=== PATIENT | male | born 1945 | race Caucasian/White ===

== ENCOUNTER → 2017-09-01 11:40 | Outpatient (CLI) | payer MEDICARE, OTHER, SELFPAY ==
--- NOTE | 2017-09-01 11:44 | RAD_ITS ---
STUDY: X-RAY - SACROILIAC JOINTS REASON FOR EXAM: Male, 71 years old. Pain TECHNIQUE: 3 view(s) of the sacroiliac joints were obtained. COMPARISON: None. FINDINGS: Normal bilateral sacroiliac joints. Normal visualized sacral ala and sacrum. Normal visualized iliac bones. Normal visualized soft tissue structures. RAD/S-I Jts 3 or More Views IMPRESSION: Normal x-ray examination of the bilateral sacroiliac joints. Electronically Signed: Olivier Dugan DO at 23:57 EDT , Service support ,
--- NOTE | 2017-09-01 11:44 | RAD_ITS ---
STUDY: X-RAY - PELVIS AND LEFT HIP REASON FOR EXAM: Male, 71 years old. Pain TECHNIQUE: Radiological exam, hip, unilateral, with pelvis when performed; 2 or 3 views. COMPARISON: None. FINDINGS: There is a non-specific bowel gas pattern. Normal visualized soft tissue structures. Normal bilateral iliac wings, sacroiliac joints and visualized sacrum. Normal bilateral superior and inferior pubic rami. Normal pubic symphysis. Normal bilateral ischial tuberosities. Normal visualized femoral head. Normal acetabulum. Normal hip joint. RAD/Hip 2-3 Views with Pelvis IMPRESSION: Normal x-ray examination of the pelvis and hip. Electronically Signed: Olivier Dugan DO at 23:55 EDT , Service support ,
--- NOTE | 2017-09-01 11:44 | RAD_ITS ---
STUDY: X-RAY - LUMBAR SPINE REASON FOR EXAM: Male, 71 years old. Pain TECHNIQUE: 5 view(s) of the lumbar spine were obtained. COMPARISON: MRI 03/04/2017 FINDINGS: Normal lumbar lordosis. There is no substantial scoliosis. There is a normal alignment of the vertebrae. Normal vertebral bodies and endplates. Degenerative disc disease L5-S1. Posterior bilateral pedicle screws at L5-S1. The soft tissue structures are unremarkable. RAD/L/S Spine Min 4 Views IMPRESSION: No fracture. Normal lordosis. Degenerative disc disease L5-S1. Electronically Signed: Olivier Dugan DO at 23:58 EDT , Service support ,
== END ==
PROVIDERS: Family Provider Internal Medicine; PCP Internal Medicine; Visit Provider Internal Medicine
DX: M53.3 Sacrococcygeal disorders, not elsewhere classified (principal); M48.062 Spinal stenosis, lumbar region with neurogenic claudication; M51.37 Other intervertebral disc degeneration, lumbosacral region; M25.552 Pain in left hip
CPT/HCPCS: 71130; 72110; 72202; 73502

== ENCOUNTER → 2017-12-27 09:00 | Outpatient (CLI) | payer MEDICARE, OTHER, SELFPAY ==
[2017-12-27 10:00] LABS: AST(SGOT) 25 U/L (15-37); Alanine Aminotransfer ALT/SGPT 40 U/L (16-61); Alkaline Phosphatase 80 U/L (45-117); Bilirubin, Direct 0.16 mg/dL (0.00-0.30); Cholesterol 150 mg/dL (200); Globulin 3.5 g/dL (2.2-4.2); High Density Lipoprotein 60 mg/dL; Protein, Total 7.5 g/dL (6.4-8.2); Triglycerides 128 mg/dL; Very Low Density Lipoprotein 26 mg/dL (5-40)
== END ==
PROVIDERS: Family Provider Internal Medicine; PCP Internal Medicine; Visit Provider Nurse Practitioner Family
DX: E78.5 Hyperlipidemia, unspecified (principal); I25.111 Atherosclerotic heart disease of native coronary artery with angina pectoris with documented spasm
CPT/HCPCS: 36415; 80061; 80076

== ENCOUNTER → 2018-05-31 06:51 | Outpatient (CLI) | payer MEDICARE, OTHER, SELFPAY ==
--- NOTE | 2018-05-31 10:29 | STRESSREP ---
Stress Test Report Pharmacologic myocardial perfusion stress test. 72-year-old man with a history of coronary artery disease status post angioplasty and stenting 15 years ago. Medications: Metoprolol rosuvastatin fosinopril amlodipine baby aspirin. Stress protocol: Resting EKG demonstrates normal sinus rhythm with a rate of 72 bpm normal intervals are noted resting blood pressure is 154/84 mmHg. 0.4 mg of regadenoson was infused per usual protocol followed by rapid intravenous saline flush injection continuous EKG monitoring was performed. The maximum heart rate attained was 102 bpm which was 68% of maximum predicted heart rate the maximum workload was 1 metabolic equivalent. There were no ST or T wave changes noted to suggest abnormal flow reserve. Resting blood pressure was 154/84 final blood pressure was 150/80 mmHg. Myocardial perfusion protocol. 12.0 mCi of technetium 99m sestamibi was injected at rest. 0.4 mg of regadenoson was infused per usual protocol. At peak infusion 34.6 mCi of technetium 99m sestamibi was injected stress images were obtained stress and rest images were reconstructed and compared in the short axis vertical long and horizontal long axis. Gated images were also obtained Perfusion SPECT analysis: Review of the stress images demonstrate normal uptake of tracer noted in all areas of the myocardium. The resting images similarly demonstrate normal uptake of tracer noted in all areas of the myocardium. No areas of reversibility are noted suggest ischemia no previous infarct is noted. Gated SPECT analysis: The gated ejection fraction is noted to be 70%. Conclusion: Normal pharmacologic myocardial perfusion stress test. Preserved ejection fraction.
--- OUTSIDE RECORDS SUMMARY | 2018-09-01 11:26 | XMS RPT_ITS | Continuity of Care Document ---
:1945 Author Organization [facility] Address [address] [place] [address] Phone Care Team Providers Name Role Phone Angela Murphy DO Unavailable Pauline Beltran Unavailable Unavailable GEORGE Miranda Unavailable Unavailable Chelsey Duckworth Unavailable Unavailable Unavailable Unavailable Problems Name Dates Details Annual Medicare Physical WITH abnormal findings (Renamed from Encounter for general adult medical examination with abnormal findings) (Z00.01, V70.0) Status: Active back sx Comments: 07/23 Status: Active BMI 25.0-25.9,adult (Z68.25, V85.21) Status: Active BMI 26.0-26.9,adult (Z68.26, V85.22) Status: Active BMI 30.0-30.9,adult (Z68.30, V85.30) Status: Active CLAUDICATION Comments: from lumbar- had mri- did PT Status: Active Coronary artery disease (I25.10, 414.00) Status: Active Degenerative lumbar spinal stenosis (M48.061, 724.02) Status: Active Displacement of lumbar intervertebral disc without myelopathy (M51.26, 722.10) Status: Active Dysuria (R30.0, 788.1) Status: Active Encounter for Medicare annual wellness exam (Z00.00, V70.0) Status: Active Encounter for screening for malignant neoplasm of colon (Renamed from Special screening for malignant neoplasms, colon) (Z12.11, V76.51) Comments: scope 2014-- no cologard this yr with upcoming back surgery -- will do stool cards Status: Active Exhaustion (R53.83, 780.79) Comments: stress ? chronic pain?- cv related? 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) Status: Active Heliobactor Pylori + Status: Active Hip pain, left (M25.552, 719.45) Status: Active History of myocardial infarction (I25.2, 412) Comments: 2002-- then stent placmeent 2003 Status: Active History of tobacco abuse (Z87.891, V15.82) Comments: 30 yr history with 1.5 packs a day Status: Active Hyperlipidemia, unspecified (E78.5, 272.4) Status: Active Hypertension with heart disease (I11.9, 402.90) Status: Active Immunization Hx: DTAP 10/22/08 (Renamed from DTAP 10/22/08) Status: Active Low back pain potentially associated with radiculopathy (M54.5, 724.2) Status: Active Lumbar stenosis with neurogenic claudication (M48.062, 724.03) Comments: s/p discetomy and fusion by Dr Vera-- plates and screwsclinically i feel he has failed back surgery -- refer to renea which dr Vera already did(08/29)-- complicated by claudication from common iliac s --- so not sure all- failed back surgery?-- candidate for block?-- and would that block pain from all-types of pain not just nerve and MS etiology from back but also vasucular Status: Active Memory impairment (R41.3, 780.93) Comments: no meds to start prior to surgery so will do nutrition and read BYB book Status: Active Need for prophylactic vaccination and inoculation against influenza (Renamed from Need for immunization against influenza) (Z23, V04.81) Status: Active Non-smoker (Z78.9, V49.89) Status: Active Other intervertebral disc degeneration, lumbar region (M51.36, 722.52) Status: Active Other symptoms involving cardiovascular system (R09.89, 785.9) Comments: asa daily and cta is ok nonivnasive and risk factor following Status: Active Peripheral vascular disease (I73.9, 443.9) Comments: h/o fem/ fem bypass but no stenoiss - saw dr cooper 2017--- fem fem grafts open-- common iliacs occluded adn buttock area is getting flow from collaterals in fem area -- left sided buttock pain is prob claudication but didnt tolerate pletal and didnt affect pain clinically anyway so rec to stop it - no surgical intervention options at this time-- palpable pulses -- Amauri following--dr baugh following carotids as well Status: Active Pre-operative exam (Renamed from Encounter for pre-operative examination) (Z01.818, V72.84) Comments: requested by Dr Vera Status: Active Sacroiliac pain (M53.3, 724.6) Status: Active Screening for prostate cancer (Z12.5, V76.44) Status: Active Sebaceous cyst (L72.3, 706.2) Status: Active SLEEP DISORDER, NOS (307.40) Status: Active Unspecified Diagnosis Status: Active Unspecified Diagnosis Status: Active VASCULAR DISEASE, NOS (459.9) Comments: last carotids 01/25 Status: Active Medications Name Dates Details AMLODIPINE BESYLATE, 10MG (Oral Tablet) 1 Tablet bid for 90 days Refills: 0 Ordered:23-May-2012 Earl Murphy DO, DO, Kathleen Start : 23-May-2012 Active Aspirin 81 MG Oral Tablet Chewable 1 daily (81 MG) Active Fosinopril Sodium 20 MG Oral Tablet 1 qd (20 MG) Active Gabapentin 600 MG Oral Tablet 1 (one) Tablet tid for 0 days Quantity: 90 {Tablet} Refills: 2 Ordered:13-May-2017 Earl Murphy DO, DO, Kathleen Start : 13-May-2017 Active Comments:ninetyusually gets from [facility] Metoprolol Tartrate 25 MG Oral Tablet 1 bid (25 MG) Active Multivitamin Adult Oral Tablet Chewable 1 daily Active Rosuvastatin Calcium 10 MG Oral Tablet 1 qd (10 MG) Active ALTACE, 2.5MG (Oral Capsule) 1 QD for 0 days Refills: 0 Ordered:14-Nov-2007 Lori Amos End : 07-Apr-2007 Inactive BIAXIN XL, 500MG (Oral Tablet Extended Release 24 Hour) 2 (two) Tablet ER 24HR Daily for 7 days Quantity: 14 {Tablet_ER_24HR} Refills: 0 Ordered:14-Oct-2006 Lori Amos Start : 14-Oct-2006 End : 01-Mar-2007 Inactive CEFDINIR, 300MG (Oral Capsule) 1 (one) Capsule bid for 7 days Quantity: 14 {Capsule} Refills: 0 Ordered:12-Oct-2014 Earl Murphy DO, DO, Kathleen Start : 12-Oct-2014 End : 19-Oct-2014 Inactive Cipro 500 MG Oral Tablet 1 (one) Tablet bid for 14 days Quantity: 28 {Tablet} Refills: 0 Ordered:30-Dec-2015 Earl Murphy DO, DO, Kathleen Start : 30-Dec-2015 End : 13-Jan-2016 Inactive Crestor 10 MG Oral Tablet 1 Tablet QD for 0 days Refills: 0 Ordered:26-May-2018 Pauline Beltran Start : 04-Jun-2008 End : 26-May-2018 Inactive DOXYCYCLINE HYCLATE, 100MG (Oral Capsule) 1 (one) Capsule bid for 14 days Quantity: 28 {Capsule} Refills: 0 Ordered:07-Feb-2009 Julia MCKENZIE Noris Hurtado Start : 07-Feb-2009 End : 26-Mar-2009 Inactive FLECTOR, 1.3% (Transdermal Patch) 1 Patch on 12 hrs off 12 for 4 days Refills: 0 Ordered:04-Nov-2011 Julia MCKENZIE Noris Hurtado Start : 30-Oct-2011 End : 03-Nov-2011 Inactive FOSINOPRIL SODIUM, 10MG (Oral Tablet) 1 qd for 0 days Refills: 0 Ordered:23-May-2012 Franchesca Miranda LPN End : 23-May-2012 Inactive LEVAQUIN, 500MG (Oral Tablet) 1 Tablet qd for 11 days Quantity: 11 {Tablet} Refills: 0 Ordered:16-Sep-2009 Earl Murphy DO, DO, Kathleen Start : 16-Sep-2009 End : 27-Sep-2009 Inactive MEDROL (LUIS EDUARDO), 4MG (Oral Tablet) 1 Tablet TAD for 0 days Quantity: 1 {Package(s)} Refills: 0 Ordered:10-Nov-2011 Stephania Reed LPN Start : 26-Oct-2011 End : 10-Nov-2011 Inactive Comments:wean 28mg to 4mg over 7days NAPROSYN, 500MG (Oral Tablet) 1 (one) Tablet BID for 0 days Quantity: 60 {Tablet} Refills: 3 Ordered:23-May-2012 Franchesca Miranda LPN Start : 10-Nov-2011 End : 23-May-2012 Inactive Comments:with food PredniSONE 20 MG Oral Tablet 1 (one) Tablet qd for 0 days Quantity: 30 {Tablet} Refills: 0 Ordered:24-Nov-2016 Chelsey Duckworth Start : 21-Oct-2016 End : 24-Nov-2016 Inactive TEMAZEPAM, 15MG (Oral Capsule) 1 (one) Capsule QHS / HS for 0 days Quantity: 30 {Capsule} Refills: 3 Ordered:14-Nov-2007 Franchesca Miranda LPN Start : 14-Nov-2007 End : 22-Oct-2008 Inactive VICODIN ES, 7.5-750MG (Oral Tablet) 1 Tablet q8hrs prn pain for 0 days Quantity: 30 {Tablet} Refills: 0 Ordered:23-May-2012 Franchesca Miranda LPN Start : 30-Oct-2011 End : 23-May-2012 Inactive Comments:thirty ZETIA, 10MG (Oral Tablet) 1 QD for 0 days Refills: 0 Ordered:16-May-2008 Franchesca Miranda LPN End : 16-May-2008 Inactive FEXOFENADINE HCL, 180MG (Oral Tablet) 1 (one) Tablet Daily for 0 days Refills: 0 Ordered:14-Nov-2007 Lori Amos Start : 14-Oct-2006 End : 07-Apr-2007 Discontinued Lisinopril 20 MG Oral Tablet 1 Tablet qd for 90 days Refills: 0 Ordered:26-May-2018 Pauline Beltran Start : 23-May-2012 End : 26-May-2018 Discontinued LORazepam 1 MG Oral Tablet 1 (one) Tablet Tablet one hour prior to imaginig for 0 days Quantity: 1 {Tablet} Refills: 0 Ordered:26-May-2018 Pauline Beltran Start : 26-Feb-2017 End : 26-May-2018 Discontinued Comments:one PROCARDIA, 20MG (Oral Capsule) 1 1/2 Capsule QD for 0 days Refills: 0 Ordered:14-Nov-2007 Lori Amos Start : 07-Apr-2007 End : 07-Apr-2007 Discontinued Allergies and Adverse Reactions Name Dates Details No Known Drug Allergies (Allergy) Onset: 23-May-2012 Status: Active Tiazac (Allergy) Status: Active Comments: cough Past Medical History Name Dates Details Abnormal urine (R82.90, 791.9) Status: Inactive as of 15-Jan-2016 Acute prostatitis (N41.0, 601.0) Status: Inactive as of 15-Jan-2016 ANEURYSM, NOS (442.9) Comments: inter atrial septum with trivial rt to lt inter atrial shunt, possible PFO Status: Inactive as of 15-Jan-2016 Cough (R05, 786.2) Comments: Considering all differentials- denies heartburn or postnasal- considering possible allergies d/t the season, bronchitis but generally feels feels well and it is not bothering his sleep. Is on an Reed and will need to consider if persists, no asthma symtpoms- cough is not worse at noc. If persists pt to return.Pt also notes throat discomfort with cough if not better after cough pt to return for further evaluation.Only to take script if worsen over the weekend. Status: Inactive as of 22-Oct-2008 Fatigue (R53.83, 780.79) Comments: prob related to sleep deprivation -- Status: Resolved as of 22-Oct-2008 Folliculitis (L73.9, 704.8) Status: Inactive as of 15-Jan-2016 Gastritis, acute (K29.00, 535.00) Comments: Chronic, interactive3 metaplasia on biopsy Status: Inactive as of 15-Jan-2016 Heel pain (M79.673, 729.5) Status: Inactive as of 15-Jan-2016 Hematuria (R31.9, 599.7) Status: Inactive as of 22-Oct-2008 MYOCARDIAL INFARCTION, NOS (410.90) Comments: Non Q wave Status: Inactive as of 15-Jan-2016 Neoplasm of uncertain behavior of skin (D48.5, 238.2) Status: Inactive as of 15-Jan-2016 Pain in unspecified hip (M25.559, 719.45) Comments: edema in femoral neck, small joint effusion/transient osteoporosis,sending to [facility] Status: Inactive as of 15-Jan-2016 Pain of left lower extremity (M79.605, 729.5) Status: Resolved as of 13-May-2017 Peptic ulcer disease (K27.9, 533.90) Status: Inactive as of 28-Jan-2015 PROSTATITIS NOS (601.9) Status: Inactive as of 15-Jan-2016 Procedures Procedure Dates Details Back sx Completed Comments: Date Value Details 06-Jan-2018 Cardiology Visit Report Result: Comments: See Note; NOTES: [facility] [address] [place] [address] OFFICE VISIT Date of Service: 01/06/18 MR#: [id number] Acct: [id number] Name: KAREN BRYAN Rep #: [id number] : 1945 Provider: Mau Palencia MD Age/Sex: 72/M Location: [facility] Status: Signed HPI HPI Chief Complaint: Routine f/u Details: MERRICK BRYAN, is a 72 M who is returnin g for followup of his coronary artery disease status post angioplasty and drug- eluting stenting of his diagonal with a 2.5 X12 taxus, at [facility] on 09/21/03, with associated documente d coronary vasospasm. his remaining coronary arteries appear to be free of significant disease. Since his last visit Mr. Bryan has had no chest, neck, jaw, or arm discomfort to suggest angina, inc rease in shortness of breath or dyspnea on exertion, paroxysmal nocturnal dyspnea, orthopnea, or pedal edema, palpitations, near syncope, or syncope.His anginal equivalent is actually bilateral arm pain below his elbows, knees had none of this. patient underwent a sleep study previously, which was abnormal for ALTHEA. The patient has been using his CPAP however over the last several months it appears hi s headgear is no longer fitting as well. Unfortunately, he is no longer using it. In April 2013, the patient underwent a treadmill/echocardiogram in which he went 7 minutes 52 seconds on a regular B ruce, had no angina, EKG or echocardiographic changes consistent with ischemia. In addition his main complaint today is left lower extremity claudication symptoms, [facility] well as Dr. Baugh at [facility]. In 1998 the patient apparently underwent what sounds like an right to left fem-fem bypass, although I do not have those records in front of me. Patient has an appointment with Dr. Baugh on 05/31/2015 to evaluate this with a CT scan. Patient saw Dr. Baugh had a CT scan of his lower extremities, and no plans for any catheterizatio n at this time. From a cardiac standpoint, he denies any exertional chest pain, angina or shortness of breath. He is taking and tolerating his medicines well. he appears to be tolerating his Lipitor we ll. He exercises regularly mostly by swimming in the summertime. Patient's main complaint today is recurrent lower extremity claudication symptoms. In August 2017 he underwent PVRs at an outside [facility], and was referred to the [facility] for repeat lower extremity angiography. He underwent a lower extremity angiography and no intervention was performed. Prior to that the patient has had 2 back surgeries for presumed pinched nerve, neither one of which have resolved his symptoms. The patient does not have pain when he sits down or stands up, but develops lower extremity claudication symptoms similar to but of lesser intensity to his claudication prior to his femorofemoral bypass. He has not seen Dr. Baugh or Dr. Tamayo in the recent past. In addition he complains of significant tiredness throughout the da y. In our office today's blood pressure is 100/50, and pulse is 60 and regular. His physical exam is as below. His lipids as of 06/22/15 show an HDL of 51 and LDL of 59. His lipids as of 06/30/17 show an HDL of 57 and an LDL of 56. His lipids as of 12/27/17 show an HDL of 60 and an LDL of 60 Intake Vital Signs01/06/18 Height 5 ft 10 in 01/06/18 Weight: 174 lb 01/06/18 Body Mass Index (BMI) 25.0 8 Blood Pressure 100/50 Intake Visit Reasons: 6 M FU Allergies atorvastatin [From Lipitor] Adverse Reaction (Intermediate, Verified 01/06/18 15:14) Myalgias Medications Amlodipine [Norvasc] 5 mg P O BID 11/03/17 [History Confirmed 01/06/18] Colestipol Tablet [Colestid Tablet] 1 gm PO DAILY 04/16/17 [History Confirmed 01/06/18] Fosinopril Sodium 20 mg PO DAILY 04/16/17 [History Confirmed 01/06/18] Gabapentin [Neurontin] 600 mg PO QHS 04/16/17 [History Confirmed 01/06/18] Multivitamin [Daily Multiple Vitamin] DAILY 04/16/17 [History Confirmed 01/06/18] Rosuvastatin Calcium [Crestor] 10 mg PO QHS 04/16/17 [History Confirmed 01/06/18] nitroglycerin 0.4 mg sublingual tablet 0.4 mg SUBLINGUAL Q5-15M PRN 07/02/17 [History Confirmed 01/06/18] aspirin 81 mg tablet,delayed release 81 mg PO QDAY 8 [History Confirmed 01/06/18] cilostazol 100 mg tablet 100 mg PO BID #60 tab 01/06/18 [Rx Confirmed 01/06/18] metoprolol tartrate 25 mg tablet 12.5 mg PO BID tab 01/06/18 [History Confirmed 01/06/18] [facility] Medical History Peripheral arterial disease (Chronic) History of non-ST elevation myocardial infarction (NSTEMI) (Chronic) Prinzmetal angina (Chronic) A therosclerotic heart disease of andreafski 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) Hypertension (Chronic) Hyperlipidemia (Chronic) Overweight (BMI 25.0-29.9) (Chronic) Chronic b ack pain (Chronic) Lumbar stenosis (Chronic) Surgical History S/P femoral-femoral bypass surgery (Chronic) History of left heart catheterization (Chronic) Family History Father , of cancer Myocardial infarction, Onset Age: 70 Cancer Mother , age 66 Bleeding in brain due to brain aneurysm Broth er Myocardial infarction, Onset Age: 62 CAD (coronary artery disease) Social History Smoking Status: Former smoker how long ago did patient quit smokin ROS Const Const: Negative for fatig ue, weakness, body ache, fever(s), headache(s), chills, frequent falls, night sweats, daytime sleepiness, difficulty sleeping, excessive sweating, weight gain, weight loss, increased appetite, poor appe tite, anorexia or other Eyes Eyes: Negative for blind spots, loss of peripheral vision, transient loss of vision, blurry vision, change in vision, double vision, floaters, tunnel vision or other ENT ENT : Negative for headache(s), dizziness, hearing loss, tinnitus, Nosebleed/epistaxis, balance problems, post nasal drip, lip swelling, tongue swelling, bleeding gums, hoarseness, neck pain, dry mouth or o ther Cardio Chest Pain: No Palpitations: No Edema: None Muscle aches with walking: Bilateral (Hx Hx FEM/FEM bypass, PAD, seeing pain management) Resp Respiratory: Negative for SOB with activity, SOB at rest, SOB orthopnea\SOB lying down, Coughing up blood/hemoptysis, chest congestion, pain on inspiration, snoring, stridor, wheezing, crackles, paroxysmal nocturnal dyspnea or other GI GI: Negative nause a, vomiting, heartburn, constipation, belching, bloating, cramping, vomiting blood/hematemesis, bright, red blood in stools, black,tarry stools, loose stools, Difficulty Swallowing or other : Negat mary for hematuria, frequent nighttime urination/ nocturia, erectile dysfunction or abnormal vaginal bleeding Musc Musc: Positive for muscle aches/ myalgia (leg aches with walking, severe); negative for balance problems, muscle weakness or joint pain Skin Skin: Negative redness, non- healing lesions, rash, unusual bruising, skin ulcer, wounds, jaundice or other Neuro Neuro: Negative for weakness, headac he(s), frequent falls, blurry vision, double vision, dizziness, lightheadedness, near syncope, syncope, orthostatic symptoms, confusion, memory loss, restless legs, vertigo, seizures, lack of coordinati on or other Artie Hematologic/Lymphatic: Negative for easy bleeding, easy bruising, enlarged lymph nodes or other Endo Endo: Negative for fatigue, excessive sweating, cold intolerance, heat intolerance, flushing, increased thirst/drinking, increased hunger, hair loss, hair growth or other Psych Psych: Negative for anxiety, depression, thoughts of harming anyone, thoughts of harming yourself, visual vandana lucinations, panic attacks or audible hallucinations Allergy Allergy/Immunology: Negative for lip swelling, Negative for tongue swelling, Negative for rash, Negative for throat swelling, Negative for hi ves Cardiology Exam Const Appearance: cooperative, healthy appearing and no acute distress Nutritional Appearance: well nourished Orientation: alert, oriented x3 and oriented to person Head Head: norm al to inspection, atraumatic and normocephalic Nose: external nose normal Face and Sinus: face symmetric Mouth: oral mucosae normal Eyes General: appearance normal, both eyes and all related structures Eyelids: eyelids normal Conjunctivae: conjunctivae normal Pupils: PERRL and normal by confrontation EOM: EOM intact bilaterally Neck Neck: normal visual inspection and full ROM Carotids: normal carotid upstroke Chest Chest inspection: normal inspection of the chest Auscultation: Bilateral: Clear to Auscultation Cardio Palpation: normal PMI Rate: regular rate Rhythm: regular rhythm Heart sounds: S1 nor mal and S2 normal GI GI: normal to inspection, no hepatosplenomegaly and bowel sounds present Neuro General: alert, oriented x3, awake, CN's II-XI intact bilaterally and moves all extremities Skin Skin: no rashes or lesions noted Extremities Pulses: Normal: Right Femoral Pulse, Left Femoral Pulse, Right Dorsalis Pedis Pulse, Left Dorsalis Pedis Pulse, Right Posterior Tibial Pulse, Left Posterior Tibia l Pulse, Right Radial Pulse, Left Radial Pulse Lower Extremity Edema: None: Bilateral Psych Psychological: normal affect Assessment AND Plan 1. Peripheral arterial disease I73.9 Plan 1. Peripheral art erial disease: The patient has known peripheral arterial disease and underwent right to left femorofemoral bypass surgery by Dr. Tamayo in the distant past. The patient has recurrent claudication type sym ptoms, with abnormal PVRs requiring lower extremity angiogram at the [facility]. I recommended the patient to get a copy of his lower extremity angiogram from the [facility], and seek a second opinion with either Dr. Elmo robison at [facility] or Dr. Tamayo who performed the surgery in the first place. In the meantime I recommended he start Pletal 100 mg p.o. twice daily for claudication symptoms. We will hold off on adding Plavix at this time. Continue baby aspirin. 2. Atherosclerotic heart disease of andreafski coronary artery with angina pectoris with documented spasm I25.111 PTCA with stent of [place] of firts major dx 09/21/2003 Plan 2. Coronary artery disease: Patient denies any exertional anginal symptoms at this time. He does complain of significant tiredness which is most likely a result of his b eta-jose eduardo. Recommend decreasing his Lopressor to 12.5 mg p.o. twice daily, continuing baby aspirin, and fosinopril.. 3. Hyperlipidemia, unspecified hyperlipidemia type E78.5 Plan 3. Hyperlipidemia: H is LDL and HDL cholesterol are at goal. Continue Crestor. 4. Return office in six-months. This note was generated using a voice recognition system and there may be incorrect words, spelling or punctuat ion that were not noted when reviewing the office note prior to saving. Plan Detail Other Medications New: cilostazol administer at least 30 minutes before or 2 hours after [id number] mg PO BID ast and dinner Changed: Follow Up +6M (Talha) Coding Level of Care Code Off vis,est,level 3 Diagnoses Peripheral arterial disease I73.9 Atherosclerotic heart disease of andreafski coronary artery with angina p ectoris with documented spasm I25.111 Hyperlipidemia, unspecified hyperlipidemia type E78.5 Hyperlipidemia type: unspecified Coding Level of Care Code Off vis,est,level 3 Diagnoses Peripheral arteria l disease I73.9 Atherosclerotic heart disease of andreafski coronary artery with angina pectoris with documented spasm I25.111 Hyperlipidemia, unspecified hyperlipidemia type E78.5 Hyperlipidemia type: unsp ecified 01/06/18 1534 <Electronically signed by Mau Palencia MD> Date Mau Palencia MD Cosign Signature: Date (if applicable) CC: Angela Murphy DO 01-Sep-2017 Hip 2-3 Views with Pelvis Result: Comments: See Note; NOTES: [facility] Imaging Services [address] [place] [address] Hip 2-3 Views with Pelvis MR#: [id number] Acct: [id number] Name: MERRICK BRYAN Rep #: [id number] : 1945 M 71 From: Olivier Dugan PCP: Angela Murphy DO Status: REG CLI Study: Hip 2-3 Views with Pelvis Date of Exam: 09/01/17 Exam# [id number] Ordering Dr: Angela Murphy DO STUDY: X-RAY - PELVIS AND LEFT HIP REASON FOR EXAM: Male, 71 years old. Pain TECHNIQUE: Radiological exam, hip, unilateral, with pelvis when performed; 2 or 3 views. COMPARISON: None. FINDINGS: There is a non-specific bowel gas pattern. Normal visualized soft tissue structures. Normal bilateral iliac wings, sacroiliac joints and visualized sacrum. Normal bilateral lloyd perior and inferior pubic rami. Normal pubic symphysis. Normal bilateral ischial tuberosities. Normal visualized femoral head. Normal acetabulum. Normal hip joint. RAD/Hip 2-3 Views with Pelvis IMPRESSION: Normal x-ray examination of the pelvis and hip. Electronically Signed: Olivier Dugan DO at 23:55 EDT , Service supp ort , CC: Angela Murphy DO Trauma Nurse: Signed 01-Sep-2017 L/S Spine Min 4 Views Result: Comments: See Note; NOTES: [facility] Imaging Services [address] [place] [id number] L/S Spine Min 4 Views MR#: [id number] Acct: [id number] Name: MERRICK BRYAN Rep #: [id number] : 1945 M 71 From: Olivier Dugan PCP: Angela Murphy DO Status: REG CLI Study: L/S Spine Min 4 Views Date of Exam: 09/01/17 Exam# [id number] Ordering Dr: Angela Murphy DO STUDY: X-RAY - LUMBAR SPINE REASON FOR EXAM: Male, 71 years old. Pain TECHNIQUE: 5 view(s) of the lumbar spine were obtained. COMPARISON: MRI 03/04/2017 FINDINGS: Normal lumbar lordosis. There is no substantial scoliosis. There is a normal alignment of the vertebrae. Normal vertebral bodies and endplates. Degenerative disc disease L5-S1. Posterior bilateral pedicle screws at L5-S1. The soft tissue structures are unremarkable. RAD/L/S Spine Min 4 Views IMPRESSION: No fracture. Normal lordosis. Degenerative disc diseas e L5-S1. Electronically Signed: Olivier Dugan DO at 23:58 EDT , Service support , CC: Angela Murphy DO Trauma Nurse: Signed 01-Sep-2017 S-I Jts 3 or More Views Result: Comments: See Note; NOTES: [facility] Imaging Services [address] [place] [id number] S-I Jts 3 or More Views MR#: [id number] Acct: [id number] Name: MERRICK BRYAN Rep #: [id number] : 1945 71 From: Olivier Dugan PCP: Angela Murphy DO Status: REG CLI Study: S-I Jts 3 or More Views Date of Exam: 09/01/17 Exam# [id number] Ordering Dr: Angela Murphy DO STUDY: X-R AY - SACROILIAC JOINTS REASON FOR EXAM: Male, 71 years old. Pain TECHNIQUE: 3 view(s) of the sacroiliac joints were obtained. COMPARISON: None. FINDINGS: Normal b ilateral sacroiliac joints. Normal visualized sacral ala and sacrum. Normal visualized iliac bones. Normal visualized soft tissue structures. R AD/S-I Jts 3 or More Views IMPRESSION: Normal x-ray examination of the bilateral sacroiliac joints. Electronically Signed: Olivier Dugan DO at 23:57 EDT , Service support [phone], CC: Angela Murphy DO Trauma Nurse: Signed 06-Jul-2017 Cardiology Visit Report Result: Comments: See Note; NOTES: [facility] [address] [place] [address] OFFICE VISIT Date of Service: 07/06/17 MR#: [id number] Acct: [id number] Name: KAREN BRYAN Rep #: [id number] : 1945 Provider: Mau Palencia MD Age/Sex: 71/M Location: [facility] Status: Signed HPI 6 M FU: Chief Complaint: Routine F/u Details: HPI Referring physician: Dr. Angela sanders It was a pleasure seeing your patient, Merrick Bryan who is returning for followup of his coronary artery disease status post angioplasty and drug- eluting stenting of his diagonal with a 2.5 X1 2 taxus, at [facility] on 09/21/03, with associated documented coronary vasospasm. his remaining coronary arteries appear to be free of significant disease. Since his last visit Mr. Iasbel whitehead has had no chest, neck, jaw, or arm discomfort to suggest angina, increase in shortness of breath or dyspnea on exertion, paroxysmal nocturnal dyspnea, orthopnea, or pedal edema, palpitations, n ear syncope, or syncope.His anginal equiivalent is actually bilateral arm pain below his elbows, knees had none of this. patient underwent a sleep study previously, which was abnormal for ALTHEA. The michael ent has been using his CPAP however over the last several months it appears his headgear is no longer fitting as well. Unfortunately, he is no longer using it. In April 2013, the patient underwent a treadmill/echocardiogram in which he went 7 minutes 52 seconds on a regular Alejandro, had no angina, EKG or echocardiographic changes consistent with ischemia. In addition his main complaint today is lef t lower extremity claudication symptoms, which have been managed by both the [facility] as well as Dr. Baugh at [facility]. In 1998 the patient apparently underwent what sounds like an right to left fem-fem bypass, although I do not have those records in front of me. Patient has an appointment with Dr. Baugh on 05/31/2015 to evaluate this with a CT scan. Patient saw Dr. Suárez ht had a CT scan of his lower extremities, and no plans for any catheterization at this time. 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 From a cardiac standpoint, he denies any exertional chest pain, angina or shortness of breath. He is taking and tole rating his medicines well. he appears to be tolerating his Lipitor well. He exercises regularly mostly by swimming in the summertime. In our office today's blood pressure is 140/70, and pulse is 76 and regular. His physical exam is as below. His lipids As of 06/22/15 show an HDL of 51 and LDL of 59. His lipids as of 06/30/17 show an HDL of 57 and an LDL of 56. Intake Vital Signs07/06/17 Height 5 ft 10 in 07/06/17 Weight: 183 lb 07/06/17 Body Mass Index (BMI) 26.2 07/06/17 Blood Pressure 140/70 Intake Visit Reasons: 6 M FU Allergies atorvastatin [From Lipitor] Adverse Reaction (Intermediate, Verifi ed 07/02/17 08:37) Myalgias Medications Amlodipine [Norvasc] 5 mg PO BID 04/16/17 [History Confirmed 07/02/17] Aspirin E.C. [Ecotrin] 325 mg PO DAILY@0800 04/16/17 [History Confirmed 07/02/17] Colest ipol Tablet [Colestid Tablet] 1 gm PO DAILY 04/16/17 [History Confirmed 07/06/17] Fosinopril Sodium 20 mg PO DAILY 04/16/17 [History Confirmed 07/02/17] Gabapentin [Neurontin] 600 mg PO QHS 04/16/17 [Hi story Confirmed 07/06/17] Multivitamin [Daily Multiple Vitamin] DAILY 04/16/17 [History Confirmed 07/02/17] Rosuvastatin Calcium [Crestor] 10 mg PO QHS 04/16/17 [History Confirmed 07/02/17] nitroglyceri n 0.4 mg sublingual tablet 0.4 mg SUBLINGUAL Q5-15M PRN 07/02/17 [History Confirmed 07/02/17] metoprolol tartrate 25 mg tablet 25 mg PO BID tab 07/06/17 [History Confirmed 07/06/17] Ejection fraction %: 65 to 70 [facility] Medical History Peripheral arterial disease (Chronic) History of non-ST elevation myocardial infarction (NSTEMI) (Chronic) Prinzmetal angina (Chronic) Atherosclerotic heart disease of andreafski 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) Hypertension (Chronic) Hyperlipidemia (Chronic) Overweight (BMI 25.0-29.9) (Chronic ) Chronic back pain (Chronic) Lumbar stenosis (Chronic) Surgical History S/P femoral-femoral bypass surgery (Chronic) History of left heart catheterization ( Chronic) Family History Father , of cancer Myocardial infarction, Onset Age: 70 Cancer Mother , age 66 Bleeding in brain due to brain ane urysm Brother Myocardial infarction, Onset Age: 62 CAD (coronary artery disease) Social History Smoking Status: Former smoker how long ago did patient quit smokin ROS Const Const: Negativ e for body ache, fever(s), chills, night sweats, daytime sleepiness, difficulty sleeping, weight gain, weight loss, increased appetite, poor appetite, anorexia or other ENT ENT: Negative for balance pro blems Cardio Chest Pain: No Palpitations: Negative for Yes or No Edema: None Muscle aches with walking: None Resp Respiratory: Negative for SOB with activity, SOB at rest, SOB orthopnea\SOB lying down, Coughing up blood/hemoptysis, chest congestion, pain on inspiration, snoring, stridor, wheezing, crackles, paroxysmal nocturnal dyspnea or other GI GI: Negative nausea, vomiting, heartburn, constipation , belching, bloating, cramping, vomiting blood/hematemesis, bright, red blood in stools, black,tarry stools, loose stools, Difficulty Swallowing or other Musc Musc: Positive for joint pain (had 2 major back surgeries in March 2017); negative for muscle aches/ myalgia, muscle weakness or balance problems Cardiology Exam Const Appearance: cooperative, healthy appearing and no acute distress Nutritio nal Appearance: well nourished Orientation: alert, oriented x3 and oriented to person Head Head: normal to inspection, atraumatic and normocephalic Nose: external nose normal Face and Sinus: face symmet saulo Mouth: oral mucosae normal Eyes General: appearance normal, both eyes and all related structures Eyelids: eyelids normal Conjunctivae: conjunctivae normal Pupils: PERRL and normal by confrontation E OM: EOM intact bilaterally Neck Neck: normal visual inspection and full ROM Carotids: normal carotid upstroke Chest Chest inspection: normal inspection of the chest Auscultation: Bilateral: Clear to Aus cultation Cardio Palpation: normal PMI Rate: regular rate Rhythm: regular rhythm Heart sounds: S1 normal and S2 normal GI GI: normal to inspection, no hepatosplenomegaly and bowel sounds present Neuro G eneral: alert, oriented x3, awake, CN's II-XI intact bilaterally and moves all extremities Skin Skin: no rashes or lesions noted Extremities Pulses: Normal: Right Femoral Pulse, Left Femoral Pulse, Righ t Dorsalis Pedis Pulse, Left Dorsalis Pedis Pulse, Right Posterior Tibial Pulse, Left Posterior Tibial Pulse, Right Radial Pulse, Left Radial Pulse Lower Extremity Edema: None: Bilateral Psych Psycholog ical: normal affect Assessment AND Plan Plan 1. Coronary artery disease: No exertional anginal symptoms at this time. No indication for any additional testing. I recommended he continue his full dose aspirin for his joint aches and coronary artery disease, amlodipine, fosinopril, and Lopressor. 2. Hyperlipidemia: His LDL and HDL cholesterol are at goal. Continue Crestor. 3. Return office in 6 shyam hs. This note was generated using a voice recognition system and there may be incorrect words, spelling or punctuation that were not noted when reviewing the office note prior to saving. Medications Di scontinued: cyclobenzaprine Discontinued Reason: Pt no longer t10 mg PO TID PRN PRN Muscle Spasm aking Plan Detail Follow Up 6 Months (Talha) Coding Level of Care Code Off vis,est,level 3 8 0419 <Electronically signed by Mau Palencia MD> Date Mau Palencia MD Cosigner Signature: Date (if applicable) CC: 04-Mar-2017 Spine Lumbar W/WO Contrast Result: Comments: See Note; NOTES: [facility] Imaging Services [address] [place] [address] Spine Lumbar W/WO Contrast MR#: [id number] Acct: [id number] Name: BRYANMERRICK Renee Rep # : [id number] : 1945 M 71 From: Juvenal Darden MD PCP: Angela Murphy DO Status: REG CLI Study: Spine Lumbar W/WO Contrast Date of Exam: 03/04/17 Exam# [id number] Ordering Dr: Antolin Marcos STUDY: MRI LUMBAR SPINE WITH AND WITHOUT CONTRAST REASON FOR EXAM: Male, 71 years old. LEFT LEG PAIN POST LUMBAR SURGERY still has left leg pain after lumbar surgery 11/2016 TECHNIQUE: Standardized fat and water weighted pulse sequences were obtained in the sagittal and axial planes. 9 ml of Gadavist contrast material was administered for the contrast portion of the examination. COMPARISON: None FINDINGS: T12-L1: Normal endplates. Normal disc height, hydration and morphology. Normal bilateral facet joints. Normal central canal and bilateral lateral recesse s. Normal bilateral intervertebral neural foramina. Normal lumbar lordosis. There is no substantial scoliosis. Normal conus medullaris that terminates at the L1 level. L1-2: Endplate spondylosis. Decr eased disc height and small circumferential disc bulge. Degenerative changes of the bilateral facet joints. Mild narrowing of the central canal and bilateral intervertebral neural foramina. L2-3: Endpl ate spondylosis. Decreased disc height and small circumferential disc bulge. Degenerative changes of the bilateral facet joints. Mild narrowing of the central canal and bilateral intervertebral neural f oramina. L3-4: Endplate spondylosis. Decreased disc height and small circumferential disc bulge. Degenerative changes of the bilateral facet joints. Mild narrowing of the central canal and bilateral in tervertebral neural foramina. L4-5: Endplate spondylosis. Decreased disc height and small circumferential disc bulge. Degenerative changes of the bilateral facet joints. Mild narrowing of the central c anal and bilateral intervertebral neural foramina. L5-S1: Endplate spondylosis. Decreased disc height and small circumferential disc bulge. Degenerative changes of the bilateral facet joints. No signif icant stenosis of the central canal. Moderate bilateral intervertebral neural foramina. There is bilateral laminectomy at L5. There is enhancement of the epidural space after contrast menstruation at L5 -S1 consistent with postsurgical scarring. Normal visualized sacral ala. Normal visualized paraspinous soft tissue structures. MRI/Spine Lumba r W/WO Contrast IMPRESSION: Multilevel degenerative changes, as described above. Electronically Signed: Juvenal Darden MD at 23:36 EDT Tel , Service support , CC: Antolin Marcos; Angela Murphy DO Trauma Nurse: Signed 15-Oct-2016 Spine Lumbar (Routine) Result: Comments: See Note; NOTES: [facility] Imaging Services [address] [place] [address] Verdanataly 4d Spine Lumbar (Routine) MR#: [id number] Acct: [id number] Name: BRYANMERRICK Rep #: [id number] : 1945 70 From: Susie Castle MD PCP: Angela Murphy DO Status: REG CLI Study: Spine Lumbar (Routine) Date of Exam: 10/15/16 Exam# [id number] Ordering Dr: Angela Murphy O STUDY: MRI LUMBAR SPINE WITHOUT CONTRAST REASON FOR EXAM: Male, 70 years old. Low back pain. TECHNIQUE: Standardized fat and water weighted pulse sequences were obtained in the sagittal and axial planes. COMPARISON: MRI of the lumbar spine dated November 16, 2011. FINDINGS: T12-L1: Normal endplates. Normal disc height, signal and morphology. Normal bilateral fac et joints. Normal central canal and bilateral lateral recesses. Normal bilateral intervertebral neural foramina. There is straightening of the normal lumbar lordosis. There is no substantial scoliosis. Normal conus medullaris that terminates at the L1 level. L1-2: There are Schmorl's nodes of the endplates of L1 and L2. There is an annular disc bulge and osteophyte complex. There is mild degenerativ e arthropathy of facet joints. There is mild central acquired canal stenosis. Neural foramina are mildly narrowed without evidence for nerve impingement. L2- 3: There is moderate annular disc bulge and broad central disc protrusion. There is mild central acquired canal stenosis. There is moderate degenerative arthropathy of facet joints. The neural foramina are bilaterally narrowed without evidence fo r nerve impingement. L3-4: There is a mild disc bulge and osteophyte complex. There is moderate degenerative arthropathy of facet joints. The neural foramina are bilaterally narrowed without evidence f or nerve impingement. There is no significant central acquired canal stenosis. L4-5: There is a mild annular disc bulge and osteophyte complex. There is moderate degenerative arthropathy of facet joint s. The neural foramina are moderately narrowed without evidence for nerve impingement. There is no central acquired canal stenosis. L5-S1: There is severe narrowing of this disc with subtle irregularit y of the endplates. There is an annular disc bulge. Neural foramina are severely narrowed with apparent impingement of bilateral L5 nerve roots at the neural foramina. Normal visualized sacral ala. Im aged paraspinal soft tissues are within normal limits. MRI/Spine Lumbar (Routine) IMPRESSION: Moderately severe multilevel degenerative disc dise ase and degenerative arthropathy lumbar spine with acquired canal stenosis, neural foraminal narrowing and potential nerve impingement as described. Electronically Signed: Susie Castle MD at 15:24 EDT , Service support , CC: Angela Murphy DO Trauma Nurse: Signed 13-May-2016 Vascular Test/LEAS/UEAS Result: Comments: See Note; NOTES: [facility] Cardiovascular Services [address] [place] [address] Verdana 4d Lower Ext Art Exam w/o Exercis MR#: [id number] Acct: [id number] Name: MERRICK LYON Rep #: [id number] : 1945 70 From: Nando Chávez MD Primary Care: Angela Murphy DO Status: REG CLI Ordering Dr: Sung Baugh MD Sex: M C DATE OF SERVICE: 04/17/2016 ORD ERING PHYSICIAN: Sung Baugh M.D. INTERPRETING PHYSICIAN: Nando Chávez M.D. DIAGNOSIS: Followup for peripheral arterial disease, history of fem-fem bypass graft. INTERPRETATION: Right lower extrem ity PVRs, fairly normal pulsatile waveform from the thigh down to the calf, ankle and digits of note ____ appeared to be slightly peak waveforms noted throughout. Duplex at the ankle shows triphasic samantha w both vessels with an CLARISSA of 1.02 of the posterior tibial, 1.00 of the dorsalis pedis. Digital-brachial index mildly decreased at 0.48. Left lower extremity PVRs, again fairly normal waveform noted fr om the thigh with some peak waveforms into the calf, ankle and down through the ankle. The duplex shows triphasic flow of the posterior tibial and the dorsalis pedis with an CLARISSA of 0.86 of the posterior tibial, 0.82 of the dorsalis pedis. Digital-brachial index 0.52. On the left leg, the thigh pressure just mildly decreased, 0.9 at the low thigh and 0.92 at the calf. IMPRESSION: 1. Right lower extrem ity, no evidence of significant arterial occlusive disease with triphasic flow and ankle-brachial index of 1.02. 2. Left lower extremity with mild arterial occlusive disease with possibly some decreased inflow noted with a thigh pressure of 0.9, but maintained down with an ankle- brachial index of 0.86. Further evaluation is clinically warranted. 3. Evidence of small vessel disease with digital-brachia l index of 0.48 on the right, 0.52 on the left. Nando Chávez M.D. T: NGYUEN JOB: [id number] 05/13/16 1129 <Electronically signed by Nando Chávez MD> Date Nando Chávez MD CC: SUNG BAUGH MD; Angela Murphy DO Date Dictated: 05/06/16 1037 Date Transcribed: 05/06/16 1037 Trauma Nurse: Signed 22-Apr-2016 Carotid Duplex Ultrasound Result: Comments: See Note; NOTES: [facility] Cardiovascular Services [address] [place] [address] Carotid Duplex Ultrasound 04/17/16 0934 MR#: [id number] Acct: [id number] Name: MERRICK BHATTI Rep #: [id number] : 1945 70 From: Nando Chávez MD Attending Dr: SUNG BAUGH MD Status: REG CLI Ordering Dr: Sung Baugh MD Date: 04/17/16 Location: [facility] Sex: M C Admitted: Reason For Study: Carotid stenosis Rt. Velocities/BP Lt. Velocities/BP Prox CCA 105.0/17.6 cm/sec. Prox CCA 132.0/18.9 cm/sec. Mid CCA 104.0/11.1 cm/sec. Mid CCA 107.0/22.3 cm/sec. Dist CCA 86.2/ 16.4 cm/sec. Dist CCA 91.5/18.2 cm/sec. Prox ICA 91.5/17.6 cm/sec. Prox ICA 130.0/30.6 cm/sec. Mid ICA 96.7/18.8 cm/sec. Mid ICA 131.0/31.4 cm/sec. Dist ICA 70.4/16.4 cm/sec. Dist ICA 84.4/22.9 cm/sec. Rt. ICA/CCA = .93. Lt. ICA/CCA = 1.2. Prox ECA 249.0/30.1 cm/sec. Prox ECA 173.0/23.6 cm/sec. Rt. Vert. 83.8/18.2 cm/sec. Lt. Vert. 32.4/6.6 cm/sec. Right Extracranial There is intimal thickening but n o significant atherosclerotic plaque noted in the right common carotid artery. There is heterogeneous, irregular atherosclerotic plaque noted in the right internal carotid artery. There is heterogeneous , irregular atherosclerotic plaque noted in the right external carotid artery. Antegrade flow is noted in the right vertebral artery. Left Extracranial There is heterogeneous, irregular atherosclerotic plaque noted in the left common carotid artery. There is heterogeneous, irregular atherosclerotic plaque noted in the left internal carotid artery. There is heterogeneous, irregular atherosclerotic atiya que noted in the left external carotid artery. Antegrade flow is noted in the left vertebral artery. Procedure Carotid Duplex [address]69[address]. Exam performed in department. Interpretation Summary Mild (&#60 ;50%) stenosis right extracranial internal carotid. Mild (<50%) stenosis left extracranial internal carotid. Flow within the vertebral arteries is antegrade bilaterally. Ordering Physician: SUNG BAUGH Performed By: Lisa Markham RVT 04/22/16 2103 Date Nando Chávez MD CC: SUNG BAUGH MD; Angela Katherine HUERTA Date Dictated: 04/17/16 0934 Date Transcribed: 04/22/162102 Trauma Nurse: Signed 20-Jan-[address] Lung Screening Result: Comments: See Note; NOTES: [facility] Imaging Services [address] [place] [address] Lung Screening MR#: [id number] Acct: [id number] Name: Tasia BRYAN Rep #: [id number] : 1945 M 70 From: Juvenal Darden MD PCP: Angela Murphy DO Status: REG CLI Study: Low Dose CT Lung Screening Date of Exam: 01/20/16 Exam# [id number] Ordering Dr: Angela Murphy DO STUDY: CT CHEST WITHOUT CONTRAST- LOW DOSE SCREENING PROTOCOL REASON FOR EXAM: Male, 70 years old. LUNG CANCER SCREENING SMOKER X25 YRS/1+PPD/QUIT X15 YRS AGO pack per year history. No current symptoms of lung cancer or pulmonary infection. Shared decision-making with referring PCP documented in patient's record. RADIATION DOSAGE (If Supplied By Facility): CTDIvol = ( 2.92 ) mGy, DLP = ( 99.90 ) mGycm TECHNIQUE: Low dose screening CT examination performed from the base of the neck to the upper abdomen. Sagittal and coronal reformatted images performed. Sagittal and coronal MIP clint ges provided. The measurements provided are average, rounded measurements per ACR guidelines. COMPARISON: None. FINDINGS: Subpleural irregular opacities are seen i n the right and left lung apices most likely represent scarring there is no dominant nodule seen. There is no demonstrated pleural abnormality. Normal heart and pericardium. There are calcifications of the coronary arteries. Normal mediastinum. Normal hilar regions. Normal unenhanced pulmonary arteries. Normal aorta arch and descending thoracic aorta. There are multi-level degenerative changes and mild dextroscoliosis of the thoracic spine. There is no demonstrated abnormality of the visualized upper abdomen. CT/Low Dose CT Lung Screening IMPRESSION: 1. LungRADS 2 2. No significant indeterminate incidental findings requiring additional imaging. 3. Incidental findings include mild dextroscoliosis and degenerative changes of the thoraci c spine. Electronically Signed: Juvenal Darden MD at 10:26 EDT Tel , Service support [phone], CC: Angela Murphy DO Trauma Nurse: Signed 30-Apr-2015 CTA Abd w/Runoff W/WO Contrast Result: Comments: See Note; NOTES: [facility] Imaging Services [address] [place] [address] Verdana 4d CTA Abd w/Runoff W/WO Contrast MR#: [id number] Acct: [id number] Na me: MERRICK BRYAN Rep #: [id number] : 1945 69 From: Vlad Zarco DO PCP: Agnela Murphy DO Status: REG CLI Study: CTA Abd w/Runoff W/WO Contrast Date of Exam: 04/30/15 Exam# [id number]: Sung Baugh MD STUDY: CTA OF THE ABDOMINAL AORTA AND BILATERAL LOWER EXTREMITIES REASON FOR EXAM: Male, 69 years old. Left leg pain. Peripheral vascular disease. Femoral bypass graft, 1998. RADIATION DOSAGE (If Supplied By Facility): CTDIvol = ( 6.37 ) mGy, DLP = ( 1124.95 ) mGycm TECHNIQUE: Axial CT angiography multi-detector data acquisition was obtained from the diaph ragm to the feet following intravenous administration of 100 ml of Isovue 370 contrast. Axial images and MIP images were reconstructed from the axial data set. Post-processing of the angiographic lcint ges was performed, with multiplanar reformation and 3D reconstruction. TECHNICAL QUALITY: Good COMPARISON: None. Descriptors of Narrowing: None (0%) Mild (< 50%) Moderate (50-70%) Sev ere (70-90%) Subtotal/Total Occlusion (90-100%) Non-Evaluable (technically non- diagnostic FINDINGS: Abdominal aorta: There is mild atherosclerotic changes of the abdominal aorta without aneurysm, dissection or stenosis. Celiac and superior mesenteric arteries: Mild atherosclerotic changes about the origin of the celiac and superior mesenteric arteries withou t significant stenosis. Inferior mesenteric artery: No demonstrated narrowing. Right renal artery(arteries): Atherosclerotic changes at the origin of the right renal artery with mild to moderate sam nosis. Left renal artery(arteries): No demonstrated narrowing. Right common iliac artery: There are atherosclerotic changes with mild narrowing. Right external iliac artery: Atherosclerotic changes with mild narrowing. Right internal iliac artery: Atherosclerotic changes with mild narrowing. Left common iliac artery: Occluded. Left external iliac artery: Occluded. Left internal iliac artery: Proximal occlusion. The distal branches reconstitute via collaterals. RIGHT LOWER EXTREMITY Right common femoral artery: Atherosclerotic change is without stenosis. There is a fem-fem bypass graft extending from the right to the left common femoral artery. Right profundus femoris: No demonstrated narrowing. Right superficial femoral: Minimal atherosclerotic changes distally with mild narrowin g and Right popliteal artery: Scattered atherosclerotic changes without stenosis. Right tibioperoneal trunk: No demonstrated narrowing. Right anterior tibial artery: No demonstrated narrowing. Righ t posterior tibial artery: No demonstrated narrowing. Right peroneal artery: No demonstrated narrowing. LEFT LOWER EXTREMITY Left common femoral artery: Reconstituted via the fem-fem bypass. Left p rofundus femoris: No demonstrated narrowing. Left superficial femoral: Minimal atherosclerotic changes distally without stenosis. Left popliteal artery: No demonstrated narrowing. Left tibioperoneal trunk: Minimal atherosclerotic changes without stenosis. Left anterior tibial artery: No demonstrated narrowing. Left posterior tibial artery: No demonstrated narrowing. Left peroneal artery: No de monstrated narrowing. The lung bases bases are clear. The heart appears normal in size. Normal liver normal gallbladder and extrahepatic biliary system. Normal spleen. Normal pancreas. Normal adr enal glands. Normal right kidney. There are multiple renal cysts without other evidence of left kidney abnormality normal IVC. Normal retroperitoneum. Normal stomach. Normal small bowel. Normal colo n. Normal appendix. Normal bladder. The prostate is markedly enlarged. Prominent seminal vesicles. There is no pelvic lymphadenopathy or mass. No free air or free fluid is seen within the abdominal cavity. Normal abdominal wall. There are degenerative changes of the lumbar spine. No lytic or blastic lesions are noted. IMPRESSION: 1. Minimal atheroscleroti c changes of the abdominal aorta and intra-abdominal arteries. 2. 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 3. Fem-fem bypass graft. 4. No significant lower extremity arterial stenos is. 5. Enlarged prostate. 6. Left renal cyst. Electronically Signed: Vlad Zarco DO at 17:07 EST Tel [phone], Service support [phone], CC: SUNG Campos MD; Angela Murphy DO Trauma Nurse: Signed 13-Feb-2015 Vascular Test/LEAS/UEAS Result: Comments: See Note; NOTES: [facility] Cardiovascular Services [address] [place] [address] Lower Ext Art Exam w/ Exercise 02/06/15 1024 MR#: [id number] Acct: [id number] Name: MERRICK BRYAN Rep #: [id number] : 1945 69 From: Nanod Chávez MD Attending Dr: Angela Murphy DO Status: REG CLI Ordering Dr: Angela Murphy DO Date: 02/04/15 Location: [facility] Sex: M C Admitted: DATE OF SERVICE: 02/04/2015 ORDERING PHYSICIAN: Dr. Murphy. INTERPRETING PHYSICIAN: Dr. Chávez. REASON FOR CONSULTATION: Patient with complaint of left lower extremity leg fatigue with ambulation of about 100 yards, relieved with rest. The patient does have a history of fem-fem bypass. SCAN: Bilateral lower extremity PVRs. INTERPRETATION: Right lower extremity PVRs, there is normal pulsatile flow noted from the thigh down through the calf with some peaked waveforms noted, but maintained out through the ankle and digits. There was triphasic flow noted at th e ankle, the posterior tibial and dorsalis pedis, with an CLARISSA of 1.08 of the posterior tibial and 1.01 of the dorsalis pedis. With exercise on a treadmill 2 miles per hour, 5% grade, left leg fatigue at 1 minute. Exercise ended at 4 minutes. No significant drop noted and maintained from 1.08 at rest out to 1.09. Left lower extremity PVRS, normal pulsatile flow noted from the thigh down through t he calf, ankle, and digits; slightly again peaked waveforms at the calf noted. Segmental pressures no significant change noted throughout the thigh calf. The Duplex showed triphasic flow at the ankle , the posterior tibial and dorsalis pedis, with an CLARISSA of 0.91 of the posterior tibial and 0.84 of the dorsalis pedis. With exercise again at 2 miles per hour, 5% grade, had some left leg fatigue at 1 minute, but was able to exercise out to 4 minutes. Just a mild decrease of CLARISSA had been from 0.91 to 0.82, but then recovered at 3 minutes back to 0.9 and 0.98 at 5 minutes. IMPRESSION: 1. Right l ower extremity with no evidence of significant arterial occlusive disease with an CLARISSA of 1.08 and triphasic flow noted at the ankle. 2. Left lower extremity, minimal occlusive disease noted with a res ting CLARISSA of 0.91, minimal decrease down to 0.82 with exercise. Triphasic flow noted at the ankle with an CLARISSA of 0.91. Further evaluation as clinically warranted. Nando Chávez M.D. T: NTS JOB: [id number] 02/13/15 1034 <Electronically signed by Nando Chávez MD> Date Nando Chávez MD CC: Angela Murphy DO Date Dictated: 02/06/15 1024 Date Transcribed: 02/06/15 1024 Trauma Nurse: Signed 06-Feb-2015 Carotid Duplex Ultrasound Result: Comments: See Note; NOTES: [facility] Cardiovascular Services [address] [place] [address] Carotid Duplex Ultrasound 02/04/15 1010 MR#: [id number] Acct: [id number] Na me: MERRICK BRYAN Rep #: [id number] : 1945 69 From: Nando Chávez MD Attending Dr: Angela Murphy DO Status: REG CLI Ordering Dr: Angela Murphy DO Date: 02/04/15 Location: [facility] Sex: M C Admitted: Rt. Velocities/BP Lt. Velocities/BP Prox CCA 87.9/17.0 cm/sec. Prox CCA 95.6/14.7 cm/sec. Mid CCA 85.0/17.6 cm/sec. Mid CCA 90.3/20.5 cm/sec. Dist CCA 74.5/15.2 cm/sec. Dist CCA 79.7/18.2 cm/sec. Prox ICA 76.2/16.4 cm/sec. Prox ICA 98.6/22.2 cm/sec. Mid ICA 56.3/15.8 cm/sec. Mid ICA 102.0/27.4 cm/sec. Dist ICA 73.9/17.0 cm/sec. Dist ICA 83.8/19.3 cm/sec. Rt. ICA/CCA = .90. Lt. ICA/CCA = 1.1. Prox ECA 230.0/31.4 cm/sec. Prox ECA 148.0/17.7 cm/sec. Rt. Vert. 76.8/18.2 cm/sec. Lt. Vert. 35.6/6.3 cm/sec. Right Extracranial There is no significant atherosclerotic plaque n oted in the right common carotid artery. There is intimal thickening but no significant atherosclerotic plaque noted in the right internal carotid artery. There is heterogeneous, irregular atheroscle rotic plaque noted in the right external carotid artery. Antegrade flow is noted in the right vertebral artery. Left Extracranial There is intimal thickening but no significant atherosclerotic plaq ue noted in the left common carotid artery. There is heterogeneous, irregular atherosclerotic plaque noted in the left internal carotid artery. There is heterogeneous, irregular atherosclerotic plaqu e noted in the left external carotid artery. Antegrade flow is noted in the left vertebral artery. Procedure Carotid Duplex [id number]. Exam performed in department. Interpretation Summary Mild (&amp ;#60;50%) stenosis right extracranial internal carotid. Mild (<50%) stenosis left extracranial internal carotid. Flow within the vertebral arteries is antegrade bilaterally. Ordering Physician: Angela Murphy Performed By: Lisa Markham RVT 02/06/15901 Date Nando Chávez MD CC: Angela Murphy DO Date Dictated: 02/04/15 1010 Date Transcribed: 02/06/15901 Trauma Nurse: Signed 28-Jan-2015 Foot min 3 Views Result: Comments: See Note; NOTES: [facility] Imaging Services [address] [place] [id number] Radiology Report MR#: [id number] Acct: [id number] Name: BRYANMERRICK Renee Rep #: [id number] : 1945 M 69 From: Benji Camacho MD PCP: Angela Murphy DO Status: REG CLI Study: Foot min 3 Views Date of Exam: 01/28/15 Exam# [id number] Ordering Dr: Angela Murphy DO STUD Y: X-RAY - LEFT FOOT CLINICAL: Male, 69 years old. LEFT HEEL PAIN WITHOUT INJURY TECHNIQUE: 3 view(s) of the foot. COMPARISON: None. FINDINGS: There is a pl monisha calcaneal spur. Normal visualized subtalar, talonavicular, calcaneocuboid, tarsal and tarsometatarsal articulations. Normal metatarsi. Normal metatarsophalangeal joint of the great toe. Nor mal tibial and fibular sesamoid bones. Normal interphalangeal joint of the great toe. Normal phalanges of the great toe. Normal second through fifth metatarsophalangeal joints. Normal interphalange al joints and phalanges of the lesser toes. The soft tissue structures are unremarkable. IMPRESSION: There is a calcaneal spur. Electronically Signed: Benji calderon MD at 17:10 EDT , Service support [phone], RAD/Foot min 3 Views IMPRESSION: There is a calcaneal spur. 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 Comments: 10/30/11 Status: Active Smoking Status Name Dates Details Former smoker Vital Signs Date Test Result Details :13 Temperature 97.2 f Pulse 88 /min Comments: Pattern: Regular Respiration Rate 18 /min Comments: Pattern: Unlabored O2 SAT 96 % Comments: Room air BP Systolic 141 mm[Hg] Comments: Patient Position: Sitting; Cuff Location: Left Arm; Cuff Size: Standard BP Diastolic 90 mm[Hg] Comments: Patient Position: Sitting; Cuff Location: Left Arm; Cuff Size: Standard Weight 178 lb Height 64 in Body Mass Index Calculated 30.55 kg/m2 Body Surface Area Calculated 1.86 m2 [id number] Pulse 65 /min Comments: Pattern: Regular Respiration Rate 18 /min Comments: Pattern: Unlabored O2 SAT 96 % Comments: Room air BP Systolic 120 mm[Hg] Comments: Patient Position: Sitting; Cuff Location: Left Arm; Cuff Size: Large BP Diastolic 78 mm[Hg] Comments: Patient Position: Sitting; Cuff Location: Left Arm; Cuff Size: Large Weight 186.25 lb Height 70 in Body Mass Index Calculated 26.72 kg/m2 Body Surface Area Calculated 2.03 m2 :29 Pulse 91 /min Comments: Pattern: Regular Respiration Rate 18 /min Comments: Pattern: Unlabored O2 SAT 97 % Comments: Room air BP Systolic 142 mm[Hg] Comments: Patient Position: Sitting; Cuff Location: Left Arm; Cuff Size: Large BP Diastolic 70 mm[Hg] Comments: Patient Position: Sitting; Cuff Location: Left Arm; Cuff Size: Large Weight 181.125 lb Height 70 in Body Mass Index Calculated 25.99 kg/m2 Body Surface Area Calculated 2 m2 :58 Comments: DR. Pereira and had a glaucoma test donehearing wn Pulse 81 /min Comments: Pattern: Regular Respiration Rate 18 /min Comments: Pattern: Unlabored O2 SAT 97 % Comments: Room air BP Systolic 120 mm[Hg] Comments: Patient Position: Sitting; Cuff Location: Left Arm; Cuff Size: Large BP Diastolic 80 mm[Hg] Comments: Patient Position: Sitting; Cuff Location: Left Arm; Cuff Size: Large Weight 184 lb Height 70 in Body Mass Index Calculated 26.4 kg/m2 Body Surface Area Calculated 2.01 m2 :40 Pulse 72 /min Comments: Pattern: Regular Respiration Rate 18 /min Comments: Pattern: Unlabored O2 SAT 96 % Comments: Room air BP Systolic 120 mm[Hg] Comments: Patient Position: Sitting; Cuff Location: Left Arm; Cuff Size: Large BP Diastolic 82 mm[Hg] Comments: Patient Position: Sitting; Cuff Location: Left Arm; Cuff Size: Large Weight 179.5 lb Height 70 in Body Mass Index Calculated 25.76 kg/m2 Body Surface Area Calculated 1.99 m2 :03 Pulse 79 /min Comments: Pattern: Regular Respiration Rate 16 /min Comments: Pattern: Unlabored BP Systolic 136 mm[Hg] Comments: Patient Position: Sitting; Cuff Location: Left Arm; Cuff Size: Standard BP Diastolic 78 mm[Hg] Comments: Patient Position: Sitting; Cuff Location: Left Arm; Cuff Size: Standard Weight 180 lb Height 70 in Body Mass Index Calculated 25.83 kg/m2 Body Surface Area Calculated 2 m2 :16 Pulse 73 /min Comments: Pattern: Regular Respiration Rate 18 /min Comments: Pattern: Unlabored O2 SAT 93 % Comments: Room air BP Systolic 128 mm[Hg] Comments: Patient Position: Sitting; Cuff Location: Left Arm; Cuff Size: Standard BP Diastolic 70 mm[Hg] Comments: Patient Position: Sitting; Cuff Location: Left Arm; Cuff Size: Standard Weight 184 lb Height 70 in Body Mass Index Calculated 26.4 kg/m2 Body Surface Area Calculated 2.01 m2 :17 Comments: hearing [facility] and had glaucoma test done Temperature 97.8 f Comments: Method: Temporal Pulse 76 /min Comments: Pattern: Regular Respiration Rate 18 /min Comments: Pattern: Unlabored O2 SAT 95 % Comments: Room air BP Systolic 122 mm[Hg] Comments: Patient Position: Sitting; Cuff Location: Left Arm; Cuff Size: Large BP Diastolic 78 mm[Hg] Comments: Patient Position: Sitting; Cuff Location: Left Arm; Cuff Size: Large Weight 173 lb Height 70 in Body Mass Index Calculated 24.82 kg/m2 Body Surface Area Calculated 1.96 m2 :32 Pulse 79 /min Comments: Pattern: Regular Respiration Rate 18 /min Comments: Pattern: Unlabored O2 SAT 96 % Comments: Room air BP Systolic 110 mm[Hg] Comments: Patient Position: Sitting; Cuff Location: Left Arm; Cuff Size: Standard BP Diastolic 70 mm[Hg] Comments: Patient Position: Sitting; Cuff Location: Left Arm; Cuff Size: Standard Weight 173.375 lb Height 70 in Body Mass Index Calculated 24.88 kg/m2 Body Surface Area Calculated 1.96 m2 :45 Pulse 82 /min Comments: Pattern: Regular Respiration Rate 18 /min Comments: Pattern: Unlabored O2 SAT 95 % Comments: Room air BP Systolic 138 mm[Hg] Comments: Patient Position: Sitting; Cuff Location: Left Arm; Cuff Size: Large BP Diastolic 80 mm[Hg] Comments: Patient Position: Sitting; Cuff Location: Left Arm; Cuff Size: Large Weight 175 lb Height 70 in Body Mass Index Calculated 25.11 kg/m2 Body Surface Area Calculated 1.97 m2 :41 Temperature 97.8 f Comments: Method: Temporal Pulse 74 /min Comments: Pattern: Regular Respiration Rate 16 /min Comments: Pattern: Unlabored O2 SAT 97 % Comments: Room air BP Systolic 128 mm[Hg] Comments: Patient Position: Sitting; Cuff Location: Left Arm; Cuff Size: Standard BP Diastolic 76 mm[Hg] Comments: Patient Position: Sitting; Cuff Location: Left Arm; Cuff Size: Standard Weight 172 lb Height 70 in Body Mass Index Calculated 24.68 kg/m2 Body Surface Area Calculated 1.96 m2 :37 Comments: Dr. Pereira had a glaucoma testhearing wnl Pulse 74 /min Comments: Pattern: Regular Respiration Rate 18 /min Comments: Pattern: Unlabored O2 SAT 97 % Comments: Room air BP Systolic 120 mm[Hg] Comments: Patient Position: Sitting; Cuff Location: Left Arm; Cuff Size: Large BP Diastolic 80 mm[Hg] Comments: Patient Position: Sitting; Cuff Location: Left Arm; Cuff Size: Large Weight 174 lb Height 70 in Body Mass Index Calculated 24.97 kg/m2 Body Surface Area Calculated 1.97 m2 :53 Pulse 73 /min Comments: Pattern: Regular Respiration Rate 18 /min Comments: Pattern: Unlabored O2 SAT 96 % Comments: Room air BP Systolic 120 mm[Hg] Comments: Patient Position: Sitting; Cuff Location: Left Arm; Cuff Size: Large BP Diastolic 82 mm[Hg] Comments: Patient Position: Sitting; Cuff Location: Left Arm; Cuff Size: Large Weight 181.25 lb Height 70 in Body Mass Index Calculated 26.01 kg/m2 Body Surface Area Calculated 2 m2 :52 Comments: vision with correction ou=20/25 od=20/30 os=20/40hearing wnl Temperature 98 f Comments: Method: Oral Pulse 100 /min Comments: Pattern: Regular Respiration Rate 20 /min Comments: Pattern: Unlabored BP Systolic 132 mm[Hg] Comments: Patient Position: Sitting; Cuff Location: Left Arm; Cuff Size: Large BP Diastolic 78 mm[Hg] Comments: Patient Position: Sitting; Cuff Location: Left Arm; Cuff Size: Large Weight 181.1875 lb Height 70 in Body Mass Index Calculated 26 kg/m2 Body Surface Area Calculated 2 m2 :19 Temperature 98.2 f Comments: Method: Oral Pulse 82 /min Comments: Pattern: Regular Respiration Rate 17 /min O2 SAT 98 % Comments: Room air BP Systolic 132 mm[Hg] Comments: Patient Position: Sitting; Cuff Location: Left Arm; Cuff Size: Standard BP Diastolic 80 mm[Hg] Comments: Patient Position: Sitting; Cuff Location: Left Arm; Cuff Size: Standard Weight 175 lb Height 70 in Body Mass Index Calculated 25.11 kg/m2 Body Surface Area Calculated 1.97 m2 :59 Temperature 98.8 f Comments: Method: Oral Pulse 82 /min Comments: Pattern: Regular Respiration Rate 17 /min BP Systolic 136 mm[Hg] Comments: Patient Position: Sitting; Cuff Location: Left Arm; Cuff Size: Standard BP Diastolic 84 mm[Hg] Comments: Patient Position: Sitting; Cuff Location: Left Arm; Cuff Size: Standard Weight 175 lb Height 70 in Body Mass Index Calculated 25.11 kg/m2 Body Surface Area Calculated 1.97 m2 :27 Temperature 97.6 f Comments: Method: Oral Pulse 80 /min Comments: Pattern: Regular Respiration Rate 16 /min Comments: Pattern: Unlabored BP Systolic 120 mm[Hg] Comments: Patient Position: Sitting; Cuff Location: Left Arm; Cuff Size: Large BP Diastolic 82 mm[Hg] Comments: Patient Position: Sitting; Cuff Location: Left Arm; Cuff Size: Large Weight 175 lb Height 70 in Body Mass Index Calculated 25.11 kg/m2 Body Surface Area Calculated 1.97 m2 :35 Temperature 98.8 f Comments: Method: Oral Pulse 112 /min Comments: Pattern: Regular Respiration Rate 19 /min Comments: Pattern: Unlabored BP Systolic 144 mm[Hg] Comments: Patient Position: Sitting; Cuff Location: Left Arm; Cuff Size: Standard BP Diastolic 90 mm[Hg] Comments: Patient Position: Sitting; Cuff Location: Left Arm; Cuff Size: Standard Weight 174 lb Height 70 in Body Mass Index Calculated 24.97 kg/m2 Body Surface Area Calculated 1.97 m2 :40 Pulse 80 /min Comments: Pattern: Regular Respiration Rate 20 /min Comments: Pattern: Unlabored BP Systolic 118 mm[Hg] Comments: Patient Position: Sitting; Cuff Location: Left Arm; Cuff Size: Large BP Diastolic 76 mm[Hg] Comments: Patient Position: Sitting; Cuff Location: Left Arm; Cuff Size: Large Weight 174 lb Height 70 in Body Mass Index Calculated 24.97 kg/m2 Body Surface Area Calculated 1.97 m2 :25 Temperature 98.5 f Comments: Method: Oral Pulse 80 /min Comments: Pattern: Regular Respiration Rate 16 /min Comments: Pattern: Unlabored BP Systolic 128 mm[Hg] Comments: Patient Position: Supine; Cuff Location: Left Arm; Cuff Size: Standard BP Diastolic 72 mm[Hg] Comments: Patient Position: Supine; Cuff Location: Left Arm; Cuff Size: Standard Weight 174 lb Height 70 in Body Mass Index Calculated 24.97 kg/m2 Body Surface Area Calculated 1.97 m2 Head Circumference 0.00 cm :14 Pulse 84 /min Comments: Pattern: Regular Respiration Rate 18 /min Comments: Pattern: Unlabored BP Systolic 128 mm[Hg] Comments: Patient Position: Sitting; Cuff Location: Left Arm; Cuff Size: Standard BP Diastolic 90 mm[Hg] Comments: Patient Position: Sitting; Cuff Location: Left Arm; Cuff Size: Standard Weight 175.1875 lb Height 70 in Body Mass Index Calculated 25.14 kg/m2 Body Surface Area Calculated 1.97 m2 Head Circumference 0.00 cm :14 Pulse 88 /min Comments: Pattern: Regular Respiration Rate 20 /min Comments: Pattern: Unlabored BP Systolic 128 mm[Hg] Comments: Patient Position: Sitting; Cuff Location: Left Arm; Cuff Size: Large BP Diastolic 78 mm[Hg] Comments: Patient Position: Sitting; Cuff Location: Left Arm; Cuff Size: Large Weight 175.1875 lb Height 70 in Body Mass Index Calculated 25.14 kg/m2 Body Surface Area Calculated 1.97 m2 Head Circumference 0.00 cm :56 Pulse 60 /min Comments: Pattern: Regular Respiration Rate 16 /min Comments: Pattern: Unlabored BP Systolic 142 mm[Hg] Comments: Patient Position: Sitting; Cuff Location: Left Arm; Cuff Size: Standard BP Diastolic 90 mm[Hg] Comments: Patient Position: Sitting; Cuff Location: Left Arm; Cuff Size: Standard Weight 173.1875 lb Height 70 in Body Mass Index Calculated 24.85 kg/m2 Body Surface Area Calculated 1.96 m2 Head Circumference 0.00 cm :46 Pulse 88 /min Comments: Pattern: Regular Respiration Rate 20 /min Comments: Pattern: Unlabored BP Systolic 124 mm[Hg] Comments: Patient Position: Sitting; Cuff Location: Left Arm; Cuff Size: Standard BP Diastolic 78 mm[Hg] Comments: Patient Position: Sitting; Cuff Location: Left Arm; Cuff Size: Standard Weight 173.1875 lb Height 70 in Body Mass Index Calculated 24.85 kg/m2 Body Surface Area Calculated 1.96 m2 Head Circumference 0.00 cm :07 Pulse 76 /min Comments: Pattern: Regular Respiration Rate 16 /min Comments: Pattern: Unlabored BP Systolic 126 mm[Hg] Comments: Patient Position: Sitting; Cuff Location: Right Arm; Cuff Size: Large BP Diastolic 72 mm[Hg] Comments: Patient Position: Sitting; Cuff Location: Right Arm; Cuff Size: Large Weight 0 lb Height 0 in Head Circumference 0.00 cm :46 Temperature 97.8 f Comments: Method: Oral Pulse 60 /min Comments: Pattern: Regular Respiration Rate 18 /min Comments: Pattern: Unlabored BP Systolic 120 mm[Hg] Comments: Patient Position: Sitting; Cuff Location: Left Arm; Cuff Size: Standard BP Diastolic 66 mm[Hg] Comments: Patient Position: Sitting; Cuff Location: Left Arm; Cuff Size: Standard Weight 178.1875 lb Height 70 in Body Mass Index Calculated 25.57 kg/m2 Body Surface Area Calculated 1.99 m2 Head Circumference 0.00 cm :54 Temperature 97.5 f Comments: Method: Oral Pulse 72 /min Comments: Pattern: Regular Respiration Rate 16 /min Comments: Pattern: Unlabored BP Systolic 100 mm[Hg] Comments: Patient Position: Sitting; Cuff Location: Left Arm; Cuff Size: Standard BP Diastolic 64 mm[Hg] Comments: Patient Position: Sitting; Cuff Location: Left Arm; Cuff Size: Standard Weight 175 lb Height 0 in Head Circumference 0.00 cm :15 Temperature 97.5 f Comments: Method: Oral Pulse 76 /min Comments: Pattern: Regular Respiration Rate 18 /min Comments: Pattern: Unlabored BP Systolic 166 mm[Hg] Comments: Patient Position: Sitting; Cuff Location: Left Arm; Cuff Size: Standard BP Diastolic 90 mm[Hg] Comments: Patient Position: Sitting; Cuff Location: Left Arm; Cuff Size: Standard Weight 175.4375 lb Height 70 in Body Mass Index Calculated 25.17 kg/m2 Body Surface Area Calculated 1.97 m2 Head Circumference 0.00 cm :50 BP Systolic 130 mm[Hg] Comments: Patient Position: Undefined; Cuff Location: Undefined; Cuff Size: Undefined BP Diastolic 82 mm[Hg] Comments: Patient Position: Undefined; Cuff Location: Undefined; Cuff Size: Undefined Weight 0 lb Height 0 in Head Circumference 0.00 cm :05 Pulse 60 /min Comments: Pattern: Regular Respiration Rate 16 /min Comments: Pattern: Unlabored BP Systolic 138 mm[Hg] Comments: Patient Position: Sitting; Cuff Location: Left Arm; Cuff Size: Standard BP Diastolic 86 mm[Hg] Comments: Patient Position: Sitting; Cuff Location: Left Arm; Cuff Size: Standard Weight 175.4375 lb Height 70 in Body Mass Index Calculated 25.17 kg/m2 Body Surface Area Calculated 1.97 m2 Head Circumference 0.00 cm :38 Temperature 97.6 f Comments: Method: Oral Pulse 80 /min Comments: Pattern: Regular Respiration Rate 16 /min Comments: Pattern: Unlabored BP Systolic 138 mm[Hg] Comments: Patient Position: Sitting; Cuff Location: Left Arm; Cuff Size: Standard BP Diastolic 80 mm[Hg] Comments: Patient Position: Sitting; Cuff Location: Left Arm; Cuff Size: Standard Weight 0 lb Height 0 in Head Circumference 0.00 cm Results Date Description Value Details :10 Lipid Profile Comments: [facility] [id number] [facility] [place], [place], [id number] VLDL 26 mg/dL (Normal) Range: 5-40 LDL 64 mg/dL (Normal) Range: 0-130 HDL 60 mg/dL (Normal) Comments: The drugs N-Acetylcysteine and Metamizole may falselydepress this assay. Reference Range HDL <40 mg/dL Low HDL Cholesterol HDL >or= 60 mg/dL High HDL Cholesterol TRIG 128 mg/dL (Normal) Comments: The drugs N-Acetylcysteine and Metamizole may falselydepress this assay.Serum Triglycerides Reference Interval Normal <150 mg/dL Borderline high 150 - 199 mg/dL High 200 - 499 mg/dL Very High > or = 500 mg/dL CHOL 150 mg/dL (Normal) Comments: <200 mg/dL Desirable 200-240 mg/dL Borderline >240 mg/dL High Risk :10 Liver Profile Comments: [facility] [id number] [place], [place], [id number] D BILI 0.16 mg/dL (Normal) Range: 0.00-0.30 T BILI 0.60 mg/dL (Normal) Range: 0.20-1.00 ALT 40 U/L (Normal) Range: 16-61 ALK P 80 U/L (Normal) Range: 45-117 AST 25 U/L (Normal) Range: 15-37 GLOB 3.5 g/dL (Normal) Range: 2.2-4.2 ALB 4.0 g/dL (Normal) Range: 3.2-5.0 T PROT 7.5 g/dL (Normal) Range: 6.4-8.2 :23 Lipid Profile Comments: Order Date: 04/23/16Order Info: [id number] - *Hepatic Function PanelOrder Info: [id number] - *Lipid Profile CC PCPComments: 12 hours fasting, may have water.SEND COPY TO [facility] [id number] [place], [place], [address] VLDL 30 mg/dL (Normal) Range: 5-40 LDL 56 mg/dL (Normal) Range: 0-130 HDL 57 mg/dL (Normal) Comments: The drugs N-Acetylcysteine and Metamizole may falselydepress this assay. Reference Range HDL <40 mg/dL Low HDL Cholesterol HDL >or= 60 mg/dL High HDL Cholesterol TRIG 150 mg/dL (Normal) Comments: The drugs N-Acetylcysteine and Metamizole may falselydepress this assay.Serum Triglycerides Reference Interval Normal <150 mg/dL Borderline high 150 - 199 mg/dL High 200 - 499 mg/dL Very High > or = 500 mg/dL CHOL 143 mg/dL (Normal) Comments: <200 mg/dL Desirable 200-240 mg/dL Borderline >240 mg/dL High Risk :23 Liver Profile Comments: Order Date: 04/23/16Order Info: [id number] - *Hepatic Function PanelOrder Info: [id number] - *Lipid Profile CC PCPComments: 12 hours fasting, may have water.SEND COPY TO [facility] [id number] [place], [place], [address] D BILI 0.16 mg/dL (Normal) Range: 0.00-0.30 T BILI 0.50 mg/dL (Normal) Range: 0.20-1.00 ALT 39 U/L (Normal) Range: 12-78 ALK P 100 U/L (Normal) Range: 45-117 AST 21 U/L (Normal) Range: 15-37 GLOB 3.8 g/dL (Normal) Range: 2.2-4.2 ALB 4.0 g/dL (Normal) Range: 3.4-5.0 Comments: Please note revised Albumin AND Globulin reference rangeeffective 2017. T PROT 7.8 g/dL (Normal) Range: 6.4-8.2 20-Jvx-890268:02 PSA (PROSTATE SPECIFIC Comments: PATIENT NOT FASTINGPERFORMED BY: [facility] [facility] [id number] ANTIGEN) (V76.44) Prostate Specific Ag, 0.9 ng/mL (Normal) Range: 0.0-4.0 Serum Comments: Fransisca ECLIA methodology. .According to the [place] [employer], Serum PSA shoulddecrease and remain at undetectable levels after radicalprostatectomy. The AUA defines biochemical recurrence as an initialPSA value 0.2 ng/mL or greater followed by a subsequent confirmatoryPSA value 0.2 ng/mL or greater.Values obtained with d ifferent assay methods or kits cannot be usedinterchangeably. Results cannot be interpreted as absolute evidenceof the presence or absence of malignant disease. 7-Kjc-616788:13 PTT (Activated Partial Comments: send to Pre Adm testing at [facility] [phone]; PATIENT NOT FASTINGPERFORMED BY: [facility] [facility] [id number] Thromboplastin Time) (55570) aPTT 27 {sec} (Normal) Range: 24-33 Comments: This test has not been validated for monitoring unfractionated heparintherapy. aPTT-based therapeutic ranges for unfractionated heparintherapy have not been established. For general guidelines onHeparin monitoring, refer to the [facility] Directory of Services. 1-Jvj-674241:13 PT (Prothrobim Time) (65677) Comments: [phone]; PATIENT NOT FASTINGPERFORMED BY: [facility] [facility] [id number] Prothrombin Time 10.4 {sec} (Normal) Range: 9.1-12.0 INR 1.0 (Normal) Range: 0.8-1.2 Comments: Reference interval is for non-anticoagulated patients. . Suggested INR therapeutic range for Vitamin K anta gonist therapy: Standard Dose (moderate intensity therapeutic range): 2.0 - 3.0 Higher intensity therapeutic range 2.5 - 3.5 7-Vtu-027264:13 METABOLIC PANEL, COMPREHENSIVE Comments: send to [facility] Adm testing at [facility] [phone]; PATIENT NOT FASTINGPERFORMED BY: [facility] Zobzxs3612 [facility] [id number] ([id number]) ALT (SGPT) 34 [iU]/L (Normal) Range: 0-44 AST (SGOT) 27 [iU]/L (Normal) Range: 0-40 Alkaline Phosphatase, S 83 [iU]/L (Normal) Range: 39-117 Bilirubin, Total 0.3 mg/dL (Normal) Range: 0.0-1.2 A/G Ratio 1.9 (Normal) Range: 1.2-2.2 Globulin, Total 2.5 g/dL (Normal) Range: 1.5-4.5 Albumin, Serum 4.7 g/dL (Normal) Range: 3.5-4.8 Protein, Total, Serum 7.2 g/dL (Normal) Range: 6.0-8.5 Calcium, Serum 9.6 mg/dL (Normal) Range: 8.6-10.2 Carbon Dioxide, Total 19 mmol/L (Normal) Range: 18-29 Chloride, Serum 103 mmol/L (Normal) Range: 96-106 Potassium, Serum 4.6 mmol/L (Normal) Range: 3.5-5.2 Sodium, Serum 142 mmol/L (Normal) Range: 134-144 BUN/Creatinine Ratio 16 (Normal) Range: 10-24 eGFR If Africn Am 98 mL/min/1.73 (Normal) eGFR If NonAfricn Am 85 mL/min/1.73 (Normal) Creatinine, Serum 0.91 mg/dL (Normal) Range: 0.76-1.27 BUN 15 mg/dL (Normal) Range: 8-27 Glucose, Serum 109 mg/dL (Abnormal) Range: 65-99 2-Gnl-819371:13 CBC W/AUTO DIFF WBC Comments: also send results to [phone]; PATIENT NOT FASTINGPERFORMED BY: [facility] HospitalJuvbwk3989 [address] [place] [id number] Information: [id number] (54654) Immature Grans (Abs) 0.0 {x10E3/uL} (Normal) Range: 0.0-0.1 Immature Granulocytes 0 % (Normal) Baso (Absolute) 0.0 {x10E3/uL} (Normal) Range: 0.0-0.2 Eos (Absolute) 0.2 {x10E3/uL} (Normal) Range: 0.0-0.4 Monocytes(Absolute) 0.8 {x10E3/uL} (Normal) Range: 0.1-0.9 Lymphs (Absolute) 1.8 {x10E3/uL} (Normal) Range: 0.7-3.1 Neutrophils (Absolute) 3.9 {x10E3/uL} (Normal) Range: 1.4-7.0 Basos 1 % (Normal) Eos 3 % (Normal) Monocytes 11 % (Normal) Lymphs 27 % (Normal) Neutrophils 58 % (Normal) Platelets 243 {x10E3/uL} (Normal) Range: 150-379 RDW 13.4 % (Normal) Range: 12.3-15.4 MCHC 34.0 g/dL (Normal) Range: 31.5-35.7 MCH 30.1 pg (Normal) Range: 26.6-33.0 MCV 89 fL (Normal) Range: 79-97 Hematocrit 45.3 % (Normal) Range: 37.5-51.0 Hemoglobin 15.4 g/dL (Normal) Range: 12.6-17.7 RBC 5.11 {x10E6/uL} (Normal) Range: 4.14-5.80 WBC 6.7 {x10E3/uL} (Normal) Range: 3.4-10.8 96-Rsl-062445:10 Serum Creatinine AND GFR Comments: [facility] [address] [place], [place], [id number] EST GFR - AA 81 mL/min (Normal) Comments: GFR Calc EST GFR 67 mL/min (Normal) Comments: Non- GFR Calc CREAT,SERUM 1.15 mg/dL (Normal) Range: 0.70-1.30 Comments: The validity of the calculated GFR AND GFRAA in patients over70 years has not been determined. Clinical correlation isessential. :29 Lipid Profile Comments: [facility] [address] [place], [place], [address] VLDL 25 mg/dL (Normal) Range: 5-40 LDL 76 mg/dL (Normal) Range: 0-130 HDL 70 mg/dL (Normal) Comments: The drugs N-Acetylcysteine and Metamizole may falsely deressthis assay. Reference Range HDL <40 mg/dL Low HDL Cholesterol HDL >or= 60 mg/dL High HDL Cholesterol TRIG 123 mg/dL (Normal) Comments: The drugs N-Acetylcysteine and Metamizole may falsely deressthis assay.Serum Triglycerides Reference Interval Normal <150 mg/dL Borderline high 150 - 199 mg/dL High 200 - 499 mg/dL Very High > or = 500 mg/dL CHOL 171 mg/dL (Normal) Comments: <200 mg/dL Desirable 200-240 mg/dL Borderline >240 mg/dL High Risk :29 Liver Profile Comments: [facility] [address] [place], [place], [id number] D BILI 0.10 mg/dL (Normal) Range: 0.00-0.30 T BILI 0.50 mg/dL (Normal) Range: 0.20-1.00 ALT 43 U/L (Normal) Range: 12-78 ALK P 83 U/L (Normal) Range: 45-117 AST 21 U/L (Normal) Range: 15-37 GLOB 3.9 g/dL (Abnormal) Range: 2.3-3.5 ALB 3.8 g/dL (Normal) Range: 3.4-5.0 T PROT 7.7 g/dL (Normal) Range: 6.4-8.2 :39 Lipid Profile Comments: [facility] [address] [place], [place], [id number] VLDL 24 mg/dL (Normal) Range: 5-40 LDL 59 mg/dL (Normal) Range: 0-130 HDL 51 mg/dL (Normal) Comments: The drugs N-Acetylcysteine and Metamizole may falsely deressthis assay. Reference Range HDL <40 mg/dL Low HDL Cholesterol HDL >or= 60 mg/dL High HDL Cholesterol TRIG 120 mg/dL (Normal) Comments: The drugs N-Acetylcysteine and Metamizole may falsely deressthis assay.Serum Triglycerides Reference Interval Normal <150 mg/dL Borderline high 150 - 199 mg/dL High 200 - 499 mg/dL Very High > or = 500 mg/dL CHOL 134 mg/dL (Normal) Comments: <200 mg/dL Desirable 200-240 mg/dL Borderline >240 mg/dL High Risk :39 Liver Profile Comments: [facility] [address] [place], [address] D BILI 0.14 mg/dL (Normal) Range: 0.00-0.30 T BILI 0.50 mg/dL (Normal) Range: 0.20-1.00 ALT 47 U/L (Normal) Range: 12-78 ALK P 94 U/L (Normal) Range: 50-136 AST 26 U/L (Normal) Range: 15-37 GLOB 3.5 g/dL (Normal) Range: 2.3-3.5 ALB 4.0 g/dL (Normal) Range: 3.4-5.0 T PROT 7.5 g/dL (Normal) Range: 6.4-8.2 :28 Fecal Occult Blood , Office (34285) Fecal Occult Blood , Office (Inhouse) negative (Normal) 42-Ypg-586785:35 PSA (PROSTATE SPECIFIC Comments: PATIENT NOT FASTINGPERFORMED BY: [facility] Ydegbm1170 [address] [facility] [id number] Information: [id number] ANTIGEN) (V76.44) Prostate Specific Ag, 2.5 ng/mL (Normal) Range: 0.0-4.0 Serum Comments: Fransisca ECLIA methodology. .According to the [place] [employer], Serum PSA shoulddecrease and remain at undetectable levels after radicalprostatectomy. The AUA defines biochemical recurrence as an initialPSA value 0.2 ng/mL or greater followed by a subsequent confirmatoryPSA value 0.2 ng/mL or greater.Values obtained with d ifferent assay methods or kits cannot be usedinterchangeably. Results cannot be interpreted as absolute evidenceof the presence or absence of malignant disease. :36 Microscopic Examination Comments: PATIENT WAS FASTINGPERFORMED BY: [facility] [id number] Bacteria Few (Normal) Mucus Threads Present (Normal) Epithelial Cells (non renal) 0-10 {/hpf} (Normal) Range: 0 - 10 RBC 0-2 {/hpf} (Normal) Range: 0 - 2 WBC 0-5 {/hpf} (Normal) Range: 0 - 5 :36 TSH (73139) Comments: PATIENT WAS FASTINGPERFORMED BY: [facility] [facility]rapeuticsUNC [facility] [id number] TSH 1.440 {uIU/mL} (Normal) Range: 0.450-4.500 :36 URINALYSIS, W/ MICRO (71251) Comments: PATIENT WAS FASTINGPERFORMED BY: [facility] [facility]rapeuticsUNC [facility] [id number] Microscopic Examination See below: (Normal) Comments: Microscopic was indicated and was performed. Microscopic Examination MICRON (Normal) Comments: Microscopic follows if indicated. Nitrite, Urine Negative (Normal) Urobilinogen,Semi-Qn 0.2 mg/dL (Normal) Range: 0.2-1.0 Bilirubin Negative (Normal) Occult Blood Negative (Normal) Ketones Negative (Normal) Glucose Negative (Normal) Protein Negative (Normal) WBC Esterase Negative (Normal) Appearance Clear (Normal) Urine-Color Yellow (Normal) pH 6.0 (Normal) Range: 5.0-7.5 Specific [place] 1.020 (Normal) Range: 1.005-1.030 :36 MICROALBUMIN: CREATININE RATIO Comments: PATIENT WAS FASTINGPERFORMED BY: [employer] [id number] (32345) AND (77814) Microalb/Creat Ratio 11.4 {mg/g_creat} (Normal) Range: 0.0-30.0 Microalbumin, Urine 12.8 ug/mL (Normal) Creatinine, Urine 111.8 mg/dL (Normal) :36 METABOLIC PANEL, COMPREHENSIVE Comments: PATIENT WAS FASTINGPERFORMED BY: [employer]70 [facility] [id number] (32590) ALT (SGPT) 53 [iU]/L (Abnormal) Range: 0-44 AST (SGOT) 38 [iU]/L (Normal) Range: 0-40 Alkaline Phosphatase, S 90 [iU]/L (Normal) Range: 39-117 Bilirubin, Total 0.3 mg/dL (Normal) Range: 0.0-1.2 A/G Ratio 1.8 (Normal) Range: 1.1-2.5 Globulin, Total 2.4 g/dL (Normal) Range: 1.5-4.5 Albumin, Serum 4.4 g/dL (Normal) Range: 3.6-4.8 Protein, Total, Serum 6.8 g/dL (Normal) Range: 6.0-8.5 Calcium, Serum 9.4 mg/dL (Normal) Range: 8.6-10.2 Carbon Dioxide, Total 21 mmol/L (Normal) Range: 18-29 Chloride, Serum 104 mmol/L (Normal) Range: 97-108 Potassium, Serum 4.9 mmol/L (Normal) Range: 3.5-5.2 Sodium, Serum 142 mmol/L (Normal) Range: 134-144 BUN/Creatinine Ratio 18 (Normal) Range: 10-22 eGFR If Africn Am 104 mL/min/1.73 (Normal) eGFR If NonAfricn Am 90 mL/min/1.73 (Normal) Creatinine, Serum 0.83 mg/dL (Normal) Range: 0.76-1.27 BUN 15 mg/dL (Normal) Range: 8-27 Glucose, Serum 105 mg/dL (Abnormal) Range: 65-99 :36 LIPID PANEL (50048) Comments: PATIENT WAS FASTINGPERFORMED BY: [employer]70 [place] [facility] [id number] LDL/HDL Ratio 1.1 {ratio_units} (Normal) Range: 0.0-3.6 Comments: LDL/HDL Ratio Men Women 1/2 Avg.Risk 1.0 1.5 Av g.Risk 3.6 3.2 2X Avg.Risk 6.2 5.0 3X Avg.Risk 8.0 6.1 LDL Cholesterol Calc 64 mg/dL (Normal) Range: 0-99 VLDL Cholesterol Manoj 18 mg/dL (Normal) Range: 5-40 HDL Cholesterol 57 mg/dL (Normal) Comments: According to ATP-III Guidelines, HDL-C >59 mg/dL is considered anegative risk factor for CHD. Triglycerides 89 mg/dL (Normal) Range: 0-149 Cholesterol, Total 139 mg/dL (Normal) Range: 100-199 :36 CBC W/AUTO DIFF WBC Comments: PATIENT WAS FASTINGPERFORMED BY: [facility]Co[facility] HospitalJfqoqs4243 [facility] [id number] Information: [id number] (96623) Immature Grans (Abs) 0.0 {x10E3/uL} (Normal) Range: 0.0-0.1 Immature Granulocytes 0 % (Normal) Baso (Absolute) 0.0 {x10E3/uL} (Normal) Range: 0.0-0.2 Eos (Absolute) 0.2 {x10E3/uL} (Normal) Range: 0.0-0.4 Monocytes(Absolute) 0.7 {x10E3/uL} (Normal) Range: 0.1-0.9 Lymphs (Absolute) 2.4 {x10E3/uL} (Normal) Range: 0.7-3.1 Neutrophils (Absolute) 4.8 {x10E3/uL} (Normal) Range: 1.4-7.0 Basos 1 % (Normal) Eos 3 % (Normal) Monocytes 9 % (Normal) Lymphs 29 % (Normal) Neutrophils 58 % (Normal) Platelets 274 {x10E3/uL} (Normal) Range: 150-379 RDW 13.9 % (Normal) Range: 12.3-15.4 MCHC 33.2 g/dL (Normal) Range: 31.5-35.7 MCH 29.7 pg (Normal) Range: 26.6-33.0 MCV 90 fL (Normal) Range: 79-97 Hematocrit 45.8 % (Normal) Range: 37.5-51.0 Hemoglobin 15.2 g/dL (Normal) Range: 12.6-17.7 RBC 5.12 {x10E6/uL} (Normal) Range: 4.14-5.80 WBC 8.1 {x10E3/uL} (Normal) Range: 3.4-10.8 24-Vxg-506435:27 URINE EULOGIO CULTURE (TASH Comments: PATIENT NOT FASTINGPERFORMED BY: [facility] Ydhfue1135 [facility] [id number] Information: SRC:[facility] [id number] COL COUNT) (26520) Result 1 BETAGB (Abnormal) Comments: Beta hemolytic Streptococcus, group BGreater than 100,000 colony forming units per mLPenicillin and ampicillin are drugs of choice for treatment ofbeta-hemolytic streptococcal infections. Susceptibility testing ofpenicillins and other beta-lactam agents approved by the FDA fortreatment of beta-hemolytic streptococcal infections need not beperformed routinely because nonsusceptible isolates are extreme lyrare in any beta-hemolytic streptococcus and have not been reportedfor Streptococcus pyogenes (group A). (CLSI 2011) Urine Final report (Abnormal) Culture,Comprehensive 99-Pjp-131873:48 Urinalysis, Office (54315) UA - LEUKOCYTE ESTERASE Small (Normal) UA - NITRITE Negative (Normal) URINE UROBILINGN TASH TIMED 4 mg/dL (Normal) UA - PROTEIN 100 mg/dL (Normal) UA - PH 7.5 (Normal) UA - BLOOD Hemolyzed Trace (Normal) UA - SPECIFIC GRAVITY 1.025 (Normal) UA - KETONES 15 mg/dL (Abnormal) UA - BILIRUBIN Small (Normal) UA - GLUCOSE Negative (Normal) 06-Jmn-694294:43 Lipid Profile Comments: [facility] [address] [place], [place], [id number] VLDL 24 mg/dL (Normal) Range: 5-40 LDL 51 mg/dL (Normal) Range: 0-130 HDL 52 mg/dL (Normal) Comments: Reference Range HDL <40 mg/dL Low HDL Cholesterol HDL >or= 60 mg/dL High HDL Cholesterol TRIG 119 mg/dL (Normal) Comments: Serum Triglycerides Reference Interval Normal <150 mg/dL Borderline high 150 - 199 mg/dL High 200 - 499 mg/dL Very High > or = 500 mg/dL CHOL 127 mg/dL (Normal) Comments: <200 mg/dL Desirable 200-240 mg/dL Borderline >240 mg/dL High Risk 94-Jdm-439262:43 Liver Profile Comments: [facility] [address] [place], [address] D BILI 0.16 mg/dL (Normal) Range: 0.00-0.30 T BILI 0.50 mg/dL (Normal) Range: 0.20-1.00 ALT 56 U/L (Normal) Range: 12-78 ALK P 112 U/L (Normal) Range: 50-136 AST 31 U/L (Normal) Range: 15-37 GLOB 3.5 g/dL (Normal) Range: 2.3-3.5 ALB 4.1 g/dL (Normal) Range: 3.4-5.0 T PROT 7.6 g/dL (Normal) Range: 6.4-8.2 10-Aiv-714668:03 Basic Metabolic Profile (BMP) Comments: [facility] [address] [place], [address] GAP 6 (Normal) Range: 5-15 CO2 26.0 mmol/L (Normal) Range: 21.0-32.0 CL 109 mmol/L (Abnormal) Range: 98-107 K 4.4 mmol/L (Normal) Range: 3.5-5.1 NA 141 mmol/L (Normal) Range: 136-145 CA 9.0 mg/dL (Normal) Range: 8.5-10.1 BUN/CRE 17.5 {RATIO} (Normal) Range: 10-20 EST GFR - AA 99 mL/min (Normal) Comments: GFR Calc EST GFR 82 mL/min (Normal) Comments: Non- GFR Calc CREAT,SERUM 0.97 mg/dL (Normal) Range: 0.70-1.30 Comments: The validity of the calculated GFR AND GFRAA in patients over70 years has not been determined. Clinical correlation isessential. BUN 17 mg/dL (Normal) Range: 7-18 GLU 115 mg/dL (Abnormal) Range: 70-110 Comments: Fasting Glucose result from 110 to <126 mg/dLsuggests IMPAIRED HOMEOSTASIS per A.D.A. criteria. 13-Krd-663112:48 Microscopic Examination Comments: PATIENT NOT FASTINGPERFORMED BY: [employer] Jurufw8804 [facility] [id number] Bacteria Few (Normal) Mucus Threads Present (Normal) Crystal Type Calcium Oxalate (Normal) Crystals Present (Abnormal) Epithelial Cells (non renal) 0-10 {/hpf} (Normal) Range: 0 - 10 RBC 0-2 {/hpf} (Normal) Range: 0 - 2 WBC 0-5 {/hpf} (Normal) Range: 0 - 5 44-Lma-609300:48 URINALYSIS, W/ MICRO (54132) Comments: PATIENT NOT FASTINGPERFORMED BY: [employer] [facility] [id number] Microscopic Examination See below: (Normal) Comments: Microscopic was indicated and was performed. Microscopic Examination MICRON (Normal) Comments: Microscopic follows if indicated. Nitrite, Urine Negative (Normal) Urobilinogen,Semi-Qn 0.2 mg/dL (Normal) Range: 0.0-1.9 Bilirubin Negative (Normal) Occult Blood Negative (Normal) Ketones Negative (Normal) Glucose Negative (Normal) Protein Negative (Normal) WBC Esterase Negative (Normal) Appearance Clear (Normal) Urine-Color Yellow (Normal) pH 6.0 (Normal) Range: 5.0-7.5 Specific [place] >=1.030 (Abnormal) Range: 1.005-1.030 60-Igp-221267:48 MICROALBUMIN: CREATININE RATIO Comments: PATIENT NOT FASTINGPERFORMED BY: [employer] Pdoksg1141 [facility] [id number] (82504) AND (09223) Microalb/Creat Ratio 5.9 {mg/g_creat} (Normal) Range: 0.0-30.0 Microalbumin, Urine 9.7 ug/mL (Normal) Range: 0.0-17.0 Creatinine, Urine 164.3 mg/dL (Normal) Range: 22.0-328.0 64-Ltm-990158:48 METABOLIC PANEL, COMPREHENSIVE Comments: PATIENT NOT FASTINGPERFORMED BY: [employer] Hugrzh4191 [facility] [id number] (02956) ALT (SGPT) 43 [iU]/L (Normal) Range: 0-44 AST (SGOT) 34 [iU]/L (Normal) Range: 0-40 Alkaline Phosphatase, S 96 [iU]/L (Normal) Range: 39-117 Bilirubin, Total 0.4 mg/dL (Normal) Range: 0.0-1.2 A/G Ratio 1.7 (Normal) Range: 1.1-2.5 Globulin, Total 2.7 g/dL (Normal) Range: 1.5-4.5 Albumin, Serum 4.6 g/dL (Normal) Range: 3.6-4.8 Protein, Total, Serum 7.3 g/dL (Normal) Range: 6.0-8.5 Calcium, Serum 9.6 mg/dL (Normal) Range: 8.6-10.2 Carbon Dioxide, Total 19 mmol/L (Normal) Range: 18-29 Chloride, Serum 104 mmol/L (Normal) Range: 97-108 Potassium, Serum 4.4 mmol/L (Normal) Range: 3.5-5.2 Sodium, Serum 141 mmol/L (Normal) Range: 134-144 BUN/Creatinine Ratio 23 (Abnormal) Range: 10-22 eGFR If Africn Am 102 mL/min/1.73 (Normal) eGFR If NonAfricn Am 88 mL/min/1.73 (Normal) Creatinine, Serum 0.88 mg/dL (Normal) Range: 0.76-1.27 BUN 20 mg/dL (Normal) Range: 8-27 Glucose, Serum 124 mg/dL (Abnormal) Range: 65-99 58-Bfi-693828:48 CBC W/AUTO DIFF WBC Comments: PATIENT NOT FASTINGPERFORMED BY: TERRELL [facility] Ohtjqf5673 [facility] [id number] Information: [id number] (82089) Immature Grans (Abs) 0.0 {x10E3/uL} (Normal) Range: 0.0-0.1 Immature Granulocytes 0 % (Normal) Baso (Absolute) 0.1 {x10E3/uL} (Normal) Range: 0.0-0.2 Eos (Absolute) 0.2 {x10E3/uL} (Normal) Range: 0.0-0.4 Monocytes(Absolute) 0.6 {x10E3/uL} (Normal) Range: 0.1-0.9 Lymphs (Absolute) 2.5 {x10E3/uL} (Normal) Range: 0.7-3.1 Neutrophils (Absolute) 4.5 {x10E3/uL} (Normal) Range: 1.4-7.0 Basos 1 % (Normal) Eos 2 % (Normal) Monocytes 8 % (Normal) Lymphs 32 % (Normal) Neutrophils 57 % (Normal) Platelets 246 {x10E3/uL} (Normal) Range: 150-379 RDW 13.6 % (Normal) Range: 12.3-15.4 MCHC 33.9 g/dL (Normal) Range: 31.5-35.7 MCH 29.7 pg (Normal) Range: 26.6-33.0 MCV 88 fL (Normal) Range: 79-97 Hematocrit 46.0 % (Normal) Range: 37.5-51.0 Hemoglobin 15.6 g/dL (Normal) Range: 12.6-17.7 RBC 5.25 {x10E6/uL} (Normal) Range: 4.14-5.80 WBC 7.9 {x10E3/uL} (Normal) Range: 3.4-10.8 62-Dif-113312:48 PSA (PROSTATE SPECIFIC Comments: PATIENT NOT FASTINGPERFORMED BY: [facility] HospitalHqeaul5750 [facility] [id number] ANTIGEN) (V76.44) Prostate Specific Ag, 1.0 ng/mL (Normal) Range: 0.0-4.0 Serum Comments: Fransisca ECLIA methodology. .According to the [place] [employer], Serum PSA shoulddecrease and remain at undetectable levels after radicalprostatectomy. The AUA defines biochemical recurrence as an initialPSA value 0.2 ng/mL or greater followed by a subsequent confirmatoryPSA value 0.2 ng/mL or greater.Values obtained with d ifferent assay methods or kits cannot be usedinterchangeably. Results cannot be interpreted as absolute evidenceof the presence or absence of malignant disease. :06 Lipid Profile Comments: Test performed at:[facility] [address]shrx[address] [place] [address] VLDL 18 mg/dL (Normal) Range: 5-40 LDL 57 mg/dL (Normal) Range: 0-130 HDL 41 mg/dL (Normal) Comments: Reference Range HDL <40 mg/dL Low HDL Cholesterol HDL >or= 60 mg/dL High HDL Cholesterol TRIG 91 mg/dL (Normal) Range: 0-199 Comments: Serum Triglycerides Reference Interval Normal <150 mg/dL Borderline high 150 - 199 mg/dL High 200 - 499 mg/dL Very High > or = 500 mg/dL CHOL 116 mg/dL (Normal) Comments: <200 mg/dL Desirable 200-240 mg/dL Borderline >240 mg/dL High Risk 56-Gba-08313:06 Liver Profile Comments: Test performed at:[facility] [address]znlcmyf[address] [place] [address] D BILI 0.11 mg/dL (Normal) Range: 0.00-0.30 T BILI 0.30 mg/dL (Normal) Range: 0.20-1.00 ALT 46 U/L (Normal) Range: 12-78 ALK P 94 U/L (Normal) Range: 50-136 AST 29 U/L (Normal) Range: 15-37 GLOB 3.5 g/dL (Normal) Range: 2.7-4.2 ALB 3.6 g/dL (Normal) Range: 3.4-5.0 T PROT 7.1 g/dL (Normal) Range: 6.4-8.2 1-Oee-642873:00 LIPID VLDL 22 mg/dL (Normal) Range: 5-40 LDL 47 mg/dL (Normal) Range: 0-130 HDL 51 mg/dL (Normal) Comments: Reference RangeHDL <40 mg/dL Low HDL CholesterolHDL >or= 60 mg/dL High HDL Cholesterol TRIG 111 mg/dL (Normal) Range: 0-199 Comments: Serum Triglycerides Reference IntervalNormal <150 mg/dLBorderline high 150 - 199 mg/dLHigh 200 - 499 mg/ dLVery High > or = 500 mg/dL CHOL 120 mg/dL (Normal) Comments: <200 mg/dL Epwgqzmdn137-170 mg/dL Borderline>240 mg/dL High Risk 0-Yne-020117:00 LIVER BID 0.18 mg/dL (Normal) Range: 0.00-0.30 BIT 0.60 mg/dL (Normal) Range: 0.00-4.00 ALT 51 U/L (Normal) Range: 12-78 ALK 99 U/L (Normal) Range: 50-136 AST 27 U/L (Normal) Range: 15-37 ALB 4.2 g/dL (Normal) Range: 3.4-5.0 TPROT 7.6 g/dL (Normal) Range: 6.4-8.2 21-Xgv-96639:12 AORTA Radiology Report See Note (Normal) Comments: PROCEDURES: ULTRASOUND AORTA REASON FOR EXAM: Male, 66 years old. Family history of abdominalaorticaneurysm. TECHNIQUE: Ultrasound evaluation of the aorta was performed with real-timeand static gr ay-scale imaging. COMPARISON: None. FINDINGS:There is mild atherosclerotic plaque formation of the abdominal aorta. Aorta measures: Proximal 2.1 cm. Middle 1.8 cm. Distal 1.8 cm.Aorta measure bray sversely: Proximal 2.3 cm. Middle 2.3 cm. Distal1.9cm. Right iliac artery measures: 0.8 cm.Right iliac artery measure transversely: 1.0 cm. Left iliac artery measures: 0.9 cm.Left iliac artery beverley sure transversely: 0.6 cm. There is no demonstrated aneurysm.. IMPRESSION:Mild atherosclerotic plaque formation. Signed:Abel Matthews M.D.May 27, 2012 at 10:42:09 AM [id number] zully Signed GP/GP If you are the referring physician and would like to consult with theradiologist who provided this interpretation, please contact [facility] Em at [phone]. If this radi ologist is unavailable, youwill be directed to another radiologist to assist. If you are a patient with a question regarding this report, pleasecontactyour referring physician directly. Professional Int erpretation Provided By: [employer]ge, Phone , These documents contain legally protected and confidential healthinformation intended only for the use of the individual or en tity namedabove. If you are not the intended recipient, you are hereby notifiedthatany disclosure, copying, distribution, or other use of these documents isstrictly prohibited. If you have received this information in error,pleasenotify the sender immediately and arrange for the return or destructionofthese documents. Dictated on 05/27/12 0827 by Janice Matthews MDranscribed on 05/27/12 1103 by ITS IMPORTSign by Abel Matthews MD on 05/27/12 110 Sign by: Abel Matthews MD [id number]-[id number]:00 MRA HEAD WITHOUT CONTRAST Radiology Report See Note (Normal) Comments: PROCEDURE: MRA OF THE HEAD WITHOUT CONTRAST REASON FOR EXAM: Male, 66 years old. Family history of brainaneurysms. TECHNIQUE: 3-D ufcl-mo-dlkyji (TOF) imaging was performed with MIPs.Thestudy wa s performed unenhanced. COMPARISON: MRI brain -- 05/27/12. FINDINGS:Normal bilateral petrous carotid arteries. Normal right cavernouscarotidartery with a normal supraclinoid bifurcation. Normal left cavernouscarotid artery with a normal supraclinoid bifurcation. Normal right A1 segments of the anterior cerebral artery. Normal left A9rqxmmvaw of the anterior cerebral artery. Normal intact anterio rcommunicating artery (ACOM). Normal bilateral A2 segments of theanteriorcerebral arteries. Normal right M1 and M2 segments of the middle cerebral arteries, with anormal M1 bifurcation. Normal left M 1 and M2 segments of the middlecerebral arteries, with a normal M1 bifurcation. Small right posterior communicating artery (PCOM) only subtly visualizedonsource imaging. Small left posterior communicat ing artery (PCOM) onlysubtly visualized on source imaging. Normal bilateral vertebral arteries. Right vertebral artery is dominant.Normal basilar artery with a normal basilar bifurcation. The visuali zedbilateral superior cerebellar (SCA) arteries are normal. Normal bilateral P1, P2 and visualized P3 segments of the posteriorcerebral arteries. There is no demonstrated aneurysm of the council of Willi s. There is nomajor vessel occlusion or hemodynamically significant stenosis. IMPRESSION:Normal MRA of the head. No evidence of aneurysm. Signed:Yvonne Ramos M.D.May 27, 2012 at 8:42:02 PM EST [phone] Signed LL/LL If you are the referring physician and would like to consult with theradiologist who provided this interpretation, please contact Yvonne Pinto M.D. at [phone]. If this radiologist is unavailable, you willbe directed to another radiologist to assist. If you are a patient with a question regarding this report, pleasecontactyour referring physician directly. Professional Interpretation Provided By: Package Concierge, Phone , PROCEDURE: MRI BRAIN WITHOUT CONTRAST REASON FOR EXAM: Male, 66 years old. Family history of aneurysms . TECHNIQUE: Standardized multiplanar fat and water weighted pulsesequences were obtained. COMPARISON: MRA brain -- 05/27/12. FINDINGS:Normal size of the ventricles and extra-axial spaces for the pa mejiaintegris [facility].There are multiple white matter hyperintensities, distributed throughoutthe deep white matter tracts of the cerebral hemispheres, consistent withmoderate chronic white matter ischemic changes . Normal bilateral basal ganglia. Normal thalami. There is no extra-axialfluid accumulation. Normal flow voids within the major intracranial circulation suggestingpatency by spin echo criteria. Normal sella turcica, pituitary gland, infundibular stalk, optic chiasmandhypothalamus. Normal tectal plate and pineal gland. Normal midbrain, areli and medulla. Normal cerebellum. Normal basalcisterns. No rmal bilateral temporal bones. Normal bilateral internalauditory canals. No demonstrated orbital abnormality, within the constraints of a routinebrain study. There is mild mucosal inflammatory disease in the ethmoidaircells anteriorly, minimal to mild mucosal inflammatory disease in therightfrontal sinus and very minimal mucosal inflammatory disease in themaxillary sinuses. Normal calvarium and skul l base. Normal visualizedsofttissue structures. Normal visualized upper cervical spine. IMPRESSION:No acute intracranial process, intracranial mass lesion, or intracranialhemorrhage. Moderate supraten torial white matter disease consistent with chronicwhitematter ischemic changes. Minimal to mild mucosal inflammatory disease in the paranasal sinuses asdescribed above. Signed:Yvonne Ramos M.D.Dece 2011 at 8:45:08 PM [id number] Signed LL/LL If you are the referring physician and would like to consult with theradiologist who provided this interpretation, please contact Ricarda Pinto M.D. at [phone]. If this radiologist is unavailable, you willbe directed to another radiologist to assist. If you are a patient with a question regarding this report, pleasecontactyour referring physician directly. Professional Interpretation Provided By: Package Concierge, Phone , These documents contain legally protected and confidential healthinformation in tended only for the use of the individual or entity namedabove. If you are not the intended recipient, you are hereby notifiedthatany disclosure, copying, distribution, or other use of these documents i sstrictly prohibited. If you have received this information in error,pleasenotify the sender immediately and arrange for the return or destructionofthese documents. Dictated on 05/27/12 0745 by SUZIE RAMOS MDATranscribed on 05/27/122048 by ITS IMPORTSign by YVONNE RAMOS MD on 05/27/122049 Sign by: YVONNE RAMOS MD 16-Nov-20118:33 LOWER EXT.JOINT ONLY (ROUTINE) Radiology Report See Note (Normal) Comments: PROCEDURE: MRI LEFT HIP REASON FOR EXAM: Male, 66 years old. Low back pain with radiculopathy.Left hip and left leg pain for one month. No known injury. TECHNIQUE: Standardized fat and water weig hted pulse sequences wereobtained in all 3 orthogonal planes. COMPARISON: Radiographs of October 26, 2011 FINDINGS:Normal hip joint without articular joint space narrowing. There is bonemarrow edema in t he femoral neck extending into the intertrochantericregion (coronal series 8 images 10-17. There is also a small jointeffusion (axial series 12 images 9- 14). There is relative preservationofthe femora l head at this time. The findings are most compatible withtransient osteoporosis (bone marrow edema) of the proximal femur. Thereisno demonstrated labral tear. Normal acetabulum. Normal femoral head. Normal femoral neck andintratrochanteric region. Normal gluteus minimus, medius and iliopsoas tendons and distalinsertions. There is no trochanteric, iliopsoas or iliopectineal bursitis. Normal superi or and inferior pubic rami. Normal pubic symphysis. Normalischial tuberosity. Normal origin of the hamstring tendons. Normal visualized iliac wing, sacroiliac joint, and sacral ala. Normal visualized soft tissue structures of the pelvis. IMPRESSION:Bone marrow edema in the left femoral neck as described. Findings aremostcompatible with transient osteoporosis/bone marrow edema of the proximalfemur. There is a small joint effusion. No other significant abnormality is identified. Signed:Rachel Chu 2011 at 11:11:02 AM EDTElectronically Signed TP/TP Professional Interpretation Provided By: [facility], , To consult with a radiologist regarding this report, please call our [id number] line @ Dictated on 0848 by Sanchez Rodriguez MDTranscribed on 11/16/11 1116 by ITS IMPORTSign by Sanchez Rodriguez MD on 11/16/11 1117 Sign by: Sanchez Rodriguez MD 16-Nov-20118:33 SPINE, LUMBAR (ROUTINE) Radiology Report See Note (Normal) Comments: PROCEDURE: MRI LUMBAR SPINE WITHOUT CONTRAST REASON FOR EXAM: Male, 66 years old. Low back pain for one monthradiating to the left lower extremity. History of prior lumbar [id number]. TECHNIQUE : Standardized fat and water weighted pulse sequences wereobtained in the sagittal and axial planes. COMPARISON: None FINDINGS: T12-L1: Sagittal imaging only. Normal disc height and hydration,anter iorendplate spondylosis, and posterior annular disc bulging with annulartearon the right. Normal facet joints and neural foramina. Normal centralcanal (T2 sagittal series image 7). Normal lumbar lordo sis. There is no substantial scoliosis. Normal conusmedullaris that terminates at the L1 level. L1-2: Disc desiccation, Normal disc height, Schmorl's node at L2,anteriorendplate spondylosis, and post erior spondylotic endplate change/ annulardisc bulging. Mild facet arthrosis with low volume facet effusions andnormal neural foramina. Normal central canal and lateral recesses (M2euccr series image 23). L2-3: Disc desiccation, mild loss of disc height, shallow Schmorl'snodesat the opposing endplates, anterior endplate spondylosis, and posteriorbroad-based disc herniation of the protrusion type gr eatest bilaterallyandgreater in the right pre-foraminal/foraminal region measuring up to 3.5mm(AP). There is flattening of the ventral thecal sac with questionableimpingement of the right L3 nerve root . Minimal facet arthrosis with lowvolume facet effusions, ligamentous hypertrophy, and mild to moderateleftand mild right noncompressive neural foraminal narrowing. Normal centralcanal and lateral rec esses (T1 and T2 axial series image 17 and 18). L3-4: Disc desiccation, Normal disc height of anterior endplatespondylosis, and posterior spondylotic endplate change/ annular discbulging. Minimal face t arthrosis and normal neural foramina. Normalcentral canal and lateral recesses (T1 and T2 axial series image 14). L4-5: Slight disc desiccation, Normal disc height, anterior endplatespondylosis, and posterior spondylotic endplate change/ annular discbulging. Mild facet arthrosis with low volume facet effusions, minimalnoncompressive neural foraminal narrowing. Normal central canal andlateral rec esses (T1 and T2 axial series image 8). L5-S1: Collapse of the disc, disc desiccation, degenerative endplateirregularity and marrow signal change, mild to moderate anterior endplatespondylosis, interva l left hemilaminectomy, and posterior spondyloticendplate change/ annular disc bulging. Mild facet arthrosis with lowvolume facet effusions and moderate medial neural foraminal narrowingwithpotential f or bilateral neural impingement. Because of postsurgicalchangehowever recommend postcontrast scanning for complete evaluation. Normal visualized sacral ala. Normal visualized paraspinous soft tissue st ructures. IMPRESSION:T12-L1 decreasing size of disc protrusion previously noted on the right,persistent annular disc bulging with annular tear on the right. L1-2, L3-4, L4-5 stable -- spondylotic endpla te change/ annular discbulging, facet arthrosis. L2-3 stable -- broad-based disc protrusion greater to the right,questionable impingement of the right L3 nerve root, facet arthrosis. L5-S1 interval left hemilaminectomy, resection of previously noted discextrusion, further advanced degenerative disc disease with collapse ofthedisc, possible impingement of the exiting L5 nerve roots, facetarthrosis.Fely use of postsurgical change recommend postcontrast scanning forcompleteevaluation. Signed:Yvonne Ramos M.D.November 16, 2011 at 11:56:02 AM EDTElectronically Signed LL/LL Professional Interpretation Prov ided By: [employer], , To consult with a radiologist regarding this report, please call our [id number] line @ Dictated on 0 11/16/11 0943 by RICHARD SOTO,SUZIEATranscribed on 11/16/11 1201 by ITS IMPORTSign by YVONNE RAMOS MD on 11/16/11 1202 Sign by: YVONNE RAMOS MD [id number] HIP, MIN 2 VIEWS Radiology Report See Note (Normal) Comments: PROCEDURE: X-RAY - LEFT HIP REASON FOR EXAM: Male, 65 years old. Left hip pain. TECHNIQUE: Two views of the hip. COMPARISON: None. FINDINGS: Normal femoral head, neck, intertrochanteric region and visualizedproximalfemur. Normal acetabulum. Normal hip joint. Normal visualized superior and inferior pubic rami and ischialtuberosities. IMPRESSION:Normal x-ray examination of the hip. Signed:Hua Matthews M.D.October 27, 2011 at 9:59:04 AM EDTElectronically Signed GP/GP Professional Interpretation Provided By: [employer], , To co nsult with a radiologist regarding this report, please call our [id number] line @ Dictated on 10/26/11 1400 by Byron SOTO,GabrieleTranscribed on 10/27/11 1004 by ITS IMPORTSign by Abel Sousa MD on 10/27/11 1005 Sign by: Abel Matthews MD :26 LIPID CHOL 129 mg/dL (Normal) Comments: <200 mg/dL Wttrljajm882-354 mg/dL Borderline>240 mg/dL High Risk HDL 56 mg/dL (Normal) Comments: Reference RangeHDL <40 mg/dL Low HDL CholesterolHDL >or= 60 mg/dL High HDL Cholesterol LDL 63 mg/dL (Normal) Range: 0-130 TRIG 48 mg/dL (Normal) Comments: Serum Triglycerides Reference IntervalNormal <150 mg/dLBorderline high 150 - 199 mg/dLHigh 200 - 499 mg/ dLVery High > or = 500 mg/dL VLDL 10 mg/dL (Normal) Range: 5-40 :26 LIVER ALB 3.9 g/dL (Normal) Range: 3.4-5.0 ALK P 93 U/L (Normal) Range: 50-136 ALT 40 U/L (Normal) Range: 12-78 AST 23 U/L (Normal) Range: 15-37 D BILI 0.10 mg/dL (Normal) Range: 0.00-0.30 T BILI 0.20 mg/dL (Normal) Range: 0.00-1.00 T PROT 7.4 g/dL (Normal) Range: 6.4-8.2 :39 LIPID HDL 52 mg/dL (Normal) Comments: Reference RangeHDL <40 mg/dL Low HDL CholesterolHDL >or= 60 mg/dL High HDL Cholesterol LDL 71 mg/dL (Normal) Range: 0-130 TRIG 95 mg/dL (Normal) Comments: Serum Triglycerides Reference IntervalNormal <150 mg/dLBorderline high 150 - 199 mg/dLHigh 200 - 499 mg/ dLVery High > or = 500 mg/dL VLDL 19 mg/dL (Normal) Range: 5-40 CHOL 142 mg/dL (Normal) Comments: <200 mg/dL Walqwkldw685-866 mg/dL Borderline>240 mg/dL High Risk :39 LIVER D BILI 0.09 mg/dL (Normal) Range: 0.00-0.30 ALB 3.8 g/dL (Normal) Range: 3.4-5.0 ALK P 92 U/L (Normal) Range: 50-136 ALT 40 U/L (Normal) Range: 12-78 AST 25 U/L (Normal) Range: 15-37 T BILI 0.40 mg/dL (Normal) Range: 0.00-1.00 T PROT 7.5 g/dL (Normal) Range: 6.4-8.2 58-Cjd-20854:34 HIP, MIN 2 VIEWS Radiology Report See Note (Normal) Comments: Exam Number: [id number] CLINICAL PROBLEMLeft hip pain similar to that prior to a left femoral graft made 10years ago. TWO VIEWS LEFT HIP FINDINGSThere is no evidence of fracture dislocation or other willa arentlysignificant abnormality. The articular cartilage appears wellpreserved. There is a linear density which is less than 2 mm in widthand about 8 mm in length. There appear to be 2 or 3 other tiny lineardensities which are about a millimeter in width and about 4 mm inlength overlying the left femoral head and neck. These did not quitereach the density of metallic objects and they probably repre sentedsome unusual arrangement of cortical bone and perhaps even medullarybone in the case of the smaller densities. It is very unlikely thatthese are of any clinical significance as they rotate with t he femoralhead and are probably not rusted metallic surgical clips. IMPRESSION1. Unusual linear densities probably of no clinical consequence overlying the femoral head and neck.2. Otherwise entire ly normal left hip radiography. Reported By: URMILA THOMAS M.D. 53-Szw-98090:18 CTA NECK W/WO CONTRAST Radiology Report See Note (Normal) Comments: Exam Number: [id number] CT ARTERIOGRAM NECK WITHOUT AND WITH CONTRAST CLINICAL STATEMENTAbnormal Doppler, carotid stenosis. Helical scanning through the neck used 100 mL Isovue 370 intravenou senhancement . There is good vascular opacity. Data was evaluated atthe 3D work station with selected images returned for PACS archive. Arch mediastinum: There is a normal 3-vessel origin ofbrachiocephalic samuel kamala from the aortic arch. There isarteriosclerotic calcification along the aortic arch without stenosisalong the right innominate artery or left common carotid artery in thesuperior mediastinum. Ther e is eccentric noncalcified plaque alongthe proximal left subclavian artery with lumen narrowing up to 60%proximal to the left vertebral artery origin. Right cervical carotid: The right common caroti d artery isnonstenotic. At the bifurcation the internal carotid artery is themedial branch. There is no hemodynamically-significant stenosis. There is some mild calcified plaque around the origin of t he rightexternal carotid artery. The internal carotid artery is patent to thecarotid canal. Left cervical carotid: The common carotid artery in the neck isunremarkable. At the carotid bifurcation t he internal carotid arterybranches posterolaterally. There is posterior plaque. A thinweb-like narrowing on the order of 30% is present at the bifurcationand elevated calcified plaque 1 to 2 cm above the bifurcation resultsin a 2nd smooth stenosis on the order of 30 to 50%. Above thecalcified plaque the internal carotid artery is patent withouttortuosity or stenosis to the skull base. Vertebral art eries: The right vertebral artery is dominant. There isno stenosis at the right vertebral origin or through its cervicalcourse. The vertebral is patent to the inferior portion of thebasilar artery in cluded on this study. The left vertebral artery isrelatively small. There appears to be a mild degree of narrowing atthe left vertebral origin, less than 30%. The cervical course of thevertebral samuel ry and left vertebral along the clivus are normal. Nonvascular findings: No adenopathy or mass is seen. The includedportions of facial sinuses are generally well aerated with a tinyretention cyst post eriorly in the left maxillary antrum. Orbitalcontents are also partially included and unremarkable. Salivaryglands and thyroid lobes are within normal limits. There is noencroachment on the airway. The upper lungs are well aerated withsome scarring at the apices and minimal subpleural emphysema. IMPRESSION1. No hemodynamically-significant stenosis is identified in the neck.At the left carotid bif urcation there is mild narrowing by ashort-segment soft plaque followed by a 2nd smooth mild narrowing bycalcified plaque along the internal carotid artery. Neither siteexceeds 30% diameter stenosis. 2. 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 3. Bilateral pulmonary apical scarring and mild emphysema. Reported By: MARLEY GABRIEL M.D. :48 AORTA Radiology Report See Note (Normal) Comments: Exam Number: [id number] ULTRASOUND OF ABDOMINAL AORTA HISTORYBounding aortic abdominal pulse. High-resolution real-time sector images were obtained. The proximalaorta measures 1.6 x 1.9 cm. The midaort a measures 1.3 x 1.5 cm. Thedistal aorta measures 1.3 x 1.6 cm. There is slight plaque seen inthe distal aorta. The right proximal iliac artery measures 7 x 7 mm. The left proximal iliac artery measu res 8 x 5 mm. IMPRESSIONThere is no abnormality of caliber of the abdominal aorta. There isslight plaque seen in the distal aorta. Reported By: VONNIE LINCOLN M.D. :45 SPINE, LUMBAR (ROUTINE) Radiology Report See Note (Normal) Comments: Exam Number: [id number] MRI OF THE LUMBAR SPINE WITHOUT CONTRAST ENHANCEMENT CLINICAL STATEMENTLow back pain.Left hip pain. COMPARISON STUDIESNone. TECHNIQUESagittal and axial T1 and T2 weighted images. Vertebral heights and alignment are maintained. The conus medullarisis normal. There is no spinal canal stenosis. There is a small right paracentral or posterior disc protrusion at vbjI78-P5 level indenting the thecal sac, but not compressing the conus. L1-2No disc herniation or spinal canal or foraminal stenosis. The facetjoints are unremarkable. L2- 3There is a mild right foraminal disc protru rosalia indenting the thecalsac, not significantly encroaching on the neural foramen. The facetjoints are normal. L3-4The L3-4 discs is normal. L4-5The L4-5 disc is normal. L5-E4Fbxvy is marked decrease i n height and signal intensity of theintervertebral disc, with vacuum disc phenomenon and mild diffusebulge of the disc annulus. There is also mild bilateral facetarthropathy. The combination is causin g severe foraminal stenosesbilaterally. There is no spinal canal stenosis. Bone marrow edema ispresent within the L5-S1 vertebral segment adjacent to theintervertebral disc. IMPRESSION1. Severe deg enerative disc disease at L5-S1, with adjacent bone marrow edema and moderate to severe bilateral foraminal stenoses.2. Mild right paracentral and foraminal disc protrusion at the L2-3 level.3. Mild right paracentral/posterior disc protrusion at T12-L1 level. Reported By: ANA CINTRON M.D. [id number]-Qxg-[id number]:26 PSA (PROSTATE SPECIFIC Comments: PATIENT NOT FASTINGClinical Information: ADD DRAW FEE [id number] ADD J [id number] PERFORMED BY: [facility] [facility] [id number] ANTIGEN) (V76.44) Prostate Specific Ag, Serum 0.8 ng/mL (Normal) Range: 0.0-4.0 Comments: VaavudIA methodology. .According to the [place] [employer], PSA should beundetectable after radical prostatectomy. A PSA of less than0.5 ng/mL (or undetectable) is not likely to be associated withdisease recurrence within five years of treatment.Values obtained with different assay methods or kits cannot be usedinterchang eably. Results cannot be interpreted as absolute evidenceof the presence or absence of malignant disease. :24 KRISTIN-D [id number] KRISTIN-DIRECT 16 AU/mL (Normal) Range: 0-99 Comments: Negative <100 Equivocal 100 - 120 Positive >120 :24 B12/FOLATES FOLATES,SERUM >24.00 ng/mL (Normal) VITAMIN B12 458 pg/mL (Normal) Range: 211-911 :24 C-REACTIVE PROT 1.39 mg/L (Normal) Range: 0.0-6.0 Comments: Test performed using the Dimension C-Reactive ProteinExtended Range assay method. This assay meets the AHA/CDC 2003 recommendations fordetermining patients at high risk for cardiovasculardisease. Reference: High risk CRP >3.0 mg/L :24 CBCD,SMEAR DIFF BAND 1 % (Normal) Range: 0-5 CELLS COUNTED 100 (Normal) EOS 4 % (Normal) Range: 0-5 HCT 44.4 % (Normal) Range: 40-54 HGB 15.2 g/dL (Normal) Range: 14.0-18.0 LYMPH 44 % (Abnormal) Range: 19-41 MCH 30.5 pg (Normal) Range: 27.0-32.0 MCHC 34.2 g/dL (Normal) Range: 32-36 MCV 89.0 fL (Normal) Range: 80-94 MONOCYTE 3 % (Normal) Range: 0-10 PLT 254 K/mm3 (Normal) Range: 150-450 PLT EST SeeNote (Normal) Comments: Result: ADEQUATE RBC 5.00 {M/mm3} (Normal) Range: 4.6-6.2 RDW 13.4 % (Normal) Range: 11.6-14.6 RED CELL MORPH SeeNote {NORMAL} (Normal) Comments: Result: NORM C+C SEGS 48 % (Normal) Range: 47-70 WBC 6.7 K/mm3 (Normal) Range: 4.4-11.0 :24 COMP METABOLIC A/G 1.3 {RATIO} (Normal) Range: 0.9-2.4 ALB 4.1 g/dL (Normal) Range: 3.4-5.0 ALK P 89 U/L (Normal) Range: 50-136 ALT 62 U/L (Normal) Range: 30-65 AST 34 U/L (Normal) Range: 15-37 BUN 21 mg/dL (Abnormal) Range: 7-18 BUN/CRE 19.1 {RATIO} (Normal) Range: 10-20 CA 8.7 mg/dL (Normal) Range: 8.5-10.1 CL 106 mmol/L (Normal) Range: 98-107 CO2 24.1 mmol/L (Normal) Range: 21.0-32.0 CREAT,SERUM 1.1 mg/dL (Normal) Range: 0.8-1.3 GAP 9 (Normal) Range: 5-15 GLOB 3.1 g/dL (Normal) Range: 2.7-4.2 GLU 98 mg/dL (Normal) Range: 70-110 K 4.2 mmol/L (Normal) Range: 3.5-5.1 NA 139 mmol/L (Normal) Range: 136-145 T BILI 0.38 mg/dL (Normal) Range: 0.00-1.00 T PROT 7.2 g/dL (Normal) Range: 6.4-8.2 :24 ESR SED RATE 1 mm/h (Normal) Range: 0-20 :24 LIPID LDL 61 mg/dL (Normal) Range: 0-130 VLDL 17 mg/dL (Normal) Range: 5-40 CHOL 126 mg/dL (Normal) Comments: <200 mg/dL Desirable 200-240 mg/dL Borderline >240 mg/dL High Risk HDL 48 mg/dL (Normal) Comments: Reference Range HDL <40 mg/dL Low HDL Cholesterol HDL >or= 60 mg/dL High HDL Cholesterol TRIG 83 mg/dL (Normal) Comments: Serum Triglycerides Reference Interval Normal <150 mg/dL Borderline high 150 - 199 mg/dL High 200 - 499 mg/dL Very High > or = 500 mg/dL :24 MICROALBUMIN,UR 11.5 mg/L (Normal) :24 RA LATEX 6502 5.5 {IU/mL} (Normal) Range: 0.0-13.9 Comments: Performed At: [address] [id number] :24 TSH 1.50 {uIU/mL} (Normal) Range: 0.34-4.82 :19 Urinalysis, Office ([id number]) Comments: RESOLVED UA - BILIRUBIN Small (Normal) UA - BLOOD Negative (Normal) UA - GLUCOSE Negative (Normal) UA - KETONES Negative mg/dL (Normal) UA - LEUKOCYTE ESTERASE Negative (Normal) Comments: aw UA - NITRITE Negative (Normal) UA - PH 6.0 (Normal) UA - PROTEIN 30 mg/dL (Normal) UA - SPECIFIC GRAVITY 1.025 (Normal) URINE UROBILINGN TASH TIMED Normal mg/dL (Normal) :55 CBCD,SMEAR DIFF Comments: DR. GAINES ORDERED: LIPID/LIVER. BAND 1 % (Normal) Range: 0-5 BASOPHIL 1 % (Normal) Range: 0-1 CELLS COUNTED 100 (Normal) EOS 4 % (Normal) Range: 0-5 HCT 43.8 % (Normal) Range: 40-54 HGB 14.9 g/dL (Normal) Range: 14.0-18.0 LYMPH 32 % (Normal) Range: 19-41 MCH 30.7 pg (Normal) Range: 27.0-32.0 MCHC 34.1 g/dL (Normal) Range: 32-36 MCV 90.1 fL (Normal) Range: 80-94 MONOCYTE 4 % (Normal) Range: 0-10 PLT 228 K/mm3 (Normal) Range: 150-450 PLT EST SeeNote (Normal) Comments: Result: ADEQUATE PLT MORPH GIANT (Normal) RBC 4.86 {M/mm3} (Normal) Range: 4.6-6.2 RDW 13.7 % (Normal) Range: 11.6-14.6 RED CELL MORPH SeeNote {NORMAL} (Normal) Comments: Result: NORM C&C SEGS 58 % (Normal) Range: 47-70 WBC 6.6 K/mm3 (Normal) Range: 4.4-11.0 :55 COMP METABOLIC Comments: DR. GAINES ORDERED: LIPID/LIVER. A/G 1.2 {RATIO} (Normal) Range: 0.9-2.4 ALB 3.7 g/dL (Normal) Range: 3.4-5.0 ALK P 85 U/L (Normal) Range: 50-136 ALT 60 [iU]/L (Normal) Range: 30-65 AST 37 U/L (Normal) Range: 15-37 BUN 19 mg/dL (Abnormal) Range: 7-18 BUN/CRE 19.0 {RATIO} (Normal) Range: 10-20 CA 8.1 mg/dL (Abnormal) Range: 8.5-10.1 CL 105 mmol/L (Normal) Range: 98-107 CO2 24.8 mmol/L (Normal) Range: 21.0-32.0 Comments: Please Note Reference Interval Change CREAT,SERUM 1.0 mg/dL (Normal) Range: 0.8-1.3 GAP 9 (Normal) Range: 5-15 GLOB 3.1 g/dL (Normal) Range: 2.7-4.2 Comments: Please Note Reference Interval Change GLU 101 mg/dL (Normal) Range: 70-110 K 4.3 mmol/L (Normal) Range: 3.5-5.1 NA 139 mmol/L (Normal) Range: 136-145 T BILI 0.38 mg/dL (Normal) Range: 0.00-1.00 T PROT 6.8 g/dL (Normal) Range: 6.4-8.2 :55 D BILI 0.10 mg/dL (Normal) Comments: DR. GAINES ORDERED: LIPID/LIVER. Range: 0.00-0.30 :55 LIPID Comments: DR. GAINES ORDERED: LIPID/LIVER. CHOL 107 mg/dL (Normal) Comments: <200 mg/dL Desirable 200-240 mg/dL Borderline >240 mg/dL High Risk HDL 43 mg/dL (Normal) Comments: Reference Range HDL <40 mg/dL Low HDL Cholesterol HDL >or= 60 mg/dL High HDL Cholesterol LDL 48 mg/dL (Normal) Range: 0-130 TRIG 78 mg/dL (Normal) Comments: Serum Triglycerides Reference Interval Normal <150 mg/dL Borderline high 150 - 199 mg/dL High 200 - 499 mg/dL Very High > or = 500 mg/dL VLDL 16 mg/dL (Normal) Range: 5-40 :55 MICROALBUMIN,UR 14.4 mg/L (Normal) Comments: DR. GAINES ORDERED: LIPID/LIVER. :55 PSA,TOT SCREEN 0.63 ng/mL (Normal) Comments: DR. GAINES ORDERED: LIPID/LIVER. Range: 0.00-4.00 Comments: This test was performed using the TPSA method for the[employer] chemistry system.Values obtained with different assay methods cannot be usedinterchangably.When changing PSA assays in the course of monito ring apatient, additional sequential testing should be carriedout to confirm baseline values. :55 ROUTINE UA Comments: DR. GAINES ORDERED: LIPID/LIVER. BILIRUBIN URINE SeeNote (Normal) Comments: Result: NEGATIVE CLARITY CLEAR (Normal) COLOR YELLOW (Normal) GLUCOSE, UR SeeNote (Normal) Comments: Result: NEGATIVE KETONE UR SeeNote mg/dL (Normal) Comments: Result: NEGATIVE LEUK ESTERASE SeeNote (Normal) Comments: Result: NEGATIVE NITRITE UR SeeNote (Normal) Comments: Result: NEGATIVE OCCULT BLOOD-UR SeeNote (Abnormal) Comments: Result: TRACE-INTACT pH UR 5.0 (Normal) Range: 5.0-8.0 PROT DIPSTX SeeNote (Normal) Comments: Result: NEGATIVE SP.GR. DIPSTX >=1.030 (Normal) Range: 1.002-1.030 UROBILI 0.2 EU/dl (Normal) Range: 0.2 - 1.0 :55 TSH 1.37 {uIU/mL} (Normal) Comments: DR. GAINES ORDERED: LIPID/LIVER. Range: 0.34-4.82 :31 LIPID CHOL 111 mg/dL (Normal) Comments: <200 mg/dL Desirable 200-240 mg/dL Borderline >240 mg/dL High Risk HDL 43 mg/dL (Normal) Comments: Reference Range HDL <40 mg/dL Low HDL Cholesterol HDL >or= 60 mg/dL High HDL Cholesterol LDL 56 mg/dL (Normal) Range: 0-130 TRIG 61 mg/dL (Normal) Comments: Serum Triglycerides Reference Interval Normal <150 mg/dL Borderline high 150 - 199 mg/dL High 200 - 499 mg/dL Very High > or = 500 mg/dL VLDL 12 mg/dL (Normal) Range: 5-40 :31 LIVER ALB 3.8 g/dL (Normal) Range: 3.4-5.0 ALK P 99 U/L (Normal) Range: 50-136 ALT 57 [iU]/L (Normal) Range: 30-65 AST 32 U/L (Normal) Range: 15-37 D BILI 0.07 mg/dL (Normal) Range: 0.00-0.30 T BILI 0.39 mg/dL (Normal) Range: 0.00-1.00 T PROT 7.3 g/dL (Normal) Range: 6.4-8.2 :32 LIVER ALB 4.1 g/dL (Normal) Range: 3.4-5.0 ALK P 94 U/L (Normal) Range: 50-136 ALT 63 [iU]/L (Normal) Range: 30-65 AST 28 U/L (Normal) Range: 15-37 D BILI 0.06 mg/dL (Normal) Range: 0.00-0.30 T BILI 0.39 mg/dL (Normal) Range: 0.00-1.00 T PROT 7.3 g/dL (Normal) Range: 6.4-8.2 :32 PFLIP CHOL 113 mg/dL (Normal) Comments: <200 mg/dL Desirable 200-240 mg/dL Borderline >240 mg/dL High Risk HDL 49 mg/dL (Normal) Comments: Reference Range HDL <40 mg/dL Low HDL Cholesterol HDL >or= 60 mg/dL High HDL Cholesterol LDL 52 mg/dL (Normal) Range: 0-130 TRIG 58 mg/dL (Normal) Comments: Serum Triglycerides Reference Interval Normal <150 mg/dL Borderline high 150 - 199 mg/dL High 200 - 499 mg/dL Very High > or = 500 mg/dL VLDL 12 mg/dL (Normal) Range: 5-40 Plan of Care Name Dates Details Instructions Lumbar stenosis with neurogenic claudication : Reviewed Hand Bobbin Cleaner Letter Indication: Lumbar stenosis with neurogenic claudication Peripheral vascular disease : Reviewed Hand Bobbin Cleaner Letter Indication: Peripheral vascular disease Non-smoker : Eprescribed prescriptions (G8553) Indication: Non-smoker Lumbar stenosis with neurogenic claudication : Continue Current Prescription(s) Indication: Lumbar stenosis with neurogenic claudication Lumbar stenosis with neurogenic claudication : Reviewed Hand Bobbin Cleaner Letter Indication: Lumbar stenosis with neurogenic claudication Annual Medicare Physical WITH abnormal findings (Renamed from Encounter for general adult medical examination with abnormal findings) : fall reduction handout Indication: Annual Medicare Physical WITH abnormal findings (Renamed from Encounter for general adult medical examination with abnormal findings) Annual Medicare Physical WITH abnormal findings (Renamed from Encounter for general adult medical examination with abnormal findings) : elderly packet given Indication: Annual Medicare Physical WITH abnormal findings (Renamed from Encounter for general adult medical examination with abnormal findings) Annual Medicare Physical WITH abnormal findings (Renamed from Encounter for general adult medical examination with abnormal findings) : advance planning information Indication: Annual Medicare Physical WITH abnormal findings (Renamed from Encounter for general adult medical examination with abnormal findings) Encounter for screening for malignant neoplasm of colon (Renamed from Special screening for malignant neoplasms, colon) : *Colon Cancer Screening Indication: Encounter for screening for malignant neoplasm of colon (Renamed from Special screening for malignant neoplasms, colon) Hypertension with heart disease : Continue Current Prescription(s) Indication: Hypertension with heart disease Coronary artery disease : Continue Current Prescription(s) Indication: Coronary artery disease Pre-operative exam (Renamed from Encounter for pre-operative examination) : Reviewed Diagnostic Tests Indication: Pre-operative exam (Renamed from Encounter for pre-operative examination) Peripheral vascular disease : Reviewed Hand Bobbin Cleaner Letter- Dr Baugh Indication: Peripheral vascular disease Hyperlipidemia, unspecified : Cholesterol mgmt Indication: Hyperlipidemia, unspecified Hypertension with heart disease : Continue Current Prescription(s) Indication: Hypertension with heart disease Coronary artery disease : Reviewed Hand Bobbin Cleaner Letter Indication: Coronary artery disease Pre-operative exam (Renamed from Encounter for pre-operative examination) : Eprescribed prescriptions (G8553) Indication: Pre-operative exam (Renamed from Encounter for pre-operative examination) Pain of left lower extremity : Reviewed Diagnostic Tests Indication: Pain of left lower extremity Pain of left lower extremity : Reviewed Hand Bobbin Cleaner Letter Indication: Pain of left lower extremity Encounter for screening for malignant neoplasm of colon (Renamed from Special screening for malignant neoplasms, colon) : *Colon Cancer Screening Indication: Encounter for screening for malignant neoplasm of colon (Renamed from Special screening for malignant neoplasms, colon) Peripheral vascular disease : Reviewed Hand Bobbin Cleaner Letter Indication: Peripheral vascular disease Heart disease, hypertensive, malignant, without heart failure : Follow up in 6 months- gen med Indication: Heart disease, hypertensive, malignant, without heart failure Hyperlipidemia, unspecified : Cholesterol mgmt Indication: Hyperlipidemia, unspecified Heart disease, hypertensive, malignant, without heart failure : HTN/CAD Red Flags Indication: Heart disease, hypertensive, malignant, without heart failure Coronary artery disease : Reviewed Hand Bobbin Cleaner Letter: Dr Palencia Indication: Coronary artery disease Dysuria : Eprescribed prescriptions (G8553) Indication: Dysuria Dysuria : Clean-Catch Urine Sample (Men): uti Indication: Dysuria VASCULAR DISEASE, NOS : Continue Current Prescription(s)- statin , asa, good bp control Indication: VASCULAR DISEASE, NOS CLAUDICATION : Reviewed Diagnostic Tests Indication: CLAUDICATION CLAUDICATION : Eprescribed prescriptions (G8553) Indication: CLAUDICATION Screening for prostate cancer : *Colon Cancer Screening Indication: Screening for prostate cancer Encounter for Medicare annual wellness exam : fall reduction handout Indication: Encounter for Medicare annual wellness exam Encounter for Medicare annual wellness exam : elderly packet given Indication: Encounter for Medicare annual wellness exam Encounter for Medicare annual wellness exam : advance planning information Indication: Encounter for Medicare annual wellness exam Sebaceous cyst : Eprescribed prescriptions (G8553) Indication: Sebaceous cyst Encounter for Medicare annual wellness exam : *Colon Cancer Screening Indication: Encounter for Medicare annual wellness exam Low back pain potentially associated with radiculopathy : Follow up if no improvement or if symptoms worsen Indication: Low back pain potentially associated with radiculopathy Low back pain potentially associated with radiculopathy : Reviewed Diagnostic Tests Indication: Low back pain potentially associated with radiculopathy Pain in unspecified hip : Reviewed Diagnostic Tests Indication: Pain in unspecified hip Low back pain potentially associated with radiculopathy : Follow up in 2 weeks with KF Indication: Low back pain potentially associated with radiculopathy Low back pain potentially associated with radiculopathy : Follow up in 2 weeks Indication: Low back pain potentially associated with radiculopathy Low back pain potentially associated with radiculopathy : Follow up in 2 weeks Indication: Low back pain potentially associated with radiculopathy Hyperlipidemia, unspecified : Reviewed Lab Indication: Hyperlipidemia, unspecified Heart disease, hypertensive, malignant, without heart failure : Reviewed Lab Indication: Heart disease, hypertensive, malignant, 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, hypertensive, malignant, without heart failure : Continue Current Prescription(s) Indication: Heart disease, hypertensive, malignant, 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 Indication: Hyperlipidemia, unspecified Hyperlipidemia, unspecified : Cholesterol - Medication Side Effects Indication: Hyperlipidemia, unspecified Hyperlipidemia, unspecified : Cholesterol - Nonprescription Treatment Indication: Hyperlipidemia, unspecified Peripheral vascular disease : Reviewed Diagnostic Tests Indication: Peripheral vascular disease Peripheral vascular disease : Continue Current Prescription(s) Indication: Peripheral vascular disease Hyperlipidemia, unspecified : Reviewed Lab Indication: Hyperlipidemia, unspecified Hyperlipidemia, unspecified : Cholesterol - Nonprescription Treatment Indication: Hyperlipidemia, unspecified Hyperlipidemia, unspecified : CHOLESTEROL MGMT. Indication: Hyperlipidemia, unspecified Hyperlipidemia, unspecified : Cholesterol - Medication Side Effects Indication: Hyperlipidemia, unspecified Coronary artery disease : Cholesterol - Nonprescription Treatment Indication: Coronary artery disease Coronary artery disease : CHOLESTEROL MGMT. 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 Indication: Hyperlipidemia, unspecified Hyperlipidemia, unspecified : Cholesterol - Medication Side Effects Indication: Hyperlipidemia, unspecified Heart disease, hypertensive, malignant, without heart failure : Continue Current Prescription(s) Indication: Heart disease, hypertensive, malignant, without heart failure Hyperlipidemia, unspecified : Continue Current Prescription(s) Indication: Hyperlipidemia, unspecified Coronary artery disease : FOLLOW UP IN 2 MONTHS Indication: Coronary artery disease Heart disease, hypertensive, malignant, without heart failure : BP MONITORING - SELF Indication: Heart disease, hypertensive, malignant, 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, hypertensive, malignant, without heart failure : Diet, Exercise, and Wt loss Indication: Heart disease, hypertensive, malignant, 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, hypertensive, malignant, without heart failure : HTN/CAD Red Flags Indication: Heart disease, hypertensive, malignant, without heart failure Coronary artery disease : HTN/CAD Red Flags Indication: Coronary artery disease Cough : Antibiotic Usage Education - Male Indication: Cough Cough : URI treament Indication: Cough Cough : URI Symptoms Indication: Cough Planned Observations FECAL OCCULT- Tubes sent home ([id number])Indication: Encounter for screening for malignant neoplasm of colon (Renamed from Special screening for malignant neoplasms, colon) On: 42-Yvt-220117:00 Request FECAL OCCULT- Tubes sent home ([id number])Indication: Encounter for screening for malignant neoplasm of colon (Renamed from Special screening for malignant neoplasms, colon) On: 53-Bif-248426:02 Request FECAL OCCULT- Tubes sent home ([id number])Indication: Encounter for Medicare annual wellness exam On: 64-Dpg-20836:22 Request PSA (PROSTATE SPECIFIC ANTIGEN) (V76.44)Indication: Screening for prostate cancer On: 52-Dkc-55491:16 Request TSH ([id number])Indication: Coronary artery disease On: 7-Djj-986337:15 Request URINALYSIS W/O MICRO ([id number])Indication: Heart disease, hypertensive, malignant, without heart failure On: 1-Wcm-358387:15 Request MICROALBUMIN: CREATININE RATIO ([id number]) AND ([id number])Indication: Heart disease, hypertensive, malignant, without heart failure On: 6-Ruj-113029:15 Request METABOLIC PANEL, COMPREHENSIVE ([id number])Indication: Heart disease, hypertensive, malignant, without heart failure On: 9-Abc-156096:15 Request LIPID PANEL (34183)Indication: Heart disease, hypertensive, malignant, without heart failure On: 8-Bay-417019:15 Request CBC WITH MANUAL DIFF ([id number])Indication: Heart disease, hypertensive, malignant, without heart failure On: 0-Pcw-787675:15 Request KRISTIN (ANTINUCLEAR ANTIBODY) (89134)Indication: Fatigue On: :09 Request C-REACTIVE PROTEIN (13313)Indication: Fatigue On: :09 Request CBC (AUTO) (20402)Indication: Fatigue On: :09 Request Folate ([id number])Indication: Fatigue On: : Request METABOLIC PANEL, COMPREHENSIVE (20367)Indication: Fatigue On: : Request RHEUMATOID FACTOR-QUANT (16925)Indication: Fatigue On: : Request SED RATE ERYTHROCYTE ([id number])Indication: Fatigue On: : Request TSH ([id number])Indication: Fatigue On: : Request VITAMIN B-12 (CYANOCOBALAMIN) ([id number])Indication: Fatigue On: : Request TSH ([id number])Indication: Heart disease, hypertensive, malignant, without heart failure On: :08 Request METABOLIC PANEL, COMPREHENSIVE ([id number])Indication: Heart disease, hypertensive, malignant, without heart failure On: :08 Request MICROALBUMIN URINE QUANT ([id number])Indication: Heart disease, hypertensive, malignant, without heart failure On: :08 Request CBC WITH MANUAL DIFF ([id number])Indication: Heart disease, hypertensive, malignant, without heart failure On: :08 Request LIPID PANEL ([id number])Indication: Heart disease, hypertensive, malignant, without heart failure On: :08 Request PSA (PROSTATE SPECIFIC ANTIGEN) (83364)Indication: Coronary artery disease On: :49 Request URINALYSIS W/O MICRO ([id number])Indication: Heart disease, hypertensive, malignant, without heart failure On: :47 Request TSH ([id number])Indication: Heart disease, hypertensive, malignant, without heart failure On: :47 Request METABOLIC PANEL, COMPREHENSIVE ([id number])Indication: Heart disease, hypertensive, malignant, without heart failure On: :47 Request MICROALBUMIN URINE QUANT ([id number])Indication: Heart disease, hypertensive, malignant, without heart failure On: :47 Request LIPID PANEL ([id number])Indication: Heart disease, hypertensive, malignant, without heart failure On: :47 Request CBC WITH MANUAL DIFF ([id number])Indication: Heart disease, hypertensive, malignant, without heart failure On: :47 Request Planned Procedures ELECTROCARDIOGRAM, COMPLETE (ECG) On: 26-May-2018 Intent ([id number])By: Angela Murphy DO, DO, Kathleen Nuclear Stress Test/Stress On: 26-May-2018 Intent SPECT/AdenosineBy: Angela Murphy DO, DO, Kathleen Radiology - Lumbar SpineBy: Katherine HUERTA, On: 01-Sep-2017 Intent Angela Del Rio DO X-RAY OF SACROILIAC JOINT ([id number])By: On: 01-Sep-2017 Intent Angela Murphy DO, DO, Kathleen X-RAY OF LEFT HIP, TWO VIEWS ([id number])By: On: 01-Sep-2017 Intent Angela Murphy DO, DO, Kathleen INTENSIVE BEHAVIORAL THERAPY TO REDUCE On: 25-Mar-2017 Intent CARDIOVASCULAR DISEASE RISK, INDIVIDUAL, QQWB-GL-IFPS, ANNUAL, 15 MINUTES ([id number])By: Angela Murphy DO, DO, Kathleen Flu Vaccine (Quadrivalent) 75809Tb: On: 18-Mar-2017 Intent Angela Murphy DO, DO, Kathleen Comments: Lot:[id number]:09/2017Dose:0.5mLRoute:IMSite:L DltdGiven By:SINAN signed ELECTROCARDIOGRAM, COMPLETE (ECG) On: 18-Mar-2017 Intent ([id number])By: Angela Murphy DO Comments: nsr acute chg Angela HUERTA MRI LUMBAR SPINE W/O CONTRAST On: 07-Oct-2016 Intent ([id number])By: Angela Murphy DO, DO, Kathleen CT CHEST SCREENING ([id number])By: Katherine On: 15-Jan-2016 Intent Angela HUERTA DO, Kathleen ELECTROCARDIOGRAM, COMPLETE (ECG) On: 15-Jan-2016 Intent ([id number])By: Angela Murphy DO Comments: sinus no acute chg - atrial rhythm-- on BB and h/o copd Angela HUERTA Carotid DopplerBy: Angela Murphy DO On: 28-Jan-2015 Intent Angela Murphy DO LE Arterial Exam - LowerBy: Katherine HUERTA, On: 28-Jan-2015 Intent Angela Del Rio DO Comments: with CLARISSA 's Radiology - Foot - LeftBy: Katherine HUERAT, On: 28-Jan-2015 Intent Angela Del Rio DO Comments: attention heel MRA - BrainBy: Angela Murphy DO On: 23-May-2012 Intent Angela Murphy DO Comments: dx family h/o (mother )brain aneurysm Ultrasound - AortaBy: Katherine HUERTA, On: 23-May-2012 Intent Angela Del Rio DO PHYSICAL THERAPY EVALUATION ([id number])By: On: 10-Nov-2011 Intent Noris Dumont CNP MRI - Lumbar Spine (IV Contrast On: 10-Nov-2011 Intent Needed)By: Noris Dumont CNP MRI - Hip(s) - LeftBy: Noris Dumont CNP On: 10-Nov-2011 Intent E Toradol Injection, 30 mg ([id number])By: On: 30-Oct-2011 Intent Noris Dumont CNP Comments: Lot #[id number]-right hipDose-30mg.mlgiven by: Marlena Burgos LPN Toradol Injection, 30 mg ([id number])By: On: 26-Oct-2011 Intent Noris Dumont CNP Comments: Lot:[id number] 27Amt:30mg/mlRoute:IMSite:left hip Given By: GEORGE Farah Radiology - Hip - LeftBy: Julia MCKENZIE, On: 26-Oct-2011 Intent Noris Hurtado DRAIN SKIN ABSCESS, SIMPLE/SINGLE On: 07-Feb-2009 Intent ([id number])By: Noris Dumont CNP MRI - Lumbar SpineBy: Katherine HUERTA, On: 03-Jan-2009 Intent Angela Del Rio DO TDAP VACCINE >7 IM ([id number])By: Katherine On: 22-Oct-2008 Intent Angela HUERTA DO, Kathleen Comments: Lot #[id number]-right deltoidDose0.5mlgiven by Jose A Amos LPN Radiology - Hip - LeftBy: Katherine DO, On: 22-Oct-2008 Intent Angela Del Rio DO MRI - Lumbar SpineBy: Katherine DO, On: 16-May-2008 Intent Angela Del Rio DO Cartoid DopplerBy: Angela Murphy DO On: 16-May-2008 Intent Angela Murphy DO Bio Z ([id number])By: Angela Murphy DO On: 16-May-2008 Intent Angela Murphy DO Comments: stable EKG ([id number])By: Angela Murphy DO On: 16-May-2008 Intent Angela Murphy DO Comments: sinus tach no acute CLARISSA (Ankle Brachial Index) ([id number])By: On: 23-Nov-2007 Intent Cande Youssef Cartoid DopplerBy: Angela Murphy DO On: 14-Nov-2007 Intent Angela Murphy DO CLARISSA (Ankle Brachial Index) ([id number])By: On: 14-Nov-2007 Intent Angela Murphy DO, DO, Kathleen Comments: set up Bio Z ([id number])By: Angela Murphy DO On: 14-Nov-2007 Intent Angela Murphy DO Comments: normal svr and co Bio Z ([id number])By: Noris Dumont CNP On: 07-Apr-2007 Intent Comments: normal svr and co EKG ([id number])By: Noris Dumont CNP On: 07-Apr-2007 Intent Comments: nsr no acute ischemic changes Planned Medications INJECTION, KETOROLAC TROMETHAMINE, PER 15 MG Ordered: 26-Oct-2011 Pending Noris Dumont CNP INJECTION, KETOROLAC TROMETHAMINE, PER 15 MG Ordered: 30-Oct-2011 Pending Noris Dumont CNP Instructions Name Dates Details Non-smoker : How to access health information online Indication: Non-smoker Non-smoker : How to access health information online - Detail Indication: Non-smoker Non-smoker : Patient Instructions Indication: Non-smoker Lumbar stenosis with neurogenic claudication : Patient Instructions Indication: Lumbar stenosis with neurogenic claudication Non-smoker : How to access health information online Indication: Non-smoker Non-smoker : How to access health information online - Detail Indication: Non-smoker Non-smoker : How to access health information online Indication: Non-smoker Non-smoker : How to access health information online - Detail Indication: Non-smoker Non-smoker : Patient Instructions Indication: Non-smoker Coronary artery disease : cardiovascular counseling Indication: Coronary artery disease Non-smoker : How to access health information online Indication: Non-smoker Non-smoker : How to access health information online - Detail Indication: Non-smoker Non-smoker : Patient Instructions Indication: Non-smoker BMI 25.0-25.9,adult : How to access health information online Indication: BMI 25.0-25.9,adult BMI 25.0-25.9,adult : How to access health information online - Detail Indication: BMI 25.0-25.9,adult BMI 25.0-25.9,adult : Patient Instructions Indication: BMI 25.0-25.9,adult Pre-operative exam (Renamed from Encounter for pre-operative examination) : How to access health information online Indication: Pre-operative exam (Renamed from Encounter for pre-operative examination) Pre-operative exam (Renamed from Encounter for pre-operative examination) : How to access health information online - Detail Indication: Pre-operative exam (Renamed from Encounter for pre-operative examination) Pre-operative exam (Renamed from Encounter for pre-operative examination) : Patient Instructions Indication: Pre-operative exam (Renamed from Encounter for pre-operative examination) Non-smoker : How to access health information online Indication: Non-smoker Non-smoker : How to access health information online - Detail Indication: Non-smoker Non-smoker : Patient Instructions Indication: Non-smoker Encounter for Medicare annual wellness exam : Patient Instructions Indication: Encounter for Medicare annual wellness exam Heart disease, hypertensive, malignant, without heart failure : How to access health information online Indication: Heart disease, hypertensive, malignant, 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, hypertensive, malignant, without heart failure : How to access health information online - Detail Indication: Heart disease, hypertensive, malignant, 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, hypertensive, malignant, without heart failure : Patient Instructions Indication: Heart disease, hypertensive, malignant, without heart failure Dysuria : How to access health information online Indication: Dysuria Dysuria : How to access health information online - Detail Indication: Dysuria Dysuria : Patient Instructions Indication: Dysuria CLAUDICATION : How to access health information online Indication: CLAUDICATION CLAUDICATION : How to access health information online - Detail Indication: CLAUDICATION CLAUDICATION : Patient Instructions Indication: CLAUDICATION Sebaceous cyst : How to access health information online Indication: Sebaceous cyst Sebaceous cyst : How to access health information online - Detail Indication: Sebaceous cyst Sebaceous cyst : Patient Instructions Indication: Sebaceous cyst Encounters Review On: 26-May-2018 9:13 Encounter Reason: Back PainEncounter Diagnosis: BMI 30.0-30.9,adult, Non-smoker, Lumbar stenosis with neurogenic claudication, Coronary artery disease, Peripheral vascular disease (443.9), Exhaustion [facility] Office Visit On: 01-Sep-2017 10:58 Encounter Reason: Leg Pain - This condition occurred without any known injury. The patient sustained an injury to the left hip, left thigh and left knee. This occurred month(s) ago. Symptoms include leg pain, decreased r End: 01-Sep-2017 11:37 tqeuila of motion and difficulty bearing weight, while symptoms do not include swelling.Encounter Diagnosis: BMI 26.0-26.9,adult, Non-smoker, Lumbar stenosis with neurogenic claudication, Hip pain, left, Sacroiliac pain [facility] Office Visit On: 13-May-2017 12:15 Encounter Reason: Follow up hospital - Reason for ER visit: note: (back sx). The patient feels well with minor complaints and has decreased energy level. Patient has been compliant with instructions. Current medication u End: 13-May-2017 13:17 se: no side effects and compliant with dosing regimen. Nutrition: balanced diet.Encounter Diagnosis: BMI 25.0-25.9,adult, Non-smoker, Lumbar stenosis with neurogenic claudication, Pain of left lower extremity [facility] Office Visit On: 25-Mar-2017 8:55 Encounter Reason: Annual Medicare Exam - The patient had reviewed and updated the family history, medication/s, past medical history and social history. Yes the patient did have a mini mental status exam done today. The End: 25-Mar-2017 10:06 activities of daily living the patient needs help with are none. The patient has driven in past 6 months, but the patient has not had fecal incontinence, had urinary incontinence, missed or ran out of m edications to soon, fallen in the past 6 months, gotten lost, has a medalert necklace or bracelet, put area rugs through house or put handrails in bathroom. The patient has completed the following preve ntative measures: colonoscopy (2 yrs). The patient does have durable power of patent prosecution attorney and living will. The patient has noticed having problems with memory than others. Other providers contributing to the patient's care are transition teacher. Encounter Diagnosis: BMI 26.0-26.9,adult, Non-smoker, Annual Medicare Physical WITH abnormal findings (Renamed from Encounter for general adult medical examination with abnormal findings), Screening for prostate cancer, Encounter for screening for malignant neoplasm of colon (Renamed from Special screening for malignant neoplasms, colon), Coronary artery disease, Memory impairment [facility] Office Visit On: 18-Mar-2017 10:27 Encounter Reason: Pre-Op Visit - The procedure scheduled is a Back sx on 04/13/17. The surgeon for the procedure will be Dr. Marcos.Encounter Diagnosis: Non- smoker, BMI 25.0-25.9,adult, End: 18-Mar-2017 12:47 Pre-operative exam (Renamed from Encounter for pre-operative examination), Coronary artery disease, Hypertension with heart disease, Lumbar stenosis with neurogenic claudication, Need for prophylactic vaccination and inoculation against influenza (Renamed from Need for immunization against influenza) [facility] Office Visit On: 24-Nov-2016 14:20 Encounter Reason: Pre-Op Visit - The procedure scheduled is a revision foraminotomy and foraminotomy lumbar on 12/01/16. The surgeon for the procedure will be Dr. Marcos. Pertinent medical history includes prior anesthesi End: 24-Nov-2016 15:36 a and cardiovascular disease (CAD), while pertinent medical history does not include previous anesthesia reaction, clotting disorder or bleeding disorder. Pertinent family history does not include anest hesia reaction. Pertinent social history includes aspirin use (will be seeing [facility] to make sure this is ok to d/c) and wearing dentures or partial plates, while pertinent social history does not inclu de tobacco use, alcohol use or concerns regarding care after surgery. After surgery the patient plans to recover at home with family.Encounter Diagnosis: Non- smoker, Pre-operative exam (Renamed from Encounter for pre-operative examination), Degenerative lumbar spinal stenosis, Lumbar stenosis with neurogenic claudication, Peripheral vascular disease (443.9), Hypertension with heart disease, Coronary artery disease, Hyperlipidemia, unspecified [facility] Office Visit On: 07-Oct-2016 10:08 Encounter Reason: Leg Pain - This condition occurred without any known injury. The patient sustained an injury to the left hip, left thigh and left knee. This occurred month(s) ago. 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), Lumbar stenosis with neurogenic claudication, Degenerative lumbar spinal stenosis, Pain of left lower extremity [facility] Office Visit On: 20-Mar-2016 7:25 Encounter Diagnosis: Encounter for screening for malignant neoplasm of colon (Renamed from Special screening for malignant neoplasms, colon) End: 20-Mar-2016 7:29 [facility] Phone Encounter On: 07-Feb-2016 10:12 [facility] End: 07-Feb-2016 10:13 Office Visit On: 07-Feb-2016 9:15 Encounter Reason: Annual Medicare Exam - The patient had reviewed and updated the family history, medication/s, past medical history and social history. Yes the patient did have () a mini mental status exam done tod End: 07-Feb-2016 10:09 ay. The activities of daily living the patient needs help with are none. The patient has driven in past 6 months and put area rugs through house, but the patient has not had fecal incontinence, had urin sandra incontinence, missed or ran out of medications to soon, fallen in the past 6 months, gotten lost, has a medalert necklace or bracelet or put handrails in bathroom. The patient has completed the foll owing preventative measures: PSA testing (01/27) and colonoscopy (03/28). The patient does have durable power of patent prosecution attorney and living will. The patient has noticed getting bored. Other providers contribut ing to the patient's care are transition teacher and urologist.Encounter Diagnosis: Encounter for Medicare annual wellness exam, Encounter for screening for malignant neoplasm of colon (Renamed from Special screening for malignant neoplasms, colon), Screening for prostate cancer [facility] Office Visit On: 15-Jan-2016 14:12 Encounter Reason: Follow up for chronic medical issues - The patient feels well with minor complaints, has good energy level and is sleeping well. Patient has been compliant with instructions. Current medication use: no End: 15-Jan-2016 15:49 side effects and compliant with dosing regimen. Patient sleeps 5 hours per night. Nutrition: balanced diet and supplemental vitamins. The medical issues the patient is following up for include All ident ified problems below, cardiac issues and high cholesterol. blood pressure range : and weight :.Encounter Diagnosis: Heart disease, hypertensive, malignant, without heart failure, Peripheral vascular disease (443.9), History of myocardial infarction, Coronary artery disease, Hyperlipidemia, unspecified, History of tobacco abuse, Family history of brain aneurysm, Family history of abdominal aortic aneurysm (V17.49), CLAUDICATION [facility] Office Visit On: 30-Dec-2015 11:35 Encounter Reason: UTI - The urinary symptoms are described as painful urination, frequency, urgency and burning. The symptoms have been occurring for 2 days and have been constant. The urine is described as clear. The s End: 30-Dec-2015 12:26 ymptoms have been associated with low back pain, while the symptoms have not been associated with abdominal pain. There is no medical history of diabetes, kidney stones or recurrent urinary tract infect ions. The patient denies the use of oral contraceptives, antibiotics, hormone replacement therapy or pyridium/uristat.Encounter Diagnosis: Dysuria, Abnormal urine, Acute prostatitis [facility] Office Visit On: 14-Feb-2015 7:32 Encounter Reason: Follow up tests - Date: (02.06.15 and 02.13.15).Encounter Diagnosis: VASCULAR DISEASE, NOS (459.9), CLAUDICATION End: 14-Feb-2015 8:02 [facility] Office Visit On: 28-Jan-2015 9:33 Encounter Reason: Annual Medicare Exam - The patient had reviewed and updated the family history, medication/s, past medical history and social history. Yes the patient did have a mini mental status exam done today. The End: 28-Jan-2015 10:43 activities of daily living the patient needs help with are none. The patient has driven in past 6 months and put area rugs through house, but the patient has not had fecal incontinence, had urinary inco ntinence, missed or ran out of medications to soon, fallen in the past 6 months, gotten lost, has a medalert necklace or bracelet or put handrails in bathroom. The patient has completed the following pr eventative measures: PSA testing (?) and colonoscopy (2004). The patient does have durable power of patent prosecution attorney and living will. The patient has noticed having problems with memory than others. Other provi ders contributing to the patient's care are transition teacher and other:.Encounter Diagnosis: Annual Medicare Physical (V70.0), SCREENING FOR CANCER OF THE PROSTATE (V76.44), Heel pain, CLAUDICATION, VASCULAR DISEASE, NOS (459.9), Peptic Ulcer Disease (536.9), 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 failure (402.90) [facility] Office Visit On: 12-Oct-2014 7:50 Encounter Reason: Lumps - The onset of the lumps has been sudden and has been occurring in a persistent pattern for 6 months. The course has been increasing. The lumps are described as moderate.Encounter Diagnosis: Lesion-Unknown behavior (238.2), End: 12-Oct-2014 8:37 Sebaceous cyst (706.2) [facility] Office Visit On: 23-May-2012 8:47 Encounter Reason: Annual Medicare Exam - The patient had reviewed and updated the family history, medication/s, past medical history and social history. Yes the patient did have a mini mental status exam done today. The End: 23-May-2012 9:24 patient would like education and information on weight loss, smoking cessation, meals and exercise programs. The activities of daily living the patient needs help with are none. The patient has driven i n past 6 months, but the patient has not had fecal incontinence, had urinary incontinence, missed or ran out of medications to soon, fallen in the past 6 months, gotten lost, has a medalert necklace or bracelet, put area rugs through house or put handrails in bathroom. The patient has completed the following preventative measures: PSA testing (done at [facility] gets it 2 times a year) and colonoscopy. The pa tient does have durable power of patent prosecution attorney and living will. The patient has noticed nothing from the geriatic depression scale. Other providers contributing to the patient's care are transition teacher (Dr. Gaines).Encounter Diagnosis: Unspecified Diagnosis, Annual Medicare Physical (V70.0), SCREENING FOR CANCER OF THE PROSTATE (V76.44), Family history of abdominal aortic aneurysm (V17.49) [facility] Office Visit On: 23-Nov-2011 10:12 Encounter Reason: Follow up acute care visit - The patient feels the same and has decreased energy level. Patient has been compliant with instructions. Current medication use: no side effects, compliant with dosing regim End: 23-Nov-2011 10:39 en and considered effective by patient. The medical issues the patient is following up for include All identified problems below and other (back pain/hip pain).Encounter Diagnosis: Pelvis/Thigh/Hip Pain (719.45), LOW BACK PAIN WITH RADICULOPATHY (724.4) [facility] Annotation/Addendum On: 18-Nov-2011 17:47 Encounter Diagnosis: Unspecified Diagnosis End: 18-Nov-2011 17:52 [facility] Office Visit On: 10-Nov-2011 9:51 Encounter Reason: Follow up acute care visit - The patient feels the same. Patient has been compliant with instructions. Current medication use: no side effects, compliant with dosing regimen and not considered effective End: 10-Nov-2011 10:30 by patient. Patient sleeps 7 hours per night. The medical issues the patient is following up for include All identified problems below and other (low back pain/hip pain).Encounter Diagnosis: LOW BACK PAIN WITH RADICULOPATHY (724.4) [facility] Office Visit On: 30-Oct-2011 9:27 Encounter Reason: Follow up acute care visit - The patient does not feel well and worsening. Patient has been compliant with instructions. Current medication use: no side effects, compliant with dosing regimen and not co End: 30-Oct-2011 12:53 nsidered effective by patient. Patient sleeps 4 hours per night. Impact of disease: emotional impact-mild. Nutrition: balanced diet and supplemental vitamins. The medical issues the patient is following up for include other (left leg pain). Encounter Diagnosis: LOW BACK PAIN WITH RADICULOPATHY (724.4) [facility] Office Visit On: 26-Oct-2011 13:26 Encounter Reason: Hip Problem - Symptoms include hip problem (L ). The symptoms are located in the left lateral hip. The patient describes the hip problem as hip pain, hip stiffness, decreased range of motion, difficulty End: 26-Oct-2011 14:21 flexing hip, difficulty rotating hip, difficulty bearing weight and difficulty ambulating. Onset was sudden 1 week(s) ago. The symptoms occur constantly. The patient describes symptoms as severe and wo rsening. Symptoms are exacerbated by movement, flexing hip, weight bearing, walking and sitting. Symptoms are relieved by nonsteroidal anti-inflammatory drugs (constant).Encounter Diagnosis: LOW BACK PAIN WITH RADICULOPATHY (724.4) [facility] Office Visit On: 16-Sep-2009 16:28 Encounter Reason: Follow up ER - Reason for hospitalization note: (uti went to er sat). Patient has been compliant with instructions. Current medication use: no side effects and compliant with dosing regimen. The patient End: 16-Sep-2009 17:18 feels well with minor complaints ,has good energy level and is sleeping well. Encounter Diagnosis: PROSTATITIS NOS (601.9) [facility] Office Visit On: 07-Feb-2009 8:24 Encounter Diagnosis: Sebaceous cyst (706.2), Foliculitis (704.8) End: 07-Feb-2009 13:00 [facility] Office Visit On: 03-Jan-2009 11:12 Encounter Reason: Back pain - The onset of the pain has been gradual and has been occurring in a persistent pattern for 2 years. The course has been constant. The pain is characterized as a dull ache and shooting. The pa End: 03-Jan-2009 11:40 in is described as being located in the lower back. The pain radiates to the lateral aspect of left leg (leg feels tired). There are no precipitating factors. The symptoms are aggravated by exertion ,re st ,prolonged standing and prolonged sitting. The symptoms have no relieving factors. The pain has been associated with back stiffness. Encounter Diagnosis: LOW BACK PAIN WITH RADICULOPATHY (724.4) [facility] Office Visit On: 22-Oct-2008 12:56 Encounter Reason: Follow up for chronic medical issues - The patient feels well with minor complaints ,has decreased energy level and is sleeping poorly. Patient has been compliant with instructions. Current medication u End: 22-Oct-2008 14:07 se: no side effects and compliant with dosing regimen. Patient sleeps 2 hours per night. Nutrition: balanced diet and supplemental vitamins. The medical issues the patient is following up for include Al l identified problems below ,high blood pressure and high cholesterol. blood pressure range : and weight :. Encounter Diagnosis: 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 failure (402.90), Coronary Artery Disease (414.00), Hyperlipidemia, Unspecified (272.4), Peripheral vascular disease (443.9), Pelvis/Thigh/Hip Pain (719.45), Carotid Bruits (785.9) [facility] Office Visit On: 04-Jun-2008 11:39 Encounter Reason: Follow up tests - Diagnostic tests include MRI and other (CTA of neck). Date: (05-29-08). 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 Patient has been compliant with instructions. Current medication u End: 16-May-2008 15:22 se: no side effects and compliant with dosing regimen. Patient sleeps 6 hours per night. Nutrition: balanced diet and supplemental vitamins. The medical issues the patient is following up for include Al l identified problems below ,high blood pressure and other (CAD). blood pressure range :. Encounter Diagnosis: 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 failure (402.90), Hyperlipidemia, Unspecified (272.4), Carotid Bruits (785.9), LOW BACK PAIN WITH RADICULOPATHY (724.4), Coronary Artery Disease (414.00), MYOCARDIAL INFARCTION, NOS (410.90), SCREENING FOR CANCER OF THE PROSTATE (V76.44) [facility] Office Visit On: 23-Nov-2007 14:18 Encounter Diagnosis: CLAUDICATION End: 23-Nov-2007 15:50 [facility] Office Visit On: 14-Nov-2007 12:45 Encounter Reason: Follow up for chronic medical issues - The patient feels well with minor complaints and is sleeping poorly. Patient has been compliant with instructions. Current medication use: no side effects and comp End: 14-Nov-2007 14:55 liant with dosing regimen. Patient sleeps 2 hours per night. Impact of disease: no overall impact. Nutrition: balanced diet and supplemental vitamins. The medical issues the patient is following up for include All identified problems below ,cardiac issues and peripheral vascular disease. blood pressure range : (126/80). Encounter Diagnosis: 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 failure (402.90), Hyperlipidemia, Unspecified (272.4), CLAUDICATION, Peripheral vascular disease (443.9), Fatigue (780.79), Coronary Artery Disease (414.00), SLEEP DISORDER, NOS (307.40), Carotid Bruits (785.9) [facility] Office Visit On: 16-May-2007 12:54 Encounter Reason: Follow up for chronic medical issues - The patient feels well with no complaints. Patient has been compliant with instructions. Current medication use: no side effects. Patient sleeps 4 hours per night. End: 16-May-2007 13:24 Nutrition: balanced diet. The medical issues the patient is following up for include All identified problems below ,gastric reflux ,high blood pressure ,high cholesterol and peripheral vascular disease. Encounter Diagnosis: 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 failure (402.90), Hyperlipidemia, Unspecified (272.4), Coronary Artery Disease (414.00), MYOCARDIAL INFARCTION, NOS (410.90), Peripheral vascular disease (443.9), ANEURYSM, NOS (442.9) [facility] Nurse Visit On: 28-Apr-2007 13:15 Encounter Diagnosis: Hematuria (599.7) End: 28-Apr-2007 13:49 [facility] Office Visit On: 07-Apr-2007 13:05 Encounter Reason: Follow up for chronic medical issues - The patient feels well with no complaints ,has good energy level and is sleeping poorly. Patient has been compliant with instructions. Current medication use: no s End: 07-Apr-2007 17:37 joel effects and compliant with dosing regimen. Patient sleeps 6 hours per night. Nutrition: balanced diet and supplemental vitamins. The medical issues the patient is following up for include All identi fied problems below ,gastric reflux and high cholesterol. blood pressure range :. Encounter Diagnosis: Coronary Artery Disease (414.00), Peripheral vascular disease (443.9), Hyperlipidemia, Unspecified (272.4), 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 failure (402.90) [facility] Historical Summary On: 06-Apr-2007 7:00 [facility] End: 06-Apr-2007 7:12 Office Visit On: 14-Oct-2006 8:38 Encounter Reason: Cough - The onset of the cough has been gradual and 1 weeks. The cough is characterized as productive of mucoid sputum. The amount of sputum produced is scanty. The cough occurs all the time. The sympto End: 14-Oct-2006 9:11 ms have been associated with sore throat. the color of the sputum is clear. Note for Cough: Has been using mucinex. Feels well otherwise.Encounter Diagnosis: Cough (786.2) [facility] Payers MedicareAARP/Fredrick rosa guarantor
--- OUTSIDE RECORDS SUMMARY | 2018-09-01 11:27 | XMS RPT_ITS ---
:1945 Author Organization OHIP Care Team Providers Name Role Phone Angela Martinez Attending Unavailable Michelle Angela Primary Care Unavailable MichelleArelisAngela Attending Unavailable Michelle, Angela Referring Unavailable Michelle, Angela Primary Care Unavailable Michael Matta Attending Unavailable MichelleAngela Referring Unavailable Anthony Quigley Attending Unavailable Anthony Quigley Referring Unavailable Michelle, Angela Primary Care Unavailable Mau Palencia Attending Unavailable MichelleAngela Referring Unavailable Antolin Marcos Attending Unavailable Michelle, Angela Referring Unavailable Michelle, Angela Primary Care Unavailable SUNG BAUGH Referring Unavailable SUNG BAUGH Referring Unavailable Angela Martinez DO Attending Unavailable Michelle Angela HUERTA Referring Unavailable Michelle Angela HUERTA Consulting Unavailable SUNG BAUGH Attending Unavailable NAGELA MARTINEZ Referring Unavailable SUNG BAUGH Attending Unavailable ANGELA MARTINEZ Referring Unavailable SUNG BAUGH Referring Unavailable SUNG BAUGH Attending Unavailable MICHELLE, ANGELA MOLINA Referring Unavailable SUNG BAUGH Attending Unavailable MICHELLE, KATKRISTEN Referring Unavailable MICHELLE, KATHLEE Primary Care Unavailable BAUGHSUNG Attending Unavailable MICHELLE, KATHLEE Referring Unavailable MICHELLE, KATHLEE Primary Care Unavailable BAUGHSUNG J Attending Unavailable MICHELLE, KATHLEE Referring Unavailable MICHELLE, KATHLEE Primary Care Unavailable PROBLEMS PROBLEMS DATE TYPE CONDITION / CODE ATTENDING STATUS SOURCE 03/25/2018 Active Unknown / SUNG BAUGH Active [place] UNK(Unknown) [facility] Other [place] Repository 02/25/2018 Active Encounter for NA Active [place] screening for other Clinic Main disorder / [place] Z13.89(ICD-10) Repository 02/25/2018 Active Other specified SUNG BAUGH Active [place] symptoms and signs [facility] Other involving the [facility] circulatory and Repository respiratory systems / R09.89(ICD-10) 04/24/2016 Active Peripheral vascular NA Active [place] disease, unspecified Clinic Main / I73.9(ICD-10) [facility] Repository 04/24/2016 Admitting Unknown / SUNG BAUGH Active [facility] UNK(Unknown) [facility] System Repository 12/27/2017 Unknown E78.5 - Anthony Quigley Active [facility] Hyperlipidemia, Community unspecified / Hospital E78.5(ICD-10) Repository 12/27/2017 Unknown I25.111 - Anthony Quigley Active [place] Atherosclerotic Community heart disease of Hospital [place] coronary Repository artery with angina pectoris with documented spasm / I25.111(ICD-10) 09/01/2017 Unknown M25.552 - Pain in Michelle, Active [facility] left hip / Angela Community M25.552(ICD-10) Hospital Repository 09/01/2017 Unknown M53.3 - Michelle, Active [place] Sacrococcygeal Angela Community disorders, not Hospital elsewhere classified Repository / M53.3(ICD-10) 09/01/2017 Unknown M48.062 - Spinal Michelle, 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, lumbar Angela Community region with Hospital neurogenic Repository claudication / M48.062(ICD-10) 08/06/2017 Admitting Abnormal [employer] Diagnosis electromyogram [EMG] [facility] / R94.131(ICD-10) Repository 08/06/2017 Admitting Abnormal results of [facility] Diagnosis function studies of [facility] prph nervous sys / Repository R94.138(ICD-10) PROCEDURES PROCEDURES No Procedure Records FoundRESULTS RESULTS STRESS REPORT Observed: 05/31/2018 Status: F Source: [place] 10:32 AM [facility] REPOSITORY [facility] Cardiovascular Services [address] [place] [address] MR#: [id number] Acct: [id number] Name: MERRICK BRYAN Rep #: [id number] : 1945 72 From: Michael Matta MD Primary Care: Angela Martinez DO Status: REG CLI Ordering Dr: Ari: Arnaldo Xie Stress Test Report Pharmacologic myocardial perfusion stress test. 72-year-old man with a history of coronary artery disease status post angioplasty and stenting 15 years ago. Medications: Metoprolol rosuvastatin fosinopril amlodipine baby aspirin. Stress protocol: Resting EKG demonstrates normal sinus rhythm with a rate of 72 bpm normal intervals are noted resting blood pressure is 154/84 mmHg. 0.4 mg of regadenoson was infused per usual protocol followed by rapid intravenous saline flush injection continuous EKG monitoring was performed. The maximum heart rate attained was 102 bpm which was 68% of maximum predicted heart rate the maximum workload was 1 metabolic equivalent. There were no ST or T wave changes noted to suggest abnormal flow reserve. Resting blood pressure was 154/84 final blood pressure was 150/80 mmHg. Myocardial perfusion protocol. 12.0 mCi of technetium 99m sestamibi was injected at rest. 0.4 mg of regadenoson was infused per usual protocol. At peak infusion 34.6 mCi of technetium 99m sestamibi was injected stress images were obtained stress and rest images were reconstructed and compared in the short axis vertical long and horizontal long axis. Gated images were also obtained Perfusion SPECT analysis: Review of the stress images demonstrate normal uptake of tracer noted in all areas of the myocardium. The resting images similarly demonstrate normal uptake of tracer noted in all areas of the myocardium. No areas of reversibility are noted suggest ischemia no previous infarct is noted. Gated SPECT analysis: The gated ejection fraction is noted to be 70%. Conclusion: Normal pharmacologic myocardial perfusion stress test. Preserved ejection fraction. 05/31/18 1032 <Electronically signed by Michael Matta MD> Date Michael Matta MD CC: Angela Martinez DO Date Dictated: 05/31/181028 Date Transcribed: 05/31/181028 Order Packer Or Packager: CO Signed PROGRESS Observed: 03/25/2018 Status: COMPLETED Source: [place] 12:15 PM CLINIC OTHER CAMPUS REPOSITORY O ID: [id number] Author: Sung Baugh Service: (none) Author Type: Physician Type: Progress Notes Filed: 03/25/2018 12:18 PM Note Text: Patient is seen back to discuss findings on his CT angiogram. Interestingly his CT angiogram really fails to show any significant blockages in his femoral-femoral bypass or that would explain his claudication down the leg. I do think his claudication in the buttock is explained by the fact that he has occlusion at his common iliac on this side and he is filling his hip and buttock muscles with collaterals off of the common femoral on the left. With that being the case I don't think that were going to get rid of that claudication simply. At this point I really do not see anything that I could intervene on he does have palpable pulses in the feet and is well and I really feel intervening at this point in time is probably not indicated. He was placed on cilostazol and he seems to be having issues with that he is having more bruising with that as well as some leg swelling. He also has not noticed any change in his claudication symptoms and with that being the case I would be in favor of probably stopping the cilostazol as it does not seem to be having much benefit and may be having side effects. I tell the patient that I will see him back in October to see how his symptomatology has progressed and I will follow-up with him at that time. I tell him I really don't have any good answers for what we can do regarding his buttock claudication as we really can't revascularize that area well given the level of his occlusion.I spent 15 minutes in the visit, with more than 50% of the total [id number] time of the visit in counseling / coordination of care. CE Observed: 03/25/2018 Status: COMPLETED Source: [place] 11:45 AM [facility] OTHER [place] REPOSITORY Office Visit (AGMIL) MERRICK BRYAN ([id number]) 1945 M Date Time Provider Department 03/25/18 11:45 AM SUNG BAUGH During your visit today, we recorded the following information about you: Pulse Respiration Blood pressure Weight 78/minute 16/minute 136/70 79.4 kg Height 1.778 m Sung Baugh MD 03/25/2018 12:18 PM Signed Patient is seen back to discuss findings on his CT angiogram. Interestingly his CT angiogram really fails to show any significant blockages in his femoral-femoral bypass or that would explain his claudication down the leg. I do think his claudication in the buttock is explained by the fact that he has occlusion at his common iliac on this side and he is filling his hip and buttock muscles with collaterals off of the common femoral on the left. With that being the case I don't think that were going to get rid of that claudication simply. At this point I really do not see anything that I could intervene on he does have palpable pulses in the feet and is well and I really feel intervening at this point in time is probably not indicated. He was placed on cilostazol and he seems to be having issues with that he is having more bruising with that as well as some leg swelling. He also has not noticed any change in his claudication symptoms and with that being the case I would be in favor of probably stopping the cilostazol as it does not seem to be having much benefit and may be having side effects. I tell the patient that I will see him back in October to see how his symptomatology has progressed and I will follow-up with him at that time. I tell him I really don't have any good answers for what we can do regarding his buttock claudication as we really can't revascularize that area well given the level of his occlusion.I spent 15 minutes in the visit, with more than 50% of the total [id number] time of the visit in counseling / coordination of care. Referring Provider: ANGELA MARTINEZ [[id number]] Allergies As of Date: 03/25/2018 (No Known Allergies) Date Reviewed: 03/25/2018 Reviewed by: Sung Baugh - Fully Assessed Reason for Visit: Peripheral Vascular Disease (PVD) [3545] Cmt: Merrick is here for 1 month follow up. CTA abd/pelvis with runoff done 03/07/18 Primary Visit Diagnosis:PVD (peripheral vascular disease) (HCC) [I73.9] Other Visit Diagnosis:Claudication (HCC) [I73.9] Prescriptions as of 03/25/2018 Sig: CILOSTAZOL 100 MG TABLET Take 100 mg by mouth twice da* ASPIRIN 81 MG TABLET,DELAYED * Take 81 mg by mouth once ronald* GABAPENTIN 300 MG CAPSULE ROSUVASTATIN 10 MG TABLET Take 10 mg by mouth once ronald* METOPROLOL TARTRATE 25 MG TAB* Take 1 tablet by mouth once d* AMLODIPINE 5 MG TABLET Take 1 tablet by mouth twice * * FOSINOPRIL 20 MG TABLET Take one(1) tablet daily. * COLESTIPOL 1 GRAM TABLET * DAILY VITAMIN TABLET Take one(1) tablet daily. * ASPIRIN 325 MG TABLET Take one (1) tablet daily . ATORVASTATIN 40 MG TABLET Take 1 tablet by mouth once d* Patient not taking: Reported on 01/28/2018 Problem List As Of Date 03/25/2018 Noted Resolved BENIGN AMANDA GI TRACT NEC/NOS [D13.9] INVALID FOR* DIVERTICULOSIS OF COLON W/O BLEED [K57.30] INVALID FOR* INT HEMORRHOID W/O COMPL [K64.8] INVALID FOR* Cellulitis and abscess of unspecified site [L03*INVALID FOR* ALTHEA (obstructive sleep apnea) [G47.33] INVALID FOR* HTN (hypertension) [I10] INVALID FOR* PVD (peripheral vascular disease) (HCC) [I73.9] Carotid stenosis [I65.29] Disposition: Return in about 7 months (around 10/23/2018) for PVD. Follow-up and Disposition History Recorded Letter Text Encounter Status:Closed by SUNG BAUGH MD on 03/25/18 CT 3D POST PROCESSING Observed: 03/07/2018 Status: F Source: [place] 1:04 PM CLINIC OTHER CAMPUS REPOSITORY * * *Final Report* * * DATE OF EXAM: Mar 07 2018 1:04PM [facility] 0563 - CT 3D POST PROCESSING / PROCEDURE REASON: R09.89-Other specified symptoms and signs involving the circulatory and respirat * * * * Physician Interpretation * * * * CT ANGIOGRAM OF THE ABDOMEN, PELVIS, AND BILATERAL LOWER EXTREMITIES HISTORY: 72-YEAR-OLD MALE STATUS POST CROSS FEMORAL BYPASS GRAFT WITH COMPLAINT OF LEFT HIP AND BUTTOCK CLAUDICATION. TECHNIQUE: High-resolution contrast-enhanced helical CT of the abdomen, pelvis and both lower extremities was performed, timed to the arterial phase. 3-D processing was performed by the physician on an independent work station, with MIP and volume-rendering techniques. Total of 100 ml of Omnipaque 350 was injected IV during the examination. The study was performed without oral contrast. The patient tolerated the injection without complications. Dose-Length Product (DLP): 491 mGy*cm. CT Dose Reduction Employed: Automated exposure control (AEC) RESULT: COMPARISON: No prior studies are available for comparison. ABDOMEN: Images of the aorta demonstrate diffuse atherosclerotic change without significant focal stenosis or aneurysm. Celiac artery demonstrates no significant focal stenosis. Superior mesenteric artery demonstrates < 30 % narrowing. Inferior mesenteric artery originates from mild atherosclerotic plaque but demonstrates no significant focal stenosis. There is a single right renal artery. Right renal artery demonstrates no significant focal stenosis. There is a single renal vein which is patent. There is a single left renal artery. Left renal artery demonstrates no significant focal stenosis. There is a single renal vein which is patent. RIGHT LEG: Right common iliac artery demonstrates focal moderate (40- 60 %) stenosis. Right external iliac artery demonstrates diffuse atherosclerotic change without significant focal stenosis. Right internal iliac artery demonstrates diffuse atherosclerotic change without significant focal stenosis. Right common femoral artery demonstrates diffuse atherosclerotic change without significant focal stenosis. There is a patent cross femoral bypass graft to the left common femoral artery. Caudal to this, the Right profunda femoris artery is patent with no significant stenosis. Right superficial femoral artery demonstrates diffuse atherosclerotic change without significant focal stenosis. Right popliteal artery demonstrates diffuse atherosclerotic change without significant focal stenosis. Right anterior tibial artery is patent with no significant stenosis. Dorsalis pedis is seen and normal in appearance. Right tibioperoneal trunk is with no significant stenosis. Right posterior tibial artery is patent with no significant stenosis. Posterior tibial artery is normal in caliber and seen to the foot. Right peroneal artery is patent with no significant stenosis. LEFT LEG: Left common iliac artery is occluded at its origin. Left external iliac artery is occluded. The left lower extremity supplied via the patent cross femoral bypass graft from the right side. Left internal iliac artery is reconstituted distally via cross pelvis collaterals.. Left common femoral artery is is patent with a focal atherosclerotic calcification but without significant stenosis. Left profunda femoris artery is patent with no significant stenosis. Left superficial femoral artery is patent with no significant stenosis. Left popliteal artery is patent with no significant stenosis. Left anterior tibial artery is patent with no significant stenosis. Dorsalis pedis is seen and normal in appearance. Left tibioperoneal trunk is patent with no significant stenosis. Left posterior tibial artery is patent with no significant stenosis. Posterior tibial artery is normal in caliber and seen to the foot. Left peroneal artery is patent with no significant stenosis. NONVASCULAR FINDINGS: Images through the lung bases demonstrate changes consistent with emphysema. No masses or pleural effusions are identified. Liver, gallbladder, pancreas, spleen, bilateral adrenal glands, right kidney,are unremarkable. There is a 1.7 cm rounded hypodensity at the ventral surface of the lower pole of the left kidney with a intermediate Hounsfield unit density (26 HU), which may represent a proteinaceous cyst. Comparison with prior studies if available (no prior studies are available in our PACS system) or clinical follow-up with ultrasound is recommended. There are no enlarged lymph nodes. There is no significant free fluid. Vacuum disc phenomenon seen at the L5-S1 level.. IMPRESSION: OCCLUDED LEFT ILIAC ARTERIAL SYSTEM WITH RECONSTITUTION OF THE LEFT LOWER EXTREMITY VIA A PATENT CROSS FEMORAL BYPASS GRAFT. THERE IS THREE-VESSEL CALF RUNOFF BILATERALLY. 1.7 CM ROUNDED HYPODENSITY AT THE VENTRAL SURFACE OF THE LOWER POLE OF THE LEFT KIDNEY WITH AN INTERMEDIATE HOUNSFIELD UNIT DENSITY, WHICH MAY REPRESENT A PROTEINACEOUS CYST. COMPARISON WITH PRIOR STUDIES IF AVAILABLE OR FURTHER EVALUATION WITH ULTRASOUND IS RECOMMENDED. Order Packer Or Packager: SILVA Transcribe Date/Time: Mar 07 2018 2:18P Dictated by : AMADO RANKIN MD This examination was interpreted and the report reviewed and electronically signed by: AMADO RANKIN MD on Mar 07 2018 2:59PM EST [id number] CTA ABD/PEL/LOWER EXT W Observed: 03/07/2018 Status: F Source: [place] IVCON 1:03 PM CLINIC OTHER CAMPUS REPOSITORY * * *Final Report* * * DATE OF EXAM: Mar 07 2018 1:03PM [facility] 0122 - CTA ABD/PEL/LOWER EXT W IVCON / PROCEDURE REASON: R09.89-Other specified symptoms and signs involving the circulatory and respirat * * * * Physician Interpretation * * * * CT ANGIOGRAM OF THE ABDOMEN, PELVIS, AND BILATERAL LOWER EXTREMITIES HISTORY: 72-YEAR-OLD MALE STATUS POST CROSS FEMORAL BYPASS GRAFT WITH COMPLAINT OF LEFT HIP AND BUTTOCK CLAUDICATION. TECHNIQUE: High-resolution contrast-enhanced helical CT of the abdomen, pelvis and both lower extremities was performed, timed to the arterial phase. 3-D processing was performed by the physician on an independent work station, with MIP and volume-rendering techniques. Total of 100 ml of Omnipaque 350 was injected IV during the examination. The study was performed without oral contrast. The patient tolerated the injection without complications. Dose-Length Product (DLP): 491 mGy*cm. CT Dose Reduction Employed: Automated exposure control (AEC) RESULT: COMPARISON: No prior studies are available for comparison. ABDOMEN: Images of the aorta demonstrate diffuse atherosclerotic change without significant focal stenosis or aneurysm. Celiac artery demonstrates no significant focal stenosis. Superior mesenteric artery demonstrates < 30 % narrowing. Inferior mesenteric artery originates from mild atherosclerotic plaque but demonstrates no significant focal stenosis. There is a single right renal artery. Right renal artery demonstrates no significant focal stenosis. There is a single renal vein which is patent. There is a single left renal artery. Left renal artery demonstrates no significant focal stenosis. There is a single renal vein which is patent. RIGHT LEG: Right common iliac artery demonstrates focal moderate (40- 60 %) stenosis. Right external iliac artery demonstrates diffuse atherosclerotic change without significant focal stenosis. Right internal iliac artery demonstrates diffuse atherosclerotic change without significant focal stenosis. Right common femoral artery demonstrates diffuse atherosclerotic change without significant focal stenosis. There is a patent cross femoral bypass graft to the left common femoral artery. Caudal to this, the Right profunda femoris artery is patent with no significant stenosis. Right superficial femoral artery demonstrates diffuse atherosclerotic change without significant focal stenosis. Right popliteal artery demonstrates diffuse atherosclerotic change without significant focal stenosis. Right anterior tibial artery is patent with no significant stenosis. Dorsalis pedis is seen and normal in appearance. Right tibioperoneal trunk is with no significant stenosis. Right posterior tibial artery is patent with no significant stenosis. Posterior tibial artery is normal in caliber and seen to the foot. Right peroneal artery is patent with no significant stenosis. LEFT LEG: Left common iliac artery is occluded at its origin. Left external iliac artery is occluded. The left lower extremity supplied via the patent cross femoral bypass graft from the right side. Left internal iliac artery is reconstituted distally via cross pelvis collaterals.. Left common femoral artery is is patent with a focal atherosclerotic calcification but without significant stenosis. Left profunda femoris artery is patent with no significant stenosis. Left superficial femoral artery is patent with no significant stenosis. Left popliteal artery is patent with no significant stenosis. Left anterior tibial artery is patent with no significant stenosis. Dorsalis pedis is seen and normal in appearance. Left tibioperoneal trunk is patent with no significant stenosis. Left posterior tibial artery is patent with no significant stenosis. Posterior tibial artery is normal in caliber and seen to the foot. Left peroneal artery is patent with no significant stenosis. NONVASCULAR FINDINGS: Images through the lung bases demonstrate changes consistent with emphysema. No masses or pleural effusions are identified. Liver, gallbladder, pancreas, spleen, bilateral adrenal glands, right kidney,are unremarkable. There is a 1.7 cm rounded hypodensity at the ventral surface of the lower pole of the left kidney with a intermediate Hounsfield unit density (26 HU), which may represent a proteinaceous cyst. Comparison with prior studies if available (no prior studies are available in our PACS system) or clinical follow-up with ultrasound is recommended. There are no enlarged lymph nodes. There is no significant free fluid. Vacuum disc phenomenon seen at the L5-S1 level.. IMPRESSION: OCCLUDED LEFT ILIAC ARTERIAL SYSTEM WITH RECONSTITUTION OF THE LEFT LOWER EXTREMITY VIA A PATENT CROSS FEMORAL BYPASS GRAFT. THERE IS THREE-VESSEL CALF RUNOFF BILATERALLY. 1.7 CM ROUNDED HYPODENSITY AT THE VENTRAL SURFACE OF THE LOWER POLE OF THE LEFT KIDNEY WITH AN INTERMEDIATE HOUNSFIELD UNIT DENSITY, WHICH MAY REPRESENT A PROTEINACEOUS CYST. COMPARISON WITH PRIOR STUDIES IF AVAILABLE OR FURTHER EVALUATION WITH ULTRASOUND IS RECOMMENDED. Order Packer Or Packager: SILVA Transcribe Date/Time: Mar 07 2018 2:18P Dictated by : AMADO RANKIN MD This examination was interpreted and the report reviewed and electronically signed by: AMADO RANKIN MD on Mar 07 2018 2:59PM EST [id number] CREATININE Collected: 02/25/2018 Status: F Source: [place] 10:23 AM [facility] REPOSITORY TYPE CODE TESTS RESULT OUT OF REFERENCE UNITS RANGE LAB CRET 0.73-1.22 mg/dL Creatinine 1.03 LAB GFRAA eGFR- >60 Amer. LAB GFRNAA . eGFR-All Other Races >60 Result Comment: eGFR (Estimated GFR) Units of measure: mL/min/1.73 meters squared eGFR is derived from the reexpressed MDRD Study equation using the following parameters: serum creatinine, age, gender and race. The creatinine assay has been calibrated to be traceable to IDMS. An eGFR <60 mL/min/1.73m2 for >3 months is consistent with chronic kidney disease. Refer to KDOQI guidelines for clinical interpretation. In patients with unstable renal function, e.g. those with acute kidney injury, the eGFR may not accurately reflect actual GFR. Performed By: #### CRET1 #### [facility] [address] [id number] PROGRESS Observed: 02/25/2018 Status: COMPLETED Source: [place] 10:01 AM [facility] OTHER CAMPUS REPOSITORY HNO ID: [id number] Author: Sung Baugh Service: (none) Author Type: Physician Type: Progress Notes Filed: 02/25/2018 10:04 AM Note Text: This patient continues to complain of left leg hip and buttock claudication and at this point states that this really hasn't gotten any better even though he was started on cilostazol for this. He continues to try to walk but states that if he walks from the front of the building to the back of the building he continues to get buttock claudication. This is primarily in the left hip and buttock area. He does have a history of some significant back surgery but are ankle-brachial indices do show that he has a slight decrease to about 0.7 on the left. With this being the case I would potentially think that he could have some issue with his femoral-femoral bypass or he that he does not have much pelvic backflow from the femoral-femoral bypass. For this reason I'm going to go ahead and order a CT angiogram to determine if there is anything further that we could do to try to help with this and to see what the pelvic circulation looks like on the left side. I'm going to go ahead and get the CT angiogram and follow up with the patient in 1 month.I spent 15 minutes in the visit, with more than 50% of the total qdyo-lv-reqy time of the visit in counseling / coordination of care. CE Observed: 02/25/2018 Status: COMPLETED Source: [place] 9:30 AM [facility] OTHER CAMPUS REPOSITORY Office Visit (AGMIL) MERRICK BRYAN ([id number]) 1945 M Date Time Provider Department 02/25/18 9:30 AM SUNG BAUGH During your visit today, we recorded the following information about you: Pulse Respiration Blood pressure Weight 100/minute 18/minute 124/64 79.4 kg Height 1.778 m Sung Baugh MD 02/25/2018 10:04 AM Signed This patient continues to complain of left leg hip and buttock claudication and at this point states that this really hasn't gotten any better even though he was started on cilostazol for this. He continues to try to walk but states that if he walks from the front of the building to the back of the building he continues to get buttock claudication. This is primarily in the left hip and buttock area. He does have a history of some significant back surgery but are ankle-brachial indices do show that he has a slight decrease to about 0.7 on the left. With this being the case I would potentially think that he could have some issue with his femoral-femoral bypass or he that he does not have much pelvic backflow from the femoral-femoral bypass. For this reason I'm going to go ahead and order a CT angiogram to determine if there is anything further that we could do to try to help with this and to see what the pelvic circulation looks like on the left side. I'm going to go ahead and get the CT angiogram and follow up with the patient in 1 month.I spent 15 minutes in the visit, with more than 50% of the total awrs-jg-gpvn time of the visit in counseling / coordination of care. Referring Provider: ANGELA MARTINEZ [[id number]] Allergies As of Date: 02/25/2018 (No Known Allergies) Date Reviewed: 02/25/2018 Reviewed by: Sung Baugh - Fully Assessed Reason for Visit: Peripheral Vascular Disease (PVD) [3545] Cmt: PVR done 02 02 18 Reason For Visit History Recorded Primary Visit Diagnosis:PVD (peripheral vascular disease) (HCC) [I73.9] Other Visit Diagnoses:Claudication (HCC) [I73.9] Screening for nephropathy [Z13.89] Diminished pulses in lower extremity [R09.89] Order(s):CREATININE BLD [SQCRET] Order #: [id number] FUTURE CTA ABD/PEL LOWER EXTREM W IVCON [[id number]] Order #: [id number] FUTURE iv contrast (will be provided with radiology test)CTA ABD/PEL LE - No IV access, insert saline lock prior to the sedation, infusion, injection for imaging exam. Discontinue saline lock post exam. If Pt. has a central line or IVAD, may access for administration according to line specific nursing protocol. Once exam is complete flush line and de-access according to line specific nursing protocol in the CT contrast administration guidelines link.Disp: 1 EachRfl: 0 Prescriptions as of 02/25/2018 Sig: CILOSTAZOL 100 MG TABLET Take 100 mg by mouth twice da* ASPIRIN 81 MG TABLET,DELAYED * Take 81 mg by mouth once ronald* GABAPENTIN 300 MG CAPSULE ROSUVASTATIN 10 MG TABLET Take 10 mg by mouth once ronald* METOPROLOL TARTRATE 25 MG TAB* Take 1 tablet by mouth once d* AMLODIPINE 5 MG TABLET Take 1 tablet by mouth twice * * FOSINOPRIL 20 MG TABLET Take one(1) tablet daily. * COLESTIPOL 1 GRAM TABLET * DAILY VITAMIN TABLET Take one(1) tablet daily. IV CONTRAST (RADIOLOGY PROCED* CTA ABD/PEL LE - No IV access* ATORVASTATIN 40 MG TABLET Take 1 tablet by mouth once d* Patient not taking: Reported on 01/28/2018 * ASPIRIN 325 MG TABLET Take one (1) tablet daily . Problem List As Of Date 02/25/2018 Noted Resolved BENIGN AMANDA GI TRACT NEC/NOS [D13.9] INVALID FOR* DIVERTICULOSIS OF COLON W/O BLEED [K57.30] INVALID FOR* INT HEMORRHOID W/O COMPL [K64.8] INVALID FOR* Cellulitis and abscess of unspecified site [L03*INVALID FOR* ALTHEA (obstructive sleep apnea) [G47.33] INVALID FOR* HTN (hypertension) [I10] INVALID FOR* PVD (peripheral vascular disease) (HCC) [I73.9] Carotid stenosis [I65.29] Prescriptions ordered this encounter Disp Refills Start End IV CONTRAST (RADIOLOGY PROCEDURE) 1 Ea* 0 02/25/2018 02/26/2018 Class: In Office Sig: CTA ABD/PEL LE - No IV access, insert saline lock prior to the sedation, infusion, injection for imaging exam. Discontinue saline lock post exam. If Pt. has a central line or IVAD, may access for administration according to line specific nursing protocol. Once exam is complete flush line and de-access according to line specific nursing protocol in the CT contrast administration guidelines link. Encounter Status:Closed by SUNG BAUGH MD on 02/25/18 PROGRESS Observed: 01/30/2018 Status: COMPLETED Source: [place] 10:59 AM [facility] OTHER CAMPUS REPOSITORY O ID: [id number] Author: Sung Baugh Service: (none) Author Type: Physician Type: Progress Notes Filed: 01/30/2018 11:01 AM Note Text: This patient is seen back today for persistent complaints of claudication in his left leg. At this point in time I really don't have a good explanation for this. He has had significant workup for this including according to the patient and her recent arter[facility] that [facility] for these [facility]. He is status post femoral-femoral bypass that about 20 years old and he has no evidence of any decreased pulses in either lower extremity. He has good palpable pulses with pink warm feet bilaterally. Apparently at the [facility] from what I can gather they saw increased velocities in the femoral-femoral bypass and therefore perform the arteriogram. This actually was something that I would have potentially recommended given the fact that the patient continues to complain of left leg claudication without obvious reason for this. However since this is been performed I do say that we would like to get copies of this and reevaluated. I really don't have anything to explain this other than the fact that the patient has had some back issues as well. He seems to have had extensive back surgery though that should have corrected his left leg pain if that was the etiology. At this point in time I'm not certain why the patient has ongoing claudication symptoms but he does and at this juncture I will probably recommend that we follow-up with him in a month or so we probably should get lower extremity Dopplers at some point to see if there is any drop in pressure with exercise testing. We are going to go ahead and order those and then I will follow-up with the patient after those are performed to see if there is anything that I can find that might explain his current symptomatology.I spent 15 minutes in the visit, with more than 50% of the total givi-nb-ddaj time of the visit in counseling / coordination of care. CE Observed: 01/28/2018 Status: COMPLETED Source: [place] 10:45 AM [facility] OTHER CAMPUS REPOSITORY Office Visit (MARQUEZMIL) MERRICK BRYAN ([id number]) 1945 M Date Time Provider Department 01/28/18 10:45 AM SUNG BAUGH During your visit today, we recorded the following information about you: Pulse Respiration Blood pressure Weight 72/minute 16/minute 132/70 79.4 kg Height 1.778 m Sung Baugh MD 01/30/2018 11:01 AM Signed This patient is seen back today for persistent complaints of claudication in his left leg. At this point in time I really don't have a good explanation for this. He has had significant workup for this including according to the patient and her recent arteriogram that was [facility] for these symptoms. He is status post femoral-femoral bypass that about 20 years old and he has no evidence of any decreased pulses in either lower extremity. He has good palpable pulses with pink warm feet bilaterally. [facility] in the femoral- femoral bypass and therefore perform the arteriogram. This actually was something that I would have potentially recommended given the fact that the patient continues to complain of left leg claudication without obvious reason for this. However since this is been performed I do say that we would like to get copies of this and reevaluated. I really don't have anything to explain this other than the fact that the patient has had some back issues as well. He seems to have had extensive back surgery though that should have corrected his left leg pain if that was the etiology. At this point in time I'm not certain why the patient has ongoing claudication symptoms but he does and at this juncture I will probably recommend that we follow-up with him in a month or so we probably should get lower extremity Dopplers at some point to see if there is any drop in pressure with exercise testing. We are going to go ahead and order those and then I will follow-up with the patient after those are performed to see if there is anything that I can find that might explain his current symptomatology.I spent 15 minutes in the visit, with more than 50% of the total ciop-vq-zhtt time of the visit in counseling / coordination of care. Referring Provider: ANGELA MARTINEZ [[id number]] Allergies As of Date: 01/28/2018 (No Known Allergies) Date Reviewed: 01/28/2018 Reviewed by: Karissa Bernard LPN - Fully Assessed Reason for Visit: Peripheral Vascular Disease (PVD) [3545] Cmt: Merrick is here with increaed Lt leg pain Stenosis [1326] Cmt: carotid stenosis Reason For Visit History Recorded Primary Visit Diagnosis:PVD (peripheral vascular disease) ([facility]) [I73.9] Other Visit Diagnosis:Claudication ([facility]) [I73.9] Order(s):PVR ANK PRESS W/EXC [facility] [[id number]] Order #: [id number] FUTURE Prescriptions as of 01/28/2018 Sig: ASPIRIN 81 MG TABLET,DELAYED * Take 81 mg by mouth once ronald* GABAPENTIN 300 MG CAPSULE ROSUVASTATIN 10 MG TABLET Take 10 mg by mouth once ronald* METOPROLOL TARTRATE 25 MG TAB* Take 1 tablet by mouth once d* AMLODIPINE 5 MG TABLET Take 1 tablet by mouth twice * * FOSINOPRIL 20 MG TABLET Take one(1) tablet daily. * DAILY VITAMIN TABLET Take one(1) tablet daily. ATORVASTATIN 40 MG TABLET Take 1 tablet by mouth once d* Patient not taking: Reported on 01/28/2018 * COLESTIPOL 1 GRAM TABLET * ASPIRIN 325 MG TABLET Take one (1) tablet daily . Problem List As Of Date 01/28/2018 Noted Resolved BENIGN AMANDA GI TRACT NEC/NOS [D13.9] INVALID FOR* DIVERTICULOSIS OF COLON W/O BLEED [K57.30] INVALID FOR* INT HEMORRHOID W/O COMPL [K64.8] INVALID FOR* Cellulitis and abscess of unspecified site [L03*INVALID FOR* ALTHEA (obstructive sleep apnea) [G47.33] INVALID FOR* HTN (hypertension) [I10] INVALID FOR* PVD (peripheral vascular disease) (HCC) [I73.9] Carotid stenosis [I65.29] Encounter Status:Closed by SUNG BAUGH MD on 01/30/18 CARDIOLOGY VISIT Observed: 01/06/2018 Status: F Source: [place] REPORT 3:34 PM [facility] REPOSITORY [facility] [address] [place] [address] OFFICE VISIT Date of Service: 01/06/18 MR#: [id number] Acct: [id number] Name: MERRICK BRYAN Rep #: [id number] : 1945 Provider: Mau Palencia MD Age/Sex: 72/M Location: [facility] Status: Signed HPI HPI Chief Complaint: Routine f/u Details: MERRICK BRYAN, is a 72 M who is returning for followup of his coronary artery disease status post angioplasty and drug-eluting stenting of his diagonal with a 2.5 X12 taxus, at [facility] on 09/21/03, with associated documented coronary [...] which have been managed by both the [facility] as well as Dr. Baugh at [facility]. In 1998 the patient apparently underwent what sounds like an right to left fem-fem bypass, although I do not have those records in front of me. Patient has an appointment with Dr. Baugh on 05/31/2015 to evaluate this with a CT scan. Patient saw Dr. Baugh had a CT scan of his lower extremities, and no plans for any catheterization at this time. From a cardiac standpoint, he denies any exertional chest pain, angina or shortness of breath. He is taking and tolerating his medicines well. he appears to be tolerating his Lipitor well. He exercises regularly mostly by swimming in the summertime. Patient's main complaint today is recurrent lower extremity claudication symptoms. In August 2017 he underwent PVRs at an outside facility, [facility]. He underwent [...] he complains of significant tiredness throughout the day. In our office today's blood pressure is [...] and an LDL of 60 Intake Vital Signs07/26/18 Height 5 ft 10 in 01/06/18 Weight: 174 lb 01/06/18 Body Mass Index (BMI) 25.0 01/06/18 Blood Pressure 100/50 Intake Visit Reasons: 6 M FU Allergies atorvastatin [From Lipitor] Adverse Reaction (Intermediate, Verified 01/06/18 15:14) Myalgias Medications Amlodipine [Norvasc] 5 mg PO BID 04/16/17 [History Confirmed 01/06/18] Colestipol Tablet [Colestid Tablet] 1 gm PO DAILY 04/16/17 [History Confirmed 01/06/18] Fosinopril Sodium 20 mg PO DAILY 04/16/17 [History Confirmed 01/06/18] Gabapentin [Neurontin] 600 mg PO QHS 04/16/17 [History Confirmed 01/06/18] Multivitamin [Daily Multiple Vitamin] DAILY 04/16/17 [History Confirmed 01/06/18] Rosuvastatin Calcium [Crestor] 10 mg PO QHS 04/16/17 [History Confirmed 01/06/18] nitroglycerin 0.4 mg sublingual tablet 0.4 mg SUBLINGUAL Q5- 15M PRN 07/02/17 [History Confirmed 01/06/18] aspirin 81 mg tablet,delayed release 81 mg PO QDAY 01/06/18 [History Confirmed 01/06/18] cilostazol 100 mg tablet 100 mg PO BID #60 tab 01/06/18 [Rx Confirmed 01/06/18] metoprolol tartrate 25 mg tablet 12.5 mg PO BID tab 01/06/18 [History Confirmed 01/06/18] [facility] Medical History Peripheral arterial disease (Chronic) History of non-ST elevation myocardial infarction (NSTEMI) (Chronic) 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) Hypertension (Chronic) Hyperlipidemia (Chronic) Overweight (BMI 25.0-29.9) (Chronic) Chronic back pain (Chronic) Lumbar stenosis (Chronic) Surgical History S/P femoral-femoral bypass surgery (Chronic) History of left heart catheterization (Chronic) Family History Father , of cancer Myocardial infarction, Onset Age: 70 Cancer Mother , age 66 Bleeding in brain due to brain aneurysm Brother Myocardial infarction, Onset Age: 62 CAD (coronary artery disease) Social History Smoking Status: Former smoker how long ago did patient quit smokin ROS Const Const: Negative for fatigue, weakness, body ache, fever(s), headache(s), chills, frequent falls, night sweats, daytime sleepiness, difficulty sleeping, excessive sweating, weight gain, weight loss, increased appetite, poor appetite, anorexia or other Eyes Eyes: Negative for blind spots, loss of peripheral vision, transient loss of vision, blurry vision, change in vision, double vision, floaters, tunnel vision or other ENT ENT: Negative for headache(s), dizziness, hearing loss, tinnitus, Nosebleed/epistaxis, balance problems, post nasal drip, lip swelling, tongue swelling, bleeding gums, hoarseness, neck pain, dry mouth or other Cardio Chest Pain: No Palpitations: No Edema: None Muscle aches with walking: Bilateral (Hx Hx FEM/FEM bypass, PAD, seeing pain management) Resp Respiratory: Negative for SOB with activity, SOB at rest, SOB orthopnea\SOB lying down, Coughing up blood/hemoptysis, chest congestion, pain on inspiration, snoring, stridor, wheezing, crackles, paroxysmal nocturnal dyspnea or other GI GI: Negative nausea, vomiting, heartburn, constipation, belching, bloating, cramping, vomiting blood/hematemesis, bright, red blood in stools, black,tarry stools, loose stools, Difficulty Swallowing or other : Negative for hematuria, frequent nighttime urination/ nocturia, erectile dysfunction or abnormal vaginal bleeding Musc Musc: Positive for muscle aches/ myalgia (leg aches with walking, severe); negative for balance problems, muscle weakness or joint pain Skin Skin: Negative redness, non-healing lesions, rash, unusual bruising, skin ulcer, wounds, jaundice or other Neuro Neuro: Negative for weakness, headache(s), frequent falls, blurry vision, double vision, dizziness, lightheadedness, near syncope, syncope, orthostatic symptoms, confusion, memory loss, restless legs, vertigo, seizures, lack of coordination or other Artie Hematologic/Lymphatic: Negative for easy bleeding, easy bruising, enlarged lymph nodes or other Endo Endo: Negative for fatigue, excessive sweating, cold intolerance, heat intolerance, flushing, increased thirst/drinking, increased hunger, hair loss, hair growth or other Psych Psych: Negative for anxiety, depression, thoughts of harming anyone, thoughts of harming yourself, visual hallucinations, panic attacks or audible hallucinations Allergy Allergy/Immunology: Negative for lip swelling, Negative for tongue swelling, Negative for rash, Negative for throat swelling, Negative for hives Cardiology Exam Const Appearance: cooperative, healthy appearing [...] Peripheral arterial disease I73.9 Plan 1. Peripheral arterial disease: The patient has known peripheral arterial disease and underwent right to left femorofemoral bypass surgery by Dr. Tamayo in the distant past. The patient has recurrent claudication type symptoms, with abnormal PVRs requiring lower [facility] angiogram at the [facility]. I recommended the patient to get a copy of his lower extremity angiogram from the [facility], and seek a second opinion with either Dr. Baugh at [facility] or Dr. Tamayo who performed the surgery in the first place. In the meantime I recommended he start Pletal 100 mg p.o. twice daily for claudication symptoms. We will hold off on adding Plavix at this time. Continue baby aspirin. 2. Atherosclerotic heart disease of [place] coronary artery with angina pectoris with documented spasm I25.111 PTCA with stent of [place] of firts major dx 09/21/2003 Plan 2. Coronary artery disease: Patient denies any exertional anginal symptoms at this time. He does complain of significant tiredness which is most likely a result of his beta-jose eduardo. Recommend decreasing his Lopressor to 12.5 mg p.o. twice daily, continuing baby aspirin, and fosinopril.. 3. Hyperlipidemia, unspecified hyperlipidemia type E78.5 Plan 3. Hyperlipidemia: His LDL and HDL cholesterol are at goal. Continue Crestor. 4. Return office in six-months. This note was generated using a voice recognition system and there may be incorrect words, spelling or punctuation that were not noted when reviewing the office note prior to saving. Plan Detail Other Medications New: cilostazol administer at least 30 minutes before or 2 hours after [id number] mg PO BID ast and dinner Changed: Follow Up +6M (Talha) Coding Level of Care Code Off vis,est,level 3 Diagnoses Peripheral arterial disease I73.9 Atherosclerotic heart disease of [place] coronary artery with angina pectoris with documented spasm I25.111 Hyperlipidemia, unspecified hyperlipidemia type E78.5 Hyperlipidemia type: unspecified Coding Level of Care Code Off vis,est,level 3 Diagnoses Peripheral arterial disease I73.9 Atherosclerotic heart disease of [place] coronary artery with angina pectoris with documented spasm I25.111 Hyperlipidemia, unspecified hyperlipidemia type E78.5 Hyperlipidemia type: unspecified 01/06/18 1534 <Electronically signed by Mau Palencia MD> Date Mau Palencia MD Cosigner Signature: Date (if applicable) CC: Angela Martinez DO LIVER PROFILE Collected: 12/27/2017 Status: F Source: [place] 9:10 AM [facility] REPOSITORY TYPE CODE TESTS RESULT OUT OF RANGE REFERENCE UNITS LAB L501.1500 6.4-8.2 g/dL Normal T PROT 7.5 LAB L501.1800 3.2-5.0 g/dL Normal ALB 4.0 LAB L501.1950 2.2-4.2 g/dL Normal GLOB 3.5 LAB L501.4100 15-37 U/L Normal AST 25 LAB L501.4305 45-117 U/L Normal ALK P 80 LAB L501.4405 16-61 U/L Normal ALT 40 LAB L501.4600 0.20-1.00 mg/dL Normal T BILI 0.60 LAB L501.4700 0.00-0.30 mg/dL Normal D BILI 0.16 Performed By: #### L500.3400, L500.4100 #### [facility] [address] [place], [place], [id number] LIPID PROFILE Collected: 12/27/2017 Status: F Source: [place] 9:10 AM [facility] REPOSITORY TYPE CODE TESTS RESULT OUT OF RANGE REFERENCE UNITS LAB L501.4900 200 mg/dL Normal CHOL 150 Result Comment: <200 mg/dL Desirable 200-240 mg/dL Borderline >240 mg/dL High Risk LAB L501.5000 mg/dL Normal TRIG 128 Result Comment: The drugs N-Acetylcysteine and Metamizole may falsely depress this assay. Serum Triglycerides Reference Interval Normal <150 mg/dL Borderline high 150 - 199 mg/dL High 200 - 499 mg/dL Very High > or = 500 mg/dL LAB L501.6400 mg/dL Normal HDL 60 Result Comment: The drugs N-Acetylcysteine and Metamizole may falsely depress this assay. Reference Range HDL <40 mg/dL Low HDL Cholesterol HDL >or= 60 mg/dL High HDL Cholesterol LAB L501.6500 0-130 mg/dL Normal LDL 64 LAB L501.6600 5-40 mg/dL Normal VLDL 26 Performed By: #### L500.3400, L500.4100 #### [facility] [address] [place], [place], [id number] HIP 2-3 VIEWS WITH Observed: 09/01/2017 Status: F Source: [place] 11:45 AM [facility] REPOSITORY [facility] Imaging Services [address] [place] [address] Hip 2-3 Views with Pelvis MR#: [id number] Acct: [id number] Name: MERRICK BRYAN Rep #: [id number] : 1945 M 71 From: Olivier Dugan PCP: Angela Martinez DO Status: REG CLI Study: Hip 2-3 Views with Pelvis Date of Exam: 09/01/17 Exam# [id number] Ordering Dr: Angela Martinez DO STUDY: X-RAY - PELVIS AND LEFT HIP REASON FOR EXAM: Male, 71 years old. Pain TECHNIQUE: Radiological exam, hip, unilateral, with pelvis when performed; 2 or 3 views. COMPARISON: None. FINDINGS: There is a non-specific bowel gas pattern. Normal visualized soft tissue structures. Normal bilateral iliac wings, sacroiliac joints and visualized sacrum. Normal bilateral superior and inferior pubic rami. Normal pubic symphysis. Normal bilateral ischial tuberosities. Normal visualized femoral head. Normal acetabulum. Normal hip joint. RAD/Hip 2-3 Views with Pelvis IMPRESSION: Normal x-ray examination of the pelvis and hip. Electronically Signed: Olivier Dugan DO at 23:55 EDT , Service support , CC: Angela Martinez DO Order Packer Or Packager: Signed S-I JTS 3 OR MORE Observed: 09/01/2017 Status: F Source: [place] 11:45 AM [facility] REPOSITORY [facility] Imaging Services [address] [place] [address] S-I Jts 3 or More Views MR#: [id number] Acct: [id number] Name: MERRICK BRYAN Renee Rep #: [id number] : 1945 M 71 From: Olivier Dugan PCP: Angela Martinez DO Status: REG CLI Study: S-I Jts 3 or More Views Date of Exam: 09/01/17 Exam# [id number] Ordering Dr: Angela Martinez DO STUDY: X-RAY - SACROILIAC JOINTS REASON FOR EXAM: Male, 71 years old. Pain TECHNIQUE: 3 view(s) of the sacroiliac joints were obtained. COMPARISON: None. FINDINGS: Normal bilateral sacroiliac joints. Normal visualized sacral ala and sacrum. Normal visualized iliac bones. Normal visualized soft tissue structures. RAD/S-I Jts 3 or More Views IMPRESSION: Normal x-ray examination of the bilateral sacroiliac joints. Electronically Signed: Olivier Dugan DO at 23:57 EDT , Service support , CC: Angela Martinez DO Order Packer Or Packager: Signed L/S SPINE MIN 4 Observed: 09/01/2017 Status: F Source: [place] VIEWS 11:45 AM [facility] REPOSITORY [facility] Imaging Services [address] [place] [id number] L/S Spine Min 4 Views MR#: [id number] Acct: [id number] Name: BRYAN,DAVID Renee Rep #: [id number] : 1945 M 71 From: Olivier Dugan PCP: Angela Martinez DO Status: REG CLI Study: L/S Spine Min 4 Views Date of Exam: 09/01/17 Exam# [id number] Ordering Dr: Angela Martinez DO STUDY: X-RAY - LUMBAR SPINE REASON [...] IMPRESSION: No fracture. Normal lordosis. Degenerative disc disease L5-S1. Electronically Signed: Olivier Dugan DO at 23:58 EDT , Service support , CC: Angela Martinez DO Order Packer Or Packager: Signed ALLERGIES ALLERGIES DATE TYPE / CODE NAME / CODE REACTION SEVERITY SOURCE 01/06/2018 Drug atorvastatin/F00 MYALGIAS [place] [facility] Allergy/984 0618902(RXNORM) [facility] 873517(SNOM Repository ED CT) Drug NO KNOWN [facility] Class/38352 ALLERGIES [facility] 1003(SNOMED Repository CT) NG/[id number] NO KNOWN [place] [address](SNOMED ALLERGIES Health System CT) Repository ENCOUNTERS ENCOUNTERS ADMIT/DISCHARGE ACCOUNT NUMBER ADMITTING ENCOUNTER LOCATION SOURCE CLASS 05/31/2018 [id number] Ambulatory [facility] ding:[facility] Repository 05/31/2018 [id number] Ambulatory BMSBuilding: [facility] Repository 05/26/2018 [id number] Ambulatory [place] Repository 03/25/2018/03/25/20 [id number] Ambulatory [address] Repository 03/25/2018/03/25/20 [id number] Ambulatory [place] [address] GENERAL [facility] MEDICAL Repository CENTERBuildi ng:AGWM 03/07/2018 [id number] Ambulatory [facility] Repository 02/25/2018/02/26/20 [id number] Ambulatory [address] Repository 02/25/2018/02/26/20 [id number] Ambulatory [address] Other [place] Repository 02/25/2018/02/26/20 [id number] Ambulatory [address] MEDICAL Repository CENTERBuildi ng:AGWM 02/02/2018/02/03/20 [id number] Ambulatory [address] Main [place] Repository 01/28/2018/01/29/20 [id number] Ambulatory [address] Other [place] Repository 01/28/2018/01/29/20 [id number] Ambulatory [address] MEDICAL Repository CENTERBuildi ng:AGWM 01/06/2018/01/07/20 [id number] Ambulatory BMSBuilding: [address] Repository 12/27/2017 [id number] Ambulatory [facility] ding:LAB Repository 09/01/2017 [id number] Ambulatory [facility] ding:HPRAD Repository 08/06/2017 [id number] Ambulatory [facility] Repository PAYERS PAYERS ENCOUNTER GUARANTOR PAYER SUBSCRIBER SOURCE 05/31/2018 MERRICK Duran Primary MERRICK [id number] Insurance:MEDICARE [facility]ENTERGOMERYDOB: [facility]ly [facility] [place] PART A olicy Number: [id number], [place] [id number] Repository [address]Gpu: 330) Date:2018-05-26 [phone] () 05/31/2018 Secondary MERRICK Albert Insurance:AARPPolicy [facility] CENTERGOMERYDOB: [facility] Number: [id number] [id number] Repository Date:8852-86-14[address], [place] [address]QP: 05/31/2018 Tertiary NOT RAISA Albert Insurance:SELF PAY [facility] Number: Effective Repository Date:2018-05-26 05/31/2018 MERRICK Duran Primary MERRICK Albert [id number] Insurance:MEDICARE [facility] CENTERGOMERYDOB: [facility] A olicy Number: [id number], [place] [id number] Repository [address]Uzc: (330) Date:2018-05-263632 (HP) 05/31/2018 Secondary MERRICK L [place] Insurance:[facility]ARWarren State Hospitaldavis [facility]ENTERSAILAJAOB: [facility] Number: [id number] Hospital [id number] Repository Date:5951-63-74[address]CDCYPFF, [place] [address]AE: 05/31/2018 Tertiary NOT GIVENUNK Bety Insurance:SELF PAY [facility] Number: Effective Repository Date:2018-05-31 05/26/2018 Merrick L Primary Merrick L OHIP Practices [facility]: Insurance:MedicarePoli MontgomeryDOB: Repository [id number] cy Number: [id number] [place] [id number] 6 [place], [place] Date:2096-26-02Ezag [place], [place] [address]Hkk: (330) Name:[facility] [address]Kzr: [id number], [place] 3632 (HP) (HP)Tel: [phone]: [phone] 05/26/2018 Secondary Merrick L OHIP Practices Insurance:AARP/Laith [facility] HospitalSailajaOB: Repository cy Number: [id number] 6 [place] Date:6716-12-74[place], [place] Name:[facility] [address]Oif: (859) 3369[address]Fzjasfg, [place] 363 (HP) [id number]: 05/26/2018 Tertiary Merrick L OHIP Practices Insurance:AETNAHonorhealth Scottsdale [facility]born Medical Centerludwig [facility]: Repository Number: [id number] [address] [place] Date:2005-03-14 - [place], [place] 8429-26-47Lcff [address]Pdo: (330) Name:[facility] [id number] 3632 (HP) [place] [id number]: 05/26/2018 Tertiary Merrick L [facility] Insurance:Medical MontgomeryDOB: Repository [facility] [id number] Number: 6 Roelengadine [id number] [place], [place] Date: - 8011-96-89Dudb 270[address]Ctj: (330) Name:[facility] [phone] (HP) [address]Zsvvgixdf, [place] [id number]: 05/26/2018 Tertiary [facility] Insurance:[facility] HospitalmeryDOB: Repository cy Number: [id number] 6 [place] Date:2007-05-14 [place] 4528-97-70Jooa [address]Njw: (318) Name:[facility] [phone] (HP) [address], [place] [address]OX: 03/25/2018 MERRICK Primary [facility]: Insurance:MEDICARE A [facility]ITALOB: Health System AND BPolicy Number: [id number] Repository [facility] [id number] [place], [place] Date: [address]Vbe: (HP) 03/25/2018 Secondary MERRICK [place] [facility] Insurance:[facility]: [facility] [id number] Repository Number: [id number] Date: 02/25/2018 MERRICK Primary [facility]: Insurance:MEDICARE A [facility] CENTERYDOB: Health System AND BPolicy Number: [id number] Repository [facility] [id number] [place], [place] Date: [address]Zqz: (HP) 02/25/2018 Secondary MERRICK [place] [facility] Insurance:[facility] HOSPITALYDOB: Health System SUPPLEMENTHoly [facility] [id number] Repository Number: [id number] Date: 01/28/2018 MERRICK Primary MERRICK Gallagher General MONTGOMERYDOB: Insurance:MEDICARE A MONTGOMERYDOB: Health System [id number] AND BPolicy Number: [id number] Repository [facility] [id number] [place] Date: [address]Yge: (HP) 01/28/2018 Secondary MERRICK Gallagher General Insurance:[facility] AARP MONTGOMERYDOB: Health System SUPPLEMENTPolicy [id number] Repository Number: [id number] Date: 01/06/2018 MERRICK L Primary MERRICK Albert [id number] Insurance:MEDICARE MONTGOMERYDOB: Community [place] PART A BPolicy Number: [id number] [place], [place] [id number] Repository [address]Ljq: (355) Date:2017-07-06 [phone] (HP) 01/06/2018 Secondary MERRICK Albert Insurance:AARPPolicy MONTGOMERYDOB: Community Number: [id number] Hospital [id number] Repository Date:2962-04-80[address]PG[place], [place] [address]OO: 01/06/2018 Tertiary NOT GIVENUNK [place] Insurance:SELF PAY [facility] Number: Effective Repository Date:2018-01-06 12/27/2017 MERRICK L Primary MERRICK Albert [id number] Insurance:MEDICARE MONTGOMERYDOB: Community [place]AYBERRY PART A BPolicy Number: [id number], [place] [id number] Repository [address]Avk: (910) Date:2017-12-27 [phone] (HP) 12/27/2017 Secondary MERRICK Duran [place] Insurance:AARPPolicy MONTGOMERYDOB: Community Number: [id number] Hospital [id number] Repository Date:5807-70-12DD [facility] [address]24[place], [place] [address]VN: 12/27/2017 Tertiary NOT GIVENUNK [place] Insurance:SELF PAY [facility] INSURANCEHoly [facility] Number: Effective Repository Date:2017-12-27 09/01/2017 MERRICK Duran Primary MERRICK [facility]Mer[facility] Hospital [facility], formerly [facility] [id number] Insurance:MEDICARE MONTGOMERYDOB: Community [facility] PART A BPolicy Number: [id number] [facility] [address], [id number] Repository [place] [address]Vur: Date:2017-09-01 () 09/01/2017 Secondary MERRICK Renee Albert Insurance:AARPPolicy MONTGOMERYDOB: Community Number: [id number] [facility] [id number] Repository Date:6674-92-00[address], [place] [address]MD: 09/01/2017 Tertiary NOT GIVENUNK Bety Insurance:SELF PAY [facility] Number: Effective Repository Date:2017-09-01 08/06/2017 Merrick Duran Primary Merrick Vionic [employer] [facility] HospitalmeryDOB: Insurance:MedicarePoli MontgomeryDOB: System [id number] cy Number: Effective [id number] Repository [address], [place]: [place] [address] 08/06/2017 Secondary [facility] Insurance:MedicarePoli MontgomeryDOB: System cy Number: Effective [id number] Repository Date: 08/06/2017 Tertiary Insurance:[facility] AARP SupplementPolicy FirsthealthgomeryDOB: System Number: Effective [id number] Repository Date:
--- OUTSIDE RECORDS SUMMARY | 2018-09-01 11:27 | XMS RPT_ITS | Continuity of Care Document ---
:1945 Author Organization [facility] Address [address] [facility] [address] [place] [address] Phone Care Team Providers Name Role Phone Angela Murphy DO Unavailable Pauline Beltran Unavailable Unavailable Chelsey Duckworth Unavailable Unavailable Unavailable [...] Start : 13-May-2017 Active Comments:[place] Metoprolol Tartrate 25 MG Oral Tablet 1 [...] QD for 0 days Refills: 0 Ordered:26-May-2018 RubyLindain Start : 04-Jun-2008 End : 26-May-2018 Inactive DOXYCYCLINE HYCLATE, 100MG (Oral Capsule) 1 (one) Capsule bid for 14 days Quantity: 28 {Capsule} Refills: 0 Ordered:07-Feb-2009 Charissejuve JONAHNoris Start : 07-Feb-2009 End : 26-Mar-2009 Inactive FLECTOR, 1.3% (Transdermal Patch) 1 Patch on 12 hrs off 12 for 4 days Refills: 0 Ordered:04-Nov-2011 Julia JONAH Noris Hurtado Start : 30-Oct-2011 End : [...] Visit Report Result: Comments: See Note; NOTES: [facility] [place] [address] OFFICE VISIT Date of Service: 01/06/18 MR#: [id number] Acct: [id number] Name: KAREN BRYAN Rep #: [id number] : 1945 Provider: Mau Palencia MD Age/Sex: 72/M Location: [facility] Status: Signed HPI HPI Chief Complaint: Routine f/u Details: MERRICK BRYAN, is a 72 M who is returnin g for followup of his coronary artery disease status post angioplasty and drug- eluting stenting of his diagonal with a 2.5 X12 taxus, at [facility] on 09/21/03, with associated documente d [...] which have been managed by both the [facility] as well as Dr. Baugh at [facility]. In 1998 the patient apparently underwent [...] 2017 he underwent PVRs at an outside [facility], and was referred to the [place] for repeat lower extremity angiography. 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 I recommended the patient to get a copy of his lower extremity angiogram from the [place], and seek a second opinion with either Dr. Elmo robison at [facility] or Dr. Tamayo who performed the surgery in the first place. In the meantime I recommended he start Pletal 100 mg p.o. twice daily for claudication symptoms. We will hold off on adding Plavix at this time. Continue baby aspirin. 2. 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 with documented spasm I25.111 Hyperlipidemia, unspecified hyperlipidemia type E78.5 Hyperlipidemia type: unsp ecified 01/06/18 1534 <Electronically signed by Mau Palencia MD> Date Mau Palencia MD Cosigner Signature: Date (if applicable) CC: Angela Murphy DO 01-Sep-2017 Hip 2-3 Views with Pelvis Result: Comments: See Note; NOTES: [facility] Imaging Services [address] [place], [place] [address] [address] Hip 2-3 Views with Pelvis MR#: [id number] Acct: [id number] Name: MERRICK BRYAN Rep #: [id number] : 1945 M 71 From: Olivier Dugan PCP: Angela Murphy DO Status: REG CLI Study: Hip 2-3 Views with Pelvis Date of Exam: 09/01/17 Exam# [id number] Ordering Dr: Angela Murphy DO STUDY: X-RAY [...] supp ort , CC: Angela Murphy DO Tubing Drier: Signed 01-Sep-2017 L/S Spine Min 4 Views Result: Comments: See Note; NOTES: [facility] Imaging Services [address] [place] [address] L/S Spine Min 4 Views MR#: [id number] Acct: [id number] Name: MERRICK BRYAN Rep #: [id number] : 1945 M 71 From: Olivier Dugan PCP: Angela Murphy DO Status: REG CLI Study: L/S Spine Min 4 Views Date of Exam: 09/01/17 Exam# [id number] Ordering Dr: Angela Murphy DO STUDY: X-RAY [...] Service support , CC: Angela Murphy DO Tubing Drier: Signed 01-Sep-2017 S-I Jts 3 or More Views Result: Comments: See Note; NOTES: [facility] Imaging Services [address] [place] [address] S-I Jts 3 or More Views MR#: [id number] Acct: [id number] Name: MERRICK BRYAN Rep #: [id number] : 1945 71 From: Olivier Dugan PCP: Angela Murphy DO Status: REG CLI Study: S-I Jts 3 or More Views Date of Exam: 09/01/17 Exam# [id number] Ordering Dr: Angela Murphy DO STUDY: X-R [...] Service support , CC: Angela Murphy DO Tubing Drier: Signed 06-Jul-2017 Cardiology Visit Report Result: Comments: See Note; NOTES: [facility] [address] [place] [address]. [address] [place] [address] OFFICE VISIT Date of Service: 07/06/17 MR#: [id number] Acct: [id number] Name: KAREN BRYAN Renee Rep #: [id number] : 1945 Provider: Mau Palencia MD Age/Sex: 71/M Location: [facility] Status: Signed HPI 6 M FU: Chief Complaint: Routine F/u Details: HPI Referring physician: Dr. Angela sanders It was a pleasure seeing your patient, Merrick Bryan who is returning for followup of his coronary artery disease status post angioplasty and drug- eluting stenting of his diagonal with a 2.5 X1 2 taxus, at [facility] on 09/21/03, with associated documented coronary vasospasm. his remaining coronary arteries appear to be free of significant disease. Since his last visit Mr. Isabel whitehead has had no chest, neck, jaw, [...] which have been managed by both the [facility] as well as Dr. Baugh at [facility]. 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 with documented [...] of Care Code Off vis,est,level 3 8 9962 <Electronically signed by Mau Palencia MD> Date Mau Palencia MD Cosigner Signature: Date (if applicable) CC: 04-Mar-2017 Spine Lumbar W/WO Contrast Result: Comments: See Note; NOTES: [facility] Imaging Services [address] [place] [address] Spine Lumbar W/WO Contrast MR#: [id number] Acct: [id number] Name: MERRICK BRYAN Rep # : [id number] : 1945 M 71 From: Juvenal Darden MD PCP: Angela Murphy DO Status: REG CLI Study: Spine Lumbar W/WO Contrast Date of Exam: 03/04/17 Exam# [id number] Ordering Dr: Antolin Marcos STUDY: MRI LUMBAR [...] , CC: Antolin Marcos; Angela Murphy DO Tubing Drier: Signed 15-Oct-2016 Spine Lumbar (Routine) Result: Comments: See Note; NOTES: [facility] Imaging Services [facility] [place] [address] Verdanataly 4d Spine Lumbar (Routine) MR#: [id number] Acct: [id number] Name: MERRICK BRYAN Rep #: [id number] : 1945 M 70 From: Susie Castle MD PCP: Angela Murphy DO Status: REG CLI Study: Spine Lumbar (Routine) Date of Exam: 10/15/16 Exam# [id number] Ordering Dr: Angela Murphy STUDY: MRI LUMBAR SPINE WITHOUT CONTRAST REASON [...] Service support , CC: Angela Murphy DO Tubing Drier: Signed 13-May-2016 Vascular Test/LEAS/UEAS Result: Comments: See Note; NOTES: [facility] Cardiovascular Services [address] [place] [address] Verdana 4d Lower Ext Art Exam w/o Exercis MR#: [id number] Acct: [id number] Name: MERRICK LYON Rep #: [id number] : 1945 70 From: Nando Chávez MD [...] on the left. Nando Chávez M.D. T: NTS JOB: [id number] 05/13/16 1129 <Electronically signed by Nando Chávez MD> Date Nando Chávez MD CC: SUNG BAUGH MD; Angela Murphy DO Date Dictated: 05/06/16 1037 Date Transcribed: 05/06/16 1037 Tubing Drier: Signed 22-Apr-2016 Carotid Duplex Ultrasound Result: Comments: See Note; NOTES: [facility] Cardiovascular Services [address] [place] [address] Carotid Duplex Ultrasound 04/17/16 0934 MR#: [id number] Acct: [id number] Name: MERRICK BHATTI Rep #: [id number] : 1945 70 From: Nando Chávez MD Attending Dr: SUNG BAUGH MD Status: REG CLI Ordering Dr: Sung Baugh MD Date: 04/17/16 Location: [facility] Sex: M C Admitted: Reason For Study: [...] the left vertebral artery. Procedure Carotid Duplex 33631. Exam performed in department. Interpretation Summary Mild (&#60 ;50%) stenosis right extracranial internal carotid. Mild (<50%) stenosis left extracranial internal carotid. Flow within the vertebral arteries is antegrade bilaterally. Ordering Physician: SUNG BAUGH Performed By: Lisa Markham RVT 04/22/16 2103 Date Nando Chávez MD CC: SUNG BAUGH MD; Angela Murphy DO Date Dictated: 04/17/16 0934 Date Transcribed: 04/22/162102 Tubing Drier: Signed 20-Jan-[address] Lung Screening Result: Comments: See Note; NOTES: [facility] Imaging Services [address] [place] [address] Lung Screening MR#: [id number] Acct: [id number] Name: Tasia BRYAN Rep #: [id number] : 1945 M 70 From: Juvenal Darden MD PCP: Angela Murphy DO Status: REG CLI Study: Low Dose CT Lung Screening Date of Exam: 01/20/16 Exam# [id number] Ordering Dr: Angela Murphy DO STUDY: CT [...] at 10:26 EDT Tel , Service support [phone], CC: Angela Murphy DO Tubing Drier: Signed 30-Apr-2015 CTA Abd w/Runoff W/WO Contrast Result: Comments: See Note; NOTES: [facility] Imaging Services [address] [place] [address] Verdana 4d CTA Abd w/Runoff W/WO Contrast MR#: [id number] Acct: [id number] Na me: MERRICK BRYAN Rep #: [id number] : 1945 69 From: Vlad Zarco DO PCP: Angela Murphy DO Status: REG CLI Study: CTA Abd w/Runoff W/WO Contrast Date of Exam: 04/30/15 Exam# [id number]: Sung Baugh MD STUDY: [...] axial data set. Post-processing of the angiographic clint ges was performed, with multiplanar reformation and [...] Vlad Zarco DO at 17:07 EST Tel [phone], Service support [phone], CC: SUNG Campos MD; Angela Murphy DO Tubing Drier: Signed 13-Feb-2015 Vascular Test/LEAS/UEAS Result: Comments: See Note; NOTES: [facility] Cardiovascular Services [address] [place] [address] Lower Ext Art Exam w/ Exercise 02/06/15 1024 MR#: [id number] Acct: [id number] Name: MERRICK BRYAN Rep #: [id number] : 1945 69 From: Nando Chávez MD Attending Dr: Angela Murphy DO Status: REG CLI Ordering Dr: Angela Murphy DO Date: 02/04/15 Location: [facility] Sex: M C Admitted: DATE OF SERVICE: [...] warranted. Nando Chávez M.D. T: NTS JOB: [id number] 02/13/15 1034 <Electronically signed by Nando Chávez MD> Date Nando Chávez MD CC: Angela Murphy DO Date Dictated: 02/06/15 1024 Date Transcribed: 02/06/15 1024 Tubing Drier: Signed 06-Feb-2015 Carotid Duplex Ultrasound Result: Comments: See Note; NOTES: [facility] Cardiovascular Services [address] [place] [address] Carotid Duplex Ultrasound 02/04/15 1010 MR#: [id number] Acct: [id number] Na me: MERRICK BRYAN Rep #: [id number] : 1945 69 From: Nando Chávez MD [...] the left vertebral artery. Procedure Carotid Duplex 28494. Exam performed in department. Interpretation Summary Mild (&amp ;#60;50%) stenosis right extracranial internal carotid. Mild (<50%) stenosis left extracranial internal carotid. Flow within the vertebral arteries is antegrade bilaterally. Ordering Physician: Angela Murphy Performed By: Lisa Markham RVT 02/06/1502 Date Nando Chávez MD CC: Angela Murphy DO Date Dictated: 02/04/15 1010 Date Transcribed: 02/06/15901 Tubing Drier: Signed 28-Jan-2015 Foot min 3 Views Result: Comments: See Note; NOTES: [facility] Imaging Services [address] [place] [address] Radiology Report MR#: [id number] Acct: [id number] Name: MERRICK BRYAN Rep #: [id number] : 1945 69 From: Benji Camacho MD PCP: Angela Murphy DO Status: REG CLI Study: Foot min 3 Views Date of Exam: 01/28/15 Exam# [id number] Ordering Dr: Angela Murphy DO STUD Y: [...] MD at 17:10 EDT , Service support [phone], RAD/Foot min 3 Views IMPRESSION: There is a calcaneal spur. Electronical ly Signed: Benji Camacho MD at 17:10 EDT , Service support [phone], CC: Angela Murphy DO Tubing Drier: Signed Immunization Name Dates Details Pneumococcal (2 years and up) on: 2012 Tdap (7 years and up) on: 22-Oct-2008 Comments: Lot #[id number]/2010Site-right deltoidDose0.5mlgiven by Jose A Amos LPN Family [...] kg/m2 Body Surface Area Calculated 1.86 m2 02-Bko-420948:10 Pulse 65 /min Comments: Pattern: Regular Respiration [...] kg/m2 Body Surface Area Calculated 2 m2 96-Ixz-599325:16 Pulse 73 /min Comments: Pattern: Regular Respiration [...] Area Calculated 2.01 m2 :17 Comments: hearing [facility] and had glaucoma test done [...] Description Value Details :10 Lipid Profile Comments: [facility] [address] [facility] [place], [place], [address] VLDL 26 mg/dL (Normal) Range: 5-40 LDL [...] mg/dL High Risk :10 Liver Profile Comments: [facility] [address] [place], [place], [address] D BILI 0.16 mg/dL (Normal) Range: 0.00-0.30 [...] Info: 0788-1 - *Hepatic Function PanelOrder Info: 93275-3 - *Lipid Profile CC PCPComments: 12 hours fasting, may have water.SEND COPY TO [facility] [address] [place], [address] VLDL 30 mg/dL (Normal) Range: 5-40 LDL [...] Info: 0788-1 - *Hepatic Function PanelOrder Info: 27615-5 - *Lipid Profile CC PCPComments: 12 hours fasting, may have water.SEND COPY TO [facility] [address] [place], [address] D BILI 0.16 mg/dL (Normal) Range: 0.00-0.30 T BILI 0.50 mg/dL (Normal) Range: 0.20-1.00 ALT 39 U/L (Normal) Range: 12-78 ALK P 100 U/L (Normal) Range: 45-117 AST 21 U/L (Normal) Range: 15-37 GLOB 3.8 g/dL (Normal) Range: 2.2-4.2 ALB 4.0 g/dL (Normal) Range: 3.4-5.0 Comments: Please note revised Albumin AND Globulin reference rangeeffective 2017. T PROT 7.8 g/dL (Normal) Range: 6.4-8.2 73-Pnc-851978:02 PSA (PROSTATE SPECIFIC Comments: PATIENT NOT FASTINGPERFORMED BY: [facility] [facility] [id number] ANTIGEN) (V76.44) Prostate Specific Ag, 0.9 ng/mL (Normal) Range: 0.0-4.0 Serum Comments: FilterEasy ECLIA methodology. .According to the [employer] [place] [employer], Serum PSA shoulddecrease and remain at undetectable levels after radicalprostatectomy. The AUA defines biochemical recurrence as an initialPSA value 0.2 ng/mL or greater followed by a subsequent confirmatoryPSA value 0.2 ng/mL or greater.Values obtained with d ifferent assay methods or kits cannot be usedinterchangeably. Results cannot be interpreted as absolute evidenceof the presence or absence of malignant disease. 7-Rse-838840:13 PTT (Activated Partial Comments: send to Pre Adm testing at [facility] [phone]; PATIENT NOT FASTINGPERFORMED BY: [facility] [facility] [id number] Thromboplastin Time) (35250) aPTT 27 {sec} (Normal) Range: 24-33 Comments: This test has not been validated for monitoring unfractionated heparintherapy. aPTT-based therapeutic ranges for unfractionated heparintherapy have not been established. For general guidelines onHeparin monitoring, refer to the [facility] Directory of Services. 7-Ind-822486:13 PT (Prothrobim Time) (48271) Comments: [phone]; PATIENT NOT FASTINGPERFORMED BY: [facility] [facility] [id number] Prothrombin Time 10.4 {sec} (Normal) Range: 9.1-12.0 INR 1.0 (Normal) Range: 0.8-1.2 Comments: Reference interval is for non-anticoagulated patients. . Suggested INR therapeutic range for Vitamin K anta gonist therapy: Standard Dose (moderate intensity therapeutic range): 2.0 - 3.0 Higher intensity therapeutic range 2.5 - 3.5 2-Zef-575473:13 METABOLIC PANEL, COMPREHENSIVE Comments: send to [facility] Adm testing at [facility] [phone]; PATIENT NOT FASTINGPERFORMED BY: [facility] [address] [facility] [id number] (29944) ALT (SGPT) 34 [iU]/L (Normal) Range: 0-44 [...] Glucose, Serum 109 mg/dL (Abnormal) Range: 65-99 1-Lgo-350934:13 CBC W/AUTO DIFF WBC Comments: also send results to [place] [address] [facility] [place] Pre- Adm testing; PATIENT NOT FASTINGPERFORMED BY: [facility]CoMor[facility] CenterRctomp[address] [place] [place] [id number] Information: [id number] (52270) Immature Grans (Abs) 0.0 {x10E3/uL} (Normal) Range: [...] 4.14-5.80 WBC 6.7 {x10E3/uL} (Normal) Range: 3.4-10.8 15-Aap-763285:10 Serum Creatinine AND GFR Comments: [facility] [address] [place], [address] EST GFR - AA 81 mL/min (Normal) Comments: GFR Calc EST GFR 67 mL/min (Normal) Comments: Non- GFR Calc CREAT,SERUM 1.15 mg/dL (Normal) Range: 0.70-1.30 Comments: The validity of the calculated GFR AND GFRAA in patients over70 years has not been determined. Clinical correlation isessential. :29 Lipid Profile Comments: [facility] [address] [place], [place], [id number] VLDL 25 mg/dL (Normal) Range: 5-40 LDL [...] mg/dL High Risk :29 Liver Profile Comments: [facility] [address] [place], [place], [address] D BILI 0.10 mg/dL (Normal) Range: 0.00-0.30 T BILI 0.50 mg/dL (Normal) Range: 0.20-1.00 ALT 43 U/L (Normal) Range: 12-78 ALK P 83 U/L (Normal) Range: 45-117 AST 21 U/L (Normal) Range: 15-37 GLOB 3.9 g/dL (Abnormal) Range: 2.3-3.5 ALB 3.8 g/dL (Normal) Range: 3.4-5.0 T PROT 7.7 g/dL (Normal) Range: 6.4-8.2 :39 Lipid Profile Comments: [facility] [address] [place], [place], [address] VLDL 24 mg/dL (Normal) Range: 5-40 LDL [...] mg/dL High Risk :39 Liver Profile Comments: [facility] [address] [place], [address] D BILI 0.14 mg/dL (Normal) Range: 0.00-0.30 T BILI 0.50 mg/dL (Normal) Range: 0.20-1.00 ALT 47 U/L (Normal) Range: 12-78 ALK P 94 U/L (Normal) Range: 50-136 AST 26 U/L (Normal) Range: 15-37 GLOB 3.5 g/dL (Normal) Range: 2.3-3.5 ALB 4.0 g/dL (Normal) Range: 3.4-5.0 T PROT 7.5 g/dL (Normal) Range: 6.4-8.2 :28 Fecal Occult Blood , Office (05969) Fecal Occult Blood , Office (Inhouse) negative (Normal) 89-Hrw-680562:35 PSA (PROSTATE SPECIFIC Comments: PATIENT NOT FASTINGPERFORMED BY: [facility]CoMor[facility] CenterNgxpsk0694 [facility] [id number] Information: [id number] ANTIGEN) (V76.44) Prostate Specific Ag, 2.5 ng/mL (Normal) Range: 0.0-4.0 Serum Comments: Fransisca ECLIA methodology. .According to the [employer] [place] [employer], Serum PSA shoulddecrease and remain [...] Microscopic Examination Comments: PATIENT WAS FASTINGPERFORMED BY: [employer]6370 [facility]çãoAt[facility]ly [id number] Bacteria Few (Normal) Mucus Threads Present (Normal) Epithelial Cells (non renal) 0-10 {/hpf} (Normal) Range: 0 - 10 RBC 0-2 {/hpf} (Normal) Range: 0 - 2 WBC 0-5 {/hpf} (Normal) Range: 0 - 5 :36 TSH (00750) Comments: PATIENT WAS FASTINGPERFORMED BY: [employer]6370 Mov[facility] NetworksUNC Health Lenoir [id number] TSH 1.440 {uIU/mL} (Normal) Range: 0.450-4.500 :36 URINALYSIS, W/ MICRO (69546) Comments: PATIENT WAS FASTINGPERFORMED BY: [employer]6370 [facility] da ProduçãoAt[facility] Health [facility]ly [id number] Microscopic Examination See below: (Normal) Comments: Microscopic was indicated and was performed. Microscopic Examination MICRON (Normal) Comments: Microscopic follows if indicated. Nitrite, Urine Negative (Normal) Urobilinogen,Semi-Qn 0.2 mg/dL (Normal) Range: 0.2-1.0 Bilirubin Negative (Normal) Occult Blood Negative (Normal) Ketones Negative (Normal) Glucose Negative (Normal) Protein Negative (Normal) WBC Esterase Negative (Normal) Appearance Clear (Normal) Urine-Color Yellow (Normal) pH 6.0 (Normal) Range: 5.0-7.5 Specific [place] 1.020 (Normal) Range: 1.005-1.030 :36 MICROALBUMIN: CREATININE RATIO Comments: PATIENT WAS FASTINGPERFORMED BY: [employer]6370 [facility] ProduçãoAt[facility] Health [facility]ly [id number] (69048) AND (52327) Microalb/Creat Ratio 11.4 {mg/g_creat} (Normal) Range: 0.0-30.0 Microalbumin, Urine 12.8 ug/mL (Normal) Creatinine, Urine 111.8 mg/dL (Normal) :36 METABOLIC PANEL, COMPREHENSIVE Comments: PATIENT WAS FASTINGPERFORMED BY: [employer]70 [facility] [id number] (71090) ALT (SGPT) 53 [iU]/L (Abnormal) Range: 0-44 [...] mg/dL (Abnormal) Range: 65-99 :36 LIPID PANEL (17644) Comments: PATIENT WAS FASTINGPERFORMED BY: [employer] [facility] [id number] LDL/HDL Ratio 1.1 {ratio_units} (Normal) Range: 0.0-3.6 [...] DIFF WBC Comments: PATIENT WAS FASTINGPERFORMED BY: [facility]CoMor[facility] CenterQyzbqb4194 [facility] [id number] Information: [id number], 944049 (71824) Immature Grans (Abs) 0.0 {x10E3/uL} (Normal) Range: [...] 4.14-5.80 WBC 8.1 {x10E3/uL} (Normal) Range: 3.4-10.8 64-Uhv-406084:27 URINE EULOGIO CULTURE (TASH Comments: PATIENT NOT FASTINGPERFORMED BY: [facility]CoMor[facility]own Medical CenterBvtiun4962 [facility] [id number] Information: SRC:[facility] [id number] COL COUNT) (00417) Result 1 BETAGB (Abnormal) Comments: Beta hemolytic [...] (CLSI 2011) Urine Final report (Abnormal) Culture,Comprehensive 01-Vml-458458:48 Urinalysis, Office (01942) UA - LEUKOCYTE ESTERASE Small (Normal) UA - NITRITE Negative (Normal) URINE UROBILINGN TASH TIMED 4 mg/dL (Normal) UA - PROTEIN 100 mg/dL (Normal) UA - PH 7.5 (Normal) UA - BLOOD Hemolyzed Trace (Normal) UA - SPECIFIC GRAVITY 1.025 (Normal) UA - KETONES 15 mg/dL (Abnormal) UA - BILIRUBIN Small (Normal) UA - GLUCOSE Negative (Normal) 11-Wtn-958993:43 Lipid Profile Comments: [facility] [address] [place], [address] VLDL 24 mg/dL (Normal) Range: 5-40 LDL [...] 200-240 mg/dL Borderline >240 mg/dL High Risk 96-Zbt-474725:43 Liver Profile Comments: [facility] [address] [place], [place], [address] D BILI 0.16 mg/dL (Normal) Range: 0.00-0.30 T BILI 0.50 mg/dL (Normal) Range: 0.20-1.00 ALT 56 U/L (Normal) Range: 12-78 ALK P 112 U/L (Normal) Range: 50-136 AST 31 U/L (Normal) Range: 15-37 GLOB 3.5 g/dL (Normal) Range: 2.3-3.5 ALB 4.1 g/dL (Normal) Range: 3.4-5.0 T PROT 7.6 g/dL (Normal) Range: 6.4-8.2 08-Vjr-570347:03 Basic Metabolic Profile (BMP) Comments: [facility] [address] [place], [place], [address] GAP 6 (Normal) Range: 5-15 CO2 26.0 [...] <126 mg/dLsuggests IMPAIRED HOMEOSTASIS per A.D.A. criteria. 24-Exp-327353:48 Microscopic Examination Comments: PATIENT NOT FASTINGPERFORMED BY: TERRELL [employer] TengradeUNC [facility] [id number] Bacteria Few (Normal) Mucus Threads Present (Normal) Crystal Type Calcium Oxalate (Normal) Crystals Present (Abnormal) Epithelial Cells (non renal) 0-10 {/hpf} (Normal) Range: 0 - 10 RBC 0-2 {/hpf} (Normal) Range: 0 - 2 WBC 0-5 {/hpf} (Normal) Range: 0 - 5 10-Dug-867924:48 URINALYSIS, W/ MICRO (63376) Comments: PATIENT NOT FASTINGPERFORMED BY: [employer] EngelTop ProspectAtrium Health Stanly [id number] Microscopic Examination See below: (Normal) Comments: Microscopic was indicated and was performed. Microscopic Examination MICRON (Normal) Comments: Microscopic follows if indicated. Nitrite, Urine Negative (Normal) Urobilinogen,Semi-Qn 0.2 mg/dL (Normal) Range: 0.0-1.9 Bilirubin Negative (Normal) Occult Blood Negative (Normal) Ketones Negative (Normal) Glucose Negative (Normal) Protein Negative (Normal) WBC Esterase Negative (Normal) Appearance Clear (Normal) Urine-Color Yellow (Normal) pH 6.0 (Normal) Range: 5.0-7.5 Specific [place] >=1.030 (Abnormal) Range: 1.005-1.030 54-Dmt-828780:48 MICROALBUMIN: CREATININE RATIO Comments: PATIENT NOT FASTINGPERFORMED BY: [facility] [id number] ([id number]) AND (70694) Microalb/Creat Ratio 5.9 {mg/g_creat} (Normal) Range: 0.0-30.0 Microalbumin, Urine 9.7 ug/mL (Normal) Range: 0.0-17.0 Creatinine, Urine 164.3 mg/dL (Normal) Range: 22.0-328.0 79-Irl-680379:48 METABOLIC PANEL, COMPREHENSIVE Comments: PATIENT NOT FASTINGPERFORMED BY: KannaLife SciencesUNC [facility] [id number] ([id number]) ALT (SGPT) 43 [iU]/L (Normal) Range: 0-44 [...] Glucose, Serum 124 mg/dL (Abnormal) Range: 65-99 05-Wwa-469706:48 CBC W/AUTO DIFF WBC Comments: PATIENT NOT FASTINGPERFORMED BY: [facility] [id number] Information: [id number] ([id number]) Immature Grans (Abs) 0.0 {x10E3/uL} (Normal) Range: [...] 4.14-5.80 WBC 7.9 {x10E3/uL} (Normal) Range: 3.4-10.8 12-Qfu-433794:48 PSA (PROSTATE SPECIFIC Comments: PATIENT NOT FASTINGPERFORMED BY: [facility] [id number] ANTIGEN) (V76.44) Prostate Specific Ag, 1.0 ng/mL (Normal) Range: 0.0-4.0 Serum Comments: Fransisca ECLIA methodology. .According to the [place] [employer], Serum PSA shoulddecrease and remain [...] disease. :06 Lipid Profile Comments: Test performed at:[facility] [address] [place], [place] [id number] VLDL 18 mg/dL (Normal) Range: 5-40 LDL [...] 200-240 mg/dL Borderline >240 mg/dL High Risk 41-Dmv-75654:06 Liver Profile Comments: Test performed at:[facility] [address] [place], [place] [id number] D BILI 0.11 mg/dL (Normal) Range: 0.00-0.30 T BILI 0.30 mg/dL (Normal) Range: 0.20-1.00 ALT 46 U/L (Normal) Range: 12-78 ALK P 94 U/L (Normal) Range: 50-136 AST 29 U/L (Normal) Range: 15-37 GLOB 3.5 g/dL (Normal) Range: 2.7-4.2 ALB 3.6 g/dL (Normal) Range: 3.4-5.0 T PROT 7.1 g/dL (Normal) Range: 6.4-8.2 6-Bwd-925231:00 LIPID VLDL 22 mg/dL (Normal) Range: 5-40 [...] CHOL 120 mg/dL (Normal) Comments: <200 mg/dL Bhdpnwsvq921-394 mg/dL Borderline>240 mg/dL High Risk 3-Lyn-789287:00 LIVER BID 0.18 mg/dL (Normal) Range: 0.00-0.30 BIT 0.60 mg/dL (Normal) Range: 0.00-4.00 ALT 51 U/L (Normal) Range: 12-78 ALK 99 U/L (Normal) Range: 50-136 AST 27 U/L (Normal) Range: 15-37 ALB 4.2 g/dL (Normal) Range: 3.4-5.0 TPROT 7.6 g/dL (Normal) Range: 6.4-8.2 83-Gmb-39305:12 AORTA Radiology Report See Note (Normal) Comments: [...] Matthews M.D.May 27, 2012 at 10:42:09 AM [id number] zully Signed GP/GP If you are the referring physician and would like to consult with theradiologist who provided this interpretation, please contact Forrest Em at [phone]. If this radi ologist is unavailable, youwill be directed to another radiologist to assist. If you are a patient with a question regarding this report, pleasecontactyour referring physician directly. Professional Int erpretation Provided By: [employer], Phone , These documents contain legally protected [...] 05/27/12 0827 by Janice Matthews MDranscribed on 05/27/121102 by ITS IMPORTSign by Abel Matthews MD on 05/27/12 110 Sign by: Abel Matthews MD 93-Qjf-40421:00 MRA HEAD WITHOUT CONTRAST Radiology Report See Note (Normal) Comments: PROCEDURE: MRA OF THE HEAD WITHOUT CONTRAST REASON FOR EXAM: Male, 66 years old. Family history of brainaneurysms. TECHNIQUE: 3-D zguj-pe-puojzc (TOF) imaging was performed with MIPs.Thestudy wa s performed unenhanced. COMPARISON: MRI brain -- 05/27/12. FINDINGS:Normal bilateral petrous carotid arteries. Normal right cavernouscarotidartery with a normal supraclinoid bifurcation. Normal left cavernouscarotid artery with a normal supraclinoid bifurcation. Normal right A1 segments of the anterior cerebral artery. Normal left H7socgssis of the anterior cerebral artery. Normal intact [...] There is no demonstrated aneurysm of the [place]. There is nomajor vessel occlusion or hemodynamically significant stenosis. IMPRESSION:Normal MRA of the head. No evidence of aneurysm. Signed:Yvonne Ramos M.D.May 27, 2012 at 8:42:02 PM EST [phone] Signed LL/LL If you are the referring physician and would like to consult with theradiologist who provided this interpretation, please contact Yvonne Pinto M.D. at . If this radiologist is unavailable, you willbe directed to another radiologist to assist. If you are a patient with a question regarding this report, pleasecontactyour referring physician directly. Professional Interpretation Provided By: [employer], Phone , PROCEDURE: MRI BRAIN WITHOUT CONTRAST REASON FOR EXAM: Male, 66 years old. Family history of aneurysms . TECHNIQUE: Standardized multiplanar fat and water weighted pulsesequences were obtained. COMPARISON: MRA brain -- 05/27/12. FINDINGS:Normal size of the ventricles and extra-axial spaces for the [facility].There are multiple white matter hyperintensities, distributed throughoutthe [...] Signed:Yvonne Ramos M.D.Dece 2011 at 8:45:08 PM [phone] Signed LL/LL If you are the referring physician and would like to consult with theradiologist who provided this interpretation, please contact Ricarda Pinto M.D. at [phone]. If this radiologist is unavailable, you willbe directed to another radiologist to assist. If you are a patient with a question regarding this report, pleasecontactyour referring physician directly. Professional Interpretation Provided By: [employer], Phone , These documents contain legally protected [...] destructionofthese documents. Dictated on 05/27/12 0745 by RICHARD SOTO,SUZIEATranscribed on 05/27/122048 by ITS IMPORTSign by YVONNE [...] effusion. No other significant abnormality is identified. Signed:Sanchez Rodriguez MDNovgenesis 2011 at 11:11:02 AM EDTElectronically Signed TP/TP Professional Interpretation Provided By: [facility], , To consult with a radiologist regarding this report, please call our [id number] line @ Dictated on 0848 by Sanchez [...] left lower extremity. History of prior lumbar eilnvwyvi8585. TECHNIQUE : Standardized fat and water weighted [...] foramina. Normal central canal and lateral recesses (V4dztkj series image 23). L2-3: Disc desiccation, mild [...] Signed LL/LL Professional Interpretation Prov ided By: [employer], , To consult with a radiologist regarding this report, please call our [id number] line @ Dictated on 0 11/16/11 0943 by RICHARD SOTO,SUZIEATranscribed on 11/16/11 1201 by ITS IMPORTSign by YVONNE RAMOS MD on 11/16/11 1202 Sign by: YVONNE RAMOS MD 60-Dnv-279888:29 HIP, MIN 2 VIEWS Radiology Report See [...] EDTElectronically Signed GP/GP Professional Interpretation Provided By: [employer], , To co nsult with a radiologist regarding this report, please call our [id number] line @ Dictated on 10/26/11 1400 by Byron SOTO,Janiceranscribed on 10/27/11 1004 by ITS IMPORTSign by Abel Sousa MD on 10/27/11 1005 Sign by: Abel Matthews MD :26 LIPID CHOL 129 mg/dL (Normal) Comments: <200 mg/dL Wxvgugdyy487-071 mg/dL Borderline>240 mg/dL High Risk HDL 56 [...] CHOL 142 mg/dL (Normal) Comments: <200 mg/dL Lrmbiisgk059-404 mg/dL Borderline>240 mg/dL High Risk :39 LIVER D BILI 0.09 mg/dL (Normal) Range: 0.00-0.30 ALB 3.8 g/dL (Normal) Range: 3.4-5.0 ALK P 92 U/L (Normal) Range: 50-136 ALT 40 U/L (Normal) Range: 12-78 AST 25 U/L (Normal) Range: 15-37 T BILI 0.40 mg/dL (Normal) Range: 0.00-1.00 T PROT 7.5 g/dL (Normal) Range: 6.4-8.2 98-Bdq-63172:34 HIP, MIN 2 VIEWS Radiology Report See Note (Normal) Comments: Exam Number: [id number] CLINICAL PROBLEMLeft hip pain similar to that [...] hip radiography. Reported By: URMILA THOMAS M.D. 23-Vkf-97701:18 CTA NECK W/WO CONTRAST Radiology Report See Note (Normal) Comments: Exam Number: [id number] CT ARTERIOGRAM NECK WITHOUT AND WITH CONTRAST [...] Report See Note (Normal) Comments: Exam Number: [id number] ULTRASOUND OF ABDOMINAL AORTA HISTORYBounding aortic abdominal [...] Report See Note (Normal) Comments: Exam Number: [id number] MRI OF THE LUMBAR SPINE WITHOUT CONTRAST ENHANCEMENT CLINICAL STATEMENTLow back pain.Left hip pain. COMPARISON STUDIESNone. TECHNIQUESagittal and axial T1 and T2 weighted images. Vertebral heights and alignment are maintained. The conus medullarisis normal. There is no spinal canal stenosis. There is a small right paracentral or posterior disc protrusion at uunH04-T7 level indenting the thecal sac, but not compressing the conus. L1-2No disc herniation or spinal canal or foraminal stenosis. The facetjoints are unremarkable. L2- 3There is a mild right foraminal disc protru rosalia indenting the thecalsac, not significantly encroaching on the neural foramen. The facetjoints are normal. L3-4The L3-4 discs is normal. L4-5The L4-5 disc is normal. L5-S2Cexff is marked decrease i n height and [...] T12-L1 level. Reported By: ANA CINTRON M.D. 4-Fpd-355787:26 PSA (PROSTATE SPECIFIC Comments: PATIENT NOT FASTINGClinical Information: ADD DRAW FEE [id number] ADD J [id number] PERFORMED BY: [facility] [id number] ANTIGEN) (V76.44) Prostate Specific Ag, Serum 0.8 ng/mL (Normal) Range: 0.0-4.0 Comments: FilterEasy ECLIA methodology. .According to the [place] [employer], PSA should beundetectable after radical prostatectomy. A PSA of less than0.5 ng/mL (or undetectable) is not likely to be associated withdisease recurrence within five years of treatment.Values obtained with different assay methods or kits cannot be usedinterchang eably. Results cannot be interpreted as absolute evidenceof the presence or absence of malignant disease. :24 KRISTIN-D [id number] KRISTIN-DIRECT 16 AU/mL (Normal) Range: 0-99 Comments: [...] {IU/mL} (Normal) Range: 0.0-13.9 Comments: Performed At: [address] [id number] :24 TSH 1.50 {uIU/mL} (Normal) Range: 0.34-4.82 :19 Urinalysis, Office (57180) Comments: RESOLVED UA - BILIRUBIN Small (Normal) [...] was performed using the TPSA method for theDinamundo chemistry system.Values obtained with different assay methods cannot be usedinterchangably.When changing PSA assays in the course of monito ring apatient, additional sequential testing should be carriedout to confirm baseline values. :55 ROUTINE UA Comments: DR. GAIENS ORDERED: LIPID/LIVER. BILIRUBIN URINE SeeNote (Normal) Comments: [...] Lumbar stenosis with neurogenic claudication : Reviewed Smocking Machine Operator Letter Indication: Lumbar stenosis with neurogenic claudication Peripheral vascular disease : Reviewed Smocking Machine Operator Letter Indication: Peripheral vascular disease Non-smoker : Eprescribed prescriptions (G8553) Indication: Non-smoker Lumbar stenosis with neurogenic claudication : Continue Current Prescription(s) Indication: Lumbar stenosis with neurogenic claudication Lumbar stenosis with neurogenic claudication : Reviewed Smocking Machine Operator Letter Indication: Lumbar stenosis with neurogenic claudication [...] pre-operative examination) Peripheral vascular disease : Reviewed Smocking Machine Operator Letter- Dr Baugh Indication: Peripheral vascular disease Hyperlipidemia, unspecified : Cholesterol mgmt Indication: Hyperlipidemia, unspecified Hypertension with heart disease : Continue Current Prescription(s) Indication: Hypertension with heart disease Coronary artery disease : Reviewed Smocking Machine Operator Letter Indication: Coronary artery disease Pre-operative exam (Renamed from Encounter for pre-operative examination) : Eprescribed prescriptions (G8553) Indication: Pre-operative exam (Renamed from Encounter for pre-operative examination) Pain of left lower extremity : Reviewed Diagnostic Tests Indication: Pain of left lower extremity Pain of left lower extremity : Reviewed Smocking Machine Operator Letter Indication: Pain of left lower extremity Encounter for screening for malignant neoplasm of colon (Renamed from Special screening for malignant neoplasms, colon) : *Colon Cancer Screening Indication: Encounter for screening for malignant neoplasm of colon (Renamed from Special screening for malignant neoplasms, colon) Peripheral vascular disease : Reviewed Smocking Machine Operator Letter Indication: Peripheral vascular disease Heart disease, hypertensive, malignant, without heart failure : Follow up in 6 months- gen med Indication: Heart disease, hypertensive, malignant, without heart failure Hyperlipidemia, unspecified : Cholesterol mgmt Indication: Hyperlipidemia, unspecified Heart disease, hypertensive, malignant, without heart failure : HTN/CAD Red Flags Indication: Heart disease, hypertensive, malignant, without heart failure Coronary artery disease : Reviewed Smocking Machine Operator Letter: Dr Palencia Indication: Coronary artery disease [...] heart failure Coronary artery disease : Reviewed Smocking Machine Operator Letter Indication: Coronary artery disease Hyperlipidemia, unspecified [...] Planned Observations FECAL OCCULT- Tubes sent home (14508)Indication: Encounter for screening for malignant neoplasm of colon (Renamed from Special screening for malignant neoplasms, colon) On: 47-Hrj-239649:00 Request FECAL OCCULT- Tubes sent home (28467)Indication: Encounter for screening for malignant neoplasm of colon (Renamed from Special screening for malignant neoplasms, colon) On: 40-Biw-232586:02 Request FECAL OCCULT- Tubes sent home (86233)Indication: Encounter for Medicare annual wellness exam On: 49-Nis-96216:22 Request PSA (PROSTATE SPECIFIC ANTIGEN) (V76.44)Indication: Screening for prostate cancer On: 09-Vqk-19546:16 Request TSH (83886)Indication: Coronary artery disease On: 8-Lwi-165926:15 Request URINALYSIS W/O MICRO (67282)Indication: Heart disease, hypertensive, malignant, without heart failure On: 5-Zzx-313406:15 Request MICROALBUMIN: CREATININE RATIO (24920) AND (33761)Indication: Heart disease, hypertensive, malignant, without heart failure On: 1-Vdy-429676:15 Request METABOLIC PANEL, COMPREHENSIVE (59921)Indication: Heart disease, hypertensive, malignant, without heart failure On: 1-Fnb-932872:15 Request LIPID PANEL (23756)Indication: Heart disease, hypertensive, malignant, without heart failure On: 3-Pja-418097:15 Request CBC WITH MANUAL DIFF (30059)Indication: Heart disease, hypertensive, malignant, without heart failure On: 3-Jml-574062:15 Request KRISTIN (ANTINUCLEAR ANTIBODY) (04292)Indication: Fatigue On: :09 Request C-REACTIVE PROTEIN (34444)Indication: Fatigue On: :09 Request CBC (AUTO) (99417)Indication: Fatigue On: :09 Request Folate (85284)Indication: Fatigue On: :09 Request METABOLIC PANEL, COMPREHENSIVE (91360)Indication: Fatigue On: : Request RHEUMATOID FACTOR-QUANT (51095)Indication: Fatigue On: : Request SED RATE ERYTHROCYTE (33973)Indication: Fatigue On: : Request TSH (66739)Indication: Fatigue On: : Request VITAMIN B-12 (CYANOCOBALAMIN) (11291)Indication: Fatigue On: :09 Request TSH (55414)Indication: Heart disease, hypertensive, malignant, without heart failure On: :08 Request METABOLIC PANEL, COMPREHENSIVE (36368)Indication: Heart disease, hypertensive, malignant, without heart failure On: :08 Request MICROALBUMIN URINE QUANT (55696)Indication: Heart disease, hypertensive, malignant, without heart failure On: :08 Request CBC WITH MANUAL DIFF (79295)Indication: Heart disease, hypertensive, malignant, without heart failure On: :08 Request LIPID PANEL (00493)Indication: Heart disease, hypertensive, malignant, without heart failure On: :08 Request PSA (PROSTATE SPECIFIC ANTIGEN) (35956)Indication: Coronary artery disease On: :49 Request URINALYSIS W/O MICRO (84751)Indication: Heart disease, hypertensive, malignant, without heart failure On: :47 Request TSH (61510)Indication: Heart disease, hypertensive, malignant, without heart failure On: :47 Request METABOLIC PANEL, COMPREHENSIVE (32683)Indication: Heart disease, hypertensive, malignant, without heart failure On: :47 Request MICROALBUMIN URINE QUANT (47223)Indication: Heart disease, hypertensive, malignant, without heart failure On: :47 Request LIPID PANEL (29171)Indication: Heart disease, hypertensive, malignant, without heart failure On: :47 Request CBC WITH MANUAL DIFF (66291)Indication: Heart disease, hypertensive, malignant, without heart failure On: :47 Request Planned Procedures ELECTROCARDIOGRAM, COMPLETE (ECG) On: 26-May-2018 Intent (27277)By: Angela Murphy DO, DO, Kathleen Nuclear Stress Test/Stress On: 26-May-2018 Intent SPECT/AdenosineBy: Angela Murphy DO, DO, Kathleen Radiology - Lumbar SpineBy: Katherine HUERTA, On: 01-Sep-2017 Intent Angela Del Rio DO X-RAY OF SACROILIAC JOINT (33266)By: On: 01-Sep-2017 Intent Angela Murphy DO, DO, Kathleen X-RAY OF LEFT HIP, TWO VIEWS (02180)By: On: 01-Sep-2017 Intent Angela Murphy DO, DO, Kathleen INTENSIVE BEHAVIORAL THERAPY TO REDUCE On: 25-Mar-2017 Intent CARDIOVASCULAR DISEASE RISK, INDIVIDUAL, KOCP-ZZ-GWZV, ANNUAL, 15 MINUTES (G0446)By: Angela Murphy DO, DO, Kathleen Flu Vaccine (Quadrivalent) 47784Jh: On: 18-Mar-2017 Intent Angela Murphy DO, DO, Kathleen Comments: Lot:[id number]:09/2017Dose:0.5mLRoute:IMSite:L DltdGiven By:SINAN signed ELECTROCARDIOGRAM, COMPLETE (ECG) On: 18-Mar-2017 Intent (37952)By: Angela Murphy DO Comments: nsr acute chg Angela HUERTA MRI LUMBAR SPINE W/O CONTRAST On: 07-Oct-2016 Intent (26596)By: Angela Murphy DO, DO, Kathleen CT CHEST SCREENING (07217)By: Katherine On: 15-Jan-2016 Intent Angela HUERTA DO, Kathleen ELECTROCARDIOGRAM, COMPLETE (ECG) On: 15-Jan-2016 Intent (66398)By: Angela Murphy DO Comments: sinus no acute chg - atrial rhythm-- on BB and h/o copd Angela HUERTA Carotid DopplerBy: Angela Murphy DO On: 28-Jan-2015 Intent Angela Murphy DO LE Arterial Exam - LowerBy: Katherine HUERTA, On: 28-Jan-2015 Intent Angela Del Rio DO Comments: with CLARISSA 's Radiology - Foot - LeftBy: Katherine HUERTA, On: 28-Jan-2015 Intent Angela Del Rio DO Comments: attention heel MRA - BrainBy: Angela Murphy DO On: 23-May-2012 Intent Angela Murphy DO Comments: dx family h/o (mother )brain aneurysm Ultrasound - AortaBy: Katherine HUERTA, On: 23-May-2012 Intent Angela Del Rio DO PHYSICAL THERAPY EVALUATION (20704)By: On: 10-Nov-2011 Intent Noris Dumont CNP MRI - Lumbar Spine (IV Contrast On: 10-Nov-2011 Intent Needed)By: Noris Dumont CNP MRI - Hip(s) - LeftBy: Noris Dumont CNP On: 10-Nov-2011 Intent E Toradol Injection, 30 mg (J1885)By: On: 30-Oct-2011 Intent Noris Dumont CNP Comments: Lot #[id number]-right hipDose-30mg.mlgiven by: Marlena Burgos LPN Toradol Injection, 30 mg (J1885)By: On: 26-Oct-2011 Intent Noris Dumont CNP Comments: Lot:[id number]:jun 27Amt:30mg/mlRoute:IMSite:left hip Given By: GEORGE Farah Radiology - Hip - LeftBy: Julia MCKENZIE, On: 26-Oct-2011 Intent Noris Hurtado DRAIN SKIN ABSCESS, SIMPLE/SINGLE On: 07-Feb-2009 Intent (61234)By: Noris Dumont CNP MRI - Lumbar SpineBy: Katherine HUERTA, On: 03-Jan-2009 Intent Angela Del Rio DO TDAP VACCINE >7 IM (96490)By: Katherine On: 22-Oct-2008 Intent Angela HUERTA DO, Kathleen Comments: Lot #[id number]-right deltoidDose0.5mlgiven by Jose A Amos LPN Radiology - Hip - LeftBy: Katherine DO, On: 22-Oct-2008 Intent Angela Del Rio DO MRI - Lumbar SpineBy: Katherine HUERTA, On: 16-May-2008 Intent Angela Del Rio DO Cartoid DopplerBy: Angela Murphy DO On: 16-May-2008 Intent Angela Murphy DO Bio Z (75058)By: KatherineAngela cazares DO On: 16-May-2008 Intent Angela Murphy DO Comments: stable EKG (39598)By: Angela Murphy DO On: 16-May-2008 Intent Angela Murphy DO Comments: sinus tach no acute CLARISSA (Ankle Brachial Index) (03752)By: On: 23-Nov-2007 Intent Cande Youssef Cartoid DopplerBy: Angela Murphy DO On: 14-Nov-2007 Intent Angela Murphy DO CLARISSA (Ankle Brachial Index) (88589)By: On: 14-Nov-2007 Intent Angela Murphy DO, DO, Kathleen Comments: set up Bio Z (02080)By: Angela Murphy DO On: 14-Nov-2007 Intent Angela Murphy DO Comments: normal svr and co Bio Z (73315)By: Noris Dumont CNP On: 07-Apr-2007 Intent Comments: normal svr and co EKG (83926)By: Noris Dumont CNP On: 07-Apr-2007 Intent Comments: [...] : Patient Instructions Indication: Sebaceous cyst Encounters Office Visit On: 26-May-2018 9:13 Encounter Reason: Back PainEncounter Diagnosis: BMI 30.0-30.9,adult, Non-smoker, Lumbar stenosis with neurogenic claudication, Coronary artery disease, Peripheral vascular disease (443.9), Exhaustion End: 26-May-2018 12:21 [facility] Office Visit On: 01-Sep-2017 10:58 Encounter Reason: Leg Pain - This condition occurred without any known injury. The patient sustained an injury to the left hip, left thigh and left knee. This occurred month(s) ago. Symptoms include leg pain, decreased r End: 01-Sep-2017 11:37 tequila of motion and difficulty bearing weight, [...] The patient does have durable power of trial attorney and living will. The patient has noticed having problems with memory than others. Other providers contributing to the patient's care are furniture assembly supervisor. Encounter Diagnosis: BMI 26.0-26.9,adult, Non-smoker, Annual Medicare [...] social history. Yes the patient did have (30/30) a mini mental status exam done tod [...] The patient does have durable power of trial attorney and living will. The patient has noticed getting bored. Other providers contribut ing to the patient's care are furniture assembly supervisor and urologist.Encounter Diagnosis: Encounter for Medicare annual [...] The patient does have durable power of trial attorney and living will. The patient has noticed having problems with memory than others. Other provi ders contributing to the patient's care are furniture assembly supervisor and other:.Encounter Diagnosis: Annual Medicare Physical (V70.0), [...] following preventative measures: PSA testing (done at [place] gets it 2 times a year) and colonoscopy. The pa tient does have durable power of trial attorney and living will. The patient has noticed nothing from the geriatic depression scale. Other providers contributing to the patient's care are furniture assembly supervisor (Dr. Gaines).Encounter Diagnosis: Unspecified Diagnosis, Annual Medicare [...] Diagnosis: Cough (786.2) [facility] Payers MedicareAAJUAN/Fredrick rosa guarantor
== END ==
PROVIDERS: Family Provider Internal Medicine; PCP Internal Medicine; Referring Provider Internal Medicine; Visit Provider Internal Medicine
DX: I25.10 Atherosclerotic heart disease of native coronary artery without angina pectoris (principal)
CPT/HCPCS: 78452; 93017; A9500; A4216; J2785

== ENCOUNTER → 2018-07-22 08:56 | Outpatient (CLI) | payer MEDICARE, OTHER, SELFPAY ==
[2018-01-06 15:12] VITALS: BMI 25.0
[2018-07-22 10:19] LABS: AST(SGOT) 20 U/L (15-37); Alanine Aminotransfer ALT/SGPT 36 U/L (16-61); Alkaline Phosphatase 89 U/L (45-117); Bilirubin, Direct 0.16 mg/dL (0.00-0.30); Cholesterol 130 mg/dL (200); Globulin 3.4 g/dL (2.2-4.2); High Density Lipoprotein 63 mg/dL; Protein, Total 7.4 g/dL (6.4-8.2); Triglycerides 65 mg/dL; Very Low Density Lipoprotein 13 mg/dL (5-40)
== END ==
PROVIDERS: Family Provider Internal Medicine; PCP Internal Medicine; Referring Provider Nurse Practitioner Family; Visit Provider Nurse Practitioner Family
DX: E78.5 Hyperlipidemia, unspecified (principal)
CPT/HCPCS: 36415; 80061; 80076

== ENCOUNTER → 2018-08-09 09:53 | Outpatient (CLI) | payer MEDICARE, OTHER, SELFPAY ==
[2018-08-01 13:28] VITALS: BMI 25.5
--- NOTE | 2018-08-09 09:56 | ART_ITS ---
Reason For Study: Claudication Procedure A bilateral lower extremity continuous wave Doppler with analog waveform analysis,segmental pressures,and ankle brachial indexes with exercise. Left Segmental Pressures Left brachial= 155mmHg. Left thigh = 158mmHg. Left calf = 155mmHg. Left posterior tibial artery = 142mmHg. Left dorsalis pedis artery = 147mmHg. The left dorsalis pedis waveforms are triphasic. The left posterior tibial artery waveforms are triphasic. Right Segmental Pressures Right brachial= 149mmHg. Right posterior tibial artery = 169mmHg. Right dorsalis pedis artery = 171mmHg. The right dorsalis pedis waveforms are triphasic. The right posterior tibial artery waveforms are triphasic. Indices The right ankle brachial index by the dorsalis pedis is 1.10. The right ankle brachial index by the posterior tibial artery is 1.09. The right post exercise ankle brachial index is 0.79. The left ankle brachial index by the dorsalis pedis is 0.95. The left ankle brachial index by the posterior tibial artery is 0.92. The left post exercise ankle brachial index is 0.59. Interpretation Summary 1. Bilateral legs with normal katlyn at rest at 1.1/0.95 2. Post exercise wiht moderate drop suggesting occlussive disease with post katlyn 0.79/0.59. Ordering Physician: Mau Palencia Referring Physician: Angela Murphy M.D. Performed By: Lisa Markham RVT and Student
== END ==
PROVIDERS: Family Provider Internal Medicine; PCP Internal Medicine; Referring Provider Internal Medicine Cardiovascular Disease; Visit Provider Internal Medicine Cardiovascular Disease
DX: I73.9 Peripheral vascular disease, unspecified (principal)
CPT/HCPCS: 93924

== ENCOUNTER → 2018-08-23 12:59 | Outpatient (CLI) | payer MEDICARE, OTHER, SELFPAY ==
[2018-08-01 13:28] VITALS: BMI 25.5
[2018-08-23 14:05] LABS: Creatinine, Serum 0.98 mg/dL (0.70-1.30); EST Glomerular Filtration Rate 80 mL/min (>60); Est Glom Filt Rate - Afr Amer 97 mL/min (>60)
== END ==
PROVIDERS: Family Provider Internal Medicine; PCP Internal Medicine; Referring Provider Surgery Vascular Surgery; Visit Provider Surgery Vascular Surgery
DX: I70.212 Atherosclerosis of native arteries of extremities with intermittent claudication, left leg (principal)
CPT/HCPCS: 36415; 82565

== ENCOUNTER → 2018-09-02 08:18 | Outpatient (CLI) | payer MEDICARE, OTHER, SELFPAY ==
[2018-08-01 13:28] VITALS: BMI 25.5
--- NOTE | 2018-09-02 08:19 | CT_ITS ---
STUDY: CTA OF THE ABDOMINAL AORTA AND BILATERAL LOWER EXTREMITIES REASON FOR EXAM: Male, 72 years old. Atherosclerosis. RADIATION DOSAGE (If Supplied By Facility): CTDIvol = ( 8.27 ) mGy, DLP = ( 1241.55 ) mGycm TECHNIQUE: Axial CT angiography multi-detector data acquisition was obtained from the to the following intravenous administration of Isovue 370 100ml IV. Axial images and MIP images were reconstructed from the axial data set. Post-processing of the angiographic images was performed, with multiplanar reformation and 3D reconstruction. Individualized dose optimization techniques were used for this CT. TECHNICAL QUALITY: Good COMPARISON: 04/30/2015. Descriptors of Narrowing: None (0%) Mild (< 50%) Moderate (50-70%) Severe (70-90%) Subtotal/Total Occlusion (90-100%) Non-Evaluable (technically non-diagnostic FINDINGS: There is diffuse fatty infiltration of the liver. No focal lesion is seen. The spleen, pancreas, adrenal glands, and right kidney are unremarkable. There is a 2.1 cm low-attenuation lesion in the left kidney. CT density measures 30 Hounsfield units. This is not consistent with a simple cyst and may represent a complex cyst or solid lesion. There is no significant change compared to the prior study. Gallbladder is unremarkable. Abdominal aorta: Mild atherosclerotic calcification, without demonstrated narrowing. Celiac and superior mesenteric arteries: No demonstrated narrowing. Inferior mesenteric artery: No demonstrated narrowing. Right renal artery(arteries): No demonstrated narrowing. Left renal artery(arteries): No demonstrated narrowing. Right common iliac artery: No demonstrated narrowing. Right external iliac artery: No demonstrated narrowing. Right internal iliac artery: No demonstrated narrowing. Left common iliac artery: Occluded. Left external iliac artery: Occluded. Left internal iliac artery: There is proximal occlusion with partial reconstitution. Femoral-femoral graft is patent. RIGHT LOWER EXTREMITY Right common femoral artery: No demonstrated narrowing. Right profundus femoris: No demonstrated narrowing. Right superficial femoral: No demonstrated narrowing. Right popliteal artery: No demonstrated narrowing. Right tibioperoneal trunk: No demonstrated narrowing. Right anterior tibial artery: No demonstrated narrowing. Right posterior tibial artery: No demonstrated narrowing. Right peroneal artery: No demonstrated narrowing. LEFT LOWER EXTREMITY Left common femoral artery: There is reconstitution of the distal common femoral artery through the femoral graft. Left profundus femoris: No demonstrated narrowing. Left superficial femoral: No demonstrated narrowing. Left popliteal artery: No demonstrated narrowing. Left tibioperoneal trunk: No demonstrated narrowing. Left anterior tibial artery: No demonstrated narrowing. Left posterior tibial artery: No demonstrated narrowing. Left peroneal artery: No demonstrated narrowing. There is no osseous abnormality. There is a 1.3 x 1.3 cm cystic lesion associated with the tibialis posterior and flexor digitorum muscles. This may represent a ganglion cyst, but is not adequately characterized on the current study. No significant change from the prior study. CT/CTA Abd w/Runoff W/WO Contrast IMPRESSION: 1. Known left common and external iliac occlusion with patent femoral-femoral graft. Vascular structures are otherwise patent. 2. A stable 2.1 cm left renal hypodensity consistent with complex cyst or solid lesion. 3. Stable cystic lesion in the left posteromedial ankle. Electronically Signed: Barbi Conrad MD at 19:58 EDT Tel , Service support ,
== END ==
PROVIDERS: Family Provider Internal Medicine; PCP Internal Medicine; Referring Provider Surgery Vascular Surgery; Visit Provider Surgery Vascular Surgery
DX: I70.212 Atherosclerosis of native arteries of extremities with intermittent claudication, left leg (principal)
CPT/HCPCS: 75635; Q9967

== ENCOUNTER → 2019-02-28 08:34 | Outpatient (CLI) | payer MEDICARE, OTHER, SELFPAY ==
[2018-08-01 13:28] VITALS: BMI 25.5
[2019-02-28 09:41] LABS: AST(SGOT) 28 U/L (15-37); Alanine Aminotransfer ALT/SGPT 38 U/L (16-61); Albumin, Serum 3.9 g/dL (3.2-5.0); Alkaline Phosphatase 93 U/L (45-117); Bilirubin, Direct 0.11 mg/dL (0.00-0.30); Cholesterol 129 mg/dL (200); Globulin 3.5 g/dL (2.2-4.2); High Density Lipoprotein 51 mg/dL; Protein, Total 7.4 g/dL (6.4-8.2); Triglycerides 171 mg/dL; Very Low Density Lipoprotein 34 mg/dL (5-40)
== END ==
PROVIDERS: Family Provider Internal Medicine; PCP Internal Medicine; Referring Provider Nurse Practitioner Family; Visit Provider Nurse Practitioner Family
DX: E78.5 Hyperlipidemia, unspecified (principal)
CPT/HCPCS: 36415; 80061; 80076

== ENCOUNTER → 2019-04-03 08:41 | Outpatient (CLI) | payer MEDICARE, OTHER, SELFPAY ==
[2019-03-13 13:03] VITALS: BMI 25.7
--- NOTE | 2019-04-03 08:44 | ART_ITS ---
Reason For Study: Atherosclerosis Procedure A bilateral lower extremity continuous wave Doppler with analog waveform analysis and ankle brachial indexes. Left Segmental Pressures Left brachial= 159mmHg. Left posterior tibial artery = 160mmHg. Left dorsalis pedis artery = 159mmHg. The left dorsalis pedis waveforms are triphasic. The left posterior tibial artery waveforms are triphasic. Right Segmental Pressures Right brachial= 162mmHg. Right posterior tibial artery = 180mmHg. Right dorsalis pedis artery = 173mmHg. The right dorsalis pedis waveforms are triphasic. The right posterior tibial artery waveforms are triphasic. Indices The right ankle brachial index by the dorsalis pedis is 1.07. The right ankle brachial index by the posterior tibial artery is 1.11. The left ankle brachial index by the dorsalis pedis is 0.98. The left ankle brachial index by the posterior tibial artery is 0.99. Interpretation Summary Resting ankle-brachial indices appear bilaterally normal. Ordering Physician: Nando Chávez Referring Physician: Angela Murphy M.D. Performed By: Connie Ravi RVT
--- NOTE | 2019-04-03 08:44 | AAVD_ITS ---
Reason For Study: Atherosclerosis Aorta Measurements Aorta Doppler Measurements Proximal aorta measures1.52 x 1.54cm. in cross- Peak systolic flow velocities within the proximal sectional axis. aorta measure 76.9 cm/sec. Proximal aorta measures1.49cm. in longitudinal Peak systolic flow velocities within the mid aorta axis. measure 52.3 cm/sec. Mid aorta measures1.56 x 1.56cm. in cross- Peak systolic flow velocities within the distal sectional axis. aorta measure 79.3 cm/sec. Mid aorta measures1.53cm. in longitudinal axis. Distal aorta measures1.27 x 1.29cm. in cross- sectional axis. Distal aorta measures1.30cm. in longitudinal axis. Left Iliac Artery Left iliac artery measures 0.56 x 0.56 cm. in the cross-sectional axis. Left iliac artery measures 0.58 cm. in the longitudinal axis. Lt iliac artery is occluded. Lt bypass graft, prox, 201.1 cm/sec. Lt bypass graft, mid, 151.8 cm/sec. Right Iliac Artery Right iliac artery measures 0.87 x 0.91 cm. in the cross-sectional axis. Right iliac artery measures 0.89 cm. in the longitudinal axis. Peak systolic velocity in the right iliac artery measures 273.1 cm/sec. Procedure Aorta IVC Iliac vasculature or bypass grafts [id number]. Exam performed in department. Interpretation Summary 1. Right iliac moderate stenosis. 2. Left iliac occluded. 3. Bypass graft patent. Ordering Physician: Nando Chávez Referring Physician: Angela Murphy M.D. Performed By: Connie Ravi RVT
== END ==
PROVIDERS: Family Provider Internal Medicine; PCP Internal Medicine; Referring Provider Surgery Vascular Surgery; Visit Provider Surgery Vascular Surgery
DX: I70.213 Atherosclerosis of native arteries of extremities with intermittent claudication, bilateral legs (principal); I70.0 Atherosclerosis of aorta
CPT/HCPCS: 93922; 93978

== ENCOUNTER 2019-04-19 06:31 | Day surgery (SDC) | payer MEDICARE, OTHER, SELFPAY ==
[2019-03-13 13:03] VITALS: BMI 25.7
[2019-04-19 06:44] LABS: Hematocrit 45.8 % (40-54); Mean Corp Hgb Conc 32.8 g/dL (32-36); Mean Corpuscular Hgb 30.1 pg (27.0-32.0); Mean Platelet Vol. 9.3 fl (6.2-12.0); Platelet Count 224 K/mm3 (150-450); RBC Distribution Width CV 13.4 % (11.6-14.6); RBC Distribution Width SD 45.2 fl (35.1-43.9); Red Blood Count 4.98 M/mm3 (4.6-6.2); White Blood Count 8.1 K/mm3 (4.4-11.0)
[2019-04-19 07:01] LABS: Albumin, Serum 3.9 g/dL (3.2-5.0); BUN 19 mg/dL (7-18); BUN/Creat Ratio 19.2 RATIO (10-20); Chloride 108 mmol/L (98-107); Creatinine, Serum 0.99 mg/dL (0.70-1.30); EST Glomerular Filtration Rate 79 mL/min (>60); Est Glom Filt Rate - Afr Amer 96 mL/min (>60); Glucose 109 mg/dL (74-106); Phosphorus 4.1 mg/dL (2.5-4.9); Potassium 4.1 mmol/L (3.5-5.1); Sodium Level 142 mmol/L (136-145)
[2019-04-19 07:02] VITALS: BMI 25.7
--- NOTE | 2019-04-19 08:29 | PCM.OPRPT ---
Problem List (1) Peripheral arterial disease Status: Chronic (2) S/P femoral-femoral bypass surgery Status: Chronic Comment: Right to left fem-fem bypass ? year and facitily; f/u angiography of aorta 01/15/2014 @ [facility] Report of Operation Date of Procedure: 04/19/19 Pre-Operative Diagnosis: Peripheral arterial disease Post-Operative Diagnosis: The same Surgery/Procedure Performed:: 1. Ultrasound-guided access retrograde left brachial artery. 2. Aortogram with bilateral iliofemoral angiogram in different views. Type of Anesthesia:: Sedation,Conscious Description of Procedure: Patient brought to the [facility] [employer] [facility]. Underwent the appropriate timeout consent. Prepped and draped in a sterile fashion. We did ultrasound-guided access retrograde left brachial artery. Put a Glidewire and and then a 5 Vietnamese sheath. We gave 3000 units of heparin. We got the wire down the descending thoracic aorta and brought in a Kumpe catheter. From the distal aorta we did an aortogram with bilateral iliofemoral angiogram. It showed the aorta through the right common iliac and external iliac, and internal iliac are widely patent. The right common femoral artery profunda proximal SFA were also widely patent. It appeared the femorofemoral bypass was also widely patent with no significant stenosis at either anastomosis. There was filling into the left common femoral profunda and SFA that also appeared widely patent. There was a lumbar and a circumflex vessel off of the profunda that was filling the collaterals to the internal iliac artery on the left. There was adequate flow through this but with some delayed imaging. There is some increase collaterals noted into the area of the pelvis on the left as well. We checked this in [place] and [place] and still showed no stenosis throughout. We then gave 20 protamine removed out the wire sheath held pressure with good hemostasis he was brought to recovery in stable condition. Sedation: This 73-year-old gentleman underwent moderate sedation given by Dr. Nando Chávez. He was moderate EKG blood pressure and pulse ox for over the 30 minutes of the procedure. See the EMR for complete record
== END 2019-04-19 11:55 | disposition home or self-care (01) ==
LOC: CLSP 06:32
PROVIDERS: Family Provider Internal Medicine; PCP Internal Medicine; Referring Provider Surgery Vascular Surgery; Visit Provider Surgery Vascular Surgery
DX: I70.213 Atherosclerosis of native arteries of extremities with intermittent claudication, bilateral legs (principal); I77.1 Stricture of artery; I11.9 Hypertensive heart disease without heart failure; I25.2 Old myocardial infarction; E78.00 Pure hypercholesterolemia, unspecified; Z95.5 Presence of coronary angioplasty implant and graft; Z79.82 Long term (current) use of aspirin; Z79.02 Long term (current) use of antithrombotics/antiplatelets; Z79.899 Other long term (current) drug therapy; Z87.891 Personal history of nicotine dependence
CPT/HCPCS: 36200; 36415; 75625; 76937; 80069; 85027; 99152; 99153; J7040; Q9967; C1769

== ENCOUNTER → 2020-02-24 09:02 | Outpatient (CLI) | payer MEDICARE, OTHER, SELFPAY ==
[2020-02-24 11:06] LABS: AST(SGOT) 26 U/L (15-37); Alanine Aminotransfer ALT/SGPT 37 U/L (16-61); Albumin, Serum 3.9 g/dL (3.2-5.0); Alkaline Phosphatase 92 U/L (45-117); Bilirubin, Direct 0.17 mg/dL (0.00-0.30); Cholesterol 127 mg/dL (200); Globulin 3.3 g/dL (2.2-4.2); High Density Lipoprotein 47 mg/dL; Protein, Total 7.2 g/dL (6.4-8.2); Triglycerides 123 mg/dL; Very Low Density Lipoprotein 25 mg/dL (5-40)
== END ==
PROVIDERS: PCP Internal Medicine; Referring Provider Nurse Practitioner Family; Visit Provider Nurse Practitioner Family
DX: E78.5 Hyperlipidemia, unspecified (principal); I25.111 Atherosclerotic heart disease of native coronary artery with angina pectoris with documented spasm
CPT/HCPCS: 36415; 80061; 80076

== ENCOUNTER → 2020-05-02 08:44 | Outpatient (CLI) | payer MEDICARE, OTHER, SELFPAY ==
[2020-04-04 09:33] VITALS: BMI 25.4
--- NOTE | 2020-05-02 08:47 | ART_ITS ---
Reason For Study: Atherosclerosis Procedure A bilateral lower extremity continuous wave Doppler with analog waveform analysis and ankle brachial indexes. Left Segmental Pressures Left brachial= 164mmHg. Left posterior tibial artery = 160mmHg. Left dorsalis pedis artery = 158mmHg. The left dorsalis pedis waveforms are triphasic. The left posterior tibial artery waveforms are triphasic. Right Segmental Pressures Right brachial= 157mmHg. Right posterior tibial artery = 163mmHg. Right dorsalis pedis artery = 165mmHg. The right dorsalis pedis waveforms are triphasic. The right posterior tibial artery waveforms are triphasic. Indices The right ankle brachial index by the dorsalis pedis is 1.01. The right ankle brachial index by the posterior tibial artery is 0.99. The left ankle brachial index by the dorsalis pedis is 0.96. The left ankle brachial index by the posterior tibial artery is 0.98. Interpretation Summary Bilateral normal at rest with triphasic flow and CLARISSA 1.01 and 0.98. Ordering Physician: Nando Chávez Referring Physician: Angela Murphy M.D. Performed By: Connie Ravi RVT and Student
--- NOTE | 2020-05-02 08:47 | AAVD_ITS ---
Reason For Study: Atherosclerosis Aorta Measurements Aorta Doppler Measurements Proximal aorta measures2.10 x 2.12cm. in cross- Peak systolic flow velocities within the proximal sectional axis. aorta measure 76 cm/sec. Proximal aorta measures2.2cm. in longitudinal Peak systolic flow velocities within the mid aorta axis. measure 67.9 cm/sec. Mid aorta measures1.61 x 1.69cm. in cross- Peak systolic flow velocities within the distal sectional axis. aorta measure 73.4 cm/sec. Mid aorta measures1.67cm. in longitudinal axis. Distal aorta measures1.63 x 1.87cm. in cross- sectional axis. Distal aorta measures1.69cm. in longitudinal axis. Left Iliac Artery Left iliac artery measures 0.68 x 0.74 cm. in the cross-sectional axis. Left iliac artery measures 0.75 cm. in the longitudinal axis. Lt MATT is occluded. Right Iliac Artery Right iliac artery measures 0.88 x 0.83 cm. in the cross-sectional axis. Right iliac artery measures 0.91 cm. in the longitudinal axis. Peak systolic velocity in the right iliac artery measures 136.5 cm/sec. Procedure Aorta IVC Iliac vasculature or bypass grafts [id number]. Left iliac bypass graft visualized in 04/03/2019, appears to be a branch coming off the distal aorta. Pt only has one bypass which is a Rt fem to Lt fem. Exam performed in department. Interpretation Summary Aorta and right iliac patent and norml flow. Known left common iliac occlussion. Ordering Physician: Nando Chávez Referring Physician: Angela Murphy M.D. Performed By: Connie Ravi RVT and Student
--- NOTE | 2020-05-02 08:47 | ADU_ITS ---
Reason For Study: Atherosclerosis Right Velocities Left Velocities Ext. Iliac Artery, dist = 211.1 cm./sec. No flow noted in distal EIA. Common Femoral Artery, mid = 187.7 cm./sec. Common Iliac Artery, mid = 70.0 cm./sec. Supf Femoral Artery, prox = 130.9 cm./sec. Supf. Femoral Artery, prox = 118.5 cm./sec. Supf Femoral Artery, mid = 92.4 cm./sec. Supf. Femoral Artery, mid = 83.8 cm./sec. Supf Femoral Artery, dist. = 110.6 cm./sec. Supf. Femoral Artery, dist = 78.3 cm./sec. Profunda Femoral Artery = 154.3 cm./sec. Profunda Femoral Artery = 50.5 cm./sec. Popliteal Artery, mid = 57.5 cm./sec. Popliteal Artery, mid = 37.2 cm./sec. Post. Tibial Artery, prox = 84.6 cm./sec. Post. Tibial Artery, prox = 38.6 cm./sec. Post. Tibial Artery, mid = 71.1 cm./sec. Post Tibial Artery, mid = 26.5 cm./sec. Post. Tibial Artery, dist = 44.1 cm./sec. Post Tibial Artery, dist. = 43.8 cm./sec. Peroneal Artery, prox = 51.4 cm./sec. Peroneal Artery, prox = 37.7 cm./sec. Peroneal Artery, mid = 61.0 cm./sec. Peroneal Artery, mid = 35.1 cm./sec. Peroneal Artery,dist = 26.7 cm./sec. Peroneal Artery,dist. = 26.3 cm./sec. Ant. Tibial Artery, prox = 58.5 cm./sec. Ant.Tibial Artery, prox = 63.8 cm./sec. Ant. Tibial Artery, mid = 59.4 cm./sec. Ant Tibial Artery, mid = 48.1 cm./sec. Ant. Tibial Artery, dist = 50.9 cm./sec. Ant. Tibial Artery, distal = 57.8 cm./sec. Right fem to left fem Bypass Prox Anast 339.7 cm/s Prox Graft 208.8 cm/s Mid Graft 166.8 cm/s Dist Graft 157.0 cm/s Dist Anast 182.8 cm/s. Procedure Exam performed in department. Interpretation Summary Bilateral legs with no stenosis and tripasic flow. Elevated psv at right proximal anastamosis and may need further evaluation. Ordering Physician: Nando Chávez Referring Physician: Angela Murphy M.D. Performed By: Connie Ravi RVT and Student
== END ==
PROVIDERS: PCP Internal Medicine; Referring Provider Surgery Vascular Surgery; Visit Provider Surgery Vascular Surgery
DX: Z48.812 Encounter for surgical aftercare following surgery on the circulatory system (principal); I74.09 Other arterial embolism and thrombosis of abdominal aorta; I70.213 Atherosclerosis of native arteries of extremities with intermittent claudication, bilateral legs
CPT/HCPCS: 93922; 93925; 93978

== ENCOUNTER 2020-06-18 10:13 | Day surgery (SDC) | payer MEDICARE, OTHER, SELFPAY ==
[2020-04-04 09:33] VITALS: BMI 25.4
[2020-06-17 12:09] VITALS: BMI 24.7
[2020-06-18 10:32] LABS: Hematocrit 47.9 % (40-54); Hemoglobin 15.6 g/dL (13.0-16.5); Mean Corp Hgb Conc 32.6 g/dL (32-36); Mean Corpuscular Hgb 29.7 pg (27.0-32.0); Mean Corpuscular Volume 91.1 fL (80-94); Mean Platelet Vol. 9.3 fl (6.2-12.0); Platelet Count 238 K/mm3 (150-450); RBC Distribution Width CV 13.2 % (11.6-14.6); Red Blood Count 5.26 M/mm3 (4.6-6.2); White Blood Count 8.5 K/mm3 (4.4-11.0)
[2020-06-18 10:46] LABS: BUN 20 mg/dL (7-18); BUN/Creat Ratio 19.6 RATIO (10-20); Chloride 110 mmol/L (98-107); Creatinine, Serum 1.02 mg/dL (0.70-1.30); EST Glomerular Filtration Rate 76 mL/min (>60); Est Glom Filt Rate - Afr Amer 92 mL/min (>60); Glucose 114 mg/dL (74-106); Phosphorus 3.3 mg/dL (2.5-4.9); Potassium 4.3 mmol/L (3.5-5.1); Sodium Level 140 mmol/L (136-145)
--- NOTE | 2020-06-18 13:15 | OP.PCM_ITS ---
Problem List (1) Peripheral arterial disease Status: Chronic (2) S/P femoral-femoral bypass surgery Status: Chronic Comment: Right to left fem-fem bypass ? year and facitily; f/u angiography of aorta 01/15/2014 @ [facility] Report of Operation Date of Procedure: 06/18/20 Pre-Operative Diagnosis: PAD with claudication and stenosis bypass graft Post-Operative Diagnosis: The same Surgery/Procedure Performed:: 1. Ultrasound-guided access retrograde left brachial artery. 2. Aortogram with right iliofemoral angiogram. 3. Balloon angioplasty from the right common femoral through the anastomosis of the right to left femoral bypass graft with a 6 mm balloon. Type of Anesthesia:: Sedation,Conscious Description of Procedure: Patient brought to the operating room. Underwent appropriate timeout consent. Underwent sedation. Was prepped and draped in a sterile fashion. We did ultrasound-guided access retrograde in the left brachial artery. Put a Glidewire up and then a 5 [place] sheath. We gave 5000 units of heparin. We then got the wire down the descending thoracic aorta into the right iliac artery. Switch to a stiff Glidewire. Brought in a long 5 [place] sheath. We then did an angiogram from there shown iliac artery widely patent. Good flow through the common femoral artery, the proximal femoral and profunda artery. Bypass graft had flow through this filling the left common femoral artery, profunda, femoral artery. Moderate stenosis at the proximal anastomosis corresponding with the ultrasound. We got a wire up through here switch to a stiff Glidewire and then ballooned this area the anastomosis with a 6 x 80 [employer] for over 3 minutes. Completion was improved there did appear to be better flow through this area. We removed out the sheath put a shorter sheath and then gave 40 of protamine. He is brought to recovery with the sheath will be pulled. Sedation: This 74-year-old gentleman underwent moderate sedation given by Dr. Nando Chávez. He was monitored with EKG blood pressure and pulse ox for over the 30 minutes of the procedure. See the EMR for the complete record.
== END 2020-06-18 16:30 | disposition home or self-care (01) ==
LOC: CLSP 10:16
PROVIDERS: PCP Internal Medicine; Referring Provider Surgery Vascular Surgery; Visit Provider Surgery Vascular Surgery
DX: T82.858A Stenosis of other vascular prosthetic devices, implants and grafts, initial encounter (principal); I70.212 Atherosclerosis of native arteries of extremities with intermittent claudication, left leg; I74.09 Other arterial embolism and thrombosis of abdominal aorta; I51.9 Heart disease, unspecified; I25.2 Old myocardial infarction; E78.00 Pure hypercholesterolemia, unspecified; Z87.891 Personal history of nicotine dependence
CPT/HCPCS: 36245; 36415; 37224; 75710; 76937; 80069; 85027; 93005; 99152; 99153; Q9967; C1725; C1769; C1887; C1894

== ENCOUNTER → 2020-09-19 08:38 | Outpatient (CLI) | payer MEDICARE, OTHER, SELFPAY ==
[2020-06-17 12:09] VITALS: BMI 24.7
[2020-09-19 10:48] LABS: AST(SGOT) 51 U/L (15-37); Alanine Aminotransfer ALT/SGPT 44 U/L (16-61); Albumin, Serum 3.9 g/dL (3.2-5.0); Alkaline Phosphatase 91 U/L (45-117); Bilirubin, Direct 0.18 mg/dL (0.00-0.30); Cholesterol 121 mg/dL (200); Globulin 3.6 g/dL (2.2-4.2); High Density Lipoprotein 54 mg/dL; Protein, Total 7.5 g/dL (6.4-8.2); Triglycerides 68 mg/dL; Very Low Density Lipoprotein 14 mg/dL (5-40)
== END ==
PROVIDERS: PCP Internal Medicine; Referring Provider Nurse Practitioner Family; Visit Provider Nurse Practitioner Family
DX: E78.00 Pure hypercholesterolemia, unspecified (principal); E78.5 Hyperlipidemia, unspecified
CPT/HCPCS: 36415; 80061; 80076

== ENCOUNTER 2021-07-11 08:30 | Outpatient (CLI) | payer MEDICARE, OTHER, SELFPAY ==
--- NOTE | 2021-07-11 08:35 | CDU_ITS ---
Reason For Study: BILATERAL CAROTID BRUITS Rt. Velocities/BP Lt. Velocities/BP Prox CCA 89.5/9.9 cm/sec. Prox CCA 127.7/12.6 cm/sec. Mid CCA 101.2/15.1 cm/sec. Mid CCA 100.3/10.8 cm/sec. Dist CCA 80.3/13.8 cm/sec. Dist CCA 93.0/14.4 cm/sec. Prox ICA 76.0/13.4 cm/sec. Prox ICA 140.5/21.7 cm/sec. Mid ICA 71.1/12.2 cm/sec. Mid ICA 140.5/30.9 cm/sec. Dist ICA 48.2/10.9 cm/sec. Dist ICA 114.9/23.6 cm/sec. Rt. ICA/CCA = 76.0/101.2=0.8. Lt. ICA/CCA = 140.5/100.3=1.4. Prox ECA 320.0/37.7 cm/sec. Prox ECA 138.6/9.0 cm/sec. Rt. Vert. 79.0/15.3 cm/sec. Lt. Vert. 50.3/0.0 cm/sec. Right Extracranial There is intimal thickening but no significant atherosclerotic plaque noted in the right common carotid artery. There is intimal thickening but no significant atherosclerotic plaque noted in the right internal carotid artery. There is heterogeneous, irregular atherosclerotic plaque noted in the right external carotid artery. Antegrade flow is noted in the right vertebral artery. Left Extracranial There is homogeneous, smooth atherosclerotic plaque noted in the left common carotid artery. There is heterogeneous, irregular atherosclerotic plaque noted in the left internal carotid artery. There is heterogeneous, irregular atherosclerotic plaque noted in the left external carotid artery. Antegrade flow is noted in the left vertebral artery. There is heterogeneous, irregular atherosclerotic plaque noted in the left bulb. Procedure Carotid Duplex 97723. This is a Carotid Duplex examination using B-mode, color flow and specral Doppler. Exam performed in department. VL/Carotid Duplex Ultrasound Interpretation Summary Mild (<50%) stenosis right extracranial internal carotid. Moderate (50-69%) sam nosis left extracranial internal carotid. Ordering Physician: Angela Murphy Referring Physician: Perez Smith; Angela Murphy Performed By: Regi Hills, RACHEL, RVT
== END 2021-07-11 23:59 | disposition short-term general hospital (02) ==
LOC: CVS 08:32
PROVIDERS: PCP Internal Medicine; Visit Provider Internal Medicine
DX: R09.89 Other specified symptoms and signs involving the circulatory and respiratory systems (principal)
CPT/HCPCS: 93880

== ENCOUNTER 2021-09-09 08:43 | Outpatient (CLI) | payer MEDICARE, OTHER, SELFPAY ==
--- NOTE | 2021-09-09 08:48 | ART_ITS ---
Reason For Study: Atherosclerosis Procedure A bilateral lower extremity continuous wave Doppler with analog waveform analysis and ankle brachial indexes. Left Segmental Pressures Left brachial= 154mmHg. Left posterior tibial artery = 130mmHg. Left dorsalis pedis artery = 140mmHg. Left digit = 108 mmHg. The left dorsalis pedis waveforms are triphasic. The left posterior tibial artery waveforms are triphasic. Right Segmental Pressures Right brachial= 147mmHg. Right posterior tibial artery = 160mmHg. Right dorsalis pedis artery = 157mmHg. Right digit = 119 mmHg. The right dorsalis pedis waveforms are triphasic. The right posterior tibial artery waveforms are triphasic. Indices The right ankle brachial index by the dorsalis pedis is 1.02. The right ankle brachial index by the posterior tibial artery is 1.04. The right digital-brachial index is 0.77. The left ankle brachial index by the dorsalis pedis is 0.91. The left ankle brachial index by the posterior tibial artery is 0.84. The left digital-brachial index is 0.70. VL/Ankle Brachial Index Interpretation Summary Bilateral lower extremities with no evidence of significant occlusive disease a t rest. CLARISSA 1.04 and 0.91. Bilateral triphasic flow noted. Ordering Physician: Nando Chávez Referring Physician: Angela Murphy M.D. Performed By: Connie Ravi RVT
--- NOTE | 2021-09-09 08:48 | ADUL_ITS ---
Reason For Study: Atherosclerosis Right Velocities Left Velocities Ext. Iliac Artery, dist = 202.3 cm./sec. Ext. Iliac Artery, dist, Known occlusion. Common Femoral Artery, mid = 206.3 cm./sec. Common Femoral Artery, mid = 194.9 cm./sec. Right to Left fem/fem bypass noted. Prox anastomosis, 566.6 cm/sec. Prox graft, 220.7 cm/sec. Mid graft, 140.7 cm/sec. Distal graft, 169.2 cm/sec. Distal anastomosis, 217.5 cm/sec. Procedure Exam performed in department. /US Art Duplex Unilat Lower Ext Interpretation Summary Right to left femorofemoral bypass graft is patent. Severe stenosis at the prox imal anastomosis. Ordering Physician: Nando Chávez Referring Physician: Angela Murphy M.D. Performed By: Connie Ravi RVT
--- NOTE | 2021-09-09 08:48 | AAVD_ITS ---
Reason For Study: Aortoiliac occlusive disease Aorta Measurements Aorta Doppler Measurements Proximal aorta measures1.85 x 1.94cm. in cross- Peak systolic flow velocities within the proximal sectional axis. aorta measure 96.1 cm/sec. Proximal aorta measures1.93cm. in longitudinal Peak systolic flow velocities within the mid aorta axis. measure 59.5 cm/sec. Mid aorta measures1.47 x 1.50cm. in cross- Peak systolic flow velocities within the distal sectional axis. aorta measure 83.3 cm/sec. Mid aorta measures1.46cm. in longitudinal axis. Distal aorta measures1.37 x 1.37cm. in cross- sectional axis. Distal aorta measures1.36cm. in longitudinal axis. Left Iliac Artery Left iliac artery measures 0.66 x 0.68 cm. in the cross-sectional axis. Left iliac artery measures 0.66 cm. in the longitudinal axis. Lt MATT is a known occlusion. Right Iliac Artery Right iliac artery measures 0.83 x 0.84 cm. in the cross-sectional axis. Right iliac artery measures 0.81 cm. in the longitudinal axis. Peak systolic velocity in the right iliac artery measures 241.7 cm/sec. Procedure Aorta IVC Iliac vasculature or bypass grafts [id number]. Exam performed in department. VL/Abd Aortic/IVC Duplex scan Interpretation Summary Right common iliac with moderate stenosis noted. 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 No aneurysm noted. Ordering Physician: Nando Chávez Referring Physician: Angela Murphy M.D. Performed By: Connie Ravi RVT
== END 2021-09-09 23:59 | disposition home or self-care (01) ==
LOC: CVS 08:44
PROVIDERS: PCP Internal Medicine; Referring Provider Surgery Vascular Surgery; Visit Provider Surgery Vascular Surgery
DX: I74.09 Other arterial embolism and thrombosis of abdominal aorta (principal); I70.213 Atherosclerosis of native arteries of extremities with intermittent claudication, bilateral legs
CPT/HCPCS: 93922; 93926; 93978

== ENCOUNTER → 2021-10-09 | Outpatient (CLI) | payer MEDICARE, OTHER, SELFPAY ==
[2021-10-09 10:02] LABS: AST(SGOT) 34 U/L (15-37); Alanine Aminotransfer ALT/SGPT 39 U/L (16-61); Albumin, Serum 3.7 g/dL (3.2-5.0); Alkaline Phosphatase 77 U/L (45-117); Bilirubin, Direct 0.09 mg/dL (0.00-0.30); Cholesterol 118 mg/dL (200); Globulin 3.6 g/dL (2.2-4.2); High Density Lipoprotein 47 mg/dL; Protein, Total 7.3 g/dL (6.4-8.2); Triglycerides 88 mg/dL; Very Low Density Lipoprotein 18 mg/dL (5-40)
== END | disposition home or self-care (01) ==
LOC: LAB 08:42
PROVIDERS: Internal Medicine Cardiovascular Disease; PCP Internal Medicine; Referring Provider Nurse Practitioner Family; Visit Provider Nurse Practitioner Family
DX: E78.00 Pure hypercholesterolemia, unspecified (principal)
CPT/HCPCS: 36415; 80061; 80076

== ENCOUNTER → 2021-10-17 | Outpatient (CLI) | payer MEDICARE, OTHER, SELFPAY ==
[2021-10-17 09:40] LABS: Absolute Lymphocyte Count 1.91 X10^3/uL (0.83-4.51); Absolute Neutrophil Count 6.4 X10^3/uL (2.0-7.7); Basophil# 0.07 X10^3/uL; Basophil% 0.7 % (0-1); Eosinophil# 0.25 X10^3/uL; Eosinophils% 2.6 % (0-5); Hemoglobin 15.7 g/dL (13.0-16.5); Lymphocyte # 1.91 X10^3/ul (0.83-4.51); Lymphocyte % 20.2 % (19-41); Mean Corp Hgb Conc 32.7 g/dL (32-36); Mean Corpuscular Hgb 29.9 pg (27.0-32.0); Mean Corpuscular Volume 91.4 fL (80-94); Mean Platelet Vol. 9.6 fl (6.2-12.0); Monocyte# 0.82 X10^3/uL; Monocyte% 8.7 % (0-10); NRBC Flagged by Analyzer 0 % (0-5); Neutrophil # 6.38 X10^3/uL (2.7-7.7); Neutrophil % 67.4 % (47-70); Platelet Count 233 K/mm3 (150-450); RBC Distribution Width CV 13.2 % (11.6-14.6); RBC Distribution Width SD 45.1 fl (35.1-43.9); Red Blood Count 5.25 M/mm3 (4.6-6.2); White Blood Count 9.5 K/mm3 (4.4-11.0)
[2021-10-17 09:52] LABS: Anion Gap 4 (5-15); BUN 19 mg/dL (7-18); BUN/Creat Ratio 19.1 RATIO (10-20); Calcium,Total 9.1 mg/dL (8.5-10.1); Chloride 110 mmol/L (98-107); EST Glomerular Filtration Rate 78 mL/min (>60); Est Glom Filt Rate - Afr Amer 94 mL/min (>60); Glucose 123 mg/dL (74-106); Potassium 4.5 mmol/L (3.5-5.1); Sodium Level 138 mmol/L (136-145); T4 Free Direct 1.04 ng/dL (0.76-1.46)
== END | disposition home or self-care (01) ==
LOC: LAB 09:00
PROVIDERS: PCP Internal Medicine; Referring Provider Nurse Practitioner Gerontology; Visit Provider Nurse Practitioner Gerontology
DX: R53.83 Other fatigue (principal)
CPT/HCPCS: 36415; 80048; 84439; 85025

== ENCOUNTER → 2021-10-30 | Outpatient (CLI) | payer MEDICARE, OTHER, SELFPAY ==
--- NOTE | 2021-10-30 10:06 | STRESSREP_ITS ---
Stress Test Report Date: 10-30-2021 Procedure: Pharmacologic stress nuclear imaging study Indications: Fatigue; CAD; PCI; PAD Consent: Per the patient Procedure: The patient underwent pharmacologic (Regadenoson 0.4mg ) evaluation with a peak heart rate of 92 beats per minute (63%predicted maximal heart rate) and a peak blood pressure of 130/74 mmHg. The baseline ECG demonstrated normal sinus rhythm. The peak pharmacologic ECG demonstrated no obvious ECG changes. There was a rare PAC during infusion and an occasional PAC/PVC during recovery. There was no complaint of chest discomfort during pharmacologic infusion or recovery. The examination was discontinued secondary to completion of protocol. Impression: 1. Pharmacologic (Regadenoson) evaluation 2. Peak pharmacologic ECG with no obvious ECG changes. 3. There was a rare PAC during infusion and an occasional PAC/PVC during recovery. 4. Nuclear images pending Myocardial perfusion imaging study: Technique: The patient was injected with 11.9 millicuries of technetium 99m Cardiolite and subsequently rest SPECT Cardiolite nuclear imaging was obtained in the horizontal long, vertical long, and short axis views. The patient underwent pharmacologic (Regadenoson) evaluation with a peak heart rate of 92 beats per minute (63% percent predicted maximal heart rate) and a peak blood pressure of 130/74 mmHg. The patient was injected with 32.9 millicuries of technetium 99m Cardiolite and subsequently stress SPECT Cardiolite nuclear imaging was obtained in the horizontal long, vertical long, and short axis views. A gated Cardiolite study at peak stress was obtained. Interpretation: Rest and stress SPECT Cardiolite nuclear imaging status post realignment and normalization demonstrate at rest the appearance of a small area of subtle diminished tracer uptake in the mid inferior segments which appears to improve/normalize following stress. There is end systolic thickening and b rightening. The gated Cardiolite study demonstrates myocardial thickening and inward wall motion. The reported LVEF is 69%. Impression: 1. Rest and stress SPECT current nuclear imaging demonstrate myocardial perfusion changes compatible with shifting soft tissue attenuation/artifact which appears to be more prominent at rest as opposed to stress with no myocardial perfusion changes considered diagnostic for associated stress-induced myocardial ischemia. 2. The gated Cardiolite study reports an LVEF of 69%. This note was generated with [employer] software. It may contain incorrect words, spelling, and punctuation that were not noted in checking the note before signing.
== END | disposition home or self-care (01) ==
PROVIDERS: PCP Internal Medicine; Referring Provider Nurse Practitioner Gerontology; Visit Provider Nurse Practitioner Gerontology
DX: I25.111 Atherosclerotic heart disease of native coronary artery with angina pectoris with documented spasm (principal); R53.83 Other fatigue
CPT/HCPCS: 78452; 93017; A9500; A4216; J2785

== ENCOUNTER 2021-11-12 06:36 | Day surgery (SDC) | payer MEDICARE, OTHER, SELFPAY ==
[2021-11-11 09:59] VITALS: BMI 23.5
[2021-11-12 06:49] LABS: Hematocrit 45.1 % (40-54); Hemoglobin 14.9 g/dL (13.0-16.5); Mean Corpuscular Hgb 30.1 pg (27.0-32.0); Mean Corpuscular Volume 91.1 fL (80-94); Mean Platelet Vol. 9.2 fl (6.2-12.0); Platelet Count 225 K/mm3 (150-450); RBC Distribution Width CV 13.2 % (11.6-14.6); RBC Distribution Width SD 44.6 fl (35.1-43.9); Red Blood Count 4.95 M/mm3 (4.6-6.2); White Blood Count 8.9 K/mm3 (4.4-11.0)
[2021-11-12 07:09] LABS: Albumin, Serum 3.8 g/dL (3.2-5.0); BUN 20 mg/dL (7-18); Calcium,Total 8.7 mg/dL (8.5-10.1); Chloride 110 mmol/L (98-107); EST Glomerular Filtration Rate 78 mL/min (>60); Est Glom Filt Rate - Afr Amer 94 mL/min (>60); Glucose 124 mg/dL (74-106); Phosphorus 3.2 mg/dL (2.5-4.9); Potassium 4.4 mmol/L (3.5-5.1); Sodium Level 139 mmol/L (136-145)
--- NOTE | 2021-11-12 08:43 | PCM.OPRPT ---
Problems Associated Problem List Diagnoses (1) Peripheral arterial disease: Report of Operation Date of Procedure: 11/12/21 Pre-Operative Diagnosis: PAD with claudication Post-Operative Diagnosis: The same Surgery/Procedure Performed:: 1. Ultrasound-guided access retrograde left brachial artery. 2. Aortogram with right iliofemoral angiogram. 3. Balloon angioplasty of the right common femoral artery into the femorofemoral bypass graft with a 6 and 7 mm balloon. Surgeon: Nando Chávez Type of Anesthesia: IV Sedation Description of Procedure: Patient brought to the Communication And Outreach Manager. Underwent appropriate timeout consent. Underwent sedation. Was prepped and draped in a sterile fashion. We did ultrasound-guided access retrograde in the left brachial artery. Gave 5000 units of heparin. Got the wire down the descending thoracic aorta and switch to a long stiff Glidewire. Brought in a long 6 [place] sheath. Did an aortogram with right iliofemoral angiogram. And then in some oblique views. Could see some of the stenosis into the femorofemoral bypass graft. Part of it came back and a sharper reverse-angle which may be partly related to the elevated velocities. We got eventually able with different catheters got the wire into this. We ballooned first with a 6 x 80 balloon for over 2 minutes. And then with a 7 x 4 balloon for a minute and a half. It appeared to be slightly improved a little bit better flow through this area. We then removed out the sheath put a shorter sheath. Gave 35 of protamine. Held pressure with good hemostasis. Brought to recovery stable condition. Sedation: This 76-year-old gentleman underwent moderate sedation given by Dr. Nando Chávez. He was monitored EKG blood pressure and pulse ox for over the 30 minutes of the procedure. See the EMR for the complete record.
== END 2021-11-12 13:15 | disposition home or self-care (01) ==
LOC: CLSP 06:38
PROVIDERS: PCP Internal Medicine; Visit Provider Surgery Vascular Surgery
DX: I70.213 Atherosclerosis of native arteries of extremities with intermittent claudication, bilateral legs (principal); I74.09 Other arterial embolism and thrombosis of abdominal aorta; I25.2 Old myocardial infarction; E78.00 Pure hypercholesterolemia, unspecified; Z95.5 Presence of coronary angioplasty implant and graft; Z79.02 Long term (current) use of antithrombotics/antiplatelets; Z79.82 Long term (current) use of aspirin; Z79.899 Other long term (current) drug therapy; Z87.891 Personal history of nicotine dependence
CPT/HCPCS: 36245; 36415; 37224; 75710; 76937; 80069; 85027; 93005; 99152; 99153; J7030; C1725; C1769; C1894

== ENCOUNTER → 2022-01-29 | Outpatient (CLI) | payer MEDICARE, OTHER, SELFPAY ==
--- NOTE | 2022-01-29 11:32 | MRI_ITS ---
EXAM: MR LUMBAR SPINE WITHOUT INTRAVENOUS CONTRAST CLINICAL INDICATION: STENOSIS,POST LAMINECTOMY,SPONDYLOSIS TECHNIQUE: Multiplanar and multisequence MR images of the lumbar spine without intravenous contrast. This report was created using Smartjog report zumatek technology. COMPARISON: MR Lumbar Spine dated 03/04/2017 FINDINGS: VERTEBRAE: Normal. Vertebral body heights are preserved. Normal vertebral bodies and posterior elements. Normal alignment. No spondylolisthesis. There is preservation of the normal lumbar lordosis. SPINAL CORD: Normal. Normal position and signal intensity of the conus medullaris. SOFT TISSUES: Normal. DISCS/SPINAL CANAL/NEURAL FORAMINA: L1-2: Disc space narrowing. Mild disc osteophyte complex and facet arthropathy causes minor impression on the thecal sac and mild narrowing of the right neural foramen. Normal spinal canal and lateral recesses. L2-3: Disc space narrowing. No disc protrusion. Facet arthropathy causes mild right and moderate left neural foraminal narrowing. Normal spinal canal and lateral recesses. L3-4: No significant disc space narrowing. No disc herniation. Facet arthropathy causes mild to moderate neural foraminal narrowing bilaterally. Normal spinal canal and lateral recesses. L4-5: No disc space narrowing or disc protrusion. Posterior ligamentous redundancy and facet arthropathy result in moderate narrowing of the neural foramina and minor impression on the thecal sac. Normal spinal canal and lateral recesses. L5-S1: Interval placement of bilateral interpedicular screws with virtual complete loss of the disc space. No disc protrusion or spinal stenosis. Neuroforamina are not well evaluated due to artifacts related to the surgical hardware. MRI/Spine Lumbar (Routine) IMPRESSION: 1. Interval surgical fixation of L5 and S1 with interpedicular screws. 2. No spinal stenosis. 3. No foraminal narrowing as described mostly related to facet arthropathy. Electronically Signed: Nadeem Calderon MD at 15:48 EDT ,
== END | disposition home or self-care (01) ==
LOC: MRI 10:49
PROVIDERS: PCP Internal Medicine; Visit Provider Orthopaedic Surgery
DX: M47.816 Spondylosis without myelopathy or radiculopathy, lumbar region (principal); M48.061 Spinal stenosis, lumbar region without neurogenic claudication; M96.1 Postlaminectomy syndrome, not elsewhere classified
CPT/HCPCS: 72148

== ENCOUNTER → 2022-03-13 | Outpatient (CLI) | payer MEDICARE, OTHER, SELFPAY ==
--- NOTE | 2022-03-13 09:46 | ECHOD_ITS ---
Reason For Study: CAD/ASHD Procedure This was a 2D Doppler, Color Flow transthoracic echocardiogram. The exam was of adequate technical quality. Exam performed in department. Left Ventricle Normal LV size. Left ventricular systolic function is normal. The estimated ejection fraction is 65 %. No evidence for diastolic dysfunction. No regional wall motion abnormalities noted. Right Ventricle Normal RV size. Normal systolic function. Atria Normal left atrium. Normal right atrium. Hypermobile atrial septum. No doppler evidence for ASD. Bubble contrast study negative for right to left interatrial shunt. Mitral Valve There is no mitral annular calcification. Normal mitral valve. Trivial mitral valve insufficiency. Tricuspid Valve Normal tricuspid valve. Mild tricuspid valve insufficiency. Right ventricular systolic pressure estimated to be 31 mmHg. Aortic Valve Trisinus/trileaflet aortic valve. Normal aortic valve. Pulmonic Valve The pulmonic valve is not well visualized. Trivial pulmonic valve insufficiency. Great Vessels Normal sized aortic root. Pericardium/Pleural No pericardial effusion. Medication Performed a rapid injection of agitated mix of 9 cc saline and 1cc air to assess for atrial septal defect. MMode/2D Measurements & Calculations LVIDd: 4.7 cm IVSd: 0.92 cm Ao root diam: 3.3 cm LVIDs: 2.6 cm LVPWd: 0.96 cm RVDd: 2.9 cm FS: 45.2 % LAV(MOD-bp): 35.8 ml LVAd ap4: 21.8 cm2 SV(MOD-sp4): 36.1 ml LAV(MOD-bp) Indexed: 18.6 ml/m2 LVLd ap4: 7.8 cm LAV(MOD-sp2): 33.3 ml EDV(MOD-sp4): 52.7 ml LAV(MOD-sp4): 34.2 ml EDV(sp4-el): 51.7 ml LVAs ap4: 10.6 cm2 LVLs ap4: 6.1 cm ESV(MOD-sp4): 16.6 ml ESV(sp4-el): 15.8 ml EF(MOD-sp4): 68.4 % EF(sp4-el): 69.5 % SV(sp4-el): 35.9 ml LA A4 area: 14.0 cm2 LA dimension(2D): 4.1 cm RA A4 area: 12.0 cm2 Doppler Measurements & Calculations MV E max yovanny: 67.5 cm/sec Lat Peak E' Yovanny: 13.4 cm/sec Med Peak E' Yovanny: 6.3 cm/sec MV A max yovanny: 84.9 cm/sec E/E' lat: 5.1 E/E' med: 10.7 MV E/A: 0.80 Ao V2 max: 116.7 cm/sec LV V1 max: 91.3 cm/sec PA V2 max: 87.7 cm/sec Ao max P.4 mmHg LV V1 max P.3 mmHg Ao V2 mean: 83.9 cm/sec Ao mean P.0 mmHg Ao V2 VTI: 27.6 cm TR max yovanny: 263.0 cm/sec TR max P.7 mmHg ECHO/Echo Complete Interpretation Summary Left ventricular systolic function is normal. The estimated ejection fraction is 65 %. Hypermobile atrial septum. Trivial mitral valve insufficiency. Mild tricuspid valve insufficiency. Trivial pulmonic valve insufficiency. Right ventricular systolic pressure estimated to be 31 mmHg. No evidence for diastolic dysfunction. Bubble contrast study negative for right to left interatrial shunt. Ordering Physician: Perez Smith Referring Physician: Angela Murphy Performed By: Angelica Quigley, RDCS, RVT
== END | disposition home or self-care (01) ==
LOC: CVS 09:45
PROVIDERS: PCP Internal Medicine; Referring Provider Internal Medicine Cardiovascular Disease; Visit Provider Internal Medicine Cardiovascular Disease
DX: I25.111 Atherosclerotic heart disease of native coronary artery with angina pectoris with documented spasm (principal); I10 Essential (primary) hypertension; R00.2 Palpitations; R53.83 Other fatigue; Z95.5 Presence of coronary angioplasty implant and graft; Z95.828 Presence of other vascular implants and grafts
CPT/HCPCS: 93306; A4216

== ENCOUNTER 2022-03-31 08:20 | Day surgery (SDC) | payer MEDICARE, OTHER, SELFPAY ==
--- NOTE | 2022-03-23 10:48 | RAD_ITS ---
STUDY: X-RAY CHEST REASON FOR EXAM: Male, 76 years old. Pre Procedure Exam TECHNIQUE: PA or AP and lateral. COMPARISON: None. FINDINGS: Minimal bibasilar fibrosis or less likely atelectasis. Mid and upper lungs are clear. There is minimal biapical pleural thickening. Normal size heart. Normal mediastinum and shelby. Normal visualized pulmonary arteries. Normal visualized aortic arch and descending thoracic aorta. Mild degenerative changes mid and lower thoracic spine. Normal visualized ribs, clavicles, and shoulders. There is no demonstrated abnormality of the visualized soft tissue structures of the upper abdomen. RAD/Chest PA and Lateral IMPRESSION: Minimal bibasilar fibrosis or less likely atelectasis. Minimal biapical pleural thickening. Mild degenerative change mid and lower thoracic spine. Electronically Signed: Beau Reaves MD, KATTY at 11:25 EDT ,
[2022-03-23 11:20] LABS: Hematocrit 45.9 % (40-54); Hemoglobin 15.6 g/dL (13.0-16.5); Mean Corpuscular Hgb 31.1 pg (27.0-32.0); Mean Corpuscular Volume 91.6 fL (80-94); Mean Platelet Vol. 9.5 fl (6.2-12.0); Platelet Count 216 K/mm3 (150-450); RBC Distribution Width CV 13.5 % (11.6-14.6); RBC Distribution Width SD 45.9 fl (35.1-43.9); Red Blood Count 5.01 M/mm3 (4.6-6.2); White Blood Count 8.3 K/mm3 (4.4-11.0)
[2022-03-23 11:26] LABS: Partial Thromboplast Time 26.8 Seconds (24.1-36.2); Prothrombin Time (Protime)PT. 13.3 SECONDS (11.7-14.9)
[2022-03-23 11:49] LABS: Anion Gap 7 (5-15); BUN 15 mg/dL (7-18); BUN/Creat Ratio 13.3 RATIO (10-20); Calcium,Total 9.1 mg/dL (8.5-10.1); Chloride 107 mmol/L (98-107); Creatinine, Serum 1.13 mg/dL (0.70-1.30); EST Glomerular Filtration Rate 67 mL/min (>60); Est Glom Filt Rate - Afr Amer 81 mL/min (>60); Glucose 114 mg/dL (74-106); Potassium 4.5 mmol/L (3.5-5.1); Sodium Level 139 mmol/L (136-145)
--- NOTE | 2022-03-27 15:51 | PCM.HP.BLA ---
History and Physical Date of Admission: 03/31/22 [facility] [address] [place] [address] OFFICE VISIT Date of Service:? 03/23/22 MR#: [id number] Acct: [id number] Name:? MERRICK BRYAN Rep #: [id number] : 1945 ?Provider: ?JESSICA Moreira Age/Sex:? 76/M ?Location: [facility] Status: Signed with Addenda ADDENDUM by? 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 transplanted heart:?[place] heart? 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 (2) Stented coronary artery: ?Status:?Chronic ?Comment: 09/21/2003 PTCA and BENEDICT to ostium of first dx, Dr. Carbajal, [facility] (3) Peripheral arterial disease: ?Status:?Chronic (4) Essential hypertension: ?Status:?Chronic (5) Hyperlipidemia: ?Status:?Chronic ?Qualifiers: ?Hyperlipidemia type:?unspecified? Qualified Code(s):?E78.5 - Hyperlipidemia, unspecified (6) Fatigue: ?Status:?Acute (7) Palpitations: ?Status:?Acute ? ? ? Orders: Orders 12 Lead EKG performed by [facility] Today R00.2 - Palpitations ? Plan Details Follow Up: ? ? Keep as is (KRR) 03/23/22 1620 <Electronically signed by Franchesca LOPEZ> Date Franchesca Moreira NP MORNING BABYSITTER-C cc:? Dr. Angela Murphy, DO ~* Signed HPI HPI History of Present Illness Surgical H&P: Yes Details: This is a 76-year-old white male who presents today for an outpatient cardiovascular follow-up visit. He has a history of CAD status post PCI (2003-diagonal branch), PAD, hyperlipidemia, hypertension, superimposed upon diabetes mellitus. He did have lipid labs performed on 10-09-2021.? His total cholesterol was 118 with an LDL of 53 and an HDL of 47.? His triglycerides were 88. He continues to follow with Dr. Chávez peripheral vascular surgery for his PAD. Patient underwent a balloon angioplasty of the right common femoral artery into the femoral bypass graft with a 6 and 7 mm balloon on 11/12/[address] Chávez. He underwent an echocardiogram on 03/13/2022-results are noted below. His 15 day event monitor raised concerns with aberrancy versus nonsustained ventricular tachycardia. From a cardiac standpoint, the patient is doing well. He is accompanied by her . He denies any palpitations, chest pain, pressure or heaviness. He denies SOB, Orthopnea, and PND. He does not have bleeding issues; no blood in urine, stool or nosebleeds. He does acknowledge being tired all the time. He denies myalgias, or claudication.? He does not have edema, or sudden weight gain. He denies dizziness, lightheadedness, syncopal or near syncopal episodes, and headaches. Intake Vital Signs ? 03/23/2210:12 03/23/2210:16 Height 5 ft 10 in 5 ft 10 in Weight: 170 lb ? BMI 24.3 ? BP 140/82 H ? Blood Pressure Location Lt brachial ? Position Sitting ? Respiration 18 ? Pulse 65 ? Pulse Source Monitor ? Pulse Oximetry (%) 95 ? 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: No Is patient in pain?: No Allergies atorvastatin [From Lipitor] Adverse Reaction (Intermediate, Verified 03/23/22 10:29) Myalgias Medications amlodipine 5 mg tablet 5 mg PO BID 04/16/17 [History Confirmed 03/23/22] fosinopril 20 mg tablet 20 mg PO DAILY 04/16/17 [History Confirmed 03/23/22] multivitamin 1 tab PO DAILY 04/16/17 [History Confirmed 03/23/22] aspirin 81 mg tablet,delayed release (Adult Aspirin Regimen) 81 mg PO QDAY 01/06/18 [History Confirmed 03/23/22] metformin 500 mg tablet 500 mg PO DAILY 09/19/20 [History Confirmed 03/23/22] gabapentin 600 mg tablet 600 mg PO BID 04/17/21 [History Confirmed 03/23/22] rosuvastatin 10 mg tablet 10 mg PO DAILY 10/17/21 [History Confirmed 03/23/22] clopidogrel 75 mg tablet 75 mg PO DAILY 01/26/22 [History Confirmed 03/23/22] metoprolol tartrate 50 mg tablet 50 mg PO BID 03/23/22 [History Confirmed 03/23/22] PFSH Medical History? 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 History of left heart catheterization S/P femoral-femoral bypass surgery Family History? Father?? ,? of cancer Myocardial infarction,? Onset Age: 70 CancerMother?? ,? age 66 Bleeding in brain due to brain aneurysmBrother Myocardial infarction,? Onset Age: 62 CAD (coronary artery disease) Social History? Smoking Status:? Former smoker how long ago did patient quit smoking:? 2001 ROS Const Const: Positive for fatigue (tired all the time); Negative for weakness, fever(s), headache(s), chills, frequent falls, weight gain or weight loss Eyes Eyes: Negative for blind spots, loss of peripheral vision, transient loss of vision, blurry vision, change in vision, double vision, floaters or tunnel vision ENT ENT: Negative for headache(s), dizziness, Nosebleed/epistaxis, balance problems or neck pain Cardio Chest Pain: No Palpitations: No Edema: None Muscle aches with walking: None Resp Respiratory: Negative for SOB with activity, SOB at rest or SOB orthopnea\SOB lying down GI GI: Negative nausea, vomiting, heartburn, bloating, vomiting blood/hematemesis, bright, red blood in stools or black,tarry stools Musc Musc: Negative for muscle aches/ myalgia, muscle weakness, joint pain or balance problems Neuro Neuro: Negative for dizziness, lightheadedness, near syncope, syncope, orthostatic symptoms, frequent falls, headache(s), weakness, blurry vision or double vision Artie Hematologic/Lymphatic: Negative for easy bleeding or easy bruising Endo Endo: Positive for fatigue (tired all the time) Cardiology Exam Const Appearance: cooperative and no acute distress Orientation: alert and oriented x3 Head Head: normal to inspection Ears: hearing grossly normal bilaterally Nose: external nose normal Face and Sinus: face symmetric Eyes General: appearance normal, both eyes and all related structures Eyelids: eyelids normal Conjunctivae: conjunctivae normal Pupils: PERRL and pupil size EOM: EOM intact bilaterally Neck Neck: normal visual inspection Carotids: Negative bruit Chest Chest inspection: normal inspection of the chest and normal respiratory effort Auscultation: Bilateral: Clear to Auscultation Cardio Palpation: normal PMI Rate: regular rate Rhythm: regular rhythm Heart sounds: S1 normal and S2 normal; Negative rub, gallop or murmur GI GI: normal to inspection and soft; Negative no hepatosplenomegaly Neuro General: patient alert, patient oriented x3 and CN's II-XI intact bilaterally Skin Skin: no rashes or lesions noted Extremities Pulses: Normal: Right Posterior Tibial Pulse, Left Posterior Tibial Pulse, Right Radial Pulse and Left Radial Pulse Lower Extremity Edema: None: Bilateral Psych Psychological: normal affect Supplemental Info Supplemental Information Echocardiogram 03/13/2022: Interpretation Summary Left ventricular systolic function is normal. The estimated ejection fraction is 65 %. Hypermobile atrial septum. Trivial mitral valve insufficiency. Mild tricuspid valve insufficiency. Trivial pulmonic valve insufficiency. Right ventricular systolic pressure estimated to be 31 mmHg. No evidence for diastolic dysfunction. Bubble contrast study negative for right to left interatrial shunt. Stress test 10/30/2021: Interpretation: Rest and stress SPECT Cardiolite nuclear imaging status post realignment and normalization demonstrate at rest the appearance of a small area of subtle diminished tracer uptake in the mid inferior segments which appears to improve/normalize following stress.? There is end systolic thickening and brightening.? The gated Cardiolite study demonstrates myocardial thickening and inward wall motion.? The reported LVEF is 69%. Impression: 1.? Rest and stress SPECT current nuclear imaging demonstrate myocardial perfusion changes compatible with shifting soft tissue attenuation/artifact which appears to be more prominent at rest as opposed to stress with no myocardial perfusion changes considered diagnostic for associated stress-induced myocardial ischemia. 2.? The gated Cardiolite study reports an LVEF of 69%. Stress Test 05/2018: Pharmacologic myocardial perfusion stress test. 72-year-old man with a history of coronary artery disease status post angioplasty and stenting 15 years ago. Medications: Metoprolol rosuvastatin fosinopril amlodipine baby aspirin. Stress protocol: Resting EKG demonstrates normal sinus rhythm with a rate of 72 bpm normal intervals are noted resting blood pressure is 154/84 mmHg.? 0.4 mg of regadenoson was infused per usual protocol followed by rapid intravenous saline flush injection continuous EKG monitoring was performed.? The maximum heart rate attained was 102 bpm which was 68% of maximum predicted heart rate the maximum workload was 1 metabolic equivalent.? There were no ST or T wave changes noted to suggest abnormal flow reserve. Resting blood pressure was 154/84 final blood pressure was 150/80 mmHg. Myocardial perfusion protocol. 12.0 mCi of technetium 99m sestamibi was injected at rest.? 0.4 mg of regadenoson was infused per usual protocol.? At peak infusion 34.6 mCi of technetium 99m sestamibi was injected stress images were obtained stress and rest images were reconstructed and compared in the short axis vertical long and horizontal long axis.? Gated images were also obtained Perfusion SPECT analysis: Review of the stress images demonstrate normal uptake of tracer noted in all areas of the myocardium.? The resting images similarly demonstrate normal uptake of tracer noted in all areas of the myocardium.? No areas of reversibility are noted suggest ischemia no previous infarct is noted. Gated SPECT analysis: The gated ejection fraction is noted to be 70%. Conclusion: Normal pharmacologic myocardial perfusion stress test. Preserved ejection fraction. Labs: ?? ? LDL Cholesterol 53 mg/dL (0-130) ?? ? HDL Cholesterol 47 mg/dL (40-) ?? ? Triglycerides 88 mg/dL (-199) ?? ? VLDL Cholesterol 18 mg/dL (5-40) Diagnostics: ?? ? Electrocardiogram ? Echocardiogram ? Stress Test NM ? Stress Test ? Pulmonary: ?? ? 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 transplanted heart:?[place] heart? 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 His most recent stress test from 10/30/2021 was negative for ischemia. He appears stable at this time. He does have concerns of fatigue. He will undergo a cardiac catheterization with Dr. Smith on 03/31. Cardiac catheterization instructions given to patient, and he verbalizes understanding. He will continue with his current medical therapy, along with aggressive risk factor and lifestyle modifications. (2) Stented coronary artery: ?Status:?Chronic ?Comment: 09/21/2003 PTCA and BENEDICT to ostium of first dx, Dr. Carbajal, [facility] ?Plan: Patient has a history of coronary artery disease with stent placement in 2003.? His most recent stress test from 10/30/2021 was negative for ischemia. This was reviewed with him. He appears stable at this time. He does have concerns of fatigue. He will undergo a cardiac catheterization with Dr. Smith on 03/31. Cardiac catheterization instructions given to patient, and he verbalizes understanding. He will continue with his current medical therapy, along with aggressive risk factor and lifestyle modifications. (3) Peripheral arterial disease: ?Status:?Chronic ?Plan: Patient has a history of peripheral arterial disease.? He does follow with Dr. Chávez for this. (4) Essential hypertension: ?Status:?Chronic ?Plan: Patient has a history of hypertension.? His blood pressure is slightly elevated in the office today. He states his blood pressures at home average 120/70-80's.? He will continue with his current medical therapy, along with monitoring blood pressures at home.? He will notify our office of any persistent high or low blood pressure readings. (5) Hyperlipidemia: ?Status:?Chronic ?Qualifiers: ?Hyperlipidemia type:?unspecified? Qualified Code(s):?E78.5 - Hyperlipidemia, unspecified ?Plan: Patient has a history of hyperlipidemia.? His most recent lipid panel from 10/09/2021: Cholesterol 118, HDL 47, LDL 53, triglycerides 88.? He will continue with rosuvastatin 10 mg daily, along with aggressive risk factor and lifestyle modifications. (6) Fatigue: ?Status:?Acute ?Plan: He continues to have complaints of fatigue. His most recent stress test from 10/2021 was negative for ischemia. His most recent CBC was wnl. He will undergo a cardiac catheterization to evaluate this. (7) Palpitations: ?Status:?Acute ?Plan: Patient's 15 day event monitor raised concerns for aberrancy versus nonsustained ventricular tachycardia. Patient will undergo a cardiac catheterization on 03/[address] Smith. Cardiac catheterization instructions given to patient, and he verbalized understanding. ? ? ? Orders: Orders 12 Lead EKG performed by [facility] Today R00.2 - Palpitations ? Plan Details Additional Comments: Patient will follow up in 1 month, or sooner if needed. Thank you for allowing me to participate in the care of your patient. Please don't hesitate to call if any issues arise. This note was generated using a voice recognition system and there may be incorrect words, spelling, or punctuation that were not noted when reviewing the office note prior to saving. Portions of this documentation were copied and pasted from previous office visit notes to provide a cohesive continuity of the history. The note has been reviewed, edited, and updated, as necessary. Follow Up: ? ? Keep as is (KRR) COVID (Procedure Consent) Procedure Criteria Procedure Criteria: Yes Elective The surgeon/proceduralist and patient have discussed in detail the risk of exposure to and/or potential harm posed by the COVID-19 virus with having a surgery/procedure at this time versus the risk of? delaying the surgery/procedure. It is not possible to know either the risk of delaying the surgery or procedure or chance of getting an infection with perfect accuracy, but a joint decision was made between the patient and the surgeon/proceduralist ?to proceed at this time with the scheduled surgery/procedure as indicated on the consent form. 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 I25.111 ? ? ? [place] vs. transplanted heart: [place] heart Stented coronary artery? Z95.5 Peripheral arterial disease? I73.9 Essential hypertension? I10 Hyperlipidemia? E78.5 ? ? ? Hyperlipidemia type: unspecified Fatigue? R53.83 Palpitations? 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 I25.111 ? ? ? [place] vs. transplanted heart: [place] heart Stented coronary artery? Z95.5 Peripheral arterial disease? I73.9 Essential hypertension? I10 Hyperlipidemia? E78.5 ? ? ? Hyperlipidemia type: unspecified Fatigue? R53.83 Palpitations? R00.2 03/23/22 1620 <Electronically signed by Franchesca AKBARC> Date Franchesca LOPEZ Cosigner Signature: Date (if applicable) CC:? Dr. Angela Murphy, DO ~ Assessment & Plan Addt'l Comments I have re-examined the patient. There are no clinical changes since date of exam. This note was generated using a voice recognition system and there may be incorrect words, spelling or punctuation that were not noted when reviewing the office note prior to saving.
[2022-03-30 07:04] VITALS: BMI 24.3
--- NOTE | 2022-04-02 10:36 | CL.D_ITS ---
Patient Name: MERRICK BRYAN Study Date: 03/31/2022 Performing: Perez Smith MD Ht: 70 inches 177.8 cm : 1945 Wt: 170.2 lbs 77.11 kg Age: 76 Gender: male BSA: 1.95 PROCEDURE(S) PERFORMED [id number])[facility] CLINICAL PROFILE AND INDICATIONS Indications: Cardiac Arrythmia, Pre-Operative Evaluation Heart Failure: None Stress/Imaging Date: 10/30/2021tress Test with SPECT MPI: Negative Angina Classification Anginal Classification w/in 2 Weeks: No symptoms CAD Presentations: No Sxs, no angina. CONCLUSIONS [place] Multivessel CAD DX1: stent: patent RECOMMENDATIONS Risk factor modification Medical therapy DESCRIPTION OF PROCEDURE The patient arrived to the procedure lab. The risks and benefits of the procedure as well as a full description of our services here and current unavailability of surgical backup were fully explained to the patient and/or their significant other prior to the catheterization. The Timeout was completed, verifying the correct patient and procedure. The patient's procedural site was prepped and draped in the usual fashion. Local anesthetic was given subcutaneously to right radial region with Lidocaine 2%. Using a modified Seldinger technique, arterial access was obtained via the right radial artery, a 6Fr sheath was inserted. Left Coronary Artery selective angiography was performed in multiple views using a 5 Fr. 4.0 Brook catheter. Right Coronary Artery selective angiography was then performed in multiple views using a 5 Fr. 4.0 Brook catheter. Right Coronary Artery selective angiography was then performed in multiple views using a 5 Fr. 4.0 Brook catheter.The arterial sheath was pulled and a TR Band was applied for hemostasis. 11cc air inserted. CORONARY ANGIOGRAPHY DOMINANCE: Left Dominant LEFT HEART ASSESSMENT Left Ventricular Ejection Fraction: Not assessed LEFT MAIN: short: bifurcating vessel, Mild calcification LEFT ANTERIOR DESCENDING ARTERY: MID LAD: Mild calcification, Mild luminal irregularities, at the bifurcation of the SP and DX1: eccentric: 10 - 25 % Stenosis DIAGONAL 1: Proximal - Previously placed stent is patent CIRCUMFLEX ARTERY: Mild luminal irregularities PROX CIRC: Mild calcification RIGHT CORONARY ARTERY: Angiographically normal COMPLICATIONS No Complications PROCEDURE MEDICATIONS Fentanyl 50 mcg IV Versed 1 mg IV Oxygen: 2 L/min via nasal cannula Heparin given IA 03/31/2022 09:57:59 Verapamil 2.5mg, Ntg 100mcgs, 3000 units of Heparin given IA 03/31/2022 09:57:59 SUMMARY OF HEMODYNAMIC DATA Time AIR REST ECG 08:37:18 AO 107/41 (63) SA 10:08:58 AIR REST 11:00:11 Signed By Perez Smith MD On 04/02/2022 10:35:31 Perez Smith MD
== END 2022-03-31 13:00 | disposition home or self-care (01) ==
PROVIDERS: PCP Internal Medicine; Referring Provider Internal Medicine Cardiovascular Disease; Visit Provider Internal Medicine Cardiovascular Disease
DX: I25.111 Atherosclerotic heart disease of native coronary artery with angina pectoris with documented spasm (principal); E11.51 Type 2 diabetes mellitus with diabetic peripheral angiopathy without gangrene; E78.5 Hyperlipidemia, unspecified; I10 Essential (primary) hypertension; I25.2 Old myocardial infarction; R53.83 Other fatigue; R00.2 Palpitations; E66.3 Overweight; Z68.24 Body mass index [BMI] 24.0-24.9, adult; Z95.5 Presence of coronary angioplasty implant and graft; Z79.84 Long term (current) use of oral hypoglycemic drugs; Z79.899 Other long term (current) drug therapy; Z87.891 Personal history of nicotine dependence
CPT/HCPCS: 36415; 71046; 80048; 85027; 85610; 85730; 93454; 99152; 99153; J7030; Q9967; C1769; C1894

== ENCOUNTER → 2022-04-07 | Outpatient (CLI) | payer MEDICARE, OTHER, SELFPAY ==
[2022-04-07 11:35] LABS: Absolute Lymphocyte Count 2.11 X10^3/uL (0.83-4.51); Absolute Neutrophil Count 5.8 X10^3/uL (2.0-7.7); Basophil# 0.06 X10^3/uL; Basophil% 0.7 % (0-1); Eosinophil# 0.17 X10^3/uL; Eosinophils% 1.9 % (0-5); Hematocrit 46.2 % (40-54); Hemoglobin 15.2 g/dL (13.0-16.5); Lymphocyte # 2.11 X10^3/ul (0.83-4.51); Lymphocyte % 23.3 % (19-41); Mean Corp Hgb Conc 32.9 g/dL (32-36); Mean Corpuscular Hgb 29.9 pg (27.0-32.0); Mean Corpuscular Volume 90.9 fL (80-94); Mean Platelet Vol. 9.5 fl (6.2-12.0); Monocyte# 0.86 X10^3/uL; Monocyte% 9.5 % (0-10); NRBC Flagged by Analyzer 0 % (0-5); Neutrophil # 5.82 X10^3/uL (2.7-7.7); Neutrophil % 64.3 % (47-70); Platelet Count 242 K/mm3 (150-450); RBC Distribution Width CV 13.3 % (11.6-14.6); RBC Distribution Width SD 45.1 fl (35.1-43.9); Red Blood Count 5.08 M/mm3 (4.6-6.2); White Blood Count 9.1 K/mm3 (4.4-11.0)
[2022-04-07 11:44] LABS: International Normalized Ratio 1.1; Partial Thromboplast Time 26.8 Seconds (24.1-36.2); Prothrombin Time (Protime)PT. 13.7 SECONDS (11.7-14.9)
[2022-04-07 12:10] LABS: AST(SGOT) 23 U/L (15-37); Alanine Aminotransfer ALT/SGPT 41 U/L (16-61); Albumin, Serum 3.8 g/dL (3.2-5.0); Alkaline Phosphatase 68 U/L (45-117); Anion Gap 7 (5-15); BUN 18 mg/dL (7-18); BUN/Creat Ratio 17.8 RATIO (10-20); Bilirubin, Direct 0.18 mg/dL (0.00-0.30); Calcium,Total 9.1 mg/dL (8.5-10.1); Chloride 108 mmol/L (98-107); Cholesterol 127 mg/dL (200); Creatinine, Serum 1.01 mg/dL (0.70-1.30); EST Glomerular Filtration Rate 77 mL/min (>60); Est Glom Filt Rate - Afr Amer 93 mL/min (>60); Globulin 3.8 g/dL (2.2-4.2); Glucose 117 mg/dL (74-106); High Density Lipoprotein 52 mg/dL; Potassium 4.5 mmol/L (3.5-5.1); Protein, Total 7.6 g/dL (6.4-8.2); Sodium Level 138 mmol/L (136-145); Triglycerides 105 mg/dL; Very Low Density Lipoprotein 21 mg/dL (5-40)
== END | disposition home or self-care (01) ==
LOC: LAB 11:10
PROVIDERS: PCP Internal Medicine; Referring Provider Physician Assistant Surgical; Visit Provider Physician Assistant Surgical
DX: Z01.812 Encounter for preprocedural laboratory examination (principal); E11.9 Type 2 diabetes mellitus without complications; E78.00 Pure hypercholesterolemia, unspecified; Z79.01 Long term (current) use of anticoagulants
CPT/HCPCS: 36415; 80048; 80061; 80076; 83036; 85025; 85610; 85730

== ENCOUNTER → 2022-04-23 | Outpatient (CLI) | payer MEDICARE, OTHER, SELFPAY ==
[2022-04-23 11:02] LABS: Vitamin D,25 Hydroxy 36.3 ng/mL
[2022-04-23 11:06] LABS: Free T3 3.8 pg/mL (2.18-3.98); T4 Free Direct 1.11 ng/dL (0.76-1.46); Thyroid Stim Hormone (TSH) 1.35 uIU/mL (0.358-3.74)
== END | disposition home or self-care (01) ==
LOC: LAB 09:53
PROVIDERS: PCP Internal Medicine; Referring Provider Nurse Practitioner Gerontology; Visit Provider Nurse Practitioner Gerontology
DX: R53.83 Other fatigue (principal)
CPT/HCPCS: 36415; 82306; 84439; 84443; 84481

== ENCOUNTER → 2022-07-07 | Outpatient (CLI) | payer MEDICARE, OTHER, SELFPAY | END | disposition home or self-care (01) | LOC: LABSPEC 16:29 | PROVIDERS: PCP Internal Medicine; Visit Provider Urology | DX: R31.0 Gross hematuria (principal) | CPT/HCPCS: 87077; 87086; 87088; 87186 ==

== ENCOUNTER → 2022-09-25 | Outpatient (CLI) | payer MEDICARE, OTHER, SELFPAY ==
--- NOTE | 2022-09-25 06:44 | CT_ITS ---
STUDY: CT ABDOMEN AND PELVIS WITH CONTRAST REASON FOR EXAM: Male, 76 years old. Abdominal distention, nausea RADIATION DOSAGE (If Supplied By Facility): CTDIvol = ( 11.27 ) mGy, DLP = ( 525.28 ) mGycm TECHNIQUE: Transaxial images were obtained from the dome of the diaphragm to the symphysis pubis with oral contrast. Oral and amp; IV Redi-CAT and amp; 100mL Isovue-370 was administered. Sagittal and coronal images were reconstructed. Individualized dose optimization techniques were used for this CT. COMPARISON: None. FINDINGS: The visualized lung bases are unremarkable. The visualized portions of the heart are within normal limits. Liver is unremarkable aside from a 1 cm cyst in left lobe. Normal gallbladder and extrahepatic biliary system. Normal spleen. Normal pancreas. Normal bilateral adrenal glands. No obstructive uropathy, or suspicious solid renal lesion, simple 1.5 cm left renal cyst. There are also parapelvic cysts in the left kidney. Normal visualized stomach. Normal small intestine. Retained stool noted throughout the entirety of the colon with scattered diverticular disease. No CT evidence of acute diverticulitis. The appendix is visualized and appears normal. Appendix seen on coronal recon images 64-73 Peripheral calcifications noted in the abdominal aorta without aneurysm. 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 In the soft tissues of the anterior pelvis is a femorofemoral bypass graft which is patent. Normal inferior vena cava. Normal retroperitoneum. Normal urinary bladder. There is a small umbilical hernia containing fat. Bony structures show degenerative change, surgical hardware at L5 and S1 free of complication. There is also a neural stimulator catheter noted in the posterior soft tissues which is also free of complication CT/Abdomen/Pelvis WITH Contrast IMPRESSION: No suspicious solid organ abnormality, simple hepatic and left renal cysts, no specific follow-up needed. 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 No free intraperitoneal fluid, air, or suspicious adenopathy, normal appendix visualized Retained stool throughout the entirety of the colon which may be impacted. Colonic diverticulosis, particularly in the sigmoid colon without CT evidence of acute diverticulitis. Electronically Signed: Jose Garber MD at 8:32 EDT ,
[2022-09-25 07:20] LABS: EGFR FINGERSTICK > 60.0000 mL/min (>60)
== END | disposition home or self-care (01) ==
LOC: CT 06:42
PROVIDERS: PCP Internal Medicine; Referring Provider Internal Medicine; Visit Provider Internal Medicine
DX: R14.0 Abdominal distension (gaseous) (principal)
CPT/HCPCS: 74177; Q9967

== ENCOUNTER → 2022-10-13 | Outpatient (CLI) | payer MEDICARE, OTHER, SELFPAY ==
[2022-10-13 10:04] LABS: Bacteria 0 SEEN /hpf (None Seen); Mucous, Urine 0 SEEN /hpf (<or=2+); White Blood Cells 0 SEEN /hpf (0-5)
[2022-10-13 12:22] LABS: Absolute Lymphocyte Count 1.69 X10^3/uL (0.83-4.51); Absolute Neutrophil Count 4.4 X10^3/uL (2.0-7.7); Basophil# 0.05 X10^3/uL; Basophil% 0.7 % (0-1); Eosinophil# 0.17 X10^3/uL; Eosinophils% 2.4 % (0-5); Hematocrit 46.6 % (40-54); Lymphocyte # 1.69 X10^3/ul (0.83-4.51); Lymphocyte % 24.1 % (19-41); Mean Corp Hgb Conc 32.2 g/dL (32-36); Mean Corpuscular Volume 93.2 fL (80-94); Mean Platelet Vol. 10.1 fl (6.2-12.0); Monocyte# 0.68 X10^3/uL; Monocyte% 9.7 % (0-10); NRBC Flagged by Analyzer 0 % (0-5); Neutrophil # 4.39 X10^3/uL (2.7-7.7); Neutrophil % 62.8 % (47-70); Platelet Count 201 K/mm3 (150-450); RBC Distribution Width CV 13.2 % (11.6-14.6); RBC Distribution Width SD 44.8 fl (35.1-43.9)
[2022-10-13 12:36] LABS: Color, Urine Yellow (Yellow); Glucose, Dipstick Normal (Normal); Ketone-Dipstick 5 mg/dl (Negative); Leukocyte Esterase-Dipstick Negative /ul (Negative); Nitrite-Dipstick Negative (Negative); Occult Blood-Urine 10 /ul (Negative); Protein-Dipstick 30 mg/dl (Negative); Urine Bilirubin Dipstick Negative (Negative); Urine Clarity Sl. Cloudy (Clear); Urine Urobilinogen 1 mg/dl (Normal)
[2022-10-13 12:44] LABS: Vitamin D,25 Hydroxy 44.3 ng/mL
[2022-10-13 12:45] LABS: Microalbumin,Random Urine 70.2 mg/L (NO RANGE EST.)
[2022-10-13 12:50] LABS: Red Blood Cells-Urine 0-5 SEEN /hpf (0-5); Squamous Epithelial Cells - UA 0-5 SEEN /hpf (0-5)
[2022-10-13 12:51] LABS: ALB/GLOB Ratio 1.1 RATIO (0.9-2.4); AST(SGOT) 32 U/L (15-37); Alanine Aminotransfer ALT/SGPT 40 U/L (16-61); Albumin, Serum 3.9 g/dL (3.2-5.0); Alkaline Phosphatase 69 U/L (45-117); Anion Gap 5 (5-15); BUN 18 mg/dL (7-18); BUN/Creat Ratio 18.7 RATIO (10-20); Bilirubin, Direct 0.14 mg/dL (0.00-0.30); Calcium,Total 8.7 mg/dL (8.5-10.1); Chloride 109 mmol/L (98-107); Cholesterol 122 mg/dL (200); Creatinine, Serum 0.96 mg/dL (0.70-1.30); EST Glomerular Filtration Rate 81 mL/min (>60); Est Glom Filt Rate - Afr Amer 98 mL/min (>60); Globulin 3.6 g/dL (2.2-4.2); Glucose 122 mg/dL (74-106); High Density Lipoprotein 49 mg/dL; PSA,Total- Diagnostic 3.78 ng/mL (0.0-4.0); Potassium 4.6 mmol/L (3.5-5.1); Protein, Total 7.5 g/dL (6.4-8.2); Sodium Level 138 mmol/L (136-145); Triglycerides 123 mg/dL; Very Low Density Lipoprotein 25 mg/dL (5-40)
== END | disposition home or self-care (01) ==
LOC: BIMLAB 10:02
PROVIDERS: PCP Internal Medicine; Referring Provider Internal Medicine; Visit Provider Internal Medicine
DX: I25.111 Atherosclerotic heart disease of native coronary artery with angina pectoris with documented spasm (principal); E11.9 Type 2 diabetes mellitus without complications; E78.00 Pure hypercholesterolemia, unspecified; E55.9 Vitamin D deficiency, unspecified; R10.30 Lower abdominal pain, unspecified; R53.83 Other fatigue; R97.20 Elevated prostate specific antigen [PSA]
CPT/HCPCS: 80053; 80061; 81001; 82043; 82248; 82306; 82570; 84153; 84443; 85025; 87086

== ENCOUNTER → 2022-11-13 | Outpatient (CLI) | payer MEDICARE, OTHER, SELFPAY | END | disposition home or self-care (01) | LOC: PSN 08:47 | PROVIDERS: PCP Internal Medicine; Referring Provider Nurse Practitioner Gerontology; Visit Provider Nurse Practitioner Gerontology | DX: I47.29 Other ventricular tachycardia (principal); I25.111 Atherosclerotic heart disease of native coronary artery with angina pectoris with documented spasm; R00.2 Palpitations | CPT/HCPCS: 93225; 93226 ==

== ENCOUNTER → 2022-12-08 | Outpatient (CLI) | payer MEDICARE, OTHER, SELFPAY ==
--- NOTE | 2022-12-08 07:45 | ADU_ITS ---
Reason For Study: HX fem-fem BPG Right Velocities Left Velocities Ext. Iliac Artery, dist = 180.3 cm./sec. External Iliac distal = Known Occlusion. Right to Left fem/fem bypass noted. Common Femoral Artery, prox = 192.7 cm./sec. Prox anastomosis, 721.6 cm/sec. Supf. Femoral Artery, prox = 107.0 cm./sec. Prox graft, 156.0 cm/sec. Profunda Femoral Artery = 81.5 cm./sec. Mid graft, 169.5 cm/sec. Distal graft, 127.7 cm/sec. Distal anastomosis, 225.0 cm/sec. Procedure The exam was diagnostic. Exam performed in department. Comments Preliminary finding sent to Dr. Chávez. / Art Duplex Bilat Lower Ext Interpretation Summary Severe stenosis proximal BPG. Ordering Physician: Nando Chávez Referring Physician: Raquel Siddiqui Performed By: Glen Reddy RVT
--- NOTE | 2022-12-08 07:45 | ART_ITS ---
Reason For Study: S/P Angioplasty Procedure A bilateral lower extremity continuous wave Doppler with analog waveform analysis and ankle brachial indexes. Left Segmental Pressures Left brachial= 156mmHg. Left posterior tibial artery = 121mmHg. Left dorsalis pedis artery = 138mmHg. The left posterior tibial artery waveforms are triphasic. The left dorsalis pedis waveforms are triphasic. Right Segmental Pressures Right brachial= 156mmHg. Right posterior tibial artery = 155mmHg. Right dorsalis pedis artery = 157mmHg. The right posterior tibial artery waveforms are triphasic. The right dorsalis pedis waveforms are triphasic. Indices The right ankle brachial index by the posterior tibial artery is 0.99. The right ankle brachial index by the dorsalis pedis is 1.01. The left ankle brachial index by the posterior tibial artery is 0.78. The left ankle brachial index by the dorsalis pedis is 0.88. VL/Ankle Brachial Index Interpretation Summary Bilateral triphasic and CLARISSA 1.01 and 0.88. Ordering Physician: Nando Chávez Referring Physician: Raquel Siddiqui Performed By: Glen Reddy RVT
--- NOTE | 2022-12-08 07:45 | CDU_ITS ---
Reason For Study: S/P Angioplasty Rt. Velocities/BP Lt. Velocities/BP Prox CCA 97.9/13.9 cm/sec. Prox CCA 95.7/16.7 cm/sec. Mid CCA 61.4/10.2 cm/sec. Mid CCA 87.9/15.5 cm/sec. Dist CCA 66.6/12.7 cm/sec. Dist CCA 63.4/13.0 cm/sec. Prox ICA 57.8/13.8 cm/sec. Prox ICA 151.9/27.5 cm/sec. Mid ICA 55.6/12.7 cm/sec. Mid ICA 101.1/23.7 cm/sec. Dist ICA 52.9/12.7 cm/sec. Dist ICA 71.9/15.4 cm/sec. Rt. ICA/CCA = 0.9. Lt. ICA/CCA = 1.7. Prox ECA 295.4/24.7 cm/sec. Prox ECA 141.8/12.3 cm/sec. Rt. Vert. 63.3/16.2 cm/sec. Lt. Vert. 38.9/5.9 cm/sec. Right Extracranial There is intimal thickening but no significant atherosclerotic plaque noted in the right common carotid artery. There is heterogeneous, irregular atherosclerotic plaque noted in the right internal carotid artery. There is heterogeneous, irregular atherosclerotic plaque noted in the right external carotid artery. Antegrade flow is noted in the right vertebral artery. There is heterogeneous, irregular atherosclerotic plaque noted in the right bulb. Left Extracranial There is heterogeneous, irregular atherosclerotic plaque noted in the left common carotid artery. There is heterogeneous, irregular atherosclerotic plaque noted in the left internal carotid artery. There is heterogeneous, irregular atherosclerotic plaque noted in the left external carotid artery. Abnormal waveform morphology noted. There is heterogeneous, irregular atherosclerotic plaque noted in the left bulb. Procedure Carotid Duplex 79371. This is a Carotid Duplex examination using B-mode, color flow and specral Doppler. The exam was diagnostic. Exam performed in department. VL/Carotid Duplex Ultrasound Interpretation Summary Mild (<50%) stenosis right extracranial internal carotid. Moderate (50-69%) sam nosis left extracranial internal carotid. Ordering Physician: Nando Chávez Referring Physician: Raquel Siddiqui Performed By: Glen Reddy RVT
--- NOTE | 2022-12-08 08:04 | AAVD_ITS ---
Reason For Study: S/P Angioplasty Aorta Measurements Aorta Doppler Measurements Proximal aorta measures1.91x 1.92cm. in cross- Peak systolic flow velocities within the proximal sectional axis. aorta measure 88.6 cm/sec. Proximal aorta measures1.98cm. in longitudinal Peak systolic flow velocities within the mid aorta axis. measure 61.4 cm/sec. Mid aorta measures1.74 x 1.74cm. in cross- Peak systolic flow velocities within the distal sectional axis. aorta measure 112.2 cm/sec. Mid aorta measures1.77cm. in longitudinal axis. Distal aorta measures1.61 x 1.65cm. in cross- sectional axis. Distal aorta measures1.67cm. in longitudinal axis. Heterogenous irregular plaque noted throughout mid and distal portions of the vessel. Left Iliac Artery Left iliac artery measures 0.75 x 0.73 cm. in the cross-sectional axis. Left iliac artery measures 0.74 cm. in the longitudinal axis. Peak systolic velocity in the left iliac artery measures 0.0 cm/sec. Known Iliac occlusion Irregular heterogenous plaque noted throughout the vessel. Right Iliac Artery Right iliac artery measures 0.87 x 0.89 cm. in the cross-sectional axis. Right iliac artery measures 0.90 cm. in the longitudinal axis. Peak systolic velocity in the right iliac artery measures 270.7 cm/sec. Procedure Aorta IVC Iliac vasculature or bypass grafts 80697. The exam was diagnostic. Exam performed in department. VL/Abd Aortic/IVC Duplex scan Interpretation Summary Aorta and right iliac patent with moderate stenosis right MATT 270. Left iliac k nown occlussion. Ordering Physician: Nando Chávez Referring Physician: Raquel Siddiqui Performed By: Glen Reddy, RVT
== END | disposition home or self-care (01) ==
LOC: CVS 07:44
PROVIDERS: PCP Internal Medicine; Referring Provider Surgery Vascular Surgery; Visit Provider Surgery Vascular Surgery
DX: Z48.812 Encounter for surgical aftercare following surgery on the circulatory system (principal); I74.09 Other arterial embolism and thrombosis of abdominal aorta; I70.213 Atherosclerosis of native arteries of extremities with intermittent claudication, bilateral legs; I65.23 Occlusion and stenosis of bilateral carotid arteries
CPT/HCPCS: 93880; 93922; 93925; 93978

== ENCOUNTER → 2023-02-01 | Outpatient (CLI) | payer MEDICARE, OTHER, SELFPAY ==
--- NOTE | 2023-02-01 09:16 | NM_ITS ---
CLINICAL: 77-year-old male with history of abdominal bloating. SEMI-SOLID PHASE 99m Tc SULFUR COLLOID GASTRIC EMPTYING STUDY COMPARISON: None available FINDINGS: The patient was administered 1.2 mCi of 99m Tc sulfur colloid mixed with oatmeal and consumed per os. Image acquisitions in the anterior-posterior projections were obtained for 60 minutes. There is prompt visualization of the stomach. There is no gastroesophageal reflux identified. The T ? linear fit was calculated to be 60.53 minutes, (Normal: 12-56 minutes). NM/Gastric Emptying Study IMPRESSION: 1. ABNORMAL 99m Tc sulfur colloid semi-solid phase (oatmeal) gastric emptying imaging examination. A. There is mild delayed semi-solid phase gastric emptying compared to normal controls. (Aric et al, J Nucl Med Tech 38: 186, 2010). Electronically Signed: Raad Mcmahon, at 23:03 EDT ,
== END | disposition home or self-care (01) ==
LOC: NM 09:15
PROVIDERS: PCP Internal Medicine; Referring Provider Internal Medicine; Visit Provider Internal Medicine
DX: R14.0 Abdominal distension (gaseous) (principal)
CPT/HCPCS: 78264; A9541

== ENCOUNTER → 2023-02-17 | Outpatient (CLI) | payer MEDICARE, OTHER, SELFPAY ==
[2023-02-17 18:15] LABS: CRP < 2.90 mg/L (0.0-3.0)
[2023-02-19 15:08] LABS: Endomysial Antibody IgA Negative (Negative); Immunoglobulin A 340 mg/dL (61-437); t-Transglutaminase IgA <2 U/mL (0-3)
== END | disposition home or self-care (01) ==
LOC: MTLAB 16:36
PROVIDERS: PCP Internal Medicine; Referring Provider Internal Medicine Gastroenterology; Visit Provider Internal Medicine Gastroenterology
DX: R10.9 Unspecified abdominal pain (principal)
CPT/HCPCS: 36415; 82784; 83516; 86140; 86255

== ENCOUNTER → 2023-03-01 | Outpatient (CLI) | payer MEDICARE, OTHER, SELFPAY ==
--- NOTE | 2023-03-01 09:50 | RAD_ITS ---
STUDY: SMALL BOWEL FOLLOW-THROUGH EXAMINATION. REASON FOR EXAM: Male, 77 years old. ABD PAIN, WEIGHT LOSS. Distended abdomen. FLUOROSCOPY TIME (if supplied): ( 66 seconds. ) minutes/seconds. 15 images were obtained. TECHNIQUE: A small bowel follow-through examination was obtained. COMPARISON: None. FINDINGS: On the relay mechanic view, a large amount of fecal material is seen in the colon. The spinal cord similar device is seen. Prior fusion and laminectomy in the lower lumbar spine. No evidence of bowel dilatation. Contrast is seen within the colon at 120 minutes. The terminal ileum is unremarkable. RAD/Small Bowel Series Only IMPRESSION: Unremarkable small bowel follow-through examination. Electronically Signed: Abel Matthews MD at 9:33 EDT ,
== END | disposition home or self-care (01) ==
LOC: RAD 09:36
PROVIDERS: PCP Internal Medicine; Referring Provider Internal Medicine Gastroenterology; Visit Provider Internal Medicine Gastroenterology
DX: R10.9 Unspecified abdominal pain (principal); R63.4 Abnormal weight loss
CPT/HCPCS: 74250

== ENCOUNTER → 2023-04-14 | Outpatient (CLI) | payer MEDICARE, OTHER, SELFPAY ==
--- NOTE | 2023-04-14 07:13 | CT_ITS ---
EXAM: CT ANGIOGRAPHY ABDOMEN WITH INTRAVENOUS CONTRAST CLINICAL INDICATION: ABD PAIN, PVD VASCULAR DISEASE TECHNIQUE: Helically acquired angiography images of the abdomen with intravenous contrast. This CT exam was performed using one or more of the following dose reduction techniques: automated exposure control, adjustment of the mA and/or kV according to patient size, and/or use of iterative reconstruction technique. MIP reconstructed images were created and reviewed. CONTRAST: IV 100mL Isovue-370 COMPARISON: No relevant prior studies available. FINDINGS: AORTA: No acute findings. Normal caliber abdominal aorta. No dissection. CELIAC TRUNK AND MESENTERIC ARTERIES: No acute findings. No occlusion or significant stenosis. No dissection. RENAL ARTERIES: No acute findings. No occlusion or significant stenosis. No dissection. ILIAC ARTERIES: Left common iliac artery is occluded. Partially visualized reconstituted left internal and external iliac arteries. LOWER THORAX: Normal. Lung bases are clear. No cardiomegaly. No significant pericardial effusion. LIVER: Normal. Homogeneous. No focal mass. PANCREAS: Normal. No focal cystic or solid mass. SPLEEN: Normal. Normal size without focal cystic or solid mass. ADRENALS: Normal. No nodules. KIDNEYS AND URETERS: Small left renal cysts. Normal renal size and position. No hydronephrosis. STOMACH AND BOWEL: Normal. No stomach or bowel distention. No focal inflammatory change. APPENDIX: Appendix is visualized and normal in appearance. INTRAPERITONEAL SPACE: Normal. No ascites or other fluid collection. No free air. BONES/JOINTS: Normal. No suspicious lytic or blastic abnormality. SOFT TISSUES: Small fat-containing umbilical hernia is present. LYMPH NODES: No enlarged lymph nodes. TUBES, LINES AND DEVICES: Intraspinal stimulator wire extends into the thoracic spinal canal. CT/CTA Abdomen W/WO Contrast IMPRESSION: 1. No evidence of occlusion or significant stenosis of the mesenteric vessels. 2. Occluded left common iliac artery. Electronically Signed: Nadeem Calderon MD at 15:20 EDT ,
[2023-04-14 07:46] LABS: CREATININE FINGERSTICK 1.4 mg/dL (0.70-1.30)
== END | disposition home or self-care (01) ==
LOC: CT 07:12
PROVIDERS: PCP Internal Medicine; Referring Provider Internal Medicine Gastroenterology; Visit Provider Internal Medicine Gastroenterology
DX: R10.9 Unspecified abdominal pain (principal); I73.9 Peripheral vascular disease, unspecified
CPT/HCPCS: 74175; Q9967; A4216

== ENCOUNTER → 2023-05-18 | Outpatient (CLI) | payer MEDICARE, OTHER, SELFPAY ==
--- NOTE | 2023-05-18 07:44 | ART_ITS ---
Reason For Study: S/P Angioplasty and Aortogram Procedure A bilateral lower extremity continuous wave Doppler with analog waveform analysis and ankle brachial indexes. Left Segmental Pressures Left brachial= 158mmHg. Left posterior tibial artery = 148mmHg. Left dorsalis pedis artery = 147mmHg. The left posterior tibial artery waveforms are triphasic. The left dorsalis pedis waveforms are triphasic. Right Segmental Pressures Right brachial= 156mmHg. Right posterior tibial artery = 155mmHg. Right dorsalis pedis artery = 147mmHg. The right posterior tibial artery waveforms are triphasic. The right dorsalis pedis waveforms are triphasic. Indices The right ankle brachial index by the posterior tibial artery is 0.98. The right ankle brachial index by the dorsalis pedis is 0.93. The left ankle brachial index by the posterior tibial artery is 0.94. The left ankle brachial index by the dorsalis pedis is 0.93. VL/Ankle Brachial Index Interpretation Summary Minimal disease at rest with CLARISSA 0.98 and 0.94. Ordering Physician: Chelly Drake Referring Physician: CHELLY DRAKE DR. Performed By: Glen Reddy RVT
--- NOTE | 2023-05-18 07:44 | AAVD_ITS ---
Reason For Study: S/P Angioplasty and Aortogram Aorta Measurements Aorta Doppler Measurements Proximal aorta measures1.81 x 1.85cm. in cross- Peak systolic flow velocities within the proximal sectional axis. aorta measure 104.9 cm/sec. Proximal aorta measures1.94cm. in longitudinal Peak systolic flow velocities within the mid aorta axis. measure 77.7 cm/sec. Mid aorta measures1.84 x 1.83cm. in cross- Peak systolic flow velocities within the distal sectional axis. aorta measure 86.8 cm/sec. Mid aorta measures1.75cm. in longitudinal axis. Distal aorta measures1.78 x 1.75cm. in cross- sectional axis. Distal aorta measures1.64cm. in longitudinal axis. Left Iliac Artery Left iliac artery measures 0.77 x 0.74 cm. in the cross-sectional axis. Left iliac artery measures 0.77 cm. in the longitudinal axis. Peak systolic velocity in the left iliac artery measures 46.4 cm/sec. Drumbeat flow noted at proximal vessel. Unable to obtain doppler further distally. Known EIA occlusion. Right Iliac Artery Right iliac artery measures 0.98 x 1.06 cm. in the cross-sectional axis. Right iliac artery measures 0.97 cm. in the longitudinal axis. Peak systolic velocity in the right iliac artery measures 326.3 cm/sec. Procedure Aorta IVC Iliac vasculature or bypass grafts [id number]. The exam was diagnostic. Exam performed in department. VL/Abd Aortic/IVC Duplex scan Interpretation Summary Aorta normal and severe right MATT stenosis and left iliac occlusion. Ordering Physician: Nando Chávez Referring Physician: Raquel Siddiqui Performed By: Glen Reddy RVT
--- NOTE | 2023-05-18 07:44 | ADU_ITS ---
Reason For Study: S/P Angioplasty Right Velocities Left Velocities Ext. Iliac Artery, dist = 168.2 cm./sec. External Iliac distal = Known Occlusion. Right to Left fem/fem bypass noted. Common Femoral Artery, prox = 186.2 cm./sec. Prox anastomosis, 590.0 cm/sec. Supf. Femoral Artery, prox = 117.7 cm./sec. Prox graft, 164.4 cm/sec. Profunda Femoral Artery = 58.4 cm./sec. Mid graft, 172.6 cm/sec. Distal graft, 138.9 cm/sec. Distal anastomosis, 221.7 cm/sec. /US Art Duplex Bilat Lower Ext Interpretation Summary Severe stenosis inflow right to left femoral to femoral bypass. Ordering Physician: Nando Chávez Referring Physician: MD Nando Chávez Performed By: Glen Reddy RVT
== END | disposition home or self-care (01) ==
LOC: CVS 07:43
PROVIDERS: PCP Internal Medicine; Referring Provider Surgery Vascular Surgery; Visit Provider Surgery Vascular Surgery
DX: I70.213 Atherosclerosis of native arteries of extremities with intermittent claudication, bilateral legs (principal); I65.23 Occlusion and stenosis of bilateral carotid arteries; Z48.812 Encounter for surgical aftercare following surgery on the circulatory system
CPT/HCPCS: 93922; 93925; 93978

== ENCOUNTER → 2023-08-24 | Outpatient (CLI) | payer MEDICARE, OTHER, SELFPAY ==
[2023-08-24 11:21] LABS: Basophil# 0.07 X10^3/uL; Basophil% 0.9 % (0-1); Eosinophils% 3.6 % (0-5); Hematocrit 47.4 % (40-54); Hemoglobin 15.4 g/dL (13.0-16.5); Lymphocyte % 24.3 % (19-41); Mean Corp Hgb Conc 32.5 g/dL (32-36); Mean Corpuscular Hgb 30.1 pg (27.0-32.0); Mean Corpuscular Volume 92.8 fL (80-94); Mean Platelet Vol. 9.4 fl (6.2-12.0); Monocyte# 0.86 X10^3/uL; Monocyte% 10.4 % (0-10); NRBC Flagged by Analyzer 0 % (0-5); Neutrophil # 4.98 X10^3/uL (2.7-7.7); Neutrophil % 60.6 % (47-70); Platelet Count 233 K/mm3 (150-450); RBC Distribution Width CV 13.7 % (11.6-14.6); RBC Distribution Width SD 46.6 fl (35.1-43.9); Red Blood Count 5.11 M/mm3 (4.6-6.2); White Blood Count 8.2 K/mm3 (4.4-11.0)
[2023-08-24 11:44] LABS: Vitamin D,25 Hydroxy 27.4 ng/mL
[2023-08-24 15:15] LABS: Anion Gap 4 (5-15); BUN 18 mg/dL (7-18); BUN/Creat Ratio 15.8 RATIO (10-20); Calcium,Total 9.3 mg/dL (8.5-10.1); Chloride 110 mmol/L (98-107); Creatinine, Serum 1.14 mg/dL (0.70-1.30); EST Glomerular Filtration Rate 66 mL/min (>60); Est Glom Filt Rate - Afr Amer 80 mL/min (>60); Glucose 143 mg/dL (74-106); Potassium 4.5 mmol/L (3.5-5.1); Sodium Level 140 mmol/L (136-145); Thyroid Stim Hormone (TSH) 0.94 uIU/mL (0.358-3.74)
== END | disposition home or self-care (01) ==
LOC: LAB 10:27
PROVIDERS: PCP Internal Medicine; Referring Provider Nurse Practitioner Gerontology; Visit Provider Nurse Practitioner Gerontology
DX: R53.83 Other fatigue (principal); E55.9 Vitamin D deficiency, unspecified
CPT/HCPCS: 36415; 80048; 82306; 84443; 85025

== ENCOUNTER 2023-08-26 07:16 | Day surgery (SDC) | payer MEDICARE, OTHER, SELFPAY ==
[2023-08-26] VITALS (8 sets, daily range): BP systolic 54–156; BP diastolic 37–75; PULSE 49–63; RESP 16–18; TEMP 36.4–36.6; O2SAT 94–99; BMI 24.6
[2023-08-26 08:00] LABS: Bedside Glucose 110 mg/dL (74-106)
[2023-08-26] MEDS: Lactated Ringers 1,000 ML 15 ML IV (08:00)
--- NOTE | 2023-08-26 08:23 | HP.PCM_ITS ---
History and Physical Date of Admission: 08/26/23 Date of Service: 07/27/23 MR#: [id number] Acct: [id number] Name: MERRICK BRYAN Rep #: [id number] : 1945 Provider: Dr. Chaparro Hopkins MD Age/Sex: 77/M Location: [facility] Status: Signed Intake Vital Signs 07/14/2408:48 07/27/2413:25 Height 5 ft 10 in 5 ft 10 in Weight: 169 lb 6 oz 173 lb BMI 24.3 24.8 BP 120/72 135/78 H Blood Pressure Location Lt brachial Lt brachial Position Sitting Sitting Respiration 16 17 Pulse 81 72 Pulse Source Monitor Monitor Temp 97.3 F L 96.7 F L Temp Source Temporal Temporal Pulse Oximetry (%) 97 100 Oxygen Delivery Method room air room air Intake Visit Reasons: Umbilical Hernia Chief Complaint: umbilical hernia Is patient in pain?: No Allergies atorvastatin [From Lipitor] Adverse Reaction (Intermediate, Verified 07/27/23 14:26) Myalgias Medications amlodipine 5 mg tablet 5 mg PO BID 04/16/17 [History Confirmed 07/27/23] fosinopril 20 mg tablet 20 mg PO DAILY 04/16/17 [History Confirmed 07/27/23] multivitamin 1 tab PO DAILY 04/16/17 [History Confirmed 07/27/23] aspirin 81 mg tablet,delayed release (Adult Aspirin Regimen) 81 mg PO QDAY 01/06/18 [History Confirmed 07/27/23] rosuvastatin 10 mg tablet 10 mg PO DAILY 10/17/21 [History Confirmed 07/27/23] metoprolol tartrate 50 mg tablet 50 mg PO BID #60 tabs 04/27/22 [Rx Confirmed 07/27/23] clopidogrel 75 mg tablet See Rx Instructions .Route .COMPLEX #90 tabs 09/07/22 [Rx Confirmed 07/27/23] psyllium husk 3.4 gram/5.4 gram oral powder (Metamucil) 1 tbsp PO DAILY #660 grams 11/03/22 [Rx Confirmed 07/14/23] rifaximin 550 mg tablet 550 mg PO TID #42 tabs 07/14/23 [Rx Confirmed 07/14/23] pantoprazole 40 mg tablet,delayed release (Protonix) 40 mg PO DAILY #30 tabs 07/27/23 [Rx Confirmed 07/27/23] [facility] Medical History 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 Chronic back pain Essential hypertension History of non-ST elevation myocardial infarction (NSTEMI) Hyperlipidemia Hypertension Lumbar stenosis NSVT (nonsustained ventricular tachycardia) Overweight (BMI 25.0-29.9) Peripheral arterial disease Prinzmetal angina Type 2 diabetes mellitus Surgical History H/O bilateral cataract extraction History of back surgery History of left heart catheterization (~04/02/22) S/P femoral-femoral bypass surgery Spinal cord stimulator status Stented coronary artery (~09/21/03) Family History Father , of cancer Myocardial infarction, Onset Age: 70 Cancer kidneyMother , age 66 Bleeding in brain due to brain aneurysmBrother Myocardial infarction, Onset Age: 62 CAD (coronary artery disease) Social History household members: spouse current occupational status: employed current occupation: [employer] Smoking Status: Former smoker quit date: 06/14/01 pack-years: 20 Electronic Cigarette Use: not used how long ago did patient quit smokin alcohol intake: never substance use type: does not use do you feel safe at home: Yes HPI HPI HPI: Patient is a 77-year-old male who presents for evaluation of a new umbilical hernia as well as complaints of greater than a year of bloating. Patient states that he has had CT, x-rays, and a colonoscopy but no cause has been identified for his bloating symptoms. He shares that the colonoscopy was his most recent testing in May of last year and he was found to have diverticulosis and advised to simply eat more fiber. He flatly states that he is not sure how much more time he has of this life but he wants to live it better than he is now. He notes that the bloating seems to be worse after eating supper. He also identifies May 2022 at the time which his symptoms began. He shares he was recovering from the placement of a spinal cord stimulator when he experienced ur inary retention and required a Olivares catheter placement. Following this event he believes that is when his symptoms began. He notes that his expected 1 day hospital stay was protracted to 5 days and ever since that time he has had difficulty. He notes that in addition to the bloating he does have some pain around his bellybutton. 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 He states that he follows up with Dr. Chávez of vascular surgery and was told in May that he should be reevaluated in 6 months for possible cleanout of this bypass graft. Mr. Bryan denies any associated symptoms of nausea or vomiting. He also denies any regular belching or gas. He does complain and remarks that his reflux has been worse in recent months. He shares that he must get up a lot in the middle the night because of the symptoms. He estimates the frequency to curve 3-4 times per week. He is simply taking [id number] Tums when he experiences the symptoms and denies any use of PPI medication. He denies any experience of heartburn. His caffeine intake is limited to 1 cup of coffee daily. He notes that he otherwise drinks some pop but this is always caffeine and sugar-free. Mr. Bryan has a history of a diabetes diagnosis but lost 18 pounds last year after completely cutting out sugar and this has led him to managing this disease without a medication requirement. Mr. Bryan states that he normally takes dinner at 7 PM but does not retire to bed until approximately 11 PM each night. He does not regularly prop his head other than using a pillow. Mr. Bryan confirms that the finding of a new umbilical hernia was an incidental finding during CT imaging for his complaints of bloating. Is also apparent that he underwent gastric emptying evaluation January 2023 which was read as abnormal and slow. ROS General General: Yes fatigue; No weight change, appetite, colon cancer, breast cancer or weakness HEENT HEENT: No difficulty swallowing, eye injury, eye surgery, swollen glands or hoarseness Endo Endocrine: Yes diabetes mellitus; No thyroid disease, thyroid cancer, Hair loss, heat intolerance or cold intolerance Skin Skin: No rash or changing moles Musc Musculoskeletal: Yes back problems and arthritis; No rheumatoid arthritis, gout or joint pain Cardio Cardiovascular: Yes high blood pressure and heart stent; No murmur, pacemaker, heart disease, atrial fibrillation, heart attack, palpitations, shortness of breat with exertion or chest pain Psych Psychiatric: No depression, anxiety or hearing voices Resp Respiratory: No shortness of breath, No sleep apnea, No cough, No COPD, No asthma, No emphysema and No wheezing Gastro Gastrointestinal: Yes abdominal pain, No nausea or vomiting, No diarrhea, No constipation, No blood in stool, No acid reflux, No hemorrhoids, No ulcers, No gallbladder problem and No black,tarry stools Artie Hematologic: Yes blood thinners, No blood disorders, No bleeding, No anemia and No blood clots Neuro Neurologic: No system reviewed and no additional complaints, except as documented, No as per HPI, No abnormal gait, No abnormal hearing, No abnormal movements, No abnormal speech, No behavioral changes, No burning sensations, No confusion, No convulsions, No disequilibrium, No dizziness, No localized weakness, No frequent falls, No headache(s), No lack of coordination, No loss of vision, No memory loss, No numbness, No other visual disturbances, No radicular pain, No restless legs, No sensory deficit, No syncope, No tingling, No tremor(s), No weakness and No other Exam Const General: cooperative and anxious Orientation: alert, awake and oriented x3 Resp Effort & Inspection: normal respiratory effort GI Other: Nondistended, soft, mildly tender to palpation over the right-sided abdominal quadrants. Umbilical hernia is readily visible, however when it is palpated and appears to contain a soft tuft of fatty tissue that is at least partially reducible. Patient describes some sharp pain when traction is placed on these hernia contents. He denies this pain has been the pain that he experiences in association with his abdominal bloating. Assessment and Plan Assessment and Plan (1) Umbilical hernia: Status: Acute Comment: This is a 77-year-old male with an incidental finding of umbilical hernia that measures 7 mm x 8 mm on recent CTA imaging. It shows that it contains a small tuft of fat. Indeed, on exam patient has some fatty tissue within this hernia that is soft and at least partially reducible. While he has some sharp discomfort with this exam it is not the same discomfort of which he complains in association with his bloating. Therefore, I find it unlikely that his symptoms are arising from his hernia and given its small size and is otherwise significant medical risk do not see a benefit in pursuing operative repair of this hernia at this time. This impression was clearly shared with Mr. Bryan. Plan: Watchful waiting/surveillance of umbilical hernia (2) Acid reflux: Status: Acute Comment: Patient with progressive symptoms which she finds distressing 3-4 times per week. He is not presently on any PPI medication. He takes Tums symptomatically. With his progressive reflux and bloating complaints I find his history somewhat suspicious for possible H. pylori or dyspepsia. Therefore, I have recommended we pursue EGD with biopsy. Mr. Bryan is receptive of this recommendation as he is eager to find out the cause for the symptoms as described in his HPI. He will need to have his Plavix held for 5 days in anticipation of his procedure. We will look for approval to hold this antiplatelet. In the interim, I have advised him to begin PPI medication since it is likely going to be a month or so until we are able to pursue an EGD. Plan: ? EGD with biopsy (will hold Plavix with permission) ? Begin Protonix 40 mg daily x 30 days (3) Bloating: Plan: EGD as above Orders: Orders EGD 08/26/23 Medications: Refilled pantoprazole (Protonix) 40 mg PO DAILY 30 tabs 3RF I have examined the patient the following changes are noted: Mr. Bryan presents today with his family. He shares that the Protonix that he started following our visit has been efficacious in reducing his reflux symptoms. He confesses that he does remain bloated. He otherwise denies any new diagnoses, but did meet with cardiology recently and plans are to proceed with a ph armacologic stress test (since he is unable to physically complete the stress test due to arthritic pains). He denies any new chest pain or shortness of breath, however. Will now proceed for EGD as discussed above.
--- NOTE | 2023-08-26 08:30 | EGD_PTH ---
PATHOLOGY RESULTS PATIENT: MERRICK BRYAN LOC: EN U#:[id number] AGE/SX: 77/M ROOM: RE08/26/[address]: Dr. Chaparro Hopkins MD : 1945 BED: DIS: 08/26/2023 SPEC #: [id number] RECD: 08/26/23 12:29 STATUS: CITLALY GAGANDEEP #: [id number] BEULAH: 08/26/23 08:[address]: Chaparro Hopkins DEPT: SURGICAL PATHOLOGY RECD BY: Sariah Barba ENTERED: 08/26/23 12:30 SP TYPE: EGD BIOPSY OT DR: Dr. Raquel Siddiqui MD Tissues: Duodenum, NOS Gastric mucous membrane Gastric mucous membrane Esophageal mucous membrane Esophageal mucous membrane Procedures: Special Stain Group II Surgery Specimen Level IV Alcian Blue/PAS (control) HEADER OPERATION: EGD, biopsy PRE-OP DIAGNOSIS: Umbilical hernia, Acid reflux, Bloating TISSUE SUBMITTED: A. Duodenal nodule second portion biopsy, B. Antral biopsy, C. Lesser curvature mucosal biopsy, D. Gastroesophageal junction biopsy, E. Lower third esophagus biopsy MICROSCOPIC DIAGNOSIS A. Duodenal nodule second portion, biopsy; A fragment of small intestinal mucosa with focal submucosal lymphangiectasia. See comment. B. Antral, biopsy; Mild to moderate gastritis. See microscopic description and comment. C. Lesser curvature mucosal, biopsy; Mild to moderate gastritis. Focal intestinal metaplasia (goblet cell metaplasia). See microscopic description and comment. D. Gastroesophageal junction, biopsy; A fragment of gastroesophageal mucosa with moderate chronic inflammation and mild acute inflammation. Focal mucosal congestion and hemorrhage. Intestinal metaplasia (goblet cell metaplasia) not identified. See comment. E. Lower third esophagus, biopsy; A fragment of benign squamous mucosa. / 08/27/2023 COMMENT B. The results of immunohistochemistry for Helicobacter pylori will be reported separately ([id number]). C. Alcian blue/PAS stain with matched control is used in the evaluation of the specimen. D. Alcian blue/PAS stain with matched control is used in the evaluation of the specimen. MICROSCOPIC DESCRIPTION Slides are reviewed. B. The specimen shows fragments of gastric mucosa with chronic inflammatory cell infiltrates in the lamina propria consisting of lymphocytes and plasma cells, consistent with mild to moderate chronic gastritis. Focal mucosal congestion is also noted. C. The specimen shows fragments of gastric mucosa with chronic inflammatory cell infiltrates in the lamina propria consisting of lymphocytes and plasma cells, consistent with mild to moderate chronic gastritis. Focal mucosal congestion is also noted. Focal intestinal metaplasia (goblet cell metaplasia), is also noted. GROSS DESCRIPTION A. Received in fixative is one container labeled with the patient's name and designated Duodenal nodule second portion. The specimen consists of one irregular fragment of light nichols soft tissue that measures 0.4 x 0.3 x 0.1 cm. The specimen is totally submitted in one cassette. B. Received in fixative is one container labeled with the patient's name and designated Antral biopsy. The specimen consists of two irregular fragments of light nichols soft tissue that in aggregate measure 0.4 x 0.2 x 0.1 cm. The specimen is totally submitted in one cassette. C. Received in fixative is one container labeled with the patient's name and designated Lesser curvature mucosal biopsy. The specimen consists of one irregular fragment of light nichols soft tissue that measures 0.3 x 0.3 x 0.1 cm. The specimen is totally submitted in one cassette. D. Received in fixative is one container labeled with the patient's name and designated Gastroesophageal junction. The specimen consists of one irregular fragment of light nichols soft tissue that measures 0.3 x 0.2 x 0.1 cm. The specimen is totally submitted in one cassette. E. Received in fixative is one container labeled with the patient's name and designated Lower third esophagus biopsy. The specimen consists of one irregular fragment of light nichols soft tissue that measures 0.4 x 0.4 x 0.1 cm. The specimen is totally submitted in one cassette. ALKA/ 08/26/2023 TC:3 CPT: 41801l1, 90880A9
--- NOTE | 2023-08-26 08:30 | IMM_PTH ---
PATHOLOGY RESULTS PATIENT: MERRICK BRYAN LOC: EN U#:[id number] AGE/SX: 77/M ROOM: RE08/26/[address]: Dr. Chaparro Hopkins MD : 1945 BED: DIS: 08/26/2023 SPEC #: [id number] RECD: 08/26/23 13:03 STATUS: CITLALY RETracee #: [id number] BEULAH: 08/26/23 08:[address]: Chaparro Hopkins DEPT: IMMUNOHISTOCHEMISTRY RECD BY: Lena Dozier ENTERED: 08/26/23 13:04 SP TYPE: IMMUNO OTHR DR: Dr. Raquel Siddiqui MD Tissues: Stomach, NOS Procedures: H Pylori (initial) PHYSICIAN & INSTITUTION [place] [address] SPECIMEN INFORMATION: Tissue Source: B. Antrum biopsy Clinical Info: Umbilical hernia, Acid reflux, Bloating Specimen Number: [id number] CPT code: 59911 METHODOLOGY: Deparaffinized sections of prefer/formalin-fixed tissue or PAP/DQ stained slides are incubated with monoclonal/polyclonal antibodies/oligonucleotide probes. Localization is made via biotin free immunoperoxidase method. Appropriate controls are performed and reacted as expected. Results on target cell population are indicated in the following table: RESULTS: ANTIBODY / CLONE RESULT Block B H Pylori (polyclonal) negative These tests were developed and their performance characteristics determined by [facility]. They may not have been cleared or approved by the U.S. Food and Drug Administration. The FDA has determined that such clearance or approval is not necessary. The above immunohistochemical/dualISH markers are ordered and reviewed by the Pathologist. INTERPRETATION: B. Antrum, biopsy: Negative for Helicobacter pylori organisms. SJ:ana 08/27/2023
--- NOTE | 2023-08-26 09:20 | OP.CCLET_ITS ---
08/26/2023 Raquel Siddiqui Md Re : Upper GI endoscopy procedure for Steven Hodges Dear Chen This procedure was performed on August. My impressions and recommendations are as follows: Impressions : - Mucosal nodule found in the duodenum. Biopsied. - Mucosal changes suspicious for gastritis. Biopsied. - Erythematous mucosa in the antrum. Biopsied. - Small hiatal hernia. No specimens collected. - Z-line regular, 40 cm from the incisors. Biopsied. - Mucosal nodule found in the esophagus. Biopsied. Recommendations : - Discharge patient to home (via wheelchair). - Full liquid diet for 2 days. - No aspirin, ibuprofen, naproxen, or other non-steroidal anti-inflammatory drugs for 3 days after biopsy. - Post-Procedure Resumption of Antiplatelet Medications: Restart Plavix (clopidogrel) in 3 days 75 mg PO daily. Refer to managing physician for further adjustment of therapy. - Await pathology results. - Telephone my office for pathology results in 1 week. My findings are described in the full procedure note, which is enclosed. If I can be of further assistance, please feel free to contact me at Doctor phone number(s): , Work: . Sincerely, Chaparro Hopkins MD 08/26/2023 9:19:51 AM This report has been signed electronically.
--- NOTE | 2023-08-26 09:20 | OP.EGD_ITS ---
Patient Name: Steven Hodges Procedure Date: 08/26/2023 8:18 AM Date of : 1945 Age: 77 Procedure: Upper GI endoscopy Indications: Suspected esophageal reflux, Helicobacter pylori status not known, Abdominal bloating Providers: Chaparro Hopkins MD Referring MD: Raquel Siddiqui Md Medicines: See the Anesthesia note for documentation of the administered medications Patient Profile: Refer to note in patient chart for documentation of history and physical. Complications: No immediate complications. Estimated blood loss: Minimal. Procedure: Pre-Anesthesia Assessment: - The heart rate, respiratory rate, oxygen saturations, blood pressure, adequacy of pulmonary ventilation, and response to care were monitored throughout the procedure. After obtaining informed consent, the endoscope was passed under direct vision. Throughout the procedure, the patient's blood pressure, pulse, and oxygen saturations were monitored continuously. The Endoscope was introduced through the mouth, and advanced to the second part of duodenum. The upper GI endoscopy was somewhat difficult due to excessive bleeding. Successful completion of the procedure was aided by performing the maneuvers documented (below) in this report. The patient tolerated the procedure well. Scope In: 8:30:25 AM Scope Out: 9:06:46 AM Total Procedure Duration Time 0 hours 36 minutes 21 seconds Findings: A single 2 mm mucosal nodule with a localized distribution was found in the second portion of the duodenum. Biopsies were taken with a cold forceps for histology. Estimated blood loss: 3 mL requiring treatment with placement of hemostatic clip(s). Diffuse moderate inflammation characterized by erosions, erythema and shallow ulcerations was found in the entire examined stomach. Biopsies were taken with a cold forceps for histology. Estimated blood loss was minimal. Diffuse moderately erythematous mucosa without bleeding was found in the gastric antrum. Biopsies were taken with a cold forceps for Helicobacter pylori testing. A small hiatal hernia was present. No biopsies or other specimens were collected for this exam. The Z-line was regular and was found 40 cm from the incisors. Biopsies were taken with a cold forceps for histology. Estimated blood loss was minimal. A few 3 mm mucosal nodules with a localized distribution were found in the lower third of the esophagus. Biopsies were taken with a cold forceps for histology. Estimated blood loss: 2 mL requiring treatment with coagulation. Impression: - Mucosal nodule found in the duodenum. Biopsied. - Mucosal changes suspicious for gastritis. Biopsied. - Erythematous mucosa in the antrum. Biopsied. - Small hiatal hernia. No specimens collected. - Z-line regular, 40 cm from the incisors. Biopsied. - Mucosal nodule found in the esophagus. Biopsied. Recommendation: - Discharge patient to home (via wheelchair). - Full liquid diet for 2 days. - No aspirin, ibuprofen, naproxen, or other non-steroidal anti-inflammatory drugs for 3 days after biopsy. - Post-Procedure Resumption of Antiplatelet Medications: Restart Plavix (clopidogrel) in 3 days 75 mg PO daily. Refer to managing physician for further adjustment of therapy. - Await pathology results. - Telephone my office for pathology results in 1 week. Procedure Code(s): --- Professional --- 48714, Esophagogastroduodenoscopy, flexible, transoral; with biopsy, single or multiple Diagnosis Code(s): --- Professional --- K31.89, Other diseases of stomach and duodenum K44.9, Diaphragmatic hernia without obstruction or gangrene K22.89, Other specified disease of esophagus R14.0, Abdominal distension (gaseous) CPT copyright 2021 [employer]. All rights reserved. The codes documented in this report are preliminary and upon automatic quilling machine operator review may be revised to meet current compliance requirements. Chaparro Hopkins MD 08/26/2023 9:19:51 AM This report has been signed electronically. Number of Addenda: 0 Note Initiated On: 08/26/2023 8:18 AM
== END 2023-08-26 10:13 | disposition home or self-care (01) ==
LOC: EN 07:19 → AC 07:58
PROVIDERS: PCP Internal Medicine; Referring Provider Internal Medicine; Visit Provider Surgery
PROC: 0DJ08ZZ Inspection of Upper Intestinal Tract, Via Natural or Artificial Opening Endoscopic (ICD-10-PCS; CPT 43235; principal; 2023-08-26 08:25)
DX: K31.89 Other diseases of stomach and duodenum (principal); E11.9 Type 2 diabetes mellitus without complications; K44.9 Diaphragmatic hernia without obstruction or gangrene; K21.9 Gastro-esophageal reflux disease without esophagitis; K29.70 Gastritis, unspecified, without bleeding; G89.29 Other chronic pain; I10 Essential (primary) hypertension; I25.10 Atherosclerotic heart disease of native coronary artery without angina pectoris; I25.2 Old myocardial infarction; E66.9 Obesity, unspecified; E78.00 Pure hypercholesterolemia, unspecified; R14.0 Abdominal distension (gaseous); Z79.82 Long term (current) use of aspirin; Z79.899 Other long term (current) drug therapy; Z79.01 Long term (current) use of anticoagulants; Z95.5 Presence of coronary angioplasty implant and graft; Z87.891 Personal history of nicotine dependence
CPT/HCPCS: 43239; 82962; 88305; 88313; 88342; J7120; J2405

== ENCOUNTER → 2023-09-14 | Outpatient (CLI) | payer MEDICARE, OTHER, SELFPAY ==
--- NOTE | 2023-09-14 13:43 | STRESSREP ---
Stress Test Report Pharmacologic myocardial perfusion stress test. 77-year-old man with a history of coronary disease and fatigue Resting EKG demonstrates sinus rhythm with a rate of 73 bpm. Resting blood pressure is 136/80 mmHg. 0.4 mg of regadenoson was infused per usual protocol followed by rapid intravenous saline flush injection. Continuous EKG monitoring was performed. The maximum heart rate was 82 bpm which was 56% of max impacted heart rate the maximum workload was 1 metabolic equivalent. At rest there were no ST or T wave changes noted to suggest ischemia and at peak infusion nonspecific ST changes were noted which did not meet the criteria for ischemia. No clinical angina is noted. The final blood pressure was 130/70 mmHg. Myocardial perfusion protocol. 11.8 mCi of technetium 99m sestamibi was injected at rest. 0.4 mg of regadenoson was infused per usual protocol. At peak infusion 36 mCi of technetium 99m sestamibi was injected stress images were obtained stress and rest images were reconstructed and compared in the short axis vertical long and horizontal long axis. Gated images were also obtained. Perfusion SPECT analysis: Review of the stress images demonstrate normal uptake of tracer noted in all areas of the myocardium. The resting images similar demonstrated normal uptake of tracer noted in all areas of the myocardium. No areas of reversibility are noted to suggest ischemia and no previous infarct is noted. Gated SPECT analysis: The gated ejection fraction is 73%. Conclusion: Normal pharmacologic myocardial perfusion stress test. Preserved ejection fraction.
== END | disposition home or self-care (01) ==
LOC: CVS 06:00
PROVIDERS: PCP Internal Medicine; Referring Provider Nurse Practitioner Gerontology; Visit Provider Nurse Practitioner Gerontology
DX: I25.111 Atherosclerotic heart disease of native coronary artery with angina pectoris with documented spasm (principal); R53.83 Other fatigue
CPT/HCPCS: 78452; 93017; A9500; A4216; J2785

== ENCOUNTER → 2023-10-28 | Outpatient (CLI) | payer MEDICARE, OTHER, SELFPAY ==
[2023-10-28 12:32] LABS: ALB/GLOB Ratio 1.2 RATIO (0.9-2.4); AST(SGOT) 23 U/L (15-37); Alanine Aminotransfer ALT/SGPT 30 U/L (16-61); Alkaline Phosphatase 75 U/L (45-117); Anion Gap 5 (5-15); BUN 26 mg/dL (7-18); BUN/Creat Ratio 21.8 RATIO (10-20); Chloride 111 mmol/L (98-107); Cholesterol 135 mg/dL (200); Creatinine, Serum 1.19 mg/dL (0.70-1.30); EST Glomerular Filtration Rate 63 mL/min (>60); Est Glom Filt Rate - Afr Amer 76 mL/min (>60); Globulin 3.3 g/dL (2.2-4.2); Glucose 123 mg/dL (74-106); High Density Lipoprotein 49 mg/dL; Potassium 4.3 mmol/L (3.5-5.1); Protein, Total 7.3 g/dL (6.4-8.2); Sodium Level 140 mmol/L (136-145); Triglycerides 126 mg/dL; Very Low Density Lipoprotein 25 mg/dL (5-40)
== END | disposition home or self-care (01) ==
PROVIDERS: PCP Internal Medicine; Visit Provider Internal Medicine
DX: I25.111 Atherosclerotic heart disease of native coronary artery with angina pectoris with documented spasm (principal); I10 Essential (primary) hypertension
CPT/HCPCS: 36415; 80053; 80061

== ENCOUNTER → 2023-12-28 | Outpatient (CLI) | payer MEDICARE, OTHER, SELFPAY ==
--- NOTE | 2023-12-28 07:48 | ADU_ITS ---
Reason For Study: aftercare, s/p angioplasty R [employer] into fem-fem bypass graft Right Graft Findings R inflow artery 241.7 cm/s Prox anast 507.8 cm/s Prox graft 364.8 cm/s Mid graft 173.4 cm/s Dist graft 152.7 cm/s Dist anast 242.9 cm/s Outflow 203.6 cm/s. Procedure The exam was diagnostic. Exam performed in department. VL/US Art Duplex Bilat Lower Ext Interpretation Summary Severe stenosis into femoral to femoral bypass. Ordering Physician: Nando Chávez Referring Physician: Nando Chávez Performed By: Alejandro Felix RVT and Student
--- NOTE | 2023-12-28 07:48 | ART_ITS ---
Reason For Study: atherosclerosis with claudication, aortoiliac occlusive disease Procedure A bilateral lower extremity continuous wave Doppler with analog waveform analysis and ankle brachial indexes. Left Segmental Pressures Left brachial= 138mmHg. Left posterior tibial artery = 129mmHg. Left dorsalis pedis artery = 132mmHg. Left digit = 74 mmHg. The left dorsalis pedis waveforms are triphasic. The left posterior tibial artery waveforms are triphasic. Right Segmental Pressures Right brachial= 146mmHg. Right posterior tibial artery = 158mmHg. Right dorsalis pedis artery = 153mmHg. Right digit = 108 mmHg. The right dorsalis pedis waveforms are triphasic. The right posterior tibial artery waveforms are triphasic. Indices The right ankle brachial index by the dorsalis pedis is 1.05. The right ankle brachial index by the posterior tibial artery is 1.08. The right digital-brachial index is .74. The left ankle brachial index by the posterior tibial artery is .88. The left ankle brachial index by the dorsalis pedis is .9. The left digital-brachial index is .51. VL/Ankle Brachial Index Interpretation Summary Resting ankle-brachial indices appear bilaterally normal. Ordering Physician: Nando Chávez Performed By: Alejandro Felix RVT and Student
--- NOTE | 2023-12-28 07:48 | AAVD_ITS ---
Reason For Study: aortoiliac occlusive disease Aorta Measurements Aorta Doppler Measurements Proximal aorta measures1.93 x 1.98cm. in cross- Peak systolic flow velocities within the proximal sectional axis. aorta measure 108.6 cm/sec. Proximal aorta measures1.82cm. in longitudinal Peak systolic flow velocities within the mid aorta axis. measure 83.2 cm/sec. Mid aorta measures1.36 x 1.5cm. in cross-sectionalPeak systolic flow velocities within the distal axis. aorta measure 74.1 cm/sec. Mid aorta measures1.36cm. in longitudinal axis. Distal aorta measures1.47 x 1.51cm. in cross- sectional axis. Distal aorta measures1.4cm. in longitudinal axis. Left Iliac Artery Left iliac artery measures .74 x .74 cm. in the cross-sectional axis. Left iliac artery measures .76 cm. in the longitudinal axis. Peak systolic velocity in the left iliac artery measures 82.5 cm/sec. Drumbeat flow noted at proximal vessel. Unable to obtain doppler further distally. Known Iliac occlusion. Right Iliac Artery Right iliac artery measures .87 x .83 cm. in the cross-sectional axis. Right iliac artery measures .92 cm. in the longitudinal axis. Peak systolic velocity in the right iliac artery measures 211.4 cm/sec. Procedure Aorta IVC Iliac vasculature or bypass grafts 20490. The exam was diagnostic. Exam performed in department. VL/Abd Aortic/IVC Duplex scan Interpretation Summary No aortoiliac aneurysm or stenosis seen. Ordering Physician: Nando Chávez Referring Physician: Nando Chávez Performed By: Alejandro Felix RVT and Student
--- NOTE | 2023-12-28 07:48 | CDU_ITS ---
Reason For Study: carotid stenosis Rt. Velocities/BP Lt. Velocities/BP Prox CCA 60.9/6.9 cm/sec. Prox CCA 96.1/19.4 cm/sec. Mid CCA 73.2/13.0 cm/sec. Mid CCA 81.8/16.7 cm/sec. Dist CCA 74.4/16.7 cm/sec. Dist CCA 80.6/16.7 cm/sec. Prox ICA 89.1/16.7 cm/sec. Prox ICA 161.6/34.2 cm/sec. Mid ICA 67.0/13.0 cm/sec. Mid ICA 135.2/32.0 cm/sec. Dist ICA 45.9/14.7 cm/sec. Dist ICA 86.9/17.5 cm/sec. Rt. ICA/CCA = 1.2. Lt. ICA/CCA = 2.0. Prox ECA 276.7/14.9 cm/sec. Prox ECA 124.2/10.1 cm/sec. Rt. Vert. 76.9/21.6 cm/sec. Lt. Vert. 38.9/6.8 cm/sec. Right Extracranial There is intimal thickening but no significant atherosclerotic plaque noted in the right common carotid artery. There is heterogeneous, irregular atherosclerotic plaque noted in the right internal carotid artery. There is heterogeneous, irregular atherosclerotic plaque noted in the right external carotid artery. Antegrade flow is noted in the right vertebral artery. Left Extracranial There is heterogeneous, irregular atherosclerotic plaque noted in the left common carotid artery. There is heterogeneous, irregular atherosclerotic plaque noted in the left internal carotid artery. There is heterogeneous, irregular atherosclerotic plaque noted in the left external carotid artery. Antegrade flow is noted in the left vertebral artery. Procedure Carotid Duplex 82097. This is a Carotid Duplex examination using B-mode, color flow and specral Doppler. The exam was diagnostic. Exam performed in department. VL/Carotid Duplex Ultrasound Interpretation Summary Mild (<50%) stenosis right extracranial internal carotid. Moderate (50-69%) sam nosis left extracranial internal carotid. Flow within the vertebral arteries is antegrade bilaterally. Ordering Physician: Nando Chávez Referring Physician: Nando Chávez Performed By: Alejandro Felix RVT and Student
== END | disposition home or self-care (01) ==
LOC: CVS 07:47
PROVIDERS: PCP Internal Medicine; Referring Provider Surgery Vascular Surgery; Visit Provider Surgery Vascular Surgery
DX: I65.23 Occlusion and stenosis of bilateral carotid arteries (principal); I74.09 Other arterial embolism and thrombosis of abdominal aorta; Z48.812 Encounter for surgical aftercare following surgery on the circulatory system; I70.213 Atherosclerosis of native arteries of extremities with intermittent claudication, bilateral legs
CPT/HCPCS: 93880; 93922; 93925; 93978

== ENCOUNTER 2024-04-12 10:20 | Emergency (ER) | payer MEDICARE, OTHER, SELFPAY ==
[2024-04-12 10:20] VITALS: BP 168/62; PULSE 62; RESP 18; TEMP 36.5; O2SAT 99; BMI 23.0
--- NOTE | 2024-04-12 12:43 | RAD_ITS ---
STUDY: X-RAY - PELVIS REASON FOR EXAM: Male, 78 years old. SI Pain TECHNIQUE: One view of the pelvis was obtained. COMPARISON: None. FINDINGS: There is a non-specific bowel gas pattern. Normal visualized soft tissue structures. Status post fusion at the L5-S1 level. Normal bilateral iliac wings, sacroiliac joints and visualized sacrum. Normal visualized bilateral superior and inferior pubic rami. Normal pubic symphysis. Normal ischial tuberosities. Normal visualized right femoral head. Normal right acetabulum. Normal right hip joint. Normal visualized left femoral head. Normal left acetabulum. Normal left hip joint. RAD/Pelvis 1 or 2 Views IMPRESSION: Status post fusion at the L5-S1 level. No acute abnormality is seen. Electronically Signed: Abel Matthews MD at 13:39 EDT ,
--- NOTE | 2024-04-12 12:43 | RAD_ITS ---
STUDY: X-RAY - LUMBAR SPINE REASON FOR EXAM: Male, 78 years old. Right-sided posterior pelvic/lumbar pain. TECHNIQUE: 3 view(s) of the lumbar spine were obtained. COMPARISON: Comparison is made with prior study February 16, 2024. FINDINGS: Normal lumbar lordosis. There is no substantial scoliosis. There is a normal alignment of the vertebrae. The patient is status post screw and zuly fixation at the L5-S1 level. Marked degree of displacement at the L5-S1 level. Stable facet joint osteoarthritis. Stable right-sided epidural catheter. RAD/Lumbar Spine 2 or 3 Views IMPRESSION: Degenerative changes of the spine, as detailed above. Stable fusion at the L5-S1 level. Electronically Signed: Abel Matthews MD at 13:39 EDT ,
--- NOTE | 2024-04-12 13:29 | EDS_ITS ---
HPI History of Present Illness Chief Complaint: Back Informant: patient Narrative Narrative: 78-year-old male presenting to the emergency room with chief complaint of low back pain. Patient states that he went to get up off the couch yesterday and in the process of standing up and twisting developed a severe pain in the right low back. He notes he has had prior lumbar fusion and a spinal stimulator put in. Recently (January 2024) a stimulator was removed but the wires left. The patient states that as long as he is remaining still he feels okay however when he goes to move he gets pain in that very localized spot. Patient denies any radicular symptoms. No bowel or bladder dysfunction. No fevers. He is due to see pain management on Wednesday of next week. 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 Lumbar stenosis Chronic back pain Overweight (BMI 25.0-29.9) Hyperlipidemia Hypertension Home Medications ?Medication ?Instructions ?Recorded ?Last Taken ?Type amlodipine 5 mg tablet 5 mg PO BID 04/16/17 08/26/23 History fosinopril 20 mg tablet 20 mg PO DAILY 04/16/17 08/26/23 History multivitamin 1 tab PO DAILY 04/16/17 Unknown History aspirin 81 mg tablet,delayed 81 mg PO QDAY 01/06/18 08/25/23 History release (Adult Aspirin Regimen) rosuvastatin 10 mg tablet 10 mg PO DAILY 10/17/21 Unknown History metoprolol tartrate 50 mg tablet 50 mg PO BID #60 tabs 04/27/22 08/26/23 Rx clopidogrel 75 mg tablet See Rx Instructions .Route 11/29/23 Unknown Rx .COMPLEX #90 tabs lidocaine 5 % topical patch 1 patch topical DAILY PRN pain #15 04/12/24 Unknown Rx (Lidoderm) ea oxycodone-acetaminophen 5 mg-325 1 tab PO Q6H PRN PRN Pain 3 days 04/12/24 Unknown Rx mg tablet #12 TABLETS Allergy/AdvReac Type Severity Reaction Status Date / Time atorvastatin (From Lipitor) AdvReac Intermediate Myalgias Verified 03/08/24 09:41 Family History Father , of cancer Myocardial infarction, Onset Age: 70 Cancer kidney Mother , age 66 Bleeding in brain due to brain aneurysm Brother Myocardial infarction, Onset Age: 62 CAD (coronary artery disease) Surgical History H/O bilateral cataract extraction Spinal cord stimulator status History of back surgery S/P femoral-femoral bypass surgery Stented coronary artery (~09/21/03) History of left heart catheterization (~04/02/22) Social History household members: spouse current occupational status: employed current occupation: [employer] Smoking Status: Former smoker quit date: 06/14/01 pack-years: 20 Electronic Cigarette Use: not used how long ago did patient quit smokin alcohol intake: never substance use type: does not use do you feel safe at home: Yes ROS ROS ED Constitutional Constitutional ED: Denies chills, fever(s) or weight loss Eyes Eyes: Denies change in vision or diplopia ENT ENT ED: Denies ear pain, rhinorrhea or sore throat Cardiovascular Cardiovascular: Denies chest pain, orthopnea, palpitations or racing heartbeat Respiratory/Chest Respiratory/Chest: Denies cough, dyspnea or orthopnea Gastrointestinal Gastrointestinal: Denies abdominal pain, diarrhea, nausea or vomiting Genitourinary Genitourinary ED: Denies dysuria, hematuria or urinary frequency Musculoskeletal Musculoskeletal: Reports back pain; Denies arthralgias or myalgias Integumentary Denies abscess or rash Neurologic Neurologic: Denies headache(s), paresthesias or weakness Psychiatric Psychiatric: Denies anxiety, depression, suicidal ideation or suicidal thoughts Endocrine Endocrinology: Denies polydipsia, polyphagia or polyuria Allergic/Immunologic Allergic/Immunologic ED: Denies mouth swelling, tongue swelling or urticaria EXAM Physical Exam Const Vital Signs: 04/12/24 10:20 04/12/24 13:36 04/12/24 14:19 Temperature 97.7 F L 96.9 F L 96.9 F L Temperature Source Temporal Temporal Pulse Rate 62 58 L 58 L Respiratory Rate 18 16 16 Blood Pressure 168/62 H 143/74 H 143/74 H Blood Pressure Mean 97 97 97 Pulse Ox 99 99 99 Oxygen Delivery Method Room Air Room Air Positive well nourished and well developed General Appearance ED: well developed and NAD HEENT Reports normocephalic, head/scalp atraumatic and moist mucous membranes Eyes PERRL and EOMs intact bilaterally Neck no lymphadenopathy, supple and no JVD Resp normal respiratory effort and clear to auscultation bilaterally Cardio regular rate, regular rhythm and no murmurs GI normal to inspection, nondistended, normoactive bowel sounds and non-tender Palpation: soft Back/Spine no CVA tenderness and normal ROM Back/Spine Narrative: Patient has very focal tenderness to palpation over the right SI joint. There is no significant lumbar or lumbar paraspinal musculature tenderness. There is no overlying erythema or tissue texture changes to suggest infection. There is no rash. Patient does have painful range of motion strictly twisting. There are multiple well-healed midline surgical incisions. Extremity normal to inspection General Extremety ED: Negative for edema General Extremity: Negative for edema Neuro oriented x3 and CN's II-XII intact bilaterally Sensorium / Orientation: alert Motor Exam: strength 5/5 throughout Deep Tendon Reflexes: Rt Patellar (L4): 2+, Lt Patellar (L4): 2+, Rt Ankle (S1): 2+ and Lt Ankle (S1): 2+ Deep Tendon Reflexes Back: Rt Patellar (L4): 2+, Lt Patellar (L4): 2+, Rt Ankle (S1): 2+ and Lt Ankle (S1): 2+ Psych mental status grossly normal Mood & Affect: Negative for depressed or tearful Skin no rashes or lesions noted and no wounds MDM MDM MDM Narrative Medical decision making narrative: Differential diagnosis includes but not limited to lumbar radiculopathy sacroiliitis somatic dysfunction of lumbar myofascial tissue sacral somatic dysfunction infectious processes acutely herniated disc My independent interpretation of the plain films of the lumbar spine is degenerative changes stable surgical hardware. My independent interpretation of the pelvis is no acute findings. Clinically the patient is neurologically intact. He has very focal tenderness at the right SI joint. I am going to recommend pain medication anti-inflammatories if able to tolerate some Lidoderm patch heat gentle stretching follow-up with pain management on Wednesday return if worsening or development of neurologic findings. Radiography Diagnostic Testing: Clinical Impression(s) from Imaging Studies Lumbar Spine X-Ray 04/12/24 12:43 IMPRESSION: Degenerative changes of the spine, as detailed above. Stable fusion at the L5-S1 level. Electronically Signed: Abel Matthews MD at 13:39 EDT , Pelvis X-Ray 04/12/24 12:43 IMPRESSION: Status post fusion at the L5-S1 level. No acute abnormality is seen. Electronically Signed: Abel Matthews MD at 13:39 EDT , Discharge Plan Triage Chief Complaint: Back ED Provider: Mau Parisi Dx/Rx/DC Orders Clinical Impression: Sacroiliac joint somatic dysfunction, Sacroiliitis Instructions: ED Sacroiliitis Prescriptions: New oxycodone-acetaminophen 5-325 mg tablet 1 tab PO Q6H PRN PRN (Reason: Pain) 3 Days Qty: 12 0RF lidocaine [Lidoderm] 5 % adhesive patch,medicated 1 patch topical DAILY PRN (Reason: pain) Qty: 15 0RF Rx Instructions: leave on most painful area for up to 12 hrs No Action aspirin [Adult Aspirin Regimen] 81 mg tablet,delayed release (DR/EC) 81 mg PO QDAY amlodipine 5 MG tablet 5 mg PO BID Patient Comments: BLOOD PRESSURE multivitamin 1 EACH tablet 1 tab PO DAILY Patient Comments: VITAMIN fosinopril 20 MG tablet 20 mg PO DAILY Patient Comments: BLOOD PRESSURE rosuvastatin 10 mg tablet 10 mg PO DAILY Patient Comments: CHOLESTEROL metoprolol tartrate 50 mg tablet 50 mg PO BID Qty: 60 12RF clopidogrel 75 mg tablet See Rx Instructions .ROUTE .COMPLEX Qty: 90 3RF Dose Instruction: TAKE 1 TABLET BY MOUTH EVERY DAY Rx Instructions: TAKE 1 TABLET BY MOUTH EVERY DAY Primary Care Provider: Raquel Siddiqui Referrals: Raquel Siddiqui MD [Primary Care Provider] - Activity Restrictions/Additional Instructions: Please follow-up with your pain management doctor as scheduled next week. I would recommend heat gentle stretching. Ibuprofen if you are able to tolerate it from a gastrointestinal standpoint is a good choice. Print Language: Czech Disposition Disposition: Home, Self Care Discharge Date/Time: 04/12/24 14:20
[2024-04-12 13:36] VITALS: BP 143/74; PULSE 58; RESP 16; TEMP 36.1; O2SAT 99
[2024-04-12 14:19] VITALS: BP 143/74; PULSE 58; RESP 16; TEMP 36.1; O2SAT 99
== END 2024-04-12 14:20 | disposition home or self-care (01) ==
PROVIDERS: Emergency Provider Emergency Medicine; PCP Internal Medicine; Visit Provider Emergency Medicine
DX: M46.1 Sacroiliitis, not elsewhere classified (principal); E11.9 Type 2 diabetes mellitus without complications; I10 Essential (primary) hypertension; E78.00 Pure hypercholesterolemia, unspecified; I25.10 Atherosclerotic heart disease of native coronary artery without angina pectoris; Z79.899 Other long term (current) drug therapy; Z79.82 Long term (current) use of aspirin; Z87.891 Personal history of nicotine dependence; Z95.5 Presence of coronary angioplasty implant and graft; I25.2 Old myocardial infarction
CPT/HCPCS: 72100; 72170; 99282

== ENCOUNTER → 2024-05-03 | Outpatient (CLI) | payer MEDICARE, OTHER, SELFPAY ==
[2024-05-03 11:31] LABS: ALB/GLOB Ratio 1.1 RATIO (0.9-2.4); AST(SGOT) 31 U/L (15-37); Alanine Aminotransfer ALT/SGPT 40 U/L (16-61); Albumin, Serum 3.7 g/dL (3.2-5.0); Alkaline Phosphatase 77 U/L (45-117); Anion Gap 5 (5-15); BUN 19 mg/dL (7-18); BUN/Creat Ratio 19.5 RATIO (10-20); Calcium,Total 8.9 mg/dL (8.5-10.1); Chloride 111 mmol/L (98-107); Creatinine, Serum 0.98 mg/dL (0.70-1.30); EST Glomerular Filtration Rate 79 mL/min (>60); Est Glom Filt Rate - Afr Amer 96 mL/min (>60); Globulin 3.4 g/dL (2.2-4.2); Glucose 150 mg/dL (74-106); Protein, Total 7.1 g/dL (6.4-8.2); Sodium Level 140 mmol/L (136-145)
== END | disposition home or self-care (01) ==
LOC: LAB 10:23
PROVIDERS: PCP Internal Medicine; Referring Provider Clinical Nurse Specialist Adult Health; Visit Provider Clinical Nurse Specialist Adult Health
DX: Z51.81 Encounter for therapeutic drug level monitoring (principal); Z79.1 Long term (current) use of non-steroidal anti-inflammatories (NSAID)
CPT/HCPCS: 36415; 80053

== ENCOUNTER → 2024-05-09 | Outpatient (CLI) | payer MEDICARE, OTHER, SELFPAY ==
--- NOTE | 2024-05-09 07:42 | CT_ITS ---
STUDY: CT LUMBAR SPINE WITH CONTRAST REASON FOR EXAM: Male, 78 years old. LUMBAR DEGENERATIVE DISC DISEASE RADIATION DOSAGE (If Supplied By Facility): CTDIvol = ( 12.48 ) mGy, DLP = ( 450.08 ) mGycm TECHNIQUE: The patient was scanned in a multi detector CT scanner. High resolution transaxial imaging was performed following the intravenous administration of IV 100mL Isovue-370. Images were obtained from T12 to S1. Sagittal and coronal images were reconstructed. Individualized dose optimization techniques were used for this CT. COMPARISON: None FINDINGS: Normal lumbar lordosis. Mild dextro scoliosis centered at L3. Normal vertebrae of the lumbar spine. L1-2: Mild bilateral facet hypertrophy and ligament flavum hypertrophy. 2 mm retrolisthesis of L1 on L2 with a mild bilobed disc protrusion produces moderate spinal stenosis and moderate bilateral neural foraminal stenosis. L2-3: Mild bilateral facet hypertrophy and ligament flavum hypertrophy. Mild bilobed disc osteophyte complex produces mild spinal stenosis and mild bilateral neural foraminal stenosis. L3-4: Mild bilateral facet hypertrophy and ligament flavum hypertrophy. No disc protrusion, spinal stenosis, or neural foraminal stenosis. L4-5: Normal endplates. Normal disc height and morphology. Normal bilateral facet joints. Normal central canal and bilateral lateral recesses. Normal bilateral intervertebral neural foramina. L5-S1: Status post discectomy, interbody fusion with bony bridging, and transpedicular fixation with anatomic alignment with no spinal stenosis or neural foraminal stenosis. Normal visualized paraspinous soft tissue structures. CT/Spine Lumbar WITH Contrast IMPRESSION: Postsurgical changes, dextroscoliosis, and degenerative disc disease as described above. Electronically Signed: Raad Pinto MD at 13:43 EST ,
== END | disposition home or self-care (01) ==
LOC: CT 07:40
PROVIDERS: PCP Internal Medicine; Referring Provider Clinical Nurse Specialist Adult Health; Visit Provider Clinical Nurse Specialist Adult Health
DX: M51.369 Other intervertebral disc degeneration, lumbar region without mention of lumbar back pain or lower extremity pain (principal)
CPT/HCPCS: 72132; Q9967

== ENCOUNTER 2024-07-11 12:26 | Outpatient (CLI) | payer MEDICARE, OTHER, SELFPAY ==
--- NOTE | 2024-07-11 12:38 | CT_ITS ---
PROCEDURE: Lumbar spine myelogram REASON FOR EXAM: Chronic low back pain. Prior surgery.. TECHNIQUE: Lumbar spine CT with intrathecal contrast. COMPARISON: 05/09/2024 FINDINGS: 5 lumbar type vertebral levels. Slight levocurvature involving the mid lumbar spine. Vertebral body heights appear maintained. Minimal retrolisthesis of L1 on L2, stable. No acute lumbar spine fractures or dislocations are iden tified. Stqrcrdx-bl-voxlsd degenerative disc changes seen at the L5-S1 level. Njrw-ta-jwjuffsl degenerative disc and endplate c hanges seen at the L1-2 level. Remaining intervertebral disc spaces appear relatively well preserved. The conus terminates posterior to the L1 level. Cauda equina appears within normal limits. Vascular calcifications throughout the abdominal aorta an d iliac arteries. Posterior fusion hardware/pedicle screws seen at the L5-S1 level. Negative for hardware failure. Disc levels as follows: T12-L1: No disc herniation, central spinal or neural foraminal stenosis bilaterally L1-2: Minimal retrolisthesis, unchanged. Mild broad-based disc bulge. No significant central spinal stenosis. There is mild narrowing of the right lateral recess. Mild neural foraminal stenosis on the right. No significant neural foraminal stenosis on the left. L2-3: Broad-based disc bulge. No significant central spinal stenosis. There is mild narrowing of th e lateral recesses. Facet arthrosis bilaterally. Mild neural foraminal stenosis bilaterally. L3-4: Mild intraforaminal disc bulge on the right. Facet arthrosis and mild ligamentum flavum thicke julianna. No central spinal stenosis. Mild neural foraminal stenosis on the right. No significant neural foraminal stenosis on the left L4-5: No significant disc bulge. There is facet arthrosis and mild ligamentum flavum thickening. Mi ld narrowing of the lateral recesses. No central spinal stenosis. Mild neural foraminal stenosis bilaterally slightly worse on the left. L5-S1: Posterior decompression changes. No disc herniation or central spinal stenosis peer facet art hrosis bilaterally. Mild neural foraminal stenosis bilaterally slightly worse on the left Sacrum: Visualized upper sacrum and SI joints are unremarkable. Visualized retroperitoneal structures are unremarkable. CT/Spine Lumbar WITH Contrast IMPRESSION: 1. Posterior fusion hardware with interbody fusion seen at the L5-S1 level. Ne gative for hardware failure. 2. At the L5-S1 level, posterior decompression changes without canal stenosis. Mild neural foraminal stenosis bilaterally, slightly worse on the left. 3. At the L4-5 level, facet arthrosis and mild ligamentum flavum thickening con tributes to mild narrowing of the lateral recesses. No central spinal stenosis. Mild neural foraminal stenosis bilatera lly slightly worse on the left. 4. At the L3-4 level, mild intraforaminal disc bulge on the right. Facet arthr osis and mild ligamentum flavum thickening contributes to mild neural foraminal stenosis on the right. No central spinal stenosis. 5. Additional less prominent spondylotic changes of the remaining lumbar spine, as above One or more dose reduction techniques were used (e.g., Automated exposure contr ol, adjustment of the mA and/or kV according to patient size, use of iterative reconstruction technique). [facility]
[2024-07-11 12:44] LABS: Absolute Lymphocyte Count 1.73 X10^3/uL (0.83-4.51); Absolute Neutrophil Count 5.9 X10^3/uL (2.0-7.7); Basophil# 0.08 X10^3/uL; Basophil% 0.9 % (0-1); Eosinophil# 0.24 X10^3/uL; Eosinophils% 2.6 % (0-5); Hematocrit 42.4 % (40-54); Hemoglobin 14.1 g/dL (13.0-16.5); Lymphocyte # 1.73 X10^3/ul (0.83-4.51); Lymphocyte % 19.1 % (19-41); Mean Corp Hgb Conc 33.3 g/dL (32-36); Mean Corpuscular Hgb 30.8 pg (27.0-32.0); Mean Corpuscular Volume 92.6 fL (80-94); Mean Platelet Vol. 9.5 fl (6.2-12.0); Monocyte# 1.07 X10^3/uL; Monocyte% 11.8 % (0-10); NRBC Flagged by Analyzer 0 % (0-5); Neutrophil # 5.92 X10^3/uL (2.7-7.7); Neutrophil % 65.4 % (47-70); Platelet Count 246 K/mm3 (150-450); RBC Distribution Width CV 14.2 % (11.6-14.6); Red Blood Count 4.58 M/mm3 (4.6-6.2); White Blood Count 9.1 K/mm3 (4.4-11.0)
[2024-07-11 12:53] LABS: Prothrombin Time (Protime)PT. 13.4 SECONDS (11.7-14.9)
[2024-07-11 13:02] VITALS: BP 169/83; PULSE 72; RESP 18; TEMP 36.6; O2SAT 99; BMI 22.9
--- NOTE | 2024-07-11 13:50 | RAD_ITS ---
EXAM: LUMBAR MYELOGRAM CLINICAL HISTORY: Chronic low back pain. Prior lumbar laminectomy and fusion. COMPARISON: None. TECHNIQUE: The procedure as well as the benefits and possible complications including bleeding and infection wer e explained to the patient. Consent was signed. The patient was placed in the prone position. The overlying skin was prepped and draped in the usual sterile fashion. Following local anesthetic application and under fluoroscopic guidance, a 22 gauge spinal needle was placed at the L4-L5 disc space level. CSF was obtained. 10 cc of Isovue-M 200 was injected within the thecal sac. FINDINGS: The patient is status post fusion and laminectomy at the L5-S1 level. No evidence of spinal stenosis . No evidence of nerve root compression in this examination. A CT scan will follow. RAD/Lumbar Myelogram IMPRESSION: Successful lumbar myelogram as discussed. CT scan of the lumbar spine will follow. Reading Location: [place] [id number]
[2024-07-11] MEDS: Lidocaine 2% (5ml sdv) 5 ML VIAL.MPF INFILT (14:00)
[2024-07-11 14:05] VITALS: BP 170/67; PULSE 81; RESP 18; O2SAT 98
[2024-07-11 14:50] VITALS: BP 176/62; PULSE 81; RESP 18; O2SAT 97
== END 2024-07-11 23:59 | disposition home or self-care (01) ==
LOC: RAD 12:27
PROVIDERS: PCP Internal Medicine; Referring Provider Orthopaedic Surgery Orthopaedic Surgery of the Spine; Visit Provider Orthopaedic Surgery Orthopaedic Surgery of the Spine
DX: M51.369 Other intervertebral disc degeneration, lumbar region without mention of lumbar back pain or lower extremity pain (principal); M48.061 Spinal stenosis, lumbar region without neurogenic claudication; Z98.1 Arthrodesis status
CPT/HCPCS: 36415; 62304; 72132; 85025; 85610; 85730

== ENCOUNTER → 2024-08-24 | Outpatient (CLI) | payer MEDICARE, OTHER, SELFPAY | END | disposition home or self-care (01) | LOC: PSN 09:13 | PROVIDERS: PCP Internal Medicine; Referring Provider Internal Medicine Cardiovascular Disease; Visit Provider Internal Medicine Cardiovascular Disease | DX: R00.2 Palpitations (principal) | CPT/HCPCS: 93225; 93226 ==

== ENCOUNTER → 2024-09-01 | Outpatient (CLI) | payer MEDICARE, OTHER, SELFPAY ==
[2024-09-01 10:59] LABS: Absolute Lymphocyte Count 1.78 X10^3/uL (0.83-4.51); Basophil# 0.06 X10^3/uL; Basophil% 0.7 % (0-1); Eosinophils% 2.3 % (0-5); Hematocrit 43.8 % (40-54); Hemoglobin 14.3 g/dL (13.0-16.5); Lymphocyte # 1.78 X10^3/ul (0.83-4.51); Lymphocyte % 20.2 % (19-41); Mean Corp Hgb Conc 32.6 g/dL (32-36); Mean Corpuscular Hgb 30.2 pg (27.0-32.0); Mean Corpuscular Volume 92.4 fL (80-94); Mean Platelet Vol. 9.9 fl (6.2-12.0); Monocyte# 0.75 X10^3/uL; Monocyte% 8.5 % (0-10); NRBC Flagged by Analyzer 0 % (0-5); Neutrophil # 6.01 X10^3/uL (2.7-7.7); Neutrophil % 68.1 % (47-70); Platelet Count 226 K/mm3 (150-450); RBC Distribution Width CV 13.4 % (11.6-14.6); RBC Distribution Width SD 45.3 fl (35.1-43.9); Red Blood Count 4.74 M/mm3 (4.6-6.2); White Blood Count 8.8 K/mm3 (4.4-11.0)
[2024-09-01 12:03] LABS: Anion Gap 11 (5-15); BUN 20 mg/dL (4-19); BUN/Creat Ratio 17.7 RATIO (10-20); Calcium,Total 8.9 mg/dL (7.6-11.0); Carbon Dioxide 22.4 mmol/L (21.0-32.0); Chloride 105 mmol/L (98-108); Creatinine, Serum 1.14 mg/dL (0.70-1.20); EST Glomerular Filtration Rate 66 (>60); Glucose 139 mg/dL (70-99); Potassium 4.3 mmol/L (3.3-5.1); Sodium Level 138 mmol/L (133-145)
== END | disposition home or self-care (01) ==
LOC: LAB 10:37
PROVIDERS: PCP Internal Medicine; Referring Provider Internal Medicine Cardiovascular Disease; Visit Provider Internal Medicine Cardiovascular Disease
DX: I49.3 Ventricular premature depolarization (principal); R53.83 Other fatigue
CPT/HCPCS: 36415; 80048; 83735; 84443; 85025

== ENCOUNTER 2024-10-02 08:12 | Day surgery (SDC) | payer MEDICARE, OTHER, SELFPAY ==
--- NOTE | 2024-09-29 14:06 | PAT.ANESEVAL ---
Pre-Assessment Diagnosis/Proposed Procedure Planned Operative Procedure(s): CAUDAL EPIDURAL STEROID INJECTION UNDER FLUOROSCOPY Anesthesia History Anesthesia History - caterpillar mechanic: Anesthesia History - caterpillar mechanic Hx Hospitalization No 09/29/24 13:45 Any Problems With Anesthesia No 09/29/24 13:45 Cholinesterase deficiency No 09/29/24 13:45 You/Your Family Experience No 09/29/24 13:45 fever (hyperthermia) with Relationship Recent Exposure to Contagious No 08/26/23 07:33 Disease Does patient have nerve No 09/29/24 13:45 stimulator Patient instructed to have device shut off --Does patient have Pacemaker or ICD? When Was Last Pacemaker Check QUESTION #4 FULL TEXT: You/Your Family Experience fever (hyperthermia) with Anesthesia Last Oral Intake Last Oral intake: Last Oral Intake NPO since Meds taken in AM with sips of water? Meds patient instructed to take am of surgery PONV PONV - caterpillar mechanic: PONV - caterpillar mechanic Female No 09/29/24 13:45 HX of Motion Sickness No 09/29/24 13:45 HX of N/V After Surgery No 09/29/24 13:45 Non-Smoker Yes 09/29/24 13:45 Duration of Surgery greater No 09/29/24 13:45 than 60 minutes Number of Risk Factors 1 09/29/24 13:45 PONV Score Low Risk 09/29/24 13:45 Height & Weight Height & Weight: Anesthesia: Height & Weight Height 5 ft 10 in 08/17/24 10:15 Respiratory Assessment Respiratory Assessment - caterpillar mechanic: Respiratory Tract Infection Hx - caterpillar mechanic Hx Respiratory Tract Infection No 09/29/24 13:45 STOP Sleep Apnea STOP Sleep Apnea - caterpillar mechanic: STOP Sleep Apnea - caterpillar mechanic Hx Hypertension Yes: CONTROLLED WITH MED 09/29/24 13:45 Hx Sleep Apnea No 09/29/24 13:45 CPAP No 09/29/24 13:45 BIPAP No 09/29/24 13:45 Do you snore loudly (louder Yes 09/29/24 13:45 than talking or can be heard Do you often feel tired/ Yes 09/29/24 13:45 fatigued/ sleepy during daytime? Has anyone observed you stop No 09/29/24 13:45 breathing during sleep? STOP Results Positive 09/29/24 13:45 QUESTION #5 FULL TEXT : Do you snore loudly (louder than talking or can be heard through closed doors)? Tobacco Use History Tobacco Use History - caterpillar mechanic: Tobacco Use History - caterpillar mechanic Tobacco Use Smoking Status Former smoker 09/29/24 13:45 Hx Tobacco Use No 09/29/24 13:45 Years Smoking Packs Smoked per Day Smoking Cessation Date was No - quit smoking greater 09/29/24 13:45 within the last 15 years than 15 years ago Hx Smoking Cessation Date 06/14/96 09/29/24 13:45 Hx Smoking Cessation Counseling Hematologic Medial History Hematologic Hx - caterpillar mechanic: Hematologic Medical Hx - jerker Hx of Blood Transfusion No 09/29/24 13:45 Hx of Transfusion in last 3 No 09/29/24 13:45 Months Date of Last Transfusion (if within last 3 months) Ever experience any problems No 09/29/24 13:45 with transfusion(s)? Specify any problems Hx of Preganancy in last 3 N/A 09/29/24 13:45 Months Nurse Filling Out Transfusion DSCHRIBER 09/29/24 13:45 & Questions: Date: 09/29/24 09/29/24 13:45 Time: 13:47 09/29/24 13:45 Patient unable to answer at this time (ie. confused, unrespo /Reproduction History /Reproductive History - caterpillar mechanic: /Reproductive Hx- caterpillar mechanic Hx Now Gestational Age (in weeks): EDC: Hx Hx Para Hx Section SAB No 09/29/24 13:45 PFSH Medical History (Updated 09/29/24 @ 13:55 by Jenae Gray) Restless legs Back pain History of hiatal hernia Gastric reflux History of edema History of heart attack History of Holter monitoring Wears hearing aid Wears glasses Wears dentures Arthritis High cholesterol Dietary restriction Diverticulosis Former smoker History of pain when walking History of echocardiogram History of stress test Cardiology follow-up encounter History of irregular heartbeat NSVT (nonsustained ventricular tachycardia) Type 2 diabetes mellitus Essential hypertension Peripheral arterial disease History of non-ST elevation myocardial infarction (NSTEMI) 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 Lumbar stenosis Chronic back pain Overweight (BMI 25.0-29.9) Hyperlipidemia Hypertension Home Medications ?Medication ?Instructions ?Recorded ?Last Taken ?Type amlodipine 5 mg tablet 5 mg PO BID 04/16/17 08/26/23 History fosinopril 20 mg tablet 20 mg PO DAILY 04/16/17 08/26/23 History multivitamin 1 tab PO DAILY 04/16/17 Unknown History aspirin 81 mg tablet,delayed 81 mg PO QDAY 01/06/18 08/25/23 History release (Adult Aspirin Regimen) rosuvastatin 10 mg tablet 10 mg PO DAILY 10/17/21 Unknown History metoprolol tartrate 50 mg tablet 50 mg PO BID #60 tabs 04/27/22 08/26/23 Rx clopidogrel 75 mg tablet See Rx Instructions .Route 11/29/23 09/27/24 Rx .COMPLEX #90 tabs fiber 1 tab PO DAILY 09/29/24 Unknown History omeprazole 20 mg tablet,delayed 20 mg PO DAILY 09/29/24 Unknown History release Allergy/AdvReac Type Severity Reaction Status Date / Time atorvastatin (From Lipitor) AdvReac Intermediate Myalgias Verified 09/29/24 13:43 Family History Father , of cancer Myocardial infarction, Onset Age: 70 Cancer kidney Mother , age 66 Bleeding in brain due to brain aneurysm Brother Myocardial infarction, Onset Age: 62 CAD (coronary artery disease) Surgical History (Updated 09/29/24 @ 13:55 by Jenae Gray) History of cardiac catheterization History of esophagogastroduodenoscopy (EGD) H/O bilateral cataract extraction History of back surgery S/P femoral-femoral bypass surgery Stented coronary artery (~09/21/03) History of left heart catheterization (~04/02/22) Social History household members: spouse current occupational status: employed current occupation: [employer] [place] Smoking Status: Former smoker quit date: 06/14/01 pack-years: 20 Electronic Cigarette Use: not used how long ago did patient quit smokin alcohol intake: never substance use type: does not use do you feel safe at home: Yes Audit: Pertinent Findings Pertinent Findings EKG Perinent findings: 08/17/2024. Sinus rhythm with frequent PVCs. Ventricular trigeminy. Echo (EF%) pertinent findings: 02/14/2022. EF 65% pulmonary artery pressure 31 Consult pertinent findings: 08/17/2024. Cardiology. Palpitations. Check 24-hour Holter monitor. Had PVCs in the past. 2 diabetes. Chronic. Hypertension. Chronic. Well-controlled. Coronary artery disease. Stent of ostium for 2003. Catheterization March 2022 showed patent stent. Recommendation Anesthesia Recommendation Anesthesia recommendation: OPTIMIZED for anesthesia
--- NOTE | 2024-10-02 08:14 | PCM.PRE.AN2 ---
ASA Classification* ASA Classification ASA Classification: 3 Assessment & Plan Anesthesia* Anesthesia Assessment Anesthesia Assessment: Discussed sedation and/or anesthesia options, risks, benefits, and alternatives with patient/parents/legal guardian/POA. Questions invited. The patient/parents/legal guardian/POA seems to understand and agrees to proceed with anesthesia plan. Reviewed the physical assessment, medical history, allergy history and patient home medications list prior to surgery/procedure/anesthetic and documented any changes. Performed airway and anesthesia risk assessments. Anesthesia Type Anesthesia Type: MAC Anesthesia Focused Assessment* Airway Assessment Mouth opens: >3 cm Mallampati Score: II Focused Labs Anesthesia Preop lab: CBC WBC 8.8 K/mm3 (4.4-11.0) 09/01/24 10:44 09/01/24 RBC 4.74 M/mm3 (4.6-6.2) 09/01/24 10:44 09/01/24 Hgb 14.3 g/dL (13.0-16.5) 09/01/24 10:44 09/01/24 Hct 43.8 % (40-54) 09/01/24 10:44 09/01/24 Plt Count 226 K/mm3 (150-450) 09/01/24 10:44 09/01/24 CHEMISTRY Potassium 4.3 mmol/L (3.3-5.1) 09/01/24 10:44 09/01/24 Sodium 138 mmol/L (133-145) 09/01/24 10:44 09/01/24 Magnesium 2.0 mg/dL (1.5-2.2) 09/01/24 10:44 09/01/24 Phosphorus 3.2 mg/dL (2.5-4.9) 11/12/21 06:41 11/12/21 BUN 20 mg/dL (4-19) H 09/01/24 10:44 09/01/24 Creatinine 1.14 mg/dL (0.70-1.20) 09/01/24 10:44 09/01/24 Glucose 139 mg/dL (70-99) H 09/01/24 10:44 09/01/24 POC Glucose 110 mg/dL (74-106) H 08/26/23 07:37 08/26/23 TSH 1.670 uIU/mL (0.300-4.200) 09/01/24 10:44 09/01/24 COAG PT 13.4 SECONDS (11.7-14.9) 07/11/24 12:30 07/11/24 Pre-Assessment Diagnosis/Proposed Procedure Planned Operative Procedure(s): CAUDAL EPIDURAL STEROID INJECTION UNDER FLUOROSCOPY Anesthesia History 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 When Was Last Pacemaker Check QUESTION #4 FULL TEXT: You/Your Family Experience fever (hyperthermia) with Anesthesia Last Oral Intake Last Oral intake: Last Oral Intake NPO since Meds taken in AM with sips of water? Meds patient instructed to take am of surgery PONV PONV - lower school spanish teacher: PONV - lower school spanish teacher Female No 09/29/24 13:45 HX of Motion Sickness No 09/29/24 13:45 HX of N/V After Surgery No 09/29/24 13:45 Non-Smoker Yes 09/29/24 13:45 Duration of Surgery greater No 09/29/24 13:45 than 60 minutes Number of Risk Factors 1 09/29/24 13:45 PONV Score Low Risk 09/29/24 13:45 Height & Weight Height & Weight: Anesthesia: Height & Weight Height 5 ft 10 in 08/17/24 10:15 Respiratory Assessment Respiratory Assessment - lower school spanish teacher: Respiratory Tract Infection Hx - lower school spanish teacher Hx Respiratory Tract Infection No 09/29/24 13:45 STOP Sleep Apnea STOP Sleep Apnea - lower school spanish teacher: STOP Sleep Apnea - lower school spanish teacher Hx Hypertension Yes: CONTROLLED WITH MED 09/29/24 13:45 Hx Sleep Apnea No 09/29/24 13:45 CPAP No 09/29/24 13:45 BIPAP No 09/29/24 13:45 Do you snore loudly (louder Yes 09/29/24 13:45 than talking or can be heard Do you often feel tired/ Yes 09/29/24 13:45 fatigued/ sleepy during daytime? Has anyone observed you stop No 09/29/24 13:45 breathing during sleep? STOP Results Positive 09/29/24 13:45 QUESTION #5 FULL TEXT : Do you snore loudly (louder than talking or can be heard through closed doors)? 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 Specify any problems Hx of Preganancy in last 3 N/A 09/29/24 13:45 Months Nurse Filling Out Transfusion DSCHRIBER 09/29/24 13:45 & Questions: Date: 09/29/24 09/29/24 13:45 Time: 13:47 09/29/24 13:45 Patient unable to answer at this time (ie. 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: /Reproductive Hx- lower school spanish teacher Hx Now Gestational Age (in weeks): EDC: Hx Hx Para Hx Section SAB No 09/29/24 13:45 PFSH Medical History Restless legs Back pain History of hiatal hernia Gastric reflux History of edema History of heart attack History of Holter monitoring Wears hearing aid Wears glasses Wears dentures Arthritis High cholesterol Dietary restriction Diverticulosis Former smoker History of pain when walking History of echocardiogram History of stress test Cardiology follow-up encounter History of irregular heartbeat NSVT (nonsustained ventricular tachycardia) Type 2 diabetes mellitus Essential hypertension Peripheral arterial disease History of non-ST elevation myocardial infarction (NSTEMI) 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 Lumbar stenosis Chronic back pain Overweight (BMI 25.0-29.9) Hyperlipidemia Hypertension Home Medications ?Medication ?Instructions ?Recorded ?Last Taken ?Type amlodipine 5 mg tablet 5 mg PO BID 04/16/17 08/26/23 History fosinopril 20 mg tablet 20 mg PO DAILY 04/16/17 08/26/23 History multivitamin 1 tab PO DAILY 04/16/17 Unknown History aspirin 81 mg tablet,delayed 81 mg PO QDAY 01/06/18 08/25/23 History release (Adult Aspirin Regimen) rosuvastatin 10 mg tablet 10 mg PO DAILY 10/17/21 Unknown History metoprolol tartrate 50 mg tablet 50 mg PO BID #60 tabs 04/27/22 08/26/23 Rx clopidogrel 75 mg tablet See Rx Instructions .Route 11/29/23 09/27/24 Rx .COMPLEX #90 tabs fiber 1 tab PO DAILY 09/29/24 Unknown History omeprazole 20 mg tablet,delayed 20 mg PO DAILY 09/29/24 Unknown History release Allergy/AdvReac Type Severity Reaction Status Date / Time atorvastatin (From Lipitor) AdvReac Intermediate Myalgias Verified 09/29/24 13:43 Family History Father , of cancer Myocardial infarction, Onset Age: 70 Cancer kidney Mother , age 66 Bleeding in brain due to brain aneurysm Brother Myocardial infarction, Onset Age: 62 CAD (coronary artery disease) Surgical History History of cardiac catheterization History of esophagogastroduodenoscopy (EGD) H/O bilateral cataract extraction History of back surgery S/P femoral-femoral bypass surgery Stented coronary artery (~09/21/03) History of left heart catheterization (~04/02/22) Social History household members: spouse current occupational status: employed current occupation: [employer] Smoking Status: Former smoker quit date: 06/14/01 pack-years: 20 Electronic Cigarette Use: not used how long ago did patient quit smokin alcohol intake: never substance use type: does not use do you feel safe at home: Yes Review of Systems (Anesthesia) ROS Narrative System reviewed and no additional complaints, except as documented.
[2024-10-02 08:31] VITALS: BP 140/85; PULSE 54; RESP 18; TEMP 36.3; O2SAT 99; BMI 24.0
--- NOTE | 2024-10-02 09:34 | RAD_ITS ---
PROCEDURE: FLUOR GUIDANCE FOR SPINE INJ 10/02/2024 REASON FOR EXAM: BLOCK, CAUDAL TECHNIQUE: Intraoperative fluoroscopic services provided for caudal block. COMPARISON: None FINDINGS: 5.4 seconds of fluoroscopy. 2.69 mGy. 2 images were submitted. RAD/Fluor Guidance for Spine Inj IMPRESSION: Intraoperative imaging provided for caudal block. Reading Location: [id number]
[2024-10-02] MEDS: Bupivacaine 0.25% 30 ML Vial (09:42)
[2024-10-02] MEDS: 0.9% Normal Saline (Pres. free 10 ML Vial (09:42)
[2024-10-02] MEDS: MethylPREDNISolone Acetate 80 MG/ML Vial (09:42)
[2024-10-02] MEDS: Lidocaine 1% (5 ml sdv) 5 ML Vial (09:42)
[2024-10-02 09:47] VITALS: BP 114/67; BP 140/85; PULSE 57; RESP 12; TEMP 36.9; O2SAT 92
--- NOTE | 2024-10-02 09:48 | PCM.POST.ANE ---
Anesthesia: Postop Eval I Current Vital Signs Temperature: 98.2 F Pulse Rate: 55 Blood Pressure: 114/67 Respiratory Rate: 18 Pulse Ox: 94 Oxygen Delivery Method: Room Air Assessment Airway patent: Yes Spontaneous unlabored respirations: Yes Mental status: Calm nausea: No Vomiting: No Anesthesia Complication: No Fluid Hydration Crystalloid volume administer (ml): 0 Total IV fluid infused: 0 Progress Note Anesthesia document: Postop Eval 1 completed: Yes
[2024-10-02 09:50] VITALS: BP 111/64; BP 114/67; BP 140/85; PULSE 55; PULSE 69; RESP 14; RESP 18; TEMP 36.8; O2SAT 92; O2SAT 94
--- NOTE | 2024-10-02 09:53 | OP.PCM_ITS ---
Operative Report (Standard) Operative Information Date of Procedure: 10/02/24 Pre-Operative Diagnosis: Lumbosacral radiculopathy, lumbosacral degenerative disc disease, lumbosacral spinal stenosis, postlaminectomy syndrome of the lumbar spine Post-Operative Diagnosis: Lumbosacral radiculopathy, lumbosacral degenerative disc disease, lumbosacral spinal stenosis, postlaminectomy syndrome of the lumbar spine Surgery/Procedure Performed: Diagnostic/therapeutic caudal epidural steroid injection under fluoroscopic guidance lead performance support analyst: No Type of Anesthesia: Local MAC RN Documented Start/Stop Times: Operation Date: 10/02/24 10:00 Case Time Into Pre-Op 10/02/24 08:28 Out of Pre-Op 10/02/24 09:24 Anesthesia Start 10/02/24 09:34 Into Room 10/02/24 09:34 Procedure Start 10/02/24 09:41 Procedure End 10/02/24 09:43 Anesthesia End 10/02/24 09:45 Out of Room 10/02/24 09:45 Into Recovery 10/02/24 09:47 Procedure Start Time: 09:54 Procedure Stop Time: 09:54 Select all DRAINS/GRAFTS/IMPLANTS that apply: None Estimated Blood Loss: 1 Specimen collected: No Description of surgery: ANESTHESIA: MAC. BLOOD LOSS: Minimal. COMPLICATIONS: None. DESCRIPTION OF PROCEDURE: History and physical of today was reviewed. Risks and benefits of the procedure were explained. The patient understood and agreed to proceed. Informed consent was obtained. IV inserted per routine protocol. The patient was taken to the operating room and placed in the prone position with a pillow positioned underneath the abdomen. The lower back and tailbone area was prepped and draped in a sterile fashion using iodine x3. Under fluoroscopy guidance on a lateral view, the caudal space was identified. The skin and subcutaneous tissue was anesthetized with approximately 3 mL of 1% lidocaine using a 25-gauge regular needle. Under direct visualization with fluoroscopy, using a 22-gauge 3-1/2-inch spinal needle, the needle was advanced via the skin through the sacral hiatus. The tip of the needle was passed through the sacrococcygeal ligament and advanced to approximately S4 area. After negative aspiration of blood or CSF, a total of 3 mL of contrast was injected to confirm correct placement of the needle as well as cephalad spread. The spread was followed to approximately L5 area. After confirmation on AP as well as lateral view and repeated negative aspiration, a total of 15 mL of preservative-free 0.125% Marcaine with 80 mg of Depo-Medrol was injected easily. The needle was then removed intact. The patient experienced no sign or symptoms of intrathecal or intravascular injection. The patient experienced no paresthesia. The procedure was completed without any apparent difficulty or any complications. The patient appeared to tolerate it well. ASSESSMENT AND PLAN: This is a 78-year-old male with lumbosacral radiculopathy, lumbosacral spinal stenosis, postlaminectomy syndrome of the lumbar spine, status post diagno stic/therapeutic caudal epidural steroid injection under fluoroscopic guidance, patient will continue his current medications, patient will follow up in approximately 2 weeks for reevaluation. Surgical Findings: 1 Complications Complications: No Admit VTE Documentation VTE Present on Admission: No VTE Mechan Device Prophylaxis: None VTE Pharm Prophylaxis ordered?: No
[2024-10-02 09:55] VITALS: BP 113/61; BP 140/85; PULSE 56; RESP 14; O2SAT 96
--- NOTE | 2024-10-02 10:00 | POSTOPAN2_ITS ---
Anesthesia Postop Eval I Sum Postop Eval Completion status Anesthesia document: Postop Eval 1 completed: Yes Anesthesia Postop Eval I Summary Anesthesia Postop Eval I Summary: Anesthesia Postop Eval I: Assessment Summary Airway patent Yes 10/02/24 09:50 BARKING MACHINE FEEDER.[email or web address] Spontaneous unlabored Yes 10/02/24 09:50 BARKING MACHINE FEEDER.OS respirations Mental status Calm 10/02/24 09:50 BARKING MACHINE FEEDER.BHOS nausea No 10/02/24 09:50 BARKING MACHINE FEEDER.BHOS Vomiting No 10/02/24 09:50 BARKING MACHINE FEEDER.OS Anesthesia Postop Eval I: Fluid Summary Crystalloid volume administer 0 10/02/24 09:50 BARKING MACHINE FEEDER.BHOS (ml) Colloids volume administered ( ml) Blood Product volume administered (ml) Total IV fluid infused 0 10/02/24 09:50 BARKING MACHINE FEEDER.OS Anesthesia Postop Eval I: Summary Notes Anesthesia Complication No 10/02/24 09:50 BARKING MACHINE FEEDER.[facility] Anesthesia Complication Comment: Post-operative progress note Anesthesia: Postop Eval II Evaluation Mental status: Awake Pain Level: 2 nausea: No Vomiting: No
--- NOTE | 2024-10-02 10:00 | PCM.POSTANE2 ---
Anesthesia Postop Eval I Sum Postop Eval Completion status Anesthesia document: Postop Eval 1 completed: Yes Anesthesia Postop Eval I Summary Anesthesia Postop Eval I Summary: Anesthesia Postop Eval I: Assessment Summary Airway patent Yes 10/02/24 09:50 METAL DRILL PRESS OPERATOR.BHOS Spontaneous unlabored Yes 10/02/24 09:50 METAL DRILL PRESS OPERATOR.OS respirations Mental status Calm 10/02/24 09:50 METAL DRILL PRESS OPERATOR.BHOS nausea No 10/02/24 09:50 METAL DRILL PRESS OPERATOR.[facility]OS Vomiting No 10/02/24 09:50 METAL DRILL PRESS OPERATOR.OS Anesthesia Postop Eval I: Fluid Summary Crystalloid volume administer 0 10/02/24 09:50 METAL DRILL PRESS OPERATOR.BHOS (ml) Colloids volume administered ( ml) Blood Product volume administered (ml) Total IV fluid infused 0 10/02/24 09:50 METAL DRILL PRESS OPERATOR.OS Anesthesia Postop Eval I: Summary Notes Anesthesia Complication No 10/02/24 09:50 METAL DRILL PRESS OPERATOR.[facility] Anesthesia Complication Comment: Post-operative progress note Anesthesia: Postop Eval II Evaluation Mental status: Awake Pain Level: 2 nausea: No Vomiting: No
[2024-10-02 10:01] VITALS: BP 118/60; BP 140/85; PULSE 50; RESP 16; TEMP 37; O2SAT 94
[2024-10-02 10:13] VITALS: BP 140/85
== END 2024-10-02 10:31 | disposition home or self-care (01) ==
LOC: SDC 08:13 → AC 08:14
PROVIDERS: PCP Internal Medicine; Referring Provider Anesthesiology Pain Medicine; Visit Provider Anesthesiology Pain Medicine
PROC: 3E0S3BZ Introduction of Anesthetic Agent into Epidural Space, Percutaneous Approach (ICD-10-PCS; CPT 62282; principal; 2024-10-02 09:55)
DX: M51.17 Intervertebral disc disorders with radiculopathy, lumbosacral region (principal); M48.07 Spinal stenosis, lumbosacral region; M96.1 Postlaminectomy syndrome, not elsewhere classified; I10 Essential (primary) hypertension; I25.2 Old myocardial infarction; E78.00 Pure hypercholesterolemia, unspecified; Z95.5 Presence of coronary angioplasty implant and graft; Z79.02 Long term (current) use of antithrombotics/antiplatelets; Z79.82 Long term (current) use of aspirin; Z79.899 Other long term (current) drug therapy; Z87.891 Personal history of nicotine dependence
CPT/HCPCS: 62323; 01992; 64483; 77003; A4216

== ENCOUNTER → 2024-10-30 | Outpatient (CLI) | payer MEDICARE, OTHER, SELFPAY ==
--- NOTE | 2024-10-30 06:55 | ECHOD_ITS ---
Reason For Study Reason For Study: ARRHYTHMIA Procedure This was a 2D Doppler, Color Flow transthoracic echocardiogram. Exam performed in department. Left Ventricle Normal left ventricle. Left ventricular systolic function is normal. The left ventricular ejection fraction is 60 %. Stage 1 diastolic dysfunction. No regional wall motion abnormalities noted. Right Ventricle Normal RV size. Normal systolic function. Mitral Valve Normal mitral valve. Mild (1+) mitral valve insufficiency. Tricuspid Valve Normal tricuspid valve. Mild (1+) tricuspid valve insufficiency. Pulmonary artery systolic pressure is 34 mmHg. Aortic Valve Trisinus/trileaflet aortic valve. Pulmonic Valve Normal pulmonic valve. Great Vessels Normal aortic root. The pulmonary artery is normal size. Normal inferior vena cava. Pericardium/Pleural No pericardial effusion. MMode/2D Measurements & Calculations LVIDd: 4.8 cm IVSd: 1.0 cm LVOT diam: 2.1 cm LVIDs: 3.2 cm LVPWd: 0.84 cm LVOT area: 3.4 cm2 RVDd: 3.8 cm FS: 34.2 % asc Aorta Diam: 3.4 cm LAV(MOD-bp): 53.3 ml LVAd ap4: 25.0 cm2 LAV(MOD-bp) Indexed: 28.1 ml/m2 LVLd ap4: 7.8 cm LAV(MOD-sp2): 57.9 ml EDV(MOD-sp4): 65.2 ml LAV(MOD-sp4): 44.0 ml EDV(sp4-el): 67.6 ml LVAs ap4: 13.5 cm2 LVLs ap4: 6.3 cm ESV(MOD-sp4): 26.1 ml ESV(sp4-el): 24.8 ml EF(MOD-sp4): 60.0 % EF(sp4-el): 63.3 % SV(MOD-sp4): 39.1 ml SV(MOD-sp2): 44.1 ml LVAd ap2: 26.7 cm2 LVLd ap2: 7.9 cm SI(MOD-sp4): 20.6 ml/m2 SI(MOD-sp2): 23.2 ml/m2 EDV(MOD-sp2): 75.0 ml EDV(sp2-el): 76.4 ml LVAs ap2: 15.5 cm2 LVLs ap2: 7.1 cm ESV(MOD-sp2): 30.9 ml ESV(sp2-el): 28.6 ml EF(MOD-sp2): 58.8 % SV(sp4-el): 42.8 ml Ao sinus diam: 3.[address] Junction: 2.8 cm LA A4 area: 16.5 cm2 LA dimension(2D): 4.1 cm RA A4 area: 13.7 cm2 TAPSE: 2.0 cm Time Measurements MV dec time: 0.25 sec Doppler Measurements & Calculations MV E max yovanny: 64.2 cm/sec Lat Peak E' Yovanny: 8.8 cm/sec Med Peak E' Yovanny: 6.0 cm/sec MV A max yovanny: 108.4 cm/sec E/E' lat: 7.3 E/E' med: 10.8 MV E/A: 0.59 Ao V2 max: 92.6 cm/sec LV V1 max: 86.8 cm/sec MV dec slope: 259.2 cm/sec2 Ao max P.4 mmHg LV V1 max P.0 mmHg Ao V2 mean: 67.3 cm/sec LV V1 mean P.6 mmHg Ao mean P.0 mmHg LV V1 mean: 60.4 cm/sec Ao V2 VTI: 23.2 cm LV V1 VTI: 22.8 cm AV (velocity ratio): 0.98 PORSCHE(I,D): 3.4 cm2 PORSCHE(V,D): 3.2 cm2 SV(LVOT): 78.2 ml PA V2 max: 75.2 cm/sec TR max yovanny: 270.5 cm/sec TR max P.3 mmHg ECHO/Echo Complete Interpretation Summary Normal left ventricle. Left ventricular systolic function is normal. The left ventricular ejection fraction is 60 %. Stage 1 diastolic dysfunction. Mild (1+) tricuspid valve insufficiency. Ordering Physician: Chaparro Lizarraga Referring Physician: Chaparro Lizarraga MD Performed By: Guerda Stringer RDCS
--- NOTE | 2024-10-30 15:00 | STRESSREP ---
Stress Test Report Pharmacologic myocardial perfusion stress test. 78-year-old male with a history of coronary artery disease and frequent premature ventricular complexes Resting EKG demonstrates sinus rhythm with a rate of 63 bpm. Resting blood pressure is 158/80 mmHg. 0.4 mg of regadenoson was infused per usual protocol followed by rapid intravenous saline flush injection. Continuous EKG monitoring was performed. The maximum heart rate was 87 bpm which was 60% of max impacted heart rate the maximum workload was 1 metabolic equivalent. At rest there were no ST or T wave changes noted to suggest ischemia and at peak infusion nonspecific ST changes were noted which did not meet the criteria for ischemia. No clinical angina is noted. The final blood pressure was 152/70 mmHg. Myocardial perfusion protocol. 11 mCi of technetium 99m sestamibi was injected at rest. 0.4 mg of regadenoson was infused per usual protocol. At peak infusion 33.1 mCi of technetium 99m sestamibi was injected stress images were obtained stress and rest images were reconstructed and compared in the short axis vertical long and horizontal long axis. Gated images were also obtained. Perfusion SPECT analysis: Review of the stress images demonstrate normal uptake of tracer noted in all areas of the myocardium. The resting images similar demonstrated normal uptake of tracer noted in all areas of the myocardium. No areas of reversibility are noted to suggest ischemia and no previous infarct is noted. Gated SPECT analysis: The gated ejection fraction is 63%. Conclusion: Normal pharmacologic myocardial perfusion stress test. normal ejection fraction.
== END | disposition home or self-care (01) ==
LOC: CVS 06:55
PROVIDERS: PCP Internal Medicine; Referring Provider Internal Medicine Cardiovascular Disease; Visit Provider Internal Medicine Cardiovascular Disease
DX: I25.10 Atherosclerotic heart disease of native coronary artery without angina pectoris (principal); I49.3 Ventricular premature depolarization
CPT/HCPCS: 78452; 93017; 93306; A9500; A4216; J2785

== ENCOUNTER → 2025-04-05 | Outpatient (CLI) | payer MEDICARE, OTHER, SELFPAY | END | disposition home or self-care (01) | LOC: CVS 08:47 | PROVIDERS: PCP Internal Medicine; Referring Provider Surgery Vascular Surgery; Visit Provider Surgery Vascular Surgery | DX: I70.212 Atherosclerosis of native arteries of extremities with intermittent claudication, left leg (principal); I65.23 Occlusion and stenosis of bilateral carotid arteries | CPT/HCPCS: 93880; 93922; 93925 ==

== ENCOUNTER → 2025-05-01 | Outpatient (CLI) | payer MEDICARE, OTHER, SELFPAY ==
[2025-05-01 11:20] LABS: Cholesterol 133 mg/dL (<=200); Low Density Lipoprotein Calc. 69 mg/dL; Triglycerides 81 mg/dL; Very Low Density Lipoprotein 16 mg/dL (5-40); Vitamin D,25 Hydroxy 28.7 ng/mL (30-100); cholesterol:hdl ratio screen 2.78
== END | disposition home or self-care (01) ==
LOC: LAB 08:55
PROVIDERS: PCP Internal Medicine; Referring Provider Nurse Practitioner Gerontology; Visit Provider Nurse Practitioner Gerontology
DX: I25.111 Atherosclerotic heart disease of native coronary artery with angina pectoris with documented spasm (principal); E55.9 Vitamin D deficiency, unspecified
CPT/HCPCS: 80061; 82306

== ENCOUNTER 2025-05-14 05:24 | Inpatient (IN) | payer MEDICARE, OTHER, SELFPAY ==
--- NOTE | 2025-05-01 09:00 | EKG12_ITS ---
Test Reason : PREOP Blood Pressure : */* mmHG Vent. Rate : 59 BPM Atrial Rate : 59 BPM P-R Int : 196 ms QRS Dur : 78 ms QT Int : 422 ms P-R-T Axes : 90 8 51 degrees QTcB Int : 417 ms Sinus bradycardia Otherwise normal ECG Confirmed by KAMILLE SOTO, HUMBERTO ([id number]), acquisitions editor ANNAMARIE BACON ([id number]) on 05/02/2025 6:25:30 AM Referred By: Yandel Mccarthy Confirmed By: HUMBERTO SIMENTAL MD
[2025-05-01 10:19] LABS: Hematocrit 44.7 % (40-54); Hemoglobin 14.7 g/dL (13.0-16.5); Immature Granulocytes Count 0.020 X10^3/uL (0.0-0.0); Mean Corp Hgb Conc 32.9 g/dL (32-36); Mean Corpuscular Volume 92.4 fL (80-94); Mean Platelet Vol. 9.6 fl (6.2-12.0); NRBC Flagged by Analyzer 0 % (0-5); Platelet Count 240 K/mm3 (150-450); RBC Distribution Width CV 13.1 % (11.6-14.6); RBC Distribution Width SD 44.6 fl (35.1-43.9); Red Blood Count 4.84 M/mm3 (4.6-6.2); White Blood Count 9.4 K/mm3 (4.4-11.0)
[2025-05-01 11:05] LABS: Magnesium 2.0 mg/dL (1.5-2.2)
[2025-05-01 11:08] LABS: AST(SGOT) 32 U/L (<=37); Alanine Aminotransfer ALT/SGPT 29 U/L (<=46); Albumin, Serum 4.1 g/dL (3.4-4.8); Alkaline Phosphatase 74 U/L (40-129); Anion Gap 11 (5-15); BUN 17 mg/dL (4-19); BUN/Creat Ratio 18.0 RATIO (10-20); Bilirubin, Direct 0.18 mg/dL (0.00-0.30); Calcium,Total 8.6 mg/dL (7.6-11.0); Carbon Dioxide 21.3 mmol/L (21.0-32.0); Chloride 108 mmol/L (98-108); Globulin 3.3 g/dL (2.2-4.2); Glucose 123 mg/dL (70-99); Potassium 4.3 mmol/L (3.3-5.1)
--- NOTE | 2025-05-03 13:46 | PAT.ANESEVAL ---
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 When Was Last Pacemaker Check QUESTION #4 FULL TEXT: You/Your Family Experience fever (hyperthermia) with Anesthesia Last Oral Intake Last Oral intake: Last Oral Intake NPO since Meds taken in AM with sips of water? Meds patient instructed to take am of surgery PONV PONV - smoke inspector: PONV - smoke inspector Female No 04/30/25 08:32 HX of Motion Sickness No 04/30/25 08:32 HX of N/V After Surgery No 04/30/25 08:32 Non-Smoker Yes 04/30/25 08:32 Duration of Surgery greater Yes 04/30/25 08:32 than 60 minutes Number of Risk Factors 2 04/30/25 08:32 PONV Score Moderate Risk 04/30/25 08:32 Height & Weight Height & Weight: Anesthesia: Height & Weight Height 5 ft 10 in 01/24/25 12:58 Respiratory Assessment Respiratory Assessment - smoke inspector: Respiratory Tract Infection Hx - smoke inspector Hx Respiratory Tract Infection No 04/30/25 08:32 STOP Sleep Apnea STOP Sleep Apnea - smoke inspector: STOP Sleep Apnea - smoke inspector Hx Hypertension Yes: CONTROLLED WITH MED 04/30/25 08:32 Hx Sleep Apnea No 04/30/25 08:32 CPAP No 04/30/25 08:32 BIPAP No 04/30/25 08:32 Do you snore loudly (louder No 04/30/25 08:32 than talking or can be heard Do you often feel tired/ No 04/30/25 08:32 fatigued/ sleepy during daytime? Has anyone observed you stop No 04/30/25 08:32 breathing during sleep? STOP Results Negative 04/30/25 08:32 QUESTION #5 FULL TEXT : Do you snore loudly (louder than talking or can be heard through closed doors)? 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 Specify any problems Hx of Preganancy in last 3 N/A 04/30/25 08:32 Months Nurse Filling Out Transfusion NBUCHER 04/30/25 08:32 & Questions: Date: 04/30/25 04/30/25 08:32 Time: 08:33 04/30/25 08:32 Patient unable to answer at this time (ie. confused, unrespo /Reproduction History /Reproductive History - smoke inspector: /Reproductive Hx- smoke inspector Hx Now No 04/30/25 08:32 Gestational Age (in weeks): EDC: Hx Hx Para Hx Section SAB No 04/30/25 08:32 Does the father of the baby or his family experience fever w Father of the baby Malignant Hypertension history comment [facility] Medical History Restless legs Back pain History of hiatal hernia Gastric reflux History of edema History of heart attack History of Holter monitoring Wears hearing aid Wears glasses Wears dentures Arthritis High cholesterol Dietary restriction Diverticulosis Former smoker History of pain when walking History of echocardiogram History of stress test Cardiology follow-up encounter History of irregular heartbeat NSVT (nonsustained ventricular tachycardia) Type 2 diabetes mellitus Essential hypertension Peripheral arterial disease History of non-ST elevation myocardial infarction (NSTEMI) Prinzmetal angina Atherosclerotic heart disease of [place] coronary artery with angina pectoris with documented spasm Lumbar stenosis Chronic back pain Overweight (BMI 25.0-29.9) Hyperlipidemia Hypertension Home Medications ?Medication ?Instructions ?Recorded ?Last Taken ?Type amlodipine 5 mg tablet 5 mg PO BID htn 04/16/17 10/02/24 History fosinopril 20 mg tablet 20 mg PO DAILY htn 04/16/17 10/02/24 History multivitamin 1 tab PO DAILY VITAMIN 04/16/17 Unknown History aspirin 81 mg tablet,delayed 81 mg PO QDAY heart health 01/06/18 10/01/24 History release (Adult Aspirin Regimen) rosuvastatin 10 mg tablet 10 mg PO DAILY CHOLESTEROL 10/17/21 Unknown History metoprolol tartrate 50 mg tablet 50 mg PO BID HEART #60 tabs 04/27/22 10/02/24 Rx fiber 1 tab PO DAILY constipation 09/29/24 Unknown History clopidogrel 75 mg tablet 75 mg PO DAILY blood thinner 04/30/25 Unknown History pantoprazole 20 mg tablet,delayed 20 mg PO QDAY GERD #90 tabs 05/01/25 Unknown Rx release (Protonix) Allergy/AdvReac Type Severity Reaction Status Date / Time atorvastatin (From Lipitor) AdvReac Intermediate Myalgias Verified 04/30/25 08:27 Family History Father , of cancer Myocardial infarction, Onset Age: 70 Cancer kidney Mother , age 66 Bleeding in brain due to brain aneurysm Brother Myocardial infarction, Onset Age: 62 CAD (coronary artery disease) Surgical History History of wisdom tooth extraction History of colonoscopy History of cardiac catheterization History of esophagogastroduodenoscopy (EGD) H/O bilateral cataract extraction History of back surgery S/P femoral-femoral bypass surgery Stented coronary artery (~09/21/03) History of left heart catheterization (~04/02/22) Social History household members: spouse current occupational status: employed current occupation: [employer] Smoking Status: Former smoker quit date: 06/14/01 pack-years: 20 Electronic Cigarette Use: not used how long ago did patient quit smokin alcohol intake: never substance use type: does not use do you feel safe at home: Yes Audit: Pertinent Findings Pertinent Findings EKG Perinent findings: 05/01/2025. Sinus bradycardia 59 bpm. Stress test pertinent findings: 10/30/2024. EF 63%. Normal myocardial perfusion stress test. Echo (EF%) pertinent findings: 10/30/2024. EF 60%. Normal function. Consult pertinent findings: Cardiology 04/06/2025. Frequent PVCs. Continue metoprolol. Coronary artery disease. History of stenting of ostium of diagonal 2003. Recent stress test 10/31/2024 negative. Stable. Recommendation Anesthesia Recommendation Anesthesia recommendation: OPTIMIZED for anesthesia
[2025-05-14] VITALS (19 sets, daily range): BP systolic 115–162; BP diastolic 56–89; PULSE 57–92; RESP 14–18; TEMP 36.2–36.6; O2SAT 90–99; BMI 23.9; BMI 24.7
--- OUTSIDE RECORDS SUMMARY | 2025-05-14 05:32 | XMS RPT_ITS | CCD ---
Author Organization [facility] Care Team Providers Care Field Irrigation Worker Name Role Phone SUNG BAUGH Unavailable Unavailabl SUNG Villa Unavailable Unavailabl e BISI MARTINEZ Unavailable Unavailab SUNG Devlin Unavailable Unavailabl e BISI MARTINEZ Unavailable Unavailab SUNG Devlin Unavailable Unavailabl e BISI MARTINEZ Unavailable Unavailab SUNG Devlin Unavailable Unavailable KATHERINE, KATHLEE Unavailable Unavailable KATHERINE, KATHLEE Unavailable Unavailable SUNG BAUGH Unavailable Unavailable KATHERINE, KATHLEE Unavailable Unavailable KATHERINE, KATHLEE Unavailable Unavailable WAGNER BAUGHNIS J Unavailable Unavailable KATHERINE, KATHLEE Unavailable Unavailable KATHERINE, KATHLEE Unavailable Unavailable Katherine, Bisi Unavailable Gravius, Pauline Unavailable Unavailable Franchesca Miranda Unavailable Unavailable Manchak, Chelsey Unavailable Unavailable Unavailable Unavailable Katherine, Bisi Unavailable Gravius, Pauline Unavailable Unavailable Manchak, Chelsey Unavailable Unavailable Unavailable Unavailable Franchesca Miranda Unavailable Unavailable MilanaPrema rojas Unavailable Unavailable Adriano, Kaitlynn Unavailable Unavailable Robby Pereira Unavailable Unavailable Unavailable Katherine DO, Bisi Unavailable Robby Pereira MD Unavailable Gravius ELASTIC TAPE INSERTER, Pauline Unavailable Unavailable Cross GEORGE, Kaitlynn Unavailable Unavailable Manchak ELASTIC TAPE INSERTER, Chelsey Unavailable Unavailable Franchesca Miranda RN Unavailable Unavailable Unavailable Unavailable Milana VAZQUEZ, Prema Unavailable Unavailable La CONDE, Twyla Newton Unavailable Unavailable Roof FILM PROJECTOR OPERATOR, Anthony Henriquez Unavailable DeFinis, Lidia Y Unavailable Unavailable Benjy, Kalie Y Unavailable Burleson, Kalie Y Unavailable Sarais, Harumi Y Unavailable Unavailable La CONDE, Twyla Newton Unavailable Unavailable Dr. Bisi Martinez Primary Care Provider [phone] Dr. Bisi Martinez Referring Provider Dr. Michael Matta Attending Provider [phone] Bisi Martinez DO Unavailable [phone] Harish FILM PROJECTOR OPERATOR, FILM PROJECTOR OPERATOR-C Franchesca Attending Provider Dr. Bisi Martinez Primary Care Provider [phone] Dr. Bisi Martinez Referring Provider Harish FILM PROJECTOR OPERATOR, FILM PROJECTOR OPERATOR-C Franchesca Referring Provider Harish FILM PROJECTOR OPERATOR, FILM PROJECTOR OPERATOR-C Franchesca Other Provider [phone] Dr. Perez Smith Attending Provider [phone] Bisi Martinez DO Unavailable [phone] Randall SOTO, Robby Borrego Unavailable Gravius ELASTIC TAPE INSERTER, Pauline Unavailable Unavailable Cross [employer], Kaitlynn Unavailable Unavailable Mancesilia ELASTIC TAPE INSERTER, Chelsey Unavailable Unavailable Milana ELLISONN, Prema Unavailable Unavailable Ruth CONDE, Franchesca Unavailable Unavailable Unavailable Unavailable Dr. Bisi Martinez Primary Care Provider [phone] Dr. Bisi Martinez Referring Provider [phone] Harish FILM PROJECTOR OPERATOR, FILM PROJECTOR OPERATOR-C Franchesca Attending Provider Dr. Perez Smith Attending Provider [phone] Dr. Perez Smith Referring Provider [phone] Dr. Perez Smith Other Provider [phone] Bisi Martinez DO Unavailable [phone] Dr. Bisi Martinez Primary Care Provider [phone] Dr. Bisi Martinez Referring Provider [phone] Harish FILM PROJECTOR OPERATOR, FILM PROJECTOR OPERATOR-C Franchesca Attending Provider Dr. Perez Smith Attending Provider [phone] Dr. Perez Smith Referring Provider [phone] Dr. Perez Smith Other Provider KATHERINE HUERTA, DR MATHEWS Primary Care Physician FUAD HUERTA, ROBBY Attending Unavailable KATHERINE HUERTA, DR. MATHEWS Primary Care Unavaila ble BOSWELL DO, ROBBY Attending Unavailable KATHERINE , DR. MATHEWS Primary Care Unavaila ble BOSWELL DO, ROBBY Admitting Unavailable CHAVA LEA MD Consulting Unavailable MICHAEL, JASON Woodson Consulting Unavailable FAHAD SOTO, AMBER Borrego Consulting Unavailable Dr. Bisi Martinez Primary Care Provider [phone] Dr. Bisi Martinez Referring Provider Harish FILM PROJECTOR OPERATOR, FILM PROJECTOR OPERATOR-C Franchesca Attending Provider Dr. Perez Smith Attending Provider [phone] Gilda Hogue MA Unavailable Unavailable Troy ELASTIC TAPE INSERTER, Kayela Unavailable Unavailable Katherine HUERTA, Bisi Attending Unavailable Katherine HUERTA, Bisi Referring Unavailable Katherine HUERTA, Bisi Consulting Unavailable Dr. Bisi Martinez Primary Care Provider [phone] Dr. Bisi Martinez Referring Provider Dr. Shell Siddiqui Attending Provider [phone] Dr. Shell Siddiqui Primary Care Provider Dr. Shell Siddiqui Referring Provider [phone]) Dr. Shell Siddiqui Attending Provider [phone] Dr. Bisi Martinez Referring Provider Harish FILM PROJECTOR OPERATOR, FILM PROJECTOR OPERATOR-C Franchesca Attending Provider Dr. Shell Siddiqui Primary Care Provider Dr. Shell Siddiqui Attending Provider [phone] Dr. Shell Siddiqui Referring Provider [phone] Shell Siddiqui MD Primary Care Provider [phone] Dr. Bisi Martinez Referring Provider Harish FILM PROJECTOR OPERATOR, FILM PROJECTOR OPERATOR-C Franchesca Attending Provider Dr. Shell Siddiqui Primary Care Provider Dr. Shell Siddiqui Attending Provider [phone] Dr. Shell Siddiqui Referring Provider [phone] Dr. Michael Matta Attending Provider [phone] ERVIN ANDERSON Referring Unavailable AGUILA, SHELL AIYANA Primary Care Unavailable COURTNEY CHU Attending Unavailable SHELL SIDDIQUI AIYANA Admitting Unavailable AGUILA, SHELL AIYANA Primary Care Unavailable AGUILA, SHELL AIYANA Referring Unavailable ERVIN ANDERSON Attending Unavailable ERVIN ANDERSON Attending Unavailable AGUILA, SHELL AIYANA Primary Care Unavailable Dr. Shell Siddiqui Primary Care Provider Dr. Shell Siddiqui Attending Provider [phone] Dr. Shell Siddiqui Referring Provider [phone] Dr. Alexandr Hopkins Attending Provider Harish FILM PROJECTOR OPERATOR, FILM PROJECTOR OPERATOR-C Franchesca Attending Provider Dr. Alexandr Hopkins Other Provider Dr. Shell Siddiqui Primary Care Provider Dr. Shell Siddiqui Attending Provider [phone] Dr. Shell Siddiqui Referring Provider [phone] Harish FILM PROJECTOR OPERATOR, FILM PROJECTOR OPERATOR-C Franchesca Referring Provider Harish FILM PROJECTOR OPERATOR, FILM PROJECTOR OPERATOR-C Franchesca Other Provider 1(330) Dr. Michael Matta Attending Provider [phone] Mau Palencia MD Unavailable [phone] Shell Siddiqui MD Primary Care Provider [phone] SHELL SIDDIQUI Primary Care Unavailable OK NICOLAS Referring Unavailable SHELL SIDDIQUI Primary Care Unavailable Dr. Shell Sididqui MD Primary Care Provider [phone] Evelyn, WINSOME. [facility] Attending Provider WINSOME Rivas. Juani Referring Provider Aguila SOTO, Dr. García Referring Provider Fabio SOTO, Dr. Humphries Attending Provider Sigrid SOTO, Dr. Rodriguez Attending Provider [phone] Fabio SOTO, Dr. Humphries Referring Provider Zia SOTO, Dr. Mayfield Attending Provider Zia SOTO, Dr. Mayfield Referring Provider Aguila SOTO, Dr. García Primary Care Provider [phone] Bharathi SOTO, Dr. Bustamante Attending Provider Bharathi SOTO, Dr. Bustamante Referring Provider [phone] Aguila SOTO, Dr. García Primary Care Provider [phone] Fabio SOTO, Dr. Humphries Attending Provider Aguila SOTO, Dr. García Referring Provider Sigrid SOTO, Dr. Rodriguez Attending Provider [phone] Zia SOTO, Dr. Mayfield Other Provider [phone] Aguila SOTO, Dr. García Primary Care Provider [phone] Aguila SOTO, Dr. García Referring Provider Zia SOTO, Dr. Mayfield Attending Provider Zia SOTO, Dr. Mayfield Referring Provider Sigrid SOTO, Dr. Rodriguez Attending Provider [phone] Connie Wolef Attending Provider [phone] Yandel Mccarthy Attending Unavailable Aguila, Shell Primary Care Unavailable [place], Shell Referring Unavailable Alexandr Lizarraga Attending Unavailable [place], Shell Primary Care Unavailable [place], Shell Referring Unavailable Alexandr Lizarraga Attending Unavailable [place], Shell Primary Care Unavailable Alexandr Lizarraga Referring Unavailable [place], Shell Primary Care Unavailable Sigrid, Michael Attending Unavailable [place], Shell Primary Care Unavailable Alexandr Lizarraga Attending Unavailable Alexandr Lizarraga Referring Unavailable Afton, Juani Referring Unavailable Evelyn, Juani Attending Unavailable Aguila, Shell Primary Care Unavailable Afton, Juani Referring Unavailable Evelyn, Juani Attending Unavailable [place], Shell Primary Care Unavailable [place], Shell Primary Care Unavailable Robby Garvin Referring Unavailable Robby Garvin Attending Unavailable Mccarthy, Yandel Referring Unavailable Mccarthy, Yandel Attending Unavailable [place], Shell Primary Care Unavailable Mccarthy, Yandel Attending Unavailable Mccarthy, Yandel Admitting Unavailable Aguila, Shell Primary Care Unavailable Aguila, Shell Primary Care Unavailable Nando Chávez Referring Unavailable ChávezNando shi Attending Unavailable Aguila, Shell Referring Unavailable [place], Shell Attending Unavailable Aguila, Shell Primary Care Unavailable Mccarthy, Yandel Attending Unavailable [place], Shell Primary Care Unavailable [place], Shell Referring Unavailable [place], Shell Primary Care Unavailable Sigrid, [place] Attending Unavailable [place], Shell Primary Care Unavailable [place], Shell Referring Unavailable Franchesca Moreira Attending Unavailable Anthony Quigley Attending Unavailable [place], Shell Primary Care Unavailable Aguila, Shell Referring Unavailable Aguila, Shell Referring Unavailable Connie Arce Attending Unavailable Aguila, Shell Primary Care Unavailable [place], Shell Primary Care Unavailable Sigrid, [place] Attending Unavailable Alexandr Lizarraga Referring Unavailable Aguila, Shell Primary Care Unavailable Sigrid, Michael Attending Unavailable Alexandr Lizarraga Referring Unavailable [place], Shell Primary Care Unavailable Sigrid, Michael Attending Unavailable Alexandr Lizarraga Consulting Unavailable [place], Shell Referring Unavailable [place], Shell Primary Care Unavailable Alexandr Lizarraga Attending Unavailable [place], Shell Primary Care Unavailable Alexandr Lizarraga Attending Unavailable Alexandr Lizarraga Referring Unavailable Allergies Allergy Classification Reported Allergen(s) Allergy Type Date of Onset Reaction(s) Facility Calcium Channel Blockers (3 sources) dilTIAZem Drug Allergy [facility] Work Phone: Comment on above: cough (1 source) allergy to substance [facility] Work Phone: Comment on above: cough (20 sources) dilTIAZem Drug Allergy [facility] Work Phone: Comment on above: cough (7 sources) atorvastatin Drug Allergy 3 myalgia [facility] Work Phone: (20 sources) atorvastatin Drug Allergy 1 Myalgias [facility] (1 source) Allergy to substance (finding) [facility]; [facility] Work Phone: (1 source) Allergy to substance (finding) [facility]; [facility] Work Phone: (1 source) Allergy to substance (finding) [facility]; [facility] Work Phone: (1 source) Allergy to substance (finding) [facility]; [facility] Work Phone: (1 source) Allergy to substance (finding) [facility]; [facility] Work Phone: (1 source) Allergy to substance (finding) [facility]; [facility] Work Phone: (1 source) atorvastatin Drug Allergy 5 [facility] Repository NEGATED: Highlighted row has been ruled out! (1 source) Allergy to drug (finding) 2 [facility]; [facility] Work Phone: NEGATED: Highlighted row has been ruled out! (1 source) Allergy to drug (finding) 2 [facility]; [facility] Work Phone: NEGATED: Highlighted row has been ruled out! (1 source) Allergy to drug (finding) 2 [facility]; [facility] Work Phone: NEGATED: Highlighted row has been ruled out! (1 source) Allergy to drug (finding) 2 [facility]; [facility] Work Phone: NEGATED: Highlighted row has been ruled out! (1 source) Allergy to drug (finding) 2 [facility]; [facility] Work Phone: NEGATED: Highlighted row has been ruled out! (1 source) Allergy to drug (finding) 2 [facility]; [facility] Work Phone: Medications Current Medications Medication Drug Class(es) Dates Sig (Normalized) Sig (Original) acetaminophen 325 mg / HYDROcodone bitartrate 5 mg oral tablet (20 sources) Opioid Agonist Start: 05-20-2022 End: 05-27-2022 take 1 tablet by mouth every six hours as needed for pain [place] 325- 5 mg oral tablet Dose = 1 tab(s), Oral, q6h, PRN for pain, X 7 day(s), # 28 tab(s), 0 Refill(s), Pharmacy: [facility]/pharmacy #[id number], Lumbar spondylosis, 177.8, cm, 05/20/22 7:02:00 EST, Height, 74.8 Start Date: 05/20/22 Stop Date: 05/27/22 Status: Ordered Start: 10-30-2011 End: 05-23-2012 Start: 10-30-2011 End: 05-23-2012 take 7.5-750 mg by mouth every eight hours as needed VICODIN ES, 7.5-750MG (Oral Tablet) 1 Tablet q8hrs prn pain for 0 days Quantity: 30 {Tablet} Refills: 0 Ordered: 23-May-2012 Franchesca Miranda RN Start : 30-Oct-2011 End : 23-May-2012 Inactive Comments: thirty Comment on above: thirty [id number] 200 actuat albuterol 0.09 mg/actuat metered dose inhaler (4 sources) beta2-Adrenergic Agonist Start: 05-13-20 24 take 2 puff(s) by inhalation every four hours as needed for wheezing albuterol HFA (VENTOLIN HFA) 90 mcg/actuation inhaler Inhale 2 Puffs as instructed every 4 hours as needed for wheezing/shortness of breath. 1 Each 05/13/2024 Active amLODIPine 5 mg oral tablet (20 sources) Dihydropyridine Calcium Channel Jose Eduardo Start: 05-23-20 12 Start: 01-20-2011 take 1 tablet by keshawn th twice daily Amlodipine 5 MG tablet Active 5 mg PO TWICE A DAY April 16, 2017 12:00am aspirin 81 mg delayed release oral tablet (20 sources) Platelet Aggregation Inhibitor, Nonsteroidal Anti-inflammatory Drug Start: 01-06-2018 take 1 tablet by mouth once daily Aspirin (Adult Aspirin Regimen) 81 mg tablet,delayed release (DR/EC) Active 81 mg PO daily January 06, 2018 12:00am Start: 04-16-2017 End: 01-06-2018 take 1 tablet by mouth once daily Aspirin 325 MG tablet Discontinued 325 mg PO DAILY@799April 16, 2017 12:00am January 06, 2018 3:15pm Start: 04-16-2017 End: 04-23-2017 take 1 tablet by mouth once daily Aspirin 81 MG Tab.Chew Discontinued 81 mg PO DAILY@799April 16, 2017 12:00am April 23, 2017 1:27pm Start: 02-22-2006 ASPIRIN 325 MG TAB Take one (1) tablet daily . 0 02/22/2006 Active atorvastatin 40 mg oral tablet (20 sources) HMG-CoA Reductase Inhibitor Start: 05-01-2014 End: 12-28-2016 take 1 tablet by mouth once daily atorvastatin (LIPITOR) 40 mg tablet Take 1 tablet by mouth once daily. 0 09/11/2015 Active Start: 05-01-2014 ATORVASTATIN C ALCIUM 20 MG TABS one half tablet every evening ATORVASTATIN CALCIUM [id number] Mau Palencia MD benzonatate 100 mg oral capsule (4 sources) Non-narcotic Antitussive Start: 05-13-2024 take 2 capsules by mouth every eight hours as needed benzonatate (TESSALON PERLE) 100 mg capsule Take 2 capsules by mouth three times a day as needed. 30 capsule 05/13/2024 Active cefuroxime 500 mg oral tablet (1 source) Cephalosporin Antibacterial Start: 05-24-2022 End: 06-03-2022 cefuroxime 500 mg oral tablet Dose : 500 mg = 1 tab(s), Oral, BID, X 10 day(s), # 20 tab(s), 0 Refill(s), 06/03/22 10:31:00 EST, Pharmacy: [facility]/pharmacy #[id number], 177.8, cm, 05/20/22 13:39:00 EST, Height, 81.8 Start Date: 05/24/22 Stop Date: 06/03/22 Status: Ordered doxycycline hyclate 100 mg oral tablet (20 sources) Tetracycline-class Drug Start: 05-13-2024 End: 05-20-2024 take 1 tablet by mouth twice daily doxycycline (VIBRA-TABS) 100 mg tablet Take 1 tablet by mouth two times a day for 7 days. 14 tablet 05/13/2024 05/20/2024 Active Start: 02-07-2009 End: 03-26-2009 Fiber (4 sources) Start: 09-29-2024 take 1 tablet by mouth once daily Fiber tablet,chewable Active 1 {tbl} PO DAILY September 29, 2024 12:00am fosinopril sodium 20 mg oral tablet (20 sources) Angiotensin Converting Enzyme Inhibitor Start: 04-14-2010 take 1 tablet by mouth once daily Fosinopril 20 MG tablet Active 20 mg PO DAILY April 16, 2017 12:00am End: 05-23-2012 Multivitamin 1 EACH tablet (6 sources) Start: 04-16-2017 Multivitamin 1 EACH tablet Active 1 {tbl} PO DAILY April 16, 2017 12:00am Multivitamin preparation (20 sources) Start: 05-06-2022 take 1 tablet by mouth once daily Multivitamin Dose = 1 tab(s), Oral, Daily, 0 Refill(s) Start Date: 05/06/22 Status: Ordered Start: 04-16-2017 take 1 tablet by keshawn th once daily Multivitamin Active 1 TABLET PO DAILY April 16, 2017 8:31pm Start: 04-16-2017 take 1 tablet by keshawn th once daily Multivitamin Active 1 TABLET PO DAILY April 15, 2017 11:00pm Start: 04-16-2017 take 1 tablet by keshawn th once daily Multivitamin Active 1 TABLET PO DAILY April 16, 2017 12:00am multivitamin with iron Tab (2 sources) Start: 04-17-2009 multivitamin w ith iron Tab Take 1 (one) tablet by mouth . 0 04/17/2009 Active multivitamins(DAILY VITAMIN TAB) (4 sources) Start: 04-17-2009 multivitamins( DAILY VITAMIN TAB) Take one(1) tablet daily. 0 04/17/2009 Active omeprazole 20 mg delayed release oral tablet (4 sources) Proton Pump Inhibitor Start: 09-29-2024 take 1 tablet by mouth once daily Omeprazole 20 mg tablet,delayed release (DR/EC) Active 20 mg PO DAILY Kareen 18th, 2025 12:00am rosuvastatin 10 mg oral capsule (20 sources) HMG-CoA Reductase Inhibitor Start: 05-06-2022 rosuvastatin 10 mg oral capsule Dose : 10 mg = 1 cap(s), Oral, qHS Start Date: 05/06/22 Status: Ordered Start: 10-17-2021 take 1 tablet by keshawn th once daily Rosuvastatin 10 mg tablet Active 10 mg PO DAILY October 17, 2021 8:39am Start: 04-17-2021 End: 10-17-2021 take 1 tablet by mouth twice daily Rosuvastatin 10 mg tablet Discontinued 10 mg PO TWICE A DAY April 17, 2021 3:17pm October 17, 2021 8:39am Start: 04-16-2017 End: 04-17-2021 take 5 mg by mouth twice daily Rosuvastatin 10 MG tabl et Discontinued 5 mg PO TWICE A DAY April 16, 2017 12:00am April 17, 2021 3:18pm Start: 04-16-2017 End: 04-17-2021 take 5 mg by mouth twice daily Rosuvastatin Discontinu ed 5 MG PO TWICE A DAY April 16, 2017 12:00am April 17, 2021 3:18pm Start: 06-04-2008 End: 05-26-2018 take 1 tablet by mouth once daily CRESTOR 10 MG TABS One tablet by mouth daily ROSUVASTATIN CALCIUM [id number] Mau Palencia MD tamsulosin hydrochloride 0.4 mg oral capsule (2 sources) alpha-Adrenergic Jose Eduardo Start: 05-24-2022 Floma x 0.4 mg oral capsule Dose : 0.4 mg = 1 cap(s), Oral, qDay, # 30 cap(s), 0 Refill(s), Pharmacy: [facility]/pharmacy #[id number], 177.8, cm, 05/20/22 13:39:00 EST, Height Start Date: 05/24/22 Status: Ordered Completed/Discontinued Medications Medication Drug Class(es) Dates Sig (Normalized) Sig (Original) acetaminophen 325 mg / oxyCODONE hydrochloride 5 mg oral tablet (6 sources) Opioid Agonist Start: 04-12-2024 End: 06-09-2024 Oxycodone-Acetami nophen 5-325 mg tablet Discontinued 1 {tbl} PO EVERY 6 HOURS NEEDED as needed for Pain 12 3 0 April 12, 2024 June 09, 2024 10:23am Inflammation of sacroiliac joint Sacroiliitis, not elsewhere classified Adult Multivitamin Gummies (4 sources) cefdinir 300 mg oral capsule (20 sources) Cephalosporin Antibacterial Start: 10-12-2014 End: 10-19-2014 cefTRIAXone (1 source) Cephalosporin Antibacterial Start: 05-24-2022 Rocephin Dose : 1 gram(s) =, IV Piggyback, qDay, 0 Refill(s), 81.8 Start Date: 05/24/22 Status: Ordered cilostazol 100 mg oral tablet (20 sources) Phosphodiesterase 3 Inhibitor Start: 01-06-2018 End: 08-01-2018 take 1 tablet by mouth twice daily 30 minutes after breakfast Cilostazol 100 mg tablet Discontinued 100 mg PO TWICE A DAY 60 11 January 06, 2018 12:00am January 06, 2018 4:03pm administer at least 30 minutes before or 2 hours after breakfast and dinner Start: 06-02-2012 End: 05-13-2015 take 1 tablet by mouth twice daily PLETAL 100 MG TABS One tablet by mouth twice daily CILOSTAZOL [id number] Mau Palencia MD ciprofloxacin 500 mg oral ta blet (20 sources) Quinolone Antimicrobial Start: 08-27-2022 End: 09-11-2022 Start: 12-30-2015 End: 01-13-2016 24 hr clarithromycin 500 mg extended release oral tablet (20 sources) Macrolide Antimicrobial Start: 10-14-2006 End: 03-01-2007 Start: 10-14-2006 End: 03-01-2007 take 2 tablets by mouth once daily BIAXIN XL, 500MG (Oral Tablet Extended Release 24 Hour) 2 (two) Tablet ER 24HR Daily for 7 days Quantity: 14 {Tablet_ER_24HR} Refills: 0 Ordered: 14-Oct-2006 Lori Amos Start : 14-Oct-2006 End : 01-Mar-2007 Inactive Start: 10-14-2006 End: 03-01-2007 take 2 tablets by mouth once daily BIAXIN XL, 500MG (Oral Tablet Extended Release 24 Hour) 2 (two) Tablet ER 24HR Daily for 7 days Quantity: 14 {Tablet_ER_24HR} Refills: 0 Ordered: 14-Oct-2006 Lori Amos Start : 14-Oct-2006 End : 01-Mar-2007 Inactive clopidogrel 75 mg oral tablet (20 sources) P2Y12 Platelet Inhibitor Start: 08-01-2018 End: 11-29-2023 take 1 tablet by mouth once daily Clopidogrel 75 mg tablet Discontinued 0 .ROUTE .COMPLEX 90 3 September 07, 2022 10:08am November 29, 2023 9:30am TAKE 1 TABLET BY MOUTH EVERY DAY Plavix daily Act mary colestipol hydrochloride 1000 mg oral tablet (20 sources) Bile Acid Sequestrant Start: 04-14-2010 End: 08-01-2018 take 1 tablet by mouth once daily Colestipol 1 GM tablet Discontinued 1 g PO DAILY April 16, 2017 12:00am August 01, 2018 2:33pm cyclobenzaprine hydrochloride 10 mg oral tablet (20 sources) Muscle Relaxant Start: 04-16-2017 End: 07-06-2017 take 1 tablet by mouth three times daily as needed for muscle spasms Cyclobenzaprine 10 MG tablet Discontinued 10 mg PO 3 TIMES DAILY NEEDED as needed for Muscle Spasm April 16, 2017 12:00am July 06, 2017 1:57pm twice-daily diclofenac epolamine 0.013 mg/mg medicated patch (20 sources) Nonsteroidal Anti-inflammatory Drug Start: 10-30-2011 End: 11-03-2011 dicyclomine hydrochloride 20 mg oral tablet (14 sources) Anticholinergic Start: 11-03-2022 End: 01-13-2023 take 1 tablet by mouth three times daily as needed for pain Dicyclomine 20 mg tablet Discontinued 20 mg PO THREE TIMES A DAY as needed for abdominal pain 30 0 November 03, 2022 12:00am January 13, 2023 9:27am docusate sodium 100 mg oral capsule (14 sources) Start: 11-03-2022 End: 02-24-2023 take 1 capsule by mouth once daily Docusate Sodium 100 mg capsule Discontinued 100 mg PO DAILY 7 November 03, 2022 12:00am February 24, 2023 8:53am ezetimibe 10 mg oral tablet (20 sources) Dietary Cholesterol Absorption Inhibitor End: 05-16-2008 fexofenadine hydrochloride 180 mg oral tablet (20 sources) Histamine-1 Receptor Antagonist Start: 10-14-2006 End: 04-07-2007 gabapentin 600 mg oral tablet (20 sources) Anti-epileptic Agent Start: 10-13-2022 End: 07-27-2023 Gabapentin 600 mg tablet Discontinued 300 mg PO DAILY October 13, 2022 8:53am July 27, 2023 3:27pm Start: 10-13-2022 End: 07-27-2023 take 300 mg by mouth once daily Gabapentin Discontinue d 300 MG PO DAILY October 13, 2022 8:53am July 27, 2023 3:27pm Start: 03-22-2020 End: 10-13-2022 take 1 tablet by mouth twice daily Gabapentin 600 mg tablet Discontinued 600 mg PO TWICE A DAY April 17, 2021 3:18pm October 13, 2022 8:53am Start: 03-22-2020 take 1 tablet by keshawn once daily Gabapentin 600 MG Oral Tablet 1 (one) Tablet daily for 0 days Quantity: 90 {Tablet} Refills: 2 Ordered: 22-Mar-2020 Bisi Martinez DO, DO, Kathleen Start : 22-Mar-2020 Active Comments: epifanio gets from [place] Start: 05-13-2017 take 1 tablet by keshawn three times daily Gabapentin 600 MG Oral Tablet 1 (one) Tablet tid for 0 days Quantity: 90 {Tablet} Refills: 2 Ordered: 13-May-2017 Bisi Martinez DO, DO, Kathleen Start : 13-May-2017 Active Comments: epif[place] gets [place] Start: 04-16-2017 End: 04-17-2021 Gabapentin 600 MG tablet Discontinued 300 mg PO THREE TIMES A DAY April 16, 2017 12:00am April 17, 2021 3:18pm Start: 04-16-2017 End: 04-17-2021 take 300 mg by mouth three times daily Gabapentin Discontinued 300 MG PO THREE TIMES A DAY April 16, 2017 12:00am April 17, 2021 3:18pm Start: 04-15-2016 End: 08-24-2023 take 1 capsule by mouth twice daily Gabapentin 300 mg capsule Discontinued 300 mg PO TWICE A DAY August 24, 2023 12:00am August 24, 2023 10:07am Comment on above: geovanyadelia gets f [facility] levoFLOXacin 500 mg oral tablet (20 sources) Quinolone Antimicrobial Start: 09-16-2009 End: 09-27-2009 lidocaine 0.05 mg/mg medicated patch (6 sources) Antiarrhythmic, Amide Local Anesthetic Start: 04-12-2024 End: 06-09-2024 Lidocaine (Lidoderm) 5 % adhesive patch,medicated Discontinued 1 NMA TOPICAL DAILY as needed for pain 15 0 April 12, 2024 2:10pm June 09, 2024 10:23am leave on most painful area for up to 12 hrs lisinopril 20 mg oral tablet (20 sources) Angiotensin Converting Enzyme Inhibitor Start: 05-23-2012 End: 05-26-2018 LORazepam 1 mg oral tablet (20 sources) Benzodiazepine Start: 02-26-2017 End: 05-26-2018 Comment on above: one 24 hr metFORMIN hydrochloride 500 mg extended release oral tablet (20 sources) Biguanide Start: 04-16-2021 Start: 09-19-2020 End: 01-13-2023 take 1 tablet by mouth once daily Metformin 500 mg tablet Discontinued 500 mg PO DAILY September 19, 2020 12:00am January 13, 2023 9:27am Start: 08-22-2020 take 1 tablet by keshawn th once daily metFORMIN HCl ER 500 MG Oral Tablet Extended Release 24 Hour 1 (one) Tablet qd for 0 days Quantity: 30 {Tablet} Refills: 4 Ordered: 31-Oct-2020 Bisi Martinez DO, DO, Kathleen Start : 31-Oct-2020 Active MEDROL (LUIS EDUARDO), 4MG (Oral Tabl et) (20 sources) Corticosteroid Start: 10-26-2011 End: 11-10-2011 Start: 10-26-2011 End: 11-10-2011 MEDROL (LUIS EDUARDO), 4MG (Oral Tabl et) 1 Tablet TAD for 0 days Quantity: 1 {Package(s)} Refills: 0 Ordered: 10-Nov-2011 Start : 26-Oct-2011 End : 10-Nov-2011 Inactive Comments: wean 28mg to 4mg over 7days Comment on above: wean 28mg to 4mg ove r 7days metoprolol tartrate 50 mg oral tablet (20 sources) beta-Adrenergic Jose Eduardo Start: 03-23-2022 End: 03-23-2022 Metoprolol Tartrate 50 mg tablet Discontinued 25 mg PO TWICE A DAY March 23, 2022 10:13am March 23, 2022 10:30am Start: 03-23-2022 End: 03-23-2022 take 25 mg by mouth twice daily Metoprolol Tartrate Di scontinued 25 MG PO TWICE A DAY March 23, 2022 10:13am March 23, 2022 10:30am Start: 03-16-2022 End: 05-24-2022 take 1 tablet by mouth twice daily Metoprolol Tartrate 50 mg tablet Discontinued 50 mg PO TWICE A DAY 60 April 02, 2022 1:31pm April 27, 2022 8:59am Start: 09-19-2020 End: 03-16-2022 take 1 tablet by mouth twice daily Metoprolol Tartrate 25 mg tablet Discontinued 25 mg PO TWICE A DAY September 19, 2020 10:04am March 16, 2022 9:14am Start: 01-06-2018 End: 09-19-2020 Metoprolol Tartrate 25 mg ta blet Discontinued 12.5 mg PO TWICE A DAY August 01, 2018 2:34pm September 19, 2020 10:04am Start: 01-06-2018 End: 09-19-2020 take 12.5 mg by mouth twice daily Metoprolol Tartrate Discontinued 12.5 MG PO TWICE A DAY August 01, 2018 2:34pm September 19, 2020 10:04am Start: 07-06-2017 End: 01-06-2018 take 1 tablet by mouth twice daily Metoprolol Tartrate 25 MG tablet Discontinued 25 mg PO TWICE A DAY July 06, 2017 1:58pm January 06, 2018 3:28pm Start: 05-04-2013 End: 07-02-2017 take 1 tablet by mouth twice daily Metoprolol Tartrate 25 MG tablet Discontinued 25 mg PO TWICE A DAY April 16, 2017 12:00am July 02, 2017 9:42am Start: 05-04-2013 End: 07-06-2017 take 1 tablet by mouth once daily Metoprolol Tartrate 25 MG tablet Discontinued 25 mg PO daily July 02, 2017 9:40am July 06, 2017 1:58pm Start: 07-15-2012 take 1 tablet by keshawn th once daily TOPROL XL 25 MG [id number] One tablet by mouth daily METOPROLOL SUCCINATE [id number] Tayo Isbell MD MULTIPLE VITAMINS-MINERALS (5 sources) Start: 12-28-2016 take 1 tablet by mouth once daily MULTIVITAMIN ADULT TABS One tablet by mouth daily MULTIPLE VITAMINS-MINERALS [id number] Anthony Quigley FILM PROJECTOR OPERATOR Multivitamin Adult (3 sources) take 1 tablet by mouth once ronald y Multivitamin Adult Oral Tablet Chewable 1 daily Active Multivitamin Adult Oral Tablet Chewable (20 sources) take 1 tablet by mouth once daily Multivitamin Adult Oral Tablet Chewable 1 daily Active naproxen 500 mg oral tablet (20 sources) Nonsteroidal Anti-inflammatory Drug Start: 3 End: 3 Start: 11-10-2011 End: 05-23-2012 Comment on above: with food NIFEdipine 20 mg oral capsule (20 sources) Dihydropyridine Calcium Channel Jose Eduardo Start: 04-07-2007 End: 04-07-2007 nitroglycerin 0.4 mg sublingual tablet (20 sources) Nitrate Vasodilator Start: 07-02-2017 End: 03-13-2019 Nitroglycerin 0.4 mg tablet, sublingual Discontinued 0.4 mg SL every 5 to 15 minutes as needed July 02, 2017 1:00am March 13, 2019 1:09pm Start: 07-02-2017 End: 03-13-2019 Nitroglycerin Discontinued 0 .4 MG SL every 5 to 15 minutes July 02, 2017 1:00am March 13, 2019 1:09pm Start: 08-17-2012 NITROSTAT 0.4 MG SUBL 1 tablet under tongue every 5 min up to 3 X NITROGLYCERIN [id number] Tayo Isbell MD Start: 01-20-2011 NITROGLYCERIN 0.4 MG/HR PT24 1 tablet under tongue every 5 min up to 3 X NITROGLYCERIN [id number] Tayo Isbell MD oxyCODONE hydrochloride 5 mg oral tablet (20 sources) Opioid Agonist Start: 04-16-2017 End: 07-06-2017 take 1 tablet by mouth every six hours as needed for pain Oxycodone 5 MG tablet Discontinued 5 mg PO EVERY 6 HOURS NEEDED as needed for Pain April 16, 2017 12:00am July 06, 2017 1:58pm pantoprazole 40 mg delayed release oral tablet (20 sources) Proton Pump Inhibitor Start: 01-13-2023 End: 08-24-2023 take 1 tablet by mouth once daily Pantoprazole (Protonix) 40 mg tablet,delayed release (DR/EC) Discontinued 40 mg PO DAILY 30 3 May 13, 2023 8:55am July 27, 2023 3:57pm predniSONE 20 mg oral tablet (20 sources) Start: 10-21-2016 End: 11-24-2016 psyllium 3400 mg powder for oral suspension (14 sources) Start: 11-03-2022 End: 08-24-2023 Psyllium Husk (Metamucil) 3.4 gram/5.4 gram powder Discontinued 1 tbsp PO DAILY 660 0 November 03, 2022 12:00am August 24, 2023 9:57am mix into at least 8 oz of water or juice before administering Start: 11-03-2022 End: 08-24-2023 Psyllium Husk (Metamucil) 3. 4 gram/5.4 gram powder Discontinued 1 tbsp PO DAILY 660 November 03, 2022 12:00am August 24, 2023 9:57am mix into at least 8 oz of water or juice before administering ramipril 2.5 mg oral capsule (20 sources) Angiotensin Converting Enzyme Inhibitor End: 04-07-2007 rifAXIMin 550 mg oral tablet (9 sources) Rifamycin Antibacterial Start: 07-14-2023 End: 08-24-2023 take 1 tablet by mouth three times daily Rifaximin 550 mg tablet Discontinued 550 mg PO THREE TIMES A DAY 42 0 July 14, 2023 1:00am August 24, 2023 9:57am sucralfate 100 mg/ml oral suspension (9 sources) Aluminum Complex Start: 08-26-2023 End: 02-11-2024 take 1 g by mouth every six hours Sucralfate (Carafate) 100 mg/mL suspension Discontinued 1 g PO EVERY 6 HOURS 1120 28 0 August 26, 2023 12:00am February 11, 2024 8:54am Gastroduodenitis Gastroduodenitis, unspecified, without bleeding temazepam 15 mg oral capsule (20 sources) Benzodiazepine Start: 11-14-2007 End: 10-22-2008 CHOLECALCIFEROL (14 sources) Start: 05-04-2013 take 2 tablets by mouth once daily VITAMIN D 1000 UNIT TABS Two tablets by mouth daily CHOLECALCIFEROL [id number] Mau Palencia MD Start: 05-04-2013 End: 05-13-2015 take 2 tablets by mouth once daily VITAMIN D 1000 UNIT TABS Two tablets by mouth daily CHOLECALCIFEROL [id number] Mau Palencia MD Start: 05-04-2013 take 2 tablets by mo uth once daily VITAMIN D 1000 UNIT TABS Two tablets by mouth daily CHOLECALCIFEROL [id number] Mau Palencia MD Start: 05-04-2013 End: 05-13-2015 take 2 tablets by mouth once daily VITAMIN D 1000 UNIT TABS Two tablets by mouth daily CHOLECALCIFEROL [id number] Mau Palencia MD Problems Active Problems Problem Classification Problem Date Documented Da te Episodic/Chronic Abdominal hernia (15 sources) Umbilical hernia; Translations: [Umbilical hernia without obstruction or gangrene] 07-27-2023 Episodic Comment on above: This is a 77-year-ol d male with an incidental finding of umbilical hernia that measures 7 mm x 8 mm on recent CTA imaging. It shows that it contains a small tuft of fat. Indeed, on exam patient has some fatty tissue within this hernia that is soft and at least partially reducible. While he has some sharp discomfort with this exam it is not the same discomfort of which he complains in association with his bloating. Therefore, I find it unlikely that his symptoms are arising from his hernia and given its small size and is otherwise significant medical risk do not see a benefit in pursuing operative repair of this hernia at this time. This impression was clearly shared with Mr. Hodges. Abdominal pain (12 sources) Abdominal pain; Translations: [Unspecified abdominal pain] Onset: 2 Episodic Acute myocardial infarction (20 sources) Acute myocardial infarction of unspecified site, episode of care unspecified; Translations: [MYOCARDIAL INFARCTION, NOS] Resolved: 6 10-07-2016 Chronic Comment on above: Non Q wave Administrative/social admission (20 sources) Medical examinations/reports status; Translations: [Diabetic education completed] 09-01-2017 Episodic Aortic; peripheral; and visceral artery aneurysms (20 sources) Aneurysm of unspecified site; Translations: [ANEURYSM, NOS] Onset: 1 Resolved: 6 10-07-2016 Chronic Comment on above: inter atrial septum with trivial rt to lt inter atrial shunt, possible PFO Cardiac dysrhythmias (20 sources) Nonsustained ventricular tachycardia ; Translations: [Nonsustained ventricular tachycardia] Onset: 5 03-16-2022 Chronic Coronary atherosclerosis and other heart disease (20 sources) Coronary arteriosclerosis; Translations: [Coronary artery disease] Onset: 1 Resolved: 6 05-26-2018 Chronic Comment on above: 2002-- then stent pl acmeent 2003 stress test 11/02- no rmal PTCA with stent of O stium of firts major dx 09/21/2003 Diabetes mellitus with complications (1 source) Type 2 diabetes mellitus with diabetic peripheral angiopathy without gangrene; Translations: [Type 2 diabetes mellitus with diabetic peripheral angiopathy without gangrene] Onset: 5 Chronic Diabetes mellitus without complication (20 sources) Type 2 diabetes mellitus; Translations: [Type II diabetes mellitus, well controlled] Onset: 2 08-15-2020 Chronic Comment on above: DIET CONTROLLED Diabetes mellitus without complication (6 sources) Prediabetes; Translations: [Other abnormal glucose] 05-10-2023 Episodic Diabetes mellitus without complication (20 sources) Diabetes mellitus without complication Disorders of lipid metabolism (20 sources) Hyperlipidemia, unspecified; Translations: [Hyperlipidemia] Onset: 1 09-01-2017 Chronic Diverticulosis and diverticulitis (4 sources) Diverticulosis of colon; Translations: [Diverticulosis of large intestine without perforation or abscess without bleeding] Onset: 6 12-23-2023 Chronic Esophageal disorders (12 sources) Gastroesophageal reflux disease; Translations: [Gastro-esophageal reflux disease without esophagitis] 07-27-2023 Chronic Comment on above: Patient with progres sive symptoms which she finds distressing 3-4 times per week. He is not presently on any PPI medication. He takes Tums symptomatically. With his progressive reflux and bloating complaints I find his history somewhat suspicious for possible H. pylori or dyspepsia. Therefore, I have recommended we pursue EGD with biopsy. Mr. Hodges is receptive of this recommendation as he is eager to find out the cause for the symptoms as described in his HPI. He will need to have his Plavix held for 5 days in anticipation of his procedure. We will look for approval to hold this antiplatelet. In the interim, I have advised him to begin PPI medication since it is likely going to be a month or so until we are able to pursue an EGD. Essential hypertension (20 sources) Hypertensive disorder; Translations: [Hypertension with heart disease] Onset: 1 09-01-2017 Chronic Comment on above: CONTROLLED WITH MED Gastritis and duodenitis (20 sources) Acute gastritis; Translations: [Gastritis, acute] Resolved: 6 01-15-2016 Episodic Comment on above: Chronic, interactive 3 metaplasia on biopsy Gastroduodenal ulcer (except hemorrhage) (20 sources) Peptic ulcer; Translations: [Peptic ulcer disease] Resolved: 5 01-15-2016 Chronic Genitourinary symptoms and ill-defined conditions (20 sources) Dysuria; Translations: [Abnormal urine] Resolved: 6 09-01-2017 Episodic Hypertension with complications and secondary hypertension (20 sources) 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 failure; Translations: [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 chronic kevin n?- cv related? prob related to slee p deprivation -- Neoplasms of unspecified nature or uncertain behavior (20 sources) Neoplasm of uncertain behavior of skin; Translations: [Neoplasm of uncertain behavior of skin] Resolved: 6 10-07-2016 Episodic Occlusion or stenosis of precerebral arteries (4 sources) Carotid artery stenosis; Translations: [Occlusion and stenosis of unspecified carotid artery] 04-24-2016 Chronic Other aftercare (4 sources) Surgical follow-up; Translations: [Visit for suture removal] 04-08-2020 Episodic Other aftercare (20 sources) Encounter for removal of sutures; Translations: [Removal of sutures done] Resolved: 1 07-25-2020 Episodic Other bone disease and musculoskeletal deformities (6 sources) Somatic dysfunction of sacroiliac joint; Translations: [Segmental and somatic dysfunction of sacral region] 04-20-2024 Episodic Other circulatory disease (20 sources) History of arterial bypass of lower limb artery; Translations: [Presence of other vascular implants and grafts] 07-02-2017 Chronic Comment on above: Right to left fem-fe m bypass ? year and facitily; f/u angiography of aorta 01/15/2014 @ [facility] Other circulatory disease (2 sources) Other specified symptoms and signs involving the circulatory and respiratory systems; Translations: [Other specified symptoms and signs involving the circulatory and respiratory systems] Onset: 8 Episodic Other circulatory disease (20 sources) Cardiovascular symptoms; Translations: [Other symptoms involving cardiovascular system] 09-01-2017 Episodic Comment on above: asa daily and cta is ok nonivnasive and risk factor following Other circulatory disease (20 sources) Carotid bruit; Translations: [Bilateral carotid bruits] 07-02-2021 Episodic Comment on above: doppler 07/05-- do ct a next yrsees dr Chávez as well for LE PVD Other connective tissue disease (20 sources) Heel pain; Translations: [Heel pain] Resolved: 6 01-15-2016 Episodic Other connective tissue disease (20 sources) Pain in left lower limb; Translations: [Pain of left lower extremity] Resolved: 7 05-13-2017 Episodic Other connective tissue disease (2 sources) Spasm; Translations: [Other muscle spasm] Onset: 2 Episodic Other diseases of veins and lymphatics (20 sources) Unspecified circulatory system disorder; Translations: [VASCULAR DISEASE, NOS] 09-01-2017 Episodic Comment on above: last carotids 01/25 Other ear and sense organ disorders (2 sources) Hearing loss; Translations: [Unspecified hearing loss, unspecified ear] 05-11-2023 Chronic Other ear and sense organ disorders (8 sources) Unspecified hearing loss, unspecified ear; Translations: [Unspecified hearing loss] Onset: 4 05-10-2023 Chronic Other ear and sense organ disorders (3 sources) Sensorineural hearing loss, bilateral; Translations: [Sensorineural hearing loss, bilateral] Onset: 4 06-22-2023 Chronic Other ear and sense organ disorders (1 source) Sensorineural hearing loss, bilateral; Translations: [Sensorineural hearing loss, bilateral] Onset: 4 Chronic Other gastrointestinal disorders (14 sources) Abdominal distension (gaseous); Translations: [Flatulence, eructation, and gas pain] 01-13-2023 Episodic Other lower respiratory disease (20 sources) Cough; Translations: [Cough] Resolved: 9 05-23-2012 Episodic Comment on above: Considering all diff erentials- denies heartburn or postnasal- considering possible allergies [...] take script if worsen over the weekend. Other lower respiratory disease (2 sources) Cough; Translations: [Acute cough] 05-13-2024 Episodic Other nervous system disorders (20 sources) Claudication 09-01-2017 Chronic Comment on above: from lumbar- had mri - did PT Other nervous system disorders (20 sources) Claudication 08-15-2020 Episodic Comment on above: from lumbar- had mri - did PT Other non-traumatic joint disorders (20 sources) Hip pain; Translations: [Bilateral hip pain] Resolved: 6 09-01-2017 Episodic Comment on above: edema in femoral nec k, small joint effusion/transient osteoporosis,sending to [facility] also seeing dr Erin reyes to address vascular etiology - Other nutritional; endocrine; and metabolic disorders (20 sources) Body mass index 25-29 - overweight; Translations: [BMI 26.0-26.9,adult] 09-01-2017 Chronic Other nutritional; endocrine; and metabolic disorders (20 sources) Body mass index 30+ - obesity; Translations: [BMI 30.0-30.9,adult] 05-26-2018 Chronic Other nutritional; endocrine; and metabolic disorders (20 sources) Body mass index 25-29 - overweight; Translations: [BMI 25.0-25.9,adult] Resolved: 2 08-15-2020 Episodic Other nutritional; endocrine; and metabolic disorders (20 sources) Overweight in adulthood with body mass index of 25 or more but less than 30; Translations: [BMI 25.0-25.9,adult] Resolved: 3 01-15-2022 Episodic Other skin disorders (20 sources) Sebaceous cyst; Translations: [Sebaceous cyst of skin] Episodic Other skin disorders (20 sources) Folliculitis; Translations: [Folliculitis] Resolved: 6 01-15-2016 Episodic Other skin disorders (4 sources) Epidermoid cyst of skin; Translations: [Sebaceous cyst] 09-01-2017 Episodic Other skin disorders (20 sources) Sebaceous cyst of skin; Translations: [Sebaceous cyst] 04-08-2020 Episodic Comment on above: neck -- bothers him will resect Other upper respiratory infections (1 source) Acute upper respiratory infection, unspecified; Translations: [Acute upper respiratory infection, unspecified] Onset: 5 Episodic Peripheral and visceral atherosclerosis (20 sources) Peripheral vascular disease, unspecified; Translations: [Peripheral vascular disease] Onset: 6 05-26-2018 Chronic Comment on above: h/o fem/ fem bypass but no stenoiss - saw dr cooper 2018--- fem fem grafts open-- common iliacs occluded adn buttock area is getting flow from collaterals in fem area -- left sided buttock pain is prob claudication but didnt tolerate pletal and didnt affect pain clinically anyway so rec to stop it - no surgical intervention options at this time-- palpable pulses -- Baugh following--dr baugh following carotids as well dr Saira Chávez- recently fall 2020 had stents dilated lil bit in lower extremities- fu appt in jul 2021 - will tellhim about hip pain and will do dopplers of carotid now to have for appt -- Residual codes; unclassified (7 sources) Periodic limb movement disorder; Translations: [Periodic limb movement disorder] Onset: 4 08-04-2013 Chronic Residual codes; unclassified (11 sources) Obstructive sleep apnea syndrome; Translations: [Obstructive sleep apnea (adult) (pediatric)] Onset: 4 08-04-2013 Chronic Residual codes; unclassified (1 source) Sleep apnea; Translations: [Sleep apnea, unspecified] Onset: 2 Chronic Residual codes; unclassified (20 sources) Memory impairment; Translations: [Memory impairment] 09-01-2017 Episodic Comment on above: no meds to start tom or to surgery so will do nutrition and read BYB book Residual codes; unclassified (20 sources) Family history of aneurysm of artery; Translations: [Family history of brain aneurysm] 11-24-2016 Episodic Comment on above: mother Residual codes; unclassified (20 sources) Needs influenza immunization; Translations: [Need for prophylactic vaccination and inoculation against influenza (Renamed from Need for immunization against influenza)] 09-01-2017 Episodic Residual codes; unclassified (20 sources) FH: Aortic aneurysm; Translations: [Family history of abdominal aortic aneurysm] 09-01-2017 Episodic Comment on above: brother Residual codes; unclassified (20 sources) Non-smoker; Translations: [Non-smoker] 10-31-2020 Episodic Respiratory failure; insufficiency; arrest (adult) (10 sources) Respiratory failure; insufficiency; arrest (adult) Screening and history of mental health and substance abuse codes (20 sources) Tobacco use and exposure - finding; Translations: [History of tobacco abuse] 09-01-2017 Chronic Comment on above: 30 yr history with 1 .5 packs a day Screening and history of mental health and substance abuse codes (20 sources) Tobacco use and exposure - finding; Translations: [History of tobacco abuse] 08-15-2020 Episodic Comment on above: 30 yr history with 1 .5 packs a day Spondylosis; intervertebral disc disorders; other back problems (20 sources) Displacement of lumbar intervertebral disc without myelopathy; Translations: [Degeneration of lumbar intervertebral disc] 09-01-2017 Chronic Unclassified (20 sources) Encounter for screening for other disorder; Translations: [Screening status] Onset: 8 08-15-2020 Episodic Comment on above: scope 2014-- does psa/exam thru [facility] scope 2014--cologard 2019 does psa/exam thru [facility] lab order given for fall 2021 Unclassified (2 sources) Unknown / UNK(Unknown) Onset: 6 Unclassified (20 sources) Unclassified (20 sources) LOW BACK PAIN WITH RADICULOPATHY (724.4) Unclassified (20 sources) ANEURYSM, NOS (442.9) Unclassified (20 sources) MYOCARDIAL INFARCTION, NOS (410.90) Unclassified (20 sources) Pelvis/Thigh/Hip Pain (719.45) Unclassified (20 sources) Non-smoker; Translations: [Non-smoker] 05-26-2018 Unclassified (20 sources) Carotid Bruits (785.9) Unclassified (20 sources) Family history of abdominal aortic aneurysm (V17.49) Unclassified (20 sources) SCREENING FOR CANCER OF THE PROSTATE (V76.44) Unclassified (20 sources) SLEEP DISORDER, NOS (307.40) 09-01-2017 Unclassified (20 sources) BMI 30.0-30.9,adult Unclassified (20 sources) Lumbar stenosis with neurogenic claudication Unclassified (20 sources) Hip pain, left Unclassified (20 sources) Screening for prostate cancer Unclassified (20 sources) Family history of brain aneurysm Unclassified (20 sources) Hypertension with heart disease Unclassified (20 sources) History of tobacco abuse Unclassified (20 sources) Degenerative lumbar spinal stenosis Unclassified (20 sources) Heart disease, hypertensive, malignant, without heart failure Unclassified (20 sources) Bilateral hip pain Unclassified (20 sources) PVD (peripheral vascular disease) Unclassified (17 sources) BMI 29.0-29.9,adult Unclassified (6 sources) Other intervertebral disc degeneration, lumbar region Unclassified (10 sources) Bilateral carotid bruits Unclassified (19 sources) Body mass index 25-29 - overweight; Translations: [Body mass index (BMI) of 25.0 to 29.9] 04-19-2019 Unclassified (3 sources) Exposure to COVID-19 virus Unclassified (1 source) Acute cough; Translations: [Acute cough] Onset: 4 Unclassified (1 source) Other intervertebral disc degeneration, lumbar region without mention of lumbar back pain or lower extremity pain; Translations: [Other intervertebral disc degeneration, lumbar region without mention of lumbar back pain or lower extremity pain] Onset: 5 Unclassified (1 source) Low back pain, unspecified; Translations: [Low back pain, unspecified] Onset: 4 Urinary tract infections (2 sources) Urinary tract infectious disease; Translations: [Urinary tract infection, site not specified] Onset: 2 Episodic Past or Other Problems Problem Classification Problem Date Documented Date Episodic/Chronic Cardiac dysrhythmias (20 sources) Palpitations; Translations: [Palpitations] Onset: 09-03-2024 Episodic Coronary atherosclerosis and other heart disease (20 sources) History of myocardial infarction; Translations: [Coronary angioplasty status] Onset: 09-13-2003 09-01-2017 Episodic Comment on above: 2002-- then stent pl acmeent 200309/21/2003 PTCA and D ES to ostium of first dx, Dr. Carbajal, [facility] Hemorrhoids (4 sources) Internal hemorrhoids; Translations: [Other hemorrhoids] Onset: 04-12-2006 12-23-2023 Episodic Other aftercare (7 sources) Other terminologist (current) drug therapy; Translations: [Long-term (current) use of other medications] Onset: 12-24-2014 12-24-2014 Episodic Other aftercare (14 sources) Long-term drug therapy; Translations: [Long-term (current) use of other medications] Onset: 05-13-2011 Resolved: 12-24-2014 12-24-2014 Episodic Other aftercare (1 source) Encounter for therapeutic drug level monitoring; Translations: [Encounter for therapeutic drug level monitoring] Onset: 05-30-2024 Episodic Other and unspecified benign neoplasm (4 sources) Benign tumor of digestive organ; Translations: [Benign neoplasm of other and unspecified site of the digestive system] Onset: 04-12-2006 12-23-2023 Episodic Other connective tissue disease (1 source) Arthrodesis status; Translations: [Arthrodesis status] Onset: 07-27-2024 Episodic Other nutritional; endocrine; and metabolic disorders (7 sources) Body mass index (BMI) 25.0-25.9, adult; Translations: [Body Mass Index 25.0-25.9, adult] Onset: 05-04-2013 05-04-2013 Episodic Pneumonia (except that caused by tuberculosis or sexually transmitted disease) (20 sources) Pneumonia (except that caused by tuberculosis or sexually transmitted disease) Residual codes; unclassified (20 sources) History of cardiac catheterization; Translations: [Other specified postprocedural states] Onset: 03-14-2022 04-06-2022 Episodic Comment on above: LEFT HEART ASSESSMEN T: Left Ventricular Ejection Fraction: Not assessed; LEFT MAIN: short: bifurcating vessel, Mild calcification;LEFT ANTERIOR DESCENDING ARTERY: MID LAD: Mild calcification, Mild luminal irregularities, at the bifurcation of the SP and DX1: eccentric: 10 - 25 % StenosisDIAGONAL 1: Proximal - Previously placed stent is patent; CIRCUMFLEX ARTERY: Mild luminal irregularities, PROX CIRC: Mild calcification; RIGHT CORONARY ARTERY: Angiographically normal per cardiac cath 04/02/22;10/09/[address] Isbell, [facility]; 09/21/2003 PTCA and BENEDICT to ostium of first dx, Dr. Carbajal, [facility] Residual codes; unclassified (20 sources) Requires vaccination; Translations: [Need for pneumococcal vaccination] 12-21-2019 Comment on above: and tetanus Skin and subcutaneous tissue infections (4 sources) Abscess; Translations: [Cellulitis, unspecified] Onset: 04-14-2010 04-14-2010 Episodic Spondylosis; intervertebral disc disorders; other back problems (20 sources) Spinal stenosis of lumbar region; Translations: [Backache] Onset: 07-27-2024 05-26-2018 Episodic Comment on above: s/p discetomy and fu rosalia by Dr Vera-- plates and screwsclinically i feel he has failed back surgery -- refer to renea which dr Vera already did(08/29)-- complicated by claudication from common iliacs --- so not sure all- failed back surgery?-- candidate for block?-- and would that block pain from all-types of pain not just nerve and MS etiology from back but also vasucular Spondylosis; intervertebral disc disorders; other back problems (1 source) Spinal stenosis, lumbar region without neurogenic claudication; Translations: [Degenerative lumbar spinal stenosis] 09-01-2017 Unclassified (20 sources) BMI 25.0-25.9,adult Unclassified (20 sources) Patient encounter status; Translations: [Annual Medicare Physical WITH abnormal findings (Renamed from Encounter for general adult medical examination with abnormal findings)] 03-25-2017 Comment on above: requested by Dr Rocio reyes Unclassified (20 sources) Foliculitis (704.8) Unclassified (20 sources) PROSTATITIS NOS (601.9) Unclassified (20 sources) Screening status; Translations: [Encounter for screening for malignant neoplasm of colon (Renamed from Special screening for malignant neoplasms, colon)] 09-01-2017 Comment on above: scope 2014-- no colo zachery this yr with upcoming back surgery -- will do stool cards scope 2014-- does psa/exam thru [facility] Unclassified (20 sources) Heliobactor Pylori + 05-26-2018 Unclassified (20 sources) Unspecified Diagnosis 09-01-2017 Unclassified (20 sources) Immunization Hx: DTAP 10/22/08 (Renamed from DTAP 10/22/08) 09-01-2017 Unclassified (20 sources) Preprocedural examination done; Translations: [Pre-operative exam (Renamed from Encounter for pre-operative examination)] 09-01-2017 Comment on above: requested by Dr Rocio reyes Unclassified (20 sources) Annual Medicare Physical (V70.0) Unclassified (20 sources) Lesion-Unknown behavior (238.2) Unclassified (20 sources) VASCULAR DISEASE, NOS (459.9) Unclassified (20 sources) 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.52) Unclassified (20 sources) BMI 26.0-26.9,adult Unclassified (20 sources) Sacroiliac pain Unclassified (20 sources) Pain of left lower extremity Unclassified (20 sources) Low back pain potentially associated with radiculopathy Unclassified (20 sources) back sx 05-26-2018 Comment on above: 07/23 Unclassified (20 sources) Encounter for Medicare annual wellness exam Unclassified (20 sources) Sebaceous cyst of skin; Translations: [Sebaceous cyst] 05-26-2018 Comment on above: neck -- bothers him will resect Unclassified (18 sources) Visit for suture removal Unclassified (20 sources) Diabetic education completed; Translations: [Diabetic nutritional counseling completed] 08-15-2020 Unclassified (10 sources) Need for pneumococcal vaccination Unclassified (7 sources) Screening for thyroid disorder Unclassified (9 sources) BMI 28.0-28.9,adult Unclassified (7 sources) Encounter for hepatitis C virus screening test for high risk patient Results Test Name Value Interpretation Reference Range Facility Internal Medicine Office Vis iton 11-12-2025 Internal Medicine Office Visit [facility] Internal Medicine [address] [place] [address] OFFICE VISIT Date of Service: 04/26/25 MR#: [id number] Acct: [id number] Name: MERRICK HODGES Rep #: [id number] : 1945 Provider: Dr. Shell cornejo MD Age/Sex: 79/M Location[place] [facility] Status: Signed with Addenda ADDENDUM by QUYNH Kay on 04/26/25 at 1319 Office Procedure Documentation entered by Liliana Kay MA 04/26/25 13:19: Immunizations Fluad 65yr up(PF)45 mcg(15 mcgx3)/0.5 mL intramuscular syringe Performing Provider: Shell Siddiqui MD Performing Location: [facility] Administered by: Liliana Kay MA on 04/26/25 13:19 Dose Route Admin Location Dispensed Lot Number Expiration Date Package NDC NDC Safety Person 45 mcg IM Right Deltoid 0.5 mL [id number] 10/09/25 00606-152-37 [id number] S [employer] VIS Given Date VIS Provided VIS Publication Date 04/26/25 Single Vaccine 24 Eligibility Eligibility Date Funding Source Not Applicable Date cc: * Signed Intake Vital Signs 10/06/24 09:23 01/24/25 12:58 04/15/25 11:20 04/26/25 09:08 04/26/25 12:44 Height 5 ft 10 in 5 ft 10 in 5 ft 10 in BP 152/94 H 132/86 H Blood Pressure Location Lt brachial Position Sitting Respiration 14 Pulse 62 Pulse Source Monitor Temp 99 F Temp Source Temporal Pulse Oximetry (%) 98 Oxygen Delivery Method room air Intake Visit Reasons: surg clearance/yearly Clinical Supervisor Required: No Is patient in pain?: Yes (low back) Pain scale (1-10): 5 Allergies atorvastatin (From Lipitor) Adverse Reaction (Intermediate, Verified 04/15/25 11:21) Myalgias Medications ???Medication ???Instructions ???Recorded ???Confirmed ???Type amlodipine 5 mg tablet 5 mg PO BID 04/16/17 04/26/25 Hist ory fosinopril 20 mg tablet 20 mg PO DAILY 04/16/17 04/26/25 H istory multivitamin 1 tab PO DAILY 04/16/17 04/26/25 H istory aspirin 81 mg tablet,delayed 81 mg PO QDAY 01/06/18 04/26/25 Hi story release (Adult Aspirin Regimen) rosuvastatin 10 mg tablet 10 mg PO DAILY 10/17/21 04/26/25 H istory metoprolol tartrate 50 mg tablet 50 mg PO BID #60 tabs 04/27/22 Rx fiber 1 tab PO DAILY 09/29/24 04/26/25 H istory clopidogrel 75 mg tablet See Rx Instructions .Route 02/05/ 5 04/26/25 Rx .COMPLEX #90 tabs pantoprazole 20 mg tablet,delayed 20 mg PO QDAY #30 tabs 04/06/25 1 06/26/24 Rx release (Protonix) Have you fallen in the past year?: No Nurse's Note: Pt is here for surgical clearance for Dr. Mccarthy to do a lumbar fusion 360 of l4-5and revise posterior fusion on 05/14/25. Pt has had cardiology clearance. Pt forgot to take meds this morning [facility] Medical History Restless legs Back pain History of hiatal hernia Gastric reflux History of edema History of heart attack History of Holter monitoring Wears hearing aid Wears glasses Wears dentures Arthritis High cholesterol Dietary restriction Diverticulosis Former smoker History of pain when walking History of echocardiogram History of stress test Cardiology follow-up encounter History of irregular heartbeat NSVT (nonsustained ventricular tachycardia) Type 2 diabetes mellitus Essential hypertension Peripheral arterial disease History of non-ST elevation myocardial infarction (NSTEMI) 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 Lumbar stenosis Chronic back pain Overweight (BMI 25.0-29.9) Hyperlipidemia Hypertension Surgical History History of cardiac catheterization History of esophagogastroduodenoscop y (EGD) H/O bilateral cataract extraction History of back surgery S/P femoral-femoral bypass surgery Stented coronary artery ( 09/21/03) History of left heart catheterization ( 04/02/22) Family History Father , of cancer Myocardial infarction, Onset Age: 70 Cancer kidney Mother , age 66 Bleeding in brain due to brain aneurysm Brother Myocardial infarction, Onset Age: 62 CAD (coronary artery disease) Social History household members: spouse current occupational status: employed current occupation: [employer] Smoking Status: Former smoker quit date: 06/14/01 pack-years: 20 Electronic Cigarette Use: not used how long ago did patient quit smokin alcohol intake: never substance use type: does not use do you feel safe at home: Yes Q (more content not included)... Normal [facility] Urgent Care Visit Reporton 1 06-15-2024 Urgent Care Visit Report [facility] [address], [address] [place] [address] OFFICE VISIT Date of Service: 04/15/25 MR#: [id number] Acct: [id number] Name: MERRICK HODGES Rep #: [id number] : 1945 Provider: JESSICA perez Age/Sex: 79/M Location[place] [facility] Status: Signed Intake Vital Signs 04/06/25 07:47 04/15/25 11:20 Height 5 ft 10 in 5 ft 10 in Weight: 168 lb 166 lb 8 oz BMI 24.0 23.8 BP 128/78 H 130/66 H Blood Pressure Location Lt brachial Rt brachial Position Sitting Sitting Respiration 18 16 Pulse 54 L 88 Pulse Source Monitor NIBP Temp 98.2 F Temp Source Oral Pulse Oximetry (%) 99 97 Oxygen Delivery Method room air Intake Visit Reasons: Cough Chief Complaint: cough, RN, chest congestion Clinical Supervisor Required: No Is patient in pain?: No Allergies atorvastatin (From Lipitor) Adverse Reaction (Intermediate, Verified 04/15/25 11:21) Myalgias Medications ???Medication ???Instructions ???Recorded ???Confirmed ???Type amlodipine 5 mg tablet 5 mg PO BID 04/16/17 04/15/25 Hist ory fosinopril 20 mg tablet 20 mg PO DAILY 04/16/17 04/15/25 H istory multivitamin 1 tab PO DAILY 04/16/17 04/15/25 H istory aspirin 81 mg tablet,delayed 81 mg PO QDAY 01/06/18 04/15/25 Hi story release (Adult Aspirin Regimen) rosuvastatin 10 mg tablet 10 mg PO DAILY 10/17/21 04/15/25 H istory metoprolol tartrate 50 mg tablet 50 mg PO BID #60 tabs 04/27/2208/08 Rx fiber 1 tab PO DAILY 09/29/24 04/15/25 H istory clopidogrel 75 mg tablet See Rx Instructions .Route 5 04/15/25 Rx .COMPLEX #90 tabs pantoprazole 20 mg tablet,delayed 20 mg PO QDAY #30 tabs 04/06/25 1 Rx release (Protonix) benzonatate 200 mg capsule 200 mg PO TID PRN cough #20 caps 1 06/15/24 04/15/25 Rx doxycycline hyclate 100 mg capsule 100 mg PO BID 7 days #14 caps 04/15/25 Rx Have you fallen in the past year?: No Nurse's Note: cough, RN, chest congestion x 8-9 days. denies fever, BUSTAMANTE, BA, lung dz PFSH Medical History Restless legs Back pain History of hiatal hernia Gastric reflux History of edema History of heart attack History of Holter monitoring Wears hearing aid Wears glasses Wears dentures Arthritis High cholesterol Dietary restriction Diverticulosis Former smoker History of pain when walking History of echocardiogram History of stress test Cardiology follow-up encounter History of irregular heartbeat NSVT (nonsustained ventricular tachycardia) Type 2 diabetes mellitus Essential hypertension Peripheral arterial disease History of non-ST elevation myocardial infarction (NSTEMI) 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 Lumbar stenosis Chronic back pain Overweight (BMI 25.0-29.9) Hyperlipidemia Hypertension Surgical History (Reviewed 04/06/25 @ 10:04 by Franchesca Moreira FILM PROJECTOR OPERATOR, FILM PROJECTOR OPERATOR-C) History of cardiac catheterization History of esophagogastroduodenoscop y (EGD) H/O bilateral cataract extraction History of back surgery S/P femoral-femoral bypass surgery Stented coronary artery ( 09/21/03) History of left heart catheterization ( 04/02/22) Family History Father , of cancer Myocardial infarction, Onset Age: 70 Cancer kidney Mother , age 66 Bleeding in brain due to brain aneurysm Brother Myocardial infarction, Onset Age: 62 CAD (coronary artery disease) Social History household members: spouse current occupational status: employed current occupation: [employer] Smoking Status: Former smoker quit date: 06/14/01 pack-years: 20 Electronic Cigarette Use: not used how long ago did patient quit smokin alcohol intake: never substance use type: does not use do you feel safe at home: Yes HPI HPI Chief Complaint: cough, RN, chest congestion Details: MERRICK HODGES, is a 79 M who presents to the office today for concerns regarding cough, nasal drainage, and chest congestion for 8-9 days. He denies fever, headache, body ache or underlying pulmonary health issues. ROS Const Constitutional: No body ache, chills, fatigue, fever(s), headache(s) or change in appetite Eyes Eyes: No blurry vision, change in vision, double vision, irritation, discharge, vision loss, dry eyes, bulging eyes, floaters, visual disturbances, eye pain, Light sensitivity, spots in vision, tunnel vision or other ENT ENT: Positive for nasal congestion and nasal discharge; No ear or mastoid pain, ear discharge, ear pressure, tinnitus, dizziness/vertigo, nosebleed/epistaxis, nose p (more content not included)... Normal [facility] Cardiology Visit Reporton Cardiology Visit Report [facility] [address] [place] [address] OFFICE VISIT Date of Service: 04/06/25 MR#: [id number] Acct: [id number] Name: MERRICK HODGES Rep #: [id number] : 1945 Provider: JESSICA ruiz Age/Sex: 79/M Location: [facility] Status: Signed HPI HPI History of Present Illness Details: This is a 79 year old male who presents to the office today for a cardiovascular follow-up visit. Patient has a known history of coronary disease status post stenting which was done by Dr. Lizarraga at [facility] in 2003 to his diagonal branch. He was cathed in 2021 and the stent was widely patent. That presentation was an anginal equivalent with bilateral arm discomfort from his elbow down to his hands. Patient also has a history of peripheral vascular disease, status post femorofemoral bypass by Dr. Chávez who also follows his carotids. He is diabetic hypertensive and hyperlipidemic. His most recent Holter monitor showed 25% PVCs, there was no atrial fibrillation. He did not report any symptoms. From a cardiac standpoint, the patient is doing well. He denies any palpitations, chest pain, pressure or heaviness. He denies SOB, Orthopnea, and PND. He does not have bleeding issues; no blood in urine, stool, or nosebleeds. He denies any decrease in energy level, myalgias, or claudication. He does not have edema, or sudden weight gain. He denies lightheadedness, dizziness, syncopal or near syncopal episodes, and headaches. Intake Vital Signs 10/06/24 09:23 01/24/25 12:58 04/06/25 07:47 Height 5 ft 10 in 5 ft 10 in 5 ft 10 in Weight: 168 lb BMI 24.0 BP 128/78 H Blood Pressure Location Lt brachial Position Sitting Respiration 18 Pulse 54 L Pulse Source Monitor Pulse Oximetry (%) 99 Intake Visit Reasons: 6 M FU Clinical Supervisor Required: No Is patient in pain?: No Allergies atorvastatin (From Lipitor) Adverse Reaction (Intermediate, Verified 04/06/25 09:50) Myalgias Medications ???Medication ???Instructions ???Recorded ???Confirmed ???Type amlodipine 5 mg tablet 5 mg PO BID 04/16/17 04/06/25 Hist ory fosinopril 20 mg tablet 20 mg PO DAILY 04/16/17 04/06/25 H istory multivitamin 1 tab PO DAILY 04/16/17 04/06/25 H istory aspirin 81 mg tablet,delayed 81 mg PO QDAY 01/06/18 04/06/25 Hi story release (Adult Aspirin Regimen) rosuvastatin 10 mg tablet 10 mg PO DAILY 10/17/21 04/06/25 H istory metoprolol tartrate 50 mg tablet 50 mg PO BID #60 tabs 04/27/22 Rx fiber 1 tab PO DAILY 09/29/24 04/06/25 H istory clopidogrel 75 mg tablet See Rx Instructions .Route 5 04/06/25 Rx .COMPLEX #90 tabs pantoprazole 20 mg tablet,delayed 20 mg PO QDAY #30 tabs 04/06/25 1 Rx release (Protonix) Ejection fraction %: 65 Have you fallen in the past year?: No PFSH Medical History Restless legs Back pain History of hiatal hernia Gastric reflux History of edema History of heart attack History of Holter monitoring Wears hearing aid Wears glasses Wears dentures Arthritis High cholesterol Dietary restriction Diverticulosis Former smoker History of pain when walking History of echocardiogram History of stress test Cardiology follow-up encounter History of irregular heartbeat NSVT (nonsustained ventricular tachycardia) Type 2 diabetes mellitus Essential hypertension Peripheral arterial disease History of non-ST elevation myocardial infarction (NSTEMI) 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 Lumbar stenosis Chronic back pain Overweight (BMI 25.0-29.9) Hyperlipidemia Hypertension Surgical History History of cardiac catheterization History of esophagogastroduodenoscop y (EGD) H/O bilateral cataract extraction History of back surgery S/P femoral-femoral bypass surgery Stented coronary artery ( 09/21/03) History of left heart catheterization ( 04/02/22) Family History Father , of cancer Myocardial infarction, Onset Age: 70 Cancer kidney Mother , age 66 Bleeding in brain due to brain aneurysm Brother Myocardial infarction, Onset Age: 62 CAD (coronary artery disease) Social History household members: spouse current occupational status: employed current occupation: [employer] Smoking Status: Former smoker quit date: 06/14/01 pack-years: 20 Electronic Cigarette Use: not used how long ago did patient quit smokin alcohol intake: never substance use type: does not use do you feel safe (more content not included)... Normal [facility] L/S Spine Min 4 Viewson 01-12 L/S Spine Min 4 Views [facility] Imaging Services [address] [place], [place] [id number] L/S Spine Min 4 Views MR#: [id number] Acct: [id number] Name: MERRICK HODGES Rep #: [id number] : 1945 M 79 From: Jeremias Arnold MD PCP: Dr. Shell Siddiqui MD Status: DEP AMB Study: L/S Spine Min 4 Views Date of Exam: 01/24/25 Exam# [id number] Ordering Dr: Connie Arce PROCEDURE: L/S SPINE MIN 4 VIEWS 01/24/2025 REASON FOR EXAM: BACK PAIN, CHRONIC TECHNIQUE: L/S SPINE MIN 4 VIEWS COMPARISON: CT lumbar spine 07/11/2024. FINDINGS: Vertebrae: Chronic degenerative changes of lumbar spine. Fusion hardware/pedicle screws are seen at L5-S1 level. Hardware demonstrate gross anatomic alignment. Discs: Mild retrolisthesis of L1- L2. Alignment: Levoscoliosis of visualized mid and lower lumbar spine. Other: Atherosclerotic calcification of visualized vessels. Tubing/leads are visualized extending from lower lumbar spine to mid thoracic spine. [id number] stool burden. RAD/L/S Spine Min 4 Views IMPRESSION: 1. Chronic degenerative changes of visualized lower lumbar spine with fixation hardware at L5-S1 which demonstrate gross anatomic alignment. No definite evidence of any acute pathology. 2. Follow-up cross-sectional imaging can be obtained for better characterization. Reading Location: [id number] CC: SHERLY Bertrand; Dr. Shell Siddiqui MD Hook Puller: Signed Normal [facility] Orthopedic Visit Reporton Orthopedic Visit Report [facility] [address] [place] [address] OFFICE VISIT Date of Service: 01/24/25 MR#: [id number] Acct: [id number] Name: MERRICK HODGES Rep #: [id number] : 1945 Provider: SHERLY Bertrand Age/Sex: 79/M Location[place] [facility] Status: Signed Intake Vital Signs 10/06/24 09:23 01/24/25 12:58 Height 5 ft 10 in 5 ft 10 in Weight: 160 lb BMI 22.9 Intake Visit Reasons: LUMBAR SPINE Chief Complaint: lumbar spine pain Accompanied by: Is patient in pain?: Yes Pain scale (1-10): 5 Allergies atorvastatin (From Lipitor) Adverse Reaction (Intermediate, Verified 01/24/25 13:06) Myalgias Medications ???Medication ???Instructions ???Recorded ???Confirmed ???Type amlodipine 5 mg tablet 5 mg PO BID 04/16/17 01/24/25 Hist ory fosinopril 20 mg tablet 20 mg PO DAILY 04/16/17 01/24/25 H istory multivitamin 1 tab PO DAILY 04/16/17 01/24/25 H istory aspirin 81 mg tablet,delayed 81 mg PO QDAY 01/06/18 01/24/25 Hi story release (Adult Aspirin Regimen) rosuvastatin 10 mg tablet 10 mg PO DAILY 10/17/21 01/24/25 H istory metoprolol tartrate 50 mg tablet 50 mg PO BID #60 tabs 04/27/22 Rx clopidogrel 75 mg tablet See Rx Instructions .Route 4 01/24/25 Rx .COMPLEX #90 tabs fiber 1 tab PO DAILY 09/29/24 01/24/25 H istory omeprazole 20 mg tablet,delayed 20 mg PO DAILY 09/29/24 01/24/25 H istory release Have you fallen in the past year?: No PFSH Medical History Restless legs Back pain History of hiatal hernia Gastric reflux History of edema History of heart attack History of Holter monitoring Wears hearing aid Wears glasses Wears dentures Arthritis High cholesterol Dietary restriction Diverticulosis Former smoker History of pain when walking History of echocardiogram History of stress test Cardiology follow-up encounter History of irregular heartbeat NSVT (nonsustained ventricular tachycardia) Type 2 diabetes mellitus Essential hypertension Peripheral arterial disease History of non-ST elevation myocardial infarction (NSTEMI) 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 Lumbar stenosis Chronic back pain Overweight (BMI 25.0-29.9) Hyperlipidemia Hypertension Surgical History History of cardiac catheterization History of esophagogastroduodenoscop y (EGD) H/O bilateral cataract extraction History of back surgery S/P femoral-femoral bypass surgery Stented coronary artery ( 09/21/03) History of left heart catheterization ( 04/02/22) Family History Father , of cancer Myocardial infarction, Onset Age: 70 Cancer kidney Mother , age 66 Bleeding in brain due to brain aneurysm Brother Myocardial infarction, Onset Age: 62 CAD (coronary artery disease) Social History household members: spouse current occupational status: employed current occupation: [employer] Smoking Status: Former smoker quit date: 06/14/01 pack-years: 20 Electronic Cigarette Use: not used how long ago did patient quit smokin alcohol intake: never substance use type: does not use do you feel safe at home: Yes HPI LUMBAR SPINE Details: This documentation accurately reflects the service provided and the decisions made by me, SHERLY Bertrand 01/24/25 9190. Part of today???s visit was documented by Noble Begum MA, acting as scribe. MERRICK HODGES is a 79 year old M here today for lumbar spine. Patient states that his pain is a 5 today in the lower back. To recall the patient has a prior L5-S1 fusion done by Dr. Marcos at the [facility] around 2018. He states that the pain goes across the lower back, and the pain has been shooting up his spine. He denies any pain that goes into his legs.. The patient says that his pain has been worsening. The pain is a constant ache. When he starts to move around the pain gets worse. Walking increasing the pain to at least a 10. Says that he can only walk for about a quarter of a mile before he has to sit down due to the worsening pain. Leaning on a cart does help relieve his symptoms. Sitting also relieves his symptoms. He has worsening pain with standing or walking. Patient went to Dr. Real for injections in his lower back. He states that the injections lasted for a couple days. His last appointment with Dr. Garvin was back in September. Says that he had 2 days of relief at most from the injection before his pain came back. He states that he isn't (more content not included)... Normal [facility] Cardiovascular stress test r eportOrdered By: Michael Matta on 10-30-2024 Study report [facility] Cardiovascular Services [address] [place] [address] MR#: [id number] Acct: [id number] Name: MERRICK HODGES Rep #: [id number] : 1945 78 From: Michael Matta MD Primary Care: Dr. Shell Siddiqui MD Stat us: REG CLI Referring Dr: Alexandr Lizarraga MD Sex: M C Stress Test Report Pharmacologic myocardial perfusion stress test. 78-year-old male with a history of coronary artery disease and frequent premature ventricular complexes Resting EKG demonstrates sinus rhythm with a rate of 63 bpm. Resting blood pressure is 158/80 mmHg. 0.4 mg of regadenoson was infused per usual protocol followed by rapid intravenous saline flush injection. Continuous EKG monitoringwas performed. The maximum heart rate was 87 bpm which was 60% of max impacted heart rate the maximum workload was 1 metabolic equivalent. At rest there were no ST or T wave changes noted to suggest ischemia and at peak infusion nonspecific ST changes were noted which did not meet the criteria for ischemia. No clinical angina is noted. The final blood pressure was 152/70 mmHg. Myocardial perfusion protocol. 11 mCi of technetium 99m sestamibi was injected at rest. 0.4 mg of regadenoson was infused per usual protocol. At peak infusion 33.1 mCi of technetium 99m sestamibi was injected stress images were obtained stress and rest images were reconstructed and compared in the short axis vertical long and horizontal long axis. Gated images were also obtained. Perfusion SPECT analysis: Review of the stress images demonstrate normal uptake of tracer noted in all areas of the myocardium. The resting images similar demonstrated normal uptake of tracer noted in all areas of the myocardium. No areas of reversibility are noted to suggest ischemia and no previous infarct is noted. Gated SPECT analysis: The gated ejection fraction is 63%. Conclusion: Normal pharmacologic myocardial perfusion stress test. normal ejection fraction. 10/30/24 1502 Date _ Michael Matta MD CC: Dr. Shell Siddiqui MD; Dr. Alexandr Lizarraga MD ~ Date Dictated: 10/30/24 1500 Date Transcribed: 10/30/24 1500 Hook Puller: CO Signed [facility] Work Phone: Echo Completeon 10-30-2024 Echo Complete [facility] Cardiovascular Services [address] [place] [address] Echo Complete 10/30/24 1003 MR#: [id number] Acct: [id number] Name: HODGESMERRICK VERONA Rep #: [id number] : 1945 78 From: Michael Matta MD Attending Dr: Dr. Alexandr Lizarraga MD Status: BARBARA Dexter [facility] Ordering Dr: Alexandr Lizarraga MD Date: 10/30/24 Location: [facility] Sex: M C Admitted: Reason For Study Reason For Study: ARRHYTHMIA Procedure This was a 2D Doppler, Color Flow transthoracic echocardiogram. Exam performed in department. Left Ventricle Normal left ventricle. Left ventricular systolic function is normal. The left ventricular ejection fraction is 60 %. Stage 1 diastolic dysfunction. No regional wall motion abnormalities noted. Right Ventricle Normal RV size. Normal systolic function. Mitral Valve Normal mitral valve. Mild (1+) mitral valve insufficiency. Tricuspid Valve Normal tricuspid valve. Mild (1+) tricuspid valve insufficiency. Pulmonary artery systolic pressure is 34 mmHg. Aortic Valve Trisinus/trileaflet aortic valve. Pulmonic Valve Normal pulmonic valve. Great Vessels Normal aortic root. The pulmonary artery is normal size. Normal inferior vena cava. Pericardium/Pleural No pericardial effusion. MMode/2D Measurements Calculations LVIDd: 4.8 cm IVSd: 1.0 cm LVOT diam: 2.1 cm LVIDs: 3.2 cm LVPWd: 0.84 cm LVOT area: 3.4 cm2 RVDd: 3.8 cm FS: 34.2 % asc Aorta Diam: 3.4 cm LAV(MOD-bp): 53.3 ml LVAd ap4: 25.0 cm2 LAV(MOD-bp) Indexed: 28.1 ml/m2 LVLd ap4: 7.8 cm LAV(MOD-sp2): 57.9 ml EDV(MOD-sp4): 65.2 ml LAV(MOD-sp4): 44.0 ml EDV(sp4-el): 67.6 ml LVAs ap4: 13.5 cm2 LVLs ap4: 6.3 cm ESV(MOD-sp4): 26.1 ml ESV(sp4-el): 24.8 ml EF(MOD-sp4): 60.0 % EF(sp4-el): 63.3 % SV(MOD-sp4): 39.1 ml SV(MOD-sp2): 44.1 ml LVAd ap2: 26.7 cm2 LVLd ap2: 7.9 cm SI(MOD-sp4): 20.6 ml/m2 SI(MOD-sp2): 23.2 ml/m2 EDV(MOD-sp2): 75.0 ml EDV(sp2-el): 76.4 ml LVAs ap2: 15.5 cm2 LVLs ap2: 7.1 cm ESV(MOD-sp2): 30.9 ml ESV(sp2-el): 28.6 ml EF(MOD-sp2): 58.8 % SV(sp4-el): 42.8 ml Ao sinus diam: 3.[address] Junction: 2.8 cm LA A4 area: 16.5 cm2 LA dimension(2D): 4.1 cm RA A4 area: 13.7 cm2 TAPSE: 2.0 cm Time Measurements MV dec time: 0.25 sec Doppler Measurements Calculations MV E max jose francisco: 64.2 cm/sec Lat Peak E' Jose Francisco: 8.8 cm/sec Med Peak E' Jose Francisco: 6.0 cm/sec MV A max jose francisco: 108.4 cm/sec E/E' lat: 7.3 E/E' med: 10.8 MV E/A: 0.59 Ao V2 max: 92.6 cm/sec LV V1 max: 86.8 cm/sec MV dec slope: 259.2 cm/sec2 Ao max P.4 mmHg LV V1 max P.0 mmHg Ao V2 mean: 67.3 cm/sec LV V1 mean P.6 mmHg Ao mean P.0 mmHg LV V1 mean: 60.4 cm/sec Ao V2 VTI: 23.2 cm LV V1 VTI: 22.8 cm AV (velocity ratio): 0.98 PORSCHE(I,D): 3.4 cm2 PORSCHE(V,D): 3.2 cm2 SV(LVOT): 78.2 ml PA V2 max: 75.2 cm/sec TR max jose francisco: 270.5 cm/sec TR max P.3 mmHg ECHO/Echo Complete Interpretation Summary Normal left ventricle. Left ventricular systolic function is normal. The left ventricular ejection fraction is 60 %. Stage 1 diastolic dysfunction. Mild (1+) tricuspid valve insufficiency. ___ Ordering Physician: Alexandr Lizarraga Referring Physician: Alexandr Lizarraga MD Performed By: Guerda Stringer, NACHOCS 10/30/24 1553 Date Michael Matta MD CC: Dr. Shell Siddiqui MD; Dr. Alexandr Lizarrgaa MD Date Dictated: 10/30/24 1003 Date Transcribed: 10/30/241552 Hook Puller: Signed Normal [facility] Echocardiogram study reportO rdered By: Michael Matta on 10-30-2024 Study report [facility] Cardiovascular Services [address] [place] [address] Echo Complete 10/30/24 1003 MR#: [id number] Acct: [id number] Name: MERRICK HODGES Rep #:[id number] : 1945 78 From: Michael Dozier Attending Dr: Dr. Alexandr Lizarraga MD Status: REG CLI Ordering Dr: Alexandr Lizarraga MD Date: 10/30/24 Location: [facility] Sex: M C Admitted: Reason For Study Reason For Study: ARRHYTHMIA Procedure This was a 2D Doppler, Color Flow transthoracic echocardiogram. Exam performed in department. Left Ventricle Normal left ventricle. Left ventricular systolic function is normal. The left ventricular ejection fraction is 60 %. Stage 1 diastolic dysfunction. No regional wall motion abnormalities noted. Right Ventricle Normal RV size. Normal systolic function. Mitral Valve Normal mitral valve. Mild (1+) mitral valve insufficiency. Tricuspid Valve Normal tricuspid valve. Mild (1+) tricuspid valve insufficiency. Pulmonary artery systolic pressure is 34 mmHg. Aortic Valve Trisinus/trileaflet aortic valve. Pulmonic Valve Normal pulmonic valve. Great Vessels Normal aortic root. The pulmonary artery is normal size. Normal inferior vena cava. Pericardium/Pleural No pericardial effusion. MMode/2D Measurements & Calculations LVIDd: 4.8 cm IVSd: 1.0 cm LVOT diam: 2.1 cm LVIDs: 3.2 cm LVPWd: 0.84 cm LVOT area: 3.4 cm2 RVDd: 3.8 cm FS: 34.2 % asc Aorta Diam: 3.4 cm LAV(MOD-bp): 53.3 ml LVAd ap4: 25.0 cm2 LAV(MOD-bp) Indexed: 28.1 ml/m2 LVLd ap4: 7.8 cm LAV(MOD-sp2): 57.9 ml EDV(MOD-sp4): 65.2 ml LAV(MOD-sp4): 44.0 ml EDV(sp4-el): 67.6 ml LVAs ap4: 13.5 cm2 LVLs ap4: 6.3 cm ESV(MOD-sp4): 26.1 ml ESV(sp4-el): 24.8 ml EF(MOD-sp4): 60.0 % EF(sp4-el): 63.3 % SV(MOD-sp4): 39.1 ml SV(MOD-sp2): 44.1 ml LVAd ap2: 26.7 cm2 LVLd ap2: 7.9 cm SI(MOD-sp4): 20.6 ml/m2 SI(MOD-sp2): 23.2 ml/m2 EDV(MOD-sp2): 75.0 ml EDV(sp2-el): 76.4 ml LVAs ap2: 15.5 cm2 LVLs ap2: 7.1 cm ESV(MOD-sp2): 30.9 ml ESV(sp2-el): 28.6 ml EF(MOD-sp2): 58.8 % SV(sp4-el): 42.8 ml Ao sinus diam: 3.[address] Junction: 2.8 cm LA A4 area: 16.5 cm2 LA dimension(2D): 4.1 cm RA A4 area: 13.7 cm2 TAPSE: 2.0 cm Time Measurements MV dec time: 0.25 sec Doppler Measurements & Calculations MV E max jose francisco: 64.2 cm/sec Lat Peak E' Jose Francisco: 8.8 cm/sec Med Peak E' Jose Francisco: 6.0 cm/sec MV A max jose francisco: 108.4 cm/sec E/E' lat: 7.3 E/E' med: 10.8 MV E/A: 0.59 Ao V2 max: 92.6 cm/sec LV V1 max: 86.8 cm/sec MV dec slope: 259.2 cm/sec2 Ao max P.4 mmHg LV V1 max P.0 mmHg Ao V2 mean: 67.3 cm/sec LV V1 mean P.6 mmHg Ao mean P.0 mmHg LV V1 mean: 60.4 cm/sec Ao V2 VTI: 23.2 cm LV V1 VTI: 22.8 cm AV (velocity ratio): 0.98 PORSCHE(I,D): 3.4 cm2 PORSCHE(V,D): 3.2 cm2 SV(LVOT): 78.2 ml PA V2 max: 75.2 cm/sec TR max jose francisco: 270.5 cm/sec TR max P.3 mmHg ECHO/Echo Complete Interpretation Summary Normal left ventricle. Left ventricular systolic function is normal. The left ventricular ejection fraction is 60 %. Stage 1 diastolic dysfunction. Mild (1+) tricuspid valve insufficiency. ___ Ordering Physician: Alexandr Lizarraga Referring Physician: Alexandr Lizarraga MD Performed By: Guerda Stringer RDCS 10/30/24 1556 Date _ Michael Matta MD CC: Dr. Shell Siddiqui MD; Dr. Alexandr Lizarraga MD ~ Date Dictated: 10/30/24 1003 Date Transcribed: 10/30/241552 Hook Puller: Signed [facility] Work Phone: Stress Reporton 10-30-2024 Stress Report [facility] Cardiovascular Services [address] [place] [address] MR#: [id number] Acct: [id number] Name: RANDIMERRICK VERONA Rep #: [id number] : 1945 78 From: Michael Matta MD Primary Care: Dr. Shell Siddiqui MD Status: REG CLI Referring Dr: Alexandr Lizarraga MD Sex: M C Stress Test Report Pharmacologic myocardial perfusion stress test. 78-year-old male with a history of coronary artery disease and frequent premature ventricular complexes Resting EKG demonstrates sinus rhythm with a rate of 63 bpm. Resting blood pressure is 158/80 mmHg. 0.4 mg of regadenoson was infused per usual protocol followed by rapid intravenous saline flush injection. Continuous EKG monitoring was performed. The maximum heart rate was 87 bpm which was 60% of max impacted heart rate the maximum workload was 1 metabolic equivalent. At rest there were no ST or T wave changes noted to suggest ischemia and at peak infusion nonspecific ST changes were noted which did not meet the criteria for ischemia. No clinical angina is noted. The final blood pressure was 152/70 mmHg. Myocardial perfusion protocol. 11 mCi of technetium 99m sestamibi was injected at rest. 0.4 mg of regadenoson was infused per usual protocol. At peak infusion 33.1 mCi of technetium 99m sestamibi was injected stress images were obtained stress and rest images were reconstructed and compared in the short axis vertical long and horizontal long axis. Gated images were also obtained. Perfusion SPECT analysis: Review of the stress images demonstrate normal uptake of tracer noted in all areas of the myocardium. The resting images similar demonstrated normal uptake of tracer noted in all areas of the myocardium. No areas of reversibility are noted to suggest ischemia and no previous infarct is noted. Gated SPECT analysis: The gated ejection fraction is 63%. Conclusion: Normal pharmacologic myocardial perfusion stress test. normal ejection fraction. 10/30/24 1502 Date Michael Matta MD CC: Dr. Shell Siddiqui MD; Dr. Alexandr Lizarraga MD Date Dictated: 10/30/24 1500 Date Transcribed: 10/30/241499 Hook Puller: CO Signed Normal [facility] Cardiology Visit Reporton Cardiology Visit Report [facility] [place] [address] OFFICE VISIT Date of Service: 10/06/24 MR#: [id number] Acct: [id number] Name: MERRICK HODGES Rep #: [id number] : 1945 Provider: Dr. Alexandr myers MD Age/Sex: 78/M Location: [facility] Status: Signed HPI HPI History of Present Illness Details: Patient comes in today for 1 month follow-up visit is a 78-year-old white male. He was evaluated here about a month ago for palpitations. Holter monitor showed 25% PVCs there was no atrial fibrillation. He did not report any symptoms. The patient does report when he takes his pulse at the radial site he can feel the skipped beats but he does not feel palpitations at this time. Patient has a known history of coronary disease status post stenting which I did at [facility] In 2003 to his diagonal branch. He was cathed in 2021 and the stent was widely patent. That presentation was an anginal equivalent with bilateral arm discomfort from his elbow down to his hands. He does not have any recurrence of that type of symptom. However, he is having some upper chest discomfort that changes with respiration. He started noticing this after he had COVID. Patient also has a history of peripheral vascular disease status post femorofemoral bypass by Dr. Chávez who also follows his carotids. He is diabetic hypertensive and hyperlipidemic. Patient denies any PND or orthopnea he complains of some occasional right foot swelling but no peripheral edema. His activity levels are limited by his chronic back discomfort he actually had injection therapy yesterday. He is managed by pain management. He is not able to walk on the treadmill. Intake Vital Signs 08/17/24 10:15 10/02/24 08:31 10/06/24 09:23 Height 5 ft 10 in 5 ft 10 in 5 ft 10 in Weight: 163 lb BMI 23.3 BP 166/67 H Blood Pressure Location Lt brachial Position Sitting Respiration 18 Pulse 55 L Pulse Source Monitor Pulse Oximetry (%) 93 Oxygen Delivery Method room air Intake Visit Reasons: 1 M FU per Clinical Supervisor Required: No Accompanied by: Self Is patient in pain?: No Allergies atorvastatin (From Lipitor) Adverse Reaction (Intermediate, Verified 10/06/24 09:24) Myalgias Medications ???Medication ???Instructions ???Recorded ???Confirmed ???Type amlodipine 5 mg tablet 5 mg PO BID 04/16/17 10/06/24 Hist ory fosinopril 20 mg tablet 20 mg PO DAILY 04/16/17 10/06/24 H istory multivitamin 1 tab PO DAILY 04/16/17 10/06/24 H istory aspirin 81 mg tablet,delayed 81 mg PO QDAY 01/06/18 10/06/24 Hi story release (Adult Aspirin Regimen) rosuvastatin 10 mg tablet 10 mg PO DAILY 10/17/21 10/06/24 H istory metoprolol tartrate 50 mg tablet 50 mg PO BID #60 tabs 04/27/22 Rx clopidogrel 75 mg tablet See Rx Instructions .Route 4 10/06/24 Rx .COMPLEX #90 tabs fiber 1 tab PO DAILY 09/29/24 10/06/24 H istory omeprazole 20 mg tablet,delayed 20 mg PO DAILY 09/29/24 10/06/24 H istory release Have you fallen in the past year?: No PFSH Medical History Restless legs Back pain History of hiatal hernia Gastric reflux History of edema History of heart attack History of Holter monitoring Wears hearing aid Wears glasses Wears dentures Arthritis High cholesterol Dietary restriction Diverticulosis Former smoker History of pain when walking History of echocardiogram History of stress test Cardiology follow-up encounter History of irregular heartbeat NSVT (nonsustained ventricular tachycardia) Type 2 diabetes mellitus Essential hypertension Peripheral arterial disease History of non-ST elevation myocardial infarction (NSTEMI) 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 Lumbar stenosis Chronic back pain Overweight (BMI 25.0-29.9) Hyperlipidemia Hypertension Surgical History History of cardiac catheterization History of esophagogastroduodenoscop y (EGD) H/O bilateral cataract extraction History of back surgery S/P femoral-femoral bypass surgery Stented coronary artery ( 09/21/03) History of left heart catheterization ( 04/02/22) Family History Father , of cancer Myocardial infarction, Onset Age: 70 Cancer kidney Mother , age 66 Bleeding in brain due to brain aneurysm Brother Myocardial infarction, Onset Age: 62 CAD (coronary artery disease) Social History household members: spouse current occupational status: employed current occupation: [employer] (more content not included)... Normal [facility] Fluor Guidance for Spine Inj on 10-02-2024 Fluor Guidance for Spine Inj [facility] Imaging Services [address] [place], [place] [address] Fluor Guidance for Spine Inj MR#: [id number] Acct: [id number] Name: HODGESMERRICK VERONA Rep #: [id number] : 1945 M 78 From: Abel cazares MD PCP: Dr. Shell Siddiqui MD Status: [facility]P [facility] Study: Fluor Guidance for Spine Inj Date of Exam: Exam# [id number] Ordering Dr: Robby Garvin MD PROCEDURE: FLUOR GUIDANCE FOR SPINE INJ 10/02/2024 REASON FOR EXAM: BLOCK, CAUDAL TECHNIQUE: Intraoperative fluoroscopic services provided for caudal block. COMPARISON: None FINDINGS: 5.4 seconds of fluoroscopy. 2.69 mGy. 2 images were submitted. RAD/Fluor Guidance for Spine Inj IMPRESSION: Intraoperative imaging provided for caudal block. Reading Location: [place] [address] CC: Dr. Shell Siddiqui MD; Dr. Robby Garvin MD Hook Puller: Signed [facility] MR/POSTOP.ANE 10-02-2024 MR/POSTOP.[facility] Medical Records Department [address] [place] [address] Anesthesia Postop Eval I 10/02/24 0948 MR#: [id number] Acct: [id number] Name: HODGESMERRICK VERONA Rep #: [id number] : 1945 78 From: Dangelo Price CRNA PCP: Dr. Shell Siddiqui MD Status:REG SD Y Race: C Location: [place] [address] Anesthesia: Postop Eval I Current Vital Signs Temperature: 98.2 F Pulse Rate: 55 Blood Pressure: 114/67 Respiratory Rate: 18 Pulse Ox: 94 Oxygen Delivery Method: Room Air Assessment Airway patent: Yes Spontaneous unlabored respirations: Yes Mental status: Calm nausea: No Vomiting: No Anesthesia Complication: No Fluid Hydration Crystalloid volume administer (ml): 0 Total IV fluid infused: 0 Progress Note Anesthesia document: Postop Eval 1 completed: Yes 10/02/24 0950 Date Dangelo Price PACKAGER Cosigner Signature: Date CC: Signed [facility] MR/[id number] 10-02-2024 MR/POSTOPAN2 [facility] Medical Records Department [address] [facility] [place] [address] Anesthesia Postop Eval II 10/02/24 1000 MR#: [id number] Acct: [id number] Name: MERRICK HODGES Rep #: [id number] : 1945 78 From: Kin Box MD PCP: Dr. Shell Siddiqui MD Status:REG SDC Y Race: C Location: [place] [address]- Anesthesia Postop Eval I Sum Postop Eval Completion status Anesthesia document: Postop Eval 1 completed: Yes Anesthesia Postop Eval I Summary Anesthesia Postop Eval I Summary: Anesthesia Postop Eval I: Assessment Summary Airway patent Yes 10/02/24 09:50 [email or web address] Spontaneous unlabored Yes 10/02/24 09:50 [email or web address] respirations Mental status Calm 10/02/24 09:50 [email or web address] nausea No 10/02/24 09:50 [email or web address] Vomiting No 10/02/24 09:50 [email or web address] Anesthesia Postop Eval I: Fluid Summary Crystalloid volume administer 0 10/02/24 09:50 [email or web address] (ml) Colloids volume administered ( ml) Blood Product volume administered (ml) Total IV fluid infused 0 10/02/24 09:50 [email or web address] Anesthesia Postop Eval I: Summary Notes Anesthesia Complication No 10/02/24 09:50 [email or web address] Anesthesia Complication Comment: Post-operative progress note Anesthesia: Postop Eval II Evaluation Mental status: Awake Pain Level: 2 nausea: No Vomiting: No 10/02/24 1000 Date Kin Box MD Cosigner Signature: Date CC: Signed Normal [facility] Operative Reporton Operative Report [facility] Medical Records Department [address] [place] [address] Operative Report 10/02/24 0953 MR#: [id number] Acct: [id number] Name: MERRICK HODGES Rep #: [id number] : 1945 78 From: Robby Garvin MD PCP: Dr. Shell Siddiqui MD Status:[facility] Location: [place] [address] Operative Report (Standard) Operative Information Date of Procedure: 10/02/24 Pre-Operative Diagnosis: Lumbosacral radiculopathy, lumbosacral degenerative disc disease, lumbosacral spinal stenosis, postlaminectomy syndrome of the lumbar spine Post-Operative Diagnosis: Lumbosacral radiculopathy, lumbosacral degenerative disc disease, lumbosacral spinal stenosis, postlaminectomy syndrome of the lumbar spine Surgery/Procedure Performed: Diagnostic/therapeutic caudal epidural steroid injection under fluoroscopic guidance agricultural commodities inspector: No Type of Anesthesia: Local MAC RN Documented Start/Stop Times: Operation Date: 10/02/24 10:00 Case Time Into Pre-Op 10/02/24 08:28 Out of Pre-Op 10/02/24 09:24 Anesthesia Start 10/02/24 09:34 Into Room 10/02/24 09:34 Procedure Start 10/02/24 09:41 Procedure End 10/02/24 09:43 Anesthesia End 10/02/24 09:45 Out of Room 10/02/24 09:45 Into Recovery 10/02/24 09:47 Procedure Start Time: 09:54 Procedure Stop Time: 09:54 Select all DRAINS/GRAFTS/IMPLANTS that apply: None Estimated Blood Loss: 1 Specimen collected: No Description of surgery: ANESTHESIA: MAC. BLOOD LOSS: Minimal. COMPLICATIONS: None. DESCRIPTION OF PROCEDURE: History and physical of today was reviewed. Risks and benefits of the procedure were explained. The patient understood and agreed to proceed. Informed consent was obtained. IV inserted per routine protocol. The patient was taken to the operating room and placed in the prone position with a pillow positioned underneath the abdomen. The lower back and tailbone area was prepped and draped in a sterile fashion using iodine x3. Under fluoroscopy guidance on a lateral view, the caudal space was identified. The skin and subcutaneous tissue was anesthetized with approximately 3 mL of 1% lidocaine using a 25-gauge regular needle. Under direct visualization with fluoroscopy, using a 22-gauge 3-1/2-inch spinal needle, the needle was advanced via the skin through the sacral hiatus. The tip of the needle was passed through the sacrococcygeal ligament and advanced to approximately S4 area. After negative aspiration of blood or CSF, a total of 3 mL of contrast was injected to confirm correct placement of the needle as well as cephalad spread. The spread was followed to approximately L5 area. After confirmation on AP as well as lateral view and repeated negative aspiration, a total of 15 mL of preservative-free 0.125% Marcaine with 80 mg of Depo-Medrol was injected easily. The needle was then removed intact. The patient experienced no sign or symptoms of intrathecal or intravascular injection. The patient experienced no paresthesia. The procedure was completed without any apparent difficulty or any complications. The patient appeared to tolerate it well. ASSESSMENT AND PLAN: This is a 78-year-old male with lumbosacral radiculopathy, lumbosacral spinal stenosis, postlaminectomy syndrome of the lumbar spine, status post diagnostic/therapeutic caudal epidural steroid injection under fluoroscopic guidance, patient will continue his current medications, patient will follow up in approximately 2 weeks for reevaluation. Surgical Findings: 1 Complications Complications: No Admit VTE Documentation VTE Present on Admission: No VTE Mechan Device Prophylaxis: None VTE Pharm Prophylaxis ordered?: No 10/02/24 0956 Cosigner Signature (if applicable): CC: Dr. Shell Siddiqui MD; Dr. Robby Garvin MD Signed [facility] MR/PAT.ANEon 09-29-2024 MR/PAT.[facility] Medical Records Department [address] [place] [id number] PAT - Anesthesia 09/29/24 1406 MR#: [id number] Acct: [id number] Name: MERRICK HODGES Rep #: [id number] : 1945 78 From: Kin Box MD PCP: Dr. Shell Siddiqui MD Status[place] [facility] [place] Race: C [place] [facility] Pre-Assessment Diagnosis/Proposed Procedure Planned Operative Procedure(s): CAUDAL EPIDURAL STEROID INJECTION UNDER FLUOROSCOPY Anesthesia History Anesthesia History - fulfillment specialist: Anesthesia History - fulfillment specialist Hx Hospitalization No 09/29/24 13:45 Any Problems With Anesthesia No 09/29/24 13:45 Cholinesterase deficiency No 09/29/24 13:45 You/Your Family Experience No 09/29/24 13:45 fever (hyperthermia) with Relationship Recent Exposure to Contagious No 08/26/23 07:33 Disease Does patient have nerve No 09/29/24 13:45 stimulator Patient instructed to have device shut off --Does patient have Pacemaker or ICD? When Was Last Pacemaker Check QUESTION #4 FULL TEXT: You/Your Family Experience fever (hyperthermia) with Anesthesia Last Oral Intake Last Oral intake: Last Oral Intake NPO since Meds taken in AM with sips of water? Meds patient instructed to take am of surgery PONV PONV - fulfillment specialist: PONV - fulfillment specialist Female No 09/29/24 13:45 HX of Motion Sickness No 09/29/24 13:45 HX of N/V After Surgery No 09/29/24 13:45 Non-Smoker Yes 09/29/24 13:45 Duration of Surgery greater No 09/29/24 13:45 than 60 minutes Number of Risk Factors 1 09/29/24 13:45 PONV Score Low Risk 09/29/24 13:45 Height Weight Height Weight: Anesthesia: Height Weight Height 5 ft 10 in 08/17/24 10:15 Respiratory Assessment Respiratory Assessment - fulfillment specialist: Respiratory Tract Infection Hx - fulfillment specialist Hx Respiratory Tract Infection No 09/29/24 13:45 STOP Sleep Apnea STOP Sleep Apnea - fulfillment specialist: STOP Sleep Apnea - fulfillment specialist Hx Hypertension Yes: CONTROLLED WITH MED 09/29/24 13:45 Hx Sleep Apnea No 09/29/24 13:45 CPAP No 09/29/24 13:45 BIPAP No 09/29/24 13:45 Do you snore loudly (louder Yes 09/29/24 13:45 than talking or can be heard Do you often feel tired/ Yes 09/29/24 13:45 fatigued/ sleepy during daytime? Has anyone observed you stop No 09/29/24 13:45 breathing during sleep? STOP Results Positive 09/29/24 13:45 QUESTION #5 FULL TEXT : Do you snore loudly (louder than talking or can be heard through closed doors)? 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 Specify any problems Hx of Preganancy in last 3 N/A 09/29/24 13:45 Months Nurse Filling Out Transfusion DSCHRIBER 09/29/24 13:45 Questions: Date: 09/29/24 09/29/24 13:45 Time: 13:47 09/29/24 13:45 Patient unable to answer at this time (ie. confused, unrespo /Reproduction History /Reproductive History - fulfillment specialist: /Reproductive Hx- fulfillment specialist Hx Now Gestational Age (in weeks): EDC: Hx Hx Para Hx Section SAB No 09/29/24 13:45 PFSH Medical History (Updated 09/29/24 @ 13:55 by Jenae Gray) Restless legs Back pain History of hiatal hernia Gastric reflux History of edema History of heart attack History of Holter monitoring Wears hearing aid Wears glasses Wears dentures Arthritis High cholesterol Dietary restriction Diverticulosis Former smoker History of pain when walking History of echocardiogram History of stress test Cardiology follow-up encounter History of irregular heartbeat NSVT (nonsustained ventricular tachycardia) Type 2 diabetes mellitus Essential hypertension Peripheral arterial disease History of non-ST elevation myocardial infarction (NSTEMI) 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 Normal [facility] Absolute lymphocyte countOrd ered By: Alexandr Lizarraga on 09-01-2024 Lymphocytes Auto (Unsp spec) [#/Vol] 1.78 10*3/uL 0.83-4.51 [facility] Absolute neutrophil countOrd ered By: Alexandr Lizarraga on 09-01-2024 Neutrophils (Bld) [#/Vol] 6.0 10*3/uL 2.0-7.7 [facility] Anion gap in Serum or Plasma Ordered By: Alexandr Lizarraga on 09-01-2024 Anion gap [Moles/Vol] 11 mmol/L 5-15 [facility] Automated lymphocyte count a s percentage of total leukocytesOrdered By: Alexandr Lizarraga on 09-01-2024 Lymphocytes/100 WBC Auto (Unsp spec) 20.2 % [facility] BUN/creatinine ratioOrdered By: Alexandr Lizarraga on 09-01-2024 Urea nitrogen/Creatinine [Mass ratio] 17.7 mg/mg 04-02 [facility] Basic Metabolic Profile (BMP )on 09-01-2024 BUN/CRE 17.7 RATIO Normal 04-02 [facility] Comment on above: Performed By: #### L 501.9520, L501.5200, L500.2500, L100.0100 ####[facility] [address] [place], [address] Calcium [Mass/Vol] 8.9 mg/dL Normal 7.6-11.0 [facility] Comment on above: Performed By: #### L 501.9520, L501.5200, L500.2500, L100.0100 ####[facility] [address] [place], [address] Chloride [Moles/Vol] 105 mmol/L Normal 98-108 [facility] Comment on above: Performed By: #### L 501.9520, L501.5200, L500.2500, L100.0100 ####[facility] [address] [place], [address] CO2 [Moles/Vol] 22.4 mmol/L Normal 21.0-32.0 [facility] Comment on above: Performed By: #### L 501.9520, L501.5200, L500.2500, L100.0100 ####[facility] [address] [place], [address] Creatinine [Mass/Vol] 1.14 mg/dL Normal 0.70-1.20 [facility] Comment on above: Performed By: #### L 501.9520, L501.5200, L500.2500, L100.0100 ####[facility] [address] [place], [address] GAP 11 Normal 5-15 [facility] Comment on above: Performed By: #### L 501.9520, L501.5200, L500.2500, L100.0100 ####[facility] [address] [place], [address] GFR/1.73 sq M.predicted among non-blacks MDRD (S/P/Bld) [Vol rate/Area] 66 mL/min/{1.73_m2} Normal >60 [facility] Comment on above: Result Comment: mL/m in/1.73m2 CKD-EPI Creatinine Equation (2020) Performed By: #### L 501.9520, L501.5200, L500.2500, L100.0100 ####[facility] [address] [place], [address] Glucose [Mass/Vol] 139 mg/dL High 70-99 [facility] Comment on above: Performed By: #### L 501.9520, L501.5200, L500.2500, L100.0100 ####[facility] [address] [place], [address] Potassium [Moles/Vol] 4.3 mmol/L Normal 3.3-5.1 [facility] Comment on above: Performed By: #### L 501.9520, L501.5200, L500.2500, L100.0100 ####[facility] [address] [place], [address] Sodium [Moles/Vol] 138 mmol/L Normal 133-145 [facility] Comment on above: Performed By: #### L 501.9520, L501.5200, L500.2500, L100.0100 ####[facility] [address] [place], [address] Urea nitrogen [Mass/Vol] 20 mg/dL High 4-19 [facility] Comment on above: Performed By: #### L 501.9520, L501.5200, L500.2500, L100.0100 ####[facility] [address] [place], [address] Basophil percentageOrdered B y: Alexandr Lizarraga on 09-01-2024 Basophils/100 WBC (Bld) 0.7 % 0-1 [facility] CBC W/Diff, Automatedon 08-13 Absolute Lymph 1.78 X10 3/uL Normal 0.83-4.51 [facility] Comment on above: Performed By: #### L 501.9520, L501.5200, L500.2500, L100.0100 ####[facility] [address] [place], [address] Absolute Neut 6.0 X10 3/uL Normal 2.0-7.7 [facility] Comment on above: Performed By: #### L 501.9520, L501.5200, L500.2500, L100.0100 ####[facility] [address] [place], [address] Basophils/100 WBC (Bld) 0.7 % Normal 0-1 [facility] Comment on above: Performed By: #### L 501.9520, L501.5200, L500.2500, L100.0100 ####[facility] [address] [place], [address] Eosinophils/100 WBC (Bld) 2.3 % Normal 0-5 [facility] Comment on above: Performed By: #### L 501.9520, L501.5200, L500.2500, L100.0100 ####[facility] [address] [place], [address] Erythrocyte distribution width (RBC) [Ratio] 13.4 % Normal 11.6-14.6 [facility] Comment on above: Performed By: #### L 501.9520, L501.5200, L500.2500, L100.0100 ####[facility] [address] [place], [address] Hematocrit (Bld) [Volume fraction] 43.8 % Normal 40-54 [facility] Comment on above: Performed By: #### L 501.9520, L501.5200, L500.2500, L100.0100 ####[facility] [address] [place], [address] Hemoglobin (Bld) [Mass/Vol] 14.3 g/dL Normal 13.0-16.5 [facility] Comment on above: Performed By: #### L 501.9520, L501.5200, L500.2500, L100.0100 ####[facility] [address] [place], [address] IG% 0.200 Normal 0.0-0.9 [facility] Comment on above: Result Comment: IG% - Immature Granulocytes (promyelocytes, myelocytes and metamyelocytes) > 1% indicates that a LEFT SHIFT is Present. Performed By: #### L 501.9520, L501.5200, L500.2500, L100.0100 ####[facility] [address] [place], [address] Lymphocytes/100 WBC (Bld) 20.2 % Normal 19-41 [facility] Comment on above: Performed By: #### L 501.9520, L501.5200, L500.2500, L100.0100 ####[facility] [address] [place], [address] MCH (RBC) [Entitic mass] 30.2 pg Normal 27.0-32.0 [facility] Comment on above: Performed By: #### L 501.9520, L501.5200, L500.2500, L100.0100 ####[facility] [address] [place], [address] MCHC (RBC) [Mass/Vol] 32.6 g/dL Normal 32-36 [facility] Comment on above: Performed By: #### L 501.9520, L501.5200, L500.2500, L100.0100 ####[facility] [address] [place], [address] MCV (RBC) [Entitic vol] 92.4 fL Normal 80-94 [facility] Comment on above: Performed By: #### L 501.9520, L501.5200, L500.2500, L100.0100 ####[facility] [address] [place], [address] Monocytes/100 WBC (Bld) 8.5 % Normal 0-10 [facility] Comment on above: Performed By: #### L 501.9520, L501.5200, L500.2500, L100.0100 ####[facility] [address] [place], [address] Neutrophils/100 WBC (Bld) 68.1 % Normal 47-70 [facility] Comment on above: Performed By: #### L 501.9520, L501.5200, L500.2500, L100.0100 ####[facility] [address] [place], [address] Nucleated RBC (Bld) [#/Vol] 0 10*3/uL Normal 0-5 [facility] Comment on above: Performed By: #### L 501.9520, L501.5200, L500.2500, L100.0100 ####[facility] [address] [place], [address] Platelet mean volume (Bld) [Entitic vol] 9.9 fL Normal 6.2-12.0 [facility] Comment on above: Performed By: #### L 501.9520, L501.5200, L500.2500, L100.0100 ####[facility] [address] [place], [address] Platelets (Bld) [#/Vol] 226 10*3/uL Normal 150-450 [facility] Comment on above: Performed By: #### L 501.9520, L501.5200, L500.2500, L100.0100 ####[facility] [address] [place], [address] RBC (Bld) [#/Vol] 4.74 10*6/uL Normal 4.6-6.2 [facility] Comment on above: Performed By: #### L 501.9520, L501.5200, L500.2500, L100.0100 ####[facility] [address] [place], [address] RDW SD 45.3 fl High 35.1-43.9 [facility] Comment on above: Performed By: #### L 501.9520, L501.5200, L500.2500, L100.0100 ####[facility] [address] [place], [address] WBC (Bld) [#/Vol] 8.8 10*3/uL Normal 4.4-11.0 [facility] Comment on above: Performed By: #### L 501.9520, L501.5200, L500.2500, L100.0100 ####[facility] [address] [place], [address] Carbon dioxide, total [Moles /volume] in Central venous bloodOrdered By: Alexandr Lizarraga on 09-01-2024 CO2 [Moles/Vol] 22.4 mmol/L 21.0-32.0 [facility] Chloride assayOrdered By: Haley Lizarraga on 09-01-2024 Chloride [Moles/Vol] 105 mmol/L 98-108 [facility] Eosinophil percentageOrdered By: Alexandr Lizarraga on 09-01-2024 Eosinophils/100 WBC (Bld) 2.3 % 0-5 [facility] Erythrocyte distribution wid th ratioOrdered By: Alexandr Lizarraga on 09-01-2024 Erythrocyte distribution width (RBC) [Ratio] 13.4 % 11.6-14.6 [facility] Erythrocyte distribution wid th standard deviationOrdered By: Alexandr Lizarraga on 09-01-2024 Erythrocyte distribution width (RBC) [Entitic vol] 45.3 fL High 35.1-43.9 [facility] Erythrocyte distribution width (RBC) [Ratio] 45.3 fl High 35.1-43.9 [facility] GFR/1.73 sq M.predicted ray g non-blacks MDRD (S/P/Bld) [Vol rate/Area]Ordered By: Alexandr Lizarraga on 09-01-2024 Estimated GFR (MDRD) Non-Af Amer 66 >60 [facility] Comment on above: mL/min/1.73m2 CKD-EP I Creatinine Equation (2020) Glomerular filtration rate ( GFR) estimation/1.73 sq m using serum, plasma, or whole bOrdered By: Alexandr Lizarraga on 09-01-2024 GFR/1.73 sq M.predicted among non-blacks MDRD (S/P/Bld) [Vol rate/Area] 66 mL/min/{1.73_m2} >60 [facility] Comment on above: mL/min/1.73m2 CKD-EP I Creatinine Equation (2020) Hematocrit Auto (Bld) [Volum e fraction]Ordered By: Alexandr Lizarraga on 09-01-2024 Hematocrit (Bld) [Volume fraction] 43.8 % 40-54 [facility] Hemoglobin measurementOrdere d By: Alexandr Lizarraga on 09-01-2024 Hemoglobin (Bld) [Mass/Vol] 14.3 g/dL 13.0-16.5 [facility] Immature granulocytes/100 WB C Auto (Bld)Ordered By: Alexandr Lizarraga on 09-01-2024 Immature granulocytes/100 WBC (Bld) 0.200 % 0.0-0.9 [facility] Comment on above: IG% - Immature Granu locytes (promyelocytes, myelocytes and metamyelocytes) > 1% indicates that a LEFT SHIFT is Present. Lymphocytes Auto (Unsp spec) [#/Vol]Ordered By: Alexandr Lizarraga on 09-01-2024 Lymphocytes (Bld) [#/Vol] 1.78 10*3/uL 0.83-4.51 [facility] Lymphocytes/100 WBC Auto (Un sp spec)Ordered By: Alexandr Lizarraga on 09-01-2024 Lymphocytes/100 WBC (Bld) 20.2 % 19-41 [facility] MCV (mean corpuscular volume ) determinationOrdered By: Alexandr Lizarraga on 09-01-2024 MCV (RBC) [Entitic vol] 92.4 fL 80-94 [facility] Magnesiumon 09-01-2024 Magnesium [Mass/Vol] 2.0 mg/dL Normal 1.5-2.2 [facility] Comment on above: Performed By: #### L 501.9520, L501.5200, L500.2500, L100.0100 ####[facility] [address] [place], [address] Magnesium (Unsp spec) [Mass/ Vol]Ordered By: Alexandr Lizarraga on 09-01-2024 Magnesium [Mass/Vol] 2.0 mg/dL 1.5-2.2 [facility] Magnesium measurement (mass/ volume)Ordered By: Alexandr Lizarraga on 09-01-2024 Magnesium (Unsp spec) [Mass/Vol] 2.0 mg/dL 1.5-2.2 [facility] Mean corpuscular hemoglobin (MCH) determinationOrdered By: Alexandr Lizarraga on 09-01-2024 MCH (RBC) [Entitic mass] 30.2 pg 27.0-32.0 [facility] Mean corpuscular hemoglobin concentration (MCHC) determinationOrdered By: Alexandr Lizarraga on 09-01-2024 MCHC (RBC) [Mass/Vol] 32.6 g/dL 32-36 [facility] Mean platelet volume determi nationOrdered By: Alexandr Lizarraga on 09-01-2024 Platelet mean volume (Bld) [Entitic vol] 9.9 fL 6.2-12.0 [facility] Monocyte percentageOrdered B y: Alexandr Lizarraga on 09-01-2024 Monocytes/100 WBC (Bld) 8.5 % 0-10 [facility] Neutrophil percentageOrdered By: Alexandr Lizarraga on 09-01-2024 Neutrophils/100 WBC (Bld) 68.1 % 47-70 [facility] Nucleated red blood cell per centageOrdered By: Alexandr Lizarraga on 09-01-2024 Nucleated RBC/100 WBC (Bld) [Ratio] 0 % 0-5 [facility] Platelet countOrdered By: Haley Lizarraga on 09-01-2024 Platelets (Bld) [#/Vol] 226 10*3/uL 150-450 [facility] Potassium (Unsp spec) [Mass/ Vol]Ordered By: Alexandr Lizarraga on 09-01-2024 Potassium [Moles/Vol] 4.3 mmol/L 3.3-5.1 [facility] Potassium measurement (mass/ volume)Ordered By: Alexandr Lizarraga on 09-01-2024 Potassium (Unsp spec) [Mass/Vol] 4.3 mmol/L 3.3-5.1 [facility] RBC Auto (Bld) [#/Vol]Ordere d By: Alexandr Lizarraga on 09-01-2024 RBC (Bld) [#/Vol] 4.74 10*6/uL 4.6-6.2 [facility] Serum creatinine measurement (mass/volume)Ordered By: Alexandr Lizarraga on 09-01-2024 Creatinine [Mass/Vol] 1.14 mg/dL 0.70-1.20 [facility] Serum glucose measurement (m ass/volume)Ordered By: Alexandr Lizarraga on 09-01-2024 Glucose [Mass/Vol] 139 mg/dL High 70-99 [facility] Serum or plasma calcium heladio urement (mass/volume)Ordered By: Alexandr Lizarraga on 09-01-2024 Calcium [Mass/Vol] 8.9 mg/dL 7.6-11.0 [facility] Serum or plasma urea nitroge n measurement (mass/volume)Ordered By: Alexandr Lizarraga on 09-01-2024 Urea nitrogen [Mass/Vol] 20 mg/dL High 4-19 [facility] Sodium levelOrdered By: Roberto mckee Zia on 09-01-2024 Sodium [Moles/Vol] 138 mmol/L 133-145 [facility] TSH DL <= 0.005 mIU/L QnOrde red By: Alexandr Lizarraga on 09-01-2024 Thyroid Stimulating Hormone (TSH) 1.670 uIU/mL 0.300-4.20 0 [facility] TSH Qn 1.670 uIU/mL 0.300-4.20 0 [facility] Thyroid Stim Hormone (TSH)on 09-01-2024 TSH 1.670 uIU/mL Normal 0.300-4.20 0 [facility] Comment on above: Performed By: #### L 501.9520, L501.5200, L500.2500, L100.0100 ####[facility] [address] [place], [address] White blood cell (WBC) count Ordered By: Alexandr Lizarraga on 09-01-2024 WBC (Bld) [#/Vol] 8.8 10*3/uL 4.4-11.0 [facility] 12 Lead E[place] performed [place] [facility] [place] 08-17-2024 12 Lead EKG performed by [facility] [address] [place] [address] 12 Lead EKG performed [place] [facility] 08/17/24 1028 MR#: [id number] Acct: [id number] Name: HODGESMERRICK VERONA Rep #: [id number] : 1945 78 From: Alexandr Lizarraga MD Attending Dr: Dr. Alexandr Lizarraga MD Status: DE P AMB Ordering Dr: Alexandr Lizarraga MD Date: 08/17/24 [place] [facility] Sex: M C Admitted: [facility]12 Lead EKG performed by [facility] ECG Report Interpretation -Sinus Rhythm -Frequent pvcs -ventricular trigeminy ABNORMAL RHYTHMElectronically signed on 08/17/2024 at 10:[address] Alexandr Lizarraga TuTanda Version [id number] 08/17/24 1048 Date Alexandr Lizarraga MD CC: Dr. Shell Siddiqui MD Date Dictated: 08/17/24 1028 Date Transcribed: 08/17/24 102 Hook Puller: Signed Normal [facility] Cardiology Visit Reporton Cardiology Visit Report [facility] [address] [place] [address] OFFICE VISIT Date of Service: 08/17/24 MR#: [id number] Acct: [id number] Name: MERRICK HODGES Rep #: [id number] : 1945 Provider: Dr. Alexandr myers MD Age/Sex: 78/M [place] [facility] Status: Signed HPI HPI History of Present Illness Details: Patient is a very pleasant 78-year-old white male that comes in today for monitoring of his cardiovascular status. Patient carries a history of coronary disease status post stenting of the diagonal branch in 2003 which was done by myself at [facility]. He also has a history of peripheral arterial disease of his lower extremities status post femorofemoral bypass which has been monitored and subsequently reintervened upon percutaneously by Dr. Chávez. Dr. Chávez also follows his carotids December 2023 he had moderate 50 to 69% stenosis on the left and less than 50% on the right. He denies any TIA or CVA type symptoms. The patient denies any claudication at this time although he does tell me he has trouble walking up a flight of stairs. 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 He drinks about a cup of coffee a day. Patient's blood pressure in office today was 175/68. He reports to me that in his home environment it runs 120???125 systolic routinely. The patient has noted some irregular heartbeats at home and on auscultation today he does have extrasystoles. EKG done in the office shows normal sinus rhythm at 66 bpm with frequent PVCs in a trigeminal pattern. Patient had a previous Holter in November 2022 which showed 5.6% PVCs there were no runs of VT. He also had a few supraventricular beats. Was no atrial fibrillation. The patient denies any syncope or near syncope denies any PND orthopnea he does note dependent edema in his right lower extremity that resolves overnight. Intake Vital Signs 06/09/24 09:21 07/11/24 13:02 08/17/24 10:15 Height 5 ft 10 in 5 ft 10 in 5 ft 10 in Weight: 170 lb BMI 24.3 BP 175/68 H Blood Pressure Location Rt brachial Position Sitting Respiration 18 Pulse 63 Pulse Source Monitor Pulse Oximetry (%) 96 Oxygen Delivery Method room air Intake Visit Reasons: 6 M FU Clinical Supervisor Required: No Accompanied by: Self Is patient in pain?: No Allergies atorvastatin (From Lipitor) Adverse Reaction (Intermediate, Verified 08/17/24 10:15) Myalgias Medications ???Medication ???Instructions ???Recorded ???Confirmed ???Type amlodipine 5 mg tablet 5 mg PO BID 04/16/17 08/17/24 Hist ory fosinopril 20 mg tablet 20 mg PO DAILY 04/16/17 08/17/24 H istory multivitamin 1 tab PO DAILY 04/16/17 08/17/24 H istory aspirin 81 mg tablet,delayed 81 mg PO QDAY 01/06/18 08/17/24 Hi story release (Adult Aspirin Regimen) rosuvastatin 10 mg tablet 10 mg PO DAILY 10/17/21 08/17/24 H istory metoprolol tartrate 50 mg tablet 50 mg PO BID #60 tabs 04/27/2212/06 Rx clopidogrel 75 mg tablet See Rx Instructions .Route 4 08/17/24 Rx .COMPLEX #90 tabs Ejection fraction %: 65 Have you fallen in the past year?: No PFSH Medical History Wears hearing aid Wears glasses Wears dentures Arthritis High cholesterol Dietary restriction Diverticulosis Abdominal bloating Former smoker Leg cramps History of pain when walking History of echocardiogram History of stress test Cardiology follow-up encounter History of irregular heartbeat NSVT (nonsustained ventricular tachycardia) Type 2 diabetes mellitus Essential hypertension Peripheral arterial disease History of non-ST elevation myocardial infarction (NSTEMI) 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 Lumbar stenosis Chronic back pain Overweight (BMI 25.0-29.9) Hyperlipidemia Hypertension Surgical History H/O bilateral cataract extraction Spinal cord stimulator status History of back surgery S/P femoral-femoral bypass surgery Stented coronary artery ( 09/21/03) History of left heart catheterization ( 04/02/22) Family History Father , of cancer Myocardial infarction, Onset Age: 70 Cancer kidney Mother , age 66 Bleeding in brain due to brain aneurysm Brother Myocardial infarction, Onset Age: 62 CAD (coronary artery disease) Social History household members: spouse current occupational status: employed current occupation: [employer] Smoking Status: Former smoker quit date: 06/14/01 (more content not included)... Normal [facility] Orthopedic Visit Reporton Orthopedic Visit Report [facility] [address] [place] [address] OFFICE VISIT Date of Service: 07/18/24 MR#: [id number] Acct: [id number] Name: MERRICK HODGES Rep #: [id number] : 1945 Provider: Dr. Yandel Mccarthy MD Age/Sex: 78/M [place] [facility] [place] Status: Signed Intake Vital Signs 07/11/24 13:02 Height 5 ft 10 in Intake Visit Reasons: LUMBAR SPINE Chief Complaint: lumbar spine Allergies atorvastatin (From Lipitor) Adverse Reaction (Intermediate, Verified 07/18/24 07:36) Myalgias Medications ???Medication ???Instructions ???Recorded ???Confirmed ???Type amlodipine 5 mg tablet 5 mg PO BID 04/16/17 07/18/24 Hist ory fosinopril 20 mg tablet 20 mg PO DAILY 04/16/17 07/18/24 H istory multivitamin 1 tab PO DAILY 04/16/17 07/18/24 H istory aspirin 81 mg tablet,delayed 81 mg PO QDAY 01/06/18 07/18/24 Hi story release (Adult Aspirin Regimen) rosuvastatin 10 mg tablet 10 mg PO DAILY 10/17/21 07/18/24 H istory metoprolol tartrate 50 mg tablet 50 mg PO BID #60 tabs 04/27/2210/06 Rx clopidogrel 75 mg tablet See Rx Instructions .Route 4 07/18/24 Rx .COMPLEX #90 tabs Have you fallen in the past year?: No PFSH Medical History Wears hearing aid Wears glasses Wears dentures Arthritis High cholesterol Dietary restriction Diverticulosis Abdominal bloating Former smoker Leg cramps History of pain when walking History of echocardiogram History of stress test Cardiology follow-up encounter History of irregular heartbeat NSVT (nonsustained ventricular tachycardia) Type 2 diabetes mellitus Essential hypertension Peripheral arterial disease History of non-ST elevation myocardial infarction (NSTEMI) 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 Lumbar stenosis Chronic back pain Overweight (BMI 25.0-29.9) Hyperlipidemia Hypertension Surgical History H/O bilateral cataract extraction Spinal cord stimulator status History of back surgery S/P femoral-femoral bypass surgery Stented coronary artery ( 09/21/03) History of left heart catheterization ( 04/02/22) Family History Father , of cancer Myocardial infarction, Onset Age: 70 Cancer kidney Mother , age 66 Bleeding in brain due to brain aneurysm Brother Myocardial infarction, Onset Age: 62 CAD (coronary artery disease) Social History household members: spouse current occupational status: employed current occupation: [employer] Smoking Status: Former smoker quit date: 06/14/01 pack-years: 20 Electronic Cigarette Use: not used how long ago did patient quit smokin alcohol intake: never substance use type: does not use do you feel safe at home: Yes HPI LUMBAR SPINE Details: This documentation accurately reflects the service provided and the decisions made by me, Dr. Yandel Mccarthy MD 07/18/24 8351. Part of today???s visit was documented by [ ], acting as scribe. MERRICK HODGES is a 78 year old M here today for a followup on his lumbar spine. He states that he continues to have pain and denies any changes. He denies any numbness, tingling or radiating pain. Patient notes that his pain is across his entire low back and then travels up on his right sided low back. Patient denies any recent injections. Patient takes tylenol and ibuprofen which is slightly helpful. He has his CT scan which is here for review. 06/09/24: MERRICK HODGES is a 78 year old M here today for lumbar spine pain. Pt. advises he has been experiencing back pain for several years since his bypass surgery in 1998. He had been experiencing left leg pain since the bypass and has had 3 lumbar surgeries since then which were not helpful with his leg pain. He was seen by a vascular surgeon who cleaned out his femoral artery and he hasn't had left leg pain since. He continued to have low back pain and was seen by Dr. Boswell who referred him Marino who recommended a spine stimulator. He had the spine stimulator for a year and a half but it was not helpful. He had the spine stimulator removed back in 2023 and had a lumbar spine steroid injection about 2 months ago which was helpful for a couple days. The leads from the stimulator were left behind but the battery pack was removed. He is unsure if he is able to have a MRI. He describes his pain as a constant dull pain with intermittent sharp twinges. The pain starts on the right side of his low back and moves across to the left the longer he is active. 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 Normal [facility] Absolute lymphocyte countOrd ered By: Mary Garcia on 07-11-2024 Lymphocytes Auto (Unsp spec) [#/Vol] 1.73 10*3/uL 0.83-4.51 [facility] Absolute neutrophil countOrd ered By: Mary Garcia on 07-11-2024 Neutrophils (Bld) [#/Vol] 5.9 10*3/uL 2.0-7.7 [facility] Activated partial thrombopla stin time (aPTT) in platelet poor plasma by coagulation aOrdered By: Marydavis Garcia on 07-11-2024 aPTT Coag (PPP) [Time] 28.0 s 24.1-36.2 [facility] Automated lymphocyte count a s percentage of total leukocytesOrdered By: Marydavis Garcia on 07-11-2024 Lymphocytes/100 WBC Auto (Unsp spec) 19.1 % 19-41 [facility] Basophil percentageOrdered B y: Mary Garcia on 07-11-2024 Basophils/100 WBC (Bld) 0.9 % 0-1 [facility] CBC W/Diff, Automatedon 06-15 Absolute Lymph 1.73 X10 3/uL Normal 0.83-4.51 [facility] Comment on above: Performed By: #### L 300.3900, L100.0100, L300.4310 #### [facility] [address] [place], [address] Absolute Neut 5.9 X10 3/uL Normal 2.0-7.7 [facility] Comment on above: Performed By: #### L 300.3900, L100.0100, L300.4310 #### [facility] [address] [place], [address] Basophils/100 WBC (Bld) 0.9 % Normal 0-1 [facility] Comment on above: Performed By: #### L 300.3900, L100.0100, L300.4310 #### [facility] [address] [place], [address] Eosinophils/100 WBC (Bld) 2.6 % Normal 0-5 [facility] Comment on above: Performed By: #### L 300.3900, L100.0100, L300.4310 #### [facility] [address] [place], [address] Erythrocyte distribution width (RBC) [Ratio] 14.2 % Normal 11.6-14.6 [facility] Comment on above: Performed By: #### L 300.3900, L100.0100, L300.4310 #### [facility] [address] [place], [address] Hematocrit (Bld) [Volume fraction] 42.4 % Normal 40-54 [facility] Comment on above: Performed By: #### L 300.3900, L100.0100, L300.4310 #### [facility] [address] [place], [address] Hemoglobin (Bld) [Mass/Vol] 14.1 g/dL Normal 13.0-16.5 [facility] Comment on above: Performed By: #### L 300.3900, L100.0100, L300.4310 #### [facility] [address] [place], [address] IG% 0.200 Normal 0.0-0.9 [facility] Comment on above: Result Comment: IG% - Immature Granulocytes (promyelocytes, myelocytes and metamyelocytes) > 1% indicates that a LEFT SHIFT is Present. Performed By: #### L 300.3900, L100.0100, L300.4310 #### [facility] [address] [place], [address] Lymphocytes/100 WBC (Bld) 19.1 % Normal 19-41 [facility] Comment on above: Performed By: #### L 300.3900, L100.0100, L300.4310 #### [facility] [address] [place], [address] MCH (RBC) [Entitic mass] 30.8 pg Normal 27.0-32.0 [facility] Comment on above: Performed By: #### L 300.3900, L100.0100, L300.4310 #### [facility] [address] [place], [address] MCHC (RBC) [Mass/Vol] 33.3 g/dL Normal 32-36 [facility] Comment on above: Performed By: #### L 300.3900, L100.0100, L300.4310 #### [facility] [address] [place], [address] MCV (RBC) [Entitic vol] 92.6 fL Normal 80-94 [facility] Comment on above: Performed By: #### L 300.3900, L100.0100, L300.4310 #### [facility] [address] [place], [address] Monocytes/100 WBC (Bld) 11.8 % High 0-10 [facility] Comment on above: Performed By: #### L 300.3900, L100.0100, L300.4310 #### [facility] [address] [place], [address] Neutrophils/100 WBC (Bld) 65.4 % Normal 47-70 [facility] Comment on above: Performed By: #### L 300.3900, L100.0100, L300.4310 #### [facility] [address] [place], [address] Nucleated RBC (Bld) [#/Vol] 0 10*3/uL Normal 0-5 [facility] Comment on above: Performed By: #### L 300.3900, L100.0100, L300.4310 #### [facility] [address] [place], [address] Platelet mean volume (Bld) [Entitic vol] 9.5 fL Normal 6.2-12.0 [facility] Comment on above: Performed By: #### L 300.3900, L100.0100, L300.4310 #### [facility] [address] [place], [address] Platelets (Bld) [#/Vol] 246 10*3/uL Normal 150-450 [facility] Comment on above: Performed By: #### L 300.3900, L100.0100, L300.4310 #### [facility] [address] [place], [address] RBC (Bld) [#/Vol] 4.58 10*6/uL Low 4.6-6.2 [facility] Comment on above: Performed By: #### L 300.3900, L100.0100, L300.4310 #### [facility] [address] [place], [address] RDW SD 48.0 fl High 35.1-43.9 [facility] Comment on above: Performed By: #### L 300.3900, L100.0100, L300.4310 #### [facility] [address] [place], [address] WBC (Bld) [#/Vol] 9.1 10*3/uL Normal 4.4-11.0 [facility] Comment on above: Performed By: #### L 300.3900, L100.0100, L300.4310 #### [facility] [address] [place], [address] Eosinophil percentageOrdered By: Mary Garcia on 07-11-2024 Eosinophils/100 WBC (Bld) 2.6 % 0-5 [facility] Erythrocyte distribution wid th ratioOrdered By: Mary Garcia on 07-11-2024 Erythrocyte distribution width (RBC) [Ratio] 14.2 % 11.6-14.6 [facility] Erythrocyte distribution wid th standard deviationOrdered By: Mary Garcia on 07-11-2024 Erythrocyte distribution width (RBC) [Entitic vol] 48.0 fL High 35.1-43.9 [facility] Erythrocyte distribution width (RBC) [Ratio] 48.0 fl High 35.1-43.9 [facility] Hematocrit Auto (Bld) [Volum e fraction]Ordered By: Mary Garcia on 07-11-2024 Hematocrit (Bld) [Volume fraction] 42.4 % 40-54 [facility] Hemoglobin measurementOrdere d By: Marydavis Garcia on 07-11-2024 Hemoglobin (Bld) [Mass/Vol] 14.1 g/dL 13.0-16.5 [facility] Immature granulocytes/100 WB C Auto (Bld)Ordered By: Mary Garcia on 07-11-2024 Immature granulocytes/100 WBC (Bld) 0.200 % 0.0-0.9 [facility] Comment on above: IG% - Immature Granu locytes (promyelocytes, myelocytes and metamyelocytes) > 1% indicates that a LEFT SHIFT is Present. International normalized rat io (INR) calculationOrdered By: Mary Garcia on 07-11-2024 INR Coag (Bld) [Relative time] 1.0 {INR} [facility] Lumbar Myelogramon Lumbar Myelogram [facility] Imaging Services [address] [place] [address] [id number] Lumbar Myelogram MR#: [id number] Acct: [id number] Name: MERRICK HODGES Rep #: [id number] : 1945 M 78 From: Abel cazares MD PCP: Dr. Shell Siddiqui MD Status: REG CLI Study: Lumbar Myelogram Date of Exam: 07/11/24 Exam# [id number] Ordering Dr: Yandel Mccarthy MD EXAM: LUMBAR MYELOGRAM CLINICAL HISTORY: Chronic low back pain. Prior lumbar laminectomy and fusion. COMPARISON: None. TECHNIQUE: The procedure as well as the benefits and possible complications including bleeding and infection were explained to the patient. Consent was signed. The patient was placed in the prone position. The overlying skin was prepped and draped in the usual sterile fashion. Following local anesthetic application and under fluoroscopic guidance, a 22 gauge spinal needle was placed at the L4-L5 disc space level. CSF was obtained. 10 cc of Isovue-M 200 was injected within the thecal sac. FINDINGS: The patient is status post fusion and laminectomy at the L5-S1 level. No evidence of spinal stenosis. No evidence of nerve root compression in this examination. A CT scan will follow. RAD/Lumbar Myelogram IMPRESSION: Successful lumbar myelogram as discussed. CT scan of the lumbar spine will follow. Reading Location: [place] [address] CC: Dr. Shell Siddiqui MD; Dr. Yandel Mccarthy MD Hook Puller: Signed Normal [facility] Lymphocytes Auto (Unsp spec) [#/Vol]Ordered By: Mary Garcia on 07-11-2024 Lymphocytes (Bld) [#/Vol] 1.73 10*3/uL 0.83-4.51 [facility] Lymphocytes/100 WBC Auto (Un sp spec)Ordered By: Mary Garcia on 07-11-2024 Lymphocytes/100 WBC (Bld) 19.1 % 19-41 [facility] MCV (mean corpuscular volume ) determinationOrdered By: Mary Garcia on 07-11-2024 MCV (RBC) [Entitic vol] 92.6 fL 80-94 [facility] Mean corpuscular hemoglobin (MCH) determinationOrdered By: Marydavis Garcia on 07-11-2024 MCH (RBC) [Entitic mass] 30.8 pg 27.0-32.0 [facility] Mean corpuscular hemoglobin concentration (MCHC) determinationOrdered By: Marydavis Garcia on 07-11-2024 MCHC (RBC) [Mass/Vol] 33.3 g/dL 32-36 [facility] Mean platelet volume determi nationOrdered By: Mary Garcia on 07-11-2024 Platelet mean volume (Bld) [Entitic vol] 9.5 fL 6.2-12.0 [facility] Monocyte percentageOrdered B y: Mary Garcia on 07-11-2024 Monocytes/100 WBC (Bld) 11.8 % High 0-10 [facility] Neutrophil percentageOrdered By: Mary Garcia on 07-11-2024 Neutrophils/100 WBC (Bld) 65.4 % 47-70 [facility] Nucleated red blood cell per centageOrdered By: Mary Garcia on 07-11-2024 Nucleated RBC/100 WBC (Bld) [Ratio] 0 % 0-5 [facility] Partial Thromboplast Timeon 07-11-2024 aPTT Coag (Bld) [Time] 28.0 s Normal 24.1-36.2 [facility] Comment on above: Performed By: #### L 300.3900, L100.0100, L300.4310 ####[facility] [address] [place], [address] Platelet countOrdered By: Maxi Garcia on 07-11-2024 Platelets (Bld) [#/Vol] 246 10*3/uL 150-450 [facility] Prothrombin Time w/INRon INR Coag (PPP) [Relative time] 1.0 {INR} Normal [facility] Comment on above: Performed By: #### L 300.3900, L100.0100, L300.4310 ####[facility] [address] [place], [address] PT Coag (PPP) [Time] 13.4 s Normal 11.7-14.9 [facility] Comment on above: Performed By: #### L 300.3900, L100.0100, L300.4310 ####[facility] [address] [place], [address] Prothrombin timeOrdered By: Mary Garcia on 07-11-2024 PT Coag (PPP) [Time] 13.4 s 11.7-14.9 [facility] RBC Auto (Bld) [#/Vol]Ordere d By: Mary Garcia on 07-11-2024 RBC (Bld) [#/Vol] 4.58 10*6/uL Low 4.6-6.2 [facility] Spine Lumbar WITH Contraston 07-11-2024 Spine Lumbar WITH Contrast [facility] Imaging Services [address] [place] [address] Spine Lumbar WITH Contrast MR#: [id number] Acct: [id number] Name: MERRICK HODGES Rep #: [id number] : 1945 M 78 From: Robby Larios DO PCP: Dr. Shell Siddiqui MD Status: REG CLI Study: Spine Lumbar WITH Contrast Date of Exam: 07/11 Exam# [id number] Ordering Dr: Yandel Mccarthy MD PROCEDURE: Lumbar spine myelogram REASON FOR EXAM: Chronic low back pain. Prior surgery.. TECHNIQUE: Lumbar spine CT with intrathecal contrast. COMPARISON: 05/09/2024 FINDINGS: 5 lumbar type vertebral levels. Slight levocurvature involving the mid lumbar spine. Vertebral body heights appear maintained. Minimal retrolisthesis of L1 on L2, stable. No acute lumbar spine fractures or dislocations are identified. Mvqzlena-bu-wvimqe degenerative disc changes seen at the L5-S1 level. Magn-eg-efqqkimk degenerative disc and endplate changes seen at the L1-2 level. Remaining intervertebral disc spaces appear relatively well preserved. The conus terminates posterior to the L1 level. Cauda equina appears within normal limits. Vascular calcifications throughout the abdominal aorta and iliac arteries. Posterior fusion hardware/pedicle screws seen at the L5-S1 level. Negative for hardware failure. Disc levels as follows: T12-L1: No disc herniation, central spinal or neural foraminal stenosis bilaterally L1-2: Minimal retrolisthesis, unchanged. Mild broad-based disc bulge. No significant central spinal stenosis. There is mild narrowing of the right lateral recess. Mild neural foraminal stenosis on the right. No significant neural foraminal stenosis on the left. L2-3: Broad-based disc bulge. No significant central spinal stenosis. There is mild narrowing of the lateral recesses. Facet arthrosis bilaterally. Mild neural foraminal stenosis bilaterally. L3-4: Mild intraforaminal disc bulge on the right. Facet arthrosis and mild ligamentum flavum thickening. No central spinal stenosis. Mild neural foraminal stenosis on the right. No significant neural foraminal stenosis on the left L4-5: No significant disc bulge. There is facet arthrosis and mild ligamentum flavum thickening. Mild narrowing of the lateral recesses. No central spinal stenosis. Mild neural foraminal stenosis bilaterally slightly worse on the left. L5-S1: Posterior decompression changes. No disc herniation or central spinal stenosis peer facet arthrosis bilaterally. Mild neural foraminal stenosis bilaterally slightly worse on the left Sacrum: Visualized upper sacrum and SI joints are unremarkable. Visualized retroperitoneal structures are unremarkable. CT/Spine Lumbar WITH Contrast IMPRESSION: 1. Posterior fusion hardware with interbody fusion seen at the L5-S1 level. Negative for hardware failure. 2. At the L5-S1 level, posterior decompression changes without canal stenosis. Mild neural foraminal stenosis bilaterally, slightly worse on the left. 3. At the L4-5 level, facet arthrosis and mild ligamentum flavum thickening contributes to mild narrowing of the lateral recesses. No central spinal stenosis. Mild neural foraminal stenosis bilaterally slightly worse on the left. 4. At the L3-4 level, mild intraforaminal disc bulge on the right. Facet arthrosis and mild ligamentum flavum thickening contributes to mild neural foraminal stenosis on the right. No central spinal stenosis. 5. Additional less prominent spondylotic changes of the remaining lumbar spine, as above One or more dose reduction techniques were used (e.g., Automated exposure control, adjustment of the mA and/or kV according to patient size, use of iterative reconstruction technique). Reading Location: [facility] CC: Dr. Shell Siddiqui MD; Dr. Yandel Mccarthy MD Hook Puller: Signed Normal [facility] White blood cell (WBC) count Ordered By: Mary Garcia on 07-11-2024 WBC (Bld) [#/Vol] 9.1 10*3/uL 4.4-11.0 [facility] aPTT Coag (PPP) [Time]Ordere d By: Mary Garcia on 07-11-2024 aPTT Coag (Bld) [Time] 28.0 s 24.1-36.2 [facility] L/S Spine Bending Flex/Emily 06-09-2024 L/S Spine Bending Flex/Ext [facility] [address] [place] [address] L/S Spine Bending Flex/Ext MR#: [id number] Acct: [id number] Name: MERRICK HODGES Rep #: [id number] : 1945 M 78 From: Benji Dozier PCP: Dr. Shell Siddiqui MD Status: DEP AMB Study: L/S Spine Bending Flex/Ext Date of Exam: 06/09 Exam# [id number] Ordering Dr: Connie Arce [id number] STUDY: X-RAY - LUMBAR SPINE REASON FOR EXAM: Male, 78 years old. back pain -- please do flex/ext TECHNIQUE: XR Spine Lumbar Bending Views Only 2 Views COMPARISON: 04/12/2024 FINDINGS: Normal lumbar lordosis. There is no substantial scoliosis. There is a normal alignment of the vertebrae. There is multilevel endplate spondylosis of the lumbar vertebrae. There is multi-level degenerative disc disease with multi-level disc space narrowing. There are atherosclerotic vascular calcifications. Lumbar spinal fixation hardware at L5-S1. Osseous fusion at this level. No appreciable movement on the flexion or extension views. The soft tissue structures are unremarkable. RAD/L/S Spine Bending Flex/Ext IMPRESSION: Degenerative changes of the spine, as detailed above. Electronically Signed: Benji Camacho MD at 20:48 EST Reading Location ID and State: [id number] / [place] , Service support , CC: SHERLY Bertrand; Dr. Shell Siddiqui MD Hook Puller: Signed Normal [facility] Orthopedic Visit Reporton Orthopedic Visit Report [facility] [address] [place] [address] OFFICE VISIT Date of Service: 06/09/24 MR#: [id number] Acct: [id number] Name: MERRICK HODGES Rep #: [id number] : 1945 Provider: Dr. Yandel Mccarthy MD Age/Sex: 78/M [place] [facility] Status: Signed Intake Vital Signs 04/12/24 10:20 06/09/24 09:21 Height 5 ft 10.08 in 5 ft 10 in Weight: 158 lb BMI 22.6 Intake Visit Reasons: LUMBAR SPINE Chief Complaint: lumbar spine Is patient in pain?: Yes (low back ) Pain scale (1-10): 6 Allergies atorvastatin (From Lipitor) Adverse Reaction (Intermediate, Verified 06/09/24 09:23) Myalgias Medications ???Medication ???Instructions ???Recorded ???Confirmed ???Type amlodipine 5 mg tablet 5 mg PO BID 04/16/17 04/12/24 History fosinopril 20 mg tablet 20 mg PO DAILY 04/16/17 04/12/24 History multivitamin 1 tab PO DAILY 04/16/17 04/12/24 History aspirin 81 mg tablet,delayed 81 mg PO QDAY 01/06/18 04/12/24 History release (Adult Aspirin Regimen) rosuvastatin 10 mg tablet 10 mg PO DAILY 10/17/21 04/12/24 History metoprolol tartrate 50 mg tablet 50 mg PO BID #60 tabs 04/27/22 04/12/24 Rx clopidogrel 75 mg tablet See Rx Instructions .Route 11/29/23 04/12/24 Rx .COMPLEX #90 tabs Have you fallen in the past year?: No PFSH Medical History Wears hearing aid Wears glasses Wears dentures Arthritis High cholesterol Dietary restriction Diverticulosis Abdominal bloating Former smoker Leg cramps History of pain when walking History of echocardiogram History of stress test Cardiology follow-up encounter History of irregular heartbeat NSVT (nonsustained ventricular tachycardia) Type 2 diabetes mellitus Essential hypertension Peripheral arterial disease History of non-ST elevation myocardial infarction (NSTEMI) 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 Lumbar stenosis Chronic back pain Overweight (BMI 25.0-29.9) Hyperlipidemia Hypertension Surgical History H/O bilateral cataract extraction Spinal cord stimulator status History of back surgery S/P femoral-femoral bypass surgery Stented coronary artery ( 09/21/03) History of left heart catheterization ( 04/02/22) Family History Father , of cancer Myocardial infarction, Onset Age: 70 Cancer kidney Mother , age 66 Bleeding in brain due to brain aneurysm Brother Myocardial infarction, Onset Age: 62 CAD (coronary artery disease) Social History household members: spouse current occupational status: employed 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 Yandel Mccarthy MD 06/09/24 0919. Part of today???s visit was documented by [ ], acting as scribe. MERRICK HODGES is a 78 year old M here today for lumbar spine pain. Pt. advises he has been experiencing back pain for several years since his bypass surgery in 1998. He had been experiencing left leg pain since the bypass and has had 3 lumbar surgeries since then which were not helpful with his leg pain. He was seen by a vascular surgeon who cleaned out his femoral artery and he hasn't had left leg pain since. He continued to have low back pain and was seen by Dr. Boswell who referred him Zakery who recommended a spine stimulator. He had the spine stimulator for a year and a half but it was not helpful. He had the spine stimulator removed back in 2023 and had a lumbar spine steroid injection about 2 months ago which was helpful for a couple days. The leads from the stimulator were left behind but the battery pack was removed. He is unsure if he is able to have a MRI. He describes his pain as a constant dull pain with intermittent sharp twinges. The pain starts on the right side of his low back and moves across to the left the longer he is active. 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 He denies numbness, tingling or radiculopathy. Ortho Exam General General: Yes no acute distress Neurologic: Yes alert and Yes oriented x3 Spine SPINE TESTING CERVICAL THORACIC LUMBAR Musculoskeletal Strength 0=absent - 5=normal Details: Neurological exam of the lower extremities shows 5x (more content not included)... Normal [facility] 05-15-2024 [facility] Telephone (UCWSTR) ----- MERRICK HODGES ([id number]) 1945 M Date Time Provider Department 05/15/24 [place] [facility] During your visit today, we recorded the following information about you: Ok Nicolas PA-C 05/15/2024 10:14 AM Signed Please call and let patient know he was negative for pneumonia on his chest x-ray. He can discontinue the doxycycline. Follow-up with PCP if symptoms or not improving. Kaya oGmez LPN 05/15/2024 2:05 PM Signed Pt notified of results and provider message. Pt voiced understanding. Kaya Gomez LPN Allergies As of Date: 05/15/2024 (No Known Allergies) Date Reviewed: 05/13/2024 Reviewed by: Roseann Randolph MA - Fully Assessed Reason for Visit: Results [95] Prescriptions as of 05/15/2024 - clopidogrel (PLAVIX) 75 mg tablet Take 75 mg by mouth once daily. - doxycycline (VIBRA-TABS) 100 mg tablet Take 1 tablet by mouth two times a day for 7 days. - albuterol HFA (VENTOLIN HFA) 90 mcg/actuation inhaler Inhale 2 Puffs as instructed every 4 hours as needed for wheezing/shortness of breath. - benzonatate (TESSALON PERLE) 100 mg capsule Take 2 capsules by mouth three times a day as needed. - cilostazol (PLETAL) 100 mg tablet Take 100 mg by mouth twice daily. - aspirin, enteric coated (ASPIRIN, ENTERIC COATED) 81 mg EC tablet Take 81 mg by mouth once daily. - gabapentin (NEURONTIN) 300 mg capsule - rosuvastatin (CRESTOR) 10 mg tablet Take 10 mg by mouth once daily. - atorvastatin (LIPITOR) 40 mg tablet Take 1 tablet by mouth once daily. - metoprolol tartrate, short acting, (LOPRESSOR) 25 mg tablet Take 1 tablet by mouth once daily. - amLODIPine (NORVASC) 5 mg tablet Take 1 tablet by mouth twice daily. - Fosinopril Sodium 20 mg ORAL tablet Take one(1) tablet daily. - colestipol 1 gram ORAL tablet - multivitamins(DAILY VITAMIN TAB) Take one(1) tablet daily. - ASPIRIN 325 MG TAB Take one (1) tablet daily . Problem List As Of Date 05/15/2024 Noted Resolved BENIGN AMANDA GI TRACT NEC/NOS [D13.99] 04/12/2006 DIVERTICULOSIS OF COLON W/O BLEED [K57.30] 04/12/2006 INT HEMORRHOID W/O COMPL [K64.8] 04/12/2006 Cellulitis and abscess of unspecified site [L03*04/14/2010 ALTHEA (obstructive sleep apnea) [G47.33] 09/11/2015 HTN (hypertension) [I10] 09/11/2015 PVD (peripheral vascular disease) (HCC) [I73.9] Carotid stenosis [I65.29] Encounter Status:Closed by KAYA GOMEZ on 05/15/24 Normal [facility] XR CHEST 2V FRONTAL/LATon XR CHEST 2V FRONTAL/LAT * * *Final Report* * * DATE OF EXAM: May 15 2024 9:50AM WOX 5291 - XR CHEST 2V FRONTAL/LAT / PROCEDURE REASON: Acute cough * * * * Physician Interpretation * * * * EXAMINATION: CHEST RADIOGRAPH (2 VIEW FRONTAL and LATERAL) CLINICAL HISTORY: Acute cough MQ: XC2_6 EXAM DATE/TIME: 05/15/2024 9:50 AM COMPARISON: No relevant prior studies available. RESULT: Lines, tubes, and devices: Spinal stimulator wires over the mid thoracic spine Lungs and pleura: No consolidation. No lung mass. No pleural effusion. No pneumothorax. Cardiomediastinal silhouette: Normal cardiomediastinal silhouette. Bones and soft tissues: Unremarkable. IMPRESSION: No acute radiographic abnormality. Hook Puller: SILVA Transcribe Date/Time: May 15 2024 9:56A Dictated by : ANTHONY JONES MD This examination was interpreted and the report reviewed and electronically signed by: ANTHONY JONES MD on May 15 2024 9:57AM EST [id number] Normal [facility] XR Chest PA and Lateralon IMPRESSION: No acute radiographic abnormality. Hook Puller: [facility] Transcribe Date/Time: May 15 2024 9:56A Dictated by : ANTHONY JONES MD This examination was interpreted and the report reviewed and electronically signed by: ANTHONY JONES MD on May 15 2024 9:57AM EST DIVISION OF RADIOLOGY * * *Final Report* * * DATE OF EXAM: May 15 2024 9:50AM WOX 5291 - XR CHEST 2V FRONTAL/LAT / PROCEDURE REASON: Acute cough * * * * Physician Interpretation * * * * EXAMINATION: CHEST RADIOGRAPH (2 VIEW FRONTAL & LATERAL) CLINICAL HISTORY: Acute cough MQ: XC2_6 EXAM DATE/TIME: 05/15/2024 9:50 AM COMPARISON: No relevant prior studies available. RESULT: Lines, tubes, and devices: Spinal stimulator wires over the mid thoracic spine Lungs and pleura: No consolidation. No lung mass. No pleural effusion. No pneumothorax. Cardiomediastinal silhouette: Normal cardiomediastinal silhouette. Bones and soft tissues: Unremarkable. DIVISION OF RADIOLOGY Provider, [facility] - 05/15/2024 * * *Final Report* * * DATE OF EXAM: May 15 2024 9:50AM WOX 5291 - XR CHEST 2V FRONTAL/LAT / PROCEDURE REASON: Acute cough * * * * Physician Interpretation * * * * EXAMINATION: CHEST RADIOGRAPH (2 VIEW FRONTAL & LATERAL) CLINICAL HISTORY: Acute cough MQ: XC2_6 EXAM DATE/TIME: 05/15/2024 9:50 AM COMPARISON: No relevant prior studies available. RESULT: Lines, tubes, and devices: Spinal stimulator wires over the mid thoracic spine Lungs and pleura: No consolidation. No lung mass. No pleural effusion. No pneumothorax. Cardiomediastinal silhouette: Normal cardiomediastinal silhouette. Bones and soft tissues: Unremarkable. IMPRESSION IMPRESSION: No acute radiographic abnormality. Hook Puller: PSCThomas Transcribe Date/Time: May 15 2024 9:56A Dictated by : ANTHONY JONES MD This examination was interpreted and the report reviewed and electronically signed by: ANTHONY JONES MD on May 15 2024 9:57AM EST [facility] Radiology Study observation (narrative) [facility] XR Chest PA and LateralOrder ed By: [facility] Provider on 05-15-2024 [facility] CNPNon 05-14-2024 CNPN Telephone (UCWSTR) ----- MERRICK HODGES ([id number]) 1945 M Date Time Provider Department 05/14/24 [place] [facility] During your visit today, we recorded the following information about you: Ok Nicolas PA-C 05/14/2024 8:04 AM Addendum Please call and let patient know he was positive for COVID. He is out of the window for antiviral treatment at this point. I would recommend still doing the chest x-ray Wednesday and continuing doxycycline until the xray is back. Will call on results later. Roseann Randolph MA 05/14/2024 8:28 AM Signed Left message for pt to call back. QUYNH Moreno Melissa, MA 05/14/2024 9:23 AM Signed Patient given results and verbalized understanding of instructions given. Britta García MA Allergies As of Date: 05/14/2024 (No Known Allergies) Date Reviewed: 05/13/2024 Reviewed by: Roseann Randolph MA - Fully Assessed Reason for Visit: Results [95] Prescriptions as of 05/14/2024 - clopidogrel (PLAVIX) 75 mg tablet Take 75 mg by mouth once daily. - doxycycline (VIBRA-TABS) 100 mg tablet Take 1 tablet by mouth two times a day for 7 days. - albuterol HFA (VENTOLIN HFA) 90 mcg/actuation inhaler Inhale 2 Puffs as instructed every 4 hours as needed for wheezing/shortness of breath. - benzonatate (TESSALON PERLE) 100 mg capsule Take 2 capsules by mouth three times a day as needed. - cilostazol (PLETAL) 100 mg tablet Take 100 mg by mouth twice daily. - aspirin, enteric coated (ASPIRIN, ENTERIC COATED) 81 mg EC tablet Take 81 mg by mouth once daily. - gabapentin (NEURONTIN) 300 mg capsule - rosuvastatin (CRESTOR) 10 mg tablet Take 10 mg by mouth once daily. - atorvastatin (LIPITOR) 40 mg tablet Take 1 tablet by mouth once daily. - metoprolol tartrate, short acting, (LOPRESSOR) 25 mg tablet Take 1 tablet by mouth once daily. - amLODIPine (NORVASC) 5 mg tablet Take 1 tablet by mouth twice daily. - Fosinopril Sodium 20 mg ORAL tablet Take one(1) tablet daily. - colestipol 1 gram ORAL tablet - multivitamins(DAILY VITAMIN TAB) Take one(1) tablet daily. - ASPIRIN 325 MG TAB Take one (1) tablet daily . Problem List As Of Date 05/14/2024 Noted Resolved BENIGN AMANDA GI TRACT NEC/NOS [D13.99] 04/12/2006 DIVERTICULOSIS OF COLON W/O BLEED [K57.30] 04/12/2006 INT HEMORRHOID W/O COMPL [K64.8] 04/12/2006 Cellulitis and abscess of unspecified site [L03*04/14/2010 ALTHEA (obstructive sleep apnea) [G47.33] 09/11/2015 HTN (hypertension) [I10] 09/11/2015 PVD (peripheral vascular disease) ([facility]) [I73.9] Carotid stenosis [I65.29] Encounter Status:Closed by BRITTA GARCÍA on 05/14/24 [facility] 05-13-2024 CNOV Office Visit (WSTR ) ----- MERRICK HODGES ([id number]) 1945 M Date Time Provider Department 05/13/24 1:00 PM [facility] During your visit today, we recorded the following information about you: Temperature Pulse Respiration Blood pressure 99.1 degrees 94/minute 20/minute 110/70 Weight 74.2 kg Ok Nicolas, HERBERT 05/13/2024 2:13 PM Signed This note was created using [employer]. Subjective Merrick Hodges is a 78 year old male. HPI Presents with cough and chest congestion over the past 5 days. He has had decreased appetite as well. He is drinking fluids and urinating normally. No fever that he knows of. No shortness of breath. He is got body aches and chills. No vomiting or diarrhea. No home COVID test done. Denies history of asthma or COPD. Review of Systems Constitutional: Positive for appetite change and fatigue. Negative for fever. HENT: Positive for congestion. Negative for sinus pressure and sinus pain. Respiratory: Positive for cough. Negative for shortness of breath and wheezing. Cardiovascular: Negative. Gastrointestinal: Negative. Genitourinary: Negative. Musculoskeletal: Positive for myalgias. Neurological: Positive for headaches. All other systems reviewed and are negative. PAST MEDICAL HISTORY Diagnosis Date Benign neoplasm of colon Carotid stenosis Diverticulosis of colon (without mention of hemorrhage) Essential hypertension, benign Internal hemorrhoids without mention of complication Obstructive sleep apnea PVD (peripheral vascular disease) (HCC) Current Outpatient Medications Medication Sig Dispense Refill clopidogrel (PLAVIX) 75 mg tablet Take 75 mg by mouth once daily. aspirin, enteric coated (ASPIRIN, ENTERIC COATED) 81 mg EC tablet Take 81 mg by mouth once daily. rosuvastatin (CRESTOR) 10 mg tablet Take 10 mg by mouth once daily. metoprolol tartrate, short acting, (LOPRESSOR) 25 mg tablet Take 1 tablet by mouth once daily. amLODIPine (NORVASC) 5 mg tablet Take 1 tablet by mouth twice daily. Fosinopril Sodium 20 mg ORAL tablet Take one(1) tablet daily. 0 multivitamins(DAILY VITAMIN TAB) Take one(1) tablet daily. 0 doxycycline (VIBRA-TABS) 100 mg tablet Take 1 tablet by mouth two times a day for 7 days. 14 tablet 0 albuterol HFA (VENTOLIN HFA) 90 mcg/actuation inhaler Inhale 2 Puffs as instructed every 4 hours as needed for wheezing/shortness of breath. 1 Each 0 benzonatate (TESSALON PERLE) 100 mg capsule Take 2 capsules by mouth three times a day as needed. 30 capsule 0 cilostazol (PLETAL) 100 mg tablet Take 100 mg by mouth twice daily. (Patient not taking: Reported on 05/13/2024) gabapentin (NEURONTIN) 300 mg capsule (Patient not taking: Reported on 05/13/2024) atorvastatin (LIPITOR) 40 mg tablet Take 1 tablet by mouth once daily. (Patient not taking: Reported on 01/28/2018 ) 0 colestipol 1 gram ORAL tablet (Patient not taking: Reported on 05/13/2024) 0 ASPIRIN 325 MG TAB Take one (1) tablet daily . (Patient not taking: Reported on 05/13/2024) 0 No current facility-administered medications for this visit. PAST SURGICAL HISTORY Procedure Laterality Date BYP OTH/THN VEIN FEMORAL-POPLITEAL Bypass graft fem-pop COLONOSCOPY FLX DX W/COLLJ SPEC WHEN PFRMD 04/12/2006 Colonoscopy LOW BACK DISK SURGERY 2007 No family history on file. Social History Tobacco Use Smoking status: Never Smokeless tobacco: Never Substance Use Topics Alcohol use: No Drug use: No Objective BP 110/70 Pulse 94 Temp 37.3 ?C (99.1 ?F) Resp 20 Wt 74.2 kg (163 lb 9.3 oz) SpO2 97% BMI 23.47 kg/m? Physical Exam Vitals reviewed. Constitutional: Appearance: Normal appearance. HENT: Head: Normocephalic and atraumatic. Right Ear: Tympanic membrane, ear canal and external ear normal. Left Ear: Tympanic membrane, ear canal and external ear normal. Nose: Congestion present. Mouth/Throat: Mouth: Mucous membranes are moist. Pharynx: Oropharynx is clear. Cardiovascular: Rate and Rhythm: Normal rate and regular rhythm. Heart sounds: Normal heart sounds. Pulmonary: Effort: Pulmonary effort is normal. Breath sounds: Normal breath sounds. Musculoskeletal: Cervical back: Neck supple. Lymphadenopathy: Cervical: No cervical adenopathy. Skin: General: Skin is warm and dry. Neurological: Mental Status: He is alert. Assessment and Plan ASSESSMENT/PLAN: 1. Acute cough - ICD9: 786.2, ICD10: R05.1 I will cover with doxycycline, albuterol and Tessalon. Close for the weekend, patient will return Wednesday for x-ray. If there is a pneumonia would add Augmentin. Discussed red flags for ER care. Patient and family member with him agreeable with plan. - XR CHEST 2V FRONTAL/LAT - COVID AND INFLUENZA A/B AND RSV PCR, ROUTINE Ok Nicolas PA-C Allergies As of Date: 05/13/2024 (No Known Allergies) Date Reviewed: (more content not included)... Normal [facility] COVID AND INFLUENZA A/B AND RSV PCR, ROUTINEon 05-13-2024 SARS-CoV-2 (COVID-19) RNA LEON+probe Ql (Unsp spec) SARS-COV-2 (AGENT OF COVID-19) RNA: Detected INFLUENZA A RNA: Not detected INFLUENZA B RNA: Not detected RESPIRATORY SYNCYTIAL VIRUS (RSV) RNA: Not detected Abnormal [facility] Comment on above: Performed By: #### C VFLRS #### [facility] CLIA [id number] [address] [place] [address] [place] [facility] Spine Lumbar WITH Contraston 05-09-2024 Spine Lumbar WITH Contrast [facility] Imaging Services [address] [place] [address] Spine Lumbar WITH Contrast MR#: [id number] Acct: [id number] Name: HODGESMERRICK Rep #: [id number] : 1945 78 From: Raad Pinto MD PCP: Dr. Shell Siddiqui MD Status: REG CLI Study: Spine Lumbar WITH Contrast Date of Exam: 05/09 Exam# [id number] Ordering Dr: Juani Rivas [id number] STUDY: CT LUMBAR SPINE WITH CONTRAST REASON FOR EXAM: Male, 78 years old. LUMBAR DEGENERATIVE DISC DISEASE RADIATION DOSAGE (If Supplied By Facility): CTDIvol = ( 12.48 ) mGy, DLP = ( 450.08 ) mGycm TECHNIQUE: The patient was scanned in a multi detector CT scanner. High resolution transaxial imaging was performed following the intravenous administration of IV 100mL Isovue-370. Images were obtained from T12 to S1. Sagittal and coronal images were reconstructed. Individualized dose optimization techniques were used for this CT. COMPARISON: None FINDINGS: Normal lumbar lordosis. Mild dextro scoliosis centered at L3. Normal vertebrae of the lumbar spine. L1-2: Mild bilateral facet hypertrophy and ligament flavum hypertrophy. 2 mm retrolisthesis of L1 on L2 with a mild bilobed disc protrusion produces moderate spinal stenosis and moderate bilateral neural foraminal stenosis. L2-3: Mild bilateral facet hypertrophy and ligament flavum hypertrophy. Mild bilobed disc osteophyte complex produces mild spinal stenosis and mild bilateral neural foraminal stenosis. L3-4: Mild bilateral facet hypertrophy and ligament flavum hypertrophy. No disc protrusion, spinal stenosis, or neural foraminal stenosis. L4-5: Normal endplates. Normal disc height and morphology. Normal bilateral facet joints. Normal central canal and bilateral lateral recesses. Normal bilateral intervertebral neural foramina. L5-S1: Status post discectomy, interbody fusion with bony bridging, and transpedicular fixation with anatomic alignment with no spinal stenosis or neural foraminal stenosis. Normal visualized paraspinous soft tissue structures. CT/Spine Lumbar WITH Contrast IMPRESSION: Postsurgical changes, dextroscoliosis, and degenerative disc disease as described above. Electronically Signed: Raad Pinto MD at 13:43 EST , CC: Juani Rivas; Dr. Shell Siddiqui MD Hook Puller: Signed Normal [facility] Comprehensive Metabolic Prof [facility] 05-03-2024 Albumin [Mass/Vol] 3.7 g/dL Normal 3.2-5.0 [facility] Comment on above: Performed By: #### L 500.4050 ####[facility] [address] [place], [address] Albumin/Globulin [Mass ratio] 1.1 {ratio} Normal 0.9-2.4 [facility] Comment on above: Performed By: #### L 500.4050 ####[facility] [address] [place], [address] ALK P 77 U/L Normal 45-117 [facility] Comment on above: Performed By: #### L 500.4050 ####[facility] [address] [place], [address] ALT [Catalytic activity/Vol] 40 U/L Normal 16-61 [facility] Comment on above: Performed By: #### L 500.4050 ####[facility] [address] [place], [address] AST [Catalytic activity/Vol] 31 U/L Normal 15-37 [facility] Comment on above: Performed By: #### L 500.4050 ####[facility] [address] [place], [address] Bilirubin [Mass/Vol] 0.50 mg/dL Normal 0.20-1.00 [facility] Comment on above: Result Comment: For patients on eltrombopag therapy, use of Dimension [place] TBIL is not recommended. Performed By: #### L 500.4050 ####[facility] [address] [place], [address] BUN/CRE 19.5 RATIO Normal 10-20 [facility] Comment on above: Performed By: #### L 500.4050 ####[facility] [address] [place], [address] CA,Total 8.9 mg/dL Normal 8.5-10.1 [facility] Comment on above: Performed By: #### L 500.4050 ####[facility] [address] [place], [address] Chloride [Moles/Vol] 111 mmol/L High 98-107 [facility] Comment on above: Performed By: #### L 500.4050 ####[facility] [address] [place], [address] CO2 [Moles/Vol] 25.0 mmol/L Normal 21.0-32.0 [facility] Comment on above: Performed By: #### L 500.4050 ####[facility] [address] [place], [address] Creatinine [Mass/Vol] 0.98 mg/dL Normal 0.70-1.30 [facility] Comment on above: Result Comment: The validity of the calculated GFR GFRAA in patients over 70 years has not been determined. Clinical correlation is essential. Performed By: #### L 500.4050 ####[facility] [address] [place], [address] EST GFR - AA 96 mL/min Normal >60 [facility] Comment on above: Result Comment: Afri can Mexican GFR Calc Performed By: #### L 500.4050 ####[facility] [address] [place], [address] GAP 5 Normal 5-15 [facility] Comment on above: Performed By: #### L 500.4050 ####[facility] [address] [place], [address] GFR/1.73 sq M.predicted among non-blacks MDRD (S/P/Bld) [Vol rate/Area] 79 mL/min/{1.73_m2} Normal >60 [facility] Comment on above: Result Comment: Non- GFR Calc Performed By: #### L 500.4050 ####[facility] [address] [place], [address] Globulin (S) [Mass/Vol] 3.4 g/dL Normal 2.2-4.2 [facility] Comment on above: Performed By: #### L 500.4050 ####[facility] [address] [place], [address] Glucose [Mass/Vol] 150 mg/dL High 74-106 [facility] Comment on above: Result Comment: Fast ing Glucose result greater than or equal to 126 mg/dL suggests DIABETES MELLITUS per A.D.A. criteria. Performed By: #### L 500.4050 ####[facility] [address] [place], [address] Potassium [Moles/Vol] 4.0 mmol/L Normal 3.5-5.1 [facility] Comment on above: Performed By: #### L 500.4050 ####[facility] [address] [place], [address] Sodium [Moles/Vol] 140 mmol/L Normal 136-145 [facility] Comment on above: Performed By: #### L 500.4050 ####[facility] [address] [place], [address] T PROT 7.1 g/dL Normal 6.4-8.2 [facility] Comment on above: Performed By: #### L 500.4050 ####[facility] [address] [place], [address] Urea nitrogen [Mass/Vol] 19 mg/dL High 7-18 [facility] Comment on above: Performed By: #### L 500.4050 ####[facility] [address] [place], [address] Thin prep Papanicolaou smear with manual screeningOrdered By: Alexandr Hopkins on 08-26-2023 Thin prep Papanicolaou smear with manual screening 110 mg/dL 74-106 [facility] Comment on above: MANAGEMENT OF PATIEN T CARE PER NURSING PROTOCOL Absolute lymphocyte countOrd ered By: Franchesca Moreira on 08-24-2023 Lymphocytes Auto (Unsp spec) [#/Vol] 2.00 10*3/uL 0.83-4.51 [facility] Automated lymphocyte count a s percentage of total leukocytesOrdered By: Franchesca Moreira on 08-24-2023 Lymphocytes/100 WBC Auto (Unsp spec) 24.3 % 19-41 [facility] Basophil percentageOrdered B y: Franchesca Moreira on 08-24-2023 Basophils/100 WBC (Bld) 0.9 % 0-1 [facility] Chloride [Moles/Vol] 110 mmol/L 98-107 [facility] Eosinophils/100 WBC (Bld) 3.6 % 0-5 [facility] Glucose [Mass/Vol] 143 mg/dL 74-106 [facility] Comment on above: Fasting Glucose resu lt greater than or equal to 126 mg/dL suggests DIABETES MELLITUS per A.D.A. criteria. Hemoglobin (Bld) [Mass/Vol] 15.4 g/dL 13.0-16.5 [facility] Monocytes/100 WBC (Bld) 10.4 % 0-10 [facility] Neutrophils (Bld) [#/Vol] 5.0 10*3/uL 2.0-7.7 [facility] Neutrophils/100 WBC (Bld) 60.6 % 47-70 [facility] Potassium [Moles/Vol] 4.5 mmol/L 3.5-5.1 [facility] Sodium [Moles/Vol] 140 mmol/L 136-145 [facility] WBC (Bld) [#/Vol] 8.2 10*3/uL 4.4-11.0 [facility] Determination of erythrocyte mean corpuscular volume (MCV)Ordered By: Franchesca Moreira on 08-24-2023 MCV (RBC) [Entitic vol] 92.8 fL 80-94 [facility] Erythrocyte distribution wid th ratioOrdered By: Franchesca Moreira on 08-24-2023 Erythrocyte distribution width (RBC) [Ratio] 13.7 % 11.6-14.6 [facility] Erythrocyte distribution wid th standard deviationOrdered By: Franchesca Moreira on 08-24-2023 Erythrocyte distribution width (RBC) [Entitic vol] 46.6 fL 35.1-43.9 [facility] Hematocrit Auto (Bld) [Volum e fraction]Ordered By: Franchesca Moreira on 08-24-2023 Hematocrit (Bld) [Volume fraction] 47.4 % 40-54 [facility] Immature granulocytes/100 WB C Auto (Bld)Ordered By: Franchesca Moreira on 08-24-2023 Immature granulocytes/100 WBC (Bld) 0.200 % 0.0-0.9 [facility] Comment on above: IG% - Immature Granu locytes (promyelocytes, myelocytes and metamyelocytes) > 1% indicates that a LEFT SHIFT is Present. Laboratory - Chemistry and C hemistry - challengeOrdered By: Franchesca Moreira on 08-24-2023 CO2 [Moles/Vol] 26.0 mmol/L 21.0-32.0 [facility] Urea nitrogen/Creatinine [Mass ratio] 15.8 mg/mg 10-20 [facility] Laboratory - Hematology and Cell countsOrdered By: Franchesca Moreira on 08-24-2023 MCH (RBC) [Entitic mass] 30.1 pg 27.0-32.0 [facility] MCHC (RBC) [Mass/Vol] 32.5 g/dL 32-36 [facility] Nucleated RBC/100 WBC (Bld) [Ratio] 0 % 0-5 [facility] Platelet mean volume (Bld) [Entitic vol] 9.4 fL 6.2-12.0 [facility] Platelets (Bld) [#/Vol] 233 10*3/uL 150-450 [facility] No Panel InformationOrdered By: Franchesca Moreira on 08-24-2023 Estimated GFR (MDRD) Amer 80 mL/min >60 [facility] Comment on above: GFR Calc Estimated GFR (MDRD) Non-Af Amer 66 mL/min >60 [facility] Comment on above: Non- GFR Calc Vitamin D 25-Hydroxy 27.4 ng/mL [facility] Comment on above: Vitamin D 25(OH) Sta tus Range Deficiency <20 ng/mL (50nmol/L) Insufficiency 20 - 30 ng/mL (50 - 75 nmol/L) Sufficiency 30 - 100 ng/mL (75 - 250 nmol/L) Toxicity >100 ng/mL (>250 nmol/L) RBC Auto (Bld) [#/Vol]Ordere d By: Franchesca Moreira on 08-24-2023 RBC (Bld) [#/Vol] 5.11 10*6/uL 4.6-6.2 [facility] Serum or plasma calcium heladio urement (mass/volume)Ordered By: Franchesca Moreira on 08-24-2023 Calcium [Mass/Vol] 9.3 mg/dL 8.5-10.1 [facility] Serum or plasma creatinine m easurement (mass/volume)Ordered By: Franchesca Moreira on 08-24-2023 Creatinine [Mass/Vol] 1.14 mg/dL 0.70-1.30 [facility] Comment on above: The validity of the calculated GFR & GFRAA in patients over 70 years has not been determined. Clinical correlation is essential. Serum or plasma thyroid stim ulating hormone (TSH) measurement (units/volume)Ordered By: Franchesca Moreira on 08-24-2023 TSH Qn 0.94 uIU/mL 0.358-3.74 [facility] Serum or plasma urea nitroge n measurement (mass/volume)Ordered By: Farnchesca Moreira on 08-24-2023 Urea nitrogen [Mass/Vol] 18 mg/dL 7-18 [facility] Thin prep Papanicolaou smear with manual screeningOrdered By: Franchesca Moreira on 08-24-2023 Thin prep Papanicolaou smear with manual screening 4 5-15 [facility] Laboratory - Hematology and Cell countson 05-10-2023 HbA1c (Bld) [Mass fraction] 5.9 % 4.2-6.3 [facility] Basophil percentageOrdered B y: Zi Richard on 04-14-2023 Creatinine [Mass/Vol] 1.4 mg/dL 0.70-1.30 [facility] Laboratory - Chemistry and C hemistry - challengeOrdered By: Zi Richard on 04-14-2023 GFR/1.73 sq M.predicted among non-blacks MDRD (S/P/Bld) [Vol rate/Area] 54.0000 mL/min/{1.73_m2} >60 [facility] No Panel InformationOrdered By: Zi Richard on 02-17-2023 Endomysial IgA Antibody Negative Negative [facility] Serum IgA measurement (units /volume)Ordered By: Zi Richard on 02-17-2023 IgA Qn (S) 340 mg/dL 61-437 [facility] Comment on above: Performed at: [id number] [place], [place] [id number] Director: Zi Jain PhD, Phone: [phone] Serum or plasma C reactive p rotein measurement (mass/volume)Ordered By: Zi Richard on 02-17-2023 CRP [Mass/Vol] mg/L 0.0-3.0 [facility] Comment on above: C-Reactive Protein ( CRP) provides useful information for thediagnosis, therapy and monitoring of inflammatory processesand associated diseases. For the evaluation of Relative Riskfor Cardiovascular Disease, a High Sensitivity CRP (HSCRP)should be ordered. Serum tissue transglutaminas e IgA antibody assay (units/volume)Ordered By: Zi Richard on 02-17-2023 tTG IgA Qn (S) <2 U/mL 0-3 [facility] Comment on above: Negative 0 - 3 Weak Positive 4 - 10 Positive >10 Tissue Transglutaminase (tTG) has been identified as the endomysial antigen. Studies have demonstr- ated that endomysial IgA antibodies have over 99% specificity for gluten sensitive enteropathy. Laboratory - Hematology and Cell countson 01-13-2023 HbA1c (Bld) [Mass fraction] 6.0 % 4.2-6.3 [facility] Culture, urineOrdered By: Dr Deven Siddiqui on 10-15-2022 Bacteria identified Cx Nom (U) Culture exhibits no growth. [facility] Absolute lymphocyte countOrd ered By: Dr. Siddiqui on 10-13-2022 Lymphocytes Auto (Unsp spec) [#/Vol] 1.69 10*3/uL 0.83-4.51 [facility] Basophil percentageOrdered B y: Dr. Siddiqui on 10-13-2022 Basophil percentage 0 SEEN /hpf 0-5 [facility] Basophils/100 WBC (Bld) 0.7 % 0-1 [facility] Bilirubin [Mass/Vol] 0.40 mg/dL 0.20-1.00 [facility] Comment on above: For patients on eltr ombopag therapy, use of Dimension [place] TBIL is not recommended. Chloride [Moles/Vol] 109 mmol/L 98-107 [facility] Cholesterol [Mass/Vol] 122 mg/dL <200 [facility] Comment on above: <200 mg/dL Desirable 200-240 mg/dL Borderline >240 mg/dL High Risk Eosinophils/100 WBC (Bld) 2.4 % 0-5 [facility] Glucose [Mass/Vol] 122 mg/dL 74-106 [facility] Comment on above: Fasting Glucose resu lt from 100 to 125 mg/dL suggests IMPAIRED HOMEOSTASIS per A.D.A. criteria. Neutrophils (Bld) [#/Vol] 4.4 10*3/uL 2.0-7.7 [facility] Neutrophils/100 WBC (Bld) 62.8 % 47-70 [facility] Potassium [Moles/Vol] 4.6 mmol/L 3.5-5.1 [facility] Protein [Mass/Vol] 7.5 g/dL 6.4-8.2 [facility] Sodium [Moles/Vol] 138 mmol/L 136-145 [facility] Triglyceride [Mass/Vol] 123 mg/dL <199 [facility] Comment on above: The drugs N-Acetylcy steine and Metamizole may falsely depress this assay.Serum Triglycerides Reference Interval Normal <150 mg/dL Borderline high 150 - 199 mg/dL High 200 - 499 mg/dL Very High > or = 500 mg/dL WBC (Bld) [#/Vol] 7.0 10*3/uL 4.4-11.0 [facility] Bilirubin Test strip Ql (U)O rdered By: Dr. Siddiqui on 10-13-2022 Bilirubin Ql (U) Negative Negative [facility] Blood erythrocytes count (nu mber/volume)Ordered By: Dr. Siddiqui on 10-13-2022 RBC (Bld) [#/Vol] 5.00 10*6/uL 4.6-6.2 [facility] Blood hemoglobin measurement (mass/volume)Ordered By: Dr. Siddiqui on 10-13-2022 Hemoglobin (Bld) [Mass/Vol] 15.0 g/dL 13.0-16.5 [facility] Blood lymphocytes/100 leukoc ytesOrdered By: Dr. Siddiqui on 10-13-2022 Lymphocytes/100 WBC (Bld) 24.1 % 19-41 [facility] Blood monocytes/100 leukocyt esOrdered By: Dr. Siddiqui on 10-13-2022 Monocytes/100 WBC (Bld) 9.7 % 0-10 [facility] Blood platelet mean volumeOr dered By: Dr. Siddiqui on 10-13-2022 Platelet mean volume (Bld) [Entitic vol] 10.1 fL 6.2-12.0 [facility] Culture, urineOrdered By: Gregg Siddiqui on 10-13-2022 Bacteria identified Cx Nom (U) Culture exhibits no growth. [facility] Determination of erythrocyte mean corpuscular volume (MCV)Ordered By: Dr. Siddiqui on 10-13-2022 MCV (RBC) [Entitic vol] 93.2 fL 80-94 [facility] Direct bilirubinOrdered By: Dr. Siddiqui on 10-13-2022 Bilirubin.direct [Mass/Vol] 0.14 mg/dL 0.00-0.30 [facility] Hematocrit Auto (Bld) [Volum e fraction]Ordered By: Dr. Siddiqui on 10-13-2022 Hematocrit (Bld) [Volume fraction] 46.6 % 40-54 [facility] Ketones Test strip Ql (U)Ord ered By: Dr. Siddiqui on 10-13-2022 Ketones Ql (U) 5 mg/dl Negative [facility] Laboratory - Chemistry and C hemistry - challengeOrdered By: Dr. Siddiqui on 10-13-2022 ALP [Catalytic activity/Vol] 69 U/L 45-117 [facility] ALT [Catalytic activity/Vol] 40 U/L 16-61 [facility] CO2 [Moles/Vol] 24.0 mmol/L 21.0-32.0 [facility] Globulin (S) [Mass/Vol] 3.6 g/dL 2.2-4.2 [facility] Urea nitrogen/Creatinine [Mass ratio] 18.7 mg/mg 10-20 [facility] Laboratory - Hematology and Cell countsOrdered By: Dr. Siddiqui on 10-13-2022 Erythrocyte distribution width (RBC) [Entitic vol] 44.8 fL 35.1-43.9 [facility] Erythrocyte distribution width (RBC) [Ratio] 13.2 % 11.6-14.6 [facility] Immature granulocytes/100 WBC (Bld) 0.300 % 0.0-0.9 [facility] Comment on above: IG% - Immature Granu locytes (promyelocytes, myelocytes and metamyelocytes) > 1% indicates that a LEFT SHIFT is Present. MCH (RBC) [Entitic mass] 30.0 pg 27.0-32.0 [facility] Nucleated RBC/100 WBC (Bld) [Ratio] 0 % 0-5 [facility] Laboratory - Hematology and Cell countson 10-13-2022 HbA1c (Bld) [Mass fraction] 5.9 % 4.2-6.3 [facility] MCHC Auto (RBC) [Mass/Vol]Or dered By: Dr. Siddiqui on 10-13-2022 MCHC (RBC) [Mass/Vol] 32.2 g/dL 32-36 [facility] Mucus LM Ql (Urine sed)Order ed By: Dr. Siddiqui on 10-13-2022 Mucus Ql (Urine sed) 0 SEEN /hpf [facility] Nitrite Test strip Ql (U)Ord ered By: Dr. Siddiqui on 10-13-2022 Nitrite Ql (U) Negative Negative [facility] No Panel InformationOrdered By: Dr. Siddiqui on 10-13-2022 Estimated GFR (MDRD) Amer 98 mL/min >60 [facility] Comment on above: GFR Calc Estimated GFR (MDRD) Non-Af Amer 81 mL/min >60 [facility] Comment on above: Non- GFR Calc Prostate Specific Antigen Total 3.78 ng/mL 0.0-4.0 [facility] Comment on above: This test was perfor med using the TPSA assay method [facility]. Values obtained with differentassay methods cannot be used interchangably.When changing PSA assays in the course of monitoring apatient, additional sequential testing should be carriedout to confirm baseline values. Thyroid Stimulating Hormone (TSH) 1.40 uIU/mL 0.358-3.74 [facility] Urine Microalbumin/Creatini ne Ratio 45.0 mg/g CRE <30 [facility] Vitamin D 25-Hydroxy 44.3 ng/mL [facility] Comment on above: Vitamin D 25(OH) Sta tus Range Deficiency <20 ng/mL (50nmol/L) Insufficiency 20 - 30 ng/mL (50 - 75 nmol/L) Sufficiency 30 - 100 ng/mL (75 - 250 nmol/L) Toxicity >100 ng/mL (>250 nmol/L) Platelets bldOrdered By: Dr. Siddiqui on 10-13-2022 Platelets (Bld) [#/Vol] 201 10*3/uL 150-450 [facility] Protein Test strip Ql (U)Ord ered By: Dr. Siddiqui on 10-13-2022 Protein Ql (U) 30 mg/dl Negative [facility] Serum or plasma albumin heladio urement (mass/volume)Ordered By: Dr. Siddiqui on 10-13-2022 Albumin [Mass/Vol] 3.9 g/dL 3.2-5.0 [facility] Serum or plasma albumin/glob ulin mass ratioOrdered By: Dr. Siddiqui on 10-13-2022 Albumin/Globulin [Mass ratio] 1.1 {ratio} 0.9-2.4 [facility] Serum or plasma calcium heladio urement (mass/volume)Ordered By: Dr. Siddiqui on 10-13-2022 Calcium [Mass/Vol] 8.7 mg/dL 8.5-10.1 [facility] Serum or plasma cholesterol in HDL measurement (mass/volume)Ordered By: Dr. Siddiqui on 10-13-2022 Cholesterol in HDL [Mass/Vol] 49 mg/dL >40 [facility] Comment on above: The drugs N-Acetylcy steine and Metamizole may falsely depress this assay. Reference Range HDL <40 mg/dL Low HDL Cholesterol HDL >or= 60 mg/dL High HDL Cholesterol Serum or plasma cholesterol in VLDL measurement (mass/volume)Ordered By: Dr. Siddiqui on 10-13-2022 Cholesterol in VLDL [Mass/Vol] 25 mg/dL 5-40 [facility] Serum or plasma creatinine m easurement (mass/volume)Ordered By: Dr. Siddiqui on 10-13-2022 Creatinine [Mass/Vol] 0.96 mg/dL 0.70-1.30 [facility] Comment on above: The validity of the calculated GFR & GFRAA in patients over 70 years has not been determined. Clinical correlation is essential. Serum or plasma low density lipoprotein (LDL) cholesterol measurement (mass/volume)Ordered By: Dr. Siddiqui on 10-13-2022 Cholesterol in LDL [Mass/Vol] 48 mg/dL 0-130 [facility] Serum or plasma urea nitroge n measurement (mass/volume)Ordered By: Dr. iSddiqui on 10-13-2022 Urea nitrogen [Mass/Vol] 18 mg/dL 7-18 [facility] Squamous epithelial cells de tection in urine sediment by light microscopyOrdered By: Dr. Siddiqui on 10-13-2022 Epithelial cells.squamous LM Ql (Urine sed) 0-5 SEEN /hpf 0-5 [facility] Thin prep Papanicolaou smear with manual screeningOrdered By: Dr. Siddiqui on 10-13-2022 Thin prep Papanicolaou smear with manual screening 32 U/L 15-37 [facility] Thin prep Papanicolaou smear with manual screening 5 5-15 [facility] Thin prep Papanicolaou smear with manual screening 70.2 mg/L NO RANGE EST. [facility] Urine blood detectionOrdered By: Dr. Siddiqui on 10-13-2022 RBC Ql (U) 10 /ul Negative [facility] RBC Ql (U) 0-5 SEEN /hpf 0-5 [facility] Urine clarityOrdered By: Dr. Siddiqui on 10-13-2022 Clarity (U) Sl. Cloudy Clear [facility] Urine color determinationOrd ered By: Dr. Siddiqui on 10-13-2022 Color (U) Yellow Yellow [facility] Urine creatinine measurement (mass/volume)Ordered By: Dr. Siddiqui on 10-13-2022 Creatinine (U) [Mass/Vol] 156.00 mg/dL NO RANGE EST. [facility] Urine glucose detectionOrder ed By: Dr. Siddiqui on 10-13-2022 Glucose Ql (U) Normal mg/dl Normal [facility] Urine leukocyte esterase det ection by dipstickOrdered By: Dr. Siddiqui on 10-13-2022 Leukocyte esterase Test strip Ql (U) Negative Negative [facility] Urine pHOrdered By: Dr. Mumtaz hernandez on 10-13-2022 pH (U) 5.0 [pH] 5.0 - 8.0 [facility] Urine sediment bacteria coun t by microscopy (number/high power field)Ordered By: Dr. Siddiqui on 10-13-2022 Bacteria LM.HPF (Urine sed) [#/Area] 0 /[HPF] None Seen [facility] Urine specific gravity measu rementOrdered By: Dr. Siddiqui on 10-13-2022 Specific gravity (U) [Rel density] 1.020 1.002-1.03 0 [facility] Urobilinogen Auto test strip Ql (U)Ordered By: Dr. Siddiqui on 10-13-2022 Urobilinogen Ql (U) 1 mg/dl Normal [facility] Basophil percentageOrdered B y: Dr. Martinez on 09-25-2022 Creatinine [Mass/Vol] 1.0 mg/dL 0.70-1.30 [facility] No Panel InformationOrdered By: Dr. Martinez on 09-25-2022 Bedside Estimated GFR (eGFR) > 60.0000 mL/min >60 [facility] Blood Glucose , Office ([phone])Ordered By: Gilda Hogue on 08-27-2022 Glucose Glucometer (BldC) [Moles/Vol] 123 1 Normal [facility] Work Phone: HgA1C , Office ([phone])Ordere d By: Gilda Hogue on 08-27-2022 HbA1c (Bld) [Mass fraction] 5.8 % Normal 4.6 - 7.1 [facility] Work Phone: Culture, urineOrdered By: Dr Deven Lae on 07-09-2022 Bacteria identified Cx Nom (U) Klebsiella aerogenes [facility] .Auto Diffon 05-24-2022 Basophil, Absolute 0.1 10 3/mcL Normal 0.0-0.2 [facility] ([place]) Comment on above: Performed By: #### U A, UAMICAO #### [address] [address] Basophils/100 WBC (Bld) 0.3 % Normal 0.0-2.5 [facility] ([place]) Comment on above: Performed By: #### U A, UAMICAO #### [address] [address] Eosinophil, Absolute 0.0 10 3/mcL Normal 0.0-0.4 [facility] ([place]) Comment on above: Performed By: #### U A, UAMICAO #### [address] [address] Eosinophils/100 WBC (Bld) 0.0 % Normal 0.0-7.0 [facility] ([place]) Comment on above: Performed By: #### U A, UAMICAO #### [address] [address] Lymphocyte, Absolute 0.5 10 3/mcL Low 0.8-3.9 [facility] ([place]) Comment on above: Performed By: #### U A, UAMICAO #### [address] [address] Lymphocytes/100 WBC (Bld) 2.8 % Low 10.0-50.0 [facility] ([place]) Comment on above: Performed By: #### U A, UAMICAO #### [address] [address] Monocyte, Absolute 0.6 10 3/mcL Normal 0.2-1.0 [facility] ([place]) Comment on above: Performed By: #### U A, UAMICAO #### [address] [address] Monocytes/100 WBC (Bld) 3.7 % Normal 1.7-13.0 [facility] ([place]) Comment on above: Performed By: #### U A, UAMICAO #### [address] [address] Neutrophils/100 WBC (Bld) 93.2 % High 37.0-80.0 [facility] ([place]) Comment on above: Performed By: #### U A, UAMICAO #### [address] [address] .GFRon 05-24-2022 GFR 95 ml/min/1.73sqm Normal [facility] ([place]) Comment on above: Result Comment: GFR Population mean for , Non- Americans Ages 20-29 = 116 mL/min/1.73 sq.m. Ages 30-39 = 107 mL/min/1.73 sq.m. Ages 40-49 = 99 mL/min/1.73 sq.m. Ages 50-59 = 93 mL/min/1.73 sq.m. Ages 60-69 = 85 mL/min/1.73 sq.m. Ages 70+ = 75 mL/min/1.73 sq.m. Chronic Kidney Disease: Less than 60 mL/min/1.73 square meters End Stage Renal Disease: Less than 15 mL/min/1.73 square meters Performed By: #### U A, UAMICAO #### [address] [address] GFR Non- 78 ml/min/1.73sqm Normal [facility] ([place]) Comment on above: Result Comment: GFR Population mean for , Non- Americans Ages 20-29 = 116 mL/min/1.73 sq.m. Ages 30-39 = 107 mL/min/1.73 sq.m. Ages 40-49 = 99 mL/min/1.73 sq.m. Ages 50-59 = 93 mL/min/1.73 sq.m. Ages 60-69 = 85 mL/min/1.73 sq.m. Ages 70+ = 75 mL/min/1.73 sq.m. Chronic Kidney Disease: Less than 60 mL/min/1.73 square meters End Stage Renal Disease: Less than 15 mL/min/1.73 square meters Performed By: #### U A, UAMICAO #### [address] [address] .NEUABSon 05-24-2022 Neutrophil, Absolute 15.8 10 3/mcL High 2.9-6.2 [facility] ([place]) Comment on above: Performed By: #### U Lamar UAMICAO #### [address] [address] BMPon 05-24-2022 BUN/Creatinine Ratio 21 ratio Normal 7-27 [facility] ([place]) Comment on above: Performed By: #### U A, UAMICAO #### [address] [address] Calcium [Mass/Vol] 9.2 mg/dL Normal 8.4-10.2 [facility] ([place]) Comment on above: Performed By: #### U Lamar UAMICAO #### [address] [address] Chloride [Moles/Vol] 101 mmol/L Normal 98-107 [facility] ([place]) Comment on above: Performed By: #### U Lamar UAMICAO #### [address] [address] CO2 [Moles/Vol] 28 mmol/L Normal 23-31 [facility] ([place]) Comment on above: Performed By: #### U Lamar UAMICAO #### [address] [address] Creatinine [Mass/Vol] 0.94 mg/dL Normal 0.70-1.30 [facility] ([place]) Comment on above: Performed By: #### U Lamar UAMICAO #### [address] [address] Electrolyte Balance 8.0 mEq/L Normal 4.0-15.0 [facility] ([place]) Comment on above: Performed By: #### U Lamar UAMICAO #### [address] [address] Glucose [Mass/Vol] 171 mg/dL High 83-110 [facility] ([place]) Comment on above: Performed By: #### U A UAMICAO #### [address] [address] Potassium [Moles/Vol] 4.5 mmol/L Normal 3.5-5.1 [facility] ([place]) Comment on above: Performed By: #### LINDA Brown #### [address] [address] Sodium [Moles/Vol] 137 mmol/L Normal 136-145 [facility] ([place]) Comment on above: Performed By: #### LINDA Brown #### [address] [address] Urea nitrogen [Mass/Vol] 20 mg/dL High 7-18 [facility] ([place]) Comment on above: Performed By: #### LINDA Brown #### [address] [address] CBCon 05-24-2022 Erythrocyte distribution width (RBC) [Ratio] 13.7 % Normal 11.5-14.5 [facility] ([place]) Comment on above: Performed By: #### LINDA Brown #### [address] [address] Hematocrit (Bld) [Volume fraction] 46.0 % Normal 42.0-52.0 [facility] ([place]) Comment on above: Performed By: #### LINDA Brown #### [address] [address] Hgb 15.7 G/dL Normal 14.0-18.0 [facility] ([place]) Comment on above: Performed By: #### LINDA Brown #### [address] [address] MCH (RBC) [Entitic mass] 30.2 pg Normal 27.0-31.2 [facility] ([place]) Comment on above: Performed By: #### LINDA Brown #### [address] [address] MCHC 34.1 G/dL Normal 31.8-35.4 [facility] ([place]) Comment on above: Performed By: #### U A, UAMICAO #### [address] [address] MCV (RBC) [Entitic vol] 88.7 fL Normal 80.0-94.0 [facility] ([place]) Comment on above: Performed By: #### U Lamar UAMICAO #### [address] [address] Platelet 179 10 3/mcL Normal 130-400 [facility] ([place]) Comment on above: Performed By: #### U A UAMICAO #### [address] [address] Platelet mean volume (Bld) [Entitic vol] 7.5 fL Normal 7.4-10.4 [facility] ([place]) Comment on above: Performed By: #### U Lamar UAMICAO #### [address] [address] RBC 5.18 10 6/mcL Normal 4.04-6.13 [facility] ([place]) Comment on above: Performed By: #### U Lamar UAMICAO #### [address] [address] WBC 17.0 10 3/mcL High 4.6-10.8 [facility] ([place]) Comment on above: Performed By: #### U Lamar UAMICAO #### [address] [address] [address] ABDOMEN/PELVIS W/O CONTRA STon 05-24-2022 CT ABDOMEN/PELVIS W/O CONTRAST ORIGINAL EXAMINATION: CT OF THE ABDOMEN AND PELVIS WITHOUT BSOTNHBP83/10/2022 2:[address] ABDOMEN/PELVIS WITHOUT CONTRAST TECHNIQUE: CT of the abdomen and pelvis was performed without the administration of intravenous contrast. Multiplanar reformatted images are provided for review. Automated exposure control, iterative reconstruction, and/or weight based adjustment of the mA/kV was utilized to reduce the radiation dose to as low as reasonably achievable. COMPARISON: None HISTORY: ORDERING SYSTEM PROVIDED HISTORY: Reason for Exam: pain, new SCS FINDINGS: There are no lower thoracic findings. Liver: Normal size and density. No mass or biliary dilatation. Gallbladder: Physiologically distended and otherwise unremarkable in appearance. Common duct: Not dilated. Pancreas: No mass, inflammation, calcification or adjacent fluid collection. Stomach and duodenum: No mass or wall thickening. Spleen: No mass and is normal in size. Right Kidney: No hydronephrosis, solid mass or visible stone. Left Kidney: No hydronephrosis, solid mass or visible stone. Left renal cystic lesions are not visibly changed. Adrenal glands: Normal The large and small bowel loops are unremarkable in appearance. There is a normal appendix in the RIGHT lower quadrant. Retroperitoneum: No lymphadenopathy or hematoma. Aorta: No aneurysm. There is severe atherosclerotic disease. Fem-fem bypass is present. Urinary bladder: Urinary bladder is decompressed by a Olivares catheter. Prostate gland is enlarged measuring 6.6 x 5.2 cm. Mesentery: No mass or inflammatory change. No ascites or free air. No abdominal wall masses or external hernias There are no suspicious bone lesions. Spinal stimulator enters the is central canal at T10-T11. IMPRESSION: No visible acute process. Interpreted by: Alexandr Barba MD Preliminary Report By: Alexandr Barba MD Electronically signed By Alexandr Barba MD Dictated Date: 05/23/2022 9:55:06 PM Prelim Date: 05/23/2022 10:06:26 PM Sign Date: 05/23/2022 10:06:26 PM Ordering Provider: ROBBY BOSWELL [facility] ([place]) CT SPINE THORACIC W/O MAXIMO Jones 05-24-2022 CT SPINE THORACIC W/O CONTRAST ORIGINAL EXAMINATION: CT OF THE THORACIC SPINE WITHOUT CONTRAST 05/23/2022 2:48 pm: TECHNIQUE: CT of the thoracic spine was performed without the administration of intravenous contrast. Multiplanar reformatted images are provided for review. Automated exposure control, iterative reconstruction, and/or weight based adjustment of the mA/kV was utilized to reduce the radiation dose to as low as reasonably achievable. COMPARISON: None. HISTORY: ORDERING SYSTEM PROVIDED HISTORY: Reason for Exam: pain, new SCS FINDINGS: BONES/ALIGNMENT: There is normal alignment of the spine. The vertebral body heights are maintained. No osseous destructive lesion is seen. DEGENERATIVE CHANGES: There is mild diffuse spondylotic change. Spinal stimulator enters the central canal on the right at T10-T11, no visible abnormal fluid collection or severe central canal narrowing, however compromised evaluation is present due to the beam hardening artifact. There is a posterior T8 vertebral body osteophyte which causes mild central canal narrowing centrally. SOFT TISSUES: No paraspinal mass is seen. There is bilateral emphysematous change in nonspecific interstitial thickening. There are coronary artery calcifications and atherosclerotic disease in the aorta. IMPRESSION: No visible abnormality around the spinal stimulator. There is a posterior osteophyte at T8 which causes mild central canal narrowing of indeterminate clinical significance. Coronary artery disease. Interstitial lung disease and emphysematous change. Interpreted by: Alexandr Barba MD Preliminary Report By: Alexandr Barba MD Electronically signed By Alexandr Barba MD Dictated Date: 05/23/2022 10:17:17 PM Prelim Date: 05/23/2022 10:20:54 PM Sign Date: 05/23/2022 10:20:54 PM Ordering Provider: ROBBY BOSWELL [facility] ([place]) LABORATORYOrdered By: Anneliese Ybarra on 05-24-2022 Basophil, Absolute 0.1 103/mcL Invalid Interpretation Code 0.0 - 0.2 10^3/mcL AO Workflow SS Basophils/100 WBC (Bld) 0.3 % Invalid Interpretation Code 0.0 - 2.5 % AO Workflow SS Calcium [Mass/Vol] 9.2 mg/dL Invalid Interpretation Code 8.4 - 10.2 mg/dL AO ADM SS Chloride [Moles/Vol] 101 mmol/L Invalid Interpretation Code 98 - 107 mmol/L AO ADM SS CO2 [Moles/Vol] 28 mmol/L Invalid Interpretation Code 23 - 31 mmol/L AO ADM SS Creatinine [Mass/Vol] 0.94 mg/dL Invalid Interpretation Code 0.70 - 1.30 mg/dL AO ADM SS Electrolyte Balance 8.0 mEq/L Invalid Interpretation Code 4.0 - 15.0 mEq/L AO ADM SS Eosinophil, Absolute 0.0 103/mcL Invalid Interpretation Code 0.0 - 0.4 10^3/mcL AO Workflow SS Eosinophils/100 WBC (Bld) 0.0 % Invalid Interpretation Code 0.0 - 7.0 % AO Workflow SS Erythrocyte distribution width (RBC) [Ratio] 13.7 % Invalid Interpretation Code 11.5 - 14.5 % AO Workflow SS Glucose [Mass/Vol] 171 mg/dL Invalid Interpretation Code 83 - 110 mg/dL AO ADM SS Hematocrit (Bld) [Volume fraction] 46.0 % Invalid Interpretation Code 42.0 - 52.0 % AO Workflow SS Hemoglobin (Bld) [Mass/Vol] 15.7 G/dL Invalid Interpretation Code 14.0 - 18.0 G/dL AO Workflow SS Lymphocyte, Absolute 0.5 103/mcL Invalid Interpretation Code 0.8 - 3.9 10^3/mcL AO Workflow SS Lymphocytes/100 WBC (Bld) 2.8 % Invalid Interpretation Code 10.0 - 50.0 % AO Workflow SS MCH (RBC) [Entitic mass] 30.2 pg Invalid Interpretation Code 27.0 - 31.2 pg AO Workflow SS MCHC 34.1 G/dL Invalid Interpretation Code 31.8 - 35.4 G/dL AO Workflow SS MCV (RBC) [Entitic vol] 88.7 fL Invalid Interpretation Code 80.0 - 94.0 fL AO Workflow SS Monocyte, Absolute 0.6 103/mcL Invalid Interpretation Code 0.2 - 1.0 10^3/mcL AO Workflow SS Monocytes/100 WBC (Bld) 3.7 % Invalid Interpretation Code 1.7 - 13.0 % AO Workflow SS Neutrophil, Absolute 15.8 103/mcL Invalid Interpretation Code 2.9 - 6.2 10^3/mcL AO Workflow SS Neutrophils/100 WBC (Bld) 93.2 % Invalid Interpretation Code 37.0 - 80.0 % AO Workflow SS Platelet mean volume (Bld) [Entitic vol] 7.5 fL Invalid Interpretation Code 7.4 - 10.4 fL AO Workflow SS Platelets (Bld) [#/Vol] 179 103/mcL Invalid Interpretation Code 130 - 400 10^3/mcL AO Workflow SS Potassium [Moles/Vol] 4.5 mmol/L Invalid Interpretation Code 3.5 - 5.1 mmol/L AO ADM SS RBC (Bld) [#/Vol] 5.18 106/mcL Invalid Interpretation Code 4.04 - 6.13 10^6/mcL AO Workflow SS Sodium [Moles/Vol] 137 mmol/L Invalid Interpretation Code 136 - 145 mmol/L AO ADM SS Urea nitrogen [Mass/Vol] 20 mg/dL Invalid Interpretation Code 7 - 18 mg/dL AO ADM SS Urea nitrogen/Creatinine [Mass ratio] 21 ratio Invalid Interpretation Code 7 - 27 ratio AO ADM SS WBC (Bld) [#/Vol] 17.0 103/mcL Invalid Interpretation Code 4.6 - 10.8 10^3/mcL AO Workflow SS LABORATORYOrdered By: SYSTEM SYSTEM on 05-24-2022 GFR 95 ml/min/1.73sqm Invalid Interpretation Code AO Chemistry S GFR Non- 78 ml/min/1.73sqm Invalid Interpretation Code AO Chemistry S .GFRon 05-23-2022 GFR 116 ml/min/1.73sqm Normal [facility] ([place]) Comment on above: Result Comment: GFR Population mean for , Non- Americans Ages 20-29 = 116 mL/min/1.73 sq.m. Ages 30-39 = 107 mL/min/1.73 sq.m. Ages 40-49 = 99 mL/min/1.73 sq.m. Ages 50-59 = 93 mL/min/1.73 sq.m. Ages 60-69 = 85 mL/min/1.73 sq.m. Ages 70+ = 75 mL/min/1.73 sq.m. Chronic Kidney Disease: Less than 60 mL/min/1.73 square meters End Stage Renal Disease: Less than 15 mL/min/1.73 square meters Performed By: #### P SA, CMP, GFR #### [place] [id number] GFR Non- 96 ml/min/1.73sqm Normal [facility] ([place]) Comment on above: Result Comment: GFR Population mean for , Non- Americans Ages 20-29 = 116 mL/min/1.73 sq.m. Ages 30-39 = 107 mL/min/1.73 sq.m. Ages 40-49 = 99 mL/min/1.73 sq.m. Ages 50-59 = 93 mL/min/1.73 sq.m. Ages 60-69 = 85 mL/min/1.73 sq.m. Ages 70+ = 75 mL/min/1.73 sq.m. Chronic Kidney Disease: Less than 60 mL/min/1.73 square meters End Stage Renal Disease: Less than 15 mL/min/1.73 square meters Performed By: #### P SA, CMP, GFR #### [address] [address] .Manual Diffon 05-23-2022 Bands 6.0 % High 0.0-5.0 [facility] ([place]) Comment on above: Performed By: #### P SA, CMP, GFR #### [address] [address] Basophil %, Manual 0.0 % Normal 0.0-2.5 [facility] ([place]) Comment on above: Performed By: #### P SA, CMP, GFR #### [address] [address] Basophil, Abs Manual 0.0 10 3/mcL Normal 0.0-0.2 [facility] ([place]) Comment on above: Performed By: #### P SA, CMP, GFR #### [address] [address] Eosinophil %, Manual 0.0 % Normal 0.0-7.0 [facility] ([place]) Comment on above: Performed By: #### P SA, CMP, GFR #### [address] [address] Eosinophil, Abs Manual 0.0 10 3/mcL Normal 0.0-0.4 [facility] ([place]) Comment on above: Performed By: #### P SA, CMP, GFR #### [address] [address] Lymphocyte %, Manual 0.0 % Low 10.0-50.0 [facility] ([place]) Comment on above: Performed By: #### P SA, CMP, GFR #### [address] [address] Lymphocyte, Abs Manual 0.0 10 3/mcL Low 0.8-3.9 [facility] ([place]) Comment on above: Performed By: #### P SA, CMP, GFR #### [address] [address] Monocyte %, Manual 7.0 % Normal 1.7-13.0 [facility] ([place]) Comment on above: Performed By: #### P SA, CMP, GFR #### [address] [address] Monocyte, Abs Manual 1.4 10 3/mcL High 0.2-1.0 [facility] ([place]) Comment on above: Performed By: #### P SA, CMP, GFR #### [address] [address] Neutrophil %, Manual 87.0 % High 37.0-80.0 [facility] ([place]) Comment on above: Performed By: #### P SA, CMP, GFR #### [address] [address] Neutrophil, Abs Manual 17.7 10 3/mcL High 2.9-6.2 [facility] ([place]) Comment on above: Performed By: #### P SA, CMP, GFR #### [address] [address] Nucleated RBC 0.0 /100 WBC Normal [facility] ([place]) Comment on above: Performed By: #### P SA, CMP, GFR #### [address] [address] .Morphon 05-23-2022 Hyperseg 2+ Normal [facility] ([place]) Comment on above: Performed By: #### P SA, CMP, GFR #### [address] [address] Ovalocytes 1+ Normal [facility] ([place]) Comment on above: Performed By: #### P SA, CMP, GFR #### [address] [address] Platelet Estimate Normal Normal [facility] ([place]) Comment on above: Performed By: #### P SA, CMP, GFR #### [address] [address] Toxic Gran 1+ Normal [facility] ([place]) Comment on above: Performed By: #### P SA, CMP, GFR #### [address] [address] CBCon 05-23-2022 Erythrocyte distribution width (RBC) [Ratio] 13.5 % Normal 11.5-14.5 [facility] ([place]) Comment on above: Performed By: #### P SA, CMP, GFR #### [address] [address] Hematocrit (Bld) [Volume fraction] 41.0 % Low 42.0-52.0 [facility] ([place]) Comment on above: Performed By: #### P SA, CMP, GFR #### [address] [address] Hgb 14.1 G/dL Normal 14.0-18.0 [facility] ([place]) Comment on above: Performed By: #### P SA, CMP, GFR #### [address] [address] MCH (RBC) [Entitic mass] 30.2 pg Normal 27.0-31.2 [facility] ([place]) Comment on above: Performed By: #### P SA, CMP, GFR #### [address] [address] MCHC 34.4 G/dL Normal 31.8-35.4 [facility] ([place]) Comment on above: Performed By: #### P SA, CMP, GFR #### [address] [address] MCV (RBC) [Entitic vol] 87.6 fL Normal 80.0-94.0 [facility] ([place]) Comment on above: Performed By: #### P SA, CMP, GFR #### [address] [address] Platelet 146 10 3/mcL Normal 130-400 [facility] ([place]) Comment on above: Performed By: #### P SA, CMP, GFR #### [address] [address] Platelet mean volume (Bld) [Entitic vol] 7.6 fL Normal 7.4-10.4 [facility] ([place]) Comment on above: Performed By: #### P SA, CMP, GFR #### [address] [place] [address] RBC 4.68 10 6/mcL Normal 4.04-6.13 [facility] ([place]) Comment on above: Performed By: #### P SA, CMP, GFR #### [address] [address] WBC 20.3 10 3/mcL High 4.6-10.8 [facility] ([place]) Comment on above: Performed By: #### P SA, CMP, GFR #### [address] [address] CMPon 05-23-2022 Albumin Level 3.0 G/dL Low 3.4-4.8 [facility] ([place]) Comment on above: Performed By: #### P SA, CMP, GFR #### [address] [address] Albumin/Globulin [Mass ratio] 0.9 {ratio} Low 1.1-2.5 [facility] ([place]) Comment on above: Performed By: #### P SA, CMP, GFR #### [address] [address] ALP [Catalytic activity/Vol] 61 U/L Normal 40-135 [facility] ([place]) Comment on above: Performed By: #### P SA, CMP, GFR #### [address] [address] ALT [Catalytic activity/Vol] 22 U/L Normal 16-63 [facility] ([place]) Comment on above: Performed By: #### P SA, CMP, GFR #### [address] [address] AST [Catalytic activity/Vol] 30 U/L Normal 10-40 [facility] ([place]) Comment on above: Performed By: #### P SA, CMP, GFR #### [address] [address] Bili Total 0.6 mg/dL Normal 0.2-1.0 [facility] ([place]) Comment on above: Result Comment: Use of this assay is not recommended for patients undergoing treatment with eltrombopag due to the potential for falsely elevated results. Performed By: #### P SA, CMP, GFR #### [address] [address] BUN/Creatinine Ratio 19 ratio Normal 7-27 [facility] ([place]) Comment on above: Performed By: #### P SA, CMP, GFR #### [address] [address] Calcium [Mass/Vol] 8.6 mg/dL Normal 8.4-10.2 [facility] ([place]) Comment on above: Performed By: #### P SA, CMP, GFR #### [place] [phone] Chloride [Moles/Vol] 101 mmol/L Normal 98-107 [facility] ([place]) Comment on above: Performed By: #### P SA, CMP, GFR #### [place] [phone] CO2 [Moles/Vol] 26 mmol/L Normal 23-31 [facility] ([place]) Comment on above: Performed By: #### P SA, CMP, GFR #### [address] [address] Creatinine [Mass/Vol] 0.79 mg/dL Normal 0.70-1.30 [facility] ([place]) Comment on above: Performed By: #### P SA, CMP, GFR #### [address] [address] Electrolyte Balance 9.0 mEq/L Normal 4.0-15.0 [facility] ([place]) Comment on above: Performed By: #### P SA, CMP, GFR #### [address] [address] Globulin 3.3 G/dL Normal [facility] ([place]) Comment on above: Performed By: #### P SA, CMP, GFR #### [address] [address] Glucose [Mass/Vol] 150 mg/dL High 83-110 [facility] ([place]) Comment on above: Performed By: #### P SA, CMP, GFR #### [address] [address] Potassium [Moles/Vol] 4.1 mmol/L Normal 3.5-5.1 [facility] ([place]) Comment on above: Performed By: #### P SA, CMP, GFR #### [address] [address] Sodium [Moles/Vol] 136 mmol/L Normal 136-145 [facility] ([place]) Comment on above: Performed By: #### P SA, CMP, GFR #### [address] [address] Total Protein 6.3 G/dL Low 6.4-8.2 [facility] ([place]) Comment on above: Performed By: #### P SA, CMP, GFR #### [address] [address] Urea nitrogen [Mass/Vol] 15 mg/dL Normal 7-18 [facility] ([place]) Comment on above: Performed By: #### P SA, CMP, GFR #### [address] [address] LABORATORYOrdered By: Renetta Samayoa on 05-23-2022 Albumin BCP dye [Mass/Vol] 3.0 G/dL Invalid Interpretation Code 3.4 - 4.8 G/dL AO ADM SS Albumin/Globulin [Mass ratio] 0.9 {ratio} Invalid Interpretation Code 1.1 - 2.5 ratio AO ADM SS ALP [Catalytic activity/Vol] 61 U/L Invalid Interpretation Code 40 - 135 U/L AO ADM SS ALT With P-5'-P [Catalytic activity/Vol] 22 U/L Invalid Interpretation Code 16 - 63 U/L AO ADM SS AST With P-5'-P [Catalytic activity/Vol] 30 U/L Invalid Interpretation Code 10 - 40 U/L AO ADM SS Bands 6.0 1 Invalid Interpretation Code 0.0 - 5.0 % AO Workflow SS Basophil %, Manual 0.0 1 Invalid Interpretation Code 0.0 - 2.5 % AO Workflow SS Basophil, Abs Manual 0.0 103/mcL Invalid Interpretation Code 0.0 - 0.2 10^3/mcL AO Workflow SS Bilirubin [Mass/Vol] 0.6 mg/dL Invalid Interpretation Code 0.2 - 1.0 mg/dL AO ADM SS Calcium [Mass/Vol] 8.6 mg/dL Invalid Interpretation Code 8.4 - 10.2 mg/dL AO ADM SS Chloride [Moles/Vol] 101 mmol/L Invalid Interpretation Code 98 - 107 mmol/L AO ADM SS CO2 [Moles/Vol] 26 mmol/L Invalid Interpretation Code 23 - 31 mmol/L AO ADM SS Creatinine [Mass/Vol] 0.79 mg/dL Invalid Interpretation Code 0.70 - 1.30 mg/dL AO ADM SS Electrolyte Balance 9.0 mEq/L Invalid Interpretation Code 4.0 - 15.0 mEq/L AO ADM SS Eosinophil %, Manual 0.0 1 Invalid Interpretation Code 0.0 - 7.0 % AO Workflow SS Eosinophils (Bld) [#/Vol] 0.0 103/mcL Invalid Interpretation Code 0.0 - 0.4 10^3/mcL AO Workflow SS Globulin 3.3 G/dL Invalid Interpretation Code AO ADM SS Glucose [Mass/Vol] 150 mg/dL Invalid Interpretation Code 83 - 110 mg/dL AO ADM SS Lymphocyte %, Manual 0.0 1 Invalid Interpretation Code 10.0 - 50.0 % AO Workflow SS Lymphocyte, Abs Manual 0.0 103/mcL Invalid Interpretation Code 0.8 - 3.9 10^3/mcL AO Workflow SS Monocyte %, Manual 7.0 1 Invalid Interpretation Code 1.7 - 13.0 % AO Workflow SS Monocyte, Abs Manual 1.4 103/mcL Invalid Interpretation Code 0.2 - 1.0 10^3/mcL AO Workflow SS Neutrophil %, Manual 87.0 1 Invalid Interpretation Code 37.0 - 80.0 % AO Workflow SS Neutrophil, Abs Manual 17.7 103/mcL Invalid Interpretation Code 2.9 - 6.2 10^3/mcL AO Workflow SS Neutrophils.hypersegm ented LM Ql (Bld) 2+ *NA* (05/23/22 6:22 AM) Invalid Interpretation Code AO Workflow SS Nucleated RBC 0.0 /100 WBC Invalid Interpretation Code AO Workflow SS Ovalocytes LM Ql (Bld) 1+ *NA* (05/23/22 6:22 AM) Invalid Interpretation Code AO Workflow SS Platelet Estimate Normal *NA* (05/23/22 6:22 AM) Invalid Interpretation Code AO Workflow SS Potassium [Moles/Vol] 4.1 mmol/L Invalid Interpretation Code 3.5 - 5.1 mmol/L AO ADM SS Prostate specific Ag [Mass/Vol] 43.24 ng/mL Invalid Interpretation Code 0.00 - 4.00 ng/mL AO ADM SS Protein [Mass/Vol] 6.3 G/dL Invalid Interpretation Code 6.4 - 8.2 G/dL AO ADM SS Sodium [Moles/Vol] 136 mmol/L Invalid Interpretation Code 136 - 145 mmol/L AO ADM SS Toxic Gran 1+ *NA* (05/23/22 6:22 AM) Invalid Interpretation Code AO Workflow SS Urea nitrogen [Mass/Vol] 15 mg/dL Invalid Interpretation Code 7 - 18 mg/dL AO ADM SS Urea nitrogen/Creatinine [Mass ratio] 19 ratio Invalid Interpretation Code 7 - 27 ratio AO ADM SS LABORATORYOrdered By: Lexis Morales on 05-23-2022 Erythrocyte distribution width (RBC) [Ratio] 13.5 % Invalid Interpretation Code 11.5 - 14.5 % AO Workflow SS Hematocrit (Bld) [Volume fraction] 41.0 % Invalid Interpretation Code 42.0 - 52.0 % AO Workflow SS Hemoglobin (Bld) [Mass/Vol] 14.1 G/dL Invalid Interpretation Code 14.0 - 18.0 G/dL AO Workflow SS MCH (RBC) [Entitic mass] 30.2 pg Invalid Interpretation Code 27.0 - 31.2 pg AO Workflow SS MCHC 34.4 G/dL Invalid Interpretation Code 31.8 - 35.4 G/dL AO Workflow SS MCV (RBC) [Entitic vol] 87.6 fL Invalid Interpretation Code 80.0 - 94.0 fL AO Workflow SS Platelet mean volume (Bld) [Entitic vol] 7.6 fL Invalid Interpretation Code 7.4 - 10.4 fL AO Workflow SS Platelets (Bld) [#/Vol] 146 103/mcL Invalid Interpretation Code 130 - 400 10^3/mcL AO Workflow SS RBC (Bld) [#/Vol] 4.68 106/mcL Invalid Interpretation Code 4.04 - 6.13 10^6/mcL AO Workflow SS WBC (Bld) [#/Vol] 20.3 103/mcL Invalid Interpretation Code 4.6 - 10.8 10^3/mcL AO Workflow SS LABORATORYOrdered By: SYSTEM SYSTEM on 05-23-2022 GFR 116 ml/min/1.73sqm Invalid Interpretation Code AO Chemistry S GFR Non- 96 ml/min/1.73sqm Invalid Interpretation Code AO Chemistry S No Panel Informationon 05-23 Microscopic examination of blood, culture Culture has been received in lab and is no growth to date. Routine cultures are held for 5 days. [facility] Culture Urine Culture results pending. [facility] PSAon 05-23-2022 Prostate Specific Antigen 43.24 ng/mL High 0.00-4.00 [facility] ([place]) Comment on above: Performed By: #### P SA, CMP, GFR #### [facility] [address] [place], [place] [address] XR CHEST 2 VIEWSon 2 XR CHEST 2 VIEWS ORIGINAL EXAMINATION: TWO XRAY VIEWS OF THE CHEST 05/23/2022 11:34 am COMPARISON: Prior chest x-ray dated 05/22/2022. HISTORY: ORDERING SYSTEM PROVIDED HISTORY: Reason for Exam: increased oxygen demands FINDINGS: The cardiomediastinal silhouette demonstrates a normal appearance. Trace left pleural effusion is seen. No consolidative opacity is identified. There is no pneumothorax. No free air seen beneath the level of the diaphragm. The bony thorax appears acutely intact. Spinal stimulator leads are seen overlying the thoracic spine. IMPRESSION: Trace left pleural effusion. Interpreted by: Erick Chawla MD Preliminary Report By: Erick Chawla MD Electronically signed By Erick Chawla MD Dictated Date: 05/23/2022 3:03:46 PM Prelim Date: 05/23/2022 3:05:19 PM Sign Date: 05/23/2022 3:05:19 PM Ordering Provider: PAOLA Brandt [facility] ([place]) .Urinalysis Microscopic (AO) on 05-22-2022 UA Bacteria 3+ /hpf Abnormal [facility] ([place]) Comment on above: Performed By: #### U A, UAMICAO #### [facility] [address] [place], [place] [address] UA RBC 15-25 Abnormal None Seen [facility] ([place]) Comment on above: Performed By: #### U A, UAMICAO #### [facility] [place] [address] [place], [place] [address] UA Squam Epithelial 0-5 Abnormal None Seen [facility] ([place]) Comment on above: Performed By: #### U A, UAMICAO #### [facility] [address] [place], [place] [address] UA WBC LOADED Abnormal None Seen [facility] ([place]) Comment on above: Performed By: #### U A, UAMICAO #### [address] [address] [address] ABDOMEN/PELVIS W/CONTRAST on 05-22-2022 CT ABDOMEN/PELVIS W/CONTRAST ORIGINAL EXAMINATION: CT OF THE ABDOMEN AND PELVIS WITH WYMOVEXG88/9/2022 4:02 pm TECHNIQUE: CT of the abdomen and pelvis was performed with the administration of intravenous contrast. Multiplanar reformatted images are provided for review. Automated exposure control, iterative reconstruction, and/or weight based adjustment of the mA/kV was utilized to reduce the radiation dose to as low as reasonably achievable. COMPARISON: None HISTORY: ORDERING SYSTEM PROVIDED HISTORY: Reason for Exam: abd pain, gas bubble bladder vs colon FINDINGS: Scarring/atelectasis noted in the lower lungs.. There is no visible pleural or pericardial effusion. The heart is normal in size. A cyst is noted in the left hepatic lobe on image 17, too small for characterization. The pancreas, adrenal glands and spleen are unremarkable. There are splenic granulomas. No filling defects seen in the gallbladder. The kidneys enhance symmetrically. A 2.3 cm low-density lesion in the left kidney measures 33 Hounsfield units. There is a parapelvic left renal cyst measuring 8 Hounsfield units. The large and small bowel demonstrate no obstruction. The appendix is normal. No free intraperitoneal fluid or gas is identified. The aorta is normal in caliber. There is moderate atherosclerosis of the larger arteries. There is femoral-femoral bypass graft There is no lymphadenopathy. The prostate is enlarged and heterogeneous. There is a central hyperattenuating area measuring 4 cm. No filling defects seen in the urinary bladder. There is no acute fracture or aggressive osseous lesion. A neurostimulator noted.. There are posterior fusion changes in the lower lumbar spine. Small hernia noted near the umbilicus, partially obscured by motion IMPRESSION: Mildly complex left renal lesion. CT renal mass protocol advised. Enlarged and heterogeneous prostate with focal hyperattenuation centrally in the prostate. Prostate neoplasm is not excluded. Correlate PSA Other incidental findings, as above Interpreted by: Gm Jiang MD Preliminary Report By: Gm Jiang MD Electronically signed By Gm iJang MD Dictated Date: 05/22/2022 4:14:35 PM Prelim Date: 05/22/2022 4:23:24 PM Sign Date: 05/22/2022 4:23:24 PM Ordering Provider: PAOLA GRAY [facility] ([place]) LABORATORYOrdered By: Laura Suárez on 05-22-2022 Appearance (U) Cloudy *ABN* (05/22/22 2:38 PM) Invalid Interpretation Code Clear AO Auto Urine SS Bacteria LM.HPF (Urine sed) [#/Area] 3 /[HPF] Invalid Interpretation Code AO Auto Urine SS Bilirubin Ql (U) Negative (05/22/22 2:38 PM) Invalid Interpretation Code Negative AO Auto Urine SS Color (U) Yellow (05/22/22 2:38 PM) Invalid Interpretation Code AO Auto Urine SS Glucose Test strip (U) [Mass/Vol] Negative Invalid Interpretation Code Negativemg /dL AO Auto Urine SS Hemoglobin Auto test strip (U) [Mass/Vol] Large *ABN* (05/22/22 2:38 PM) Invalid Interpretation Code Negative AO Auto Urine SS Ketones Ql (U) 15 mg/dL Invalid Interpretation Code Negativemg /dL AO Auto Urine SS UA Leuk Est Moderate *ABN* (05/22/22 2:38 PM) Invalid Interpretation Code Negative AO Auto Urine SS UA Nitrite Negative (05/22/22 2:38 PM) Invalid Interpretation Code Negative AO Auto Urine SS UA pH 6.0 (05/22/22 2:38 PM) Invalid Interpretation Code 5.0 - 8.0 AO Auto Urine SS UA Protein 100 mg/dL Invalid Interpretation Code Negativemg /dL AO Auto Urine SS UA RBC 15-25 /HPF Invalid Interpretation Code None Seen/HPF AO Auto Urine SS UA Spec Grav 1.025 (05/22/22 2:38 PM) Invalid Interpretation Code 1.015-1.02 5 AO Auto Urine SS UA Specimen Type Clean Catch (05/22/22 2:38 PM) Invalid Interpretation Code AO Auto Urine SS UA Squam Epithelial 0-5 /HPF Invalid Interpretation Code None Seen/HPF AO Auto Urine SS UA Urobilinogen 0.2 E.U./dL Invalid Interpretation Code 0.2-1.0E.U ./dL AO Auto Urine SS WBC LM.HPF (Urine sed) [#/Area] LOADED /HPF Invalid Interpretation Code None Seen/HPF AO Auto Urine SS UAon 05-22-2022 Color (U) Yellow Normal [facility] ([place]) Comment on above: Performed By: #### U A, UAMICAO #### [address] [address] Glucose (U) [Mass/Vol] Negative Normal Negative [facility] ([place]) Comment on above: Performed By: #### U A, UAMICAO #### [address] [address] Ketones Ql (U) 15 mg/dL Abnormal Negative [facility] ([place]) Comment on above: Performed By: #### U A, UAMICAO #### [address] [address] UA Appear Cloudy Abnormal Clear [facility] ([place]) Comment on above: Performed By: #### U A, UAMICAO #### [address] [address] UA Blood Large Abnormal Negative [facility] ([place]) Comment on above: Performed By: #### U A, UAMICAO #### [address] [address] UA Leuk Est Moderate Abnormal Negative [facility] ([place]) Comment on above: Performed By: #### U A, UAMICAO #### [address] [address] UA Nitrite Negative Normal Negative [facility] ([place]) Comment on above: Performed By: #### U A, UAMICAO #### [address] [address] UA pH 6.0 Normal 5.0 - 8.0 [facility] ([place]) Comment on above: Performed By: #### U A, UAMICAO #### [address] [address] UA Protein 100 mg/dL Abnormal Negative [facility] ([place]) Comment on above: Performed By: #### U A, UAMICAO #### [address] [address] UA Spec Grav 1.025 Normal 1.015-1.02 5 [facility] ([place]) Comment on above: Performed By: #### U A UAMICAO #### [address] [address] UA Specimen Type Clean Catch Normal [facility] ([place]) Comment on above: Performed By: #### U A UAMICAO #### [address] [address] UA Urobilinogen 0.2 E.U./dL Normal 0.2-1.0 [facility] ([place]) Comment on above: Performed By: #### U A UAMICAO #### [address] [address] Urobilinogen (U) [Mass/Vol] Negative Normal Negative [facility] ([place]) Comment on above: Performed By: #### U A UAMICAO #### [address] [address] XR ABDOMEN SERIES W/CHEST 1 VIEWon 05-22-2022 XR ABDOMEN SERIES W/CHEST 1 VIEW ORIGINAL EXAMINATION: TWO XRAY VIEWS OF THE ABDOMEN AND SINGLE XRAY VIEW OF THE CHEST05/22/2022 6:20 am COMPARISON: 05/21/2022 HISTORY: ORDERING SYSTEM PROVIDED HISTORY: Reason for Exam: abd pain FINDINGS: Previous described intraluminal gas bubble projecting over the lower pelvis now measures approximately 7.3 x 5.3 cm, previously 8.4 x 6.6 cm. There are no pathologically dilated loops of bowel identified. Gaseous distension of the colon is much improved from prior study. Scattered fecal material. Minimal bibasilar atelectasis. Otherwise the lungs are grossly clear. Grossly unremarkable cardiomediastinal silhouette. Stimulator device present. Lumbosacral hardware noted. IMPRESSION: Nonobstructive bowel gas pattern. Previous described gaseous distension of the colon is much improved and basically resolved. Persistent intraluminal gas bubble over the lower pelvis. I have personally reviewed the images of this examination and agree with the resident's findings and interpretation. RECOMMENDATIONS: Unavailable Interpreted by: Jayne Collins MD Preliminary Report By: Alejandro Alba Electronically signed By Jayne Collins MD Dictated Date: 05/22/2022 6:43:35 AM Prelim Date: 05/22/2022 6:48:33 AM Sign Date: 05/22/2022 7:50:29 AM Ordering Provider: PAOLA GRAY Normal [facility] ([place]) .Auto Diffon 05-21-2022 Basophil, Absolute 0.0 10 3/mcL Normal 0.0-0.2 [facility] ([place]) Basophils/100 WBC (Bld) 0.2 % Normal 0.0-2.5 [facility] ([place]) Eosinophil, Absolute 0.0 10 3/mcL Normal 0.0-0.4 [facility] ([place]) Eosinophils/100 WBC (Bld) 0.0 % Normal 0.0-7.0 [facility] ([place]) Lymphocyte, Absolute 0.7 10 3/mcL Low 0.8-3.9 [facility] ([place]) Lymphocytes/100 WBC (Bld) 5.6 % Low 10.0-50.0 [facility] ([place]) Monocyte, Absolute 0.6 10 3/mcL Normal 0.2-1.0 [facility] ([place]) Monocytes/100 WBC (Bld) 5.3 % Normal 1.7-13.0 [facility] ([place]) Neutrophils/100 WBC (Bld) 88.9 % High 37.0-80.0 [facility] ([place]) .GFRon 05-21-2022 GFR 89 ml/min/1.73sqm Normal [facility] ([place]) Comment on above: Result Comment: GFR Population mean for , Non- Americans Ages 20-29 = 116 mL/min/1.73 sq.m. Ages 30-39 = 107 mL/min/1.73 sq.m. Ages 40-49 = 99 mL/min/1.73 sq.m. Ages 50-59 = 93 mL/min/1.73 sq.m. Ages 60-69 = 85 mL/min/1.73 sq.m. Ages 70+ = 75 mL/min/1.73 sq.m. Chronic Kidney Disease: Less than 60 mL/min/1.73 square meters End Stage Renal Disease: Less than 15 mL/min/1.73 square meters Performed By: #### U A, UAMICAO #### [address] [address] GFR Non- 74 ml/min/1.73sqm Normal [facility] ([place]) Comment on above: Result Comment: GFR Population mean for , Non- Americans Ages 20-29 = 116 mL/min/1.73 sq.m. Ages 30-39 = 107 mL/min/1.73 sq.m. Ages 40-49 = 99 mL/min/1.73 sq.m. Ages 50-59 = 93 mL/min/1.73 sq.m. Ages 60-69 = 85 mL/min/1.73 sq.m. Ages 70+ = 75 mL/min/1.73 sq.m. Chronic Kidney Disease: Less than 60 mL/min/1.73 square meters End Stage Renal Disease: Less than 15 mL/min/1.73 square meters Performed By: #### U A, UAMICAO #### [address] [address] .NEUABSon 05-21-2022 Neutrophil, Absolute 10.6 10 3/mcL High 2.9-6.2 A [facility] ([place]) BMPon 05-21-2022 BUN/Creatinine Ratio 15 ratio Normal 7-27 [facility] ([place]) Comment on above: Performed By: #### U A, UAMICAO #### [address] [address] Calcium [Mass/Vol] 9.1 mg/dL Normal 8.4-10.2 [facility] ([place]) Comment on above: Performed By: #### U A, UAMICAO #### [address] [address] Chloride [Moles/Vol] 102 mmol/L Normal 98-107 [facility] ([place]) Comment on above: Performed By: #### U A, UAMICAO #### [address] [address] CO2 [Moles/Vol] 24 mmol/L Normal 23-31 [facility] ([place]) Comment on above: Performed By: #### U A, UAMICAO #### [address] [address] Creatinine [Mass/Vol] 0.99 mg/dL Normal 0.70-1.30 [facility] ([place]) Comment on above: Performed By: #### U A, UAMICAO #### [address] [address] Electrolyte Balance 11.0 mEq/L Normal 4.0-15.0 [facility] ([place]) Comment on above: Performed By: #### U A, UAMICAO #### [address] [address] Glucose [Mass/Vol] 163 mg/dL High 83-110 [facility] ([place]) Comment on above: Performed By: #### U A, UAMICAO #### [address] [address] Potassium [Moles/Vol] 4.7 mmol/L Normal 3.5-5.1 [facility] ([place]) Comment on above: Performed By: #### U A, UAMICAO #### [address] [address] Sodium [Moles/Vol] 137 mmol/L Normal 136-145 [facility] ([place]) Comment on above: Performed By: #### U A, UAMICAO #### [address] [address] Urea nitrogen [Mass/Vol] 15 mg/dL Normal 7-18 [facility]) Comment on above: Performed By: #### U LINDA Newton #### [address] [place], [place] [address] CBCon 05-21-2022 Erythrocyte distribution width (RBC) [Ratio] 13.8 % Normal 11.5-14.5 [facility]) Hematocrit (Bld) [Volume fraction] 42.0 % Normal 42.0-52.0 [facility]) Hgb 14.3 G/dL Normal 14.0-18.0 [facility]) MCH (RBC) [Entitic mass] 30.4 pg Normal 27.0-31.2 [facility]) MCHC 34.1 G/dL Normal 31.8-35.4 [facility]) MCV (RBC) [Entitic vol] 89.1 fL Normal 80.0-94.0 [facility]) Platelet 214 10 3/mcL Normal 130-400 [facility]) Platelet mean volume (Bld) [Entitic vol] 7.7 fL Normal 7.4-10.4 [facility]) RBC 4.71 10 6/mcL Normal 4.04-6.13 [facility]) WBC 11.9 10 3/mcL High 4.6-10.8 [facility]) LABORATORYOrdered By: Renetta Samayoa on 05-21-2022 Basophil, Absolute 0.0 103/mcL Invalid Interpretation Code 0.0 - 0.2 10^3/mcL AO Workflow SS Basophils/100 WBC (Bld) 0.2 % Invalid Interpretation Code 0.0 - 2.5 % AO Workflow SS Calcium [Mass/Vol] 9.1 mg/dL Invalid Interpretation Code 8.4 - 10.2 mg/dL AO ADM SS Chloride [Moles/Vol] 102 mmol/L Invalid Interpretation Code 98 - 107 mmol/L AO ADM SS CO2 [Moles/Vol] 24 mmol/L Invalid Interpretation Code 23 - 31 mmol/L AO ADM SS Creatinine [Mass/Vol] 0.99 mg/dL Invalid Interpretation Code 0.70 - 1.30 mg/dL AO ADM SS Electrolyte Balance 11.0 mEq/L Invalid Interpretation Code 4.0 - 15.0 mEq/L AO ADM SS Eosinophil, Absolute 0.0 103/mcL Invalid Interpretation Code 0.0 - 0.4 10^3/mcL AO Workflow SS Eosinophils/100 WBC (Bld) 0.0 % Invalid Interpretation Code 0.0 - 7.0 % AO Workflow SS Erythrocyte distribution width (RBC) [Ratio] 13.8 % Invalid Interpretation Code 11.5 - 14.5 % AO Workflow SS Glucose [Mass/Vol] 163 mg/dL Invalid Interpretation Code 83 - 110 mg/dL AO ADM SS Hematocrit (Bld) [Volume fraction] 42.0 % Invalid Interpretation Code 42.0 - 52.0 % AO Workflow SS Hemoglobin (Bld) [Mass/Vol] 14.3 G/dL Invalid Interpretation Code 14.0 - 18.0 G/dL AO Workflow SS Lymphocyte, Absolute 0.7 103/mcL Invalid Interpretation Code 0.8 - 3.9 10^3/mcL AO Workflow SS Lymphocytes/100 WBC (Bld) 5.6 % Invalid Interpretation Code 10.0 - 50.0 % AO Workflow SS MCH (RBC) [Entitic mass] 30.4 pg Invalid Interpretation Code 27.0 - 31.2 pg AO Workflow SS MCHC 34.1 G/dL Invalid Interpretation Code 31.8 - 35.4 G/dL AO Workflow SS MCV (RBC) [Entitic vol] 89.1 fL Invalid Interpretation Code 80.0 - 94.0 fL AO Workflow SS Monocyte, Absolute 0.6 103/mcL Invalid Interpretation Code 0.2 - 1.0 10^3/mcL AO Workflow SS Monocytes/100 WBC (Bld) 5.3 % Invalid Interpretation Code 1.7 - 13.0 % AO Workflow SS Neutrophil, Absolute 10.6 103/mcL Invalid Interpretation Code 2.9 - 6.2 10^3/mcL AO Workflow SS Neutrophils/100 WBC (Bld) 88.9 % Invalid Interpretation Code 37.0 - 80.0 % AO Workflow SS Platelet mean volume (Bld) [Entitic vol] 7.7 fL Invalid Interpretation Code 7.4 - 10.4 fL AO Workflow SS Platelets (Bld) [#/Vol] 214 103/mcL Invalid Interpretation Code 130 - 400 10^3/mcL AO Workflow SS Potassium [Moles/Vol] 4.7 mmol/L Invalid Interpretation Code 3.5 - 5.1 mmol/L AO ADM SS RBC (Bld) [#/Vol] 4.71 106/mcL Invalid Interpretation Code 4.04 - 6.13 10^6/mcL AO Workflow SS Sodium [Moles/Vol] 137 mmol/L Invalid Interpretation Code 136 - 145 mmol/L AO ADM SS Urea nitrogen [Mass/Vol] 15 mg/dL Invalid Interpretation Code 7 - 18 mg/dL AO ADM SS Urea nitrogen/Creatinine [Mass ratio] 15 ratio Invalid Interpretation Code 7 - 27 ratio AO ADM SS WBC (Bld) [#/Vol] 11.9 103/mcL Invalid Interpretation Code 4.6 - 10.8 10^3/mcL AO Workflow SS LABORATORYOrdered By: SYSTEM SYSTEM on 05-21-2022 GFR 89 ml/min/1.73sqm Invalid Interpretation Code AO Chemistry S GFR Non- 74 ml/min/1.73sqm Invalid Interpretation Code AO Chemistry S XR ABDOMEN APon 05-21-2022 XR ABDOMEN AP ORIGINAL EXAMINATION: ONE SUPINE XRAY VIEW(S) OF THE ABDOMEN 05/21/2022 8:08 am COMPARISON: None. HISTORY: ORDERING SYSTEM PROVIDED HISTORY: Reason for Exam: Rule out Ileus Spinal scored stimulator placement yesterday, sharp lower abdominal pain FINDINGS: No dilated small bowel loops. Gaseous distension throughout the colon with moderate stool load on the right. 6.6 x 8.4 cm intraluminal gas bubble projects over the lower pelvis. A stimulator battery pack device projects over the right lower quadrant, stimulator lead terminating over the T8 vertebral body. Posterior fusion rods and screws at L5-S1. IMPRESSION: Gaseous distension throughout the colon may reflect adynamic ileus. Intraluminal gas bubble over the lower pelvis favored to be rectal over the urinary bladder. However this could relate to recent bladder instrumentation. Consider lateral pelvic radiographs for further evaluation. Interpreted by: Raghu Zacarias Preliminary Report By: Raghu Zacarias Electronically signed By Raghu Zacarias Dictated Date: 05/21/2022 11:16:01 AM Prelim Date: 05/21/2022 11:21:20 AM Sign Date: 05/21/2022 11:21:20 AM Ordering Provider: ROBBY BOSWELL [facility] ([place]) XR PELVIS 1 OR 2 VIEWSon XR PELVIS 1 OR 2 VIEWS ORIGINAL EXAMINATION: ONE XRAY VIEW OF THE PELVIS 05/21/2022 12:03 pm COMPARISON: KUB earlier the same day. HISTORY: ORDERING SYSTEM PROVIDED HISTORY: Reason for Exam: abdominal pain, intraluminal gas bubble FINDINGS: There is a focus of air with multilobulated margins measuring 8 x 8 cm projecting at the mid to posterior pelvis. Additional mild gas and stool distension of the colon as well as mild gas distension of the small bowel is evident. No definite pneumoperitoneum. No definite osseous abnormality. Surgical changes are noted of the spine. Partially visible spinal stimulator battery pack and lead noted. IMPRESSION: Similar air projecting at the pelvis. It is uncertain if this is within the bowel or urinary bladder lumen. If there is concern for extraluminal air, consider CT as deemed clinically warranted Interpreted by: Gm Herrera DO Preliminary Report By: Gm Herrera DO Electronically signed By Gm Herrera DO Dictated Date: 05/21/2022 12:05:52 PM Prelim Date: 05/21/2022 12:09:28 PM Sign Date: 05/21/2022 12:09:28 PM Ordering Provider: PAOLA Brandt [facility] ([place]) .Auto Diffon 05-20-2022 Basophil, Absolute 0.0 10 3/mcL Normal 0.0-0.2 [facility] ([place]) Comment on above: Performed By: #### LINDA Brown #### [address] [address] Basophils/100 WBC (Bld) 0.2 % Normal 0.0-2.5 [facility] ([place]) Comment on above: Performed By: #### LINDA Brown #### [address] [address] Eosinophil, Absolute 0.0 10 3/mcL Normal 0.0-0.4 [facility] ([place]) Comment on above: Performed By: #### LINDA Brown #### [address] [address] Eosinophils/100 WBC (Bld) 0.0 % Normal 0.0-7.0 [facility] ([place]) Comment on above: Performed By: #### LINDA Brown #### [address] [address] Lymphocyte, Absolute 0.5 10 3/mcL Low 0.8-3.9 [facility] ([place]) Comment on above: Performed By: #### U A, UAMICAO #### [address] [address] Lymphocytes/100 WBC (Bld) 4.3 % Low 10.0-50.0 [facility] ([place]) Comment on above: Performed By: #### U A, UAMICAO #### [address] [address] Monocyte, Absolute 0.1 10 3/mcL Low 0.2-1.0 [facility] ([place]) Comment on above: Performed By: #### U A, UAMICAO #### [address] [address] Monocytes/100 WBC (Bld) 0.8 % Low 1.7-13.0 [facility] ([place]) Comment on above: Performed By: #### U A, UAMICAO #### [address] [address] Neutrophils/100 WBC (Bld) 94.7 % High 37.0-80.0 [facility] ([place]) Comment on above: Performed By: #### U A, UAMICAO #### [address] [address] .GFRon 05-20-2022 GFR 98 ml/min/1.73sqm Normal [facility] ([place]) Comment on above: Result Comment: GFR Population mean for , Non- Americans Ages 20-29 = 116 mL/min/1.73 sq.m. Ages 30-39 = 107 mL/min/1.73 sq.m. Ages 40-49 = 99 mL/min/1.73 sq.m. Ages 50-59 = 93 mL/min/1.73 sq.m. Ages 60-69 = 85 mL/min/1.73 sq.m. Ages 70+ = 75 mL/min/1.73 sq.m. Chronic Kidney Disease: Less than 60 mL/min/1.73 square meters End Stage Renal Disease: Less than 15 mL/min/1.73 square meters Performed By: #### U A, UAMICAO #### [address] [place], [place] [address] GFR Non- 81 ml/min/1.73sqm Normal [facility] ([place]) Comment on above: Result Comment: GFR Population mean for , Non- Americans Ages 20-29 = 116 mL/min/1.73 sq.m. Ages 30-39 = 107 mL/min/1.73 sq.m. Ages 40-49 = 99 mL/min/1.73 sq.m. Ages 50-59 = 93 mL/min/1.73 sq.m. Ages 60-69 = 85 mL/min/1.73 sq.m. Ages 70+ = 75 mL/min/1.73 sq.m. Chronic Kidney Disease: Less than 60 mL/min/1.73 square meters End Stage Renal Disease: Less than 15 mL/min/1.73 square meters Performed By: #### U A, UAMICAO #### [address] [address] .NEUABSon 05-20-2022 Neutrophil, Absolute 11.3 10 3/mcL High 2.9-6.2 A [facility] ([place]) Comment on above: Performed By: #### U A, UAMICAO #### [address] [address] .Urinalysis Microscopic (AO) on 05-20-2022 UA Bacteria Trace Abnormal [facility] ([place]) Comment on above: Performed By: #### U AMICAO, UA ####[address] [place], [place] [address] UA RBC LOADED Abnormal None Seen [facility] ([place]) Comment on above: Performed By: #### U AMICAO, UA ####[address] [place], [place] [address] UA Squam Epithelial 0-5 Abnormal None Seen [facility] ([place]) Comment on above: Performed By: #### U AMICAO, UA ####[address] [address] UA WBC 5-10 Abnormal None Seen [facility] ([place]) Comment on above: Performed By: #### U MARTHA UA ####[address] [address] BMPon 05-20-2022 BUN/Creatinine Ratio 16 ratio Normal 7-27 [facility] ([place]) Comment on above: Performed By: #### U Lamar UAMICAO #### [address] [address] Calcium [Mass/Vol] 8.4 mg/dL Normal 8.4-10.2 [facility] ([place]) Comment on above: Performed By: #### Nico Newton UAMICAO #### [address] [address] Chloride [Moles/Vol] 105 mmol/L Normal 98-107 [facility] ([place]) Comment on above: Performed By: #### Nico Newton UAMICAO #### [address] [address] CO2 [Moles/Vol] 22 mmol/L Low 23-31 [facility] ([place]) Comment on above: Performed By: #### U Lamar UAMICAO #### [address] [address] Creatinine [Mass/Vol] 0.91 mg/dL Normal 0.70-1.30 [facility] ([place]) Comment on above: Performed By: #### U Lamar UAMICAO #### [address] [address] Electrolyte Balance 12.0 mEq/L Normal 4.0-15.0 [facility] ([place]) Comment on above: Performed By: #### U Lamar UAMICAO #### [address] [address] Glucose [Mass/Vol] 145 mg/dL High 83-110 [facility] ([place]) Comment on above: Performed By: #### U A, UAMICAO #### [address] [address] Potassium [Moles/Vol] 4.0 mmol/L Normal 3.5-5.1 [facility] ([place]) Comment on above: Performed By: #### U A, UAMICAO #### [address] [address] Sodium [Moles/Vol] 139 mmol/L Normal 136-145 [facility] ([place]) Comment on above: Performed By: #### U A, UAMICAO #### [address] [address] Urea nitrogen [Mass/Vol] 15 mg/dL Normal 7-18 [facility] ([place]) Comment on above: Performed By: #### U A, UAMICAO #### [address] [address] CBCon 05-20-2022 Erythrocyte distribution width (RBC) [Ratio] 13.7 % Normal 11.5-14.5 [facility] ([place]) Comment on above: Performed By: #### U A, UAMICAO #### [address] [address] Hematocrit (Bld) [Volume fraction] 42.7 % Normal 42.0-52.0 [facility] ([place]) Comment on above: Performed By: #### U A, UAMICAO #### [address] [address] Hgb 14.6 G/dL Normal 14.0-18.0 [facility] ([place]) Comment on above: Performed By: #### U A, UAMICAO #### [address] [address] MCH (RBC) [Entitic mass] 30.4 pg Normal 27.0-31.2 [facility] ([place]) Comment on above: Performed By: #### U A, UAMICAO #### [address] [address] MCHC 34.1 G/dL Normal 31.8-35.4 [facility] ([place]) Comment on above: Performed By: #### U A UAMICAO #### [address] [address] MCV (RBC) [Entitic vol] 89.1 fL Normal 80.0-94.0 [facility] ([place]) Comment on above: Performed By: #### U A UAMICAO #### [address] [address] Platelet 194 10 3/mcL Normal 130-400 [facility] ([place]) Comment on above: Performed By: #### U A UAMICAO #### [address] [address] Platelet mean volume (Bld) [Entitic vol] 7.1 fL Low 7.4-10.4 [facility] ([place]) Comment on above: Performed By: #### U Lamar UAMICAO #### [address] [address] RBC 4.80 10 6/mcL Normal 4.04-6.13 [facility] ([place]) Comment on above: Performed By: #### MANDO BrownMICAO #### [address] [address] WBC 12.0 10 3/mcL High 4.6-10.8 [facility] ([place]) Comment on above: Performed By: #### U Lamar UAMICAO #### [address] [address] LABORATORYOrdered By: Soni Russo on 05-20-2022 Basophil, Absolute 0.0 103/mcL Invalid Interpretation Code 0.0 - 0.2 10^3/mcL AO Workflow SS Basophils/100 WBC (Bld) 0.2 % Invalid Interpretation Code 0.0 - 2.5 % AO Workflow SS Eosinophil, Absolute 0.0 103/mcL Invalid Interpretation Code 0.0 - 0.4 10^3/mcL AO Workflow SS Eosinophils/100 WBC (Bld) 0.0 % Invalid Interpretation Code 0.0 - 7.0 % AO Workflow SS Lymphocyte, Absolute 0.5 103/mcL Invalid Interpretation Code 0.8 - 3.9 10^3/mcL AO Workflow SS Lymphocytes/100 WBC (Bld) 4.3 % Invalid Interpretation Code 10.0 - 50.0 % AO Workflow SS Monocyte, Absolute 0.1 103/mcL Invalid Interpretation Code 0.2 - 1.0 10^3/mcL AO Workflow SS Monocytes/100 WBC (Bld) 0.8 % Invalid Interpretation Code 1.7 - 13.0 % AO Workflow SS Neutrophil, Absolute 11.3 103/mcL Invalid Interpretation Code 2.9 - 6.2 10^3/mcL AO Workflow SS Neutrophils/100 WBC (Bld) 94.7 % Invalid Interpretation Code 37.0 - 80.0 % AO Workflow SS LABORATORYOrdered By: Cristal Carrillo on 05-20-2022 Appearance (U) Slightly Cloudy *ABN* (05/20/22 1:09 PM) Invalid Interpretation Code Clear AO Auto Urine SS Bacteria LM.HPF (Urine sed) [#/Area] Trace /HPF Invalid Interpretation Code AO Auto Urine SS Bilirubin Ql (U) Negative (05/20/22 1:09 PM) Invalid Interpretation Code Negative AO Auto Urine SS Color (U) Monica Invalid Interpretation Code AO Auto Urine SS Glucose Test strip (U) [Mass/Vol] 100 mg/dL Invalid Interpretation Code Negativemg /dL AO Auto Urine SS Hemoglobin Auto test strip (U) [Mass/Vol] Large *ABN* (05/20/22 1:09 PM) Invalid Interpretation Code Negative AO Auto Urine SS Ketones Ql (U) 15 mg/dL Invalid Interpretation Code Negativemg /dL AO Auto Urine SS UA Leuk Est Negative (05/20/22 1:09 PM) Invalid Interpretation Code Negative AO Auto Urine SS UA Nitrite Positive *ABN* (05/20/22 1:09 PM) Invalid Interpretation Code Negative AO Auto Urine SS UA pH 5.5 (05/20/22 1:09 PM) Invalid Interpretation Code 5.0 - 8.0 AO Auto Urine SS UA Protein 30 mg/dL Invalid Interpretation Code Negativemg /dL AO Auto Urine SS UA RBC LOADED /HPF Invalid Interpretation Code None Seen/HPF AO Auto Urine SS UA Spec Grav 1.020 (05/20/22 1:09 PM) Invalid Interpretation Code 1.015-1.02 5 AO Auto Urine SS UA Specimen Type Clean Catch (12/7/22 1:09 PM) Invalid Interpretation Code AO Auto Urine SS UA Squam Epithelial 0-5 /HPF Invalid Interpretation Code None Seen/HPF AO Auto Urine SS UA Urobilinogen 0.2 E.U./dL Invalid Interpretation Code 0.2-1.0E.U ./dL AO Auto Urine SS WBC LM.HPF (Urine sed) [#/Area] 5-10 /HPF Invalid Interpretation Code None Seen/HPF AO Auto Urine SS INR Coag (PPP) [Relative time] 1.0 {INR} Invalid Interpretation Code 0.9 - 1.2 ratio AO Coag SS PT Coag (PPP) [Time] 11.8 s Invalid Interpretation Code 9.7 - 13.9 seconds AO Coag SS LABORATORYOrdered By: Farhan Castle on 05-20-2022 Glucose [Mass/Vol] 106 mg/dL Invalid Interpretation Code 82 - 115 mg/dL [facility] PROon 05-20-2022 INR Coag (PPP) [Relative time] 1.0 {INR} Normal 0.9-1.2 [facility] ([place]) Comment on above: Result Comment: Robb dard Dose 2.0 - 3.0 High Dose 2.5 - 3.5 The recommended therapeutic range for oral anticoagulant therapy is: LOW RISK: Prophylaxis of venous thrombosis INR: 2.0 - 3.0 Treatment of pulmonary embolism 2.0 - 3.0 Prevention of systemic embolism 2.0 - 3.0 HIGH RISK: Mechanical prosthetic valves 2.5 - 3.5 Performed By: #### LINDA Brown #### [address] [address] PT Coag (PPP) [Time] 11.8 s Normal 9.7-13.9 [facility] ([place]) Comment on above: Performed By: #### U LINDA Newton #### [address] [address] UAon 05-20-2022 Color (U) Monica Normal [facility] ([place]) Comment on above: Performed By: #### U MARTHA UA ####[address] [address] Glucose (U) [Mass/Vol] 100 mg/dL Abnormal Negative [facility] ([place]) Comment on above: Performed By: #### U AMICAO, UA ####[address] [address] Ketones Ql (U) 15 mg/dL Abnormal Negative [facility] ([place]) Comment on above: Performed By: #### U AMICAO, UA ####[address] [address] [place] [address] UA Appear Slightly Cloudy Abnormal Clear [facility] ([place]) Comment on above: Performed By: #### U AMICAO, UA ####[address]ie [address] [place] [address] UA Blood Large Abnormal Negative [facility] ([place]) Comment on above: Performed By: #### U AMICAO, UA ####Kylie [address] [place] [address] UA Leuk Est Negative Normal Negative [facility] ([place]) Comment on above: Performed By: #### U AMICAO, UA ####Kylie [address] [place] [address] UA Nitrite Positive Abnormal Negative [facility] ([place]) Comment on above: Performed By: #### U AMICAO, UA ####K[address]ie [address] [place], [place] [address] UA pH 5.5 Normal 5.0 - 8.0 [facility] ([place]) Comment on above: Performed By: #### U AMICAO, UA ####K[address]ie [address] [place] [address] UA Protein 30 mg/dL Normal Negative [facility] ([place]) Comment on above: Performed By: #### U AMICAO, UA ####[address]ie [address] [place] [id number] UA Spec Grav 1.020 Normal 1.015-1.02 5 [facility] ([place]) Comment on above: Performed By: #### U AMICAO, UA ####[address] [place] [address] UA Specimen Type Clean Catch Normal [facility] ([place]) Comment on above: Performed By: #### U MARTHA UA ####[address] [place], [place] [address] UA Urobilinogen 0.2 E.U./dL Normal 0.2-1.0 [facility] ([place]) Comment on above: Performed By: #### U MARTHA UA ####[address] [place], [place] [address] Urobilinogen (U) [Mass/Vol] Negative Normal Negative [facility] ([place]) Comment on above: Performed By: #### U MARTHA UA ####[address] [place], [place] [address] XR FLUORO < 1HR TECH TIMEon 05-20-2022 XR FLUORO < 1HR TECH TIME ORIGINAL Images acquired, not reported on this accession number. Normal [facility] ([place]) .Auto Diffon 05-06-2022 Basophil, Absolute 0.1 10 3/mcL Normal 0.0-0.2 [facility] ([place]) Comment on above: Performed By: #### P RO, APTT, BMP, GFR ####[address] [place], [place] [address] Basophils/100 WBC (Bld) 0.8 % Normal 0.0-2.5 [facility] ([place]) Comment on above: Performed By: #### P RO, APTT, BMP, GFR ####[address] [place], [place] [address] Eosinophil, Absolute 0.2 10 3/mcL Normal 0.0-0.4 [facility] ([place]) Comment on above: Performed By: #### P RO, APTT, BMP, GFR ####[address] [place], [place] [address] Eosinophils/100 WBC (Bld) 2.6 % Normal 0.0-7.0 [facility] ([place]) Comment on above: Performed By: #### P RO, APTT, BMP, GFR ####[address] [place], [place] [address] Lymphocyte, Absolute 2.0 10 3/mcL Normal 0.8-3.9 [facility] ([place]) Comment on above: Performed By: #### P RO, APTT, BMP, GFR ####K[address]ie [address] [place], [place] [address] Lymphocytes/100 WBC (Bld) 25.0 % Normal 10.0-50.0 [facility] ([place]) Comment on above: Performed By: #### P RO, APTT, BMP, GFR ####[address] [place], [place] [address] Monocyte, Absolute 0.9 10 3/mcL Normal 0.2-1.0 [facility] ([place]) Comment on above: Performed By: #### P RO, APTT, BMP, GFR ####[address] [place], [place] [address] Monocytes/100 WBC (Bld) 10.8 % Normal 1.7-13.0 [facility] ([place]) Comment on above: Performed By: #### P RO, APTT, BMP, GFR ####[address] [place], [place] [address] Neutrophils/100 WBC (Bld) 60.8 % Normal 37.0-80.0 [facility] ([place]) Comment on above: Performed By: #### P RO, APTT, BMP, GFR ####[address] [place], [place] [address] .GFRon 05-06-2022 GFR 77 ml/min/1.73sqm Normal [facility] ([place]) Comment on above: Result Comment: GFR Population mean for , Non- Americans Ages 20-29 = 116 mL/min/1.73 sq.m. Ages 30-39 = 107 mL/min/1.73 sq.m. Ages 40-49 = 99 mL/min/1.73 sq.m. Ages 50-59 = 93 mL/min/1.73 sq.m. Ages 60-69 = 85 mL/min/1.73 sq.m. Ages 70+ = 75 mL/min/1.73 sq.m. Chronic Kidney Disease: Less than 60 mL/min/1.73 square meters End Stage Renal Disease: Less than 15 mL/min/1.73 square meters Performed By: #### LINDA Brown #### [id number] [place], [place] [address] GFR Non- 64 ml/min/1.73sqm Normal [facility] ([place]) Comment on above: Result Comment: GFR Population mean for , Non- Americans Ages 20-29 = 116 mL/min/1.73 sq.m. Ages 30-39 = 107 mL/min/1.73 sq.m. Ages 40-49 = 99 mL/min/1.73 sq.m. Ages 50-59 = 93 mL/min/1.73 sq.m. Ages 60-69 = 85 mL/min/1.73 sq.m. Ages 70+ = 75 mL/min/1.73 sq.m. Chronic Kidney Disease: Less than 60 mL/min/1.73 square meters End Stage Renal Disease: Less than 15 mL/min/1.73 square meters Performed By: #### LINDA Brown #### [address] [address] .NEUABSon 05-06-2022 Neutrophil, Absolute 4.9 10 3/mcL Normal 2.9-6.2 [facility] ([place]) Comment on above: Performed By: #### P RO, APTT, BMP, GFR ####[address] [place], [place] [address] APTTon 05-06-2022 aPTT Coag (Bld) [Time] 28.5 s Normal 24.1-34.9 [facility] ([place]) Comment on above: Result Comment: For Heparin anticoagulation therapy, the recommended therapeutic range is: 46.2-75.9 seconds (1.5 - 2.5 the normal plasma mean). Patients on heparin therapy may have an extreme result. Performed By: #### P RO, APTT, BMP, GFR ####[address] [place], [place] [address] Heparin dose (APTT) Unknown Normal [facility] ([place]) Comment on above: Performed By: #### P RO, APTT, BMP, GFR ####[address] [address] BMPon 05-06-2022 BUN/Creatinine Ratio 19 ratio Normal 7-27 [facility] ([place]) Comment on above: Performed By: #### U A, UAMICAO #### [address] [address] Calcium [Mass/Vol] 9.5 mg/dL Normal 8.4-10.2 [facility] ([place]) Comment on above: Performed By: #### U A, UAMICAO #### [address] [address] Chloride [Moles/Vol] 105 mmol/L Normal 98-107 [facility] ([place]) Comment on above: Performed By: #### U A, UAMICAO #### [address] [address] CO2 [Moles/Vol] 24 mmol/L Normal 23-31 [facility] ([place]) Comment on above: Performed By: #### U A, UAMICAO #### [address] [address] Creatinine [Mass/Vol] 1.12 mg/dL Normal 0.70-1.30 [facility] ([place]) Comment on above: Performed By: #### U A, UAMICAO #### [address] [address] Electrolyte Balance 12.0 mEq/L Normal 4.0-15.0 [facility] ([place]) Comment on above: Performed By: #### U A, UAMICAO #### [address] [address] Glucose [Mass/Vol] 124 mg/dL High 83-110 [facility] ([place]) Comment on above: Performed By: #### U A, UAMICAO #### [address] [address] Potassium [Moles/Vol] 4.6 mmol/L Normal 3.5-5.1 [facility] ([place]) Comment on above: Performed By: #### U A, UAMICAO #### [address] [place], [place] [address] Sodium [Moles/Vol] 141 mmol/L Normal 136-145 [facility] ([place]) Comment on above: Performed By: #### U A, UAMICAO #### [address] [address] Urea nitrogen [Mass/Vol] 21 mg/dL High 7-18 [facility] ([place]) Comment on above: Performed By: #### U A UAMICAO #### Kylie [address] [address] CBCon 05-06-2022 Erythrocyte distribution width (RBC) [Ratio] 13.8 % Normal 11.5-14.5 [facility] ([place]) Comment on above: Order Comment: Pre-A dmission Testing Performed By: #### P RO, APTT, BMP, GFR ####[address] [address] Hematocrit (Bld) [Volume fraction] 45.9 % Normal 42.0-52.0 [facility] ([place]) Comment on above: Order Comment: Pre-A dmission Testing Performed By: #### P RO, APTT, BMP, GFR ####[place] [place], [place] [address] Hgb 15.6 G/dL Normal 14.0-18.0 [facility] ([place]) Comment on above: Order Comment: Pre-A dmission Testing Performed By: #### P RO, APTT, BMP, GFR ####[address] [address] MCH (RBC) [Entitic mass] 30.4 pg Normal 27.0-31.2 [facility] ([place]) Comment on above: Order Comment: Pre-A dmission Testing Performed By: #### P RO, APTT, BMP, GFR ####[address] [place], [place] [address] MCHC 33.9 G/dL Normal 31.8-35.4 [facility] ([place]) Comment on above: Order Comment: Pre-A dmission Testing Performed By: #### P RO, APTT, BMP, GFR ####[address] [place], [place] [address] MCV (RBC) [Entitic vol] 89.6 fL Normal 80.0-94.0 [facility] ([place]) Comment on above: Order Comment: Pre-A dmission Testing Performed By: #### P RO, APTT, BMP, GFR ####[address] [place], [place] [address] Platelet 223 10 3/mcL Normal 130-400 [facility] ([place]) Comment on above: Order Comment: Pre-A dmission Testing Performed By: #### P RO, APTT, BMP, GFR ####[address] [place], [place] [address] Platelet mean volume (Bld) [Entitic vol] 7.6 fL Normal 7.4-10.4 [facility] ([place]) Comment on above: Order Comment: Pre-A dmission Testing Performed By: #### P RO, APTT, BMP, GFR ####[address] [place], [place] [address] RBC 5.12 10 6/mcL Normal 4.04-6.13 [facility] ([place]) Comment on above: Order Comment: Pre-A dmission Testing Performed By: #### P RO, APTT, BMP, GFR ####[address] [place], [place] [address] WBC 8.0 10 3/mcL Normal 4.6-10.8 [facility] ([place]) Comment on above: Order Comment: Pre-A dmission Testing Performed By: #### P RO, APTT, BMP, GFR ####[address] [place], [place] [address] LABORATORYOrdered By: Juan Matta on 05-06-2022 aPTT Coag (Bld) [Time] 28.5 s Invalid Interpretation Code 24.1 - 34.9 seconds AO Coag SS Basophil, Absolute 0.1 103/mcL Invalid Interpretation Code 0.0 - 0.2 10^3/mcL AO Workflow SS Basophils/100 WBC (Bld) 0.8 % Invalid Interpretation Code 0.0 - 2.5 % AO Workflow SS Calcium [Mass/Vol] 9.5 mg/dL Invalid Interpretation Code 8.4 - 10.2 mg/dL AO ADM SS Chloride [Moles/Vol] 105 mmol/L Invalid Interpretation Code 98 - 107 mmol/L AO ADM SS CO2 [Moles/Vol] 24 mmol/L Invalid Interpretation Code 23 - 31 mmol/L AO ADM SS Creatinine [Mass/Vol] 1.12 mg/dL Invalid Interpretation Code 0.70 - 1.30 mg/dL AO ADM SS Electrolyte Balance 12.0 mEq/L Invalid Interpretation Code 4.0 - 15.0 mEq/L AO ADM SS Eosinophil, Absolute 0.2 103/mcL Invalid Interpretation Code 0.0 - 0.4 10^3/mcL AO Workflow SS Eosinophils/100 WBC (Bld) 2.6 % Invalid Interpretation Code 0.0 - 7.0 % AO Workflow SS Erythrocyte distribution width (RBC) [Ratio] 13.8 % Invalid Interpretation Code 11.5 - 14.5 % AO Workflow SS Glucose [Mass/Vol] 124 mg/dL Invalid Interpretation Code 83 - 110 mg/dL AO ADM SS Hematocrit (Bld) [Volume fraction] 45.9 % Invalid Interpretation Code 42.0 - 52.0 % AO Workflow SS Hemoglobin (Bld) [Mass/Vol] 15.6 G/dL Invalid Interpretation Code 14.0 - 18.0 G/dL AO Workflow SS Heparin dose (APTT) Unknown (05/06/22 9:19 AM) Invalid Interpretation Code AO Coag SS INR Coag (PPP) [Relative time] 1.0 {INR} Invalid Interpretation Code 0.9 - 1.2 ratio AO Coag SS Lymphocyte, Absolute 2.0 103/mcL Invalid Interpretation Code 0.8 - 3.9 10^3/mcL AO Workflow SS Lymphocytes/100 WBC (Bld) 25.0 % Invalid Interpretation Code 10.0 - 50.0 % AO Workflow SS MCH (RBC) [Entitic mass] 30.4 pg Invalid Interpretation Code 27.0 - 31.2 pg AO Workflow SS MCHC 33.9 G/dL Invalid Interpretation Code 31.8 - 35.4 G/dL AO Workflow SS MCV (RBC) [Entitic vol] 89.6 fL Invalid Interpretation Code 80.0 - 94.0 fL AO Workflow SS Monocyte, Absolute 0.9 103/mcL Invalid Interpretation Code 0.2 - 1.0 10^3/mcL AO Workflow SS Monocytes/100 WBC (Bld) 10.8 % Invalid Interpretation Code 1.7 - 13.0 % AO Workflow SS Neutrophil, Absolute 4.9 103/mcL Invalid Interpretation Code 2.9 - 6.2 10^3/mcL AO Workflow SS Neutrophils/100 WBC (Bld) 60.8 % Invalid Interpretation Code 37.0 - 80.0 % AO Workflow SS Platelet mean volume (Bld) [Entitic vol] 7.6 fL Invalid Interpretation Code 7.4 - 10.4 fL AO Workflow SS Platelets (Bld) [#/Vol] 223 103/mcL Invalid Interpretation Code 130 - 400 10^3/mcL AO Workflow SS Potassium [Moles/Vol] 4.6 mmol/L Invalid Interpretation Code 3.5 - 5.1 mmol/L AO ADM SS PT Coag (PPP) [Time] 11.3 s Invalid Interpretation Code 9.7 - 13.9 seconds AO Coag SS RBC (Bld) [#/Vol] 5.12 106/mcL Invalid Interpretation Code 4.04 - 6.13 10^6/mcL AO Workflow SS Sodium [Moles/Vol] 141 mmol/L Invalid Interpretation Code 136 - 145 mmol/L AO ADM SS Urea nitrogen [Mass/Vol] 21 mg/dL Invalid Interpretation Code 7 - 18 mg/dL AO ADM SS Urea nitrogen/Creatinine [Mass ratio] 19 ratio Invalid Interpretation Code 7 - 27 ratio AO ADM SS WBC (Bld) [#/Vol] 8.0 103/mcL Invalid Interpretation Code 4.6 - 10.8 10^3/mcL AO Workflow SS LABORATORYOrdered By: SYSTEM SYSTEM on 05-06-2022 GFR 77 ml/min/1.73sqm Invalid Interpretation Code AO Chemistry S GFR Non- 64 ml/min/1.73sqm Invalid Interpretation Code AO Chemistry S PROon 05-06-2022 INR Coag (PPP) [Relative time] 1.0 {INR} Normal 0.9-1.2 [facility] ([place]) Comment on above: Result Comment: Robb dard Dose 2.0 - 3.0 High Dose 2.5 - 3.5 The recommended therapeutic range for oral anticoagulant therapy is: LOW RISK: Prophylaxis of venous thrombosis INR: 2.0 - 3.0 Treatment of pulmonary embolism 2.0 - 3.0 Prevention of systemic embolism 2.0 - 3.0 HIGH RISK: Mechanical prosthetic valves 2.5 - 3.5 Performed By: #### P RO, APTT, BMP, GFR ####[address] [place], [place] [address] PT Coag (PPP) [Time] 11.3 s Normal 9.7-13.9 [facility] ([place]) Comment on above: Performed By: #### P RO, APTT, BMP, GFR ####[address] [place], [place] [address] Laboratory - Chemistry and C hemistry - challengeOrdered By: Franchesca Moreira on 04-23-2022 Free T4 [Mass/Vol] 1.11 ng/dL 0.76-1.46 [facility] No Panel InformationOrdered By: Franchesca Moreira on 04-23-2022 Free Triiodothyronine (T3) pg/dL 3.8 pg/mL 2.18-3.98 [facility] Thyroid Stimulating Hormone (TSH) 1.35 uIU/mL 0.358-3.74 [facility] Vitamin D 25-Hydroxy 36.3 ng/mL [facility] Comment on above: Vitamin D 25(OH) Sta tus Range Deficiency <20 ng/mL (50nmol/L) Insufficiency 20 - 30 ng/mL (50 - 75 nmol/L) Sufficiency 30 - 100 ng/mL (75 - 250 nmol/L) Toxicity >100 ng/mL (>250 nmol/L) Absolute lymphocyte countOrd ered By: Dr. Smith on 04-07-2022 Lymphocytes Auto (Unsp spec) [#/Vol] 2.11 10*3/uL 0.83-4.51 [facility] Basophil percentageOrdered B y: Dr. Smith on 04-07-2022 Basophils/100 WBC (Bld) 0.7 % 0-1 [facility] Eosinophils/100 WBC (Bld) 1.9 % 0-5 [facility] Neutrophils (Bld) [#/Vol] 5.8 10*3/uL 2.0-7.7 [facility] Neutrophils/100 WBC (Bld) 64.3 % 47-70 [facility] WBC (Bld) [#/Vol] 9.1 10*3/uL 4.4-11.0 [facility] Bilirubin [Mass/Vol] 0.50 mg/dL 0.20-1.00 [facility] Comment on above: For patients on eltr ombopag therapy, use of Dimension [place] TBIL is not recommended. Chloride [Moles/Vol] 108 mmol/L 98-107 [facility] Cholesterol [Mass/Vol] 127 mg/dL <200 [facility] Comment on above: <200 mg/dL Desirable 200-240 mg/dL Borderline >240 mg/dL High Risk Glucose [Mass/Vol] 117 mg/dL 74-106 [facility] Comment on above: Fasting Glucose resu lt from 100 to 125 mg/dL suggests IMPAIRED HOMEOSTASIS per A.D.A. criteria. Potassium [Moles/Vol] 4.5 mmol/L 3.5-5.1 [facility] Protein [Mass/Vol] 7.6 g/dL 6.4-8.2 [facility] Sodium [Moles/Vol] 138 mmol/L 136-145 [facility] Triglyceride [Mass/Vol] 105 mg/dL <199 [facility] Comment on above: The drugs N-Acetylcy steine and Metamizole may falsely depress this assay.Serum Triglycerides Reference Interval Normal <150 mg/dL Borderline high 150 - 199 mg/dL High 200 - 499 mg/dL Very High > or = 500 mg/dL Blood erythrocytes count (nu mber/volume)Ordered By: Dr. Smith on 04-07-2022 RBC (Bld) [#/Vol] 5.08 10*6/uL 4.6-6.2 [facility] Blood hemoglobin measurement (mass/volume)Ordered By: Dr. Smith on 04-07-2022 Hemoglobin (Bld) [Mass/Vol] 15.2 g/dL 13.0-16.5 [facility] Blood lymphocytes/100 leukoc ytesOrdered By: Dr. Smith on 04-07-2022 Lymphocytes/100 WBC (Bld) 23.3 % 19-41 [facility] Blood monocytes/100 leukocyt esOrdered By: Dr. Smith on 04-07-2022 Monocytes/100 WBC (Bld) 9.5 % 0-10 [facility] Blood platelet mean volumeOr dered By: Dr. Smith on 04-07-2022 Platelet mean volume (Bld) [Entitic vol] 9.5 fL 6.2-12.0 [facility] Determination of erythrocyte mean corpuscular volume (MCV)Ordered By: Dr. Smith on 04-07-2022 MCV (RBC) [Entitic vol] 90.9 fL 80-94 [facility] Direct bilirubinOrdered By: Dr. Smith on 04-07-2022 Bilirubin.direct [Mass/Vol] 0.18 mg/dL 0.00-0.30 [facility] Hematocrit Auto (Bld) [Volum e fraction]Ordered By: Dr. Smith on 04-07-2022 Hematocrit (Bld) [Volume fraction] 46.2 % 40-54 [facility] INR in Blood by Coagulation assayOrdered By: Dr. Smith on 04-07-2022 INR Coag (Bld) [Relative time] 1.1 {INR} [facility] Laboratory - Chemistry and C hemistry - challengeOrdered By: Dr. Smith on 04-07-2022 ALP [Catalytic activity/Vol] 68 U/L 45-117 [facility] ALT [Catalytic activity/Vol] 41 U/L 16-61 [facility] CO2 [Moles/Vol] 23.0 mmol/L 21.0-32.0 [facility] Globulin (S) [Mass/Vol] 3.8 g/dL 2.2-4.2 [facility] Urea nitrogen/Creatinine [Mass ratio] 17.8 mg/mg 10-20 [facility] Laboratory - CoagulationOrde red By: Dr. Smith on 04-07-2022 aPTT Coag (Bld) [Time] 26.8 s 24.1-36.2 [facility] PT Coag (PPP) [Time] 13.7 s 11.7-14.9 [facility] Laboratory - Hematology and Cell countsOrdered By: Dr. Smith on 04-07-2022 Erythrocyte distribution width (RBC) [Entitic vol] 45.1 fL 35.1-43.9 [facility] Erythrocyte distribution width (RBC) [Ratio] 13.3 % 11.6-14.6 [facility] Immature granulocytes/100 WBC (Bld) 0.300 % 0.0-0.9 [facility] Comment on above: IG% - Immature Granu locytes (promyelocytes, myelocytes and metamyelocytes) > 1% indicates that a LEFT SHIFT is Present. MCH (RBC) [Entitic mass] 29.9 pg 27.0-32.0 [facility] Nucleated RBC/100 WBC (Bld) [Ratio] 0 % 0-5 [facility] MCHC Auto (RBC) [Mass/Vol]Or dered By: Dr. Smith on 04-07-2022 MCHC (RBC) [Mass/Vol] 32.9 g/dL 32-36 [facility] No Panel InformationOrdered By: Dr. Smith on 04-07-2022 Estimated GFR (MDRD) Amer 93 mL/min >60 [facility] Comment on above: GFR Calc Estimated GFR (MDRD) Non-Af Amer 77 mL/min >60 [facility] Comment on above: Non- GFR Calc Platelets bldOrdered By: Dr. Smith on 04-07-2022 Platelets (Bld) [#/Vol] 242 10*3/uL 150-450 [facility] Serum or plasma albumin heladio urement (mass/volume)Ordered By: Dr. Smith on 04-07-2022 Albumin [Mass/Vol] 3.8 g/dL 3.2-5.0 [facility] Serum or plasma calcium heladio urement (mass/volume)Ordered By: Dr. Smith on 04-07-2022 Calcium [Mass/Vol] 9.1 mg/dL 8.5-10.1 [facility] Serum or plasma cholesterol in HDL measurement (mass/volume)Ordered By: Dr. Smith on 04-07-2022 Cholesterol in HDL [Mass/Vol] 52 mg/dL >40 [facility] Comment on above: The drugs N-Acetylcy steine and Metamizole may falsely depress this assay. Reference Range HDL <40 mg/dL Low HDL Cholesterol HDL >or= 60 mg/dL High HDL Cholesterol Serum or plasma cholesterol in VLDL measurement (mass/volume)Ordered By: Dr. Smith on 04-07-2022 Cholesterol in VLDL [Mass/Vol] 21 mg/dL 5-40 [facility] Serum or plasma creatinine m easurement (mass/volume)Ordered By: Dr. Smith on 04-07-2022 Creatinine [Mass/Vol] 1.01 mg/dL 0.70-1.30 [facility] Comment on above: The validity of the calculated GFR & GFRAA in patients over 70 years has not been determined. Clinical correlation is essential. Serum or plasma low density lipoprotein (LDL) cholesterol measurement (mass/volume)Ordered By: Dr. Smith on 04-07-2022 Cholesterol in LDL [Mass/Vol] 54 mg/dL 0-130 [facility] Serum or plasma urea nitroge n measurement (mass/volume)Ordered By: Dr. Smith on 04-07-2022 Urea nitrogen [Mass/Vol] 18 mg/dL 7-18 [facility] Thin prep Papanicolaou smear with manual screeningOrdered By: Dr. Smith on 04-07-2022 Thin prep Papanicolaou smear with manual screening 23 U/L 15-37 [facility] Thin prep Papanicolaou smear with manual screening 7 5-15 [facility] Whole blood hemoglobin A1c/t otal hemoglobin ratio (mass fraction)Ordered By: Dr. Smith on 04-07-2022 HbA1c (Bld) [Mass fraction] 6.0 % 3.8-5.6 [facility] Comment on above: Normal < 5.7 % Predi abetic 5.7 - 6.4 % Diabetic >or= 6.5 % Please note range changes. Basophil percentageOrdered B y: Dr. Smith on 03-23-2022 Chloride [Moles/Vol] 107 mmol/L 98-107 [facility] Glucose [Mass/Vol] 114 mg/dL 74-106 [facility] Comment on above: Fasting Glucose resu lt from 100 to 125 mg/dL suggests IMPAIRED HOMEOSTASIS per A.D.A. criteria. Potassium [Moles/Vol] 4.5 mmol/L 3.5-5.1 [facility] Sodium [Moles/Vol] 139 mmol/L 136-145 [facility] WBC (Bld) [#/Vol] 8.3 10*3/uL 4.4-11.0 [facility] Blood erythrocytes count (nu mber/volume)Ordered By: Dr. Smith on 03-23-2022 RBC (Bld) [#/Vol] 5.01 10*6/uL 4.6-6.2 [facility] Blood hemoglobin measurement (mass/volume)Ordered By: Dr. Smith on 03-23-2022 Hemoglobin (Bld) [Mass/Vol] 15.6 g/dL 13.0-16.5 [facility] Blood platelet mean volumeOr dered By: Dr. Smith on 03-23-2022 Platelet mean volume (Bld) [Entitic vol] 9.5 fL 6.2-12.0 [facility] Determination of erythrocyte mean corpuscular volume (MCV)Ordered By: Dr. Smith on 03-23-2022 MCV (RBC) [Entitic vol] 91.6 fL 80-94 [facility] Hematocrit Auto (Bld) [Volum e fraction]Ordered By: Dr. Smith on 03-23-2022 Hematocrit (Bld) [Volume fraction] 45.9 % 40-54 [facility] INR in Blood by Coagulation assayOrdered By: Dr. Smith on 03-23-2022 INR Coag (Bld) [Relative time] 1.0 {INR} [facility] Laboratory - Chemistry and C hemistry - challengeOrdered By: Dr. Smith on 03-23-2022 CO2 [Moles/Vol] 25.0 mmol/L 21.0-32.0 [facility] Urea nitrogen/Creatinine [Mass ratio] 13.3 mg/mg 04-02 [facility] Laboratory - CoagulationOrde red By: Dr. Smith on 03-23-2022 aPTT Coag (Bld) [Time] 26.8 s 24.1-36.2 [facility] PT Coag (PPP) [Time] 13.3 s 11.7-14.9 [facility] Laboratory - Hematology and Cell countsOrdered By: Dr. Smith on 03-23-2022 Erythrocyte distribution width (RBC) [Entitic vol] 45.9 fL 35.1-43.9 [facility] Erythrocyte distribution width (RBC) [Ratio] 13.5 % 11.6-14.6 [facility] MCH (RBC) [Entitic mass] 31.1 pg 27.0-32.0 [facility] MCHC Auto (RBC) [Mass/Vol]Or dered By: Dr. Smith on 03-23-2022 MCHC (RBC) [Mass/Vol] 34.0 g/dL 32-36 [facility] No Panel InformationOrdered By: Dr. Smith on 03-23-2022 Estimated GFR (MDRD) Amer 81 mL/min >60 [facility] Comment on above: GFR Calc Estimated GFR (MDRD) Non-Af Amer 67 mL/min >60 [facility] Comment on above: Non- GFR Calc Platelets bldOrdered By: Dr. Smith on 03-23-2022 Platelets (Bld) [#/Vol] 216 10*3/uL 150-450 [facility] Serum or plasma calcium heladio urement (mass/volume)Ordered By: Dr. Smith on 03-23-2022 Calcium [Mass/Vol] 9.1 mg/dL 8.5-10.1 [facility] Serum or plasma creatinine m easurement (mass/volume)Ordered By: Dr. Smith on 03-23-2022 Creatinine [Mass/Vol] 1.13 mg/dL 0.70-1.30 [facility] Comment on above: The validity of the calculated GFR & GFRAA in patients over 70 years has not been determined. Clinical correlation is essential. Serum or plasma urea nitroge n measurement (mass/volume)Ordered By: Dr. Smith on 03-23-2022 Urea nitrogen [Mass/Vol] 15 mg/dL 7-18 [facility] Thin prep Papanicolaou smear with manual screeningOrdered By: Dr. Smith on 03-23-2022 Thin prep Papanicolaou smear with manual screening 7 5-15 [facility] Blood Glucose , Office ([phone])Ordered By: Pauline Beltran on 03-04-2022 Glucose Glucometer (BldC) [Moles/Vol] 111 1 Normal [facility]; [facility] Work Phone: HgA1C , Office ([phone])Ordere d By: Pauline Beltran on 03-04-2022 HbA1c (Bld) [Mass fraction] 5.8 % Normal 4.6 - 7.1 [facility]; [facility] Work Phone: CBC W/AUTO DIFF WBC ([id number])O rdered By: Housekeeper/Laundry Assistant on 02-25-2022 Basophils (Bld) [#/Vol] 0.1 10*3/uL Normal 0.0-0.2 [facility]; [facility] Work Phone: Basophils/100 WBC (Bld) 1 % Normal [facility]; [facility] Work Phone: Eosinophils (Bld) [#/Vol] 0.2 10*3/uL Normal 0.0-0.4 [facility]; [facility] Work Phone: Eosinophils/100 WBC (Bld) 3 % Normal [facility]; [facility] Work Phone: Erythrocyte distribution width (RBC) [Ratio] 13.1 % Normal 11.6-15.4 [facility]; [facility] Work Phone: Hematocrit (Bld) [Volume fraction] 45.2 % Normal 37.5-51.0 [facility]; [facility] Work Phone: Hemoglobin (Bld) [Mass/Vol] 14.9 g/dL Normal 13.0-17.7 [facility]; [facility] Work Phone: Immature granulocytes (Bld) [#/Vol] 0.0 10*3/uL Normal 0.0-0.1 [facility]; [facility] Work Phone: Immature granulocytes/100 WBC (Bld) 0 % Normal [facility]; [facility] Work Phone: Lymphocytes (Bld) [#/Vol] 2.2 10*3/uL Normal 0.7-3.1 [facility]; [facility] Work Phone: Lymphocytes/100 WBC (Bld) 29 % Normal [facility]; [facility] Work Phone: MCH (RBC) [Entitic mass] 29.6 pg Normal 26.6-33.0 [facility]; [facility] Work Phone: MCHC (RBC) [Mass/Vol] 33.0 g/dL Normal 31.5-35.7 [facility] prehensive Internal Medicine; [facility] Work Phone: MCV (RBC) [Entitic vol] 90 fL Normal 79-97 [facility]; [facility] Work Phone: Monocytes (Bld) [#/Vol] 0.8 10*3/uL Normal 0.1-0.9 [facility]; [facility] Work Phone: Monocytes/100 WBC (Bld) 11 % Normal [facility]; [facility] Work Phone: Neutrophils (Bld) [#/Vol] 4.2 10*3/uL Normal 1.4-7.0 [facility]; [facility] Work Phone: Neutrophils/100 WBC (Bld) 56 % Normal [facility]; [facility] Work Phone: Platelets (Bld) [#/Vol] 234 10*3/uL Normal 150-450 [facility]; [facility] Work Phone: RBC (Bld) [#/Vol] 5.03 10*6/uL Normal 4.14-5.80 [facility] ehensive Internal Medicine; [facility] Work Phone: WBC (Bld) [#/Vol] 7.5 10*3/uL Normal 3.4-10.8 [facility]; [facility] Work Phone: LIPID PANEL ([id number])Ordered B y: Housekeeper/Laundry Assistant on 02-25-2022 Cholesterol [Mass/Vol] 136 mg/dL Normal 100-199 [facility]; [facility] Work Phone: Cholesterol in HDL [Mass/Vol] 46 mg/dL Normal [facility]; [facility] Work Phone: Triglyceride [Mass/Vol] 101 mg/dL Normal 0-149 [facility]; [facility] Work Phone: LIPID PANEL ([id number]) 19 mg/dL Normal 5-40 [facility] Internal Medicine; [facility] Work Phone: LIPID PANEL ([id number]) 71 mg/dL Normal 0-99 [facility] Internal Medicine; [facility] Work Phone: LIPID PANEL ([id number]) 1.5 {ratio} Normal 0.0-3.6 [facility] Internal [facility]; [facility] Work Phone: METABOLIC PANEL, COMPREHENSI VE ([id number])Ordered By: Housekeeper/Laundry Assistant on 02-25-2022 Albumin [Mass/Vol] 4.4 g/dL Normal 3.7-4.7 [facility] Internal Medicine; [facility] Work Phone: Albumin/Globulin [Mass ratio] 1.6 {ratio} Normal 1.2-2.2 [facility]; [facility] Work Phone: ALP [Catalytic activity/Vol] 74 U/L Normal 44-121 [facility]; [facility] Work Phone: ALT [Catalytic activity/Vol] 35 U/L Normal 0-44 [facility]; [facility] Work Phone: AST [Catalytic activity/Vol] 28 U/L Normal 0-40 [facility] Internal Medicine; [facility] Work Phone: Bilirubin [Mass/Vol] 0.4 mg/dL Normal 0.0-1.2 [facility] Work Phone: Calcium [Mass/Vol] 9.6 mg/dL Normal 8.6-10.2 [facility] Work Phone: Chloride [Moles/Vol] 106 mmol/L Normal 96-106 [facility] Work Phone: CO2 [Moles/Vol] 20 mmol/L Normal 20-29 [facility]; [facility] Work Phone: Creatinine [Mass/Vol] 1.04 mg/dL Normal 0.76-1.27 [facility] prehensive [facility]; [facility] Work Phone: Globulin (S) [Mass/Vol] 2.7 g/dL Normal 1.5-4.5 [facility]; [facility] Work Phone: Glucose [Mass/Vol] 109 mg/dL Abnormal 65-99 [facility]; [facility] Work Phone: Potassium [Moles/Vol] 4.9 mmol/L Normal 3.5-5.2 [facility] prehensive Internal Medicine; [facility] Work Phone: Protein [Mass/Vol] 7.1 g/dL Normal 6.0-8.5 [facility]; [facility] Work Phone: Sodium [Moles/Vol] 143 mmol/L Normal 134-144 [facility]; [facility] Work Phone: Urea nitrogen [Mass/Vol] 19 mg/dL Normal 8-27 [facility]; [facility] Work Phone: Urea nitrogen/Creatinine [Mass ratio] 18 mg/mg Normal 10-24 [facility]; [facility] Work Phone: METABOLIC PANEL, COMPREHENSIVE ([id number]) 75 mL/min/1.[address] [facility]; [facility] Work Phone: MICROALBUMINOrdered By: Syst em Lobster Catcher on 02-25-2022 Albumin DL <= 20 mg/L (U) [Mass/Vol] 48.8 ug/mL Normal [facility]; [facility] Work Phone: Albumin/Creatinine (U) [Mass ratio] 34 {mg/g_creat} Abnormal 0-29 [facility]; [facility] Work Phone: Creatinine (U) [Mass/Vol] 142.9 mg/dL Normal [facility]; [facility] Work Phone: PSA (PROSTATE SPECIFIC ANTIG EN) (V76.44)Ordered By: Housekeeper/Laundry Assistant on 02-25-2022 Prostate specific Ag [Mass/Vol] 1.4 ng/mL Normal 0.0-4.0 [facility]; [facility] Work Phone: TSH ([id number])Ordered By: SRS Medical Systemse m Lobster Catcher on 02-25-2022 TSH Qn 1.870 {uIU/mL} Normal 0.450-4.50 0 [facility]; [facility] Work Phone: URINALYSIS, W/ MICRO ([id number]) Ordered By: Housekeeper/Laundry Assistant on 02-25-2022 Appearance (U) Clear Normal Comprehens [facility]; [facility] Work Phone: Bilirubin Ql (U) Negative Normal Comprehe nsive [facility]; [facility] Work Phone: Color (U) Yellow Normal [facility]; [facility] Work Phone: Glucose Ql (U) Negative Normal [facility]; [facility] Work Phone: Hemoglobin Ql (U) Negative Normal Compreh ensive [facility]; [facility] Work Phone: Ketones Ql (U) Negative Normal [facility]; [facility] Work Phone: Leukocyte esterase Test strip Ql (U) Negative Normal [facility]; [facility] Work Phone: Microscopic observation LM Nom (Urine sed) MICRON Normal [facility]; [facility] Work Phone: Microscopic observation LM Nom (Urine sed) See below: Normal [facility]; [facility] Work Phone: Nitrite Ql (U) Negative Normal [facility]; [facility] Work Phone: pH (U) 5.5 [pH] Normal 5.0-7.5 [facility]; [facility] Work Phone: Protein Ql (U) Trace Normal Comprehens [facility]; [facility] Work Phone: Specific gravity (U) [Rel density] 1.025 1 Normal 1.005-1.03 0 [facility]; [facility] Work Phone: Urobilinogen (U) [Mass/Vol] 1.0 mg/dL Normal 0.2-1.0 [facility]; [facility] Work Phone: Basophil percentageon 2021 Basophil percentage 3.2 mg/dL 2.5-4.9 [facility] Work Phone: Chloride [Moles/Vol] 110 mmol/L 98-107 [facility] Work Phone: Glucose [Mass/Vol] 124 mg/dL 74-106 [facility] Work Phone: Comment on above: Fasting Glucose resu lt from 100 to 125 mg/dL suggests IMPAIRED HOMEOSTASIS per A.D.A. criteria. Potassium [Moles/Vol] 4.4 mmol/L 3.5-5.1 [facility] Work Phone: Sodium [Moles/Vol] 139 mmol/L 136-145 [facility] Work Phone: WBC (Bld) [#/Vol] 8.9 10*3/uL 4.4-11.0 [facility] Work Phone: Blood erythrocytes count (nu mber/volume)on 11-12-2021 RBC (Bld) [#/Vol] 4.95 10*6/uL 4.6-6.2 [facility] Work Phone: Blood hemoglobin measurement (mass/volume)on 11-12-2021 Hemoglobin (Bld) [Mass/Vol] 14.9 g/dL 13.0-16.5 [facility] Work Phone: Blood platelet mean volumeon 11-12-2021 Platelet mean volume (Bld) [Entitic vol] 9.2 fL 6.2-12.0 [facility] Work Phone: Determination of erythrocyte mean corpuscular volume (MCV)on 06-01-2022 MCV (RBC) [Entitic vol] 91.1 fL 80-94 [facility] Work Phone: Hematocrit Auto (Bld) [Volum e fraction]on 11-12-2021 Hematocrit (Bld) [Volume fraction] 45.1 % 40-54 [facility] Work Phone: Laboratory - Chemistry and C hemistry - challengeon 11-12-2021 CO2 [Moles/Vol] 23.0 mmol/L 21.0-32.0 [facility] Work Phone: Urea nitrogen/Creatinine [Mass ratio] 20.0 mg/mg 10-20 [facility] Work Phone: Laboratory - Hematology and Cell countson 11-12-2021 Erythrocyte distribution width (RBC) [Entitic vol] 44.6 fL 35.1-43.9 [facility] Work Phone: Erythrocyte distribution width (RBC) [Ratio] 13.2 % 11.6-14.6 [facility] Work Phone: MCH (RBC) [Entitic mass] 30.1 pg 27.0-32.0 [facility] Work Phone: MCHC Auto (RBC) [Mass/Vol]on 11-12-2021 MCHC (RBC) [Mass/Vol] 33.0 g/dL 32-36 [facility] Work Phone: No Panel Informationon 11-12 Estimated Creatinine Clearance Calc 65.90 ml/min [facility] Work Phone: Estimated GFR (MDRD) Amer 94 mL/min >60 [facility] Work Phone: Comment on above: GFR Calc Estimated GFR (MDRD) Non-Af Amer 78 mL/min >60 [facility] Work Phone: Comment on above: Non- GFR Calc Platelets bldon 11-12-2021 Platelets (Bld) [#/Vol] 225 10*3/uL 150-450 [facility] Work Phone: Serum or plasma albumin heladio urement (mass/volume)on 11-12-2021 Albumin [Mass/Vol] 3.8 g/dL 3.2-5.0 [facility] Work Phone: Serum or plasma calcium heladio urement (mass/volume)on 11-12-2021 Calcium [Mass/Vol] 8.7 mg/dL 8.5-10.1 [facility] Work Phone: Serum or plasma creatinine m easurement (mass/volume)on 11-12-2021 Creatinine [Mass/Vol] 1.00 mg/dL 0.70-1.30 [facility] Work Phone: Comment on above: The validity of the calculated GFR & GFRAA in patients over 70 years has not been determined. Clinical correlation is essential. Serum or plasma urea nitroge n measurement (mass/volume)on 11-12-2021 Urea nitrogen [Mass/Vol] 20 mg/dL 7-18 [facility] Work Phone: Blood Glucose , Office ([phone])Ordered By: Pauline Beltran on 10-31-2021 Glucose Glucometer (BldC) [Moles/Vol] 124 1 Normal [facility]; [facility] Work Phone: COVID 19 (ONLY) RAPID ([id number] )Ordered By: Pauline Beltran on 10-31-2021 SARS-CoV-2 (COVID-19) RNA LEON+probe Ql (Unsp spec) Negative Normal [facility]; [facility] Work Phone: COVID 19 (ONLY) RAPID ([id number]) Negative Normal [facility]; [facility] Work Phone: HgA1C , Office ([phone])Ordere d By: Pauline Beltran on 10-31-2021 HbA1c (Bld) [Mass fraction] 5.9 % Normal 4.6 - 7.1 [facility]; [facility] Work Phone: Absolute lymphocyte counton 10-17-2021 Lymphocytes Auto (Unsp spec) [#/Vol] 1.91 10*3/uL 0.83-4.51 [facility] Work Phone: Basophil percentageon 2021 Basophils/100 WBC (Bld) 0.7 % 0-1 [facility] Work Phone: Chloride [Moles/Vol] 110 mmol/L 98-107 [facility] Work Phone: Eosinophils/100 WBC (Bld) 2.6 % 0-5 [facility] Work Phone: Glucose [Mass/Vol] 123 mg/dL 74-106 [facility] Work Phone: Comment on above: Fasting Glucose resu lt from 100 to 125 mg/dL suggests IMPAIRED HOMEOSTASIS per A.D.A. criteria. Neutrophils (Bld) [#/Vol] 6.4 10*3/uL 2.0-7.7 [facility] Work Phone: Neutrophils/100 WBC (Bld) 67.4 % 47-70 [facility] Work Phone: Potassium [Moles/Vol] 4.5 mmol/L 3.5-5.1 [facility] Work Phone: Comment on above: Slight Hemolysis, Re sult may be falsely increased. Sodium [Moles/Vol] 138 mmol/L 136-145 [facility] Work Phone: WBC (Bld) [#/Vol] 9.5 10*3/uL 4.4-11.0 [facility] Work Phone: Blood erythrocytes count (nu mber/volume)on 10-17-2021 RBC (Bld) [#/Vol] 5.25 10*6/uL 4.6-6.2 [facility] Work Phone: Blood hemoglobin measurement (mass/volume)on 10-17-2021 Hemoglobin (Bld) [Mass/Vol] 15.7 g/dL 13.0-16.5 [facility] Work Phone: Blood lymphocytes/100 leukoc yteson 10-17-2021 Lymphocytes/100 WBC (Bld) 20.2 % 19-41 [facility] Work Phone: Blood monocytes/100 leukocyt eson 10-17-2021 Monocytes/100 WBC (Bld) 8.7 % 0-10 [facility] Work Phone: Blood platelet mean volumeon 10-17-2021 Platelet mean volume (Bld) [Entitic vol] 9.6 fL 6.2-12.0 [facility] Work Phone: Determination of erythrocyte mean corpuscular volume (MCV)on 10-17-2021 MCV (RBC) [Entitic vol] 91.4 fL 80-94 [facility] Work Phone: Hematocrit Auto (Bld) [Volum e fraction]on 10-17-2021 Hematocrit (Bld) [Volume fraction] 48.0 % 40-54 [facility] Work Phone: Laboratory - Chemistry and C hemistry - challengeon 10-17-2021 CO2 [Moles/Vol] 24.0 mmol/L 21.0-32.0 [facility] Work Phone: Free T4 [Mass/Vol] 1.04 ng/dL 0.76-1.46 [facility] Work Phone: Urea nitrogen/Creatinine [Mass ratio] 19.1 mg/mg 10-20 [facility] Work Phone: Laboratory - Hematology and Cell countson 10-17-2021 Erythrocyte distribution width (RBC) [Entitic vol] 45.1 fL 35.1-43.9 [facility] Work Phone: Erythrocyte distribution width (RBC) [Ratio] 13.2 % 11.6-14.6 [facility] Work Phone: Immature granulocytes/100 WBC (Bld) 0.400 % 0.0-0.9 [facility] Work Phone: Comment on above: IG% - Immature Granu locytes (promyelocytes, myelocytes and metamyelocytes) > 1% indicates that a LEFT SHIFT is Present. MCH (RBC) [Entitic mass] 29.9 pg 27.0-32.0 [facility] Work Phone: Nucleated RBC/100 WBC (Bld) [Ratio] 0 % 0-5 [facility] Work Phone: MCHC Auto (RBC) [Mass/Vol]on 10-17-2021 MCHC (RBC) [Mass/Vol] 32.7 g/dL 32-36 [facility] Work Phone: No Panel Informationon 10-17 Estimated GFR (MDRD) Amer 94 mL/min >60 [facility] Work Phone: Comment on above: GFR Calc Estimated GFR (MDRD) Non-Af Amer 78 mL/min >60 [facility] Work Phone: Comment on above: Non- GFR Calc Platelets bldon 10-17-2021 Platelets (Bld) [#/Vol] 233 10*3/uL 150-450 [facility] Work Phone: Serum or plasma calcium heladio urement (mass/volume)on 10-17-2021 Calcium [Mass/Vol] 9.1 mg/dL 8.5-10.1 [facility] Work Phone: Serum or plasma creatinine m easurement (mass/volume)on 10-17-2021 Creatinine [Mass/Vol] 1.00 mg/dL 0.70-1.30 [facility] Work Phone: Comment on above: The validity of the calculated GFR & GFRAA in patients over 70 years has not been determined. Clinical correlation is essential. Serum or plasma urea nitroge n measurement (mass/volume)on 10-17-2021 Urea nitrogen [Mass/Vol] 19 mg/dL 7-18 [facility] Work Phone: Thin prep Papanicolaou smear with manual screeningon 10-17-2021 Thin prep Papanicolaou smear with manual screening 4 5-15 [facility] Work Phone: Basophil percentageon 2021 Bilirubin [Mass/Vol] 0.30 mg/dL 0.20-1.00 [facility] Work Phone: Comment on above: For patients on eltr ombopag therapy, use of Dimension [place] TBIL is not recommended. Cholesterol [Mass/Vol] 118 mg/dL <200 [facility] Work Phone: Comment on above: <200 mg/dL Desirable 200-240 mg/dL Borderline >240 mg/dL High Risk Protein [Mass/Vol] 7.3 g/dL 6.4-8.2 [facility] Work Phone: Triglyceride [Mass/Vol] 88 mg/dL [facility] Work Phone: Comment on above: The drugs N-Acetylcy steine and Metamizole may falsely depress this assay.Serum Triglycerides Reference Interval Normal <150 mg/dL Borderline high 150 - 199 mg/dL High 200 - 499 mg/dL Very High > or = 500 mg/dL Direct bilirubinon Bilirubin.direct [Mass/Vol] 0.09 mg/dL 0.00-0.30 [facility] Work Phone: Laboratory - Chemistry and C hemistry - challengeon 10-09-2021 ALP [Catalytic activity/Vol] 77 U/L 45-117 [facility] Work Phone: ALT [Catalytic activity/Vol] 39 U/L 16-61 [facility] Work Phone: Globulin (S) [Mass/Vol] 3.6 g/dL 2.2-4.2 [facility] Work Phone: Serum or plasma albumin heladio urement (mass/volume)on 10-09-2021 Albumin [Mass/Vol] 3.7 g/dL 3.2-5.0 [facility] Work Phone: Serum or plasma cholesterol in HDL measurement (mass/volume)on 10-09-2021 Cholesterol in HDL [Mass/Vol] 47 mg/dL [facility] Work Phone: Comment on above: The drugs N-Acetylcy steine and Metamizole may falsely depress this assay. Reference Range HDL <40 mg/dL Low HDL Cholesterol HDL >or= 60 mg/dL High HDL Cholesterol Serum or plasma cholesterol in VLDL measurement (mass/volume)on 10-09-2021 Cholesterol in VLDL [Mass/Vol] 18 mg/dL 5-40 [facility] Work Phone: Serum or plasma low density lipoprotein (LDL) cholesterol measurement (mass/volume)on 10-09-2021 Cholesterol in LDL [Mass/Vol] 53 mg/dL 0-130 [facility] Work Phone: Thin prep Papanicolaou smear with manual screeningon 10-09-2021 Thin prep Papanicolaou smear with manual screening 34 U/L 15-37 [facility] Work Phone: Comment on above: Slight Hemolysis, Re sult may be falsely increased. Blood Glucose , Office ([phone])Ordered By: Prema Cortés on 07-02-2021 Glucose Glucometer (BldC) [Moles/Vol] 108 1 Normal [facility]; [facility] Work Phone: HgA1C , Office ([phone])Ordere d By: Prema Cortés on 07-02-2021 HbA1c (Bld) [Mass fraction] 5.8 % Normal 4.6 - 7.1 [facility]; [facility] Work Phone: CBC WITH MANUAL DIFF ([id number]) Ordered By: Housekeeper/Laundry Assistant on 06-25-2021 Basophils (Bld) [#/Vol] 0.1 10*3/uL Normal 0.0-0.2 [facility]; [facility] Work Phone: Comment on above: PATIENT WAS FASTINGP ERFORMED BY: TERRELL LabcoNorth Gate VillageKbwhdm8569 [address] Klee Data SystemSelect Specialty Hospital [facility] [id number] Basophils/100 WBC (Bld) 1 % Normal [facility]; [facility] Work Phone: Comment on above: PATIENT WAS FASTINGP ERFORMED BY: [id number] KonkuraFormerly [facility] [id number] Eosinophils (Bld) [#/Vol] 0.2 10*3/uL Normal 0.0-0.4 [facility]; [facility] Work Phone: Comment on above: PATIENT WAS FASTINGP ERFORMED BY: Lab[facility] [id number] Engel RoadReplaced By [facility] [place]in [place] [id number] Eosinophils/100 WBC (Bld) 3 % Normal [facility]; [facility] Work Phone: Comment on above: PATIENT WAS FASTINGP ERFORMED BY: [facility] [id number] [address] [facility] [place] [id number] Erythrocyte distribution width (RBC) [Ratio] 12.9 % Normal 11.6-15.4 [facility]; [facility] Work Phone: Comment on above: PATIENT WAS FASTINGP ERFORMED BY: LabMcKenzie [facility] Hospital6370 Engel RoadSelect Specialty Hospital [facility] [id number] Hematocrit (Bld) [Volume fraction] 43.7 % Normal 37.5-51.0 [facility]; [facility] Work Phone: Comment on above: PATIENT WAS FASTINGP ERFORMED BY: [facility] [facility] [id number] Hemoglobin (Bld) [Mass/Vol] 14.9 g/dL Normal 13.0-17.7 [facility]; [facility] Work Phone: Comment on above: PATIENT WAS FASTINGP ERFORMED BY: [facility] [id number] [address] [facility] [place] [id number] Immature granulocytes (Bld) [#/Vol] 0.0 10*3/uL Normal 0.0-0.1 [facility]; [facility] Work Phone: Comment on above: PATIENT WAS FASTINGP ERFORMED BY: [facility] [id number] Eng[address] RoadReplaced By [facility]in [place] [id number] Immature granulocytes/100 WBC (Bld) 0 % Normal [facility]; [facility] Work Phone: Comment on above: PATIENT WAS FASTINGP ERFORMED BY: LabMcKenzie [facility] Hospital6370 Engel Roadblin [place] [id number] Lymphocytes (Bld) [#/Vol] 2.1 10*3/uL Normal 0.7-3.1 [facility]; [facility] Work Phone: Comment on above: PATIENT WAS FASTINGP ERFORMED BY: TERRELL [facility] [id number] Engel RoadDublin [place] [id number] Lymphocytes/100 WBC (Bld) 26 % Normal [facility]; [facility] Work Phone: Comment on above: PATIENT WAS FASTINGP ERFORMED BY: CB [facility] [id number] Engel RoadDublin [place] [id number] MCH (RBC) [Entitic mass] 30.2 pg Normal 26.6-33.0 [facility]; [facility] Work Phone: Comment on above: PATIENT WAS FASTINGP ERFORMED BY: CB [facility] [id number] Engel RoadDublin [place] [id number] MCHC (RBC) [Mass/Vol] 34.1 g/dL Normal 31.5-35.7 [facility] prehensive Internal Medicine; [facility] Work Phone: Comment on above: PATIENT WAS FASTINGP ERFORMED BY: TERRELL [facility] Tgdkdk9413 [address] RoadDublin [place] [id number] MCV (RBC) [Entitic vol] 89 fL Normal 79-97 [facility]; [facility] Work Phone: Comment on above: PATIENT WAS FASTINGP ERFORMED BY: TERRELL [facility] Askvve2837 [address]el RoadDublin [place] [id number] Monocytes (Bld) [#/Vol] 0.8 10*3/uL Normal 0.1-0.9 [facility]; [facility] Work Phone: Comment on above: PATIENT WAS FASTINGP ERFORMED BY: CB [facility] Tbcmca2044 [address] RoadDublin [place] [id number] Monocytes/100 WBC (Bld) 10 % Normal [facility]; [facility] Work Phone: Comment on above: PATIENT WAS FASTINGP ERFORMED BY: CB [facility] Iitxby6114 [address] RoadDublin [place] [id number] Neutrophils (Bld) [#/Vol] 4.9 10*3/uL Normal 1.4-7.0 [facility]; [facility] Work Phone: Comment on above: PATIENT WAS FASTINGP ERFORMED BY: TERRELL [facility] Ntvvak5289 [address] RoadDublin [place] [id number] Neutrophils/100 WBC (Bld) 60 % Normal [facility]; [facility] Work Phone: Comment on above: PATIENT WAS FASTINGP ERFORMED BY: TERRELL [facility] Ydqlxq1191 [address] RoadDublin [place] [id number] Platelets (Bld) [#/Vol] 258 10*3/uL Normal 150-450 [facility]; [facility] Work Phone: Comment on above: PATIENT WAS FASTINGP ERFORMED BY: TERRELL [facility] Yvynui2271 [address] RoadDublin [place] [id number] RBC (Bld) [#/Vol] 4.93 10*6/uL Normal 4.14-5.80 [facility]; [facility] Work Phone: Comment on above: PATIENT WAS FASTINGP ERFORMED BY: TERRELL [facility] Bhenzv5654 [address] RoadDublin [place] [id number] WBC (Bld) [#/Vol] 8.1 10*3/uL Normal 3.4-10.8 [facility]; [facility] Work Phone: Comment on above: PATIENT WAS FASTINGP ERFORMED BY: TERRELL [facility] Zqusjo2833 [address] RoadDublin [place] [id number] METABOLIC PANEL, COMPREHENSI VE (61176)Ordered By: Housekeeper/Laundry Assistant on 06-25-2021 Albumin [Mass/Vol] 4.3 g/dL Normal 3.7-4.7 [facility]; [facility] Work Phone: Comment on above: PATIENT WAS FASTINGP ERFORMED BY: TERRELL [facility] Hlrzpb6273 [address] RoadDublin [place] [id number] Albumin/Globulin [Mass ratio] 1.9 {ratio} Normal 1.2-2.2 [facility]; [facility] Work Phone: Comment on above: PATIENT WAS FASTINGP ERFORMED BY: TERRELL [facility] Qhupsh3233 [address] RoadDublin [place] [id number] ALP [Catalytic activity/Vol] 80 U/L Normal 44-121 [facility]; [facility] Work Phone: Comment on above: Please note refere nce interval change PATIENT WAS FASTINGP ERFORMED BY: [facility] Pwownn4944 [address] RoadDublin [place] [id number] ALT [Catalytic activity/Vol] 30 U/L Normal 0-44 [facility]; [facility] Work Phone: Comment on above: PATIENT WAS FASTINGP ERFORMED BY: [facility] Ujtnby1200 [address] RoadDublin [place] [id number] AST [Catalytic activity/Vol] 30 U/L Normal 0-40 [facility]; [facility] Work Phone: Comment on above: PATIENT WAS FASTINGP ERFORMED BY: [facility] Idrzyu8681 [address] RoadDublin [place] [id number] Bilirubin [Mass/Vol] 0.3 mg/dL Normal 0.0-1.2 Comp rehensive [facility]; [facility] Work Phone: Comment on above: PATIENT WAS FASTINGP ERFORMED BY: [facility] Ttuxgh6517 [address] RoadDublin [place] [id number] Calcium [Mass/Vol] 9.5 mg/dL Normal 8.6-10.2 [facility]; [facility] Work Phone: Comment on above: PATIENT WAS FASTINGP ERFORMED BY: [facility] Krxfdg6699 [address] RoadDublin [place] [id number] Chloride [Moles/Vol] 109 mmol/L Abnormal 96-106 [facility] re[facility]; [facility] Work Phone: Comment on above: PATIENT WAS FASTINGP ERFORMED BY: [facility] Lohapa8600 [address]Dublin [place] [id number] CO2 [Moles/Vol] 22 mmol/L Normal 20-29 [facility]; [facility] Work Phone: Comment on above: PATIENT WAS FASTINGP ERFORMED BY: TERRELL Crooks[address] [id number] Creatinine [Mass/Vol] 0.95 mg/dL Normal 0.76-1.27 [facility] prehensive Internal Medicine; [facility] Work Phone: Comment on above: PATIENT WAS FASTINGP ERFORMED BY: Jluis Quanlin[address] [id number] GFR/1.73 sq M.predicted among blacks CKD-EPI (S/P/Bld) [Vol rate/Area] 91 mL/min/1.73 Normal [facility]; [facility] Work Phone: Comment on above: In accordance with recommendations from the NKF-ASN Task force, [facility] is in the process of updating its eGFR calculation to the 2020 CKD-EPI creatinine equation that estimates kidney function without a race variable. PATIENT WAS FASTINGP ERFORMED BY: Jluis Quanlin[address] [id number] GFR/1.73 sq M.predicted among non-blacks CKD-EPI (S/P/Bld) [Vol rate/Area] 79 mL/min/1.73 Normal [facility]; [facility] Work Phone: Comment on above: PATIENT WAS FASTINGP ERFORMED BY: TERRELL Durand Bhsftk[address] [id number] Globulin (S) [Mass/Vol] 2.3 g/dL Normal 1.5-4.5 [facility]; [facility] Work Phone: Comment on above: PATIENT WAS FASTINGP ERFORMED BY: [facility] Or[address]qow[address] [id number] Glucose [Mass/Vol] 100 mg/dL Abnormal 65-99 [facility]; [facility] Work Phone: Comment on above: PATIENT WAS FASTINGP ERFORMED BY: [facility] Hcissh[address] [id number] Potassium [Moles/Vol] 4.6 mmol/L Normal 3.5-5.2 [facility]; [facility] Work Phone: Comment on above: PATIENT WAS FASTINGP ERFORMED BY: [facility] Uehmae2845 [address] RoadDublin [place] [id number] Protein [Mass/Vol] 6.6 g/dL Normal 6.0-8.5 [facility]; [facility] Work Phone: Comment on above: PATIENT WAS FASTINGP ERFORMED BY: CB [facility] Hkfccd5349 [address] RoadDublin [place] [id number] Sodium [Moles/Vol] 145 mmol/L Abnormal 134-144 [facility]; [facility] Work Phone: Comment on above: PATIENT WAS FASTINGP ERFORMED BY: [facility] Salmyd8848 [address] RoadDublin [place] [id number] Urea nitrogen [Mass/Vol] 14 mg/dL Normal 8-27 [facility]; [facility] Work Phone: Comment on above: PATIENT WAS FASTINGP ERFORMED BY: [facility] Ptorso2427 [address] RoadDublin [place] [id number] Urea nitrogen/Creatinine [Mass ratio] 15 mg/mg Normal 10-24 [facility]; [facility] Work Phone: Comment on above: PATIENT WAS FASTINGP ERFORMED BY: [facility] Frxwny[address] [facility]bl[facility] [place] [id number] TSH (THYROID STIMULATING HOR ANGELICA) (27247)Ordered By: Housekeeper/Laundry Assistant on 06-25-2021 TSH Qn 1.830 {uIU/mL} Normal 0.450-4.50 0 [facility]; [facility] Work Phone: Comment on above: PATIENT WAS FASTINGP ERFORMED BY: [facility] Trwwcg9982 [address] RoadDublin [place] [id number] Blood Glucose , Office ([phone])Ordered By: Prema Cortés on 03-06-2021 Glucose Glucometer (BldC) [Moles/Vol] 137 1 Normal [facility]; [facility] Work Phone: HgA1C , Office ([phone])Ordere d By: Prema Cortés on 03-06-2021 HbA1c (Bld) [Mass fraction] 5.6 % Normal 4.6 - 7.1 [facility]; [facility] Work Phone: HGB A1C ([phone])Ordered By: Yuval ystem Lobster Catcher on 02-24-2021 HbA1c (Bld) [Mass fraction] 6.4 % Abnormal 4.8-5.6 [facility]; [facility] Work Phone: Comment on above: . Prediabetes: 5.7 - 6.4 Diabetes: >6.4 Glycemic control for adults with diabetes: <7.0 Test(s) 819621-KOA-N ; 612289-PDF-U; 743982-Museyhsojotez; 099122-Uljpuggryhs, Total; 849568-RAV-C (Total); 475121-Seias LDL-P; 823757-GMO Size; 464077-FB-MX Scorewas developed and its performance characteristics determinedby [employer]. It has not been cleared or approved by the Foodand Drug Administration.PATIENT WAS FASTINGPERFORMED BY: [employer] [facility] [id number] BY: [employer] [facility] [id number] NMR Profile (07004)Ordered B y: Housekeeper/Laundry Assistant on 02-24-2021 Cholesterol [Mass/Vol] 143 mg/dL Normal 100-199 [facility]; [facility] Work Phone: Comment on above: Test(s) 974920-SHS-I ; 072768-CHP-E; 424934-Dhsslvunydrhz; 637984-Idflyairbjx, Total; 014838-EOP-K (Total); 263620-Zcumx LDL-P; 755172-ZBK Size; 861414-IY-JV Scorewas developed and its performance characteristics determinedby [employer]. It has not been cleared or approved by the Foodand Drug Administration.PATIENT WAS FASTINGPERFORMED BY: [employer] [id number] BY: ABL Solutionsin [place] [id number] Lipoprotein.alpha [Moles/Vol] 39.7 umol/L Normal [facility]; [facility] Work Phone: Comment on above: Test(s) 239538-LJB-F ; 751422-CTG-T; 873026-Pbqyjfooxeurv; 790515-Bxlpxogyxzk, Total; 783691-XQY-A (Total); 470747-Koaop LDL-P; 022493-NVO Size; 058743-TN-SC Scorewas developed and its performance characteristics determinedby [employer]. It has not been cleared or approved by the Foodand Drug Administration.PATIENT WAS FASTINGPERFORMED BY: [employer] [id number] BY: TERRELL JumpStartAncora Psychiatric HospitalNbrfaj[address] [id number] Lipoprotein.beta.subp article [Entitic length] 20.6 nm Normal [facility]; [facility] Work Phone: Comment on above: INTERPRETATIVE INFORMATION PARTICLE CONCENTRATION AND SIZE <--Lower CVD Risk Higher CVD Risk--> LDL AND HDL PARTICLES Percentile in Reference Population HDL-P (total) High 75th 50th 25th Low >34.9 34.9 30.5 26.7 <26.7 . Small LDL-P Low 25th 50th 75th High <117 117 527 839 >839 . LDL Size <-Large (Pattern A)-> <-Small (Pattern B)-> 23.0 20.6 20.5 19.0 Small LDL-P and LDL Size are associated with CVD risk, but not afterLDL-P is taken into account. Test(s) 458887-URG-V ; 496320-PAC-Z; 201439-Dpsltjuhvkwpj; 211353-Jvpfenkvukh, Total; 099981-CON-R (Total); 112300-Qkhoe LDL-P; 078765-JZZ Size; 476028-EF-JP Scorewas developed and its performance characteristics determinedby [employer]. It has not been cleared or approved by the Foodand Drug Administration.PATIENT WAS FASTINGPERFORMED BY: [employer] [id number] BY: JumpStartAncora Psychiatric HospitalJwbeot[address] [id number] Lipoprotein.beta.subp article [Moles/Vol] 760 nmol/L Normal Comprehensiv e [facility]; [facility] Work Phone: Comment on above: Low < 1000 Moderate 1000 - 1299 Borderline-High 1300 - 1599 High 1600 - 2000 Very High > 2000 Test(s) 237440-ZTG-H ; 499803-QQM-Z; 705258-Ltyiwwbnlknjx; 804178-Yofacgapkmc, Total; 142849-OKM-M (Total); 252704-Kpqtx LDL-P; 382881-XQN Size; 101546-JU-CN Scorewas developed and its performance characteristics determinedby [employer]. It has not been cleared or approved by the Foodand Drug Administration.PATIENT WAS FASTINGPERFORMED BY: Jump[employer] [id number] BY: JumpStartAncora Psychiatric HospitalJnhsfj[address] [id number] Lipoprotein.beta.subp article.small [Moles/Vol] 244 nmol/L Normal [facility]; [facility] Work Phone: Comment on above: Test(s) 516027-BSM-Q ; 987172-CCP-Y; 250166-Wfmesrbporkzb; 314787-Njupezegwse, Total; 470094-SIA-E (Total); 512663-Egxrr LDL-P; 695130-GYO Size; 831231-UX-IZ Scorewas developed and its performance characteristics determinedby [employer]. It has not been cleared or approved by the Foodand Drug Administration.PATIENT WAS FASTINGPERFORMED BY: [facility] [address] [id number] BY: [employer] Enxqdt4971 KonkuraFormerly [facility] [id number] Triglyceride [Mass/Vol] 101 mg/dL Normal 0-149 [facility]; [facility] Work Phone: Comment on above: Test(s) 755083-EGB-E ; 317352-LDS-F; 215041-Xssoavgxoaese; 193607-Rbjcxxuqson, Total; 601215-HVZ-S (Total); 656330-Pvizs LDL-P; 186517-UAT Size; 969819-XE-GZ Scorewas developed and its performance characteristics determinedby [employer]. It has not been cleared or approved by the Foodand Drug Administration.PATIENT WAS FASTINGPERFORMED BY: [facility] [address] [id number] BY: Vyyo70 [facility]elW[facility] [id number] NMR Profile (36417) 70 mg/dL Normal 0-99 [facility]; [facility] Work Phone: Comment on above: . Optimal < 100 Abov e optimal 100 - 129 Borderline 130 - 159 High 160 - 189 Very high > 189 . Test(s) 735565-KUH-R ; 216614-HMO-W; 033738-Xwbppmxfxobyj; 529431-Fslfxjmkpfl, Total; 903863-VBU-I (Total); 768159-Jjswi LDL-P; 124186-RCZ Size; 212535-SZ-OZ Scorewas developed and its performance characteristics determinedby [employer]. It has not been cleared or approved by the Foodand Drug Administration.PATIENT WAS FASTINGPERFORMED BY: [facility] [address] [id number] BY: Sjapper Qzkeoa[address] [id number] NMR Profile (72365) 54 mg/dL Normal [facility] ehensive Internal Medicine; [facility] Work Phone: Comment on above: Test(s) 094571-DVX-X ; 471495-ZBS-D; 209240-Vsfjddjyvrfls; 729107-Yrzuypwxmrz, Total; 394994-IHB-T (Total); 287457-Nudum LDL-P; 109022-LUA Size; 873475-EB-LV Scorewas developed and its performance characteristics determinedby [facility]itehann[facility]. It has not been cleared or approved by the Foodand Drug Administration.PATIENT WAS FASTINGPERFORMED BY: [address] [id number] BY: [facility] [id number] NMR Profile (79256) 101 mg/dL Normal 0-149 [facility]; [facility] Work Phone: NMR Profile (82317) 143 mg/dL Normal 100-199 [facility]; [facility] Work Phone: HEPATITIS C ANTIBODY (18976) Ordered By: Housekeeper/Laundry Assistant on 01-09-2021 HCV Ab Signal/Cutoff IA [Rel units/Vol] {ratio} Normal 0.0-0.9 [facility]; [facility] Work Phone: Comment on above: Negative: < 0.8 Inde terminate: 0.8 - 0.9 Positive: > 0.9 . The CDC recommends that a positive HCV antibody result be followed up with a HCV Nucleic Acid Amplification test (234881). PATIENT NOT FASTINGP ERFORMED BY: [facility] [id number] PSA (PROSTATE SPECIFIC ANTIG EN) (V76.44)Ordered By: Housekeeper/Laundry Assistant on 01-09-2021 Prostate specific Ag [Mass/Vol] 1.1 ng/mL Normal 0.0-4.0 [facility]; [facility] Work Phone: Comment on above: Actual Experience ECLIA methodol ogy. .According to the [employer], Serum PSA shoulddecrease and remain at undetectable levels after radicalprostatectomy. The AUA defines biochemical recurrence as an initialPSA value 0.2 ng/mL or greater followed by a subsequent confirmatoryPSA value 0.2 ng/mL or greater.Values obtained with different assay methods or kits cannot be usedinterchangeably. Results cannot be interpreted as absolute evidenceof the presence or absence of malignant disease. PATIENT NOT FASTINGP ERFORMED BY: [employer] [id number] METABOLIC PANEL, COMPREHENSI VE (52963)Ordered By: Housekeeper/Laundry Assistant on 10-24-2020 Albumin [Mass/Vol] 4.4 g/dL Normal 3.7-4.7 [facility]; [facility] Work Phone: Comment on above: Test(s) 193575-OWM-F ; 426262-FRX-T; 540738-Oivxekzywfomx; 706750-Ahaltiuyfpz, Total; 304222-RML-S (Total); 166153-Mbepu LDL-P; 176612-AVS Size; 969156-AH-PF Scorewas developed and its performance characteristics determinedby [employer]. It has not been cleared or approved by the Foodand Drug Administration.PATIENT WAS FASTINGPERFORMED BY: [facility] [address] [id number] BY: Vyyo70 [facility]el[facility] [id number] Albumin/Globulin [Mass ratio] 1.8 {ratio} Normal 1.2-2.2 [facility] Internal [facility]; [facility] Work Phone: Comment on above: Test(s) 057754-QFH-U ; 657506-JFR-E; 604177-Scfmfbbhrslaa; 168351-Gfvpizezyyh, Total; 346525-LIL-J (Total); 811167-Mvoga LDL-P; 364272-MRH Size; 782636-IJ-DI Scorewas developed and its performance characteristics determinedby [employer]. It has not been cleared or approved by the Foodand Drug Administration.PATIENT WAS FASTINGPERFORMED BY: [employer] [id number] BY: CloudXlin[address] [id number] ALP [Catalytic activity/Vol] 85 U/L Normal 39-117 [facility]; [facility] Work Phone: Comment on above: Effective October 28, 2020 Alkaline Phosphatase reference interval will be changing to: Age Male Female 0 - 5 days 52 - 127 52 - 127 6 - 10 days 34 - 242 34 - 242 11 - 20 days 114 - 357 114 - 357 21 - 30 days 107 - 494 107 - 494 1 - 2 months 162 - 539 162 - 539 3 - 6 months 141 - 452 141 - 452 7 - 11 months 128 - 401 128 - 401 12 months - 6 years 170 - 369 170 - 369 7 - 12 years 161 - 409 161 - 409 13 years 166 - 435 83 - 227 14 years 121 - 375 68 - 161 15 years 94 - 279 60 - 134 16 years 78 - 207 55 - 121 17 years 67 - 161 50 - 113 18 - 20 years 55 - 125 45 - 106 >20 years 48 - 121 48 - 121 Test(s) 033954-HOR-O ; 848837-TVV-D; 974627-Oizbpcjxnaqlj; 459574-Jctmlaquflm, Total; 059140-MYY-K (Total); 788576-Qtvgq LDL-P; 566393-LEO Size; 298043-EQ-KH Scorewas developed and its performance characteristics determinedby [employer]. It has not been cleared or approved by the Foodand Drug Administration.PATIENT WAS FASTINGPERFORMED BY: [facility] [address] [id number] BY: Veodin Unntiy[address] [id number] ALT [Catalytic activity/Vol] 31 U/L Normal 0-44 [facility]; [facility] Work Phone: Comment on above: Test(s) 904719-MMH-W ; 872404-CIT-Q; 845840-Nyrnlaubamiow; 360219-Rbabxkmdbsc, Total; 043142-ILS-G (Total); 740167-Bzufd LDL-P; 538992-HNC Size; 596872-OC-IM Scorewas developed and its performance characteristics determinedby [employer]. It has not been cleared or approved by the Foodand Drug Administration.PATIENT WAS FASTINGPERFORMED BY: [facility] [address] [id number] BY: AetherPalAncora Psychiatric HospitalKlqopj[address] [id number] AST [Catalytic activity/Vol] 29 U/L Normal 0-40 [facility]; [facility] Work Phone: Comment on above: Test(s) 275240-IHC-S ; 268456-XFS-U; 270455-Zlxxrfjdotqya; 318135-Uxikdtaiddw, Total; 510674-SSD-V (Total); 616541-Dnfux LDL-P; 346789-VPN Size; 070356-RK-ZL Scorewas developed and its performance characteristics determinedby [employer]. It has not been cleared or approved by the Foodand Drug Administration.PATIENT WAS FASTINGPERFORMED BY: [facility] [address] [id number] BY: AppSame6[address] [facility]elW[facility] [id number] Bilirubin [Mass/Vol] 0.5 mg/dL Normal 0.0-1.2 [facility] Internal Medicine; [facility] Work Phone: Comment on above: Test(s) 828019-SSO-W ; 865887-JVF-F; 248473-Mhwrzwsxakayd; 089713-Lafftxfivsy, Total; 589091-BWF-G (Total); 851863-Mtuby LDL-P; 106107-PDU Size; 243745-LY-GH Scorewas developed and its performance characteristics determinedby [employer]. It has not been cleared or approved by the Foodand Drug Administration.PATIENT WAS FASTINGPERFORMED BY: [employer]k[address] [id number] BY: [employer]Pal Srwvub[address] [id number] Calcium [Mass/Vol] 9.0 mg/dL Normal 8.6-10.2 [facility] Internal [facility]; [facility] Work Phone: Comment on above: Test(s) 256861-VIQ-O ; 169464-KXG-V; 872328-Wyeiinjlvknsd; 297287-Czgpyhpywme, Total; 812607-TXJ-B (Total); 324293-Grjqd LDL-P; 757284-COD Size; 760978-ID-RL Scorewas developed and its performance characteristics determinedby [employer]. It has not been cleared or approved by the Foodand Drug Administration.PATIENT WAS FASTINGPERFORMED BY: [facility] [address] [id number] BY: AppSame6370 KonkuraFormerly [facility] [id number] Chloride [Moles/Vol] 110 mmol/L Abnormal 96-106 [facility]; [facility] Work Phone: Comment on above: Test(s) 184517-LKK-J ; 254412-EJD-T; 373439-Vltsccrfvfbhd; 936250-Zcaclqxaquc, Total; 273259-QPX-B (Total); 050426-Nuelt LDL-P; 919391-BZJ Size; 194355-CS-WE Scorewas developed and its performance characteristics determinedby [employer]. It has not been cleared or approved by the Foodand Drug Administration.PATIENT WAS FASTINGPERFORMED BY: [facility] [address] [id number] BY: Vyyo70 KonkuraFormerly [facility] [id number] CO2 [Moles/Vol] 22 mmol/L Normal 20-29 [facility] Internal Medicine; [facility] Work Phone: Comment on above: Test(s) 288495-VJD-K ; 110973-AGD-I; 836545-Gdzviqbrpldoh; 583560-Zcwiqwabnsh, Total; 168799-VYP-O (Total); 151963-Fptps LDL-P; 234747-VQE Size; 280626-IY-NF Scorewas developed and its performance characteristics determinedby [employer]. It has not been cleared or approved by the Foodand Drug Administration.PATIENT WAS FASTINGPERFORMED BY: [facility] [address] [id number] BY: AppSame6370 KonkuraFormerly [facility] [id number] Creatinine [Mass/Vol] 0.93 mg/dL Normal 0.76-1.27 Com prehensive Internal Medicine; [facility] Work Phone: Comment on above: Test(s) 736657-CDL-W ; 892680-KMW-H; 065442-Rwmtqotmbtnbm; 172408-Lhhxtiqzlic, Total; 694676-IHV-Q (Total); 703790-Jmwmt LDL-P; 926253-IVG Size; 337728-HX-JU Scorewas developed and its performance characteristics determinedby [employer]. It has not been cleared or approved by the Foodand Drug Administration.PATIENT WAS FASTINGPERFORMED BY: [facility] [address] [id number] BY: Veodin Yvhnnl[address] [id number] GFR/1.73 sq M.predicted among blacks CKD-EPI (S/P/Bld) [Vol rate/Area] 94 mL/min/1.73 Normal [facility]; [facility] Work Phone: Comment on above: LabFootnote currently reports eGFR in compliance with the current recommendations of the National Kidney Foundation. [employer] will update reporting as new guidelines are published from the NKF-ASN Task force. Test(s) 880078-LEX-A ; 381486-JPD-A; 491402-Zceisklkvwupf; 463039-Wxtvsqkyqnq, Total; 452563-GYX-B (Total); 404518-Dvdlv LDL-P; 973812-BII Size; 466267-UP-BJ Scorewas developed and its performance characteristics determinedby [employer]. It has not been cleared or approved by the Foodand Drug Administration.PATIENT WAS FASTINGPERFORMED BY: [facility] [address] [id number] BY: Veodin Izwper[address] [id number] GFR/1.73 sq M.predicted among non-blacks CKD-EPI (S/P/Bld) [Vol rate/Area] 81 mL/min/1.73 Normal [facility]; [facility] Work Phone: Comment on above: Test(s) 397848-PNK-R ; 630863-WDA-D; 565077-Vkziemgqumuoj; 069045-Gsawirrsmgr, Total; 614915-EYV-I (Total); 528537-Tzkol LDL-P; 945982-AQU Size; 617018-XZ-HQ Scorewas developed and its performance characteristics determinedby [employer]. It has not been cleared or approved by the Foodand Drug Administration.PATIENT WAS FASTINGPERFORMED BY: [facility] [address] [id number] BY: Vyyo70 Engel Klee Data SystemSelect [facility] [id number] Globulin (S) [Mass/Vol] 2.4 g/dL Normal 1.5-4.5 [facility]; [facility] Work Phone: Comment on above: Test(s) 126918-BCV-Z ; 698690-HDF-S; 907772-Tqrxzqlmbmgfi; 158901-Bzbymssnrnr, Total; 388206-NTQ-T (Total); 257656-Xvodd LDL-P; 049180-VWM Size; 139047-GE-ZA Scorewas developed and its performance characteristics determinedby [employer]. It has not been cleared or approved by the Foodand Drug Administration.PATIENT WAS FASTINGPERFORMED BY: [facility] [address] [id number] BY: AppSame6[address] [facility] [id number] Glucose [Mass/Vol] 114 mg/dL Abnormal 65-99 [facility] Internal Medicine; [facility] Work Phone: Comment on above: Test(s) 452295-KUF-S ; 446850-FBP-K; 659529-Zsmebxygvievd; 780107-Fgzaeaytfnp, Total; 931318-LNY-P (Total); 368555-Elald LDL-P; 543606-MCO Size; 864369-GK-NR Scorewas developed and its performance characteristics determinedby [employer]. It has not been cleared or approved by the Foodand Drug Administration.PATIENT WAS FASTINGPERFORMED BY: Novatek Bazhnegxuu2299 [facility] [id number] BY: JumpStart Ejzvcw8826 [facility] [id number] Potassium [Moles/Vol] 4.5 mmol/L Normal 3.5-5.2 [facility]; [facility] Work Phone: Comment on above: Test(s) 273614-FKB-V ; 263477-LIZ-Y; 144884-Itaopmtukimhk; 296132-Ojysolketoj, Total; 584922-JBV-Y (Total); 862789-Appqc LDL-P; 280297-HJS Size; 075100-MW-ZF Scorewas developed and its performance characteristics determinedby [employer]. It has not been cleared or approved by the FoodAccuDraft Drug Administration.PATIENT WAS FASTINGPERFORMED BY: [employer] [id number] BY: AetherPal Jazfap2030 [facility] [id number] Protein [Mass/Vol] 6.8 g/dL Normal 6.0-8.5 [facility]; [facility] Work Phone: Comment on above: Test(s) 320721-XZO-W ; 933068-TEM-N; 224623-Jvrkcffqsqiur; 300862-Ooviknewwfq, Total; 242662-OZW-I (Total); 870099-Wmcby LDL-P; 774822-ADN Size; 788763-QH-JH Scorewas developed and its performance characteristics determinedby [employer]. It has not been cleared or approved by the Foodand Drug Administration.PATIENT WAS FASTINGPERFORMED BY: JumpStartKelly [place] 5[address] [facility] [id number] BY: JumpStartAncora Psychiatric HospitalTpqcpo5456 [facility] [id number] Sodium [Moles/Vol] 146 mmol/L Abnormal 134-144 [facility]; [facility] Work Phone: Comment on above: Test(s) 047626-BZZ-I ; 682396-AKX-Q; 364224-Vufbmpqehxphn; 907408-Teiqrenblin, Total; 646409-HFO-N (Total); 870049-Cvnui LDL-P; 842069-QHG Size; 072312-FJ-AR Scorewas developed and its performance characteristics determinedby [employer]. It has not been cleared or approved by the Foodand Drug Administration.PATIENT WAS FASTINGPERFORMED BY: [facility] [address] [id number] BY: Vyyo70 [facility] [id number] Urea nitrogen [Mass/Vol] 16 mg/dL Normal 8-27 [facility]; [facility] Work Phone: Comment on above: Test(s) 386567-KPR-J ; 149844-CVD-R; 764459-Becyivtcbjtte; 610162-Bcjzddwwpko, Total; 571735-BOR-P (Total); 184431-Cbktl LDL-P; 167258-GFZ Size; 323146-OU-JU Scorewas developed and its performance characteristics determinedby [employer]. It has not been cleared or approved by the Foodand Drug Administration.PATIENT WAS FASTINGPERFORMED BY: [employer] [id number] BY: AppSame6370 [facility] [id number] Urea nitrogen/Creatinine [Mass ratio] 17 mg/mg Normal 10-24 [facility]; [facility] Work Phone: Comment on above: Test(s) 214364-NRZ-Q ; 842701-OXH-E; 624033-Jcswpcbxohojh; 031743-Lmfosrsxrlx, Total; 597617-VVI-Q (Total); 088253-Hilhd LDL-P; 601055-ZMH Size; 319760-HI-HD Scorewas developed and its performance characteristics determinedby [employer]. It has not been cleared or approved by the Foodand Drug Administration.PATIENT WAS FASTINGPERFORMED BY: [facility] [address] [id number] BY: Vyyo70 [facility] [id number] NMR Profile (63135)Ordered B y: Housekeeper/Laundry Assistant on 10-24-2020 Cholesterol [Mass/Vol] 132 mg/dL Normal 100-199 [facility]; [facility] Work Phone: Comment on above: Test(s) 740494-KUJ-A ; 599038-FYX-X; 999138-Hwezqnazfvvsz; 115891-Mpqritpgxjj, Total; 705551-RQE-Z (Total); 146484-Rjedf LDL-P; 376725-RCV Size; 785327-XL-JT Scorewas developed and its performance characteristics determinedby [employer]. It has not been cleared or approved by the Foodand Drug Administration.PATIENT WAS FASTINGPERFORMED BY: [employer] [id number] BY: Vyyo70 KonkuraFormerly [facility] [id number] Lipoprotein.alpha [Moles/Vol] 36.1 umol/L Normal [facility]; [facility] Work Phone: Comment on above: Test(s) 680721-OWJ-D ; 573914-BZN-Z; 793305-Cwdzymgublxtc; 048675-Vejsxkhluln, Total; 353743-MGK-N (Total); 007793-Zujin LDL-P; 120743-NCE Size; 978087-UQ-LG Scorewas developed and its performance characteristics determinedby [employer]. It has not been cleared or approved by the Foodand Drug Administration.PATIENT WAS FASTINGPERFORMED BY: [facility] [address] [id number] BY: AppSame6370 [facility]elW[facility] Hospital [id number] Lipoprotein.beta.subp article [Entitic length] 20.3 nm Abnormal [facility]; [facility] Work Phone: Comment on above: INTERPRETATIVE INFORMATION PARTICLE CONCENTRATION AND SIZE <--Lower CVD Risk Higher CVD Risk--> LDL AND HDL PARTICLES Percentile in Reference Population HDL-P (total) High 75th 50th 25th Low >34.9 34.9 30.5 26.7 <26.7 . Small LDL-P Low 25th 50th 75th High <117 117 527 839 >839 . LDL Size <-Large (Pattern A)-> <-Small (Pattern B)-> 23.0 20.6 20.5 19.0 Small LDL-P and LDL Size are associated with CVD risk, but not afterLDL-P is taken into account. Test(s) 110738-GJD-S ; 884962-FGL-S; 874678-Fhiozzwugxirp; 471760-Cllkwburlpb, Total; 046823-NLS-E (Total); 866131-Lhpsu LDL-P; 089106-TBH Size; 326709-XX-QV Scorewas developed and its performance characteristics determinedby [employer]. It has not been cleared or approved by the Foodand Drug Administration.PATIENT WAS FASTINGPERFORMED BY: Veodin [address] [id number] BY: Veodin Daszdq5232 [facility] [id number] Lipoprotein.beta.subp article [Moles/Vol] 734 nmol/L Normal [facility]; [facility] Work Phone: Comment on above: Low < 1000 Moderate 1000 - 1299 Borderline-High 1300 - 1599 High 1600 - 2000 Very High > 2000 Test(s) 229432-SRN-I ; 963213-TKZ-W; 929920-Esxrglhlpbvoe; 063763-Wbmhjrywgnf, Total; 208374-VZW-G (Total); 686759-Ggrdi LDL-P; 277323-PVT Size; 504440-FA-ZK Scorewas developed and its performance characteristics determinedby [employer]. It has not been cleared or approved by the Foodand Drug Administration.PATIENT WAS FASTINGPERFORMED BY: Novatek[address] [id number] BY: JumpStartAncora Psychiatric HospitalJromcw8156 [facility] [id number] Lipoprotein.beta.subp article.small [Moles/Vol] 385 nmol/L Normal [facility]; [facility] Work Phone: Comment on above: Test(s) 032457-DIE-F ; 281621-UQH-B; 150955-Uotufcugqsady; 839999-Ljejjubmadr, Total; 630383-NAL-Y (Total); 570703-Rxftv LDL-P; 109002-EZO Size; 585740-PV-LE Scorewas developed and its performance characteristics determinedby [employer]. It has not been cleared or approved by the Foodand Drug Administration.PATIENT WAS FASTINGPERFORMED BY: [facility] [address] [id number] BY: AppSame6[address] [facility] [id number] Triglyceride [Mass/Vol] 68 mg/dL Normal 0-149 [facility]; [facility] Work Phone: Comment on above: Test(s) 988873-VHN-F ; 137997-NFT-L; 516300-Fxmtwwxosmryx; 253256-Irzkrpayrfz, Total; 729301-ZKS-C (Total); 539483-Xefzb LDL-P; 776653-YWW Size; 557543-OF-RO Scorewas developed and its performance characteristics determinedby [employer]. It has not been cleared or approved by the Foodand Drug Administration.PATIENT WAS FASTINGPERFORMED BY: Novatek[address] [id number] BY: AetherPalAncora Psychiatric HospitalMgelbd0334 [facility] [id number] NMR Profile (71373) 63 mg/dL Normal 0-99 Compr ehensive Internal Medicine; [facility] Work Phone: Comment on above: . Optimal < 100 Abov e optimal 100 - 129 Borderline 130 - 159 High 160 - 189 Very high > 189 . Test(s) 629173-SJM-H ; 621083-EUM-M; 508885-Anuarsucjolxr; 364623-Ujtetzwzrir, Total; 186090-EAD-X (Total); 253776-Fuxvr LDL-P; 083404-BNO Size; 165591-HJ-SQ Scorewas developed and its performance characteristics determinedby [employer]. It has not been cleared or approved by the Foodand Drug Administration.PATIENT WAS FASTINGPERFORMED BY: [facility] [address] [id number] BY: FrontalRain TechnologiesWright Memorial Hospital [id number] NMR Profile (08119) 55 mg/dL Normal [facility]; [facility] Work Phone: Comment on above: Test(s) 863401-PFB-E ; 568656-HIX-V; 408990-Kkdcbybtjcslc; 113079-Nxkqckkgfwx, Total; 915897-WYC-O (Total); 839021-Xgypl LDL-P; 458645-CVR Size; 903740-JO-JK Scorewas developed and its performance characteristics determinedby [employer]. It has not been cleared or approved by the Foodand Drug Administration.PATIENT WAS FASTINGPERFORMED BY: [facility] [address] [id number] BY: Vyyo70 [facility] [id number] NMR Profile (79703) 68 mg/dL Normal 0-149 [facility] ehensive Internal Medicine; [facility] Work Phone: NMR Profile (96719) 132 mg/dL Normal 100-199 [facility] ehensive Internal Medicine; [facility] Work Phone: CBC W/AUTO DIFF WBC (21992)O rdered By: Housekeeper/Laundry Assistant on 08-05-2020 Basophils (Bld) [#/Vol] 0.1 {x10E3/uL} Normal 0.0-0.2 [facility]; [facility] Work Phone: Comment on above: Test(s) 780488-YFN-K ; 322647-BKJ-C; 220505-Ntryouiifuqmu; 271702-Pbiqtfoxkgp, Total; 528091-JSQ-G (Total); 807167-Caplt LDL-P; 577755-EXM Size; 992839-HH-CQ Scorewas developed and its performance characteristics determinedby [employer]. It has not been cleared or approved by the Foodand Drug Administration.PATIENT WAS FASTINGPERFORMED BY: [facility] [address] [id number] BY: [employer] [facility] [id number] Basophils (Bld) [#/Vol] 0.1 10*3/uL Normal 0.0-0.2 [facility]; [facility] Work Phone: Comment on above: Test(s) 747140-KOT-Z ; 839439-SGP-Q; 161583-Uavvqvdfnlckt; 623656-Sheqahrkzwu, Total; 528721-XHX-I (Total); 947796-Yeltp LDL-P; 824661-TYJ Size; 940850-VH-OS Scorewas developed and its performance characteristics determinedby [employer]. It has not been cleared or approved by the Foodand Drug Administration.PATIENT WAS FASTINGPERFORMED BY: [facility] [address] [id number] BY: AppSame6[address] [facility] [id number] Basophils/100 WBC (Bld) 1 % Normal [facility]; [facility] Work Phone: Comment on above: Test(s) 187388-RXA-D ; 766214-ENP-R; 447140-Lazcbwtlesgcs; 348090-Seufitkprwd, Total; 441331-WXV-P (Total); 029520-Hycfp LDL-P; 817223-OPT Size; 111014-XY-MR Scorewas developed and its performance characteristics determinedby [employer]. It has not been cleared or approved by the Foodand Drug Administration.PATIENT WAS FASTINGPERFORMED BY: BN LabCo[address] [id number] BY: JumpStartMimbres Memorial HospitalOmhojb5981 [facility] [id number] Eosinophils (Bld) [#/Vol] 0.2 {x10E3/uL} Normal 0.0-0.4 [facility]; [facility] Work Phone: Comment on above: Test(s) 721032-AOD-Q ; 860421-QXG-X; 689977-Lfgshwqttshgl; 417586-Wdhryjazgjl, Total; 207259-RPG-B (Total); 334916-Bcbbm LDL-P; 584502-SZR Size; 276402-WQ-UI Scorewas developed and its performance characteristics determinedby [employer]. It has not been cleared or approved by the Foodand Drug Administration.PATIENT WAS FASTINGPERFORMED BY: [facility] [address] [id number] BY: AppSame6[address] [facility] [id number] Eosinophils (Bld) [#/Vol] 0.2 10*3/uL Normal 0.0-0.4 [facility]; [facility] Work Phone: Comment on above: Test(s) 085110-VBX-H ; 975012-SBZ-S; 661928-Xjdulvmzqqmxn; 497456-Dyzxbzansjq, Total; 724555-MCZ-O (Total); 954289-Qpvcm LDL-P; 200483-ICS Size; 677434-EP-UE Scorewas developed and its performance characteristics determinedby [employer]. It has not been cleared or approved by the Foodand Drug Administration.PATIENT WAS FASTINGPERFORMED BY: JumpStart[address] [id number] BY: JumpStartAncora Psychiatric HospitalUrrwwc8033 [facility] [id number] Eosinophils/100 WBC (Bld) 3 % Normal [facility]; [facility] Work Phone: Comment on above: Test(s) 728512-FAO-Y ; 970160-EAL-Z; 479910-Vqijcjohsgqdr; 684050-Altusfrvnen, Total; 070474-UCP-C (Total); 561035-Mneuv LDL-P; 857811-YTJ Size; 065609-NW-WI Scorewas developed and its performance characteristics determinedby [employer]. It has not been cleared or approved by the Foodand Drug Administration.PATIENT WAS FASTINGPERFORMED BY: [facility] [address] [id number] BY: Veodin Eljyhg7534 [facility] [id number] Erythrocyte distribution width (RBC) [Ratio] 12.6 % Normal 11.6-15.4 [facility]; [facility] Work Phone: Comment on above: Test(s) 426016-WFZ-S ; 851700-MWG-R; 500445-Dahibvqvcsleu; 004066-Kdaooontcam, Total; 127132-OPB-T (Total); 279665-Tqsuj LDL-P; 768531-LNU Size; 357312-OF-HO Scorewas developed and its performance characteristics determinedby [employer]. It has not been cleared or approved by the Foodand Drug Administration.PATIENT WAS FASTINGPERFORMED BY: [facility] [address] [id number] BY: Sjapper Yyrgtl7879 [facility] [id number] Hematocrit (Bld) [Volume fraction] 45.7 % Normal 37.5-51.0 [facility] Internal [facility]; [facility] Work Phone: Comment on above: Test(s) 506825-JSF-T ; 904861-IHR-K; 988841-Mgbzjaazabpci; 360384-Pumamxlggrj, Total; 110067-XGS-H (Total); 110229-Uarlu LDL-P; 720832-CUV Size; 023264-DF-RS Scorewas developed and its performance characteristics determinedby [employer]. It has not been cleared or approved by the Foodand Drug Administration.PATIENT WAS FASTINGPERFORMED BY: [facility] [address] [id number] BY: Sjapper Ntwfbi3809 [facility] [id number] Hemoglobin (Bld) [Mass/Vol] 15.5 g/dL Normal 13.0-17.7 [facility]; [facility] Work Phone: Comment on above: Test(s) 570796-USZ-K ; 215913-FKJ-O; 107866-Anjyedobpsqcm; 714350-Wzbufnlqega, Total; 279110-KYL-O (Total); 620218-Sevqj LDL-P; 363539-BXR Size; 286304-GV-HC Scorewas developed and its performance characteristics determinedby [employer]. It has not been cleared or approved by the Foodand Drug Administration.PATIENT WAS FASTINGPERFORMED BY: [facility] [address] [id number] BY: AppSame6370 EngelWright [facility] Hospital [id number] Immature granulocytes (Bld) [#/Vol] 0.0 {x10E3/uL} Normal 0.0-0.1 [facility]; [facility] Work Phone: Comment on above: Test(s) 142132-QHK-F ; 645998-QEH-Q; 837891-Cfzvlfgenznln; 579844-Nvfuumcdddb, Total; 503920-KLK-C (Total); 822885-Zxzct LDL-P; 095747-MTD Size; 632490-RM-QW Scorewas developed and its performance characteristics determinedby [employer]. It has not been cleared or approved by the Foodand Drug Administration.PATIENT WAS FASTINGPERFORMED BY: [facility] [address] [id number] BY: AetherPalAncora Psychiatric HospitalHytlmi2381 [facility] [id number] Immature granulocytes (Bld) [#/Vol] 0.0 10*3/uL Normal 0.0-0.1 [facility]; [facility] Work Phone: Comment on above: Test(s) 635140-NTJ-A ; 366863-TME-E; 298739-Ajjfodqlhwfuc; 849277-Dsspzaaxnek, Total; 042628-SXZ-G (Total); 545447-Erasf LDL-P; 815090-VAK Size; 850654-BM-CV Scorewas developed and its performance characteristics determinedby [employer]. It has not been cleared or approved by the Foodand Drug Administration.PATIENT WAS FASTINGPERFORMED BY: [facility] [address] [id number] BY: Vyyo70 KonkuraFormerly [facility] [id number] Immature granulocytes/100 WBC (Bld) 0 % Normal [facility]; [facility] Work Phone: Comment on above: Test(s) 058007-FJF-I ; 927635-DYY-F; 295494-Baajokbbwddla; 677084-Whyhacrubas, Total; 895129-HHF-E (Total); 031080-Vhiay LDL-P; 743541-MKN Size; 645172-NK-FE Scorewas developed and its performance characteristics determinedby [employer]. It has not been cleared or approved by the FoodAccuDraft Drug Administration.PATIENT WAS FASTINGPERFORMED BY: [facility] [address] [id number] BY: Vyyo70 KonkuraFormerly [facility] [id number] Lymphocytes (Bld) [#/Vol] 2.4 {x10E3/uL} Normal 0.7-3.1 [facility]; [facility] Work Phone: Comment on above: Test(s) 531354-NOQ-W ; 982611-QWH-R; 349565-Kvxuvicpbvona; 880978-Qzpnabzgbpf, Total; 603780-HJQ-Y (Total); 695018-Rnfga LDL-P; 037665-CYT Size; 750989-AX-JE Scorewas developed and its performance characteristics determinedby [employer]. It has not been cleared or approved by the Foodand Drug Administration.PATIENT WAS FASTINGPERFORMED BY: [facility] [address] [id number] BY: Vyyo70 Engel [facility] [id number] Lymphocytes (Bld) [#/Vol] 2.4 10*3/uL Normal 0.7-3.1 [facility]; [facility] Work Phone: Comment on above: Test(s) 828055-DJN-O ; 360414-SXJ-A; 078711-Pfexmuudosteo; 133499-Crlnabrrapd, Total; 793925-GKZ-U (Total); 397468-Fvhho LDL-P; 877674-MQO Size; 127336-PX-MZ Scorewas developed and its performance characteristics determinedby [employer]. It has not been cleared or approved by the Foodand Drug Administration.PATIENT WAS FASTINGPERFORMED BY: Portal Solutions[address] [id number] BY: AppSame6370 KonkuraFormerly [facility] [id number] Lymphocytes/100 WBC (Bld) 34 % Normal [facility]; [facility] Work Phone: Comment on above: Test(s) 250688-MGS-J ; 864056-RHL-R; 773661-Vkhhcjyhiehal; 574532-Urffnojsksd, Total; 547548-IUV-Q (Total); 829208-Wlnro LDL-P; 065327-BVL Size; 335038-PG-FH Scorewas developed and its performance characteristics determinedby [employer]. It has not been cleared or approved by the Foodand Drug Administration.PATIENT WAS FASTINGPERFORMED BY: [facility] [address] [id number] BY: AppSame6370 KonkuraFormerly [facility] [id number] MCH (RBC) [Entitic mass] 30.1 pg Normal 26.6-33.0 [facility]; [facility] Work Phone: Comment on above: Test(s) 569133-KVH-K ; 824684-DIG-D; 471146-Oddkprojaufas; 303974-Cdhfxcvqixa, Total; 169163-YRH-N (Total); 766168-Thatd LDL-P; 513342-COQ Size; 168371-HQ-HT Scorewas developed and its performance characteristics determinedby [employer]. It has not been cleared or approved by the Foodand Drug Administration.PATIENT WAS FASTINGPERFORMED BY: [facility] [address] [id number] BY: Vyyo70 [facility] [id number] MCHC (RBC) [Mass/Vol] 33.9 g/dL Normal 31.5-35.7 [facility] prehensive Internal Medicine; [facility] Work Phone: Comment on above: Test(s) 646375-BAN-V ; 929355-TFF-K; 380056-Nypnhhljdrssp; 736053-Nzbyhnbxzvj, Total; 716773-PIM-P (Total); 699643-Qqvpk LDL-P; 563710-TKG Size; 262878-IX-OT Scorewas developed and its performance characteristics determinedby [employer]. It has not been cleared or approved by the Foodand Drug Administration.PATIENT WAS FASTINGPERFORMED BY: [facility] [address] [id number] BY: Vyyo70 [facility] HospitalHallspotFormerly [facility] [id number] MCV (RBC) [Entitic vol] 89 fL Normal 79-97 [facility] Internal Medicine; [facility] Work Phone: Comment on above: Test(s) 350030-XAH-N ; 414082-HJI-B; 846020-Uifyjfwaunaus; 671806-Nmdvhqxbrub, Total; 269799-XKZ-U (Total); 689398-Fmzyi LDL-P; 917009-GIT Size; 688567-NR-GC Scorewas developed and its performance characteristics determinedby [employer]. It has not been cleared or approved by the Foodand Drug Administration.PATIENT WAS FASTINGPERFORMED BY: [facility] [address] [id number] BY: CloudXlin6[address] [facility] [id number] Monocytes (Bld) [#/Vol] 0.7 {x10E3/uL} Normal 0.1-0.9 [facility]; [facility] Work Phone: Comment on above: Test(s) 166639-DWO-Y ; 464940-RZI-M; 979970-Cphogtfwflgxg; 711291-Tbbmkdaghfx, Total; 272185-DCX-Y (Total); 687113-Oyslp LDL-P; 263314-HMV Size; 540049-LG-UC Scorewas developed and its performance characteristics determinedby [employer]. It has not been cleared or approved by the Foodand Drug Administration.PATIENT WAS FASTINGPERFORMED BY: [facility] [address] [id number] BY: Vyyo70 [facility]ubeTreeSelect Specialty Hospital [facility] [id number] Monocytes (Bld) [#/Vol] 0.7 10*3/uL Normal 0.1-0.9 [facility]; [facility] Work Phone: Comment on above: Test(s) 952590-CET-U ; 702352-AJK-G; 346162-Mtyadcpgagexb; 102749-Ccdhkroiaad, Total; 621712-LQR-Z (Total); 511582-Aniai LDL-P; 148291-ETM Size; 512264-MY-OC Scorewas developed and its performance characteristics determinedby [employer]. It has not been cleared or approved by the Foodand Drug Administration.PATIENT WAS FASTINGPERFORMED BY: [facility] [address] [id number] BY: Vyyo70 EngelWright Memorial Hospital [id number] Monocytes/100 WBC (Bld) 9 % Normal [facility]; [facility] Work Phone: Comment on above: Test(s) 501011-DDI-P ; 218029-LMF-D; 553783-Vkqqcjbwbncez; 410380-Ztupwggdnqc, Total; 534750-SRZ-J (Total); 115393-Squfm LDL-P; 837208-ERL Size; 047296-TY-IC Scorewas developed and its performance characteristics determinedby [employer]. It has not been cleared or approved by the Foodand Drug Administration.PATIENT WAS FASTINGPERFORMED BY: Infusion Medical [address] [id number] BY: JumpStart Ytdzob9718 [facility] [id number] Neutrophils (Bld) [#/Vol] 3.7 {x10E3/uL} Normal 1.4-7.0 [facility]; [facility] Work Phone: Comment on above: Test(s) 822597-WWQ-M ; 402640-XSY-F; 263610-Nljururiiywwy; 456686-Efgglmjvloo, Total; 832215-FYF-A (Total); 255413-Mmiea LDL-P; 529886-YET Size; 688878-EX-ZA Scorewas developed and its performance characteristics determinedby [employer]. It has not been cleared or approved by the Foodand Drug Administration.PATIENT WAS FASTINGPERFORMED BY: [facility] [address] [id number] BY: JumpStart Gqqqif4743 [facility] [id number] Neutrophils (Bld) [#/Vol] 3.7 10*3/uL Normal 1.4-7.0 [facility]; [facility] Work Phone: Comment on above: Test(s) 966935-BGJ-S ; 242190-QXM-W; 800254-Frautnfognwhs; 551965-Venglpdlywb, Total; 348739-KBC-J (Total); 052871-Qdnrt LDL-P; 437225-PDP Size; 121097-UR-LL Scorewas developed and its performance characteristics determinedby [employer]. It has not been cleared or approved by the Foodand Drug Administration.PATIENT WAS FASTINGPERFORMED BY: [facility] [address] [id number] BY: JumpStartAncora Psychiatric HospitalYqlykj4526 [facility] [id number] Neutrophils/100 WBC (Bld) 53 % Normal [facility]; [facility] Work Phone: Comment on above: Test(s) 827133-WWI-D ; 795060-TOQ-J; 520255-Wybzjmxmxtzem; 597603-Vtseofvrmkz, Total; 056900-KFQ-D (Total); 852913-Ktjzx LDL-P; 164093-MBK Size; 863319-HK-BT Scorewas developed and its performance characteristics determinedby [employer]. It has not been cleared or approved by the Foodand Drug Administration.PATIENT WAS FASTINGPERFORMED BY: [employer] [id number] BY: Vyyo70 [place] Klee Data SystemSelect [facility]ty Hospital [facility] [id number] Platelets (Bld) [#/Vol] 237 {x10E3/uL} Normal 150-450 [facility]; [facility] Work Phone: Comment on above: Test(s) 464963-GAM-U ; 532831-FWI-M; 054819-Gppznreygnjlm; 732022-Tmuubthfuxm, Total; 542239-FFS-M (Total); 107263-Bvxon LDL-P; 254955-CIQ Size; 246071-LL-ZX Scorewas developed and its performance characteristics determinedby [employer]. It has not been cleared or approved by the Foodand Drug Administration.PATIENT WAS FASTINGPERFORMED BY: [facility] [address] [id number] BY: AppSame6370 KonkuraFormerly [facility] [id number] Platelets (Bld) [#/Vol] 237 10*3/uL Normal 150-450 [facility]; [facility] Work Phone: Comment on above: Test(s) 129800-QXN-I ; 394450-IQR-B; 135032-Pzefafnoztnbw; 753972-Tzwkoijfbcv, Total; 486995-KNG-K (Total); 412553-Kolxn LDL-P; 275129-HPQ Size; 215446-YE-QE Scorewas developed and its performance characteristics determinedby [employer]. It has not been cleared or approved by the Foodand Drug Administration.PATIENT WAS FASTINGPERFORMED BY: [facility] Jgvfvjtamt3900 [facility] [id number] BY: AppSame6370 [facility] [id number] RBC (Bld) [#/Vol] 5.15 {x10E6/uL} Normal 4.14-5.80 [facility]; [facility] Work Phone: Comment on above: Test(s) 614542-YYQ-R ; 295627-GJL-M; 703533-Xnjnccutflqnk; 997413-Qrayirtiaig, Total; 216184-QOA-Z (Total); 226045-Uqfbn LDL-P; 872852-LDK Size; 817347-MZ-IG Scorewas developed and its performance characteristics determinedby [employer]. It has not been cleared or approved by the Foodand Drug Administration.PATIENT WAS FASTINGPERFORMED BY: [employer] [id number] BY: AppSame6370 [facility] [id number] RBC (Bld) [#/Vol] 5.15 10*6/uL Normal 4.14-5.80 [facility]; [facility] Work Phone: Comment on above: Test(s) 993994-QGU-W ; 374583-CVV-R; 635012-Ggnxgxxhoquew; 328563-Qkqdmmjtvzm, Total; 320479-UMV-A (Total); 975853-Wojec LDL-P; 740682-TSG Size; 647374-EQ-XJ Scorewas developed and its performance characteristics determinedby [employer]. It has not been cleared or approved by the Foodand Drug Administration.PATIENT WAS FASTINGPERFORMED BY: [facility] [address] [id number] BY: CloudXlin6370 [facility] [id number] WBC (Bld) [#/Vol] 7.0 {x10E3/uL} Normal 3.4-10.8 [facility]; [facility] Work Phone: Comment on above: Test(s) 513395-IKO-B ; 392656-LMO-N; 913628-Ouswxmvomkoms; 361265-Lovdtswgfno, Total; 709371-FCT-F (Total); 096737-Jvmha LDL-P; 986140-LLC Size; 623662-SW-GX Scorewas developed and its performance characteristics determinedby [employer]. It has not been cleared or approved by the Foodand Drug Administration.PATIENT WAS FASTINGPERFORMED BY: [facility] [address] [id number] BY: Vyyo70 [facility] [id number] WBC (Bld) [#/Vol] 7.0 10*3/uL Normal 3.4-10.8 [facility]; [facility] Work Phone: Comment on above: Test(s) 471054-PWN-M ; 205445-FEF-P; 191335-Doypffwuimioy; 931364-Qhszuxuxdpy, Total; 025019-BKM-D (Total); 325486-Tiypq LDL-P; 675614-KBH Size; 064114-DO-GA Scorewas developed and its performance characteristics determinedby [employer]. It has not been cleared or approved by the Foodand Drug Administration.PATIENT WAS FASTINGPERFORMED BY: [facility] [address] [id number] BY: AppSame6370 [facility] [id number] METABOLIC PANEL, COMPREHENSI VE (02658)Ordered By: Housekeeper/Laundry Assistant on 08-05-2020 Albumin [Mass/Vol] 4.5 g/dL Normal 3.7-4.7 [facility]; [facility] Work Phone: Comment on above: Test(s) 148682-FQL-X ; 397427-KGZ-X; 661954-Zveprfcgasqaw; 437792-Kbdbzimkmed, Total; 107803-DOH-I (Total); 244613-Npnge LDL-P; 879696-SNA Size; 350825-YS-WM Scorewas developed and its performance characteristics determinedby [employer]. It has not been cleared or approved by the Foodand Drug Administration.PATIENT WAS FASTINGPERFORMED BY: JumpStart[address] [id number] BY: JumpStartAncora Psychiatric HospitalEztueh5702 [place]lee Data SystemSelect Specialty Hospital [facility] [id number] Albumin/Globulin [Mass ratio] 1.9 {ratio} Normal 1.2-2.2 [facility]; [facility] Work Phone: Comment on above: Test(s) 480655-IQB-X ; 063538-DHL-W; 925316-Ysyvazcvwutyn; 604687-Sefjlrzafud, Total; 309134-RTG-N (Total); 951485-Biaww LDL-P; 711241-CHL Size; 083511-MF-AS Scorewas developed and its performance characteristics determinedby [employer]. It has not been cleared or approved by the Foodand Drug Administration.PATIENT WAS FASTINGPERFORMED BY: Veodin [address] [id number] BY: JumpStart Mbufjm8160 [facility] [id number] ALP [Catalytic activity/Vol] 97 [iU]/L Normal 39-117 [facility]; [facility] Work Phone: Comment on above: Test(s) 346232-DEK-M ; 303410-SDC-H; 433256-Glmvjxmwbglsf; 346725-Pcixderycmv, Total; 409744-FNU-C (Total); 385938-Gzwdk LDL-P; 456349-YXH Size; 940037-QG-YV Scorewas developed and its performance characteristics determinedby [employer]. It has not been cleared or approved by the Foodand Drug Administration.PATIENT WAS FASTINGPERFORMED BY: JumpStart[address] [id number] BY: JumpStartAncora Psychiatric HospitalZrsaal3600 [facility] [id number] ALP [Catalytic activity/Vol] 97 U/L Normal 39-117 [facility]; [facility] Work Phone: Comment on above: Test(s) 008958-YQG-M ; 111417-BTA-O; 681671-Xikyzidsltuis; 656530-Wekzoukkwuc, Total; 042423-GAR-D (Total); 144523-Yincv LDL-P; 749427-HZF Size; 341374-EN-BQ Scorewas developed and its performance characteristics determinedby [employer]. It has not been cleared or approved by the Foodand Drug Administration.PATIENT WAS FASTINGPERFORMED BY: [facility] [address] [id number] BY: Vyyo70 [facility] [id number] ALT [Catalytic activity/Vol] 30 [iU]/L Normal 0-44 [facility]; [facility] Work Phone: Comment on above: Test(s) 531977-JPY-W ; 077636-IOJ-N; 341151-Cdybvfbbtdywr; 217647-Ncxazayhlyq, Total; 023825-TMQ-O (Total); 144944-Eemte LDL-P; 257188-KUF Size; 893336-UP-WW Scorewas developed and its performance characteristics determinedby [employer]. It has not been cleared or approved by the Foodand Drug Administration.PATIENT WAS FASTINGPERFORMED BY: [facility] [address] [id number] BY: AppSame6370 [facility] [id number] ALT [Catalytic activity/Vol] 30 U/L Normal 0-44 [facility]; [facility] Work Phone: Comment on above: Test(s) 608565-TWH-C ; 776163-LWV-A; 848245-Ktxpcgrkqigsf; 323431-Nufedmfrrff, Total; 263260-OYM-Y (Total); 809804-Xfhgl LDL-P; 951589-QEL Size; 028494-WK-KR Scorewas developed and its performance characteristics determinedby [employer]. It has not been cleared or approved by the Foodand Drug Administration.PATIENT WAS FASTINGPERFORMED BY: [facility] [address] [id number] BY: AetherPalAncora Psychiatric HospitalNooijr8625 [facility] [id number] AST [Catalytic activity/Vol] 26 [iU]/L Normal 0-40 [facility]; [facility] Work Phone: Comment on above: Test(s) 713057-WPS-J ; 870980-ESG-Z; 324900-Rtxtzbkjjzfdv; 754945-Vdkendupivm, Total; 435263-ZKB-R (Total); 593074-Yegre LDL-P; 993010-FEP Size; 347525-WC-NA Scorewas developed and its performance characteristics determinedby [employer]. It has not been cleared or approved by the Foodand Drug Administration.PATIENT WAS FASTINGPERFORMED BY: [facility] [address] [id number] BY: AppSame6370 [facility] [id number] AST [Catalytic activity/Vol] 26 U/L Normal 0-40 [facility]; [facility] Work Phone: Comment on above: Test(s) 805945-BPL-U ; 943802-TBB-E; 637968-Ytcgyijndbref; 006974-Mixanqeretj, Total; 481443-DIF-F (Total); 439476-Gvjqd LDL-P; 568027-HWP Size; 914937-FJ-QY Scorewas developed and its performance characteristics determinedby [employer]. It has not been cleared or approved by the Foodand Drug Administration.PATIENT WAS FASTINGPERFORMED BY: Novatek[address] [id number] BY: AetherPalAncora Psychiatric HospitalPwcfck4520 [facility] [id number] Bilirubin [Mass/Vol] 0.4 mg/dL Normal 0.0-1.2 [facility]; [facility] Work Phone: Comment on above: Test(s) 019675-OKE-F ; 936169-HMZ-U; 360828-Ecjglhjvfvqbh; 505889-Abkbyslwjba, Total; 389563-HFR-T (Total); 691385-Donbu LDL-P; 589391-WGD Size; 267041-CY-AP Scorewas developed and its performance characteristics determinedby [employer]. It has not been cleared or approved by the Foodand Drug Administration.PATIENT WAS FASTINGPERFORMED BY: [facility] [address] [id number] BY: JumpStart Omrbnm7606 [facility] [id number] Calcium [Mass/Vol] 9.3 mg/dL Normal 8.6-10.2 [facility]; [facility] Work Phone: Comment on above: Test(s) 913427-QGT-B ; 779952-VVO-C; 835934-Xvyxhiyvzchqa; 559560-Zgwpkcnoozk, Total; 840746-DFW-M (Total); 299235-Qwpns LDL-P; 886045-XDB Size; 530865-XZ-BO Scorewas developed and its performance characteristics determinedby [employer]. It has not been cleared or approved by the Foodand Drug Administration.PATIENT WAS FASTINGPERFORMED BY: [facility] [address] [id number] BY: Vyyo70 [facility] [id number] Chloride [Moles/Vol] 107 mmol/L Abnormal 96-106 [facility] Internal [facility]; [facility] Work Phone: Comment on above: Test(s) 989166-VTU-S ; 057256-BAZ-M; 746634-Bktpbhfughkgd; 031201-Blamqrjsdvy, Total; 825831-RSS-O (Total); 709323-Ijjyw LDL-P; 825847-ITO Size; 199660-HD-TS Scorewas developed and its performance characteristics determinedby [employer]. It has not been cleared or approved by the Foodand Drug Administration.PATIENT WAS FASTINGPERFORMED BY: [facility] [address] [id number] BY: AppSame6370 [facility] [id number] CO2 [Moles/Vol] 21 mmol/L Normal 20-29 [facility]; [facility] Work Phone: Comment on above: Test(s) 022611-KYS-R ; 159930-LRH-R; 527209-Ojvoxmabdnrmh; 237953-Esczpftbjrg, Total; 682882-DOJ-L (Total); 182065-Ebnas LDL-P; 276013-OJZ Size; 613362-VW-JE Scorewas developed and its performance characteristics determinedby [employer]. It has not been cleared or approved by the Foodand Drug Administration.PATIENT WAS FASTINGPERFORMED BY: Portal Solutionston[address] [place] [address] [id number] BY: Vyyo70 [facility] [id number] Creatinine [Mass/Vol] 1.00 mg/dL Normal 0.76-1.27 [facility]; [facility] Work Phone: Comment on above: Test(s) 081570-GGZ-D ; 551125-KLK-F; 665946-Vhjulnxieekja; 451727-Wzxwxzhemcq, Total; 386292-ALA-Z (Total); 320497-Sqyhe LDL-P; 525514-WRF Size; 688651-GD-TJ Scorewas developed and its performance characteristics determinedby [employer]. It has not been cleared or approved by the Foodand Drug Administration.PATIENT WAS FASTINGPERFORMED BY: NOZA[address] [place] [address] [id number] BY: AppSame6370 [facility] [id number] GFR/1.73 sq M predicted among blacks CKD-EPI (S/P/Bld) [Vol rate/Area] 86 mL/min/1.73 Normal [facility]; [facility] Work Phone: Comment on above: Test(s) 781517-ADM-Y ; 226754-HVD-O; 835897-Zpdkmvgkhwjyb; 401501-Onofgbvunri, Total; 987168-VZA-P (Total); 152832-Lxbcs LDL-P; 665759-EST Size; 358112-EK-TC Scorewas developed and its performance characteristics determinedby [employer]. It has not been cleared or approved by the Foodand Drug Administration.PATIENT WAS FASTINGPERFORMED BY: [facility] [address] [id number] BY: JumpStartMimbres Memorial HospitalBfdwxr0313 [facility] [id number] GFR/1.73 sq M predicted among non-blacks CKD-EPI (S/P/Bld) [Vol rate/Area] 74 mL/min/1.73 Normal [facility]; [facility] Work Phone: Comment on above: Test(s) 251226-VNT-Y ; 903554-TOD-V; 739384-Gaexbvcxlklis; 973878-Iqqubfyoair, Total; 932096-XFK-Y (Total); 336496-Oxqux LDL-P; 846157-ENW Size; 779468-IJ-CR Scorewas developed and its performance characteristics determinedby [employer]. It has not been cleared or approved by the Foodand Drug Administration.PATIENT WAS FASTINGPERFORMED BY: [facility] [address] [id number] BY: Vyyo70 [facility] [id number] Globulin (S) [Mass/Vol] 2.4 g/dL Normal 1.5-4.5 [facility]; [facility] Work Phone: Comment on above: Test(s) 278223-NIH-K ; 387625-PMI-Q; 306158-Vrfyduswwrvtl; 062158-Pbdwnaggcee, Total; 433262-PGF-E (Total); 466221-Yglfv LDL-P; 385856-TWK Size; 050328-LW-VF Scorewas developed and its performance characteristics determinedby [employer]. It has not been cleared or approved by the Foodand Drug Administration.PATIENT WAS FASTINGPERFORMED BY: [facility] [address] [id number] BY: CloudXlin6370 [facility] [id number] Glucose [Mass/Vol] 127 mg/dL Abnormal 65-99 [facility]; [facility] Work Phone: Comment on above: Test(s) 721429-YQG-T ; 894588-KEA-L; 731935-Xuaxymgxaypec; 455046-Pgootqwwzsq, Total; 706262-MPP-O (Total); 533386-Ahpae LDL-P; 726034-ZKJ Size; 183380-BY-YS Scorewas developed and its performance characteristics determinedby [employer]. It has not been cleared or approved by the Foodand Drug Administration.PATIENT WAS FASTINGPERFORMED BY: [employer] [id number] BY: AppSame6370 [facility] [id number] Potassium [Moles/Vol] 4.6 mmol/L Normal 3.5-5.2 [facility]; [facility] Work Phone: Comment on above: Test(s) 361563-ENL-T ; 669215-UBK-V; 122296-Ykmnggqbgohfp; 055159-Xnxtmchfnwc, Total; 806833-TDI-S (Total); 791513-Dddnp LDL-P; 864788-NVE Size; 157113-RN-PR Scorewas developed and its performance characteristics determinedby [employer]. It has not been cleared or approved by the Foodand Drug Administration.PATIENT WAS FASTINGPERFORMED BY: [employer] [id number] BY: AppSame6370 [facility] [id number] Protein [Mass/Vol] 6.9 g/dL Normal 6.0-8.5 [facility]; [facility] Work Phone: Comment on above: Test(s) 537172-ETK-Q ; 526897-PPZ-W; 011793-Bygyrtnrrjgjt; 663152-Ojnimzkviyq, Total; 865898-XAP-X (Total); 947102-Rzkoi LDL-P; 728623-HIB Size; 337842-FE-VW Scorewas developed and its performance characteristics determinedby [employer]. It has not been cleared or approved by the Foodand Drug Administration.PATIENT WAS FASTINGPERFORMED BY: [facility] [address] [id number] BY: AppSame6370 [facility] [id number] Sodium [Moles/Vol] 141 mmol/L Normal 134-144 [facility]; [facility] Work Phone: Comment on above: Test(s) 273242-CAX-T ; 079167-QQX-X; 921192-Ddkpflxowxkpe; 668817-Eztmgrafvms, Total; 435357-EKS-B (Total); 906234-Wmfmk LDL-P; 412276-VTC Size; 948522-HQ-EK Scorewas developed and its performance characteristics determinedby [employer]. It has not been cleared or approved by the Foodand Drug Administration.PATIENT WAS FASTINGPERFORMED BY: [facility] [address] [id number] BY: Vyyo70 [place] Klee Data SystemSelect Specialty Hospital [facility] [id number] Urea nitrogen [Mass/Vol] 20 mg/dL Normal 8-27 [facility]; [facility] Work Phone: Comment on above: Test(s) 617436-WFE-F ; 533072-LQT-U; 251466-Kdkyjamhvthwm; 645113-Tunxdnacras, Total; 100033-FLB-B (Total); 392496-Stfej LDL-P; 344173-LXC Size; 609314-UI-CA Scorewas developed and its performance characteristics determinedby [employer]. It has not been cleared or approved by the Foodand Drug Administration.PATIENT WAS FASTINGPERFORMED BY: [facility] [address] [id number] BY: CloudXlin6370 [facility] [id number] Urea nitrogen/Creatinine [Mass ratio] 20 mg/mg Normal 10-24 [facility]; [facility] Work Phone: Comment on above: Test(s) 793520-UIN-H ; 506823-NLG-Q; 605499-Vdtuwlewqfgrr; 982782-Mmtkgeouovp, Total; 318487-BDW-V (Total); 382998-Vxisz LDL-P; 943791-ERE Size; 845719-GL-YO Scorewas developed and its performance characteristics determinedby [employer]. It has not been cleared or approved by the Foodand Drug Administration.PATIENT WAS FASTINGPERFORMED BY: Portal [employer] [id number] BY: [employer] ID [id number] MICROALBUMINOrdered By: [employer] em Lobster Catcher on 08-05-2020 Albumin DL <= 20 mg/L (U) [Mass/Vol] 40.6 ug/mL Normal [facility]; [facility] Work Phone: Comment on above: Test(s) 805014-IJU-T ; 030944-MCQ-P; 180546-Lybhoepazkikh; 327038-Ngbgiucatxy, Total; 912835-AGS-R (Total); 492899-Ynrmi LDL-P; 257875-RJD Size; 283218-DY-DT Scorewas developed and its performance characteristics determinedby [employer]. It has not been cleared or approved by the Foodand Drug Administration.PATIENT WAS FASTINGPERFORMED BY: [facility] [address] [id number] BY: Vyyo70 KonkuraFormerly [facility] [id number] Albumin/Creatinine (U) [Mass ratio] 20 {mg/g_creat} Normal 0-29 [facility]; [facility] Work Phone: Comment on above: Normal: 0 - 29 Moder ately increased: 30 - 300 Severely increased: >300 Test(s) 651889-DFP-L ; 254908-LKQ-D; 161434-Lvennjoldfwmk; 648601-Vvzzglmxcco, Total; 933700-XTE-Y (Total); 332054-Mfitr LDL-P; 395137-KGF Size; 620948-ZT-NJ Scorewas developed and its performance characteristics determinedby [employer]. It has not been cleared or approved by the Foodand Drug Administration.PATIENT WAS FASTINGPERFORMED BY: [facility] [address] [id number] BY: JumpStart Yhnmjz6118 [facility]TreeSelect [facility] [id number] Creatinine (U) [Mass/Vol] 205.2 mg/dL Normal [facility]; [facility] Work Phone: Comment on above: Test(s) 014778-DOC-U ; 146912-JYT-J; 712200-Oaesqgqgvcqno; 975827-Yvnmoiyvhfp, Total; 829683-HBL-Z (Total); 092048-Slhtm LDL-P; 253269-FRP Size; 601641-ZZ-OY Scorewas developed and its performance characteristics determinedby [employer]. It has not been cleared or approved by the Foodand Drug Administration.PATIENT WAS FASTINGPERFORMED BY: [facility] [address] [id number] BY: AppSame6370 [facility]ubeTreeSelect Specialty [facility] [id number] NMR Profile (72552)Ordered B y: Housekeeper/Laundry Assistant on 08-05-2020 Cholesterol [Mass/Vol] 151 mg/dL Normal 100-199 [facility]; [facility] Work Phone: Comment on above: Test(s) 935746-VEZ-E ; 756924-JZI-Z; 168662-Ptylqizdpqeag; 865474-Rrofsaxjyir, Total; 118098-CVN-R (Total); 176511-Rceau LDL-P; 771001-EZW Size; 589328-UT-UY Scorewas developed and its performance characteristics determinedby [employer]. It has not been cleared or approved by the Foodand Drug Administration.PATIENT WAS FASTINGPERFORMED BY: [facility] [address] [id number] BY: CloudXlin6370 [facility] [id number] Lipoprotein.alpha [Moles/Vol] 35.1 umol/L Normal [facility]; [facility] Work Phone: Comment on above: Test(s) 632907-AHW-Z ; 460879-VZC-X; 042758-Syjsaaevfibpk; 306586-Wwdvpumfnpe, Total; 885366-NKR-B (Total); 664324-Mjekd LDL-P; 442320-KSD Size; 174947-OL-JX Scorewas developed and its performance characteristics determinedby [employer]. It has not been cleared or approved by the Foodand Drug Administration.PATIENT WAS FASTINGPERFORMED BY: BN [facility] Uhhnofmopj6385 [facility] [id number] BY: CB [facility] Fhdaqe4150 [facility] [id number] Lipoprotein.beta.subp article [Entitic length] 20.2 nm Abnormal [facility]; [facility] Work Phone: Comment on above: INTERPRETATIVE INFORMATION PARTICLE CONCENTRATION AND SIZE <--Lower CVD Risk Higher CVD Risk--> LDL AND HDL PARTICLES Percentile in Reference Population HDL-P (total) High 75th 50th 25th Low >34.9 34.9 30.5 26.7 <26.7 . Small LDL-P Low 25th 50th 75th High <117 117 527 839 >839 . LDL Size <-Large (Pattern A)-> <-Small (Pattern B)-> 23.0 20.6 20.5 19.0 Small LDL-P and LDL Size are associated with CVD risk, but not afterLDL-P is taken into account. Test(s) 183419-YPI-O ; 552780-KQC-F; 166571-Bdawethzmcwxe; 026929-Ccrgpxsdely, Total; 153482-LDU-P (Total); 147508-Pspkt LDL-P; 831795-SWS Size; 478083-GK-ZQ Scorewas developed and its performance characteristics determinedby [employer]. It has not been cleared or approved by the Foodand Drug Administration.PATIENT WAS FASTINGPERFORMED BY: [facility] [address] [id number] BY: JumpStart[address] [id number] Lipoprotein.beta.subp article [Moles/Vol] 951 nmol/L Normal Comprehensiv e Internal Medicine; [facility] Work Phone: Comment on above: Low < 1000 Moderate 1000 - 1299 Borderline-High 1300 - 1599 High 1600 - 2000 Very High > 2000 Test(s) 243876-ICH-Y ; 083662-HRY-X; 564394-Issqncnukqrcv; 962177-Rfjixgsppvv, Total; 605718-VBR-Y (Total); 281674-Jcdrk LDL-P; 726500-GJF Size; 573280-TE-OS Scorewas developed and its performance characteristics determinedby [employer]. It has not been cleared or approved by the Foodand Drug Administration.PATIENT WAS FASTINGPERFORMED BY: [facility] [address] [id number] BY: [employer] Ehlfts[address] [facility] [id number] Lipoprotein.beta.subp article.small [Moles/Vol] 587 nmol/L Abnormal [facility]; [facility] Work Phone: Comment on above: Test(s) 740263-CYF-X ; 714729-FWA-W; 758295-Rumikxayqbjyc; 828155-Volvskmqcgn, Total; 881623-DRG-M (Total); 974427-Irkkx LDL-P; 961916-VFX Size; 538399-GN-SI Scorewas developed and its performance characteristics determinedby [employer]. It has not been cleared or approved by the Foodand Drug Administration.PATIENT WAS FASTINGPERFORMED BY: [facility] [address] [id number] BY: JumpStartAncora Psychiatric HospitalSctgxx35[facility] [id number] Triglyceride [Mass/Vol] 164 mg/dL Abnormal 0-149 [facility]; [facility] Work Phone: Comment on above: Test(s) 549312-XKC-Q ; 417303-FQA-C; 825966-Yvmesggfeqsvk; 220146-Eifjsegcceu, Total; 356733-AIB-O (Total); 838031-Uchjl LDL-P; 981239-WGG Size; 767794-LY-WZ Scorewas developed and its performance characteristics determinedby [employer]. It has not been cleared or approved by the Foodand Drug Administration.PATIENT WAS FASTINGPERFORMED BY: [facility] [address] [id number] BY: S[employer]apper Wvttgn7[address] [facility] [id number] NMR Profile (25106) 46 mg/dL Normal Compr ensive Internal Medicine; [facility] Work Phone: Comment on above: Test(s) 597970-JHH-Z ; 799732-EXT-H; 514809-Rwdueuckboxma; 339274-Jtjnkgebyzv, Total; 743629-XNI-Y (Total); 784316-Efnpf LDL-P; 226785-GRZ Size; 028616-IH-GG Scorewas developed and its performance characteristics determinedby [employer]. It has not been cleared or approved by the Foodand Drug Administration.PATIENT WAS FASTINGPERFORMED BY: [employer] [id number] BY: AetherPalAncora Psychiatric HospitalOehvug23[address] [facility] [id number] NMR Profile (45869) 77 mg/dL Normal 0-99 Compr ehensive Internal Medicine; [facility] Work Phone: Comment on above: . Optimal < 100 Abov e optimal 100 - 129 Borderline 130 - 159 High 160 - 189 Very high > 189 . Test(s) 987775-KJW-F ; 521314-IKZ-V; 243305-Xphjqgkkfdqkx; 103987-Twrzqdzvkzc, Total; 346095-ICM-Z (Total); 447755-Rnzdr LDL-P; 115958-EAC Size; 949307-UJ-JL Scorewas developed and its performance characteristics determinedby [employer]. It has not been cleared or approved by the Foodand Drug Administration.PATIENT WAS FASTINGPERFORMED BY: [facility] [address] [id number] BY: Vyyo70 KonkuraFormerly [facility] [id number] NMR Profile (60583) 164 mg/dL Abnormal 0-149 Compr ehensive Internal Medicine; [facility] Work Phone: NMR Profile (39582) 151 mg/dL Normal 100-199 Compr ehensive Internal Medicine; [facility] Work Phone: TSH ([phone])Ordered By: Ronald woodson Lobster Catcher on 08-05-2020 TSH Qn 1.900 {uIU/mL} Normal 0.450-4.50 0 [facility]; [facility] Work Phone: Comment on above: Test(s) 498220-XFE-W ; 626732-LHJ-H; 197437-Wumviixjrltrn; 331263-Cofeqzcbetr, Total; 019461-CQT-F (Total); 463444-Ahfnm LDL-P; 705239-FAU Size; 943143-PL-VI Scorewas developed and its performance characteristics determinedby [employer]. It has not been cleared or approved by the Foodand Drug Administration.PATIENT WAS FASTINGPERFORMED BY: [facility] [address] [id number] BY: AppSame6370 [address] ReClaimsFormerly [facility] [id number] Nicolás 03-25-2018 CNOV Office Visit (AGMIL) JANICE HODGES ([id number]) 1945 MDate Time Provider Einzlqfgvx91/12/18 11:45 AM SUNG BAUGH During your visit today, we recorded the following information about you: Pulse Respiration Blood pressure Weight 78/minute 16/minute 136/70 79.4 kg Height 1.778 Jo Baugh MD 03/25/2018 12:18 PM SignedPatient is seen back to discuss findings on his CT angiogram. Interestingly hisCT angiogram really fails to show any significant blockages in hisfemoral-femoral bypass or that would explain his claudication down the leg. Freddie think his claudication in the buttock is explained by the fact that he hasocclusion at his common iliac on this side and he is filling his hip andbuttock muscles with collaterals off of the common femoral on the left. Withthat being the case I don't think that were going to get rid of thatclaudication simply. At this point I really do not see anything that I couldintervene on he does have palpable pulses in the feet and is well and I reallyfeel intervening at this point in time is probably not indicated. He was placedon cilostazol and he seems to be having issues with that he is having morebruising with that as well as some leg swelling. He also has not noticed anychange in his claudication symptoms and with that being the case I would be infavor of probably stopping the cilostazol as it does not seem to be having muchbenefit and may be having side effects. I tell the patient that I will see himback in October to see how his symptomatology has progressed and I will follow-upwith him at that time. I tell him I really don't have any good answers for whatwe can do regarding his buttock claudication as we really can't revascularizethat area well given the level of his occlusion.I spent 15 minutes in thevisit, with more than 50% of the total gltl-pj-vwyg time of the visit incounseling / coordination of care.Referring Provider: BISI MARTINEZ [[id number]]Allergies As of Date: 03/25/2018(No Known Allergies)Date Reviewed: 10/12/2018Reviewed by: Sung Baugh - Fully AssessedReason for Visit: Peripheral Vascular Disease (PVD) [3545] Cmt: Merrick is here for 1 month follow up. CTA abd/pelvis with runoff done 03/07/18Primary Visit Diagnosis:PVD (peripheral vascular disease) (HCC) [I73.9] Other Visit Diagnosis:Claudication (HCC) [I73.9]Prescriptions as of 03/25/2018 Sig: CILOSTAZOL 100 MG [...] once d* Patient not taking: Reported on 01/28/2018Problem List As Of Date 03/25/2018 Noted Resolved BENIGN AMANDA GI TRACT NEC/NOS [D13.9] INVALID FOR* DIVERTICULOSIS OF COLON W/O BLEED [K57.30] INVALID FOR* INT HEMORRHOID W/O COMPL [K64.8] INVALID FOR* Cellulitis and abscess of unspecified site [L03*INVALID FOR* ALTHEA (obstructive sleep apnea) [G47.33] INVALID FOR* HTN (hypertension) [I10] INVALID FOR* PVD (peripheral vascular disease) (HCC) [I73.9] Carotid stenosis [I65.29]Disposition: Return in about 7 months (around 10/23/2018) for PVD.Follow-up and Disposition History RecordedLetter TextEncounter Number: [id number] Status:Closed by SUNG BAUGH MD on 03/25/18 [facility] PROGRESSon 03-25-2018 Protein mass conc HNO ID: [id number] thor: Sung BaughService: (none)Author Type: PhysicianType: Progress NotesFiled: 03/25/2018 12:18 PMNote Text:Patient is seen back to discuss findings on his CT angiogram.Interestingly his CT angiogram really fails to show any significantblockages in his femoral-femoral bypass or that would explain hisclaudication down the leg. I do think his claudication in the buttock isexplained by the fact that he has occlusion at his common iliac on thisside and he is filling his hip and buttock muscles with collaterals off ofthe common femoral on the left. With that being the case I don't thinkthat were going to get rid of that claudication simply. At this point Ireally do not see anything that I could intervene on he does have palpablepulses in the feet and is well and I really feel intervening at this pointin time is probably not indicated. He was placed on cilostazol and heseems to be having issues with that he is having more bruising with thatas well as some leg swelling. He also has not noticed any change in hisclaudication symptoms and with that being the case I would be in favor ofprobably stopping the cilostazol as it does not seem to be having muchbenefit and may be having side effects. I tell the patient that I will seehim back in October to see how his symptomatology has progressed and I willfollow-up with him at that time. I tell him I really don't have any goodanswers for what we can do regarding his buttock claudication as we reallycan't revascularize that area well given the level of his occlusion.Ispent 15 minutes in the visit, with more than 50% of the smmqumych-hx-zzpu time of the visit in counseling / coordination of care. Normal [facility] CT 3D POST PROCESSINGon 02-13 CT 3D POST PROCESSING * * *Final Report* * *DATE OF EXAM: Mar 07 2018 1:04PM [facility] [place] [facility] - CT 3D POST PROCESSING / REASON: R09.89-Other specified symptoms and signs involving the circulatory and respirat * * * * Physician Interpretation * * * * CT ANGIOGRAM OF THE ABDOMEN, PELVIS, AND BILATERAL LOWER EXTREMITIESHISTORY:72-YEA R-OLD MALE STATUS POST CROSS FEMORAL BYPASS GRAFT WITH COMPLAINT OF LEFT HIP AND BUTTOCK CLAUDICATION.TECHNIQUE: High-resolution contrast-enhanced helical CT of the abdomen, pelvis and both lower extremities was performed, timed to the arterial phase. 3-D processing was performed by the physician on an independent work station, with MIP and volume-rendering techniques. Total of 100 ml of Omnipaque 350 was injected IV during the examination. The study was performed without oral contrast. The patient tolerated the injection without complications.Dose-Length Product (DLP): 491 mGy*cm.CT Dose Reduction Employed: Automated exposure control (AEC)RESULT:COMPARISON: No prior studies are available for comparison.ABDOMEN:Images of the aorta demonstrate diffuse atherosclerotic change without significant focal stenosis or aneurysm.Celiac artery demonstrates no significant focal stenosis.Superior mesenteric artery demonstrates < 30 % narrowing.Inferior mesenteric artery originates from mild atherosclerotic plaque but demonstrates no significant focal stenosis.There is a single right renal artery. Right renal artery demonstrates no significant focal stenosis. There is a single renal vein which is patent.There is a single left renal artery. Left renal artery demonstrates no significant focal stenosis. There is a single renal vein which is patent.RIGHT LEG:Right common iliac artery demonstrates focal moderate (40-60 %) stenosis.Right external iliac artery demonstrates diffuse atherosclerotic change without significant focal stenosis.Right internal iliac artery demonstrates diffuse atherosclerotic change without significant focal stenosis.Right common femoral artery demonstrates diffuse atherosclerotic change without significant focal stenosis. There is a patent cross femoral bypass graft to the left common femoral artery.Caudal to this, the Right profunda femoris artery is patent with no significant stenosis.Right superficial femoral artery demonstrates diffuse atherosclerotic change without significant focal stenosis.Right popliteal artery demonstrates diffuse atherosclerotic change without significant focal stenosis.Right anterior tibial artery is patent with no significant stenosis. Dorsalis pedis is seen and normal in appearance.Right tibioperoneal trunk is with no significant stenosis.Right posterior tibial artery is patent with no significant stenosis. Posterior tibial artery is normal in caliber and seen to the foot.Right peroneal artery is patent with no significant stenosis.LEFT LEG:Left common iliac artery is occluded at its origin. Left external iliac artery is occluded. The left lower extremity supplied via the patent cross femoral bypass graft from the right side.Left internal iliac artery is reconstituted distally via cross pelvis collaterals..Left common femoral artery is is patent with a focal atherosclerotic calcification but without significant stenosis.Left profunda femoris artery is patent with no significant stenosis.Left superficial femoral artery is patent with no significant stenosis.Left popliteal artery is patent with no significant stenosis.Left anterior tibial artery is patent with no significant stenosis. Dorsalis pedis is seen and normal in appearance.Left tibioperoneal trunk is patent with no significant stenosis.Left posterior tibial artery is patent with no significant stenosis. Posterior tibial artery is normal in caliber and seen to the foot.Left peroneal artery is patent with no significant stenosis.NONVASCULAR FINDINGS:Images through the lung bases demonstrate changes consistent with emphysema. No masses or pleural effusions are identified.Liver, gallbladder, pancreas, spleen, bilateral adrenal glands, right kidney,are unremarkable. There is a 1.7 cm rounded hypodensity at the ventral surface of the lower pole of the left kidney with a intermediate Hounsfield unit density (26 HU), which may represent a proteinaceous cyst. 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 THERE IS THREE-VESSEL CALF RUNOFF BILATERALLY.1.7 CM ROUNDED HYPODENSITY AT THE VENTRAL SURFACE OF THE LOWER POLE OF THE LEFT KIDNEY WITH AN INTERMEDIATE HOUNSFIELD UNIT DENSITY, WHICH MAY REPRESENT A PROTEINACEOUS CYST. COMPARISON WITH PRIOR STUDIES IF AVAILABLE OR FURTHER EVALUATION WITH ULTRASOUND IS RECOMMENDED.Can Filling Machine Operator ist: PSCB Transcribe Date/Time: Mar 07 2018 2:18PDictated by : AMADO RANKIN MDThis examination was interpreted and the report reviewed and electronically signed by: AMADO RANKIN MD on Mar 07 2018 2:59PM [id number] [facility] CTA ABD/PEL/LOWER EXT W IVCO Non 03-07-2018 CTA ABD/PEL/LOWER EXT W IVCON * * *Final Report* * *DATE OF EXAM: Mar 07 2018 1:03PM [facility] [place] [facility] - CTA ABD/PEL/LOWER EXT W IVCON / REASON: R09.89-Other specified symptoms and signs involving the circulatory and respirat * * * * Physician Interpretation * * * * CT ANGIOGRAM OF THE ABDOMEN, PELVIS, AND BILATERAL LOWER EXTREMITIESHISTORY:72-YEA R-OLD MALE STATUS POST CROSS FEMORAL BYPASS GRAFT WITH COMPLAINT OF LEFT HIP AND BUTTOCK CLAUDICATION.TECHNIQUE: High-resolution contrast-enhanced helical CT of the abdomen, pelvis and both lower extremities was performed, timed to the arterial phase. 3-D processing was performed by the physician on an independent work station, with MIP and volume-rendering techniques. Total of 100 ml of Omnipaque 350 was injected IV during the examination. The study was performed without oral contrast. The patient tolerated the injection without complications.Dose-Length Product (DLP): 491 mGy*cm.CT Dose Reduction Employed: Automated exposure control (AEC)RESULT:COMPARISON: No prior studies are available for comparison.ABDOMEN:Images of the aorta demonstrate diffuse atherosclerotic change without significant focal stenosis or aneurysm.Celiac artery demonstrates no significant focal stenosis.Superior mesenteric artery demonstrates < 30 % narrowing.Inferior mesenteric artery originates from mild atherosclerotic plaque but demonstrates no significant focal stenosis.There is a single right renal artery. Right renal artery demonstrates no significant focal stenosis. There is a single renal vein which is patent.There is a single left renal artery. Left renal artery demonstrates no significant focal stenosis. There is a single renal vein which is patent.RIGHT LEG:Right common iliac artery demonstrates focal moderate (40-60 %) stenosis.Right external iliac artery demonstrates diffuse atherosclerotic change without significant focal stenosis.Right internal iliac artery demonstrates diffuse atherosclerotic change without significant focal stenosis.Right common femoral artery demonstrates diffuse atherosclerotic change without significant focal stenosis. There is a patent cross femoral bypass graft to the left common femoral artery.Caudal to this, the Right profunda femoris artery is patent with no significant stenosis.Right superficial femoral artery demonstrates diffuse atherosclerotic change without significant focal stenosis.Right popliteal artery demonstrates diffuse atherosclerotic change without significant focal stenosis.Right anterior tibial artery is patent with no significant stenosis. Dorsalis pedis is seen and normal in appearance.Right tibioperoneal trunk is with no significant stenosis.Right posterior tibial artery is patent with no significant stenosis. Posterior tibial artery is normal in caliber and seen to the foot.Right peroneal artery is patent with no significant stenosis.LEFT LEG:Left common iliac artery is occluded at its origin. Left external iliac artery is occluded. The left lower extremity supplied via the patent cross femoral bypass graft from the right side.Left internal iliac artery is reconstituted distally via cross pelvis collaterals..Left common femoral artery is is patent with a focal atherosclerotic calcification but without significant stenosis.Left profunda femoris artery is patent with no significant stenosis.Left superficial femoral artery is patent with no significant stenosis.Left popliteal artery is patent with no significant stenosis.Left anterior tibial artery is patent with no significant stenosis. Dorsalis pedis is seen and normal in appearance.Left tibioperoneal trunk is patent with no significant stenosis.Left posterior tibial artery is patent with no significant stenosis. Posterior tibial artery is normal in caliber and seen to the foot.Left peroneal artery is patent with no significant stenosis.NONVASCULAR FINDINGS:Images through the lung bases demonstrate changes consistent with emphysema. No masses or pleural effusions are identified.Liver, gallbladder, pancreas, spleen, bilateral adrenal glands, right kidney,are unremarkable. There is a 1.7 cm rounded hypodensity at the ventral surface of the lower pole of the left kidney with a intermediate Hounsfield unit density (26 HU), which may represent a proteinaceous cyst. 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 THERE IS THREE-VESSEL CALF RUNOFF BILATERALLY.1.7 CM ROUNDED HYPODENSITY AT THE VENTRAL SURFACE OF THE LOWER POLE OF THE LEFT KIDNEY WITH AN INTERMEDIATE HOUNSFIELD UNIT DENSITY, WHICH MAY REPRESENT A PROTEINACEOUS CYST. COMPARISON WITH PRIOR STUDIES IF AVAILABLE OR FURTHER EVALUATION WITH ULTRASOUND IS RECOMMENDED.Can Filling Machine Operator ist: PSCB Transcribe Date/Time: Mar 07 2018 2:18PDictated by : AMADO RANKIN MDThis examination was interpreted and the report reviewed and electronically signed by: AMADO RANKIN MD on Mar 07 2018 2:59PM [id number] [facility] CNOVon 02-25-2018 OV Office Visit (AGMIL) JANICE HODGES ([id number]) 1945 MDate Time Provider Department02/25/18 9:30 AM SUNG BAUGH During your visit today, we recorded the following information about you: Pulse Respiration Blood pressure Weight 100/minute 18/minute 124/64 79.4 kg Height 1.778 Jo Baugh MD 02/25/2018 10:04 AM SignedThis patient continues to complain of left leg hip and buttock claudication andat this point states that this really hasn't gotten any better even though hewas started on cilostazol for this. He continues to try to walk but states thatif he walks from the front of the building to the back of the building hecontinues to get buttock claudication. This is primarily in the left hip andbuttock area. He does have a history of some significant back surgery but areankle-brachial indices do show that he has a slight decrease to about 0.7 onthe left. With this being the case I would potentially think that he could havesome issue with his femoral-femoral bypass or he that he does not have muchpelvic backflow from the femoral-femoral bypass. For this reason I'm going togo ahead and order a CT angiogram to determine if there is anything furtherthat we could do to try to help with this and to see what the pelviccirculation looks like on the left side. I'm going to go ahead and get the CTangiogram and follow up with the patient in 1 month.I spent 15 minutes in thevisit, with more than 50% of the total hbcl-dl-yarl time of the visit incounseling / coordination of care.Referring Provider: BISI MARTINEZ [[id number]]Allergies As of Date: 02/25/2018(No Known Allergies)Date Reviewed: 02/25/2018Reviewed by: Sung Baugh - Fully AssessedReason for Visit: Peripheral Vascular Disease (PVD) [3545] Cmt: PVR done 02 02 18Reason For Visit History RecordedPrimary Visit Diagnosis:PVD (peripheral vascular disease) (HCC) [I73.9] Other Visit Diagnoses:Claudication (HCC) [I73.9] Screening for nephropathy [Z13.89] Diminished pulses in lower extremity [R09.89]Order(s):CREATINI NE BLD [SQCRET] Order #: [id number] FUTURE CTA ABD/PEL LOWER EXTREM W IVCON [[id number]] Order #: [id number] FUTURE iv contrast (will be provided with [...] CT contrast administration guidelines link.Disp: 1 EachRfl: 0Prescriptions as of 02/25/2018 Sig: CILOSTAZOL 100 MG [...] MG TABLET Take one (1) tablet daily .Problem List As Of Date 02/25/2018 Noted Resolved BENIGN AMANDA GI TRACT NEC/NOS [D13.9] INVALID FOR* DIVERTICULOSIS OF COLON W/O BLEED [K57.30] INVALID FOR* INT HEMORRHOID W/O COMPL [K64.8] INVALID FOR* Cellulitis and abscess of unspecified site [L03*INVALID FOR* ALTHEA (obstructive sleep apnea) [G47.33] INVALID FOR* HTN (hypertension) [I10] INVALID FOR* PVD (peripheral vascular disease) (HCC) [I73.9] Carotid stenosis [I65.29]Prescriptions ordered this encounter Disp Refills Start End [...] in the CT contrast administration guidelines link. Status:Closed by SUNG BAUGH MD on 02/25/18 Normal [facility] PROGRESSon 02-25-2018 Protein mass conc HNO ID: [id number] thor: Sung Sinha: (none)Author Type: PhysicianType: Progress NotesFiled: 02/25/2018 10:04 AMNote Text:This patient continues to complain of left leg hip and buttockclaudication and at this point states that this really hasn't gotten anybetter even though he was started on cilostazol for this. He continues totry to walk but states that if he walks from the front of the building tothe back of the building he continues to get buttock claudication. This isprimarily in the left hip and buttock area. He does have a history of somesignificant back surgery but are ankle-brachial indices do show that hehas a slight decrease to about 0.7 on the left. With this being the case Iwould potentially think that he could have some issue with hisfemoral-femoral bypass or he that he does not have much pelvic backflowfrom the femoral-femoral bypass. For this reason I'm going to go ahead andorder a CT angiogram to determine if there is anything further that wecould do to try to help with this and to see what the pelvic circulationlooks like on the left side. I'm going to go ahead and get the CTangiogram and follow up with the patient in 1 month.I spent 15 minutes inthe visit, with more than 50% of the total oomb-oh-lydd time of the visitin counseling / coordination of care. Normal [facility] PROGRESSon 01-30-2018 Protein mass conc HNO ID: [id number] thor: Sung Sinha: (none)Author Type: PhysicianType: Progress NotesFiled: 01/30/2018 11:01 AMNote Text:This patient is seen back today for persistent complaints of claudicationin his left leg. At this point in time I really don't have a goodexplanation for this. He has had significant workup for this includingaccording to the patient and [facility]. He is status post femoral-femoral bypass thatabout 20 years old and he has no evidence of any decreased pulses ineither lower extremity. He has good palpable pulses with pink warm feetbilaterally. Apparently [facility] the [facility] from what I can gather they sawincreased velocities in the femoral-femoral bypass and therefore performthe arteriogram. This actually was something that I would have potentiallyrecommended given the fact that the patient continues to complain of leftleg claudication without obvious reason for this. However since this isbeen performed I do say that we would like to get copies of this andreevaluated. I really don't have anything to explain this other than thefact that the patient has had some back issues as well. He seems to havehad extensive back surgery though that should have corrected his left legpain if that was the etiology. At this point in time I'm not certain whythe patient has ongoing claudication symptoms but he does and at thisjuncture I will probably recommend that we follow-up with him in a monthor so we probably should get lower extremity Dopplers at some point to seeif there is any drop in pressure with exercise testing. We are going to goahead and order those and then I will follow-up with the patient afterthose are performed to see if there is anything that I can find that mightexplain his current symptomatology.I spent 15 minutes in the visit, withmore than 50% of the total uywu-og-ukwi time of the visit in counseling /coordination of care. Normal [facility] CNOVon 01-28-2018 CNOV Office Visit (AGMIL) JANICE HODGES ([id number]) 1945 MDate Time Provider Department01/28/18 10:45 AM SUNG BAUGH During your visit today, we recorded the following information about you: Pulse Respiration Blood pressure Weight 72/minute 16/minute 132/70 79.4 kg Height 1.778 Jo Baugh MD 01/30/2018 11:01 AM SignedThis patient is seen back today for persistent complaints of claudication inhis left leg. At this point in time I really don't have a good explanation forthis. He has had significant workup for this including according to the patientand her recent [facility]. Heis status post femoral-femoral bypass that about 21 years old and he has noevidence of any decreased pulses in either lower extremity. He has goodpalpable pulses with pink warm feet bilaterally. Apparently at the [facility] from whatI can gather they saw increased velocities in the femoral-femoral bypass andtherefore perform the arteriogram. This actually was something that I wouldhave potentially recommended given the fact that the patient continues tocomplain of left leg claudication without obvious reason for this. Howeversince this is been performed I do say that we would like to get copies of thisand reevaluated. I really don't have anything to explain this other than thefact that the patient has had some back issues as well. He seems to have hadextensive back surgery though that should have corrected his left leg pain ifthat was the etiology. At this point in time I'm not certain why the patienthas ongoing claudication symptoms but he does and at this juncture I willprobably recommend that we follow-up with him in a month or so we probablyshould get lower extremity Dopplers at some point to see if there is any dropin pressure with exercise testing. We are going to go ahead and order those andthen I will follow-up with the patient after those are performed to see ifthere is anything that I can find that might explain his currentsymptomatology.I spent 15 minutes in the visit, with more than 50% of the dfabedyfy-am-rvem time of the visit in counseling / coordination of care.Referring Provider: BISI MARTINEZ [[id number]]Allergies As of Date: 01/28/2018(No Known Allergies)Date Reviewed: 01/28/2018Reviewed by: Karissa Marco Antonio [employer] - Fully AssessedReason for Visit: Peripheral Vascular Disease (PVD) [3545] Cmt: Merrick is here with increaed Lt leg pain Stenosis [1326] Cmt: carotid stenosisReason For Visit History RecordedPrimary Visit Diagnosis:PVD (peripheral vascular disease) (HCC) [I73.9] Other Visit Diagnosis:Claudication (HCC) [I73.9]Order(s):PVR ANK PRESS W/EXC [facility] [[id number]] Order #: [id number] FUTUREPrescriptions as of 01/28/2018 Sig: ASPIRIN 81 MG [...] MG TABLET Take one (1) tablet daily .Problem List As Of Date 01/28/2018 Noted Resolved BENIGN AMANDA GI TRACT NEC/NOS [D13.9] INVALID FOR* DIVERTICULOSIS OF COLON W/O BLEED [K57.30] INVALID FOR* INT HEMORRHOID W/O COMPL [K64.8] INVALID FOR* Cellulitis and abscess of unspecified site [L03*INVALID FOR* ALTHEA (obstructive sleep apnea) [G47.33] INVALID FOR* HTN (hypertension) [I10] INVALID FOR* PVD (peripheral vascular disease) ([facility]) [I73.9] Carotid stenosis [I65.29] Status:Closed by SUNG BAUGH MD on 01/30/18 Normal [facility] Lipid ProfileOrdered By: Zohra tem Lobster Catcher on 12-27-2017 Cholesterol in HDL mass conc 60 mg/dL Normal [facility] Work Phone: Comment on above: The drugs N-Acetylcy steine and Metamizole may falselydepress this assay. Reference Range HDL <40 mg/dL Low HDL Cholesterol HDL >or= 60 mg/dL High HDL Cholesterol Cholesterol in LDL mass conc 64 mg/dL Normal 0-130 [facility] Internal Medicine Work Phone: Cholesterol mass conc 150 mg/dL Normal Com prehensive [facility] Work Phone: Comment on above: <200 mg/dL Desirable 200-240 mg/dL Borderline >240 mg/dL High Risk Triglyceride mass conc 128 mg/dL Normal [facility] Internal Medicine Work Phone: Comment on above: The drugs N-Acetylcy steine and Metamizole may falselydepress this assay.Serum Triglycerides Reference Interval Normal <150 mg/dL Borderline high 150 - 199 mg/dL High 200 - 499 mg/dL Very High > or = 500 mg/dL Lipid Profile 26 mg/dL Normal 5-40 [facility]pre[facility] Work Phone: Liver ProfileOrdered By: Zohra tem Lobster Catcher on 12-27-2017 Albumin mass conc 4.0 g/dL Normal 3.2-5.0 Compreh ensive [facility] Medicine Work Phone: ALP enzyme act/vol 80 U/L Normal 45-117 [facility] Work [facility]: ALT enzyme act/vol 40 U/L Normal 16-61 [facility] Internal Medicine Work Phone: AST enzyme act/vol 25 U/L Normal 15-37 [facility] Internal Medicine Work Phone: Bilirubin mass conc 0.60 mg/dL Normal 0.20-1.00 [facility] ehensive Internal Medicine Work Phone: Bilirubin.direct mass conc 0.16 mg/dL Normal 0.00-0.30 [facility] Internal Medicine Work Phone: Globulin Calculated mass conc (S) 3.5 g/dL Normal 2.2-4.2 [facility] Internal Medicine Work Phone: Protein mass conc 7.5 g/dL Normal 6.4-8.2 [facility] ensive Internal Medicine Work Phone: Lab Report: Lipid Profileon 06-30-2017 Lipoprotein.pre-beta [Mass/Vol] 30 mg/dL Invalid Interpretation Code 5-40 [facility] Work Phone: Lab Report: Liver Profileon 06-30-2017 ALP (Bld) [Catalytic activity/Vol] 100 U/L Invalid Interpretation Code 45-117 [facility] Work Phone: Globulin (S) [Mass/Vol] 3.8 g/dL Invalid Interpretation Code 2.2-4.2 [facility] Work Phone: Lipid ProfileOrdered By: [employer] Lobster Catcher on 06-30-2017 Cholesterol [Mass/Vol] 143 mg/dL Normal [facility] Work Phone: Comment on above: <200 mg/dL Desirable 200-240 mg/dL Borderline >240 mg/dL High Risk Cholesterol in HDL [Mass/Vol] 57 mg/dL Normal [facility] Work Phone: Comment on above: The drugs N-Acetylcy steine and Metamizole may falselydepress this assay. Reference Range HDL <40 mg/dL Low HDL Cholesterol HDL >or= 60 mg/dL High HDL Cholesterol Cholesterol in LDL [Mass/Vol] 56 mg/dL Normal 0-130 [facility] Work Phone: Triglyceride [Mass/Vol] 150 mg/dL Normal [facility] Work Phone: Comment on above: The drugs N-Acetylcy steine and Metamizole may falselydepress this assay.Serum Triglycerides Reference Interval Normal <150 mg/dL Borderline high 150 - 199 mg/dL High 200 - 499 mg/dL Very High > or = 500 mg/dL Lipid Profile 30 mg/dL Normal 5-40 Comprehensi ve [facility] Medicine Work Phone: Liver ProfileOrdered By: [employer] Lobster Catcher on 06-30-2017 Albumin [Mass/Vol] 4.0 g/dL Normal 3.4-5.0 [facility] Work Phone: Comment on above: Please note revised Albumin AND Globulin reference rangeeffective 2017. ALP enzyme act/vol 100 U/L Normal 45-117 Compre hens[facility] Work Phone: ALT [Catalytic activity/Vol] 39 U/L Normal 12-78 [facility] Work Phone: AST [Catalytic activity/Vol] 21 U/L Normal 15-37 [facility] Work Phone: Bilirubin [Mass/Vol] 0.50 mg/dL Normal 0.20-1.[address] [facility] Work Phone: Bilirubin.direct [Mass/Vol] 0.16 mg/dL Normal 0.00-0.30 [facility] Work Phone: Globulin Calculated mass conc (S) 3.8 g/dL Normal 2.2-4.2 [facility] Work Phone: Protein [Mass/Vol] 7.8 g/dL Normal 6.4-8.2 [facility] Work Phone: PSA (PROSTATE SPECIFIC ANTIG EN) (V76.44)Ordered By: Housekeeper/Laundry Assistant on 03-25-2017 Prostate specific Ag mass conc 0.9 ng/mL Normal 0.0-4.0 [facility] Work Phone: Comment on above: Actual Experience ECLIA methodol ogy. .According to the [place] [employer], Serum PSA shoulddecrease and remain at undetectable levels after radicalprostatectomy. The AUA defines biochemical recurrence as an initialPSA value 0.2 ng/mL or greater followed by a subsequent confirmatoryPSA value 0.2 ng/mL or greater.Values obtained with different assay methods or kits cannot be usedinterchangeably. Results cannot be interpreted as absolute evidenceof the presence or absence of malignant disease. PATIENT NOT FASTINGP ERFORMED BY: Vyyo70 My [facility]ist ID [id number] CBC W/AUTO DIFF WBC ([id number])O rdered By: Housekeeper/Laundry Assistant on 03-18-2017 Basophils (Bld) [#/Vol] 0.0 {x10E3/uL} Normal 0.0-0.2 [facility] Work Phone: Comment on above: also send results to [place] [address] [facility] Pre- Adm testing; PATIENT NOT FASTINGPERFORMED BY: [employer] ID [id number] Information: [id number], 710197 Basophils (Bld) [#/Vol] 0.0 10*3/uL Normal 0.0-0.2 [facility]; [facility] Work Phone: Comment on above: also send results to [address] Pre- Adm testing; PATIENT NOT FASTINGPERFORMED BY: [facility] [facility] [address] [id number] Information: L10011, 313363 Basophils Auto #/vol (Bld) 0.0 {x10E3/uL} Normal 0.0-0.2 [facility] Work Phone: Basophils/100 WBC (Bld) 1 % Normal [facility] Work Phone: Comment on above: also send results to [address] Pre- Adm testing; PATIENT NOT FASTINGPERFORMED BY: [place] [id number] [id number] Information: [id number], 632371 Basophils/100 WBC Auto (Bld) 1 % Normal [facility] Work Phone: Eosinophils (Bld) [#/Vol] 0.2 {x10E3/uL} Normal 0.0-0.4 [facility] Work Phone: Comment on above: also send results to [address] Pre- Adm testing; PATIENT NOT FASTINGPERFORMED BY: [place] [id number] [facility] [id number] Information: K43588, 201501 Eosinophils (Bld) [#/Vol] 0.2 10*3/uL Normal 0.0-0.4 [facility]; [facility] Work Phone: Comment on above: also send results to [address] Pre- Adm testing; PATIENT NOT FASTINGPERFORMED BY: [facility] [id number] Information: [id number], [id number] Eosinophils Auto #/vol (Bld) 0.2 {x10E3/uL} Normal 0.0-0.4 [facility] Work Phone: Eosinophils/100 WBC (Bld) 3 % Normal [facility] Work Phone: Comment on above: also send results to PAT [phone] [place] [address] Pre- Adm testing; PATIENT NOT FASTINGPERFORMED BY: TERRELL [employer]70 CubeTreeSelect [facility] [id number] Information: [id number], 184753 Eosinophils/100 WBC Auto (Bld) 3 % Normal [facility] Work Phone: Erythrocyte distribution width (RBC) [Ratio] 13.4 % Normal 12.3-15.4 [facility] Work Phone: Comment on above: also send results to PAT [phone] [place] [address] Pre- Adm testing; PATIENT NOT FASTINGPERFORMED BY: TERRELL [employer]70 KonkuraFormerly [facility] [id number] Information: N97907, 825007 Erythrocyte distribution width Auto Ratio (RBC) 13.4 % Normal 12.3-15.4 [facility] Work Phone: Hematocrit (Bld) [Volume fraction] 45.3 % Normal 37.5-51.0 [facility] Work Phone: Comment on above: also send results to PAT [phone] [place] [address] Pre- Adm testing; PATIENT NOT FASTINGPERFORMED BY: [employer] Tdduih0936 [place] Klee Data SystemSelect Specialty Hospital [facility] [id number] Information: G54729, 388855 Hematocrit Auto Volume Fraction (Bld) 45.3 % Normal 37.5-51.[address] [facility] Internal Medicine Work Phone: Hemoglobin mass conc (Bld) 15.4 g/dL Normal 12.6-17.7 [facility] Work Phone: Comment on above: also send results to PAT [phone] [place] [address] Pre- Adm testing; PATIENT NOT FASTINGPERFORMED BY: [employer] Nkzenc5471 [place] Klee Data SystemSelect Specialty Hospital [facility] [id number] Information: [id number], 854950 Immature granulocytes #/vol (Bld) 0.0 {x10E3/uL} Normal 0.0-0.1 [facility] Work Phone: Comment on above: also send results to [address] Pre- Adm testing; PATIENT NOT FASTINGPERFORMED BY: [facility] [id number] Information: [id number], 166013 Immature granulocytes (Bld) [#/Vol] 0.0 10*3/uL Normal 0.0-0.1 [facility]; [facility] Work Phone: Comment on above: also send results to [address] Pre- Adm testing; PATIENT NOT FASTINGPERFORMED BY: [address] [id number] Information: C19834, 875737 Immature granulocytes/100 WBC (Bld) 0 % Normal [facility] Work Phone: Comment on above: also send results to [address] Pre- Adm testing; PATIENT NOT FASTINGPERFORMED BY: [place] [id number] [facility] [id number] Information: [id number], 484698 Lymphocytes (Bld) [#/Vol] 1.8 {x10E3/uL} Normal 0.7-3.1 [facility] Work Phone: Comment on above: also send results to [address] Pre- Adm testing; PATIENT NOT FASTINGPERFORMED BY: [place] [id number] [facility] [id number] Information: [id number], 863733 Lymphocytes (Bld) [#/Vol] 1.8 10*3/uL Normal 0.7-3.1 [facility]; [facility] Work Phone: Comment on above: also send results to PAT [phone] [place] [address] Pre- Adm testing; PATIENT NOT FASTINGPERFORMED BY: GroupsiteAsc[facility] Providence Hospital[address] [id number] Information: [id number], [id number] Lymphocytes Auto #/vol (Bld) 1.8 {x10E3/uL} Normal 0.7-3.1 [facility] Work Phone: Lymphocytes/100 WBC (Bld) 27 % Normal [facility] Work Phone: Comment on above: also send results to [address] Pre- Adm testing; PATIENT NOT FASTINGPERFORMED BY: JumpStartAncora Psychiatric HospitalFoktmq54[address] [facility] [address] [id number] Information: G44451, 186146 Lymphocytes/100 WBC Auto (Bld) 27 % Normal [facility] Work Phone: MCH (RBC) [Entitic mass] 30.1 pg Normal 26.6-33.0 [facility] Work Phone: Comment on above: also send results to PAT [phone] [place] [address] Pre- Adm testing; PATIENT NOT FASTINGPERFORMED BY: JumpStartAncora Psychiatric HospitalJafijb[address] [id number] Information: L77392, 550449 MCH Auto Entitic mass (RBC) 30.1 pg Normal 26.6-33.0 [facility] Work Phone: MCHC (RBC) [Mass/Vol] 34.0 g/dL Normal 31.5-35.7 [facility] Internal Medicine Work Phone: Comment on above: also send results to PAT [phone] [place] [address] Pre- Adm testing; PATIENT NOT FASTINGPERFORMED BY: [facility] [id number] Information: [id number], [id number] MCHC Auto mass conc (RBC) 34.0 g/dL Normal 31.5-35.7 [facility] Work Phone: MCV (RBC) [Entitic vol] 89 fL Normal 79-97 [facility] Work Phone: Comment on above: also send results to PAT [phone] [place] [address] Pre- Adm testing; PATIENT NOT FASTINGPERFORMED BY: GroupsiteCoAncora Psychiatric HospitalHwfuvz24[address] [facility] [address] [id number] Information: [id number], [id number] MCV Auto Entitic volume (RBC) 89 fL Normal 79-97 [facility] Work Phone: Monocytes (Bld) [#/Vol] 0.8 {x10E3/uL} Normal 0.1-0.9 [facility] Work Phone: Comment on above: also send results to PAT [phone] [place] [address] Pre- Adm testing; PATIENT NOT FASTINGPERFORMED BY: JumpStartAncora Psychiatric HospitalLnhmba8[address] [id number] Information: [id number], 754204 Monocytes (Bld) [#/Vol] 0.8 10*3/uL Normal 0.1-0.9 [facility]; [facility] Work Phone: Comment on above: also send results to PAT [phone] [place] [address] Pre- Adm testing; PATIENT NOT FASTINGPERFORMED BY: [employer] Vmiaoj25[address] [id number] Information: [id number], [id number] Monocytes Auto #/vol (Bld) 0.8 {x10E3/uL} Normal 0.1-0.9 [facility] Work Phone: Monocytes/100 WBC (Bld) 11 % Normal [facility] Work Phone: Comment on above: also send results to PAT [phone] [place] [address] Pre- Adm testing; PATIENT NOT FASTINGPERFORMED BY: City HospitalKupu HawaiiAncora Psychiatric HospitalLzaeer[address] [id number] Information: [id number], [id number] Monocytes/100 WBC Auto (Bld) 11 % Normal [facility] Work Phone: Neutrophils (Bld) [#/Vol] 3.9 {x10E3/uL} Normal 1.4-7.0 [facility] Work Phone: Comment on above: also send results to PAT [phone] [place] [address] Pre- Adm testing; PATIENT NOT FASTINGPERFORMED BY: TERRELL GroupsiteInj carlos QuanHrfuhz119[address] [id number] Information: [id number], 196958 Neutrophils (Bld) [#/Vol] 3.9 10*3/uL Normal 1.4-7.0 [facility]; [facility] Work Phone: Comment on above: also send results to PAT [phone] [place] [address] Pre- Adm testing; PATIENT NOT FASTINGPERFORMED BY: TERRELL GroupsiteFreeman [facility] Mtaktv14[address] [id number] Information: [id number], [id number] Neutrophils Auto #/vol (Bld) 3.9 {x10E3/uL} Normal 1.4-7.0 [facility] Work Phone: Neutrophils/100 WBC (Bld) 58 % Normal [facility] Work Phone: Comment on above: also send results to PAT [phone] [place] [address] Pre- Adm testing; PATIENT NOT FASTINGPERFORMED BY: TERRELL [facility] Ooerho[address] [id number] Information: [id number], 932136 Neutrophils/100 WBC Auto (Bld) 58 % Normal [facility] Work Phone: Platelets (Bld) [#/Vol] 243 {x10E3/uL} Normal 150-379 [facility] Work Phone: Comment on above: also send results to PAT [phone] [place] [address] Pre- Adm testing; PATIENT NOT FASTINGPERFORMED BY: TERRELL [facility] Nbxaau[address] [id number] Information: [id number], [id number] Platelets (Bld) [#/Vol] 243 10*3/uL Normal 150-379 [facility]; [facility] Work Phone: Comment on above: also send results to PAT [phone] [place] [address] Pre- Adm testing; PATIENT NOT FASTINGPERFORMED BY: TERRELL [facility] Dfmrgm[address] [id number] Information: [id number], [id number] Platelets Auto #/vol (Bld) 243 {x10E3/uL} Normal 150-379 [facility] Work Phone: RBC (Bld) [#/Vol] 5.11 {x10E6/uL} Normal 4.14-5.80 [facility] Work Phone: Comment on above: also send results to PAT [phone] [place] [address] Pre- Adm testing; PATIENT NOT FASTINGPERFORMED BY: TERRELL [facility] Ptrjol94[address] [id number] Information: [id number], [id number] RBC (Bld) [#/Vol] 5.11 10*6/uL Normal 4.14-5.80 [facility] Internal [facility]; [facility] Work Phone: Comment on above: also send results to PAT [phone] [place] [address] Pre- Adm testing; PATIENT NOT FASTINGPERFORMED BY: TERRELL [employer] Qjnmhz09[address] [id number] Information: [id number], [id number] RBC Auto #/vol (Bld) 5.11 {x10E6/uL} Normal 4.14-5.80 [facility] Work Phone: WBC (Bld) [#/Vol] 6.7 {x10E3/uL} Normal 3.4-10.8 [facility] Internal Medicine Work Phone: Comment on above: also send results to PAT [phone] [place] [address] Pre- Adm testing; PATIENT NOT FASTINGPERFORMED BY: [facility] Plbyhi4[address] [id number] Information: [id number], [id number] WBC (Bld) [#/Vol] 6.7 10*3/uL Normal 3.4-10.8 [facility] Internal [facility]; [facility] Work Phone: Comment on above: also send results to [address] Pre- Adm testing; PATIENT NOT FASTINGPERFORMED BY: TERRELL LabFreeman [facility] Bxgemx[address] [id number] Information: [id number], [id number] WBC Auto #/vol (Bld) 6.7 {x10E3/uL} Normal 3.4-10.8 [facility] Work Phone: METABOLIC PANEL, COMPREHENSI VE ([id number])Ordered By: Housekeeper/Laundry Assistant on 03-18-2017 Albumin mass conc 4.7 g/dL Normal 3.5-4.8 Compreh ensive Internal Medicine Work Phone: Comment on above: send to [facility] Adm test ing [place] [address]; PATIENT NOT FASTINGPERFORMED BY: TERRELL LabFreeman [facility] Nbzorx[address] [id number] Albumin/Globulin mass ratio 1.9 {ratio} Normal 1.2-2.2 [facility] Work Phone: Comment on above: send to [facility] Adm test ing [place] [address]; PATIENT NOT FASTINGPERFORMED BY: TERRELL LabFreeman [facility] Wuyuut[address] [id number] ALP [Catalytic activity/Vol] 83 U/L Normal 39-117 [facility]; [facility] Work Phone: Comment on above: send to [facility] Adm test ing at [place] [address]; PATIENT NOT FASTINGPERFORMED BY: [facility] Cicgxi[address] [id number] ALP enzyme act/vol 83 [iU]/L Normal 39-117 [facility]pre [facility] Internal [facility] Work Phone: Comment on above: send to [facility] Adm test ing at [place] [address]; PATIENT NOT FASTINGPERFORMED BY: [facility] Zjhwnk[address] [id number] ALT [Catalytic activity/Vol] 34 U/L Normal 0-44 [facility]; [facility] Work Phone: Comment on above: send to PAT Adm test ing [place] [address]; PATIENT NOT FASTINGPERFORMED BY: [facility] Isfuom5193 [address] Roadblin [place] [id number] ALT enzyme act/vol 34 [iU]/L Normal 0-44 [facility] Internal Medicine Work Phone: Comment on above: send to PAT Adm test ing [place] [address]; PATIENT NOT FASTINGPERFORMED BY: CB [facility] Pwgwsj2990 [address]blin [place] [id number] AST [Catalytic activity/Vol] 27 U/L Normal 0-40 [facility]; [facility] Work Phone: Comment on above: send to PAT Adm test ing [place] [address]; PATIENT NOT FASTINGPERFORMED BY: [facility] Ufvsmb5085 [address] RoadDublin [place] [id number] AST enzyme act/vol 27 [iU]/L Normal 0-40 [facility] Internal Medicine Work Phone: Comment on above: send to PAT Adm test ing [place] [address]; PATIENT NOT FASTINGPERFORMED BY: [facility] Uxwatb[address] [facility] [place] [id number] Bilirubin mass conc 0.3 mg/dL Normal 0.0-1.2 [facility] Internal Medicine Work Phone: Comment on above: send to PAT Adm test ing [place] [address]; PATIENT NOT FASTINGPERFORMED BY: [facility] Fpngsf[address] [facility] [place] [id number] Calcium mass conc 9.6 mg/dL Normal 8.6-10.2 [facility] Internal Medicine Work Phone: Comment on above: send to PAT Adm test ing [place] [address]; PATIENT NOT FASTINGPERFORMED BY: CB [facility] Pxkopw[address] [facility] [place] [id number] Chloride molar conc 103 mmol/L Normal 96-106 Compr [facility] Internal Medicine Work Phone: Comment on above: send to PAT Adm test ing [place] [address]; PATIENT NOT FASTINGPERFORMED BY: CB [facility] Dspocf1116 [address] RoadDuin [place] [id number] CO2 molar conc 19 mmol/L Normal 18-29 Comprehens mary Internal Medicine Work Phone: Comment on above: send to PAT Adm test ing [place] [address]; PATIENT NOT FASTINGPERFORMED BY: CB [facility] Qhmvln0031 [address]Duin [place] [id number] Creatinine mass conc 0.91 mg/dL Normal 0.76-1.27 Comp [facility] Internal Medicine Work Phone: Comment on above: send to PAT Adm test ing [place] [address]; PATIENT NOT FASTINGPERFORMED BY: CB [facility] Iqyunb7295 [address] [facility]Select [facility] [id number] GFR/1.73 sq M predicted among blacks CKD-EPI vol rate/area (S/P/Bld) 98 mL/min/1.73 Normal Comprehensiv e Internal Medicine Work Phone: Comment on above: send to PAT Adm test ing [place] [address]; PATIENT NOT FASTINGPERFORMED BY: CB [facility] Hcwrso3971 [address] RoadSelect [facility] [id number] GFR/1.73 sq M predicted among non-blacks CKD-EPI vol rate/area (S/P/Bld) 85 mL/min/1.73 Normal [facility] Work Phone: Comment on above: send to PAT Adm test ing [place] [address]; PATIENT NOT FASTINGPERFORMED BY: CB [facility] Xepajy[address] [facility] [id number] Globulin (S) [Mass/Vol] 2.5 g/dL Normal 1.5-4.5 [facility] Work Phone: Comment on above: send to PAT Adm test ing [place] [address]; PATIENT NOT FASTINGPERFORMED BY: CB [facility] Pzhqfk2329 [address] RoadReplaced By [facility] [place] [id number] Globulin Calculated mass conc (S) 2.5 g/dL Normal 1.5-4.5 [facility] Work Phone: Glucose mass conc 109 mg/dL Abnormal 65-99 Compreh ensive Internal Medicine Work Phone: Comment on above: send to PAT Adm test ing [place] [address]; PATIENT NOT FASTINGPERFORMED BY: TERRELL [facility] Tqvcul3623 [address] RoadDublin [place] [id number] Potassium molar conc 4.6 mmol/L Normal 3.5-5.2 Comp rehensive Internal Medicine Work Phone: Comment on above: send to PAT Adm test ing [place] [address]; PATIENT NOT FASTINGPERFORMED BY: TERRELL [facility] Ecxpyi6129 [address] RoadDublin [place] [id number] Protein mass conc 7.2 g/dL Normal 6.0-8.5 Compreh ensive Internal Medicine Work Phone: Comment on above: send to PAT Adm test ing [place] [address]; PATIENT NOT FASTINGPERFORMED BY: TERRELL [facility] Wzsseo5964 [address] RoadDublin [place] [id number] Sodium molar conc 142 mmol/L Normal 134-144 Compreh ensive Internal Medicine Work Phone: Comment on above: send to PAT Adm test ing [place] [address]; PATIENT NOT FASTINGPERFORMED BY: TERRELL [facility] Gbhkgs0353 [address] RoadDuin [place] [id number] Urea nitrogen mass conc 15 mg/dL Normal 8-27 [facility] Work Phone: Comment on above: send to PAT Adm test ing [place] [address]; PATIENT NOT FASTINGPERFORMED BY: CB [facility] Qgdlbj0451 [address] RoadDublin [place] [id number] Urea nitrogen/Creatinine mass ratio 16 mg/mg Normal 10-24 [facility] Work Phone: Comment on above: send to PAT Adm test ing [place] [address]; PATIENT NOT FASTINGPERFORMED BY: CB [facility] Wyusan6631 [address] RoadDublin [place] [id number] PT (Prothrobim Time) (12686) Ordered By: Housekeeper/Laundry Assistant on 03-18-2017 INR Coag RelTime (PPP) 1.0 {INR} Normal 0.8-1.2 [facility] Work Phone: Comment on above: Reference interval i s for non-anticoagulated patients. . Suggested INR therapeutic range for Vitamin K antagonist therapy: Standard Dose (moderate intensity therapeutic range): 2.0 - 3.0 Higher intensity therapeutic range 2.5 - 3.5 send to Pre Adm test ing at [place] [address]; PATIENT NOT FASTINGPERFORMED BY: [facility] [id number] Prothrombin time (PT) Coag time (PPP) 10.4 {sec} Normal 9.1-12.0 [facility] Work Phone: Comment on above: send to Pre Adm test ing at [place] [address]; PATIENT NOT FASTINGPERFORMED BY: [facility] [id number] PT Coag (PPP) [Time] 10.4 s Normal 9.1-12.0 [facility] Internal Medicine; [facility] Work Phone: Comment on above: send to Pre Adm test ing at [place] [address]; PATIENT NOT FASTINGPERFORMED BY: [facility] [id number] PTT (Activated Partial Throm boplastin Time) (25442)Ordered By: Housekeeper/Laundry Assistant on 03-18-2017 aPTT Coag (PPP) [Time] 27 {sec} Normal 24-33 [facility] Work Phone: Comment on above: This test has not be en validated for monitoring unfractionated heparintherapy. aPTT-based therapeutic ranges for unfractionated heparintherapy have not been established. For general guidelines onHeparin monitoring, refer to the [facility] Directory of Services. send to Pre Adm test ing at [place] [address]; PATIENT NOT FASTINGPERFORMED BY: [facility] [id number] aPTT Coag (PPP) [Time] 27 s Normal 24-33 [facility]; [facility] Work Phone: Comment on above: This test has not be en validated for monitoring unfractionated heparintherapy. aPTT-based therapeutic ranges for unfractionated heparintherapy have not been established. For general guidelines onHeparin monitoring, refer to the [facility] Directory of Services. send to Pre Adm test ing at [facility] [phone]; PATIENT NOT FASTINGPERFORMED BY: TERRELL [facility] [id number] aPTT Coag time (Bld) 27 {sec} Normal 24-33 [facility] rehensive Internal Medicine Work Phone: Comment on above: This test has not be en validated for monitoring unfractionated heparintherapy. aPTT-based therapeutic ranges for unfractionated heparintherapy have not been established. For general guidelines onHeparin monitoring, refer to the [facility] Directory of Services. Serum Creatinine AND GFROrde red By: Housekeeper/Laundry Assistant on 02-25-2017 Creatinine mass conc 1.15 mg/dL Normal 0.70-1.30 [facility] Internal Medicine Work Phone: Comment on above: The validity of the calculated GFR AND GFRAA in patients over70 years has not been determined. Clinical correlation isessential. GFR/1.73 sq M predicted among non-blacks MDRD vol rate/area (S/P/Bld) 67 mL/min/{1.73_m2} Normal Comprehe nsive Internal Medicine Work Phone: Comment on above: Non- GFR Calc Serum Creatinine AND GFR 81 mL/min Normal [facility] Work Phone: Comment on above: GFR Calc Lab Report: Lipid Profileon 12-21-2016 Lipoprotein.pre-beta [Mass/Vol] 25 mg/dL Invalid Interpretation Code 5-40 [facility] Work Phone: Lab Report: Liver Profileon 12-21-2016 ALP (Bld) [Catalytic activity/Vol] 83 U/L Invalid Interpretation Code 45-117 [facility] Work Phone: Globulin (S) [Mass/Vol] 3.9 g/dL High 2.3-3.5 [facility] Work Phone: Lipid ProfileOrdered By: [facility] tem Lobster Catcher on 12-21-2016 Cholesterol [Mass/Vol] 171 mg/dL Normal [facility] Work Phone: Comment on above: <200 mg/dL Desirable 200-240 mg/dL Borderline >240 mg/dL High Risk Cholesterol in HDL [Mass/Vol] 70 mg/dL Normal [facility] Work Phone: Comment on above: The drugs N-Acetylcy steine and Metamizole may falsely deressthis assay. Reference Range HDL <40 mg/dL Low HDL Cholesterol HDL >or= 60 mg/dL High HDL Cholesterol Cholesterol in LDL [Mass/Vol] 76 mg/dL Normal 0-130 [facility] Work Phone: Triglyceride [Mass/Vol] 123 mg/dL Normal [facility] Work Phone: Comment on above: The drugs N-Acetylcy steine and Metamizole may falsely deressthis assay.Serum Triglycerides Reference Interval Normal <150 mg/dL Borderline high 150 - 199 mg/dL High 200 - 499 mg/dL Very High > or = 500 mg/dL Lipid Profile 25 mg/dL Normal 5-40 Comprehensi ve Internal Medicine Work Phone: Liver ProfileOrdered By: Ooploo tem Lobster Catcher on 12-21-2016 Albumin [Mass/Vol] 3.8 g/dL Normal 3.4-5.0 [facility] Work Phone: ALP enzyme act/vol 83 U/L Normal 45-117 [facility] Internal [facility] Work Phone: ALT [Catalytic activity/Vol] 43 U/L Normal 12-78 [facility] Work Phone: AST [Catalytic activity/Vol] 21 U/L Normal 15-37 [facility] Work Phone: Bilirubin [Mass/Vol] 0.50 mg/dL Normal 0.20-1.[address] [facility] Work Phone: Bilirubin.direct [Mass/Vol] 0.10 mg/dL Normal 0.00-0.30 [facility] Work Phone: Globulin Calculated mass conc (S) 3.9 g/dL Abnormal 2.3-3.5 [facility] Work Phone: Protein [Mass/Vol] 7.7 g/dL Normal 6.4-8.2 [facility] Work Phone: 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 Left ventricular Ejection fraction 65 % Invalid Interpretation Code [facility] Work Phone: Office Visiton 04-27-2016 Tobacco smoking status Tobacco smoking status NHIS Invalid Interpretation Code [facility] Work Phone: Tobacco use status [facility] Former smoker Invalid Interpretation Code [facility] Work Phone: Lab Report: Lipid Profileon 04-20-2016 Lipoprotein.pre-beta [Mass/Vol] 24 mg/dL Invalid Interpretation Code 5-40 [facility] Work Phone: Lab Report: Liver Profileon 04-20-2016 ALP (Bld) [Catalytic activity/Vol] 94 U/L Invalid Interpretation Code 50-136 [facility] Work Phone: Globulin (S) [Mass/Vol] 3.5 g/dL Invalid Interpretation Code 2.3-3.5 [facility] Work Phone: Lipid ProfileOrdered By: Zohra tem Lobster Catcher on 04-20-2016 Cholesterol [Mass/Vol] 134 mg/dL Normal [facility] Work Phone: Comment on above: <200 mg/dL Desirable 200-240 mg/dL Borderline >240 mg/dL High Risk Cholesterol in HDL [Mass/Vol] 51 mg/dL Normal [facility] Work Phone: Comment on above: The drugs N-Acetylcy steine and Metamizole may falsely deressthis assay. Reference Range HDL <40 mg/dL Low HDL Cholesterol HDL >or= 60 mg/dL High HDL Cholesterol Cholesterol in LDL [Mass/Vol] 59 mg/dL Normal 0-130 [facility] Work Phone: Triglyceride [Mass/Vol] 120 mg/dL Normal [facility] Work Phone: Comment on above: The drugs N-Acetylcy steine and Metamizole may falsely deressthis assay.Serum Triglycerides Reference Interval Normal <150 mg/dL Borderline high 150 - 199 mg/dL High 200 - 499 mg/dL Very High > or = 500 mg/dL Lipid Profile 24 mg/dL Normal 5-40 Comprehensi ve Internal Medicine Work Phone: Liver ProfileOrdered By: Zohra tem Lobster Catcher on 04-20-2016 Albumin [Mass/Vol] 4.0 g/dL Normal 3.4-5.0 [facility] Work Phone: ALP enzyme act/vol 94 U/L Normal 50-136 [facility] Internal Medicine Work Phone: ALT [Catalytic activity/Vol] 47 U/L Normal 12-78 [facility] Work Phone: AST [Catalytic activity/Vol] 26 U/L Normal 15-37 [facility] Work Phone: Bilirubin [Mass/Vol] 0.50 mg/dL Normal 0.20-1.[address] [facility] [address] [facility] Work Phone: Bilirubin.direct [Mass/Vol] 0.14 mg/dL Normal 0.00-0.30 [facility] Work Phone: Globulin Calculated mass conc (S) 3.5 g/dL Normal 2.3-3.5 [facility] Work Phone: Protein [Mass/Vol] 7.5 g/dL Normal 6.4-8.2 [facility] Work Phone: Fecal Occult Blood , Office ([phone])Ordered By: [place] on 03-20-2016 Hemoglobin.gastrointe stinal Ql (St) Negative Normal [facility] Work Phone: Hemoglobin.gastrointe stinal Ql (Stl) Negative Normal [facility]; [facility] Work Phone: PSA (PROSTATE SPECIFIC ANTIG EN) (V76.44)Ordered By: Housekeeper/Laundry Assistant on 02-07-2016 Prostate specific Ag mass conc 2.5 ng/mL Normal 0.0-4.0 [facility] Work Phone: Comment on above: Fransisca ECLIA methodol ogdavis. .According to the [place] [employer], Serum PSA shoulddecrease and remain at undetectable levels after radicalprostatectomy. The AUA defines biochemical recurrence as an initialPSA value 0.2 ng/mL or greater followed by a subsequent confirmatoryPSA value 0.2 ng/mL or greater.Values obtained with different assay methods or kits cannot be usedinterchangeably. Results cannot be interpreted as absolute evidenceof the presence or absence of malignant disease. PATIENT NOT FASTINGP ERFORMED BY: [facility]StartAncor[facility] Psychiatric HospitalYgssxm[address] [id number] Information: [id number] CBC W/AUTO DIFF WBC (05940)O rdered By: Housekeeper/Laundry Assistant on 01-20-2016 Basophils (Bld) [#/Vol] 0.0 {x10E3/uL} Normal 0.0-0.2 [facility] Work Phone: Comment on above: PATIENT WAS FASTINGP ERFORMED BY: [facility]StartAncora Psychiatric HospitalAsqnrh[address] [id number] Information: [id number], [id number] Basophils (Bld) [#/Vol] 0.0 10*3/uL Normal 0.0-0.2 [facility]; [facility] Work Phone: Comment on above: PATIENT WAS FASTINGP ERFORMED BY: [facility]StartAn[facility] Psychiatric HospitalAlzzwm[address] [id number] Information: [id number], [id number] Basophils Auto #/vol (Bld) 0.0 {x10E3/uL} Normal 0.0-0.2 [facility] Work Phone: Basophils/100 WBC (Bld) 1 % Normal [facility] Work Phone: Comment on above: PATIENT WAS FASTINGP ERFORMED BY: [facility]StartAn[facility] Psychiatric HospitalFumyev[address] [id number] Information: [id number], [id number] Basophils/100 WBC Auto (Bld) 1 % Normal [facility] Work Phone: Eosinophils (Bld) [#/Vol] 0.2 {x10E3/uL} Normal 0.0-0.4 [facility] Work Phone: Comment on above: PATIENT WAS FASTINGP ERFORMED BY: [place] 0[address]64[address] [id number] Information: [id number], [id number] Eosinophils (Bld) [#/Vol] 0.2 10*3/uL Normal 0.0-0.4 [facility]; [facility] Work Phone: Comment on above: PATIENT WAS FASTINGP ERFORMED BY: [place] 08864[address] [id number] Information: [id number], [id number] Eosinophils Auto #/vol (Bld) 0.2 {x10E3/uL} Normal 0.0-0.4 [facility] Work Phone: Eosinophils/100 WBC (Bld) 3 % Normal [facility] Work Phone: Comment on above: PATIENT WAS FASTINGP ERFORMED BY: [place] 0[address]64[address] [id number] Information: [id number], [id number] Eosinophils/100 WBC Auto (Bld) 3 % Normal [facility] Work Phone: Erythrocyte distribution width (RBC) [Ratio] 13.9 % Normal 12.3-15.4 [facility] Work Phone: Comment on above: PATIENT WAS FASTINGP ERFORMED BY: [facility] [id number] Information: [id number], [id number] Erythrocyte distribution width Auto Ratio (RBC) 13.9 % Normal 12.3-15.4 [facility] Work Phone: Hematocrit (Bld) [Volume fraction] 45.8 % Normal 37.5-51.0 [facility] Work Phone: Comment on above: PATIENT WAS FASTINGP ERFORMED BY: [facility] [id number] Information: [id number] Hematocrit Auto Volume Fraction (Bld) 45.8 % Normal 37.5-51.[address] [facility] Internal Medicine Work Phone: Hemoglobin mass conc (Bld) 15.2 g/dL Normal 12.6-17.7 [facility] Work Phone: Comment on above: PATIENT WAS FASTINGP ERFORMED BY: [place] 08864[address] [id number] Information: [id number] Immature granulocytes #/vol (Bld) 0.0 {x10E3/uL} Normal 0.0-0.1 [facility] Work Phone: Comment on above: PATIENT WAS FASTINGP ERFORMED BY: [place] 08864[address] [id number] Information: [id number] Immature granulocytes (Bld) [#/Vol] 0.0 10*3/uL Normal 0.0-0.1 [facility]; [facility] Work Phone: Comment on above: PATIENT WAS FASTINGP ERFORMED BY: [facility] [id number] Information: [id number] Immature granulocytes/100 WBC (Bld) 0 % Normal [facility] Work Phone: Comment on above: PATIENT WAS FASTINGP ERFORMED BY: [facility] [id number] Information: [id number] Lymphocytes (Bld) [#/Vol] 2.4 {x10E3/uL} Normal 0.7-3.1 [facility] Work Phone: Comment on above: PATIENT WAS FASTINGP ERFORMED BY: [place] 08864[address] [id number] Information: [id number] Lymphocytes (Bld) [#/Vol] 2.4 10*3/uL Normal 0.7-3.1 [facility]; [facility] Work Phone: Comment on above: PATIENT WAS FASTINGP ERFORMED BY: [facility] [id number] Information: [id number], [id number] Lymphocytes Auto #/vol (Bld) 2.4 {x10E3/uL} Normal 0.7-3.1 [facility] Work Phone: Lymphocytes/100 WBC (Bld) 29 % Normal [facility] Work Phone: Comment on above: PATIENT WAS FASTINGP ERFORMED BY: [place] 08864[address] [id number] Information: [id number], [id number] Lymphocytes/100 WBC Auto (Bld) 29 % Normal [facility] Work Phone: MCH (RBC) [Entitic mass] 29.7 pg Normal 26.6-33.0 [facility] Work Phone: Comment on above: PATIENT WAS FASTINGP ERFORMED BY: [place] 08864[address] [id number] Information: [id number], [id number] MCH Auto Entitic mass (RBC) 29.7 pg Normal 26.6-33.0 [facility] Work Phone: MCHC (RBC) [Mass/Vol] 33.2 g/dL Normal 31.5-35.7 [facility] prehensive Internal Medicine Work Phone: Comment on above: PATIENT WAS FASTINGP ERFORMED BY: [facility] [id number] Information: [id number], [id number] MCHC Auto mass conc (RBC) 33.2 g/dL Normal 31.5-35.7 [facility] Work Phone: MCV (RBC) [Entitic vol] 90 fL Normal 79-97 [facility] Work Phone: Comment on above: PATIENT WAS FASTINGP ERFORMED BY: TERRELL [facility] [id number] Information: [id number], [id number] MCV Auto Entitic volume (RBC) 90 fL Normal 79-97 [facility] Work Phone: Monocytes (Bld) [#/Vol] 0.7 {x10E3/uL} Normal 0.1-0.9 [facility] Work Phone: Comment on above: PATIENT WAS FASTINGP ERFORMED BY: TERRELL [facility] Nomkql[address] [id number] Information: [id number], [id number] Monocytes (Bld) [#/Vol] 0.7 10*3/uL Normal 0.1-0.9 [facility]; [facility] Work Phone: Comment on above: PATIENT WAS FASTINGP ERFORMED BY: TERRELL [facility] Qsrkva[address] [id number] Information: [id number], [id number] Monocytes Auto #/vol (Bld) 0.7 {x10E3/uL} Normal 0.1-0.9 [facility] Work Phone: Monocytes/100 WBC (Bld) 9 % Normal [facility] Work Phone: Comment on above: PATIENT WAS FASTINGP ERFORMED BY: [facility] Odinxc[address] [id number] Information: [id number], [id number] Monocytes/100 WBC Auto (Bld) 9 % Normal [facility] Work Phone: Neutrophils (Bld) [#/Vol] 4.8 {x10E3/uL} Normal 1.4-7.0 [facility] Work Phone: Comment on above: PATIENT WAS FASTINGP ERFORMED BY: [facility] [id number] Information: [id number], [id number] Neutrophils (Bld) [#/Vol] 4.8 10*3/uL Normal 1.4-7.0 [facility]; [facility] Work Phone: Comment on above: PATIENT WAS FASTINGP ERFORMED BY: TERRELL BriannaGerman Crooks[address] [id number] Information: [id number], [id number] Neutrophils Auto #/vol (Bld) 4.8 {x10E3/uL} Normal 1.4-7.0 [facility] Work Phone: Neutrophils/100 WBC (Bld) 58 % Normal [facility] Work Phone: Comment on above: PATIENT WAS FASTINGP ERFORMED BY: TERRELL Crooks[address] [id number] Information: [id number], [id number] Neutrophils/100 WBC Auto (Bld) 58 % Normal [facility] Work Phone: Platelets (Bld) [#/Vol] 274 {x10E3/uL} Normal 150-379 [facility] Work Phone: Comment on above: PATIENT WAS FASTINGP ERFORMED BY: TERRELL [facility] [id number] Information: [id number], [id number] Platelets (Bld) [#/Vol] 274 10*3/uL Normal 150-379 [facility]; [facility] Work Phone: Comment on above: PATIENT WAS FASTINGP ERFORMED BY: TERRELL Quanlin[address] [id number] Information: [id number], [id number] Platelets Auto #/vol (Bld) 274 {x10E3/uL} Normal 150-379 [facility] Work Phone: RBC (Bld) [#/Vol] 5.12 {x10E6/uL} Normal 4.14-5.80 [facility] Internal Medicine Work Phone: Comment on above: PATIENT WAS FASTINGP ERFORMED BY: TERRELL Quanlin[address] [id number] Information: [id number], [id number] RBC (Bld) [#/Vol] 5.12 10*6/uL Normal 4.14-5.80 [facility] Internal Medicine; [facility] Work Phone: Comment on above: PATIENT WAS FASTINGP ERFORMED BY: TERRELL Oliverj carlos Tlzkub[address] [id number] Information: [id number], [id number] RBC Auto #/vol (Bld) 5.12 {x10E6/uL} Normal 4.14-5.80 [facility] Work Phone: WBC (Bld) [#/Vol] 8.1 {x10E3/uL} Normal 3.4-10.8 [facility] Internal Medicine Work Phone: Comment on above: PATIENT WAS FASTINGP ERFORMED BY: TERRELL [facility] Nczrcw[address] [id number] Information: [id number], [id number] WBC (Bld) [#/Vol] 8.1 10*3/uL Normal 3.4-10.8 [facility] Internal Medicine; [facility] Work Phone: Comment on above: PATIENT WAS FASTINGP ERFORMED BY: TERRELL Oliverj carlos Pwezhy[address] [id number] Information: [id number], [id number] WBC Auto #/vol (Bld) 8.1 {x10E3/uL} Normal 3.4-10.8 [facility] Internal Medicine Work Phone: LIPID PANEL ([phone])Ordered B y: Housekeeper/Laundry Assistant on 01-20-2016 Cholesterol in HDL mass conc 57 mg/dL Normal [facility] Work Phone: Comment on above: According to ATP-III Guidelines, HDL-C >59 mg/dL is considered anegative risk factor for CHD. PATIENT WAS FASTINGP ERFORMED BY: TERRELL [facility] [id number] Cholesterol in LDL mass conc 64 mg/dL Normal 0-99 [facility] Work Phone: Comment on above: PATIENT WAS FASTINGP ERFORMED BY: TERRELL [facility] carlos Xnmuxn2239 [address] RoadDublin [place] [id number] Cholesterol in LDL/Cholesterol in HDL mass ratio 1.1 {ratio_units} Normal 0.0-3.6 [facility] Work Phone: Comment on above: LDL/HDL Ratio Men Wo men 1/2 Avg.Risk 1.0 1.5 Avg.Risk 3.6 3.2 2X Avg.Risk 6.2 5.0 3X Avg.Risk 8.0 6.1 PATIENT WAS FASTINGP ERFORMED BY: TERRELL [facility] carlos Xrwkva1911 [address] RoadDublin [place] [id number] Cholesterol in VLDL mass conc 18 mg/dL Normal 5-40 [facility] Work Phone: Comment on above: PATIENT WAS FASTINGP ERFORMED BY: TERRELL [facility] carlos Nulvhe1813 [address] RoadDublin [place] [id number] Cholesterol mass conc 139 mg/dL Normal 100-199 [facility] prehensive Internal Medicine Work Phone: Comment on above: PATIENT WAS FASTINGP ERFORMED BY: TERRELL [facility] carlos Qxkaah5143 [address] RoadDublin [place] [id number] Triglyceride mass conc 89 mg/dL Normal 0-149 [facility] Work Phone: Comment on above: PATIENT WAS FASTINGP ERFORMED BY: TERRELL [facility] carlos Woxgdq[address] Klee Data SystemDublin [place] [id number] METABOLIC PANEL, COMPREHENSI VE ([id number])Ordered By: Housekeeper/Laundry Assistant on 01-20-2016 Albumin mass conc 4.4 g/dL Normal 3.6-4.8 Compreh ensive [facility] Medicine Work Phone: Comment on above: PATIENT WAS FASTINGP ERFORMED BY: TERRELL [facility] Wbasfd4241 [address] RoadDublin [place] [id number] Albumin/Globulin mass ratio 1.8 {ratio} Normal 1.1-2.5 [facility] Work Phone: Comment on above: PATIENT WAS FASTINGP ERFORMED BY: TERRELL [facility] Cbzctd0443 [address] RoadDublin [place] [id number] ALP [Catalytic activity/Vol] 90 U/L Normal 39-117 [facility]; [facility] Work Phone: Comment on above: PATIENT WAS FASTINGP ERFORMED BY: TERRELL [facility] Cejpvy5013 [address] RoadDublin [place] [id number] ALP enzyme act/vol 90 [iU]/L Normal 39-117 [facility] Work Phone: Comment on above: PATIENT WAS FASTINGP ERFORMED BY: CB [facility] Zpcjlh2106 [address] RoadDublin [place] [id number] ALT [Catalytic activity/Vol] 53 U/L Abnormal 0-44 [facility]; [facility] Work Phone: Comment on above: PATIENT WAS FASTINGP ERFORMED BY: TERRELL [facility] Djbiar7316 [address] RoadDublin [place] [id number] ALT enzyme act/vol 53 [iU]/L Abnormal 0-44 [facility] Work Phone: Comment on above: PATIENT WAS FASTINGP ERFORMED BY: [facility] Nyekva4918 [address] RoadDublin [place] [id number] AST [Catalytic activity/Vol] 38 U/L Normal 0-40 [facility] Internal [facility]; [facility] Work Phone: Comment on above: PATIENT WAS FASTINGP ERFORMED BY: [facility] Cnhyba0252 [address]gn[address] RoadDublin [place] [id number] AST enzyme act/vol 38 [iU]/L Normal 0-40 [facility] Work Phone: Comment on above: PATIENT WAS FASTINGP ERFORMED BY: [facility] Qebnsx0496 [address] RoadDublin [place] [id number] Bilirubin mass conc 0.3 mg/dL Normal 0.0-1.2 [facility] Internal Medicine Work Phone: Comment on above: PATIENT WAS FASTINGP ERFORMED BY: CB [facility] Wvqsfg5876 [address] RoadDublin [place] [id number] Calcium mass conc 9.4 mg/dL Normal 8.6-10.2 Compreh ensive [facility] Medicine Work Phone: Comment on above: PATIENT WAS FASTINGP ERFORMED BY: CB [facility] Aqhpkk4879 [address] RoadDublin [place] [id number] Chloride molar conc 104 mmol/L Normal 97-108 Compr ehensive Internal Medicine Work Phone: Comment on above: PATIENT WAS FASTINGP ERFORMED BY: CB [facility] Bedelk7262 [address] RoadDublin [place] [id number] CO2 molar conc 21 mmol/L Normal 18-29 Comprehens mary Internal Medicine Work Phone: Comment on above: PATIENT WAS FASTINGP ERFORMED BY: CB [facility] Ujoasn5906 [address] RoadDublin [place] [id number] Creatinine mass conc 0.83 mg/dL Normal 0.76-1.27 [facility] Work Phone: Comment on above: PATIENT WAS FASTINGP ERFORMED BY: CB [facility] Fqgbuc1962 [address] RoadDublin [place] [id number] GFR/1.73 sq M predicted among blacks CKD-EPI vol rate/area (S/P/Bld) 104 mL/min/1.73 Normal Comprehensiv e Internal Medicine Work Phone: Comment on above: PATIENT WAS FASTINGP ERFORMED BY: CB [facility] Fwvjvw6703 [address] RoadDublin [place] [id number] GFR/1.73 sq M predicted among non-blacks CKD-EPI vol rate/area (S/P/Bld) 90 mL/min/1.73 Normal [facility] Work Phone: Comment on above: PATIENT WAS FASTINGP ERFORMED BY: CB [facility] Ryfomm2009 [address] RoadDublin [place] [id number] Globulin (S) [Mass/Vol] 2.4 g/dL Normal 1.5-4.5 [facility] Work Phone: Comment on above: PATIENT WAS FASTINGP ERFORMED BY: CB [facility] Tdgupv2597 [address] RoadDublin [place] [id number] Globulin Calculated mass conc (S) 2.4 g/dL Normal 1.5-4.5 [facility] Work Phone: Glucose mass conc 105 mg/dL Abnormal 65-99 Compreh ensive Internal Medicine Work Phone: Comment on above: PATIENT WAS FASTINGP ERFORMED BY: TERRELL [facility] Iynvop8561 [address] RoadDublin [place] [id number] Potassium molar conc 4.9 mmol/L Normal 3.5-5.2 Comp rehensive Internal Medicine Work Phone: Comment on above: PATIENT WAS FASTINGP ERFORMED BY: TERRELL [facility] Wxjgfr8870 [address] RoadDublin [place] [id number] Protein mass conc 6.8 g/dL Normal 6.0-8.5 Compreh ensive [facility] Medicine Work Phone: Comment on above: PATIENT WAS FASTINGP ERFORMED BY: TERRELL [facility] Oqxpzx4235 [address] RoadDublin [place] [id number] Sodium molar conc 142 mmol/L Normal 134-144 Compreh ensive [facility] Medicine Work Phone: Comment on above: PATIENT WAS FASTINGP ERFORMED BY: TERRELL [facility] Liwzeh0454 [address] RoadDuin [place] [id number] Urea nitrogen mass conc 15 mg/dL Normal 8-27 [facility] Work Phone: Comment on above: PATIENT WAS FASTINGP ERFORMED BY: TERRELL [facility] Ryrrfx3593 [address] RoadDublin [place] [id number] Urea nitrogen/Creatinine mass ratio 18 mg/mg Normal 10-22 [facility] Work Phone: Comment on above: PATIENT WAS FASTINGP ERFORMED BY: TERRELL [facility] Higbis8403 [address] RoadDublin [place] [id number] MICROALBUMINOrdered By: Syst em Lobster Catcher on 01-20-2016 Albumin DL <= 20 mg/L mass conc (U) 12.8 ug/mL Normal [facility] Work Phone: Comment on above: PATIENT WAS FASTINGP ERFORMED BY: TERRELL [facility] Zfkmir2346 [address] RoadDublin [place] [id number] Albumin/Creatinine mass ratio (U) 11.4 {mg/g_creat} Normal 0.0-30.0 [facility] Work Phone: Comment on above: PATIENT WAS FASTINGP ERFORMED BY: TERRELL [address] [id number] Creatinine mass conc (U) 111.8 mg/dL Normal [facility] Work Phone: Comment on above: PATIENT WAS FASTINGP ERFORMED BY: TERRELL [address] [id number] Microscopic ExaminationOrder ed By: Housekeeper/Laundry Assistant on 01-20-2016 Bacteria LM.HPF #/area (Urine sed) Few Normal [facility] Work Phone: Epithelial cells LM.HPF #/area (Urine sed) 0-10 Normal 0 - 10 [facility] Work Phone: Mucus LM Ql (Urine sed) Present Normal [facility] Work Phone: RBC LM.HPF #/area (Urine sed) 0-2 Normal 0 - 2 [facility] Work Phone: WBC LM.HPF #/area (Urine sed) 0-5 Normal 0 - 5 [facility] Work Phone: TSH ([id number])Ordered By: Nancye m Lobster Catcher on 01-20-2016 Thyrotropin Qn 1.440 {uIU/mL} Normal 0.450-4.50 0 [facility] Work Phone: Comment on above: PATIENT WAS FASTINGP ERFORMED BY: TERRELL Quanlin[address] [id number] URINALYSIS, W/ MICRO ([id number]) Ordered By: Housekeeper/Laundry Assistant on 01-20-2016 Appearance Nom (U) Clear Normal Compre hensive [facility] Medicine Work Phone: Comment on above: PATIENT WAS FASTINGP ERFORMED BY: TERRELL [address]lin[address] [id number] Bilirubin Ql (U) Negative Normal Comprehe nsive Internal Medicine Work Phone: Comment on above: PATIENT WAS FASTINGP ERFORMED BY: TERRELL Quanlin6[address] [facility] [place] [id number] Bilirubin Ql (U) Negative Normal Comprehe nsive Internal Medicine; [facility] Work Phone: Comment on above: PATIENT WAS FASTINGP ERFORMED BY: TERRELL Quanlin[address] [facility] [id number] Color Nom (U) Yellow Normal Comprehensi ve Internal Medicine Work Phone: Comment on above: PATIENT WAS FASTINGP ERFORMED BY: TERRELL Crooks[address] [facility] [id number] Glucose Ql (U) Negative Normal Comprehens mary [facility] Work Phone: Comment on above: PATIENT WAS FASTINGP ERFORMED BY: TERRELL [address] [id number] Glucose Ql (U) Negative Normal Comprehens mary [facility]; [facility] Work Phone: Comment on above: PATIENT WAS FASTINGP ERFORMED BY: TERRELL [address] [id number] Hemoglobin Ql (U) Negative Normal Compreh ensive [facility] Medicine Work Phone: Comment on above: PATIENT WAS FASTINGP ERFORMED BY: TERRELL [address] [id number] Hemoglobin Ql (U) Negative Normal Compreh ensive Internal Medicine; [facility] Work Phone: Comment on above: PATIENT WAS FASTINGP ERFORMED BY: TERRELL [address] [id number] Hemoglobin Test strip Ql (U) Negative Normal [facility] Work Phone: Ketones Ql (U) Negative Normal Comprehens mary [facility] Work Phone: Comment on above: PATIENT WAS FASTINGP ERFORMED BY: TERRELL Quanlin[address] [facility] [id number] Ketones Ql (U) Negative Normal Comprehens mary [facility]; [facility] Work Phone: Comment on above: PATIENT WAS FASTINGP ERFORMED BY: CB [facility] Lhskls9399 [address] RoadDublin [place] [id number] Leukocyte esterase Test strip Ql (U) Negative Normal [facility] Work Phone: Comment on above: PATIENT WAS FASTINGP ERFORMED BY: [facility] Jcwild0988 [address] RoadDublin [place] [id number] Leukocyte esterase Test strip Ql (U) Negative Normal [facility]; [facility] Work Phone: Comment on above: PATIENT WAS FASTINGP ERFORMED BY: [facility] Iqnytx5433 [address] RoadDublin [place] [id number] Microscopic observation LM Nom (Urine sed) MICRON Normal [facility] Work Phone: Comment on above: Microscopic follows if indicated. PATIENT WAS FASTINGP ERFORMED BY: TERRELL [facility] Gbyysb1074 [address] RoadDublin [place] [id number] Microscopic observation LM Nom (Urine sed) See below: Normal [facility] Work Phone: Comment on above: Microscopic was jay cated and was performed. PATIENT WAS FASTINGP ERFORMED BY: [facility] Aaehbr0244 [address] RoadDublin [place] [id number] Nitrite Ql (U) Negative Normal Comprehens mary [facility] Work Phone: Comment on above: PATIENT WAS FASTINGP ERFORMED BY: [facility] Ldoxzq7217 [address] RoadDublin [place] [id number] Nitrite Ql (U) Negative Normal Comprehens mary [facility]; [facility] Work Phone: Comment on above: PATIENT WAS FASTINGP ERFORMED BY: [facility] Zjjjnc5847 [address] RoadDublin [place] [id number] Nitrite Test strip Ql (U) Negative Normal [facility] Work Phone: pH (U) 6.0 [pH] Normal 5.0-7.5 [facility] Work Phone: Comment on above: PATIENT WAS FASTINGP ERFORMED BY: [facility] Njpheo8193 [address] RoadDublin [place] [id number] pH Test strip (U) 6.0 [pH] Normal 5.0-7.5 Compreh ensive Internal Medicine Work Phone: Protein Ql (U) Negative Normal Comprehens mary [facility] Work Phone: Comment on above: PATIENT WAS FASTINGP ERFORMED BY: [facility] Ezhqsc5052 [address] RoadDublin [place] [id number] Protein Ql (U) Negative Normal Comprehens mary [facility]; [facility] Work Phone: Comment on above: PATIENT WAS FASTINGP ERFORMED BY: [facility] Hirgkw4168 [address] RoadDublin [place] [id number] Protein Test strip Ql (U) Negative Normal [facility] Work Phone: Specific gravity Relative Density (U) 1.020 1 Normal 1.005-1.03 0 [facility] Work Phone: Comment on above: PATIENT WAS FASTINGP ERFORMED BY: LabK[facility] [place] Uwozzf3924 [address] RoadDublin [place] [id number] Urobilinogen (U) [Mass/Vol] 0.2 mg/dL Normal 0.2-1.0 [facility]; [facility] Work Phone: Comment on above: PATIENT WAS FASTINGP ERFORMED BY: Lab[facility] [place] Xvwmju1659 [address] RoadDublin [place] [id number] Urobilinogen Test strip mass conc (U) 0.2 mg/dL Normal 0.2-1.0 Comprehensiv e Internal Medicine Work Phone: Comment on above: PATIENT WAS FASTINGP ERFORMED BY: [facility] Yvzred6592 [address] RoadDublin [place] [id number] URINE EULOGIO CULTURE (TASH COL COUNT) ([id number])Ordered By: Housekeeper/Laundry Assistant on 12-30-2015 Bacteria identified Cx Nom (U) Final report Abnormal [facility] Work Phone: Comment on above: PATIENT NOT FASTINGP ERFORMED BY: [facility] Dptjxa1798 [address] RoadDublin [place] [id number] Information: SRC:UR [id number] Bacteria identified Cx Nom (U) BETAGB Abnormal [facility] Work Phone: Comment on above: Beta hemolytic Strep tococcus, group BGreater than 100,000 colony forming units per mLPenicillin and ampicillin are drugs of choice for treatment ofbeta-hemolytic streptococcal infections. Susceptibility testing ofpenicillins and other beta-lactam agents approved by the FDA fortreatment of beta-hemolytic streptococcal infections need not beperformed routinely because nonsusceptible isolates are extremelyrare in any beta-hemolytic streptococcus and have not been reportedfor Streptococcus pyogenes (group A). (CLSI 2011) PATIENT NOT FASTINGP ERFORMED BY: [facility] Sjdzpq[address] [id number] Information: SRC:[facility] [id number] Urinalysis, Office ([id number])Or dered By: Florencia Jain on 12-30-2015 Bilirubin Ql (U) Small Normal Comprehe nsive Internal Medicine Work Phone: Glucose Test strip mass conc (U) Negative Normal [facility] Work Phone: Hemoglobin Test strip Ql (U) Hemolyzed Trace Normal [facility] Work Phone: Ketones Ql (U) 15 mg/dL Abnormal Comprehens mary [facility] Work Phone: Leukocyte esterase Test strip Ql (U) Small Normal [facility] Work Phone: Nitrite Test strip Ql (U) Negative Normal [facility] Work Phone: pH Test strip (U) 7.5 [pH] Normal Compreh ensive Internal Medicine Work Phone: Protein Test strip Ql (U) 100 mg/dL Normal [facility] Work Phone: Specific gravity Relative Density (U) 1.025 1 Normal Comprehensi ve Internal Medicine Work Phone: Urobilinogen mass/time (24H U) 4 mg/dL Normal [facility] Work Phone: Urinalysis, Office ([id number])on 12-30-2015 Glucose Test strip (U) [Mass/Vol] Negative Normal [facility]; [facility] Work Phone: Hemoglobin Ql (U) Hemolyzed Trace Normal Co mprehensive [facility] Medicine Work Phone: Nitrite Ql (U) Negative Normal Comprehens mary [facility] Work Phone: Nitrite Ql (U) Negative Normal Comprehens mary [facility]; [facility] Work Phone: pH (U) 7.5 [pH] Normal [facility] Work Phone: Protein Ql (U) 100 mg/dL Normal Comprehens mary [facility] Work Phone: Lipid ProfileOrdered By: [employer] Lobster Catcher on 07-02-2015 Cholesterol in HDL mass conc 52 mg/dL Normal [facility] Work Phone: Comment on above: Reference Range HDL <40 mg/dL Low HDL Cholesterol HDL >or= 60 mg/dL High HDL Cholesterol Cholesterol in LDL mass conc 51 mg/dL Normal 0-130 [facility] Work Phone: Cholesterol mass conc 127 mg/dL Normal Com prehensive Internal Medicine Work Phone: Comment on above: <200 mg/dL Desirable 200-240 mg/dL Borderline >240 mg/dL High Risk Triglyceride mass conc 119 mg/dL Normal [facility] Work Phone: Comment on above: Serum Triglycerides Reference Interval Normal <150 mg/dL Borderline high 150 - 199 mg/dL High 200 - 499 mg/dL Very High > or = 500 mg/dL Lipid Profile 24 mg/dL Normal 5-40 Comprehensi ve Internal Medicine Work Phone: Liver ProfileOrdered By: [employer] Lobster Catcher on 07-02-2015 Albumin mass conc 4.1 g/dL Normal 3.4-5.0 Compreh ensive Internal Medicine Work Phone: ALP enzyme act/vol 112 U/L Normal 50-136 Compre hensive Internal Medicine Work Phone: ALT enzyme act/vol 56 U/L Normal 12-78 Compre hensive [facility] Medicine Work Phone: AST enzyme act/vol 31 U/L Normal 15-37 [facility]pre [facility] Work Phone: Bilirubin mass conc 0.50 mg/dL Normal 0.20-1.00 Compr ehensive Internal Medicine Work Phone: Bilirubin.direct mass conc 0.16 mg/dL Normal 0.00-0.30 [facility] Work Phone: Globulin Calculated mass conc (S) 3.5 g/dL Normal 2.3-3.5 [facility] Work Phone: Protein mass conc 7.6 g/dL Normal 6.4-8.2 Compreh ensive Internal Medicine Work Phone: Office Visiton 05-13-2015 cardiac risk group C Invalid Interpretation Code [facility] Work Phone: General cardiovascular disease 10Y risk [#] [place].Tasia'Janeth N/A Invalid Interpretation Code [facility] Work Phone: Basic Metabolic Profile (BMP )Ordered By: Housekeeper/Laundry Assistant on 04-26-2015 Basic metabolic 2000 panel 4.4 mmol/L Normal 3.5-5.1 [facility] Work Phone: Basic metabolic 2000 panel 99 mL/min Normal [facility] Internal [facility] Work Phone: Comment on above: GFR Calc Basic metabolic 2000 panel 115 mg/dL Abnormal 70-110 [facility] Work Phone: Comment on above: Fasting Glucose resu lt from 110 to <126 mg/dLsuggests IMPAIRED HOMEOSTASIS per A.D.A. criteria. Basic metabolic 2000 panel 26.0 mmol/L Normal 21.0-32.0 [facility] Work Phone: Basic metabolic 2000 panel 6 1 Normal 5-15 [facility] Work Phone: Basic metabolic 2000 panel 0.97 mg/dL Normal 0.70-1.30 [facility] Work Phone: Comment on above: The validity of the calculated GFR AND GFRAA in patients over70 years has not been determined. Clinical correlation isessential. Basic metabolic 2000 panel 17 mg/dL Normal 7-18 [facility] Work Phone: Basic metabolic 2000 panel 82 mL/min Normal [facility] Work Phone: Comment on above: Non- GFR Calc Basic metabolic 1999 panel 141 mmol/L Normal 136-145 [facility] Work Phone: Basic metabolic 1999 panel 109 mmol/L Abnormal 98-107 [facility] Work Phone: Basic metabolic 1999 panel 9.0 mg/dL Normal 8.5-10.1 [facility] Work Phone: Basic metabolic 2000 panel 17.5 {RATIO} Normal 10-20 [facility] Work Phone: CBC W/AUTO DIFF WBC (99600)O rdered By: Housekeeper/Laundry Assistant on 01-28-2015 Basophils (Bld) [#/Vol] 0.1 {x10E3/uL} Normal 0.0-0.2 [facility] Work Phone: Comment on above: PATIENT NOT FASTINGP ERFORMED BY: TERRELL [employer] Hgktnd[address] Klee Data SystemSelect Specialty Hospital [facility] [id number] Information: [id number] Basophils (Bld) [#/Vol] 0.1 10*3/uL Normal 0.0-0.2 [facility]; [facility] Work Phone: Comment on above: PATIENT NOT FASTINGP ERFORMED BY: TERRELL LabGerman QuanRxsyrk[address] [place] Klee Data SystemSelect Specialty Hospital [facility] [id number] Information: [id number] Basophils Auto #/vol (Bld) 0.1 {x10E3/uL} Normal 0.0-0.2 [facility] Work Phone: Basophils/100 WBC (Bld) 1 % Normal [facility] Work Phone: Comment on above: PATIENT NOT FASTINGP ERFORMED BY: TERRELL [employer] W[address]ibjb[address] [id number] Information: [id number] Basophils/100 WBC Auto (Bld) 1 % Normal [facility] Work Phone: Eosinophils (Bld) [#/Vol] 0.2 {x10E3/uL} Normal 0.0-0.4 [facility] Work Phone: Comment on above: PATIENT NOT FASTINGP ERFORMED BY: TERRELL [facility] Jqzlmf[address] [id number] Information: [id number] Eosinophils (Bld) [#/Vol] 0.2 10*3/uL Normal 0.0-0.4 [facility]; [facility] Work Phone: Comment on above: PATIENT NOT FASTINGP ERFORMED BY: TERRELL ReedLauren [place] [id number] [id number] Information: [id number] Eosinophils Auto #/vol (Bld) 0.2 {x10E3/uL} Normal 0.0-0.4 [facility] Work Phone: Eosinophils/100 WBC (Bld) 2 % Normal [facility] Work Phone: Comment on above: PATIENT NOT FASTINGP ERFORMED BY: [address] [id number] Information: [id number] Eosinophils/100 WBC Auto (Bld) 2 % Normal [facility] Work Phone: Erythrocyte distribution width (RBC) [Ratio] 13.6 % Normal 12.3-15.4 [facility] Work Phone: Comment on above: PATIENT NOT FASTINGP ERFORMED BY: [place] [id number] [id number] Information: [id number] Erythrocyte distribution width Auto Ratio (RBC) 13.6 % Normal 12.3-15.4 [facility] Work Phone: Hematocrit (Bld) [Volume fraction] 46.0 % Normal 37.5-51.0 [facility] Work Phone: Comment on above: PATIENT NOT FASTINGP ERFORMED BY: TERRELL [place] [id number] [id number] Information: [id number] Hematocrit Auto Volume Fraction (Bld) 46.0 % Normal 37.5-51.[address] [facility] Internal [facility] Work Phone: Hemoglobin mass conc (Bld) 15.6 g/dL Normal 12.6-17.7 [facility] Work Phone: Comment on above: PATIENT NOT FASTINGP ERFORMED BY: TERRELL [facility]Fre[facility] Drvjwi[address] [id number] Information: [id number] Immature granulocytes #/vol (Bld) 0.0 {x10E3/uL} Normal 0.0-0.1 [facility] Work Phone: Comment on above: PATIENT NOT FASTINGP ERFORMED BY: TERRELL [employer] Tkwawj[address] [id number] Information: [id number] Immature granulocytes (Bld) [#/Vol] 0.0 10*3/uL Normal 0.0-0.1 [facility]; [facility] Work Phone: Comment on above: PATIENT NOT FASTINGP ERFORMED BY: [facility] [id number] Information: [id number] Immature granulocytes/100 WBC (Bld) 0 % Normal [facility] Work Phone: Comment on above: PATIENT NOT FASTINGP ERFORMED BY: [address] [id number] Information: [id number] Lymphocytes (Bld) [#/Vol] 2.5 {x10E3/uL} Normal 0.7-3.1 [facility] Work Phone: Comment on above: PATIENT NOT FASTINGP ERFORMED BY: LabCoAncora Psychiatric HospitalMpnrqt[address] [id number] Information: [id number] Lymphocytes (Bld) [#/Vol] 2.5 10*3/uL Normal 0.7-3.1 [facility]; [facility] Work Phone: Comment on above: PATIENT NOT FASTINGP ERFORMED BY: [address] [id number] Information: [id number] Lymphocytes Auto #/vol (Bld) 2.5 {x10E3/uL} Normal 0.7-3.1 [facility] Work Phone: Lymphocytes/100 WBC (Bld) 32 % Normal [facility] Internal Medicine Work Phone: Comment on above: PATIENT NOT FASTINGP ERFORMED BY: [address] [id number] Information: [id number] Lymphocytes/100 WBC Auto (Bld) 32 % Normal [facility] Work Phone: MCH (RBC) [Entitic mass] 29.7 pg Normal 26.6-33.0 [facility] Work Phone: Comment on above: PATIENT NOT FASTINGP ERFORMED BY: [address] [id number] Information: [id number] MCH Auto Entitic mass (RBC) 29.7 pg Normal 26.6-33.0 [facility] Work Phone: MCHC (RBC) [Mass/Vol] 33.9 g/dL Normal 31.5-35.7 [facility] prehensive Internal Medicine Work Phone: Comment on above: PATIENT NOT FASTINGP ERFORMED BY: [address] [id number] Information: [id number] MCHC Auto mass conc (RBC) 33.9 g/dL Normal 31.5-35.7 [facility] Work Phone: MCV (RBC) [Entitic vol] 88 fL Normal 79-97 [facility] Work Phone: Comment on above: PATIENT NOT FASTINGP ERFORMED BY: [address] [id number] Information: [id number] MCV Auto Entitic volume (RBC) 88 fL Normal 79-97 [facility] Work Phone: Monocytes (Bld) [#/Vol] 0.6 {x10E3/uL} Normal 0.1-0.9 [facility] Work Phone: Comment on above: PATIENT NOT FASTINGP ERFORMED BY: TERRELL [facility] Laxibk[address] [id number] Information: [id number] Monocytes (Bld) [#/Vol] 0.6 10*3/uL Normal 0.1-0.9 [facility]; [facility] Work Phone: Comment on above: PATIENT NOT FASTINGP ERFORMED BY: TERRELL [facility] Tqbqay[address] [id number] Information: [id number] Monocytes Auto #/vol (Bld) 0.6 {x10E3/uL} Normal 0.1-0.9 [facility] Work Phone: Monocytes/100 WBC (Bld) 8 % Normal [facility] Work Phone: Comment on above: PATIENT NOT FASTINGP ERFORMED BY: TERRELL [facility] Uiflib01[address] [id number] Information: [id number] Monocytes/100 WBC Auto (Bld) 8 % Normal [facility] Work Phone: Neutrophils (Bld) [#/Vol] 4.5 {x10E3/uL} Normal 1.4-7.0 [facility] Work Phone: Comment on above: PATIENT NOT FASTINGP ERFORMED BY: [place] [id number] [facility] [address] [id number] Information: [id number] Neutrophils (Bld) [#/Vol] 4.5 10*3/uL Normal 1.4-7.0 [facility]; [facility] Work Phone: Comment on above: PATIENT NOT FASTINGP ERFORMED BY: TERRELL [place] [id number] [facility] [id number] Information: [id number] Neutrophils Auto #/vol (Bld) 4.5 {x10E3/uL} Normal 1.4-7.0 [facility] Work Phone: Neutrophils/100 WBC (Bld) 57 % Normal [facility] Work Phone: Comment on above: PATIENT NOT FASTINGP ERFORMED BY: TERRELL BriannaGerman Rutvmh[address] [facility] [id number] Information: [id number] Neutrophils/100 WBC Auto (Bld) 57 % Normal [facility] Work Phone: Platelets (Bld) [#/Vol] 246 {x10E3/uL} Normal 150-379 [facility] Work Phone: Comment on above: PATIENT NOT FASTINGP ERFORMED BY: TERRELL BriannaGerman QuanEjcijk[address] [id number] Information: [id number] Platelets (Bld) [#/Vol] 246 10*3/uL Normal 150-379 [facility]; [facility] Work Phone: Comment on above: PATIENT NOT FASTINGP ERFORMED BY: TERRELL Oliverj carlos Xbsjno1902 [facility] [id number] Information: [id number] Platelets Auto #/vol (Bld) 246 {x10E3/uL} Normal 150-379 [facility] Work Phone: RBC (Bld) [#/Vol] 5.25 {x10E6/uL} Normal 4.14-5.80 [facility] Internal Medicine Work Phone: Comment on above: PATIENT NOT FASTINGP ERFORMED BY: TERRELL BriannaGerman QuanJrygxn28[address] [facility] [address] [id number] Information: [id number] RBC (Bld) [#/Vol] 5.25 10*6/uL Normal 4.14-5.80 [facility] Internal Medicine; [facility] Work Phone: Comment on above: PATIENT NOT FASTINGP ERFORMED BY: TERRELL [facility] Nkvzdh[address] [facility] [id number] Information: [id number] RBC Auto #/vol (Bld) 5.25 {x10E6/uL} Normal 4.14-5.80 [facility] Work Phone: WBC (Bld) [#/Vol] 7.9 {x10E3/uL} Normal 3.4-10.8 [facility] prehensive Internal Medicine Work Phone: Comment on above: PATIENT NOT FASTINGP ERFORMED BY: CB [facility] Jgmhzs[address] [facility] [id number] Information: [id number] WBC (Bld) [#/Vol] 7.9 10*3/uL Normal 3.4-10.8 [facility]; [facility] Work Phone: Comment on above: PATIENT NOT FASTINGP ERFORMED BY: TERRELL [facility] Atsxos75[address] [id number] Information: [id number] WBC Auto #/vol (Bld) 7.9 {x10E3/uL} Normal 3.4-10.8 [facility] Work Phone: METABOLIC PANEL, COMPREHENSI VE ([id number])Ordered By: Housekeeper/Laundry Assistant on 01-28-2015 Albumin mass conc 4.6 g/dL Normal 3.6-4.8 Compreh ensive Internal Medicine Work Phone: Comment on above: PATIENT NOT FASTINGP ERFORMED BY: CB [facility] Lhyzjg[address] [id number] Albumin/Globulin mass ratio 1.7 {ratio} Normal 1.1-2.5 [facility] Work Phone: Comment on above: PATIENT NOT FASTINGP ERFORMED BY: CB [facility] Orjzdn[address] [id number] ALP [Catalytic activity/Vol] 96 U/L Normal 39-117 [facility]; [facility] Work Phone: Comment on above: PATIENT NOT FASTINGP ERFORMED BY: CB [facility] Wjkqql2548 [address]Dublin [place] [id number] ALP enzyme act/vol 96 [iU]/L Normal 39-117 [facility] Internal Medicine Work Phone: Comment on above: PATIENT NOT FASTINGP ERFORMED BY: CB [facility] Clmguk3511 [address] RoadDublin [place] [id number] ALT [Catalytic activity/Vol] 43 U/L Normal 0-44 [facility]; [facility] Internal Medicine Work Phone: Comment on above: PATIENT NOT FASTINGP ERFORMED BY: CB [facility] Bkyvzg8637 [address] RoadDublin [place] [id number] ALT enzyme act/vol 43 [iU]/L Normal 0-44 [facility] Internal Medicine Work Phone: Comment on above: PATIENT NOT FASTINGP ERFORMED BY: TERRELL [facility] Jqvkbl4784 [address] RoadDublin [place] [id number] AST [Catalytic activity/Vol] 34 U/L Normal 0-40 [facility] Internal Medicine; [facility] Internal Medicine Work Phone: Comment on above: PATIENT NOT FASTINGP ERFORMED BY: TERRELL [facility] Xhdhqv6137 [address] RoadDublin [place] [id number] AST enzyme act/vol 34 [iU]/L Normal 0-40 [facility] Internal Medicine Work Phone: Comment on above: PATIENT NOT FASTINGP ERFORMED BY: CB [facility] Jhdscg3963 [address] RoadDublin [place] [id number] Bilirubin mass conc 0.4 mg/dL Normal 0.0-1.2 [facility] Internal Medicine Work Phone: Comment on above: PATIENT NOT FASTINGP ERFORMED BY: CB [facility] Vfvlsh8519 [address] RoadDublin [place] [id number] Calcium mass conc 9.6 mg/dL Normal 8.6-10.2 [facility] Internal Medicine Work Phone: Comment on above: PATIENT NOT FASTINGP ERFORMED BY: CB [facility] Npaaee9646 [address] RoadDublin [place] [id number] Chloride molar conc 104 mmol/L Normal 97-108 Compr ehensive Internal Medicine Work Phone: Comment on above: PATIENT NOT FASTINGP ERFORMED BY: TERRELL Quanlin[address] [id number] CO2 molar conc 19 mmol/L Normal 18-29 Comprehens mary Internal Medicine Work Phone: Comment on above: PATIENT NOT FASTINGP ERFORMED BY: TERRELL Durand Uigjvq7[address] [id number] Creatinine mass conc 0.88 mg/dL Normal 0.76-1.27 Comp rehensive Internal Medicine Work Phone: Comment on above: PATIENT NOT FASTINGP ERFORMED BY: TERRELL Durand Pqvfen[address] [id number] GFR/1.73 sq M predicted among blacks CKD-EPI vol rate/area (S/P/Bld) 102 mL/min/1.73 Normal Comprehensiv e Internal Medicine Work Phone: Comment on above: PATIENT NOT FASTINGP ERFORMED BY: TERRELL Durand Azrqra[address] [id number] GFR/1.73 sq M predicted among non-blacks CKD-EPI vol rate/area (S/P/Bld) 88 mL/min/1.73 Normal [facility] Work Phone: Comment on above: PATIENT NOT FASTINGP ERFORMED BY: TERRELL Lab[facility] Thzgtw[address] [id number] Globulin (S) [Mass/Vol] 2.7 g/dL Normal 1.5-4.5 [facility] Work Phone: Comment on above: PATIENT NOT FASTINGP ERFORMED BY: TERRELL Durand Ceykbt[address] [id number] Globulin Calculated mass conc (S) 2.7 g/dL Normal 1.5-4.5 [facility] Work Phone: Glucose mass conc 124 mg/dL Abnormal 65-99 Compreh ensive Internal Medicine Work Phone: Comment on above: PATIENT NOT FASTINGP ERFORMED BY: TERRELL Jluis Crooks[address] [facility] [place] [id number] Potassium molar conc 4.4 mmol/L Normal 3.5-5.2 Comp rehensive Internal Medicine Work Phone: Comment on above: PATIENT NOT FASTINGP ERFORMED BY: TERRELL Jluis Yeeftj[address] [facility] [place] [id number] Protein mass conc 7.3 g/dL Normal 6.0-8.5 Compreh ensive Internal Medicine Work Phone: Comment on above: PATIENT NOT FASTINGP ERFORMED BY: TERRELL Oliverj carlos Uoyccx9845 [facility] [address] [id number] Sodium molar conc 141 mmol/L Normal 134-144 Compreh ensive Internal Medicine Work Phone: Comment on above: PATIENT NOT FASTINGP ERFORMED BY: TERRELL Oliverj carlos QuanEuqsem[address] [id number] Urea nitrogen mass conc 20 mg/dL Normal 8-27 [facility] Work Phone: Comment on above: PATIENT NOT FASTINGP ERFORMED BY: TERRELL Jluis Crooks[address] [id number] Urea nitrogen/Creatinine mass ratio 23 mg/mg Abnormal 10-22 [facility] Work Phone: Comment on above: PATIENT NOT FASTINGP ERFORMED BY: TERRELL BriannaGerman QuanUddwxj4[address] [id number] MICROALBUMINOrdered By: Syst em Lobster Catcher on 01-28-2015 Albumin DL <= 20 mg/L mass conc (U) 9.7 ug/mL Normal 0.0-17.0 [facility] Work Phone: Comment on above: PATIENT NOT FASTINGP ERFORMED BY: TERRELL Oliverj carlos Fwzgbk[address] [id number] Albumin/Creatinine mass ratio (U) 5.9 {mg/g_creat} Normal 0.0-30.0 [facility] Work Phone: Comment on above: PATIENT NOT FASTINGP ERFORMED BY: TERRELL bLife6[address] [facility] [id number] Creatinine mass conc (U) 164.3 mg/dL Normal 22.0-328.0 [facility] Work Phone: Comment on above: PATIENT NOT FASTINGP ERFORMED BY: TERRELL bLife6370 [facility]TreeSelect [facility] [id number] Microscopic ExaminationOrder ed By: Housekeeper/Laundry Assistant on 01-28-2015 Bacteria LM.HPF #/area (Urine sed) Few Normal [facility] Work Phone: Crystals LM Nom (Urine sed) Calcium Oxalate Normal [facility] Work Phone: Epithelial cells LM.HPF #/area (Urine sed) 0-10 Normal 0 - 10 [facility] Work Phone: Mucus LM Ql (Urine sed) Present Normal [facility] Work Phone: RBC LM.HPF #/area (Urine sed) 0-2 Normal 0 - 2 [facility] Work Phone: Unidentified crystals LM Ql (Urine sed) Present Abnormal [facility] Work Phone: WBC LM.HPF #/area (Urine sed) 0-5 Normal 0 - 5 [facility] Work Phone: PSA (PROSTATE SPECIFIC ANTIG EN) (V76.44)Ordered By: Housekeeper/Laundry Assistant on 01-28-2015 Prostate specific Ag mass conc 1.0 ng/mL Normal 0.0-4.0 [facility] Work Phone: Comment on above: Fransisca ECLIA methodol ogy. .According to the [place] [employer], Serum PSA shoulddecrease and remain at undetectable levels after radicalprostatectomy. The AUA defines biochemical recurrence as an initialPSA value 0.2 ng/mL or greater followed by a subsequent confirmatoryPSA value 0.2 ng/mL or greater.Values obtained with different assay methods or kits cannot be usedinterchangeably. Results cannot be interpreted as absolute evidenceof the presence or absence of malignant disease. PATIENT NOT FASTINGP ERFORMED BY: AppSame[address] [id number] URINALYSIS, W/ MICRO ([id number]) Ordered By: Housekeeper/Laundry Assistant on 01-28-2015 Appearance Nom (U) Clear Normal Compre hensive Internal Medicine Work Phone: Comment on above: PATIENT NOT FASTINGP ERFORMED BY: TERRELL Lab[facility] QuanLpsouj9815 [address] RoadDublin [place] [id number] Bilirubin Ql (U) Negative Normal Comprehe nsive Internal Medicine Work Phone: Comment on above: PATIENT NOT FASTINGP ERFORMED BY: TERRELL [facility] Alrpwj9378 [address] RoadDublin [place] [id number] Bilirubin Ql (U) Negative Normal Comprehe nsive Internal Medicine; [facility] Work Phone: Comment on above: PATIENT NOT FASTINGP ERFORMED BY: TERRELL Crooks[address] [place] [id number] Color Nom (U) Yellow Normal Comprehensi ve Internal Medicine Work Phone: Comment on above: PATIENT NOT FASTINGP ERFORMED BY: TERRELL [facility] QuanTvtrti1067 [address] RoadDublin [place] [id number] Glucose Ql (U) Negative Normal Comprehens mary Internal Medicine Work Phone: Comment on above: PATIENT NOT FASTINGP ERFORMED BY: TERRELL Quanlin6[address] RoadDublin [place] [id number] Glucose Ql (U) Negative Normal Comprehens mary Internal Medicine; [facility] Work Phone: Comment on above: PATIENT NOT FASTINGP ERFORMED BY: TERRELL LabCoj carlos QuanDdagrq1859 [address] RoadDublin [place] [id number] Hemoglobin Ql (U) Negative Normal Compreh ensive Internal Medicine Work Phone: Comment on above: PATIENT NOT FASTINGP ERFORMED BY: TERRELL [facility] Gvsavz0428 [address] RoadD[address] [place] [id number] Hemoglobin Ql (U) Negative Normal Compreh ensive Internal Medicine; [facility] Work Phone: Comment on above: PATIENT NOT FASTINGP ERFORMED BY: TERRELL [facility] Wjlqdi3304 [address]Dublin [place] [id number] Hemoglobin Test strip Ql (U) Negative Normal [facility] Work Phone: Ketones Ql (U) Negative Normal Comprehens mary Internal Medicine Work Phone: Comment on above: PATIENT NOT FASTINGP ERFORMED BY: TERRELL [facility] Nlojrh0759 [address] RoadD[address] [place] [id number] Ketones Ql (U) Negative Normal Comprehens mary Internal Medicine; [facility] Work Phone: Comment on above: PATIENT NOT FASTINGP ERFORMED BY: CB [facility] Eqvzxs1115 [address] [place] [id number] Leukocyte esterase Test strip Ql (U) Negative Normal [facility] Work Phone: Comment on above: PATIENT NOT FASTINGP ERFORMED BY: TERRELL [facility] Hkvjqk0293 [address] RoadDublin [place] [id number] Leukocyte esterase Test strip Ql (U) Negative Normal [facility]; [facility] Work Phone: Comment on above: PATIENT NOT FASTINGP ERFORMED BY: CB [facility] Afcuch2007 [address] RoadD[address] [place] [id number] Microscopic observation LM Nom (Urine sed) See below: Normal [facility] Work Phone: Comment on above: Microscopic was jay cated and was performed. PATIENT NOT FASTINGP ERFORMED BY: CB [facility] Gvidpk0486 [address]Dublin [place] [id number] Microscopic observation LM Nom (Urine sed) MICRON Normal [facility] Work Phone: Comment on above: Microscopic follows if indicated. PATIENT NOT FASTINGP ERFORMED BY: CB [facility] Mxjklm7531 [address]Dublin [place] [id number] Nitrite Ql (U) Negative Normal Comprehens mary Internal Medicine Work Phone: Comment on above: PATIENT NOT FASTINGP ERFORMED BY: CB [facility] Pvmkgj8554 [address] [place] [id number] Nitrite Ql (U) Negative Normal Comprehens mary Internal Medicine; [facility] Work Phone: Comment on above: PATIENT NOT FASTINGP ERFORMED BY: CB [facility] Mczmnf6142 [address]Dublin [place] [id number] Nitrite Test strip Ql (U) Negative Normal [facility] Work Phone: pH (U) 6.0 [pH] Normal 5.0-7.5 [facility] Work Phone: Comment on above: PATIENT NOT FASTINGP ERFORMED BY: CB [facility] Ajzltm4197 [address]Dublin [place] [id number] pH Test strip (U) 6.0 [pH] Normal 5.0-7.5 Compreh ensive Internal Medicine Work Phone: Protein Ql (U) Negative Normal Comprehens mary Internal Medicine Work Phone: Comment on above: PATIENT NOT FASTINGP ERFORMED BY: CB [facility] Gjmyss9520 [address]Dublin [place] [id number] Protein Ql (U) Negative Normal Comprehens mary Internal Medicine; [facility] Work Phone: Comment on above: PATIENT NOT FASTINGP ERFORMED BY: CB [facility] Flxozc2671 [address]Dublin [place] [id number] Protein Test strip Ql (U) Negative Normal [facility] Work Phone: Specific gravity Relative Density (U) >=1.030 Abnormal 1.005-1.03 0 [facility] Work Phone: Comment on above: PATIENT NOT FASTINGP ERFORMED BY: CB [facility] Xnanct2345 [address] [place] [id number] Urobilinogen (U) [Mass/Vol] 0.2 mg/dL Normal 0.0-1.9 [facility]; [facility] Work Phone: Comment on above: PATIENT NOT FASTINGP ERFORMED BY: CB [facility] Vdzewz2613 [address]Dublin [place] [id number] Urobilinogen Test strip mass conc (U) 0.2 mg/dL Normal 0.0-1.9 Comprehensiv e Internal Medicine Work Phone: Comment on above: PATIENT NOT FASTINGP ERFORMED BY: [facility] Mmxmhp[address] [id number] Lipid ProfileOrdered By: Ooploo tem Lobster Catcher on 12-21-2014 Cholesterol in HDL mass conc 41 mg/dL Normal [facility] Work Phone: Comment on above: Reference Range HDL <40 mg/dL Low HDL Cholesterol HDL >or= 60 mg/dL High HDL Cholesterol Cholesterol in LDL mass conc 57 mg/dL Normal 0-130 [facility] Work Phone: Cholesterol mass conc 116 mg/dL Normal Com prehensive Internal Medicine Work Phone: Comment on above: <200 mg/dL Desirable 200-240 mg/dL Borderline >240 mg/dL High Risk Triglyceride mass conc 91 mg/dL Normal 0-199 [facility] Work Phone: Comment on above: Serum Triglycerides Reference Interval Normal <150 mg/dL Borderline high 150 - 199 mg/dL High 200 - 499 mg/dL Very High > or = 500 mg/dL Lipid Profile 18 mg/dL Normal 5-40 Comprehensi Internal Medicine Work Phone: Liver ProfileOrdered By: Rezee tem Lobster Catcher on 12-21-2014 Albumin mass conc 3.6 g/dL Normal 3.4-5.0 Compreh ensive Internal Medicine Work Phone: ALP enzyme act/vol 94 U/L Normal 50-136 Compre [facility] Internal Medicine Work Phone: ALT enzyme act/vol 46 U/L Normal 12-78 Compre [facility] Internal Medicine Work Phone: AST enzyme act/vol 29 U/L Normal 15-37 [facility] Internal Medicine Work Phone: Bilirubin mass conc 0.30 mg/dL Normal 0.20-1.00 Compr ehensive Internal Medicine Work Phone: Bilirubin.direct mass conc 0.11 mg/dL Normal 0.00-0.30 [facility] Work Phone: Globulin Calculated mass conc (S) 3.5 g/dL Normal 2.7-4.2 [facility] Work Phone: Protein mass conc 7.1 g/dL Normal 6.4-8.2 Compreh ensive Internal Medicine Work Phone: LIPIDOrdered By: Irasema reed on 04-17-2014 Cholesterol in HDL mass conc 51 mg/dL Normal [facility] Work Phone: Comment on above: Reference RangeHDL < 40 mg/dL Low HDL CholesterolHDL >or= 60 mg/dL High HDL Cholesterol Cholesterol in LDL mass conc 47 mg/dL Normal 0-130 [facility] Work Phone: Cholesterol mass conc 120 mg/dL Normal Com prehensive Internal Medicine Work Phone: Comment on above: <200 mg/dL Desirable 200-240 mg/dL Borderline>240 mg/dL High Risk Triglyceride mass conc 111 mg/dL Normal 0-199 [facility] Work Phone: Comment on above: Serum Triglycerides Reference IntervalNormal <150 mg/dLBorderline high 150 - 199 mg/dLHigh 200 - 499 mg/dLVery High > or = 500 mg/dL LIPID 22 mg/dL Normal 5-40 [facility] Work Phone: LIVEROrdered By: Irasema reed on 04-17-2014 Albumin mass conc 4.2 g/dL Normal 3.4-5.0 Compreh ensive Internal Medicine Work Phone: ALT enzyme act/vol 51 U/L Normal 12-78 Compre hensive Internal Medicine Work Phone: AST enzyme act/vol 27 U/L Normal 15-37 Compre hensive [facility] Medicine Work Phone: Protein mass conc 7.6 g/dL Normal 6.4-8.2 Compreh ensive Internal Medicine Work Phone: LIVER 0.60 mg/dL Normal 0.00-4.00 [facility] Work Phone: LIVER 99 U/L Normal 50-136 [facility] Work Phone: LIVER 0.18 mg/dL Normal 0.00-0.30 [facility] Work Phone: Lab Report: LIVERon 04-17-20 14 GE use only - for LinkLogic import when terms are not otherwise specified 99 U/L Normal 50-136 [facility] Work Phone: Replaced Document: Mikala Kirk 06-02-2012 electrocardiogram interpretation Sinus Rhythm WITHIN NORMAL LIMITS Invalid Interpretation Code [facility] Work Phone: Heart rate 93 /min Invalid Interpretation Code [facility] Work Phone: P wave axis, electrocardiogram 53 deg Invalid Interpretation Code [facility] Work Phone: [place] interval, electrocardiogram 170 ms Invalid Interpretation Code [facility] Work Phone: QRS axis, electrocardiogram 5 deg Invalid Interpretation Code [facility] Work Phone: QRS duration, electrocardiogram 88 ms Invalid Interpretation Code [facility] Work Phone: QT interval, electrocardiogram new path ms Invalid Interpretation Code [facility] Work Phone: QT interval/QT interval (corrected for heart rate), electrocardiogram 399 ms Invalid Interpretation Code [facility] Work Phone: T wave axis, electrocardiogram 36 deg Invalid Interpretation Code [facility] Work Phone: MRA HEAD WITHOUT CONTRASTOrd ered By: Housekeeper/Laundry Assistant on 05-27-2012 MRA HEAD WITHOUT CONTRAST See Note Normal [facility] Work Phone: Comment on above: PROCEDURE: MRA OF TH E HEAD WITHOUT CONTRAST REASON FOR EXAM: Male, 66 years old. Family history of brainaneurysms. TECHNIQUE: 3-D niie-te-fowxpy (TOF) imaging was performed with MIPs.Thestudy was performed unenhanced. COMPARISON: MRI brain -- 05/27/12. FINDINGS:Normal bilateral petrous carotid arteries. Normal right cavernouscarotidartery with a normal supraclinoid bifurcation. Normal left cavernouscarotid artery with a normal supraclinoid bifurcation. Normal right A1 segments of the anterior cerebral artery. Normal left U2nssadszo of the anterior cerebral artery. Normal intact anteriorcommunicating artery (ACOM). Normal bilateral A2 segments of theanteriorcerebral arteries. Normal right M1 and M2 segments of the middle cerebral arteries, with anormal M1 bifurcation. Normal left M1 and M2 segments of the middlecerebral arteries, with a normal M1 bifurcation. Small right posterior communicating artery (PCOM) only subtly visualizedonsource imaging. Small left posterior communicating artery (PCOM) onlysubtly visualized on source imaging. Normal bilateral vertebral arteries. Right vertebral artery is dominant.Normal basilar artery with a normal basilar bifurcation. The visualizedbilateral superior cerebellar (SCA) arteries are normal. Normal bilateral P1, P2 and visualized P3 segments of the posteriorcerebral arteries. There is no demonstrated aneurysm of the [place] of [place]. There is nomajor vessel occlusion or hemodynamically significant stenosis. IMPRESSION:Normal MRA of the head. No evidence of aneurysm. Signed:Yvonne Haq M.D.May 27, 2012 at 8:42:02 PM [id number] Signed LL/LL If you are the referring physician and would like to consult with theradiologist who provided this interpretation, please contact Yvonne Pinto M.D. at [phone]. If this radiologist is unavailable, you willbe directed to another radiologist to assist. If you are a patient with a question regarding this report, pleasecontactyour referring physician directly. Professional Interpretation Provided By: C[employer], Phone , PROCEDURE: MRI BRAIN WITHOUT CONTRAST REASON FOR EXAM: Male, 66 years old. Family history of aneurysms. TECHNIQUE: Standardized multiplanar fat and water weighted pulsesequences were obtained. COMPARISON: MRA brain -- 05/27/12. FINDINGS:Normal size of the ventricles and extra-axial spaces for the patient'bin.There are multiple white matter hyperintensities, distributed throughoutthe deep white matter tracts of the cerebral hemispheres, consistent withmoderate chronic white matter ischemic changes. Normal bilateral basal ganglia. Normal thalami. There is no extra-axialfluid accumulation. Normal flow voids within the major intracranial circulation suggestingpatency by spin echo criteria. Normal sella turcica, pituitary gland, infundibular stalk, optic chiasmandhypothalamus. Normal tectal plate and pineal gland. Normal midbrain, areli and medulla. Normal cerebellum. Normal basalcisterns. Normal bilateral temporal bones. Normal bilateral internalauditory canals. No demonstrated orbital abnormality, within the constraints of a routinebrain study. There is mild mucosal inflammatory disease in the ethmoidaircells anteriorly, minimal to mild mucosal inflammatory disease in therightfrontal sinus and very minimal mucosal inflammatory disease in themaxillary sinuses. Normal calvarium and skull base. Normal visualizedsofttissue structures. Normal visualized upper cervical spine. IMPRESSION:No acute intracranial process, intracranial mass lesion, or intracranialhemorrhage. Moderate supratentorial white matter disease consistent with chronicwhitematter ischemic changes. Minimal to mild mucosal inflammatory disease in the paranasal sinuses asdescribed above. Signed:Yvonne Haq M.D.May 27, 2012 at 8:45:08 PM [id number] Signed LL/LL If you are the referring physician and would like to consult with theradiologist who provided this interpretation, please contact Yvonne Pinto M.D. at [phone]. If this radiologist is unavailable, you willbe directed to another radiologist to assist. If you are a patient with a question regarding this report, pleasecontactyour referring physician directly. Professional Interpretation Provided By: [employer], Phone , These documents contain legally protected [...] documents. Dictated on 05/27/12 0745 by SUZIE HAQ MDATranscribed on 05/27/122048 by ITS IMPORTSign by YVONNE HAQ MD on 05/27/122049 Sign by: YVONNE HAQ MD PROCEDURES: ULTRASOU ND AORTA REASON FOR EXAM: Male, 66 years old. Family history of abdominalaorticaneurysm. TECHNIQUE: Ultrasound evaluation of the aorta was performed with real-timeand static duckworth-scale imaging. COMPARISON: None. FINDINGS:There is mild atherosclerotic plaque formation of the abdominal aorta. Aorta measures: Proximal 2.1 cm. Middle 1.8 cm. Distal 1.8 cm.Aorta measure transversely: Proximal 2.3 cm. Middle 2.3 cm. Distal1.9cm. Right iliac artery measures: 0.8 cm.Right iliac artery measure transversely: 1.0 cm. Left iliac artery measures: 0.9 cm.Left iliac artery measure transversely: 0.6 cm. There is no demonstrated aneurysm.. IMPRESSION:Mild atherosclerotic plaque formation. Signed:Abel Matthews M.D.May 27, 2012 at 10:42:09 AM [id number] Signed GP/GP If you are the referring physician and would like to consult with theradiologist who provided this interpretation, please contact Forrest Em at [phone]. If this radiologist is unavailable, youwill be directed to another radiologist to assist. If you are a patient with a question regarding this report, pleasecontactyour referring physician directly. Professional Interpretation Provided By: [employer], Phone , These documents contain legally protected [...] return or destructionofthese documents. Dictated on 05/27/12 08 by Angel Matthews MDribed on 05/27/121102 by ITS IMPORTSign by Abel Matthews MD on 05/27/12 110 Sign by: Abel Matthews MD LOWER EXT.JOINT ONLY (ROUTIN E)Ordered By: Housekeeper/Laundry Assistant on 11-16-2011 LOWER EXT.JOINT ONLY (ROUTINE) See Note Normal [facility] Work Phone: Comment on above: PROCEDURE: MRI LEFT HIP REASON FOR EXAM: Male, 66 years old. Low back pain with radiculopathy.Left hip and left leg pain for one month. No known injury. TECHNIQUE: Standardized fat and water weighted pulse sequences wereobtained in all 3 orthogonal planes. COMPARISON: Radiographs of October 26, 2011 FINDINGS:Normal hip joint without articular joint space narrowing. There is bonemarrow edema in the femoral neck extending into the intertrochantericregion (coronal series 8 images 10-17. There is also a small jointeffusion (axial series 12 images 9-14). There is relative preservationofthe femoral head at this time. The findings are most compatible withtransient osteoporosis (bone marrow edema) of the proximal femur. Thereisno demonstrated labral tear. Normal acetabulum. Normal femoral head. Normal femoral neck andintratrochanteric region. Normal gluteus minimus, medius and iliopsoas tendons and distalinsertions. There is no trochanteric, iliopsoas or iliopectineal bursitis. Normal superior and inferior pubic rami. Normal pubic [...] other significant abnormality is identified. Signed:Sanchez Rodriguez MDJunrosa 2011 at 11:11:02 AM EDTElectronically Signed TP/TP Professional Interpretation Provided By: [facility], , To consult with a radiologist regarding this report, please call our [id number] line @ Dictated on 11/16/11 0848 by Sanchez Rodriguez MDTranscribed on 11/16/11 1116 by ITS IMPORTSign by Sanchez Rodriguez MD on 11/16/11 1117 Sign by: Sanchez Rodriguez MD PROCEDURE: MRI LUMBA R SPINE WITHOUT CONTRAST REASON FOR EXAM: Male, 66 years old. Low back pain for one monthradiating to the left lower extremity. History of prior lumbar [id number]. TECHNIQUE: Standardized fat and water weighted pulse sequences wereobtained in the sagittal and axial planes. COMPARISON: None FINDINGS: T12-L1: Sagittal imaging only. Normal disc height and hydration,anteriorendplate spondylosis, and posterior annular disc bulging with annulartearon the right. Normal facet joints and neural foramina. Normal centralcanal (T2 sagittal series image 7). Normal lumbar lordosis. There is no substantial scoliosis. Normal conusmedullaris that terminates at the L1 level. L1-2: Disc desiccation, Normal disc height, Schmorl's node at L2,anteriorendplate spondylosis, and posterior spondylotic endplate change/ annulardisc bulging. Mild facet arthrosis with low volume facet effusions andnormal neural foramina. Normal central canal and lateral recesses (Y1tujvf series image 23). L2-3: Disc desiccation, mild loss of disc height, shallow Schmorl'snodesat the opposing endplates, anterior endplate spondylosis, and posteriorbroad-based disc herniation of the protrusion type greatest bilaterallyandgreater in the right pre-foraminal/foraminal region measuring up to 3.5mm(AP). There is flattening of the ventral thecal sac with questionableimpingement of the right L3 nerve root. Minimal facet arthrosis with lowvolume facet effusions, ligamentous hypertrophy, and mild to moderateleftand mild right noncompressive neural foraminal narrowing. Normal centralcanal and lateral recesses (T1 and T2 axial series image 17 and 18). L3-4: Disc desiccation, Normal disc height of anterior endplatespondylosis, and posterior spondylotic endplate change/ annular discbulging. Minimal facet arthrosis and normal neural foramina. Normalcentral canal and lateral recesses (T1 and T2 axial series image 14). L4-5: Slight disc desiccation, Normal disc height, anterior endplatespondylosis, and posterior spondylotic endplate change/ annular discbulging. Mild facet arthrosis with low volume facet effusions, minimalnoncompressive neural foraminal narrowing. Normal central canal andlateral recesses (T1 and T2 axial series image 8). L5-S1: Collapse of the disc, disc desiccation, degenerative endplateirregularity and marrow signal change, mild to moderate anterior endplatespondylosis, interval left hemilaminectomy, and posterior spondyloticendplate change/ annular disc bulging. Mild facet arthrosis with lowvolume facet effusions and moderate medial neural foraminal narrowingwithpotential for bilateral neural impingement. Because of postsurgicalchangehowever recommend postcontrast scanning for complete evaluation. Normal visualized sacral ala. Normal visualized paraspinous soft tissue structures. IMPRESSION:T12-L1 decreasing size of disc protrusion previously noted on the right,persistent annular disc bulging with annular tear on the right. L1-2, L3-4, L4-5 stable -- spondylotic endplate change/ annular discbulging, facet arthrosis. L2-3 stable -- broad-based disc protrusion greater to the right,questionable impingement of the right L3 nerve root, facet arthrosis. L5-S1 interval left hemilaminectomy, resection of previously noted discextrusion, further advanced degenerative disc disease with collapse ofthedisc, possible impingement of the exiting L5 nerve roots, facetarthrosis.Because of postsurgical change recommend postcontrast scanning forcompleteevaluation. Signed:Yvonne Haq M.D.November 16, 2011 at 11:56:02 AM EDTElectronically Signed LL/LL Professional Interpretation Provided By: [facility], , To consult with a radiologist regarding this report, please call our [id number] line @ Dictated on 11/16/11 0943 by SUZIE HAQ MDATranscribed on 11/16/11 1201 by ITS IMPORTSign by YVONNE HAQ MD on 11/16/11 1202 Sign by: YVONNE HAQ MD HIP, MIN 2 VIEWSOrdered By: Housekeeper/Laundry Assistant on 10-26-2011 HIP, MIN 2 VIEWS See Note Normal Comprehe nsive [facility] Medicine Work Phone: Comment on above: PROCEDURE: X-RAY - L EFT HIP REASON FOR EXAM: Male, 65 years old. Left hip pain. TECHNIQUE: Two views of the hip. COMPARISON: None. FINDINGS: Normal femoral head, neck, intertrochanteric region and visualizedproximalfemur. Normal acetabulum. Normal hip joint. Normal visualized superior and inferior pubic rami and ischialtuberosities. IMPRESSION:Normal x-ray examination of the hip. Signed:Abel Matthews M.D.October 27, 2011 at 9:59:04 AM EDTElectronically Signed GP/GP Professional Interpretation Provided By: [facility], , To consult with a radiologist regarding this report, please call our [id number] line @ Dictated on 10/26/11 1400 by Byron SOTO,Janiceranscribed on 10/27/11 1004 by ITS IMPORTSign by Byron SOTO,Abel on 10/27/11 1005 Sign by: Abel Matthews MD LIPIDOrdered By: Irasema reed on 01-31-2010 Cholesterol in HDL mass conc 56 mg/dL Normal [facility] Work Phone: Comment on above: Reference RangeHDL < 40 mg/dL Low HDL CholesterolHDL >or= 60 mg/dL High HDL Cholesterol Cholesterol in LDL mass conc 63 mg/dL Normal 0-130 [facility] Work Phone: Cholesterol in VLDL mass conc 10 mg/dL Normal 5-40 [facility] Work Phone: Cholesterol mass conc 129 mg/dL Normal Com prehensive [facility] Work Phone: Comment on above: <200 mg/dL Desirable 200-240 mg/dL Borderline>240 mg/dL High Risk Triglyceride mass conc 48 mg/dL Normal [facility] Work Phone: Comment on above: Serum Triglycerides Reference IntervalNormal <150 mg/dLBorderline high 150 - 199 mg/dLHigh 200 - 499 mg/dLVery High > or = 500 mg/dL LIVEROrdered By: Irasema reed on 01-31-2010 Albumin mass conc 3.9 g/dL Normal 3.4-5.0 Compreh ensive [facility] Work Phone: ALP enzyme act/vol 93 U/L Normal 50-136 [facility] Work Phone: ALT enzyme act/vol 40 U/L Normal 12-78 [facility] Work Phone: AST enzyme act/vol 23 U/L Normal 15-37 [facility] Work Phone: Bilirubin mass conc 0.20 mg/dL Normal 0.00-1.00 [facility] Work Phone: Bilirubin.direct mass conc 0.10 mg/dL Normal 0.00-0.30 [facility] Internal Medicine Work Phone: Protein mass conc 7.4 g/dL Normal 6.4-8.2 Compreh [facility] Internal Medicine Work Phone: LIPIDOrdered By: [employer] on 10-21-2009 Cholesterol in HDL mass conc 52 mg/dL Normal [facility] Internal Medicine Work Phone: Comment on above: Reference RangeHDL < 40 mg/dL Low HDL CholesterolHDL >or= 60 mg/dL High HDL Cholesterol Cholesterol in LDL mass conc 71 mg/dL Normal 0-130 [facility] Internal Medicine Work Phone: Cholesterol in VLDL mass conc 19 mg/dL Normal 5-40 [facility] Internal [facility] Work Phone: Cholesterol mass conc 142 mg/dL Normal [facility] Medicine Work Phone: Comment on above: <200 mg/dL Desirable 200-240 mg/dL Borderline>240 mg/dL High Risk Triglyceride mass conc 95 mg/dL Normal [facility] Internal Medicine Work Phone: Comment on above: Serum Triglycerides Reference IntervalNormal <150 mg/dLBorderline high 150 - 199 mg/dLHigh 200 - 499 mg/dLVery High > or = 500 mg/dL LIVEROrdered By: [employer] on 10-21-2009 Albumin mass conc 3.8 g/dL Normal 3.4-5.0 [facility] Internal Medicine Work Phone: ALP enzyme act/vol 92 U/L Normal 50-136 [facility] Internal Medicine Work Phone: ALT enzyme act/vol 40 U/L Normal 12-78 Compre [facility] Internal Medicine Work Phone: AST enzyme act/vol 25 U/L Normal 15-37 [facility] Work Phone: Bilirubin mass conc 0.40 mg/dL Normal 0.00-1.00 Compr ehensive Internal Medicine Work Phone: Bilirubin.direct mass conc 0.09 mg/dL Normal 0.00-0.30 [facility] Work Phone: Protein mass conc 7.5 g/dL Normal 6.4-8.2 Compreh ensive [facility] Work Phone: HIP, MIN 2 VIEWSOrdered By: Housekeeper/Laundry Assistant on 10-23-2008 HIP, MIN 2 VIEWS See Note Normal Comprehe nsive [facility] Work Phone: Comment on above: Exam Number: [id number] CLINICAL PROBLEMLeft hip pain similar to that prior to a left femoral graft made 10years ago. TWO VIEWS LEFT HIP FINDINGSThere is no evidence of fracture dislocation or other apparentlysignificant abnormality. The articular cartilage appears wellpreserved. There [...] density of metallic objects and they probably representedsome unusual arrangement of cortical bone and perhaps even medullarybone in the case of the smaller densities. It is very unlikely thatthese are of any clinical significance as they rotate with the femoralhead and are probably not rusted metallic surgical clips. IMPRESSION1. Unusual linear densities probably of no clinical consequence overlying the femoral head and neck.2. Otherwise entirely normal left hip radiography. Reported By: URMILA THOMAS M.D. CTA NECK W/WO CONTRASTOrdere d By: Housekeeper/Laundry Assistant on 05-29-2008 CTA NECK W/WO CONTRAST See Note Normal [facility] Work Phone: Comment on above: Exam Number: [id number] CT ARTERIOGRAM NECK WITHOUT AND WITH CONTRAST CLINICAL STATEMENTAbnormal Doppler, carotid stenosis. Helical scanning through the neck used 100 mL Isovue 370 intravenousenhancement. There is good vascular opacity. Data was evaluated atthe 3D work station with selected images returned for PACS archive. Arch mediastinum: There is a normal 3-vessel origin ofbrachiocephalic arteries from the aortic arch. There isarteriosclerotic calcification along the aortic arch without stenosisalong the right innominate artery or left common carotid artery in thesuperior mediastinum. There is eccentric noncalcified plaque alongthe proximal left subclavian artery with lumen narrowing up to 60%proximal to the left vertebral artery origin. Right cervical carotid: The right common carotid artery isnonstenotic. At the bifurcation the internal carotid artery is themedial branch. There is no hemodynamically-significant stenosis. There is some mild calcified plaque around the origin of the rightexternal carotid artery. The internal carotid artery is patent to thecarotid canal. Left cervical carotid: The common carotid artery in the neck isunremarkable. At the carotid bifurcation the internal carotid arterybranches posterolaterally. There is posterior plaque. A thinweb-like narrowing on the order of 30% is present at the bifurcationand elevated calcified plaque 1 to 2 cm above the bifurcation resultsin a 2nd smooth stenosis on the order of 30 to 50%. Above thecalcified plaque the internal carotid artery is patent withouttortuosity or stenosis to the skull base. Vertebral arteries: The right vertebral artery is dominant. There isno stenosis at the right vertebral origin or through its cervicalcourse. The vertebral is patent to the inferior portion of thebasilar artery included on this study. The left vertebral artery isrelatively small. There appears to be a mild degree of narrowing atthe left vertebral origin, less than 30%. The cervical course of thevertebral artery and left vertebral along the clivus are normal. Nonvascular findings: No adenopathy or mass is seen. The includedportions of facial sinuses are generally well aerated with a tinyretention cyst posteriorly in the left maxillary antrum. Orbitalcontents are also partially included and unremarkable. Salivaryglands and thyroid lobes are within normal limits. There is noencroachment on the airway. The upper lungs are well aerated withsome scarring at the apices and minimal subpleural emphysema. IMPRESSION1. No hemodynamically-significant stenosis is identified in the neck.At the left carotid bifurcation there is mild narrowing by ashort-segment soft plaque followed by a 2nd smooth mild narrowing bycalcified plaque along the internal carotid artery. Neither siteexceeds 30% diameter stenosis. 2. 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 3. Bilateral pulmonary apical scarring and mild emphysema. Reported By: ANTHONY GABRIEL M.D. AORTAOrdered By: Irasema reed on 05-21-2008 AORTA See Note Normal [facility] Work Phone: Comment on above: Exam Number: [id number] ULTRASOUND OF ABDOMINAL AORTA HISTORYBounding aortic abdominal pulse. High-resolution real-time sector images were obtained. The proximalaorta measures 1.6 x 1.9 cm. The midaorta measures 1.3 x 1.5 cm. Thedistal aorta measures 1.3 x 1.6 cm. There is slight plaque seen inthe distal aorta. The right proximal iliac artery measures 7 x 7 mm. The left proximal iliac artery measures 8 x 5 mm. IMPRESSIONThere is no abnormality of caliber of the abdominal aorta. There isslight plaque seen in the distal aorta. Reported By: VONNIE LINCOLN M.D. Exam Number: [id number] MRI OF THE LUMBAR SPINE WITHOUT CONTRAST ENHANCEMENT CLINICAL STATEMENTLow back pain.Left hip pain. COMPARISON STUDIESNone. TECHNIQUESagittal and axial T1 and T2 weighted images. Vertebral heights and alignment are maintained. The conus medullarisis normal. There is no spinal canal stenosis. There is a small right paracentral or posterior disc protrusion at pmjU60-[id number] level indenting the thecal sac, but not compressing the conus. L1-2No disc herniation or spinal canal or foraminal stenosis. The facetjoints are unremarkable. L2-3There is a mild right foraminal disc protrusion indenting the thecalsac, not significantly encroaching on the neural foramen. The facetjoints are normal. L3-4The L3-4 discs is normal. L4-5The L4-5 disc is normal. L5-A5Llhds is marked decrease in height and signal intensity of theintervertebral disc, with vacuum disc phenomenon and mild diffusebulge of the disc annulus. There is also mild bilateral facetarthropathy. The combination is causing severe foraminal stenosesbilaterally. There is no spinal canal stenosis. Bone marrow edema ispresent within the L5-S1 vertebral segment adjacent to theintervertebral disc. IMPRESSION1. Severe degenerative disc disease at L5-S1, with adjacent bone marrow edema and moderate to severe bilateral foraminal stenoses.2. Mild right paracentral and foraminal disc protrusion at the L2-3 level.3. Mild right paracentral/posterior disc protrusion at T12-L1 level. Reported By: ANA CINTRON M.D. PSA (PROSTATE SPECIFIC ANTIG EN) (V76.44)Ordered By: Bisi Martinez on 05-16-2008 Prostate specific Ag mass conc 0.8 ng/mL Normal 0.0-4.0 [facility] Work Phone: Comment on above: Actual Experience ECLIA methodol ogy. .According to the [employer], PSA should beundetectable after radical prostatectomy. A PSA of less than0.5 ng/mL (or undetectable) is not likely to be associated withdisease recurrence within five years of treatment.Values obtained with different assay methods or kits cannot be usedinterchangeably. Results cannot be interpreted as absolute evidenceof the presence or absence of malignant disease. PATIENT NOT FASTINGC linical Information: ADD DRAW FEE [id number] ADD J [id number] PERFORMED BY: [facility]PalAn[facility] [id number] [id number] By: Nancy em Lobster Catcher on 12-06-2007 Nuclear Ab Ql (S) 16 AU/mL Normal 0-99 Compreh ensive [facility] Work Phone: Comment on above: Negative <100 Equivo katie 100 - 120 Positive >120 B12/FOLATESOrdered By: Ronald woodson Lobster Catcher on 12-06-2007 Cobalamin (Vitamin B12) mass conc 458 pg/mL Normal 211-911 [facility] Work Phone: Folate mass conc ng/mL Normal Comprehe nsive [facility] Medicine Work Phone: C-REACTIVE PROTOrdered By: Yuval root Lobster Catcher on 12-06-2007 CRP mass conc 1.39 mg/L Normal 0.0-6.0 Comprehensi ve Internal Medicine Work Phone: Comment on above: Test performed using the Dimension C-Reactive ProteinExtended Range assay method. This assay meets the AHA/CDC 2003 recommendations fordetermining patients at high risk for cardiovasculardisease. Reference: High risk CRP >3.0 mg/L CBCD,SMEAR DIFFOrdered By: Yuval tem Lobster Catcher on 12-06-2007 Band form neutrophils/100 WBC Manual cnt (Bld) 1 % Normal 0-5 [facility] Work Phone: Eosinophils/100 WBC Auto (Bld) 4 % Normal 0-5 [facility] Work Phone: Erythrocyte distribution width Auto Ratio (RBC) 13.4 % Normal 11.6-14.6 [facility] Work Phone: Hematocrit Auto Volume Fraction (Bld) 44.4 % Normal 40-54 Comprehens mary [facility] Work Phone: Hemoglobin mass conc (Bld) 15.2 g/dL Normal 14.0-18.0 [facility] Work Phone: Lymphocytes/100 WBC Auto (Bld) 44 % Abnormal 19-41 [facility] Work Phone: MCH Auto Entitic mass (RBC) 30.5 pg Normal 27.0-32.0 [facility] Work Phone: MCHC Auto mass conc (RBC) 34.2 g/dL Normal 32-36 [facility] Work Phone: MCV Auto Entitic volume (RBC) 89.0 fL Normal 80-94 [facility] Work Phone: Monocytes/100 WBC Auto (Bld) 3 % Normal 0-10 [facility] Work Phone: Platelets Auto #/vol (Bld) 254 10*3/uL Normal 150-450 [facility] Work Phone: RBC Auto #/vol (Bld) 5.00 {M/mm3} Normal 4.6-6.2 Co mprehensive [facility] Work Phone: WBC Auto #/vol (Bld) 6.7 10*3/uL Normal 4.4-11.0 Com prehensive Internal Medicine Work Phone: CBCD,SMEAR DIFF SeeNote Normal [facility] Internal Medicine Work Phone: Comment on above: Result: NORM C+C Result: ADEQUATE CBCD,SMEAR DIFF 48 % Normal 47-70 [facility] Internal Medicine Work Phone: CBCD,SMEAR DIFF 100 1 Normal [facility] Internal Medicine Work Phone: COMP METABOLICOrdered By: [place] stem Lobster Catcher on 12-06-2007 Albumin mass conc 4.1 g/dL Normal 3.4-5.0 [facility] Internal Medicine Work Phone: Albumin/Globulin mass ratio 1.3 {RATIO} Normal 0.9-2.4 [facility] Internal Medicine Work Phone: ALP enzyme act/vol 89 U/L Normal 50-136 [facility] Work Phone: ALT enzyme act/vol 62 U/L Normal 30-65 [facility] Work Phone: Anion gap 3 molar conc 9 mmol/L Normal 5-15 [facility] Internal Medicine Work Phone: AST enzyme act/vol 34 U/L Normal 15-37 [facility] Work Phone: Bilirubin mass conc 0.38 mg/dL Normal 0.00-1.00 [facility] Internal Medicine Work Phone: Calcium mass conc 8.7 mg/dL Normal 8.5-10.1 [facility] Internal Medicine Work Phone: Chloride molar conc 106 mmol/L Normal 98-107 [facility] Internal Medicine Work Phone: CO2 molar conc 24.1 mmol/L Normal 21.0-32.0 [facility] Internal Medicine Work Phone: Creatinine mass conc 1.1 mg/dL Normal 0.8-1.3 [facility] Internal Medicine Work Phone: Globulin Calculated mass conc (S) 3.1 g/dL Normal 2.7-4.2 [facility] Internal Medicine Work Phone: Glucose mass conc 98 mg/dL Normal 70-110 [facility] Work Phone: Potassium molar conc 4.2 mmol/L Normal 3.5-5.1 [facility] Work Phone: Protein mass conc 7.2 g/dL Normal 6.4-8.2 [facility] Work Phone: Sodium molar conc 139 mmol/L Normal 136-145 [facility] Work Phone: Urea nitrogen mass conc 21 mg/dL Abnormal 7-18 [facility] Work Phone: Urea nitrogen/Creatinine mass ratio 19.1 {RATIO} Normal 10-20 [facility] Work Phone: ESROrdered By: System [employer] r on 12-06-2007 ESR Velocity (Bld) 1 mm/h Normal 0-20 [facility]pre [facility] Work Phone: LIPIDOrdered By: System Madeline derek on 12-06-2007 Cholesterol in HDL mass conc 48 mg/dL Normal [facility] Work Phone: Comment on above: Reference Range HDL <40 mg/dL Low HDL Cholesterol HDL >or= 60 mg/dL High HDL Cholesterol Cholesterol in LDL mass conc 61 mg/dL Normal 0-130 [facility] Work Phone: Cholesterol in VLDL mass conc 17 mg/dL Normal 5-40 [facility] Work Phone: Cholesterol mass conc 126 mg/dL Normal Com prehensive [facility] Work Phone: Comment on above: <200 mg/dL Desirable 200-240 mg/dL Borderline >240 mg/dL High Risk Triglyceride mass conc 83 mg/dL Normal [facility] Work Phone: Comment on above: Serum Triglycerides Reference Interval Normal <150 mg/dL Borderline high 150 - 199 mg/dL High 200 - 499 mg/dL Very High > or = 500 mg/dL MICROALBUMIN,UROrdered By: Yuval ystem Lobster Catcher on 12-06-2007 MICROALBUMIN,UR 11.5 mg/L Normal [facility] Work Phone: RA LATEX [id number] By: Zohra tem Lobster Catcher on 12-06-2007 RA LATEX [id number] 5.5 {IU/mL} Normal 0.0-13.9 [facility] Work Phone: Comment on above: Performed At: [id number] [place], [place] [id number] TSHOrdered By: System Manage r on 12-06-2007 Thyrotropin Qn 1.50 {uIU/mL} Normal 0.34-4.82 [facility] Work Phone: Urinalysis, Office ([id number])Or dered By: Lori Amos on 04-28-2007 Bilirubin Ql (U) Small Normal [facility] Work Phone: Comment on above: RESOLVED Glucose Test strip (U) [Mass/Vol] Negative Normal [facility]; [facility] Work Phone: Comment on above: RESOLVED Glucose Test strip mass conc (U) Negative Normal [facility] Work Phone: Comment on above: RESOLVED Hemoglobin Ql (U) Negative Normal [facility] Work Phone: Comment on above: RESOLVED Hemoglobin Ql (U) Negative Normal [facility]; [facility] Work Phone: Comment on above: RESOLVED Hemoglobin Test strip Ql (U) Negative Normal [facility] Work Phone: Ketones Ql (U) Negative Normal [facility] Work Phone: Comment on above: RESOLVED Ketones Ql (U) Negative Normal [facility]; [facility] Work Phone: Comment on above: RESOLVED Leukocyte esterase Test strip Ql (U) Negative Normal [facility] Work Phone: Comment on above: aw RESOLVED Leukocyte esterase Test strip Ql (U) Negative Normal [facility]; [facility] Work Phone: Comment on above: aw RESOLVED Nitrite Ql (U) Negative Normal [facility] Work Phone: Comment on above: RESOLVED Nitrite Ql (U) Negative Normal [facility]; [facility] Work Phone: Comment on above: RESOLVED Nitrite Test strip Ql (U) Negative Normal [facility] Work Phone: pH (U) 6.0 [pH] Normal [facility] Work Phone: Comment on above: RESOLVED pH Test strip (U) 6.0 [pH] Normal [facility] Work Phone: Protein Ql (U) 30 mg/dL Normal [facility] Work Phone: Comment on above: RESOLVED Protein Test strip Ql (U) 30 mg/dL Normal [facility] Work Phone: Specific gravity Relative Density (U) 1.025 1 Normal Comprehensi ve Internal Medicine Work Phone: Comment on above: RESOLVED Urobilinogen mass/time (24H U) Normal Normal [facility] Work Phone: Comment on above: RESOLVED CBCD,SMEAR DIFFOrdered By: Yuval machadotem Lobster Catcher on 04-20-2007 Band form neutrophils/100 WBC Manual cnt (Bld) 1 % Normal 0-5 [facility] Work Phone: Basophils/100 WBC Auto (Bld) 1 % Normal 0-1 [facility] Work Phone: Eosinophils/100 WBC Auto (Bld) 4 % Normal 0-5 [facility] Work Phone: Erythrocyte distribution width Auto Ratio (RBC) 13.7 % Normal 11.6-14.6 [facility] Work Phone: Hematocrit Auto Volume Fraction (Bld) 43.8 % Normal 40-54 [facility] Work Phone: Hemoglobin mass conc (Bld) 14.9 g/dL Normal 14.0-18.0 [facility] Work Phone: Lymphocytes/100 WBC Auto (Bld) 32 % Normal 19-41 [facility] Work Phone: MCH Auto Entitic mass (RBC) 30.7 pg Normal 27.0-32.0 [facility] Work Phone: MCHC Auto mass conc (RBC) 34.1 g/dL Normal 32-36 [facility] Work Phone: MCV Auto Entitic volume (RBC) 90.1 fL Normal 80-94 [facility] Work Phone: Monocytes/100 WBC Auto (Bld) 4 % Normal 0-10 [facility] Work Phone: Platelets Auto #/vol (Bld) 228 10*3/uL Normal 150-450 [facility] Work Phone: RBC Auto #/vol (Bld) 4.86 {M/mm3} Normal 4.6-6.2 [facility] Work Phone: WBC Auto #/vol (Bld) 6.6 10*3/uL Normal 4.4-11.0 [facility] Internal Medicine Work Phone: CBCD,SMEAR DIFF 100 1 [facility] Work Phone: CBCD,SMEAR DIFF SeeNote Normal [facility] Work Phone: Comment on above: Result: ADEQUATE Result: NORM C&C Result: NEGATIVE Result: TRACE-INTACT CBCD,SMEAR DIFF GIANT Normal [facility] Work Phone: CBCD,SMEAR DIFF 58 % Normal 47-70 [facility] Internal Medicine Work Phone: COMP METABOLICOrdered By: [place] stem Lobster Catcher on 04-20-2007 Albumin mass conc 3.7 g/dL Normal 3.4-5.0 [facility] Internal Medicine Work Phone: Albumin/Globulin mass ratio 1.2 {RATIO} Normal 0.9-2.4 [facility] Work Phone: ALP enzyme act/vol 85 U/L Normal 50-136 [facility] Work Phone: ALT enzyme act/vol 60 [iU]/L Normal 30-65 [facility] Work Phone: Anion gap 3 molar conc 9 mmol/L Normal 5-15 [facility] Work Phone: AST enzyme act/vol 37 U/L Normal 15-37 [facility]pre [facility] Work Phone: Bilirubin mass conc 0.38 mg/dL Normal 0.00-1.00 [facility]pr ehens[facility] Work Phone: Calcium mass conc 8.1 mg/dL Abnormal 8.5-10.1 [facility] Work Phone: Chloride molar conc 105 mmol/L Normal 98-107 [facility]pr e[facility] Work Phone: CO2 molar conc 24.8 mmol/L Normal 21.0-32.0 [facility] Work Phone: Comment on above: Please Note Refer ence Interval Change Creatinine mass conc 1.0 mg/dL Normal 0.8-1.3 [facility] Work Phone: Globulin Calculated mass conc (S) 3.1 g/dL Normal 2.7-4.2 [facility] Work Phone: Comment on above: Please Note Refer ence Interval Change Glucose mass conc 101 mg/dL Normal 70-110 [facility] Work Phone: Potassium molar conc 4.3 mmol/L Normal 3.5-5.1 [facility]: Protein mass conc 6.8 g/dL Normal 6.4-8.2 [facility] Work Phone: Sodium molar conc 139 mmol/L Normal 136-145 [facility] Work Phone: Urea nitrogen mass conc 19 mg/dL Abnormal 7-18 [facility] Work Phone: Urea nitrogen/Creatinine mass ratio 19.0 {RATIO} Normal 10-20 [facility] Work Phone: D BILIOrdered By: System Nate fletcherr on 04-20-2007 Bilirubin.direct mass conc 0.10 mg/dL Normal 0.00-0.30 [facility] Work Phone: LIPIDOrdered By: System Madeline derek on 04-20-2007 Cholesterol in HDL mass conc 43 mg/dL Normal [facility] Work Phone: Comment on above: Reference Range HDL <40 mg/dL Low HDL Cholesterol HDL >or= 60 mg/dL High HDL Cholesterol Cholesterol in LDL mass conc 48 mg/dL Normal 0-130 [facility] Work Phone: Cholesterol in VLDL mass conc 16 mg/dL Normal 5-40 [facility] Work Phone: Cholesterol mass conc 107 mg/dL Normal Com prehensive [facility] Work Phone: Comment on above: <200 mg/dL Desirable 200-240 mg/dL Borderline >240 mg/dL High Risk Triglyceride mass conc 78 mg/dL Normal [facility] Work Phone: Comment on above: Serum Triglycerides Reference Interval Normal <150 mg/dL Borderline high 150 - 199 mg/dL High 200 - 499 mg/dL Very High > or = 500 mg/dL MICROALBUMIN,UROrdered By: Yuval ystem Lobster Catcher on 04-20-2007 MICROALBUMIN,UR 14.4 mg/L Normal Compre[facility] Work Phone: PSA,TOT SCREENOrdered By: Ooploo stem Lobster Catcher on 04-20-2007 Prostate specific Ag mass conc 0.63 ng/mL Normal 0.00-4.00 [facility] Work Phone: Comment on above: This test was perfor med using the TPSA method for theByteActive chemistry system.Values obtained with different assay methods cannot be usedinterchangably.When changing PSA assays in the course of monitoring apatient, additional sequential testing should be carriedout to confirm baseline values. ROUTINE UAOrdered By: Housekeeper/Laundry Assistant on 04-20-2007 ROUTINE UA CLEAR Normal [facility] Work Phone: ROUTINE UA YELLOW Normal [facility] Work Phone: ROUTINE UA 5.0 1 Normal 5.0-8.0 [facility] Work Phone: ROUTINE UA >=1.030 Normal 1.002-1.03 0 [facility] Work Phone: ROUTINE UA 0.2 EU/dl Normal 0.2 - 1.0 [facility] Work Phone: TSHOrdered By: System Manage r on 04-20-2007 Thyrotropin Qn 1.37 {uIU/mL} Normal 0.34-4.82 [facility] Work Phone: LIPIDOrdered By: [employer] on 10-14-2006 Cholesterol in HDL mass conc 43 mg/dL Normal [facility] Work Phone: Comment on above: Reference Range HDL <40 mg/dL Low HDL Cholesterol HDL >or= 60 mg/dL High HDL Cholesterol Cholesterol in LDL mass conc 56 mg/dL Normal 0-130 [facility] Work Phone: Cholesterol in VLDL mass conc 12 mg/dL Normal 5-40 [facility] Work Phone: Cholesterol mass conc 111 mg/dL Normal Com prehensive [facility] Medicine Work Phone: Comment on above: <200 mg/dL Desirable 200-240 mg/dL Borderline >240 mg/dL High Risk Triglyceride mass conc 61 mg/dL Normal [facility] Work Phone: Comment on above: Serum Triglycerides Reference Interval Normal <150 mg/dL Borderline high 150 - 199 mg/dL High 200 - 499 mg/dL Very High > or = 500 mg/dL LIVEROrdered By: System [employer] on 10-14-2006 Albumin mass conc 3.8 g/dL Normal 3.4-5.0 [facility] Work Phone: ALP enzyme act/vol 99 U/L Normal 50-136 [facility]: ALT enzyme act/vol 57 [iU]/L Normal 30-65 [facility] Work Phone: AST enzyme act/vol 32 U/L Normal 15-37 [facility] Work Phone: Bilirubin mass conc 0.39 mg/dL Normal 0.00-1.00 [facility]: Bilirubin.direct mass conc 0.07 mg/dL Normal 0.00-0.30 [facility] Work Phone: Protein mass conc 7.3 g/dL Normal 6.4-8.2 [facility] Work Phone: LIVEROrdered By: System [employer] on 07-05-2006 Albumin mass conc 4.1 g/dL Normal 3.4-5.0 [facility] Work Phone: ALP enzyme act/vol 94 U/L Normal 50-136 Compre [facility] Internal Medicine Work Phone: ALT enzyme act/vol 63 [iU]/L Normal 30-65 [facility] Work Phone: AST enzyme act/vol 28 U/L Normal 15-37 [facility] Work Phone: Bilirubin mass conc 0.39 mg/dL Normal 0.00-1.00 [facility] ehensive Internal Medicine Work Phone: Bilirubin.direct mass conc 0.06 mg/dL Normal 0.00-0.30 [facility] Work Phone: Protein mass conc 7.3 g/dL Normal 6.4-8.2 [facility] Work Phone: PFLIPOrdered By: System [employer] on 07-05-2006 Cholesterol in HDL mass conc 49 mg/dL Normal [facility] Work Phone: Comment on above: Reference Range HDL <40 mg/dL Low HDL Cholesterol HDL >or= 60 mg/dL High HDL Cholesterol Cholesterol in LDL mass conc 52 mg/dL Normal 0-130 [facility] Work Phone: Cholesterol in VLDL mass conc 12 mg/dL Normal 5-40 [facility] Work Phone: Cholesterol mass conc 113 mg/dL Normal [facility] prehensive Internal Medicine Work Phone: Comment on above: <200 mg/dL Desirable 200-240 mg/dL Borderline >240 mg/dL High Risk Triglyceride mass conc 58 mg/dL Normal [facility] Work Phone: Comment on above: Serum Triglycerides Reference Interval Normal <150 mg/dL Borderline high 150 - 199 mg/dL High 200 - 499 mg/dL Very High > or = 500 mg/dL Vital Signs Date Time Vital Sign Value Performing Clinician Facility 01-24-2025 12:58-0400 Body height 177.[address] Shell Siddiqui MD Work Phone: [facility] 01-24-2025 12:58-0400 Body mass index (BMI) [Ratio] 22.9 kg/m2 Dr. Shell Siddiqui MD Work Phone: [facility] 01-24-2025 12:58-0400 Body weight 72.[address] Shell Siddiqui MD Work Phone: [facility] 10-06-2024 09:23-0400 Body height 177.[address] Shell Siddiqui MD Work Phone: [facility] 10-06-2024 09:23-0400 Body mass index (BMI) [Ratio] 23.3 kg/m2 Dr. Shell Siddiqui MD Work Phone: [facility] 10-06-2024 09:23-0400 Body weight 73.[address] Shell Siddiqui MD Work Phone: [facility] 10-06-2024 09:23-0400 Diastolic blood pressure 67 mm[Hg] Dr. Shell Siddiqui MD Work Phone: [facility] 10-06-2024 09:23-0400 Heart rate 55 /min Dr. Shell Siddiqui MD Work Phone: [facility] 10-06-2024 09:23-0400 Respiratory rate 18 /min Dr. Shell Siddiqui MD Work Phone: [facility] 10-06-2024 09:23-0400 SaO2% (BldA) [Mass fraction] 93 % Dr. Shell Siddiqui MD Work Phone: [facility] 10-06-2024 09:23-0400 Systolic blood pressure 166 mm[Hg] Dr. Shell Siddiqui MD Work Phone: [facility] 10-02-2024 10:01-0400 Body temperature 98.6 [degF] Dr. Shell Siddiqui MD Work Phone: [facility] 10-02-2024 10:01-0400 Diastolic blood pressure 60 mm[Hg] Dr. Shell Siddiqui MD Work Phone: [facility] 10-02-2024 10:01-0400 Heart rate 50 /min Dr. Shell Siddiqui MD Work Phone: [facility] 10-02-2024 10:01-0400 Respiratory rate 16 /min Dr. Shell Siddiqui MD Work Phone: [facility] 10-02-2024 10:01-0400 SaO2% (BldA) [Mass fraction] 94 % Dr. Shell Siddiqui MD Work Phone: [facility] 10-02-2024 10:01-0400 Systolic blood pressure 118 mm[Hg] Dr. Shell Siddiqui MD Work Phone: [facility] 10-02-2024 09:50-0400 Inhaled oxygen flow rate 2 L/min Dr. Shell Siddiqui MD Work Phone: [facility] 10-02-2024 08:31-0400 Body height 177.[address] Shell Siddiqui MD Work Phone: [facility] 10-02-2024 08:31-0400 Body mass index (BMI) [Ratio] 24 kg/m2 Dr. Shell Siddiqui MD Work Phone: [facility] 10-02-2024 08:31-0400 Body weight [address] Shell Siddiqui MD Work Phone: [facility] 08-17-2024 10:15-0500 Body height 177.[address] Shell Siddiqui MD Work Phone: [facility] 08-17-2024 10:15-0500 Body mass index (BMI) [Ratio] 24.3 kg/m2 Dr. Shell Siddiqui MD Work Phone: [facility] 08-17-2024 10:15-0500 Body weight 77.[address] Shell Siddiqui MD Work Phone: [facility] 08-17-2024 10:15-0500 Diastolic blood pressure 68 mm[Hg] Dr. Shell Siddiqui MD Work Phone: [facility] 08-17-2024 10:15-0500 Heart rate 63 /min Dr. Shell Siddiqui MD Work Phone: [facility] 08-17-2024 10:15-0500 Respiratory rate 18 /min Dr. Shell Siddiqui MD Work Phone: [facility] 08-17-2024 10:15-0500 SaO2% (BldA) [Mass fraction] 96 % Dr. Shell Siddiqui MD Work Phone: [facility] 08-17-2024 10:15-0500 Systolic blood pressure 175 mm[Hg] Dr. Shell Siddiqui MD Work Phone: [facility] 07-11-2024 14:50-0500 Diastolic blood pressure 62 mm[Hg] Dr. Shell Siddiqui MD Work Phone: [facility] 07-11-2024 14:50-0500 Heart rate 81 /min Dr. Shell Siddiqui MD Work Phone: [facility] 07-11-2024 14:50-0500 Respiratory rate 18 /min Dr. Shell Siddiqui MD Work Phone: [facility] 07-11-2024 14:50-0500 SaO2% (BldA) [Mass fraction] 97 % Dr. Shell Siddiqui MD Work Phone: [facility] 07-11-2024 14:50-0500 Systolic blood pressure 176 mm[Hg] Dr. Shell Siddiqui MD Work Phone: [facility] 07-11-2024 13:02-0500 Body mass index (BMI) [Ratio] 22.9 kg/m2 Dr. Shell Siddiqui MD Work Phone: [facility] 07-11-2024 13:02-0500 Body temperature 97.8 [degF] Dr. Shell Siddiqui MD Work Phone: [facility] 07-11-2024 13:02-0500 Body weight 72.[address] Shell Siddiqui MD Work Phone: [facility] 06-09-2024 09:21-0500 Body mass index (BMI) [Ratio] 22.6 kg/m2 Dr. Shell Siddiqui MD Work Phone: [facility] 06-09-2024 09:21-0500 Body weight 71.[address] Shell Siddiqui MD Work Phone: [facility] 05-13-2024 13:12-0500 Body mass index (BMI) [Ratio] 23.47 kg/m2 Ok Athy PA-C Work Phone: [facility] 05-13-2024 13:12-0500 Body temperature 99.1 [degF] Ok Athy PA-C Work Phone: [facility] 05-13-2024 13:12-0500 Body weight 74.2 kg Ok Athy PA-C Work Phone: [facility] 05-13-2024 13:12-0500 Diastolic blood pressure 70 mm[Hg] Ok Athy PA-C Work Phone: [facility] 05-13-2024 13:12-0500 Heart rate 94 /min Ok Athy PA-C Work Phone: [facility] 05-13-2024 13:12-0500 Respiratory rate 20 /min Ok Athy PA-C Work Phone: [facility] 05-13-2024 13:12-0500 SaO2% (BldA) [Mass fraction] 97 % Ok Athy PA-C Work Phone: [facility] 05-13-2024 13:12-0500 Systolic blood pressure 110 mm[Hg] Ok Nicolas PA-C Work Phone: [facility] 08-26-2023 09:30-0400 Body temperature 97.8 [degF] Dr. Shell Siddiqui Work Phone: [facility] 08-26-2023 09:30-0400 Diastolic blood pressure 55 mm[Hg] Dr. Shell Siddiqui Work Phone: [facility] 08-26-2023 09:30-0400 Heart rate 52 /min Dr. Shell Siddiqui Work Phone: [facility] 08-26-2023 09:30-0400 Respiratory rate 16 /min Dr. Shell Siddiqui Work Phone: [facility] 08-26-2023 09:30-0400 SaO2% (BldA) [Mass fraction] 94 % Dr. Shell Siddiqui Work Phone: [facility] 08-26-2023 09:30-0400 Systolic blood pressure 117 mm[Hg] Dr. Shell Siddiqui Work Phone: [facility] 08-26-2023 09:25-0400 Inhaled oxygen flow rate 2 L/min Dr. Shell Siddiqui Work Phone: [facility] 08-26-2023 07:33-0400 Body height 177.[address] Shell Siddiqui Work Phone: [facility] 08-26-2023 07:33-0400 Body mass index (BMI) [Ratio] 24.6 kg/m2 Dr. Shell Siddiqui Work Phone: [facility] 08-26-2023 07:33-0400 Body weight 77.[address] Shell Siddiqui Work Phone: [facility] 08-24-2023 09:54-0400 Body mass index (BMI) [Ratio] 24.5 kg/m2 Dr. Shell Siddiqui Work Phone: [facility] 08-24-2023 09:54-0400 Body weight 77.[address] Shell Siddiqui Work Phone: [facility] 08-24-2023 09:54-0400 Diastolic blood pressure 79 mm[Hg] Dr. Shell Siddiqui Work Phone: [facility] 08-24-2023 09:54-0400 Heart rate 61 /min Dr. Shell Siddiqui Work Phone: [facility] 08-24-2023 09:54-0400 Respiratory rate 18 /min Dr. Shell Siddiqui Work Phone: [facility] 08-24-2023 09:54-0400 SaO2% (BldA) [Mass fraction] 99 % Dr. Shell Siddiqui Work Phone: [facility] 08-24-2023 09:54-0400 Systolic blood pressure 139 mm[Hg] Dr. Shell Siddiqui Work Phone: [facility] 07-27-2023 14:25-0500 Body mass index (BMI) [Ratio] 24.8 kg/m2 Dr. Shell Siddiqui Work Phone: [facility] 07-27-2023 14:25-0500 Body temperature 96.7 [degF] Dr. Shell Siddiqui Work Phone: [facility] 07-27-2023 14:25-0500 Body weight 78.[address] Shell Siddiqui Work Phone: [facility] 07-27-2023 14:25-0500 Diastolic blood pressure 78 mm[Hg] Dr. Shell Siddiqui Work Phone: [facility] 07-27-2023 14:25-0500 Heart rate 72 /min Dr. Shell Siddiqui Work Phone: [facility] 07-27-2023 14:25-0500 Respiratory rate 17 /min Dr. Shell Siddiqui Work Phone: [facility] 07-27-2023 14:25-0500 SaO2% (BldA) [Mass fraction] 100 % Dr. Shell Siddiqui Work Phone: [facility] 07-27-2023 14:25-0500 Systolic blood pressure 135 mm[Hg] Dr. Shell Siddiqui Work Phone: [facility] 07-14-2023 09:48-0500 Body mass index (BMI) [Ratio] 24.3 kg/m2 Dr. Shell Siddiqui Work Phone: [facility] 07-14-2023 09:48-0500 Body temperature 97.3 [degF] Dr. Shell Siddiqui Work Phone: [facility] 07-14-2023 09:48-0500 Body weight 76.[address] Shell Siddiqui Work Phone: [facility] 07-14-2023 09:48-0500 Diastolic blood pressure 72 mm[Hg] Dr. Shell Siddiqui Work Phone: [facility] 07-14-2023 09:48-0500 Heart rate 81 /min Dr. Shell Siddiqui Work Phone: [facility] 07-14-2023 09:48-0500 Respiratory rate 16 /min Dr. Shell Siddiqui Work Phone: [facility] 07-14-2023 09:48-0500 SaO2% (BldA) [Mass fraction] 97 % Dr. Shell Siddiqui Work Phone: [facility] 07-14-2023 09:48-0500 Systolic blood pressure 120 mm[Hg] Dr. Shell Siddiqui Work Phone: [facility] 06-22-2023 13:12-0500 Body height 177.8 cm Ervin Anderson MD Work Phone: [facility] 06-22-2023 13:12-0500 Body mass index (BMI) [Ratio] 24.35 kg/m2 Ervin Anderson MD Work Phone: [facility] 06-22-2023 13:12-0500 Body temperature 99.1 [degF] Ervin Anderson MD Work Phone: [facility] 06-22-2023 13:12-0500 Body weight 76.97 kg Ervin Anderson MD Work Phone: [facility] 05-10-2023 10:22-0500 Body height 177.[address] Bisi Martinez Work Phone: [facility] 05-10-2023 10:22-0500 Body mass index (BMI) [Ratio] 24.2 kg/m2 Dr. Bisi Martinez Work Phone: [facility] 05-10-2023 10:22-0500 Body temperature 97.3 [degF] Dr. Bisi Martinez Work Phone: [facility] 05-10-2023 10:22-0500 Body weight 76.[address] Bisi Martinez Work Phone: [facility] 05-10-2023 10:22-0500 Diastolic blood pressure 80 mm[Hg] Dr. Bisi Martinez Work Phone: [facility] 05-10-2023 10:22-0500 Heart rate 60 /min Dr. Bisi Martinez Work Phone: [facility] 05-10-2023 10:22-0500 Respiratory rate 16 /min Dr. Bisi Martinez Work Phone: [facility] 05-10-2023 10:22-0500 SaO2% (BldA) [Mass fraction] 93 % Dr. Bisi Martinez Work Phone: [facility] 05-10-2023 10:22-0500 Systolic blood pressure 132 mm[Hg] Dr. Bisi Martinez Work Phone: [facility] 03-29-2023 08:59-0400 Body mass index (BMI) [Ratio] 23.8 kg/m2 Dr. Bisi Martinez Work Phone: [facility] 03-29-2023 08:59-0400 Body temperature 97.4 [degF] Dr. Bisi Martinez Work Phone: [facility] 03-29-2023 08:59-0400 Body weight 75.[address] Bisi Martinez Work Phone: [facility] 03-29-2023 08:59-0400 Diastolic blood pressure 78 mm[Hg] Dr. Bisi Martinez Work Phone: [facility] 03-29-2023 08:59-0400 Heart rate 62 /min Dr. Bisi Martinez Work Phone: [facility] 03-29-2023 08:59-0400 Respiratory rate 16 /min Dr. Bisi Martinez Work Phone: [facility] 03-29-2023 08:59-0400 SaO2% (BldA) [Mass fraction] 98 % Dr. Bisi Martinez Work Phone: [facility] 03-29-2023 08:59-0400 Systolic blood pressure 136 mm[Hg] Dr. Bisi Martinez Work Phone: [facility] 02-24-2023 08:54-0400 Body height 177.[address] Shell Siddiqui Work Phone: [facility] 02-24-2023 08:54-0400 Body mass index (BMI) [Ratio] 23.8 kg/m2 Dr. Shell Siddiqui Work Phone: [facility] 02-24-2023 08:54-0400 Body temperature 96.6 [degF] Dr. Shell Siddiqui Work Phone: [facility] 02-24-2023 08:54-0400 Body weight 75.[address] Shell Siddiqui Work Phone: [facility] 02-24-2023 08:54-0400 Diastolic blood pressure 62 mm[Hg] Dr. Shell Siddiqui Work Phone: [facility] 02-24-2023 08:54-0400 Heart rate 74 /min Dr. Shell Siddiqui Work Phone: [facility] 02-24-2023 08:54-0400 Respiratory rate 18 /min Dr. Shell Siddiqui Work Phone: [facility] 02-24-2023 08:54-0400 SaO2% (BldA) [Mass fraction] 97 % Dr. Shell Siddiqui Work Phone: [facility] 02-24-2023 08:54-0400 Systolic blood pressure 116 mm[Hg] Dr. Shell Siddiqui Work Phone: [facility] 02-22-2023 08:52-0400 Body height 177.[address] Shell Siddiqui Work Phone: [facility] 02-22-2023 08:52-0400 Body mass index (BMI) [Ratio] 23.8 kg/m2 Dr. Shell Siddiqui Work Phone: [facility] 02-22-2023 08:52-0400 Body weight 75.[address] Shell Siddiqui Work Phone: [facility] 02-22-2023 08:52-0400 Diastolic blood pressure 66 mm[Hg] Dr. Shell Siddiqui Work Phone: [facility] 02-22-2023 08:52-0400 Heart rate 69 /min Dr. Shell Siddiqui Work Phone: [facility] 02-22-2023 08:52-0400 Respiratory rate 18 /min Dr. Shell Siddiqui Work Phone: [facility] 02-22-2023 08:52-0400 SaO2% (BldA) [Mass fraction] 97 % Dr. Shell Siddiqui Work Phone: [facility] 02-22-2023 08:52-0400 Systolic blood pressure 119 mm[Hg] Dr. Shell Siddiqui Work Phone: [facility] 01-13-2023 09:28-0400 Body mass index (BMI) [Ratio] 23.6 kg/m2 Dr. Shell Siddiqui Work Phone: [facility] 01-13-2023 09:28-0400 Body temperature 95.5 [degF] Dr. Shell Siddiqui Work Phone: [facility] 01-13-2023 09:28-0400 Body weight 74.[address] Shell Siddiqui Work Phone: [facility] 01-13-2023 09:28-0400 Diastolic blood pressure 66 mm[Hg] Dr. Shell Siddiqui Work Phone: [facility] 01-13-2023 09:28-0400 Heart rate 72 /min Dr. Shell Siddiqui Work Phone: [facility] 01-13-2023 09:28-0400 Respiratory rate 18 /min Dr. Shell Siddiqui Work Phone: [facility] 01-13-2023 09:28-0400 SaO2% (BldA) [Mass fraction] 96 % Dr. Shell Siddiqui Work Phone: [facility] 01-13-2023 09:28-0400 Systolic blood pressure 116 mm[Hg] Dr. Shell Siddiqui Work Phone: [facility] 11-17-2022 09:28-0400 Body height 177.[address] Bisi Martinez Work Phone: [facility] 11-17-2022 09:28-0400 Body mass index (BMI) [Ratio] 23.9 kg/m2 Dr. Bisi Martinez Work Phone: [facility] 11-17-2022 09:28-0400 Body temperature 97.3 [degF] Dr. Bisi Martinez Work Phone: [facility] 11-17-2022 09:28-0400 Body weight 75.[address] Bisi Martinez Work Phone: [facility] 11-17-2022 09:28-0400 Diastolic blood pressure 72 mm[Hg] Dr. Bisi Martinez Work Phone: [facility] 11-17-2022 09:28-0400 Heart rate 63 /min Dr. Bisi Martinez Work Phone: [facility] 11-17-2022 09:28-0400 Respiratory rate 14 /min Dr. Bisi Martinez Work Phone: [facility] 11-17-2022 09:28-0400 SaO2% (BldA) [Mass fraction] 98 % Dr. Bisi Martinez Work Phone: [facility] 11-17-2022 09:28-0400 Systolic blood pressure 124 mm[Hg] Dr. Bisi Martinez Work Phone: [facility] 11-03-2022 10:11-0400 Body mass index (BMI) [Ratio] 23.8 kg/m2 Dr. Bisi Martinez Work Phone: [facility] 11-03-2022 10:11-0400 Body temperature 98.2 [degF] Dr. Bisi Martinez Work Phone: [facility] 11-03-2022 10:11-0400 Body weight 75.[address] Bisi Martinez Work Phone: [facility] 11-03-2022 10:11-0400 Diastolic blood pressure 64 mm[Hg] Dr. Bisi Martinez Work Phone: [facility] 11-03-2022 10:11-0400 Heart rate 67 /min Dr. Bisi Martinez Work Phone: [facility] 11-03-2022 10:11-0400 Respiratory rate 14 /min Dr. Bisi Martinez Work Phone: [facility] 11-03-2022 10:11-0400 SaO2% (BldA) [Mass fraction] 99 % Dr. Bisi Martinez Work Phone: [facility] 11-03-2022 10:11-0400 Systolic blood pressure 122 mm[Hg] Dr. Bisi Martinez Work Phone: [facility] 10-13-2022 09:56-0400 Diastolic blood pressure 64 mm[Hg] Dr. Bisi Martinez Work Phone: [facility] 10-13-2022 09:56-0400 Systolic blood pressure 144 mm[Hg] Dr. Bisi Martinez Work Phone: [facility] 10-13-2022 08:56-0400 Body height 177.[address] Bisi Martinez Work Phone: [facility] 10-13-2022 08:56-0400 Body mass index (BMI) [Ratio] 24 kg/m2 Dr. Bisi Martinez Work Phone: [facility] 10-13-2022 08:56-0400 Body temperature 99 [degF] Dr. Bisi Martinez Work Phone: [facility] 10-13-2022 08:56-0400 Body weight 76.[address] Bisi Martinez Work Phone: [facility] 10-13-2022 08:56-0400 Heart rate 66 /min Dr. Bisi Martinez Work Phone: [facility] 10-13-2022 08:56-0400 Respiratory rate 16 /min Dr. Bisi Martinez Work Phone: [facility] 10-13-2022 08:56-0400 SaO2% (BldA) [Mass fraction] 97 % Dr. Bisi Martinez Work Phone: [facility] 09-17-2022 12:48-0400 Body height 162.56 cm [facility] Work Phone: 09-17-2022 12:48-0400 Body mass index (BMI) [Ratio] 29.07 kg/m2 [facility] Work Phone: 09-17-2022 12:48-0400 Body surface area Derived from formula 1.82 m2 [facility] Work Phone: 09-17-2022 12:48-0400 Body temperature 97.1 [degF] [facility] Work Phone: 09-17-2022 12:48-0400 Body weight 76.83 kg [facility] Work Phone: 09-17-2022 12:48-0400 Diastolic blood pressure 80 mm[Hg] [facility] Work Phone: 09-17-2022 12:48-0400 Heart rate 62 /min [facility] Work Phone: 09-17-2022 12:48-0400 Respiratory rate 16 /min [facility] Work Phone: 09-17-2022 12:48-0400 SaO2% (BldA) [Mass fraction] 97 % [facility] Work Phone: 09-17-2022 12:48-0400 Systolic blood pressure 130 mm[Hg] [facility] Work Phone: 08-27-2022 08:43-0400 Body height 162.56 cm Gilda Hogue MA [facility]; [facility] Work Phone: 08-27-2022 08:43-0400 Body mass index (BMI) [Ratio] 28.54 kg/m2 Gilda Hogue MA [facility]; [facility] Work Phone: 08-27-2022 08:43-0400 Body surface area Derived from formula 1.81 m2 Gilda Hogue MA [facility]; [facility] Work Phone: 08-27-2022 08:43-0400 Body temperature 97.8 [degF] Gilda Hogue MA [facility] Work Phone: 08-27-2022 08:43-0400 Body weight 75.41 kg Gilda Hogue MA [facility]; [facility] Work Phone: 08-27-2022 08:43-0400 Diastolic blood pressure 80 mm[Hg] Gilda Hogue MA [facility] Work Phone: 08-27-2022 08:43-0400 Heart rate 62 /min Gilda Hogue MA [facility]; [facility] Work Phone: 08-27-2022 08:43-0400 Respiratory rate 16 /min Gilda Hogue MA [facility] Work Phone: 08-27-2022 08:43-0400 SaO2% (BldA) [Mass fraction] 99 % Gilda Hogue MA [facility]; [facility] Work Phone: 08-27-2022 08:43-0400 Systolic blood pressure 110 mm[Hg] Gilda Hogue MA [facility] Work Phone: 05-24-2022 11:41-0500 Body temperature 98.06 [degF] ROBBY BOSWELL DO [facility] 05-24-2022 11:41-0500 Diastolic Blood Pressure Non-Invasive 66 1 ROBBY BOSWELL DO [facility] 05-24-2022 11:41-0500 Heart rate 67 /min ROBBY BOSWELL DO [facility] 05-24-2022 11:41-0500 Reason For Taking VItal Signs ROBBY BOSWELL DO [facility] 05-24-2022 11:41-0500 Respiratory rate 18 /min ROBBY BOSWELL DO [facility] 05-24-2022 11:41-0500 Systolic Blood Pressure Non-Invasive 131 1 ROBBY BOSWELL DO [facility] 05-24-2022 08:36-0500 Heart rate 70 /min ROBBY BOSWELL DO [facility] 05-24-2022 07:16-0500 Body temperature 98.06 [degF] ROBBY BOSWELL DO [facility] 05-24-2022 07:16-0500 Diastolic Blood Pressure Non-Invasive 69 1 ROBBY BOSWELL DO [facility] 05-24-2022 07:16-0500 Heart rate 77 /min ROBBY BOSWELL DO [facility] 05-24-2022 07:16-0500 Respiratory rate 18 /min ROBBY BOSWELL DO [facility] 05-24-2022 07:16-0500 Systolic Blood Pressure Non-Invasive 149 1 ROBBY BOSWELL DO [facility] 05-24-2022 04:11-0500 Body weight 81.8 kg ROBBY BOSWELL DO [facility] 05-24-2022 04:07-0500 Diastolic Blood Pressure Non-Invasive 81 1 ROBBY BOSWELL DO [facility] 05-24-2022 04:07-0500 Reason For Taking VItal Signs ROBBY BOSWELL DO [facility] 05-24-2022 04:07-0500 Respiratory rate 18 /min ROBBY BOSWELL DO [facility] 05-24-2022 04:07-0500 Systolic Blood Pressure Non-Invasive 154 1 ROBBY BOSWELL DO [facility] 05-24-2022 03:02-0500 Reason For Taking VItal Signs ROBBY BOSWELL DO [facility] 05-23-2022 23:29-0500 Body temperature 97.52 [degF] ROBBY BOSWELL DO [facility] 05-23-2022 11:58-0500 Heart rate 78 /min ROBBY BOSWELL DO [facility] 05-23-2022 04:16-0500 Heart rate 82 /min ROBBY BOSWELL DO [facility] 05-23-2022 00:16-0500 Heart rate 82 /min ROBBY BOSWELL DO [facility] 05-22-2022 03:03-0500 Body weight 80.3 kg ROBBY BOSWELL DO [facility] 05-20-2022 13:39-0500 Body height 177.8 cm ROBBY BOSWELL DO [facility] 05-20-2022 13:39-0500 Body weight 74.8 kg ROBBY BOSWELL DO [facility] 05-20-2022 13:39-0500 Body weight 23.66 kg/m2 ROBBY BOSWELL DO [facility] 05-20-2022 09:35-0500 Body temperature 97.7 [degF] ROBBY BOSWELL DO [facility] 05-20-2022 09:30-0500 Respiratory Rate - Anes 2 br/min ROBBY BOSWELL DO [facility] 05-20-2022 09:25-0500 Respiratory Rate - Anes 2 br/min ROBBY BOSWELL DO [facility] 05-20-2022 09:20-0500 Respiratory Rate - Anes 9 br/min ROBBY BOSWELL DO [facility] 05-20-2022 09:15-0500 Body temperature 96.8 [degF] ROBBY BOSWELL DO [facility] 05-20-2022 08:45-0500 Body temperature 96.8 [degF] ROBBY BOSWELL DO [facility] 05-20-2022 06:34-0500 Body height 177.8 cm ROBBY BOSWELL DO [facility] 05-20-2022 06:34-0500 Body temperature 97.16 [degF] ROBBY BOSWELL DO [facility] 05-20-2022 06:34-0500 Heart rate 59 /min ROBBY BOSWELL DO [facility] 05-06-2022 08:49-0500 Body height 177.8 cm ROBBY BOSWELL DO [facility] 05-06-2022 08:49-0500 Body weight 74.8 kg ROBBY BOSWELL DO [facility] 05-06-2022 08:49-0500 Body weight 23.66 kg/m2 ROBBY BOSWELL DO [facility] 05-06-2022 08:49-0500 diastolic 62 mm[Hg] ROBBY BOSWELL DO [facility] 05-06-2022 08:49-0500 Heart rate 54 /min ROBBY BOSWELL DO [facility] 05-06-2022 08:49-0500 Respiratory rate 20 /min ROBBY BOSWELL DO [facility] 05-06-2022 08:49-0500 systolic 128 mm[Hg] ROBBY BOSWELL DO [facility] 04-23-2022 09:27-0500 Body height 177.[address] Bisi Martinez Work Phone: [facility] 04-23-2022 09:27-0500 Body mass index (BMI) [Ratio] 24.5 kg/m2 Dr. Bisi Martinez Work Phone: [facility] 04-23-2022 09:27-0500 Body weight 77.[address] Bisi Martinez Work Phone: [facility] 04-23-2022 09:27-0500 Diastolic blood pressure 70 mm[Hg] Dr. Bisi Martinez Work Phone: [facility] 04-23-2022 09:27-0500 Heart rate 66 /min Dr. Bisi Martinez Work Phone: [facility] 04-23-2022 09:27-0500 Respiratory rate 18 /min Dr. Bisi Martinez Work Phone: [facility] 04-23-2022 09:27-0500 SaO2% (BldA) [Mass fraction] 96 % Dr. Bisi Martinez Work Phone: [facility] 04-23-2022 09:27-0500 Systolic blood pressure 135 mm[Hg] Dr. Bisi Martinez Work Phone: [facility] 03-31-2022 08:34-0400 Body height 177.[address] Bisi Martinez Work Phone: [facility] Work Phone: 03-31-2022 08:34-0400 Body weight 77.[address] Bisi Martinez Work Phone: [facility] 03-30-2022 07:04-0400 Body mass index (BMI) [Ratio] 24.3 kg/m2 Dr. Bisi Martinez Work Phone: [facility] 03-23-2022 10:12-0400 Body mass index (BMI) [Ratio] 24.3 kg/m2 Dr. Bisi Martinez Work Phone: [facility] 03-23-2022 10:12-0400 Body weight 77.[address] Bisi Martinez Work Phone: [facility] 03-23-2022 10:12-0400 Diastolic blood pressure 82 mm[Hg] Dr. Bisi Martinez Work Phone: [facility] 03-23-2022 10:12-0400 Heart rate 65 /min Dr. Bisi Martinez Work Phone: [facility] 03-23-2022 10:12-0400 Respiratory rate 18 /min Dr. Bisi Martinez Work Phone: [facility] 03-23-2022 10:12-0400 SaO2% (BldA) [Mass fraction] 95 % Dr. Bisi Martinez Work Phone: [facility] 03-23-2022 10:12-0400 Systolic blood pressure 140 mm[Hg] Dr. Bisi Martinez Work Phone: [facility] 03-04-2022 08:02-0400 Body height 162.56 cm Pauline Beltran [facility] Work Phone: 03-04-2022 08:02-0400 Body mass index (BMI) [Ratio] 28.54 kg/m2 Pauline Yadiius [facility] Work Phone: 03-04-2022 08:02-0400 Body surface area Derived from formula 1.81 m2 Pauline Grullonius [facility] Work Phone: 03-04-2022 08:02-0400 Body temperature 97.5 [degF] Pauline Grullonius [facility] Work Phone: 03-04-2022 08:02-0400 Body weight 75.41 kg Pauline Beltran [facility] Work Phone: 03-04-2022 08:02-0400 Diastolic blood pressure 82 mm[Hg] Pauline Grullonius [facility] Work Phone: 03-04-2022 08:02-0400 Heart rate 67 /min Pauline Yadiius [facility] Work Phone: 03-04-2022 08:02-0400 Respiratory rate 18 /min Pauline Yadiius [facility] Work Phone: 03-04-2022 08:02-0400 SaO2% (BldA) [Mass fraction] 97 % Pauline Yadiius [facility] Work Phone: 03-04-2022 08:02-0400 Systolic blood pressure 120 mm[Hg] Pauline Yadiius [facility] Work Phone: 01-26-2022 08:48-0400 Body height 177.[address] Bisi Martinez Work Phone: [facility] Work Phone: 01-26-2022 08:48-0400 Body mass index (BMI) [Ratio] 24 kg/m2 Dr. Bisi Martinez Work Phone: [facility] Work Phone: 01-26-2022 08:48-0400 Body weight 76.[address] Bisi Martinez Work Phone: [facility] Work Phone: 01-26-2022 08:48-0400 Diastolic blood pressure 74 mm[Hg] Dr. Bisi Martinez Work Phone: [facility] Work Phone: 01-26-2022 08:48-0400 Heart rate 63 /min Dr. Bisi Martinez Work Phone: [facility] Work Phone: 01-26-2022 08:48-0400 Respiratory rate 18 /min Dr. Bisi Martinez Work Phone: [facility] Work Phone: 01-26-2022 08:48-0400 SaO2% (BldA) [Mass fraction] 96 % Dr. Bisi Martinez Work Phone: [facility] Work Phone: 01-26-2022 08:48-0400 Systolic blood pressure 120 mm[Hg] Dr. Bisi Martinez Work Phone: [facility] Work Phone: 01-15-2022 08:09-0400 Body height 162.56 cm [facility]; [facility] Work Phone: 01-15-2022 08:09-0400 Body mass index (BMI) [Ratio] 28.71 kg/m2 [facility]; [facility] Work Phone: 01-15-2022 08:09-0400 Body surface area Derived from formula 1.81 m2 Pauline Beltran [facility] Work Phone: 01-15-2022 08:09-0400 Body temperature 97.3 [degF] Pauline Beltran CMA [facility]; [facility] Work Phone: Comment on above: Method: Infrared 01-15-2022 08:09-0400 Body weight 75.86 kg Pauline Beltran [facility] Work Phone: 01-15-2022 08:09-0400 Diastolic blood pressure 70 mm[Hg] Pauline Beltran [facility]; [facility] Work Phone: Comment on above: Patient Position: Sitting; Cuff Location : Left Arm; Cuff Size: Standard 01-15-2022 08:09-0400 Heart rate 71 /min Pauline Beltran [facility] Work Phone: Comment on above: Pattern: Regular 01-15-2022 08:09-0400 Respiratory rate 18 /min Pauline Beltran [facility]; [facility] Work Phone: Comment on above: Pattern: Unlabored 01-15-2022 08:09-0400 SaO2% (BldA) [Mass fraction] 96 % Pauline Beltran [facility]; [facility] Work Phone: Comment on above: Room air 01-15-2022 08:09-0400 Systolic blood pressure 132 mm[Hg] Pauline Beltran [facility] Work Phone: Comment on above: Patient Position: Sitting; Cuff Location : Left Arm; Cuff Size: Standard 11-12-2021 07:07-0400 Body height 177.[address] Bisi Martinez Work Phone: [facility] Work Phone: 11-12-2021 07:07-0400 Body weight 74.[address] Bisi Martinez Work Phone: [facility] Work Phone: 11-11-2021 09:59-0400 Body mass index (BMI) [Ratio] 23.5 kg/m2 Dr. Bisi Martinez Work Phone: [facility] Work Phone: 10-31-2021 08:28-0400 Body height 162.56 cm Pauline Beltran [facility] Work Phone: 10-31-2021 08:28-0400 Body mass index (BMI) [Ratio] 28.88 kg/m2 Pauline Beltran [facility] Work Phone: 10-31-2021 08:28-0400 Body surface area Derived from formula 1.82 m2 Pauline Beltran [facility]; [facility] Work Phone: 10-31-2021 08:28-0400 Body temperature 97.4 [degF] Pauline Beltran [facility]; [facility] Work Phone: Comment on above: Method: Infrared 10-31-2021 08:28-0400 Body weight 76.32 kg Pauline Beltran [facility]; [facility] Work Phone: 10-31-2021 08:28-0400 Diastolic blood pressure 70 mm[Hg] Pauline Beltran [facility]; [facility] Work Phone: Comment on above: Patient Position: Sitting; Cuff Location : Left Arm; Cuff Size: Standard 10-31-2021 08:28-0400 Heart rate 67 /min Pauline Beltran [facility]; [facility] Work Phone: Comment on above: Pattern: Regular 10-31-2021 08:28-0400 SaO2% (BldA) [Mass fraction] 97 % Pauline Beltran [facility]; [facility] Work Phone: Comment on above: Room air 10-31-2021 08:28-0400 Systolic blood pressure 110 mm[Hg] Pauline Beltran [facility]; [facility] Work Phone: Comment on above: Patient Position: Sitting; Cuff Location : Left Arm; Cuff Size: Standard 10-17-2021 08:21-0400 Body height 177.[address] Bisi Martinez Work Phone: [facility] Work Phone: 10-17-2021 08:21-0400 Body mass index (BMI) [Ratio] 24.2 kg/m2 Dr. Bisi Martinez Work Phone: [facility] Work Phone: 10-17-2021 08:21-0400 Body weight 76.[address] Bisi Martinez Work Phone: [facility] Work Phone: 10-17-2021 08:21-0400 Diastolic blood pressure 79 mm[Hg] Dr. Bisi Martinez Work Phone: [facility] Work Phone: 10-17-2021 08:21-0400 Heart rate 68 /min Dr. Bisi Martinez Work Phone: [facility] Work Phone: 10-17-2021 08:21-0400 Respiratory rate 18 /min Dr. Bisi Martinez Work Phone: [facility] Work Phone: 10-17-2021 08:21-0400 SaO2% (BldA) [Mass fraction] 96 % Dr. Bisi Martinez Work Phone: [facility] Work Phone: 10-17-2021 08:21-0400 Systolic blood pressure 135 mm[Hg] Dr. Bisi Martinez Work Phone: [facility] Work Phone: 07-24-2021 08:19-0500 Body height 162.56 cm Pauline Beltran [employer] [facility] Work Phone: Comment on above: no vs taken as this is phone encounter d ue to covid 07-24-2021 08:19-0500 Body mass index (BMI) [Ratio] 29.05 kg/m2 Pauline Beltran [facility] Work Phone: Comment on above: no vs taken as this is phone encounter d ue to covid 07-24-2021 08:19-0500 Body surface area Derived from formula 1.82 m2 Pauline Beltran [facility] Work Phone: Comment on above: no vs taken as this is phone encounter d ue to covid 07-24-2021 08:19-0500 Body weight 76.77 kg Pauline Beltran [facility] Work Phone: Comment on above: no vs taken as this is phone encounter d ue to covid 07-02-2021 13:29-0500 Body height 162.56 cm Prema Cortés LPN [facility] Work Phone: 07-02-2021 13:29-0500 Body mass index (BMI) [Ratio] 29.05 kg/m2 Prema Cortés LPN [facility]; [facility] Work Phone: 07-02-2021 13:29-0500 Body surface area Derived from formula 1.82 m2 Prema Cortés LPN [facility]; [facility] Work Phone: 07-02-2021 13:29-0500 Body temperature 97.1 [degF] Prema Cortés LPN [facility] Work Phone: 07-02-2021 13:29-0500 Body weight 76.77 kg Prema Cortés LPN [facility]; [facility] Work Phone: 07-02-2021 13:29-0500 Diastolic blood pressure 80 mm[Hg] Prema Cortés LPN [facility]; [facility] Work Phone: Comment on above: Patient Position: Sitting; Cuff Location : Left Arm; Cuff Size: Standard 07-02-2021 13:29-0500 Heart rate 67 /min Prema Cortés [facility]; [facility] Work Phone: Comment on above: Pattern: Regular 07-02-2021 13:29-0500 Respiratory rate 16 /min Prema Cortés LPN [facility] Work Phone: Comment on above: Pattern: Unlabored 07-02-2021 13:29-0500 SaO2% (BldA) [Mass fraction] 97 % Prema Cortés [facility]; [facility] Work Phone: Comment on above: Room air 07-02-2021 13:29-0500 Systolic blood pressure 124 mm[Hg] Prema Cortés [facility]; [facility] Work Phone: Comment on above: Patient Position: Sitting; Cuff Location : Left Arm; Cuff Size: Standard 03-06-2021 08:49-0400 Body height 162.56 cm Prema Cortés [facility] Work Phone: 03-06-2021 08:49-0400 Body mass index (BMI) [Ratio] 28.9 kg/m2 Prema Cortés [facility]; [facility] Work Phone: 03-06-2021 08:49-0400 Body surface area Derived from formula 1.82 m2 Prema Cortés [facility]; [facility] Work Phone: 03-06-2021 08:49-0400 Body temperature 96.8 [degF] Prema Cortés [facility]; [facility] Work Phone: Comment on above: Method: Temporal 03-06-2021 08:49-0400 Body weight 76.37 kg Prema Cortés [facility] Work Phone: 03-06-2021 08:49-0400 Diastolic blood pressure 70 mm[Hg] Prema Milana [facility]; [facility] Work Phone: Comment on above: Patient Position: Sitting; Cuff Location : Left Arm; Cuff Size: Standard 03-06-2021 08:49-0400 Heart rate 62 /min Prema Cortés [facility]; [facility] Work Phone: Comment on above: Pattern: Regular 03-06-2021 08:49-0400 Respiratory rate 16 /min Prema Cortés [facility]; [facility] Work Phone: Comment on above: Pattern: Unlabored 03-06-2021 08:49-0400 SaO2% (BldA) [Mass fraction] 98 % Prmea Cortés [facility]; [facility] Work Phone: Comment on above: Room air 03-06-2021 08:49-0400 Systolic blood pressure 130 mm[Hg] Prema Cortés [facility]; [facility] Work Phone: Comment on above: Patient Position: Sitting; Cuff Location : Left Arm; Cuff Size: Standard 01-09-2021 09:53-0400 Body height 162.56 cm Pauline Beltran [facility] Work Phone: 01-09-2021 09:53-0400 Body mass index (BMI) [Ratio] 28.67 kg/m2 Pauline Beltran [facility] Work Phone: 01-09-2021 09:53-0400 Body surface area Derived from formula 1.81 m2 Pauline Beltran [facility] Work Phone: 01-09-2021 09:53-0400 Body temperature 97.3 [degF] Pauline Beltran [facility]; [facility] Work Phone: Comment on above: Method: Infrared 01-09-2021 09:53-0400 Body weight 75.75 kg Pauline Beltran [facility] Work Phone: 01-09-2021 09:53-0400 Diastolic blood pressure 82 mm[Hg] Pauline Beltran [facility]; [facility] Work Phone: Comment on above: Patient Position: Sitting; Cuff Location : Left Arm; Cuff Size: Standard 01-09-2021 09:53-0400 Heart rate 75 /min Pauline Beltran [facility] Work Phone: Comment on above: Pattern: Regular 01-09-2021 09:53-0400 Respiratory rate 18 /min Pauline Beltran [facility]; [facility] Work Phone: Comment on above: Pattern: Unlabored 01-09-2021 09:53-0400 SaO2% (BldA) [Mass fraction] 99 % Pauline Beltran [facility] Work Phone: Comment on above: Room air 01-09-2021 09:53-0400 Systolic blood pressure 118 mm[Hg] Pauline Beltran [facility] Work Phone: Comment on above: Patient Position: Sitting; Cuff Location : Left Arm; Cuff Size: Standard 10-31-2020 07:23-0400 Body height 162.56 cm [facility]; [facility] Work Phone: 10-31-2020 07:23-0400 Body mass index (BMI) [Ratio] 29.18 kg/m2 [facility]; [facility] Work Phone: 10-31-2020 07:23-0400 Body surface area Derived from formula 1.83 m2 [facility]; [facility] Work Phone: 10-31-2020 07:23-0400 Body temperature 97 [degF] [facility]; [facility] Work Phone: Comment on above: Method: Thermal Scan 10-31-2020 07:23-0400 Body weight 77.11 kg [facility]; [facility] Work Phone: 10-31-2020 07:23-0400 Diastolic blood pressure 68 mm[Hg] [facility]; [facility] Work Phone: Comment on above: Patient Position: Sitting; Cuff Location : Left Arm; Cuff Size: Standard 10-31-2020 07:23-0400 Heart rate 84 /min [facility] Work Phone: Comment on above: Pattern: Regular 10-31-2020 07:23-0400 Respiratory rate 16 /min [facility] Work Phone: Comment on above: Pattern: Unlabored 10-31-2020 07:23-0400 SaO2% (BldA) [Mass fraction] 96 % [facility]; [facility] Work Phone: Comment on above: Room air 10-31-2020 07:23-0400 Systolic blood pressure 124 mm[Hg] [facility]; [facility] Work Phone: Comment on above: Patient Position: Sitting; Cuff Location : Left Arm; Cuff Size: Standard 08-15-2020 07:37-0500 BMI (Body Mass Index) 30.55 kg/m2 Pauline Gravius [facility]; [facility] Work Phone: 08-15-2020 07:37-0500 Body weight 80.74 kg Pauline Grullonius [facility]; [facility] Work Phone: 08-15-2020 07:37-0500 BSA (Body Surface Area) 1.86 m2 Pauline Gravius [facility]; [facility] Work Phone: 08-15-2020 07:37-0500 Height 162.56 cm Pauline Gravius [facility]; [facility] Work Phone: 07-25-2020 08:00-0500 BMI (Body Mass Index) 30.55 kg/m2 Bisi Katherine DO Work Phone: [facility]; [facility] Work Phone: Comment on above: limited vitals due to virtual visit and covid 07-25-2020 08:00-0500 Body weight 80.74 kg Bisi Katherine DO Work Phone: [facility]; [facility] Work Phone: Comment on above: limited vitals due to virtual visit and covid 07-25-2020 08:00-0500 BP Diastolic 69 mm[Hg] Bisi Katherine DO Work Phone: [facility]; [facility] Work Phone: Comment on above: Patient Position: Sitting limited vitals due t o virtual visit and covid 07-25-2020 08:00-0500 BP Systolic 124 mm[Hg] Bisi Katherine DO Work Phone: [facility]; [facility] Work Phone: Comment on above: Patient Position: Sitting limited vitals due t o virtual visit and covid 07-25-2020 08:00-0500 BSA (Body Surface Area) 1.86 m2 Bisi Katherine DO Work Phone: [facility]; [facility] Work Phone: Comment on above: limited vitals due to virtual visit and covid 07-25-2020 08:00-0500 Height 162.56 cm Bisi Coffmanon DO Work Phone: [facility]; [facility] Work Phone: Comment on above: limited vitals due to virtual visit and covid 04-08-2020 08:24-0400 BMI (Body Mass Index) 30.55 kg/m2 Pauline Beltran [facility] Work Phone: 04-08-2020 08:24-0400 Body Temperature 97.1 [degF] Pauline Beltran [facility] Work Phone: Comment on above: Method: Infrared 04-08-2020 08:24-0400 Body weight 80.74 kg Pauline Beltran [facility] Work Phone: 04-08-2020 08:24-0400 BP Diastolic 82 mm[Hg] Pauline Beltran [facility] Work Phone: Comment on above: Patient Position: Sitting; Cuff Location : Left Arm; Cuff Size: Standard 04-08-2020 08:24-0400 BP Systolic 141 mm[Hg] Pauline Beltran [facility] Work Phone: Comment on above: Patient Position: Sitting; Cuff Location : Left Arm; Cuff Size: Standard 04-08-2020 08:24-0400 BSA (Body Surface Area) 1.86 m2 Pauline Beltran [facility] Work Phone: 04-08-2020 08:24-0400 Height 162.56 cm Pauline Beltran [facility] Work Phone: 04-08-2020 08:24-0400 Pulse (Heart Rate) 67 /min Pauline Beltran [facility] Work Phone: Comment on above: Pattern: Regular 04-08-2020 08:24-0400 Pulse Oximetry 97 % Bisi Martinez [facility] Work Phone: Comment on above: Room air 04-08-2020 08:24-0400 Respiratory Rate 18 /min Pauline Beltran [facility] Work Phone: Comment on above: Pattern: Unlabored 04-08-2020 08:24-0400 SaO2% (BldA) [Mass fraction] 97 % Pauline Beltran [facility]; [facility] Work Phone: Comment on above: Room air 03-28-2020 11:07-0400 BMI (Body Mass Index) 30.55 kg/m2 Pauline Beltran [facility] Work Phone: 03-28-2020 11:07-0400 Body Temperature 96.9 [degF] Pauline Beltran [facility] Work Phone: Comment on above: Method: Infrared 03-28-2020 11:07-0400 Body weight 80.74 kg Pauline Beltran [facility] Work Phone: 03-28-2020 11:07-0400 BP Diastolic 90 mm[Hg] Pauline Beltran [facility] Work Phone: Comment on above: Patient Position: Sitting; Cuff Location : Left Arm; Cuff Size: Standard 03-28-2020 11:07-0400 BP Systolic 152 mm[Hg] Pauline Beltran [facility] Work Phone: Comment on above: Patient Position: Sitting; Cuff Location : Left Arm; Cuff Size: Standard 03-28-2020 11:07-0400 BSA (Body Surface Area) 1.86 m2 Pauline Beltran [facility] Work Phone: 03-28-2020 11:07-0400 Height 162.56 cm Pauline Beltran [facility] Work Phone: 03-28-2020 11:07-0400 Pulse (Heart Rate) 64 /min Pauline Beltran [facility] Work Phone: Comment on above: Pattern: Regular 03-28-2020 11:07-0400 Pulse Oximetry 97 % Biis Martinez [facility] Work Phone: Comment on above: Room air 03-28-2020 11:07-0400 Respiratory Rate 16 /min Pauline Beltran [facility] Work Phone: Comment on above: Pattern: Unlabored 03-28-2020 11:07-0400 SaO2% (BldA) [Mass fraction] 97 % Pauline Beltran [facility]; [facility] Work Phone: Comment on above: Room air 03-22-2020 09:49-0400 BMI (Body Mass Index) 30.55 kg/m2 [facility] Work Phone: 03-22-2020 09:49-0400 Body Temperature 97 [degF] [facility] Work Phone: Comment on above: Method: Thermal Scan 03-22-2020 09:49-0400 Body weight 80.74 kg [facility] Work Phone: 03-22-2020 09:49-0400 BP Diastolic 70 mm[Hg] [facility] Work Phone: Comment on above: Patient Position: Sitting; Cuff Location : Left Arm; Cuff Size: Standard 03-22-2020 09:49-0400 BP Systolic 136 mm[Hg] Kaitlynn Rothman [facility] Work Phone: Comment on above: Patient Position: Sitting; Cuff Location : Left Arm; Cuff Size: Standard 03-22-2020 09:49-0400 BSA (Body Surface Area) 1.86 m2 [facility] Work Phone: 03-22-2020 09:49-0400 Height 162.56 cm [facility] Work Phone: 03-22-2020 09:49-0400 Pulse (Heart Rate) 77 /min [facility] Work Phone: Comment on above: Pattern: Regular 03-22-2020 09:49-0400 Pulse Oximetry 98 % Bisi Martinez [facility] Work Phone: Comment on above: Room air 03-22-2020 09:49-0400 Respiratory Rate 16 /min [facility] Work Phone: Comment on above: Pattern: Unlabored 03-22-2020 09:49-0400 SaO2% (BldA) [Mass fraction] 98 % [facility] Work Phone: Comment on above: Room air 11-23-2019 10:56-0400 BMI (Body Mass Index) 30.55 kg/m2 Franchesca Miranda RN [facility] Work Phone: Comment on above: Vital signs not obtained d/t call or vir tual visit 11-23-2019 10:56-0400 Body weight 80.74 kg Franchesca Miranda RN [facility] Work Phone: Comment on above: Vital signs not obtained d/t call or vir tual visit 11-23-2019 10:56-0400 BSA (Body Surface Area) 1.86 m2 Franchesca Miranda RN [facility] Work Phone: Comment on above: Vital signs not obtained d/t call or vir tual visit 11-23-2019 10:56-0400 Height 162.56 cm Franchesca Miranda RN [facility] Work Phone: Comment on above: Vital signs not obtained d/t call or vir tual visit 05-26-2018 09:13-0500 BMI (Body Mass Index) 30.55 kg/m2 Pauline Beltran [facility] Work Phone: 05-26-2018 09:13-0500 Body Temperature 97.2 [degF] Pauline Beltran [facility] Work Phone: 05-26-2018 09:13-0500 Body weight 80.74 kg Pauline Beltran [facility] Work Phone: 05-26-2018 09:13-0500 BP Diastolic 90 mm[Hg] Pauline Beltran [facility] Work Phone: Comment on above: Patient Position: Sitting; Cuff Location : Left Arm; Cuff Size: Standard 05-26-2018 09:13-0500 BP Systolic 141 mm[Hg] Pauline Beltran [facility] Work Phone: Comment on above: Patient Position: Sitting; Cuff Location : Left Arm; Cuff Size: Standard 05-26-2018 09:13-0500 BSA (Body Surface Area) 1.86 m2 Pauline Beltran [facility] Work Phone: 05-26-2018 09:13-0500 Height 162.56 cm Pauline Beltran [facility] Work Phone: 05-26-2018 09:13-0500 Pulse (Heart Rate) 88 /min Pauline Beltran [facility] Work Phone: Comment on above: Pattern: Regular 05-26-2018 09:13-0500 Pulse Oximetry 96 % Bisi Coffmanon [facility] Work Phone: Comment on above: Room air 05-26-2018 09:13-0500 Respiratory Rate 18 /min Pauline Beltran [facility] Work Phone: Comment on above: Pattern: Unlabored 05-26-2018 09:13-0500 SaO2% (BldA) [Mass fraction] 96 % Pauline Beltran [facility]; [facility] Work Phone: Comment on above: Room air 12-13-2018 09:13-0500 Weight 80.74 kg Bisi Martinez [facility] Work Phone: 09-01-2017 11:10-0400 BMI (Body Mass Index) 26.72 kg/m2 Franchesca Miranda RN [facility] Work Phone: 09-01-2017 11:10-0400 Body weight 84.48 kg Franchesca Miranda RN [facility] Work Phone: 09-01-2017 11:10-0400 BP Diastolic 78 mm[Hg] Franchesca Miranda RN [facility] Work Phone: Comment on above: Patient Position: Sitting; Cuff Location : Left Arm; Cuff Size: Large 09-01-2017 11:10-0400 BP Systolic 120 mm[Hg] Franchesca Miranda RN [facility] Work Phone: Comment on above: Patient Position: Sitting; Cuff Location : Left Arm; Cuff Size: Large 09-01-2017 11:10-0400 BSA (Body Surface Area) 2.03 m2 Franchesca Miranda RN [facility] Work Phone: 09-01-2017 11:10-0400 Height 177.8 cm Franchesca Miranda RN [facility] Work Phone: 09-01-2017 11:10-0400 Pulse (Heart Rate) 65 /min Franchesca Miranda RN [facility] Work Phone: Comment on above: Pattern: Regular 09-01-2017 11:10-0400 Pulse Oximetry 96 % Bisi Martinez [facility] Work Phone: Comment on above: Room air 09-01-2017 11:10-0400 Respiratory Rate 18 /min Franchesca Miranda RN [facility] Work Phone: Comment on above: Pattern: Unlabored 09-01-2017 11:10-0400 SaO2% (BldA) [Mass fraction] 96 % Franchesca Miranda RN [facility]; [facility] Work Phone: Comment on above: Room air 09-01-2017 11:10-0400 Weight 84.48 kg Bisi Martinez [facility] Work Phone: 05-13-2017 12:29-0500 BMI (Body Mass Index) 25.99 kg/m2 Franchesca Miranda RN [facility] Work Phone: 05-13-2017 12:29-0500 Body weight 82.16 kg Franchesca Miranda RN [facility] Work Phone: 05-13-2017 12:29-0500 BP Diastolic 70 mm[Hg] Franchesca Miranda RN [facility] Work Phone: Comment on above: Patient Position: Sitting; Cuff Location : Left Arm; Cuff Size: Large 05-13-2017 12:29-0500 BP Systolic 142 mm[Hg] Franchesca Miranda RN [facility] Work Phone: Comment on above: Patient Position: Sitting; Cuff Location : Left Arm; Cuff Size: Large 05-13-2017 12:29-0500 BSA (Body Surface Area) 2 m2 Franchesca Miranda RN [facility] Work Phone: 05-13-2017 12:29-0500 Height 177.8 cm Franchesca Miranda RN [facility] Work Phone: 05-13-2017 12:29-0500 Pulse (Heart Rate) 91 /min Franchesca Miranda RN [facility] Work Phone: Comment on above: Pattern: Regular 05-13-2017 12:29-0500 Pulse Oximetry 97 % Bisi Katherine [facility] Work Phone: Comment on above: Room air 05-13-2017 12:29-0500 Respiratory Rate 18 /min Franchesca Miranda RN [facility] Work Phone: Comment on above: Pattern: Unlabored 05-13-2017 12:29-0500 SaO2% (BldA) [Mass fraction] 97 % Franchesca Miranda RN [facility]; [facility] Work Phone: Comment on above: Room air 05-13-2017 12:29-0500 Weight 82.16 kg Bisi Coffmanon [facility] Work Phone: 03-25-2017 08:58-0400 BMI (Body Mass Index) 26.4 kg/m2 Franchesca Miranda RN [facility] Work Phone: Comment on above: DR. Pereira and had a glaucoma test done hearing [facility] 03-25-2017 08:58-0400 Body weight 83.46 kg Franchesca Miranda RN [facility] Work Phone: Comment on above: DR. Pereira and had a glaucoma test done hearing [facility] 03-25-2017 08:58-0400 BP Diastolic 80 mm[Hg] Franchesca Miranda RN [facility] Work Phone: Comment on above: Patient Position: Sitting; Cuff Location : Left Arm; Cuff Size: Large DR. Pereira and had a glaucoma test donehearing [facility] 03-25-2017 08:58-0400 BP Systolic 120 mm[Hg] Franchesca Miranda RN [facility] Work Phone: Comment on above: Patient Position: Sitting; Cuff Location : Left Arm; Cuff Size: Large DR. Pereira and had a glaucoma test donehearing [facility] 03-25-2017 08:58-0400 BSA (Body Surface Area) 2.01 m2 Franchesca Miranda RN [facility] Work Phone: Comment on above: DR. Pereira and had a glaucoma test done hearing [facility] 03-25-2017 08:58-0400 Height 177.8 cm Franchesca Miranda RN [facility] Work Phone: Comment on above: DR. Pereira and had a glaucoma test done hearing [facility] 03-25-2017 08:58-0400 Pulse (Heart Rate) 81 /min Franchesca Miranda RN [facility] Work Phone: Comment on above: Pattern: Regular DR. Pereira and had a glaucoma test donehearing [facility] 03-25-2017 08:58-0400 Pulse Oximetry 97 % Bisi Martinez [facility] Work Phone: Comment on above: Room air DR. Pereira and had a glaucoma test donehearing [facility] 03-25-2017 08:58-0400 Respiratory Rate 18 /min Franchesca Miranda RN [facility] Work Phone: Comment on above: Pattern: Unlabored DR. Pereira and had a glaucoma test donehearing [facility] 03-25-2017 08:58-0400 SaO2% (BldA) [Mass fraction] 97 % Franchesca Miranda RN [facility]; [facility] Work Phone: Comment on above: Room air DR. Pereira and had a glaucoma test donehearing [facility] 03-25-2017 08:58-0400 Weight 83.46 kg Bisi Martinez [facility] Work Phone: 03-18-2017 10:40-0400 BMI (Body Mass Index) 25.76 kg/m2 Franchesca Miranda RN [facility] Work Phone: 03-18-2017 10:40-0400 Body weight 81.42 kg Franchesca Miranda RN [facility] Work Phone: 03-18-2017 10:40-0400 BP Diastolic 82 mm[Hg] Franchesca Miranda RN [facility] Work Phone: Comment on above: Patient Position: Sitting; Cuff Location : Left Arm; Cuff Size: Large 03-18-2017 10:40-0400 BP Systolic 120 mm[Hg] Franchesca Miranda RN [facility] Work Phone: Comment on above: Patient Position: Sitting; Cuff Location : Left Arm; Cuff Size: Large 03-18-2017 10:40-0400 BSA (Body Surface Area) 1.99 m2 Franchesca Miranda RN [facility] Work Phone: 03-18-2017 10:40-0400 Height 177.8 cm Franchesca Miranda RN [facility] Work Phone: 03-18-2017 10:40-0400 Pulse (Heart Rate) 72 /min Franchesca Miranda RN [facility] Work Phone: Comment on above: Pattern: Regular 03-18-2017 10:40-0400 Pulse Oximetry 96 % Bisi Martinez [facility] Work Phone: Comment on above: Room air 03-18-2017 10:40-0400 Respiratory Rate 18 /min Franchesca Miranda RN [facility] Work Phone: Comment on above: Pattern: Unlabored 03-18-2017 10:40-0400 SaO2% (BldA) [Mass fraction] 96 % Franchesca Miranda RN [facility]; [facility] Work Phone: Comment on above: Room air 03-18-2017 10:40-0400 Weight 81.42 kg Bisi Martinez [facility] Work Phone: 12-28-2016 12:00-0400 Body mass index (BMI) [Ratio] 25.11 kg/m2 Kalie Burleson Work Phone: [facility] Work Phone: 12-28-2016 12:00-0400 Body weight 79.38 kg Kalie Burleson Work Phone: [facility] Work Phone: 12-28-2016 12:00-0400 Diastolic blood pressure 70 mm[Hg] Kalie Burleson Work Phone: [facility] Work Phone: 12-28-2016 12:00-0400 Heart rate 80 /min Kalie Burleson Work Phone: [facility] Work Phone: 12-28-2016 12:00-0400 Systolic blood pressure 104 mm[Hg] Kalie Burleson Work Phone: [facility] Work Phone: 11-24-2016 15:03-0400 BMI (Body Mass Index) 25.83 kg/m2 Chelsey Duckworth [facility] Work Phone: 11-24-2016 15:03-0400 Body weight 81.65 kg Chelsey Duckworth [facility] Work Phone: 11-24-2016 15:03-0400 BP Diastolic 78 mm[Hg] Chelsey Donita [facility] Work Phone: Comment on above: Patient Position: Sitting; Cuff Location : Left Arm; Cuff Size: Standard 11-24-2016 15:03-0400 BP Systolic 136 mm[Hg] Chelsey Duckworth [facility] Work Phone: Comment on above: Patient Position: Sitting; Cuff Location : Left Arm; Cuff Size: Standard 11-24-2016 15:03-0400 BSA (Body Surface Area) 2 m2 Chelsey Duckworth [facility] Work Phone: 11-24-2016 15:03-0400 Height 177.8 cm Chelsey Duckworth [facility] Work Phone: 11-24-2016 15:03-0400 Pulse (Heart Rate) 79 /min Chelsey Duckworth [facility] Work Phone: Comment on above: Pattern: Regular 11-24-2016 15:03-0400 Respiratory Rate 16 /min Chelsey Duckworth [facility] Work Phone: Comment on above: Pattern: Unlabored 11-24-2016 15:03-0400 Weight 81.65 kg Bisi Martinez [facility] Work Phone: 10-07-2016 10:16-0400 BMI (Body Mass Index) 26.4 kg/m2 Franchesca Miranda RN [facility] Work Phone: 10-07-2016 10:16-0400 Body weight 83.46 kg Franchesca Miranda RN [facility] Work Phone: 10-07-2016 10:16-0400 BP Diastolic 70 mm[Hg] Franchesca Miranda RN [facility] Work Phone: Comment on above: Patient Position: Sitting; Cuff Location : Left Arm; Cuff Size: Standard 10-07-2016 10:16-0400 BP Systolic 128 mm[Hg] Franchesca Miranda RN [facility] Work Phone: Comment on above: Patient Position: Sitting; Cuff Location : Left Arm; Cuff Size: Standard 10-07-2016 10:16-0400 BSA (Body Surface Area) 2.01 m2 Franchesca Miranda RN [facility] Work Phone: 10-07-2016 10:16-0400 Height 177.8 cm Franchesca Miranda RN [facility] Work Phone: 10-07-2016 10:16-0400 Pulse (Heart Rate) 73 /min Franchesca Miranda RN [facility] Work Phone: Comment on above: Pattern: Regular 10-07-2016 10:16-0400 Pulse Oximetry 93 % Bisi Martinez [facility] Work Phone: Comment on above: Room air 10-07-2016 10:16-0400 Respiratory Rate 18 /min Franchesca Miranda RN [facility] Work Phone: Comment on above: Pattern: Unlabored 10-07-2016 10:16-0400 SaO2% (BldA) [Mass fraction] 93 % Franchesca Miranda RN [facility]; [facility] Work Phone: Comment on above: Room air 10-07-2016 10:16-0400 Weight 83.46 kg Bisi Martinez [facility] Work Phone: 04-27-2016 12:45-0500 Body height 177.8 cm Twyla Tovar RN [facility] Work Phone: 04-27-2016 12:45-0500 Body mass index (BMI) [Ratio] 25.97 kg/m2 Twyla Tovar RN [facility] Work Phone: 04-27-2016 12:45-0500 Body surface area Derived from formula 2 m2 Twyla Tovar RN [facility] Work Phone: 04-27-2016 12:45-0500 Body weight 82.1 kg Twyla Tovar RN [facility] Work Phone: 04-27-2016 12:45-0500 Diastolic blood pressure 60 mm[Hg] Twyla Tovar RN [facility] Work Phone: 04-27-2016 12:45-0500 Heart rate 74 /min Twyla Tovar RN [facility] Work Phone: 04-27-2016 12:45-0500 Respiratory rate 18 /min Twyla [facility] Work Phone: 04-27-2016 12:45-0500 Systolic blood pressure 140 mm[Hg] Twyla Tovar RN [facility] Work Phone: 02-07-2016 09:17-0400 BMI (Body Mass Index) 24.82 kg/m2 Franchesca Miranda RN [facility] Work Phone: Comment on above[facility] 02-07-2016 09:17-0400 Body Temperature 97.8 [degF] Franchesca Miranda RN [facility] Work Phone: Comment on above: Method: [facility] 02-07-2016 09:17-0400 Body weight 78.47 kg Franchesca Miranda RN [facility] Work Phone: Comment on above[facility] 02-07-2016 09:17-0400 BP Diastolic 78 mm[Hg] Franchesca Miranda RN [facility] Work Phone: Comment on above: Patient Position: Sitting; Cuff Location : Left Arm; Cuff Size: Large [facility] 02-07-2016 09:17-0400 BP Systolic 122 mm[Hg] Franchesca Miranda RN [facility] Work Phone: Comment on above: Patient Position: Sitting; Cuff Location : Left Arm; Cuff Size: Large [facility] test [facility] 02-07-2016 09:17-0400 BSA (Body Surface Area) 1.96 m2 Franchesca Miranda RN [facility] Work Phone: Comment on above[facility] 02-07-2016 09:17-0400 Height 177.8 cm Franchesca Miranda RN [facility] Work Phone: Comment on above[facility] 02-07-2016 09:17-0400 Pulse (Heart Rate) 76 /min Franchesca Miranda RN [facility] Work Phone: Comment on above: Pattern: Regular [facility] test [facility] 02-07-2016 09:17-0400 Pulse Oximetry 95 % Bisi Martinez [facility] Work Phone: Comment on above: [facility] test [facility] 02-07-2016 09:17-0400 Respiratory Rate 18 /min Franchesca Miranda RN [facility] Work Phone: Comment on above: Pattern: Unlabored hearing [facility] and had glaucoma test done 02-07-2016 09:17-0400 SaO2% (BldA) [Mass fraction] 95 % Franchesca Miranda RN [facility]; [facility] Work Phone: Comment on above: Room air hearing [facility] and had glaucoma test done 02-07-2016 09:17-0400 Weight 78.47 kg Bisi Martinez [facility] Work Phone: 01-15-2016 14:32-0400 BMI (Body Mass Index) 24.88 kg/m2 Franchesca Miranda RN [facility] Work Phone: 01-15-2016 14:32-0400 Body weight 78.64 kg Franchesca Miranda RN [facility] Work Phone: 01-15-2016 14:32-0400 BP Diastolic 70 mm[Hg] Franchesca Miranda RN [facility] Work Phone: Comment on above: Patient Position: Sitting; Cuff Location : Left Arm; Cuff Size: Standard 01-15-2016 14:32-0400 BP Systolic 110 mm[Hg] Franchesca Miranda RN [facility] Work Phone: Comment on above: Patient Position: Sitting; Cuff Location : Left Arm; Cuff Size: Standard 01-15-2016 14:32-0400 BSA (Body Surface Area) 1.96 m2 Franchesca Miranda RN [facility] Work Phone: 01-15-2016 14:32-0400 Height 177.8 cm Franchesca Miranda RN [facility] Work Phone: 01-15-2016 14:32-0400 Pulse (Heart Rate) 79 /min Franchesca Miranda RN [facility] Work Phone: Comment on above: Pattern: Regular 01-15-2016 14:32-0400 Pulse Oximetry 96 % Bisi Martinez [facility] Work Phone: Comment on above: Room air 01-15-2016 14:32-0400 Respiratory Rate 18 /min Franchesca Miranda RN [facility] Work Phone: Comment on above: Pattern: Unlabored 01-15-2016 14:32-0400 SaO2% (BldA) [Mass fraction] 96 % Franchesca Miranda RN [facility]; [facility] Work Phone: Comment on above: Room air 01-15-2016 14:32-0400 Weight 78.64 kg Bisi Martinez [facility] Work Phone: 12-30-2015 11:45-0400 BMI (Body Mass Index) 25.11 kg/m2 Franchesca Miranda RN [facility] Work Phone: 12-30-2015 11:45-0400 Body weight 79.38 kg Franchesca Miranda RN [facility] Work Phone: 12-30-2015 11:45-0400 BP Diastolic 80 mm[Hg] Franchesca Miranda RN [facility] Work Phone: Comment on above: Patient Position: Sitting; Cuff Location : Left Arm; Cuff Size: Large 12-30-2015 11:45-0400 BP Systolic 138 mm[Hg] Franchesca Miranda RN [facility] Work Phone: Comment on above: Patient Position: Sitting; Cuff Location : Left Arm; Cuff Size: Large 12-30-2015 11:45-0400 BSA (Body Surface Area) 1.97 m2 Franchesca Miranda RN [facility] Work Phone: 12-30-2015 11:45-0400 Height 177.8 cm Franchesca Miranda RN [facility] Work Phone: 12-30-2015 11:45-0400 Pulse (Heart Rate) 82 /min Franchesca Miranda RN [facility] Work Phone: Comment on above: Pattern: Regular 12-30-2015 11:45-0400 Pulse Oximetry 95 % Bisi Martinez [facility] Work Phone: Comment on above: Room air 12-30-2015 11:45-0400 Respiratory Rate 18 /min Franchesca Miranda RN [facility] Work Phone: Comment on above: Pattern: Unlabored 12-30-2015 11:45-0400 SaO2% (BldA) [Mass fraction] 95 % Franchesca Miranda RN [facility]; [facility] Work Phone: Comment on above: Room air 12-30-2015 11:45-0400 Weight 79.38 kg Bisi Martinez [facility] Work Phone: 02-14-2015 07:41-0400 BMI (Body Mass Index) 24.68 kg/m2 Bisi Martinez [facility] Work Phone: 02-14-2015 07:41-0400 Body Temperature 97.8 [degF] Bisi Martinez [facility] Work Phone: Comment on above: Method: Temporal 02-14-2015 07:41-0400 Body weight 78.02 kg Bisi Martinez [facility] Work Phone: 02-14-2015 07:41-0400 BP Diastolic 76 mm[Hg] Bisi Martinez [facility] Work Phone: Comment on above: Patient Position: Sitting; Cuff Location : Left Arm; Cuff Size: Standard 02-14-2015 07:41-0400 BP Systolic 128 mm[Hg] Bisi Martinez [facility] Work Phone: Comment on above: Patient Position: Sitting; Cuff Location : Left Arm; Cuff Size: Standard 02-14-2015 07:41-0400 BSA (Body Surface Area) 1.96 m2 Bisi Martinez [facility] Work Phone: 02-14-2015 07:41-0400 Height 177.8 cm Bisi Martinez [facility] Work Phone: 02-14-2015 07:41-0400 Pulse (Heart Rate) 74 /min Bisi Martinez [facility] Work Phone: Comment on above: Pattern: Regular 02-14-2015 07:41-0400 Pulse Oximetry 97 % Bisi Martinez [facility] Work Phone: Comment on above: Room air 02-14-2015 07:41-0400 Respiratory Rate 16 /min Bisi Martinez [facility] Work Phone: Comment on above: Pattern: Unlabored 02-14-2015 07:41-0400 SaO2% (BldA) [Mass fraction] 97 % Bisi Martinez DO Work Phone: [facility]; [facility] Work Phone: Comment on above: Room air 02-14-2015 07:41-0400 Weight 78.02 kg Bisi Martinez [facility] Work Phone: 01-28-2015 09:37-0400 BMI (Body Mass Index) 24.97 kg/m2 Franchesca Miranda RN [facility] Work Phone: Comment on above: Dr. Pereira had a glaucoma testhearing w 01-28-2015 09:37-0400 Body weight 78.93 kg Franchesca Miranda RN [facility] Work Phone: Comment on above: Dr. Pereira had a glaucoma testhearing w 01-28-2015 09:37-0400 BP Diastolic 80 mm[Hg] Franchesca Miranda RN [facility] Work Phone: Comment on above: Patient Position: Sitting; Cuff Location : Left Arm; Cuff Size: Large Dr. Pereira had a gl [facility] 01-28-2015 09:37-0400 BP Systolic 120 mm[Hg] Franchesca Miranda RN [facility] Work Phone: Comment on above: Patient Position: Sitting; Cuff Location : Left Arm; Cuff Size: Large Dr. Pereira had a gl [facility]coma testhearing [facility] 01-28-2015 09:37-0400 BSA (Body Surface Area) 1.97 m2 Franchesca Miranda RN [facility] Work Phone: Comment on above: Dr. Pereira had a glaucoma testhearing w 01-28-2015 09:37-0400 Height 177.8 cm Franchesca Miranda RN [facility] Work Phone: Comment on above: Dr. Pereira had a glaucoma testhearing w 01-28-2015 09:37-0400 Pulse (Heart Rate) 74 /min Franchesca Miranda RN [facility] Work Phone: Comment on above: Pattern: Regular Dr. Pereira had a gl [facility] 01-28-2015 09:37-0400 Pulse Oximetry 97 % Bisi Martinez [facility] Work Phone: Comment on above: Room air Dr. Pereira had a gl [facility]coma testhearing [facility] 01-28-2015 09:37-0400 Respiratory Rate 18 /min Franchesca Miranda RN [facility] Work Phone: Comment on above: Pattern: Unlabored Dr. Pereira had a gl [facility] 01-28-2015 09:37-0400 SaO2% (BldA) [Mass fraction] 97 % Franchesca Miranda RN [facility]; [facility] Work Phone: Comment on above: Room air Dr. Pereira had a gl [facility] 01-28-2015 09:37-0400 Weight 78.93 kg Bisi Martinez [facility] Work Phone: 10-12-2014 07:53-0400 BMI (Body Mass Index) 26.01 kg/m2 Franchesca Miranda RN [facility] Work Phone: 10-12-2014 07:53-0400 Body weight 82.22 kg Franchesca Miranda RN [facility] Work Phone: 10-12-2014 07:53-0400 BP Diastolic 82 mm[Hg] Franchesca Miranda RN [facility] Work Phone: Comment on above: Patient Position: Sitting; Cuff Location : Left Arm; Cuff Size: Large 10-12-2014 07:53-0400 BP Systolic 120 mm[Hg] Franchesca Miranda RN [facility] Work Phone: Comment on above: Patient Position: Sitting; Cuff Location : Left Arm; Cuff Size: Large 10-12-2014 07:53-0400 BSA (Body Surface Area) 2 m2 Franchesca Miranda RN [facility] Work Phone: 10-12-2014 07:53-0400 Height 177.8 cm Franchesca Miranda RN [facility] Work Phone: 10-12-2014 07:53-0400 Pulse (Heart Rate) 73 /min Franchesca Miranda RN [facility] Work Phone: Comment on above: Pattern: Regular 10-12-2014 07:53-0400 Pulse Oximetry 96 % Bisi Martinez [facility] Work Phone: Comment on above: Room air 10-12-2014 07:53-0400 Respiratory Rate 18 /min Franchesca Miranda RN [facility] Work Phone: Comment on above: Pattern: Unlabored 10-12-2014 07:53-0400 SaO2% (BldA) [Mass fraction] 96 % Franchesca Miranda RN [facility]; [facility] Work Phone: Comment on above: Room air 10-12-2014 07:53-0400 Weight 82.22 kg Bisi Martinez [facility] Work Phone: 05-23-2012 08:52-0500 BMI (Body Mass Index) 26 kg/m2 Franchesca Miranda RN [facility] Work Phone: Comment on above: vision with correction ou=20/25 od=20/30 os=20/40hearing wn 05-23-2012 08:52-0500 Body Temperature 98 [degF] Franchesca Miranda RN [facility] Work Phone: Comment on above: Method: Oral vision with correcti on ou=20/25 od=20/30 os=20/40hearing wn 05-23-2012 08:52-0500 Body weight 82.19 kg Franchesca Miranda RN [facility] Work Phone: Comment on above: vision with correction ou=20/25 od=20/30 os=20/40hearing wn 05-23-2012 08:52-0500 BP Diastolic 78 mm[Hg] Franchesca Miranda RN [facility] Work Phone: Comment on above: Patient Position: Sitting; Cuff Location : Left Arm; Cuff Size: Large vision with correcti on ou=20/25 od=20/30 os=20/40hearing wn 05-23-2012 08:52-0500 BP Systolic 132 mm[Hg] Franchesca Miranda RN [facility] Work Phone: Comment on above: Patient Position: Sitting; Cuff Location : Left Arm; Cuff Size: Large vision with correcti on ou=20/25 od=20/30 os=20/40hearing [facility] 05-23-2012 08:52-0500 BSA (Body Surface Area) 2 m2 Franchesca Miranda RN [facility] Work Phone: Comment on above: vision with correction ou=20/25 od=20/30 os=20/40hearing [facility] 05-23-2012 08:52-0500 Height 177.8 cm Franchesca Miranda RN [facility] Work Phone: Comment on above: vision with correction ou=20/25 od=20/30 os=20/40hearing [facility] 05-23-2012 08:52-0500 Pulse (Heart Rate) 100 /min Franchesca Miranda RN [facility] Work Phone: Comment on above: Pattern: Regular vision with correcti on ou=20/25 od=20/30 os=20/40hearing [facility] 05-23-2012 08:52-0500 Respiratory Rate 20 /min Franchesca Miranda RN [facility] Work Phone: Comment on above: Pattern: Unlabored vision with correcti on ou=20/25 od=20/30 os=20/40hearing [facility] 05-23-2012 08:52-0500 Weight 82.19 kg Bisi Martinez [facility] Work Phone: 11-23-2011 10:0400 BMI (Body Mass Index) 25.11 kg/m2 Bisilin Martinez [facility] Work Phone: 11-23-2011 10:0400 Body Temperature 98.2 [degF] Bisi Martinez [facility] Work Phone: Comment on above: Method: Oral 11-23-2011 10:190400 Body weight 79.38 kg Bisi Martinez [facility] Work Phone: 11-23-2011 10:19-0400 BP Diastolic 80 mm[Hg] Bisi Martinez [facility] Work Phone: Comment on above: Patient Position: Sitting; Cuff Location : Left Arm; Cuff Size: Standard 11-23-2011 10:19-0400 BP Systolic 132 mm[Hg] Bisi Martinez [facility] Work Phone: Comment on above: Patient Position: Sitting; Cuff Location : Left Arm; Cuff Size: Standard 11-23-2011 10:190400 BSA (Body Surface Area) 1.97 m2 Bisi Martinez [facility] Work Phone: 11-23-2011 10:040 Height 177.8 cm Bisi Martinez [facility] Work Phone: 11-23-2011 10:19-0400 Pulse (Heart Rate) 82 /min Bisi Martinez [facility] Work Phone: Comment on above: Pattern: Regular 11-23-2011 10:0400 Pulse Oximetry 98 % Bisi Martinez [facility] Work Phone: Comment on above: Room air 11-23-2011 10:0400 Respiratory Rate 17 /min Bisi Martinez [facility] Work Phone: 11-23-2011 10:190400 SaO2% (BldA) [Mass fraction] 98 % Bisi Martinez DO Work Phone: [facility]; [facility] Work Phone: Comment on above: Room air 11-23-2011 10:19-0400 Weight 79.38 kg Bisi Martinez [facility] Work Phone: 11-10-2011 09:59-0400 BMI (Body Mass Index) 25.11 kg/m2 Bisi Martinez [facility] Work Phone: 11-10-2011 09:59-0400 Body Temperature 98.8 [degF] Bisi Martinez [facility] Work Phone: Comment on above: Method: Oral 11-10-2011 09:59-0400 Body weight 79.38 kg Bisi Martinez [facility] Work Phone: 11-10-2011 09:59-0400 BP Diastolic 84 mm[Hg] Bisi Martinez [facility] Work Phone: Comment on above: Patient Position: Sitting; Cuff Location : Left Arm; Cuff Size: Standard 11-10-2011 09:59-0400 BP Systolic 136 mm[Hg] Bisi Martinez [facility] Work Phone: Comment on above: Patient Position: Sitting; Cuff Location : Left Arm; Cuff Size: Standard 11-10-2011 09:59-0400 BSA (Body Surface Area) 1.97 m2 Bisi Martinez [facility] Work Phone: 11-10-2011 09:59-0400 Height 177.8 cm Bisi Martinez [facility] Work Phone: 11-10-2011 09:59-0400 Pulse (Heart Rate) 82 /min Bisi Martinez [facility] Work Phone: Comment on above: Pattern: Regular 11-10-2011 09:59-0400 Respiratory Rate 17 /min Bisi Martinez [facility] Work Phone: 11-10-2011 09:59-0400 Weight 79.38 kg Bisi Martinez [facility] Work Phone: 10-30-2011 09:27-0400 BMI (Body Mass Index) 25.11 kg/m2 Pam Ventura RN [facility] Work Phone: 10-30-2011 09:27-0400 Body Temperature 97.6 [degF] Pam Ventura RN [facility] Work Phone: Comment on above: Method: Oral 10-30-2011 09:27-0400 Body weight 79.38 kg Pam Ventura RN [facility] Work Phone: 10-30-2011 09:27-0400 BP Diastolic 82 mm[Hg] Pam Ventura RN [facility] Work Phone: Comment on above: Patient Position: Sitting; Cuff Location : Left Arm; Cuff Size: Large 10-30-2011 09:27-0400 BP Systolic 120 mm[Hg] Pam Ventura RN [facility] Work Phone: Comment on above: Patient Position: Sitting; Cuff Location : Left Arm; Cuff Size: Large 10-30-2011 09:27-0400 BSA (Body Surface Area) 1.97 m2 Pam Ventura RN [facility] Work Phone: 10-30-2011 09:27-0400 Height 177.8 cm Pam Ventura RN [facility] Work Phone: 10-30-2011 09:27-0400 Pulse (Heart Rate) 80 /min Pam Ventura RN [facility] Work Phone: Comment on above: Pattern: Regular 10-30-2011 09:27-0400 Respiratory Rate 16 /min Pam Ventura RN [facility] Internal Medicine Work Phone: Comment on above: Pattern: Unlabored 10-30-2011 09:27-0400 Weight 79.38 kg Bisi Martinez [facility] Work Phone: 10-26-2011 13:35-0400 BMI (Body Mass Index) 24.97 kg/m2 Bisidana Martinez [facility] Internal Medicine Work Phone: 10-26-2011 13:35-0400 Body Temperature 98.8 [degF] Bisi Katherine [facility] Work Phone: Comment on above: Method: Oral 10-26-2011 13:35-0400 Body weight 78.93 kg Bisi Martinez [facility] Work Phone: 10-26-2011 13:35-0400 BP Diastolic 90 mm[Hg] Bisi Martinez [facility] Work Phone: Comment on above: Patient Position: Sitting; Cuff Location : Left Arm; Cuff Size: Standard 10-26-2011 13:35-0400 BP Systolic 144 mm[Hg] Bisi Martinez [facility] Work Phone: Comment on above: Patient Position: Sitting; Cuff Location : Left Arm; Cuff Size: Standard 10-26-2011 13:35-0400 BSA (Body Surface Area) 1.97 m2 Bisi Martinez [facility] Work Phone: 10-26-2011 13:35-0400 Height 177.8 cm Bisi Martinez [facility] Work Phone: 10-26-2011 13:35-0400 Pulse (Heart Rate) 112 /min Bisi Martinez [facility] Work Phone: Comment on above: Pattern: Regular 10-26-2011 13:35-0400 Respiratory Rate 19 /min Bisi Martinez [facility] Work Phone: Comment on above: Pattern: Unlabored 10-26-2011 13:35-0400 Weight 78.93 kg Bisi Martinez [facility] Work Phone: 09-16-2009 16:40-0400 BMI (Body Mass Index) 24.97 kg/m2 Franchesca Miranda RN [facility] Work Phone: 09-16-2009 16:40-0400 Body weight 78.93 kg Franchesca Miranda RN [facility] Work Phone: 09-16-2009 16:40-0400 BP Diastolic 76 mm[Hg] Franchesca Miranda RN [facility] Work Phone: Comment on above: Patient Position: Sitting; Cuff Location : Left Arm; Cuff Size: Large 09-16-2009 16:40-0400 BP Systolic 118 mm[Hg] Franchesca Miranda RN [facility] Work Phone: Comment on above: Patient Position: Sitting; Cuff Location : Left Arm; Cuff Size: Large 09-16-2009 16:40-0400 BSA (Body Surface Area) 1.97 m2 Franchesca Miranda RN [facility] Work Phone: 09-16-2009 16:40-0400 Height 177.8 cm Franchesca Miranda RN [facility] Work Phone: 09-16-2009 16:40-0400 Pulse (Heart Rate) 80 /min Franchesca Miranda RN [facility] Work Phone: Comment on above: Pattern: Regular 09-16-2009 16:40-0400 Respiratory Rate 20 /min Franchesca Miranda RN [facility] Work Phone: Comment on above: Pattern: Unlabored 09-16-2009 16:40-0400 Weight 78.93 kg Bisi Martinez [facility] Work Phone: 02-07-2009 08:25-0400 BMI (Body Mass Index) 24.97 kg/m2 Mehnaz Garay [facility] Internal Medicine Work Phone: 02-07-2009 08:25-0400 Body Temperature 98.5 [degF] Mehnaz [facility] Internal Medicine Work Phone: Comment on above: Method: Oral 02-07-2009 08:25-0400 Body weight 78.93 kg Mehnaz [facility] Internal Medicine Work Phone: 02-07-2009 08:25-0400 BP Diastolic 72 mm[Hg] [facility] Internal Medicine Work Phone: Comment on above: Patient Position: Supine; Cuff Location: Left Arm; Cuff Size: Standard 02-07-2009 08:25-0400 BP Systolic 128 mm[Hg] Mhenaz [facility] Internal Medicine Work Phone: Comment on above: Patient Position: Supine; Cuff Location: Left Arm; Cuff Size: Standard 02-07-2009 08:25-0400 BSA (Body Surface Area) 1.97 m2 [facility] 02-07-2009 08:25-0400 Head Circumference 0 cm Bisi Martinez [facility] Work Phone: 02-07-2009 08:25-0400 Head Occipital-frontal circumference 0 cm Mehnaz [facility]; [facility] Work Phone: 02-07-2009 08:25-0400 Height 177.8 cm [facility] Medicine Work Phone: 02-07-2009 08:25-0400 Pulse (Heart Rate) 80 /min [facility] Work Phone: Comment on above: Pattern: Regular 02-07-2009 08:25-0400 Respiratory Rate 16 /min [facility] Work Phone: Comment on above: Pattern: Unlabored 02-07-2009 08:25-0400 Weight 78.93 kg Bisi Martinez [facility] Work Phone: 01-03-2009 11:14-0400 BMI (Body Mass Index) 25.14 kg/m2 Franchesca Miranda RN [facility] Work Phone: 01-03-2009 11:14-0400 Body weight 79.47 kg Franchesca Miranda RN [facility] Work Phone: 01-03-2009 11:14-0400 BP Diastolic 90 mm[Hg] Franchesca Miranda RN [facility] Work Phone: Comment on above: Patient Position: Sitting; Cuff Location : Left Arm; Cuff Size: Standard 01-03-2009 11:14-0400 BP Systolic 128 mm[Hg] Franchesca Miranda RN [facility] Work Phone: Comment on above: Patient Position: Sitting; Cuff Location : Left Arm; Cuff Size: Standard 01-03-2009 11:14-0400 BSA (Body Surface Area) 1.97 m2 Franchesca Miranda RN [facility] Work Phone: 01-03-2009 11:14-0400 Head Circumference 0 cm Bisi Martinez [facility] Work Phone: 01-03-2009 11:14-0400 Head Occipital-frontal circumference 0 cm Franchesca Miranda RN [facility]; [facility] Work Phone: 01-03-2009 11:14-0400 Height 177.8 cm Franchesca Miranda RN [facility] Work Phone: 01-03-2009 11:14-0400 Pulse (Heart Rate) 84 /min Franchesca Miranda RN [facility] Work Phone: Comment on above: Pattern: Regular 01-03-2009 11:14-0400 Respiratory Rate 18 /min Franchesca Miranda RN [facility] Work Phone: Comment on above: Pattern: Unlabored 01-03-2009 11:14-0400 Weight 79.47 kg Bisi Martinez [facility] Work Phone: 10-22-2008 13:14-0400 BMI (Body Mass Index) 25.14 kg/m2 Franchesca Miranda RN [facility] Work Phone: 10-22-2008 13:14-0400 Body weight 79.47 kg Franchesca Miranda RN [facility] Work Phone: 10-22-2008 13:14-0400 BP Diastolic 78 mm[Hg] Franchesca Miranda RN [facility] Work Phone: Comment on above: Patient Position: Sitting; Cuff Location : Left Arm; Cuff Size: Large 10-22-2008 13:14-0400 BP Systolic 128 mm[Hg] Franchesca Miranda RN [facility] Work Phone: Comment on above: Patient Position: Sitting; Cuff Location : Left Arm; Cuff Size: Large 10-22-2008 13:14-0400 BSA (Body Surface Area) 1.97 m2 Franchesca Miranda RN [facility] Work Phone: 10-22-2008 13:14-0400 Head Circumference 0 cm Bisi Martinez [facility] Work Phone: 10-22-2008 13:14-0400 Head Occipital-frontal circumference 0 cm Franchesca Miranda RN [facility]; [facility] Work Phone: 10-22-2008 13:14-0400 Height 177.8 cm Franchesca Miranda RN [facility] Work Phone: 10-22-2008 13:14-0400 Pulse (Heart Rate) 88 /min Franchesca Miranda RN [facility] Work Phone: Comment on above: Pattern: Regular 10-22-2008 13:14-0400 Respiratory Rate 20 /min Franchesca Miranda RN [facility] Work Phone: Comment on above: Pattern: Unlabored 10-22-2008 13:14-0400 Weight 79.47 kg Bisi Martinez [facility] Work Phone: 06-04-2008 11:56-0500 BMI (Body Mass Index) 24.85 kg/m2 Franchesca Miranda RN [facility] Work Phone: 06-04-2008 11:56-0500 Body weight 78.56 kg Franchesca Miranda RN [facility] Work Phone: 06-04-2008 11:56-0500 BP Diastolic 90 mm[Hg] Franchesca Miranda RN [facility] Work Phone: Comment on above: Patient Position: Sitting; Cuff Location : Left Arm; Cuff Size: Standard 06-04-2008 11:56-0500 BP Systolic 142 mm[Hg] Franchesca Miranda RN [facility] Work Phone: Comment on above: Patient Position: Sitting; Cuff Location : Left Arm; Cuff Size: Standard 06-04-2008 11:56-0500 BSA (Body Surface Area) 1.96 m2 Franchesca Miranda RN [facility] Work Phone: 06-04-2008 11:56-0500 Head Circumference 0 cm Bisi Martinez [facility] Work Phone: 06-04-2008 11:56-0500 Head Occipital-frontal circumference 0 cm Franchesca Miranda RN [facility]; [facility] Work Phone: 06-04-2008 11:56-0500 Height 177.8 cm Franchesca Miranda RN [facility] Work Phone: 06-04-2008 11:56-0500 Pulse (Heart Rate) 60 /min Franchesca Miranda RN [facility] Work Phone: Comment on above: Pattern: Regular 06-04-2008 11:56-0500 Respiratory Rate 16 /min Franchesca Miranda RN [facility] Work Phone: Comment on above: Pattern: Unlabored 06-04-2008 11:56-0500 Weight 78.56 kg Bisi Martinez [facility] Work Phone: 05-16-2008 12:46-0500 BMI (Body Mass Index) 24.85 kg/m2 Franchesca Miranda RN [facility] Work Phone: 05-16-2008 12:46-0500 Body weight 78.56 kg Franchesca Miranda RN [facility] Work Phone: 05-16-2008 12:46-0500 BP Diastolic 78 mm[Hg] Franchesca Miranda RN [facility] Work Phone: Comment on above: Patient Position: Sitting; Cuff Location : Left Arm; Cuff Size: Standard 05-16-2008 12:46-0500 BP Systolic 124 mm[Hg] Franchesca Miranda RN [facility] Work Phone: Comment on above: Patient Position: Sitting; Cuff Location : Left Arm; Cuff Size: Standard 05-16-2008 12:46-0500 BSA (Body Surface Area) 1.96 m2 Franchesca Miranda RN [facility] Work Phone: 05-16-2008 12:46-0500 Head Circumference 0 cm Bisi Martinez [facility] Work Phone: 05-16-2008 12:46-0500 Head Occipital-frontal circumference 0 cm Franchesca Miranda RN [facility]; [facility] Work Phone: 05-16-2008 12:46-0500 Height 177.8 cm Franchesca Miranda RN [facility] Work Phone: 05-16-2008 12:46-0500 Pulse (Heart Rate) 88 /min Franchesca Miranda RN [facility] Work Phone: Comment on above: Pattern: Regular 05-16-2008 12:46-0500 Respiratory Rate 20 /min Franchesca Miranda RN [facility] Work Phone: Comment on above: Pattern: Unlabored 05-16-2008 12:46-0500 [facility] 78[facility]56 [facility]: 11-23-2007 15:07-0400 Body weight 0 kg [facility] Work Phone: 11-23-2007 15:07-0400 BP Diastolic 72 mm[Hg] [facility] Work Phone: Comment on above: Patient Position: Sitting; Cuff Location : Right Arm; Cuff Size: Large 11-23-2007 15:07-0400 BP Systolic 126 mm[Hg] [facility] Work Phone: Comment on above: Patient Position: Sitting; Cuff Location : Right Arm; Cuff Size: Large 11-23-2007 15:07-0400 Head Circumference 0 cm Bisi [facility] Work Phone: 11-23-2007 15:07-0400 Head Occipital-frontal circumference 0 cm [facility]; [facility] Work Phone: 11-23-2007 15:07-0400 Height 0 cm Cande [facility] Internal Medicine Work Phone: 11-23-2007 15:07-0400 Pulse (Heart Rate) 76 /min Cande [facility] Internal Medicine Work Phone: Comment on above: Pattern: Regular 11-23-2007 15:07-0400 Respiratory Rate 16 /min [facility] Work Phone: Comment on above: Pattern: Unlabored 11-23-2007 15:07-0400 Weight 0 kg Bisi [facility] Work Phone: 11-14-2007 12:46-0400 BMI (Body Mass Index) 25.57 kg/m2 [facility] Internal Medicine Work Phone: 11-14-2007 12:46-0400 Body Temperature 97.8 [degF] [facility] Medicine Work Phone: Comment on above: Method: Oral 11-14-2007 12:46-0400 Body weight 80.83 kg [facility] Work Phone: 11-14-2007 12:46-0400 BP Diastolic 66 mm[Hg] [facility] Work Phone: Comment on above: Patient Position: Sitting; Cuff Location : Left Arm; Cuff Size: Standard 11-14-2007 12:46-0400 BP Systolic 120 mm[Hg] [facility] Work Phone: Comment on above: Patient Position: Sitting; Cuff Location : Left Arm; Cuff Size: Standard 11-14-2007 12:46-0400 BSA (Body Surface Area) 1.99 m2 [facility] Work Phone: 11-14-2007 12:46-0400 Head Circumference 0 cm Bisi [facility] Work Phone: 11-14-2007 12:46-0400 Head Occipital-frontal circumference 0 cm [facility]; [facility] Work Phone: 11-14-2007 12:46-0400 Height 177.8 cm [facility] Work Phone: 11-14-2007 12:46-0400 Pulse (Heart Rate) 60 /min [facility] Work Phone: Comment on above: Pattern: Regular 11-14-2007 12:46-0400 Respiratory Rate 18 /min [facility] Work Phone: Comment on above: Pattern: Unlabored 11-14-2007 12:46-0400 Weight 80.83 kg Bisi Martinez [facility] Work Phone: 05-16-2007 12:54-0500 Body Temperature 97.5 [degF] Pam Ventura RN [facility] Work Phone: Comment on above: Method: Oral 05-16-2007 12:54-0500 Body weight 79.38 kg Pam Ventura RN [facility] Work Phone: 05-16-2007 12:54-0500 BP Diastolic 64 mm[Hg] Pam Ventura RN [facility] Work Phone: Comment on above: Patient Position: Sitting; Cuff Location : Left Arm; Cuff Size: Standard 05-16-2007 12:54-0500 BP Systolic 100 mm[Hg] Pam Ventura RN [facility] Work Phone: Comment on above: Patient Position: Sitting; Cuff Location : Left Arm; Cuff Size: Standard 05-16-2007 12:54-0500 Head Circumference 0 cm Bisi Coffmanon [facility] Work Phone: 05-16-2007 12:54-0500 Head Occipital-frontal circumference 0 cm Pam Ventura RN [facility]; [facility] Work Phone: 05-16-2007 12:54-0500 Height 0 cm Pam Ventura RN [facility] Work Phone: 05-16-2007 12:54-0500 Pulse (Heart Rate) 72 /min Pam Mast RN [facility] Work Phone: Comment on above: Pattern: Regular 05-16-2007 12:54-0500 Respiratory Rate 16 /min Pam Ventura RN [facility] Work Phone: Comment on above: Pattern: Unlabored 05-16-2007 12:54-0500 Weight 79.38 kg Bisi Martinez [facility] Work Phone: 04-28-2007 13:15-0500 BMI (Body Mass Index) 25.17 kg/m2 [facility] Internal Medicine Work Phone: 04-28-2007 13:15-0500 Body Temperature 97.5 [degF] [facility] Work Phone: Comment on above: Method: Oral 04-28-2007 13:15-0500 Body weight 79.58 kg [facility] Work Phone: 04-28-2007 13:15-0500 BP Diastolic 90 mm[Hg] [facility] Work Phone: Comment on above: Patient Position: Sitting; Cuff Location : Left Arm; Cuff Size: Standard 04-28-2007 13:15-0500 BP Systolic 166 mm[Hg] [facility] Work Phone: Comment on above: Patient Position: Sitting; Cuff Location : Left Arm; Cuff Size: Standard 04-28-2007 13:15-0500 BSA (Body Surface Area) 1.97 m2 [facility] Work Phone: 04-28-2007 13:15-0500 Head Circumference 0 cm Bisi Martinez [facility] Work Phone: 04-28-2007 13:15-0500 Head Occipital-frontal circumference 0 cm [facility]; [facility] Work Phone: 04-28-2007 13:15-0500 Height 177.8 cm [facility] Work Phone: 04-28-2007 13:15-0500 Pulse (Heart Rate) 76 /min [facility] Work Phone: Comment on above: Pattern: Regular 04-28-2007 13:15-0500 Respiratory Rate 18 /min Lori Amos [facility] Work Phone: Comment on above: Pattern: Unlabored 04-28-2007 13:15-0500 Weight 79.58 kg Bisi Martinez [facility] Work Phone: 04-07-2007 13:50-0400 Body weight 0 kg Noris Alstona [employer] Work Phone: [facility] Work Phone: 04-07-2007 13:50-0400 BP Diastolic 82 mm[Hg] Noris Alstona [employer] Work Phone: [facility] Work Phone: Comment on above: Patient Position: Undefined; Cuff Locati on: Undefined; Cuff Size: Undefined 04-07-2007 13:50-0400 BP Systolic 130 mm[Hg] Noris Alstona [employer] Work Phone: [facility] Work Phone: Comment on above: Patient Position: Undefined; Cuff Locati on: Undefined; Cuff Size: Undefined 04-07-2007 13:50-0400 Head Circumference 0 cm Bisi Martinez [facility] Work Phone: 04-07-2007 13:50-0400 Head Occipital-frontal circumference 0 cm Noris Alstona [employer] Work Phone: [facility]; [facility] Work Phone: 04-07-2007 13:50-0400 Height 0 cm Nrois Alstona [employer] Work Phone: [facility] Work Phone: 04-07-2007 13:50-0400 Weight 0 kg Bisi Martinez [facility] Work Phone: 04-07-2007 13:05-0400 BMI (Body Mass Index) 25.17 kg/m2 Noris Alstona [employer] Work Phone: [facility] Work Phone: 04-07-2007 13:05-0400 Body weight 79.58 kg Judy Ciesa [employer] Work Phone: [facility] Work Phone: 04-07-2007 13:05-0400 BP Diastolic 86 mm[Hg] Noris Dumont [employer] Work Phone: [facility] Work Phone: Comment on above: Patient Position: Sitting; Cuff Location : Left Arm; Cuff Size: Standard 04-07-2007 13:05-0400 BP Systolic 138 mm[Hg] Noris Dumont [employer] Work Phone: [facility] Work Phone: Comment on above: Patient Position: Sitting; Cuff Location : Left Arm; Cuff Size: Standard 04-07-2007 13:05-0400 BSA (Body Surface Area) 1.97 m2 Noris Dumont [employer] Work Phone: [facility] Work Phone: 04-07-2007 13:05-0400 Head Circumference 0 cm Bisi Martinez [facility] Work Phone: 04-07-2007 13:05-0400 Head Occipital-frontal circumference 0 cm Noris Dumont [employer] Work Phone: [facility]; [facility] Work Phone: 04-07-2007 13:05-0400 Height 177.8 cm Noris Dumont [employer] Work Phone: [facility] Work Phone: 04-07-2007 13:05-0400 Pulse (Heart Rate) 60 /min Noris Dumont [employer] Work Phone: [facility] Work Phone: Comment on above: Pattern: Regular 04-07-2007 13:05-0400 Respiratory Rate 16 /min Noris Dumont [employer] Work Phone: [facility] Work Phone: Comment on above: Pattern: Unlabored 04-07-2007 13:05-0400 Weight 79.58 kg Bisi Martinez [facility] Work Phone: 10-14-2006 08:38-0400 Body Temperature 97.6 [degF] Bisi Martinez [facility] Work Phone: Comment on above: Method: Oral 10-14-2006 08:38-0400 Body weight 0 kg Bisi Martinez [facility] Work Phone: 10-14-2006 08:38-0400 BP Diastolic 80 mm[Hg] iBsi Martinez [facility] Work Phone: Comment on above: Patient Position: Sitting; Cuff Location : Left Arm; Cuff Size: Standard 10-14-2006 08:38-0400 BP Systolic 138 mm[Hg] Bisi Martinez [facility] Work Phone: Comment on above: Patient Position: Sitting; Cuff Location : Left Arm; Cuff Size: Standard 10-14-2006 08:38-0400 Head Circumference 0 cm Bisi Martinez [facility] Work Phone: 10-14-2006 08:38-0400 Head Occipital-frontal circumference 0 cm Bisi Martinez DO Work Phone: [facility]; [facility] Work Phone: 10-14-2006 08:38-0400 Height 0 cm Bisi Martinez [facility] Work Phone: 10-14-2006 08:38-0400 Pulse (Heart Rate) 80 /min Bisi Martinez [facility] Work Phone: Comment on above: Pattern: Regular 10-14-2006 08:38-0400 Respiratory Rate 16 /min Bisi Martinez [facility] Work Phone: Comment on above: Pattern: Unlabored 10-14-2006 08:38-0400 Weight 0 kg Bisi Martinez [facility] Work Phone: Encounters Encounter Date Encounter Type Care Provider Facility Start: 04-26-2025 Encounter for other preprocedural examination Shell Aguila [facility] Start: 04-26-2025 End: 04-26-2025 ambulatory [facility] [place] [place]: 04-15-2025 End: 04-15-2025 ambulatory Anthony Quigley Facility:[facility] Start: 04-06-2025 End: 04-06-2025 ambulatory Shell Siddiqui Facility:[facility] Start: 04-05-2025 End: 04-05-2025 ambulatory Shell Pandyalay Facility:[facility] Start: 01-24-2025 End: 01-24-[address] Michael Matta MD -[facility] Start: 01-24-2025 End: 01-24-[address] Shell Siddiqui MD Work Phone: -[facility] Start: 10-30-2024 ambulatory Shell Judith Gap Facility :[facility] Start: 10-30-2024 Non-patient / Non-visit Dr[facility] Jose C SOTO -[facility] Start: 10-30-2024 End: 10-30-[address] Shell Siddiqui MD Work Phone: [facility] Work Phone: Start: 10-30-2024 End: 10-30-[address] Alexandr Lizarraga MD -[facility] Services Work Phone: Start: 10-30-2024 End: 10-30-2024 ambulatory Shellnelson Pandyalay Facility:[facility] Start: 10-06-2024 End: 10-06-[address] Alexandr Lizarraga MD -[facility] Work Phone: Start: 10-06-2024 End: 10-06-2024 ambulatory Shell Siddiqui Facility:[facility] Start: 10-02-2024 End: 10-02-2024 Admission to same day surgery center Dr. Robby Garvin MD -[facility] Start: 10-02-2024 End: 10-02-[address] Shell Siddiqui MD Work Phone: [facility] Work Phone: Start: 09-01-2024 End: 09-01-[address] Shell Siddiqui MD Work Phone: [facility] Work Phone: Start: 09-01-2024 End: 09-01-[address] Alexandr Lizarraga MD -Laboratory Work Phone: Start: 09-01-2024 End: 09-01-2024 ambulatory Shell Siddiqui Facility:[facility] Start: 08-24-2024 Non-patient / Non-visit Dr. Jose C SOTO -[facility] Work Phone: Start: 08-24-2024 End: 08-24-[address] Shell Siddiqui MD Work Phone: [facility] Work Phone: Start: 08-24-2024 End: 08-24-[address] Alexandr Lizarraga MD -Pulmonary Services/Neurology Work Phone: Start: 08-24-2024 End: 08-24-2024 ambulatory Alexandr Lizarraga Facility:[facility] Start: 08-17-2024 End: 08-17-[address] Alexandr Lizarraga MD -[facility] Work Phone: Start: 08-17-2024 End: 08-17-2024 ambulatory Alexandr Lizarraga Facility:[facility] Start: 07-18-2024 End: 07-18-[address] Yandel Mccarthy MD -[facility] Work Phone: Start: 07-18-2024 End: 07-18-2024 ambulatory Yandel Fabio Facility:[facility] Start: 07-11-2024 End: 07-11-[address] Yandel Mccarthy MD -Radiology, [facility] Work Phone: Start: 07-11-2024 End: 07-11-2024 ambulatory Yandel Mccarthy Facility:[facility] Start: 06-09-2024 End: 06-09-[address] Yandel Mccarthy MD -[facility] Work Phone: Start: 06-09-2024 End: 06-09-2024 ambulatory Yandel Mccarthy Facility:[facility] Start: 05-15-2024 End: 05-15-2024 Telephone encounter Ok Nicolas PA-C Work Phone: [facility] Comment on above: Results Start: 05-15-2024 End: 05-15-2024 ambulatory SHELL SIDDIQUI Facility:[facility] Start: 05-15-2024 End: 05-15-2024 Subsequent hospital visit by physician [facility] Work Phone: Radiology Comment on above: Acute cough [R05.1] Start: 05-14-2024 End: 05-14-2024 Telephone encounter Ok Nicolas PA-C Work Phone: [facility] Comment on above: Results Start: 05-13-2024 End: 05-13-2024 ambulatory SHELL SIDDIQUI Facility:[facility] Start: 05-13-2024 End: 05-13-2024 Patient encounter procedure Ok Nicolas PA-C Work Phone: [facility] Comment on above: Acute cough (Primary Dx) Start: 05-09-2024 End: 05-09-[address] [facility] Work Phone: Start: 05-09-2024 End: 05-09-2024 ambulatory [facility] Facility:[facility] Start: 05-03-2024 End: 05-03-2024 ambulatory [facility] Facility:[facility] Start: 09-14-2023 Non-patient / Non-visit Dr. Barry Work Phone: [facility] Work Phone: Start: 09-14-2023 Non-patient / Non-visit Dr. Barry Work Phone: [facility] Start: 09-14-2023 End: 09-14-[address] Shell Siddiqui Work Phone: [facility] Work Phone: Start: 09-14-2023 End: 09-14-[address] Shell [facility] Work [facility]: Start: 08-26-2023 Non-patient / Non-visit Dr. Barry Work Phone: [facility] Start: 08-26-2023 End: 08-26-2023 Admission to same day surgery center Dr. Shell Siddiqui Work Phone: [facility]-Endoscopy Work Phone: Start: 08-26-2023 End: 08-26-[address] Shell Siddiqui Work Phone: [facility] Work Phone: Start: 08-24-2023 End: 08-24-[address] Shell Siddiqui Work Phone: [facility] Work Phone: Start: 08-24-2023 End: 08-24-[address] Shell Siddiqui Work Phone: [facility]-Laboratory Work Phone: Start: 07-27-2023 End: 07-27-[address] Shell Siddiqui Work Phone: [facility] Work Phone: Start: 07-14-2023 End: 07-14-[address] Shell Siddiqui Work Phone: [facility] Internal Medicine Work Phone: Start: 06-22-2023 End: 06-26-2023 ambulatory ERVIN ANDERSON [facility] Amb[facility] Start: 06-22-2023 End: 06-22-2023 Clinical Support Courtney Delgado Work Phone: [facility] Comment on above: Sensorineural hearin g loss, bilateral (Primary Dx) Start: 06-22-2023 End: 06-22-2023 Office outpatient new 30 minutes Shell Siddiqui MD Work Phone: [facility] Comment on above: Sensorineural hearin g loss, bilateral (Primary Dx); Hearing loss, unspecified hearing loss type, unspecified laterality Start: 05-18-2023 End: 05-18-[address] Bisi Martinez Work Phone: [facility] Work Phone: Start: 05-18-2023 End: 05-18-[address] Bisi Martinez [facility] Work [facility]: Start: 05-11-2023 Transcribe Orders Nikkie Swift MA [facility] Comment on above: Hearing loss, unspec ified hearing loss type, unspecified laterality (Primary Dx) Start: 05-10-2023 End: 05-10-[address] Bisi Martinez Work Phone: [facility] Internal Medicine Work Phone: Start: 04-14-2023 End: 04-14-[address] Bisi Martinez Work Phone: [facility] Work Phone: Start: 03-30-2023 End: 03-30-[address] Bisi Martinez Work Phone: [facility] Radiology Start: 03-29-2023 End: 03-29-[address] Bisi Martinez Work Phone: [facility] Internal Medicine Work Phone: Start: 03-01-2023 End: 03-01-[address] Shell Siddiqui Work Phone: [facility] Work Phone: Start: 03-01-2023 End: 03-01-[address] Shell Siddiqui [facility] Work Phone: Start: 02-24-2023 End: 02-24-[address] Shell Siddiqui Work Phone: [facility] Internal Medicine Work Phone: Start: 02-22-2023 End: 02-22-[address] Shell Siddiqui Work Phone: [facility] Work Phone: Start: 02-17-2023 End: 02-17-[address] Shell Siddiqui Work Phone: [facility] Work Phone: Start: 02-17-2023 End: 02-17-[address] Shell Siddiqui Work Phone: [facility] Work Phone: Start: 02-01-2023 End: 02-01-[address] Shell Siddiqui Work Phone: [facility]-Nuclear Medicine, [facility] Work Phone: Start: 01-13-2023 End: 01-13-[address] Shell Siddiqui Work Phone: [facility] Internal Medicine Work Phone: Start: 12-08-2022 End: 12-08-[address] Bisi Martinez Work Phone: [facility] Work Phone: Start: 12-08-2022 End: 12-08-[address] Bisi Martinez [facility]: Start: 11-17-2022 End: 11-17-[address] Bisi Martinez Work Phone: [facility] Internal Medicine Start: 11-13-2022 End: 11-13-[address] Bisi Martinez Work Phone: [facility] Work Phone: Start: 11-13-2022 End: 11-13-[address] Bisi Martinez Work Phone: [facility]-Pulmonary Services/Neurology Start: 11-03-2022 End: 11-03-[address] Bisi Martinez Work Phone: [facility] Internal Medicine Start: 10-13-2022 End: 10-13-[address] Bisi Martinez Work Phone: [facility] Work Phone: Start: 10-13-2022 End: 10-13-[address] Bisi Martinez Work Phone: [facility] Start: 10-13-2022 End: 10-13-[address] Bisi Martinez Work Phone: [facility] Internal Medicine Start: 09-25-2022 End: 09-25-[address] Bisi Martinez Work Phone: [facility] Start: 09-23-2022 ambulatory Bisi Martinez DO [facility] Start: 09-17-2022 Bisi campoverde DO Work Phone: [facility] Start: 08-27-2022 End: 08-28-2022 Office outpatient visit 40 minutes Bisi Martinez DO Work Phone: [facility] Start: 07-07-2022 End: 07-07-[address] Bisi Martinez Work Phone: [facility] Work Phone: Start: 07-07-2022 End: 07-07-[address] Bisi Martinez Work Phone: [facility]-Laboratory, Specimen Start: 05-20-2022 End: 05-24-2022 Evaluation and management of inpatient ROBBY BOSWELL DO Facility:[facility] Start: 05-20-2022 End: 05-24-2022 Evaluation and management of inpatient ROBBY BOSWELL DO [facility] Start: 05-06-2022 End: 05-07-2022 ambulatory ROBBY BOSWELL DO Facility:[facility] Start: 05-06-2022 End: 05-06-2022 Admission to [facility] ROBBY BOSWELL DO [facility] Start: 04-23-2022 End: 04-23-[address] Bisi Martinez Work Phone: [facility] Work Phone: Start: 04-23-2022 End: 04-23-[address] Bisi Martinez Work Phone: [facility] Start: 04-07-2022 End: 04-07-[address] Bisi Martinez Work Phone: [facility] Work Phone: Start: 04-07-2022 End: 04-07-[address] Bisi Martinez Work Phone: [facility]-Laboratory Start: 03-31-2022 End: 03-31-2022 Admission to same day surgery center Dr. Bisi Martinez Work Phone: [facility]/Special Procedures Start: 03-31-2022 End: 03-31-[address] Bisi Martinez Work Phone: [facility] Work Phone: Start: 03-31-2022 End: 03-31-2022 Non-patient / Non-visit Dr. Bisi Martinez Work Phone: [facility] Start: 03-27-2022 Non-patient / Non-visit Dr. Libertad Martinez Work Phone: [facility] Start: 03-23-2022 End: 03-23-[address] Bisi Martinez Work Phone: [facility] Start: 03-13-2022 Non-patient / Non-visit Dr. Libertad Martinez Work Phone: [facility] Start: 03-13-2022 End: 03-13-[address] Bisi Martinez Work Phone: [facility] Work Phone: Start: 03-13-2022 End: 03-13-[address] Bisi [facility] Start: 03-04-2022 End: 03-04-2022 Office outpatient visit 25 minutes Bisi Martinez DO Work Phone: [facility] Start: 03-04-2022 End: 03-04-2022 Preprocedural examination done Pauline Beltran [facility]; [facility] Work Phone: Start: 01-31-[address] Evan Martinez [facility] Start: 01-31-2022 Non-patient / Non-visit Dr. Libertad Martinez Work Phone: [facility] Start: 01-29-2022 End: 01-29-[address] Bisi Martinez Work Phone: [facility] Start: 01-26-2022 End: 01-26-[address] Bisi Martinez Work Phone: [facility] Start: 01-15-2022 End: 01-15-2022 Patient encounter procedure Pauline Beltran [facility]; [facility] Work Phone: Start: 01-15-2022 End: 01-15-2022 Periodic preventive med est patient 65yrs& older Bisi Martinez DO Work Phone: [facility] Start: 11-12-2021 End: 11-12-2021 Admission to same day surgery center Dr. Bisi Martinez Work Phone: [facility]/Special Procedures Start: 10-31-2021 End: 10-31-2021 Office outpatient visit 15 minutes Bisi Martinez DO Work Phone: [facility] Start: 10-30-2021 Non-patient / Non-visit Dr. Libertad Martinez Work Phone: [facility] Start: 10-30-2021 End: 10-30-[address] Bisi Martinez Work Phone: [facility]-Cardiovascular Services Start: 10-17-2021 End: 10-17-[address] Bisi Martinez Work Phone: [facility] Start: 10-09-2021 End: 10-09-[address] Bisi Martinez Work Phone: [facility]-Laboratory Start: 09-09-2021 End: 09-09-[address] Bisi [facility] Start: 07-24-2021 End: 07-24-2021 Office outpatient visit 10 minutes Bisi Martinez DO Work Phone: [facility] Start: 07-11-2021 End: 07-11-[address] Bisi Martinez Work Phone: [facility]-Cardiovascular Services Start: 07-03-2021 End: 07-03-[address] Bisi Martinez Work Phone: [facility] Radiology Start: 07-02-2021 End: 07-02-2021 Office outpatient visit 25 minutes Bisi Katherine DO Work Phone: [facility] Start: 03-06-2021 End: 03-07-2021 Office outpatient visit 25 minutes Bisi Katherine DO Work Phone: [facility] Start: 02-24-2021 End: 02-24-2021 Lab Order Bisi Martinez DO Work Phone: [facility] Start: 02-24-2021 End: 02-24-2021 Bisi Martinez DO Work Phone: [facility] Start: 01-09-2021 End: 01-10-2021 Patient encounter procedure Bisi Katherine DO Work Phone: [facility] Start: 01-09-2021 End: 01-10-2021 Periodic preventive med est patient 65yrs& older Bisi Katherine DO Work Phone: [facility] Start: 10-31-2020 End: 11-01-2020 Office outpatient visit 25 minutes Bisi Katherine DO Work Phone: [facility] Start: 10-31-2020 Review Bisi Coffmano n DO Work Phone: [facility] Start: 08-15-2020 End: 08-15-2020 Office outpatient visit 25 minutes Bisi Martinez [facility] Start: 07-25-2020 End: 07-25-2020 Office outpatient visit 25 minutes Bisi Martinez [facility] Start: 04-08-2020 End: 04-08-2020 Office outpatient visit 5 minutes Bisi Martinez [facility] Start: 04-05-2020 Review Bisi Martinez [facility] Start: 03-28-2020 End: 03-28-2020 Office outpatient visit 10 minutes Bisi Martinez [facility] Start: 03-22-2020 End: 03-22-2020 Office outpatient visit 25 minutes Bisi Martinez [facility] Start: 03-22-2020 Review Bisi Martinez [facility] Start: 12-21-2019 End: 12-21-2019 Office outpatient visit 5 minutes Bisi Martinez [facility] Start: 11-23-2019 End: 11-23-2019 Patient encounter procedure Bisi Martinez DO Work Phone: [facility] Start: 11-23-2019 End: 11-23-2019 Periodic preventive med est patient 65yrs& older Bisilin Coffmanon [facility] Internal Medicine Start: 05-26-2018 End: 05-26-2018 Office outpatient visit 25 minutes Bisi Martinez [facility] Internal [facility] Start: 05-26-2018 Review Bisi Martinez [facility] Medicine Start: 03-25-2018 End: 03-25-[address] [facility] Start: 03-07-2018 [facility] Start: 02-25-2018 End: 02-25-[address] [facility] Start: 01-28-2018 End: 01-28-[address] [facility] Start: 09-01-2017 End: 09-01-2017 Office outpatient visit 15 minutes Bisi Katherine [facility] Internal Medicine Start: 05-13-2017 End: 05-13-2017 Office outpatient visit 15 minutes Bisi Martinez [facility] Start: 03-25-2017 End: 03-25-2017 Patient encounter procedure Bisi Martinez DO Work Phone: [facility] Start: 03-25-2017 End: 03-25-2017 Periodic preventive med est patient 65yrs& older Bisilin Coffmanon [facility] Start: 03-18-2017 End: 03-18-2017 Office outpatient visit 15 minutes Bisi Katherine [facility] Start: 03-18-2017 End: 03-18-2017 Preprocedural examination done Bisi Martinez DO Work Phone: [facility] Start: 11-24-2016 End: 11-24-2016 Office outpatient visit 15 minutes Bisi Martinez [facility] Start: 11-24-2016 End: 11-24-2016 Preprocedural examination done Bisi Martinez DO Work Phone: [facility] Start: 10-07-2016 End: 10-07-2016 Office outpatient visit 25 minutes Bisi Martinez [facility] Medicine Start: 03-20-2016 End: 03-20-2016 Patient encounter procedure Bisi Martinez [facility] Start: 03-20-2016 End: 03-20-2016 Bisi Martinez DO Work Phone: [facility] Start: 02-07-2016 End: 02-07-2016 Phone Encounter Bisilin Martinez [facility] al Medicine Start: 02-07-2016 End: 02-07-2016 Bisi Martinez DO Work Phone: [facility] Start: 02-07-2016 End: 02-07-2016 Patient encounter procedure Bisi Martinez DO Work Phone: [facility] Start: 02-07-2016 End: 02-07-2016 Periodic preventive med est patient 65yrs& older Bisilin Martinez [facility] Start: 01-15-2016 End: 01-15-2016 Office outpatient visit 25 minutes Bisi Martinez [facility] Start: 12-30-2015 End: 12-30-2015 Office outpatient visit 15 minutes Bisi Martinez [facility] Start: 02-14-2015 End: 02-14-2015 Office outpatient visit 15 minutes Bisi Martinez [facility] Start: 01-28-2015 End: 01-28-2015 Patient encounter procedure Bisi Martinez DO Work Phone: [facility] Start: 01-28-2015 End: 01-28-2015 Periodic preventive med est patient 65yrs& older Bisilin Martinez [facility] Start: 10-12-2014 End: 10-12-2014 Office outpatient visit 10 minutes Bisi Martinez [facility] Start: 05-23-2012 End: 05-23-2012 Patient encounter procedure Bisi Martinez [facility] Start: 05-23-2012 End: 05-23-2012 Bisi Martinez DO Work Phone: [facility] Start: 11-23-2011 End: 11-23-2011 Office outpatient visit 15 minutes Bisi Martinez [facility] Start: 11-18-2011 End: 11-18-2011 Annotation/Addendum Bisi Martinez [facility] Start: 11-18-2011 End: 11-18-2011 Bisi Martinez DO Work Phone: [facility] Start: 11-10-2011 End: 11-10-2011 Office outpatient visit 15 minutes Bisi Martinez [facility] Start: 10-30-2011 End: 10-30-2011 Office outpatient visit 25 minutes Bisi Martinez [facility] Start: 10-26-2011 End: 10-26-2011 Office outpatient visit 25 minutes Bisi Martinez [facility] Start: 09-16-2009 End: 09-16-2009 Patient encounter procedure Bisi Martinez [facility] Start: 09-16-2009 End: 09-16-2009 Bisi Martinez DO Work Phone: [facility] Start: 02-07-2009 End: 02-07-2009 Office outpatient visit 15 minutes Bisi Martinez [facility] Start: 01-03-2009 End: 01-03-2009 Office outpatient visit 15 minutes Bisi Martinez [facility] Start: 10-22-2008 End: 10-22-2008 Patient encounter procedure Bisi Martinez [facility] Start: 10-22-2008 End: 10-22-2008 Bisi Martinez DO Work Phone: [facility] Start: 06-04-2008 End: 06-04-2008 Patient encounter procedure Bisi Martinez [facility] Start: 06-04-2008 End: 06-04-2008 Bisi Martinez DO Work Phone: [facility] Start: 05-16-2008 End: 05-16-2008 Office outpatient visit 25 minutes Bisi Martinez [facility] Start: 11-23-2007 End: 11-23-2007 Patient encounter procedure Bisi Martinez [facility] Start: 11-23-2007 End: 11-23-2007 Bsii Martinez DO Work Phone: [facility] Start: 11-14-2007 End: 11-14-2007 Patient encounter procedure Bisi Martinez [facility] Start: 11-14-2007 End: 11-14-2007 Bisi Martinez DO Work Phone: [facility] Start: 05-16-2007 End: 05-16-2007 Patient encounter procedure Bisi Martinez [facility] Start: 05-16-2007 End: 05-16-2007 Bisi Martinez DO Work Phone: [facility] Start: 04-28-2007 End: 04-28-2007 Office outpatient visit 10 minutes Bisi Martinez [facility] Start: 04-07-2007 End: 04-07-2007 Office outpatient visit 40 minutes Bisi Martinez [facility] Start: 04-06-2007 End: 04-06-2007 Historical Summary Bisi Martinez [facility] Start: 04-06-2007 End: 04-06-2007 Bisi Martinez DO Work Phone: [facility] Start: 10-14-2006 End: 10-14-2006 Office outpatient visit 25 minutes Bisi Martinez [facility] Patient encounter procedure Pauline Gravius [facility]; [facility] Work Phone: Patient encounter procedure Kaitlynn Oh LPN [facility]; [facility] Work Phone: Patient encounter procedure Prema Cortés LPN [facility]; [facility] Work Phone: Patient encounter procedure Prema Cortés LPN [facility]; [facility] Work Phone: Patient encounter procedure Pauline Gravius [facility]; [facility] Work Phone: Patient encounter procedure Pauline Gravius [employer] [facility]; [facility] Work Phone: Patient encounter procedure Pauline Gravius [facility]; [facility] Work Phone: Patient encounter procedure Gilda Hogue MA [facility]; [facility] Work Phone: Preprocedural examination done Pauline Gravius [facility]; [facility] Work Phone: Comment on above: requested by Dr Rocio reyes Preprocedural examination done [facility]; [facility] Work Phone: Comment on above: requested by Dr Rocio reyes Preprocedural examination done [facility]; [facility] Work Phone: Comment on above: requested by Dr Rocio reyes Preprocedural examination done [facility]; [facility] Work Phone: Comment on above: requested by Dr Rocio reyes Preprocedural examination done Pauline Gravius [facility]; [facility] Work Phone: Comment on above: requested by Dr Rocio reyes Preprocedural examination done Pauline Gravius [facility]; [facility] Work Phone: Comment on above: requested by Dr Rocio reyes Preprocedural examination done Pauline [facility]; [facility] Work Phone: Comment on above: requested by Dr Rocio reyes Preprocedural examination done Gilda Hogue CA [facility]; [facility] Work Phone: Procedures Date Procedure Procedure Detail Performing Clinician Start: 10-30-2024 Cardiovascular stress test using pharmacologic stress agent Dr. Shell Siddiqui MD Work Phone: Start: 10-02-2024 Local anesthetic sacral epidural block Dr. Shell Siddiqui MD Work Phone: Start: 10-02-2024 Injection of spinal epidural space Dr. Shell Siddiqui MD Work Phone: Start: 10-02-2024 Injection using fluoroscopic guidance Dr. Shell Siddiqui MD Work Phone: Start: 08-17-2024 Evaluation of diagnostic study results Dr. Shell Siddiqui MD Work Phone: Start: 07-11-[address] Shell Siddiqui MD Work Phone: Start: 07-11-2024 Computerized axial tomography of lumbar spine with contrast Dr. Shell Siddiqui MD Work Phone: Start: 06-09-2024 X-ray of lumbosacral spine Dr. Shell Siddiqui MD Work Phone: Start: 05-15-2024 Radiologic exam chest 2 views Ok R Ath y PA-C Work Phone: Start: 05-09-2024 Computerized axial tomography of lumbar spine with contrast Dr. Shell Siddiqui MD Work Phone: Start: 09-14-2023 Cardiovascular stress test using pharmacologic stress agent Dr. Shell Siddiqui Work Phone: Start: 08-26-[address] Shell Siddiqui Work Phone: Start: 04-14-2023 CT of abdominal vascular structures Dr. Bisi Martinez Work Phone: Start: 03-30-2023 Radiography of thoracic spine Dr. Evan Martinez Work Phone: Start: 03-30-2023 X-ray of lumbar spine, two or three views Dr. Bisi Martinez Work Phone: Start: 03-01-[address] Shell Siddiqui Work Phone: Start: 02-01-2023 Radionuclide gastric emptying study Dr. Shell Siddiqui Work Phone: Start: 10-13-[address] Bisi Martinez Work Phone: Start: 09-25-2022 Computed tomography of abdomen and pelvis with contrast Dr. Bisi Martinez Work Phone: Start: 04-23-2022 End: 04-23-2022 Procedure Note: See Note; NOTES: [facility] [address] [place], [place] [id number] OFFICE VISIT Date of Service: 04/23/22 MR#: [id number] Acct: [id number] Name: MERRICK HODGES Rep #: [id number] : 1945 Provider: JESSICA ruiz Age/Sex: 76/M Location: [facility] Status: Signed [facility] History of Present Illness Details: This is a 76-year-old white male who presents today for an outpatient cardiovascular follow-up visit. He has a history of CAD status post PCI (2004-diagonal branch), PAD, hyperlipidemia, hypertension, superimposed upon diabetes mellitus. He continues to follow with Dr. Chávez peripheral vascular surgery for his PAD. Patient underwent a balloon angioplasty of the right common femoral artery into the femorofemoral bypass graft with a 6 and 7 mm balloon on 11/12/[address] Chávez. He underwent an echocardiogram on 03/13/2022-results are noted below. His 15 day event monitor raised concerns with aberrancy versus nonsustained ventricular tachycardia. He underwent a left cardiac catheterization on 04/02/2022-results are noted below. From a cardiac standpoint, the patient is doing well. He denies any palpitations, chest pain, pressure or heaviness. He denies SOB, Orthopnea, and PND. He does not have bleeding issues; no blood in urine, stool or nosebleeds. He does have complaints of fatigue. He denies myalgias, or claudication. He does not have edema, or sudden weight gain. He denies dizziness, lightheadedness, syncopal or near syncopal episodes, and headaches. He states that he is having a spinal cord stimulator placed May [address] Boswell at [facility]. Intake Vital Signs 01/26/22 08:48 03/31/22 08:34 04/23/22 09:27 04/23/22 09:27 Height 5 ft 10 in 5 ft 10 in 5 ft 10 in 5 ft 10 in Weight: 170 lb 171 lb BMI 24.5 BP 135/70 H Blood Pressure Location Lt brachial Position Sitting Respiration 18 Pulse 66 Pulse Source Monitor Pulse Oximetry (%) 96 Intake Visit Reasons: 3 m fu Clinical Supervisor Required: No Is patient in pain?: No Allergies atorvastatin [From Lipitor] Adverse Reaction (Intermediate, Verified 04/23/22 09:35) Myalgias Medications amlodipine 5 mg tablet 5 mg PO BID 04/16/17 [History Confirmed 04/23/22] fosinopril 20 mg tablet 20 mg PO DAILY 04/16/17 [History Confirmed 04/23/22] multivitamin 1 tab PO DAILY 04/16/17 [History Confirmed 04/23/22] aspirin 81 mg tablet,delayed release (Adult Aspirin Regimen) 81 mg PO QDAY 01/06/18 [History Confirmed 04/23/22] metformin 500 mg tablet 500 mg PO DAILY 09/19/20 [History Confirmed 04/23/22] gabapentin 600 mg tablet 600 mg PO BID 04/17/21 [History Confirmed 04/23/22] rosuvastatin 10 mg tablet 10 mg PO DAILY 10/17/21 [History Confirmed 04/23/22] clopidogrel 75 mg tablet 75 mg PO DAILY 01/26/22 [History Confirmed 04/23/22] metoprolol tartrate 50 mg tablet 50 mg PO BID #60 tabs 04/02/22 [Rx Confirmed 04/23/22] PFS Medical History (Reviewed 04/23/22 @ 16:41 by Franchesca Moreira FILM PROJECTOR OPERATOR, FILM PROJECTOR OPERATOR-C) 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 Chronic back pain Essential hypertension History of non-ST elevation myocardial infarction (NSTEMI) Hyperlipidemia Hypertension Lumbar stenosis NSVT (nonsustained ventricular tachycardia) Overweight (BMI 25.0-29.9) Peripheral arterial disease Prinzmetal angina Type 2 diabetes mellitus Surgical History History of left heart catheterization ( 04/02/22) S/P femoral-femoral bypass surgery Family History Father , of cancer Myocardial infarction, Onset Age: 70 Cancer Mother , age 66 Bleeding in brain due to brain aneurysm Brother Myocardial infarction, Onset Age: 62 CAD (coronary artery disease) Social History Smoking Status: Former smoker how long ago did patient quit smokin ROS Const Const: Positive for fatigue; Negative for weakness, fever(s), headache(s), chills, frequent falls, weight gain or weight loss Eyes Eyes: Negative for blind spots, loss of peripheral vision, transient loss of vision, blurry vision, change in vision, double vision, floaters or tunnel vision ENT ENT: Negative for headache(s), dizziness, Nosebleed/epistaxis, balance problems or neck pain Cardio Chest Pain: No Palpitations: No Edema: None Muscle aches with walking: None Resp Respiratory: Negative for SOB with activity, SOB at rest or SOB orthopnea SOB lying down GI GI: Negative nausea, vomiting, heartburn, bloating, vomiting blood/hematemesis, bright, red blood in stools or black,tarry stools Musc Musc: Negative for muscle aches/ myalgia, muscle weakness, joint pain or balance problems Neuro Neuro: Negative for dizziness, lightheadedness, near syncope, syncope, orthostatic symptoms, frequent falls, headache(s), weakness, blurry vision or double vision Artie Hematologic/Lymphatic: Negative for easy bleeding or easy bruising Endo Endo: Positive for fatigue Cardiology Exam Const Appearance: cooperative and no acute distress Orientation: alert and oriented x3 Head Head: normal to inspection Ears: hearing grossly normal bilaterally Nose: external nose normal Face and Sinus: face symmetric Eyes General: appearance normal, both eyes and all related structures Eyelids: eyelids normal Conjunctivae: conjunctivae normal EOM: EOM intact bilaterally Neck Neck: normal visual inspection Carotids: Negative bruit Chest Chest inspection: normal inspection of the chest and normal respiratory effort Auscultation: Bilateral: Clear to Auscultation Cardio Palpation: normal PMI Rate: regular rate Rhythm: regular rhythm Heart sounds: S1 normal and S2 normal; Negative rub, gallop or murmur GI GI: normal to inspection and soft; Negative no hepatosplenomegaly Neuro General: patient alert, patient oriented x3 and CN's II-XI intact bilaterally Skin Skin: no rashes or lesions noted Extremities Pulses: Normal: Right Posterior Tibial Pulse, Left Posterior Tibial Pulse, Right Radial Pulse and Left Radial Pulse Lower Extremity Edema: None: Bilateral Psych Psychological: normal affect Assessment and Plan Assessment and Plan (1) 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 His most recent stress test from 10/30/2021 was negative for ischemia. His cardiac catheterization from 04/02/2022 demonstrated muscogee multivessel disease, and previously placed stent is patent. He appears stable at this time, and denies any symptoms or events. He will continue with his current medical therapy, along with aggressive risk factor and lifestyle modifications. (2) Stented coronary artery: Status: Chronic Comment: 09/21/2003 PTCA and BENEDICT to ostium of first dx, Dr. Carbajal, [facility] Plan: Patient has a history of coronary artery disease with stent placement in 2003. His most recent stress test from 10/30/2021 was negative for ischemia. His cardiac catheterization from 04/02/2022 demonstrated muscogee multivessel disease, and previously placed stent is patent. He appears stable at this time, and denies any symptoms or events. He will continue with his current medical therapy, along with aggressive risk factor and lifestyle modifications. He will continue to monitor for any concerning symptoms. (3) Peripheral arterial disease: Status: Chronic Plan: Patient has a history of peripheral arterial disease. He will continue to follow with Dr. Chávez for this. (4) Essential hypertension: Status: Chronic Plan: Patient has a history of hypertension. His blood pressure is well controlled at this time. He will continue with his current medical therapy, along with monitoring blood pressures at home. He will notify our office of any persistent high or low blood pressure readings. (5) Hyperlipidemia: Status: Chronic Qualifiers: Hyperlipidemia type: unspecified Qualified Code(s): E78.5 - Hyperlipidemia, unspecified Plan: Patient has a history of hyperlipidemia. His most recent lipid panel from 04/07/2022: Cholesterol 127, HDL 52, LDL 54, triglycerides 105. He will continue with rosuvastatin 10 mg daily, along with aggressive risk factor and lifestyle modifications. (6) Fatigue: Status: Acute Plan: He continues to have complaints of fatigue. We will obtain lab work to evaluate this. Depending on results, further recommendations will be made. Orders: Orders Vitamin D,25 Hydroxy Today R53.83 - Other fatigue Free T3 Today R53.83 - Other fatigue T4 Free Direct Today R53.83 - Other fatigue Thyroid Stim Hormone (TSH) Today R53.83 - Other fatigue Plan Details Additional Comments: Patient will follow up in 6-9 months, or sooner if needed. Thank you for allowing me to participate in the care of your patient. Please don't hesitate to call if any issues arise. This note was generated using a voice recognition system and there may be incorrect words, spelling, or punctuation that were not noted when reviewing the office note prior to saving. Portions of this documentation were copied and pasted from previous office visit notes to provide a cohesive continuity of the history. The note has been reviewed, edited, and updated, as necessary. 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 transplanted heart: muscogee heart Stented coronary artery Z95.5 Peripheral arterial disease I73.9 Essential hypertension I10 Hyperlipidemia E78.5 Hyperlipidemia type: unspecified Fatigue R53.83 Supplemental Info Supplemental Information Cardiac catheterization 04/02/2022: PROCEDURE(S) PERFORMED [id number])[facility] CLINICAL PROFILE AND INDICATIONS Indications: Cardiac Arrythmia, Pre-Operative Evaluation Heart Failure: None Stress/Imaging Date: 10/30/2021tress Test with SPECT MPI: Negative Angina Classification Anginal Classification w/in 2 Weeks: No symptoms CAD Presentations: No Sxs, no angina. CONCLUSIONS [place] Multivessel CAD DX1: stent: patent RECOMMENDATIONS Risk factor modification Medical therapy DESCRIPTION OF PROCEDURE The patient arrived to the procedure lab. The risks and benefits of the procedure as well as a full description of our services here and current unavailability of surgical backup were fully explained to the patient and/or their significant other prior to the catheterization. The Timeout was completed, verifying the correct patient and procedure. The patient's procedural site was prepped and draped in the usual fashion. Local anesthetic was given subcutaneously to right radial region with Lidocaine 2%. Using a modified Seldinger technique, arterial access was obtained via the right radial artery, a 6Fr sheath was inserted. Left Coronary Artery selective angiography was performed in multiple views using a 5 Fr. 4.0 Allgood catheter. Right Coronary Artery selective angiography was then performed in multiple views using a 5 Fr. 4.0 Allgood catheter. Right Coronary Artery selective angiography was then performed in multiple views using a 5 Fr. 4.0 Allgood catheter.The arterial sheath was pulled and a TR Band was applied for hemostasis. 11cc air inserted. CORONARY ANGIOGRAPHY DOMINANCE: Left Dominant LEFT HEART ASSESSMENT Left Ventricular Ejection Fraction: Not assessed LEFT MAIN: short: bifurcating vessel, Mild calcification LEFT ANTERIOR DESCENDING ARTERY: MID LAD: Mild calcification, Mild luminal irregularities, at the bifurcation of the SP and DX1: eccentric: 10 - 25 % Stenosis DIAGONAL 1: Proximal - Previously placed stent is patent CIRCUMFLEX ARTERY: Mild luminal irregularities PROX CIRC: Mild calcification RIGHT CORONARY ARTERY: Angiographically normal Echocardiogram 03/13/2022: Interpretation Summary Left ventricular systolic function is normal. The estimated ejection fraction is 65 %. Hypermobile atrial septum. Trivial mitral valve insufficiency. Mild tricuspid valve insufficiency. Trivial pulmonic valve insufficiency. Right ventricular systolic pressure estimated to be 31 mmHg. No evidence for diastolic dysfunction. Bubble contrast study negative for right to left interatrial shunt. Stress test 10/30/2021: Interpretation: Rest and stress SPECT Cardiolite nuclear imaging status post realignment and normalization demonstrate at rest the appearance of a small area of subtle diminished tracer uptake in the mid inferior segments which appears to improve/normalize following stress. There is end systolic thickening and brightening. The gated Cardiolite study demonstrates myocardial thickening and inward wall motion. The reported LVEF is 69%. Impression: 1. Rest and stress SPECT current nuclear imaging demonstrate myocardial perfusion changes compatible with shifting soft tissue attenuation/artifact which appears to be more prominent at rest as opposed to stress with no myocardial perfusion changes considered diagnostic for associated stress-induced myocardial ischemia. 2. The gated Cardiolite study reports an LVEF of 69%. Stress Test 05/2018: Pharmacologic myocardial perfusion stress test. 72-year-old man [...] myocardial perfusion stress test. Preserved ejection fraction. Labs: LDL Cholesterol 54 mg/dL (0-130) HDL Cholesterol 52 mg/dL (40-) Triglycerides 105 mg/dL (-199) VLDL Cholesterol 21 mg/dL (5-40) Diagnostics: Electrocardiogram Echocardiogram Cardiac Catheterization Chest X-Ray Pulmonary: No Data to Display 04/23/22 7976 <Electronically signed by Franchesca LOPEZ> Date Franchesca LOPEZ Cosigner Signature: Date (if applicable) CC: Dr. Bisi Martinez, DO Bisi Martinez DO Work Phone: Start: 04-02-2022 End: 04-02-2022 Procedure Note: See Note; NOTES: [facility] Imaging Services [address] [place] [id number] Cardiac Cath Diagnostic MR#: [id number] Acct: [id number] Name: MERRICK HODGES Rep #: [id number] : 1945 76 From: Perez Smith MD PCP: Dr. Bisi Martinez, DO Status:[facility] Patient Name: MERRICK HODGES Study Date: 03/31/2022 Performing: Perez Smith MD Ht: 70 inches 177.8 cm : 1945 Wt: 170.2 lbs 77.11 kg Age: 76 Gender: male BSA: 1.95 PROCEDURE(S) PERFORMED [id number])[facility] CLINICAL PROFILE AND INDICATIONS Indications: Cardiac Arrythmia, Pre-Operative Evaluation Heart Failure: None Stress/Imaging Date: 10/30/2021tress Test with SPECT MPI: Negative Angina Classification Anginal Classification w/in 2 Weeks: No symptoms CAD Presentations: No Sxs, no angina. CONCLUSIONS [place] Multivessel CAD DX1: stent: patent RECOMMENDATIONS Risk factor modification Medical therapy DESCRIPTION OF PROCEDURE The patient arrived to the procedure lab. The risks and benefits of the procedure as well as a full description of our services here and current unavailability of surgical backup were fully explained to the patient and/or their significant other prior to the catheterization. The Timeout was completed, verifying the correct patient and procedure. The patient's procedural site was prepped and draped in the usual fashion. Local anesthetic was given subcutaneously to right radial region with Lidocaine 2%. Using a modified Seldinger technique, arterial access was obtained via the right radial artery, a 6Fr sheath was inserted. Left Coronary Artery selective angiography was performed in multiple views using a 5 Fr. 4.0 Allgood catheter. Right Coronary Artery selective angiography was then performed in multiple views using a 5 Fr. 4.0 Allgood catheter. Right Coronary Artery selective angiography was then performed in multiple views using a 5 Fr. 4.0 Allgood catheter.The arterial sheath was pulled and a TR Band was applied for hemostasis. 11cc air inserted. CORONARY ANGIOGRAPHY DOMINANCE: Left Dominant LEFT HEART ASSESSMENT Left Ventricular Ejection Fraction: Not assessed LEFT MAIN: short: bifurcating vessel, Mild calcification LEFT ANTERIOR DESCENDING ARTERY: MID LAD: Mild calcification, Mild luminal irregularities, at the bifurcation of the SP and DX1: eccentric: 10 - 25 % Stenosis DIAGONAL 1: Proximal - Previously placed stent is patent CIRCUMFLEX ARTERY: Mild luminal irregularities PROX CIRC: Mild calcification RIGHT CORONARY ARTERY: Angiographically normal COMPLICATIONS No Complications PROCEDURE MEDICATIONS Fentanyl 50 mcg IV Versed 1 mg IV Oxygen: 2 L/min via nasal cannula Heparin given IA 03/31/2022 09:57:59 Verapamil 2.5mg, Ntg 100mcgs, 3000 units of Heparin given IA 03/31/2022 09:57:59 SUMMARY OF HEMODYNAMIC DATA Time AIR REST ECG 08:37:18 AO 107/41 (63) SA 10:08:58 AIR REST 11:00:11 Signed By Perez Smith MD On 04/02/2022 10:35:31 Perez Smith MD 04/02/22 1036 Date Perez Smith MD Cosigner Signature: Date (if indicated) CC: Dr. Bisi Martinez DO; Dr. Perez Smith MD Date Dictated: 03/31/22951 Date Transcribed: 04/02/22 1035 Hook Puller: PM Signed Bisi Martinez DO Work Phone: Start: 03-27-2022 End: 03-31-2022 Procedure Note: See Note; NOTES: [facility] Medical Records Department [address] [place] [address] History Physical Exam 03/27/22 1551 MR#: [id number] Acct: [id number] Name: HODGESMERRICK VERONA Rep #: [id number] : 1945 76 From: Perez Smith MD PCP: Dr. Bisi Martinez DO Status:[facility] Location: [facility] History and Physical Date of Admission: 03/31/22 [facility] [address] [place] [address] OFFICE VISIT Date of Service:??? 03/23/22 MR#: [id number] Acct: [id number] Name:??? MERRICK HODGES Rep #: [id number] : 1945 ???Provider: ???JESSICA Moreira Age/Sex:??? 76/M ???Location: [facility] Status: Signed with Addenda ADDENDUM by??? 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 transplanted heart:???muscogee heart??? Qualified Code(s):???I25.111 - 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 ?Comment: PTCA with stent of Ostium of first major dx 09/21/2003 ?Plan: His EKG from today demonstrated sinus rhythm, with heart rate of 62 bpm. (2) Stented coronary artery: ?Status:???Chronic ?Comment: 09/21/2003 PTCA and BENEDICT to ostium of first dx, Dr. Carbajal [facility] (3) Peripheral arterial disease: ?Status:???Chronic (4) Essential hypertension: ?Status:???Chronic (5) Hyperlipidemia: ?Status:???Chronic ?Qualifiers: ?Hyperlipidemia type:???unspecified??? Qualified Code(s):???E78.5 - Hyperlipidemia, unspecified (6) Fatigue: ?Status:???Acute (7) Palpitations: ?Status:???Acute ? Orders: Orders 12 Lead EKG performed by [facility] Today R00.2 - Palpita tions ??? Plan Details Follow Up: ? Keep as is (KRR) 03/23/22 1620 <Electronically signed by Franchesca Moreira FILM PROJECTOR OPERATOR FILM PROJECTOR OPERATOR-C> Date Franchesca Moreira NP FILM PROJECTOR OPERATOR-C cc:??? Dr. Bisi Martinez, DO * Signed HPI HPI History of Present Illness Surgical H P: Yes Details: This is a 76-year-old white male who presents today for an outpatient cardiovascular follow-up visit. He has a history of CAD status post PCI (2003-diagonal branch), PAD, hyperlipidemia, hypertension, superimposed upon diabetes mellitus. He did have lipid labs performed on 10-09-2021.??? His total cholesterol was 118 with an LDL of 53 and an HDL of 47.??? His triglycerides were 88. He continues to follow with Dr. Chávez peripheral vascular surgery for his PAD. Patient underwent a balloon angioplasty of the right common femoral artery into the femoral bypass graft with a 6 and 7 mm balloon on 11/12/[address] Chávez. He underwent an echocardiogram on 03/13/2022-results are noted below. His 15 day event monitor raised concerns with aberrancy versus nonsustained ventricular tachycardia. From a cardiac standpoint, the patient is doing well. He is accompanied by her . He denies any palpitations, chest pain, pressure or heaviness. He denies SOB, Orthopnea, and PND. He does not have bleeding issues; no blood in urine, stool or nosebleeds. He does acknowledge being tired all the time. He denies myalgias, or claudication.??? He does not have edema, or sudden weight gain. He denies dizziness, lightheadedness, syncopal or near syncopal episodes, and headaches. Intake Vital Signs ??? 03/23/2210:12 03/23/2210:16 Height 5 ft 10 in 5 ft 10 in Weight: 170 lb ??? BMI 24.3 ??? BP 140/82 H ??? Blood Pressure Location Lt brachial ??? Position Sitting ??? Respiration 18 ??? Pulse 65 ??? Pulse Source Monitor ??? Pulse Oximetry (%) 95 ??? Intake Visit Reasons:???update H P (okay per KR) Clinical Supervisor Required: No Is patient in pain?: No Allergies atorvastatin [From [employer]] Adverse Reaction (Intermediate, Verified 03/23/22 10:29) Myalgias Medications amlodipine 5 mg tablet 5 mg PO BID 04/16/17 [History Confirmed 03/23/22] fosinopril 20 mg tablet 20 mg PO DAILY 04/16/17 [History Confirmed 03/23/22] multivitamin 1 tab PO DAILY 04/16/17 [History Confirmed 03/23/22] aspirin 81 mg tablet,delayed release (Adult Aspirin Regimen) 81 mg PO QDAY 01/06/18 [History Confirmed 03/23/22] metformin 500 mg tablet 500 mg PO DAILY 09/19/20 [History Confirmed 03/23/22] gabapentin 600 mg tablet 600 mg PO BID 04/17/21 [History Confirmed 03/23/22] rosuvastatin 10 mg tablet 10 mg PO DAILY 10/17/21 [History Confirmed 03/23/22] clopidogrel 75 mg tablet 75 mg PO DAILY 01/26/22 [History Confirmed 03/23/22] metoprolol tartrate 50 mg tablet 50 mg PO BID 03/23/22 [History Confirmed 03/23/22] PFSH Medical History??? 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 History of left heart catheterization S/P femoral-femoral bypass surgery Family History???(Reviewed 03/23/22 @ 10:32 by Franchesca Moreira FILM PROJECTOR OPERATOR, FILM PROJECTOR OPERATOR-C) Father? ,??? of cancer Myocardial infarction,??? Onset Age: 70 CancerMother? ,??? age 66 Bleeding in brain due to brain aneurysmBrother Myocardial infarction,??? Onset Age: 62 CAD (coronary artery disease) Social History???(Reviewed 03/23/22 @ 10:32 by Franchesca Moreira FILM PROJECTOR OPERATOR, FILM PROJECTOR OPERATOR-C) Smoking Status:??? Former smoker how long ago did patient quit smoking:??? 2001 ROS Const Const: Positive for fatigue (tired all the time); Negative for weakness, fever(s), headache(s), chills, frequent falls, weight gain or weight loss Eyes Eyes: Negative for blind spots, loss of peripheral vision, transient loss of vision, blurry vision, change in vision, double vision, floaters or tunnel vision ENT ENT: Negative for headache(s), dizziness, Nosebleed/epistaxis, balance problems or neck pain Cardio Chest Pain: No Palpitations: No Edema: None Muscle aches with walking: None Resp Respiratory: Negative for SOB with activity, SOB at rest or SOB orthopnea SOB lying down GI GI: Negative nausea, vomiting, heartburn, bloating, vomiting blood/hematemesis, bright, red blood in stools or black,tarry stools Musc Musc: Negative for muscle aches/ myalgia, muscle weakness, joint pain or balance problems Neuro Neuro: Negative for dizziness, lightheadedness, near syncope, syncope, orthostatic symptoms, frequent falls, headache(s), weakness, blurry vision or double vision Artie Hematologic/Lymphatic: Negative for easy bleeding or easy bruising Endo Endo: Positive for fatigue (tired all the time) Cardiology Exam Const Appearance: cooperative and no acute distress Orientation: alert and oriented x3 Head Head: normal to inspection Ears: hearing grossly normal bilaterally Nose: external nose normal Face and Sinus: face symmetric Eyes General: appearance normal, both eyes and all related structures Eyelids: eyelids normal Conjunctivae: conjunctivae normal Pupils: PERRL and pupil size EOM: EOM intact bilaterally Neck Neck: normal visual inspection Carotids: Negative bruit Chest Chest inspection: normal inspection of the chest and normal respiratory effort Auscultation: Bilateral: Clear to Auscultation Cardio Palpation: normal PMI Rate: regular rate Rhythm: regular rhythm Heart sounds: S1 normal and S2 normal; Negative rub, gallop or murmur GI GI: normal to inspection and soft; Negative no hepatosplenomegaly Neuro General: patient alert, patient oriented x3 and CN's II-XI intact bilaterally Skin Skin: no rashes or lesions noted Extremities Pulses: Normal: Right Posterior Tibial Pulse, Left Posterior Tibial Pulse, Right Radial Pulse and Left Radial Pulse Lower Extremity Edema: None: Bilateral Psych Psychological: normal affect Supplemental Info Supplemental Information Echocardiogram 03/13/2022: Interpretation Summary Left ventricular systolic function is normal. The estimated ejection fraction is 65 %. Hypermobile atrial septum. Trivial mitral valve insufficiency. Mild tricuspid valve insufficiency. Trivial pulmonic valve insufficiency. Right ventricular systolic pressure estimated to be 31 mmHg. No evidence for diastolic dysfunction. Bubble contrast study negative for right to left interatrial shunt. Stress test 10/30/2021: Interpretation: Rest and stress SPECT Cardiolite nuclear imaging status post realignment and normalization demonstrate at rest the appearance of a small area of subtle diminished tracer uptake in the mid inferior segments which appears to improve/normalize following stress.??? There is end systolic thickening and brightening.??? The gated Cardiolite study demonstrates myocardial thickening and inward wall motion.??? The reported LVEF is 69%. Impression: 1.??? Rest and stress SPECT current nuclear imaging demonstrate myocardial perfusion changes compatible with shifting soft tissue attenuation/artifact which appears to be more prominent at rest as opposed to stress with no myocardial perfusion changes considered diagnostic for associated stress-induced myocardial ischemia. 2.??? The gated Cardiolite study reports an LVEF of 69%. Stress Test 05/2018: Pharmacologic myocardial perfusion stress test. 72-year-old man with a history of coronary artery disease status post angioplasty and stenting 15 years ago. Medications: Metoprolol rosuvastatin fosinopril amlodipine baby aspirin. Stress protocol: Resting EKG demonstrates normal sinus rhythm with a rate of 72 bpm normal intervals are noted resting blood pressure is 154/84 mmHg.??? 0.4 mg of regadenoson was infused per usual protocol followed by rapid intravenous saline flush injection continuous EKG monitoring was performed.??? The maximum heart rate attained was 102 bpm which was 68% of maximum predicted heart rate the maximum workload was 1 metabolic equivalent.??? There were no ST or T wave changes noted to suggest abnormal flow reserve. Resting blood pressure was 154/84 final blood pressure was 150/80 mmHg. Myocardial perfusion protocol. 12.0 mCi of technetium 99m sestamibi was injected at rest.??? 0.4 mg of regadenoson was infused per usual protocol.??? At peak infusion 34.6 mCi of technetium 99m sestamibi was injected stress images were obtained stress and rest images were reconstructed and compared in the short axis vertical long and horizontal long axis.??? Gated images were also obtained Perfusion SPECT analysis: Review of the stress images demonstrate normal uptake of tracer noted in all areas of the myocardium.??? The resting images similarly demonstrate normal uptake of tracer noted in all areas of the myocardium.??? No areas of reversibility are noted suggest ischemia no previous infarct is noted. Gated SPECT analysis: The gated ejection fraction is noted to be 70%. Conclusion: Normal pharmacologic myocardial perfusion stress test. Preserved ejection fraction. Labs: ? LDL Cholesterol 53 mg/dL (0-130) ? HDL Cholesterol 47 mg/dL (40-) ? Triglycerides 88 mg/dL (-199) ? VLDL Cholesterol 18 mg/dL (5-40) Diagnostics: ? Electrocardiogram ? Echocardiogram ? Stress Test NM ? Stress Test ??? Pulmonary: ? 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 transplanted heart:???muscogee heart??? Qualified Code(s):???I25.111 - 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 ?Comment: PTCA with stent of Ostium of firts major dx 09/21/2003 ?Plan: Patient has a history of coronary artery disease with stent placement in 2003.??? His most recent stress test from 10/30/2021 was negative for ischemia. He appears stable at this time. He does have concerns of fatigue. He will undergo a cardiac catheterization with Dr. Smith on 03/31. Cardiac catheterization instructions given to patient, and he verbalizes understanding. He will continue with his current medical therapy, along with aggressive risk factor and lifestyle modifications. (2) Stented coronary artery: ?Status:???Chronic ?Comment: 09/21/2003 PTCA and BENEDICT to ostium of first dx, Dr. Carbajal, [facility] ?Plan: Patient has a history of coronary artery disease with stent placement in 2003.??? His most recent stress test from 10/30/2021 was negative for ischemia. This was reviewed with him. He appears stable at this time. He does have concerns of fatigue. He will undergo a cardiac catheterization with Dr. Smith on 03/31. Cardiac catheterization instructions given to patient, and he verbalizes understanding. He will continue with his current medical therapy, along with aggressive risk factor and lifestyle modifications. (3) Peripheral arterial disease: ?Status:???Chronic ?Plan: Patient has a history of peripheral arterial disease.??? He does follow with Dr. Chávez for this. (4) Essential hypertension: ?Status:???Chronic ?Plan: Patient has a history of hypertension.??? His blood pressure is slightly elevated in the office today. He states his blood pressures at home average 120/70-80's.??? He will continue with his current medical therapy, along with monitoring blood pressures at home.??? He will notify our office of any persistent high or low blood pressure readings. (5) Hyperlipidemia: ?Status:???Chronic ?Qualifiers: ?Hyperlipidemia type:???unspecified??? Qualified Code(s):???E78.5 - Hyperlipidemia, unspecified ?Plan: Patient has a history of hyperlipidemia.??? His most recent lipid panel from 10/09/2021: Cholesterol 118, HDL 47, LDL 53, triglycerides 88.??? He will continue with rosuvastatin 10 mg daily, along with aggressive risk factor and lifestyle modifications. (6) Fatigue: ?Status:???Acute ?Plan: He continues to have complaints of fatigue. His most recent stress test from 10/2021 was negative for ischemia. His most recent CBC was wnl. He will undergo a cardiac catheterization to evaluate this. (7) Palpitations: ?Status:???Acute ?Plan: Patient's 15 day event monitor raised concerns for aberrancy versus nonsustained ventricular tachycardia. Patient will undergo a cardiac catheterization on 03/[address] Smith. Cardiac catheterization instructions given to patient, and he verbalized understanding. ? Orders: Orders 12 Lead EKG performed by [facility] R00.2 - Palpita tions ??? Plan Details Additional Comments: Patient will follow up in 1 month, or sooner if needed. Thank you for allowing me to participate in the care of your patient. Please don't hesitate to call if any issues arise. This note was generated using a voice recognition system and there may be incorrect words, spelling, or punctuation that were not noted when reviewing the office note prior to saving. Portions of this documentation were copied and pasted from previous office visit notes to provide a cohesive continuity of the history. The note has been reviewed, edited, and updated, as necessary. Follow Up: ? Keep as is (KRR) COVID (Procedure Consent) Procedure Criteria Procedure Criteria: Yes Elective The surgeon/proceduralist and patient have discussed in detail the risk of exposure to and/or potential harm posed by the COVID-19 virus with having a surgery/procedure at this time versus the risk of??? delaying the surgery/procedure. It is not possible to know either the risk of delaying the surgery or procedure or chance of getting an infection with perfect accuracy, but a joint decision was made between the patient and the surgeon/proceduralist ???to proceed at this time with the scheduled surgery/procedure as indicated on the consent form. 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 I25.111 ? [place] vs. transplanted heart: muscogee heart Stented coronary artery??? Z95.5 Peripheral arterial disease??? I73.9 Essential hypertension??? I10 Hyperlipidemia??? E78.5 ? Hyperlipidemia type: unspecified Fatigue??? R53.83 Palpitations??? R00.2 Coding Level of Care Code Off vis,est,level 3 Diagnoses 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??? I25.111 ? [place] vs. transplanted heart: muscogee heart Stented coronary artery??? Z95.5 Peripheral arterial disease??? I73.9 Essential hypertension??? I10 Hyperlipidemia??? E78.5 ? Hyperlipidemia type: unspecified Fatigue??? R53.83 Palpitations??? R00.2 03/23/22 1620 <Electronically signed by Franchesca AKBARC> Date Franchesca AKBARC Cosigner Signature: Date (if applicable) CC:??? Dr. Bisi Martinez, DO Assessment Plan Addt'l Comments I have re-examined the patient. There are no clinical changes since date of exam. This note was generated using a voice recognition system and there may be incorrect words, spelling or punctuation that were not noted when reviewing the office note prior to saving. 03/31/22 0910 <Electronically signed by Perez Smith MD> Cosigner Signature (if applicable): CC: Dr. Bisi Martinez DO; Dr. Perez Smith MD Signed Bisi Martinez DO Work Phone: Start: 03-23-2022 Plain chest X-ray Dr. Bisi Martinez Work Phone: Start: 03-23-2022 End: 03-23-2022 Procedure Note: See Note; NOTES: [facility] Imaging Services [address] [place] [id number] Chest PA and Lateral MR#: [id number] Acct: [id number] Name: MERRICK HODGES Rep #: [id number] : 1945 M 76 From: Amado Reaves MD PCP: Dr. Bisi Martinez DO Status: PRE SDC Study: Chest PA and Lateral Date of Exam: 03/23/22 Exam# [id number] Ordering Dr: Perez Smith MD STUDY: X-RAY CHEST REASON FOR EXAM: Male, 76 years old. Pre Procedure Exam TECHNIQUE: PA or AP and lateral. COMPARISON: None. FINDINGS: Minimal bibasilar fibrosis or less likely atelectasis. Mid and upper lungs are clear. There is minimal biapical pleural thickening. Normal size heart. Normal mediastinum and shelby. Normal visualized pulmonary arteries. Normal visualized aortic arch and descending thoracic aorta. Mild degenerative changes mid and lower thoracic spine. Normal visualized ribs, clavicles, and shoulders. There is no demonstrated abnormality of the visualized soft tissue structures of the upper abdomen. RAD/Chest PA and Lateral IMPRESSION: Minimal bibasilar fibrosis or less likely atelectasis. Minimal biapical pleural thickening. Mild degenerative change mid and lower thoracic spine. Electronically Signed: Amado Reaves MD, KATTY at 11:25 EDT , CC: Dr. Bisi Martinez DO; Dr. Perez Smith MD Hook Puller: Signed Bisi Martinez DO Work Phone: Start: 03-23-2022 End: 03-23-2022 Procedure Note: See Note; NOTES: [facility] [address] [place] [address]. [address] [place] [address] OFFICE VISIT Date of Service: 03/23/22 MR#: [id number] Acct: [id number] Name: MERRICK HODGES Rep #: [id number] : 1945 Provider: JESSICA Edwards rts Age/Sex: 76/M Location: [facility] Status: Signed HPI HPI History of Present Illness Surgical H P: Yes Details: This is a 76-year-old white male who presents today for an outpatient cardiovascular follow-up visit. He has a history of CAD status post PCI (2003-diagonal branch), PAD, hyperlipidemia, hypertension, superimposed upon diabetes mellitus. He did have lipid labs performed on 10-09-2021. His total cholesterol was 118 with an LDL of 53 and an HDL of 47. His triglycerides were 88. He continues to follow with Dr. Chávez peripheral vascular surgery for his PAD. Patient underwent a balloon angioplasty of the right common femoral artery into the femorofemoral bypass graft with a 6 and 7 mm balloon on 11/12/[address] Chávez. He underwent an echocardiogram on 03/13/2022-results are noted below. His 15 day event monitor raised concerns with aberrancy versus nonsustained ventricular tachycardia. From a cardiac standpoint, the patient is doing well. He is accompanied by her . He denies any palpitations, chest pain, pressure or heaviness. He denies SOB, Orthopnea, and PND. He does not have bleeding issues; no blood in urine, stool or nosebleeds. He does acknowledge being tired all the time. He denies myalgias, or claudication. He does not have edema, or sudden weight gain. He denies dizziness, lightheadedness, syncopal or near syncopal episodes, and headaches. Intake Vital Signs 03/23/22 10:12 03/23/22 10:16 Height 5 ft 10 in 5 ft 10 in Weight: 170 lb BMI 24.3 BP 140/82 H Blood Pressure Location Lt brachial Position Sitting Respiration 18 Pulse 65 Pulse Source Monitor Pulse Oximetry (%) 95 Intake Visit Reasons: update H P (okay per KR) Clinical Supervisor Required: No Is patient in pain?: No Allergies atorvastatin [From [employer]] Adverse Reaction (Intermediate, Verified 03/23/22 10:29) Myalgias Medications amlodipine 5 mg tablet 5 mg PO BID 04/16/17 [History Confirmed 03/23/22] fosinopril 20 mg tablet 20 mg PO DAILY 04/16/17 [History Confirmed 03/23/22] multivitamin 1 tab PO DAILY 04/16/17 [History Confirmed 03/23/22] aspirin 81 mg tablet,delayed release (Adult Aspirin Regimen) 81 mg PO QDAY 01/06/18 [History Confirmed 03/23/22] metformin 500 mg tablet 500 mg PO DAILY 09/19/20 [History Confirmed 03/23/22] gabapentin 600 mg tablet 600 mg PO BID 04/17/21 [History Confirmed 03/23/22] rosuvastatin 10 mg tablet 10 mg PO DAILY 10/17/21 [History Confirmed 03/23/22] clopidogrel 75 mg tablet 75 mg PO DAILY 01/26/22 [History Confirmed 03/23/22] metoprolol tartrate 50 mg tablet 50 mg PO BID 03/23/22 [History Confirmed 03/23/22] [facility] Medical History (Reviewed 03/23/22 @ 10:32 by Franchesca Moreira FILM PROJECTOR OPERATOR, FILM PROJECTOR OPERATOR-C) 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 Chronic back pain Essential hypertension History of non-ST elevation myocardial infarction (NSTEMI) Hyperlipidemia Hypertension Lumbar stenosis NSVT (nonsustained ventricular tachycardia) Overweight (BMI 25.0-29.9) Peripheral arterial disease Prinzmetal angina Type 2 diabetes mellitus Surgical History (Reviewed 03/23/22 @ 10:32 by Franchesca Moreira FILM PROJECTOR OPERATOR, FILM PROJECTOR OPERATOR-C) History of left heart catheterization S/P femoral-femoral bypass surgery Family History Father , of cancer Myocardial infarction, Onset Age: 70 Cancer Mother , age 66 Bleeding in brain due to brain aneurysm Brother Myocardial infarction, Onset Age: 62 CAD (coronary artery disease) Social History Smoking Status: Former smoker how long ago did patient quit smokin ROS Const Const: Positive for fatigue (tired all the time); Negative for weakness, fever(s), headache(s), chills, frequent falls, weight gain or weight loss Eyes Eyes: Negative for blind spots, loss of peripheral vision, transient loss of vision, blurry vision, change in vision, double vision, floaters or tunnel vision ENT ENT: Negative for headache(s), dizziness, Nosebleed/epistaxis, balance problems or neck pain Cardio Chest Pain: No Palpitations: No Edema: None Muscle aches with walking: None Resp Respiratory: Negative for SOB with activity, SOB at rest or SOB orthopnea SOB lying down GI GI: Negative nausea, vomiting, heartburn, bloating, vomiting blood/hematemesis, bright, red blood in stools or black,tarry stools Musc Musc: Negative for muscle aches/ myalgia, muscle weakness, joint pain or balance problems Neuro Neuro: Negative for dizziness, lightheadedness, near syncope, syncope, orthostatic symptoms, frequent falls, headache(s), weakness, blurry vision or double vision Artie Hematologic/Lymphatic: Negative for easy bleeding or easy bruising Endo Endo: Positive for fatigue (tired all the time) Cardiology Exam Const Appearance: cooperative and no acute distress Orientation: alert and oriented x3 Head Head: normal to inspection Ears: hearing grossly normal bilaterally Nose: external nose normal Face and Sinus: face symmetric Eyes General: appearance normal, both eyes and all related structures Eyelids: eyelids normal Conjunctivae: conjunctivae normal Pupils: PERRL and pupil size EOM: EOM intact bilaterally Neck Neck: normal visual inspection Carotids: Negative bruit Chest Chest inspection: normal inspection of the chest and normal respiratory effort Auscultation: Bilateral: Clear to Auscultation Cardio Palpation: normal PMI Rate: regular rate Rhythm: regular rhythm Heart sounds: S1 normal and S2 normal; Negative rub, gallop or murmur GI GI: normal to inspection and soft; Negative no hepatosplenomegaly Neuro General: patient alert, patient oriented x3 and CN's II-XI intact bilaterally Skin Skin: no rashes or lesions noted Extremities Pulses: Normal: Right Posterior Tibial Pulse, Left Posterior Tibial Pulse, Right Radial Pulse and Left Radial Pulse Lower Extremity Edema: None: Bilateral Psych Psychological: normal affect Supplemental Info Supplemental Information Echocardiogram 03/13/2022: Interpretation Summary Left ventricular systolic function is normal. The estimated ejection fraction is 65 %. Hypermobile atrial septum. Trivial mitral valve insufficiency. Mild tricuspid valve insufficiency. Trivial pulmonic valve insufficiency. Right ventricular systolic pressure estimated to be 31 mmHg. No evidence for diastolic dysfunction. Bubble contrast study negative for right to left interatrial shunt. Stress test 10/30/2021: Interpretation: Rest and stress SPECT Cardiolite nuclear imaging status post realignment and normalization demonstrate at rest the appearance of a small area of subtle diminished tracer uptake in the mid inferior segments which appears to improve/normalize following stress. There is end systolic thickening and brightening. The gated Cardiolite study demonstrates myocardial thickening and inward wall motion. The reported LVEF is 69%. Impression: 1. Rest and stress SPECT current nuclear imaging demonstrate myocardial perfusion changes compatible with shifting soft tissue attenuation/artifact which appears to be more prominent at rest as opposed to stress with no myocardial perfusion changes considered diagnostic for associated stress-induced myocardial ischemia. 2. The gated Cardiolite study reports an LVEF of 69%. Stress Test 05/2018: Pharmacologic myocardial perfusion stress test. 72-year-old man [...] myocardial perfusion stress test. Preserved ejection fraction. Labs: LDL Cholesterol 53 mg/dL (0-130) HDL Cholesterol 47 mg/dL (40-) Triglycerides 88 mg/dL (-199) VLDL Cholesterol 18 mg/dL (5-40) Diagnostics: Electrocardiogram Echocardiogram Stress Test NM Stress Test Pulmonary: No Data to Display Assessment and Plan Assessment and Plan (1) 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 His most recent stress test from 10/30/2021 was negative for ischemia. He appears stable at this time. He does have concerns of fatigue. He will undergo a cardiac catheterization with Dr. Smith on 03/31. Cardiac catheterization instructions given to patient, and he verbalizes understanding. He will continue with his current medical therapy, along with aggressive risk factor and lifestyle modifications. (2) Stented coronary artery: Status: Chronic Comment: 09/21/2003 PTCA and BENEDICT to ostium of first dx, Dr. Carbajal, [facility] Plan: Patient has a history of coronary artery disease with stent placement in 2003. His most recent stress test from 10/30/2021 was negative for ischemia. This was reviewed with him. He appears stable at this time. He does have concerns of fatigue. He will undergo a cardiac catheterization with Dr. Smith on 03/31. Cardiac catheterization instructions given to patient, and he verbalizes understanding. He will continue with his current medical therapy, along with aggressive risk factor and lifestyle modifications. (3) Peripheral arterial disease: Status: Chronic Plan: Patient has a history of peripheral arterial disease. He does follow with Dr. Chávez for this. (4) Essential hypertension: Status: Chronic Plan: Patient has a history of hypertension. His blood pressure is slightly elevated in the office today. He states his blood pressures at home average 120/70-80's. He will continue with his current medical therapy, along with monitoring blood pressures at home. He will notify our office of any persistent high or low blood pressure readings. (5) Hyperlipidemia: Status: Chronic Qualifiers: Hyperlipidemia type: unspecified Qualified Code(s): E78.5 - Hyperlipidemia, unspecified Plan: Patient has a history of hyperlipidemia. His most recent lipid panel from 10/09/2021: Cholesterol 118, HDL 47, LDL 53, triglycerides 88. He will continue with rosuvastatin 10 mg daily, along with aggressive risk factor and lifestyle modifications. (6) Fatigue: Status: Acute Plan: He continues to have complaints of fatigue. His most recent stress test from 10/2021 was negative for ischemia. His most recent CBC was wnl. He will undergo a cardiac catheterization to evaluate this. (7) Palpitations: Status: Acute Plan: Patient's 15 day event monitor raised concerns for aberrancy versus nonsustained ventricular tachycardia. Patient will undergo a cardiac catheterization on 03/[address] Smith. Cardiac catheterization instructions given to patient, and he verbalized understanding. Orders: Orders 12 Lead E[place] performed [place] [facility] [place] R00.2 - Palpitations Plan Details Additional Comments: Patient will follow up in 1 month, or sooner if needed. Thank you for allowing me to participate in the care of your patient. Please don't hesitate to call if any issues arise. This note was generated using a voice recognition system and there may be incorrect words, spelling, or punctuation that were not noted when reviewing the office note prior to saving. Portions of this documentation were copied and pasted from previous office visit notes to provide a cohesive continuity of the history. The note has been reviewed, edited, and updated, as necessary. Follow Up: Keep as is (KRR) COVID (Procedure Consent) Procedure Criteria Procedure Criteria: Yes Elective The surgeon/proceduralist and patient have discussed in detail the risk of exposure to and/or potential harm posed by the COVID-19 virus with having a surgery/procedure at this time versus the risk of??? delaying the surgery/procedure. It is not possible to know either the risk of delaying the surgery or procedure or chance of getting an infection with perfect accuracy, but a joint decision was made between the patient and the surgeon/proceduralist ???to proceed at this time with the scheduled surgery/procedure as indicated on the consent form. Coding Level of Care Code Off vis,est,level 3 Diagnoses 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 I25.111 [place] vs. transplanted heart: muscogee heart Stented coronary artery Z95.5 Peripheral arterial disease I73.9 Essential hypertension I10 Hyperlipidemia E78.5 Hyperlipidemia type: unspecified Fatigue R53.83 Palpitations R00.2 Coding Level of Care Code Off vis,est,level 3 Diagnoses 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 I25.111 [place] vs. transplanted heart: mus[place]ee heart Stented coronary artery Z95.5 Peripheral arterial disease I73.9 Essential hypertension I10 Hyperlipidemia E78.5 Hyperlipidemia type: unspecified Fatigue R53.83 Palpitations R00.2 03/23/22 1620 <Electronically signed by Franchesca LOPEZ> Date Franchesca LOPEZ Cosigner Signature: Date (if applicable) CC: Dr. Bisi Martinez, DO Bisi Martinez DO Work Phone: Start: 03-23-2022 End: 03-24-2022 Procedure Note: See Note; NOTES: [address] [place] [address] 12 Lead EKG performed by [facility] 03/23/22 0952 MR#: [id number] Acct: [id number] Name: MERRICK HODGES Rep #: [id number] : 1945 76 From: Franchesca Moreira NP FILM PROJECTOR OPERATOR-C Attending Dr: RAFFY BeaversC Status: FREDO SORTO Ordering Dr: Franchesca Moreira NP FILM PROJECTOR OPERATOR-C Date: 03/23/22 [place] [facility] [place] Sex: M C Admitted: BMS/12 Lead EKG performed by [facility] ECG Report Interpretation --Sinus Rhythm Electronically signed on 03/24/2022 at 23:02 by Perez Smith Software Version [id number] 03/24/226 Date Franchesca Moreira NP FILM PROJECTOR OPERATOR-C CC: Dr. Bisi Martinez DO Date Dictated: 03/23/22951 Date Transcribed: 03/23/22951 Hook Puller: NABEEL Martinez DO Work Phone: Start: 03-13-2022 End: 03-13-2022 Procedure Note: See Note; NOTES: [facility] Cardi[facility] Services [address] [place] [id number] Echo Complete 03/13/22956 MR#: [id number] Acct: [id number] Name: MERRICK HODGES Rep #: [id number] : 1945 76 From: Perez Smith MD Attending Dr: Dr. Perez Smith MD Status: BARBARA G CLI Ordering Dr: Perez Smith MD Date: 03/13/22 Location: [facility] Sex: M C Admitted: Reason For Study: CAD/ASHD Procedure This was a 2D Doppler, Color Flow transthoracic echocardiogram. The exam was of adequate technical quality. Exam performed in department. Left Ventricle Normal LV size. Left ventricular systolic function is normal. The estimated ejection fraction is 65 %. No evidence for diastolic dysfunction. No regional wall motion abnormalities noted. Right Ventricle Normal RV size. Normal systolic function. Atria Normal left atrium. Normal right atrium. Hypermobile atrial septum. No doppler evidence for ASD. Bubble contrast study negative for right to left interatrial shunt. Mitral Valve There is no mitral annular calcification. Normal mitral valve. Trivial mitral valve insufficiency. Tricuspid Valve Normal tricuspid valve. Mild tricuspid valve insufficiency. Right ventricular systolic pressure estimated to be 31 mmHg. Aortic Valve Trisinus/trileaflet aortic valve. Normal aortic valve. Pulmonic Valve The pulmonic valve is not well visualized. Trivial pulmonic valve insufficiency. Great Vessels Normal sized aortic root. Pericardium/Pleural No pericardial effusion. Medication Performed a rapid injection of agitated mix of 9 cc saline and 1cc air to assess for atrial septal defect. MMode/2D Measurements Calculations LVIDd: 4.7 cm IVSd: 0.92 cm Ao root diam: 3.3 cm LVIDs: 2.6 cm LVPWd: 0.96 cm RVDd: 2.9 cm FS: 45.2 % LAV(MOD-bp): 35.8 ml LVAd ap4: 21.8 cm2 SV(MOD-sp4): 36.1 ml LAV(MOD-bp) Indexed: 18.6 ml/m2 LVLd ap4: 7.8 cm LAV(MOD-sp2): 33.3 ml EDV(MOD-sp4): 52.7 ml LAV(MOD-sp4): 34.2 ml EDV(sp4-el): 51.7 ml LVAs ap4: 10.6 cm2 LVLs ap4: 6.1 cm ESV(MOD-sp4): 16.6 ml ESV(sp4-el): 15.8 ml EF(MOD-sp4): 68.4 % EF(sp4-el): 69.5 % SV(sp4-el): 35.9 ml LA A4 area: 14.0 cm2 LA dimension(2D): 4.1 cm RA A4 area: 12.0 cm2 Doppler Measurements Calculations MV E max jose francisco: 67.5 cm/sec Lat Peak E' Jose Francisco: 13.4 cm/sec Med Peak E' Jose Francisco: 6.3 cm/sec MV A max jose francisco: 84.9 cm/sec E/E' lat: 5.1 E/E' med: 10.7 MV E/A: 0.80 Ao V2 max: 116.7 cm/sec LV V1 max: 91.3 cm/sec PA V2 max: 87.7 cm/sec Ao max P.4 mmHg LV V1 max P.3 mmHg Ao V2 mean: 83.9 cm/sec Ao mean P.0 mmHg Ao V2 VTI: 27.6 cm TR max jose francisco: 263.0 cm/sec TR max P.7 mmHg ECHO/Echo Complete Interpretation Summary Left ventricular systolic function is normal. The estimated ejection fraction is 65 %. Hypermobile atrial septum. Trivial mitral valve insufficiency. Mild tricuspid valve insufficiency. Trivial pulmonic valve insufficiency. Right ventricular systolic pressure estimated to be 31 mmHg. No evidence for diastolic dysfunction. Bubble contrast study negative for right to left interatrial shunt. Ordering Physician: Perez Smiht Referring Physician: Bisi Martinez Performed By: Paola Quigley, RACHEL, RVT 03/13/22 1544 Date Perez Smith MD CC: Dr. Bisi Martinez DO; Dr. Perez Smith MD Date Dictated: 03/13/22956 Date Transcribed: 03/13/221543 Hook Puller: Shyam Martinez DO Work Phone: Start: 01-29-2022 MRI of lumbar spine Dr. Bisi Martinez Work Phone: Start: 01-29-2022 End: 01-29-2022 Procedure Note: See Note; NOTES: [facility] Imaging Services [address] [place] [address] Spine Lumbar (Routine) MR#: [id number] Acct: [id number] Name: MERRICK HODGES Rep #: [id number] : 1945 M 76 From: Nadeem Calderon MD PCP: Dr. Bisi Martinez DO Status: REG CLI Study: Spine Lumbar (Routine) Date of Exam: 01/29/22 Exam# [id number] Ordering Dr: Boswell,Robby DO EXAM: MR LUMBAR SPINE WITHOUT INTRAVENOUS CONTRAST CLINICAL INDICATION: STENOSIS,POST LAMINECTOMY,SPONDYLOSIS TECHNIQUE: Multiplanar and multisequence MR images of the lumbar spine without intravenous contrast. This report was created using [employer] report [employer] technology. COMPARISON: MR Lumbar Spine dated 03/04/2017 FINDINGS: VERTEBRAE: Normal. Vertebral body heights are preserved. Normal vertebral bodies and posterior elements. Normal alignment. No spondylolisthesis. There is preservation of the normal lumbar lordosis. SPINAL CORD: Normal. Normal position and signal intensity of the conus medullaris. SOFT TISSUES: Normal. DISCS/SPINAL CANAL/NEURAL FORAMINA: L1-2: Disc space narrowing. Mild disc osteophyte complex and facet arthropathy causes minor impression on the thecal sac and mild narrowing of the right neural foramen. Normal spinal canal and lateral recesses. L2-3: Disc space narrowing. No disc protrusion. Facet arthropathy causes mild right and moderate left neural foraminal narrowing. Normal spinal canal and lateral recesses. L3-4: No significant disc space narrowing. No disc herniation. Facet arthropathy causes mild to moderate neural foraminal narrowing bilaterally. Normal spinal canal and lateral recesses. L4-5: No disc space narrowing or disc protrusion. Posterior ligamentous redundancy and facet arthropathy result in moderate narrowing of the neural foramina and minor impression on the thecal sac. Normal spinal canal and lateral recesses. L5-S1: Interval placement of bilateral interpedicular screws with virtual complete loss of the disc space. No disc protrusion or spinal stenosis. Neuroforamina are not well evaluated due to artifacts related to the surgical hardware. MRI/Spine Lumbar (Routine) IMPRESSION: 1. Interval surgical fixation of L5 and S1 with interpedicular screws. 2. No spinal stenosis. 3. No foraminal narrowing as described mostly related to facet arthropathy. Electronically Signed: Nadeem Calderon MD at 15:48 EDT , CC: Dr. Robby Boswell DO; Dr. Bisi Martinez DO Hook Puller: Signed Bisi Martinez DO Work Phone: Start: 01-26-2022 End: 01-26-2022 Procedure Note: See Note; NOTES: [facility] [address] [place] [address] OFFICE VISIT Date of Service: 01/26/22 MR#: [id number] Acct: [id number] Name: MERRICK HODGES Rep #: [id number] : 1945 Provider: JESSICA Edwards rts Age/Sex: 76/M Location: [facility] Status: Signed HPI HPI History of Present Illness Details: This is a 76-year-old white male who presents today for an outpatient cardiovascular follow-up visit. He has a history of CAD status post PCI (2003-diagonal branch), PAD, hyperlipidemia, hypertension, superimposed upon diabetes mellitus. He did have lipid labs performed on 10-09-2021. His total cholesterol was 118 with an LDL of 53 and an HDL of 47. His triglycerides were 88. He continues to follow with Dr. Chávez peripheral vascular surgery for his PAD. Patient underwent a balloon angioplasty of the right common femoral artery into the femorofemoral bypass graft with a 6 and 7 mm balloon on 11/12/[address] Chávez. From a cardiac standpoint, the patient is doing well. He continues to have an occasional palpitations. He describes this as a skipped beat. This does not occur daily. He denies chest pain, pressure or heaviness. He denies SOB, Orthopnea, and PND. He does not have bleeding issues; no blood in urine, stool or nosebleeds. He continues to be fatigued. He denies myalgias, or claudication. He does not have edema, or sudden weight gain. He denies dizziness, lightheadedness, syncopal or near syncopal episodes, and headaches. Intake Vital Signs 10/17/21 08:21 11/12/21 07:07 01/26/22 08:48 01/26/22 08:48 Height 5 ft 10 in 5 ft 10 in 5 ft 10 in 5 ft 10 in Weight: 164 lb 168 lb BMI 24.0 BP 120/74 Blood Pressure Location Lt brachial Position Sitting Respiration 18 Pulse 63 Pulse Source Monitor Pulse Oximetry (%) 96 Intake Visit Reasons: 3 M FU Is patient in pain?: No Allergies atorvastatin [From Lipitor] Adverse Reaction (Intermediate, Verified 01/26/22 08:59) Myalgias Medications amlodipine 5 mg tablet 5 mg PO BID 04/16/17 [History Confirmed 01/26/22] fosinopril 20 mg tablet 20 mg PO DAILY 04/16/17 [History Confirmed 01/26/22] multivitamin 1 tab PO DAILY 04/16/17 [History Confirmed 01/26/22] aspirin 81 mg tablet,delayed release (Adult Aspirin Regimen) 81 mg PO QDAY 01/06/18 [History Confirmed 01/26/22] metformin 500 mg tablet 500 mg PO DAILY 09/19/20 [History Confirmed 01/26/22] metoprolol tartrate 25 mg tablet 25 mg PO BID 09/19/20 [History Confirmed 01/26/22] gabapentin 600 mg tablet 600 mg PO BID 04/17/21 [History Confirmed 01/26/22] rosuvastatin 10 mg tablet 10 mg PO DAILY 10/17/21 [History Confirmed 01/26/22] clopidogrel 75 mg tablet 75 mg PO DAILY 01/26/22 [History Confirmed 01/26/22] [facility] Medical History 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 Chronic back pain Essential hypertension History of non-ST elevation myocardial infarction (NSTEMI) Hyperlipidemia Hypertension Lumbar stenosis Overweight (BMI 25.0-29.9) Peripheral arterial disease Prinzmetal angina Type 2 diabetes mellitus Surgical History History of left heart catheterization S/P femoral-femoral bypass surgery Family History Father , of cancer Myocardial infarction, Onset Age: 70 Cancer Mother , age 66 Bleeding in brain due to brain aneurysm Brother Myocardial infarction, Onset Age: 62 CAD (coronary artery disease) Social History Smoking Status: Former smoker how long ago did patient quit smokin ROS Const Const: Positive for fatigue; Negative for weakness, fever(s), headache(s), chills, frequent falls, weight gain or weight loss Eyes Eyes: Negative for blind spots, loss of peripheral vision, transient loss of vision, blurry vision, change in vision, double vision, floaters or tunnel vision ENT ENT: Negative for headache(s), dizziness, Nosebleed/epistaxis, balance problems or neck pain Cardio Chest Pain: No Palpitations: Yes (occasional) feels like its: skipping Edema: None Muscle aches with walking: None Resp Respiratory: Negative for SOB with activity, SOB at rest or SOB orthopnea SOB lying down GI GI: Negative nausea, vomiting, heartburn, bloating, vomiting blood/hematemesis, bright, red blood in stools or black,tarry stools Musc Musc: Negative for muscle aches/ myalgia, muscle weakness, joint pain or balance problems Neuro Neuro: Negative for dizziness, lightheadedness, near syncope, syncope, orthostatic symptoms, frequent falls, headache(s), weakness, blurry vision or double vision Artie Hematologic/Lymphatic: Negative for easy bleeding or easy bruising Endo Endo: Positive for fatigue Cardiology Exam Const Appearance: cooperative and no acute distress Orientation: alert and oriented x3 Head Head: normal to inspection Ears: hearing grossly normal bilaterally Nose: external nose normal Face and Sinus: face symmetric Eyes General: appearance normal, both eyes and all related structures Eyelids: eyelids normal Conjunctivae: conjunctivae normal Pupils: PERRL and pupil size EOM: EOM intact bilaterally Neck Neck: normal visual inspection Carotids: Negative bruit Chest Chest inspection: normal inspection of the chest and normal respiratory effort Auscultation: Bilateral: Clear to Auscultation Cardio Palpation: normal PMI Rate: regular rate Rhythm: regular rhythm Heart sounds: S1 normal and S2 normal; Negative rub, gallop or murmur GI GI: normal to inspection and soft; Negative no hepatosplenomegaly Neuro General: patient alert, patient oriented x3 and CN's II-XI intact bilaterally Skin Skin: no rashes or lesions noted Extremities Pulses: Normal: Right Posterior Tibial Pulse, Left Posterior Tibial Pulse, Right Radial Pulse and Left Radial Pulse Lower Extremity Edema: None: Bilateral Psych Psychological: normal affect Supplemental Info Supplemental Information Stress test 10/30/2021: Interpretation: Rest and stress SPECT Cardiolite nuclear imaging status post realignment and normalization demonstrate at rest the appearance of a small area of subtle diminished tracer uptake in the mid inferior segments which appears to improve/normalize following stress. There is end systolic thickening and brightening. The gated Cardiolite study demonstrates myocardial thickening and inward wall motion. The reported LVEF is 69%. Impression: 1. Rest and stress SPECT current nuclear imaging demonstrate myocardial perfusion changes compatible with shifting soft tissue attenuation/artifact which appears to be more prominent at rest as opposed to stress with no myocardial perfusion changes considered diagnostic for associated stress-induced myocardial ischemia. 2. The gated Cardiolite study reports an LVEF of 69%. Stress Test 05/2018: Pharmacologic myocardial perfusion stress test. 72-year-old man [...] myocardial perfusion stress test. Preserved ejection fraction. Labs: LDL Cholesterol 53 mg/dL (0-130) HDL Cholesterol 47 mg/dL (40-) Triglycerides 88 mg/dL (-199) VLDL Cholesterol 18 mg/dL (5-40) Diagnostics: Electrocardiogram Stress Test NM Stress Test Pulmonary: No Data to Display Assessment and Plan Assessment and Plan (1) 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 His most recent stress test from 10/30/2021 was negative for ischemia. He appears stable at this time, and denies any recent symptoms or events. At this time, he will continue with his current medical therapy, along with aggressive risk factor and lifestyle modifications. (2) Stented coronary artery: Status: Chronic Comment: 09/21/2003 PTCA and BENEDICT to ostium of first dx, Dr. Carbajal, [facility] Plan: Patient has a history of coronary artery disease with stent placement in 2003. His most recent stress test from 10/30/2021 was negative for ischemia. This was reviewed with him. He appears stable at this time, and denies any recent symptoms or events. At this time, he will continue with his current medical therapy, along with aggressive risk factor and lifestyle modifications. (3) Peripheral arterial disease: Status: Chronic Plan: Patient has a history of peripheral arterial disease. He does follow with Dr. Chávez for this. (4) Essential hypertension: Status: Chronic Plan: Patient has a history of hypertension. His blood pressure is well controlled at this time. He will continue with his current medical therapy, along with monitoring blood pressures at home. He will notify our office of any persistent high or low blood pressure readings. (5) Hyperlipidemia: Status: Chronic Qualifiers: Hyperlipidemia type: unspecified Qualified Code(s): E78.5 - Hyperlipidemia, unspecified Plan: Patient has a history of hyperlipidemia. His most recent lipid panel from 10/09/2021: Cholesterol 118, HDL 47, LDL 53, triglycerides 88. He will continue with rosuvastatin 10 mg daily, along with aggressive risk factor and lifestyle modifications. (6) Fatigue: Status: Acute Plan: He continues to have complaints of fatigue. His most recent stress test from 10/2021 was negative for ischemia. His most recent CBC was wnl. He was encouraged to follow up with his PCP for this. (7) Palpitations: Status: Acute Plan: Patient has complaints of palpitations. We will obtain a 15 day event monitor to evaluate patients heart rate and rhythm. Orders: Orders 30 Day Event Recorder Manuel Today R00.2 - Palpitations Medications: Changed From clopidogrel TAKE 1 TABLET BY MOUTH EVERY DAY 90 tabs 3RF To clopidogrel 75 mg PO DAILY Plan Details Additional Comments: Patient will follow up in 3 months, or sooner if needed. Thank you for allowing me to participate in the care of your patient. Please don't hesitate to call if any issues arise. This note was generated using a voice recognition system and there may be incorrect words, spelling, or punctuation that were not noted when reviewing the office note prior to saving. Portions of this documentation were copied and pasted from previous office visit notes to provide a cohesive continuity of the history. The note has been reviewed, edited, and updated, as necessary. Follow Up: 3 Months (FILM PROJECTOR OPERATOR/PA) Coding Level of Care Code Off vis,est,level 4 Diagnoses 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 I25.111 [place] vs. transplanted heart: muscogee heart Stented coronary artery Z95.5 Peripheral arterial disease I73.9 Essential hypertension I10 Hyperlipidemia E78.5 Hyperlipidemia type: unspecified Fatigue R53.83 Palpitations R00.2 Coding Level of Care Code Off vis,est,level 4 Diagnoses 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 I25.111 [place] vs. transplanted heart: mus[place]ogee heart Stented coronary artery Z95.5 Peripheral arterial disease I73.9 Essential hypertension I10 Hyperlipidemia E78.5 Hyperlipidemia type: unspecified Fatigue R53.83 Palpitations R00.2 01/26/22 1047 <Electronically signed by Franchesca Moreira NP FILM PROJECTOR OPERATOR-C> Date Franchesca AKBARC Cosigner Signature: Date (if applicable) CC: Dr. Bisi Martinez, DO Bisi Martinez DO Work Phone: Start: 11-12-2021 End: 11-12-2021 Operative Report Comments: See Note; NOTES: [facility] Medical Records Department [address] [place] [address] Operative Report 11/12/21 0843 MR#: [id number] Acct: [id number] Name: MERRICK HODGES Rep #: [id number] : 1945 76 From: Nando Chávez MD PCP: Dr. Bisi Martinez, DO Status[place] [facility] [place]: [facility] Problems Associated Problem List Diagnoses (1) Peripheral arterial disease: Report of Operation Date of Procedure: 11/12/21 Pre-Operative Diagnosis: PAD with claudication Post-Operative Diagnosis: The same Surgery/Procedure Performed:: 1. Ultrasound-guided access retrograde left brachial artery. 2. Aortogram with right iliofemoral angiogram. 3. Balloon angioplasty of the right common femoral artery into the femorofemoral bypass graft with a 6 and 7 mm balloon. Surgeon: Nando Chávez Type of Anesthesia: IV Sedation Description of Procedure: Patient brought to the [facility]. Underwent appropriate timeout consent. Underwent sedation. Was prepped and draped in a sterile fashion. We did ultrasound-guided access retrograde in the left brachial artery. Gave 5000 units of heparin. Got the wire down the descending thoracic aorta and switch to a long stiff Glidewire. Brought in a long 6 [place] sheath. Did an aortogram with right iliofemoral angiogram. And then in some oblique views. Could see some of the stenosis into the femorofemoral bypass graft. Part of it came back and a sharper reverse- angle which may be partly related to the elevated velocities. We got eventually able with different catheters got the wire into this. We ballooned first with a 6 x 80 balloon for over 2 minutes. And then with a 7 x 4 balloon for a minute and a half. It appeared to be slightly improved a little bit better flow through this area. We then removed out the sheath put a shorter sheath. Gave 35 of protamine. Held pressure with good hemostasis. Brought to recovery stable condition. Sedation: This 76-year-old gentleman underwent moderate sedation given by Dr. Nando Chávez. He was monitored EKG blood pressure and pulse ox for over the 30 minutes of the procedure. See the EMR for the complete record. 11/12/21 0846 <Electronically signed by Nando Chávez MD> Cosigner Signature (if applicable): CC: Dr. Nando Chávez MD; Dr. Bisi Martinez DO Signed Bisi Martinez DO Work Phone: Start: 10-30-2021 End: 10-30-2021 Stress Report Comments: See Note; NOTES: [facility] Cardiovascular Services [address] [place] [address] MR#: [id number] Acct: [id number] Name: MERRICK HODGES Rep #: [id number] : 1945 75 From: Perez Smith MD Primary Care: Dr. Bisi Martinez DO Status: REG CLI Referring Dr: Franchesca Moreira NP FILM PROJECTOR OPERATOR-C Sex: M C Stress Test Report Date: 10-30-2021 Procedure: Pharmacologic stress nuclear imaging study Indications: Fatigue; CAD; PCI; PAD Consent: Per the patient Procedure: The patient underwent pharmacologic (Regadenoson 0.4mg ) evaluation with a peak heart rate of 92 beats per minute (63%predicted maximal heart rate) and a peak blood pressure of 130/74 mmHg. The baseline ECG demonstrated normal sinus rhythm. The peak pharmacologic ECG demonstrated no obvious ECG changes. There was a rare PAC during infusion and an occasional PAC/PVC during recovery. There was no complaint of chest discomfort during pharmacologic infusion or recovery. The examination was discontinued secondary to completion of protocol. Impression: 1. Pharmacologic (Regadenoson) evaluation 2. Peak pharmacologic ECG with no obvious ECG changes. 3. There was a rare PAC during infusion and an occasional PAC/PVC during recovery. 4. Nuclear images pending Myocardial perfusion imaging study: Technique: The patient was injected with 11.9 millicuries of technetium 99m Cardiolite and subsequently rest SPECT Cardiolite nuclear imaging was obtained in the horizontal long, vertical long, and short axis views. The patient underwent pharmacologic (Regadenoson) evaluation with a peak heart rate of 92 beats per minute (63% percent predicted maximal heart rate) and a peak blood pressure of 130/74 mmHg. The patient was injected with 32.9 millicuries of technetium 99m Cardiolite and subsequently stress SPECT Cardiolite nuclear imaging was obtained in the horizontal long, vertical long, and short axis views. A gated Cardiolite study at peak stress was obtained. Interpretation: Rest and stress SPECT Cardiolite nuclear imaging status post realignment and normalization demonstrate at rest the appearance of a small area of subtle diminished tracer uptake in the mid inferior segments which appears to improve/normalize following stress. There is end systolic thickening and brightening. The gated Cardiolite study demonstrates myocardial thickening and inward wall motion. The reported LVEF is 69%. Impression: 1. Rest and stress SPECT current nuclear imaging demonstrate myocardial perfusion changes compatible with shifting soft tissue attenuation/artifact which appears to be more prominent at rest as opposed to stress with no myocardial perfusion changes considered diagnostic for associated stress-induced myocardial ischemia. 2. The gated Cardiolite study reports an LVEF of 69%. This note was generated with Stream5 software. It may contain incorrect words, spelling, and punctuation that were not noted in checking the note before signing. 10/30/21 1014 <Electronically signed by Perez Smith MD> Date Perez Smith MD CC: WINSOME-Anne-Marie Moreira; Dr. Bisi Martinez DO Date Dictated: 10/30/21 1006 Date Transcribed: 10/30/21 1006 Hook Puller: PM Signed Bisi Martinez DO Work Phone: Start: 10-30-2021 Cardiovascular stress test using pharmacologic stress agent Dr. Bisi Martinez Work Phone: Start: 10-17-2021 End: 10-17-2021 12 Lead E[place] [facility] Comments: See Note; NOTES: [facility] [address] [place] [address] 12 Lead EKG performed by [facility] 10/17/21 0841 MR#: [id number] Acct: [id number] Name: MERRICK HODGES Rep #: [id number] : 1945 75 From: Franchesca Moreira NP FILM PROJECTOR OPERATOR-C Attending Dr: RAFFY BeaversC Status: FREDO SORTO Ordering Dr: Franchesca Moreira NP FILM PROJECTOR OPERATOR-C Date: 10/17/21 [place] [facility] Sex: M C Admitted: BMS/12 Lead EKG performed by [facility] ECG Report Interpretation --Sinus Rhythm Electronically signed on 10/17/2021 at 11:16 by Perez Smith Software Version [id number] 10/17/21 1123 Date Franchesca Moreira NP FILM PROJECTOR OPERATOR-Anne-Marie CC: Dr. Bisi Martinez DO Date Dictated: 10/17/21840 Date Transcribed: 10/17/21840 Hook Puller: NABEEL Signed Bisi Martinez DO Work Phone: Start: 10-17-2021 End: 10-17-2021 Cardiology Visit Report Comments: See Note; NOTES: [facility] [address] [place] [address] OFFICE VISIT Date of Service: 10/17/21 MR#: [id number] Acct: [id number] Name: MERRICK HODGES Rep #: [id number] : 1945 Provider: JESSICA ruiz Age/Sex: 75/M [place] [facility] [place] Status: Signed [facility] History of Present Illness Details: This is a 75-year-old white male who presents today for outpatient cardiovascular follow-up of his history of CAD status post PCI (2004-diagonal branch), PAD, hyperlipidemia, hypertension, superimposed upon diabetes mellitus. He did have lipid labs performed on 10-09-2021. His total cholesterol was 118 with an LDL of 53 and an HDL of 47. His triglycerides were 88. He continues to follow with Dr. Chávez peripheral vascular surgery for his PAD. From a cardiac standpoint, the patient is doing well. He states that he will notice an occasional skipped beat while watching TV at night. He states this has not occurred for awhile. He denies chest pain, pressure or heaviness. He denies SOB, Orthopnea, and PND. He does not have bleeding issues; no blood in urine, stool or nosebleeds. He states he has an increase in fatigue over the last few months. He denies myalgias, or claudication. He does not have edema, or sudden weight gain. He denies dizziness, lightheadedness, syncopal or near syncopal episodes, and headaches. He states his A1C is 5.7. Intake Vital Signs 10/17/21 08:21 Height 5 ft 10 in Weight: 169 lb BMI 24.2 BP 135/79 H Blood Pressure Location Lt brachial Position Sitting Respiration 18 Pulse 68 Pulse Source Monitor Pulse Oximetry (%) 96 Intake Visit Reasons: 6 M FU Clinical Supervisor Required: No Accompanied by: no one Is patient in pain?: No Allergies atorvastatin [From Lipitor] Adverse Reaction (Intermediate, Verified 10/17/21 08:38) Myalgias Medications amlodipine 5 mg PO BID 04/16/17 [History Confirmed 10/17/21] fosinopril 20 mg PO DAILY 04/16/17 [History Confirmed 10/17/21] multivitamin 1 tab PO DAILY 04/16/17 [History Confirmed 10/17/21] aspirin 81 mg tablet,delayed release 81 mg PO QDAY 01/06/18 [History Confirmed 10/17/21] metformin 500 mg tablet 500 mg PO DAILY 09/19/20 [History Confirmed 10/17/21] metoprolol tartrate 25 mg tablet 25 mg PO BID tablet 09/19/20 [History Confirmed 10/17/21] gabapentin 600 mg tablet 600 mg PO BID tab 04/17/21 [History Confirmed 10/17/21] clopidogrel 75 mg tablet See Rx Instructions .ROUTE .COMPLEX #90 tab 09/10/21 [Rx Confirmed 10/17/21] rosuvastatin 10 mg tablet 10 mg PO DAILY tab 10/17/21 [History Confirmed 10/17/21] [facility] Medical History (Updated 10/17/21 @ 08:43 by Franchesca Moreira NP, FILM PROJECTOR OPERATOR-C) 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 Chronic back pain Essential hypertension History of non-ST elevation myocardial infarction (NSTEMI) Hyperlipidemia Hypertension Lumbar stenosis Overweight (BMI 25.0-29.9) Peripheral arterial disease Prinzmetal angina Type 2 diabetes mellitus Surgical History (Reviewed 10/17/21 @ 08:38 by Franchesca Moreira FILM PROJECTOR OPERATOR, FILM PROJECTOR OPERATOR-C) History of left heart catheterization S/P femoral-femoral bypass surgery Family History (Reviewed 10/17/21 @ 08:38 by Franchesca Moreira FILM PROJECTOR OPERATOR, FILM PROJECTOR OPERATOR-C) Father , of cancer Myocardial infarction, Onset Age: 70 Cancer Mother , age 66 Bleeding in brain due to brain aneurysm Brother Myocardial infarction, Onset Age: 62 CAD (coronary artery disease) Social History (Reviewed 10/17/21 @ 08:38 by Franchesca Moreira FILM PROJECTOR OPERATOR, FILM PROJECTOR OPERATOR-C) Smoking Status: Former smoker how long ago did patient quit smokin ROS Const Const: Positive for fatigue (increase in fatigue over the last 2 months. ); Negative for weakness, fever(s), headache(s), chills, frequent falls, weight gain or weight loss Eyes Eyes: Negative for blind spots, loss of peripheral vision, transient loss of vision, blurry vision, change in vision, double vision, floaters or tunnel vision ENT ENT: Negative for headache(s), dizziness, Nosebleed/epistaxis, balance problems or neck pain Cardio Chest Pain: No Palpitations: Yes (occasional ) feels like its: skipping (has not occurred for awhile. ) Edema: None Muscle aches with walking: None Resp Respiratory: Negative for SOB with activity, SOB at rest or SOB orthopnea SOB lying down GI GI: Negative nausea, vomiting, heartburn, bloating, vomiting blood/hematemesis, bright, red blood in stools or black,tarry stools Musc Musc: Negative for muscle aches/ myalgia, muscle weakness, joint pain or balance problems Neuro Neuro: Negative for dizziness, lightheadedness, near syncope, syncope, orthostatic symptoms, frequent falls, headache(s), weakness, blurry vision or double vision Artie Hematologic/Lymphatic: Negative for easy bleeding or easy bruising Endo Endo: Positive for fatigue (increase in fatigue over the last 2 months. ) Cardiology Exam Const Appearance: cooperative and no acute distress Orientation: alert and oriented x3 Head Head: normal to inspection Ears: hearing grossly normal bilaterally Nose: external nose normal Face and Sinus: face symmetric Eyes General: appearance normal, both eyes and all related structures Eyelids: eyelids normal Conjunctivae: conjunctivae normal Pupils: PERRL and pupil size EOM: EOM intact bilaterally Neck Neck: normal visual inspection Carotids: Negative bruit Chest Chest inspection: normal inspection of the chest and normal respiratory effort Auscultation: Bilateral: Clear to Auscultation Cardio Palpation: normal PMI Rate: regular rate Rhythm: regular rhythm Heart sounds: S1 normal and S2 normal; Negative rub, gallop or murmur GI GI: normal to inspection and soft; Negative no hepatosplenomegaly Neuro General: patient alert, patient oriented x3 and CN's II-XI intact bilaterally Skin Skin: no rashes or lesions noted Extremities Pulses: Normal: Right Posterior Tibial Pulse, Left Posterior Tibial Pulse, Right Radial Pulse and Left Radial Pulse Lower Extremity Edema: None: Bilateral Psych Psychological: normal affect Supplemental Info Supplemental Information Stress Test 05/2018: Pharmacologic myocardial perfusion stress test. 72-year-old man with a history of coronary artery disease status post angioplasty and stenting 15 years ago. Medications: Metoprolol rosuvastatin fosinopril amlodipine baby aspirin. Stress protocol: Resting EKG demonstrates normal sinus rhythm with a rate of 72 bpm normal intervals are noted resting blood pressure is 154/84 mmHg. 0.4 mg of regadenoson was infused per usual protocol fo llowed by rapid intravenous saline flush injection continuous [...] myocardial perfusion stress test. Preserved ejection fraction. Labs: LDL Cholesterol 53 mg/dL (0-130) HDL Cholesterol 47 mg/dL (40-) Triglycerides 88 mg/dL (-199) VLDL Cholesterol 18 mg/dL (5-40) Diagnostics: No Data to Display Pulmonary: No Data to Display Assessment and Plan Assessment and Plan (1) 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 transplanted heart: muscogee heart Qualified Code(s): I25.111 - 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 Comment: PTCA with stent of Ostium of firts major dx 09/21/2003 Orders: Orders: 12 Lead EKG performed by [facility] Today Nuclear Stress Test - Chemical Today Yesenia Moreira NP, FILM PROJECTOR OPERATOR-C: Patient has a history of coronary artery disease with stent placement in 2003. His EKG from today demonstrates sinus rhythm with heart rate of 63. He does have complaints of increased fatigue over the last 2 months. We will obtain a chemical nuclear stress test to evaluate for any ischemia. At this time, he will continue with his current medical therapy, along with aggressive risk factor and lifestyle modifications. (2) Stented coronary artery: Status: Chronic Comment: 09/21/2003 PTCA and BENEDICT to ostium of first dx, Dr. Carbajal, [facility] Yesenia Moreira NP, FILM PROJECTOR OPERATOR-C: Patient has a history of coronary artery disease with stent placement in 2003. He does have complaints of increased fatigue over the last 2 months. We will obtain a chemical nuclear stress test to evaluate for any ischemia. At this time, he will continue with his current medical therapy, along with aggressive risk factor and lifestyle modifications. (3) Peripheral arterial disease: Status: Chronic Yesenia Moreira NP, FILM PROJECTOR OPERATOR-C: Patient has a history of peripheral arterial disease. He does follow with Dr. Chávez for this. (4) Essential hypertension: Status: Chronic Yesenia Moreira NP, FILM PROJECTOR OPERATOR-C: Patient has a history of hypertension. His blood pressure is well controlled at this time. He will continue with his current medical therapy, along with monitoring blood pressures at home. He will notify our office of any persistent high or low blood pressure readings. (5) Hyperlipidemia: Status: Chronic Qualifiers: Hyperlipidemia type: unspecified Qualified Code(s): E78.5 - Hyperlipidemia, unspecified Yesenia Moreira NP, FILM PROJECTOR OPERATOR-C: Patient has a history of hyperlipidemia. His most recent lipid panel from 10/09/2021: Cholesterol 118, HDL 47, LDL 53, triglycerides 88. He will continue with rosuvastatin 10 mg daily, along with aggressive risk factor and lifestyle modifications. (6) Fatigue: Status: Acute Orders: Orders: Basic Metabolic Profile (BMP) Today T4 Free Direct Today Thyroid Stim Hormone (TSH) Today CBC W/Diff, Automated Today Nuclear Stress Test - Chemical Today Plan - Franchesca Moreira NP, FILM PROJECTOR OPERATOR-C: Patient has complaints of increased fatigue over the last 2 months. We will obtain lab work to evaluate for anemia, thyroid function, and electrolytes. Patient will also obtain a chemical nuclear stress test to evaluate for any ischemia. We will keep close follow up with patient. Plan Details Other Orders: Orders: 12 Lead EKG performed by [facility] Today R00.2 Additional Comments: Patient will follow up in 3 months, or sooner if needed. Thank you for allowing me to participate in the care of your patient. Please don't hesitate to call if any issues arise. This note was generated using a voice recognition system and there may be incorrect words, spelling, or punctuation that were not noted when reviewing the office note prior to saving. Follow Up: 3 Months (FILM PROJECTOR OPERATOR/PA) 12-14 months (PFM) Coding Level of Care Code Off vis,est,level 4 Diagnoses 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 I25.111 [place] vs. 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 transplanted heart: muscogee heart Stented coronary artery Z95.5 Peripheral arterial disease I73.9 Essential hypertension I10 Hyperlipidemia E78.5 Hyperlipidemia type: unspecified Fatigue R53.83 10/17/21 0859 <Electronically signed by Franchesca Moreira NP FILM PROJECTOR OPERATOR-C> Date Franchesca Moreira NP FILM PROJECTOR OPERATOR-C 10/17/21 0910<Electronically signed by Perez Smith MD> Cosigner Signature: Date (if applicable) Perez Smith MD CC: Dr. Bisi Martinez, DO Bisi Martinez DO Work Phone: Start: 09-09-2021 End: 09-17-2021 Abd Aortic/IVC Duplex scan Comments: See Note; NOTES: [facility] [address] [place] [address] Abd Aortic/IVC Duplex scan 09/09/21904 MR#: [id number] Acct: [id number] Name: MERRICK HODGES Rep #: [id number] : 1945 75 From: Nando Chávez MD Attending Dr: Dr. Nando Chávez MD Status: [facility] Ordering Dr: Nando Chávez MD Date: 09/09/21 Location: [facility] Sex: M C Admitted: Reason For Study: Aortoiliac occlusive disease Aorta Measurements Aorta Doppler Measurements Proximal aorta measures1.85 x 1.94cm. in cross- Peak systolic flow velocities within the proximal sectional axis. aorta measure 96.1 cm/sec. Proximal aorta measures1.93cm. in longitudinal Peak systolic flow velocities within the mid aorta axis. measure 59.5 cm/sec. Mid aorta measures1.47 x 1.50cm. in cross- Peak systolic flow velocities within the distal sectional axis. aorta measure 83.3 cm/sec. Mid aorta measures1.46cm. in longitudinal axis. Distal aorta measures1.37 x 1.37cm. in cross- sectional axis. Distal aorta measures1.36cm. in longitudinal axis. Left Iliac Artery Left iliac artery measures 0.66 x 0.68 cm. in the cross-sectional axis. Left iliac artery measures 0.66 cm. in the longitudinal axis. Lt MATT is a known occlusion. Right Iliac Artery Right iliac artery measures 0.83 x 0.84 cm. in the cross-sectional axis. Right iliac artery measures 0.81 cm. in the longitudinal axis. Peak systolic velocity in the right iliac artery measures 241.7 cm/sec. Procedure Aorta IVC Iliac vasculature or bypass grafts 84938. Exam performed in department. VL/Abd Aortic/IVC Duplex scan Interpretation Summary Right common iliac with moderate stenosis noted. 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 No aneurysm noted. ____ _ Ordering Physician: Nando Chávez Referring Physician: Bisi Martinez M.D. Performed By: Connie Ravi RVT 09/17/21804 Date Nando Chávez MD CC: Dr. Nando Chávez MD; Dr. Bisi Martinez DO Date Dictated: 09/09/21904 Date Transcribed: 09/17/21804 Hook Puller: Shyam Martinez DO Work Phone: Start: 09-09-2021 End: 09-17-2021 Ankle Brachial Index Comments: See Note; NOTES: [facility] [address] [place] [address] Ankle Brachial Index 09/09/21 0900 MR#: [id number] Acct: [id number] Name: MERRICK HODGES Rep #: [id number] : 1945 75 From: Nando Chávez MD Attending Dr: Dr. Nando Chávez MD Status: RE G CLI Ordering Dr: Nando Chávez MD Date: 09/09/21 Location: [facility] Sex: M C Admitted: Reason For Study: Atherosclerosis Procedure A bilateral lower extremity continuous wave Doppler with analog waveform analysis and ankle brachial indexes. Left Segmental Pressures Left brachial= 154mmHg. Left posterior tibial artery = 130mmHg. Left dorsalis pedis artery = 140mmHg. Left digit = 108 mmHg. The left dorsalis pedis waveforms are triphasic. The left posterior tibial artery waveforms are triphasic. Right Segmental Pressures Right brachial= 147mmHg. Right posterior tibial artery = 160mmHg. Right dorsalis pedis artery = 157mmHg. Right digit = 119 mmHg. The right dorsalis pedis waveforms are triphasic. The right posterior tibial artery waveforms are triphasic. Indices The right ankle brachial index by the dorsalis pedis is 1.02. The right ankle brachial index by the posterior tibial artery is 1.04. The right digital-brachial index is 0.77. The left ankle brachial index by the dorsalis pedis is 0.91. The left ankle brachial index by the posterior tibial artery is 0.84. The left digital-brachial index is 0.70. VL/Ankle Brachial Index Interpretation Summary Bilateral lower extremities with no evidence of significant occlusive disease at rest. CLARISSA 1.04 and 0.91. Bilateral triphasic flow noted. ____ _ Ordering Physician: Nando Chávez Referring Physician: Bisi Martinez M.D. Performed By: Connie Ravi RVT 09/17/21 08 Date Nando Chávez MD CC: Dr. Nando Chávez MD; Dr. Bisi Martinez, DO Date Dictated: 09/09/21899 Date Transcribed: 09/17/21805 Hook Puller: Signed Bisi Martinez DO Work Phone: Start: 09-09-2021 End: 09-17-2021 US Art Duplex Unilat Lower Ext Comments: See Note; NOTES: [facility] [address] [place] [place] [address] US Art Duplex Unilat Lower Ext 09/09/21918 MR#: [id number] Acct: [id number] Name: MERRICK HODGES Rep #: [id number] : 1945 75 From: Nando Chávez MD Attending Dr: Dr. Nando Chávez MD Status: RE G CLI Ordering Dr: Nando Chávez MD Date: 09/09/21 Location: [facility] Sex: M C Admitted: Reason For Study: Atherosclerosis Right Velocities Left Velocities Ext. Iliac Artery, dist = 202.3 cm./sec. Ext. Iliac Artery, dist, Known occlusion. Common Femoral Artery, mid = 206.3 cm./sec. Common Femoral Artery, mid = 194.9 cm./sec. Right to Left fem/fem bypass noted. Prox anastomosis, 566.6 cm/sec. Prox graft, 220.7 cm/sec. Mid graft, 140.7 cm/sec. Distal graft, 169.2 cm/sec. Distal anastomosis, 217.5 cm/sec. Procedure Exam performed in department. /US Art Duplex Unilat Lower Ext Interpretation Summary Right to left femorofemoral bypass graft is patent. Severe stenosis at the proximal anastomosis. ____ _ Ordering Physician: Nando Chávez Referring Physician: Bisi Martinez M.D. Performed By: Connie Ravi RVT 09/17/2104 Date Nando Chávez MD CC: Dr. Nando Chávez MD; Dr. Bisi Martinez DO Date Dictated: 09/09/21918 Date Transcribed: 09/17/21803 Hook Puller: Signed Bisi Martinez DO Work Phone: Start: 07-11-2021 End: 07-15-2021 Carotid Duplex Ultrasound Comments: See Note; NOTES: [facility] [address] [place] [address] Carotid Duplex Ultrasound 07/11/2143 MR#: [id number] Acct: [id number] Name: MERRICK HODGES [place] Rep #: [id number] : 1945 75 From: Nando Chávez MD Attending Dr: Dr. Bisi Martinez DO Status: R EG CLI Ordering Dr: Bisi Martinez DO Date: 07/11/21 Location: [facility] Sex: M C Admitted: Reason For Study: BILATERAL CAROTID BRUITS Rt. Velocities/BP Lt. Velocities/BP Prox CCA 89.5/9.9 cm/sec. Prox CCA 127.7/12.6 cm/sec. Mid CCA 101.2/15.1 cm/sec. Mid CCA 100.3/10.8 cm/sec. Dist CCA 80.3/13.8 cm/sec. Dist CCA 93.0/14.4 cm/sec. Prox ICA 76.0/13.4 cm/sec. Prox ICA 140.5/21.7 cm/sec. Mid ICA 71.1/12.2 cm/sec. Mid ICA 140.5/30.9 cm/sec. Dist ICA 48.2/10.9 cm/sec. Dist ICA 114.9/23.6 cm/sec. Rt. ICA/CCA = 76.0/101.2=0.8. Lt. ICA/CCA = 140.5/100.3=1.4. Prox ECA 320.0/37.7 cm/sec. Prox ECA 138.6/9.0 cm/sec. Rt. Vert. 79.0/15.3 cm/sec. Lt. Vert. 50.3/0.0 cm/sec. Right Extracranial There is intimal thickening but no significant atherosclerotic plaque noted in the right common carotid artery. There is intimal thickening but no significant atherosclerotic plaque noted in the right internal carotid artery. There is heterogeneous, irregular atherosclerotic plaque noted in the right external carotid artery. Antegrade flow is noted in the right vertebral artery. Left Extracranial There is homogeneous, smooth atherosclerotic plaque noted in the left common carotid artery. There is heterogeneous, irregular atherosclerotic plaque noted in the left internal carotid artery. There is heterogeneous, irregular atherosclerotic plaque noted in the left external carotid artery. Antegrade flow is noted in the left vertebral artery. There is heterogeneous, irregular atherosclerotic plaque noted in the left bulb. Procedure Carotid Duplex 23749. This is a Carotid Duplex examination using B-mode, color flow and specral Doppler. Exam performed in department. VL/Carotid Duplex Ultrasound Interpretation Summary Mild (<50%) stenosis right extracranial internal carotid. Moderate (50-69%) stenosis left extracranial internal carotid. ____ _ Ordering Physician: Bisi Martinez Referring Physician: Perez Smith; Bisi Martinez Performed By: Regi Hills, RACHEL, RVT 07/15/21710 Date Nando Chávez MD CC: Dr. Bisi Martinez DO Date Dictated: 07/11/2143 Date Transcribed: 07/15/21 0711 Hook Puller: Signed Bisi Martinez DO Work Phone: Start: 07-03-2021 End: 07-03-2021 HIP, UNI W/ Pelvis 2-3 Views Comments: See Note; NOTES: [facility] [address] [place] [address] HIP, UNI W/ Pelvis 2-3 Views MR#: [id number] Acct: [id number] Name: MERRICK HODGES Rep #: [id number] : 1945 M 75 From: Sanchez Rodriguez MD PCP: Dr. Bisi Martinez DO Status: DEP AMB Study: HIP, UNI W/ Pelvis 2-3 Views Date of Exam: Exam# [id number] Ordering Dr: Bisi Martinez DO STUDY: X-RAY - PELVIS AND LEFT HIP REASON FOR EXAM: Male, 75 years old. Pain. TECHNIQUE: 3 views of the pelvis and hip. COMPARISON: 03/22/2020. FINDINGS: There is a non-specific bowel gas pattern. Vascular calcifications and phleboliths unchanged. Osteopenia. Normal bilateral iliac wings, sacroiliac joints and visualized sacrum. Normal bilateral superior and inferior pubic rami. Normal pubic symphysis. Normal bilateral ischial tuberosities. Posterior fusion at L5-S1, unchanged. Mild arthrosis of both hips. RAD/HIP, UNI W/ Pelvis 2-3 Views IMPRESSION: Osteopenia with mild arthrosis of both hips. No acute abnormality or erosive changes. Electronically Signed: Sanchez Rodriguez MD at 10:48 EST , Service support , CC: Dr. Bisi Martinez DO Hook Puller: Signed Bisi Martinez DO Work Phone: Start: 07-03-2021 Plain x-ray of pelvis and lower extremity Dr. Bisi Martinez Work Phone: Start: 04-17-2021 End: 04-17-2021 Cardiology Visit Report Comments: See Note; NOTES: [facility] [address] [place] [address] OFFICE VISIT Date of Service: 04/17/21 MR#: [id number] Acct: [id number] Name: MERRICK HODGES Rep #: [id number] : 1945 Provider: Dr. Perez thomas MD Age/Sex: 75/M Location: [facility] Status: Signed HPI HPI History of Present Illness Details: This is a 75-year-old white male who presents today for outpatient cardiovascular follow-up of his history of CAD status post PCI (2003-diagonal branch), PAD, hyperlipidemia, hypertension, superimposed upon diabetes mellitus. The patient denies symptoms considered classic for angina pectoris, CHF / pulmonary edema (with respect to orthopnea / PND), ongoing palpitations, or near syncope / syncope. The patient denies ongoing peripheral pitting edema. He did have lipid labs performed on 09-19-2020. His total cholesterol was 121 with an LDL of 53 and an HDL of 54. His triglycerides were 68. He continues to follow with Dr. Chávez peripheral vascular surgery for his PAD. Intake Vital Signs 04/17/21 15:14 Height 5 ft 10 in Weight: 170 lb 9 oz BP 130/60 H Blood Pressure Location Lt brachial Position Sitting Respiration 16 Pulse 84 Pulse Source Auscultation Intake Visit Reasons: 7 m fu Clinical Supervisor Required: No Accompanied by: Self Allergies atorvastatin [From Lipitor] Adverse Reaction (Intermediate, Verified 04/17/21 15:17) Myalgias Medications amlodipine 5 mg PO BID 04/16/17 [History Confirmed 04/17/21] fosinopril 20 mg PO DAILY 04/16/17 [History Confirmed 04/17/21] multivitamin 1 tab PO DAILY 04/16/17 [History Confirmed 04/17/21] aspirin 81 mg tablet,delayed release 81 mg PO QDAY 01/06/18 [History Confirmed 04/17/21] clopidogrel 75 mg tablet 75 mg PO DAILY tablet 09/19/20 [History Confirmed 04/17/21] metformin 500 mg tablet 500 mg PO DAILY 09/19/20 [History Confirmed 04/17/21] metoprolol tartrate 25 mg tablet 25 mg PO BID tablet 09/19/20 [History Confirmed 04/17/21] gabapentin 600 mg tablet 600 mg PO BID tab 04/17/21 [History Confirmed 04/17/21] rosuvastatin 10 mg tablet 10 mg PO BID tab 04/17/21 [History Confirmed 04/17/21] FOR[facility]LY [facility] Medical History 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 Chronic back pain Essential hypertension History of non-ST elevation myocardial infarction (NSTEMI) Hyperlipidemia Hypertension Lumbar stenosis Overweight (BMI 25.0-29.9) Peripheral arterial disease Prinzmetal angina Type 2 diabetes mellitus Surgical History History of left heart catheterization S/P femoral-femoral bypass surgery Family History Father , of cancer Myocardial infarction, Onset Age: 70 Cancer Mother , age 66 Bleeding in brain due to brain aneurysm Brother Myocardial infarction, Onset Age: 62 CAD (coronary artery disease) Social History Smoking Status: Former smoker how long ago did patient quit smokin ROS Const Const: Negative for fatigue, weakness, frequent falls, excessive sweating, weight gain or weight loss Eyes Eyes: Negative for transient loss of vision, blurry vision or change in vision ENT ENT: Negative for dizziness or balance problems Cardio Chest Pain: No Palpitations: No Edema: None Muscle aches with walking: None Resp Respiratory: Negative for SOB with activity or SOB at rest GI GI: Negative vomiting or vomiting blood/hematemesis : Negative for hematuria Musc Musc: Negative for muscle aches/ myalgia, muscle weakness, joint pain or balance problems Skin Skin: Negative non-healing lesions or rash Neuro Neuro: Negative for dizziness, lightheadedness, orthostatic symptoms, frequent falls, weakness or blurry vision Artie Hematologic/Lymphatic: Negative for easy bleeding Endo Endo: Negative for fatigue or excessive sweating Psych Psych: Negative for anxiety or depression Allergy Allergy/Immunology: Negative for hives and Negative for rash Cardiology Exam Const Appearance: cooperative, healthy appearing, comfortable, no acute distress, well developed and well groomed Nutritional Appearance: average body habitus Orientation: alert, awake and oriented x3 Head Head: normal to inspection, normocephalic and atraumatic Ears: hearing grossly normal bilaterally Nose: external nose normal Face and Sinus: face symmetric Eyes Eyelids: eyelids normal Conjunctivae: conjunctivae normal Pupils: PERRL EOM: EOM intact bilaterally Neck Neck: normal visual inspection and full ROM Carotids: normal carotid upstroke carotid endarterectomy: Bilateral Chest Chest inspection: normal inspection of the chest, symmetric chest movement and normal respiratory effort Auscultation: Bilateral: Clear to Auscultation Cardio Palpation: normal PMI Rate: regular rate Rhythm: regular rhythm Heart sounds: S1 normal and S2 normal GI GI: normal to inspection, soft and bowel sounds present Neuro General: patient alert, patient awake and patient oriented x3 Extremities Pulses: Normal: Right Radial Pulse and Left Radial Pulse Lower Extremity Edema: None: Bilateral Psych Psychological: normal affect Supplemental Info Supplemental Information Labs: LDL Cholesterol 53 mg/dL (0-130) HDL Cholesterol 54 mg/dL (40-) Triglycerides 68 mg/dL (-199) VLDL Cholesterol 14 mg/dL (5-40) Diagnostics: Stress Test NM Stress Test Pulmonary: No Data to Display Assessment and Plan Assessment and Plan (1) 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 transplanted heart: mus[place]ogee heart Qualified Code(s): I25.111 - 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 Comment: PTCA with stent of Ostium of firts major dx 09/21/2003 Plan - Dr. Perez Smith MD: At the present time he appears to be doing well. He will continue risk factor modification and medical management. (2) Stented coronary artery: Status: Chronic Comment: 09/21/2003 PTCA and BENEDICT to ostium of first dx, Dr. Carbajal, [facility] Plan - Dr. Perez Smith MD: His revascularization history was reviewed. Again he appears to be doing well at this time. He will continue medical therapy. (3) Peripheral arterial disease: Status: Chronic Plan - Dr. Perez Smith MD: He will continue to follow with Dr. Chávez for his PAD. (4) Hyperlipidemia: Status: Chronic Qualifiers: Hyperlipidemia type: unspecified Qualified Code(s): E78.5 - Hyperlipidemia, unspecified Plan - Dr. Perez Smith MD: His lipid labs labs were reviewed. They appear to be under good control. He will continue medical management. (5) Essential hypertension: Status: Chronic Plan - Dr. Perez Smith MD: His blood pressure appears to be reasonably well controlled. He will continue medical therapy and follow-up. Plan Details Additional Comments: Thank you for allowing me to participate in the care of your patient. Please don't hesitate to call if any issues arise. This note was generated using a voice recognition system and there may be incorrect words, spelling or punctuation that were not noted when reviewing the office note prior to saving. Follow Up: 6 Months (PFM) COVID (Procedure Consent) Procedure Criteria Procedure Criteria: Yes Elective The surgeon/proceduralist and patient have discussed in detail the risk of exposure to and/or potential harm posed by the COVID-19 virus with having a surgery/procedure at this time versus the risk of??? delaying the surgery/procedure. It is not possible to know either the risk of delaying the surgery or procedure or chance of getting an infection with perfect accuracy, but a joint decision was made between the patient and the surgeon/proceduralist ???to proceed at this time with the scheduled surgery/procedure as indicated on the consent form. Coding Level of Care Code Off vis,est,level 3 Diagnoses 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 I25.111 [place] vs. transplanted heart: [place] heart Stented coronary artery Z95.5 Peripheral arterial disease I73.9 Hyperlipidemia E78.5 Hyperlipidemia type: unspecified Essential hypertension I10 Coding Level of Care Code Off vis,est,level 3 Diagnoses 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 I25.111 [place] vs. transplanted heart: [place] heart Stented coronary artery Z95.5 Peripheral arterial disease I73.9 Hyperlipidemia E78.5 Hyperlipidemia type: unspecified Essential hypertension I10 04/17/21 3891 <Electronically signed by Perez Smith MD> Date Perez Smith MD Cosigner Signature: Date (if applicable) CC: Dr. Bisi Martinez, DO Bisi Martinez DO Work Phone: Start: 09-19-2020 End: 09-19-2020 Cardiology Visit Report Comments: See Note; NOTES: [facility] [facility] [place] [address] OFFICE VISIT Date of Service: 09/19/20 MR#: [id number] Acct: [id number] Name: MERRICK HODGES Rep #: [id number] : 1945 Provider: Dr. Perez thomas MD Age/Sex: 74/M Location: [facility] Status: Signed HPI HPI History of Present Illness Details: This is a 74-year-old gentleman that presents here today for a cardiovascular follow-up with a history of coronary artery disease with stenting to his diagonal in September 2003, hyperlipidemia, hypertension, diabetes mellitus (recent PCP diagnosis), PAD s/p femoral-femoral bypass surgery, and ALTHEA. The patient denies symptoms considered classic for angina pectoris, CHF / pulmonary edema (with respect to orthopnea / PND), ongoing palpitations, or near syncope / syncope. The patient denies ongoing peripheral pitting edema. The patient states he was recently diagnosed with diabetes mellitus. He has been placed on medical therapy with Metformin. The patient does follow with Dr. Chávez peripheral vascular surgery. He had lipid labs performed this day. His total cholesterol was 121 with an LDL of 53 and an HDL of 54. His triglycerides were 68. Intake Vital Signs 09/19/20 Height 5 ft 10 in 09/19/20 Weight: 175 lb 09/19/20 BMI 25.1 09/19/20 BP 152/74 H 09/19/20 Blood Pressure Location Lt brachial 09/19/20 Position Sitting 09/19/20 Respiration 16 09/19/20 Pulse 60 09/19/20 Pulse Source Auscultation Intake Visit Reasons: 6 MO F/U ([facility]YNOR PT) Clinical Supervisor Required: No Accompanied by: Self Allergies atorvastatin [From Lipitor] Adverse Reaction (Intermediate, Verified 09/19/20 10:03) Myalgias Medications Amlodipine [Norvasc] 5 mg PO BID 04/16/17 [History Confirmed 09/19/20] Fosinopril Sodium 20 mg PO DAILY 04/16/17 [History Confirmed 09/19/20] Gabapentin [Neurontin] 300 mg PO TID 04/16/17 [History Confirmed 09/19/20] Multivitamin [Daily Multiple Vitamin] 1 tab PO DAILY 04/16/17 [History Confirmed 09/19/20] Rosuvastatin Calcium [Crestor] 5 mg PO BID 04/16/17 [History Confirmed 09/19/20] aspirin 81 mg tablet,delayed release 81 mg PO QDAY 01/06/18 [History Confirmed 09/19/20] clopidogrel 75 mg tablet 75 mg PO DAILY tablet 09/19/20 [History] metformin 500 mg tablet 500 mg PO DAILY 09/19/20 [History Confirmed 09/19/20] metoprolol tartrate 25 mg tablet 25 mg PO BID tablet 09/19/20 [History Confirmed 09/19/20] [facility] Medical History Type 2 diabetes mellitus (Chronic) Essential hypertension (Chronic) Peripheral arterial disease (Chronic) History of non-ST elevation myocardial infarction (NSTEMI) (Chronic) 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 Perez Smith MD) Smoking Status: Former smoker how long ago did patient quit smokin ROS Const Const: Negative for fatigue, weakness, frequent falls, excessive sweating, weight gain or weight loss Eyes Eyes: Negative for transient loss of vision, blurry vision or change in vision ENT ENT: Negative for dizziness or balance problems Cardio Chest Pain: No Palpitations: No Edema: None Muscle aches with walking: None Resp Respiratory: Negative for SOB with activity or SOB at rest GI GI: Negative vomiting or vomiting blood/hematemesis : Negative for hematuria Musc Musc: Negative for muscle aches/ myalgia, muscle weakness, joint pain or balance problems Skin Skin: Negative non-healing lesions or rash Neuro Neuro: Negative for dizziness, lightheadedness, orthostatic symptoms, frequent falls, weakness or blurry vision Artie Hematologic/Lymphatic: Negative for easy bleeding Endo Endo: Negative for fatigue or excessive sweating Psych Psych: Negative for anxiety or depression Allergy Allergy/Immunology: Negative for hives, Negative for rash Cardiology Exam Const Appearance: cooperative, healthy appearing, comfortable, no acute distress, well developed and well groomed Nutritional Appearance: average body habitus and well nourished Orientation: alert, awake and oriented x3 Head Head: normal to inspection, normocephalic and atraumatic Ears: hearing grossly normal bilaterally Nose: external nose normal Face and Sinus: face symmetric Eyes Eyelids: eyelids normal Conjunctivae: conjunctivae normal Pupils: PERRL EOM: EOM intact bilaterally Neck Neck: normal visual inspection, full ROM and no JVD Carotids: Negative bruit Neck Mass: Negative Neck mass Chest Chest inspection: normal inspection of the chest and symmetric chest movement Auscultation: Bilateral: Clear to Auscultation Cardio Palpation: normal PMI Rate: regular rate Rhythm: regular rhythm Heart sounds: S1 normal and S2 normal; negative rub, gallop or murmur GI GI: normal to inspection, soft and bowel sounds present; negative tender Neuro General: alert, awake, oriented x3 and moves all extremities Skin Skin: no rashes or lesions noted Extremities Pulses: Normal: Right Femoral Pulse, Left Femoral Pulse, Right Dorsalis Pedis Pulse, Left Dorsalis Pedis Pulse, Right Radial Pulse, Left Radial Pulse, Diminished: Right Posterior Tibial Pulse, Left Posterior Tibial Pulse Lower Extremity Edema: None: Bilateral Psych Psychological: normal affect Assessment Plan 1. Atherosclerosis of mus[place]ogee coronary artery of mus[place] heart with angina pectoris with documented spasm I25.111 PTCA with stent of Ostium of firts major dx 09/21/2003 Plan At the present time he appears to be stable. He will continue his current medical management and plans for outpatient cardiovascular follow-up. 2. Stented coronary artery Z95.5 09/21/2003 PTCA and BENEDICT to ostium of first dx, Dr. Carbajal, [facility] Plan He has a history of PCI as noted above. Overall he appears to be doing well at this time. He will continue medical therapy and follow-up. 3. S/P femoral-femoral bypass surgery Z95.828 Right to left fem-fem bypass ? year and facitily; f/u angiography of aorta 01/15/2014 @ [facility] Plan He has a history of PAD. He follows with Dr. Chávez peripheral vascular surgery. He will continue medical management and follow-up. 4. Hyperlipidemia, unspecified hyperlipidemia type E78.5 Plan His lipid labs were reviewed. They appear to be under good control. We will continue medical management. 5. Essential hypertension I10 Plan He states his blood pressure at home is always better than it is in the office. He will continue to monitor at home. If it does increase at home and he may need further adjustment of his medical therapy. Plan Detail Additional Comments At the present time it was not felt the patient required additional cardiovascular diagnostic studies/intervention. The patient will continue medical management. The patient will continue with future outpatient cardiovascular follow-up. Follow Up 6 Months (with PFM) Coding Level of Care Code Off vis,est,level 3 Diagnoses Atherosclerosis of mus[place]ee coronary artery of [place] heart with angina pectoris with documented spasm I25.111 ?[place] vs. transplanted heart: mus[place]ogee heart Stented coronary artery Z95.5 S/P femoral-femoral bypass surgery Z95.828 Hyperlipidemia, unspecified hyperlipidemia type E78.5 ?Hyperlipidemia type: unspecified Essential hypertension I10 Coding Level of Care Code Off vis,est,level 3 Diagnoses Atherosclerosis of [place] coronary artery of [place] heart with angina pectoris with documented spasm I25.111 ?[place] vs. transplanted heart: [place] heart Stented coronary artery Z95.5 S/P femoral-femoral bypass surgery Z95.828 Hyperlipidemia, unspecified hyperlipidemia type E78.5 ?Hyperlipidemia type: unspecified Essential hypertension I10 Supplemental Info Supplemental Information Stress test 2018: Normal pharmacologic myocardial perfusion stress test. Preserved ejection fraction. Labs LDL Cholesterol 53 mg/dL (0-130) 09/19/20 HDL Cholesterol 54 mg/dL (40-) 09/19/20 Triglycerides 68 mg/dL (-199) 09/19/20 VLDL Cholesterol 14 mg/dL (5-40) 09/19/20 Diagnostics Stress Test Nuclear Medicine 05/31/18 Stress Test 05/31/18 09/19/20 1053 <Electronically signed by Perze Smith MD> Date Perez Smith MD Cosigner Signature: Date (if applicable) CC: Dr. Bisi Martinez, DO Bisi Martinez DO Work Phone: Start: 06-18-2020 End: 06-18-2020 Operative Report Comments: See Note; NOTES: [facility] Medical Records Department [address] [place] [id number] Operative Report 06/18/20 1315 MR#: [id number] Acct: [id number] Name: MERRICK HODGES Rep #: [id number] : 1945 74 From: Nando Chávez MD PCP: Dr. Bisi Martinez, DO Status:[facility] Location: [facility] Problem List (1) Peripheral arterial disease Status: Chronic (2) S/P femoral-femoral bypass surgery Status: Chronic Comment: Right to left fem-fem bypass ? year and facitily; f/u angiography of aorta 01/15/2014 @ [facility] Report of Operation Date of Procedure: 06/18/20 Pre-Operative Diagnosis: PAD with claudication and stenosis bypass graft Post-Operative Diagnosis: The same Surgery/Procedure Performed:: 1. Ultrasound-guided access retrograde left brachial artery. 2. Aortogram with right iliofemoral angiogram. 3. Balloon angioplasty from the right common femoral through the anastomosis of the right to left femoral bypass graft with a 6 mm balloon. Type of Anesthesia:: Sedation,Conscious Description of Procedure: Patient brought to the operating room. Underwent appropriate timeout consent. Underwent sedation. Was prepped and draped in a sterile fashion. We did ultrasound-guided access retrograde in the left brachial artery. Put a Glidewire up and then a 5 [place] sheath. We gave 5000 units of heparin. We then got the wire down the descending thoracic aorta into the right iliac artery. Switch to a stiff Glidewire. Brought in a long 5 [place] sheath. We then did an angiogram from there shown iliac artery widely patent. Good flow through the common femoral artery, the proximal femoral and profunda artery. Bypass graft had flow through this filling the left common femoral artery, profunda, femoral artery. Moderate stenosis at the proximal anastomosis corresponding with the ultrasound. We got a wire up through here switch to a stiff Glidewire and then ballooned this area the anastomosis with a 6 x 80 EverCross for over 3 minutes. Completion was improved there did appear to be better flow through this area. We removed out the sheath put a shorter sheath and then gave 40 of protamine. He is brought to recovery with the sheath will be pulled. Sedation: This 74-year-old gentleman underwent moderate sedation given by Dr. Nando Chávez. He was monitored with EKG blood pressure and pulse ox for over the 30 minutes of the procedure. See the EMR for the complete record. 06/18/20 1318 <Electronically signed by Nando Chávez MD> Date Nando Chávez MD CC: Dr. Nando Chávez MD; Dr. Bisi Martinez, DO Signed Bisi Martinez Start: 05-02-2020 End: 05-08-2020 Abd Aortic/IVC Duplex scan Comments: See Note; NOTES: [facility] [address] [place] [address] Abd Aortic/IVC Duplex scan 05/02/20 0859 MR#: [id number] Acct: [id number] Name: MERRICK HODGES Rep #: [id number] : 1945 74 From: Nando Chávez MD Attending Dr: Dr. Nando Chávez MD Status: RE G CLI Ordering Dr: Nando Chávez MD Date: 05/02/20 Location: [facility] Sex: M C Admitted: Reason For Study: Atherosclerosis Aorta Measurements Aorta Doppler Measurements Proximal aorta measures2.10 x 2.12cm. in cross- Peak systolic flow velocities within the proximal sectional axis. aorta measure 76 cm/sec. Proximal aorta measures2.2cm. in longitudinal Peak systolic flow velocities within the mid aorta axis. measure 67.9 cm/sec. Mid aorta measures1.61 x 1.69cm. in cross- Peak systolic flow velocities within the distal sectional axis. aorta measure 73.4 cm/sec. Mid aorta measures1.67cm. in longitudinal axis. Distal aorta measures1.63 x 1.87cm. in cross- sectional axis. Distal aorta measures1.69cm. in longitudinal axis. Left Iliac Artery Left iliac artery measures 0.68 x 0.74 cm. in the cross-sectional axis. Left iliac artery measures 0.75 cm. in the longitudinal axis. Lt MATT is occluded. Right Iliac Artery Right iliac artery measures 0.88 x 0.83 cm. in the cross-sectional axis. Right iliac artery measures 0.91 cm. in the longitudinal axis. Peak systolic velocity in the right iliac artery measures 136.5 cm/sec. Procedure Aorta IVC Iliac vasculature or bypass grafts 24496. Left iliac bypass graft visualized in 04/03/2019, appears to be a branch coming off the distal aorta. Pt only has one bypass which is a Rt fem to Lt fem. Exam performed in department. Interpretation Summary Aorta and right iliac patent and norml flow. Known left common iliac occlussion. ____ _ Ordering Physician: Nando Chávez Referring Physician: Bisi Martinez M.D. Performed By: Connie Ravi RVT and Student 05/08/20813 Date Nando Chávez MD CC: Dr. Nando Chávez MD; Dr. Bisi Martinez DO Date Dictated: 05/02/2059 Date Transcribed: 05/08/20813 Hook Puller: Signed Bisi Martinez Start: 05-02-2020 End: 05-08-2020 Ankle Brachial Index Comments: See Note; NOTES: [facility] [address] [place] [address] Ankle Brachial Index 05/02/20 0851 MR#: [id number] Acct: [id number] Name: MERRICK HODGES Rep #: [id number] : 1945 74 From: Nando Chávez MD Attending Dr: Dr. Nando Chávez MD Status: RE G CLI Ordering Dr: Nando Chávez MD Date: 05/02/20 Location: [facility] Sex: M C Admitted: Reason For Study: Atherosclerosis Procedure A bilateral lower extremity continuous wave Doppler with analog waveform analysis and ankle brachial indexes. Left Segmental Pressures Left brachial= 164mmHg. Left posterior tibial artery = 160mmHg. Left dorsalis pedis artery = 158mmHg. The left dorsalis pedis waveforms are triphasic. The left posterior tibial artery waveforms are triphasic. Right Segmental Pressures Right brachial= 157mmHg. Right posterior tibial artery = 163mmHg. Right dorsalis pedis artery = 165mmHg. The right dorsalis pedis waveforms are triphasic. The right posterior tibial artery waveforms are triphasic. Indices The right ankle brachial index by the dorsalis pedis is 1.01. The right ankle brachial index by the posterior tibial artery is 0.99. The left ankle brachial index by the dorsalis pedis is 0.96. The left ankle brachial index by the posterior tibial artery is 0.98. Interpretation Summary Bilateral normal at rest with triphasic flow and CLARISSA 1.01 and 0.98. ____ _ Ordering Physician: Nando Chávez Referring Physician: Bisi Martinez M.D. Performed By: Connie Ravi RVT and Student 05/08/20814 Date Nando Chávez MD CC: Dr. Nando Chávez MD; Dr. Bisi Martinez DO Date Dictated: 05/02/20850 Date Transcribed: 05/08/20814 Hook Puller: Signed Bisi Martinez Start: 05-02-2020 End: 05-08-2020 US Art Duplex Bilat Lower Ext Comments: See Note; NOTES: [facility] [address] [place] [address] US Art Duplex Bilat Lower Ext 05/02/20922 MR#: [id number] Acct: [id number] Name: MERRICK HODGES Rep #: [id number] : 1945 74 From: Nando Chávez MD Attending Dr: Dr. Nando Chávez MD Status: RE G CLI Ordering Dr: Nando Chávez MD Date: 05/02/20 Location: [facility] Sex: M C Admitted: Reason For Study: Atherosclerosis Right Velocities Left Velocities Ext. Iliac Artery, dist = 211.1 cm./sec. No flow noted in distal EIA. Common Femoral Artery, mid = 187.7 cm./sec. Common Iliac Artery, mid = 70.0 cm./sec. Supf Femoral Artery, prox = 130.9 cm./sec. Supf. Femoral Artery, prox = 118.5 cm./sec. Supf Femoral Artery, mid = 92.4 cm./sec. Supf. Femoral Artery, mid = 83.8 cm./sec. Supf Femoral Artery, dist. = 110.6 cm./sec. Supf. Femoral Artery, dist = 78.3 cm./sec. Profunda Femoral Artery = 154.3 cm./sec. Profunda Femoral Artery = 50.5 cm./sec. Popliteal Artery, mid = 57.5 cm./sec. Popliteal Artery, mid = 37.2 cm./sec. Post. Tibial Artery, prox = 84.6 cm./sec. Post. Tibial Artery, prox = 38.6 cm./sec. Post. Tibial Artery, mid = 71.1 cm./sec. Post Tibial Artery, mid = 26.5 cm./sec. Post. Tibial Artery, dist = 44.1 cm./sec. Post Tibial Artery, dist. = 43.8 cm./sec. Peroneal Artery, prox = 51.4 cm./sec. Peroneal Artery, prox = 37.7 cm./sec. Peroneal Artery, mid = 61.0 cm./sec. Peroneal Artery, mid = 35.1 cm./sec. Peroneal Artery,dist = 26.7 cm./sec. Peroneal Artery,dist. = 26.3 cm./sec. Ant. Tibial Artery, prox = 58.5 cm./sec. Ant.Tibial Artery, prox = 63.8 cm./sec. Ant. Tibial Artery, mid = 59.4 cm./sec. Ant Tibial Artery, mid = 48.1 cm./sec. Ant. Tibial Artery, dist = 50.9 cm./sec. Ant. Tibial Artery, distal = 57.8 cm./sec. Right fem to left fem Bypass Prox Anast 339.7 cm/s Prox Graft 208.8 cm/s Mid Graft 166.8 cm/s Dist Graft 157.0 cm/s Dist Anast 182.8 cm/s. Procedure Exam performed in department. Interpretation Summary Bilateral legs with no stenosis and tripasic flow. Elevated psv at right proximal anastamosis and may need further evaluation. ____ _ Ordering Physician: Nando Chávez Referring Physician: Bisi Maritnez M.D. Performed By: Connie Ravi RVT and Student 05/08/20812 Date Nando Chávez MD CC: Dr. Nando Chávez MD; Dr. Bisi Martinez, Date Dictated: 05/02/20922 Date Transcribed: 05/08/20812 Hook Puller: Signed Bisi Martinez Start: 04-04-2020 End: 04-04-2020 Cardiology Visit Report Comments: See Note; NOTES: [facility] [place] [address] OFFICE VISIT Date of Service: 04/04/20 MR#: [id number] Acct: [id number] Name: HODGESMERRICK VERONA Rep #: [id number] : 1945 Provider: SHERLY Olivares Age/Sex: 74/M [place] [facility] [place] Status: Signed HPI HPI History of Present Illness Details: This is a 74-year-old gentleman that presents here today for a cardiovascular follow-up. He has a history of coronary artery disease with stenting to his diagonal in September 2003. He also has a history of hypertension, peripheral vascular disease with femoral-femoral bypass surgery, hyperlipidemia and obstructive sleep apnea. From a cardiac standpoint, patient is doing well. Although he does have some fatigue. He does not have any chest discomfort/heaviness/tig htness. His exercise tolerance is stable for his age. He does not have any worsening symptoms of shortness of breath. He denies any PND. He does not have any orthopnea. He does not have any symptoms of congestive heart failure. He does not have any palpitations that he is aware of. He does occasionally have lightheadedness/dizzines s with positional changes. He does not have any near-syncope or syncope. He does not have any lower extremity edema. He does have symptoms of claudication, he does follow with Dr. Chávez. He is due for a follow up. He does have back pain. Intake Vital Signs 04/04/20 Height 5 ft 10 in 04/04/20 Weight: 177 lb 04/04/20 BP 145/76 H 04/04/20 Blood Pressure Location Lt brachial 04/04/20 Position Sitting 04/04/20 Respiration 18 04/04/20 Pulse 78 04/04/20 Pulse Source Monitor 04/04/20 Pulse Oximetry (%) 98 Intake Visit Reasons: 6 M FU Clinical Supervisor Required: No Accompanied by: None Is patient in pain?: No Allergies atorvastatin [From Lipitor] Adverse Reaction (Intermediate, Verified 04/04/20 09:30) Myalgias Medications Amlodipine [Norvasc] 5 mg PO BID 04/16/17 [History Confirmed 04/04/20] Fosinopril Sodium 20 mg PO DAILY 04/16/17 [History Confirmed 04/04/20] Gabapentin [Neurontin] 300 mg PO TID 04/16/17 [History Confirmed 04/04/20] Multivitamin [Daily Multiple Vitamin] 1 tab PO DAILY 04/16/17 [History Confirmed 04/04/20] Rosuvastatin Calcium [Crestor] 5 mg PO BID 04/16/17 [History Confirmed 04/04/20] aspirin 81 mg tablet,delayed release 81 mg PO QDAY 01/06/18 [History Confirmed 04/04/20] metoprolol tartrate 25 mg tablet 12.5 mg PO BID tab 08/01/18 [History Confirmed 04/04/20] clopidogrel 75 mg tablet 75 mg PO DAILY #30 tab 08/25/19 [Rx Confirmed 04/04/20] FOR[facility]LY [facility] Medical History Essential hypertension (Chronic) Peripheral arterial disease (Chronic) History of non-ST elevation myocardial infarction (NSTEMI) (Chronic) Prinzmetal angina (Chronic) 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) Hyperlipidemia (Chronic) Overweight (BMI 25.0-29.9) (Chronic) Chronic back pain (Chronic) Lumbar stenosis (Chronic) Hypertension (Inactive) Surgical History S/P femoral-femoral bypass surgery (Chronic) History of left heart catheterization (Chronic) Family History Father , of cancer Myocardial infarction, Onset Age: 70 Cancer Mother , age 66 Bleeding in brain due to brain aneurysm Brother Myocardial infarction, Onset Age: 62 CAD (coronary artery disease) Social History (Updated 04/04/20 @ 13:45 by Caryn DUBOIS, PA) Smoking Status: Former smoker how long ago did patient quit smokin ROS Const Const: Positive for fatigue; negative for weakness, fever(s) or headache(s) Eyes Eyes: Negative for blind spots, loss of peripheral vision or transient loss of vision ENT ENT: Negative for headache(s), dizziness, tinnitus or Nosebleed/epistaxis Cardio Chest Pain: No Palpitations: No Edema: None Muscle aches with walking: None Resp Respiratory: Negative for SOB with activity, SOB at rest, SOB orthopnea SOB lying down or Cough GI GI: Negative nausea, vomiting, heartburn or vomiting blood/hematemesis : Negative for hematuria Musc Musc: Positive for muscle aches/ myalgia Neuro Neuro: Negative for dizziness, lightheadedness, near syncope, syncope, orthostatic symptoms, headache(s) or weakness Artie Hematologic/Lymphatic: Negative for easy bleeding Endo Endo: Positive for fatigue Cardiology Exam Const Appearance: cooperative, no acute distress and well developed Orientation: alert, awake and oriented x3 Head Head: normocephalic and atraumatic Mouth: moist mucous membranes Eyes General: appearance normal, both eyes and all related structures Conjunctivae: conjunctivae normal Pupils: PERRL EOM: EOM intact bilaterally Neck Neck: normal visual inspection, no lymphadenopathy and no JVD Carotids: Negative bruit Neck Mass: Negative Neck mass Chest Chest inspection: normal inspection of the chest and symmetric chest movement Auscultation: Bilateral: Clear to Auscultation Cardio Palpation: normal PMI Rate: regular rate Rhythm: regular rhythm Heart sounds: S1 normal and S2 normal; negative rub, gallop or murmur GI GI: normal to inspection, soft, no hepatosplenomegaly and bowel sounds present; negative tender Neuro General: alert, awake, oriented x3, CN's II-XI intact bilaterally and moves all extremities Extremities Pulses: Normal: Right Posterior Tibial Pulse, Left Posterior Tibial Pulse, Right Radial Pulse, Left Radial Pulse Lower Extremity Edema: None: Bilateral Psych Psychological: normal affect Assessment Plan 1. ASHD (arteriosclerotic heart disease) I25.10 Plan Stable, from a cardiac standpoint patient does not have any symptoms of angina. We recommend that they continue with current aggressive medical management and risk factor modification. 2. Essential hypertension I10 Plan Blood pressure is well controlled on current medications, we do not recommend any changes at this time. 3. Peripheral arterial disease I73.9 Plan Patient was previously established with Dr. Chávez, however he states that he is overdue for a follow-up. He would like us to assist with getting him another appointment with him. He does have symptoms of claudication however they do appear similar. Did encourage medical management and exercise. Orders Referrals: Vascular 4. Hyperlipidemia, unspecified hyperlipidemia type E78.5 Plan Patient will continue with his moderate intensity statin. Recent lipid profile demonstrates total cholesterol 127, HDL 47, LDL 55. Plan Detail Follow Up 04/04/20 (keep as is) Coding Level of Care Code Off vis,est,level 3 Diagnoses ASHD (arteriosclerotic heart disease) I25.10 Essential hypertension I10 Peripheral arterial disease I73.9 Hyperlipidemia, unspecified hyperlipidemia type E78.5 ?Hyperlipidemia type: unspecified Coding Level of Care Code Off vis,est,level 3 Diagnoses ASHD (arteriosclerotic heart disease) I25.10 Essential hypertension I10 Peripheral arterial disease I73.9 Hyperlipidemia, unspecified hyperlipidemia type E78.5 ?Hyperlipidemia type: unspecified Supplemental Info Supplemental Information Stress test 2018: Normal pharmacologic myocardial perfusion stress test. Preserved ejection fraction. Labs LDL Cholesterol 55 mg/dL (0-130) 02/24/20 HDL Cholesterol 47 mg/dL (40-) 02/24/20 Triglycerides 123 mg/dL (-199) 02/24/20 VLDL Cholesterol 25 mg/dL (5-40) 02/24/20 Diagnostics Stress Test Nuclear Medicine 05/31/18 Stress Test 05/31/18 04/04/20 5435 <Electronically signed by Caryn Newton> Date Caryn DUBOIS Cosign Signature: Date (if applicable) CC: DO Bisi Bobo Start: 03-22-2020 End: 03-22-2020 Hips B/L min 2 views w/ Pelvis Comments: See Note; NOTES: [facility] [address] [place] [address] Hips B/L min 2 views w/ Pelvis MR#: [id number] Acct: [id number] Name: MERRICK HODGES Rep #: [id number] : 1945 M 74 From: Sung Dozier PCP: Dr. Bisi Martinez DO Status: DEP AMB Study: Hips B/L min 2 views w/ Pelvis Date of Exam: 1 Exam# [id number] Ordering Dr: Bisi Martinez DO STUDY: X-RAY - PELVIS AND BILATERAL HIPS REASON FOR EXAM: Bilateral hip pain. TECHNIQUE: AP view of the pelvis.? 2 views of the right hip, and 2 views of the left hip were obtained. COMPARISON: Radiographs 09/01/2017. FINDINGS: There is vascular calcification. There are postsurgical changes of the lower lumbar spine. There are surgical clips anterior to the femoral heads bilaterally. Normal bilateral iliac wings, sacroiliac joints and visualized sacrum. Normal bilateral superior and inferior pubic rami. Normal pubic symphysis. Normal bilateral ischial tuberosities. Normal visualized right femoral head. Normal right acetabulum. Normal right hip joint. Normal visualized left femoral head. Normal left acetabulum. Normal left hip joint. RAD/Hips B/L min 2 views w/ Pelvis IMPRESSION: Unremarkable x-ray examination of the osseous pelvis and bilateral hips. Electronically Signed: Sung Engel MD at 13:14 EDT Tel , Service support , CC: Dr. Bisi Martinez DO Hook Puller: Signed Bisi Martinez Work Phone: Start: 04-19-2019 End: 04-19-2019 Operative Report Comments: See Note; NOTES: [facility] Medical Records Department [address] [place] [address] Operative Report 04/19/19 0829 MR#: [id number] Acct: [id number] Name: MERRICK HODGES Rep #: [id number] : 1945 73 From: Nando Chávez MD PCP: Bisi Martinez DO Status: [place] [facility] Location: [facility] Problem List (1) Peripheral arterial disease Status: Chronic (2) S/P femoral-femoral bypass surgery Status: Chronic Comment: Right to left fem-fem bypass ? year and facitily; f/u angiography of aorta 01/15/2014 @ [facility] Report of Operation Date of Procedure: 04/19/19 Pre-Operative Diagnosis: Peripheral arterial disease Post-Operative Diagnosis: The same Surgery/Procedure Performed:: 1. Ultrasound-guided access retrograde left brachial artery. 2. Aortogram with bilateral iliofemoral angiogram in different views. Type of Anesthesia:: Sedation,Conscious Description of Procedure: Patient brought to the [facility]. Underwent the appropriate timeout consent. Prepped and draped in a sterile fashion. We did ultrasound-guided access retrograde left brachial artery. Put a Glidewire and and then a 5 Bhutanese sheath. We gave 3000 units of heparin. We got the wire down the descending thoracic aorta and brought in a Kumpe catheter. From the distal aorta we did an aortogram with bilateral iliofemoral angiogram. It showed the aorta through the right common iliac and external iliac, and internal iliac are widely patent. The right common femoral artery profunda proximal SFA were also widely patent. It appeared the femorofemoral bypass was also widely patent with no significant stenosis at either anastomosis. There was filling into the left common femoral profunda and SFA that also appeared widely patent. There was a lumbar and a circumflex vessel off of the profunda that was filling the collaterals to the internal iliac artery on the left. There was adequate flow through this but with some delayed imaging. There is some increase collaterals noted into the area of the pelvis on the left as well. We checked this in CUMMINS and TARA and still showed no stenosis throughout. We then gave 20 protamine removed out the wire sheath held pressure with good hemostasis he was brought to recovery in stable condition. Sedation: This 73-year-old gentleman underwent moderate sedation given by Dr. Nando Chávez. He was moderate EKG blood pressure and pulse ox for over the 30 minutes of the procedure. See the EMR for complete record 04/19/19 0833 <Electronically signed by Nando Chávez MD> Date Nando Chávez MD CC: Nando Chávez MD; Bisi Martinez DO Signed Bisi Martinez Start: 04-05-2019 End: 04-05-2019 Arterial Comments: See Note; NOTES: [facility] [address] [place] [address] Ankle Brachial Index 04/03/19 0856 MR#: [id number] Acct: [id number] Name: MERRICK HODGES Rep #: [id number] : 1945 73 From: Nando Chávez MD Attending Dr: Nando Chávez MD Status: REG CLI Ordering Dr: Nando Chávez MD Date: 04/03/19 Location: Sex: M C Admitted: Reason For Study: Atherosclerosis Procedure A bilateral lower extremity continuous wave Doppler with analog waveform analysis and ankle brachial indexes. Left Segmental Pressures Left brachial= 159mmHg. Left posterior tibial artery = 160mmHg. Left dorsalis pedis artery = 159mmHg. The left dorsalis pedis waveforms are triphasic. The left posterior tibial artery waveforms are triphasic. Right Segmental Pressures Right brachial= 162mmHg. Right posterior tibial artery = 180mmHg. Right dorsalis pedis artery = 173mmHg. The right dorsalis pedis waveforms are triphasic. The right posterior tibial artery waveforms are triphasic. Indices The right ankle brachial index by the dorsalis pedis is 1.07. The right ankle brachial index by the posterior tibial artery is 1.11. The left ankle brachial index by the dorsalis pedis is 0.98. The left ankle brachial index by the posterior tibial artery is 0.99. Interpretation Summary Resting ankle-brachial indices appear bilaterally normal. Ordering Physician: Nando Chávez Referring Physician: Bisi Martinez M.D. Performed By: Connie Ravi RVT 04/05/19 112 Date Nando Chávez MD CC: Nando Chávez MD; Bisi Martinez DO Date Dictated: 04/03/19 0856 Date Transcribed: 04/05/19 112 Hook Puller: Signed Bisi Frey: 04-05-2019 End: 04-05-2019 Abd Aortic/IVC Duplex Scan Comments: See Note; NOTES: [facility] [address] [place] [address] Abd Aortic/IVC Duplex scan 04/03/19 1003 MR#: [id number] Acct: [id number] Name: MERRICK HODGES Rep #: [id number] : 1945 73 From: Nando Chávez MD Attending Dr: Nando Chávez MD Status: REG CLI Ordering Dr: Nando Chávez MD Date: 04/03/19 Location: Sex: M C Admitted: Reason For Study: Atherosclerosis Aorta Measurements Aorta Doppler Measurements Proximal aorta measures1.52 x 1.54cm. in cross- Peak systolic flow velocities within the proximal sectional axis. aorta measure 76.9 cm/sec. Proximal aorta measures1.49cm. in longitudinal Peak systolic flow velocities within the mid aorta axis. measure 52.3 cm/sec. Mid aorta measures1.56 x 1.56cm. in cross- Peak systolic flow velocities within the distal sectional axis. aorta measure 79.3 cm/sec. Mid aorta measures1.53cm. in longitudinal axis. Distal aorta measures1.27 x 1.29cm. in cross- sectional axis. Distal aorta measures1.30cm. in longitudinal axis. Left Iliac Artery Left iliac artery measures 0.56 x 0.56 cm. in the cross-sectional axis. Left iliac artery measures 0.58 cm. in the longitudinal axis. Lt iliac artery is occluded. Lt bypass graft, prox, 201.1 cm/sec. Lt bypass graft, mid, 151.8 cm/sec. Right Iliac Artery Right iliac artery measures 0.87 x 0.91 cm. in the cross-sectional axis. Right iliac artery measures 0.89 cm. in the longitudinal axis. Peak systolic velocity in the right iliac artery measures 273.1 cm/sec. Procedure Aorta IVC Iliac vasculature or bypass grafts [address]. Exam performed in department. Interpretation Summary 1. Right iliac moderate stenosis. 2. Left iliac occluded. 3. Bypass graft patent. Ordering Physician: Nando Chávez Referring Physician: Bisi Martinez M.D. Performed By: Connie Ravi RVT 04/05/19 0843 Date Nando Chávez MD CC: Nando Chávez MD; Bisi Martinez DO Date Dictated: 04/03/19 1003 Date Transcribed: 04/05/19842 Hook Puller: Signed Bisi Martinez Start: 03-13-2019 End: 03-13-2019 Cardiology Visit Report Comments: See Note; NOTES: [facility] [address] [place] [address] OFFICE VISIT Date of Service: 03/13/19 MR#: [id number] Acct: [id number] Name: MERRICK HODGES Rep #: [id number] : 1945 Provider: Mau Palencia MD Age/Sex: 73/M [place] [facility] [place] Status: Signed HPI HPI History of Present Illness Details: HPI Chief Complaint: Routine f/u Details: MERRICK HDOGES, is a 73 M who is returning for followup of his coronary artery disease status post angioplasty and drug-eluting stenting of his diagonal with a 2.5 X12 Taxus, at [facility] on 09/21/03, with associated documented coronary vasospasm. his remaining coronary arteries appeared to be free of significant disease. Since his last visit Mr. Hodges has had no chest, neck, jaw, or [...] EKG or echocardiographic changes consistent with ischemia. On 05/31/18 the patient underwent a non-walking nuclear stress test which was negative for inducible ischemia. From a cardiac standpoint, he denies any exertional chest pain, angina or shortness of breath. He is taking and tolerating his medicines well. he appears to be tolerating his crestor well. He exercises regularly mostly by swimming in the summertime. Patient's previous complaint at our last visit was recurrent lower extremity claudication symptoms. In August [...] intensity to his claudication prior to his left-sided femorol-femoral bypass by Dr. Tamayo at [facility] about 20 years ago. He has not seen Dr. Baugh or Dr. Tamayo in the recent past. He underwent exercise ABIs on 08/09/2018 which were normal at rest, but abnormal bilaterally. Once again, the patient's main complaint is right lower extremity claudication symptoms particularly at night where his develops right calf cramping, requiring him to get up and walk it off. Patient also states that his claudication symptoms are worsening with exertion, particularly of his left buttock, radiating into his right buttock. Patient attempted to take Pletal, but developed significant bruising and had to stop it. He is currently on baby aspirin and plavix. Denies any exertional chest pain symptoms. Patient had ABIs on 08/10/2018 which showed bilateral ABIs at rest or 1.1 and 0.95, followed by 0.79 and 0.59 with exercise. In our office today's blood pressure is 124/70 and pulse is 72 and regular. His physical exam shows regular rate and rhythm, normal S1/S2, no S3, S4 or murmurs. He has 2+ bilateral dorsalis pedis pulses, and 1+ left-sided posterior tibialis pulses. He has no edema. His lipids as of 06/22/15 show an HDL of 51 and LDL of 59. His lipids as of 06/30/17 show an HDL of 57 and an LDL of 56. His lipids as of 12/27/17 show an HDL of 60 and an LDL of 60. His lipids as of 07/22/18 show an LDL of 54 and an HDL of 63. His lipids as of 02/28/2019 show an LDL of 44 and HDL of 51. Intake Vital Signs03/13/19 Height 5 ft 10 in 03/13/19 Weight: 179 lb 03/13/19 Body Mass Index (BMI) 25.7 Intake Visit Reasons: 6 M FU Allergies atorvastatin [From Lipitor] Adverse Reaction (Intermediate, Verified 03/13/19 13:09) Myalgias Medications Amlodipine [Norvasc] 5 mg PO BID 04/16/17 [History Confirmed 03/13/19] Fosinopril Sodium 20 mg PO DAILY 04/16/17 [History Confirmed 03/13/19] Gabapentin [Neurontin] 600 mg PO QHS 04/16/17 [History Confirmed 03/13/19] Multivitamin [Daily Multiple Vitamin] DAILY 04/16/17 [History Confirmed 03/13/19] Rosuvastatin Calcium [Crestor] 10 mg PO QHS 04/16/17 [History Confirmed 03/13/19] aspirin 81 mg tablet,delayed release 81 mg PO QDAY 01/06/18 [History Confirmed 03/13/19] clopidogrel 75 mg tablet 75 mg PO DAILY #30 tab 08/01/18 [Rx Confirmed 03/13/19] metoprolol tartrate 25 mg tablet 25 mg PO BID tab 08/01/18 [History Confirmed 03/13/19] [facility]LY [facility] Medical History Essential hypertension (Chronic) Peripheral arterial disease (Chronic) History of non-ST elevation myocardial infarction (NSTEMI) (Chronic) Prinzmetal angina (Chronic) 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) Hyperlipidemia (Chronic) Overweight (BMI 25.0-29.9) (Chronic) Chronic back pain (Chronic) Lumbar stenosis (Chronic) Hypertension (Inactive) Surgical History S/P femoral-femoral bypass surgery (Chronic) History of left heart catheterization (Chronic) Family History Father , of cancer Myocardial infarction, Onset Age: 70 Cancer Mother , age 66 Bleeding in brain due to brain aneurysm Brother Myocardial infarction, Onset Age: 62 CAD (coronary artery disease) Social History (Updated 03/13/19 @ 13:29 by Mau Palencia MD) Smoking Status: Former smoker how long ago did patient quit smokin ROS Const Const: Positive for other (Feels well other than claudication pain in hip and leg, abn clarissa); negative for fatigue, weakness, body ache, fever(s), headache(s), chills, frequent falls, night sweats, daytime sleepiness, difficulty sleeping, excessive sweating, weight gain, weight loss, increased appetite, poor appetite or anorexia Eyes Eyes: Negative for blind spots, loss of peripheral vision, transient loss of vision, blurry vision, change in vision, double vision, floaters, tunnel vision or other ENT ENT: Negative for headache(s), dizziness, hearing loss, tinnitus, Nosebleed/epistaxis, balance problems, post nasal drip, lip swelling, tongue swelling, bleeding gums, hoarseness, neck pain, dry mouth or other Cardio Chest Pain: No Palpitations: No Edema: Bilateral (right > left, has shellie venous insuff and PAD) Muscle aches with walking: Left (has hip and leg pain with walking. ) Resp Respiratory: Negative for SOB with activity, SOB at rest, SOB orthopnea\SOB lying down, Cough, Coughing up blood/hemoptysis, chest congestion, pain on [...] Musc: Positive for muscle aches/ myalgia (leg pain with walking, back pain) and joint pain; negative for muscle weakness or balance problems Skin Skin: Negative redness, non-healing lesions, rash, unusual bruising, skin ulcer, wounds, jaundice or other Neuro Neuro: Negative for dizziness, lightheadedness, near syncope, syncope, orthostatic symptoms, frequent falls, headache(s), weakness, confusion, memory loss, restless legs, blurry vision, double vision, vertigo, seizures, lack of coordination or other Artie Hematologic/Lymphatic: Negative for easy bleeding, easy bruising, enlarged lymph nodes or other Endo Endo: Negative for fatigue, cold intolerance, heat intolerance, excessive sweating, flushing, increased thirst/drinking, increased hunger, hair loss, hair growth or other Psych Psych: Negative for anxiety, depression, thoughts of harming anyone, thoughts of harming yourself, visual hallucinations, panic attacks or audible hallucinations Allergy Allergy/Immunology: Negative for throat swelling, Negative for tongue swelling, Negative for hives, Negative for rash, Negative for lip swelling Cardiology Exam Const Appearance: cooperative, healthy appearing and no acute distress Nutritional Appearance: well nourished Orientation: alert, oriented x3 and oriented to person Head Head: normal to inspection, normocephalic and atraumatic Nose: external nose normal Face and Sinus: [...] and bowel sounds present Neuro General: alert, awake, oriented x3, CN's II-XI intact bilaterally and moves all extremities Skin Skin: no rashes or lesions noted Extremities Pulses: Normal: Right Femoral Pulse, Left Femoral Pulse, Right Dorsalis Pedis Pulse, Left Dorsalis Pedis Pulse, Right Posterior Tibial Pulse, Left Posterior Tibial Pulse, Right Radial Pulse, Left Radial Pulse Lower Extremity Edema: None: Bilateral Psych Psychological: normal affect Assessment AND Plan 1. 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 I25.111 PTCA with stent of Ostium of firts major dx 09/21/2003 Plan 1. Coronary artery disease: Patient denies any chest pain symptoms or angina. He is taking and tolerating his medicines well. His most recent stress test was a non-walking nuclear stress test which took place in May 2018 which was reportedly negative for inducible ischemia. No indication for repeat cardiac catheterization at this time. I recommended the patient continue his baby aspirin, Plavix, amlodipine, fosinopril and metoprolol. 2. Hyperlipidemia, unspecified hyperlipidemia type E78.5 Plan 2. Hyperlipidemia: His LDL and HDL cholesterol are at goal. Continue Crestor. 3. Peripheral arterial disease I73.9 Plan 3. Peripheral arterial disease: The patient has abnormal exercise ABIs bilaterally, and I recommended the patient follow-up with Dr. Chávez in the very near future for repeat bilateral lower extremity angiogram, as well as to look at possible bilateral internal iliac arterial angiogram for his buttock claudication. It is also possible that his symptoms may be neurologically related as he has previous back surgeries x2, the most recent of which appeared to be in 2017 with minimal improvement of his pain. In addition, the patient may consider going back to see Dr. Tamayo at [facility] who performed his femorofemoral bypass 20 years ago. 4. Return to office in 6 months. This note was generated using a voice recognition system and there may be incorrect words, spelling or punctuation that were not noted when reviewing the office note prior to saving. Orders Referrals: Plan Detail Other Orders Referrals: Follow Up +6M ([place]) Coding Level of Care Code Off vis,est,level 3 Diagnoses 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 I25.111 Hyperlipidemia, unspecified hyperlipidemia type E78.5 Hyperlipidemia type: unspecified Peripheral arterial disease I73.9 Coding Level of Care Code Off vis,est,level 3 Diagnoses 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 I25.111 Hyperlipidemia, unspecified hyperlipidemia type E78.5 Hyperlipidemia type: unspecified Peripheral arterial disease I73.9 Supplemental Info Supplemental Information Labs LDL Cholesterol 44 mg/dL (0-130) 09/17/19 HDL Cholesterol 51 mg/dL (40-) 02/28/19 Triglycerides 171 mg/dL (-199) 02/28/19 VLDL Cholesterol 34 mg/dL (5-40) 02/28/19 Diagnostics Stress Test Nuclear Medicine 05/31/18 Stress Test 05/31/18 03/13/19 1329 <Electronically signed by Mau Palencia MD> Date Mau Palencia MD Cosigner Signature: Date (if applicable) CC: Bisi Green Start: 08-10-2018 End: 08-10-2018 Arterial Comments: See Note; NOTES: [facility] Cardiovascular Services [address] [place] [id number] Lower Ext Art Exam w/ Exercise 08/09/18 0957 MR#: [id number] Acct: [id number] Name: MERRICK HODGES Rep #: [id number] : 1945 72 From: Nando Chávez MD Attending Dr: Mau Palencia MD Status: REG CLI Ordering Dr: Mau Palencia MD Date: 08/09/18 Location: [facility] Sex: M C Admitted: Reason For Study: Claudication Procedure A bilateral lower extremity continuous wave Doppler with analog waveform analysis,segmental pressures,and ankle brachial indexes with exercise. Left Segmental Pressures Left brachial= 155mmHg. Left thigh = 158mmHg. Left calf = 155mmHg. Left posterior tibial artery = 142mmHg. Left dorsalis pedis artery = 147mmHg. The left dorsalis pedis waveforms are triphasic. The left posterior tibial artery waveforms are triphasic. Right Segmental Pressures Right brachial= 149mmHg. Right posterior tibial artery = 169mmHg. Right dorsalis pedis artery = 171mmHg. The right dorsalis pedis waveforms are triphasic. The right posterior tibial artery waveforms are triphasic. Indices The right ankle brachial index by the dorsalis pedis is 1.10. The right ankle brachial index by the posterior tibial artery is 1.09. The right post exercise ankle brachial index is 0.79. The left ankle brachial index by the dorsalis pedis is 0.95. The left ankle brachial index by the posterior tibial artery is 0.92. The left post exercise ankle brachial index is 0.59. Interpretation Summary 1. Bilateral legs with normal clarissa at rest at 1.1/0.95 2. Post exercise wiht moderate drop suggesting occlussive disease with post clarissa 0.79/0.59. Ordering Physician: Mau Palencia Referring Physician: Bisi Martinez M.D. Performed By: Lisa Markham RVT and Student 08/10/18 1143 Date Nando Chávez MD CC: Mau Palencia MD; Bisi Martinez DO Date Dictated: 08/09/18 0957 Date Transcribed: 08/10/18 1143 Hook Puller: Signed Bisi Martinez Start: 08-01-2018 End: 08-01-2018 Cardiology Visit Report Comments: See Note; NOTES: [facility] [place] [address] OFFICE VISIT Date of Service: 08/01/18 MR#: [id number] Acct: [id number] Name: MERRICK HODGES Rep #: [id number] : 1945 Provider: Mau Palencia MD Age/Sex: 72/M Location: [facility] Status: Signed HPI HPI Chief Complaint: Routine f/u Details: MERRICK HODGES, is a 72 M who is returning for followup of his coronary artery disease status post angioplasty and drug-eluting stenting of his diagonal with a 2.5 X12 taxus, at [facility] on 09/21/03, with associated documented coronary vasospasm. his remaining coronary arteries appeared to be free of significant disease. Since his last visit Mr. Hodges has had no chest, neck, jaw, or [...] EKG or echocardiographic changes consistent with ischemia. On 05/31/18 the patient underwent a non-walking nuclear stress test which was negative for inducible ischemia peer From a cardiac standpoint, he denies any exertional chest pain, angina or shortness of breath. He is taking and tolerating his medicines well. he appears to be tolerating his Lipitor well. He exercises regularly mostly by swimming in the summertime. Patient's previous complaint at her last visit was recurrent lower extremity claudication symptoms. In August [...] or Dr. Tamayo in the recent past. Once again, the patient's main complaint is right lower extremity claudication symptoms particularly at night where his develops right calf cramping, requiring him to get up and walk it off. Patient also states that his claudication symptoms are worsening with exertion. Patient attempted to take Pletal, but developed significant bruising and had to stop it. He is currently on baby aspirin only. Denies any exertional chest pain symptoms. In our office today's blood pressure is 140/70 and pulse is 80 and regular. His physical exam is as below. His lipids as of 06/22/15 show an HDL of 51 and LDL of 59. His lipids as of 06/30/17 show an HDL of 57 and an LDL of 56. His lipids as of 12/27/17 show an HDL of 60 and an LDL of 60. His lipids as of 07/22/18 show an LDL of 54 and an HDL of 63. Intake Vital Signs08/01/18 Height 5 ft 10 in 08/01/18 Weight: 178 lb 08/01/18 Body Mass Index (BMI) 25.5 08/01/18 Blood Pressure 140/70 H Intake Visit Reasons: 6 M FU Allergies atorvastatin [From Lipitor] Adverse Reaction (Intermediate, Verified 08/01/18 13:33) Myalgias Medications Amlodipine [Norvasc] 5 mg PO BID 04/16/17 [History Confirmed 08/01/18] Fosinopril Sodium 20 mg PO DAILY 04/16/17 [History Confirmed 08/01/18] Gabapentin [Neurontin] 600 mg PO QHS 04/16/17 [History Confirmed 08/01/18] Multivitamin [Daily Multiple Vitamin] DAILY 04/16/17 [History Confirmed 08/01/18] Rosuvastatin Calcium [Crestor] 10 mg PO QHS 04/16/17 [History Confirmed 08/01/18] nitroglycerin 0.4 mg sublingual tablet 0.4 mg SUBLINGUAL Q5-15M PRN 07/02/17 [History Confirmed 08/01/18] aspirin 81 mg tablet,delayed release 81 mg PO QDAY 01/06/18 [History Confirmed 08/01/18] clopidogrel 75 mg tablet 75 mg PO DAILY #30 tab 08/01/18 [Rx Confirmed 08/01/18] metoprolol tartrate 25 mg tablet 25 mg PO BID tab 08/01/18 [History Confirmed 08/01/18] [facility] Medical History Essential hypertension (Chronic) Peripheral arterial disease (Chronic) History of non-ST elevation myocardial infarction (NSTEMI) (Chronic) Prinzmetal angina (Chronic) 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) Hyperlipidemia (Chronic) Overweight (BMI 25.0-29.9) (Chronic) Chronic back pain (Chronic) Lumbar stenosis (Chronic) Hypertension (Inactive) Surgical History S/P femoral-femoral bypass surgery (Chronic) History of left heart catheterization (Chronic) Family History Father , of cancer Myocardial infarction, Onset Age: 70 Cancer Mother , age 66 Bleeding in brain due to brain aneurysm Brother Myocardial infarction, Onset Age: 62 CAD (coronary artery disease) Social History Smoking Status: Former smoker how long ago did patient quit smokin ROS Const Const: Positive for other (Still having pain in rt lower leg in spite of fem-fem bypass AND back surgery); negative for fatigue, weakness, body ache, fever(s), headache(s), chills, frequent falls, night sweats, daytime sleepiness, difficulty sleeping, excessive sweating, weight gain, weight loss, increased appetite, poor appetite or anorexia Eyes Eyes: Negative for blind spots, loss of peripheral vision, transient loss of vision, blurry vision, change in vision, double vision, floaters, tunnel vision or other ENT ENT: Negative for headache(s), dizziness, hearing loss, tinnitus, Nosebleed/epistaxis, balance problems, post nasal drip, lip swelling, tongue swelling, bleeding gums, hoarseness, neck pain, dry mouth or other Cardio Chest Pain: No Palpitations: No Edema: Right (always chronically a little swollen (NOT from CABG, used artificial graft) Muscle aches with walking: None Resp Respiratory: [...] dysfunction or abnormal vaginal bleeding Musc Musc: Negative for muscle aches/ myalgia, muscle weakness, joint pain or balance problems Skin Skin: Negative redness, non-healing lesions, rash, unusual bruising, skin ulcer, wounds, jaundice or other Neuro Neuro: Negative for dizziness, lightheadedness, near syncope, syncope, orthostatic symptoms, frequent falls, headache(s), weakness, confusion, memory loss, restless legs, blurry vision, double vision, vertigo, seizures, lack of coordination or other Artie Hematologic/Lymphatic: Negative for easy bleeding, easy bruising, enlarged lymph nodes or other Endo Endo: Negative for fatigue, cold intolerance, heat intolerance, excessive sweating, flushing, increased thirst/drinking, increased hunger, hair loss, hair growth or other Psych Psych: Negative for anxiety, depression, thoughts of harming anyone, thoughts of harming yourself, visual hallucinations, panic attacks or audible hallucinations Allergy Allergy/Immunology: Negative for throat swelling, Negative for tongue swelling, Negative for hives, Negative for rash, Negative for lip swelling Cardiology Exam Const Appearance: cooperative, healthy appearing and no acute distress Nutritional Appearance: well nourished Orientation: alert, oriented x3 and oriented to person Head Head: normal to inspection, normocephalic and atraumatic Nose: external nose normal Face and Sinus: [...] and bowel sounds present Neuro General: alert, awake, oriented x3, CN's II-XI intact bilaterally and moves all [...] Peripheral arterial disease I73.9 Plan 1. Peripheral vascular disease: The patient appears to have accelerating and worsening right lower extremity claudication symptoms. She did see Dr. Baugh in the past but has not seen him for many years and has not seen Dr. Tamayo in over 10 years. He [facility], however I do not have those results in front of me. I recommended the patient undergo repeat PVRs with and without exertion, and be referred to Dr. Chávez for possible peripheral vascular angiography and possible stenting. The meantime we will continue baby aspirin and we will add Plavix 75 mg p.o. daily. He had previously tried Pletal, but developed significant bruising and this was discontinued per Orders Orders: Referrals: 2. 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 Hyperlipidemia: No exertional anginal symptoms at this time. Most recent stress test in May 2018 was negative for inducible ischemia. His blood pressure and heart rate are well-controlled. Continue baby aspirin, Plavix, fosinopril metoprolol. Orders Referrals: 3. Hyperlipidemia, unspecified hyperlipidemia type E78.5 Plan 3. Hyperlipidemia: His LDL and HDL cholesterol are at goal. Continue Crestor. 4. Return office in 6 months. This note was generated using a voice recognition system and there may be incorrect words, spelling or punctuation that were not noted when reviewing the office note prior to saving. 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 I25.111 Hyperlipidemia, unspecified hyperlipidemia type E78.5 Hyperlipidemia type: unspecified Coding Level of Care Code Off vis,est,level 3 Diagnoses Peripheral arterial disease I73.9 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 I25.111 Hyperlipidemia, unspecified hyperlipidemia type E78.5 Hyperlipidemia type: unspecified Supplemental Info Supplemental Information Labs LDL Cholesterol 54 mg/dL (0-130) 07/22/18 HDL Cholesterol 63 mg/dL (40-) 07/22/18 Triglycerides 65 mg/dL (-199) 07/22/18 VLDL Cholesterol 13 mg/dL (5-40) 07/22/18 Diagnostics Stress Test Nuclear Medicine 05/31/18 Stress Test 05/31/18 08/01/18 1350 <Electronically signed by Mau Palencia MD> Date Mau Palencia MD Cosigner Signature: Date (if applicable) CC: Bisi Green Start: 05-31-2018 End: 05-31-2018 Stress Report Comments: See Note; NOTES: [facility] Cardiovascular Services [address] [place] [id number] MR#: [id number] Acct: [id number] Name: MERRICK HODGES Rep #: [id number] : 1945 72 From: Michael Matta MD Primary Care: Bisi Martinez DO Status: REG CLI Ordering Dr: Sex: Arnaldo C Stress Test Report Pharmacologic myocardial perfusion stress [...] Matta MD> Date Michael Matta MD CC: Bisi Martinez DO Date Dictated: 05/31/18 1029 Date Transcribed: 05/31/18 1029 Hook Puller: [place] Signed Bisi Martinez Start: 01-06-2018 End: 01-06-2018 Cardiology Visit Report Comments: See Note; NOTES: [facility] [address] [place] [address]. [address] [place] [address] OFFICE VISIT Date of Service: 01/06/18 MR#: [id number] Acct: [id number] Name: MERRICK HODGES Rep #: [id number] : 1945 Provider: Mau Palencia MD Age/Sex: 72/M Location: [facility] Status: Signed HPI HPI Chief Complaint: Routine f/u Details: MERRICK HODGES, is a 72 M who is returning for followup of his coronary artery disease status post angioplasty and drug-eluting stenting of his diagonal with a 2.5 X12 taxus, at [facility] on 09/21/03, with associated documented coronary vasospasm. his remaining coronary arteries appear to be free of significant disease. Since his last visit Mr. Hodges has had no chest, neck, jaw, or [...] which have been managed by both the [facility] as well as Dr. Baugh at [facility]. In 1998 the patient apparently underwent what [...] PO BID tab 01/06/18 [History Confirmed 01/06/18] [facility] Medical History Peripheral arterial disease (Chronic) History of non-ST elevation myocardial infarction (NSTEMI) (Chronic) Prinzmetal angina (Chronic) Atherosclerotic heart disease of muscogee coronary artery with angina pectoris with documented [...] PVRs requiring [facility] extremity angiogram at the [facility]. I recommended the patient to get a copy of his lower extremity angiogram from the [facility], and seek a second opinion with either Dr. Baugh at [facility] or Dr. Tamayo who performed the surgery in the first place. In the meantime I recommended he start Pletal 100 mg p.o. twice daily for claudication symptoms. We will hold off on adding Plavix at this time. Continue baby aspirin. 2. 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 I25.111 Hyperlipidemia, unspecified hyperlipidemia type E78.5 Hyperlipidemia type: unspecified 01/06/18 1534 <Electronically signed by Mau Palencia MD> Date Mau Palencia MD Cosigner Signature: Date (if applicable) CC: Bisi Green Start: 09-01-2017 End: 09-01-2017 Hip 2-3 Views with Pelvis Comments: See Note; NOTES: [facility] Imaging Services [address] [place] [address] Hip 2-3 Views with Pelvis MR#: [id number] Acct: [id number] Name: MERRICK HODGES Rep #: [id number] : 1945 M 71 From: Olivier Dugan PCP: Bisi Martinez DO Status: REG CLI Study: Hip 2-3 Views with Pelvis Date of Exam: 09/01/17 Exam# [id number] Ordering Dr: Bisi Martinez DO STUDY: X-RAY - PELVIS AND [...] 23:55 EDT , Service support , CC: Bisi Martinez DO Hook Puller: Signed Bisi Martinez Work Phone: Start: 09-01-2017 End: 09-02-2017 L/S Spine Min 4 Views Comments: See Note; NOTES: [facility] Imaging Services [address] [place] [id number] L/S Spine Min 4 Views MR#: [id number] Acct: [id number] Name: MERRICK HODGES Rep #: [id number] : 1945 M 71 From: Olivier Dugan PCP: Bisi Martinez DO Status: REG CLI Study: L/S Spine Min 4 Views Date of Exam: 09/01/17 Exam# [id number] Ordering Dr: Bisi Martinez DO STUDY: X-RAY - LUMBAR SPINE [...] 23:58 EDT , Service support , CC: Bisi Martinez DO Hook Puller: Signed Bisi Martinez Work Phone: Start: 09-01-2017 End: 09-01-2017 S-I Jts 3 or More Views Comments: See Note; NOTES: [facility] Imaging Services [address] [place] [id number] S-I Jts 3 or More Views MR#: [id number] Acct: [id number] Name: MERRICK HODGES Rep #: [id number] : 1945 M 71 From: Olivier Dugan PCP: Bisi Martinez DO Status: REG CLI Study: S-I Jts 3 or More Views Date of Exam: 09/01/17 Exam# [id number] Ordering Dr: Bisi Martinez DO STUDY: X-RAY - SACROILIAC JOINTS [...] 23:57 EDT , Service support , CC: Bisi Martinez DO Hook Puller: Signed Bisi Martinez Work Phone: Start: 07-06-2017 End: 07-06-2017 Cardiology Visit Report Comments: See Note; NOTES: [facility] [address] [place] [address] OFFICE VISIT Date of Service: 07/06/17 MR#: [id number] Acct: [id number] Name: MERRICK HODGES Rep #: [id number] : 1945 Provider: Mau Palencia MD Age/Sex: 71/M Location[place] [facility] Status: Signed HPI 6 M FU: Chief Complaint: Routine F/u Details: HPI Referring physician: Dr. Bisi Martinez It was a pleasure seeing your patient, Merrick Hodges who is returning for followup of his coronary artery disease status post angioplasty and drug-eluting stenting of his diagonal with a 2.5 X12 taxus, at [facility] on 09/21/03, with associated documented coronary vasospasm. his remaining coronary arteries appear to be free of significant disease. Since his last visit Mr. Hodges has had no chest, neck, jaw, or arm discomfort to suggest angina, increase in shortness of breath or dyspnea on exertion, paroxysmal nocturnal dyspnea, orthopnea, or pedal edema, palpitations, near syncope, or syncope.His anginal equiivalent is actually [...] which [facility] well as Dr. Baugh at [facility]. In 1998 the patient apparently underwent what [...] completed 9 months of chemotherapy, and he recently underwent redo back surgery which unfortunately has [...] atorvastatin [From Lipitor] Adverse Reaction (Intermediate, Verified 07/02/17 08:37) Myalgias Medications Amlodipine [Norvasc] 5 mg PO BID 04/16/17 [History Confirmed 07/02/17] Aspirin E.C. [Ecotrin] 325 mg PO DAILY@0800 04/16/17 [History Confirmed 07/02/17] Colestipol Tablet [Colestid Tablet] 1 gm PO DAILY 04/16/17 [History Confirmed 07/06/17] Fosinopril Sodium 20 mg PO DAILY 04/16/17 [History Confirmed 07/02/17] Gabapentin [Neurontin] 600 mg PO QHS 04/16/17 [History Confirmed 07/06/17] Multivitamin [Daily Multiple Vitamin] DAILY 04/16/17 [History Confirmed 07/02/17] Rosuvastatin Calcium [Crestor] 10 mg PO QHS 04/16/17 [History Confirmed 07/02/17] nitroglycerin 0.4 mg sublingual tablet 0.4 mg SUBLINGUAL Q5-15M PRN 07/02/17 [History Confirmed 07/02/17] metoprolol tartrate 25 mg tablet 25 mg PO BID tab 07/06/17 [History Confirmed 07/06/17] Ejection fraction %: 65 to 70 [facility] Medical History Peripheral arterial disease (Chronic) History of non-ST elevation myocardial infarction (NSTEMI) (Chronic) Prinzmetal angina (Chronic) Atherosclerotic heart disease of [place] coronary artery with angina pectoris with documented [...] quit smokin ROS Const Const: Negative for body ache, fever(s), chills, night sweats, daytime sleepiness, difficulty sleeping, weight gain, weight loss, increased appetite, poor appetite, anorexia or other ENT ENT: Negative for balance problems Cardio Chest Pain: No Palpitations: Negative for [...] Psych Psychological: normal affect Assessment AND Plan Plan 1. Coronary artery disease: No exertional anginal symptoms at this time. No indication for any additional testing. I recommended he continue his full dose aspirin for his joint aches and coronary artery disease, amlodipine, fosinopril, and Lopressor. 2. Hyperlipidemia: His LDL and HDL cholesterol are at goal. Continue Crestor. 3. Return office in 6 months. This note was generated using a voice recognition system and there may be incorrect words, spelling or punctuation that were not noted when reviewing the office note prior to saving. Medications Discontinued: cyclobenzaprine Discontinued Reason: Pt no longer t10 mg PO TID PRN PRN Muscle Spasm aking Plan Detail Follow Up 6 Months (Talha) Coding Level of Care Code Off vis,est,level 3 07/06/17 1017 <Electronically signed by Mau Palencia MD> Date Mau Palencia MD Cosigner Signature: Date (if applicable) CC: Bisi Martinez Start: 03-04-2017 End: 03-05-2017 Spine Lumbar W/WO Contrast Comments: See Note; NOTES: [facility] Imaging Services [address] [place] [address] Spine Lumbar W/WO Contrast MR#: [id number] Acct: [id number] Name: MERRICK HODGES Rep #: [id number] : 1945 M 71 From: Juvenal Darden MD PCP: Bisi Martinez DO Status: REG CLI Study: Spine Lumbar W/WO Contrast Date of Exam: 03/04/17 Exam# [id number] Ordering Dr: Antolin Marcos MD STUDY: MRI LUMBAR SPINE WITH AND WITHOUT [...] lateral recesses. Normal bilateral intervertebral neural foramina. Normal lumbar lordosis. There is no substantial scoliosis. Normal conus medullaris that terminates at the L1 level. L1-2: Endplate spondylosis. Decreased disc height and small circumferential disc bulge. Degenerative changes of the bilateral facet joints. Mild narrowing of the central canal and bilateral intervertebral neural foramina. L2-3: Endplate spondylosis. Decreased disc height and small circumferential disc bulge. Degenerative changes of the bilateral facet joints. Mild narrowing of the central canal and bilateral intervertebral neural foramina. L3-4: Endplate spondylosis. Decreased disc height and small circumferential disc bulge. Degenerative changes of the bilateral facet joints. Mild narrowing of the central canal and bilateral intervertebral neural foramina. L4-5: Endplate spondylosis. Decreased disc height and small circumferential disc bulge. Degenerative changes of the bilateral facet joints. Mild narrowing of the central canal and bilateral intervertebral neural foramina. L5-S1: Endplate spondylosis. Decreased disc height and small circumferential disc bulge. Degenerative changes of the bilateral facet joints. No significant stenosis of the central canal. Moderate bilateral intervertebral neural foramina. There is bilateral laminectomy at L5. There is enhancement of the epidural space after contrast menstruation at L5-S1 consistent with postsurgical scarring. Normal visualized sacral ala. Normal visualized paraspinous soft tissue structures. MRI/Spine Lumbar W/WO Contrast IMPRESSION: Multilevel degenerative changes, as described above. Electronically Signed: Juvenal Darden MD at 23:36 EDT Tel , Service support , CC: Antolin Marcos; Bisi Martinez DO Hook Puller: Signed Biis Martinez Start: 12-28-2016 End: 12-28-2016 Documentation of current medications Kalie Burleson Work Phone: Start: 12-28-2016 End: 12-28-2016 DJN Anthony Quigley FILM PROJECTOR OPERATOR Work Phone: Start: 12-28-2016 End: 12-28-2016 Follow Up Appt 6 months Anthony Quigley FILM PROJECTOR OPERATOR Work Phone: Start: 10-19-2016 End: 06-30-2017 Hepatic function 2000 panel - Serum or Plasma Caryn Cabrera PA-C Work Phone: Start: 10-19-2016 End: 06-30-2017 Lipid 1996 panel - Serum or Plasma Caryn Cabrera PA-C Work Phone: Start: 10-15-2016 End: 10-15-2016 Spine Lumbar (Routine) Comments: See Note; NOTES: [facility] Imaging Services [address] [place] [address] Verda 4d Spine Lumbar (Routine) MR#: [id number] Acct: [id number] Name: MERRICK HODGES Rep #: [id number] : 1945 M 70 From: Susie Castle MD PCP: Bisi Martinez DO Status: REG CLI Study: Spine Lumbar (Routine) Date of Exam: 10/15/16 Exam# [id number] Ordering Dr: Bisi Martinez DO STUDY: MRI LUMBAR SPINE WITHOUT CONTRAST REASON FOR EXAM: Male, 70 years old. Low back pain. TECHNIQUE: Standardized fat and water weighted pulse sequences were obtained in the sagittal and axial planes. COMPARISON: MRI of the lumbar spine dated November 16, 2011. FINDINGS: T12-L1: Normal endplates. Normal disc height, signal and morphology. Normal bilateral facet joints. Normal [...] bulge and osteophyte complex. There is mild degenerative arthropathy of facet joints. There is mild central acquired canal stenosis. Neural foramina are mildly narrowed without evidence for nerve impingement. L2-3: There is moderate annular disc bulge and broad central disc protrusion. There is mild central acquired canal stenosis. There is moderate degenerative arthropathy of facet joints. The neural foramina are bilaterally narrowed without evidence for nerve impingement. L3-4: There is a mild disc bulge and osteophyte complex. There is moderate degenerative arthropathy of facet joints. The neural foramina are bilaterally narrowed without evidence for nerve impingement. There is no significant central acquired canal stenosis. L4-5: There is a mild annular disc bulge and osteophyte complex. There is moderate degenerative arthropathy of facet joints. The neural foramina are moderately narrowed without evidence for nerve impingement. There is no central acquired canal stenosis. L5-S1: There is severe narrowing of this disc with subtle irregularity of the endplates. There is an annular disc bulge. Neural foramina are severely narrowed with apparent impingement of bilateral L5 nerve roots at the neural foramina. Normal visualized sacral ala. Imaged paraspinal soft tissues are within normal limits. 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 Electronically Signed: Susie Castle MD at 15:24 EDT , Service support , CC: Bisi Martinez DO Hook Puller: Signed Bisi Martinez Work Phone: Start: 05-13-2016 End: 05-13-2016 Vascular Test/LEAS/UEAS Comments: See Note; NOTES: [facility] Cardiovascular Services [address] [place] [address] Verdana 4d Lower Ext Art Exam w/o Exercis MR#: [id number] Acct: [id number] Name: MERRICK HODGES Rep #: [id number] : 1945 70 From: Nando Chávez MD Primary Care: Bisi Martinez DO Status: REG CLI Ordering Dr: Sung Baugh MD Sex: M C DATE OF SERVICE: 04/17/2016 ORDERING PHYSICIAN: Sung Baugh M.D. INTERPRETING PHYSICIAN: Nando Chávez M.D. DIAGNOSIS: Followup for peripheral arterial disease, history of fem-fem bypass graft. INTERPRETATION: Right lower extremity PVRs, fairly normal pulsatile waveform from the thigh down to the calf, ankle and digits of note ____ appeared to be slightly peak waveforms noted throughout. Duplex at the ankle shows triphasic flow both vessels with an CLARISSA of 1.02 of the posterior tibial, 1.00 of the dorsalis pedis. Digital-brachial index mildly decreased at 0.48. Left lower extremity PVRs, again fairly normal waveform noted from the thigh with some peak waveforms into [...] at the calf. IMPRESSION: 1. Right lower extremity, no evidence of significant arterial occlusive disease with triphasic flow and ankle-brachial index of 1.02. 2. Left lower extremity with mild arterial occlusive disease with possibly some decreased inflow noted with a thigh pressure of 0.9, but maintained down with an ankle-brachial index of 0.86. Further evaluation is clinically warranted. 3. Evidence of small vessel disease with digital-brachial index of 0.48 on the right, 0.52 on the left. Nando Chávez M.D. T: NTS JOB: [id number] 05/13/16 1129 <Electronically signed by Nando Chávez MD> Date Nando Chávez MD CC: SUNG BAUGH MD; Bisi Coffmanon DO Date Dictated: 05/06/16 1037 Date Transcribed: 05/06/16 1037 Hook Puller: Signed Bisi Martinez Start: 04-27-2016 End: 04-27-2016 Documentation of current medications Twyla Tovar RN Start: 04-27-2016 End: 04-27-2016 MAYNOR Palencia MD Work Phone: Start: 04-27-2016 End: 04-27-2016 Follow Up Appt 6 months Mau Palencia MD Work Phone: Start: 04-22-2016 End: 04-22-2016 Carotid Duplex Ultrasound Comments: See Note; NOTES: [facility] Cardiovascular Services [address] [place] [address] Carotid Duplex Ultrasound 04/17/16 0934 MR#: [id number] Acct: [id number] Name: MERRICK HODGES Rep #: [id number] : 1945 70 From: Nando Chávez MD Attending Dr: SUNG BAUGH MD Status: REG CLI Ordering Dr: Sung Baugh MD Date: 04/17/16 Location: [facility] Sex: M C Admitted: Reason For Study: Carotid stenosis Rt. Velocities/BP Lt. Velocities/BP Prox CCA 105.0/17.6 cm/sec. Prox CCA 132.0/18.9 cm/sec. Mid CCA 104.0/11.1 cm/sec. Mid CCA 107.0/22.3 cm/sec. Dist CCA 86.2/16.4 cm/sec. Dist CCA 91.5/18.2 cm/sec. Prox ICA 91.5/17.6 cm/sec. Prox ICA 130.0/30.6 cm/sec. Mid ICA 96.7/18.8 cm/sec. Mid ICA 131.0/31.4 cm/sec. Dist ICA 70.4/16.4 cm/sec. Dist ICA 84.4/22.9 cm/sec. Rt. ICA/CCA = .93. Lt. ICA/CCA = 1.2. Prox ECA 249.0/30.1 cm/sec. Prox ECA 173.0/23.6 cm/sec. Rt. Vert. 83.8/18.2 cm/sec. Lt. Vert. 32.4/6.6 cm/sec. Right Extracranial There is intimal thickening but no [...] irregular atherosclerotic plaque noted in the left external carotid artery. Antegrade flow is noted in the left vertebral artery. Procedure Carotid Duplex 91145. Exam performed in department. Interpretation Summary Mild (<50%) stenosis right extracranial internal carotid. Mild (<50%) stenosis left extracranial internal carotid. Flow within the vertebral arteries is antegrade bilaterally. Ordering Physician: SUNG BAUGH Performed By: Lisa Markham RVT 04/22/162102 Date Nando Chávez MD CC: SUNG BAUGH MD; Bisi Martinez DO Date Dictated: 04/17/1634 Date Transcribed: 04/22/162102 Hook Puller: Signed Bisi Martinez Start: 01-20-2016 End: 01-20-[address] Lung Screening Comments: See Note; NOTES: [facility] Imaging Services [address] [place] [address] Lung Screening MR#: [id number] Acct: [id number] Name: MERRICK HODGES Rep #: [id number] : 1945 M 70 From: Juvenal Darden MD PCP: Bisi Martinez DO Status: REG CLI Study: Low Dose CT Lung Screening Date of Exam: 01/20/16 Exam# [id number] Ordering Dr: Bisi Martinez DO STUDY: CT CHEST WITHOUT CONTRAST- LOW [...] reformatted images performed. Sagittal and coronal MIP images provided. The measurements provided are average, rounded measurements per ACR guidelines. COMPARISON: None. FINDINGS: Subpleural irregular opacities are seen in the right and left lung apices most [...] mild dextroscoliosis and degenerative changes of the thoracic spine. Electronically Signed: Juvenal Darden MD at 10:26 EDT Tel , Service support [phone], CC: Bisi Martinez DO Hook Puller: Signed Bisi Martinez Work Phone: Start: 12-31-2015 End: 04-21-2016 Hepatic function 2000 panel - Serum or Plasma Caryn Cabrera PA-C Work Phone: Start: 12-31-2015 End: 04-21-2016 Lipid 1996 panel - Serum or Plasma Caryn Cabrera PA-C Work Phone: Start: 06-25-2015 End: 07-02-2015 Hepatic function 2000 panel - Serum or Plasma Caryn Cabrera PA-C Work Phone: Start: 06-25-2015 End: 07-02-2015 Lipid 1996 panel - Serum or Plasma Caryn Cabrera PA-C Work Phone: Start: 05-13-2015 End: 05-13-2015 MAYNOR Palencia MD Work Phone: Start: 05-13-2015 End: 05-13-2015 Follow Up Appt 1 year Mau Palencia MD Work Phone: Start: 04-30-2015 End: 05-01-2015 CTA Abd w/Runoff W/WO Contrast Comments: See Note; NOTES: [facility] Imaging Services [address] [place] [address] Verdana 4d CTA Abd w/Runoff W/WO Contrast MR#: [id number] Acct: [id number] Name: MERRICK HODGES Rep #: [id number] : 1945 M 69 From: Vlad Zarco DO PCP: Bisi Martinez DO Status: REG CLI Study: CTA Abd w/Runoff W/WO Contrast Date of Exam: 04/30/15 Exam# [id number] Ordering Dr: Sung Baugh MD STUDY: CTA OF THE ABDOMINAL AORTA AND BILATERAL LOWER EXTREMITIES REASON FOR EXAM: Male, 69 years old. Left leg pain. Peripheral vascular disease. Femoral bypass graft, 1998. RADIATION DOSAGE (If Supplied By Facility): CTDIvol = ( 6.37 ) mGy, DLP = ( 1124.95 ) mGycm TECHNIQUE: Axial CT angiography multi-detector data acquisition was obtained from the diaphragm to the feet following intravenous administration of 100 ml of Isovue 370 contrast. Axial images and MIP images were reconstructed from the axial data set. Post-processing of the angiographic images was performed, with multiplanar reformation and 3D reconstruction. TECHNICAL QUALITY: Good COMPARISON: None. Descriptors of Narrowing: None (0%) Mild (< 50%) Moderate (50-70%) Severe (70-90%) Subtotal/Total Occlusion (90-100%) Non-Evaluable (technically non-diagnostic FINDINGS: Abdominal aorta: There is mild atherosclerotic changes of the abdominal aorta without aneurysm, dissection or stenosis. Celiac and superior mesenteric arteries: Mild atherosclerotic changes about the origin of the celiac and superior mesenteric arteries without significant stenosis. Inferior mesenteric artery: No demonstrated narrowing. Right renal artery(arteries): Atherosclerotic changes at the origin of the right renal artery with mild to moderate stenosis. Left renal artery(arteries): No demonstrated narrowing. Right [...] femoral: Minimal atherosclerotic changes distally with mild narrowing and Right popliteal artery: Scattered atherosclerotic changes without stenosis. Right tibioperoneal trunk: No demonstrated narrowing. Right anterior tibial artery: No demonstrated narrowing. Right posterior tibial artery: No demonstrated narrowing. Right peroneal artery: No demonstrated narrowing. LEFT LOWER EXTREMITY Left common femoral artery: Reconstituted via the fem-fem bypass. Left profundus femoris: No demonstrated narrowing. Left superficial femoral: Minimal atherosclerotic changes distally without stenosis. Left popliteal artery: No demonstrated narrowing. Left tibioperoneal trunk: Minimal atherosclerotic changes without stenosis. Left anterior tibial artery: No demonstrated narrowing. Left posterior tibial artery: No demonstrated narrowing. Left peroneal artery: No demonstrated narrowing. The lung bases bases are clear. The heart appears normal in size. Normal liver normal gallbladder and extrahepatic biliary system. Normal spleen. Normal pancreas. Normal adrenal glands. Normal right kidney. There are multiple renal cysts without other evidence of left kidney abnormality normal IVC. Normal retroperitoneum. Normal stomach. Normal small bowel. Normal colon. Normal appendix. Normal bladder. The prostate is markedly enlarged. Prominent seminal vesicles. There is no pelvic lymphadenopathy or mass. No free air or free fluid is seen within the abdominal cavity. Normal abdominal wall. There are degenerative changes of the lumbar spine. No lytic or blastic lesions are noted. IMPRESSION: 1. Minimal atherosclerotic changes of the abdominal aorta and intra-abdominal arteries. 2. 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 3. Fem-fem bypass graft. 4. No significant lower extremity arterial stenosis. 5. Enlarged prostate. 6. Left renal cyst. Electronically Signed: Vlad Zarco DO at 17:07 EST Tel [phone], Service support [phone], CC: SUNG BAUGH MD; Bisi Martinez DO Hook Puller: Signed Bisi Martinez Start: 02-13-2015 End: 02-13-2015 Vascular Test/LEAS/UEAS Comments: See Note; NOTES: [facility] Cardiovascular Services [address] [place] [address] Lower Ext Art Exam w/ Exercise 02/06/15 1024 MR#: [id number] Acct: [id number] Name: MERRICK HODGES Rep #: [id number] : 1945 69 From: Nando Chávez MD Attending Dr: Bisi Martinez DO Status: REG CLI Ordering Dr: Bisi Martinez DO Date: 02/04/15 Location: [facility] Sex: M C Admitted: DATE OF SERVICE: 02/04/2015 ORDERING PHYSICIAN: Dr. Martinez. INTERPRETING PHYSICIAN: Dr. Chávez. REASON FOR CONSULTATION: [...] digits. There was triphasic flow noted at the ankle, the posterior tibial and dorsalis pedis, [...] noted from the thigh down through the calf, ankle, and digits; slightly again peaked waveforms at the calf noted. Segmental pressures no significant change noted throughout the thigh calf. The Duplex showed triphasic flow at the ankle, the posterior tibial and dorsalis pedis, [...] 0.98 at 5 minutes. IMPRESSION: 1. Right lower extremity with no evidence of significant arterial occlusive disease with an CLARISSA of 1.08 and triphasic flow noted at the ankle. 2. Left lower extremity, minimal occlusive disease noted with a resting CLARISSA of 0.91, minimal decrease down to 0.82 with exercise. Triphasic flow noted at the ankle with an CLARISSA of 0.91. Further evaluation as clinically warranted. Nando Chávez M.D. T: NTS JOB: [id number] 02/13/15 1034 <Electronically signed by Nando Chávez MD> Date Nando Chávez MD CC: Bisi Martinez DO Date Dictated: 02/06/15 1024 Date Transcribed: 02/06/15 1024 Hook Puller: Signed Bisi Martinez Work Phone: Start: 02-06-2015 End: 02-06-2015 Carotid Duplex Ultrasound Comments: See Note; NOTES: [facility] Cardiovascular Services [address] [place] [address] Carotid Duplex Ultrasound 02/04/15 1010 MR#: [id number] Acct: [id number] Name: MERRICK HODGES Rep #: [id number] : 1945 69 From: Nando Chávez MD Attending Dr: Bisi Martinez DO Status: REG CLI Ordering Dr: Bisi Martinez DO Date: 02/04/15 Location: [facility] Sex: M C Admitted: Rt. Velocities/BP Lt. [...] Extracranial There is no significant atherosclerotic plaque noted in the right common carotid artery. There is intimal thickening but no significant atherosclerotic plaque noted in the right internal carotid artery. There is heterogeneous, irregular atherosclerotic plaque noted in the right external carotid artery. Antegrade flow is noted in the right vertebral artery. Left Extracranial There is intimal thickening but no significant atherosclerotic plaque noted in the left common carotid artery. There is heterogeneous, irregular atherosclerotic plaque noted in the left internal carotid artery. There is heterogeneous, irregular atherosclerotic plaque noted in the left external carotid artery. Antegrade flow is noted in the left vertebral artery. Procedure Carotid Duplex [id number]. Exam performed in department. Interpretation Summary Mild (<50%) stenosis right extracranial internal carotid. Mild (<50%) stenosis left extracranial internal carotid. Flow within the vertebral arteries is antegrade bilaterally. Ordering Physician: Bisi Martinez Performed By: Lisa Markham RVT 02/06/15 0902 Date Nando Chávez MD CC: Bisi Martinze DO Date Dictated: 02/04/15 1010 Date Transcribed: 02/06/15901 Hook Puller: Signed Bisi Martinez Work Phone: Start: 01-28-2015 End: 01-28-2015 Foot min 3 Views Comments: See Note; NOTES: [facility] Imaging Services [address] [place] [address] Radiology Report MR#: [id number] Acct: [id number] Name: MERRICK HODGES Renee Rep #: [id number] : 1945 M 69 From: Benji Camacho MD PCP: Bisi Martinez DO Status: REG CLI Study: Foot min 3 Views Date of Exam: 01/28/15 Exam# [id number] Ordering Dr: Bisi Martinez DO STUDY: X-RAY - LEFT FOOT CLINICAL: Male, 69 years old. LEFT HEEL PAIN WITHOUT INJURY TECHNIQUE: 3 view(s) of the foot. COMPARISON: None. FINDINGS: There is a plantar calcaneal spur. Normal visualized subtalar, talonavicular, calcaneocuboid, tarsal and tarsometatarsal articulations. Normal metatarsi. Normal metatarsophalangeal joint of the great toe. Normal tibial and fibular sesamoid bones. Normal interphalangeal joint of the great toe. Normal phalanges of the great toe. Normal second through fifth metatarsophalangeal joints. Normal interphalangeal joints and phalanges of the lesser toes. The soft tissue structures are unremarkable. IMPRESSION: There is a calcaneal spur. Electronically Signed: Benji Camacho MD at 17:10 EDT , Service support [phone], RAD/Foot min 3 Views IMPRESSION: There is a calcaneal spur. Electronically Signed: Benji Camacho MD at 17:10 EDT , Service support [phone], CC: Bisi Martinez DO Hook Puller: Signed Bisi Martinez Work Phone: Start: 10-17-2014 End: 12-21-2014 Hepatic function 2000 panel - Serum or Plasma Mau Palencia MD Work Phone: Start: 10-17-2014 End: 12-21-2014 Lipid 1996 panel - Serum or Plasma Mau Palencia MD Work Phone: Start: 05-01-2014 End: 05-01-2014 MAYNOR Palencia MD Work Phone: Start: 05-01-2014 End: 05-01-2014 Follow Up Appt 1 year Mau Palencia MD Work Phone: Start: 04-17-2014 End: 04-17-2014 Hepatic function 2000 panel - Serum or Plasma Mau Palencia MD Work Phone: Start: 04-17-2014 End: 04-17-2014 Lipid 1996 panel - Serum or Plasma Mau Palencia MD Work Phone: Start: 11-12-2013 End: 12-05-2013 Hepatic function 2000 panel - Serum or Plasma Caryn Cabrera PA-Anne-Marie Work Phone: Start: 11-12-2013 End: 12-05-2013 Lipid 1996 panel - Serum or Plasma Caryn Cabrera PA-C Work Phone: Start: 05-14-2013 End: 06-01-2013 Hepatic function 2000 panel - Serum or Plasma Caryn Cabrera PA-C Work Phone: Start: 05-14-2013 End: 06-01-2013 Lipid 1996 panel - Serum or Plasma Caryn Cabrera PA-C Work Phone: Start: 05-04-2013 End: 05-01-2014 Complete sleep workup (PSG,CPAP as indicated) & Follow up Mau Palencia MD Work Phone: Start: 05-04-2013 End: 05-04-2013 MAYNOR Palencia MD Work Phone: Start: 05-04-2013 End: 05-04-2013 Follow Up Appt 1 year Mau Palencia MD Work Phone: Start: 05-04-2013 End: 05-01-2014 Stress Echocardiogram (treadmill) Mau Palencia MD Work Phone: Start: 11-29-2012 End: 11-29-2012 Hepatic function 2000 panel - Serum or Plasma Tayo Isbell MD Start: 11-29-2012 End: 11-29-2012 Lipid 1996 panel - Serum or Plasma Tayo Isbell MD Start: 06-02-2012 End: 06-02-2012 Ecg routine ecg w/least 12 lds w/i&r Tayo Isbell MD Start: 06-02-2012 End: 06-02-2012 Follow Up Appt 1 year Tayo Isbell MD Start: 05-18-2012 End: 06-02-2012 Hepatic function 2000 panel - Serum or Plasma Tayo Isbell MD Start: 05-18-2012 End: 06-02-2012 Lipid 1996 panel - Serum or Plasma Tayo Isbell MD Start: 12-07-2011 End: 12-07-2011 Follow Up Appt 6 months Tayo Isbell MD Start: 11-18-2011 End: 11-30-2011 Hepatic function 2000 panel - Serum or Plasma Tayo Isbell MD Start: 11-18-2011 End: 11-30-2011 Lipid 1996 panel - Serum or Plasma Tayo Isbell MD Start: 05-21-2011 End: 05-21-2011 Lipid 1996 panel Tayo Isbell MD Start: 01-20-2011 Placement of stent in coronary artery Status post cardiac stent placement Twyla Tovar RN Start: 06-14-2002 Placement of stent in cardiac conduit ROBBY BOSWELL DO Start: 06-14-1998 Byp otoctavio/alycia vein femoral-femoral ROBBY BOSWELL DO Comment on above: Left Back sx Pauline Beltran Comment on above: Back sx Franchesca Miranda Comment on above: Back sx Kaitlynn Oh Comment on above: Back sx Pauline Gravius Comment on above: Back sx Pauline Gravius Comment on above: Back sx Kaitlynn Cross Comment on above: Back sx Pauline Gravius Comment on above: Back sx Kaitlynn Cross LP N Comment on above: Back sx Prema Mil[employer] Comment on above: Back sx Prema Milana [employer] Comment on above: Back sx Pauline Gravius [employer] T[employer] INSERTER Comment on above: Back sx Pauline Gravius [employer]LAST[employer] TAPE INSERTER Comment on above: Back sx Pauline Gravius ELAST[employer] TAPE INSERTER Comment on above: History of operative procedure on lumbar spinal structure ROBBY BOSWELL DO Comment on above: x3 Neurostimulation of spinal cord tissue ROBBY BOSWELL DO Comment on above: trial Urine culture Dr. Bisi Martinez Work Phone: Urine culture Dr. Bisi Martinez Work Phone: Pauline Gravius ELASTIC TAPE INSERTER Gilda Simmons ELASTIC TAPE INSERTER Plan of Treatment Date Care Activity Detail Author Start: 05-14-2025 ambulatory Ambulatory Facility:[facility] Start: 05-13-2025 BP Controlled (<130/80) BP Controlle d (<130/80) [facility] Start: 01-24-2025 X-ray of lumbosacral spine L/S Spine Min 4 Views [facility] Start: 01-24-2025 XR Spine Lumbar and Sacrum GE 4 Views [facility] Start: 10-30-2024 Cardiovascular stres s test using pharmacologic stress agent Nuclear Stress Test - Chemical [facility] Start: 10-30-2024 NM Heart Views W str ess and W radionuclide IV [facility] Start: 10-02-2024 Anes dx/ther nerve block/injection prone pos ANESTH N BLOCK/INJ PRONE [facility] Start: 10-02-2024 Njx dx/ther sbst intrlmnr lmbr/sac w/img gdn NJX INTERLAMINAR LMBR/SAC [facility] Start: 10-02-2024 Injection of spinal epidural space [facility] Start: 10-02-2024 Injection using fluoroscopic guidance [facility] Start: 10-02-2024 Patient discharge [facility] Start: 07-11-2024 Following clinical pathway protocol [facility] Start: 02-13-2024 Covid-19 Vaccine ( season) Covid-19 Vaccine () [facility] Start: 10-14-2023 Pneumococcal Vaccine : Age 65+ (2 - PCV) Pneumococcal Vaccine: Age 65+ (2 - PCV) [facility] Start: 08-26-2023 Egd transoral biopsy single/multiple EGD BIOPSY SINGLE/MULTIPLE [facility] Start: 08-26-2023 Patient discharge [facility] Start: 07-14-2023 Patient referral [facility] Work Phone: Start: 06-14-2023 Advance Directive Discussion Advance Directive Discussion [facility] Start: 05-10-2023 Patient referral [facility] Work Phone: Start: 03-22-2023 Urine microalbumin profile DTaP,Tdap,Td Vaccine (3 - Td or Tdap) [facility] Start: 02-12-2023 COVID-19 Vaccine ( season) COVID-19 Vaccine () [facility] Start: 11-17-2022 Patient referral [facility] Work Phone: Start: 09-17-2022 Procedure [facility] Work Phone: Start: 08-27-2022 Procedure Education [facility] Work Phone: Start: 08-27-2022 Provider Instruction s for Treatment [facility]; [facility] Work Phone: Start: 08-27-2022 Assay of thyroid stimulating hormone tsh [facility]; [facility] Work Phone: Start: 08-27-2022 Urnls dip stick/tabl et reagent auto microscopy [facility]; [facility] Work Phone: Start: 08-27-2022 Urine albumin quantitative [facility]; [facility] Work Phone: Start: 08-27-2022 Comprehensive metabo lic panel [facility]; [facility] Work Phone: Start: 08-27-2022 Blood count complete auto&auto difrntl wbc [facility]; [facility] Work Phone: Start: 08-27-2022 Lipid panel [facility] Work Phone: Start: 03-04-2022 Procedure [facility]; [facility] Work Phone: Start: 03-04-2022 Provider Instruction s for Treatment [facility]; [facility] Work Phone: Start: 01-15-2022 Procedure [facility] Work Phone: Start: 01-15-2022 Provider Instruction s for Treatment [facility]; [facility] Work Phone: Start: 2021 RSV Vaccine (1 - 1-d ose 75+ series) RSV Vaccine (1 - 1-dose 75+ series) [facility] Start: 10-31-2021 Procedure [facility] Work Phone: Start: 10-31-2021 Provider Instruction s for Treatment [facility]; [facility] Work Phone: Start: 10-31-2021 Assay of prostate specific antigen total PSA (PROSTATE SPECIFIC ANTIGEN) (V76.44) [facility]; [facility] Work Phone: Start: 10-31-2021 Assay of thyroid stimulating hormone tsh TSH (17671) [facility]; [facility] Work Phone: Start: 10-31-2021 Urnls dip stick/tabl et reagent auto microscopy URINALYSIS, W/ MICRO (39287) [facility]; [facility] Work Phone: Start: 10-31-2021 Urine albumin quantitative MICROALBUMIN: CREATININE RATIO (54461) AND (10198) [facility]; [facility] Work Phone: Start: 10-31-2021 Comprehensive metabo lic panel METABOLIC PANEL, COMPREHENSIVE (42984) [facility]; [facility] Work Phone: Start: 10-31-2021 Lipid panel LIPID PANEL (64437) [facility] Work Phone: Start: 10-31-2021 Blood count complete auto&auto difrntl wbc CBC W/AUTO DIFF WBC (14076) [facility]; [facility] Work Phone: Start: 07-24-2021 Procedure [facility] Work Phone: Start: 07-24-2021 Provider Instruction s for Treatment [facility]; [facility] Work Phone: Start: 07-02-2021 Provider Instruction s for Treatment [facility]; [facility] Work Phone: Start: 03-06-2021 Procedure [facility]; [facility] Work Phone: Start: 03-06-2021 Provider Instruction s for Treatment [facility]; [facility] Work Phone: Start: 02-24-2021 Assay of thyroid stimulating hormone tsh TSH (THYROID STIMULATING HORMONE) (97879) [facility]; [facility] Work Phone: Start: 02-24-2021 Blood count manual c ell count each CBC WITH MANUAL DIFF (97747) [facility]; [facility] Work Phone: Start: 02-24-2021 Comprehensive metabo lic panel METABOLIC PANEL, COMPREHENSIVE (02842) [facility]; [facility] Work Phone: Start: 01-09-2021 Procedure Education [facility]; [facility] Work Phone: Start: 01-09-2021 Provider Instruction s for Treatment [facility]; [facility] Work Phone: Start: 10-31-2020 Procedure [facility]; [facility] Work Phone: Start: 10-31-2020 Provider Instruction s for Treatment [facility]; [facility] Work Phone: Start: 08-15-2020 Procedure [facility]; [facility] Work Phone: Start: 08-15-2020 Provider Instruction s for Treatment [facility]; [facility] Work Phone: Start: 08-15-2020 Comprehensive metabo lic panel METABOLIC PANEL, COMPREHENSIVE (41156) [facility]; [facility] Work Phone: Start: 08-15-2020 Lipoprotein blood qu an numbers & subclasses NMR Profile (51866) [facility]; [facility] Work Phone: Start: 07-25-2020 Procedure [facility]; [facility] Work Phone: Start: 07-25-2020 Provider Instruction s for Treatment [facility]; [facility] Work Phone: Start: 04-08-2020 Procedure Education [facility] Work Phone: Start: 03-28-2020 Procedure Education [facility] Work Phone: Start: 03-28-2020 Provider Instruction s for Treatment [facility] Work Phone: Start: 03-22-2020 Procedure Education [facility] Work Phone: Start: 03-22-2020 Provider Instruction s for Treatment [facility] Work Phone: Start: 03-22-2020 Urine albumin quantitative MICROALBUMIN: CREATININE RATIO (80019) AND (58636) [facility] Work Phone: Start: 03-22-2020 TSH Qn TSH (12338) [facility] Work Phone: Start: 03-22-2020 Comprehensive metabo lic panel METABOLIC PANEL, COMPREHENSIVE (07697) [facility] Work Phone: Start: 03-22-2020 Blood count complete auto&auto difrntl wbc CBC W/AUTO DIFF WBC (30732) [facility] Work Phone: Start: 03-22-2020 Lipoprotein blood qu an numbers & subclasses NMR Profile (62228) [facility] Work Phone: Start: 11-23-2019 Provider Instruction s for Treatment [facility] Work Phone: Start: 11-23-2019 Oncology colorectal screening tash 10 dna markrs [facility] Work Phone: Start: 05-26-2018 Procedure Education [facility] Work Phone: Start: 05-26-2018 Provider Instruction s for Treatment [facility] Work Phone: Start: 09-01-2017 Provider Instruction s for Treatment [facility] Work Phone: Start: 07-06-2017 End: 07-06-2017 Patient encounter procedure Appointment [facility] Work Phone: Start: 06-30-2017 End: 12-28-2016 Hepatic function 2000 panel - Serum or Plasma *Hepatic Function Panel [facility] Work Phone: Start: 06-30-2017 End: 12-28-2016 Lipid 1996 panel - Serum or Plasma *Lipid Profile CC PCP [facility] Work Phone: Start: 05-13-2017 Provider Instruction s for Treatment [facility] Work Phone: Start: 03-25-2017 Provider Instruction s for Treatment [facility] Work Phone: Start: 03-25-2017 Blood occult fecal h gb deter ia qual feces 1-3 [facility] Work Phone: Start: 03-18-2017 Provider Instruction s for Treatment [facility] Work Phone: Start: 12-28-2016 End: 12-28-2016 Patient encounter procedure Appointment [facility] Work Phone: Start: 12-28-2016 End: 12-28-2016 MAYNOR MCGUIRE [facility] Work Phone: Start: 12-28-2016 End: 12-28-2016 Follow Up Appt 6 months Follow Up Appt 6 months [facility] Work Phone: Start: 12-07-2016 End: 12-07-2016 Patient encounter procedure Appointment [facility] Work Phone: Start: 11-24-2016 Procedure Education [facility] Work Phone: Start: 11-24-2016 Provider Instruction s for Treatment [facility] Work Phone: Start: 10-19-2016 End: 06-30-2017 Hepatic function 2000 panel - Serum or Plasma *Hepatic Function Panel [facility] Work Phone: Start: 10-19-2016 End: 06-30-2017 Lipid 1996 panel - Serum or Plasma *Lipid Profile CC PCP [facility] Work Phone: Start: 10-07-2016 Provider Instruction s for Treatment [facility] Work Phone: Start: 04-27-2016 End: 04-27-2016 MAYNOR MCGUIRE [facility] Work Phone: Start: 04-27-2016 End: 04-27-2016 Follow Up Appt 6 months Follow Up Appt 6 months [facility] Work Phone: Start: 02-07-2016 Provider Instruction s for Treatment [facility] Work Phone: Start: 02-07-2016 Blood occult fecal h gb deter ia qual feces 1-3 [facility] Work Phone: Start: 01-15-2016 Provider Instruction s for Treatment [facility] Work Phone: Start: 12-31-2015 End: 04-21-2016 Hepatic function 2000 panel - Serum or Plasma *Hepatic Function Panel [facility] Work Phone: Start: 12-31-2015 End: 04-21-2016 Lipid 1996 panel - Serum or Plasma *Lipid Profile CC PCP [facility] Work Phone: Start: 12-30-2015 Patient Education [facility] Work Phone: Start: 12-30-2015 Procedure Education [facility] Work Phone: Start: 06-25-2015 End: 07-02-2015 Hepatic function 2000 panel - Serum or Plasma *Hepatic Function Panel [facility] Work Phone: Start: 06-25-2015 End: 07-02-2015 Lipid 1996 panel - Serum or Plasma *Lipid Profile CC PCP [facility] Work Phone: Start: 05-13-2015 End: 05-13-2015 DJN DJN [facility] Work Phone: Start: 05-13-2015 End: 05-13-2015 Follow Up Appt 1 year Follow Up Appt 1 year [facility] Work Phone: Start: 02-14-2015 Procedure Education [facility] Work Phone: Start: 02-14-2015 Provider Instruction s for Treatment [facility] Work Phone: Start: 01-28-2015 Provider Instruction s for Treatment [facility] Work Phone: Start: 10-17-2014 End: 12-21-2014 Hepatic function 2000 panel - Serum or Plasma *Hepatic Function Panel [facility] Work Phone: Start: 10-17-2014 End: 12-21-2014 Lipid 1996 panel - Serum or Plasma *Lipid Profile CC PCP [facility] Work Phone: Start: 10-12-2014 Procedure Education [facility] Work Phone: Start: 05-01-2014 End: 05-01-2014 DJN DJN [facility] Work Phone: Start: 05-01-2014 End: 05-01-2014 Follow Up Appt 1 year Follow Up Appt 1 year [facility] Work Phone: Start: 04-17-2014 End: 04-17-2014 Hepatic function 2000 panel - Serum or Plasma *Hepatic Function Panel [facility] Work Phone: Start: 04-17-2014 End: 04-17-2014 Lipid 1996 panel - Serum or Plasma *Lipid Profile CC PCP [facility] Work Phone: Start: 11-12-2013 End: 12-05-2013 Hepatic function 2000 panel - Serum or Plasma *Hepatic Function Panel [facility] Work Phone: Start: 11-12-2013 End: 12-05-2013 Lipid 1996 panel - Serum or Plasma *Lipid Profile CC PCP [facility] Work Phone: Start: 05-14-2013 End: 06-01-2013 Hepatic function 2000 panel - Serum or Plasma *Hepatic Function Panel [employer] Phone: Start: 05-14-2013 End: 06-01-2013 Lipid 1996 panel - Serum or Plasma *Lipid Profile CC PCP [facility] Work Phone: Start: 05-04-2013 End: 05-04-2013 Complete sleep workup (PSG,CPAP as indicated) & Follow up Complete sleep workup (PSG,CPAP as indicated) & Follow up [facility] Work Phone: Start: 05-04-2013 End: 05-04-2013 DJN DJN [facility] Work Phone: Start: 05-04-2013 End: 05-04-2013 Follow Up Appt 1 year Follow Up Appt 1 year [facility] Work Phone: Start: 05-04-2013 End: 05-04-2013 Stress Echocardiogram (treadmill) Stress Echocardiogram (treadmill) [facility] Work Phone: Start: 11-30-2012 End: 11-29-2012 Hepatic function 2000 panel - Serum or Plasma *Hepatic Function Panel [employer] Phone: Start: 11-30-2012 End: 11-29-2012 Lipid 1996 panel - Serum or Plasma *Lipid Profile [employer] Phone: Start: 06-02-2012 End: 06-02-2012 Ecg routine ecg w/least 12 lds w/i&r EKG (In office) [facility] Work Phone: Start: 06-02-2012 End: 06-02-2012 Follow Up Appt 1 year Follow Up Appt 1 year [facility] Work Phone: Start: 05-23-2012 Provider Instruction s for Treatment [facility] Work Phone: Start: 05-23-2012 Blood occult fecal h gb deter ia qual feces 1-3 [facility] Work Phone: Start: 05-23-2012 Assay of prostate specific antigen total [facility] Work Phone: Start: 05-23-2012 Protein mass conc PSA (PROSTAT E SPECIFIC ANTIGEN) (V76.44) [facility] Work Phone: Start: 05-18-2012 End: 06-02-2012 Hepatic function 2000 panel - Serum or Plasma *Hepatic Function Panel [facility] Work Phone: Start: 05-18-2012 End: 06-02-2012 Lipid 1996 panel - Serum or Plasma *Lipid Profile [facility] Work Phone: Start: 12-07-2011 End: 12-07-2011 Follow Up Appt 6 months Follow Up Appt 6 months [facility] Work Phone: Start: 11-23-2011 Provider Instruction s for Treatment [facility] Work Phone: Start: 11-18-2011 End: 11-30-2011 Hepatic function 2000 panel - Serum or Plasma *Hepatic Function Panel [facility] Work Phone: Start: 11-18-2011 End: 11-30-2011 Lipid 1996 panel - Serum or Plasma *Lipid Profile [facility] Work Phone: Start: 11-10-2011 Provider Instruction s for Treatment [facility] Work Phone: Start: 11-07-2011 Fall risk assessment Falls Risk [facility] Start: 10-30-2011 Provider Instruction s for Treatment [facility] Work Phone: Start: 10-26-2011 Provider Instruction s for Treatment [facility] Work Phone: Start: 05-21-2011 End: 05-21-2011 Follow Up Appt 6 months Follow Up Appt 6 months [facility] Work Phone: Start: 10-22-2008 Provider Instruction s for Treatment [facility] Work Phone: Start: 06-04-2008 Provider Instruction s for Treatment [facility] Work Phone: Start: 05-16-2008 Provider Instruction s for Treatment [facility] Work Phone: Start: 05-16-2008 Assay of thyroid stimulating hormone tsh [facility]; [facility] Work Phone: Start: 05-16-2008 Thyrotropin Qn TSH (93634) [facility] Work Phone: Start: 05-16-2008 Urnls dip stick/tabl et rgnt auto w/o microscopy [facility] Work Phone: Start: 05-16-2008 Urine albumin quantitative [facility] Work Phone: Start: 05-16-2008 Comprehensive metabo lic panel [facility] Work Phone: Start: 05-16-2008 Lipid panel [facility] Work Phone: Start: 05-16-2008 Blood count manual c ell count each [facility] Work Phone: Start: 11-14-2007 Provider Instruction s for Treatment [facility] Work Phone: Start: 11-14-2007 Antinuclear antibodi es juno [facility]; [facility] Work Phone: Start: 11-14-2007 Assay of folic acid serum [facility] Work Phone: Start: 11-14-2007 Blood count complete automated [facility] Work Phone: Start: 11-14-2007 C-reactive protein [facility]; [facility] Work Phone: Start: 11-14-2007 Cobalamin (Vitamin B 12) mass conc VITAMIN B-12 (CYANOCOBALAMIN) (60335) [facility] Work Phone: Start: 11-14-2007 CRP mass conc C-REACTIVE PRO TEIN (42674) [facility] Work Phone: Start: 11-14-2007 Cyanocobalamin vitam in b-12 [facility]; [facility] Work Phone: Start: 11-14-2007 Nuclear Ab IF titer (S) JUNO (A NTINUCLEAR ANTIBODY) (15237) [facility] Work Phone: Start: 11-14-2007 Rheumatoid factor quantitative [facility] Work Phone: Start: 11-14-2007 Sedimentation rate r bc non-automated [facility] Work Phone: Start: 11-14-2007 Assay of thyroid stimulating hormone tsh [facility]; [facility] Work Phone: Start: 11-14-2007 Thyrotropin Qn TSH (84715) [facility] Work Phone: Start: 11-14-2007 Comprehensive metabo lic panel [facility] Work Phone: Start: 11-14-2007 Urine albumin quantitative [facility] Work Phone: Start: 11-14-2007 Blood count manual c ell count each [facility] Work Phone: Start: 11-14-2007 Lipid panel [facility] Work Phone: Start: 05-16-2007 Provider Instruction s for Treatment [facility] Work Phone: Start: 04-07-2007 Provider Instruction s for Treatment [facility] Work Phone: Start: 04-07-2007 Assay of prostate specific antigen total [facility] Work Phone: Start: 04-07-2007 Protein mass conc PSA (PROSTAT E SPECIFIC ANTIGEN) (71001) [facility] Work Phone: Start: 04-07-2007 Urnls dip stick/tabl et rgnt auto w/o microscopy [facility] Work Phone: Start: 04-07-2007 Assay of thyroid stimulating hormone tsh [facility]; [facility] Work Phone: Start: 04-07-2007 Thyrotropin Qn TSH (64892) [facility] Work Phone: Start: 04-07-2007 Comprehensive metabo lic panel [facility] Work Phone: Start: 04-07-2007 Urine albumin quantitative [facility] Work Phone: Start: 04-07-2007 Lipid panel [facility] Work Phone: Start: 04-07-2007 Blood count manual c ell count each [facility] Work Phone: Start: 10-14-2006 Provider Instruction s for Treatment [facility] Work Phone: Start: 1996 Administration of herpes zoster vaccine Zoster Vaccines (1 of 2) [facility] Start: 1996 Shingrix Vaccine (1 of 2) Shingrix Vaccine (1 of 2) [facility] Start: 11-07-1991 Diabetes Screening Diabetes Screenin g [facility] Start: 1964 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 PCP 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 yashira Disease Visit Annual PCP Team Chronic Disease Visit [facility] Start: 1964 Anxiety Screening Anxiety Screening [facility] Start: 1964 Depression Screening Depression Scre ening [facility] Start: 1964 Hepatitis C screening Hepatitis C Sc reening [facility] Start: 1958 Depression screening using PHQ-9 (Patient Health Questionnaire 9) score Depression Screening (PHQ-2/9) [facility] Start: 1949 History and physical examination, annual for health maintenance Wellness Visit [facility] Start: 1946 Tetanus vaccination Tetanus: Every 1 0yrs [facility] COVID & INFLUENZA A/ B & RSV PCR, ROUTINE COVID & INFLUENZA A/B & RSV PCR, ROUTINE Microbiology Routine Acute cough Ordered: 05/13/2024 [facility] Comment on above: Ordered: 05/13/2024 MR Lumbar spine [facility] NM Heart Views W str ess and W radionuclide IV [facility] Patient referral [facility] Work Phone: End: 06-12-2025 XR Chest PA and Lateral XR CHEST 2V FRONTAL/LAT Radiology STAT Acute cough 1 Occurrences starting 05/13/2024 until 06/12/2025 [facility] Work Phone: Comment on above: 1 Occurrences starti ng 05/13/2024 until 06/12/2025 [facility] Work Phone: [facility] Work Phone: [facility] Work Phone: [facility] Work Phone: [facility] Work Phone: [facility] Work Phone: [facility] Work Phone[facility] Work Phone: [facility] Work Phone: [facility] Work Phone: [facility] Work Phone: [facility] Work Phone: [facility] Work Phone: [facility] Work Phone: [facility] Work Phone: [facility]: [facility] Work Phone: [facility] Work Phone[facility] Work Phone: [facility] Work Phone: [facility] Work Phone: [facility] Work Phone: [facility] Work Phone: [facility] Work Phone[facility] Work Phone[facility] Work Phone: [facility] Work Phone[facility] Work Phone[facility] Work Phone: [facility] Work Phone: [facility] Work Phone: [facility] Work Phone: [facility] Work Phone: [facility] Work Phone: [facility] Immunizations Immunization Date Immunization Notes Care Provider Fa [facility] 03-08-2024 Seasonal trivalent influenza vaccine, adjuvanted, preservative free Dr. Shell Siddiqui MD Work Phone: [facility] 03-29-2023 influenza, injectabl e, quadrivalent, preservative free Dr. Bisi Martinez Work Phone: [facility] 10-13-2022 pneumococcal polysaccharide vaccine, [address] Bisi Martinez Work Phone: [facility] 05-08-2022 Covid Pfizer Bivalen t Booster Dr. Bisi Martinez Work Phone: [facility] 05-08-2022 influenza, injectabl e, quadrivalent, preservative free Dr. Shell Siddiqui Work Phone: [facility] 05-08-2022 influenza, seasonal, injectable Dr. Bisi Martinez Work Phone: [facility] 05-08-2022 Seasonal, quadrivale nt, recombinant, injectable influenza vaccine, preservative free Dr. Shell Siddiqui Work Phone: [facility] 11-01-2021 Covid (Pfizer) Dr. Bisi Martinez Work Phone: [facility] 04-11-2021 Covid (Pfizer) Dr. Bisi Martinez Work Phone: [facility] 03-04-2021 Influenza, high dose seasonal Dr. Shell Siddiqui MD Work Phone: [facility] 03-04-2021 influenza, high dose seasonal, preservative-free Dr. Bisi Martinez Work Phone: [facility] 03-04-2021 influenza, injectabl e, quadrivalent, preservative free Dr. Shell Siddiqui Work Phone: [facility] 08-20-2020 COVID-19 (Pfizer) [facility] Work Phone: 07-30-2020 Covid (Pfizer) Dr. Bisi Martinez Work Phone: [facility] 07-23-2020 COVID-19 (Pfizer) [facility] Work Phone: 02-12-[address] Bisi Martinez Work Phone: [facility] 06-14-2012 pneumococcal polysaccharide vaccine, 23 valent Bisi Martinez [facility] Work Phone: 10-22-2008 tetanus toxoid, redu fercho diphtheria toxoid, and acellular pertussis vaccine, adsorbed Bisi Martinez [facility] Work Phone: Comment on above: Lot #[id number] /2010Site-right deltoidDose0.5mlgiven by Jose A Amos LPN Payers Date Payer Category Payer Self-pay [id number] 2019 Private Health Insurance [id number] 2019 Private Health Insurance [facility] [id number] 2016 Unknown [id number] 2011 Medicare [id number] 2011 Medicare [id number] 2011 Medicare [id number] 2007 Unknown [id number] 2005 Private Health Insurance [id number] 1945 Unknown [id number] 2.16.8 40.1.192763.3.579.2.278 1945 Unknown [id number] 2.16.8 40.1.530693.3.579.2.278 1946 Unknown [id number] 2.16.8 40.1.470141.3.579.2.278 1946 Unknown [id number] 2.16.8 40.1.727762.3.579.2.627 1945 Unknown [id number] 2.16.8 40.1.350365.3.579.2.627 1946 Unknown [id number] 2.16.84 0.1.238933.3.579.2.716 1946 Unknown [id number] 2.16. 840.1.860276.3.579.2.903 1946 Unknown [id number] 2.16. 840.1.693494.3.579.2.903 1946 Unknown [id number] 2.16. 840.1.815696.3.579.2.903 Unknown Unknown [id number] Unknown [id number] 2.16.8 40.1.334136.3.579.2.462 Unknown [id number] 2.16.8 40.1.327420.3.579.2.462 Unknown [id number] 2.16.8 40.1.468895.3.579.2.462 Unknown [id number] 2.16.8 40.1.678366.3.579.2.462 Unknown [id number] 2.16.8 40.1.054541.3.579.2.462 Unknown [id number] 2.16.8 40.1.463349.3.579.2.462 Unknown [id number] 2.16.8 40.1.138652.3.579.2.462 Unknown [id number] 2.16.8 40.1.867103.3.579.2.462 Unknown [id number] 2.16.8 40.1.130260.3.579.2.462 Unknown [id number] 2.16.8 40.1.505889.3.579.2.462 Unknown [id number] 2.16.8 40.1.943935.3.579.2.462 Unknown [id number] 2.16.8 40.1.787170.3.579.2.462 Unknown [id number] 2.16.8 40.1.611744.3.579.2.462 Unknown [id number] 2.16.8 40.1.499391.3.579.2.462 Unknown [id number] 2.16.8 40.1.139137.3.579.2.462 Unknown [id number] 2.16.8 40.1.066648.3.579.2.462 Unknown [id number] 2.16.8 40.1.284918.3.579.2.462 Unknown [id number] 2.16.8 40.1.763099.3.579.2.462 Unknown [id number] 2.16.8 40.1.878456.3.579.2.462 Unknown [id number] 2.16.8 40.1.121587.3.579.2.462 Unknown [id number] 2.16.8 40.1.968512.3.579.2.462 Unknown [id number] 2.16.8 40.1.909961.3.579.2.462 Social History Date Type Detail Facility Start: 05-22-2020 End: 05-13-2024 Living Situation Former smoker [facility] Work Phone: Comment on above: , heterosexua l Self-employed Tobacco use: Former smoker. [facility] Work Phone: Comment on above: 10/30/11 Tobacco use: Tobacco use: [facility] Work Phone: Comment on above: 10/30/11 Start: 04-17-2021 End: 08-25-2023 Tobacco smoking status NHIS Unknown if ever smoked [facility] Start: 04-19-2017 None [facility] Start: 04-19-2017 Spouse/ Signif icant Other [facility] Start: 04-19-2017 Non-smoker [facility] Start: 1945 Sex Assigned At Male A [facility] Start: 05-06-2022 End: 09-29-2024 Tobacco smoking status Ex-smoker (finding) [facility] Start: 1945 Sex Assigned At Not on file O [facility] Start: 05-22-2020 End: 05-13-2024 Gender identity Not on file [facility] Start: 06-22-2023 End: 05-13-2024 Tobacco smoking status NHIS Never smoked tobacco [facility] Start: 06-22-2023 End: 05-13-2024 Tobacco use and exposure Smokeless tobacco non-user [facility] Start: 06-22-2023 Alcohol intake Lifetime non-d ramiro (finding) [facility] Start: 05-13-2024 Alcoholic beverage intake Current non-drinker of alcohol (finding) [facility] National Score (1-10 0), lower number is lower risk Not on file [facility] Start: 09-03-2024 End: 10-02-2024 Sex Male (finding) [facility] Medical Equipment Procedure Code Equipment Code Equipment Origin al Text Equipment Identifier Dates EGD, with monitored anesthesia care Ligation clip, metallic [id number] [facility] Start: 08-26-2023 Goals Date Patient Goal Desired Activity /State Functional Status Date Assessment Result Facility 05-24-2022 Functional Status Antiembolism Stocking On/Re-applied bilateral knee high [facility] 05-24-2022 Functional Status Room check performed [facility] 05-24-2022 Functional Status Kylie rico [facility] 05-24-2022 Functional Status Kylie rico [facility] 05-24-2022 Functional Status Kylie rico [facility] 05-24-2022 Functional Status Demonstrates C orrect Call Light Use Yes [facility] 05-24-2022 Functional Status Kylie rico [facility] 05-23-2022 Functional Status ice on [facility]ie [facility] 05-23-2022 Functional Status 50 Kylie German [facility] 05-23-2022 Functional Status Ambulation in [facility] 05-23-2022 Functional Status Mod I Kylie German [facility] 05-23-2022 Functional Status Breakfast Percent 50 [facility] 05-23-2022 Functional Status Kylie rico [facility] 05-22-2022 Functional Status Supervised [facility]ylie [facility] 05-22-2022 Functional Status Independent Kylie German [facility] 05-21-2022 Functional Status NPO Status Maintained [facility] 05-21-2022 Functional Status Kylie rico [facility] 05-21-2022 Functional Status Kylie rico [facility] 05-21-2022 Functional Status Kylie rico [facility] 05-20-2022 Functional Status Single level home [facility] 05-20-2022 Functional Status Kylie rico [facility] 05-20-2022 [facility] Functional Status Sensory Defici ts Hearing deficit, left ear, Hearing deficit, right ear [facility] 02-24-2021 LP-IR Score 40 [facility]; [facility] Work Phone: Comment on above: INSULIN RESISTANCE MARKER <--Insulin Sen sitive Insulin Resistant--> Percentile in Reference PopulationInsulin Resistance ScoreLP-IR Score Low 25th 50th 75th High <27 27 45 63 >63LP-IR Score is inaccurate if patient is non-fasting. .The LP-IR score is a laboratory developed index that has beenassociated with insulin resistance and diabetes risk and should beused as one component of a physician's clinical assessment. Test(s) 284459-YNJ-R ; 614971-DIQ-T; 436150-Qnqhdwcoocdjo; 025936-Eotthwwzywk, Total; 556441-OGW-A (Total); 687580-Rxhgr LDL-P; 403343-WPV Size; 780140-YP-WQ Scorewas developed and its performance characteristics determinedby [employer]. It has not been cleared or approved by the Foodand Drug Administration.PATIENT WAS FASTINGPERFORMED BY: [facility] [address] [id number] BY: Veodin Cnyeat[address] [facility] [id number] 10-24-2020 LP-IR Score 37 [facility]; [facility] Work Phone: Comment on above: INSULIN RESISTANCE MARKER <--Insulin Sen sitive Insulin Resistant--> Percentile in Reference PopulationInsulin Resistance ScoreLP-IR Score Low 25th 50th 75th High <27 27 45 63 >63LP-IR Score is inaccurate if patient is non-fasting. .The LP-IR score is a laboratory developed index that has beenassociated with insulin resistance and diabetes risk and should beused as one component of a physician's clinical assessment. Test(s) 035624-UTN-H ; 175295-CRS-R; 279111-Khtgzaaxhvtry; 614726-Ezedqadbawf, Total; 683202-WYY-J (Total); 728282-Gsxxr LDL-P; 939707-CRX Size; 667057-LR-WR Scorewas developed and its performance characteristics determinedby [employer]. It has not been cleared or approved by the Foodand Drug Administration.PATIENT WAS FASTINGPERFORMED BY: [facility]1447 [facility] [id number] BY: [facility] [id number] 08-05-2020 LP-IR Score 55 [facility]; [facility] Work Phone: Comment on above: INSULIN RESISTANCE MARKER <--Insulin Sen sitive Insulin Resistant--> Percentile in Reference PopulationInsulin Resistance ScoreLP-IR Score Low 25th 50th 75th High <27 27 45 63 >63LP-IR Score is inaccurate if patient is non-fasting. .The LP-IR score is a laboratory developed index that has beenassociated with insulin resistance and diabetes risk and should beused as one component of a physician's clinical assessment. Test(s) 160360-VYR-Y ; 418047-ZAL-J; 946511-Urfqggrhqwaut; 455308-Zgeakndrllc, Total; 436540-PNL-I (Total); 678778-Sagwf LDL-P; 250242-ITN Size; 951839-ML-SX Scorewas developed and its performance characteristics determinedby [employer]. It has not been cleared or approved by the Foodand Drug Administration.PATIENT WAS FASTINGPERFORMED BY: [facility] CenterSxbahiyckh2475 [facility] [id number] BY: [facility]StartAncora Psychiatric HospitalTfqnwl8736 [facility] [id number] Mental Status Date Assessment Result Facility 10-02-2024 Cognitive function [facility] Work Phone: 07-11-2024 Cognitive function Level Of Cons ciousness Awake;Alert;Appropriate [facility] Work Phone: 08-26-2023 Cognitive function [facility] Work Phone: 05-24-2022 Mental Status Oriented x 4 [facility] Clinical Notes 09-12-2021 to 10-06-2024 Note Date & Type Note Facility 10-06-2024 Evaluation note Diagnosis Onset Date Resolution ASCVD (arteriosclerotic cardiovascular disease) acute October 062024 9:20am Frequent PVCs acute October 06, 2024 9:20am Essential hypertension chronic Ap 2024 9:20am Hyperlipidemia chronic September 9:20am Type 2 diabetes mellitus chronic October 06, 2024 9:20am [facility] Work Phone: 1(835) 455-668104-21-2025 Consult note [facility] Medical Records Department [address] [place] [address] Pre-Anesthesia Evaluation 10/02/24 0814 MR#: [id number] Acct: [id number] Name: MERRICK HODGES Rep #:[id number] : 1945 78 From: Kin Box MD PCP: Dr. Shell Siddiqui MD Status:REG SDC Y Race: C Location: [place] [address] ASA Classification* ASA Classification ASA Classification: 3 Assessment & Plan Anesthesia* Anesthesia Assessment Anesthesia Assessment: Discussed sedation and/or anesthesia options, risks, benefits, and alternatives with patient/parents/legal guardian/POA. Questions invited. The patient/parents/legal guardian/POA seems to understand and agrees to proceedwith anesthesia plan. Reviewed the physical assessment, medical history, allergy history and patient home medications list prior to surgery/procedure/anesthetic and documented any changes. Performed airway and anesthesia risk assessments. Anesthesia Type Anesthesia Type: MAC Anesthesia Focused Assessment* Airway Assessment Mouth opens: >3 cm Mallampati Score: II Focused Labs Anesthesia Preop lab: CBC WBC 8.8 K/mm3 (4.4-11.0) 09/01/24 10:44 09/01/24 RBC 4.74 M/mm3 (4.6-6.2) 09/01/24 10:44 09/01/24 Hgb 14.3 g/dL (13.0-16.5) 09/01/24 10:44 09/01/24 Hct 43.8 % (40-54) 09/01/24 10:44 09/01/24 Plt Count 226 K/mm3 (150-450) 09/01/24 10:44 09/01/24 CHEMISTRY Potassium 4.3 mmol/L (3.3-5.1) 09/01/24 10:44 09/01/24 Sodium 138 mmol/L (133-145) 09/01/24 10:44 09/01/24 Magnesium 2.0 mg/dL (1.5-2.2) 09/01/24 10:44 09/01/24 Phosphorus 3.2 mg/dL (2.5-4.9) 11/12/21 06:41 11/12/21 BUN 20 mg/dL (4-19) H 09/01/24 10:44 09/01/24 Creatinine 1.14 mg/dL (0.70-1.20) 09/01/24 10:44 09/01/24 Glucose 139 mg/dL (70-99) H 09/01/24 10:44 09/01/24 POC Glucose 110 mg/dL (74-106) H 08/26/23 07:37 08/26/23 TSH 1.670 uIU/mL (0.300-4.200) 09/01/24 10:44 /07/08 COAG PT 13.4 SECONDS (11.7-14.9) 07/11/24 12:30 Pre-Assessment Diagnosis/Proposed Procedure Planned Operative Procedure(s): CAUDAL EPIDURAL STEROID INJECTION UNDER FLUOROSCOPY Anesthesia History Anesthesia History - fulfillment specialist: Anesthesia History - fulfillment specialist Hx Hospitalization No 09/29/24 13:45 Any Problems With Anesthesia No 09/29/24 13:45 Cholinesterase deficiency No 09/29/24 13:45 You/Your Family Experience No 09/29/24 13:45 fever (hyperthermia) with Relationship Recent Exposure to Contagious No 08/26/23 07:33 Disease Does patient have nerve No 09/29/24 13:45 stimulator Patient instructed to have device shut off --Does patient have Pacemaker or ICD? When Was Last Pacemaker Check QUESTION #4 FULL TEXT: You/Your Family Experience fever (hyperthermia) with Anesthesia Last Oral Intake Last Oral intake: Last Oral Intake NPO since Meds taken in AM with sips of water? Meds patient instructed to take am of surgery PONV PONV - fulfillment specialist: PONV - fulfillment specialist Female No 09/29/24 13:45 HX of Motion Sickness No 09/29/24 13:45 HX of N/V After Surgery No 09/29/24 13:45 Non-Smoker Yes 09/29/24 13:45 Duration of Surgery greater No 09/29/24 13:45 than 60 minutes Number of Risk Factors 1 09/29/24 13:45 PONV Score Low Risk 09/29/24 13:45 Height & Weight Height & Weight: Anesthesia: Height & Weight Height 5 ft 10 in 08/17/24 10:15 Respiratory Assessment Respiratory Assessment - fulfillment specialist: Respiratory Tract Infection Hx - fulfillment specialist Hx Respiratory Tract Infection No 09/29/24 13:45 STOP Sleep Apnea STOP Sleep Apnea - fulfillment specialist: STOP Sleep Apnea - fulfillment specialist Hx Hypertension Yes: CONTROLLED WITH MED 09/29/24 13:45 Hx Sleep Apnea No 09/29/24 13:45 CPAP No 09/29/24 13:45 BIPAP No 09/29/24 13:45 Do you snore loudly (louder Yes 09/29/24 13:45 than talking or can be heard Do you often feel tired/ Yes 09/29/24 13:45 fatigued/ sleepy during daytime? Has anyone observed you stop No 09/29/24 13:45 breathing during sleep? STOP Results Positive 09/29/24 13:45 QUESTION #5 FULL TEXT : Do you snore loudly (louder than talking or can be heard through closeddoors)? 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 Specify any problems Hx of Preganancy in last 3 N/A 09/29/24 13:45 Months Nurse Filling Out Transfusion DSCHRIBER 09/29/24 13:45 & Questions: Date: 09/29/24 09/29/24 13:45 Time: 13:47 04/18/25 13:45 Patient unable to answer at this time (ie. confused, unrespo /Reproduction History /Reproductive History - fulfillment specialist: /Reproductive Hx- fulfillment specialist Hx Now Gestational Age (in weeks): EDC: Hx Hx Para Hx Section SAB No 09/29/24 13:45 [facility] Medical History Restless legs Back pain History of hiatal hernia Gastric reflux History of edema History of heart attack History of Holter monitoring Wears hearing aid Wears glasses Wears dentures Arthritis High cholesterol Dietary restriction Diverticulosis Former smoker History of pain when walking History of echocardiogram History of stress test Cardiology follow-up encounter History of irregular heartbeat NSVT (nonsustained ventricular tachycardia) Type 2 diabetes mellitus Essential hypertension Peripheral arterial disease History of non-ST elevation myocardial infarction (NSTEMI) 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 Lumbar stenosis Chronic back pain Overweight (BMI 25.0-29.9) Hyperlipidemia Hypertension Home Medications ?Medication ?Instructions ?Recorded ?Last Taken ?Type amlodipine 5 mg tablet 5 mg PO BID 04/16/17 4 History fosinopril 20 mg tablet 20 mg PO DAILY 04/16/1708/12 History multivitamin 1 tab PO DAILY 04/16/17 Unkn own History aspirin 81 mg tablet,delayed 81 mg PO QDAY 01/06/18 History release (Adult Aspirin Regimen) rosuvastatin 10 mg tablet 10 mg PO DAILY 10/17/21 Unkn own History metoprolol tartrate 50 mg tablet 50 mg PO BID #60 tabs 04/27/22 08/26/23 Rx clopidogrel 75 mg tablet See Rx Instructions .Route 0 11/29/23 09/27/24 Rx .COMPLEX #90 tabs fiber 1 tab PO DAILY 09/29/24 Unkn own History omeprazole 20 mg tablet,delayed 20 mg PO DAILY 5 Unknown History release Allergy/AdvReac Type Severity Reaction Status Date / Time atorvastatin (From Lipitor) AdvReac Intermediate Myalgias Verified 09/29/24 13:43 Family History Father , of cancer Myocardial infarction, Onset Age: 70 Cancer kidney Mother , age 66 Bleeding in brain due to brain aneurysm Brother Myocardial infarction, Onset Age: 62 CAD (coronary artery disease) Surgical History History of cardiac catheterization History of esophagogastroduodenoscopy (EGD) H/O bilateral cataract extraction History of back surgery S/P femoral-femoral bypass surgery Stented coronary artery (~09/21/03) History of left heart catheterization (~04/02/22) Social History household members: spouse current occupational status: employed current occupation: [employer] Smoking Status: Former smoker quit date: 06/14/01 pack-years: 20 Electronic Cigarette Use: not used how long ago did patient quit smokin alcohol intake: never substance use type: does not use do you feel safe at home: Yes Review of Systems (Anesthesia) ROS Narrative System reviewed and no additional complaints, except as documented. 10/02/24813 > Date _ Kin Box MD [facility] Signature: Date CC: ~ Signed [facility]04-21-2025 Consult note [facility] Medical Records Department [address] [place] [address] Anesthesia Postop Eval II 10/02/24 1000 MR#: [id number] Acct: [id number] Name: HODGESMERRICK Rep #:[id number] : 1945 78 From: Kin Box MD PCP: Dr. Shell Siddiqui MD Status:REG SDC Y Race: C Location: [address] Anesthesia Postop Eval I Sum Postop Eval Completion status Anesthesia document: Postop Eval 1 completed: Yes Anesthesia Postop Eval I Summary Anesthesia Postop Eval I Summary: Anesthesia Postop Eval I: Assessment Summary Airway patent Yes 10/02/24 09:50 [email or web address] Spontaneous unlabored Yes 10/02/24 09:50 [email or web address].BHOS respirations Mental status Calm 10/02/24 09:50 [email or web address].BHOS nausea No 10/02/24 09:50 [email or web address].BHOS Vomiting No 10/02/24 09:50 [email or web address] Anesthesia Postop Eval I: Fluid Summary Crystalloid volume administer 0 10/02/24 09:50 [email or web address].BHOS (ml) Colloids volume administered ( ml) Blood Product volume administered (ml) Total IV fluid infused 0 10/02/24 09:50 [email or web address] Anesthesia Postop Eval I: Summary Notes Anesthesia Complication No 10/02/24 09:50 [email or web address] Anesthesia Complication Comment: Post-operative progress note Anesthesia: Postop Eval II Evaluation Mental status: Awake Pain Level: 2 nausea: No Vomiting: No 10/02/24 1000 > Date _ Kin Box MD Cosigner Signature: Date CC: ~ Signed [facility]04-21-2025 Consult note Author Kin andreina [facility] Note Date/Time October 02, 2024 10: 31am [facility] Medical Records Department [address] [place] [address] Pre-Anesthesia Evaluation 10/02/24813 MR#: [id number] Acct: [id number] Name: HODGESMERRICK VERONA Rep #:[id number] : 1945 78 From: Kin Box MD PCP: Dr. Shell Siddiqui MD Status:REG [facility] Y Race: C Location: [place] [address] ASA Classification* ASA Classification ASA Classification: 3 Assessment & Plan Anesthesia* Anesthesia Assessment Anesthesia Assessment: Discussed sedation and/or anesthesia options, risks, benefits, and alternatives with patient/parents/legal guardian/POA. Questions invited. The patient/parents/legal guardian/POA seems to understand and agrees to proceedwith anesthesia plan. Reviewed the physical assessment, medical history, allergy history and patient home medications list prior to surgery/procedure/anesthetic and documented any changes. Performed airway and anesthesia risk assessments. Anesthesia Type Anesthesia Type: MAC Anesthesia Focused Assessment* Airway Assessment Mouth opens: >3 cm Mallampati Score: II Focused Labs Anesthesia Preop lab: CBC WBC 8.8 K/mm3 (4.4-11.0) 09/01/24 10:44 09/01/24 RBC 4.74 M/mm3 (4.6-6.2) 09/01/24 10:44 09/01/24 Hgb 14.3 g/dL (13.0-16.5) 09/01/24 10:44 09/01/24 Hct 43.8 % (40-54) 09/01/24 10:44 09/01/24 Plt Count 226 K/mm3 (150-450) 09/01/24 10:44 09/01/24 CHEMISTRY Potassium 4.3 mmol/L (3.3-5.1) 09/01/24 10:44 09/01/24 Sodium 138 mmol/L (133-145) 09/01/24 10:44 09/01/24 Magnesium 2.0 mg/dL (1.5-2.2) 09/01/24 10:44 09/01/24 Phosphorus 3.2 mg/dL (2.5-4.9) 11/12/21 06:41 11/12/21 BUN 20 mg/dL (4-19) H 09/01/24 10:44 09/01/24 Creatinine 1.14 mg/dL (0.70-1.20) 09/01/24 10:44 09/01/24 Glucose 139 mg/dL (70-99) H 09/01/24 10:44 09/01/24 POC Glucose 110 mg/dL (74-106) H 08/26/23 07:37 08/26/23 TSH 1.670 uIU/mL (0.300-4.200) 09/01/24 10:44 03/07/08 COAG PT 13.4 SECONDS (11.7-14.9) 07/11/24 12:30 Pre-Assessment Diagnosis/Proposed Procedure Planned Operative Procedure(s): CAUDAL EPIDURAL STEROID INJECTION UNDER FLUOROSCOPY Anesthesia History Anesthesia History - fulfillment specialist: Anesthesia History - fulfillment specialist Hx Hospitalization No 09/29/24 13:45 Any Problems With Anesthesia No 09/29/24 13:45 Cholinesterase deficiency No 09/29/24 13:45 You/Your Family Experience No 09/29/24 13:45 fever (hyperthermia) with Relationship Recent Exposure to Contagious No 08/26/23 07:33 Disease Does patient have nerve No 09/29/24 13:45 stimulator Patient instructed to have device shut off --Does patient have Pacemaker or ICD? When Was Last Pacemaker Check QUESTION #4 FULL TEXT: You/Your Family Experience fever (hyperthermia) with Anesthesia Last Oral Intake Last Oral intake: Last Oral Intake NPO since Meds taken in AM with sips of water? Meds patient instructed to take am of surgery PONV PONV - fulfillment specialist: PONV - fulfillment specialist Female No 09/29/24 13:45 HX of Motion Sickness No 09/29/24 13:45 HX of N/V After Surgery No 09/29/24 13:45 Non-Smoker Yes 09/29/24 13:45 Duration of Surgery greater No 09/29/24 13:45 than 60 minutes Number of Risk Factors 1 09/29/24 13:45 PONV Score Low Risk 09/29/24 13:45 Height & Weight Height & Weight: Anesthesia: Height & Weight Height 5 ft 10 in 08/17/24 10:15 Respiratory Assessment Respiratory Assessment - fulfillment specialist: Respiratory Tract Infection Hx - fulfillment specialist Hx Respiratory Tract Infection No 09/29/24 13:45 STOP Sleep Apnea STOP Sleep Apnea - fulfillment specialist: STOP Sleep Apnea - fulfillment specialist Hx Hypertension Yes: CONTROLLED WITH MED 09/29/24 13:45 Hx Sleep Apnea No 09/29/24 13:45 CPAP No 09/29/24 13:45 BIPAP No 09/29/24 13:45 Do you snore loudly (louder Yes 09/29/24 13:45 than talking or can be heard Do you often feel tired/ Yes 09/29/24 13:45 fatigued/ sleepy during daytime? Has anyone observed you stop No 09/29/24 13:45 breathing during sleep? STOP Results Positive 09/29/24 13:45 QUESTION #5 FULL TEXT : Do you snore loudly (louder than talking or can be heard through closed doors)? 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 Specify any problems Hx of Preganancy in last 3 N/A 09/29/24 13:45 Months Nurse Filling Out Transfusion DSCHRIBER 09/29/24 13:45 & Questions: Date: 09/29/24 09/29/24 13:45 Time: 13:47 09/29/24 13:45 Patient unable to answer at this time (ie. confused, unrespo /Reproduction History /Reproductive History - fulfillment specialist: /Reproductive Hx- fulfillment specialist Hx Now Gestational Age (in weeks): EDC: Hx Hx Para Hx Section SAB No 09/29/24 13:45 PFSH Medical History Restless legs Back pain History of hiatal hernia Gastric reflux History of edema History of heart attack History of Holter monitoring Wears hearing aid Wears glasses Wears dentures Arthritis High cholesterol Dietary restriction Diverticulosis Former smoker History of pain when walking History of echocardiogram History of stress test Cardiology follow-up encounter History of irregular heartbeat NSVT (nonsustained ventricular tachycardia) Type 2 diabetes mellitus Essential hypertension Peripheral arterial disease History of non-ST elevation myocardial infarction (NSTEMI) 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 Lumbar stenosis Chronic back pain Overweight (BMI 25.0-29.9) Hyperlipidemia Hypertension Home Medications ?Medication ?Instructions ?Recorded ?Last Taken ?Type amlodipine 5 mg tablet 5 mg PO BID 04/16/17 4 History fosinopril 20 mg tablet 20 mg PO DAILY 04/16/1708/12 History multivitamin 1 tab PO DAILY 04/16/17 Unkn own History aspirin 81 mg tablet,delayed 81 mg PO QDAY 01/06/18 History release (Adult Aspirin Regimen) rosuvastatin 10 mg tablet 10 mg PO DAILY 10/17/21 Unkn own History metoprolol tartrate 50 mg tablet 50 mg PO BID #60 tabs 04/27/22 08/26/23 Rx clopidogrel 75 mg tablet See Rx Instructions .Route 0 11/29/23 09/27/24 Rx .COMPLEX #90 tabs fiber 1 tab PO DAILY 09/29/24 Unkn own History omeprazole 20 mg tablet,delayed 20 mg PO DAILY 5 Unknown History release Allergy/AdvReac Type Severity Reaction Status Date / Time atorvastatin (From Lipitor) AdvReac Intermediate Myalgias Verified 09/29/24 13:43 Family History Father , of cancer Myocardial infarction, Onset Age: 70 Cancer kidney Mother , age 66 Bleeding in brain due to brain aneurysm Brother Myocardial infarction, Onset Age: 62 CAD (coronary artery disease) Surgical History History of cardiac catheterization History of esophagogastroduodenoscopy (EGD) H/O bilateral cataract extraction History of back surgery S/P femoral-femoral bypass surgery Stented coronary artery (~09/21/03) History of left heart catheterization (~04/02/22) Social History household members: spouse current occupational status: employed current occupation: [employer] Smoking Status: Former smoker quit date: 06/14/01 pack-years: 20 Electronic Cigarette Use: not used how long ago did patient quit smokin alcohol intake: never substance use type: does not use do you feel safe at home: Yes Review of Systems (Anesthesia) ROS Narrative System reviewed and no additional complaints, except as documented. 10/02/24813 <Electronically signed by Kin Box MD > Date _ Kin Box MD Cosigner Signature: Date CC: ~ Signed [facility] Work Phone: 1(329) 303-448304-21-2025 Procedure note [facility] Medical Records Department [address] [place] [address] Operative Report 10/02/24 0953 MR#: [id number] Acct: [id number] Name: MERRICK HODGES VERONA Rep #:[id number] : 1945 78 From: Robby Garvin MD PCP: Dr. Shell Siddiqui MD [place] [facility] [place]: [place] [address] Operative Report (Standard) Operative Information Date of Procedure: 10/02/24 Pre-Operative Diagnosis: Lumbosacral radiculopathy, lumbosacral degenerative disc disease, lumbosacral spinal stenosis, postlaminectomy syndrome of the lumbar spine Post-Operative Diagnosis: Lumbosacral radiculopathy, lumbosacral degenerative disc disease, lumbosacral spinal stenosis, postlaminectomy syndrome of the lumbar spine Surgery/Procedure Performed: Diagnostic/therapeutic caudal epidural steroid injection under fluoroscopic guidance agricultural commodities inspector: No Type of Anesthesia: Local MAC RN Documented Start/Stop Times: Operation Date: 10/02/24 10:00 Case Time Into Pre-Op 10/02/24 08:28 Out of Pre-Op 10/02/24 09:24 Anesthesia Start 10/02/24 09:34 Into Room 10/02/24 09:34 Procedure Start 10/02/24 09:41 Procedure End 10/02/24 09:43 Anesthesia End 10/02/24 09:45 Out of Room 10/02/24 09:45 Into Recovery 10/02/24 09:47 Procedure Start Time: :54 Procedure Stop Time: :54 Select all DRAINS/GRAFTS/IMPLANTS that apply: None Estimated Blood Loss: 1 Specimen collected: No Description of surgery: ANESTHESIA: MAC. BLOOD LOSS: Minimal. COMPLICATIONS: None. DESCRIPTION OF PROCEDURE: History and physical of today was reviewed. Risks and benefits of the procedure were explained. The patient understood and agreedto proceed. Informed consent was obtained. IV inserted per routine protocol. The patient was taken to the operating room and placed in the proneposition with a pillow positioned underneath the abdomen. The lower back and tailbone area was prepped and draped in a sterile fashion using iodine x3. Under fluoroscopy guidance on a lateral view, the caudal space was identified. The skin and subcutaneous tissue was anesthetized with approximately3 mL of 1% lidocaine using a 25-gauge regular needle. Under direct visualization with fluoroscopy, u sing a 22-gauge 3-1/2-inch spinal needle, the needle was advanced via the skin through the sacral hiatus. The tip of the needle was passed through the sacrococcygeal ligament and advanced to approximately S4 area. After negative aspiration of blood or CSF, a total of 3 mL of contrast was injected to confirm correct placement of the needle as well as cephalad spread. The spread was followed to approximately L5 area. After confirmation on AP as well as lateral view and repeated negative aspiration, a total of 15 mL of preservative-free 0.125% Marcaine with 80 mg of Depo-Medrol was injected easily. The needle was then removed intact. The patient experienced no sign or symptoms of intrathecal or intravascular injection. The patient experienced no paresthesia. The procedure was completed without any apparent difficulty or anycomplications. The patient appeared to tolerate it well. ASSESSMENT AND PLAN: This is a 78-year-old male with lumbosacral radiculopathy, lumbosacral spinal stenosis, postlaminectomy syndrome of the lumbar spine, status post diagnostic/therapeutic caudal epidural steroid injection under fluoroscopic guidance, patient will continue his current medications, patient will follow up in approximately 2 weeks for reevaluation. Surgical Findings: 1 Complications Complications: No Admit VTE Documentation VTE Present on Admission: No VTE Mechan Device Prophylaxis: None VTE Pharm Prophylaxis ordered?: No 10/02/24 0956 Cosigner Signature (if applicable): CC: Dr. Shell Siddiqui MD; Dr. Robby Garvin MD~ Signed [facility]04-21-2025 Consult note [facility] Medical Records Department [address] [place] [address] Anesthesia Postop Eval I 10/02/24 0948 MR#: [id number] Acct: [id number] Name: MERRICK HODGES Rep #:[id number] : 1945 78 From: Dangelo vidal PACKAGER PCP: Dr. Shell Siddiqui MD [place] [facility] Y Race: C Location: [place] [address] Anesthesia: Postop Eval I Current Vital Signs Temperature: 98.2 F Pulse Rate: 55 Blood Pressure: 114/67 Respiratory Rate: 18 Pulse Ox: 94 Oxygen Delivery Method: Room Air Assessment Airway patent: Yes Spontaneous unlabored respirations: Yes Mental status: Calm nausea: No Vomiting: No Anesthesia Complication: No Fluid Hydration Crystalloid volume administer (ml): 0 Total IV fluid infused: 0 Progress Note Anesthesia document: Postop Eval 1 completed: Yes 10/02/24 0950 tler PACKAGER> Date _ Dangelo Price PACKAGER Cosigner Signature: Date CC: ~ Signed [facility]02-04-2025 Evaluation note* Diagnosis Onset Date Resolution Status Admit Date Adjacent segment disease of lumbar spine with history of fusion procedure acute July 18, 025 7:30am Spinal stenosis of lumbar region with neurogenic claudication acute July 18 7:30am Heart palpitations acute August 17, 2024 10:12am 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 chronic August 17, 2024 10:12am Essential hypertension chronic [facility] 2024 10:12am Hyperlipidemia chronic August 17, 2024 10:12am Peripheral arterial disease chronic August 17, 2024 10:12am Type 2 diabetes mellitus chronic August 17, 2024 10:12am ASCVD (arteriosclerotic cardiovascular disease) acute October 062024 9:20am Frequent PVCs acute October 06, 2024 9:20am Essential hypertension chronic 2024 9:20am Hyperlipidemia chronic September 9:20am Type 2 diabetes mellitus chronic October 06, 2024 9:20am [facility] Work Phone: 1(568) 965-329612-27-2024 Evaluation note* Diagnosis Onset Date Resolution Status Admit Date Adjacent segment disease of lumbar spine with history of fusion procedure acute June 09, 2024 8:51am Adjacent segment disease of lumbar spine with history of fusion procedure acute July 18, 025 7:30am Spinal stenosis of lumbar region with neurogenic claudication acute July 18 7:30am Heart palpitations acute August 17, 2024 10:12am 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 Pt voiced understanding. Kaya Gomez LPN [facility]12-02-2024 Miscellaneous Notes* Telephone Encounter - Kaya Gomez LPN - 05/15/2024 2:05 PM EST Pt notified of results and provider message. Pt voiced understanding. Kaya Gomez LPN * Telephone Encounter - Ok Nicolas PA-C - 05/15/2024 10:14 AM EST Please call and let patient know he was negative for pneumonia on his chest x- ray. He can discontinue the doxycycline. Follow-up with PCP if symptoms or not improving. documented [facility] Telephone encounter Note * Telephone Encounter - Ok Nicolas PA-C - 05/15/2024 10:14 AM EST Please call and let patient know he was negative for pneumonia on his chest x- ray. He can discontinue the doxycycline. Follow-up with PCP if symptoms or not improving. [facility]12-02-2024 History of Present illness Narrative* Emiliana Azevedo RT(R) - 05/15/2024 9:20 AM EST Radiology Service Progress Note PATIENT NAME: Merrick Hodges DATE OF SERVICE: May 15, 2024 TIME: 9:42 AM PATIENT IDENTITY VERIFICATION COMPLETED USING TWO (2) IDENTIFIERS: Name and Date of confirmedby patient verbally. FALL SCREENING: Has the patient had 2 falls in the last year or 1 fall with injury or currently using an Ambulatory Assistive Device (Walker, Cane, Wheelchair, Crutches, etc.)? No PATIENT GENDER DATA: Male PATIENT RELEVANT IMPLANT DATA REVIEWED: Yes PATIENT PRESENTS WITH AN IMPLANTABLE OR ATTACHED PUBLIC HOUSING INTERVIEWER: No RADIOLOGY DEPARTMENT: General X-ray: Exam(s) Completed: Chest X-Ray PERIPHERAL IV DATA: Not applicable SIGNED BY: RT Donna(Ailin) May 15, 2024 9:42 AM documented in this encounterUniversity [facility]-2024 NoteHNO ID: [id number] Author: EMILIANA AZEVEDO RT(R) Service: ? Author Type: Curtain Stretcher Type: Progress Notes Filed: 05/15/2024 09:50 Note Text: Radiology Service Progress Note PATIENT NAME: Merrick Hodges DATE OF SERVICE: May 15, 2024 TIME: 9:42 AM PATIENT IDENTITY VERIFICATION COMPLETED USING TWO (2) IDENTIFIERS: Name and Date of confirmed by patient verbally. FALL SCREENING: Has the patient had 2 falls in the last year or 1 fall with injury or currently using an Ambulatory Assistive Device (Walker, Cane, Wheelchair, Crutches, etc.)? No PATIENT GENDER DATA: Male PATIENT RELEVANT IMPLANT DATA REVIEWED: Yes PATIENT PRESENTS WITH AN IMPLANTABLE OR ATTACHED PUBLIC HOUSING INTERVIEWER: No RADIOLOGY DEPARTMENT: General X-ray: Exam(s) Completed: Chest X-Ray PERIPHERAL IV DATA: Not applicable SIGNED BY: RT Donna(R) May 15, 2024 9:42 [facility]12-01-2024 Telephone encounter Note* Telephone Encounter - Britta García MA - 05/14/2024 9:23 AM EST Patient given results and verbalized understanding of instructions given. Britta García MA [facility]12-01-2024 Miscellaneous Notes* Telephone Encounter - Britta García MA - 05/14/2024 9:23 AM EST Patient given results and verbalized understanding of instructions given. Britta García MA * Telephone Encounter - Roseann Randolph MA - 05/14/2024 8:27 AM EST Left message for pt to call back. Roseann Randolph MA * Telephone Encounter - Ok Nicolas PA-C - 05/14/2024 8:02 AM EST Please call and let patient know he was positive for COVID. He is out of the window for antiviral treatment at this point. I would recommend still doing the chest x-ray Wednesday and continuing doxycycline until the xray is back. Will call on results later. documented in this encounterUniversity [facility]12-[facility]24 Telephone encounter Note * Telephone Encounter - Roseann Randolph MA - 05/14/2024 8:27 AM EST Left message for pt to call back. Roseann Randolph MA [facility]12-01-2024 Telephone encounter Note* Telephone Encounter - Ok Nicolas PA-C - 05/14/2024 8:02 AM EST Please call and let patient know he was positive for COVID. He is out of the window for antiviral treatment at this point. I would recommend still doing the chest x-ray Wednesday and continuing doxycycline until the xray is back. Will call on results later. [facility]11-30-2024 NoteHNO ID: [id number] Author: OK NICOLAS PA-C Service: ? 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 Subjective Merrick Hodges is a 78 year old male. HPI Presents with cough and chest congestion over the past 5 days. He has had decreased appetite as well. He is drinking fluids and urinating normally. No fever that he knows of. No shortness of breath. He is got body aches and chills. No vomiting or diarrhea. No home COVID test done. Denies history of asthma or COPD. Review of Systems Constitutional: Positive for appetite change and fatigue. Negative for fever. HENT: Positive for congestion. Negative for sinus pressure and sinus pain. Respiratory: Positive for cough. Negative for shortness of breath and wheezing. Cardiovascular: Negative. Gastrointestinal: Negative. Genitourinary: Negative. Musculoskeletal: Positive for myalgias. Neurological: Positive for headaches. All other systems reviewed and are negative. PAST MEDICAL HISTORY Diagnosis Date Benign neoplasm of colon Carotid stenosis Diverticulosis of colon (without mention of hemorrhage) Essential hypertension, benign Internal hemorrhoids without mention of complication Obstructive sleep apnea PVD (peripheral vascular disease) (HCC) Current Outpatient Medications Medication Sig Dispense Refill clopidogrel (PLAVIX) 75 mg tablet Take 75 mg by mouth once daily. aspirin, enteric coated (ASPIRIN, ENTERIC COATED) 81 mg EC tablet Take 81 mg by mouth once daily. rosuvastatin (CRESTOR) 10 mg tablet Take 10 mg by mouth once daily. metoprolol tartrate, short acting, (LOPRESSOR) 25 mg tablet Take 1 tablet by mouth once daily. amLODIPine (NORVASC) 5 mg tablet Take 1 tablet by mouth twice daily. Fosinopril Sodium 20 mg ORAL tablet Take one(1) tablet daily. 0 multivitamins(DAILY VITAMIN TAB) Take one(1) tablet daily. 0 doxycycline (VIBRA-TABS) 100 mg tablet Take 1 tablet by mouth two times a day for 7 days. 14 tablet 0 albuterol HFA (VENTOLIN HFA) 90 mcg/actuation inhaler Inhale 2 Puffs as instructed every 4 hours as needed for wheezing/shortness of breath. 1 Each 0 benzonatate (TESSALON PERLE) 100 mg capsule Take 2 capsules by mouth three times a day as needed. 30 capsule 0 cilostazol (PLETAL) 100 mg tablet Take 100 mg by mouth twice daily. (Patient not taking: Reported on 05/13/2024) gabapentin (NEURONTIN) 300 mg capsule (Patient not taking: Reported on 05/13/2024) atorvastatin (LIPITOR) 40 mg tablet Take 1 tablet by mouth once daily. (Patient not taking: Reported on 01/28/2018 ) 0 colestipol 1 gram ORAL tablet (Patient not taking: Reported on 05/13/2024) 0 ASPIRIN 325 MG TAB Take one (1) tablet daily . (Patient not taking: Reported on 05/13/2024) 0 No current facility-administered medications for this visit. PAST SURGICAL HISTORY Procedure Laterality Date BYP OTH/THN VEIN FEMORAL-POPLITEAL Bypass graft fem-pop COLONOSCOPY FLX DX W/COLLJ SPEC WHEN PFRMD 04/12/2006 Colonoscopy LOW BACK DISK SURGERY 2007 No family history on file. Social History Tobacco Use Smoking status: Never Smokeless tobacco: Never Substance Use Topics Alcohol use: No Drug use: No Objective BP 110/70 Pulse 94 Temp 37.3 ?C (99.1 ?F) Resp 20 Wt 74.2 kg (163 lb 9.3 oz) SpO2 97% BMI 23.47 kg/m? Physical Exam Vitals reviewed. Constitutional: Appearance: Normal appearance. HENT: Head: Normocephalic and atraumatic. Right Ear: Tympanic membrane, ear canal and external ear normal. Left Ear: Tympanic membrane, ear canal and external ear normal. Nose: Congestion present. Mouth/Throat: Mouth: Mucous membranes are moist. Pharynx: Oropharynx is clear. Cardiovascular: Rate and Rhythm: Normal rate and regular rhythm. Heart sounds: Normal heart sounds. Pulmonary: Effort: Pulmonary effort is normal. Breath sounds: Normal breath sounds. Musculoskeletal: Cervical back: Neck supple. Lymphadenopathy: Cervical: No cervical adenopathy. Skin: General: Skin is warm and dry. Neurological: Mental Status: He is alert. Assessment and Plan ASSESSMENT/PLAN: 1. Acute cough - ICD9: 786.2, ICD10: R05.1 I will cover with doxycycline, albuterol and Tessalon. Close for the weekend, patient will return Wednesday for x-ray. If there is a pneumonia would add Augmentin. Discussed red flags for ER care. Patient and family member with him agreeable with plan. - XR CHEST 2V FRONTAL/LAT - COVID AND INFLUENZA A/B AND RSV PCR, ROUTINE [facility]11-30-2024 History of Present illness Narrative* Ok Nicolas PA-C - 05/13/2024 2:11 PM EST This note was created using [employer]. Subjective Merrick Hodges is a 78 year old male. HPI Presents with cough and chest congestion over the past 5 days. He has had decreased appetite as well. He is drinking fluids and urinating normally. No fever that he knows of. No shortness of breath. He is got body aches and chills. No vomiting or diarrhea. No home COVID test done. Denies history ofasthma or COPD. Review of Systems Constitutional: Positive for appetite change and fatigue. Negative for fever. HENT: Positive for congestion. Negative for sinus pressure and sinus pain. Respiratory: Positive for cough. Negative for shortness of breath and wheezing. Cardiovascular: Negative. Gastrointestinal: Negative. Genitourinary: Negative. Musculoskeletal: Positive for myalgias. Neurological: Positive for headaches. All other systems reviewed and are negative. PAST MEDICAL HISTORY Diagnosis Date Benign neoplasm of colon Carotid stenosis Diverticulosis of colon (without mention of hemorrhage) Essential hypertension, benign Internal hemorrhoids without mention of complication Obstructive sleep apnea PVD (peripheral vascular disease) (HCC) Current Outpatient Medications Medication Sig Dispense Refill clopidogrel (PLAVIX) 75 mg tablet Take 75 mg by mouth once daily. aspirin, enteric coated (ASPIRIN, ENTERIC COATED) 81 mg EC tablet Take 81 mg by mouth once daily. rosuvastatin (CRESTOR) 10 mg tablet Take 10 mg by mouth once daily. metoprolol tartrate, short acting, (LOPRESSOR) 25 mg tablet Take 1 tablet by mouth once daily. amLODIPine (NORVASC) 5 mg tablet Take 1 tablet by mouth twice daily. Fosinopril Sodium 20 mg ORAL tablet Take one(1) tablet daily. 0 multivitamins(DAILY VITAMIN TAB) Take one(1) tablet daily. 0 doxycycline (VIBRA-TABS) 100 mg tablet Take 1 tablet by mouth two times a day for 7 days. 14 tablet0 albuterol HFA (VENTOLIN HFA) 90 mcg/actuation inhaler Inhale 2 Puffs as instructed every 4 hours asneeded for wheezing/shortness of breath. 1 Each 0 benzonatate (TESSALON PERLE) 100 mg capsule Take 2 capsules by mouth three times a day as needed. 30 capsule 0 cilostazol (PLETAL) 100 mg tablet Take 100 mg by mouth twice daily. (Patient not taking: Reported on 05/13/2024) gabapentin (NEURONTIN) 300 mg capsule (Patient not taking: Reported on 05/13/2024) atorvastatin (LIPITOR) 40 mg tablet Take 1 tablet by mouth once daily. (Patient not taking: Reported on 01/28/2018 ) 0 colestipol 1 gram ORAL tablet (Patient not taking: Reported on 05/13/2024) 0 ASPIRIN 325 MG TAB Take one (1) tablet daily . (Patient not taking: Reported on 05/13/2024) 0 No current facility-administered medications for this visit. PAST SURGICAL HISTORY Procedure Laterality Date BYP OTH/THN VEIN FEMORAL-POPLITEAL Bypass graft [facility] COLONOSCOPY FLX DX W/COLLJ SPEC WHEN PFRMD 04/12/2006 Colonoscopy LOW BACK DISK SURGERY 2008 No family history on file. Social History Tobacco Use Smoking status: Never Smokeless tobacco: Never Substance Use Topics Alcohol use: No Drug use: No Objective BP 110/70 Pulse 94 Temp 37.3 C (99.1 F) Resp 20 Wt 74.2 kg (163 lb 9.3 oz) SpO2 97% BMI23.47 kg/m Physical Exam Vitals reviewed. Constitutional: Appearance: Normal appearance. HENT: Head: Normocephalic and atraumatic. Right Ear: Tympanic membrane, ear canal and external ear normal. Left Ear: Tympanic membrane, ear canal and external ear normal. Nose: Congestion present. Mouth/Throat: Mouth: Mucous membranes are moist. Pharynx: Oropharynx is clear. Cardiovascular: Rate and Rhythm: Normal rate and regular rhythm. Heart sounds: Normal heart sounds. Pulmonary: Effort: Pulmonary effort is normal. Breath sounds: Normal breath sounds. Musculoskeletal: Cervical back: Neck supple. Lymphadenopathy: Cervical: No cervical adenopathy. Skin: General: Skin is warm and dry. Neurological: Mental Status: He is alert. Assessment and Plan ASSESSMENT/PLAN: 1. Acute cough - ICD9: 786.2, ICD10: R05.1 I will cover with doxycycline, albuterol and Tessalon. Close for the weekend, patient will return Wednesday for x-ray. If there is a pneumonia would add Augmentin. Discussed red flags for ER care. Patient and family member with him agreeable with plan. - XR CHEST 2V FRONTAL/LAT - COVID & INFLUENZA A/B & RSV PCR, ROUTINE Ok Nicolas PA-C [facility] Procedure [facility]01-09-2024 History of Present illness Narrative* Courtney Chu AuD - 06/22/2023 2:04 PM EST Images from the original note were not included. [facility] [address] [address] Name: Merrick Hodges : 1945 Date: 06/22/23 History & Purpose of Evaluation: Merrick Hodges was seen today for audiologic assessment at the request of Ervin Anderson MD.He was accompanied by his , Danae Hodges. Mr. Hodges's chief auditory complaint was bilateral hearing loss. He reported having hearing loss for many years, but approximately one year ago he began noticing a gradual decline. Please see below for other pertinent case history information as reported by Mr and Mrs Hodges. Otologic Symptoms R L Noise Exposure Y N Medical Y N Hearing Loss [x] [x] Occupational [] [x] Hypertension [x] [] Tinnitus [x] [x] Recreational-(past) did not wear hearing protection [x] [] Diabetes-(prediabetic) [] [] Otalgia [] [] [x] [] Hypercholesterolemia [] [x] Otorrhea [] [] Heart Disease [x] [] Aural Fullness [] [] Family History-father [x] [] Stroke [] [x] Meniere s Disease [] [] Cancer [] [x] Y N Sp./Lang. Skills Ear Surgery R L Vertigo [] [x] Appropriate [x] [] PE Tubes [] [] Dizziness [] [x] In Therapy [] [x] Mastoidectomy [] [] Imbalance [] [x] Social Acoustic Neuroma [] [] Vestibular Rehab [] [x] Depression [] [x] Tympanoplasty [] [] Hearing aids: binaural MiracleEar ITCs (he estimates three years old, but I could not verify by serial number) Other: Results: Otoscopy: Performed by Dr. Anderson prior to testing. Puretone Air & Bone Conduction Audiometry: Pure tone audiometry revealed a bilateral sensorineural hearing loss, mild in the low frequencies, sloping to severe in the high frequencies. Speech Audiometry: Word recognition was good (84%) when assessed at above normal conversational loudness level using recorded male voice. Immittance Audiometry: Tympanometry revealed normal ear canal volume, normal static compliance, and normal middle ear resting pressure (Jerger type A), bilaterally. Impression: Middle ear testing was consistent with a well-ventilated middle ear system, bilaterally. Audiometryrevealed a bilateral sensorineural hearing loss, mild in the low frequencies, sloping to severe in the high frequencies. This hearing loss is expected to interfere with communication, especially in difficult listening situations. Mr. Hodges should continue wearing hearing aids. He has not been especially satisfied with the performance of his hearing aids recently. We discussed the options of him having his current hearing instruments reprogrammed vs replacing them. He will consider those options and let me know if he decides to pursue hearing aid services through our facility. I invited him to schedule an appointment for a hearing aid consultation. I also recommended he contact his insurance carrier to verify whether or not he has benefits for hearing aids and, if so, if he is required to receive services through any particular contracted provider to receive the benefits. Recommendations: Follow up with Dr. Anderson. Further testing and/or re-evaluation at Dr. Anderson' discretion. Consistent use of hearing aids is recommended. Re-evaluate in one year, or sooner if concerns arise, to monitor hearing. Use of hearing protection is recommended when in high levels of noise. The above was explained to and Mrs Hodges and they expressed understanding. Electronically Signed by: Danny Galarza, [facility] [place] 06/22/23 2:04 PM Audiogram: documented in this [id number] History of Present illness Narrative* Ervin Anderson MD - 06/22/2023 1:26 PM EST [facility] [address] [facility] [address] [facility] [id number] Dept: [phone] Ervin Anderson MD Merrick Hodges 77 y.o. male Patient presents with a chief complaint of Hearing Loss (Hearing loss/New Pt) Temp 99.1 F (37.3 C) (Temporal) Ht 5' 10 Wt 77 kg (169 lb 11.2 oz) BMI 24.35 kg/m History of Presenting Illness: The patient/caregiver reports a history of complaint with the following features: Onset: started many years ago, but worse in last year Timing: gradual onset Duration: many years Quality: reduced hearing, difficulty hearing speech Location: both ears Severity: pain none, but makes it hard to participate in contestations, family time Risk factors: family history of hearing loss Alleviating factors: no relief with hearing aids Aggravating factors: background noise Associated factors: posterior neck pain, soft spoken voice Review of systems covering 10 systems is reviewed and pertinent positives and negatives are noted as above. History reviewed. No pertinent past medical history. Current Outpatient Medications: amLODIPine (NORVASC) 5 MG tablet, Take 1 (one) tablet (5 mg total) by mouth 2 (two) times a day ., Disp: , Rfl: aspirin 325 MG tablet, Take by mouth ., Disp: , Rfl: atorvastatin (LIPITOR) 40 MG tablet, Take 1 (one) tablet (40 mg total) by mouth daily ., Disp: , Rfl: clopidogreL (PLAVIX) 75 mg tablet, Take 1 (one) tablet (75 mg total) by mouth daily ., Disp: , Rfl: metoprolol tartrate (LOPRESSOR) 25 MG tablet, Take 1 (one) tablet (25 mg total) by mouth daily ., Disp: , Rfl: multivitamin with iron Tab, Take 1 (one) tablet by mouth ., Disp: , Rfl: rosuvastatin (CRESTOR) 10 MG tablet, Take 1 (one) tablet (10 mg total) by mouth daily ., Disp: , Rfl: No Known Allergies History reviewed. No pertinent surgical history. Social History Socioeconomic History Marital status: Tobacco Use Smoking status: Never Smokeless tobacco: Never Substance and Sexual Activity Alcohol use: Never Drug use: Never History reviewed. No pertinent family history. PHYSICAL EXAM: The patient was examined today 06/23/2023 with findings as follows: CONSTITUTIONAL: General Appearance: well-appearing, nontoxic, alert, no acute distress Communication: understanding at normal conversational tones, soft voicing, speech intelligible HEAD/FACE: Head: atraumatic, normocephalic, no lesions Facial Inspection: no lesions, healthy skin Facial Strength: motor strength normal, symmetric strength, symmetric movement Sinuses: no sinus tenderness Salivary Glands: no enlargements of parotid glands, no tenderness of parotid glands, no masses of parotid glands, clear salivary flow on palpation from Stensen's ducts, no duct stones of Stensen's duct, no enlargement of submandibular glands, no tenderness of submandibular glands, no masses of subma ndibular glands, clear salivary flow from [place]'s ducts, no stones of Dino's ducts Temporomandibular Joint: no crepitus with motion, no tenderness on palpation, no trismus, motion symmetric EYES: Pupils: PERRLA, extra-ocular movements intact, no nystagmus, sclera white, no redness of eyes, no watering of eyes EARS: Bilateral External Ears: no pits, no tags Right External Ear: normally formed, no lesions, no mastoid tenderness Left External Ear: normally formed, no lesions, no mastoid tenderness Right External Auditory Canal: normal, healthy skin, no obstructing cerumen, no discharge Left External Auditory Canal: normal, healthy skin, no obstructing cerumen, no discharge Right Tympanic Membrane: normal landmarks, translucent, mobile to pneumatic otoscopy, no perforation Left Tympanic Membrane: normal landmarks, translucent, mobile to pneumatic otoscopy, no perforation Hearing: reduced to spoken voice NOSE: Nasal Skin: no lesions, no lacerations, no scars Nasal Dorsum: symmetric with no visible or palpable deformities Nasal Tip: normal symmetric nasal tip, normal nasal valves Nasal Mucosa: normal, pink and moist Septum: not markedly deformed, midline, no exposed vessels, no bleeding, no septal granuloma Turbinates: normal size and conformation Nasopharynx: normal ORAL CAVITY/MOUTH: Lips, teeth, gums: normal lips, normal gums, dentition intact, no dental pain on palpation Oral Mucosa: normal, moist, no lesions Palate: normal hard palate, normal soft palate, symmetric palatal elevation Floor of Mouth: normal floor of mouth Tongue: normal tongue, no lesions, no edema, no masses, normal mucosa, mobile Tonsils: normal tonsils, symmetric, no lesions Posterior pharynx: normal NECK: Neck: no masses, trachea midline, normal range of motion, no cysts or pits, no tenderness to palpation Thyroid: normal thyroid, no enlargement, no tenderness, no nodules LYMPH NODES: Cervical: no palpable lymph node enlargement RESPIRATORY: Inspection/Auscultation: good air movement, chest expands symmetrically, normal breath sounds, no wheezing, no stridor CARDIOVASCULAR SYSTEM: Auscultation: regular rate and rhythm, carotid pulse normal, no carotid thrills, no carotid bruits Observation/Palpation of Peripheral Vascular System: no varicosities, no cyanosis, no edema SKIN: General Appearance: no lesions, warm and dry, normal turgor, no bruising NEUROLOGICAL SYSTEM: Orientation: oriented to time, oriented to place, oriented to person Cranial Nerves: Cranial Nerves II-XII intact, normal facial movement PSYCHIATRIC: Mood and affect: normal mood, normal affect Assessment and Plan: He presents for evaluation of hearing loss that has been refractory to hearing aid use. He asks about cochlear implantation. Audiometric testing is performed today and independently reviewed and interpreted. This shows a moderate-severe sloping loss bilaterally with good speech discrimination. Tympanometry shows normal compliance consistent with normally ventilated middle ear spaces. We have discussed that his hearing is better than what would be recommended for cochlear implantation. It is unclear why he has had poor tolerance of amplification in the past from the results today.We have discussed that hearing aids will amplify all sound, not just spoken words, and he was not previously aware of this. We have discussed that FM systems and microphone use may give more directedamplification of speech and can be used along with hearing aids. The causes of hearing loss are discussed in the context of the patient's history and exam findings.We have discussed that exposure to excess environmental noise can result in worsened symptoms and that hearing protection in high noise environments is recommended. We have discussed that hearing aids can be helpful when hearing loss is disruptive and the features of hearing loss that respond well to amplification. An appointment with the appliance tester in the office is offered if the patient wishesto explore options in this regard. The patient and/or caregiver is able to state an understanding of these recommendations and is agreeable to the treatment plan. 1. Sensorineural hearing loss, bilateral 2. Hearing loss, unspecified hearing loss type, unspecified laterality Ambulatory referral to ENT Ambulatory referral to Audiology Return in about 1 year (around 06/22/2024). The patient and/or caregiver is to notify the office if no improvement or worsening of symptoms is noted prior to the scheduled follow-up for sooner evaluation. The patient and/or caregiver is able to state an understanding of these recommendations and is agreeable to the treatment plan. --Ervin Anderson MD on 06/23/2023 at 7:30 AM An electronic signature was used to authenticate this note. * Nikkie Swift MA - 06/22/2023 1:16 PM EST Review of Systems Constitutional: Negative. HENT: Positive for hearing loss and tinnitus. Eyes: Negative. Respiratory: Negative. Cardiovascular: Negative. Gastrointestinal: Negative. Endocrine: Negative. Genitourinary: Negative. Musculoskeletal: Negative. Skin: Negative. Allergic/Immunologic: Negative. Neurological: Negative. Hematological: Bruises/bleeds easily. Psychiatric/Behavioral: Negative. documented in this [id number] Note. MICRO - Microbiology PROCEDURE: Blood Culture (bacterial) [*1] SOURCE: Blood BODY SITE: COLLECTED DATE/TIME: 05/23/2022 10:46 EST RECEIVED DATE/TIME: 05/25/2022 15:27 EST START DATE/TIME: 05/25/2022 15:27 EST FREE TEXT SOURCE: FINAL REPORTS Final Report [] Verified Date/Time/Personnel: 05/30/2022 15:59 EST Blood Culture: No Growth at 5 days. PRELIMINARY REPORTS Preliminary Report [] Verified Date/Time/Personnel: 05/25/2022 15:59 EST Culture has been received in lab and is no growth to date. Routine cultures are held for 5 days. Performing Locations *1: This test was performed at: [address], [facility] ([place])05-29-2022 Note. MICRO - Microbiology PROCEDURE: Blood Culture (bacterial) [*1] SOURCE: Blood BODY SITE: COLLECTED DATE/TIME: 05/23/2022 10:46 EST RECEIVED DATE/TIME: 05/23/2022 23:12 EST START DATE/TIME: 05/23/2022 23:12 EST FREE TEXT SOURCE: FINAL REPORTS Final Report [] Verified Date/Time/Personnel: 05/28/2022 23:59 EST Blood Culture: No Growth at 5 days. PRELIMINARY REPORTS Preliminary Report [] Verified Date/Time/Personnel: 05/23/2022 23:59 EST Culture has been received in lab and is no growth to date. Routine cultures are held for 5 days. Performing Locations *1: This test was performed at: [address], [address] [place] [address])05-26-2022 Note. MICRO - Microbiology PROCEDURE: Urine Culture [*1] SOURCE: Urine, Olivares Catheter BODY SITE: COLLECTED DATE/TIME: 05/23/2022 09:52 EST RECEIVED DATE/TIME: 05/23/2022 18:02 EST START DATE/TIME: 05/23/2022 18:02 EST FREE TEXT SOURCE: FINAL REPORTS Final Report [] Verified Date/Time/Personnel: 05/26/2022 08:21 EST 1,000 cfu/ml Enterobacter aerogenes PRELIMINARY REPORTS Preliminary Report [] Verified Date/Time/Personnel: 05/25/2022 10:43 EST 1,000 cfu/ml Enterobacter aerogenes CINTHIA to follow Preliminary Report [] Verified Date/Time/Personnel: 05/24/2022 08:38 EST Culture results pending. SUSCEPTIBILITY RESULTS Enterobacter aerogenes Antibiotic CINTHIA Dilut CINTHIA Inter Ampicillin >16 Resistant Ampicillin/ >16/8 Resistant Sulbactam Aztreonam <=4 Susceptible Cefazolin >16 Resistant Cefotaxime 8 Susceptible Cefuroxime >16 Resistant Ciprofloxacin <=0.25 Susceptible Ertapenem <=0.5 Susceptible Gentamicin <=2 Susceptible Imipenem <=1 Susceptible Levofloxacin <=0.5 Susceptible Meropenem <=1 Susceptible Minocycline <=4 Susceptible Nitrofurantoin <=32 Susceptible Piperacillin/ 16 Susceptible Tazobactam Trimethoprim/ <=0.5/9.5 Susceptible Sulfa Performing Locations *1: This test was performed at: [address], [address] [place] [address] ([place])05-24-2022 Hospital Discharge instructions Patient Education 05/24/2022 12:23:02 How to Change Your Wound Dressing How to Change Your Wound Dressing A dressing is a material that is placed in and over a wound to help the wound heal. It protects thewound from bacteria, which could cause the wound to become infected. A dressing also protects the wound from further injury and keeps it from becoming too dry or too wet. There are several types of wound dressings. Some examples are: Bandages. Gauze pads. Foam pads. Antimicrobial dressings. These dressings prevent or treat infection and may contain an antiseptic such as silver or iodine. Calcium alginate. These are general guidelines. Follow your health care provider's instructions about what dressing supplies to use and how to change your wound dressing. What are the risks? It is usually safe to use and change a dressing. The most common problem is skin irritation or a rash from the adhesive tape that is used with the dressing. However, more serious problems can develop, such as: Bleeding. Infection. Supplies needed: Set up a clean area for wound care. You will need: A disposable garbage bag that is open and ready to use. Hand optical manufacturing technician. Recommended cleaning solution as told by your health care provider, such as: ?Germ-free (sterile) water. ?Sterile salt water (saline). ?Wound cleanser. New wound dressing material. Make sure to open the dressing package so the dressing remains on the inside of the package. You may also need the following in your clean area: A box of vinyl gloves. Adhesive tape. Adhesive remover. Skin protectant. This may be a wipe, film, or spray. Clean or sterile scissors. A cotton-tipped applicator. How to change your dressing How often you change your dressing will depend on your wound. Change the dressing as often as told by your health care provider. Your health care provider may change your dressing, or a family member, friend, or caregiver may be shown how to change the dressing. It is important to: Wash your hands before and after each dressing change. If soap and water are not available, use hand optical manufacturing technician. Wear gloves and protective clothing while changing a dressing. This may include eye protection. Never let anyone change your dressing if he or she has an infection, a skin condition, or a skin wound or cut of any size. Preparing to change your dressing Take a shower before you do the first dressing change of the day. If your health care provider doesnot want your wound to get wet and your dressing is not waterproof, you may need to apply plastic leak-proof sealing wrap over your dressing for protection. If needed, take pain medicine 30 minutes before the dressing change as told by your health care provider. Removing your old dressing Wash your hands with soap and water. Dry your hands with a clean towel. If soap and water are not available, use hand optical manufacturing technician. Go to the clean area that you have set up with all the supplies you need. If you are using gloves, put the gloves on before you remove the dressing. Gently remove any adhesive or tape by pulling it off in the direction of your hair growth. Only touch the outside edges of the dressing. ?If you are told to use an adhesive remover to loosen the edges of the dressing, make sure to avoidthe wound area. Take off the dressing. If the dressing sticks to your skin, use the recommended cleaning solution to wet the dressing. This helps it come off more easily. Remove any gauze or packing in your wound. Throw the old dressing supplies into the garbage bag. Remove each glove by grabbing the cuff with the opposite hand and turning the glove inside out. Place the gloves in the trash immediately. Wash your hands with soap and water. Dry your hands with a clean towel. If soap and water are not available, use hand optical manufacturing technician. Cleaning your wound Follow instructions from your health care provider about how to clean your wound. This may include using the recommended cleaning solution. ?You may need to use sterile water to clean your wound if you are applying a dressing that has silver in it. Do not use [id number] medicated or antiseptic creams, sprays, liquids, or dressings unless told to do so by your health care provider. Use a clean gauze pad to clean the area thoroughly with the recommended cleaning solution. Throw the gauze pad into the garbage bag. Wash your hands with soap and water. Dry your hands with a clean towel. If soap and water are not available, use hand optical manufacturing technician. Applying the wound dressing If your health care provider recommended a skin protectant, apply it to the skin around the wound. Gently pack, if needed, and cover the wound with the recommended dressing. Make sure to touch only the outside edges of the dressing. Do not touch the inside of the dressing. Secure the dressing so all sides stay in place. You may do this with medical adhesive, roll gauze, or tape. If you use tape, do not wrap the tape all the way around your arm or leg. Take off your gloves. Put them into the garbage bag with the old dressing. Tie the bag shut and throw it away. Wash your hands with soap and water. Dry your hands with a clean towel. If soap and water are not available, use hand optical manufacturing technician. Follow these instructions at home: Wound care Check your wound every day for signs of infection, or as often as told by your health care provider. Check for: ?More redness, swelling, or pain. ?More fluid or blood. ?Warmth. ?Pus or a bad smell. General instructions Take [id number] and prescription medicines only as told by your health care provider. Ask your health care provider if the medicine prescribed to you: ?Requires you to avoid driving or using heavy machinery. ?Can cause constipation. You may need to take actions to prevent or treat constipation, such as: ?Drink enough fluid to keep your urine pale yellow. ?Take erai-opk-bfozxzu or prescription medicines. ?Eat foods that are high in fiber, such as beans, whole grains, and fresh fruits and vegetables. ?Limit foods that are high in fat and processed sugars, such as fried or sweet foods. Keep all follow-up visits as told by your health care provider. This is important. Contact a health care provider if: You have new pain. You develop irritation, a rash, or itching around the wound or dressing. Changing your dressing causes pain or a lot of bleeding. Get help right away if you have: Severe pain. Signs of infection, such as: ?More redness, swelling, or pain. ?More fluid or blood. ?Warmth. ?Pus or a bad smell. ?Red streaks leading from the wound. ?A fever. Summary A dressing is a material that is placed in and over a wound. A dressing helps your wound heal. Wash your hands before and after each dressing change. If soap and water are not available, use hand optical manufacturing technician. Follow your health care provider's instructions about what dressing supplies to use and how to change your wound dressing. Check your wound every day for signs of infection, or as often as told by your health care provider. Get help right away if you have severe pain or signs of infection. This information is not intended to replace advice given to you by your health care provider. Make sure you discuss any questions you have with your health care provider. Document Released: 07/08/2005 Document Revised: 01/26/2019 Document Reviewed: 01/26/2019 [employer] Patient Education 2020 [employer]. 05/24/2022 12:22:15 Spinal Fusion, Adult Spinal Fusion, Adult Spinal fusion is a procedure to make two or more of the bones in the spinal column (vertebrae) growtogether (fuse). This procedure stops the vertebrae from moving and rubbing against each other. Thegoal of this procedure is to relieve pain and prevent deformity and weakening of the spine. During a spinal fusion procedure, bone material (graft) is put in between the two vertebrae to helpthem fuse. Hardware such as rods, screws, metal plates, or cages can be inserted to stabilize the vertebrae while they heal. This procedure is used to treat conditions, including: Spinal injury. Herniated disk. Abnormal curvatures of the spine, such as scoliosis or kyphosis. Infections or tumors in the spine. Spondylolisthesis. This is when one vertebra slips on top of another. Spinal stenosis. This is a narrowing of the spine. Tell a health care provider about: Any allergies you have. All medicines you are taking, including vitamins, herbs, eye drops, creams, and nfkc-roe-yupdsfw medicines. Any problems you or family members have had with anesthetic medicines. Any blood disorders you have. Any surgeries you have had. Any medical conditions you have. Whether you are or may be . What are the risks? Generally, this is a safe procedure. However, problems may occur, including: Infection. Bleeding. Allergic reactions to medicines or dyes. Damage to other structures or organs, such as nerves near the spine. Spinal fluid leakage. Blood clots. Trouble controlling urination or bowel movements. Pseudoarthrosis. This is when the vertebrae do not fuse together completely. What happens before the procedure? Staying hydrated Follow instructions from your health care provider about hydration, which may include: Up to 2 hours before the procedure you may continue to drink clear liquids, such as water, clear fruit juice, black coffee, and plain tea. Eating and drinking restrictions Follow instructions from your health care provider about eating and drinking, which may include: 8 hours before the procedure stop eating heavy meals or foods such as meat, fried foods, or fatty foods. 6 hours before the procedure stop eating light meals or foods, such as toast or cereal. 6 hours before the procedure stop drinking milk or drinks that contain milk. 2 hours before the procedure stop drinking clear liquids. Medicines Ask your health care provider about: ?Changing or stopping your regular medicines. This is especially important if you are taking diabetes medicines or blood thinners. ?Taking medicines such as aspirin and ibuprofen. These medicines can thin your blood. Do not take these medicines before your procedure if your health care provider instructs you not to. You may be given antibiotic medicine to help prevent infection. General instructions Ask your health care provider how your surgical site will be marked or identified. You will have blood and urine samples taken. You may have imaging tests, such as: ?X-rays. ?CT scan. ?MRI. Plan to have someone take you home from the hospital or clinic. If you will be going home right after the procedure, plan to have someone with you for 24 hours. Do not use any tobacco products, including cigarettes, chewing tobacco, or electronic cigarettes. If you need help quitting, ask your health care provider. Tobacco and nicotine products can delay healing after your surgery. What happens during the procedure? To reduce your risk of infection: ?Your health care team will wash or sanitize their hands. ?Your skin will be washed with soap. ?Hair may be removed from the surgical area. An IV tube will be inserted into one of your veins. You will be given one or more of the following: ?A medicine to help you relax (sedative). ?A medicine to make you fall asleep (general anesthetic). If bone from another part of your body (autogenous bone) is being used to fill the space between your vertebrae: ?An incision will be made over the site of the bone graft. Often, the bone is taken from the hip (pelvic) bone. ?A small part of the bone will be removed. An incision will be made over the vertebrae that will be fused. This incision may be on your back, abdomen, or side. The muscles will be moved aside so the surgeon can see the vertebrae. If you are having this procedure to treat a herniated disk, part of the disk will be removed. The space between the vertebrae will be filled with autogenous bone, bone from a bone donor (allograft bone), or artificial bone material. Screws and rods or metal plates may be used to stabilize the vertebrae while they fuse. The muscles will be moved back into place. A small tube (drain) may be placed near one of the incisions to help drain extra fluid from your surgical site. Your incision(s) will be closed. A bandage (dressing) may be used to cover your incision(s). The procedure may vary among health care providers and hospitals. What happens after the procedure? You will be given medicine as needed for pain. You will continue to receive fluids and medicines through an IV tube. Your blood pressure, heart rate, breathing rate, and blood oxygen level will be monitored until themedicines you were given have worn off. You may be given a brace to wear while you heal. You may have to wear compression stockings. These stockings help to prevent blood clots and reduce swelling in your legs. You will be taught how to move correctly and how to stand and walk. While in bed, you will be instructed to turn frequently without twisting the back (log rolling technique). Do not drive for 24 hours if you received a sedative. Summary Spinal fusion is a procedure to make two or more of the bones in the spinal column (vertebrae) growtogether (fuse). Follow instructions from your healthcare provider about what to eat, what to drink, and what medicines to take. After surgery, you will be instructed to turn frequently without twisting the back (log rolling technique) while in bed. You will also be taught how to move correctly and how to stand and walk. This information is not intended to replace advice given to you by your health care provider. Make sure you discuss any questions you have with your health care provider. Document Released: 02/27/2004 Document Revised: 05/13/2018 Document Reviewed: 05/18/2017 [employer] Patient Education 2020 [employer] Follow Up Care 04/22/2022 10:34:47 With:BISI MARTINEZ DO Address: [address] [place] [address] [address] [place], [place] [id number]- When:5 to 7 days With:CHAVA LEA MD Address: [address] [place] [address] [address] [place] [address]- When:5 to 7 days Comments:call office upon discharge to set up follow up appt to have olivares removed. With:ROBBY BOSWELL DO, Orthopedic Address: [address] [place] [address], [address] [facility] [place] [address]- [phone] When:06/09/2022 13:30:00 Comments:This is your post-op appointment. Follow-up as scheduled. [facility] 12-11-2022 Note Discharge Instructions Thank you for allowing [facility] to assist you with your healthcare needs. The following is importantdischarge information regarding your hospital visit. Your Care Team BISI MARTINEZ DO Your Diagnosis Abdominal pain Muscle spasm Diabetes mellitus HTN (hypertension) Sleep apnea CAD (coronary artery disease) Lumbar spondylosis UTI (urinary tract infection) What to do next Instructions From Your Doctor 1. During your procedure, you received sedation through your IV. Please follow these instructions for the next 24 hours: Do not drive a motor vehicle, do not drink any alcoholic beverages, do not sign any legal documents or make personal or business decisions. A responsible adult should stay with you at least 6 hours after the procedure. 2. Keep your surgical site/incision clean and the dressing dry and intact. Do not get the dressing wet. No showering or bathing during the stimulator trial. If you have a permanent spinal cord stimulator, you must cover your incisions with a waterproof dressing to shower. Do not use bathtubs, hot tubs, swimming pools etc. You may use an ice pack at the surgical site to reduce swelling or discomfort. 3. Monitor the incision for any signs or symptoms of infection. Watch for redness, excessive swelling or drainage, or continued pain at the incision site after 3 days. Contact your physician immediately for a fever, chills, or a temperature of 101.5 Fahrenheit or greater. #4 take your medication exactly as prescribed by your physician. Do not attempt to wean yourself off any of your medication even though your pain is improving. This process needs to be carefully monitored by your doctor. Take any antibiotics prescribed exactly as directed until they are gone. 5. Avoid stretching, bending, pulling, twisting or any sudden movements. Do not bend or twist at the waist. Do not raise your arms above your head. Do not lie on your stomach. 6. no lifting greater than 5 pounds. 7. Do not operate a motor vehicle, equipment or power tools while your stimulator is on. 8. Do not have any manipulation done by a chiropractor or any other physician without first consulting with the physician who placed your spinal cord stimulator. 9. Please call if you have any questions, problems, or concerns Follow Up Appointments Follow Up with ROBBY BOSWELL DO, Orthopedic When 06/09/2022 01:30 PM EST Why: This is your post-op appointment. Follow-up as scheduled. Where: [address] [facility] [address] [facility] [place] [address] [phone] Follow Up with BISI MARTINEZ DO When Within 5 to 7 days Where: [address] [facility] [address] [place], [place] [id number]- Follow Up with CHAVA LEA MD When Within 5 to 7 days Why: call office upon discharge to set up follow up appt to have olivares removed. Where: [address] [facility] [address] [place], [place] [id number]- The Following Activity and Diet Have Been Ordered for You No qualifying data available. No qualifying data available. The Following Equipment Has Been Ordered for You No qualifying data available. The Following Treatments Have Been Ordered for You Discharge Labs No qualifying data available. Discharge Radiology No qualifying data available. Other Therapies No qualifying data available. Post Acute Orders No qualifying data available. Someone Will Contact You Regarding These Home Health Referrals No home referrals have been ordered for you. No one will call you. Allergies NKA Medications Please ask your primary doctor or pharmacist before taking any other medication not listed, including over the counter drugs, herbal medications, vitamins and or supplements as they may interact withyour home medications. What How Much When Why Instructions Last Dose New cefTRIAXone (Rocephin) 1 gram(s) IV Piggyback Once a day New cefuroxime (cefuroxime 500 mg oral tablet) 1 tab(s) by mouth Two (2) times a day Duration: 10 Days Pickup at [facility]/pharmacy #[id number] New tamsulosin (Flomax 0.4 mg oral capsule) 1 cap by mouth Once a day Pickup at [facility]/pharmacy #[id number] New tamsulosin (Flomax 0.4 mg oral capsule) 1 cap by mouth Once a day after a meal Changed gabapentin (gabapentin 300 mg oral capsule) 1 cap by mouth Two (2) times a day Changed rosuvastatin (rosuvastatin 10 mg oral capsule) 1 cap by mouth Daily at bedtime Unchanged acetaminophen-hydrocodone ([place] 325- 5 mg oral tablet) 1 tab(s) by mouth Every 6 hours as needed for for pain Lumbar spondylosis Duration: 7 Days Pickup at [facility]/pharmacy #[id number] Unchanged amLODIPine (amLODIPine 5 mg oral tablet) 1 tab(s) by mouth Two (2) times a day Unchanged fosinopril (fosinopril 20 mg oral tablet) 1 tab(s) by mouth Once a day Unchanged metFORMIN (metFORMIN 500 mg oral tablet (IR)) 1 tab(s) by mouth Once a day Unchanged metoprolol (Metoprolol Tartrate 50 mg oral tablet) 1 tab(s) by mouth Two (2) times a day Unchanged multivitamin (Multivitamin) 1 tab(s) by mouth Every day Pharmacy Information [facility]/pharmacy #[id number]: [address] [place], [place] [phone] What How Much When Comments Stop Taking aspirin (aspirin 81 mg oral delayed release tablet) 1 tab(s) by mouth Every day Stop Taking clopidogrel (clopidogrel 75 mg oral tablet) 1 tab(s) by mouth Every day Please take this list to your next doctor s visit. Bring all medications you take, including over the counter medications, herbals and other supplements with you to your doctor s visit. Patients and families are reminded to discard old lists and to update any records with all medication providers or retail pharmacies. Medication Leaflets acetaminophen and hydrocodone (a SEET a MIN [place] fen and waldo PIERCE done) Hycet, Lorcet, [place], Verdrocet, Vicodin, Xodol, Zamicet What is the most important information I should know about acetaminophen and hydrocodone? MISUSE OF OPIOID MEDICINE CAN CAUSE ADDICTION, OVERDOSE, OR . Keep the medication in a place where others cannot get to it. Taking opioid medicine during may cause life-threatening withdrawal symptoms in the . Fatal side effects can occur if you use opioid medicine with alcohol, or with other drugs that cause drowsiness or slow your breathing. Stop taking this medicine and call your doctor right away if you have skin redness or a rash that spreads and causes blistering and peeling. What is acetaminophen and hydrocodone? Acetaminophen and hydrocodone is a combination medicine used to relieve moderate to severe pain. Acetaminophen and hydrocodone contains an opioid medicine, and may be habit-forming. Acetaminophen and hydrocodone may also be used for purposes not listed in this medication guide. What should I discuss with my healthcare provider before taking acetaminophen and hydrocodone? You should not use this medicine if you are allergic to acetaminophen or hydrocodone, or if you have: severe asthma or breathing problems; or a blockage in your stomach or intestines. Tell your doctor if you have ever had: breathing problems, sleep apnea (breathing stops during sleep); liver disease; a drug or alcohol addiction; kidney disease; a head injury or seizures; urination problems; or problems with your thyroid, pancreas, or gallbladder. If you use opioid medicine while you are , your baby could become dependent on the drug. This can cause life-threatening withdrawal symptoms in the baby after it is born. Babies born dependent on opioids may need medical treatment for several weeks. Ask a doctor before using opioid medicine if you are . Tell your doctor if you notice severe drowsiness or slow breathing in the nursing baby. How should I take acetaminophen and hydrocodone? Follow all directions on your prescription label. Never take this medicine in larger amounts, or for longer than prescribed. An overdose can damage your liver or cause . Tell your doctor if you feel an increased urge to use more of this medicine. Never share this medicine with another person, especially someone with a history of drug abuse or addiction. MISUSE CAN CAUSE ADDICTION, OVERDOSE, OR . Keep the medicine in a place where others cannot get to it. Selling or giving away this medicine is against the law. Measure liquid medicine carefully. Use the dosing syringe provided, or use a medicine dose-measuring device (not a kitchen spoon). If you need surgery or medical tests, tell the doctor ahead of time that you are using this medicine. You should not stop using this medicine suddenly. Follow your doctor's instructions about tapering your dose. Store at room temperature away from moisture and heat. Keep track of your medicine. You should be aware if anyone is using it improperly or without a prescription. Do not keep leftover opioid medication. Just one dose can cause in someone using this medicine accidentally or improperly. Ask your pharmacist where to locate a drug take-back disposal program.If there is no take-back program, flush the unused medicine down the toilet. What happens if I miss a dose? Since this medicine is used for pain, you are not likely to miss a dose. Skip any missed dose if itis almost time for your next dose. Do not use two doses at one time. What happens if I overdose? Seek emergency medical attention or call the Poison Help line at . An overdose of this medicine can be fatal, especially in a child or other person using the medicine without a prescription. Overdose symptoms may include nausea, vomiting, sweating, severe drowsiness, pinpoint pupils, slow breathing, or no breathing. Your doctor may recommend you get naloxone (a medicine to reverse an opioid overdose) and keep it with you at all times. A person caring for you can give the naloxone if you stop breathing or don't wake up. Your caregiver must still get emergency medical help and may need to perform CPR (cardiopulmonary resuscitation) on you while waiting for help to arrive. Anyone can buy naloxone from a pharmacy or local health department. Make sure any person caring foryou knows where you keep naloxone and how to use it. What should I avoid while taking acetaminophen and hydrocodone? Avoid driving or operating machinery until you know how this medicine will affect you. Dizziness ordrowsiness can cause falls, accidents, or severe injuries. Do not drink alcohol. Dangerous side effects or could occur. Ask a doctor or pharmacist before using any other medicine that may contain acetaminophen (sometimes abbreviated as APAP). Taking certain medications together can lead to a fatal overdose. What are the possible side effects of acetaminophen and hydrocodone? Get emergency medical help if you have signs of an allergic reaction: hives; difficulty breathing; swelling of your face, lips, tongue, or throat. Opioid medicine can slow or stop your breathing, and may occur. A person caring for you should give naloxone and/or seek emergency medical attention if you have slow breathing with long pauses,blue colored lips, or if you are hard to wake up. In rare cases, acetaminophen may cause a severe skin reaction that can be fatal. This could occur even if you have taken acetaminophen in the past and had no reaction. Stop taking this medicine and call your doctor right away if you have skin redness or a rash that spreads and causes blistering andpeeling. Call your doctor at once if you have: noisy breathing, sighing, shallow breathing, breathing that stops; a light-headed feeling, like you might pass out; liver problems--nausea, upper stomach pain, tiredness, loss of appetite, dark urine, scarlett-colored stools, jaundice (yellowing of the skin or eyes); low cortisol levels-- nausea, vomiting, loss of appetite, dizziness, worsening tiredness or weakness; o high levels of serotonin in the body--agitation, hallucinations, fever, sweating, shivering, fast heart rate, muscle stiffness, twitching, loss of coordination, nausea, vomiting, diarrhea. Serious breathing problems may be more likely in older adults and in those who are debilitated or have wasting syndrome or chronic breathing disorders. Common side effects include: dizziness, drowsiness, feeling tired; nausea, vomiting, stomach pain; constipation; or headache. This is not a complete list of side effects and others may occur. Call your doctor for medical advice about side effects. You may report side effects to FDA at 4-099-VWA-0958. What other drugs will affect acetaminophen and hydrocodone? You may have breathing problems or withdrawal symptoms if you start or stop taking certain other medicines. Tell your doctor if you also use an antibiotic, antifungal medication, heart or blood pressure medication, seizure medication, or medicine to treat HIV or hepatitis C. Opioid medication can interact with many other drugs and cause dangerous side effects or . Be sure your doctor knows if you also use: cold or allergy medicines, bronchodilator asthma/COPD medication, or a diuretic ('water pill'); medicines for motion sickness, irritable bowel syndrome, or overactive bladder; other opioids--opioid pain medicine or prescription cough medicine; a sedative like Valium--diazepam, alprazolam, lorazepam, Xanax, Klonopin, Versed, and others; drugs that make you sleepy or slow your breathing--a sleeping pill, muscle relaxer, medicine to treat mood disorders or mental illness; drugs that affect serotonin levels in your body--a stimulant, or medicine for depression, Parkinson's disease, migraine headaches, serious infections, or nausea and vomiting. This list is not complete. Other drugs may affect acetaminophen and hydrocodone, including prescription and wfoz-iok-ncpaymz medicines, vitamins, and herbal products. Not all possible interactions are listed here. Where can I get more information? Your doctor or pharmacist can provide more information about acetaminophen and hydrocodone. Remember, keep this and all other medicines out of the reach of children, never share your medicines with others, and use this medication only for the indication prescribed. Every effort has been made to ensure that the information provided by [facility]. ('[employer]') is accurate, up-to-date, and complete, but no guarantee is made to that effect. Drug information contained herein may be time sensitive. [employer] information has been compiled for use by healthcare practitioners and consumers in the [place] and therefore [employer] does not warrant that uses outside of the [place] are appropriate, unless specifically indicated otherwise. [employer] drug information does not endorse drugs, diagnose patients or recommend therapy. [employer] drug information isan informational resource designed to assist licensed healthcare practitioners in caring for their p atients and/or to serve consumers viewing this service as a supplement to, and not a substitute for, the expertise, skill, knowledge and judgment of healthcare practitioners. The absence of a warningfor a given drug or drug combination in no way should be construed to indicate that the drug or drug combination is safe, effective or appropriate for any given patient. [employer] does not assume any responsibility for any aspect of healthcare administered with the aid of information [employer] provides. The information contained herein is not intended to cover all possible uses, directions, precautions, warnings, drug interactions, allergic reactions, or adverse effects. If you have questions about the drugs you are taking, check with your doctor, nurse or pharmacist. Copyright 4942-3638 [facility]. Version: 16.03. Revision Date: 07/16/2020. tamsulosin (bradford janie JIMBO sin) Flomax What is the most important information I should know about tamsulosin? Follow all directions on your medicine label and package. Tell each of your healthcare providers about all your medical conditions, allergies, and all medicines you use. What is tamsulosin? Tamsulosin is an alpha-jose eduardo that is used to improve urination in men with benign prostatic hyperplasia (enlarged prostate). Tamsulosin is not approved for use in women or children. Tamsulosin may also be used for purposes not listed in this medication guide. What should I discuss with my healthcare provider before taking tamsulosin? You should not use tamsulosin if you are allergic to it. Tell your doctor if you have ever had: liver or kidney disease; prostate cancer; low blood pressure; or an allergy to sulfa drugs. Tamsulosin can affect your pupils. If you have cataract surgery, tell your surgeon ahead of time that you use this medicine. Tamsulosin is not for use in women, and the effects of this medicine during or in women are unknown. How should I take tamsulosin? Your doctor may test your prostate specific antigen (PSA) to check for prostate cancer before you take tamsulosin. Follow all directions on your prescription label and read all medication guides or instruction sheets. Your doctor may occasionally change your dose. Use the medicine exactly as directed. Tamsulosin is usually taken once a day, approximately 30 minutes after the same meal each day. Swallow the capsule whole and do not crush, chew, break, or open it. Your blood pressure will need to be checked often. Some things can cause your blood pressure to get too low. This includes vomiting, diarrhea, or heavy sweating. Call your doctor if you are sick with vomiting or diarrhea. Store at room temperature away from moisture and heat. If you stop taking tamsulosin for any reason, call your doctor before you start taking it again. You may need a dose adjustment. What happens if I miss a dose? Take the medicine as soon as you can, but skip the missed dose if it is almost time for your next dose. Do not take two doses at one time. If you miss your doses for several days in a row, talk with your doctor before restarting the medication. What happens if I overdose? Seek emergency medical attention or call the Poison Help line at . What should I avoid while taking tamsulosin? Avoid driving or hazardous activity until you know how this medicine will affect you. Your reactions could be impaired. Avoid getting up too fast from a sitting or lying position, or you may feel dizzy. What are the possible side effects of tamsulosin? Get emergency medical help if you have signs of an allergic reaction (hives, difficult breathing, swelling in your face or throat) or a severe skin reaction (fever, sore throat, burning eyes, skin pain, red or purple skin rash with blistering and peeling). Stop using tamsulosin and call your doctor at once if you have: a light-headed feeling, like you might pass out; or penis erection that is painful or lasts 4 hours or longer. Tamsulosin lowers blood pressure and may cause dizziness or fainting, especially when you first start taking it. You may feel very dizzy when you first wake up. Avoid getting up too fast from a sitting or lying position, or you may feel dizzy. Common side effects may include: abnormal ejaculation, decreased amount of semen; dizziness, drowsiness, weakness; runny nose, cough; back pain, chest pain; nausea, diarrhea; tooth problems; blurred vision; sleep problems (insomnia); or decreased interest in sex. This is not a complete list of side effects and others may occur. Call your doctor for medical advice about side effects. You may report side effects to FDA at 3-561-CUX-7368. What other drugs will affect tamsulosin? Tell your doctor about all your current medicines. Many drugs can increase your risk of very low blood pressure while taking tamsulosin, especially: medicines similar to tamsulosin (alfuzosin, doxazosin, prazosin, silodosin, or terazosin); heart or blood pressure medication; or sildenafil (Viagra) and other erectile dysfunction medicines. This list is not complete and many other drugs may affect tamsulosin. This includes prescription and fenc-oag-smzawgn medicines, vitamins, and herbal products. Not all possible drug interactions are listed here. Where can I get more information? Your pharmacist can provide more information about tamsulosin. Remember, keep this and all other medicines out of the reach of children, never share your medicines with others, and use this medication only for the indication prescribed. Every effort has been made to ensure that the information provided by [facility]. ('[employer] is accurate, up-to-date, and complete, but no guarantee is made to that effect. Drug information contained herein may be time sensitive. [employer] information has been compiled for use by healthcare practitioners and consumers in the [place] and therefore [employer] does not warrant that uses outside of the [place] are appropriate, unless specifically indicated otherwise. [facility] drug information does not endorse drugs, diagnose patients or recommend therapy. [employer] drug information isan informational resource designed to assist licensed healthcare practitioners in caring for their p atients and/or to serve consumers viewing this service as a supplement to, and not a substitute for, the expertise, skill, knowledge and judgment of healthcare practitioners. The absence of a warningfor a given drug or drug combination in no way should be construed to indicate that the drug or drug combination is safe, effective or appropriate for any given patient. [facility] does not assume any responsibility for any aspect of healthcare administered with the aid of information [facility] provides. The information contained herein is not intended to cover all possible uses, directions, precautions, warnings, drug interactions, allergic reactions, or adverse effects. If you have questions about the drugs you are taking, check with your doctor, nurse or pharmacist. Copyright 0097-1503 [facility]. Version: 9.02. Revision Date: 10/27/2018. cefuroxime (oral/injection) (SEF ue SHERI eem) What is the most important information I should know about cefuroxime? Cefuroxime can cause serious or life-threatening allergic reactions. Tell your doctor if you have an allergy to an antibiotic, especially penicillin. What is cefuroxime? Cefuroxime is a cephalosporin (SEF a low spor in) antibiotic that is used to treat bacterial infections of the ear, nose, throat, lungs, skin, bones, joints, bladder, or kidneys. Cefuroxime is also used to treat gonorrhea, sepsis, or early Lyme disease. Cefuroxime injection is sometimes given before and after a surgery to prevent infection. Cefuroxime may also be used for purposes not listed in this medication guide. What should I discuss with my healthcare provider before using cefuroxime? Cefuroxime can cause serious or life-threatening allergic reactions. You should not use this medicine if you have ever had a severe allergic reaction to an antibiotic, such as: cefuroxime, cefadroxil, cefdinir, cefoxitin, cefprozil, ceftriaxone, cephalexin, Keflex, Omnicef, and others; avibactam, relebactam, sulbactam, tazobactam, vaborbactam, and others; or amoxicillin (Amoxil, Augmentin, Moxatag), ampicillin, dicloxacillin, oxacillin, penicillin, and others. Tell your doctor if you have ever had: an stomach or intestinal disorder such as colitis; kidney disease; liver disease; or heart problems. Cefuroxime oral suspension may contain phenylalanine and could be harmful if you have phenylketonuria (PKU). Tell your doctor if you are or . If you are being treated for gonorrhea: Having gonorrhea during may increase the risk of complications including premature , low weight, or gonorrhea developing the . The benefit of treating this condition may outweigh any risks to the baby. Not approved for use by anyone younger than 3 months old. How should I use cefuroxime? Follow all directions on your prescription label and read all medication guides or instruction sheets. Use the medicine exactly as directed. Cefuroxime oral is taken by mouth. Swallow the tablet whole and do not crush, chew, or break it. Take with or without food. Shake the oral suspension (liquid). Measure a dose with the supplied measuring device (not a kitchen spoon). Take with food. Tell your doctor if a child taking cefuroxime has trouble swallowing the medicine. Cefuroxime oral may be given as a single dose to treat gonorrhea. For most other infections, cefuroxime oral is usually given for 7 to 10 days, or for 20 days to treat early Lyme disease. Your dose needs may change if you switch from tablets to oral suspension. Follow your doctor's dosing instructions very carefully. Cefuroxime injection is given into a muscle or a vein, usually for 5 to 10 days. Ask your doctor or pharmacist if you don't understand how to use an injection. You may need to mix cefuroxime with a liquid (diluent) before using it. Use only the diluent your doctor has recommended. Prepare an injection only when you are ready to give it. Call your pharmacist if the medicine has changed colors or has particles in it. Do not reuse a needle or syringe. Place them in a puncture-proof 'sharps' container and dispose of it following state or local laws. Keep out of the reach of children and pets. Keep using this medicine even if your symptoms quickly improve. Skipping doses could make your infection resistant to medication. Cefuroxime will not treat a viral infection (flu or a common cold). Cefuroxime can affect the results of certain medical tests. Tell any doctor who treats you that youare using cefuroxime. Store the tablets at room temperature away from moisture and heat. Keep the bottle tightly closed when not in use. Store the oral suspension in the refrigerator, do not freeze. Throw away any unused medicine after 10 days. After mixing cefuroxime for injection, you will need to use it within a certain number of hours or days. This will depend on the diluent and how you store the mixture (at room temperature or in a refrigerator). Be sure you understand how to properly mix and store the medicine if using injections athome. If the cefuroxime injection is frozen when you receive it, thaw the medicine at room temperature (do not use heat). After thawing, you may store the cefuroxime injection at room temperature for up to 24 hours, or khris refrigerator for up to 7 days. Do not refreeze the medicine once it has been thawed. What happens if I miss a dose? Take the medicine as soon as you can, but skip the missed dose if it is almost time for your next dose. Do not use take doses at one time. Call your doctor for instructions if you miss a cefuroxime injection. What happens if I overdose? Seek emergency medical attention or call the Poison Help line at . Overdose symptoms may include seizure. What should I avoid while using cefuroxime? Antibiotic medicines can cause diarrhea. Tell your doctor if you have diarrhea that is watery or bloody. What are the possible side effects of cefuroxime? Get emergency medical help if you have signs of an allergic reaction (hives, difficult breathing, swelling in your face or throat) or a severe skin reaction (fever, sore throat, burning in your eyes,skin pain, red or purple skin rash that spreads and causes blistering and peeling). Call your doctor at once if you have: severe stomach pain, diarrhea that is watery or bloody (even if it occurs months after your last dose); jaundice (yellowing of the skin or eyes); fever, chills; a seizure; or chest pain. Common side effects may include: nausea, vomiting, diarrhea; flu-like symptoms; vaginal itching or discharge; or diaper rash (in people using the oral suspension). This is not a complete list of side effects and others may occur. Call your doctor for medical advice about side effects. You may report side effects to FDA at 0-213-FMU-8719. What other drugs will affect cefuroxime? Tell your doctor about all your other medicines, especially: any other IV antibiotic; probenecid; a diuretic or 'water pill'; a blood thinner--warfarin, Coumadin, Jantoven; or a stomach acid document clerk--esomeprazole, famotidine, Nexium, Pepcid, Prevacid, Prilosec, Tagamet, Zantac, and others. This list is not complete. Other drugs may affect cefuroxime, including prescription and conp-oww-sptvrmv medicines, vitamins, and herbal products. Not all possible drug interactions are listed here. Where can I get more information? Your pharmacist can provide more information about cefuroxime. Remember, keep this and all other medicines out of the reach of children, never share your medicines with others, and use this medication only for the indication prescribed. Every effort has been made to ensure that the information provided by [facility]. ('[employer]') is accurate, up-to-date, and complete, but no guarantee is made to that effect. Drug information contained herein may be time sensitive. [employer] information has been compiled for use by healthcare practitioners and consumers in the [place] and therefore [employer] does not warrant that uses outside of the [place] are appropriate, unless specifically indicated otherwise. [facility] drug information does not endorse drugs, diagnose patients or recommend therapy. [facility] drug information isan informational resource designed to assist licensed healthcare practitioners in caring for their p atients and/or to serve consumers viewing this service as a supplement to, and not a substitute for, the expertise, skill, knowledge and judgment of healthcare practitioners. The absence of a warningfor a given drug or drug combination in no way should be construed to indicate that the drug or drug combination is safe, effective or appropriate for any given patient. [employer] does not assume any responsibility for any aspect of healthcare administered with the aid of information [employer] provides. The information contained herein is not intended to cover all possible uses, directions, precautions, warnings, drug interactions, allergic reactions, or adverse effects. If you have questions about the drugs you are taking, check with your doctor, nurse or pharmacist. Copyright 5556-7834 [facility]. Version: 10.. Revision Date: 04/15/2021. Education Materials How to Change Your Wound Dressing A dressing is a material that is placed in and over a wound to help the wound heal. It protects thewound from bacteria, which could cause the wound to become infected. A dressing also protects the wound from further injury and keeps it from becoming too dry or too wet. There are several types of wound dressings. Some examples are: Bandages. Gauze pads. Foam pads. Antimicrobial dressings. These dressings prevent or treat infection and may contain an antiseptic such as silver or iodine. Calcium alginate. These are general guidelines. Follow your health care provider's instructions about what dressing supplies to use and how to change your wound dressing. What are the risks? It is usually safe to use and change a dressing. The most common problem is skin irritation or a rash from the adhesive tape that is used with the dressing. However, more serious problems can develop, such as: Bleeding. Infection. Supplies needed: Set up a clean area for wound care. You will need: A disposable garbage bag that is open and ready to use. Hand optical manufacturing technician. Recommended cleaning solution as told by your health care provider, such as: ? Germ-free (sterile) water. ? Sterile salt water (saline). ? Wound cleanser. New wound dressing material. Make sure to open the dressing package so the dressing remains on the inside of the package. You may also need the following in your clean area: A box of vinyl gloves. Adhesive tape. Adhesive remover. Skin protectant. This may be a wipe, film, or spray. Clean or sterile scissors. A cotton-tipped applicator. How to change your dressing How often you change your dressing will depend on your wound. Change the dressing as often as told by your health care provider. Your health care provider may change your dressing, or a family member, friend, or caregiver may be shown how to change the dressing. It is important to: Wash your hands before and after each dressing change. If soap and water are not available, use hand optical manufacturing technician. Wear gloves and protective clothing while changing a dressing. This may include eye protection. Never let anyone change your dressing if he or she has an infection, a skin condition, or a skin wound or cut of any size. Preparing to change your dressing Take a shower before you do the first dressing change of the day. If your health care provider doesnot want your wound to get wet and your dressing is not waterproof, you may need to apply plastic leak-proof sealing wrap over your dressing for protection. If needed, take pain medicine 30 minutes before the dressing change as told by your health care provider. Removing your old dressing Wash your hands with soap and water. Dry your hands with a clean towel. If soap and water are not available, use hand optical manufacturing technician. Go to the clean area that you have set up with all the supplies you need. If you are using gloves, put the gloves on before you remove the dressing. Gently remove any adhesive or tape by pulling it off in the direction of your hair growth. Only touch the outside edges of the dressing. ? If you are told to use an adhesive remover to loosen the edges of the dressing, make sure to avoid the wound area. Take off the dressing. If the dressing sticks to your skin, use the recommended cleaning solution to wet the dressing. This helps it come off more easily. Remove any gauze or packing in your wound. Throw the old dressing supplies into the garbage bag. Remove each glove by grabbing the cuff with the opposite hand and turning the glove inside out. Place the gloves in the trash immediately. Wash your hands with soap and water. Dry your hands with a clean towel. If soap and water are not available, use hand optical manufacturing technician. Cleaning your wound Follow instructions from your health care provider about how to clean your wound. This may include using the recommended cleaning solution. ? You may need to use sterile water to clean your wound if you are applying a dressing that has silver in it. Do not use rddq-kkw-zaocsls medicated or antiseptic creams, sprays, liquids, or dressings unless told to do so by your health care provider. Use a clean gauze pad to clean the area thoroughly with the recommended cleaning solution. Throw the gauze pad into the garbage bag. Wash your hands with soap and water. Dry your hands with a clean towel. If soap and water are not available, use hand optical manufacturing technician. Applying the wound dressing If your health care provider recommended a skin protectant, apply it to the skin around the wound. Gently pack, if needed, and cover the wound with the recommended dressing. Make sure to touch only the outside edges of the dressing. Do not touch the inside of the dressing. Secure the dressing so all sides stay in place. You may do this with medical adhesive, roll gauze, or tape. If you use tape, do not wrap the tape all the way around your arm or leg. Take off your gloves. Put them into the garbage bag with the old dressing. Tie the bag shut and throw it away. Wash your hands with soap and water. Dry your hands with a clean towel. If soap and water are not available, use hand optical manufacturing technician. Follow these instructions at home: Wound care Check your wound every day for signs of infection, or as often as told by your health care provider. Check for: ? More redness, swelling, or pain. ? More fluid or blood. ? Warmth. ? Pus or a bad smell. General instructions Take nbet-ecf-qfzrxmk and prescription medicines only as told by your health care provider. Ask your health care provider if the medicine prescribed to you: ? Requires you to avoid driving or using heavy machinery. ? Can cause constipation. You may need to take actions to prevent or treat constipation, such as: ? Drink enough fluid to keep your urine pale yellow. ? Take xafg-nsk-zrqrutz or prescription medicines. ? Eat foods that are high in fiber, such as beans, whole grains, and fresh fruits and vegetables. ? Limit foods that are high in fat and processed sugars, such as fried or sweet foods. Keep all follow-up visits as told by your health care provider. This is important. Contact a health care provider if: You have new pain. You develop irritation, a rash, or itching around the wound or dressing. Changing your dressing causes pain or a lot of bleeding. Get help right away if you have: Severe pain. Signs of infection, such as: ? More redness, swelling, or pain. ? More fluid or blood. ? Warmth. ? Pus or a bad smell. ? Red streaks leading from the wound. ? A fever. Summary A dressing is a material that is placed in and over a wound. A dressing helps your wound heal. Wash your hands before and after each dressing change. If soap and water are not available, use hand optical manufacturing technician. Follow your health care provider's instructions about what dressing supplies to use and how to change your wound dressing. Check your wound every day for signs of infection, or as often as told by your health care provider. Get help right away if you have severe pain or signs of infection. This information is not intended to replace advice given to you by your health care provider. Make sure you discuss any questions you have with your health care provider. Document Released: 07/08/2005 Document Revised: 01/26/2019 Document Reviewed: 01/26/2019 [employer] Patient Education 2020 [employer]. Spinal Fusion, Adult Spinal fusion is a procedure to make two or more of the bones in the spinal column (vertebrae) growtogether (fuse). This procedure stops the vertebrae from moving and rubbing against each other. Thegoal of this procedure is to relieve pain and prevent deformity and weakening of the spine. During a spinal fusion procedure, bone material (graft) is put in between the two vertebrae to helpthem fuse. Hardware such as rods, screws, metal plates, or cages can be inserted to stabilize the vertebrae while they heal. This procedure is used to treat conditions, including: Spinal injury. Herniated disk. Abnormal curvatures of the spine, such as scoliosis or kyphosis. Infections or tumors in the spine. Spondylolisthesis. This is when one vertebra slips on top of another. Spinal stenosis. This is a narrowing of the spine. Tell a health care provider about: Any allergies you have. All medicines you are taking, including vitamins, herbs, eye drops, creams, and yqpt-kuv-kyeevsg medicines. Any problems you or family members have had with anesthetic medicines. Any blood disorders you have. Any surgeries you have had. Any medical conditions you have. Whether you are or may be . What are the risks? Generally, this is a safe procedure. However, problems may occur, (more content not included)... [facility]12-11-2022 Note Date of Service 05/24/2022 Chief Complaint Abdominal pain Subjective Overnight patient remained afebrile and hemodynamically stable with adequate oxygen saturations on room air. Leukocytosis has improved and is down to 17,000 today. No bandemia today. Renal function is within normal limits. Blood cultures show NGTD. Urine cultures pending. Patient denies any fever or chills. Rates pain to be 5-6 out of 10 today. Somewhat improved. Objective Vitals and Measurements T: 36.7 C (Oral) TMIN: 36.4 C (Oral) TMAX: 36.7 C (Oral) HR: 70(Apical) RR: 18 BP: 149/69 SpO2: 94%WT: 81.8 kg Intake and Output 7AM Yesterday to 7AM Today Intake and Output (Last 24 hours) Intake Oral Intake 120.00 Output Urinary Catheter Output: 530.00 Total Summary Total Intake 120.00 Total Output 530.00 Fluid Balance -410.00 Physical Exam GEN: Appears well developed. CHEST: Normal S1 and S2. Rhythm is regular. Clear to auscultation, without rales, rhonchi, wheezing. ABD: Positive bowel sounds x 4 quads. Soft, rounded. No guarding or rebound tenderness. EXT: No significant deformity or joint abnormality. No edema. Peripheral pulses intact. NEURO: Sensation grossly intact Weight Current Weight Dosing Weight: 81.8 kg (05/24/22) Current Weight: 74.8 kg (05/20/22) Dosing Weight: 80.3 kg (05/22/22) Medications Medications (24) Active Scheduled: (8) amLODIPine 5 mg tablet 5 mg 1 tab(s), Oral, BID cefTRIAXone 1 gram(s), IV Piggyback, qDay dexamethasone 4 mg/1 mL solution 4 mg 1 mL, IV Push, q6hr docusate sodium 100 mg Capsule 100 mg 1 cap(s), Oral, BID famotidine 20 mg tablet 20 mg 1 tab(s), Oral, qDay Fosinopril 20mg 20 mg, Oral, qDay metoprolol tartrate 50 mg tablet 50 mg 1 tab(s), Oral, BID tamsulosin 0.4 mg Capsule 0.4 mg 1 cap(s), Oral, qDayPC Continuous: (1) Lactated Ringers 1,000 mL 1,000 mL, Intravenous, 50 mL/hr PRN: (15) acetaminophen 325 mg Tablet 650 mg 2 tab(s), Oral, q4h acetaminophen 325 mg Tablet 650 mg 2 tab(s), Oral, q4h acetaminophen-HYDROcodone 325-5 mg tablet 1 tab(s), Oral, q4h diazepam 5 mg/mL 2mL SYRINGE 5 mg 1 mL, IV Push, Once diphenhydramine 25 mg tablet 25 mg 1 tab(s), Oral, q6h diphenhyDRAMINE 50 mg/mL (1 mL) INJ 25 mg 0.5 mL, IV Push, q6h docusate-senna (Senokot S) 50 mg-8.6 mg Tablet 2 tab(s), Oral, BID magnesium hydroxide 8% Suspension 30 mL UD 30 mL, Oral, Daily melatonin 3 mg tablet 6 mg 2 tab(s), Oral, qHS morphine 4 mg/mL 1mL INJ 4 mg 1 mL, IV Push, q3h ondansetron 2 mg/ 1 mL 2 mL INJ 4 mg 2 mL, IV Push, q8h scopolamine 1.5 mg (1 mg / 72 hours patch) 1 patch(es), Transdermal, q72h sodium biphosphate-sodium phosphate 19 gm-7 gm Enema 133 mL, Rectal, qDay sodium biphosphate-sodium phosphate 19 gm-7 gm Enema 133 mL, Rectal, Once tiZANidine 4 mg tablet 2 mg 0.5 tab(s), Oral, TID Lab Results 05/24 08:50 WBC: 17.0 H Hgb: 15.7 Hct: 46.0 Platelet: 179 Neutrophil %: 93.2 H Glucose Level: 171 H Sodium Level: 137 Potassium Level: 4.5 BUN: 20 H Creatinine Lvl (s): 0.94 05/23 06:22 WBC: 20.3 H Hgb: 14.1 Hct: 41.0 L Platelet: 146 Glucose Level: 150 H Sodium Level: 136 Potassium Level: 4.1 BUN: 15 Creatinine Lvl (s): 0.79 Imaging Results and Diagnostics CT Spine Thoracic w/o Contrast Result Date: May 23, 2022 Verified By: ALEXANDR BARBA MD CLINICAL STATEMENT: IMPRESSION: No visible abnormality around the spinal stimulator. There is a posteriorosteophyte at T8 which causes mild central canal narrowing of indeterminateclinical significance. Coronary artery disease. Interstitial lung disease and emphysematous change. CT Abdomen/Pelvis w/o Contrast Result Date: May 23, 2022 Verified By: ALEXANDR BARBA MD CLINICAL STATEMENT: IMPRESSION: No visible acute process. XR Chest 2 Views Result Date: May 23, 2022 Verified By: ERICK CHAWLA MD CLINICAL STATEMENT: IMPRESSION: Trace left pleural effusion. CT Abdomen/Pelvis w/Contrast Result Date: May 22, 2022 Verified By: GM JIANG MD CLINICAL STATEMENT: IMPRESSION: Mildly complex left renal lesion. CT renal mass protocol advised. Enlarged and heterogeneous prostate with focal hyperattenuation centrally inthe prostate. Prostate neoplasm is not excluded. Correlate PSA Other incidental findings, as above XR Abdomen Series w/ Chest 1 View Result Date: May 22, 2022 Verified By: JAYNE COLLINS MD CLINICAL STATEMENT: IMPRESSION: Nonobstructive bowel gas pattern. Previous described gaseous distension ofthe colon is much improved and basically resolved. Persistent intraluminal gas bubble over the lower pelvis. I have personally reviewed the images of this examination and agree with theresident's findings and inter pretation. RECOMMENDATIONS:Unavailable XR Pelvis 1 or 2 Views Result Date: May 21, 2022 Verified By: GM HERRERA DO CLINICAL STATEMENT: IMPRESSION: Similar air projecting at the pelvis. It is uncertain if this is within thebowel or urinary bladder lumen. If there is concern for extraluminal air,consider CT as deemed clinically warranted XR Abdomen AP Result Date: May 21, 2022 Verified By: RAGHU ZACARIAS DO CLINICAL STATEMENT: IMPRESSION: Gaseous distension throughout the colon may reflect adynamic ileus. Intraluminal gas bubble over the lower pelvis favored to be rectal over theurinary bladder. However this could relate to recent bladderinstrumentation. Consider lateral pelvic radiographs for further evaluation. XR Fluoro < 1Hr Tech Time Result Date: May 20, 2022 Verified By: CLINICAL STATEMENT: IMPRESSION: Assessment/Plan 1. Abdominal pain 2. Muscle spasm 3. Diabetes mellitus 4. HTN (hypertension) 5. Sleep apnea 6. CAD (coronary artery disease) 7. Lumbar spondylosis 8. UTI (urinary tract infection) Abdominal Pain-unclear cause. Considerations include UTI or referred pain from SCS. CT abd/pelvis show no GI cause. CT did show enlarged prostate with focal hyperattenuation centrally. Patient has a Olivares catheter and tamsulosin was initiated. Patient rates pain 6 out of 10 today which is improved from yesterday. Urology consulted with recommendations for follow-up outpatient. Patient will be discharged with the Olivares catheter. PSA elevated to 43. Patient denies any pain in anus, testicles, penis. Has been afebrile. No concern for prostatitis. Prescription sent in for Flomax 0.4 mg daily. Type 2 diabetes mellitus- Glucose goal 180 or less and avoid hypoglycemia. corrective sliding scaleinsulin. ADA diet. HTN- SBP goal 140 or less. Continue home antihypertensives. ALTHEA CPAP at at bedtime CAD continue Plavix Lumbar spondylosis management per primary team. UTI Rocephin 1 g daily. White blood cell count decreased to 10 17,000 [address]. No bandemia. Dr. Schofield discharging patient today. Prescription sent in for cefuroxime 500 mg twice daily x10 days. DVT prophylaxis: SCDs Labs, diagnostics, and progress notes reviewed as noted in HPI Code Status: Full code Plan of care discussed with patient and family. All questions answered. Patient verbalizes understanding is agreeable to plan of care. Patient, , daughter updated on CT results. Thank you for requesting our participation in the care of your patient. We will continue to follow during their hospitalization. This dictation was performed using voice recognition software and may include grammatical and/or spelling errors. Digitally Signed by PAOLA GRAY on 05/24/2022 10:51 AM [facility]12-10-2022 Nurse Progress note Radiology was called [id number] and then again at 2100 to request the results of the ct be read. Dr. Boswell called at 2210 to give results. Pt is comfortable, Dr Boswell requested nurse to update pt. on status of ct and plan of care with urology. Pt ct was also seen by Dr Boswell and he will be in to see the pt tomorrow. Digitally Signed by AMAYA Scherer on 05/23/2022 10:23 PM [facility]12-10-2022 Note ORIGINAL EXAMINATION: CT OF THE THORACIC SPINE WITHOUT CONTRAST 05/23/2022 2:48 pm: TECHNIQUE: CT of the thoracic spine was performed without the administration of intravenous contrast. Multiplanar reformatted images are provided for review. Automated exposure control, iterative reconstruction, and/or weight based adjustment of the mA/kV was utilized to reduce the radiation dose to as low as reasonably achievable. COMPARISON: None. HISTORY: ORDERING SYSTEM PROVIDED HISTORY: Reason for Exam: pain, new SCS FINDINGS: BONES/ALIGNMENT: There is normal alignment of the spine. The vertebral body heights are maintained. No osseous destructive lesion is seen. DEGENERATIVE CHANGES: There is mild diffuse spondylotic change. Spinal stimulator enters the central canal on the right at T10-T11, no visible abnormal fluid collection or severe central canal narrowing, however compromised evaluation is present due to the beam hardening artifact. There is a posterior T8 vertebral body osteophyte which causes mild central canal narrowing centrally. SOFT TISSUES: No paraspinal mass is seen. There is bilateral emphysematous change in nonspecific interstitial thickening. There are coronary artery calcifications and atherosclerotic disease in the aorta. IMPRESSION: No visible abnormality around the spinal stimulator. There is a posterior osteophyte at T8 which causes mild central canal narrowing of indeterminate clinical significance. Coronary artery disease. Interstitial lung disease and emphysematous change. Interpreted by: Alexandr Barba MD Preliminary Report By: Alexandr Barba MD Electronically signed By Alexandr Barba MD Dictated Date: 05/23/2022 10:17:17 PM Prelim Date: 05/23/2022 10:20:54 PM Sign Date: 05/23/2022 10:20:54 PM Ordering Provider: ROBBY BOSWELL [facility]12-10-2022 Note ORIGINAL EXAMINATION: CT OF THE ABDOMEN AND PELVIS WITHOUT IENDGEXG61/10/2022 2:[address] ABDOMEN/PELVIS WITHOUT CONTRAST TECHNIQUE: CT of the abdomen and pelvis was performed without the administration of intravenous contrast. Multiplanar reformatted images are provided for review. Automated exposure control, iterative reconstruction, and/or weight based adjustment of the mA/kV was utilized to reduce the radiation dose to as low as reasonably achievable. COMPARISON: None HISTORY: ORDERING SYSTEM PROVIDED HISTORY: Reason for Exam: pain, new SCS FINDINGS: There are no lower thoracic findings. Liver: Normal size and density. No mass or biliary dilatation. Gallbladder: Physiologically distended and otherwise unremarkable in appearance. Common duct: Not dilated. Pancreas: No mass, inflammation, calcification or adjacent fluid collection. Stomach and duodenum: No mass or wall thickening. Spleen: No mass and is normal in size. Right Kidney: No hydronephrosis, solid mass or visible stone. Left Kidney: No hydronephrosis, solid mass or visible stone. Left renal cystic lesions are not visibly changed. Adrenal glands: Normal The large and small bowel loops are unremarkable in appearance. There is a normal appendix in the RIGHT lower quadrant. Retroperitoneum: No lymphadenopathy or hematoma. Aorta: No aneurysm. There is severe atherosclerotic disease. Fem-fem bypass is present. Urinary bladder: Urinary bladder is decompressed by a Olivares catheter. Prostate gland is enlarged measuring 6.6 x 5.2 cm. Mesentery: No mass or inflammatory change. No ascites or free air. No abdominal wall masses or external hernias There are no suspicious bone lesions. Spinal stimulator enters the is central canal at T10-T11. IMPRESSION: No visible acute process. Interpreted by: Alexandr Barba MD Preliminary Report By: Alexandr Barba MD Electronically signed By Alexandr Barba MD Dictated Date: 05/23/2022 9:55:06 PM Prelim Date: 05/23/2022 10:06:26 PM Sign Date: 05/23/2022 10:06:26 PM Ordering Provider: ROBBY BOSWELL [facility]12-10-2022 Note ORIGINAL EXAMINATION: TWO XRAY VIEWS OF THE CHEST 05/23/2022 11:34 am COMPARISON: Prior chest x-ray dated 05/22/2022. HISTORY: ORDERING SYSTEM PROVIDED HISTORY: Reason for Exam: increased oxygen demands FINDINGS: The cardiomediastinal silhouette demonstrates a normal appearance. Trace left pleural effusion is seen. No consolidative opacity is identified. There is no pneumothorax. No free air seen beneath the level of the diaphragm. The bony thorax appears acutely intact. Spinal stimulator leads are seen overlying the thoracic spine. IMPRESSION: Trace left pleural effusion. Interpreted by: Erick Chawla MD Preliminary Report By: Erick Chawla MD Electronically signed By Erick Chawla MD Dictated Date: 05/23/2022 3:03:46 PM Prelim Date: 05/23/2022 3:05:19 PM Sign Date: 05/23/2022 3:05:19 PM Ordering Provider: PAOLA GRAY [facility]12-10-2022 Note ORIGINAL EXAMINATION: CT OF THE THORACIC SPINE WITHOUT CONTRAST 05/23/2022 2:48 pm: TECHNIQUE: CT of the thoracic spine was performed without the administration of intravenous contrast. Multiplanar reformatted images are provided for review. Automated exposure control, iterative reconstruction, and/or weight based adjustment of the mA/kV was utilized to reduce the radiation dose to as low as reasonably achievable. COMPARISON: None. HISTORY: ORDERING SYSTEM PROVIDED HISTORY: Reason for Exam: pain, new SCS FINDINGS: BONES/ALIGNMENT: There is normal alignment of the spine. The vertebral body heights are maintained. No osseous destructive lesion is seen. DEGENERATIVE CHANGES: There is mild diffuse spondylotic change. Spinal stimulator enters the central canal on the right at T10-T11, no visible abnormal fluid collection or severe central canal narrowing, however compromised evaluation is present due to the beam hardening artifact. There is a posterior T8 vertebral body osteophyte which causes mild central canal narrowing centrally. SOFT TISSUES: No paraspinal mass is seen. There is bilateral emphysematous change in nonspecific interstitial thickening. There are coronary artery calcifications and atherosclerotic disease in the aorta. IMPRESSION: No visible abnormality around the spinal stimulator. There is a posterior osteophyte at T8 which causes mild central canal narrowing of indeterminate clinical significance. Coronary artery disease. Interstitial lung disease and emphysematous change. Interpreted by: Alexandr Barba MD Preliminary Report By: Alexandr Barba MD Electronically signed By Alexandr Barba MD Dictated Date: 05/23/2022 10:17:17 PM Prelim Date: 05/23/2022 10:20:54 PM Sign Date: 05/23/2022 10:20:54 PM Ordering Provider: [facility]12-10-2022 Note Date of Service 05/23/2022 Chief Complaint abd pain Subjective Overnight patient remained afebrile and hemodynamically stable. White blood cell count increased from 11,000-20,000 today. 6% bands. PSA elevated to 43.24. Denies any fever or chills. No headaches or dizziness. Denies any chest pain, palpitations, cough, dyspnea. Lower abdominal pain persists. Patient was trying not to take morphine however pain became quite intense this morning. No pain from Olivares. Objective Vitals and Measurements T: 36.6 C (Oral) TMIN: 36.6 C (Oral) TMAX: 37.9 C (Oral) HR: 78(Monitored) RR: 18 BP: 156/83 SpO2: 93% Intake and Output 7AM Yesterday to 7AM Today Intake and Output (Last 24 hours) Intake Oral Intake 1160.00 Administration Information 1491.67 Output Urine Voided 100.00 Urinary Catheter Output: 3005.00 Total Summary Total Intake 2651.67 Total Output 3105.00 Fluid Balance -453.33 Physical Exam GEN: Appears well developed. CHEST: Normal S1 and S2. Rhythm is regular. Clear to auscultation, without rales, rhonchi, wheezing. ABD: Positive bowel sounds x 4 quads. Soft, rounded. No guarding or rebound tenderness. EXT: No significant deformity or joint abnormality. No edema. Peripheral pulses intact. NEURO: Sensation grossly intact Weight Current Weight Dosing Weight: 80.3 kg (05/22/22) Current Weight: 74.8 kg (05/20/22) Dosing Weight: 74.8 kg (05/20/22) Medications Medications (24) Active Scheduled: (8) amLODIPine 5 mg tablet 5 mg 1 tab(s), Oral, BID cefTRIAXone 1 gram(s), IV Piggyback, qDay docusate sodium 100 mg Capsule 100 mg 1 cap(s), Oral, BID famotidine 20 mg tablet 20 mg 1 tab(s), Oral, qDay gabapentin 300 mg Capsule 300 mg 1 cap(s), Oral, qHS lisinopril 5 mg tablet 10 mg 2 tab(s), Oral, qDay metoprolol tartrate 50 mg tablet 50 mg 1 tab(s), Oral, BID tamsulosin 0.4 mg Capsule 0.4 mg 1 cap(s), Oral, qDayPC Continuous: (1) Lactated Ringers 1,000 mL 1,000 mL, Intravenous, 50 mL/hr PRN: (15) acetaminophen 325 mg Tablet 650 mg 2 tab(s), Oral, q4h acetaminophen 325 mg Tablet 650 mg 2 tab(s), Oral, q4h acetaminophen-HYDROcodone 325-5 mg tablet 1 tab(s), Oral, q4h diazepam 5 mg/mL 2mL SYRINGE 5 mg 1 mL, IV Push, Once diphenhydramine 25 mg tablet 25 mg 1 tab(s), Oral, q6h diphenhyDRAMINE 50 mg/mL (1 mL) INJ 25 mg 0.5 mL, IV Push, q6h docusate-senna (Senokot S) 50 mg-8.6 mg Tablet 2 tab(s), Oral, BID magnesium hydroxide 8% Suspension 30 mL UD 30 mL, Oral, Daily melatonin 3 mg tablet 6 mg 2 tab(s), Oral, qHS morphine 4 mg/mL 1mL INJ 4 mg 1 mL, IV Push, q3h ondansetron 2 mg/ 1 mL 2 mL INJ 4 mg 2 mL, IV Push, q8h scopolamine 1.5 mg (1 mg / 72 hours patch) 1 patch(es), Transdermal, q72h sodium biphosphate-sodium phosphate 19 gm-7 gm Enema 133 mL, Rectal, qDay sodium biphosphate-sodium phosphate 19 gm-7 gm Enema 133 mL, Rectal, Once tiZANidine 4 mg tablet 2 mg 0.5 tab(s), Oral, TID Lab Results 05/23 06:22 WBC: 20.3 H Hgb: 14.1 Hct: 41.0 L Platelet: 146 Glucose Level: 150 H Sodium Level: 136 Potassium Level: 4.1 BUN: 15 Creatinine Lvl (s): 0.79 Imaging Results and Diagnostics CT Abdomen/Pelvis w/Contrast Result Date: May 22, 2022 Verified By: GM JIANG MD CLINICAL STATEMENT: IMPRESSION: Mildly complex left renal lesion. CT renal mass protocol advised. Enlarged and heterogeneous prostate with focal hyperattenuation centrally inthe prostate. Prostate neoplasm is not excluded. Correlate PSA Other incidental findings, as above XR Abdomen Series w/ Chest 1 View Result Date: May 22, 2022 Verified By: JAYNE COLLINS MD CLINICAL STATEMENT: IMPRESSION: Nonobstructive bowel gas pattern. Previous described gaseous distension ofthe colon is much improved and basically resolved. Persistent intraluminal gas bubble over the lower pelvis. I have personally reviewed the images of this examination and agree with theresident's findings and inter pretation. RECOMMENDATIONS:Unavailable XR Pelvis 1 or 2 Views Result Date: May 21, 2022 Verified By: GM HERRERA DO CLINICAL STATEMENT: IMPRESSION: Similar air projecting at the pelvis. It is uncertain if this is within thebowel or urinary bladder lumen. If there is concern for extraluminal air,consider CT as deemed clinically warranted XR Abdomen AP Result Date: May 21, 2022 Verified By: RAGHU ZACARIAS DO CLINICAL STATEMENT: IMPRESSION: Gaseous distension throughout the colon may reflect adynamic ileus. Intraluminal gas bubble over the lower pelvis favored to be rectal over theurinary bladder. However this could relate to recent bladderinstrumentation. Consider lateral pelvic radiographs for further evaluation. XR Fluoro < 1Hr Tech Time Result Date: May 20, 2022 Verified By: CLINICAL STATEMENT: IMPRESSION: Assessment/Plan 1. Abdominal pain 2. Muscle spasm 3. Diabetes mellitus 4. HTN (hypertension) 5. Sleep apnea 6. CAD (coronary artery disease) 7. Lumbar spondylosis 8. UTI (urinary tract infection) Abdominal Pain-unclear cause. Considerations include UTI, pain from SCS. CT abd/pelvis show no GI cause. CT did show enlarged prostate with focal hyperattenuation centrally. Patient has a Olivares catheter and tamsulosin was initiated. Patient continues to have 9/10 abdominal pain in the suprapubic reg ion radiating out laterally. Discussed with Dr. Boswell. More imaging will be obtained in the event that spinal cord stimulator needs to be removed. Urology consulted with recommendations for follow-up outpatient. Patient will be discharged with the Olivares catheter. PSA elevated to 43. Patient denies any pain in anus, testicles, penis. Has been afebrile. No concern for prostatitis. Type 2 diabetes mellitus- Glucose goal 180 or less and avoid hypoglycemia. corrective sliding scaleinsulin. ADA diet. HTN- SBP goal 140 or less. Continue home antihypertensives. ALTHEA CPAP at at bedtime CAD continue Plavix Lumbar spondylosis management per primary team. UTI Rocephin 1 g daily. White blood cell count is elevated to 20,000 today with 6% bands. Obtain blood cultures and urine culture. Continue LR at 50 mL/h. DVT prophylaxis: SCDs Labs, diagnostics, and progress notes reviewed as noted in HPI Code Status: Full code Plan of care discussed with patient and family. All questions answered. Patient verbalizes understanding is agreeable to plan of care. Patient, , daughter updated on CT results. Thank you for requesting our participation in the care of your patient. We will continue to follow during their hospitalization. This dictation was performed using voice recognition software and may include grammatical and/or spelling errors. Digitally Signed by PAOLA GRAY on 05/23/2022 02:04 PM [facility]12-10-2022 Evaluation + Plan note Diagnostic Tests Pending * Blood Culture (bacterial) 05/23/22 [facility] 12-10-2022 Note ORIGINAL EXAMINATION: CT OF THE ABDOMEN AND PELVIS WITHOUT OWDOYIUJ81/10/2022 2:[address] ABDOMEN/PELVIS WITHOUT CONTRAST TECHNIQUE: CT of the abdomen and pelvis was performed without the administration of intravenous contrast. Multiplanar reformatted images are provided for review. Automated exposure control, iterative reconstruction, and/or weight based adjustment of the mA/kV was utilized to reduce the radiation dose to as low as reasonably achievable. COMPARISON: None HISTORY: ORDERING SYSTEM PROVIDED HISTORY: Reason for Exam: pain, new SCS FINDINGS: There are no lower thoracic findings. Liver: Normal size and density. No mass or biliary dilatation. Gallbladder: Physiologically distended and otherwise unremarkable in appearance. Common duct: Not dilated. Pancreas: No mass, inflammation, calcification or adjacent fluid collection. Stomach and duodenum: No mass or wall thickening. Spleen: No mass and is normal in size. Right Kidney: No hydronephrosis, solid mass or visible stone. Left Kidney: No hydronephrosis, solid mass or visible stone. Left renal cystic lesions are not visibly changed. Adrenal glands: Normal The large and small bowel loops are unremarkable in appearance. There is a normal appendix in the RIGHT lower quadrant. Retroperitoneum: No lymphadenopathy or hematoma. Aorta: No aneurysm. There is severe atherosclerotic disease. Fem-fem bypass is present. Urinary bladder: Urinary bladder is decompressed by a Olivares catheter. Prostate gland is enlarged measuring 6.6 x 5.2 cm. Mesentery: No mass or inflammatory change. No ascites or free air. No abdominal wall masses or external hernias There are no suspicious bone lesions. Spinal stimulator enters the is central canal at T10-T11. IMPRESSION: No visible acute process. Interpreted by: Alexandr Barba MD Preliminary Report By: Alexandr Barba MD Electronically signed By Alexandr Barba MD Dictated Date: 05/23/2022 9:55:06 PM Prelim Date: 05/23/2022 10:06:26 PM Sign Date: 05/23/2022 10:06:26 PM Ordering Provider: [facility]12-10-2022 Note ORIGINAL EXAMINATION: TWO XRAY VIEWS OF THE CHEST 05/23/2022 11:34 am COMPARISON: Prior chest x-ray dated 05/22/2022. HISTORY: ORDERING SYSTEM PROVIDED HISTORY: Reason for Exam: increased oxygen demands FINDINGS: The cardiomediastinal silhouette demonstrates a normal appearance. Trace left pleural effusion is seen. No consolidative opacity is identified. There is no pneumothorax. No free air seen beneath the level of the diaphragm. The bony thorax appears acutely intact. Spinal stimulator leads are seen overlying the thoracic spine. IMPRESSION: Trace left pleural effusion. Interpreted by: Erick Chawla MD Preliminary Report By: Erick Chawla MD Electronically signed By Erick Chawla MD Dictated Date: 05/23/2022 3:03:46 PM Prelim Date: 05/23/2022 3:05:19 PM Sign Date: 05/23/2022 3:05:19 PM [facility] Lea called back to order olivares catheter to stay in and remain on Flomax. Pt to be dischargedwith olivares and call office to make f/u appt to have olivares removed in office. Paola Gray APRN-CNPnotified. Digitally Signed by AMAYA Segura on 05/23/2022 08:35 AM [facility]12-09-2022 Note Date of Service 05/22/2022 Chief Complaint Abdominal pain Subjective Overnight patient remained afebrile and hemodynamically stable with adequate oxygen saturations on room air. White blood cell count 11,900. BMP unremarkable. On exam today, pt denies any fever or chills. No headache or dizziness. Denies chest pain, palpitations. No cough, dyspnea, sputum production. Denies N/V/D/C. Continued abdominal pain. No new paresthesias. Objective Vitals and Measurements T: 37.9 C (Oral) TMIN: 36.2 C (Oral) TMAX: 37.9 C (Oral) HR: 92(Apical) RR: 18 BP: 146/76 SpO2: 93%WT: 80.3 kg Intake and Output 7AM Yesterday to 7AM Today Intake and Output (Last 24 hours) Intake Oral Intake 940.00 Administration Information 960.00 Output Urine Voided 250.00 Urinary Catheter Output: 2100.00 Stool Count 1.00 Urine Count 1.00 Total Summary Total Intake 1900.00 Total Output 2350.00 Fluid Balance -450.00 Physical Exam GEN: Appears chronically ill CHEST: Normal S1 and S2. Rhythm is regular. Clear to auscultation, without rales, rhonchi, wheezing. ABD: Positive bowel sounds x 4 quads. Soft, distended. EXT: No significant deformity or joint abnormality. No edema. Peripheral pulses intact. NEURO: Sensation grossly intact SKIN: Surgical dressing in place PSYCH: The mental examination revealed the patient was alert and oriented x 4 Weight Current Weight Dosing Weight: 80.3 kg (05/22/22) Current Weight: 74.8 kg (05/20/22) Dosing Weight: 74.8 kg (05/20/22) Medications Medications (22) Active Scheduled: (7) cefTRIAXone 1 gram(s), IV Piggyback, qDay dexamethasone 4 mg/1 mL solution 4 mg 1 mL, IV Push, q6hr docusate sodium 100 mg Capsule 100 mg 1 cap(s), Oral, BID famotidine 20 mg tablet 20 mg 1 tab(s), Oral, qDay gabapentin 300 mg Capsule 300 mg 1 cap(s), Oral, qHS metoprolol tartrate 50 mg tablet 50 mg 1 tab(s), Oral, BID tamsulosin 0.4 mg Capsule 0.4 mg 1 cap(s), Oral, qDayPC Continuous: (1) Lactated Ringers 1,000 mL 1,000 mL, Intravenous, 75 mL/hr PRN: (14) acetaminophen 325 mg Tablet 650 mg 2 tab(s), Oral, q4h acetaminophen 325 mg Tablet 650 mg 2 tab(s), Oral, q4h acetaminophen-HYDROcodone 325-5 mg tablet 1 tab(s), Oral, q4h diphenhydramine 25 mg tablet 25 mg 1 tab(s), Oral, q6h diphenhyDRAMINE 50 mg/mL (1 mL) INJ 25 mg 0.5 mL, IV Push, q6h docusate-senna (Senokot S) 50 mg-8.6 mg Tablet 2 tab(s), Oral, BID magnesium hydroxide 8% Suspension 30 mL UD 30 mL, Oral, Daily melatonin 3 mg tablet 6 mg 2 tab(s), Oral, qHS morphine 4 mg/mL 1mL INJ 4 mg 1 mL, IV Push, q3h ondansetron 2 mg/ 1 mL 2 mL INJ 4 mg 2 mL, IV Push, q8h scopolamine 1.5 mg (1 mg / 72 hours patch) 1 patch(es), Transdermal, q72h sodium biphosphate-sodium phosphate 19 gm-7 gm Enema 133 mL, Rectal, qDay sodium biphosphate-sodium phosphate 19 gm-7 gm Enema 133 mL, Rectal, Once tiZANidine 4 mg tablet 2 mg 0.5 tab(s), Oral, TID Lab Results No 36 Hour Lab Data EKG No qualifying data available. Assessment/Plan 1. Abdominal pain 2. Muscle spasm 3. Diabetes mellitus 4. HTN (hypertension) 5. Sleep apnea 6. CAD (coronary artery disease) 7. Lumbar spondylosis Abdominal Pain-urinalysis collected and shows 3+ bacteria. This is a change from 2 days ago. Olivares catheter was removed this morning and reinserted. Pain did improve after Olivares catheter was reinserted. Dr. Boswell consulted urology. CT abdomen and pelvis Done with contrast. This demonstrated mildly complex left renal lesion. Enlarged and heterogeneous prostate with focal hyperattenuation centrallyin the prostate. Prostate neoplasm is not excluded. Will obtain PSA tomorrow morning. Start tamsulosin 0.4 mg daily. Muscle spasm continue as needed tizanidine. Discontinue oxybutynin. Continue with Olivares catheter. Await urology consult. Type 2 diabetes mellitus- Glucose goal 180 or less and avoid hypoglycemia. corrective sliding scaleinsulin. ADA diet. HTN- SBP goal 140 or less. Continue home antihypertensives. ALTHEA CPAP at at bedtime CAD continue Plavix Lumbar spondylosis management per primary team. DVT prophylaxis: SCDs Labs, diagnostics, and progress notes reviewed as noted in HPI Code Status: Full code Plan of care discussed with patient. All questions answered. Patient verbalizes understanding is agreeable to plan of care. Patient, , daughter updated on CT results. Thank you for requesting our participation in the care of your patient. We will continue to follow during their hospitalization. This dictation was performed using voice recognition software and may include grammatical and/or spelling errors. Digitally Signed by PAOLA GRAY on 05/22/2022 06:38 PM [facility]12-09-2022 Note ORIGINAL EXAMINATION: CT OF THE ABDOMEN AND PELVIS WITH ECGHYMDL54/9/2022 4:02 pm TECHNIQUE: CT of the abdomen and pelvis was performed with the administration of intravenous contrast. Multiplanar reformatted images are provided for review. Automated exposure control, iterative reconstruction, and/or weight based adjustment of the mA/kV was utilized to reduce the radiation dose to as low as reasonably achievable. COMPARISON: None HISTORY: ORDERING SYSTEM PROVIDED HISTORY: Reason for Exam: abd pain, gas bubble bladder vs colon FINDINGS: Scarring/atelectasis noted in the lower lungs.. There is no visible pleural or pericardial effusion. The heart is normal in size. A cyst is noted in the left hepatic lobe on image 17, too small for characterization. The pancreas, adrenal glands and spleen are unremarkable. There are splenic granulomas. No filling defects seen in the gallbladder. The kidneys enhance symmetrically. A 2.3 cm low-density lesion in the left kidney measures 33 Hounsfield units. There is a parapelvic left renal cyst measuring 8 Hounsfield units. The large and small bowel demonstrate no obstruction. The appendix is normal. No free intraperitoneal fluid or gas is identified. The aorta is normal in caliber. There is moderate atherosclerosis of the larger arteries. There is femoral-femoral bypass graft There is no lymphadenopathy. The prostate is enlarged and heterogeneous. There is a central hyperattenuating area measuring 4 cm. No filling defects seen in the urinary bladder. There is no acute fracture or aggressive osseous lesion. A neurostimulator noted.. There are posterior fusion changes in the lower lumbar spine. Small hernia noted near the umbilicus, partially obscured by motion IMPRESSION: Mildly complex left renal lesion. CT renal mass protocol advised. Enlarged and heterogeneous prostate with focal hyperattenuation centrally in the prostate. Prostate neoplasm is not excluded. Correlate PSA Other incidental findings, as above Interpreted by: Gm Jiang MD Preliminary Report By: Gm Jiang MD Electronically signed By Gm Jiang MD Dictated Date: 05/22/2022 4:14:35 PM Prelim Date: 05/22/2022 4:23:24 PM Sign Date: 05/22/2022 4:23:24 PM [facility]ing [facility]22 Note ORIGINAL EXAMINATION: CT OF THE ABDOMEN AND PELVIS WITH ZAHEQBIS64/9/2022 4:02 pm TECHNIQUE: CT of the abdomen and pelvis was performed with the administration of intravenous contrast. Multiplanar reformatted images are provided for review. Automated exposure control, iterative reconstruction, and/or weight based adjustment of the mA/kV was utilized to reduce the radiation dose to as low as reasonably achievable. COMPARISON: None HISTORY: ORDERING SYSTEM PROVIDED HISTORY: Reason for Exam: abd pain, gas bubble bladder vs colon FINDINGS: Scarring/atelectasis noted in the lower lungs.. There is no visible pleural or pericardial effusion. The heart is normal in size. A cyst is noted in the left hepatic lobe on image 17, too small for characterization. The pancreas, adrenal glands and spleen are unremarkable. There are splenic granulomas. No filling defects seen in the gallbladder. The kidneys enhance symmetrically. A 2.3 cm low-density lesion in the left kidney measures 33 Hounsfield units. There is a parapelvic left renal cyst measuring 8 Hounsfield units. The large and small bowel demonstrate no obstruction. The appendix is normal. No free intraperitoneal fluid or gas is identified. The aorta is normal in caliber. There is moderate atherosclerosis of the larger arteries. There is femoral-femoral bypass graft There is no lymphadenopathy. The prostate is enlarged and heterogeneous. There is a central hyperattenuating area measuring 4 cm. No filling defects seen in the urinary bladder. There is no acute fracture or aggressive osseous lesion. A neurostimulator noted.. There are posterior fusion changes in the lower lumbar spine. Small hernia noted near the umbilicus, partially obscured by motion IMPRESSION: Mildly complex left renal lesion. CT renal mass protocol advised. Enlarged and heterogeneous prostate with focal hyperattenuation centrally in the prostate. Prostate neoplasm is not excluded. Correlate PSA Other incidental findings, as above Interpreted by: Gm Jiang MD Preliminary Report By: Gm Jiang MD Electronically signed By Gm Jiang MD Dictated Date: 05/22/2022 4:14:35 PM Prelim Date: 05/22/2022 4:23:24 PM Sign Date: 05/22/2022 4:23:24 PM Ordering Provider: [facility]12-09-2022 Note ORIGINAL EXAMINATION: TWO XRAY VIEWS OF THE ABDOMEN AND SINGLE XRAY VIEW OF THE CHEST05/22/2022 6:20 am COMPARISON: 05/21/2022 HISTORY: ORDERING SYSTEM PROVIDED HISTORY: Reason for Exam: abd pain FINDINGS: Previous described intraluminal gas bubble projecting over the lower pelvis now measures approximately 7.3 x 5.3 cm, previously 8.4 x 6.6 cm. There are no pathologically dilated loops of bowel identified. Gaseous distension of the colon is much improved from prior study. Scattered fecal material. Minimal bibasilar atelectasis. Otherwise the lungs are grossly clear. Grossly unremarkable cardiomediastinal silhouette. Stimulator device present. Lumbosacral hardware noted. IMPRESSION: Nonobstructive bowel gas pattern. Previous described gaseous distension of the colon is much improved and basically resolved. Persistent intraluminal gas bubble over the lower pelvis. I have personally reviewed the images of this examination and agree with the resident's findings and interpretation. RECOMMENDATIONS: Unavailable Interpreted by: Jayne Collins MD Preliminary Report By: Alejandro Alba Electronically signed By Jayne Collins MD Dictated Date: 05/22/2022 6:43:35 AM Prelim Date: 05/22/2022 6:48:33 AM Sign Date: 05/22/2022 7:50:29 AM Ordering Provider: PAOLALILIANA GRAY [facility]12-09-2022 Note Date of Service 05/22/2022 Chief Complaint Status post implantation of permanent spinal cord stimulator Subjective Patient was seen postoperative day 2. He had imaging studies that showed ileus postoperatively. Since then he has had a bowel movement and is passing gas. Olivares is currently anchored. He states his abdomen is feeling less distended and his pain has improved somewhat but he still complains of lower abdominal pain. He denies any back pain. He denies any acute numbness tingling weakness or fever chills nausea or vomiting. Objective Vitals and Measurements T: 36.8 C (Oral) TMIN: 36.5 C (Oral) TMAX: 37.0 C (Oral) HR: 54(Monitored) RR: 18 BP: 148/73 SpO2: 89% WT: 80.3 kg Intake and Output 7AM Yesterday to 7AM Today Intake and Output (Last 24 hours) Intake Administration Information 960.00 Output Urinary Catheter Output: 3425.00 Stool Count 1.00 Total Summary Total Intake 960.00 Total Output 3425.00 Fluid Balance -2465.00 Physical Exam A&O, NAD Regular rate and rhythm NCAT EOMI Clear to auscultation bilaterally Dressings clean dry and intact Extremities sensation motor intact grossly without focal deficit, no tenderness to palpation or edema, pulses and reflexes are normal and symmetric Abdomen soft, no tenderness, minimal distention Weight Current Weight Dosing Weight: 80.3 kg (05/22/22) Current Weight: 74.8 kg (05/20/22) Dosing Weight: 74.8 kg (05/20/22) Medications Medications (21) Active Scheduled: (8) ceFAZolin 2 g, IV Piggyback, q8h docusate sodium 100 mg Capsule 100 mg 1 cap(s), Oral, BID docusate-senna (Senokot S) 50 mg-8.6 mg Tablet 2 tab(s), Oral, BID famotidine 20 mg tablet 20 mg 1 tab(s), Oral, qDay gabapentin 300 mg Capsule 300 mg 1 cap(s), Oral, qHS magnesium hydroxide 8% Suspension 30 mL UD 30 mL, Oral, Daily metoprolol tartrate 50 mg tablet 50 mg 1 tab(s), Oral, BID oxybutynin 5 mg Tablet 10 mg 2 tab(s), Oral, qDay Continuous: (1) Lactated Ringers 1,000 mL 1,000 mL, Intravenous, 75 mL/hr PRN: (12) acetaminophen 325 mg Tablet 650 mg 2 tab(s), Oral, q4h acetaminophen 325 mg Tablet 650 mg 2 tab(s), Oral, q4h acetaminophen-HYDROcodone 325-5 mg tablet 1 tab(s), Oral, q4h diphenhydramine 25 mg tablet 25 mg 1 tab(s), Oral, q6h diphenhyDRAMINE 50 mg/mL (1 mL) INJ 25 mg 0.5 mL, IV Push, q6h melatonin 3 mg tablet 6 mg 2 tab(s), Oral, qHS morphine 4 mg/mL 1mL INJ 4 mg 1 mL, IV Push, q3h ondansetron 2 mg/ 1 mL 2 mL INJ 4 mg 2 mL, IV Push, q8h scopolamine 1.5 mg (1 mg / 72 hours patch) 1 patch(es), Transdermal, q72h sodium biphosphate-sodium phosphate 19 gm-7 gm Enema 133 mL, Rectal, qDay sodium biphosphate-sodium phosphate 19 gm-7 gm Enema 133 mL, Rectal, Once tiZANidine 4 mg tablet 2 mg 0.5 tab(s), Oral, TID Lab Results 05/21 05:13 WBC: 11.9 H Hgb: 14.3 Hct: 42.0 Platelet: 214 Neutrophil %: 88.9 H Glucose Level: 163 H Sodium Level: 137 Potassium Level: 4.7 BUN: 15 Creatinine Lvl (s): 0.99 EKG No qualifying data available. Assessment/Plan 1. Abdominal pain Postop ileus appears to be resolving. Patient has had a bowel movement and his pain is improved somewhat although he is still having some abdominal pain. Okay to advance diet as tolerated. Remove Olivares, keep IV fluids going. Patient is not urinating, do bladder scan. If bladder scan is greater [id number] cc replace olivares. Otherwise, pain control and mobilization as tolerated. Will monitor. Okay to discharge home once patient's abdominal pain is under control. Call with any questions. The patient understands and agrees with the treatment plan. 2. Muscle spasm 3. Diabetes mellitus 4. HTN (hypertension) 5. Sleep apnea 6. CAD (coronary artery disease) 7. Lumbar spondylosis Orders: Admit to Inpatient Digitally Signed by ROBBY BOSWELL DO on 05/22/2022 07:22 AM [facility]12-09-2022 Note ORIGINAL EXAMINATION: TWO XRAY VIEWS OF THE ABDOMEN AND SINGLE XRAY VIEW OF THE CHEST05/22/2022 6:20 am COMPARISON: 05/21/2022 HISTORY: ORDERING SYSTEM PROVIDED HISTORY: Reason for Exam: abd pain FINDINGS: Previous described intraluminal gas bubble projecting over the lower pelvis now measures approximately 7.3 x 5.3 cm, previously 8.4 x 6.6 cm. There are no pathologically dilated loops of bowel identified. Gaseous distension of the colon is much improved from prior study. Scattered fecal material. Minimal bibasilar atelectasis. Otherwise the lungs are grossly clear. Grossly unremarkable cardiomediastinal silhouette. Stimulator device present. Lumbosacral hardware noted. IMPRESSION: Nonobstructive bowel gas pattern. Previous described gaseous distension of the colon is much improved and basically resolved. Persistent intraluminal gas bubble over the lower pelvis. I have personally reviewed the images of this examination and agree with the resident's findings and interpretation. RECOMMENDATIONS: Unavailable Interpreted by: Jayne Collins MD Preliminary Report By: Alejandro Alba Electronically signed By Jayne Collins MD Dictated Date: 05/22/2022 6:43:35 AM Prelim Date: 05/22/2022 6:48:33 AM Sign Date: 05/22/2022 7:50:29 AM Ordering Provider: PAOLA [facility] Kylie [id number] Note Date of Service 05/21/2022 Chief Complaint Abdominal pain Subjective Overnight patient remained afebrile and hemodynamically stable. Main attained on room air this morning. White blood cell count is 11,900. BMP unremarkable. On exam today, pt denies any fever or chills. No headache or dizziness. Denies chest pain, palpitations. No cough, dyspnea, sputum production. Admits continued abdominal pain, mostly in the lower quadrants and suprapubic region. No BM in several days.. No dysuria or hematuria. No new paresthesias. Objective Vitals and Measurements T: 37.0 C (Oral) TMIN: 36.4 C (Oral) TMAX: 37.0 C (Oral) HR: 86(Monitored) RR: 16 BP: 141/81 SpO2: 94% Intake and Output 7AM Yesterday to 7AM Today Intake and Output (Last 24 hours) Intake Output Urine Voided 1650.00 Urinary Catheter Output: 2725.00 Total Summary Total Intake 0.00 Total Output 4375.00 Fluid Balance -4375.00 Physical Exam GEN: Appears chronically ill CHEST: Normal S1 and S2. Rhythm is regular. Clear to auscultation, without rales, rhonchi, wheezing. ABD: Positive bowel sounds x 4 quads. Soft, distended. EXT: No significant deformity or joint abnormality. No edema. Peripheral pulses intact. NEURO: Sensation grossly intact SKIN: Surgical dressing in place PSYCH: The mental examination revealed the patient was alert and oriented x 4 Weight Current Weight Dosing Weight: 74.8 kg (05/20/22) Current Weight: 74.8 kg (05/20/22) Dosing Weight: 74.8 kg (05/20/22) Medications Medications (21) Active Scheduled: (8) ceFAZolin 2 g, IV Piggyback, q8h docusate sodium 100 mg Capsule 100 mg 1 cap(s), Oral, BID docusate-senna (Senokot S) 50 mg-8.6 mg Tablet 2 tab(s), Oral, BID famotidine 20 mg tablet 20 mg 1 tab(s), Oral, qDay gabapentin 300 mg Capsule 300 mg 1 cap(s), Oral, qHS magnesium hydroxide 8% Suspension 30 mL UD 30 mL, Oral, Daily metoprolol tartrate 50 mg tablet 50 mg 1 tab(s), Oral, BID oxybutynin 5 mg Tablet 10 mg 2 tab(s), Oral, qDay Continuous: (1) Lactated Ringers 1,000 mL 1,000 mL, Intravenous, 75 mL/hr PRN: (12) acetaminophen 325 mg Tablet 650 mg 2 tab(s), Oral, q4h acetaminophen 325 mg Tablet 650 mg 2 tab(s), Oral, q4h acetaminophen-HYDROcodone 325-5 mg tablet 1 tab(s), Oral, q4h diphenhydramine 25 mg tablet 25 mg 1 tab(s), Oral, q6h diphenhyDRAMINE 50 mg/mL (1 mL) INJ 25 mg 0.5 mL, IV Push, q6h melatonin 3 mg tablet 6 mg 2 tab(s), Oral, qHS morphine 4 mg/mL 1mL INJ 4 mg 1 mL, IV Push, q3h ondansetron 2 mg/ 1 mL 2 mL INJ 4 mg 2 mL, IV Push, q8h scopolamine 1.5 mg (1 mg / 72 hours patch) 1 patch(es), Transdermal, q72h sodium biphosphate-sodium phosphate 19 gm-7 gm Enema 133 mL, Rectal, qDay sodium biphosphate-sodium phosphate 19 gm-7 gm Enema 133 mL, Rectal, Once tiZANidine 4 mg tablet 2 mg 0.5 tab(s), Oral, TID Lab Results 05/21 05:13 WBC: 11.9 H Hgb: 14.3 Hct: 42.0 Platelet: 214 Neutrophil %: 88.9 H Glucose Level: 163 H Sodium Level: 137 Potassium Level: 4.7 BUN: 15 Creatinine Lvl (s): 0.99 05/20 14:12 WBC: 12.0 H Hgb: 14.6 Hct: 42.7 Platelet: 194 Neutrophil %: 94.7 H Glucose Level: 145 H Sodium Level: 139 Potassium Level: 4.0 BUN: 15 Creatinine Lvl (s): 0.91 05/20 07:34 Protime: 11.8 PT International Ratio: 1.0 Assessment/Plan 1. Abdominal pain 2. Muscle spasm 3. Diabetes mellitus 4. HTN (hypertension) 5. Sleep apnea 6. CAD (coronary artery disease) 7. Lumbar spondylosis Abdominal Pain- XR Abdomen demonstrates gaseous distention throughout the colon that may reflect adynamic ileus. Intraluminal gas bubble over the lower pelvis favored to be rectal over the urinary bladder. X-ray pelvis shows similar air projecting at the pelvis. Uncertain if this is within the bowel or urinary bladder lumen. We will give patient an enema. Encourage patient to ambulate. Keep patient n.p.o. Repeat abdominal x-ray in the morning. Muscle spasm continue as needed tizanidine. Continue oxybutynin for bladder spasms. Continue with Olivares catheter. Patient will need to follow-up with urology outpatient. Type 2 diabetes mellitus- Glucose goal 180 or less and avoid hypoglycemia. corrective sliding scaleinsulin. ADA diet. HTN- SBP goal 140 or less. Continue home antihypertensives. ALTHEA CPAP at at bedtime CAD continue Plavix Lumbar spondylosis management per primary team. DVT prophylaxis: SCDs Labs, diagnostics, and progress notes reviewed as noted in HPI Code Status: Full code Plan of care discussed with patient. All questions answered. Patient verbalizes understanding is agreeable to plan of care. Thank you for requesting our participation in the care of your patient. We will continue to follow during their hospitalization. This dictation was performed using voice recognition software and may include grammatical and/or spelling errors. Digitally Signed by PAOLA GRAY on 05/21/2022 05:31 PM [facility]12-08-2022 Note ORIGINAL EXAMINATION: ONE XRAY VIEW OF THE PELVIS 05/21/2022 12:03 pm COMPARISON: KUB earlier the same day. HISTORY: ORDERING SYSTEM PROVIDED HISTORY: Reason for Exam: abdominal pain, intraluminal gas bubble FINDINGS: There is a focus of air with multilobulated margins measuring 8 x 8 cm projecting at the mid to posterior pelvis. Additional mild gas and stool distension of the colon as well as mild gas distension of the small bowel is evident. No definite pneumoperitoneum. No definite osseous abnormality. Surgical changes are noted of the spine. Partially visible spinal stimulator battery pack and lead noted. IMPRESSION: Similar air projecting at the pelvis. It is uncertain if this is within the bowel or urinary bladder lumen. If there is concern for extraluminal air, consider CT as deemed clinically warranted Interpreted by: Gm Herrera DO Preliminary Report By: Gm Herrera DO Electronically signed By Gm Herrera DO Dictated Date: 05/21/2022 12:05:52 PM Prelim Date: 05/21/2022 12:09:28 PM Sign Date: 05/21/2022 12:09:28 PM Ordering Provider: PAOLA GRAY [facility]12-08-2022 Note ORIGINAL EXAMINATION: ONE XRAY VIEW OF THE PELVIS 05/21/2022 12:03 pm COMPARISON: KUB earlier the same day. HISTORY: ORDERING SYSTEM PROVIDED HISTORY: Reason for Exam: abdominal pain, intraluminal gas bubble FINDINGS: There is a focus of air with multilobulated margins measuring 8 x 8 cm projecting at the mid to posterior pelvis. Additional mild gas and stool distension of the colon as well as mild gas distension of the small bowel is evident. No definite pneumoperitoneum. No definite osseous abnormality. Surgical changes are noted of the spine. Partially visible spinal stimulator battery pack and lead noted. IMPRESSION: Similar air projecting at the pelvis. It is uncertain if this is within the bowel or urinary bladder lumen. If there is concern for extraluminal air, consider CT as deemed clinically warranted Interpreted by: Gm Herrera DO Preliminary Report By: Gm Herrera DO Electronically signed By Gm Herrera DO Dictated Date: 05/21/2022 12:05:52 PM Prelim Date: 05/21/2022 12:09:28 PM Sign Date: 05/21/2022 12:09:28 PM Ordering Provider: PAOLA [facility]12-08-2022 Note ORIGINAL EXAMINATION: ONE SUPINE XRAY VIEW(S) OF THE ABDOMEN 05/21/2022 8:08 am COMPARISON: None. HISTORY: ORDERING SYSTEM PROVIDED HISTORY: Reason for Exam: Rule out Ileus Spinal scored stimulator placement yesterday, sharp lower abdominal pain FINDINGS: No dilated small bowel loops. Gaseous distension throughout the colon with moderate stool load on the right. 6.6 x 8.4 cm intraluminal gas bubble projects over the lower pelvis. A stimulator battery pack device projects over the right lower quadrant, stimulator lead terminating over the T8 vertebral body. Posterior fusion rods and screws at L5-S1. IMPRESSION: Gaseous distension throughout the colon may reflect adynamic ileus. Intraluminal gas bubble over the lower pelvis favored to be rectal over the urinary bladder. However this could relate to recent bladder instrumentation. Consider lateral pelvic radiographs for further evaluation. Interpreted by: Raghu Zacarias Preliminary Report By: Raghu Zacarias Electronically signed By Raghu Zacarias Dictated Date: 05/21/2022 11:16:01 AM Prelim Date: 05/21/2022 11:21:20 AM Sign Date: 05/21/2022 11:21:20 AM Ordering Provider: [facility]12-08-2022 Note ORIGINAL EXAMINATION: ONE SUPINE XRAY VIEW(S) OF THE ABDOMEN 05/21/2022 8:08 am COMPARISON: None. HISTORY: ORDERING SYSTEM PROVIDED HISTORY: Reason for Exam: Rule out Ileus Spinal scored stimulator placement yesterday, sharp lower abdominal pain FINDINGS: No dilated small bowel loops. Gaseous distension throughout the colon with moderate stool load on the right. 6.6 x 8.4 cm intraluminal gas bubble projects over the lower pelvis. A stimulator battery pack device projects over the right lower quadrant, stimulator lead terminating over the T8 vertebral body. Posterior fusion rods and screws at L5-S1. IMPRESSION: Gaseous distension throughout the colon may reflect adynamic ileus. Intraluminal gas bubble over the lower pelvis favored to be rectal over the urinary bladder. However this could relate to recent bladder instrumentation. Consider lateral pelvic radiographs for further evaluation. Interpreted by: Raghu Zacarias Preliminary Report By: Raghu Zacarias Electronically signed By Raghu Zacarias Dictated Date: 05/21/2022 11:16:01 AM Prelim Date: 05/21/2022 11:21:20 AM Sign Date: 05/21/2022 11:21:20 AM Ordering Provider: [facility]12-08-2022 Note Date of Service 05/21/2022 Chief Complaint Status post implantation of permanent spinal cord stimulator Subjective The patient was seen and examined. He is lying in bed. He has complaints of lower abdominal pain that has been present since waking up from surgery. He describes pain and cramping in the abdomen. He states he has not had a bowel movement or passed gas since surgery. He does have a Olivares placed. He denies any back pain. He denies any numbness tingling weakness. He denies any fever chills nausea vomiting. Objective Vitals and Measurements T: 36.8 C (Oral) TMIN: 36 C TMAX: 36.8 C (Oral) HR: 88(Apical) RR: 16 BP: 139/76 SpO2: 97% HT: 177.8 cm WT: 74.8 kg BMI: 23.66 Intake and Output 7AM Yesterday to 7AM Today Intake and Output (Last 24 hours) Intake Administration Information 936.82 Output Urine Voided 1650.00 Intra-Op EBL 10.00 Total Summary Total Intake 936.82 Total Output 1660.00 Fluid Balance -723.18 Physical Exam A&O, NAD, some discomfort from abdominal pain Regular rate and rhythm Clear to auscultation bilaterally NCAT, EOMI Dressing is clean dry and intact Abdomen: Minimal distention, minimal tenderness Extremities: Sensation and motor intact grossly without focal deficit, pulses and reflexes are normal and symmetric, no tenderness to palpation or edema Weight Current Weight Dosing Weight: 74.8 kg (05/20/22) Current Weight: 74.8 kg (05/20/22) Dosing Weight: 74.8 kg (05/20/22) Medications Medications (22) Active Scheduled: (11) bisacodyl 5 mg EC tablet 10 mg 2 tab(s), Oral, Once ceFAZolin 2 g, IV Piggyback, q8h dexamethasone 4 mg/1 mL solution 4 mg 1 mL, IV Push, q6hr docusate sodium 100 mg Capsule 100 mg 1 cap(s), Oral, BID docusate-senna (Senokot S) 50 mg-8.6 mg Tablet 2 tab(s), Oral, BID famotidine 20 mg tablet 20 mg 1 tab(s), Oral, qDay gabapentin 300 mg Capsule 300 mg 1 cap(s), Oral, qHS magnesium hydroxide 8% Suspension 30 mL UD 30 mL, Oral, Daily metoprolol tartrate 50 mg tablet 50 mg 1 tab(s), Oral, BID ondansetron 2 mg/ 1 mL 2 mL INJ 4 mg 2 mL, IV Push, q8h oxybutynin 5 mg Tablet 10 mg 2 tab(s), Oral, qDay Continuous: (0) PRN: (11) acetaminophen 325 mg Tablet 650 mg 2 tab(s), Oral, q4h acetaminophen 325 mg Tablet 650 mg 2 tab(s), Oral, q4h acetaminophen-HYDROcodone 325-5 mg tablet 1 tab(s), Oral, q4h diphenhydramine 25 mg tablet 25 mg 1 tab(s), Oral, q6h diphenhyDRAMINE 50 mg/mL (1 mL) INJ 25 mg 0.5 mL, IV Push, q6h melatonin 3 mg tablet 6 mg 2 tab(s), Oral, qHS morphine 4 mg/mL 1mL INJ 4 mg 1 mL, IV Push, q3h ondansetron 2 mg/ 1 mL 2 mL INJ 4 mg 2 mL, IV Push, q8h scopolamine 1.5 mg (1 mg / 72 hours patch) 1 patch(es), Transdermal, q72h sodium biphosphate-sodium phosphate 19 gm-7 gm Enema 133 mL, Rectal, qDay tiZANidine 4 mg tablet 2 mg 0.5 tab(s), Oral, TID Lab Results 05/20 14:12 WBC: 12.0 H Hgb: 14.6 Hct: 42.7 Platelet: 194 Neutrophil %: 94.7 H Glucose Level: 145 H Sodium Level: 139 Potassium Level: 4.0 BUN: 15 Creatinine Lvl (s): 0.91 05/20 07:34 Protime: 11.8 PT International Ratio: 1.0 EKG No qualifying data available. Assessment/Plan 1. Muscle spasm Had a lengthy discussion with the patient. At this point we will keep him n.p.o. and order abdominal x-rays to rule out ileus. No plan for discharge until his abdominal pain resolves. He agrees with the treatment plan. Otherwise continue orders as written 2. Diabetes mellitus 3. HTN (hypertension) 4. Sleep apnea 5. CAD (coronary artery disease) 6. Lumbar spondylosis Ordered: acetaminophen-hydrocodone, Dose = 1 tab(s), Oral, q6h, PRN for pain, X 7 day(s), # 28 tab(s), 0 Refill(s), Pharmacy: [facility]/pharmacy #[id number], Lumbar spondylosis, 177.8, cm, 05/20/22 7:02:00 EST, Height, 74.8 Orders: acetaminophen, Start: 05/20/22 12:05:00 EST, Dose = 650 mg, = 2 tab(s), Oral, q4h, PRN, TEMP greater than 38.6 degrees Celsius, 05/20/22 12:05:00 EST acetaminophen, Start: 05/20/22 12:05:00 EST, Dose = 650 mg, = 2 tab(s), Oral, q4h, PRN, Temperaturegreater than 38.6 degrees C, 05/20/22 12:05:00 EST acetaminophen-hydrocodone, Start: 05/20/22 12:05:00 EST, Dose = 1 tab(s), Tab, Oral, q4h, PRN, Pain, scale 4-6, 05/20/22 12:05:00 EST bisacodyl, Start: 05/21/22 9:00:00 EST, Dose = 10 mg, = 2 tab(s), Oral, Once, Stop: 05/21/22 9:00:00 EST, 05/21/22 9:00:00 EST ceFAZolin, Start: 05/20/22 16:00:00 EST, Dose= 2 g, IV Piggyback, q8h, Routine, 5 day(s), Stop date05/25/22 8:00:00 EST, Rate: 200 mL/hr, Infuse over: 30 minute(s), 100 mL, 05/20/22 10:05:00 EST dexamethasone, Start: 05/20/22 13:00:00 EST, Dose = 4 mg, = 1 mL, IV Push, q6hr, 24 hour(s), Stop: 05/21/22 7:00:00 EST, 0, 05/20/22 12:32:00 EST diphenhydrAMINE, Start: 05/20/22 12:05:00 EST, Dose = 25 mg, = 0.5 mL, IV Push, q6h, PRN, Itching, 05/20/22 12:05:00 EST diphenhydrAMINE, Start: 05/20/22 12:05:00 EST, Dose = 25 mg, = 1 tab(s), Oral, q6h, PRN, Itching, 05/20/22 12:05:00 EST docusate, Start: 05/20/22 20:00:00 EST, Dose = 100 mg, = 1 cap(s), Oral, BID, 05/20/22 12:05:00 EST docusate-senna, Start: 05/20/22 20:00:00 EST, Dose = 2 tab(s), Tab, Oral, BID, 05/20/22 12:05:00 EST famotidine, Start: 05/20/22 12:05:00 EST, Dose = 20 mg, = 1 tab(s), Oral, qDay, 05/20/22 12:05:00 EST magnesium hydroxide, Start: 05/20/22 12:05:00 EST, Dose = 30 mL, Susp-Oral, Oral, Daily, 05/20/22 12:05:00 EST ondansetron, Start: 05/21/22 16:00:00 EST, Dose = 4 mg, = 2 mL, IV Push, q8h, PRN, Nausea, 0, 05/21/22 12:05:00 EST ondansetron, Start: 05/20/22 16:00:00 EST, Dose = 4 mg, = 2 mL, IV Push, q8h, 3 dose(s), Stop: 05/21/22 8:00:00 EST, 05/20/22 12:05:00 EST scopolamine, Start: 05/20/22 12:05:00 EST, Dose = 1 patch(es), ER Film, Transdermal, q72h, PRN, Nausea/Vomiting, 05/20/22 12:05:00 EST sodium biphosphate-sodium phosphate, Start: 05/20/22 12:05:00 EST, Dose = 133 mL, Enema, Rectal, qDay, PRN, Constipation, 05/20/22 12:05:00 EST .Auto Differential .Neutro Absolute Antiembolism Stocking Application Thigh High Basic Metabolic Panel Call Parameters Call Parameters Call Parameters Change dressing Communication Order (continuous) Consult to Occupational Therapy Consult to Physical Therapy Consult to Physician Diet Order Discontinue Order Discontinue Order Discontinue Order Full Weight Bearing Hemovac drain Ice application Ice application Incentive Spirometer Intake and Output IV Catheter Insertion/Care Neurological Check NPO NPO Oxygen Administration Pulse Oximeter - Continuous Pulse Oximeter - Continuous Pulse Oximeter - Intermittent Sequential Compression Device Application Telemetry Monitoring Up to Chair Urinary Catheter Insertion/Care Vital Signs Vital Signs Weight Bearing as Tolerated XR Abdomen Series w/ Chest 1 View Digitally Signed by ROBBY BOSWELL DO on 05/21/2022 06:55 AM [facility]12-07-2022 Note ORIGINAL Images acquired, not reported on this accession number. [facility]12-07-2022 Note ORIGINAL Images acquired, not reported on this accession number.[facility]12-07-2022 Anesthesiology Consult note Patient: MERRICK HODGES Age: 76 years Sex: Male : 1945 Associated Diagnoses: None Author: JAKE GARCÍA APRN-PACKAGER Assessment Postanesthesia assessment Vitals: Vital signs from flowsheet : Vital Signs 05/20/2022 9:30 EST Heart Rate Monitored 70 bpm bpm Respiratory Rate - Anes 2 br/min br/min 05/20/2022 9:25 EST Respiratory Rate - Anes 2 br/min br/min 05/20/2022 9:20 EST Heart Rate Monitored 68 bpm bpm Respiratory Rate - Anes 9 br/min br/min Systolic Blood Pressure Non-Invasive 105 mmHg mmHg Diastolic Blood Pressure Non-Invasive 63 mmHg mmHg 05/20/2022 9:15 EST Temperature (Route Not Specified) 36 DegC DegC Heart Rate Monitored 65 bpm bpm Respiratory Rate - Anes 9 br/min br/min Systolic Blood Pressure Non-Invasive 102 mmHg mmHg Diastolic Blood Pressure Non-Invasive 59 mmHg mmHg 05/20/2022 9:10 EST Heart Rate Monitored 64 bpm bpm Respiratory Rate - Anes 9 br/min br/min Systolic Blood Pressure Non-Invasive 104 mmHg mmHg Diastolic Blood Pressure Non-Invasive 59 mmHg mmHg 05/20/2022 9:05 EST Heart Rate Monitored 63 bpm bpm Respiratory Rate - Anes 9 br/min br/min Systolic Blood Pressure Non-Invasive 101 mmHg mmHg Diastolic Blood Pressure Non-Invasive 59 mmHg mmHg 05/20/2022 9:00 EST Temperature (Route Not Specified) 36 DegC DegC Heart Rate Monitored 62 bpm bpm Respiratory Rate - Anes 9 br/min br/min Systolic Blood Pressure Non-Invasive 101 mmHg mmHg Diastolic Blood Pressure Non-Invasive 56 mmHg mmHg 05/20/2022 8:55 EST Heart Rate Monitored 60 bpm bpm Respiratory Rate - Anes 9 br/min br/min Systolic Blood Pressure Non-Invasive 101 mmHg mmHg Diastolic Blood Pressure Non-Invasive 58 mmHg mmHg 05/20/2022 8:50 EST Heart Rate Monitored 58 bpm bpm Respiratory Rate - Anes 9 br/min br/min Systolic Blood Pressure Non-Invasive 108 mmHg mmHg Diastolic Blood Pressure Non-Invasive 55 mmHg mmHg 05/20/2022 8:45 EST Temperature (Route Not Specified) 36 DegC DegC Heart Rate Monitored 58 bpm bpm Respiratory Rate - Anes 8 br/min br/min Systolic Blood Pressure Non-Invasive 124 mmHg mmHg Diastolic Blood Pressure Non-Invasive 60 mmHg mmHg 05/20/2022 8:40 EST Heart Rate Monitored 54 bpm bpm Respiratory Rate - Anes 9 br/min br/min Systolic Blood Pressure Non-Invasive 126 mmHg mmHg Diastolic Blood Pressure Non-Invasive 60 mmHg mmHg 05/20/2022 8:35 EST Heart Rate Monitored 51 bpm bpm Respiratory Rate - Anes 9 br/min br/min Systolic Blood Pressure Non-Invasive 118 mmHg mmHg Diastolic Blood Pressure Non-Invasive 62 mmHg mmHg 05/20/2022 8:30 EST Temperature (Route Not Specified) 36 DegC DegC Heart Rate Monitored 110 bpm bpm Respiratory Rate - Anes 9 br/min br/min Systolic Blood Pressure Non-Invasive 83 mmHg mmHg Diastolic Blood Pressure Non-Invasive 61 mmHg mmHg 05/20/2022 8:25 EST Heart Rate Monitored 58 bpm bpm Respiratory Rate - Anes 9 br/min br/min Systolic Blood Pressure Non-Invasive 91 mmHg mmHg Diastolic Blood Pressure Non-Invasive 56 mmHg mmHg 05/20/2022 8:20 EST Heart Rate Monitored 57 bpm bpm Respiratory Rate - Anes 8 br/min br/min Systolic Blood Pressure Non-Invasive 103 mmHg mmHg Diastolic Blood Pressure Non-Invasive 54 mmHg mmHg 05/20/2022 8:16 EST Systolic Blood Pressure Non-Invasive 110 mmHg mmHg Diastolic Blood Pressure Non-Invasive 58 mmHg mmHg 05/20/2022 8:15 EST Temperature (Route Not Specified) 36 DegC DegC Heart Rate Monitored 54 bpm bpm Respiratory Rate - Anes 7 br/min br/min Systolic Blood Pressure Non-Invasive 82 mmHg mmHg Diastolic Blood Pressure Non-Invasive 58 mmHg mmHg 05/20/2022 8:13 EST Systolic Blood Pressure Non-Invasive 67 mmHg mmHg Diastolic Blood Pressure Non-Invasive 43 mmHg mmHg 05/20/2022 8:12 EST Systolic Blood Pressure Non-Invasive 59 mmHg mmHg Diastolic Blood Pressure Non-Invasive 50 mmHg mmHg 05/20/2022 8:11 EST Systolic Blood Pressure Non-Invasive 134 mmHg mmHg Diastolic Blood Pressure Non-Invasive 114 mmHg mmHg 05/20/2022 8:10 EST Heart Rate Monitored 62 bpm bpm Respiratory Rate - Anes 8 br/min br/min 05/20/2022 8:05 EST Heart Rate Monitored 71 bpm bpm Respiratory Rate - Anes 12 br/min br/min Systolic Blood Pressure Non-Invasive 131 mmHg mmHg Diastolic Blood Pressure Non-Invasive 76 mmHg mmHg 05/20/2022 8:00 EST Respiratory Rate - Anes 9 br/min br/min Systolic Blood Pressure Non-Invasive 108 mmHg mmHg Diastolic Blood Pressure Non-Invasive 62 mmHg mmHg 05/20/2022 7:56 EST Systolic Blood Pressure Non-Invasive 99 mmHg mmHg Diastolic Blood Pressure Non-Invasive 56 mmHg mmHg 05/20/2022 7:55 EST Heart Rate Monitored 76 bpm bpm Respiratory Rate - Anes 12 br/min br/min Systolic Blood Pressure Non-Invasive 82 mmHg mmHg Diastolic Blood Pressure Non-Invasive 51 mmHg mmHg 05/20/2022 7:53 EST Systolic Blood Pressure Non-Invasive 101 mmHg mmHg Diastolic Blood Pressure Non-Invasive 55 mmHg mmHg 05/20/2022 7:50 EST Heart Rate Monitored 73 bpm bpm Respiratory Rate - Anes 0 br/min br/min Systolic Blood Pressure Non-Invasive 100 mmHg mmHg Diastolic Blood Pressure Non-Invasive 57 mmHg mmHg 05/20/2022 7:47 EST Systolic Blood Pressure Non-Invasive 153 mmHg mmHg Diastolic Blood Pressure Non-Invasive 64 mmHg mmHg 05/20/2022 6:34 EST Temperature Temporal Artery 36.2 DegC Peripheral Pulse Rate 59 bpm LOW Respiratory Rate 18 br/min Systolic Blood Pressure Non-Invasive 146 mmHg HI Diastolic Blood Pressure Non-Invasive 89 mmHg 05/20/2022 6:29 EST Temperature Temporal Artery 36.2 DegC Peripheral Pulse Rate 59 bpm LOW (Modified) , Measurements from flowsheet . Mental status: alert & oriented x 4. Respiratory function: respirations are non-labored. Respiratory support: none. CV function: Normal rate. Cardiovascular support: none. Pain. Nausea status: see nursing documentation of medications. Postoperative hydration status: within normal limits. Notes: dr boswell aware of pain level in abdomin Pt had a cath placed during the case. Digitally Signed by JAKE GARCÍA on 05/20/2022 09:41 AM Digitally Signed by JAKE GARCÍA on 05/20/2022 12:21 PM [facility]12-07-2022 Anesthesiology Consult note Patient: MERRICK HODGES Age: 76 years Sex: Male : 1945 Associated Diagnoses: None Author: JAKE GARCÍA Preoperative Information Time of last food or liquid consumption: 05/20/2022 00:00:00 Anesthesia history Patient's history: negative. Family's history: negative. Health Status Allergies: Allergic Reactions (Selected) NKA, Allergies (1) ActiveReaction NKANone Documented Current medications: (Selected) Inpatient Medications Ordered Demerol (PACU): 25 mg, 1 mL, IV Push, q5min, PRN: Pain, breakthrough Dilaudid: 0.25 mg, IV Push, q5min, PRN: Pain, scale 4-10 LR 1,000 mL: 100 mL/hr, Intravenous LR 1000 mL: 125 mL/hr, Intravenous, Stop: 05/21/22 17:59:00 EST LR 1000 mL: 20 mL/hr, Intravenous Naropin: 200 mg, 20 mL, Other, AsDirected Zofran ( PACU ): 4 mg, 2 mL, IV Push, AsDirected, PRN: Nausea/Vomiting albuterol 2.5 mg/3 mL (0.083%) inhalation solution: 2.5 mg, 3 mL, Inhalation, Once, PRN: sob prn Prescriptions Prescribed [place] 325- 5 mg oral tablet: 1 tab(s), Oral, q6h, for 7 day(s), PRN: for pain, 28 tab(s), 0 Refill(s) Documented Medications Documented Metoprolol Tartrate 50 mg oral tablet: 50 mg, 1 tab(s), Oral, BID Multivitamin: 1 tab(s), Oral, Daily, 0 Refill(s) amLODIPine 5 mg oral tablet: 5 mg, 1 tab(s), Oral, BID fosinopril 20 mg oral tablet: 20 mg, 1 tab(s), Oral, qDay gabapentin 300 mg oral capsule: 300 mg, 1 cap(s), Oral, qHS metFORMIN 500 mg oral tablet (IR): 500 mg, 1 tab(s), Oral, qDay rosuvastatin 10 mg oral capsule: 10 mg, 1 cap(s), Oral, qDay, Medications (8) Active Scheduled: (1) ropivacaine 1% 20 mL 200 mg 20 mL, Other, AsDirected Continuous: (3) Lactated Ringers 1,000 mL 1,000 mL, Intravenous, 100 mL/hr Lactated Ringers 1000 mL 1,000 mL, Intravenous, 125 mL/hr Lactated Ringers Infusion 1000 mL 1,000 mL, Intravenous, 20 mL/hr PRN: (4) albuterol 0.083% Soln UD (2.5mg/3 mL) 2.5 mg 3 mL, Inhalation, Once HYDROmorphone 0.25 mg, IV Push, q5min meperidine 25 mg/mL 1 mL 25 mg 1 mL, IV Push, q5min ondansetron 2 mg/ 1 mL 2 mL INJ 4 mg 2 mL, IV Push, AsDirected Problem list: Active Problems (7) Back pain CAD (coronary artery disease) Diabetes mellitus HTN (hypertension) FL (myocardial infarction) OA (osteoarthritis) Sleep apnea Histories Past Medical History: No active or resolved past medical history items have been selected or recorded. Family History: No family history items have been selected or recorded. Procedure history: Placement of stent in cardiac conduit ([id number]) in 2002 at 57 Years. Bypass graft, with other than vein; femoral-femoral ([id number]) in 1998 at 53 Years. Comments: 05/06/2022 9:08 Inessa Gage RN Left Spinal cord stimulation ([id number]). Comments: 05/06/2022 9:07 Inessa Gage RN trial History of lumbar spine surgery ([id number]). Comments: 05/06/2022 9:07 Inessa Gage RN x3 Social History Social & Psychosocial Habits Alcohol 05/06/2022 Use: Never Substance Abuse 05/06/2022 Use: Never Tobacco 05/06/2022 Tobacco Use: Former smoker, quit more Type: Cigarettes Number of years: 25 Stopped at age: 56 Years Home/Environment 05/06/2022 Domestic Concerns None Living situation: Home/Independent Primary Non Profit Director: Self Current Home Treatments None Special Services and Community Resources None Spouse Name Ayesha Marital Status of Patient if Patient Independent Adult: Nutrition/Health 05/06/2022 Type of diet: Diabetic, Regular Appetite Good Eating Difficulties None . Physical Examination Vital Signs 05/20/2022 8:15 EST Heart Rate Monitored 54 bpm bpm Respiratory Rate - Anes 7 br/min br/min Systolic Blood Pressure Non-Invasive 82 mmHg mmHg Diastolic Blood Pressure Non-Invasive 58 mmHg mmHg 05/20/2022 8:13 EST Systolic Blood Pressure Non-Invasive 67 mmHg mmHg Diastolic Blood Pressure Non-Invasive 43 mmHg mmHg 05/20/2022 8:12 EST Systolic Blood Pressure Non-Invasive 59 mmHg mmHg Diastolic Blood Pressure Non-Invasive 50 mmHg mmHg 05/20/2022 8:11 EST Systolic Blood Pressure Non-Invasive 134 mmHg mmHg Diastolic Blood Pressure Non-Invasive 114 mmHg mmHg 05/20/2022 8:10 EST Heart Rate Monitored 62 bpm bpm Respiratory Rate - Anes 8 br/min br/min 05/20/2022 8:05 EST Heart Rate Monitored 71 bpm bpm Respiratory Rate - Anes 12 br/min br/min Systolic Blood Pressure Non-Invasive 131 mmHg mmHg Diastolic Blood Pressure Non-Invasive 76 mmHg mmHg 05/20/2022 8:00 EST Respiratory Rate - Anes 9 br/min br/min Systolic Blood Pressure Non-Invasive 108 mmHg mmHg Diastolic Blood Pressure Non-Invasive 62 mmHg mmHg 05/20/2022 7:56 EST Systolic Blood Pressure Non-Invasive 99 mmHg mmHg Diastolic Blood Pressure Non-Invasive 56 mmHg mmHg 05/20/2022 7:55 EST Heart Rate Monitored 76 bpm bpm Respiratory Rate - Anes 12 br/min br/min Systolic Blood Pressure Non-Invasive 82 mmHg mmHg Diastolic Blood Pressure Non-Invasive 51 mmHg mmHg 05/20/2022 7:53 EST Systolic Blood Pressure Non-Invasive 101 mmHg mmHg Diastolic Blood Pressure Non-Invasive 55 mmHg mmHg 05/20/2022 7:50 EST Heart Rate Monitored 73 bpm bpm Respiratory Rate - Anes 0 br/min br/min Systolic Blood Pressure Non-Invasive 100 mmHg mmHg Diastolic Blood Pressure Non-Invasive 57 mmHg mmHg 05/20/2022 7:47 EST Systolic Blood Pressure Non-Invasive 153 mmHg mmHg Diastolic Blood Pressure Non-Invasive 64 mmHg mmHg 05/20/2022 6:34 EST Temperature Temporal Artery 36.2 DegC Peripheral Pulse Rate 59 bpm LOW Respiratory Rate 18 br/min Systolic Blood Pressure Non-Invasive 146 mmHg HI Diastolic Blood Pressure Non-Invasive 89 mmHg 05/20/2022 6:29 EST Temperature Temporal Artery 36.2 DegC Peripheral Pulse Rate 59 bpm LOW (Modified) Vital Signs(last 24 hrs) Last Charted Heart Rate [id number] bpm (MAY 20 08:15) Resp Rate 18 br/min (MAY 20 06:34) SBP82 mmHg (MAY 20 08:15) DBP58 mmHg (MAY 20 08:15) Measurements from flowsheet : Measurements 05/20/2022 6:34 EST Height 177.8 cm Height in inches 70 inch(es) Admission Weight 74.8 kg Weight Lbs 164.6 lb Current Weight 74.8 kg [place] Body Weight 73.00 kg Admission Body Mass Index 23.66 m2 Pain assessment: Pain Assessment 05/20/2022 6:34 EST Primary Pain Intensity 0 Pain Scale Type 0-10 Pain scale . General: Alert and oriented. Airway: Normal temporomandibular joint mobility, Normal mouth, Normal neck range of motion. Mallampati classification: III (soft palate, base of uvula visible). Dentition Evaluation: Denies loose/chipped teeth. Respiratory: Respirations are non-labored. Cardiovascular: Normal rate. Neurologic: Alert, Oriented. Review / Management Results review: No qualifying data available , Lab results 05/20/2022 8:23 EST SN - FL - Medication SEALANT 8ML SURGIFLOW 6/CA 2994 SN - [place] - Route of Administration Topical SN - [place] - By (Single) SN - [place] - By (Single) 05/20/2022 8:22 EST SN - [place] - Medication TOPICAL THROMBIN SN - [place] - Route of Administration Local SN - [place] - By (Single) SN - [place] - By (Single) 05/20/2022 8:20 EST SN - CTm - Surgery Start 05/20/2022 8:20 05/20/2022 8:20 EST SN - CAt - Case Attendee SN - CAt - Case Attendee SN - CAt - Role Performed Other 05/20/2022 8:15 EST Heart Rate Monitored 54 bpm bpm Respiratory Rate - Anes 7 br/min br/min Systolic Blood Pressure Non-Invasive 82 mmHg mmHg Diastolic Blood Pressure Non-Invasive 58 mmHg mmHg Oxygen Saturation 100 % % Set Rate Anes 8 br/min br/min 05/20/2022 8:13 EST Systolic Blood Pressure Non-Invasive 67 mmHg mmHg Diastolic Blood Pressure Non-Invasive 43 mmHg mmHg 05/20/2022 8:12 EST Systolic Blood Pressure Non-Invasive 59 mmHg mmHg Diastolic Blood Pressure Non-Invasive 50 mmHg mmHg 05/20/2022 8:11 EST Systolic Blood Pressure Non-Invasive 134 mmHg mmHg Diastolic Blood Pressure Non-Invasive 114 mmHg mmHg 05/20/2022 8:10 EST Heart Rate Monitored 62 bpm bpm Respiratory Rate - Anes 8 br/min br/min Oxygen Saturation 100 % % Set Rate Anes 8 br/min br/min 05/20/2022 8:05 EST Heart Rate Monitored 71 bpm bpm Respiratory Rate - Anes 12 br/min br/min Systolic Blood Pressure Non-Invasive 131 mmHg mmHg Diastolic Blood Pressure Non-Invasive 76 mmHg mmHg Oxygen Saturation 100 % % Set Rate Anes 8 br/min br/min 05/20/2022 8:00 EST Respiratory Rate - Anes 9 br/min br/min Systolic Blood Pressure Non-Invasive 108 mmHg mmHg Diastolic Blood Pressure Non-Invasive 62 mmHg mmHg Oxygen Saturation 100 % % cefazolin 2 gram(s) gram(s) Sodium Chloride 0.9% 100 mL mL Set Rate Anes 8 br/min br/min 05/20/2022 7:56 EST Systolic Blood Pressure Non-Invasive 99 mmHg mmHg Diastolic Blood Pressure Non-Invasive 56 mmHg mmHg 05/20/2022 7:55 EST Heart Rate Monitored 76 bpm bpm Respiratory Rate - Anes 12 br/min br/min Systolic Blood Pressure Non-Invasive 82 mmHg mmHg Diastolic Blood Pressure Non-Invasive 51 mmHg mmHg Oxygen Saturation 100 % % Set Rate Anes 12 br/min br/min 05/20/2022 7:53 EST Systolic Blood Pressure Non-Invasive 101 mmHg mmHg Diastolic Blood Pressure Non-Invasive 55 mmHg mmHg 05/20/2022 7:52 EST SN - CAt - Case Attendee SN - CAt - Case Attendee SN - CAt - Role Performed 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 05/20/2022 7:52 EST SN - [place] - Medication MARCAINE BUPIVACAINE 0.25% 30ML SN - [place] - Route of Administration Local SN - [place] - By (Single) SN - [place] - By (Single) 05/20/2022 7:51 EST SN - XI - X-Ray Type C-Arm 05/20/2022 7:50 EST SN - Proc - Anesthesia Type General SN - Proc - Actual Procedure THORACIC 9-THORACIC 10 LAMINECTOMY, IMPLANTATION OF PERMANENT SPINAL CORD STIMULATOR LEAD AND GENERATOR 05/20/2022 7:50 EST SN - SP - Prep Agents Betadine Scrub, Betadine Solution SN - SP - Prep Agents Alcohol SN - SP - HR - Method N/A SN - SP - HR - Method N/A 05/20/2022 7:50 EST Heart Rate Monitored 73 bpm bpm Respiratory Rate - Anes 0 br/min br/min Systolic Blood Pressure Non-Invasive 100 mmHg mmHg Diastolic Blood Pressure Non-Invasive 57 mmHg mmHg Oxygen Saturation 100 % % 05/20/2022 7:49 EST SN - PP - Body Position Prone Erick/Spinal Standard Intra-op 05/20/2022 7:47 EST SN - PTCare - Anti-thromboembolism Tricia Sequential Compression Device (SCD) 05/20/2022 7:47 EST SN - Assess - LOC Alert, Awake SN - Assess - Orientation Follows simple commands, Oriented X 3 SN - Assess - Post-op Skin Integrity Intact/Dry 05/20/2022 7:47 EST SN - CAt - Case Attendee SN - CAt - Case Attendee SN - CAt - Role Performed Skip Miner Blasting 2 05/20/2022 7:47 EST Systolic Blood Pressure Non-Invasive 153 mmHg mmHg Diastolic Blood Pressure Non-Invasive 64 mmHg mmHg 05/20/2022 7:41 EST SN - GCD - Post-operative Diagnosis SPINAL STENOSIS LUMBAR REGION WITHOUT NEUROGENIC CLAUDICATION SN - GCD - Case Level Level 4 05/20/2022 7:41 EST SN - Cul - Culture Type No Specimen per Surgeon 05/20/2022 7:36 EST SN - TDC - Device Type TRAY OLIVARES 5CC 16F SILICONE LF 10/CA [id number] SN - TDC - Location BLADDER 05/20/2022 7:36 EST Lactated Ringers Injection 1,000 mL mL 05/20/2022 7:30 EST SN - CAt - Case Attendee SN - CAt - Case Attendee SN - CAt - Case Attendee SN - CAt - Case Attendee SN - CAt - Role Performed Other SN - CAt - Role Performed Other 05/20/2022 7:28 EST SN - CAt - Case Attendee SN - CAt - Case Attendee SN - CAt - Case Attendee SN - CAt - Case Attendee SN - CAt - Case Attendee SN - CAt - Case Attendee SN - CAt - Case Attendee SN - CAt - Case Attendee SN - CAt - Case Attendee SN - CAt - Case Attendee SN - CAt - Role Performed Primary Surgeon SN - CAt - Role Performed PACKAGER SN - CAt - Role Performed Skip Miner Blasting 1 SN - CAt - Role Performed Scrub 1 SN - CAt - Role Performed Deliverer Merchandise 1 05/20/2022 7:19 EST Patient Instructions Documentation Patient Instructions Documentation 05/20/2022 6:34 EST Blood Glucose, Capillary 106 mg/dL Height 177.8 cm Height in inches 70 inch(es) Admission Weight 74.8 kg Weight Lbs 164.6 lb Current Weight 74.8 kg [place] Body Weight 73.00 kg Admission Body Mass Index 23.66 m2 Temperature Temporal Artery 36.2 DegC Peripheral Pulse Rate 59 bpm LOW Respiratory Rate 18 br/min Systolic Blood Pressure Non-Invasive 146 mmHg HI Diastolic Blood Pressure Non-Invasive 89 mmHg Primary Pain Intensity 0 Pain Scale Type 0-10 Pain scale Heart Sounds ICU [id number] Heart Rhythm Irregular Dorsalis Pedis Pulse, Left 2+ Normal Dorsalis Pedis Pulse, Right 2+ Normal Respirations Unlabored Respiratory Pattern Regular All Lobes Breath Sounds Clear, Equal Oxygen Therapy Room air Oxygen Saturation 98 % Abdomen Description Non-distended, Soft Abdomen Palpation Non-Tender Bowel Continence Continent Bowel Sounds All Quadrants Present Urinary Elimination Voiding, no difficulties Skin Temperature Warm Skin Description Normal for ethnicity, Dry Skin Integrity Intact Skin Moisture General Dry Extremity Movement Equal Characteristics of Speech Clear Level of Consciousness Alert ELOISA Yes Strength All Extremities Strong Tone All Extremities Normal Sensation All Extremities Intact Left Upper Extremity Sensation Intact Right Upper Extremity Sensation Intact Left Lower Extremity Sensation Intact Right Lower Extremity Sensation Intact Affect/Behavior Appropriate, Calm, Cooperative Orientation Oriented x 4 Allergies Yes Consent Form Signed Yes Patient Dressed In Hospital gown Pre-op Preparation Dentures, upper removed, Dentures, lower removed CHG Preoperative Wash/Wipe Night before procedure, Day of procedure, Site specific wipe CHG Skin Prep Completed for Eligible Surgery History & Physical Update On Chart Yes History & Physical On Chart Yes Obstructive Sleep Apnea Assess Completed Yes Orientation Assessment Oriented x 4 Belongings At Bedside Cell phone, Dentures, lower, Dentures, upper, Glasses, Pants, Shirt, Shoes Activity Status ADL Ambulating in ibrahim, Ambulating in room, Awake Assistive Device None SCD On/Re-applied bilateral knee high NPO Status Maintained Standard Safety ID band on, Call device within reach, Bed in low position, Wheels locked Demonstrates Correct Call Light Use Yes Blood Band on and Verified No Patient ID Band on and Verified Yes Implants Verified Yes Pacemaker/AICD Verified Yes Anesthesia Consent Signed Yes Blood Consent Signed Yes Last Fluid Intake 05/20/2022 5:00 Last Food Intake 05/19/2022 20:00 05/20/2022 6:29 EST Temperature Temporal Artery 36.2 DegC Peripheral Pulse Rate 59 bpm LOW (Modified) Oxygen Saturation 98 % (Modified) Infectious Disease Symptoms Patient states no symptoms Safety Brochure Information Reviewed Yes [facility] Video Viewed No Teaching Evaluation Verbalizes/Nonverbally indicates understanding Admission Note-Nursing Same Day Patient History (Modified) 05/20/2022 6:26 EST SN - Preop - CTm Pt in SDS Room 05/20/2022 6:17 . Assessment and Plan [employer] (ASA) physical status classification: Class III. Anesthetic Preoperative Plan Anesthetic technique: General. Informed consent: signed by patient. Digitally Signed by JAKE GARCÍA on 05/20/2022 08:25 AM [facility]12-07-2022 Note Date of Service 05/20/2022 Chief Complaint Status post implantation of permanent spinal cord stimulator Subjective The patient was seen and examined postoperatively in the PACU. He is resting comfortably. His pain is controlled. He has no complaints including numbness tingling or weakness Objective Vitals and Measurements T: 36.2 C (Temporal Artery) HR: 59 RR: 18 BP: 146/89 SpO2: 98% HT: 177.8 cm WT: 74.8 kg WT: 74.8 kg Intake and Output 7AM Yesterday to 7AM Today Intake and Output (Last 24 hours) Intake Output Total Summary Total Intake 0.00 Total Output 0.00 Fluid Balance 0.00 Physical Exam A&O, NAD NCAT, EOMI Regular rate and rhythm Clear to auscultation bilaterally Dressing clean dry and intact Abdomen soft and nontender Extremities: Sensation and motor intact grossly without focal deficit, pulses and reflexes are normal and symmetric, no tenderness to palpation or edema Weight Current Weight Dosing Weight: 74.8 kg (05/20/22) Current Weight: 74.8 kg (05/20/22) Medications Medications (5) Active Scheduled: (3) ceFAZolin 2 gram(s), IV Piggyback, PREOP pharm Lactated Ringers Injection 1000 mL * Bolus * 1,000 mL, IV Bolus, PREOP pharm ropivacaine 1% 20 mL 200 mg 20 mL, Other, AsDirected Continuous: (2) Lactated Ringers 1,000 mL 1,000 mL, Intravenous, 100 mL/hr Lactated Ringers 1000 mL 1,000 mL, Intravenous, 125 mL/hr PRN: (0) Lab Results No 36 Hour Lab Data EKG No qualifying data available. Assessment/Plan Orders: Lactated Ringers Infusion 1,000 mL, Start: 05/20/22 6:18:00 EST, Rate: 100 mL/hr, 05/20/22 6:18:00 EST Lactated Ringers Infusion 1000 mL, Start: 05/20/22 6:00:00 EST, 18 hour(s), Stop date 05/21/22 17:59:00 EST, Rate: 125 mL/hr Antiembolism Stocking Application Thigh High Blood Glucose Monitoring POC Communication Order (scheduled) IV Catheter Insertion/Care NPO Sequential Compression Device Application Sign Consent Surgical Shave Preparation Okay to admit to floor See orders Discharge planning likely home tomorrow Digitally Signed by ROBBY BOSWELL DO on 05/20/2022 09:45 AM [facility]04-01-2022 Evaluation note* Diagnosis Onset Date Resolution Status Fatigue acute [id number] chronic Essential hypertension chron ic Hyperlipidemia chronic Peripheral arterial disease chronic Stented coronary artery September, [facility] Work Phone: [phone]) 506-455304-01-2022 Evaluation note* Diagnosis Onset Date Resolution Status Fatigue acute [id number] chronic Essential hypertension chron ic Hyperlipidemia chronic Peripheral arterial disease chronic Stented coronary artery September, [facility] Peripheral arterial disease [facility] Work Phone: Consult note Author Dangelo Price [facility] Note Date/Time October 02, 2024 9:5 0am [facility] Medical Records Department [address] [place] [address] Anesthesia Postop Eval I 10/02/24 0948 MR#: [id number] Acct: [id number] Name: MERRICK HODGES Rep #:[id number] : 1945 78 From: Dangelo vidal CRNA PCP: Dr. Sehll Siddiqui MD Status:REG SDC Y Race: C Location: [address] Anesthesia: Postop Eval I Current Vital Signs Temperature: 98.2 F Pulse Rate: 55 Blood Pressure: 114/67 Respiratory Rate: 18 Pulse Ox: 94 Oxygen Delivery Method: Room Air Assessment Airway patent: Yes Spontaneous unlabored respirations: Yes Mental status: Calm nausea: No Vomiting: No Anesthesia Complication: No Fluid Hydration Crystalloid volume administer (ml): 0 Total IV fluid infused: 0 Progress Note Anesthesia document: Postop Eval 1 completed: Yes 10/02/24 0950 <Electronically signed by Dangelo varner PACKAGER> Date _ Dangelo Price PACKAGER Cosigner Signature: Date CC: ~ Signed [facility] Work Phone: Consult note Author Kin andreina [facility] Note Date/Time October 02, 2024 10: 31am [facility] Medical Records Department [address] [place] [address] Anesthesia Postop Eval II 10/02/24 1000 MR#: [id number] Acct: [id number] Name: HODGESMERRICK VERONA Rep #:[id number] : 1945 78 From: Kin Box MD PCP: Dr. Shell Siddiqui MD Status:REG SDC Y Race: C Location: [place] [address] Anesthesia Postop Eval I Sum Postop Eval Completion status Anesthesia document: Postop Eval 1 completed: Yes Anesthesia Postop Eval I Summary Anesthesia Postop Eval I Summary: Anesthesia Postop Eval I: Assessment Summary Airway patent Yes 10/02/24 09:50 [email or web address] Spontaneous unlabored Yes 10/02/24 09:50 [email or web address] respirations Mental status Calm 10/02/24 09:50 [email or web address] nausea No 10/02/24 09:50 [email or web address] Vomiting No 10/02/24 09:50 [email or web address] Anesthesia Postop Eval I: Fluid Summary Crystalloid volume administer 0 10/02/24 09:50 [email or web address] (ml) Colloids volume administered ( ml) Blood Product volume administered (ml) Total IV fluid infused 0 10/02/24 09:50 [email or web address] Anesthesia Postop Eval I: Summary Notes Anesthesia Complication No 10/02/24 09:50 [email or web address] Anesthesia Complication Comment: Post-operative progress note Anesthesia: Postop Eval II Evaluation Mental status: Awake Pain Level: 2 nausea: No Vomiting: No 10/02/24 1000 <Electronically signed by Kin Box MD > Date _ Kin Box MD Cosigner Signature: Date CC: ~ Signed [facility] Work Phone: Evaluation + Plan note Future Appointments [facility] Evaluation noteNo assessment information available [facility] Work Phone: Evaluation note* Diagnosis Onset Date Resolution Status Fatigue acute Palpitations acute [id number] chronic Essential hypertension chron ic Hyperlipidemia chronic Peripheral arterial disease chronic Stented coronary artery September, [facility] Work Phone: Evaluation note* Diagnosis Onset Date Resolution Status Fatigue acute Palpitations acute [id number] chronic Essential hypertension chron ic Hyperlipidemia chronic Peripheral arterial disease chronic Stented coronary artery September, [facility] Fatigue acute Palpitations acute [id number] chronic Essential hypertension chron ic Hyperlipidemia chronic Peripheral arterial disease chronic Stented coronary artery September, [facility] Work Phone: Evaluation note* Diagnosis Onset Date Resolution Status Fatigue acute Palpitations acute [id number] chronic Essential hypertension chron ic Hyperlipidemia chronic Peripheral arterial disease chronic Stented coronary artery September, [facility] Fatigue acute Palpitations acute [id number] chronic Essential hypertension chron ic Hyperlipidemia chronic Peripheral arterial disease chronic Stented coronary artery September, [facility] Fatigue acute [id number] chronic Essential hypertension chron ic Hyperlipidemia chronic Peripheral arterial disease chronic Stented coronary artery September, [facility] Work Phone: Evaluation note* Diagnosis Onset Date Resolution Status Fatigue acute Palpitations acute [id number] chronic Essential hypertension chron ic Hyperlipidemia chronic Peripheral arterial disease chronic Stented coronary artery September, [facility] Fatigue acute [id number] chronic Essential hypertension chron ic Hyperlipidemia chronic Peripheral arterial disease chronic Stented coronary artery September, [facility] Work Phone: Evaluation note* Diagnosis Onset Date Resolution Status [id number] chronic Chronic back pain chronic Essential hypertension chron ic Peripheral arterial disease chronic Immunization due noneactive Establishing care with new doctor, encounter for noneactive Controlled type 2 diabetes mellitus noneactive Lower abdominal pain noneact mary [facility] Work Phone: Evaluation note* Diagnosis Onset Date Resolution Status [id number] chronic Chronic back pain chronic Essential hypertension chron ic Peripheral arterial disease chronic Immunization due noneactive Establishing care with new doctor, encounter for noneactive Controlled type 2 diabetes mellitus noneactive Lower abdominal pain noneact mary [id number] chronic Chronic back pain chronic Essential hypertension chron ic Peripheral arterial disease chronic Controlled type 2 diabetes mellitus noneactive Lower abdominal pain noneact mary Lower abdominal pain noneact mary [facility] Work Phone: Evaluation note* Diagnosis Onset Date Resolution Status [id number] chronic Chronic back pain chronic Essential hypertension chron ic Peripheral arterial disease chronic Controlled type 2 diabetes mellitus noneactive Lower abdominal pain noneact mary Lower abdominal pain noneact mary [id number] chronic Chronic back pain chronic Essential hypertension chron ic Peripheral arterial disease chronic Bloating noneactive Controlled type 2 diabetes mellitus noneactive Essential hypertension chron ic Hyperlipidemia chronic Peripheral arterial disease [facility] Work Phone: Evaluation note* Diagnosis Onset Date Resolution Status Lower abdominal pain noneact mary [id number] chronic Chronic back pain chronic Essential hypertension chron ic Peripheral arterial disease chronic Bloating noneactive Controlled type 2 diabetes mellitus noneactive Essential hypertension chron ic Hyperlipidemia chronic Peripheral arterial disease chronic [id number] chronic Chronic back pain chronic Essential hypertension chron ic Peripheral arterial disease chronic Bloating noneactive Controlled type 2 diabetes mellitus noneactive [facility] Work Phone: Evaluation note* Diagnosis Hearing loss, unspecified hearing loss type, unspecified laterality- [facility] Onset Date Resolution Status Essential hypertension chron ic Hyperlipidemia chronic Peripheral arterial disease chronic [id number] chronic Chronic back pain chronic Essential hypertension chron ic Peripheral arterial disease chronic Bloating noneactive Controlled type 2 diabetes mellitus noneactive [id number] chronic Chronic back pain chronic Essential hypertension chron ic Peripheral arterial disease chronic Immunization due noneactive Bloating noneactive Controlled type 2 diabetes mellitus noneactive Thoracic back pain noneactiv e [id number] chronic Chronic back pain chronic Essential hypertension chron ic Peripheral arterial disease chronic Hearing loss noneactive Bloating noneactive Prediabetes noneactive Thoracic back pain noneactiv e [facility] Work Phone: Evaluation note* Diagnosis Sensorineural hearing loss, bilateral- [facility] Diagnosis Sensorineural hearing loss, bilateral- Primary Hearing loss, unspecified hearing loss type, unspecified laterality [facility] Diagnosis Onset Date Resolution Status [id number] chronic Chronic back pain chronic Essential hypertension chron ic Peripheral arterial disease chronic Hearing loss noneactive Bloating noneactive Prediabetes noneactive Thoracic back pain noneactiv e [id number] chronic Chronic back pain chronic Essential hypertension chron ic Peripheral arterial disease chronic Hearing loss noneactive Umbilical hernia without men tion of obstruction or gangrene noneactive Bloating noneactive Prediabetes noneactive Thoracic back pain noneactiv e Acid reflux acute Umbilical hernia acute Bloating noneactive Fatigue acute Essential hypertension chron ic Hyperlipidemia chronic Peripheral arterial disease chronic [facility] Work Phone: Evaluation note* Diagnosis Onset Date Resolution Status [id number] chronic Chronic back pain chronic Essential hypertension chron ic Peripheral arterial disease chronic Hearing loss noneactive Umbilical hernia without men tion of obstruction or gangrene noneactive Bloating noneactive Prediabetes noneactive Thoracic back pain noneactiv e Acid reflux acute Umbilical hernia acute Bloating noneactive Fatigue acute Essential hypertension chron ic Hyperlipidemia chronic Peripheral arterial disease chronic [facility] Work Phone: Evaluation note* Diagnosis Acute cough- [facility] Acute [facility] Alexandr [facility] August 26, 2023 8:24am Note Date/Time August 26, 2023 8:2 4am [facility] Medical Records Department [address] [place] [address] History & Physical Exam 08/26/23 08 MR#: [id number] Acct: [id number] Name: MERRICK HODGES Rep #:[id number] : 1945 77 From: Alexandr Dozier PCP: Dr. Shell Siddiqui MD Status:[facility] Location: [place] [address] History and Physical Date of Admission: 08/26/23 Date of Service: 07/27/23 MR#: [id number] Acct: [id number] Name: MERRICK HODGES Rep #: [id number] : 1945 Provider: Dr. Alexandr Hopkins MD Age/Sex: 77/M Location: [facility] Status: Signed Intake Vital Signs 07/14/2408:48 07/27/2413:25 Height 5 ft 10 in 5 ft 10 in Weight: 169 lb 6 oz 173 lb BMI 24.3 24.8 BP 120/72 135/78 H Blood Pressure Location Lt brachial Lt brachial Position Sitting Sitting Respiration 16 17 Pulse 81 72 Pulse Source Monitor Monitor Temp 97.3 F L 96.7 F L Temp Source Temporal Temporal Pulse Oximetry (%) 97 100 Oxygen Delivery Method room air room air Intake Visit Reasons: Umbilical Hernia Chief Complaint: umbilical hernia Is patient in pain?: No Allergies atorvastatin [From Lipitor] Adverse Reaction (Intermediate, Verified 07/27/23 14:26) Myalgias Medications amlodipine 5 mg tablet 5 mg PO BID 04/16/17 [History Confirmed 07/27/23] fosinopril 20 mg tablet 20 mg PO DAILY 04/16/17 [History Confirmed 07/27/23] multivitamin 1 tab PO DAILY 04/16/17 [History Confirmed 07/27/23] aspirin 81 mg tablet,delayed release (Adult Aspirin Regimen) 81 mg PO QDAY 01/06/18 [History Confirmed 07/27/23] rosuvastatin 10 mg tablet 10 mg PO DAILY 10/17/21 [History Confirmed 07/27/23] metoprolol tartrate 50 mg tablet 50 mg PO BID #60 tabs 04/27/22 [Rx Confirmed 07/27/23] clopidogrel 75 mg tablet See Rx Instructions .Route .COMPLEX #90 tabs 09/07/22 [Rx Confirmed 07/27/23] psyllium husk 3.4 gram/5.4 gram oral powder (Metamucil) 1 tbsp PO DAILY #660 grams 11/03/22 [Rx Confirmed 07/14/23] rifaximin 550 mg tablet 550 mg PO TID #42 tabs 07/14/23 [Rx Confirmed 07/14/23] pantoprazole 40 mg tablet,delayed release (Protonix) 40 mg PO DAILY #30 tabs 07/27/23 [Rx Confirmed 07/27/23] PFSH Medical History 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 Chronic back pain Essential hypertension History of non-ST elevation myocardial infarction (NSTEMI) Hyperlipidemia Hypertension Lumbar stenosis NSVT (nonsustained ventricular tachycardia) Overweight (BMI 25.0-29.9) Peripheral arterial disease Prinzmetal angina Type 2 diabetes mellitus Surgical History H/O bilateral cataract extraction History of back surgery History of left heart catheterization (~04/02/22) S/P femoral-femoral bypass surgery Spinal cord stimulator status Stented coronary artery (~09/21/03) Family History Father , of cancer Myocardial infarction, Onset Age: 70 Cancer kidneyMother , age 66 Bleeding in brain due to brain aneurysmBrother Myocardial infarction, Onset Age: 62 CAD (coronary artery disease) Social History household members: spouse current occupational status: employed current occupation: [employer] Smoking Status: Former smoker quit date: 06/14/01 pack-years: 20 Electronic Cigarette Use: not used how long ago did patient quit smokin alcohol intake: never substance use type: does not use do you feel safe at home: Yes HPI HPI HPI: Patient is a 77-year-old male who presents for evaluation of a new umbilical hernia as well as complaints of greater than a year of bloating. Patient statesthat he has had CT, x-rays, and a colonoscopy but no cause has been identified for his bloating symptoms. He shares that the colonoscopy was his most recent testing in May of last year and he was found to have diverticulosis and advised to simply eat more fiber. He flatly states that he is not sure how muchmore time he has of this life but he wants to live it better than he is now. Henotes that the bloating seems to be worse after eating supper. He also identifies May 2022 at the time which his symptoms began. He shares he wasrecovering from the placement of a spinal cord stimulator when he experienced urinary retention and required a Olivares catheter placement. Following this eventhe believes that is when his symptoms began. He notes that his expected 1 day hospital stay was protracted to 5 days and ever since that time he has had difficulty. He notes that in addition to the bloating he does have some pain around his bellybutton. 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 He statesthat he follows up with Dr. Chávez of vascular surgery and was told in May that he should be reevaluated in 6 months for possible cleanout of this bypassgraft. Mr. Hodges denies any associated symptoms of nausea or vomiting. He also denies any regular belching or gas. He does complain and remarks that his reflux has been worse in recent months. He shares that he must get up a lot in the middle the night because of the symptoms. He estimates the frequency to curve 3-4 times per week. He is simply taking [id number] Tums when he experiences the symptoms and denies any use of PPI medication. He denies any experience of heartburn. His caffeine intake is limited to 1 cup of coffee daily. He notes that he otherwise drinks some pop but this is always caffeine and sugar-free. Mr. Hodges has a history of a diabetes diagnosis but lost 18 pounds last year after completely cutting out sugar and this has led him to managing this disease without a medication requirement. Mr. Hodges states that he normally takes dinner at 7 PM but does not retire to bed until approximately 11 PM each night. He does not regularly prop his head other than using a pillow. Mr. Hodges confirms that the finding of a new umbilical hernia was an incidental finding during CT imaging for his complaints of bloating. Is also apparent that he underwent gastric emptying evaluation January 2023 which was read as abnormal and slow. ROS General General: Yes fatigue; No weight change, appetite, colon cancer, breast cancer or weakness HEENT HEENT: No difficulty swallowing, eye injury, eye surgery, swollen glands or hoarseness Endo Endocrine: Yes diabetes mellitus; No thyroid disease, thyroid cancer, Hair loss, heat intolerance or cold intolerance Skin Skin: No rash or changing moles Musc Musculoskeletal: Yes back problems and arthritis; No rheumatoid arthritis, gout or joint pain Cardio Cardiovascular: Yes high blood pressure and heart stent; No murmur, pacemaker, heart disease, atrial fibrillation, heart attack, palpitations, shortness of breat with exertion or chest pain Psych Psychiatric: No depression, anxiety or hearing voices Resp Respiratory: No shortness of breath, No sleep apnea, No cough, No COPD, No asthma, No emphysema and No wheezing Gastro Gastrointestinal: Yes abdominal pain, No nausea or vomiting, No diarrhea, No constipation, No blood in stool, No acid reflux, No hemorrhoids, No ulcers, No gallbladder problem and No black,tarry stools Artie Hematologic: Yes blood thinners, No blood disorders, No bleeding, No anemia and No blood clots Neuro Neurologic: No system reviewed and no additional complaints, except as documented, No as per HPI, No abnormal gait, No abnormal hearing, No abnormal movements, No abnormal speech, No behavioral changes, No burning sensations, No confusion, No convulsions, No disequilibrium, No dizziness, No localized weakness, No frequent falls, No headache(s), No lack of coordination, No loss ofvision, No memory loss, No numbness, No other visual disturbances, No radicular pain, No restless legs, No sensory deficit, No syncope, No tingling, No tremor(s), No weakness and No other Exam Const General: cooperative and anxious Orientation: alert, awake and oriented x3 Resp Effort & Inspection: normal respiratory effort GI Other: Nondistended, soft, mildly tender to palpation over the right-sided abdominal quadrants. Umbilical hernia is readily visible, however when it is palpated andappears to contain a soft tuft of fatty tissue that is at least partially reducible. Patient describes some sharp pain when traction is placed on these hernia contents. He denies this pain has been the pain that he experiences in association with his abdominal bloating. Assessment and Plan Assessment and Plan (1) Umbilical hernia: Status: Acute Comment: This is a 77-year-old male with an incidental finding of umbilical hernia that measures 7 mm x 8 mm on recent CTA imaging. It shows that it contains a small tuft of fat. Indeed, on exam patient has some fatty tissue within this hernia that is soft and at least partially reducible. While he has some sharp discomfort with this exam it is not the same discomfort of which he complains inassociation with his bloating. Therefore, I find it unlikely that his symptoms are arising from his hernia and given its small size and is otherwise significant medical risk do not see a benefit in pursuing operative repair of this hernia at this time. This impression was clearly shared with Mr. Hodges. Plan: Watchful waiting/surveillance of umbilical hernia (2) Acid reflux: Status: Acute Comment: Patient with progressive symptoms which she finds distressing 3-4 times per week. He is not presently on any PPI medication. He takes Tums symptomatically. With his progressive reflux and bloating complaints I find hishistory somewhat suspicious for possible H. pylori or dyspepsia. Therefore, I have recommended we pursue EGD with biopsy. Mr. oHdges is receptive of thisrecommendation as he is eager to find out the cause for the symptoms as described in his HPI. He will need to have his Plavix held for 5 days in anticipation of his procedure. We will look for approval to hold this antiplatelet. In the interim, I have advised him to begin PPI medication since it is likely going to be a month or so until we are able to pursue an EGD. Plan: ? EGD with biopsy (will hold Plavix with permission) ? Begin Protonix 40 mg daily x 30 days (3) Bloating: Plan: EGD as above Orders: Orders EGD 08/26/23 Medications: Refilled pantoprazole (Protonix) 40 mg PO DAILY 30 tabs 3RF I have examined the patient the following changes are noted: Mr. Hodges presents today with his family. He shares that the Protonix that he started following our visit has been efficacious in reducing his reflux symptoms. He confesses that he does remain bloated. He otherwise denies any new diagnoses, but did meet with cardiology recently and plans are to proceed with a pharmacologic stress test (since he is unable to physically complete the stress test due to arthritic pains). He denies any new chest pain or shortness of breath, however. Will now proceed for EGD as discussed above. 08/26/[id number] <Electronically signed by Alexandr Hopkins MD> Cosigner Signature (if applicable): CC: Dr. Shell Siddiqui MD; Dr. Alexandr Hopkins MD~ Signed [facility] Work Phone: Hospital course Narrative No data available for this section [facility] Discharge instructions No data available for this section [facility] Discharge instructionsAmbulatory Orders* Gastroenterology Location: None Selected [facility] Work Phone: Instructions* Name Dates Details How to Access Health Informa tion Online using Patient Portal and [employer] Indication:Non-smoker Start:31-Oct-2020 Instruction Type:Patient Education Patient Instructions Indication:Non-smoker Start:31-Oct-2020 Instruction Type:Provider Instructions for Treatment Patient Instructions Indication:BMI 30.0-30.9,adult Start:15-Aug-2020 Instruction Type:Provider Instructions for Treatment How to Access Health Informa tion Online using Patient Portal and [employer] Indication:BMI 30.0-30.9,adult Start:15-Aug-2020 Instruction Type:Patient Education How to Access Health Informa tion Online using Patient Portal and [employer] Apps Indication:Non-smoker Start:25-Jul-2020 Instruction Type:Patient Education Patient Instructions Indication:Non-smoker Start:25-Jul-2020 Instruction Type:Provider Instructions for Treatment How to access health informa tion online Indication:BMI 30.0-30.9,adult Start:08-Apr-2020 Instruction Type:Patient Education How to access health informa tion online - Detail Indication:BMI 30.0-30.9,adult Start:08-Apr-2020 Instruction Type:Patient Education Patient Instructions Indication:BMI 30.0-30.9,adult Start:08-Apr-2020 Instruction Type:Provider Instructions for Treatment How to access health informa tion online Indication:Non-smoker Start:28-Mar-2020 Instruction Type:Patient Education How to access health informa tion online - Detail Indication:Non-smoker Start:28-Mar-2020 Instruction Type:Patient Education Patient Instructions Indication:Non-smoker Start:28-Mar-2020 Instruction Type:Provider Instructions for Treatment How to access health informa tion online Indication:Non-smoker Start:22-Mar-2020 Instruction Type:Patient Education How to access health informa tion online - Detail Indication:Non-smoker Start:22-Mar-2020 Instruction Type:Patient Education Patient Instructions Indication:Non-smoker Start:22-Mar-2020 Instruction Type:Provider Instructions for Treatment cardiovascular counseling Indication:Coronary artery disease Start:23-Nov-2019 Instruction Type:Provider Instructions for Treatment How to access health informa tion online Indication:Non-smoker Start:23-Nov-2019 Instruction Type:Patient Education How to access health informa tion online - Detail Indication:Non-smoker Start:23-Nov-2019 Instruction Type:Patient Education Patient Instructions Indication:Non-smoker Start:23-Nov-2019 Instruction Type:Provider Instructions for Treatment How to access health informa tion online Indication:Non-smoker Start:26-May-2018 Instruction Type:Patient Education How to access health informa tion online - Detail Indication:Non-smoker Start:26-May-2018 Instruction Type:Patient Education Patient Instructions Indication:Non-smoker Start:26-May-2018 Instruction Type:Provider Instructions for Treatment Patient Instructions Indication:Lumbar stenosis with neurogenic claudication Start:01-Sep-2017 Instruction Type:Provider Instructions for Treatment How to access health informa tion online Indication:Non-smoker Start:01-Sep-2017 Instruction Type:Patient Education How to access health informa tion online - Detail Indication:Non-smoker Start:01-Sep-2017 Instruction Type:Patient Education How to access health informa tion online Indication:Non-smoker Start:13-May-2017 Instruction Type:Patient Education How to access health informa tion online - Detail Indication:Non-smoker Start:13-May-2017 Instruction Type:Patient Education Patient Instructions Indication:Non-smoker Start:13-May-2017 Instruction Type:Provider Instructions for Treatment cardiovascular counseling Indication:Coronary artery disease Start:25-Mar-2017 Instruction Type:Provider Instructions for Treatment How to access health informa tion online Indication:Non-smoker Start:25-Mar-2017 Instruction Type:Patient Education How to access health informa tion online - Detail Indication:Non-smoker Start:25-Mar-2017 Instruction Type:Patient Education Patient Instructions Indication:Non-smoker Start:25-Mar-2017 Instruction Type:Provider Instructions for Treatment How to access health informa tion online Indication:BMI 25.0-25.9,adult Start:18-Mar-2017 Instruction Type:Patient Education How to access health informa tion online - Detail Indication:BMI 25.0-25.9,adult Start:18-Mar-2017 Instruction Type:Patient Education Patient Instructions Indication:BMI 25.0-25.9,adult Start:18-Mar-2017 Instruction Type:Provider Instructions for Treatment How to access health informa tion online Indication:Pre-operative exam (Renamed from Encounter for pre-operative examination) Start:24-Nov-2016 Instruction Type:Patient Education How to access health informa tion online - Detail Indication:Pre-operative exam (Renamed from Encounter for pre-operative examination) Start:24-Nov-2016 Instruction Type:Patient Education Patient Instructions Indication:Pre-operative exam (Renamed from Encounter for pre-operative examination) Start:24-Nov-2016 Instruction Type:Provider Instructions for Treatment How to access health informa tion online Indication:Non-smoker Start:07-Oct-2016 Instruction Type:Patient Education How to access health informa tion online - Detail Indication:Non-smoker Start:07-Oct-2016 Instruction Type:Patient Education Patient Instructions Indication:Non-smoker Start:07-Oct-2016 Instruction Type:Provider Instructions for Treatment Patient Instructions Indication:Encounter for Medicare annual wellness exam Start:07-Feb-2016 Instruction Type:Provider Instructions for Treatment How to access health informa tion online Indication:Heart disease, hypertensive, malignant, without heart failure Start:15-Jan-2016 Instruction Type:Patient Education How to access health informa tion online - Detail Indication:Heart disease, hypertensive, malignant, without heart failure Start:15-Jan-2016 Instruction Type:Patient Education Patient Instructions Indication:Heart disease, hypertensive, malignant, without heart failure Start:15-Jan-2016 Instruction Type:Provider Instructions for Treatment How to access health informa tion online Indication:Dysuria Start:30-Dec-2015 Instruction Type:Patient Education How to access health informa tion online - Detail Indication:Dysuria Start:30-Dec-2015 Instruction Type:Patient Education Patient Instructions Indication:Dysuria Start:30-Dec-2015 Instruction Type:Provider Instructions for Treatment How to access health informa tion online Indication:CLAUDICATION Start:14-Feb-2015 Instruction Type:Patient Education How to access health informa tion online - Detail Indication:CLAUDICATION Start:14-Feb-2015 Instruction Type:Patient Education Patient Instructions Indication:CLAUDICATION Start:14-Feb-2015 Instruction Type:Provider Instructions for Treatment How to access health informa tion online Indication:Sebaceous cyst Start:12-Oct-2014 Instruction Type:Patient Education How to access health informa tion online - Detail Indication:Sebaceous cyst Start:12-Oct-2014 Instruction Type:Patient Education Patient Instructions Indication:Sebaceous cyst Start:12-Oct-2014 Instruction Type:Provider Instructions for Treatment [facility]; [facility] Work Phone: Instructions* Name Dates Details How to Access Health Informa tion Online using Patient Portal and [employer] Indication:Non-smoker Start:31-Oct-2020 Instruction Type:Patient Education Patient Instructions Indication:Non-smoker Start:31-Oct-2020 Instruction Type:Provider Instructions for Treatment Patient Instructions Indication:BMI 30.0-30.9,adult Start:15-Aug-2020 Instruction Type:Provider Instructions for Treatment How to Access Health Informa tion Online using Patient Portal and [employer] Indication:BMI 30.0-30.9,adult Start:15-Aug-2020 Instruction Type:Patient Education How to Access Health Informa tion Online using Patient Portal and [employer] Apps Indication:Non-smoker Start:25-Jul-2020 Instruction Type:Patient Education Patient Instructions Indication:Non-smoker Start:25-Jul-2020 Instruction Type:Provider Instructions for Treatment How to access health informa tion online Indication:BMI 30.0-30.9,adult Start:08-Apr-2020 Instruction Type:Patient Education How to access health informa tion online - Detail Indication:BMI 30.0-30.9,adult Start:08-Apr-2020 Instruction Type:Patient Education Patient Instructions Indication:BMI 30.0-30.9,adult Start:08-Apr-2020 Instruction Type:Provider Instructions for Treatment How to access health informa tion online Indication:Non-smoker Start:28-Mar-2020 Instruction Type:Patient Education How to access health informa tion online - Detail Indication:Non-smoker Start:28-Mar-2020 Instruction Type:Patient Education Patient Instructions Indication:Non-smoker Start:28-Mar-2020 Instruction Type:Provider Instructions for Treatment How to access health informa tion online Indication:Non-smoker Start:22-Mar-2020 Instruction Type:Patient Education How to access health informa tion online - Detail Indication:Non-smoker Start:22-Mar-2020 Instruction Type:Patient Education Patient Instructions Indication:Non-smoker Start:22-Mar-2020 Instruction Type:Provider Instructions for Treatment cardiovascular counseling Indication:Coronary artery disease Start:23-Nov-2019 Instruction Type:Provider Instructions for Treatment How to access health informa tion online Indication:Non-smoker Start:23-Nov-2019 Instruction Type:Patient Education How to access health informa tion online - Detail Indication:Non-smoker Start:23-Nov-2019 Instruction Type:Patient Education Patient Instructions Indication:Non-smoker Start:23-Nov-2019 Instruction Type:Provider Instructions for Treatment How to access health informa tion online Indication:Non-smoker Start:26-May-2018 Instruction Type:Patient Education How to access health informa tion online - Detail Indication:Non-smoker Start:26-May-2018 Instruction Type:Patient Education Patient Instructions Indication:Non-smoker Start:26-May-2018 Instruction Type:Provider Instructions for Treatment Patient Instructions Indication:Lumbar stenosis with neurogenic claudication Start:01-Sep-2017 Instruction Type:Provider Instructions for Treatment How to access health informa tion online Indication:Non-smoker Start:01-Sep-2017 Instruction Type:Patient Education How to access health informa tion online - Detail Indication:Non-smoker Start:01-Sep-2017 Instruction Type:Patient Education How to access health informa tion online Indication:Non-smoker Start:13-May-2017 Instruction Type:Patient Education How to access health informa tion online - Detail Indication:Non-smoker Start:13-May-2017 Instruction Type:Patient Education Patient Instructions Indication:Non-smoker Start:13-May-2017 Instruction Type:Provider Instructions for Treatment cardiovascular counseling Indication:Coronary artery disease Start:25-Mar-2017 Instruction Type:Provider Instructions for Treatment How to access health informa tion online Indication:Non-smoker Start:25-Mar-2017 Instruction Type:Patient Education How to access health informa tion online - Detail Indication:Non-smoker Start:25-Mar-2017 Instruction Type:Patient Education Patient Instructions Indication:Non-smoker Start:25-Mar-2017 Instruction Type:Provider Instructions for Treatment How to access health informa tion online Indication:BMI 25.0-25.9,adult Start:18-Mar-2017 Instruction Type:Patient Education How to access health informa tion online - Detail Indication:BMI 25.0-25.9,adult Start:18-Mar-2017 Instruction Type:Patient Education Patient Instructions Indication:BMI 25.0-25.9,adult Start:18-Mar-2017 Instruction Type:Provider Instructions for Treatment How to access health informa tion online Indication:Pre-operative exam (Renamed from Encounter for pre-operative examination) Start:24-Nov-2016 Instruction Type:Patient Education How to access health informa tion online - Detail Indication:Pre-operative exam (Renamed from Encounter for pre-operative examination) Start:24-Nov-2016 Instruction Type:Patient Education Patient Instructions Indication:Pre-operative exam (Renamed from Encounter for pre-operative examination) Start:24-Nov-2016 Instruction Type:Provider Instructions for Treatment How to access health informa tion online Indication:Non-smoker Start:07-Oct-2016 Instruction Type:Patient Education How to access health informa tion online - Detail Indication:Non-smoker Start:07-Oct-2016 Instruction Type:Patient Education Patient Instructions Indication:Non-smoker Start:07-Oct-2016 Instruction Type:Provider Instructions for Treatment Patient Instructions Indication:Encounter for Medicare annual wellness exam Start:07-Feb-2016 Instruction Type:Provider Instructions for Treatment How to access health informa tion online Indication:Heart disease, hypertensive, malignant, without heart failure Start:15-Jan-2016 Instruction Type:Patient Education How to access health informa tion online - Detail Indication:Heart disease, hypertensive, malignant, without heart failure Start:15-Jan-2016 Instruction Type:Patient Education Patient Instructions Indication:Heart disease, hypertensive, malignant, without heart failure Start:15-Jan-2016 Instruction Type:Provider Instructions for Treatment How to access health informa tion online Indication:Dysuria Start:30-Dec-2015 Instruction Type:Patient Education How to access health informa tion online - Detail Indication:Dysuria Start:30-Dec-2015 Instruction Type:Patient Education Patient Instructions Indication:Dysuria Start:30-Dec-2015 Instruction Type:Provider Instructions for Treatment How to access health informa tion online Indication:CLAUDICATION Start:14-Feb-2015 Instruction Type:Patient Education How to access health informa tion online - Detail Indication:CLAUDICATION Start:14-Feb-2015 Instruction Type:Patient Education Patient Instructions Indication:CLAUDICATION Start:14-Feb-2015 Instruction Type:Provider Instructions for Treatment How to access health informa tion online Indication:Sebaceous cyst Start:12-Oct-2014 Instruction Type:Patient Education How to access health informa tion online - Detail Indication:Sebaceous cyst Start:12-Oct-2014 Instruction Type:Patient Education Patient Instructions Indication:Sebaceous cyst Start:12-Oct-2014 Instruction Type:Provider Instructions for Treatment [facility]; [facility] Work Phone: Instructions* Name Dates Details How to Access Health Informa tion Online using Patient Portal and [employer] Indication:Non-smoker Start:31-Oct-2020 Instruction Type:Patient Education Patient Instructions Indication:Non-smoker Start:31-Oct-2020 Instruction Type:Provider Instructions for Treatment Patient Instructions Indication:BMI 30.0-30.9,adult Start:15-Aug-2020 Instruction Type:Provider Instructions for Treatment How to Access Health Informa tion Online using Patient Portal and [employer] Indication:BMI 30.0-30.9,adult Start:15-Aug-2020 Instruction Type:Patient Education How to Access Health Informa tion Online using Patient Portal and [employer] Apps Indication:Non-smoker Start:25-Jul-2020 Instruction Type:Patient Education Patient Instructions Indication:Non-smoker Start:25-Jul-2020 Instruction Type:Provider Instructions for Treatment How to access health informa tion online Indication:BMI 30.0-30.9,adult Start:08-Apr-2020 Instruction Type:Patient Education How to access health informa tion online - Detail Indication:BMI 30.0-30.9,adult Start:08-Apr-2020 Instruction Type:Patient Education Patient Instructions Indication:BMI 30.0-30.9,adult Start:08-Apr-2020 Instruction Type:Provider Instructions for Treatment How to access health informa tion online Indication:Non-smoker Start:28-Mar-2020 Instruction Type:Patient Education How to access health informa tion online - Detail Indication:Non-smoker Start:28-Mar-2020 Instruction Type:Patient Education Patient Instructions Indication:Non-smoker Start:28-Mar-2020 Instruction Type:Provider Instructions for Treatment How to access health informa tion online Indication:Non-smoker Start:22-Mar-2020 Instruction Type:Patient Education How to access health informa tion online - Detail Indication:Non-smoker Start:22-Mar-2020 Instruction Type:Patient Education Patient Instructions Indication:Non-smoker Start:22-Mar-2020 Instruction Type:Provider Instructions for Treatment cardiovascular counseling Indication:Coronary artery disease Start:23-Nov-2019 Instruction Type:Provider Instructions for Treatment How to access health informa tion online Indication:Non-smoker Start:23-Nov-2019 Instruction Type:Patient Education How to access health informa tion online - Detail Indication:Non-smoker Start:23-Nov-2019 Instruction Type:Patient Education Patient Instructions Indication:Non-smoker Start:23-Nov-2019 Instruction Type:Provider Instructions for Treatment How to access health informa tion online Indication:Non-smoker Start:26-May-2018 Instruction Type:Patient Education How to access health informa tion online - Detail Indication:Non-smoker Start:26-May-2018 Instruction Type:Patient Education Patient Instructions Indication:Non-smoker Start:26-May-2018 Instruction Type:Provider Instructions for Treatment Patient Instructions Indication:Lumbar stenosis with neurogenic claudication Start:01-Sep-2017 Instruction Type:Provider Instructions for Treatment How to access health informa tion online Indication:Non-smoker Start:01-Sep-2017 Instruction Type:Patient Education How to access health informa tion online - Detail Indication:Non-smoker Start:01-Sep-2017 Instruction Type:Patient Education How to access health informa tion online Indication:Non-smoker Start:13-May-2017 Instruction Type:Patient Education How to access health informa tion online - Detail Indication:Non-smoker Start:13-May-2017 Instruction Type:Patient Education Patient Instructions Indication:Non-smoker Start:13-May-2017 Instruction Type:Provider Instructions for Treatment cardiovascular counseling Indication:Coronary artery disease Start:25-Mar-2017 Instruction Type:Provider Instructions for Treatment How to access health informa tion online Indication:Non-smoker Start:25-Mar-2017 Instruction Type:Patient Education How to access health informa tion online - Detail Indication:Non-smoker Start:25-Mar-2017 Instruction Type:Patient Education Patient Instructions Indication:Non-smoker Start:25-Mar-2017 Instruction Type:Provider Instructions for Treatment How to access health informa tion online Indication:BMI 25.0-25.9,adult Start:18-Mar-2017 Instruction Type:Patient Education How to access health informa tion online - Detail Indication:BMI 25.0-25.9,adult Start:18-Mar-2017 Instruction Type:Patient Education Patient Instructions Indication:BMI 25.0-25.9,adult Start:18-Mar-2017 Instruction Type:Provider Instructions for Treatment How to access health informa tion online Indication:Pre-operative exam (Renamed from Encounter for pre-operative examination) Start:24-Nov-2016 Instruction Type:Patient Education How to access health informa tion online - Detail Indication:Pre-operative exam (Renamed from Encounter for pre-operative examination) Start:24-Nov-2016 Instruction Type:Patient Education Patient Instructions Indication:Pre-operative exam (Renamed from Encounter for pre-operative examination) Start:24-Nov-2016 Instruction Type:Provider Instructions for Treatment How to access health informa tion online Indication:Non-smoker Start:07-Oct-2016 Instruction Type:Patient Education How to access health informa tion online - Detail Indication:Non-smoker Start:07-Oct-2016 Instruction Type:Patient Education Patient Instructions Indication:Non-smoker Start:07-Oct-2016 Instruction Type:Provider Instructions for Treatment Patient Instructions Indication:Encounter for Medicare annual wellness exam Start:07-Feb-2016 Instruction Type:Provider Instructions for Treatment How to access health informa tion online Indication:Heart disease, hypertensive, malignant, without heart failure Start:15-Jan-2016 Instruction Type:Patient Education How to access health informa tion online - Detail Indication:Heart disease, hypertensive, malignant, without heart failure Start:15-Jan-2016 Instruction Type:Patient Education Patient Instructions Indication:Heart disease, hypertensive, malignant, without heart failure Start:15-Jan-2016 Instruction Type:Provider Instructions for Treatment How to access health informa tion online Indication:Dysuria Start:30-Dec-2015 Instruction Type:Patient Education How to access health informa tion online - Detail Indication:Dysuria Start:30-Dec-2015 Instruction Type:Patient Education Patient Instructions Indication:Dysuria Start:30-Dec-2015 Instruction Type:Provider Instructions for Treatment How to access health informa tion online Indication:CLAUDICATION Start:14-Feb-2015 Instruction Type:Patient Education How to access health informa tion online - Detail Indication:CLAUDICATION Start:14-Feb-2015 Instruction Type:Patient Education Patient Instructions Indication:CLAUDICATION Start:14-Feb-2015 Instruction Type:Provider Instructions for Treatment How to access health informa tion online Indication:Sebaceous cyst Start:12-Oct-2014 Instruction Type:Patient Education How to access health informa tion online - Detail Indication:Sebaceous cyst Start:12-Oct-2014 Instruction Type:Patient Education Patient Instructions Indication:Sebaceous cyst Start:12-Oct-2014 Instruction Type:Provider Instructions for Treatment [facility]; [facility] Work Phone: Instructions* Name Dates Details Patient Instructions Indication:Type II diabetes mellitus, well controlled Start:06-Mar-2021 Instruction Type:Provider Instructions for Treatment How to Access Health Informa tion Online using Patient Portal and [employer] Indication:Type II diabetes mellitus, well controlled Start:06-Mar-2021 Instruction Type:Patient Education cardiovascular counseling Indication:Coronary artery disease Start:09-Jan-2021 Instruction Type:Provider Instructions for Treatment Patient Instructions Indication:BMI 28.0-28.9,adult Start:09-Jan-2021 Instruction Type:Provider Instructions for Treatment How to Access Health Informa tion Online using Patient Portal and [employer] Indication:BMI 28.0-28.9,adult Start:09-Jan-2021 Instruction Type:Patient Education How to Access Health Informa tion Online using Patient Portal and [employer] Indication:Non-smoker Start:31-Oct-2020 Instruction Type:Patient Education Patient Instructions Indication:Non-smoker Start:31-Oct-2020 Instruction Type:Provider Instructions for Treatment Patient Instructions Indication:BMI 30.0-30.9,adult Start:15-Aug-2020 Instruction Type:Provider Instructions for Treatment How to Access Health Informa tion Online using Patient Portal and [employer] Indication:BMI 30.0-30.9,adult Start:15-Aug-2020 Instruction Type:Patient Education How to Access Health Informa tion Online using Patient Portal and [employer] Indication:Non-smoker Start:25-Jul-2020 Instruction Type:Patient Education Patient Instructions Indication:Non-smoker Start:25-Jul-2020 Instruction Type:Provider Instructions for Treatment How to access health informa tion online Indication:BMI 30.0-30.9,adult Start:08-Apr-2020 Instruction Type:Patient Education How to access health informa tion online - Detail Indication:BMI 30.0-30.9,adult Start:08-Apr-2020 Instruction Type:Patient Education Patient Instructions Indication:BMI 30.0-30.9,adult Start:08-Apr-2020 Instruction Type:Provider Instructions for Treatment How to access health informa tion online Indication:Non-smoker Start:28-Mar-2020 Instruction Type:Patient Education How to access health informa tion online - Detail Indication:Non-smoker Start:28-Mar-2020 Instruction Type:Patient Education Patient Instructions Indication:Non-smoker Start:28-Mar-2020 Instruction Type:Provider Instructions for Treatment How to access health informa tion online Indication:Non-smoker Start:22-Mar-2020 Instruction Type:Patient Education How to access health informa tion online - Detail Indication:Non-smoker Start:22-Mar-2020 Instruction Type:Patient Education Patient Instructions Indication:Non-smoker Start:22-Mar-2020 Instruction Type:Provider Instructions for Treatment cardiovascular counseling Indication:Coronary artery disease Start:23-Nov-2019 Instruction Type:Provider Instructions for Treatment How to access health informa tion online Indication:Non-smoker Start:23-Nov-2019 Instruction Type:Patient Education How to access health informa tion online - Detail Indication:Non-smoker Start:23-Nov-2019 Instruction Type:Patient Education Patient Instructions Indication:Non-smoker Start:23-Nov-2019 Instruction Type:Provider Instructions for Treatment How to access health informa tion online Indication:Non-smoker Start:26-May-2018 Instruction Type:Patient Education How to access health informa tion online - Detail Indication:Non-smoker Start:26-May-2018 Instruction Type:Patient Education Patient Instructions Indication:Non-smoker Start:26-May-2018 Instruction Type:Provider Instructions for Treatment Patient Instructions Indication:Lumbar stenosis with neurogenic claudication Start:01-Sep-2017 Instruction Type:Provider Instructions for Treatment How to access health informa tion online Indication:Non-smoker Start:01-Sep-2017 Instruction Type:Patient Education How to access health informa tion online - Detail Indication:Non-smoker Start:01-Sep-2017 Instruction Type:Patient Education How to access health informa tion online Indication:Non-smoker Start:13-May-2017 Instruction Type:Patient Education How to access health informa tion online - Detail Indication:Non-smoker Start:13-May-2017 Instruction Type:Patient Education Patient Instructions Indication:Non-smoker Start:13-May-2017 Instruction Type:Provider Instructions for Treatment cardiovascular counseling Indication:Coronary artery disease Start:25-Mar-2017 Instruction Type:Provider Instructions for Treatment How to access health informa tion online Indication:Non-smoker Start:25-Mar-2017 Instruction Type:Patient Education How to access health informa tion online - Detail Indication:Non-smoker Start:25-Mar-2017 Instruction Type:Patient Education Patient Instructions Indication:Non-smoker Start:25-Mar-2017 Instruction Type:Provider Instructions for Treatment How to access health informa tion online Indication:BMI 25.0-25.9,adult Start:18-Mar-2017 Instruction Type:Patient Education How to access health informa tion online - Detail Indication:BMI 25.0-25.9,adult Start:18-Mar-2017 Instruction Type:Patient Education Patient Instructions Indication:BMI 25.0-25.9,adult Start:18-Mar-2017 Instruction Type:Provider Instructions for Treatment How to access health informa tion online Indication:Pre-operative exam (Renamed from Encounter for pre-operative examination) Start:24-Nov-2016 Instruction Type:Patient Education How to access health informa tion online - Detail Indication:Pre-operative exam (Renamed from Encounter for pre-operative examination) Start:24-Nov-2016 Instruction Type:Patient Education Patient Instructions Indication:Pre-operative exam (Renamed from Encounter for pre-operative examination) Start:24-Nov-2016 Instruction Type:Provider Instructions for Treatment How to access health informa tion online Indication:Non-smoker Start:07-Oct-2016 Instruction Type:Patient Education How to access health informa tion online - Detail Indication:Non-smoker Start:07-Oct-2016 Instruction Type:Patient Education Patient Instructions Indication:Non-smoker Start:07-Oct-2016 Instruction Type:Provider Instructions for Treatment Patient Instructions Indication:Encounter for Medicare annual wellness exam Start:07-Feb-2016 Instruction Type:Provider Instructions for Treatment How to access health informa tion online Indication:Heart disease, hypertensive, malignant, without heart failure Start:15-Jan-2016 Instruction Type:Patient Education How to access health informa tion online - Detail Indication:Heart disease, hypertensive, malignant, without heart failure Start:15-Jan-2016 Instruction Type:Patient Education Patient Instructions Indication:Heart disease, hypertensive, malignant, without heart failure Start:15-Jan-2016 Instruction Type:Provider Instructions for Treatment How to access health informa tion online Indication:Dysuria Start:30-Dec-2015 Instruction Type:Patient Education How to access health informa tion online - Detail Indication:Dysuria Start:30-Dec-2015 Instruction Type:Patient Education Patient Instructions Indication:Dysuria Start:30-Dec-2015 Instruction Type:Provider Instructions for Treatment How to access health informa tion online Indication:CLAUDICATION Start:14-Feb-2015 Instruction Type:Patient Education How to access health informa tion online - Detail Indication:CLAUDICATION Start:14-Feb-2015 Instruction Type:Patient Education Patient Instructions Indication:CLAUDICATION Start:14-Feb-2015 Instruction Type:Provider Instructions for Treatment How to access health informa tion online Indication:Sebaceous cyst Start:12-Oct-2014 Instruction Type:Patient Education How to access health informa tion online - Detail Indication:Sebaceous cyst Start:12-Oct-2014 Instruction Type:Patient Education Patient Instructions Indication:Sebaceous cyst Start:12-Oct-2014 Instruction Type:Provider Instructions for Treatment [facility]; [facility] Work Phone: Instructions* Name Dates Details Patient Instructions Indication:Type II diabetes mellitus, well controlled Start:06-Mar-2021 Instruction Type:Provider Instructions for Treatment How to Access Health Informa tion Online using Patient Portal and [employer] Apps Indication:Type II diabetes mellitus, well controlled Start:06-Mar-2021 Instruction Type:Patient Education cardiovascular counseling Indication:Coronary artery disease Start:09-Jan-2021 Instruction Type:Provider Instructions for Treatment Patient Instructions Indication:BMI 28.0-28.9,adult Start:09-Jan-2021 Instruction Type:Provider Instructions for Treatment How to Access Health Informa tion Online using Patient Portal and [employer] Apps Indication:BMI 28.0-28.9,adult Start:09-Jan-2021 Instruction Type:Patient Education How to Access Health Informa tion Online using Patient Portal and [employer] Apps Indication:Non-smoker Start:31-Oct-2020 Instruction Type:Patient Education Patient Instructions Indication:Non-smoker Start:31-Oct-2020 Instruction Type:Provider Instructions for Treatment Patient Instructions Indication:BMI 30.0-30.9,adult Start:15-Aug-2020 Instruction Type:Provider Instructions for Treatment How to Access Health Informa tion Online using Patient Portal and [employer] Apps Indication:BMI 30.0-30.9,adult Start:15-Aug-2020 Instruction Type:Patient Education How to Access Health Informa tion Online using Patient Portal and [employer] Apps Indication:Non-smoker Start:25-Jul-2020 Instruction Type:Patient Education Patient Instructions Indication:Non-smoker Start:25-Jul-2020 Instruction Type:Provider Instructions for Treatment How to access health informa tion online Indication:BMI 30.0-30.9,adult Start:08-Apr-2020 Instruction Type:Patient Education How to access health informa tion online - Detail Indication:BMI 30.0-30.9,adult Start:08-Apr-2020 Instruction Type:Patient Education Patient Instructions Indication:BMI 30.0-30.9,adult Start:08-Apr-2020 Instruction Type:Provider Instructions for Treatment How to access health informa tion online Indication:Non-smoker Start:28-Mar-2020 Instruction Type:Patient Education How to access health informa tion online - Detail Indication:Non-smoker Start:28-Mar-2020 Instruction Type:Patient Education Patient Instructions Indication:Non-smoker Start:28-Mar-2020 Instruction Type:Provider Instructions for Treatment How to access health informa tion online Indication:Non-smoker Start:22-Mar-2020 Instruction Type:Patient Education How to access health informa tion online - Detail Indication:Non-smoker Start:22-Mar-2020 Instruction Type:Patient Education Patient Instructions Indication:Non-smoker Start:22-Mar-2020 Instruction Type:Provider Instructions for Treatment cardiovascular counseling Indication:Coronary artery disease Start:23-Nov-2019 Instruction Type:Provider Instructions for Treatment How to access health informa tion online Indication:Non-smoker Start:23-Nov-2019 Instruction Type:Patient Education How to access health informa tion online - Detail Indication:Non-smoker Start:23-Nov-2019 Instruction Type:Patient Education Patient Instructions Indication:Non-smoker Start:23-Nov-2019 Instruction Type:Provider Instructions for Treatment How to access health informa tion online Indication:Non-smoker Start:26-May-2018 Instruction Type:Patient Education How to access health informa tion online - Detail Indication:Non-smoker Start:26-May-2018 Instruction Type:Patient Education Patient Instructions Indication:Non-smoker Start:26-May-2018 Instruction Type:Provider Instructions for Treatment Patient Instructions Indication:Lumbar stenosis with neurogenic claudication Start:01-Sep-2017 Instruction Type:Provider Instructions for Treatment How to access health informa tion online Indication:Non-smoker Start:01-Sep-2017 Instruction Type:Patient Education How to access health informa tion online - Detail Indication:Non-smoker Start:01-Sep-2017 Instruction Type:Patient Education How to access health informa tion online Indication:Non-smoker Start:13-May-2017 Instruction Type:Patient Education How to access health informa tion online - Detail Indication:Non-smoker Start:13-May-2017 Instruction Type:Patient Education Patient Instructions Indication:Non-smoker Start:13-May-2017 Instruction Type:Provider Instructions for Treatment cardiovascular counseling Indication:Coronary artery disease Start:25-Mar-2017 Instruction Type:Provider Instructions for Treatment How to access health informa tion online Indication:Non-smoker Start:25-Mar-2017 Instruction Type:Patient Education How to access health informa tion online - Detail Indication:Non-smoker Start:25-Mar-2017 Instruction Type:Patient Education Patient Instructions Indication:Non-smoker Start:25-Mar-2017 Instruction Type:Provider Instructions for Treatment How to access health informa tion online Indication:BMI 25.0-25.9,adult Start:18-Mar-2017 Instruction Type:Patient Education How to access health informa tion online - Detail Indication:BMI 25.0-25.9,adult Start:18-Mar-2017 Instruction Type:Patient Education Patient Instructions Indication:BMI 25.0-25.9,adult Start:18-Mar-2017 Instruction Type:Provider Instructions for Treatment How to access health informa tion online Indication:Pre-operative exam (Renamed from Encounter for pre-operative examination) Start:24-Nov-2016 Instruction Type:Patient Education How to access health informa tion online - Detail Indication:Pre-operative exam (Renamed from Encounter for pre-operative examination) Start:24-Nov-2016 Instruction Type:Patient Education Patient Instructions Indication:Pre-operative exam (Renamed from Encounter for pre-operative examination) Start:24-Nov-2016 Instruction Type:Provider Instructions for Treatment How to access health informa tion online Indication:Non-smoker Start:07-Oct-2016 Instruction Type:Patient Education How to access health informa tion online - Detail Indication:Non-smoker Start:07-Oct-2016 Instruction Type:Patient Education Patient Instructions Indication:Non-smoker Start:07-Oct-2016 Instruction Type:Provider Instructions for Treatment Patient Instructions Indication:Encounter for Medicare annual wellness exam Start:07-Feb-2016 Instruction Type:Provider Instructions for Treatment How to access health informa tion online Indication:Heart disease, hypertensive, malignant, without heart failure Start:15-Jan-2016 Instruction Type:Patient Education How to access health informa tion online - Detail Indication:Heart disease, hypertensive, malignant, without heart failure Start:15-Jan-2016 Instruction Type:Patient Education Patient Instructions Indication:Heart disease, hypertensive, malignant, without heart failure Start:15-Jan-2016 Instruction Type:Provider Instructions for Treatment How to access health informa tion online Indication:Dysuria Start:30-Dec-2015 Instruction Type:Patient Education How to access health informa tion online - Detail Indication:Dysuria Start:30-Dec-2015 Instruction Type:Patient Education Patient Instructions Indication:Dysuria Start:30-Dec-2015 Instruction Type:Provider Instructions for Treatment How to access health informa tion online Indication:CLAUDICATION Start:14-Feb-2015 Instruction Type:Patient Education How to access health informa tion online - Detail Indication:CLAUDICATION Start:14-Feb-2015 Instruction Type:Patient Education Patient Instructions Indication:CLAUDICATION Start:14-Feb-2015 Instruction Type:Provider Instructions for Treatment How to access health informa tion online Indication:Sebaceous cyst Start:12-Oct-2014 Instruction Type:Patient Education How to access health informa tion online - Detail Indication:Sebaceous cyst Start:12-Oct-2014 Instruction Type:Patient Education Patient Instructions Indication:Sebaceous cyst Start:12-Oct-2014 Instruction Type:Provider Instructions for Treatment [facility]; [facility] Work Phone: Instructions* Name Dates Details Patient Instructions Indication:Type II diabetes mellitus, well controlled Start:06-Mar-2021 Instruction Type:Provider Instructions for Treatment How to Access Health Informa tion Online using Patient Portal and [employer] Apps Indication:Type II diabetes mellitus, well controlled Start:06-Mar-2021 Instruction Type:Patient Education cardiovascular counseling Indication:Coronary artery disease Start:09-Jan-2021 Instruction Type:Provider Instructions for Treatment Patient Instructions Indication:BMI 28.0-28.9,adult Start:09-Jan-2021 Instruction Type:Provider Instructions for Treatment How to Access Health Informa tion Online using Patient Portal and [employer] Apps Indication:BMI 28.0-28.9,adult Start:09-Jan-2021 Instruction Type:Patient Education How to Access Health Informa tion Online using Patient Portal and [employer] Apps Indication:Non-smoker Start:31-Oct-2020 Instruction Type:Patient Education Patient Instructions Indication:Non-smoker Start:31-Oct-2020 Instruction Type:Provider Instructions for Treatment Patient Instructions Indication:BMI 30.0-30.9,adult Start:15-Aug-2020 Instruction Type:Provider Instructions for Treatment How to Access Health Informa tion Online using Patient Portal and [employer] Apps Indication:BMI 30.0-30.9,adult Start:15-Aug-2020 Instruction Type:Patient Education How to Access Health Informa tion Online using Patient Portal and [employer] Apps Indication:Non-smoker Start:25-Jul-2020 Instruction Type:Patient Education Patient Instructions Indication:Non-smoker Start:25-Jul-2020 Instruction Type:Provider Instructions for Treatment How to access health informa tion online Indication:BMI 30.0-30.9,adult Start:08-Apr-2020 Instruction Type:Patient Education How to access health informa tion online - Detail Indication:BMI 30.0-30.9,adult Start:08-Apr-2020 Instruction Type:Patient Education Patient Instructions Indication:BMI 30.0-30.9,adult Start:08-Apr-2020 Instruction Type:Provider Instructions for Treatment How to access health informa tion online Indication:Non-smoker Start:28-Mar-2020 Instruction Type:Patient Education How to access health informa tion online - Detail Indication:Non-smoker Start:28-Mar-2020 Instruction Type:Patient Education Patient Instructions Indication:Non-smoker Start:28-Mar-2020 Instruction Type:Provider Instructions for Treatment How to access health informa tion online Indication:Non-smoker Start:22-Mar-2020 Instruction Type:Patient Education How to access health informa tion online - Detail Indication:Non-smoker Start:22-Mar-2020 Instruction Type:Patient Education Patient Instructions Indication:Non-smoker Start:22-Mar-2020 Instruction Type:Provider Instructions for Treatment cardiovascular counseling Indication:Coronary artery disease Start:23-Nov-2019 Instruction Type:Provider Instructions for Treatment How to access health informa tion online Indication:Non-smoker Start:23-Nov-2019 Instruction Type:Patient Education How to access health informa tion online - Detail Indication:Non-smoker Start:23-Nov-2019 Instruction Type:Patient Education Patient Instructions Indication:Non-smoker Start:23-Nov-2019 Instruction Type:Provider Instructions for Treatment How to access health informa tion online Indication:Non-smoker Start:26-May-2018 Instruction Type:Patient Education How to access health informa tion online - Detail Indication:Non-smoker Start:26-May-2018 Instruction Type:Patient Education Patient Instructions Indication:Non-smoker Start:26-May-2018 Instruction Type:Provider Instructions for Treatment Patient Instructions Indication:Lumbar stenosis with neurogenic claudication Start:01-Sep-2017 Instruction Type:Provider Instructions for Treatment How to access health informa tion online Indication:Non-smoker Start:01-Sep-2017 Instruction Type:Patient Education How to access health informa tion online - Detail Indication:Non-smoker Start:01-Sep-2017 Instruction Type:Patient Education How to access health informa tion online Indication:Non-smoker Start:13-May-2017 Instruction Type:Patient Education How to access health informa tion online - Detail Indication:Non-smoker Start:13-May-2017 Instruction Type:Patient Education Patient Instructions Indication:Non-smoker Start:13-May-2017 Instruction Type:Provider Instructions for Treatment cardiovascular counseling Indication:Coronary artery disease Start:25-Mar-2017 Instruction Type:Provider Instructions for Treatment How to access health informa tion online Indication:Non-smoker Start:25-Mar-2017 Instruction Type:Patient Education How to access health informa tion online - Detail Indication:Non-smoker Start:25-Mar-2017 Instruction Type:Patient Education Patient Instructions Indication:Non-smoker Start:25-Mar-2017 Instruction Type:Provider Instructions for Treatment How to access health informa tion online Indication:BMI 25.0-25.9,adult Start:18-Mar-2017 Instruction Type:Patient Education How to access health informa tion online - Detail Indication:BMI 25.0-25.9,adult Start:18-Mar-2017 Instruction Type:Patient Education Patient Instructions Indication:BMI 25.0-25.9,adult Start:18-Mar-2017 Instruction Type:Provider Instructions for Treatment How to access health informa tion online Indication:Pre-operative exam (Renamed from Encounter for pre-operative examination) Start:24-Nov-2016 Instruction Type:Patient Education How to access health informa tion online - Detail Indication:Pre-operative exam (Renamed from Encounter for pre-operative examination) Start:24-Nov-2016 Instruction Type:Patient Education Patient Instructions Indication:Pre-operative exam (Renamed from Encounter for pre-operative examination) Start:24-Nov-2016 Instruction Type:Provider Instructions for Treatment How to access health informa tion online Indication:Non-smoker Start:07-Oct-2016 Instruction Type:Patient Education How to access health informa tion online - Detail Indication:Non-smoker Start:07-Oct-2016 Instruction Type:Patient Education Patient Instructions Indication:Non-smoker Start:07-Oct-2016 Instruction Type:Provider Instructions for Treatment Patient Instructions Indication:Encounter for Medicare annual wellness exam Start:07-Feb-2016 Instruction Type:Provider Instructions for Treatment How to access health informa tion online Indication:Heart disease, hypertensive, malignant, without heart failure Start:15-Jan-2016 Instruction Type:Patient Education How to access health informa tion online - Detail Indication:Heart disease, hypertensive, malignant, without heart failure Start:15-Jan-2016 Instruction Type:Patient Education Patient Instructions Indication:Heart disease, hypertensive, malignant, without heart failure Start:15-Jan-2016 Instruction Type:Provider Instructions for Treatment How to access health informa tion online Indication:Dysuria Start:30-Dec-2015 Instruction Type:Patient Education How to access health informa tion online - Detail Indication:Dysuria Start:30-Dec-2015 Instruction Type:Patient Education Patient Instructions Indication:Dysuria Start:30-Dec-2015 Instruction Type:Provider Instructions for Treatment How to access health informa tion online Indication:CLAUDICATION Start:14-Feb-2015 Instruction Type:Patient Education How to access health informa tion online - Detail Indication:CLAUDICATION Start:14-Feb-2015 Instruction Type:Patient Education Patient Instructions Indication:CLAUDICATION Start:14-Feb-2015 Instruction Type:Provider Instructions for Treatment How to access health informa tion online Indication:Sebaceous cyst Start:12-Oct-2014 Instruction Type:Patient Education How to access health informa tion online - Detail Indication:Sebaceous cyst Start:12-Oct-2014 Instruction Type:Patient Education Patient Instructions Indication:Sebaceous cyst Start:12-Oct-2014 Instruction Type:Provider Instructions for Treatment [facility]; [facility] Work Phone: Instructions* Name Dates Details Patient Instructions Indication:BMI 29.0-29.9,adult Start:24-Jul-2021 Instruction Type:Provider Instructions for Treatment How to Access Health Informa tion Online using Patient Portal and [employer] Apps Indication:BMI 29.0-29.9,adult Start:24-Jul-2021 Instruction Type:Patient Education Patient Instructions Indication:Type II diabetes mellitus, well controlled Start:06-Mar-2021 Instruction Type:Provider Instructions for Treatment How to Access Health Informa tion Online using Patient Portal and [employer] Apps Indication:Type II diabetes mellitus, well controlled Start:06-Mar-2021 Instruction Type:Patient Education cardiovascular counseling Indication:Coronary artery disease Start:09-Jan-2021 Instruction Type:Provider Instructions for Treatment Patient Instructions Indication:BMI 28.0-28.9,adult Start:09-Jan-2021 Instruction Type:Provider Instructions for Treatment How to Access Health Informa tion Online using Patient Portal and [employer] Apps Indication:BMI 28.0-28.9,adult Start:09-Jan-2021 Instruction Type:Patient Education How to Access Health Informa tion Online using Patient Portal and [employer] Apps Indication:Non-smoker Start:31-Oct-2020 Instruction Type:Patient Education Patient Instructions Indication:Non-smoker Start:31-Oct-2020 Instruction Type:Provider Instructions for Treatment Patient Instructions Indication:BMI 30.0-30.9,adult Start:15-Aug-2020 Instruction Type:Provider Instructions for Treatment How to Access Health Informa tion Online using Patient Portal and [employer] Indication:BMI 30.0-30.9,adult Start:15-Aug-2020 Instruction Type:Patient Education How to Access Health Informa tion Online using Patient Portal and [employer] Apps Indication:Non-smoker Start:25-Jul-2020 Instruction Type:Patient Education Patient Instructions Indication:Non-smoker Start:25-Jul-2020 Instruction Type:Provider Instructions for Treatment How to access health informa tion online Indication:BMI 30.0-30.9,adult Start:08-Apr-2020 Instruction Type:Patient Education How to access health informa tion online - Detail Indication:BMI 30.0-30.9,adult Start:08-Apr-2020 Instruction Type:Patient Education Patient Instructions Indication:BMI 30.0-30.9,adult Start:08-Apr-2020 Instruction Type:Provider Instructions for Treatment How to access health informa tion online Indication:Non-smoker Start:28-Mar-2020 Instruction Type:Patient Education How to access health informa tion online - Detail Indication:Non-smoker Start:28-Mar-2020 Instruction Type:Patient Education Patient Instructions Indication:Non-smoker Start:28-Mar-2020 Instruction Type:Provider Instructions for Treatment How to access health informa tion online Indication:Non-smoker Start:22-Mar-2020 Instruction Type:Patient Education How to access health informa tion online - Detail Indication:Non-smoker Start:22-Mar-2020 Instruction Type:Patient Education Patient Instructions Indication:Non-smoker Start:22-Mar-2020 Instruction Type:Provider Instructions for Treatment cardiovascular counseling Indication:Coronary artery disease Start:23-Nov-2019 Instruction Type:Provider Instructions for Treatment How to access health informa tion online Indication:Non-smoker Start:23-Nov-2019 Instruction Type:Patient Education How to access health informa tion online - Detail Indication:Non-smoker Start:23-Nov-2019 Instruction Type:Patient Education Patient Instructions Indication:Non-smoker Start:23-Nov-2019 Instruction Type:Provider Instructions for Treatment How to access health informa tion online Indication:Non-smoker Start:26-May-2018 Instruction Type:Patient Education How to access health informa tion online - Detail Indication:Non-smoker Start:26-May-2018 Instruction Type:Patient Education Patient Instructions Indication:Non-smoker Start:26-May-2018 Instruction Type:Provider Instructions for Treatment Patient Instructions Indication:Lumbar stenosis with neurogenic claudication Start:01-Sep-2017 Instruction Type:Provider Instructions for Treatment How to access health informa tion online Indication:Non-smoker Start:01-Sep-2017 Instruction Type:Patient Education How to access health informa tion online - Detail Indication:Non-smoker Start:01-Sep-2017 Instruction Type:Patient Education How to access health informa tion online Indication:Non-smoker Start:13-May-2017 Instruction Type:Patient Education How to access health informa tion online - Detail Indication:Non-smoker Start:13-May-2017 Instruction Type:Patient Education Patient Instructions Indication:Non-smoker Start:13-May-2017 Instruction Type:Provider Instructions for Treatment cardiovascular counseling Indication:Coronary artery disease Start:25-Mar-2017 Instruction Type:Provider Instructions for Treatment How to access health informa tion online Indication:Non-smoker Start:25-Mar-2017 Instruction Type:Patient Education How to access health informa tion online - Detail Indication:Non-smoker Start:25-Mar-2017 Instruction Type:Patient Education Patient Instructions Indication:Non-smoker Start:25-Mar-2017 Instruction Type:Provider Instructions for Treatment How to access health informa tion online Indication:BMI 25.0-25.9,adult Start:18-Mar-2017 Instruction Type:Patient Education How to access health informa tion online - Detail Indication:BMI 25.0-25.9,adult Start:18-Mar-2017 Instruction Type:Patient Education Patient Instructions Indication:BMI 25.0-25.9,adult Start:18-Mar-2017 Instruction Type:Provider Instructions for Treatment How to access health informa tion online Indication:Pre-operative exam (Renamed from Encounter for pre-operative examination) Start:24-Nov-2016 Instruction Type:Patient Education How to access health informa tion online - Detail Indication:Pre-operative exam (Renamed from Encounter for pre-operative examination) Start:24-Nov-2016 Instruction Type:Patient Education Patient Instructions Indication:Pre-operative exam (Renamed from Encounter for pre-operative examination) Start:24-Nov-2016 Instruction Type:Provider Instructions for Treatment How to access health informa tion online Indication:Non-smoker Start:07-Oct-2016 Instruction Type:Patient Education How to access health informa tion online - Detail Indication:Non-smoker Start:07-Oct-2016 Instruction Type:Patient Education Patient Instructions Indication:Non-smoker Start:07-Oct-2016 Instruction Type:Provider Instructions for Treatment Patient Instructions Indication:Encounter for Medicare annual wellness exam Start:07-Feb-2016 Instruction Type:Provider Instructions for Treatment How to access health informa tion online Indication:Heart disease, hypertensive, malignant, without heart failure Start:15-Jan-2016 Instruction Type:Patient Education How to access health informa tion online - Detail Indication:Heart disease, hypertensive, malignant, without heart failure Start:15-Jan-2016 Instruction Type:Patient Education Patient Instructions Indication:Heart disease, hypertensive, malignant, without heart failure Start:15-Jan-2016 Instruction Type:Provider Instructions for Treatment How to access health informa tion online Indication:Dysuria Start:30-Dec-2015 Instruction Type:Patient Education How to access health informa tion online - Detail Indication:Dysuria Start:30-Dec-2015 Instruction Type:Patient Education Patient Instructions Indication:Dysuria Start:30-Dec-2015 Instruction Type:Provider Instructions for Treatment How to access health informa tion online Indication:CLAUDICATION Start:14-Feb-2015 Instruction Type:Patient Education How to access health informa tion online - Detail Indication:CLAUDICATION Start:14-Feb-2015 Instruction Type:Patient Education Patient Instructions Indication:CLAUDICATION Start:14-Feb-2015 Instruction Type:Provider Instructions for Treatment How to access health informa tion online Indication:Sebaceous cyst Start:12-Oct-2014 Instruction Type:Patient Education How to access health informa tion online - Detail Indication:Sebaceous cyst Start:12-Oct-2014 Instruction Type:Patient Education Patient Instructions Indication:Sebaceous cyst Start:12-Oct-2014 Instruction Type:Provider Instructions for Treatment [facility]; [facility] Work Phone: Instructions* Name Dates Details Patient Instructions Indication:Type II diabetes mellitus, well controlled Start:31-Oct-2021 Instruction Type:Provider Instructions for Treatment How to Access Health Informa tion Online using Patient Portal and [employer] Apps Indication:Type II diabetes mellitus, well controlled Start:31-Oct-2021 Instruction Type:Patient Education Patient Instructions Indication:BMI 29.0-29.9,adult Start:24-Jul-2021 Instruction Type:Provider Instructions for Treatment How to Access Health Informa tion Online using Patient Portal and [employer] Apps Indication:BMI 29.0-29.9,adult Start:24-Jul-2021 Instruction Type:Patient Education Patient Instructions Indication:Type II diabetes mellitus, well controlled Start:06-Mar-2021 Instruction Type:Provider Instructions for Treatment How to Access Health Informa tion Online using Patient Portal and [employer] Apps Indication:Type II diabetes mellitus, well controlled Start:06-Mar-2021 Instruction Type:Patient Education cardiovascular counseling Indication:Coronary artery disease Start:09-Jan-2021 Instruction Type:Provider Instructions for Treatment Patient Instructions Indication:BMI 28.0-28.9,adult Start:09-Jan-2021 Instruction Type:Provider Instructions for Treatment How to Access Health Informa tion Online using Patient Portal and [employer] Apps Indication:BMI 28.0-28.9,adult Start:09-Jan-2021 Instruction Type:Patient Education How to Access Health Informa tion Online using Patient Portal and [employer] Apps Indication:Non-smoker Start:31-Oct-2020 Instruction Type:Patient Education Patient Instructions Indication:Non-smoker Start:31-Oct-2020 Instruction Type:Provider Instructions for Treatment Patient Instructions Indication:BMI 30.0-30.9,adult Start:15-Aug-2020 Instruction Type:Provider Instructions for Treatment How to Access Health Informa tion Online using Patient Portal and [employer] Apps Indication:BMI 30.0-30.9,adult Start:15-Aug-2020 Instruction Type:Patient Education How to Access Health Informa tion Online using Patient Portal and [employer] Apps Indication:Non-smoker Start:25-Jul-2020 Instruction Type:Patient Education Patient Instructions Indication:Non-smoker Start:25-Jul-2020 Instruction Type:Provider Instructions for Treatment How to access health informa tion online Indication:BMI 30.0-30.9,adult Start:08-Apr-2020 Instruction Type:Patient Education How to access health informa tion online - Detail Indication:BMI 30.0-30.9,adult Start:08-Apr-2020 Instruction Type:Patient Education Patient Instructions Indication:BMI 30.0-30.9,adult Start:08-Apr-2020 Instruction Type:Provider Instructions for Treatment How to access health informa tion online Indication:Non-smoker Start:28-Mar-2020 Instruction Type:Patient Education How to access health informa tion online - Detail Indication:Non-smoker Start:28-Mar-2020 Instruction Type:Patient Education Patient Instructions Indication:Non-smoker Start:28-Mar-2020 Instruction Type:Provider Instructions for Treatment How to access health informa tion online Indication:Non-smoker Start:22-Mar-2020 Instruction Type:Patient Education How to access health informa tion online - Detail Indication:Non-smoker Start:22-Mar-2020 Instruction Type:Patient Education Patient Instructions Indication:Non-smoker Start:22-Mar-2020 Instruction Type:Provider Instructions for Treatment cardiovascular counseling Indication:Coronary artery disease Start:23-Nov-2019 Instruction Type:Provider Instructions for Treatment How to access health informa tion online Indication:Non-smoker Start:23-Nov-2019 Instruction Type:Patient Education How to access health informa tion online - Detail Indication:Non-smoker Start:23-Nov-2019 Instruction Type:Patient Education Patient Instructions Indication:Non-smoker Start:23-Nov-2019 Instruction Type:Provider Instructions for Treatment How to access health informa tion online Indication:Non-smoker Start:26-May-2018 Instruction Type:Patient Education How to access health informa tion online - Detail Indication:Non-smoker Start:26-May-2018 Instruction Type:Patient Education Patient Instructions Indication:Non-smoker Start:26-May-2018 Instruction Type:Provider Instructions for Treatment Patient Instructions Indication:Lumbar stenosis with neurogenic claudication Start:01-Sep-2017 Instruction Type:Provider Instructions for Treatment How to access health informa tion online Indication:Non-smoker Start:01-Sep-2017 Instruction Type:Patient Education How to access health informa tion online - Detail Indication:Non-smoker Start:01-Sep-2017 Instruction Type:Patient Education How to access health informa tion online Indication:Non-smoker Start:13-May-2017 Instruction Type:Patient Education How to access health informa tion online - Detail Indication:Non-smoker Start:13-May-2017 Instruction Type:Patient Education Patient Instructions Indication:Non-smoker Start:13-May-2017 Instruction Type:Provider Instructions for Treatment cardiovascular counseling Indication:Coronary artery disease Start:25-Mar-2017 Instruction Type:Provider Instructions for Treatment How to access health informa tion online Indication:Non-smoker Start:25-Mar-2017 Instruction Type:Patient Education How to access health informa tion online - Detail Indication:Non-smoker Start:25-Mar-2017 Instruction Type:Patient Education Patient Instructions Indication:Non-smoker Start:25-Mar-2017 Instruction Type:Provider Instructions for Treatment How to access health informa tion online Indication:BMI 25.0-25.9,adult Start:18-Mar-2017 Instruction Type:Patient Education How to access health informa tion online - Detail Indication:BMI 25.0-25.9,adult Start:18-Mar-2017 Instruction Type:Patient Education Patient Instructions Indication:BMI 25.0-25.9,adult Start:18-Mar-2017 Instruction Type:Provider Instructions for Treatment How to access health informa tion online Indication:Pre-operative exam (Renamed from Encounter for pre-operative examination) Start:24-Nov-2016 Instruction Type:Patient Education How to access health informa tion online - Detail Indication:Pre-operative exam (Renamed from Encounter for pre-operative examination) Start:24-Nov-2016 Instruction Type:Patient Education Patient Instructions Indication:Pre-operative exam (Renamed from Encounter for pre-operative examination) Start:24-Nov-2016 Instruction Type:Provider Instructions for Treatment How to access health informa tion online Indication:Non-smoker Start:07-Oct-2016 Instruction Type:Patient Education How to access health informa tion online - Detail Indication:Non-smoker Start:07-Oct-2016 Instruction Type:Patient Education Patient Instructions Indication:Non-smoker Start:07-Oct-2016 Instruction Type:Provider Instructions for Treatment Patient Instructions Indication:Encounter for Medicare annual wellness exam Start:07-Feb-2016 Instruction Type:Provider Instructions for Treatment How to access health informa tion online Indication:Heart disease, hypertensive, malignant, without heart failure Start:15-Jan-2016 Instruction Type:Patient Education How to access health informa tion online - Detail Indication:Heart disease, hypertensive, malignant, without heart failure Start:15-Jan-2016 Instruction Type:Patient Education Patient Instructions Indication:Heart disease, hypertensive, malignant, without heart failure Start:15-Jan-2016 Instruction Type:Provider Instructions for Treatment How to access health informa tion online Indication:Dysuria Start:30-Dec-2015 Instruction Type:Patient Education How to access health informa tion online - Detail Indication:Dysuria Start:30-Dec-2015 Instruction Type:Patient Education Patient Instructions Indication:Dysuria Start:30-Dec-2015 Instruction Type:Provider Instructions for Treatment How to access health informa tion online Indication:CLAUDICATION Start:14-Feb-2015 Instruction Type:Patient Education How to access health informa tion online - Detail Indication:CLAUDICATION Start:14-Feb-2015 Instruction Type:Patient Education Patient Instructions Indication:CLAUDICATION Start:14-Feb-2015 Instruction Type:Provider Instructions for Treatment How to access health informa tion online Indication:Sebaceous cyst Start:12-Oct-2014 Instruction Type:Patient Education How to access health informa tion online - Detail Indication:Sebaceous cyst Start:12-Oct-2014 Instruction Type:Patient Education Patient Instructions Indication:Sebaceous cyst Start:12-Oct-2014 Instruction Type:Provider Instructions for Treatment [facility]; [facility] Work Phone: Instructions* Name Dates Details cardiovascular counseling Indication:Coronary artery disease Start:15-Jan-2022 Instruction Type:Provider Instructions for Treatment Patient Instructions Indication:BMI 28.0-28.9,adult Start:15-Jan-2022 Instruction Type:Provider Instructions for Treatment How to Access Health Informa tion Online using Patient Portal and [employer] Apps Indication:BMI 28.0-28.9,adult Start:15-Jan-2022 Instruction Type:Patient Education Patient Instructions Indication:Type II diabetes mellitus, well controlled Start:31-Oct-2021 Instruction Type:Provider Instructions for Treatment How to Access Health Informa tion Online using Patient Portal and [employer] Apps Indication:Type II diabetes mellitus, well controlled Start:31-Oct-2021 Instruction Type:Patient Education Patient Instructions Indication:BMI 29.0-29.9,adult Start:24-Jul-2021 Instruction Type:Provider Instructions for Treatment How to Access Health Informa tion Online using Patient Portal and [employer] Apps Indication:BMI 29.0-29.9,adult Start:24-Jul-2021 Instruction Type:Patient Education Patient Instructions Indication:Type II diabetes mellitus, well controlled Start:06-Mar-2021 Instruction Type:Provider Instructions for Treatment How to Access Health Informa tion Online using Patient Portal and [employer] Apps Indication:Type II diabetes mellitus, well controlled Start:06-Mar-2021 Instruction Type:Patient Education cardiovascular counseling Indication:Coronary artery disease Start:09-Jan-2021 Instruction Type:Provider Instructions for Treatment Patient Instructions Indication:BMI 28.0-28.9,adult Start:09-Jan-2021 Instruction Type:Provider Instructions for Treatment How to Access Health Informa tion Online using Patient Portal and [employer] Apps Indication:BMI 28.0-28.9,adult Start:09-Jan-2021 Instruction Type:Patient Education How to Access Health Informa tion Online using Patient Portal and [employer] Apps Indication:Non-smoker Start:31-Oct-2020 Instruction Type:Patient Education Patient Instructions Indication:Non-smoker Start:31-Oct-2020 Instruction Type:Provider Instructions for Treatment Patient Instructions Indication:BMI 30.0-30.9,adult Start:15-Aug-2020 Instruction Type:Provider Instructions for Treatment How to Access Health Informa tion Online using Patient Portal and [employer] Apps Indication:BMI 30.0-30.9,adult Start:15-Aug-2020 Instruction Type:Patient Education How to Access Health Informa tion Online using Patient Portal and [employer] Apps Indication:Non-smoker Start:25-Jul-2020 Instruction Type:Patient Education Patient Instructions Indication:Non-smoker Start:25-Jul-2020 Instruction Type:Provider Instructions for Treatment How to access health informa tion online Indication:BMI 30.0-30.9,adult Start:08-Apr-2020 Instruction Type:Patient Education How to access health informa tion online - Detail Indication:BMI 30.0-30.9,adult Start:08-Apr-2020 Instruction Type:Patient Education Patient Instructions Indication:BMI 30.0-30.9,adult Start:08-Apr-2020 Instruction Type:Provider Instructions for Treatment How to access health informa tion online Indication:Non-smoker Start:28-Mar-2020 Instruction Type:Patient Education How to access health informa tion online - Detail Indication:Non-smoker Start:28-Mar-2020 Instruction Type:Patient Education Patient Instructions Indication:Non-smoker Start:28-Mar-2020 Instruction Type:Provider Instructions for Treatment How to access health informa tion online Indication:Non-smoker Start:22-Mar-2020 Instruction Type:Patient Education How to access health informa tion online - Detail Indication:Non-smoker Start:22-Mar-2020 Instruction Type:Patient Education Patient Instructions Indication:Non-smoker Start:22-Mar-2020 Instruction Type:Provider Instructions for Treatment cardiovascular counseling Indication:Coronary artery disease Start:23-Nov-2019 Instruction Type:Provider Instructions for Treatment How to access health informa tion online Indication:Non-smoker Start:23-Nov-2019 Instruction Type:Patient Education How to access health informa tion online - Detail Indication:Non-smoker Start:23-Nov-2019 Instruction Type:Patient Education Patient Instructions Indication:Non-smoker Start:23-Nov-2019 Instruction Type:Provider Instructions for Treatment How to access health informa tion online Indication:Non-smoker Start:26-May-2018 Instruction Type:Patient Education How to access health informa tion online - Detail Indication:Non-smoker Start:26-May-2018 Instruction Type:Patient Education Patient Instructions Indication:Non-smoker Start:26-May-2018 Instruction Type:Provider Instructions for Treatment Patient Instructions Indication:Lumbar stenosis with neurogenic claudication Start:01-Sep-2017 Instruction Type:Provider Instructions for Treatment How to access health informa tion online Indication:Non-smoker Start:01-Sep-2017 Instruction Type:Patient Education How to access health informa tion online - Detail Indication:Non-smoker Start:01-Sep-2017 Instruction Type:Patient Education How to access health informa tion online Indication:Non-smoker Start:13-May-2017 Instruction Type:Patient Education How to access health informa tion online - Detail Indication:Non-smoker Start:13-May-2017 Instruction Type:Patient Education Patient Instructions Indication:Non-smoker Start:13-May-2017 Instruction Type:Provider Instructions for Treatment cardiovascular counseling Indication:Coronary artery disease Start:25-Mar-2017 Instruction Type:Provider Instructions for Treatment How to access health informa tion online Indication:Non-smoker Start:25-Mar-2017 Instruction Type:Patient Education How to access health informa tion online - Detail Indication:Non-smoker Start:25-Mar-2017 Instruction Type:Patient Education Patient Instructions Indication:Non-smoker Start:25-Mar-2017 Instruction Type:Provider Instructions for Treatment How to access health informa tion online Indication:BMI 25.0-25.9,adult Start:18-Mar-2017 Instruction Type:Patient Education How to access health informa tion online - Detail Indication:BMI 25.0-25.9,adult Start:18-Mar-2017 Instruction Type:Patient Education Patient Instructions Indication:BMI 25.0-25.9,adult Start:18-Mar-2017 Instruction Type:Provider Instructions for Treatment How to access health informa tion online Indication:Pre-operative exam (Renamed from Encounter for pre-operative examination) Start:24-Nov-2016 Instruction Type:Patient Education How to access health informa tion online - Detail Indication:Pre-operative exam (Renamed from Encounter for pre-operative examination) Start:24-Nov-2016 Instruction Type:Patient Education Patient Instructions Indication:Pre-operative exam (Renamed from Encounter for pre-operative examination) Start:24-Nov-2016 Instruction Type:Provider Instructions for Treatment How to access health informa tion online Indication:Non-smoker Start:07-Oct-2016 Instruction Type:Patient Education How to access health informa tion online - Detail Indication:Non-smoker Start:07-Oct-2016 Instruction Type:Patient Education Patient Instructions Indication:Non-smoker Start:07-Oct-2016 Instruction Type:Provider Instructions for Treatment Patient Instructions Indication:Encounter for Medicare annual wellness exam Start:07-Feb-2016 Instruction Type:Provider Instructions for Treatment How to access health informa tion online Indication:Heart disease, hypertensive, malignant, without heart failure Start:15-Jan-2016 Instruction Type:Patient Education How to access health informa tion online - Detail Indication:Heart disease, hypertensive, malignant, without heart failure Start:15-Jan-2016 Instruction Type:Patient Education Patient Instructions Indication:Heart disease, hypertensive, malignant, without heart failure Start:15-Jan-2016 Instruction Type:Provider Instructions for Treatment How to access health informa tion online Indication:Dysuria Start:30-Dec-2015 Instruction Type:Patient Education How to access health informa tion online - Detail Indication:Dysuria Start:30-Dec-2015 Instruction Type:Patient Education Patient Instructions Indication:Dysuria Start:30-Dec-2015 Instruction Type:Provider Instructions for Treatment How to access health informa tion online Indication:CLAUDICATION Start:14-Feb-2015 Instruction Type:Patient Education How to access health informa tion online - Detail Indication:CLAUDICATION Start:14-Feb-2015 Instruction Type:Patient Education Patient Instructions Indication:CLAUDICATION Start:14-Feb-2015 Instruction Type:Provider Instructions for Treatment How to access health informa tion online Indication:Sebaceous cyst Start:12-Oct-2014 Instruction Type:Patient Education How to access health informa tion online - Detail Indication:Sebaceous cyst Start:12-Oct-2014 Instruction Type:Patient Education Patient Instructions Indication:Sebaceous cyst Start:12-Oct-2014 Instruction Type:Provider Instructions for Treatment [facility]; [facility] Work Phone: Instructions* Name Dates Details Patient Instructions Indication:Non-smoker Start:04-Mar-2022 Instruction Type:Provider Instructions for Treatment How to Access Health Informa tion Online using Patient Portal and [employer] Apps Indication:Non-smoker Start:04-Mar-2022 Instruction Type:Patient Education cardiovascular counseling Indication:Coronary artery disease Start:15-Jan-2022 Instruction Type:Provider Instructions for Treatment Patient Instructions Indication:BMI 28.0-28.9,adult Start:15-Jan-2022 Instruction Type:Provider Instructions for Treatment How to Access Health Informa tion Online using Patient Portal and [employer] Apps Indication:BMI 28.0-28.9,adult Start:15-Jan-2022 Instruction Type:Patient Education Patient Instructions Indication:Type II diabetes mellitus, well controlled Start:31-Oct-2021 Instruction Type:Provider Instructions for Treatment How to Access Health Informa tion Online using Patient Portal and [employer] Apps Indication:Type II diabetes mellitus, well controlled Start:31-Oct-2021 Instruction Type:Patient Education Patient Instructions Indication:BMI 29.0-29.9,adult Start:24-Jul-2021 Instruction Type:Provider Instructions for Treatment How to Access Health Informa tion Online using Patient Portal and [employer] Apps Indication:BMI 29.0-29.9,adult Start:24-Jul-2021 Instruction Type:Patient Education Patient Instructions Indication:Type II diabetes mellitus, well controlled Start:06-Mar-2021 Instruction Type:Provider Instructions for Treatment How to Access Health Informa tion Online using Patient Portal and [employer] Apps Indication:Type II diabetes mellitus, well controlled Start:06-Mar-2021 Instruction Type:Patient Education cardiovascular counseling Indication:Coronary artery disease Start:09-Jan-2021 Instruction Type:Provider Instructions for Treatment Patient Instructions Indication:BMI 28.0-28.9,adult Start:09-Jan-2021 Instruction Type:Provider Instructions for Treatment How to Access Health Informa tion Online using Patient Portal and [employer] Apps Indication:BMI 28.0-28.9,adult Start:09-Jan-2021 Instruction Type:Patient Education How to Access Health Informa tion Online using Patient Portal and [employer] Apps Indication:Non-smoker Start:31-Oct-2020 Instruction Type:Patient Education Patient Instructions Indication:Non-smoker Start:31-Oct-2020 Instruction Type:Provider Instructions for Treatment Patient Instructions Indication:BMI 30.0-30.9,adult Start:15-Aug-2020 Instruction Type:Provider Instructions for Treatment How to Access Health Informa tion Online using Patient Portal and [employer] Apps Indication:BMI 30.0-30.9,adult Start:15-Aug-2020 Instruction Type:Patient Education How to Access Health Informa tion Online using Patient Portal and [employer] Apps Indication:Non-smoker Start:25-Jul-2020 Instruction Type:Patient Education Patient Instructions Indication:Non-smoker Start:25-Jul-2020 Instruction Type:Provider Instructions for Treatment How to access health informa tion online Indication:BMI 30.0-30.9,adult Start:08-Apr-2020 Instruction Type:Patient Education How to access health informa tion online - Detail Indication:BMI 30.0-30.9,adult Start:08-Apr-2020 Instruction Type:Patient Education Patient Instructions Indication:BMI 30.0-30.9,adult Start:08-Apr-2020 Instruction Type:Provider Instructions for Treatment How to access health informa tion online Indication:Non-smoker Start:28-Mar-2020 Instruction Type:Patient Education How to access health informa tion online - Detail Indication:Non-smoker Start:28-Mar-2020 Instruction Type:Patient Education Patient Instructions Indication:Non-smoker Start:28-Mar-2020 Instruction Type:Provider Instructions for Treatment How to access health informa tion online Indication:Non-smoker Start:22-Mar-2020 Instruction Type:Patient Education How to access health informa tion online - Detail Indication:Non-smoker Start:22-Mar-2020 Instruction Type:Patient Education Patient Instructions Indication:Non-smoker Start:22-Mar-2020 Instruction Type:Provider Instructions for Treatment cardiovascular counseling Indication:Coronary artery disease Start:23-Nov-2019 Instruction Type:Provider Instructions for Treatment How to access health informa tion online Indication:Non-smoker Start:23-Nov-2019 Instruction Type:Patient Education How to access health informa tion online - Detail Indication:Non-smoker Start:23-Nov-2019 Instruction Type:Patient Education Patient Instructions Indication:Non-smoker Start:23-Nov-2019 Instruction Type:Provider Instructions for Treatment How to access health informa tion online Indication:Non-smoker Start:26-May-2018 Instruction Type:Patient Education How to access health informa tion online - Detail Indication:Non-smoker Start:26-May-2018 Instruction Type:Patient Education Patient Instructions Indication:Non-smoker Start:26-May-2018 Instruction Type:Provider Instructions for Treatment Patient Instructions Indication:Lumbar stenosis with neurogenic claudication Start:01-Sep-2017 Instruction Type:Provider Instructions for Treatment How to access health informa tion online Indication:Non-smoker Start:01-Sep-2017 Instruction Type:Patient Education How to access health informa tion online - Detail Indication:Non-smoker Start:01-Sep-2017 Instruction Type:Patient Education How to access health informa tion online Indication:Non-smoker Start:13-May-2017 Instruction Type:Patient Education How to access health informa tion online - Detail Indication:Non-smoker Start:13-May-2017 Instruction Type:Patient Education Patient Instructions Indication:Non-smoker Start:13-May-2017 Instruction Type:Provider Instructions for Treatment cardiovascular counseling Indication:Coronary artery disease Start:25-Mar-2017 Instruction Type:Provider Instructions for Treatment How to access health informa tion online Indication:Non-smoker Start:25-Mar-2017 Instruction Type:Patient Education How to access health informa tion online - Detail Indication:Non-smoker Start:25-Mar-2017 Instruction Type:Patient Education Patient Instructions Indication:Non-smoker Start:25-Mar-2017 Instruction Type:Provider Instructions for Treatment How to access health informa tion online Indication:BMI 25.0-25.9,adult Start:18-Mar-2017 Instruction Type:Patient Education How to access health informa tion online - Detail Indication:BMI 25.0-25.9,adult Start:18-Mar-2017 Instruction Type:Patient Education Patient Instructions Indication:BMI 25.0-25.9,adult Start:18-Mar-2017 Instruction Type:Provider Instructions for Treatment How to access health informa tion online Indication:Pre-operative exam (Renamed from Encounter for pre-operative examination) Start:24-Nov-2016 Instruction Type:Patient Education How to access health informa tion online - Detail Indication:Pre-operative exam (Renamed from Encounter for pre-operative examination) Start:24-Nov-2016 Instruction Type:Patient Education Patient Instructions Indication:Pre-operative exam (Renamed from Encounter for pre-operative examination) Start:24-Nov-2016 Instruction Type:Provider Instructions for Treatment How to access health informa tion online Indication:Non-smoker Start:07-Oct-2016 Instruction Type:Patient Education How to access health informa tion online - Detail Indication:Non-smoker Start:07-Oct-2016 Instruction Type:Patient Education Patient Instructions Indication:Non-smoker Start:07-Oct-2016 Instruction Type:Provider Instructions for Treatment Patient Instructions Indication:Encounter for Medicare annual wellness exam Start:07-Feb-2016 Instruction Type:Provider Instructions for Treatment How to access health informa tion online Indication:Heart disease, hypertensive, malignant, without heart failure Start:15-Jan-2016 Instruction Type:Patient Education How to access health informa tion online - Detail Indication:Heart disease, hypertensive, malignant, without heart failure Start:15-Jan-2016 Instruction Type:Patient Education Patient Instructions Indication:Heart disease, hypertensive, malignant, without heart failure Start:15-Jan-2016 Instruction Type:Provider Instructions for Treatment How to access health informa tion online Indication:Dysuria Start:30-Dec-2015 Instruction Type:Patient Education How to access health informa tion online - Detail Indication:Dysuria Start:30-Dec-2015 Instruction Type:Patient Education Patient Instructions Indication:Dysuria Start:30-Dec-2015 Instruction Type:Provider Instructions for Treatment How to access health informa tion online Indication:CLAUDICATION Start:14-Feb-2015 Instruction Type:Patient Education How to access health informa tion online - Detail Indication:CLAUDICATION Start:14-Feb-2015 Instruction Type:Patient Education Patient Instructions Indication:CLAUDICATION Start:14-Feb-2015 Instruction Type:Provider Instructions for Treatment How to access health informa tion online Indication:Sebaceous cyst Start:12-Oct-2014 Instruction Type:Patient Education How to access health informa tion online - Detail Indication:Sebaceous cyst Start:12-Oct-2014 Instruction Type:Patient Education Patient Instructions Indication:Sebaceous cyst Start:12-Oct-2014 Instruction Type:Provider Instructions for Treatment [facility]; [facility] Work Phone: Instructions* Name Dates Details Patient Instructions Indication:Non-smoker Start:04-Mar-2022 Instruction Type:Provider Instructions for Treatment How to Access Health Informa tion Online using Patient Portal and [employer] Apps Indication:Non-smoker Start:04-Mar-2022 Instruction Type:Patient Education cardiovascular counseling Indication:Coronary artery disease Start:15-Jan-2022 Instruction Type:Provider Instructions for Treatment Patient Instructions Indication:BMI 28.0-28.9,adult Start:15-Jan-2022 Instruction Type:Provider Instructions for Treatment How to Access Health Informa tion Online using Patient Portal and [employer] Apps Indication:BMI 28.0-28.9,adult Start:15-Jan-2022 Instruction Type:Patient Education Patient Instructions Indication:Type II diabetes mellitus, well controlled Start:31-Oct-2021 Instruction Type:Provider Instructions for Treatment How to Access Health Informa tion Online using Patient Portal and [employer] Apps Indication:Type II diabetes mellitus, well controlled Start:31-Oct-2021 Instruction Type:Patient Education Patient Instructions Indication:BMI 29.0-29.9,adult Start:24-Jul-2021 Instruction Type:Provider Instructions for Treatment How to Access Health Informa tion Online using Patient Portal and [employer] Apps Indication:BMI 29.0-29.9,adult Start:24-Jul-2021 Instruction Type:Patient Education Patient Instructions Indication:Type II diabetes mellitus, well controlled Start:06-Mar-2021 Instruction Type:Provider Instructions for Treatment How to Access Health Informa tion Online using Patient Portal and [employer] Apps Indication:Type II diabetes mellitus, well controlled Start:06-Mar-2021 Instruction Type:Patient Education cardiovascular counseling Indication:Coronary artery disease Start:09-Jan-2021 Instruction Type:Provider Instructions for Treatment Patient Instructions Indication:BMI 28.0-28.9,adult Start:09-Jan-2021 Instruction Type:Provider Instructions for Treatment How to Access Health Informa tion Online using Patient Portal and [employer] Apps Indication:BMI 28.0-28.9,adult Start:09-Jan-2021 Instruction Type:Patient Education How to Access Health Informa tion Online using Patient Portal and [employer] Apps Indication:Non-smoker Start:31-Oct-2020 Instruction Type:Patient Education Patient Instructions Indication:Non-smoker Start:31-Oct-2020 Instruction Type:Provider Instructions for Treatment Patient Instructions Indication:BMI 30.0-30.9,adult Start:15-Aug-2020 Instruction Type:Provider Instructions for Treatment How to Access Health Informa tion Online using Patient Portal and [employer] Apps Indication:BMI 30.0-30.9,adult Start:15-Aug-2020 Instruction Type:Patient Education How to Access Health Informa tion Online using Patient Portal and [employer] Apps Indication:Non-smoker Start:25-Jul-2020 Instruction Type:Patient Education Patient Instructions Indication:Non-smoker Start:25-Jul-2020 Instruction Type:Provider Instructions for Treatment How to access health informa tion online Indication:BMI 30.0-30.9,adult Start:08-Apr-2020 Instruction Type:Patient Education How to access health informa tion online - Detail Indication:BMI 30.0-30.9,adult Start:08-Apr-2020 Instruction Type:Patient Education Patient Instructions Indication:BMI 30.0-30.9,adult Start:08-Apr-2020 Instruction Type:Provider Instructions for Treatment How to access health informa tion online Indication:Non-smoker Start:28-Mar-2020 Instruction Type:Patient Education How to access health informa tion online - Detail Indication:Non-smoker Start:28-Mar-2020 Instruction Type:Patient Education Patient Instructions Indication:Non-smoker Start:28-Mar-2020 Instruction Type:Provider Instructions for Treatment How to access health informa tion online Indication:Non-smoker Start:22-Mar-2020 Instruction Type:Patient Education How to access health informa tion online - Detail Indication:Non-smoker Start:22-Mar-2020 Instruction Type:Patient Education Patient Instructions Indication:Non-smoker Start:22-Mar-2020 Instruction Type:Provider Instructions for Treatment cardiovascular counseling Indication:Coronary artery disease Start:23-Nov-2019 Instruction Type:Provider Instructions for Treatment How to access health informa tion online Indication:Non-smoker Start:23-Nov-2019 Instruction Type:Patient Education How to access health informa tion online - Detail Indication:Non-smoker Start:23-Nov-2019 Instruction Type:Patient Education Patient Instructions Indication:Non-smoker Start:23-Nov-2019 Instruction Type:Provider Instructions for Treatment How to access health informa tion online Indication:Non-smoker Start:26-May-2018 Instruction Type:Patient Education How to access health informa tion online - Detail Indication:Non-smoker Start:26-May-2018 Instruction Type:Patient Education Patient Instructions Indication:Non-smoker Start:26-May-2018 Instruction Type:Provider Instructions for Treatment Patient Instructions Indication:Lumbar stenosis with neurogenic claudication Start:01-Sep-2017 Instruction Type:Provider Instructions for Treatment How to access health informa tion online Indication:Non-smoker Start:01-Sep-2017 Instruction Type:Patient Education How to access health informa tion online - Detail Indication:Non-smoker Start:01-Sep-2017 Instruction Type:Patient Education How to access health informa tion online Indication:Non-smoker Start:13-May-2017 Instruction Type:Patient Education How to access health informa tion online - Detail Indication:Non-smoker Start:13-May-2017 Instruction Type:Patient Education Patient Instructions Indication:Non-smoker Start:13-May-2017 Instruction Type:Provider Instructions for Treatment cardiovascular counseling Indication:Coronary artery disease Start:25-Mar-2017 Instruction Type:Provider Instructions for Treatment How to access health informa tion online Indication:Non-smoker Start:25-Mar-2017 Instruction Type:Patient Education How to access health informa tion online - Detail Indication:Non-smoker Start:25-Mar-2017 Instruction Type:Patient Education Patient Instructions Indication:Non-smoker Start:25-Mar-2017 Instruction Type:Provider Instructions for Treatment How to access health informa tion online Indication:BMI 25.0-25.9,adult Start:18-Mar-2017 Instruction Type:Patient Education How to access health informa tion online - Detail Indication:BMI 25.0-25.9,adult Start:18-Mar-2017 Instruction Type:Patient Education Patient Instructions Indication:BMI 25.0-25.9,adult Start:18-Mar-2017 Instruction Type:Provider Instructions for Treatment How to access health informa tion online Indication:Pre-operative exam (Renamed from Encounter for pre-operative examination) Start:24-Nov-2016 Instruction Type:Patient Education How to access health informa tion online - Detail Indication:Pre-operative exam (Renamed from Encounter for pre-operative examination) Start:24-Nov-2016 Instruction Type:Patient Education Patient Instructions Indication:Pre-operative exam (Renamed from Encounter for pre-operative examination) Start:24-Nov-2016 Instruction Type:Provider Instructions for Treatment How to access health informa tion online Indication:Non-smoker Start:07-Oct-2016 Instruction Type:Patient Education How to access health informa tion online - Detail Indication:Non-smoker Start:07-Oct-2016 Instruction Type:Patient Education Patient Instructions Indication:Non-smoker Start:07-Oct-2016 Instruction Type:Provider Instructions for Treatment Patient Instructions Indication:Encounter for Medicare annual wellness exam Start:07-Feb-2016 Instruction Type:Provider Instructions for Treatment How to access health informa tion online Indication:Heart disease, hypertensive, malignant, without heart failure Start:15-Jan-2016 Instruction Type:Patient Education How to access health informa tion online - Detail Indication:Heart disease, hypertensive, malignant, without heart failure Start:15-Jan-2016 Instruction Type:Patient Education Patient Instructions Indication:Heart disease, hypertensive, malignant, without heart failure Start:15-Jan-2016 Instruction Type:Provider Instructions for Treatment How to access health informa tion online Indication:Dysuria Start:30-Dec-2015 Instruction Type:Patient Education How to access health informa tion online - Detail Indication:Dysuria Start:30-Dec-2015 Instruction Type:Patient Education Patient Instructions Indication:Dysuria Start:30-Dec-2015 Instruction Type:Provider Instructions for Treatment How to access health informa tion online Indication:CLAUDICATION Start:14-Feb-2015 Instruction Type:Patient Education How to access health informa tion online - Detail Indication:CLAUDICATION Start:14-Feb-2015 Instruction Type:Patient Education Patient Instructions Indication:CLAUDICATION Start:14-Feb-2015 Instruction Type:Provider Instructions for Treatment How to access health informa tion online Indication:Sebaceous cyst Start:12-Oct-2014 Instruction Type:Patient Education How to access health informa tion online - Detail Indication:Sebaceous cyst Start:12-Oct-2014 Instruction Type:Patient Education Patient Instructions Indication:Sebaceous cyst Start:12-Oct-2014 Instruction Type:Provider Instructions for Treatment [facility]; [facility] Work Phone: [phone]* Name Dates Details Patient Instructions Indication:Non-smoker Start:04-Mar-2022 Instruction Type:Provider Instructions for Treatment How to Access Health Informa tion Online using Patient Portal and [employer] Apps Indication:Non-smoker Start:04-Mar-2022 Instruction Type:Patient Education cardiovascular counseling Indication:Coronary artery disease Start:15-Jan-2022 Instruction Type:Provider Instructions for Treatment Patient Instructions Indication:BMI 28.0-28.9,adult Start:15-Jan-2022 Instruction Type:Provider Instructions for Treatment How to Access Health Informa tion Online using Patient Portal and [employer] Apps Indication:BMI 28.0-28.9,adult Start:15-Jan-2022 Instruction Type:Patient Education Patient Instructions Indication:Type II diabetes mellitus, well controlled Start:31-Oct-2021 Instruction Type:Provider Instructions for Treatment How to Access Health Informa tion Online using Patient Portal and [employer] Apps Indication:Type II diabetes mellitus, well controlled Start:31-Oct-2021 Instruction Type:Patient Education Patient Instructions Indication:BMI 29.0-29.9,adult Start:24-Jul-2021 Instruction Type:Provider Instructions for Treatment How to Access Health Informa tion Online using Patient Portal and [employer] Apps Indication:BMI 29.0-29.9,adult Start:24-Jul-2021 Instruction Type:Patient Education Patient Instructions Indication:Type II diabetes mellitus, well controlled Start:06-Mar-2021 Instruction Type:Provider Instructions for Treatment How to Access Health Informa tion Online using Patient Portal and [employer] Apps Indication:Type II diabetes mellitus, well controlled Start:06-Mar-2021 Instruction Type:Patient Education cardiovascular counseling Indication:Coronary artery disease Start:09-Jan-2021 Instruction Type:Provider Instructions for Treatment Patient Instructions Indication:BMI 28.0-28.9,adult Start:09-Jan-2021 Instruction Type:Provider Instructions for Treatment How to Access Health Informa tion Online using Patient Portal and [employer] Apps Indication:BMI 28.0-28.9,adult Start:09-Jan-2021 Instruction Type:Patient Education How to Access Health Informa tion Online using Patient Portal and [employer] Apps Indication:Non-smoker Start:31-Oct-2020 Instruction Type:Patient Education Patient Instructions Indication:Non-smoker Start:31-Oct-2020 Instruction Type:Provider Instructions for Treatment Patient Instructions Indication:BMI 30.0-30.9,adult Start:15-Aug-2020 Instruction Type:Provider Instructions for Treatment How to Access Health Informa tion Online using Patient Portal and [employer] Apps Indication:BMI 30.0-30.9,adult Start:15-Aug-2020 Instruction Type:Patient Education How to Access Health Informa tion Online using Patient Portal and [employer] Apps Indication:Non-smoker Start:25-Jul-2020 Instruction Type:Patient Education Patient Instructions Indication:Non-smoker Start:25-Jul-2020 Instruction Type:Provider Instructions for Treatment How to access health informa tion online Indication:BMI 30.0-30.9,adult Start:08-Apr-2020 Instruction Type:Patient Education How to access health informa tion online - Detail Indication:BMI 30.0-30.9,adult Start:08-Apr-2020 Instruction Type:Patient Education Patient Instructions Indication:BMI 30.0-30.9,adult Start:08-Apr-2020 Instruction Type:Provider Instructions for Treatment How to access health informa tion online Indication:Non-smoker Start:28-Mar-2020 Instruction Type:Patient Education How to access health informa tion online - Detail Indication:Non-smoker Start:28-Mar-2020 Instruction Type:Patient Education Patient Instructions Indication:Non-smoker Start:28-Mar-2020 Instruction Type:Provider Instructions for Treatment How to access health informa tion online Indication:Non-smoker Start:22-Mar-2020 Instruction Type:Patient Education How to access health informa tion online - Detail Indication:Non-smoker Start:22-Mar-2020 Instruction Type:Patient Education Patient Instructions Indication:Non-smoker Start:22-Mar-2020 Instruction Type:Provider Instructions for Treatment cardiovascular counseling Indication:Coronary artery disease Start:23-Nov-2019 Instruction Type:Provider Instructions for Treatment How to access health informa tion online Indication:Non-smoker Start:23-Nov-2019 Instruction Type:Patient Education How to access health informa tion online - Detail Indication:Non-smoker Start:23-Nov-2019 Instruction Type:Patient Education Patient Instructions Indication:Non-smoker Start:23-Nov-2019 Instruction Type:Provider Instructions for Treatment How to access health informa tion online Indication:Non-smoker Start:26-May-2018 Instruction Type:Patient Education How to access health informa tion online - Detail Indication:Non-smoker Start:26-May-2018 Instruction Type:Patient Education Patient Instructions Indication:Non-smoker Start:26-May-2018 Instruction Type:Provider Instructions for Treatment Patient Instructions Indication:Lumbar stenosis with neurogenic claudication Start:01-Sep-2017 Instruction Type:Provider Instructions for Treatment How to access health informa tion online Indication:Non-smoker Start:01-Sep-2017 Instruction Type:Patient Education How to access health informa tion online - Detail Indication:Non-smoker Start:01-Sep-2017 Instruction Type:Patient Education How to access health informa tion online Indication:Non-smoker Start:13-May-2017 Instruction Type:Patient Education How to access health informa tion online - Detail Indication:Non-smoker Start:13-May-2017 Instruction Type:Patient Education Patient Instructions Indication:Non-smoker Start:13-May-2017 Instruction Type:Provider Instructions for Treatment cardiovascular counseling Indication:Coronary artery disease Start:25-Mar-2017 Instruction Type:Provider Instructions for Treatment How to access health informa tion online Indication:Non-smoker Start:25-Mar-2017 Instruction Type:Patient Education How to access health informa tion online - Detail Indication:Non-smoker Start:25-Mar-2017 Instruction Type:Patient Education Patient Instructions Indication:Non-smoker Start:25-Mar-2017 Instruction Type:Provider Instructions for Treatment How to access health informa tion online Indication:BMI 25.0-25.9,adult Start:18-Mar-2017 Instruction Type:Patient Education How to access health informa tion online - Detail Indication:BMI 25.0-25.9,adult Start:18-Mar-2017 Instruction Type:Patient Education Patient Instructions Indication:BMI 25.0-25.9,adult Start:18-Mar-2017 Instruction Type:Provider Instructions for Treatment How to access health informa tion online Indication:Pre-operative exam (Renamed from Encounter for pre-operative examination) Start:24-Nov-2016 Instruction Type:Patient Education How to access health informa tion online - Detail Indication:Pre-operative exam (Renamed from Encounter for pre-operative examination) Start:24-Nov-2016 Instruction Type:Patient Education Patient Instructions Indication:Pre-operative exam (Renamed from Encounter for pre-operative examination) Start:24-Nov-2016 Instruction Type:Provider Instructions for Treatment How to access health informa tion online Indication:Non-smoker Start:07-Oct-2016 Instruction Type:Patient Education How to access health informa tion online - Detail Indication:Non-smoker Start:07-Oct-2016 Instruction Type:Patient Education Patient Instructions Indication:Non-smoker Start:07-Oct-2016 Instruction Type:Provider Instructions for Treatment Patient Instructions Indication:Encounter for Medicare annual wellness exam Start:07-Feb-2016 Instruction Type:Provider Instructions for Treatment How to access health informa tion online Indication:Heart disease, hypertensive, malignant, without heart failure Start:15-Jan-2016 Instruction Type:Patient Education How to access health informa tion online - Detail Indication:Heart disease, hypertensive, malignant, without heart failure Start:15-Jan-2016 Instruction Type:Patient Education Patient Instructions Indication:Heart disease, hypertensive, malignant, without heart failure Start:15-Jan-2016 Instruction Type:Provider Instructions for Treatment How to access health informa tion online Indication:Dysuria Start:30-Dec-2015 Instruction Type:Patient Education How to access health informa tion online - Detail Indication:Dysuria Start:30-Dec-2015 Instruction Type:Patient Education Patient Instructions Indication:Dysuria Start:30-Dec-2015 Instruction Type:Provider Instructions for Treatment How to access health informa tion online Indication:CLAUDICATION Start:14-Feb-2015 Instruction Type:Patient Education How to access health informa tion online - Detail Indication:CLAUDICATION Start:14-Feb-2015 Instruction Type:Patient Education Patient Instructions Indication:CLAUDICATION Start:14-Feb-2015 Instruction Type:Provider Instructions for Treatment How to access health informa tion online Indication:Sebaceous cyst Start:12-Oct-2014 Instruction Type:Patient Education How to access health informa tion online - Detail Indication:Sebaceous cyst Start:12-Oct-2014 Instruction Type:Patient Education Patient Instructions Indication:Sebaceous cyst Start:12-Oct-2014 Instruction Type:Provider Instructions for Treatment [facility] Work Phone: Instructions* Name Dates Details How to Access Health Informa tion Online using Patient Portal and [employer] Apps Indication:BMI 28.0-28.9,adult Start:27-Aug-2022 Instruction Type:Patient Education Patient Instructions Indication:BMI 28.0-28.9,adult Start:27-Aug-2022 Instruction Type:Provider Instructions for Treatment Patient Instructions Indication:Non-smoker Start:04-Mar-2022 Instruction Type:Provider Instructions for Treatment How to Access Health Informa tion Online using Patient Portal and [employer] Apps Indication:Non-smoker Start:04-Mar-2022 Instruction Type:Patient Education cardiovascular counseling Indication:Coronary artery disease Start:15-Jan-2022 Instruction Type:Provider Instructions for Treatment Patient Instructions Indication:BMI 28.0-28.9,adult Start:15-Jan-2022 Instruction Type:Provider Instructions for Treatment How to Access Health Informa tion Online using Patient Portal and [employer] Apps Indication:BMI 28.0-28.9,adult Start:15-Jan-2022 Instruction Type:Patient Education Patient Instructions Indication:Type II diabetes mellitus, well controlled Start:31-Oct-2021 Instruction Type:Provider Instructions for Treatment How to Access Health Informa tion Online using Patient Portal and [employer] Apps Indication:Type II diabetes mellitus, well controlled Start:31-Oct-2021 Instruction Type:Patient Education Patient Instructions Indication:BMI 29.0-29.9,adult Start:24-Jul-2021 Instruction Type:Provider Instructions for Treatment How to Access Health Informa tion Online using Patient Portal and [employer] Apps Indication:BMI 29.0-29.9,adult Start:24-Jul-2021 Instruction Type:Patient Education Patient Instructions Indication:Type II diabetes mellitus, well controlled Start:06-Mar-2021 Instruction Type:Provider Instructions for Treatment How to Access Health Informa tion Online using Patient Portal and [employer] Apps Indication:Type II diabetes mellitus, well controlled Start:06-Mar-2021 Instruction Type:Patient Education cardiovascular counseling Indication:Coronary artery disease Start:09-Jan-2021 Instruction Type:Provider Instructions for Treatment Patient Instructions Indication:BMI 28.0-28.9,adult Start:09-Jan-2021 Instruction Type:Provider Instructions for Treatment How to Access Health Informa tion Online using Patient Portal and [employer] Apps Indication:BMI 28.0-28.9,adult Start:09-Jan-2021 Instruction Type:Patient Education How to Access Health Informa tion Online using Patient Portal and [employer] Apps Indication:Non-smoker Start:31-Oct-2020 Instruction Type:Patient Education Patient Instructions Indication:Non-smoker Start:31-Oct-2020 Instruction Type:Provider Instructions for Treatment Patient Instructions Indication:BMI 30.0-30.9,adult Start:15-Aug-2020 Instruction Type:Provider Instructions for Treatment How to Access Health Informa tion Online using Patient Portal and [employer] Apps Indication:BMI 30.0-30.9,adult Start:15-Aug-2020 Instruction Type:Patient Education How to Access Health Informa tion Online using Patient Portal and [employer] Apps Indication:Non-smoker Start:25-Jul-2020 Instruction Type:Patient Education Patient Instructions Indication:Non-smoker Start:25-Jul-2020 Instruction Type:Provider Instructions for Treatment How to access health informa tion online Indication:BMI 30.0-30.9,adult Start:08-Apr-2020 Instruction Type:Patient Education How to access health informa tion online - Detail Indication:BMI 30.0-30.9,adult Start:08-Apr-2020 Instruction Type:Patient Education Patient Instructions Indication:BMI 30.0-30.9,adult Start:08-Apr-2020 Instruction Type:Provider Instructions for Treatment How to access health informa tion online Indication:Non-smoker Start:28-Mar-2020 Instruction Type:Patient Education How to access health informa tion online - Detail Indication:Non-smoker Start:28-Mar-2020 Instruction Type:Patient Education Patient Instructions Indication:Non-smoker Start:28-Mar-2020 Instruction Type:Provider Instructions for Treatment How to access health informa tion online Indication:Non-smoker Start:22-Mar-2020 Instruction Type:Patient Education How to access health informa tion online - Detail Indication:Non-smoker Start:22-Mar-2020 Instruction Type:Patient Education Patient Instructions Indication:Non-smoker Start:22-Mar-2020 Instruction Type:Provider Instructions for Treatment cardiovascular counseling Indication:Coronary artery disease Start:23-Nov-2019 Instruction Type:Provider Instructions for Treatment How to access health informa tion online Indication:Non-smoker Start:23-Nov-2019 Instruction Type:Patient Education How to access health informa tion online - Detail Indication:Non-smoker Start:23-Nov-2019 Instruction Type:Patient Education Patient Instructions Indication:Non-smoker Start:23-Nov-2019 Instruction Type:Provider Instructions for Treatment How to access health informa tion online Indication:Non-smoker Start:26-May-2018 Instruction Type:Patient Education How to access health informa tion online - Detail Indication:Non-smoker Start:26-May-2018 Instruction Type:Patient Education Patient Instructions Indication:Non-smoker Start:26-May-2018 Instruction Type:Provider Instructions for Treatment Patient Instructions Indication:Lumbar stenosis with neurogenic claudication Start:01-Sep-2017 Instruction Type:Provider Instructions for Treatment How to access health informa tion online Indication:Non-smoker Start:01-Sep-2017 Instruction Type:Patient Education How to access health informa tion online - Detail Indication:Non-smoker Start:01-Sep-2017 Instruction Type:Patient Education How to access health informa tion online Indication:Non-smoker Start:13-May-2017 Instruction Type:Patient Education How to access health informa tion online - Detail Indication:Non-smoker Start:13-May-2017 Instruction Type:Patient Education Patient Instructions Indication:Non-smoker Start:13-May-2017 Instruction Type:Provider Instructions for Treatment cardiovascular counseling Indication:Coronary artery disease Start:25-Mar-2017 Instruction Type:Provider Instructions for Treatment How to access health informa tion online Indication:Non-smoker Start:25-Mar-2017 Instruction Type:Patient Education How to access health informa tion online - Detail Indication:Non-smoker Start:25-Mar-2017 Instruction Type:Patient Education Patient Instructions Indication:Non-smoker Start:25-Mar-2017 Instruction Type:Provider Instructions for Treatment How to access health informa tion online Indication:BMI 25.0-25.9,adult Start:18-Mar-2017 Instruction Type:Patient Education How to access health informa tion online - Detail Indication:BMI 25.0-25.9,adult Start:18-Mar-2017 Instruction Type:Patient Education Patient Instructions Indication:BMI 25.0-25.9,adult Start:18-Mar-2017 Instruction Type:Provider Instructions for Treatment How to access health informa tion online Indication:Pre-operative exam (Renamed from Encounter for pre-operative examination) Start:24-Nov-2016 Instruction Type:Patient Education How to access health informa tion online - Detail Indication:Pre-operative exam (Renamed from Encounter for pre-operative examination) Start:24-Nov-2016 Instruction Type:Patient Education Patient Instructions Indication:Pre-operative exam (Renamed from Encounter for pre-operative examination) Start:24-Nov-2016 Instruction Type:Provider Instructions for Treatment How to access health informa tion online Indication:Non-smoker Start:07-Oct-2016 Instruction Type:Patient Education How to access health informa tion online - Detail Indication:Non-smoker Start:07-Oct-2016 Instruction Type:Patient Education Patient Instructions Indication:Non-smoker Start:07-Oct-2016 Instruction Type:Provider Instructions for Treatment Patient Instructions Indication:Encounter for Medicare annual wellness exam Start:07-Feb-2016 Instruction Type:Provider Instructions for Treatment How to access health informa tion online Indication:Heart disease, hypertensive, malignant, without heart failure Start:15-Jan-2016 Instruction Type:Patient Education How to access health informa tion online - Detail Indication:Heart disease, hypertensive, malignant, without heart failure Start:15-Jan-2016 Instruction Type:Patient Education Patient Instructions Indication:Heart disease, hypertensive, malignant, without heart failure Start:15-Jan-2016 Instruction Type:Provider Instructions for Treatment How to access health informa tion online Indication:Dysuria Start:30-Dec-2015 Instruction Type:Patient Education How to access health informa tion online - Detail Indication:Dysuria Start:30-Dec-2015 Instruction Type:Patient Education Patient Instructions Indication:Dysuria Start:30-Dec-2015 Instruction Type:Provider Instructions for Treatment How to access health informa tion online Indication:CLAUDICATION Start:14-Feb-2015 Instruction Type:Patient Education How to access health informa tion online - Detail Indication:CLAUDICATION Start:14-Feb-2015 Instruction Type:Patient Education Patient Instructions Indication:CLAUDICATION Start:14-Feb-2015 Instruction Type:Provider Instructions for Treatment How to access health informa tion online Indication:Sebaceous cyst Start:12-Oct-2014 Instruction Type:Patient Education How to access health informa tion online - Detail Indication:Sebaceous cyst Start:12-Oct-2014 Instruction Type:Patient Education Patient Instructions Indication:Sebaceous cyst Start:12-Oct-2014 Instruction Type:Provider Instructions for Treatment [facility]; [facility] Work Phone: Instructions* Name Dates Details Patient Instructions Indication:BMI 29.0-29.9,adult Start:17-Sep-2022 Instruction Type:Provider Instructions for Treatment How to Access Health Informa tion Online using Patient Portal and [employer] Apps Indication:BMI 29.0-29.9,adult Start:17-Sep-2022 Instruction Type:Patient Education How to Access Health Informa tion Online using Patient Portal and [employer] Apps Indication:BMI 28.0-28.9,adult Start:27-Aug-2022 Instruction Type:Patient Education Patient Instructions Indication:BMI 28.0-28.9,adult Start:27-Aug-2022 Instruction Type:Provider Instructions for Treatment Patient Instructions Indication:Non-smoker Start:04-Mar-2022 Instruction Type:Provider Instructions for Treatment How to Access Health Informa tion Online using Patient Portal and [employer] Apps Indication:Non-smoker Start:04-Mar-2022 Instruction Type:Patient Education cardiovascular counseling Indication:Coronary artery disease Start:15-Jan-2022 Instruction Type:Provider Instructions for Treatment Patient Instructions Indication:BMI 28.0-28.9,adult Start:15-Jan-2022 Instruction Type:Provider Instructions for Treatment How to Access Health Informa tion Online using Patient Portal and [employer] Apps Indication:BMI 28.0-28.9,adult Start:15-Jan-2022 Instruction Type:Patient Education Patient Instructions Indication:Type II diabetes mellitus, well controlled Start:31-Oct-2021 Instruction Type:Provider Instructions for Treatment How to Access Health Informa tion Online using Patient Portal and [employer] Apps Indication:Type II diabetes mellitus, well controlled Start:31-Oct-2021 Instruction Type:Patient Education Patient Instructions Indication:BMI 29.0-29.9,adult Start:24-Jul-2021 Instruction Type:Provider Instructions for Treatment How to Access Health Informa tion Online using Patient Portal and [employer] Apps Indication:BMI 29.0-29.9,adult Start:24-Jul-2021 Instruction Type:Patient Education Patient Instructions Indication:Type II diabetes mellitus, well controlled Start:06-Mar-2021 Instruction Type:Provider Instructions for Treatment How to Access Health Informa tion Online using Patient Portal and [employer] Apps Indication:Type II diabetes mellitus, well controlled Start:06-Mar-2021 Instruction Type:Patient Education cardiovascular counseling Indication:Coronary artery disease Start:09-Jan-2021 Instruction Type:Provider Instructions for Treatment Patient Instructions Indication:BMI 28.0-28.9,adult Start:09-Jan-2021 Instruction Type:Provider Instructions for Treatment How to Access Health Informa tion Online using Patient Portal and [employer] Apps Indication:BMI 28.0-28.9,adult Start:09-Jan-2021 Instruction Type:Patient Education How to Access Health Informa tion Online using Patient Portal and [employer] Apps Indication:Non-smoker Start:31-Oct-2020 Instruction Type:Patient Education Patient Instructions Indication:Non-smoker Start:31-Oct-2020 Instruction Type:Provider Instructions for Treatment Patient Instructions Indication:BMI 30.0-30.9,adult Start:15-Aug-2020 Instruction Type:Provider Instructions for Treatment How to Access Health Informa tion Online using Patient Portal and [employer] Apps Indication:BMI 30.0-30.9,adult Start:15-Aug-2020 Instruction Type:Patient Education How to Access Health Informa tion Online using Patient Portal and [employer] Apps Indication:Non-smoker Start:25-Jul-2020 Instruction Type:Patient Education Patient Instructions Indication:Non-smoker Start:25-Jul-2020 Instruction Type:Provider Instructions for Treatment How to access health informa tion online Indication:BMI 30.0-30.9,adult Start:08-Apr-2020 Instruction Type:Patient Education How to access health informa tion online - Detail Indication:BMI 30.0-30.9,adult Start:08-Apr-2020 Instruction Type:Patient Education Patient Instructions Indication:BMI 30.0-30.9,adult Start:08-Apr-2020 Instruction Type:Provider Instructions for Treatment How to access health informa tion online Indication:Non-smoker Start:28-Mar-2020 Instruction Type:Patient Education How to access health informa tion online - Detail Indication:Non-smoker Start:28-Mar-2020 Instruction Type:Patient Education Patient Instructions Indication:Non-smoker Start:28-Mar-2020 Instruction Type:Provider Instructions for Treatment How to access health informa tion online Indication:Non-smoker Start:22-Mar-2020 Instruction Type:Patient Education How to access health informa tion online - Detail Indication:Non-smoker Start:22-Mar-2020 Instruction Type:Patient Education Patient Instructions Indication:Non-smoker Start:22-Mar-2020 Instruction Type:Provider Instructions for Treatment cardiovascular counseling Indication:Coronary artery disease Start:23-Nov-2019 Instruction Type:Provider Instructions for Treatment How to access health informa tion online Indication:Non-smoker Start:23-Nov-2019 Instruction Type:Patient Education How to access health informa tion online - Detail Indication:Non-smoker Start:23-Nov-2019 Instruction Type:Patient Education Patient Instructions Indication:Non-smoker Start:23-Nov-2019 Instruction Type:Provider Instructions for Treatment How to access health informa tion online Indication:Non-smoker Start:26-May-2018 Instruction Type:Patient Education How to access health informa tion online - Detail Indication:Non-smoker Start:26-May-2018 Instruction Type:Patient Education Patient Instructions Indication:Non-smoker Start:26-May-2018 Instruction Type:Provider Instructions for Treatment Patient Instructions Indication:Lumbar stenosis with neurogenic claudication Start:01-Sep-2017 Instruction Type:Provider Instructions for Treatment How to access health informa tion online Indication:Non-smoker Start:01-Sep-2017 Instruction Type:Patient Education How to access health informa tion online - Detail Indication:Non-smoker Start:01-Sep-2017 Instruction Type:Patient Education How to access health informa tion online Indication:Non-smoker Start:13-May-2017 Instruction Type:Patient Education How to access health informa tion online - Detail Indication:Non-smoker Start:13-May-2017 Instruction Type:Patient Education Patient Instructions Indication:Non-smoker Start:13-May-2017 Instruction Type:Provider Instructions for Treatment cardiovascular counseling Indication:Coronary artery disease Start:25-Mar-2017 Instruction Type:Provider Instructions for Treatment How to access health informa tion online Indication:Non-smoker Start:25-Mar-2017 Instruction Type:Patient Education How to access health informa tion online - Detail Indication:Non-smoker Start:25-Mar-2017 Instruction Type:Patient Education Patient Instructions Indication:Non-smoker Start:25-Mar-2017 Instruction Type:Provider Instructions for Treatment How to access health informa tion online Indication:BMI 25.0-25.9,adult Start:18-Mar-2017 Instruction Type:Patient Education How to access health informa tion online - Detail Indication:BMI 25.0-25.9,adult Start:18-Mar-2017 Instruction Type:Patient Education Patient Instructions Indication:BMI 25.0-25.9,adult Start:18-Mar-2017 Instruction Type:Provider Instructions for Treatment How to access health informa tion online Indication:Pre-operative exam (Renamed from Encounter for pre-operative examination) Start:24-Nov-2016 Instruction Type:Patient Education How to access health informa tion online - Detail Indication:Pre-operative exam (Renamed from Encounter for pre-operative examination) Start:24-Nov-2016 Instruction Type:Patient Education Patient Instructions Indication:Pre-operative exam (Renamed from Encounter for pre-operative examination) Start:24-Nov-2016 Instruction Type:Provider Instructions for Treatment How to access health informa tion online Indication:Non-smoker Start:07-Oct-2016 Instruction Type:Patient Education How to access health informa tion online - Detail Indication:Non-smoker Start:07-Oct-2016 Instruction Type:Patient Education Patient Instructions Indication:Non-smoker Start:07-Oct-2016 Instruction Type:Provider Instructions for Treatment Patient Instructions Indication:Encounter for Medicare annual wellness exam Start:07-Feb-2016 Instruction Type:Provider Instructions for Treatment How to access health informa tion online Indication:Heart disease, hypertensive, malignant, without heart failure Start:15-Jan-2016 Instruction Type:Patient Education How to access health informa tion online - Detail Indication:Heart disease, hypertensive, malignant, without heart failure Start:15-Jan-2016 Instruction Type:Patient Education Patient Instructions Indication:Heart disease, hypertensive, malignant, without heart failure Start:15-Jan-2016 Instruction Type:Provider Instructions for Treatment How to access health informa tion online Indication:Dysuria Start:30-Dec-2015 Instruction Type:Patient Education How to access health informa tion online - Detail Indication:Dysuria Start:30-Dec-2015 Instruction Type:Patient Education Patient Instructions Indication:Dysuria Start:30-Dec-2015 Instruction Type:Provider Instructions for Treatment How to access health informa tion online Indication:CLAUDICATION Start:14-Feb-2015 Instruction Type:Patient Education How to access health informa tion online - Detail Indication:CLAUDICATION Start:14-Feb-2015 Instruction Type:Patient Education Patient Instructions Indication:CLAUDICATION Start:14-Feb-2015 Instruction Type:Provider Instructions for Treatment How to access health informa tion online Indication:Sebaceous cyst Start:12-Oct-2014 Instruction Type:Patient Education How to access health informa tion online - Detail Indication:Sebaceous cyst Start:12-Oct-2014 Instruction Type:Patient Education Patient Instructions Indication:Sebaceous cyst Start:12-Oct-2014 Instruction Type:Provider Instructions for Treatment [facility]; [facility] Work Phone: progress note No data available for this section [facility] Reason for referral (narrative)No reason for [facility] Work Phone: Summary Purpose Family History No Family History Records FoundUnknown Family Member Name Dates Details First Degree Relatives Comments:Heart/Lung disease Status:Active Unknown Family Member Name Dates Details First Degree Relatives Comments:Heart/Lung disease Status:Active Unknown Family Member Name Dates Details First Degree Relatives Comments:Heart/Lung disease Status:Active Unknown Family Member Name Dates Details First Degree Relatives Comments:Heart/Lung disease Status:Active Unknown Family Member Name Dates Details First Degree Relatives Comments:Heart/Lung disease Status:Active Unknown Family Member Name Dates Details First Degree Relatives Comments:Heart/Lung disease Status:Active Unknown Family Member Name Dates Details First Degree Relatives Comments:Heart/Lung disease Status:Active Unknown Family Member Name Dates Details First Degree Relatives Comments:Heart/Lung disease Status:Active Unknown Family Member Name Dates Details First Degree Relatives Comments:Heart/Lung disease Status:Active Unknown Family Member Name Dates Details First Degree Relatives Comments:Heart/Lung disease Status:Active Unknown Family Member Name Dates Details First Degree Relatives Comments:Heart/Lung disease Status:Active Unknown Family Member Name Dates Details First Degree Relatives Comments:Heart/Lung disease Status:Active Unknown Family Member Name Dates Details First Degree Relatives Comments:Heart/Lung disease Status:Active Unknown Family Member Name Dates Details First Degree Relatives Comments:Heart/Lung disease Status:Active Unknown Family Member Name Dates Details First Degree Relatives Comments:Heart/Lung disease Status:Active Unknown Family Member Name Dates Details First Degree Relatives Comments:Heart/Lung disease Status:Active Unknown Family Member Name Dates Details First Degree Relatives Comments:Heart/Lung disease Status:Active Unknown Family Member Name Dates Details First Degree Relatives Comments:Heart/Lung disease Status:Active Unknown Family Member Name Dates Details First Degree Relatives Comments:Heart/Lung disease Status:Active Relationship Condition Age at Onset Recorded Date/T norberto father Myocardial infarction 71 Malignant neoplasm Unknown mother Bleeding in brain due to brain aneurysm U nknown brother Myocardial infarction 62 Coronary artery disease Unknown Unknown Family Member Name Dates Details First Degree Relatives Comments:Heart/Lung disease Status:Active Unknown Family Member Name Dates Details First Degree Relatives Comments:Heart/Lung disease Status:Active Unknown Family Member Name Dates Details First Degree Relatives Comments:Heart/Lung disease Status:Active Unknown Family Member Name Dates Details First Degree Relatives Comments:Heart/Lung disease Status:Active Unknown Family Member Name Dates Details First Degree Relatives Comments:Heart/Lung disease Status:Active Unknown Family Member Name Dates Details First Degree Relatives Comments:Heart/Lung disease Status:Active Unknown Family Member Name Dates Details First Degree Relatives Comments:Heart/Lung disease Status:Active Unknown Family Member Name Dates Details First Degree Relatives Comments:Heart/Lung disease Status:Active Advance Directives No Advanced Directives Records Found Name Dates Details Living Will - Effective on . Expiration date unspecified. Scanned Document is available upon request. Effective:20-Jul-2018 Name Dates Details Living Will - Effective on . Expiration date unspecified. Scanned Document is available upon request. Effective:20-Jul-2018 Name Dates Details Living Will - Effective on . Expiration date unspecified. Scanned Document is available upon request. Effective:20-Jul-2018 Name Dates Details Living Will - Effective on . Expiration date unspecified. Scanned Document is available upon request. Effective:20-Jul-2018 Name Dates Details Living Will - Effective on . Expiration date unspecified. Scanned Document is available upon request. Effective:20-Jul-2018 Name Dates Details Living Will - Effective on . Expiration date unspecified. Scanned Document is available upon request. Effective:20-Jul-2018 Name Dates Details Living Will - Effective on . Expiration date unspecified. Scanned Document is available upon request. Effective:20-Jul-2018 Name Dates Details Living Will - Effective on . Expiration date unspecified. Scanned Document is available upon request. Effective:20-Jul-2018 Name Dates Details Living Will - Effective on . Expiration date unspecified. Scanned Document is available upon request. Effective:20-Jul-2018 Name Dates Details Living Will - Effective on . Expiration date unspecified. Scanned Document is available upon request. Effective:20-Jul-2018 Immunization Registry [place] - Effective on 08/27/2020. Expiration date unspecified Effective:27-Aug-2020 Name Dates Details Living Will - Effective on . Expiration date unspecified. Scanned Document is available upon request. Effective:20-Jul-2018 Immunization Registry [place] - Effective on 08/27/2020. Expiration date unspecified Effective:27-Aug-2020 Name Dates Details Living Will - Effective on . Expiration date unspecified. Scanned Document is available upon request. Effective:20-Jul-2018 Immunization Registry [place] - Effective on 08/27/2020. Expiration date unspecified Effective:27-Aug-2020 Name Dates Details Living Will - Effective on . Expiration date unspecified. Scanned Document is available upon request. Effective:20-Jul-2018 Immunization Registry [place] - Effective on 08/27/2020. Expiration date unspecified Effective:27-Aug-2020 Name Dates Details Living Will - Effective on . Expiration date unspecified. Scanned Document is available upon request. Effective:20-Jul-2018 Immunization Registry [place] - Effective on 08/27/2020. Expiration date unspecified Effective:27-Aug-2020 Name Dates Details Living Will - Effective on . Expiration date unspecified. Scanned Document is available upon request. Effective:20-Jul-2018 Immunization Registry [place] - Effective on 08/27/2020. Expiration date unspecified Effective:27-Aug-2020 Advance Directive Response Recorded Date/ Time Advance Directives Yes June 18, 2020 11:47am Living Will Yes June 18 1 11:47am Power of Web Application Dev Specialist Yes June 18 021 11:47am Name Dates Details Living Will - Effective on . Expiration date unspecified. Scanned Document is available upon request. Effective:20-Jul-2018 Immunization Registry [place] - Effective on 08/27/2020. Expiration date unspecified Effective:27-Aug-2020 Name Dates Details Living Will - Effective on . Expiration date unspecified. Scanned Document is available upon request. Effective:20-Jul-2018 Immunization Registry [place] - Effective on 08/27/2020. Expiration date unspecified Effective:27-Aug-2020 Advance Directive Response Recorded Date/ Time Advance Directives No November 12 7:07am Living Will No November 12, 2021 7 :07am Power of Web Application Dev Specialist No November 12, 2021 7:07am Name Dates Details Living Will - Effective on . Expiration date unspecified. Scanned Document is available upon request. Effective:20-Jul-2018 Immunization Registry [place] - Effective on 08/27/2020. Expiration date unspecified Effective:27-Aug-2020 Name Dates Details Living Will - Effective on . Expiration date unspecified. Scanned Document is available upon request. Effective:20-Jul-2018 Immunization Registry [place] - Effective on 08/27/2020. Expiration date unspecified Effective:27-Aug-2020 Advance Directive Response Recorded Date/ Time Advance Directives on File Yes Octob er 2021 8:34am Name of Medical Power of Web Application Dev Specialist Danae Jolley ry- March 31, 2022 8:34am Advance Directives Yes March 31, 2022 8:34am Living Will Yes March 31 8:34am Power of Web Application Dev Specialist Yes March 31, 2022 8:34am Advance Directive Response Recorded Date/ Time Advance Directives on File Yes Octob er 2021 7:34am Name of Medical Power of Web Application Dev Specialist Danae rangel- March 31, 2022 7:34am Advance Directives Yes March 31, 2022 7:34am Living Will Yes March 31 7:34am Power of Web Application Dev Specialist Yes March 31, 2022 7:34am Name Dates Details Living Will - Effective on . Expiration date unspecified. Scanned Document is available upon request. Effective:20-Jul-2018 Immunization Registry [place] - Effective on 08/27/2020. Expiration date unspecified Effective:27-Aug-2020 Name Dates Details Living Will - Effective on . Expiration date unspecified. Scanned Document is available upon request. Effective:20-Jul-2018 Immunization Registry [place] - Effective on 08/27/2020. Expiration date unspecified Effective:27-Aug-2020 Name Dates Details Living Will - Effective on . Expiration date unspecified. Scanned Document is available upon request. Effective:20-Jul-2018 Immunization Registry [place] - Effective on 08/27/2020. Expiration date unspecified Effective:27-Aug-2020 Advance Directive Response Recorded Date/ Time Advance Directives Yes March 31, 2022 8:34am Living Will Yes March 31 8:34am Power of Web Application Dev Specialist Yes March 31, 2022 8:34am Advance Directive Response Recorded Date/ Time Advance Directives Yes March 31, 2022 7:34am Living Will Yes March 31 7:34am Power of Web Application Dev Specialist Yes March 31, 2022 7:34am Advance Directive Response Recorded Date/ Time Name of Medical Power of Web Application Dev Specialist August 25, 2023 2:12pm Advance Directives Yes March 31, 2022 8:34am Living Will Yes August 25, 2023 2:12pm Power of Web Application Dev Specialist Yes August 24 2:12pm Advance Directive Response Recorded Date/ Time Advance Directives Yes March 31, 2022 8:34am Advance Directive Response Recorded Date/ Time Living Will Yes September 29, 2024 1:45pm Do you have a Healthcare Power of Web Application Dev Specialist? Yes September 29, 2024 1:45pm Name of Medical Power of Web Application Dev Specialist [employer]SE September 29, 2024 1:45pm Advance Directives Yes March 31, 2022 8:34am Instructions Name Dates Details Non-smoker : How to access h ealth information online Indication:Non-smoker Non-smoker : How to access h ealth information online - Detail Indication:Non-smoker Non-smoker : Patient Instruc tions Indication:Non-smoker Lumbar stenosis with neuroge yashira claudication : Patient Instructions Indication:Lumbar stenosis with neurogenic claudication Coronary artery disease : ca rdiovascular counseling Indication:Coronary artery disease BMI 25.0-25.9,adult : How to access health information online Indication:BMI 25.0-25.9,adult BMI 25.0-25.9,adult : How to access health information online - Detail Indication:BMI 25.0-25.9,adult BMI 25.0-25.9,adult : Patien t Instructions Indication:BMI 25.0-25.9,adult Pre-operative exam (Renamed from Encounter for pre-operative examination) : How to access health information online Indication:Pre-operative exam (Renamed from Encounter for pre-operative examination) Pre-operative exam (Renamed from Encounter for pre-operative examination) : How to access health information online - Detail Indication:Pre-operative exam (Renamed from Encounter for pre-operative examination) Pre-operative exam (Renamed from Encounter for pre-operative examination) : Patient Instructions Indication:Pre-operative exam (Renamed from Encounter for pre-operative examination) Encounter for Medicare annua l wellness exam : Patient Instructions Indication:Encounter for Medicare annual wellness exam Heart disease, hypertensive, malignant, without heart failure : How to access health information online Indication:Heart disease, hypertensive, malignant, 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, hypertensive, malignant, without heart failure : How to access health information online - Detail Indication:Heart disease, hypertensive, malignant, 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, hypertensive, malignant, without heart failure : Patient Instructions Indication:Heart disease, hypertensive, malignant, without heart failure Dysuria : How to access heal th information online Indication:Dysuria Dysuria : How to access heal th information online - Detail Indication:Dysuria Dysuria : Patient Instructio ns Indication:Dysuria CLAUDICATION : How to access health information online Indication:CLAUDICATION CLAUDICATION : How to access health information online - Detail Indication:CLAUDICATION CLAUDICATION : Patient Instr uctions Indication:CLAUDICATION Sebaceous cyst : How to acce ss health information online Indication:Sebaceous cyst Sebaceous cyst : How to acce ss health information online - Detail Indication:Sebaceous cyst Sebaceous cyst : Patient Ins tructions Indication:Sebaceous cyst Name Dates Details How to access health informa tion online Indication:Non-smoker Start:26-May-2018 Instruction Type:Patient Education How to access health informa tion online - Detail Indication:Non-smoker Start:26-May-2018 Instruction Type:Patient Education Patient Instructions Indication:Non-smoker Start:26-May-2018 Instruction Type:Provider Instructions for Treatment Patient Instructions Indication:Lumbar stenosis with neurogenic claudication Start:01-Sep-2017 Instruction Type:Provider Instructions for Treatment How to access health informa tion online Indication:Non-smoker Start:01-Sep-2017 Instruction Type:Patient Education How to access health informa tion online - Detail Indication:Non-smoker Start:01-Sep-2017 Instruction Type:Patient Education How to access health informa tion online Indication:Non-smoker Start:13-May-2017 Instruction Type:Patient Education How to access health informa tion online - Detail Indication:Non-smoker Start:13-May-2017 Instruction Type:Patient Education Patient Instructions Indication:Non-smoker Start:13-May-2017 Instruction Type:Provider Instructions for Treatment cardiovascular counseling Indication:Coronary artery disease Start:25-Mar-2017 Instruction Type:Provider Instructions for Treatment How to access health informa tion online Indication:Non-smoker Start:25-Mar-2017 Instruction Type:Patient Education How to access health informa tion online - Detail Indication:Non-smoker Start:25-Mar-2017 Instruction Type:Patient Education Patient Instructions Indication:Non-smoker Start:25-Mar-2017 Instruction Type:Provider Instructions for Treatment How to access health informa tion online Indication:BMI 25.0-25.9,adult Start:18-Mar-2017 Instruction Type:Patient Education How to access health informa tion online - Detail Indication:BMI 25.0-25.9,adult Start:18-Mar-2017 Instruction Type:Patient Education Patient Instructions Indication:BMI 25.0-25.9,adult Start:18-Mar-2017 Instruction Type:Provider Instructions for Treatment How to access health informa tion online Indication:Pre-operative exam (Renamed from Encounter for pre-operative examination) Start:24-Nov-2016 Instruction Type:Patient Education How to access health informa tion online - Detail Indication:Pre-operative exam (Renamed from Encounter for pre-operative examination) Start:24-Nov-2016 Instruction Type:Patient Education Patient Instructions Indication:Pre-operative exam (Renamed from Encounter for pre-operative examination) Start:24-Nov-2016 Instruction Type:Provider Instructions for Treatment How to access health informa tion online Indication:Non-smoker Start:07-Oct-2016 Instruction Type:Patient Education How to access health informa tion online - Detail Indication:Non-smoker Start:07-Oct-2016 Instruction Type:Patient Education Patient Instructions Indication:Non-smoker Start:07-Oct-2016 Instruction Type:Provider Instructions for Treatment Patient Instructions Indication:Encounter for Medicare annual wellness exam Start:07-Feb-2016 Instruction Type:Provider Instructions for Treatment How to access health informa tion online Indication:Heart disease, hypertensive, malignant, without heart failure Start:15-Jan-2016 Instruction Type:Patient Education How to access health informa tion online - Detail Indication:Heart disease, hypertensive, malignant, without heart failure Start:15-Jan-2016 Instruction Type:Patient Education Patient Instructions Indication:Heart disease, hypertensive, malignant, without heart failure Start:15-Jan-2016 Instruction Type:Provider Instructions for Treatment How to access health informa tion online Indication:Dysuria Start:30-Dec-2015 Instruction Type:Patient Education How to access health informa tion online - Detail Indication:Dysuria Start:30-Dec-2015 Instruction Type:Patient Education Patient Instructions Indication:Dysuria Start:30-Dec-2015 Instruction Type:Provider Instructions for Treatment How to access health informa tion online Indication:CLAUDICATION Start:14-Feb-2015 Instruction Type:Patient Education How to access health informa tion online - Detail Indication:CLAUDICATION Start:14-Feb-2015 Instruction Type:Patient Education Patient Instructions Indication:CLAUDICATION Start:14-Feb-2015 Instruction Type:Provider Instructions for Treatment How to access health informa tion online Indication:Sebaceous cyst Start:12-Oct-2014 Instruction Type:Patient Education How to access health informa tion online - Detail Indication:Sebaceous cyst Start:12-Oct-2014 Instruction Type:Patient Education Patient Instructions Indication:Sebaceous cyst Start:12-Oct-2014 Instruction Type:Provider Instructions for Treatment Name Dates Details cardiovascular counseling Indication:Coronary artery disease Start:23-Nov-2019 Instruction Type:Provider Instructions for Treatment How to access health informa tion online Indication:Non-smoker Start:23-Nov-2019 Instruction Type:Patient Education How to access health informa tion online - Detail Indication:Non-smoker Start:23-Nov-2019 Instruction Type:Patient Education Patient Instructions Indication:Non-smoker Start:23-Nov-2019 Instruction Type:Provider Instructions for Treatment How to access health informa tion online Indication:Non-smoker Start:26-May-2018 Instruction Type:Patient Education How to access health informa tion online - Detail Indication:Non-smoker Start:26-May-2018 Instruction Type:Patient Education Patient Instructions Indication:Non-smoker Start:26-May-2018 Instruction Type:Provider Instructions for Treatment Patient Instructions Indication:Lumbar stenosis with neurogenic claudication Start:01-Sep-2017 Instruction Type:Provider Instructions for Treatment How to access health informa tion online Indication:Non-smoker Start:01-Sep-2017 Instruction Type:Patient Education How to access health informa tion online - Detail Indication:Non-smoker Start:01-Sep-2017 Instruction Type:Patient Education How to access health informa tion online Indication:Non-smoker Start:13-May-2017 Instruction Type:Patient Education How to access health informa tion online - Detail Indication:Non-smoker Start:13-May-2017 Instruction Type:Patient Education Patient Instructions Indication:Non-smoker Start:13-May-2017 Instruction Type:Provider Instructions for Treatment cardiovascular counseling Indication:Coronary artery disease Start:25-Mar-2017 Instruction Type:Provider Instructions for Treatment How to access health informa tion online Indication:Non-smoker Start:25-Mar-2017 Instruction Type:Patient Education How to access health informa tion online - Detail Indication:Non-smoker Start:25-Mar-2017 Instruction Type:Patient Education Patient Instructions Indication:Non-smoker Start:25-Mar-2017 Instruction Type:Provider Instructions for Treatment How to access health informa tion online Indication:BMI 25.0-25.9,adult Start:18-Mar-2017 Instruction Type:Patient Education How to access health informa tion online - Detail Indication:BMI 25.0-25.9,adult Start:18-Mar-2017 Instruction Type:Patient Education Patient Instructions Indication:BMI 25.0-25.9,adult Start:18-Mar-2017 Instruction Type:Provider Instructions for Treatment How to access health informa tion online Indication:Pre-operative exam (Renamed from Encounter for pre-operative examination) Start:24-Nov-2016 Instruction Type:Patient Education How to access health informa tion online - Detail Indication:Pre-operative exam (Renamed from Encounter for pre-operative examination) Start:24-Nov-2016 Instruction Type:Patient Education Patient Instructions Indication:Pre-operative exam (Renamed from Encounter for pre-operative examination) Start:24-Nov-2016 Instruction Type:Provider Instructions for Treatment How to access health informa tion online Indication:Non-smoker Start:07-Oct-2016 Instruction Type:Patient Education How to access health informa tion online - Detail Indication:Non-smoker Start:07-Oct-2016 Instruction Type:Patient Education Patient Instructions Indication:Non-smoker Start:07-Oct-2016 Instruction Type:Provider Instructions for Treatment Patient Instructions Indication:Encounter for Medicare annual wellness exam Start:07-Feb-2016 Instruction Type:Provider Instructions for Treatment How to access health informa tion online Indication:Heart disease, hypertensive, malignant, without heart failure Start:15-Jan-2016 Instruction Type:Patient Education How to access health informa tion online - Detail Indication:Heart disease, hypertensive, malignant, without heart failure Start:15-Jan-2016 Instruction Type:Patient Education Patient Instructions Indication:Heart disease, hypertensive, malignant, without heart failure Start:15-Jan-2016 Instruction Type:Provider Instructions for Treatment How to access health informa tion online Indication:Dysuria Start:30-Dec-2015 Instruction Type:Patient Education How to access health informa tion online - Detail Indication:Dysuria Start:30-Dec-2015 Instruction Type:Patient Education Patient Instructions Indication:Dysuria Start:30-Dec-2015 Instruction Type:Provider Instructions for Treatment How to access health informa tion online Indication:CLAUDICATION Start:14-Feb-2015 Instruction Type:Patient Education How to access health informa tion online - Detail Indication:CLAUDICATION Start:14-Feb-2015 Instruction Type:Patient Education Patient Instructions Indication:CLAUDICATION Start:14-Feb-2015 Instruction Type:Provider Instructions for Treatment How to access health informa tion online Indication:Sebaceous cyst Start:12-Oct-2014 Instruction Type:Patient Education How to access health informa tion online - Detail Indication:Sebaceous cyst Start:12-Oct-2014 Instruction Type:Patient Education Patient Instructions Indication:Sebaceous cyst Start:12-Oct-2014 Instruction Type:Provider Instructions for Treatment Name Dates Details How to access health informa tion online Indication:Non-smoker Start:22-Mar-2020 Instruction Type:Patient Education How to access health informa tion online - Detail Indication:Non-smoker Start:22-Mar-2020 Instruction Type:Patient Education Patient Instructions Indication:Non-smoker Start:22-Mar-2020 Instruction Type:Provider Instructions for Treatment cardiovascular counseling Indication:Coronary artery disease Start:23-Nov-2019 Instruction Type:Provider Instructions for Treatment How to access health informa tion online Indication:Non-smoker Start:23-Nov-2019 Instruction Type:Patient Education How to access health informa tion online - Detail Indication:Non-smoker Start:23-Nov-2019 Instruction Type:Patient Education Patient Instructions Indication:Non-smoker Start:23-Nov-2019 Instruction Type:Provider Instructions for Treatment How to access health informa tion online Indication:Non-smoker Start:26-May-2018 Instruction Type:Patient Education How to access health informa tion online - Detail Indication:Non-smoker Start:26-May-2018 Instruction Type:Patient Education Patient Instructions Indication:Non-smoker Start:26-May-2018 Instruction Type:Provider Instructions for Treatment Patient Instructions Indication:Lumbar stenosis with neurogenic claudication Start:01-Sep-2017 Instruction Type:Provider Instructions for Treatment How to access health informa tion online Indication:Non-smoker Start:01-Sep-2017 Instruction Type:Patient Education How to access health informa tion online - Detail Indication:Non-smoker Start:01-Sep-2017 Instruction Type:Patient Education How to access health informa tion online Indication:Non-smoker Start:13-May-2017 Instruction Type:Patient Education How to access health informa tion online - Detail Indication:Non-smoker Start:13-May-2017 Instruction Type:Patient Education Patient Instructions Indication:Non-smoker Start:13-May-2017 Instruction Type:Provider Instructions for Treatment cardiovascular counseling Indication:Coronary artery disease Start:25-Mar-2017 Instruction Type:Provider Instructions for Treatment How to access health informa tion online Indication:Non-smoker Start:25-Mar-2017 Instruction Type:Patient Education How to access health informa tion online - Detail Indication:Non-smoker Start:25-Mar-2017 Instruction Type:Patient Education Patient Instructions Indication:Non-smoker Start:25-Mar-2017 Instruction Type:Provider Instructions for Treatment How to access health informa tion online Indication:BMI 25.0-25.9,adult Start:18-Mar-2017 Instruction Type:Patient Education How to access health informa tion online - Detail Indication:BMI 25.0-25.9,adult Start:18-Mar-2017 Instruction Type:Patient Education Patient Instructions Indication:BMI 25.0-25.9,adult Start:18-Mar-2017 Instruction Type:Provider Instructions for Treatment How to access health informa tion online Indication:Pre-operative exam (Renamed from Encounter for pre-operative examination) Start:24-Nov-2016 Instruction Type:Patient Education How to access health informa tion online - Detail Indication:Pre-operative exam (Renamed from Encounter for pre-operative examination) Start:24-Nov-2016 Instruction Type:Patient Education Patient Instructions Indication:Pre-operative exam (Renamed from Encounter for pre-operative examination) Start:24-Nov-2016 Instruction Type:Provider Instructions for Treatment How to access health informa tion online Indication:Non-smoker Start:07-Oct-2016 Instruction Type:Patient Education How to access health informa tion online - Detail Indication:Non-smoker Start:07-Oct-2016 Instruction Type:Patient Education Patient Instructions Indication:Non-smoker Start:07-Oct-2016 Instruction Type:Provider Instructions for Treatment Patient Instructions Indication:Encounter for Medicare annual wellness exam Start:07-Feb-2016 Instruction Type:Provider Instructions for Treatment How to access health informa tion online Indication:Heart disease, hypertensive, malignant, without heart failure Start:15-Jan-2016 Instruction Type:Patient Education How to access health informa tion online - Detail Indication:Heart disease, hypertensive, malignant, without heart failure Start:15-Jan-2016 Instruction Type:Patient Education Patient Instructions Indication:Heart disease, hypertensive, malignant, without heart failure Start:15-Jan-2016 Instruction Type:Provider Instructions for Treatment How to access health informa tion online Indication:Dysuria Start:30-Dec-2015 Instruction Type:Patient Education How to access health informa tion online - Detail Indication:Dysuria Start:30-Dec-2015 Instruction Type:Patient Education Patient Instructions Indication:Dysuria Start:30-Dec-2015 Instruction Type:Provider Instructions for Treatment How to access health informa tion online Indication:CLAUDICATION Start:14-Feb-2015 Instruction Type:Patient Education How to access health informa tion online - Detail Indication:CLAUDICATION Start:14-Feb-2015 Instruction Type:Patient Education Patient Instructions Indication:CLAUDICATION Start:14-Feb-2015 Instruction Type:Provider Instructions for Treatment How to access health informa tion online Indication:Sebaceous cyst Start:12-Oct-2014 Instruction Type:Patient Education How to access health informa tion online - Detail Indication:Sebaceous cyst Start:12-Oct-2014 Instruction Type:Patient Education Patient Instructions Indication:Sebaceous cyst Start:12-Oct-2014 Instruction Type:Provider Instructions for Treatment Name Dates Details How to access health informa tion online Indication:Non-smoker Start:22-Mar-2020 Instruction Type:Patient Education How to access health informa tion online - Detail Indication:Non-smoker Start:22-Mar-2020 Instruction Type:Patient Education Patient Instructions Indication:Non-smoker Start:22-Mar-2020 Instruction Type:Provider Instructions for Treatment cardiovascular counseling Indication:Coronary artery disease Start:23-Nov-2019 Instruction Type:Provider Instructions for Treatment How to access health informa tion online Indication:Non-smoker Start:23-Nov-2019 Instruction Type:Patient Education How to access health informa tion online - Detail Indication:Non-smoker Start:23-Nov-2019 Instruction Type:Patient Education Patient Instructions Indication:Non-smoker Start:23-Nov-2019 Instruction Type:Provider Instructions for Treatment How to access health informa tion online Indication:Non-smoker Start:26-May-2018 Instruction Type:Patient Education How to access health informa tion online - Detail Indication:Non-smoker Start:26-May-2018 Instruction Type:Patient Education Patient Instructions Indication:Non-smoker Start:26-May-2018 Instruction Type:Provider Instructions for Treatment Patient Instructions Indication:Lumbar stenosis with neurogenic claudication Start:01-Sep-2017 Instruction Type:Provider Instructions for Treatment How to access health informa tion online Indication:Non-smoker Start:01-Sep-2017 Instruction Type:Patient Education How to access health informa tion online - Detail Indication:Non-smoker Start:01-Sep-2017 Instruction Type:Patient Education How to access health informa tion online Indication:Non-smoker Start:13-May-2017 Instruction Type:Patient Education How to access health informa tion online - Detail Indication:Non-smoker Start:13-May-2017 Instruction Type:Patient Education Patient Instructions Indication:Non-smoker Start:13-May-2017 Instruction Type:Provider Instructions for Treatment cardiovascular counseling Indication:Coronary artery disease Start:25-Mar-2017 Instruction Type:Provider Instructions for Treatment How to access health informa tion online Indication:Non-smoker Start:25-Mar-2017 Instruction Type:Patient Education How to access health informa tion online - Detail Indication:Non-smoker Start:25-Mar-2017 Instruction Type:Patient Education Patient Instructions Indication:Non-smoker Start:25-Mar-2017 Instruction Type:Provider Instructions for Treatment How to access health informa tion online Indication:BMI 25.0-25.9,adult Start:18-Mar-2017 Instruction Type:Patient Education How to access health informa tion online - Detail Indication:BMI 25.0-25.9,adult Start:18-Mar-2017 Instruction Type:Patient Education Patient Instructions Indication:BMI 25.0-25.9,adult Start:18-Mar-2017 Instruction Type:Provider Instructions for Treatment How to access health informa tion online Indication:Pre-operative exam (Renamed from Encounter for pre-operative examination) Start:24-Nov-2016 Instruction Type:Patient Education How to access health informa tion online - Detail Indication:Pre-operative exam (Renamed from Encounter for pre-operative examination) Start:24-Nov-2016 Instruction Type:Patient Education Patient Instructions Indication:Pre-operative exam (Renamed from Encounter for pre-operative examination) Start:24-Nov-2016 Instruction Type:Provider Instructions for Treatment How to access health informa tion online Indication:Non-smoker Start:07-Oct-2016 Instruction Type:Patient Education How to access health informa tion online - Detail Indication:Non-smoker Start:07-Oct-2016 Instruction Type:Patient Education Patient Instructions Indication:Non-smoker Start:07-Oct-2016 Instruction Type:Provider Instructions for Treatment Patient Instructions Indication:Encounter for Medicare annual wellness exam Start:07-Feb-2016 Instruction Type:Provider Instructions for Treatment How to access health informa tion online Indication:Heart disease, hypertensive, malignant, without heart failure Start:15-Jan-2016 Instruction Type:Patient Education How to access health informa tion online - Detail Indication:Heart disease, hypertensive, malignant, without heart failure Start:15-Jan-2016 Instruction Type:Patient Education Patient Instructions Indication:Heart disease, hypertensive, malignant, without heart failure Start:15-Jan-2016 Instruction Type:Provider Instructions for Treatment How to access health informa tion online Indication:Dysuria Start:30-Dec-2015 Instruction Type:Patient Education How to access health informa tion online - Detail Indication:Dysuria Start:30-Dec-2015 Instruction Type:Patient Education Patient Instructions Indication:Dysuria Start:30-Dec-2015 Instruction Type:Provider Instructions for Treatment How to access health informa tion online Indication:CLAUDICATION Start:14-Feb-2015 Instruction Type:Patient Education How to access health informa tion online - Detail Indication:CLAUDICATION Start:14-Feb-2015 Instruction Type:Patient Education Patient Instructions Indication:CLAUDICATION Start:14-Feb-2015 Instruction Type:Provider Instructions for Treatment How to access health informa tion online Indication:Sebaceous cyst Start:12-Oct-2014 Instruction Type:Patient Education How to access health informa tion online - Detail Indication:Sebaceous cyst Start:12-Oct-2014 Instruction Type:Patient Education Patient Instructions Indication:Sebaceous cyst Start:12-Oct-2014 Instruction Type:Provider Instructions for Treatment Name Dates Details How to access health informa tion online Indication:Non-smoker Start:28-Mar-2020 Instruction Type:Patient Education How to access health informa tion online - Detail Indication:Non-smoker Start:28-Mar-2020 Instruction Type:Patient Education Patient Instructions Indication:Non-smoker Start:28-Mar-2020 Instruction Type:Provider Instructions for Treatment How to access health informa tion online Indication:Non-smoker Start:22-Mar-2020 Instruction Type:Patient Education How to access health informa tion online - Detail Indication:Non-smoker Start:22-Mar-2020 Instruction Type:Patient Education Patient Instructions Indication:Non-smoker Start:22-Mar-2020 Instruction Type:Provider Instructions for Treatment cardiovascular counseling Indication:Coronary artery disease Start:23-Nov-2019 Instruction Type:Provider Instructions for Treatment How to access health informa tion online Indication:Non-smoker Start:23-Nov-2019 Instruction Type:Patient Education How to access health informa tion online - Detail Indication:Non-smoker Start:23-Nov-2019 Instruction Type:Patient Education Patient Instructions Indication:Non-smoker Start:23-Nov-2019 Instruction Type:Provider Instructions for Treatment How to access health informa tion online Indication:Non-smoker Start:26-May-2018 Instruction Type:Patient Education How to access health informa tion online - Detail Indication:Non-smoker Start:26-May-2018 Instruction Type:Patient Education Patient Instructions Indication:Non-smoker Start:26-May-2018 Instruction Type:Provider Instructions for Treatment Patient Instructions Indication:Lumbar stenosis with neurogenic claudication Start:01-Sep-2017 Instruction Type:Provider Instructions for Treatment How to access health informa tion online Indication:Non-smoker Start:01-Sep-2017 Instruction Type:Patient Education How to access health informa tion online - Detail Indication:Non-smoker Start:01-Sep-2017 Instruction Type:Patient Education How to access health informa tion online Indication:Non-smoker Start:13-May-2017 Instruction Type:Patient Education How to access health informa tion online - Detail Indication:Non-smoker Start:13-May-2017 Instruction Type:Patient Education Patient Instructions Indication:Non-smoker Start:13-May-2017 Instruction Type:Provider Instructions for Treatment cardiovascular counseling Indication:Coronary artery disease Start:25-Mar-2017 Instruction Type:Provider Instructions for Treatment How to access health informa tion online Indication:Non-smoker Start:25-Mar-2017 Instruction Type:Patient Education How to access health informa tion online - Detail Indication:Non-smoker Start:25-Mar-2017 Instruction Type:Patient Education Patient Instructions Indication:Non-smoker Start:25-Mar-2017 Instruction Type:Provider Instructions for Treatment How to access health informa tion online Indication:BMI 25.0-25.9,adult Start:18-Mar-2017 Instruction Type:Patient Education How to access health informa tion online - Detail Indication:BMI 25.0-25.9,adult Start:18-Mar-2017 Instruction Type:Patient Education Patient Instructions Indication:BMI 25.0-25.9,adult Start:18-Mar-2017 Instruction Type:Provider Instructions for Treatment How to access health informa tion online Indication:Pre-operative exam (Renamed from Encounter for pre-operative examination) Start:24-Nov-2016 Instruction Type:Patient Education How to access health informa tion online - Detail Indication:Pre-operative exam (Renamed from Encounter for pre-operative examination) Start:24-Nov-2016 Instruction Type:Patient Education Patient Instructions Indication:Pre-operative exam (Renamed from Encounter for pre-operative examination) Start:24-Nov-2016 Instruction Type:Provider Instructions for Treatment How to access health informa tion online Indication:Non-smoker Start:07-Oct-2016 Instruction Type:Patient Education How to access health informa tion online - Detail Indication:Non-smoker Start:07-Oct-2016 Instruction Type:Patient Education Patient Instructions Indication:Non-smoker Start:07-Oct-2016 Instruction Type:Provider Instructions for Treatment Patient Instructions Indication:Encounter for Medicare annual wellness exam Start:07-Feb-2016 Instruction Type:Provider Instructions for Treatment How to access health informa tion online Indication:Heart disease, hypertensive, malignant, without heart failure Start:15-Jan-2016 Instruction Type:Patient Education How to access health informa tion online - Detail Indication:Heart disease, hypertensive, malignant, without heart failure Start:15-Jan-2016 Instruction Type:Patient Education Patient Instructions Indication:Heart disease, hypertensive, malignant, without heart failure Start:15-Jan-2016 Instruction Type:Provider Instructions for Treatment How to access health informa tion online Indication:Dysuria Start:30-Dec-2015 Instruction Type:Patient Education How to access health informa tion online - Detail Indication:Dysuria Start:30-Dec-2015 Instruction Type:Patient Education Patient Instructions Indication:Dysuria Start:30-Dec-2015 Instruction Type:Provider Instructions for Treatment How to access health informa tion online Indication:CLAUDICATION Start:14-Feb-2015 Instruction Type:Patient Education How to access health informa tion online - Detail Indication:CLAUDICATION Start:14-Feb-2015 Instruction Type:Patient Education Patient Instructions Indication:CLAUDICATION Start:14-Feb-2015 Instruction Type:Provider Instructions for Treatment How to access health informa tion online Indication:Sebaceous cyst Start:12-Oct-2014 Instruction Type:Patient Education How to access health informa tion online - Detail Indication:Sebaceous cyst Start:12-Oct-2014 Instruction Type:Patient Education Patient Instructions Indication:Sebaceous cyst Start:12-Oct-2014 Instruction Type:Provider Instructions for Treatment Name Dates Details How to access health informa tion online Indication:Non-smoker Start:28-Mar-2020 Instruction Type:Patient Education How to access health informa tion online - Detail Indication:Non-smoker Start:28-Mar-2020 Instruction Type:Patient Education Patient Instructions Indication:Non-smoker Start:28-Mar-2020 Instruction Type:Provider Instructions for Treatment How to access health informa tion online Indication:Non-smoker Start:22-Mar-2020 Instruction Type:Patient Education How to access health informa tion online - Detail Indication:Non-smoker Start:22-Mar-2020 Instruction Type:Patient Education Patient Instructions Indication:Non-smoker Start:22-Mar-2020 Instruction Type:Provider Instructions for Treatment cardiovascular counseling Indication:Coronary artery disease Start:23-Nov-2019 Instruction Type:Provider Instructions for Treatment How to access health informa tion online Indication:Non-smoker Start:23-Nov-2019 Instruction Type:Patient Education How to access health informa tion online - Detail Indication:Non-smoker Start:23-Nov-2019 Instruction Type:Patient Education Patient Instructions Indication:Non-smoker Start:23-Nov-2019 Instruction Type:Provider Instructions for Treatment How to access health informa tion online Indication:Non-smoker Start:26-May-2018 Instruction Type:Patient Education How to access health informa tion online - Detail Indication:Non-smoker Start:26-May-2018 Instruction Type:Patient Education Patient Instructions Indication:Non-smoker Start:26-May-2018 Instruction Type:Provider Instructions for Treatment Patient Instructions Indication:Lumbar stenosis with neurogenic claudication Start:01-Sep-2017 Instruction Type:Provider Instructions for Treatment How to access health informa tion online Indication:Non-smoker Start:01-Sep-2017 Instruction Type:Patient Education How to access health informa tion online - Detail Indication:Non-smoker Start:01-Sep-2017 Instruction Type:Patient Education How to access health informa tion online Indication:Non-smoker Start:13-May-2017 Instruction Type:Patient Education How to access health informa tion online - Detail Indication:Non-smoker Start:13-May-2017 Instruction Type:Patient Education Patient Instructions Indication:Non-smoker Start:13-May-2017 Instruction Type:Provider Instructions for Treatment cardiovascular counseling Indication:Coronary artery disease Start:25-Mar-2017 Instruction Type:Provider Instructions for Treatment How to access health informa tion online Indication:Non-smoker Start:25-Mar-2017 Instruction Type:Patient Education How to access health informa tion online - Detail Indication:Non-smoker Start:25-Mar-2017 Instruction Type:Patient Education Patient Instructions Indication:Non-smoker Start:25-Mar-2017 Instruction Type:Provider Instructions for Treatment How to access health informa tion online Indication:BMI 25.0-25.9,adult Start:18-Mar-2017 Instruction Type:Patient Education How to access health informa tion online - Detail Indication:BMI 25.0-25.9,adult Start:18-Mar-2017 Instruction Type:Patient Education Patient Instructions Indication:BMI 25.0-25.9,adult Start:18-Mar-2017 Instruction Type:Provider Instructions for Treatment How to access health informa tion online Indication:Pre-operative exam (Renamed from Encounter for pre-operative examination) Start:24-Nov-2016 Instruction Type:Patient Education How to access health informa tion online - Detail Indication:Pre-operative exam (Renamed from Encounter for pre-operative examination) Start:24-Nov-2016 Instruction Type:Patient Education Patient Instructions Indication:Pre-operative exam (Renamed from Encounter for pre-operative examination) Start:24-Nov-2016 Instruction Type:Provider Instructions for Treatment How to access health informa tion online Indication:Non-smoker Start:07-Oct-2016 Instruction Type:Patient Education How to access health informa tion online - Detail Indication:Non-smoker Start:07-Oct-2016 Instruction Type:Patient Education Patient Instructions Indication:Non-smoker Start:07-Oct-2016 Instruction Type:Provider Instructions for Treatment Patient Instructions Indication:Encounter for Medicare annual wellness exam Start:07-Feb-2016 Instruction Type:Provider Instructions for Treatment How to access health informa tion online Indication:Heart disease, hypertensive, malignant, without heart failure Start:15-Jan-2016 Instruction Type:Patient Education How to access health informa tion online - Detail Indication:Heart disease, hypertensive, malignant, without heart failure Start:15-Jan-2016 Instruction Type:Patient Education Patient Instructions Indication:Heart disease, hypertensive, malignant, without heart failure Start:15-Jan-2016 Instruction Type:Provider Instructions for Treatment How to access health informa tion online Indication:Dysuria Start:30-Dec-2015 Instruction Type:Patient Education How to access health informa tion online - Detail Indication:Dysuria Start:30-Dec-2015 Instruction Type:Patient Education Patient Instructions Indication:Dysuria Start:30-Dec-2015 Instruction Type:Provider Instructions for Treatment How to access health informa tion online Indication:CLAUDICATION Start:14-Feb-2015 Instruction Type:Patient Education How to access health informa tion online - Detail Indication:CLAUDICATION Start:14-Feb-2015 Instruction Type:Patient Education Patient Instructions Indication:CLAUDICATION Start:14-Feb-2015 Instruction Type:Provider Instructions for Treatment How to access health informa tion online Indication:Sebaceous cyst Start:12-Oct-2014 Instruction Type:Patient Education How to access health informa tion online - Detail Indication:Sebaceous cyst Start:12-Oct-2014 Instruction Type:Patient Education Patient Instructions Indication:Sebaceous cyst Start:12-Oct-2014 Instruction Type:Provider Instructions for Treatment Name Dates Details How to access health informa tion online Indication:BMI 30.0-30.9,adult Start:08-Apr-2020 Instruction Type:Patient Education How to access health informa tion online - Detail Indication:BMI 30.0-30.9,adult Start:08-Apr-2020 Instruction Type:Patient Education Patient Instructions Indication:BMI 30.0-30.9,adult Start:08-Apr-2020 Instruction Type:Provider Instructions for Treatment How to access health informa tion online Indication:Non-smoker Start:28-Mar-2020 Instruction Type:Patient Education How to access health informa tion online - Detail Indication:Non-smoker Start:28-Mar-2020 Instruction Type:Patient Education Patient Instructions Indication:Non-smoker Start:28-Mar-2020 Instruction Type:Provider Instructions for Treatment How to access health informa tion online Indication:Non-smoker Start:22-Mar-2020 Instruction Type:Patient Education How to access health informa tion online - Detail Indication:Non-smoker Start:22-Mar-2020 Instruction Type:Patient Education Patient Instructions Indication:Non-smoker Start:22-Mar-2020 Instruction Type:Provider Instructions for Treatment cardiovascular counseling Indication:Coronary artery disease Start:23-Nov-2019 Instruction Type:Provider Instructions for Treatment How to access health informa tion online Indication:Non-smoker Start:23-Nov-2019 Instruction Type:Patient Education How to access health informa tion online - Detail Indication:Non-smoker Start:23-Nov-2019 Instruction Type:Patient Education Patient Instructions Indication:Non-smoker Start:23-Nov-2019 Instruction Type:Provider Instructions for Treatment How to access health informa tion online Indication:Non-smoker Start:26-May-2018 Instruction Type:Patient Education How to access health informa tion online - Detail Indication:Non-smoker Start:26-May-2018 Instruction Type:Patient Education Patient Instructions Indication:Non-smoker Start:26-May-2018 Instruction Type:Provider Instructions for Treatment Patient Instructions Indication:Lumbar stenosis with neurogenic claudication Start:01-Sep-2017 Instruction Type:Provider Instructions for Treatment How to access health informa tion online Indication:Non-smoker Start:01-Sep-2017 Instruction Type:Patient Education How to access health informa tion online - Detail Indication:Non-smoker Start:01-Sep-2017 Instruction Type:Patient Education How to access health informa tion online Indication:Non-smoker Start:13-May-2017 Instruction Type:Patient Education How to access health informa tion online - Detail Indication:Non-smoker Start:13-May-2017 Instruction Type:Patient Education Patient Instructions Indication:Non-smoker Start:13-May-2017 Instruction Type:Provider Instructions for Treatment cardiovascular counseling Indication:Coronary artery disease Start:25-Mar-2017 Instruction Type:Provider Instructions for Treatment How to access health informa tion online Indication:Non-smoker Start:25-Mar-2017 Instruction Type:Patient Education How to access health informa tion online - Detail Indication:Non-smoker Start:25-Mar-2017 Instruction Type:Patient Education Patient Instructions Indication:Non-smoker Start:25-Mar-2017 Instruction Type:Provider Instructions for Treatment How to access health informa tion online Indication:BMI 25.0-25.9,adult Start:18-Mar-2017 Instruction Type:Patient Education How to access health informa tion online - Detail Indication:BMI 25.0-25.9,adult Start:18-Mar-2017 Instruction Type:Patient Education Patient Instructions Indication:BMI 25.0-25.9,adult Start:18-Mar-2017 Instruction Type:Provider Instructions for Treatment How to access health informa tion online Indication:Pre-operative exam (Renamed from Encounter for pre-operative examination) Start:24-Nov-2016 Instruction Type:Patient Education How to access health informa tion online - Detail Indication:Pre-operative exam (Renamed from Encounter for pre-operative examination) Start:24-Nov-2016 Instruction Type:Patient Education Patient Instructions Indication:Pre-operative exam (Renamed from Encounter for pre-operative examination) Start:24-Nov-2016 Instruction Type:Provider Instructions for Treatment How to access health informa tion online Indication:Non-smoker Start:07-Oct-2016 Instruction Type:Patient Education How to access health informa tion online - Detail Indication:Non-smoker Start:07-Oct-2016 Instruction Type:Patient Education Patient Instructions Indication:Non-smoker Start:07-Oct-2016 Instruction Type:Provider Instructions for Treatment Patient Instructions Indication:Encounter for Medicare annual wellness exam Start:07-Feb-2016 Instruction Type:Provider Instructions for Treatment How to access health informa tion online Indication:Heart disease, hypertensive, malignant, without heart failure Start:15-Jan-2016 Instruction Type:Patient Education How to access health informa tion online - Detail Indication:Heart disease, hypertensive, malignant, without heart failure Start:15-Jan-2016 Instruction Type:Patient Education Patient Instructions Indication:Heart disease, hypertensive, malignant, without heart failure Start:15-Jan-2016 Instruction Type:Provider Instructions for Treatment How to access health informa tion online Indication:Dysuria Start:30-Dec-2015 Instruction Type:Patient Education How to access health informa tion online - Detail Indication:Dysuria Start:30-Dec-2015 Instruction Type:Patient Education Patient Instructions Indication:Dysuria Start:30-Dec-2015 Instruction Type:Provider Instructions for Treatment How to access health informa tion online Indication:CLAUDICATION Start:14-Feb-2015 Instruction Type:Patient Education How to access health informa tion online - Detail Indication:CLAUDICATION Start:14-Feb-2015 Instruction Type:Patient Education Patient Instructions Indication:CLAUDICATION Start:14-Feb-2015 Instruction Type:Provider Instructions for Treatment How to access health informa tion online Indication:Sebaceous cyst Start:12-Oct-2014 Instruction Type:Patient Education How to access health informa tion online - Detail Indication:Sebaceous cyst Start:12-Oct-2014 Instruction Type:Patient Education Patient Instructions Indication:Sebaceous cyst Start:12-Oct-2014 Instruction Type:Provider Instructions for Treatment Name Dates Details How to access health informa tion online Indication:BMI 30.0-30.9,adult Start:08-Apr-2020 Instruction Type:Patient Education How to access health informa tion online - Detail Indication:BMI 30.0-30.9,adult Start:08-Apr-2020 Instruction Type:Patient Education Patient Instructions Indication:BMI 30.0-30.9,adult Start:08-Apr-2020 Instruction Type:Provider Instructions for Treatment How to access health informa tion online Indication:Non-smoker Start:28-Mar-2020 Instruction Type:Patient Education How to access health informa tion online - Detail Indication:Non-smoker Start:28-Mar-2020 Instruction Type:Patient Education Patient Instructions Indication:Non-smoker Start:28-Mar-2020 Instruction Type:Provider Instructions for Treatment How to access health informa tion online Indication:Non-smoker Start:22-Mar-2020 Instruction Type:Patient Education How to access health informa tion online - Detail Indication:Non-smoker Start:22-Mar-2020 Instruction Type:Patient Education Patient Instructions Indication:Non-smoker Start:22-Mar-2020 Instruction Type:Provider Instructions for Treatment cardiovascular counseling Indication:Coronary artery disease Start:23-Nov-2019 Instruction Type:Provider Instructions for Treatment How to access health informa tion online Indication:Non-smoker Start:23-Nov-2019 Instruction Type:Patient Education How to access health informa tion online - Detail Indication:Non-smoker Start:23-Nov-2019 Instruction Type:Patient Education Patient Instructions Indication:Non-smoker Start:23-Nov-2019 Instruction Type:Provider Instructions for Treatment How to access health informa tion online Indication:Non-smoker Start:26-May-2018 Instruction Type:Patient Education How to access health informa tion online - Detail Indication:Non-smoker Start:26-May-2018 Instruction Type:Patient Education Patient Instructions Indication:Non-smoker Start:26-May-2018 Instruction Type:Provider Instructions for Treatment Patient Instructions Indication:Lumbar stenosis with neurogenic claudication Start:01-Sep-2017 Instruction Type:Provider Instructions for Treatment How to access health informa tion online Indication:Non-smoker Start:01-Sep-2017 Instruction Type:Patient Education How to access health informa tion online - Detail Indication:Non-smoker Start:01-Sep-2017 Instruction Type:Patient Education How to access health informa tion online Indication:Non-smoker Start:13-May-2017 Instruction Type:Patient Education How to access health informa tion online - Detail Indication:Non-smoker Start:13-May-2017 Instruction Type:Patient Education Patient Instructions Indication:Non-smoker Start:13-May-2017 Instruction Type:Provider Instructions for Treatment cardiovascular counseling Indication:Coronary artery disease Start:25-Mar-2017 Instruction Type:Provider Instructions for Treatment How to access health informa tion online Indication:Non-smoker Start:25-Mar-2017 Instruction Type:Patient Education How to access health informa tion online - Detail Indication:Non-smoker Start:25-Mar-2017 Instruction Type:Patient Education Patient Instructions Indication:Non-smoker Start:25-Mar-2017 Instruction Type:Provider Instructions for Treatment How to access health informa tion online Indication:BMI 25.0-25.9,adult Start:18-Mar-2017 Instruction Type:Patient Education How to access health informa tion online - Detail Indication:BMI 25.0-25.9,adult Start:18-Mar-2017 Instruction Type:Patient Education Patient Instructions Indication:BMI 25.0-25.9,adult Start:18-Mar-2017 Instruction Type:Provider Instructions for Treatment How to access health informa tion online Indication:Pre-operative exam (Renamed from Encounter for pre-operative examination) Start:24-Nov-2016 Instruction Type:Patient Education How to access health informa tion online - Detail Indication:Pre-operative exam (Renamed from Encounter for pre-operative examination) Start:24-Nov-2016 Instruction Type:Patient Education Patient Instructions Indication:Pre-operative exam (Renamed from Encounter for pre-operative examination) Start:24-Nov-2016 Instruction Type:Provider Instructions for Treatment How to access health informa tion online Indication:Non-smoker Start:07-Oct-2016 Instruction Type:Patient Education How to access health informa tion online - Detail Indication:Non-smoker Start:07-Oct-2016 Instruction Type:Patient Education Patient Instructions Indication:Non-smoker Start:07-Oct-2016 Instruction Type:Provider Instructions for Treatment Patient Instructions Indication:Encounter for Medicare annual wellness exam Start:07-Feb-2016 Instruction Type:Provider Instructions for Treatment How to access health informa tion online Indication:Heart disease, hypertensive, malignant, without heart failure Start:15-Jan-2016 Instruction Type:Patient Education How to access health informa tion online - Detail Indication:Heart disease, hypertensive, malignant, without heart failure Start:15-Jan-2016 Instruction Type:Patient Education Patient Instructions Indication:Heart disease, hypertensive, malignant, without heart failure Start:15-Jan-2016 Instruction Type:Provider Instructions for Treatment How to access health informa tion online Indication:Dysuria Start:30-Dec-2015 Instruction Type:Patient Education How to access health informa tion online - Detail Indication:Dysuria Start:30-Dec-2015 Instruction Type:Patient Education Patient Instructions Indication:Dysuria Start:30-Dec-2015 Instruction Type:Provider Instructions for Treatment How to access health informa tion online Indication:CLAUDICATION Start:14-Feb-2015 Instruction Type:Patient Education How to access health informa tion online - Detail Indication:CLAUDICATION Start:14-Feb-2015 Instruction Type:Patient Education Patient Instructions Indication:CLAUDICATION Start:14-Feb-2015 Instruction Type:Provider Instructions for Treatment How to access health informa tion online Indication:Sebaceous cyst Start:12-Oct-2014 Instruction Type:Patient Education How to access health informa tion online - Detail Indication:Sebaceous cyst Start:12-Oct-2014 Instruction Type:Patient Education Patient Instructions Indication:Sebaceous cyst Start:12-Oct-2014 Instruction Type:Provider Instructions for Treatment Name Dates Details How to access health informa tion online Indication:BMI 30.0-30.9,adult Start:08-Apr-2020 Instruction Type:Patient Education How to access health informa tion online - Detail Indication:BMI 30.0-30.9,adult Start:08-Apr-2020 Instruction Type:Patient Education Patient Instructions Indication:BMI 30.0-30.9,adult Start:08-Apr-2020 Instruction Type:Provider Instructions for Treatment How to access health informa tion online Indication:Non-smoker Start:28-Mar-2020 Instruction Type:Patient Education How to access health informa tion online - Detail Indication:Non-smoker Start:28-Mar-2020 Instruction Type:Patient Education Patient Instructions Indication:Non-smoker Start:28-Mar-2020 Instruction Type:Provider Instructions for Treatment How to access health informa tion online Indication:Non-smoker Start:22-Mar-2020 Instruction Type:Patient Education How to access health informa tion online - Detail Indication:Non-smoker Start:22-Mar-2020 Instruction Type:Patient Education Patient Instructions Indication:Non-smoker Start:22-Mar-2020 Instruction Type:Provider Instructions for Treatment cardiovascular counseling Indication:Coronary artery disease Start:23-Nov-2019 Instruction Type:Provider Instructions for Treatment How to access health informa tion online Indication:Non-smoker Start:23-Nov-2019 Instruction Type:Patient Education How to access health informa tion online - Detail Indication:Non-smoker Start:23-Nov-2019 Instruction Type:Patient Education Patient Instructions Indication:Non-smoker Start:23-Nov-2019 Instruction Type:Provider Instructions for Treatment How to access health informa tion online Indication:Non-smoker Start:26-May-2018 Instruction Type:Patient Education How to access health informa tion online - Detail Indication:Non-smoker Start:26-May-2018 Instruction Type:Patient Education Patient Instructions Indication:Non-smoker Start:26-May-2018 Instruction Type:Provider Instructions for Treatment Patient Instructions Indication:Lumbar stenosis with neurogenic claudication Start:01-Sep-2017 Instruction Type:Provider Instructions for Treatment How to access health informa tion online Indication:Non-smoker Start:01-Sep-2017 Instruction Type:Patient Education How to access health informa tion online - Detail Indication:Non-smoker Start:01-Sep-2017 Instruction Type:Patient Education How to access health informa tion online Indication:Non-smoker Start:13-May-2017 Instruction Type:Patient Education How to access health informa tion online - Detail Indication:Non-smoker Start:13-May-2017 Instruction Type:Patient Education Patient Instructions Indication:Non-smoker Start:13-May-2017 Instruction Type:Provider Instructions for Treatment cardiovascular counseling Indication:Coronary artery disease Start:25-Mar-2017 Instruction Type:Provider Instructions for Treatment How to access health informa tion online Indication:Non-smoker Start:25-Mar-2017 Instruction Type:Patient Education How to access health informa tion online - Detail Indication:Non-smoker Start:25-Mar-2017 Instruction Type:Patient Education Patient Instructions Indication:Non-smoker Start:25-Mar-2017 Instruction Type:Provider Instructions for Treatment How to access health informa tion online Indication:BMI 25.0-25.9,adult Start:18-Mar-2017 Instruction Type:Patient Education How to access health informa tion online - Detail Indication:BMI 25.0-25.9,adult Start:18-Mar-2017 Instruction Type:Patient Education Patient Instructions Indication:BMI 25.0-25.9,adult Start:18-Mar-2017 Instruction Type:Provider Instructions for Treatment How to access health informa tion online Indication:Pre-operative exam (Renamed from Encounter for pre-operative examination) Start:24-Nov-2016 Instruction Type:Patient Education How to access health informa tion online - Detail Indication:Pre-operative exam (Renamed from Encounter for pre-operative examination) Start:24-Nov-2016 Instruction Type:Patient Education Patient Instructions Indication:Pre-operative exam (Renamed from Encounter for pre-operative examination) Start:24-Nov-2016 Instruction Type:Provider Instructions for Treatment How to access health informa tion online Indication:Non-smoker Start:07-Oct-2016 Instruction Type:Patient Education How to access health informa tion online - Detail Indication:Non-smoker Start:07-Oct-2016 Instruction Type:Patient Education Patient Instructions Indication:Non-smoker Start:07-Oct-2016 Instruction Type:Provider Instructions for Treatment Patient Instructions Indication:Encounter for Medicare annual wellness exam Start:07-Feb-2016 Instruction Type:Provider Instructions for Treatment How to access health informa tion online Indication:Heart disease, hypertensive, malignant, without heart failure Start:15-Jan-2016 Instruction Type:Patient Education How to access health informa tion online - Detail Indication:Heart disease, hypertensive, malignant, without heart failure Start:15-Jan-2016 Instruction Type:Patient Education Patient Instructions Indication:Heart disease, hypertensive, malignant, without heart failure Start:15-Jan-2016 Instruction Type:Provider Instructions for Treatment How to access health informa tion online Indication:Dysuria Start:30-Dec-2015 Instruction Type:Patient Education How to access health informa tion online - Detail Indication:Dysuria Start:30-Dec-2015 Instruction Type:Patient Education Patient Instructions Indication:Dysuria Start:30-Dec-2015 Instruction Type:Provider Instructions for Treatment How to access health informa tion online Indication:CLAUDICATION Start:14-Feb-2015 Instruction Type:Patient Education How to access health informa tion online - Detail Indication:CLAUDICATION Start:14-Feb-2015 Instruction Type:Patient Education Patient Instructions Indication:CLAUDICATION Start:14-Feb-2015 Instruction Type:Provider Instructions for Treatment How to access health informa tion online Indication:Sebaceous cyst Start:12-Oct-2014 Instruction Type:Patient Education How to access health informa tion online - Detail Indication:Sebaceous cyst Start:12-Oct-2014 Instruction Type:Patient Education Patient Instructions Indication:Sebaceous cyst Start:12-Oct-2014 Instruction Type:Provider Instructions for Treatment Name Dates Details How to Access Health Informa tion Online using Patient Portal and [employer] Apps Indication:Non-smoker Start:25-Jul-2020 Instruction Type:Patient Education Patient Instructions Indication:Non-smoker Start:25-Jul-2020 Instruction Type:Provider Instructions for Treatment How to access health informa tion online Indication:BMI 30.0-30.9,adult Start:08-Apr-2020 Instruction Type:Patient Education How to access health informa tion online - Detail Indication:BMI 30.0-30.9,adult Start:08-Apr-2020 Instruction Type:Patient Education Patient Instructions Indication:BMI 30.0-30.9,adult Start:08-Apr-2020 Instruction Type:Provider Instructions for Treatment How to access health informa tion online Indication:Non-smoker Start:28-Mar-2020 Instruction Type:Patient Education How to access health informa tion online - Detail Indication:Non-smoker Start:28-Mar-2020 Instruction Type:Patient Education Patient Instructions Indication:Non-smoker Start:28-Mar-2020 Instruction Type:Provider Instructions for Treatment How to access health informa tion online Indication:Non-smoker Start:22-Mar-2020 Instruction Type:Patient Education How to access health informa tion online - Detail Indication:Non-smoker Start:22-Mar-2020 Instruction Type:Patient Education Patient Instructions Indication:Non-smoker Start:22-Mar-2020 Instruction Type:Provider Instructions for Treatment cardiovascular counseling Indication:Coronary artery disease Start:23-Nov-2019 Instruction Type:Provider Instructions for Treatment How to access health informa tion online Indication:Non-smoker Start:23-Nov-2019 Instruction Type:Patient Education How to access health informa tion online - Detail Indication:Non-smoker Start:23-Nov-2019 Instruction Type:Patient Education Patient Instructions Indication:Non-smoker Start:23-Nov-2019 Instruction Type:Provider Instructions for Treatment How to access health informa tion online Indication:Non-smoker Start:26-May-2018 Instruction Type:Patient Education How to access health informa tion online - Detail Indication:Non-smoker Start:26-May-2018 Instruction Type:Patient Education Patient Instructions Indication:Non-smoker Start:26-May-2018 Instruction Type:Provider Instructions for Treatment Patient Instructions Indication:Lumbar stenosis with neurogenic claudication Start:01-Sep-2017 Instruction Type:Provider Instructions for Treatment How to access health informa tion online Indication:Non-smoker Start:01-Sep-2017 Instruction Type:Patient Education How to access health informa tion online - Detail Indication:Non-smoker Start:01-Sep-2017 Instruction Type:Patient Education How to access health informa tion online Indication:Non-smoker Start:13-May-2017 Instruction Type:Patient Education How to access health informa tion online - Detail Indication:Non-smoker Start:13-May-2017 Instruction Type:Patient Education Patient Instructions Indication:Non-smoker Start:13-May-2017 Instruction Type:Provider Instructions for Treatment cardiovascular counseling Indication:Coronary artery disease Start:25-Mar-2017 Instruction Type:Provider Instructions for Treatment How to access health informa tion online Indication:Non-smoker Start:25-Mar-2017 Instruction Type:Patient Education How to access health informa tion online - Detail Indication:Non-smoker Start:25-Mar-2017 Instruction Type:Patient Education Patient Instructions Indication:Non-smoker Start:25-Mar-2017 Instruction Type:Provider Instructions for Treatment How to access health informa tion online Indication:BMI 25.0-25.9,adult Start:18-Mar-2017 Instruction Type:Patient Education How to access health informa tion online - Detail Indication:BMI 25.0-25.9,adult Start:18-Mar-2017 Instruction Type:Patient Education Patient Instructions Indication:BMI 25.0-25.9,adult Start:18-Mar-2017 Instruction Type:Provider Instructions for Treatment How to access health informa tion online Indication:Pre-operative exam (Renamed from Encounter for pre-operative examination) Start:24-Nov-2016 Instruction Type:Patient Education How to access health informa tion online - Detail Indication:Pre-operative exam (Renamed from Encounter for pre-operative examination) Start:24-Nov-2016 Instruction Type:Patient Education Patient Instructions Indication:Pre-operative exam (Renamed from Encounter for pre-operative examination) Start:24-Nov-2016 Instruction Type:Provider Instructions for Treatment How to access health informa tion online Indication:Non-smoker Start:07-Oct-2016 Instruction Type:Patient Education How to access health informa tion online - Detail Indication:Non-smoker Start:07-Oct-2016 Instruction Type:Patient Education Patient Instructions Indication:Non-smoker Start:07-Oct-2016 Instruction Type:Provider Instructions for Treatment Patient Instructions Indication:Encounter for Medicare annual wellness exam Start:07-Feb-2016 Instruction Type:Provider Instructions for Treatment How to access health informa tion online Indication:Heart disease, hypertensive, malignant, without heart failure Start:15-Jan-2016 Instruction Type:Patient Education How to access health informa tion online - Detail Indication:Heart disease, hypertensive, malignant, without heart failure Start:15-Jan-2016 Instruction Type:Patient Education Patient Instructions Indication:Heart disease, hypertensive, malignant, without heart failure Start:15-Jan-2016 Instruction Type:Provider Instructions for Treatment How to access health informa tion online Indication:Dysuria Start:30-Dec-2015 Instruction Type:Patient Education How to access health informa tion online - Detail Indication:Dysuria Start:30-Dec-2015 Instruction Type:Patient Education Patient Instructions Indication:Dysuria Start:30-Dec-2015 Instruction Type:Provider Instructions for Treatment How to access health informa tion online Indication:CLAUDICATION Start:14-Feb-2015 Instruction Type:Patient Education How to access health informa tion online - Detail Indication:CLAUDICATION Start:14-Feb-2015 Instruction Type:Patient Education Patient Instructions Indication:CLAUDICATION Start:14-Feb-2015 Instruction Type:Provider Instructions for Treatment How to access health informa tion online Indication:Sebaceous cyst Start:12-Oct-2014 Instruction Type:Patient Education How to access health informa tion online - Detail Indication:Sebaceous cyst Start:12-Oct-2014 Instruction Type:Patient Education Patient Instructions Indication:Sebaceous cyst Start:12-Oct-2014 Instruction Type:Provider Instructions for Treatment Name Dates Details Patient Instructions Indication:BMI 30.0-30.9,adult Start:15-Aug-2020 Instruction Type:Provider Instructions for Treatment How to Access Health Informa tion Online using Patient Portal and [employer] Apps Indication:BMI 30.0-30.9,adult Start:15-Aug-2020 Instruction Type:Patient Education How to Access Health Informa tion Online using Patient Portal and [employer] Apps Indication:Non-smoker Start:25-Jul-2020 Instruction Type:Patient Education Patient Instructions Indication:Non-smoker Start:25-Jul-2020 Instruction Type:Provider Instructions for Treatment How to access health informa tion online Indication:BMI 30.0-30.9,adult Start:08-Apr-2020 Instruction Type:Patient Education How to access health informa tion online - Detail Indication:BMI 30.0-30.9,adult Start:08-Apr-2020 Instruction Type:Patient Education Patient Instructions Indication:BMI 30.0-30.9,adult Start:08-Apr-2020 Instruction Type:Provider Instructions for Treatment How to access health informa tion online Indication:Non-smoker Start:28-Mar-2020 Instruction Type:Patient Education How to access health informa tion online - Detail Indication:Non-smoker Start:28-Mar-2020 Instruction Type:Patient Education Patient Instructions Indication:Non-smoker Start:28-Mar-2020 Instruction Type:Provider Instructions for Treatment How to access health informa tion online Indication:Non-smoker Start:22-Mar-2020 Instruction Type:Patient Education How to access health informa tion online - Detail Indication:Non-smoker Start:22-Mar-2020 Instruction Type:Patient Education Patient Instructions Indication:Non-smoker Start:22-Mar-2020 Instruction Type:Provider Instructions for Treatment cardiovascular counseling Indication:Coronary artery disease Start:23-Nov-2019 Instruction Type:Provider Instructions for Treatment How to access health informa tion online Indication:Non-smoker Start:23-Nov-2019 Instruction Type:Patient Education How to access health informa tion online - Detail Indication:Non-smoker Start:23-Nov-2019 Instruction Type:Patient Education Patient Instructions Indication:Non-smoker Start:23-Nov-2019 Instruction Type:Provider Instructions for Treatment How to access health informa tion online Indication:Non-smoker Start:26-May-2018 Instruction Type:Patient Education How to access health informa tion online - Detail Indication:Non-smoker Start:26-May-2018 Instruction Type:Patient Education Patient Instructions Indication:Non-smoker Start:26-May-2018 Instruction Type:Provider Instructions for Treatment Patient Instructions Indication:Lumbar stenosis with neurogenic claudication Start:01-Sep-2017 Instruction Type:Provider Instructions for Treatment How to access health informa tion online Indication:Non-smoker Start:01-Sep-2017 Instruction Type:Patient Education How to access health informa tion online - Detail Indication:Non-smoker Start:01-Sep-2017 Instruction Type:Patient Education How to access health informa tion online Indication:Non-smoker Start:13-May-2017 Instruction Type:Patient Education How to access health informa tion online - Detail Indication:Non-smoker Start:13-May-2017 Instruction Type:Patient Education Patient Instructions Indication:Non-smoker Start:13-May-2017 Instruction Type:Provider Instructions for Treatment cardiovascular counseling Indication:Coronary artery disease Start:25-Mar-2017 Instruction Type:Provider Instructions for Treatment How to access health informa tion online Indication:Non-smoker Start:25-Mar-2017 Instruction Type:Patient Education How to access health informa tion online - Detail Indication:Non-smoker Start:25-Mar-2017 Instruction Type:Patient Education Patient Instructions Indication:Non-smoker Start:25-Mar-2017 Instruction Type:Provider Instructions for Treatment How to access health informa tion online Indication:BMI 25.0-25.9,adult Start:18-Mar-2017 Instruction Type:Patient Education How to access health informa tion online - Detail Indication:BMI 25.0-25.9,adult Start:18-Mar-2017 Instruction Type:Patient Education Patient Instructions Indication:BMI 25.0-25.9,adult Start:18-Mar-2017 Instruction Type:Provider Instructions for Treatment How to access health informa tion online Indication:Pre-operative exam (Renamed from Encounter for pre-operative examination) Start:24-Nov-2016 Instruction Type:Patient Education How to access health informa tion online - Detail Indication:Pre-operative exam (Renamed from Encounter for pre-operative examination) Start:24-Nov-2016 Instruction Type:Patient Education Patient Instructions Indication:Pre-operative exam (Renamed from Encounter for pre-operative examination) Start:24-Nov-2016 Instruction Type:Provider Instructions for Treatment How to access health informa tion online Indication:Non-smoker Start:07-Oct-2016 Instruction Type:Patient Education How to access health informa tion online - Detail Indication:Non-smoker Start:07-Oct-2016 Instruction Type:Patient Education Patient Instructions Indication:Non-smoker Start:07-Oct-2016 Instruction Type:Provider Instructions for Treatment Patient Instructions Indication:Encounter for Medicare annual wellness exam Start:07-Feb-2016 Instruction Type:Provider Instructions for Treatment How to access health informa tion online Indication:Heart disease, hypertensive, malignant, without heart failure Start:15-Jan-2016 Instruction Type:Patient Education How to access health informa tion online - Detail Indication:Heart disease, hypertensive, malignant, without heart failure Start:15-Jan-2016 Instruction Type:Patient Education Patient Instructions Indication:Heart disease, hypertensive, malignant, without heart failure Start:15-Jan-2016 Instruction Type:Provider Instructions for Treatment How to access health informa tion online Indication:Dysuria Start:30-Dec-2015 Instruction Type:Patient Education How to access health informa tion online - Detail Indication:Dysuria Start:30-Dec-2015 Instruction Type:Patient Education Patient Instructions Indication:Dysuria Start:30-Dec-2015 Instruction Type:Provider Instructions for Treatment How to access health informa tion online Indication:CLAUDICATION Start:14-Feb-2015 Instruction Type:Patient Education How to access health informa tion online - Detail Indication:CLAUDICATION Start:14-Feb-2015 Instruction Type:Patient Education Patient Instructions Indication:CLAUDICATION Start:14-Feb-2015 Instruction Type:Provider Instructions for Treatment How to access health informa tion online Indication:Sebaceous cyst Start:12-Oct-2014 Instruction Type:Patient Education How to access health informa tion online - Detail Indication:Sebaceous cyst Start:12-Oct-2014 Instruction Type:Patient Education Patient Instructions Indication:Sebaceous cyst Start:12-Oct-2014 Instruction Type:Provider Instructions for Treatment Name Dates Details Patient Instructions Indication:BMI 30.0-30.9,adult Start:15-Aug-2020 Instruction Type:Provider Instructions for Treatment How to Access Health Informa tion Online using Patient Portal and [employer] Apps Indication:BMI 30.0-30.9,adult Start:15-Aug-2020 Instruction Type:Patient Education How to Access Health Informa tion Online using Patient Portal and [employer] Apps Indication:Non-smoker Start:25-Jul-2020 Instruction Type:Patient Education Patient Instructions Indication:Non-smoker Start:25-Jul-2020 Instruction Type:Provider Instructions for Treatment How to access health informa tion online Indication:BMI 30.0-30.9,adult Start:08-Apr-2020 Instruction Type:Patient Education How to access health informa tion online - Detail Indication:BMI 30.0-30.9,adult Start:08-Apr-2020 Instruction Type:Patient Education Patient Instructions Indication:BMI 30.0-30.9,adult Start:08-Apr-2020 Instruction Type:Provider Instructions for Treatment How to access health informa tion online Indication:Non-smoker Start:28-Mar-2020 Instruction Type:Patient Education How to access health informa tion online - Detail Indication:Non-smoker Start:28-Mar-2020 Instruction Type:Patient Education Patient Instructions Indication:Non-smoker Start:28-Mar-2020 Instruction Type:Provider Instructions for Treatment How to access health informa tion online Indication:Non-smoker Start:22-Mar-2020 Instruction Type:Patient Education How to access health informa tion online - Detail Indication:Non-smoker Start:22-Mar-2020 Instruction Type:Patient Education Patient Instructions Indication:Non-smoker Start:22-Mar-2020 Instruction Type:Provider Instructions for Treatment cardiovascular counseling Indication:Coronary artery disease Start:23-Nov-2019 Instruction Type:Provider Instructions for Treatment How to access health informa tion online Indication:Non-smoker Start:23-Nov-2019 Instruction Type:Patient Education How to access health informa tion online - Detail Indication:Non-smoker Start:23-Nov-2019 Instruction Type:Patient Education Patient Instructions Indication:Non-smoker Start:23-Nov-2019 Instruction Type:Provider Instructions for Treatment How to access health informa tion online Indication:Non-smoker Start:26-May-2018 Instruction Type:Patient Education How to access health informa tion online - Detail Indication:Non-smoker Start:26-May-2018 Instruction Type:Patient Education Patient Instructions Indication:Non-smoker Start:26-May-2018 Instruction Type:Provider Instructions for Treatment Patient Instructions Indication:Lumbar stenosis with neurogenic claudication Start:01-Sep-2017 Instruction Type:Provider Instructions for Treatment How to access health informa tion online Indication:Non-smoker Start:01-Sep-2017 Instruction Type:Patient Education How to access health informa tion online - Detail Indication:Non-smoker Start:01-Sep-2017 Instruction Type:Patient Education How to access health informa tion online Indication:Non-smoker Start:13-May-2017 Instruction Type:Patient Education How to access health informa tion online - Detail Indication:Non-smoker Start:13-May-2017 Instruction Type:Patient Education Patient Instructions Indication:Non-smoker Start:13-May-2017 Instruction Type:Provider Instructions for Treatment cardiovascular counseling Indication:Coronary artery disease Start:25-Mar-2017 Instruction Type:Provider Instructions for Treatment How to access health informa tion online Indication:Non-smoker Start:25-Mar-2017 Instruction Type:Patient Education How to access health informa tion online - Detail Indication:Non-smoker Start:25-Mar-2017 Instruction Type:Patient Education Patient Instructions Indication:Non-smoker Start:25-Mar-2017 Instruction Type:Provider Instructions for Treatment How to access health informa tion online Indication:BMI 25.0-25.9,adult Start:18-Mar-2017 Instruction Type:Patient Education How to access health informa tion online - Detail Indication:BMI 25.0-25.9,adult Start:18-Mar-2017 Instruction Type:Patient Education Patient Instructions Indication:BMI 25.0-25.9,adult Start:18-Mar-2017 Instruction Type:Provider Instructions for Treatment How to access health informa tion online Indication:Pre-operative exam (Renamed from Encounter for pre-operative examination) Start:24-Nov-2016 Instruction Type:Patient Education How to access health informa tion online - Detail Indication:Pre-operative exam (Renamed from Encounter for pre-operative examination) Start:24-Nov-2016 Instruction Type:Patient Education Patient Instructions Indication:Pre-operative exam (Renamed from Encounter for pre-operative examination) Start:24-Nov-2016 Instruction Type:Provider Instructions for Treatment How to access health informa tion online Indication:Non-smoker Start:07-Oct-2016 Instruction Type:Patient Education How to access health informa tion online - Detail Indication:Non-smoker Start:07-Oct-2016 Instruction Type:Patient Education Patient Instructions Indication:Non-smoker Start:07-Oct-2016 Instruction Type:Provider Instructions for Treatment Patient Instructions Indication:Encounter for Medicare annual wellness exam Start:07-Feb-2016 Instruction Type:Provider Instructions for Treatment How to access health informa tion online Indication:Heart disease, hypertensive, malignant, without heart failure Start:15-Jan-2016 Instruction Type:Patient Education How to access health informa tion online - Detail Indication:Heart disease, hypertensive, malignant, without heart failure Start:15-Jan-2016 Instruction Type:Patient Education Patient Instructions Indication:Heart disease, hypertensive, malignant, without heart failure Start:15-Jan-2016 Instruction Type:Provider Instructions for Treatment How to access health informa tion online Indication:Dysuria Start:30-Dec-2015 Instruction Type:Patient Education How to access health informa tion online - Detail Indication:Dysuria Start:30-Dec-2015 Instruction Type:Patient Education Patient Instructions Indication:Dysuria Start:30-Dec-2015 Instruction Type:Provider Instructions for Treatment How to access health informa tion online Indication:CLAUDICATION Start:14-Feb-2015 Instruction Type:Patient Education How to access health informa tion online - Detail Indication:CLAUDICATION Start:14-Feb-2015 Instruction Type:Patient Education Patient Instructions Indication:CLAUDICATION Start:14-Feb-2015 Instruction Type:Provider Instructions for Treatment How to access health informa tion online Indication:Sebaceous cyst Start:12-Oct-2014 Instruction Type:Patient Education How to access health informa tion online - Detail Indication:Sebaceous cyst Start:12-Oct-2014 Instruction Type:Patient Education Patient Instructions Indication:Sebaceous cyst Start:12-Oct-2014 Instruction Type:Provider Instructions for Treatment Chief Complaint and Reason for Visit Chief Complaint Left hip pain BILAT CAROTID BRUITS PAD Chief Complaint Left hip pain BILAT CAROTID BRUITS PAD INT LABS Chief Complaint Left hip pain BILAT CAROTID BRUITS PAD INT LABS 6 M FU INT LABS Reason for Visit Fatigue [id number] Essential hypertension Hyperlipidemia Peripheral arterial disease Stented coronary artery Chief Complaint BILAT CAROTID BRUITS PAD INT LABS 6 M FU INT LABS INCREASED FATIGUE, CAD INCREASED FATIGUE, CAD Reason for Visit Fatigue [id number] Essential hypertension Hyperlipidemia Peripheral arterial disease Stented coronary artery Chief Complaint PAD INT LABS 6 M FU INT LABS INCREASED FATIGUE, CAD INCREASED FATIGUE, CAD RIGHT LEG - STRICTURE OF ARTERY Reason for Visit Fatigue [id number] Essential hypertension Hyperlipidemia Peripheral arterial disease Stented coronary artery Peripheral arterial disease Chief Complaint 3 M 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 PREOP EVAL, 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 Reason for Visit Fatigue Palpitations [id number] Essential hypertension Hyperlipidemia Peripheral arterial disease Stented coronary artery Chief Complaint 3 M 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 PREOP EVAL, 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 update H & P (okay per KR) TACHACARDIA TACHACARDIA Reason for Visit Fatigue Palpitations [id number] Essential hypertension Hyperlipidemia Peripheral arterial disease Stented coronary artery Fatigue Palpitations [id number] Essential hypertension Hyperlipidemia Peripheral arterial disease Stented coronary artery Chief Complaint 3 M 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 PREOP EVAL, 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 update H & P (okay per KR) TACHACARDIA TACHACARDIA TACHACARDIA PRE OP Reason for Visit Fatigue Palpitations [id number] Essential hypertension Hyperlipidemia Peripheral arterial disease Stented coronary artery Fatigue Palpitations [id number] Essential hypertension Hyperlipidemia Peripheral arterial disease Stented coronary artery Chief Complaint 3 M 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 PREOP EVAL, 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 update H & P (okay per KR) TACHACARDIA TACHACARDIA TACHACARDIA PRE OP 3 m fu E ORDERS Reason for Visit Fatigue Palpitations [id number] Essential hypertension Hyperlipidemia Peripheral arterial disease Stented coronary artery Fatigue Palpitations [id number] Essential hypertension Hyperlipidemia Peripheral arterial disease Stented coronary artery Fatigue [id number] Essential hypertension Hyperlipidemia Peripheral arterial disease Stented coronary artery Chief Complaint update H & P (okay p er KR) TACHACARDIA TACHACARDIA TACHACARDIA PRE OP 3 m fu E ORDERS Reason for Visit Fatigue Palpitations [id number] Essential hypertension Hyperlipidemia Peripheral arterial disease Stented coronary artery Fatigue [id number] Essential hypertension Hyperlipidemia Peripheral arterial disease Stented coronary artery 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 3 wk fu PALP 2 wk fu S/P AORTOGRAN W/BILAT ILIOFEMORAL ANGIO Reason for Visit [id number] Chronic back pain Essential hypertension Peripheral arterial disease Immunization due Establishing care with new doctor, encounter for Controlled type 2 diabetes mellitus Lower abdominal pain [id number] Chronic back pain Essential hypertension Peripheral arterial disease Controlled type 2 diabetes mellitus Lower abdominal pain Lower abdominal pain Chief Complaint 3 wk fu PALP 2 wk fu S/P AORTOGRAN W/BILAT ILIOFEMORAL ANGIO 3 M FU Abdominal distension (gaseous) ABD PAIN 1 Y FU Reason for Visit [id number] Chronic back pain Essential hypertension Peripheral arterial disease Controlled type 2 diabetes mellitus Lower abdominal pain Lower abdominal pain [id number] Chronic back pain Essential hypertension Peripheral arterial disease Bloating Controlled type 2 diabetes mellitus Essential hypertension Hyperlipidemia Peripheral arterial disease Chief Complaint PALP 2 wk fu S/P AORTOGRAN W/BILAT ILIOFEMORAL ANGIO 3 M FU Abdominal distension (gaseous) ABD PAIN 1 Y FU 6 WK FU ABDOMINAL PAIN, WEIGHT LOSS Reason for Visit Lower abdominal pain [id number] Chronic back pain Essential hypertension Peripheral arterial disease Bloating Controlled type 2 diabetes mellitus Essential hypertension Hyperlipidemia Peripheral arterial disease [id number] Chronic back pain Essential hypertension Peripheral arterial disease Bloating Controlled type 2 diabetes mellitus Chief Complaint Abdominal distension (gaseous) ABD PAIN 1 Y FU 6 WK FU ABDOMINAL PAIN, WEIGHT LOSS 1 M FU XRAY ABD PAIN 1 M FU S/P AORTOGRAM & ANGIOPLASTY Reason for Visit Essential hypertensi on Hyperlipidemia Peripheral arterial disease [id number] Chronic back pain Essential hypertension Peripheral arterial disease Bloating Controlled type 2 diabetes mellitus [id number] Chronic back pain Essential hypertension Peripheral arterial disease Immunization due Bloating Controlled type 2 diabetes mellitus Thoracic back pain [id number] Chronic back pain Essential hypertension Peripheral arterial disease Hearing loss Bloating Prediabetes Thoracic back pain Chief Complaint 1 M FU S/P AORTOGRAM & ANGIOPLASTY 3 M FU Umbilical Hernia 6 M FU E ORDERS Reason for Visit [id number] Chronic back pain Essential hypertension Peripheral arterial disease Hearing loss Bloating Prediabetes Thoracic back pain [id number] Chronic back pain Essential hypertension Peripheral arterial disease Hearing loss Umbilical hernia without mention of obstruction or gangrene Bloating Prediabetes Thoracic back pain Acid reflux Umbilical hernia Bloating Fatigue Essential hypertension Hyperlipidemia Peripheral arterial disease Chief Complaint 3 M FU Umbilical Hernia 6 M FU E ORDERS CAD FATIGUE CAD FATIGUE Amb Documentation Reason for Visit [id number] Chronic back pain Essential hypertension Peripheral arterial disease Hearing loss Umbilical hernia without mention of obstruction or gangrene Bloating Prediabetes Thoracic back pain Acid reflux Umbilical hernia Bloating Fatigue Essential hypertension Hyperlipidemia Peripheral arterial disease Chief Complaint Admit Date LUMBAR DEGENERATIVE DISC DISEASE Novembe 2023 7:40am LUMBAR SPINE June 09, 2024 8:51am Xray room 5 June 09, 2024 9:41am Pain July 11, 2024 1 2:26pm LUMBAR SPINE July 18, 2024 7 :30am 6 M FU August 17, 2024 10:1 2am 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 August 24, 2024 9:1 2am 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 August 24, 2024 9:4 2am INT LAB ORDERS September 01, 2024 10: 36am Reason for Visit Admit Date Adjacent segment disease of lumbar spine with history of fusion procedure June 09, 2024 8:51am Adjacent segment disease of lumbar spine with history of fusion procedure July 18, 2024 7:30am Spinal stenosis of lumbar re gion with neurogenic claudication July 18, 2024 7:30am Heart palpitations August 17, 2024 10:1 2am 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 August 17, 2024 10:12am Essential hypertension August 17, 2024 1 0:12am Hyperlipidemia August 17, 2024 10:1 2am Peripheral arterial disease August 17, 2 025 10:12am Type 2 diabetes mellitus August 17, 2024 10:12am Chief Complaint Admit Date LUMBAR SPINE June 09, 2024 8:51am Xray room 5 June 09, 2024 9:41am Pain July 11, 2024 1 2:26pm LUMBAR SPINE July 18, 2024 7 :30am 6 M FU August 17, 2024 10:1 2am 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 August 24, 2024 9:1 2am 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 August 24, 2024 9:4 2am INT LAB ORDERS September 01, 2024 10: 36am Chief Complaint Admit Date Pain July 11, 2024 1 2:26pm LUMBAR SPINE July 18, 2024 7 :30am 6 M FU August 17, 2024 10:1 2am 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 August 24, 2024 9:1 2am 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 August 24, 2024 9:4 2am INT LAB ORDERS September 01, 2024 10: 36am 1 M FU per October 06, 2024 9:2 0am CAD WITH PVC, [place] October 30, 2024 6: 54am CAD WITH PVC, LEXISC[place] October 30, 2024 3: 00pm Reason for Visit Admit Date Adjacent segment disease of lumbar spine with history of fusion procedure July 18, 2024 7:30am Spinal stenosis of lumbar re gion with neurogenic claudication July 18, 2024 7:30am Heart palpitations August 17, 2024 10:1 2am 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 August 17, 2024 10:12am Essential hypertension August 17, 2024 1 0:12am Hyperlipidemia August 17, 2024 10:1 2am Peripheral arterial disease August 17, 2 025 10:12am Type 2 diabetes mellitus August 17, 2024 10:12am ASCVD (arteriosclerotic cardiovascular d isease) October 06, 2024 9:20am Frequent PVCs October 06, 2024 9:2 0am Essential hypertension October 06, 2024 9:20am Hyperlipidemia October 06, 2024 9:2 0am Type 2 diabetes mellitus October 06 9:20am Chief Complaint Admit Date 1 M FU per MH October 06, 2024 9:2 0am CAD WITH PVC, [place] October 30, 2024 6: 54am CAD WITH PVC, TIMISC[place] October 30, 2024 3: 00pm LUMBAR SPINE January 24, 2025 12 :48pm Room 3 January 24, 2025 1: 13pm Reason for Visit Admit Date ASCVD (arteriosclerotic cardiovascular d isease) October 06, 2024 9:20am Frequent PVCs October 06, 2024 9:2 0am Essential hypertension October 06, 2024 9:20am Hyperlipidemia October 06, 2024 9:2 0am Type 2 diabetes mellitus October 06 9:20am Reason for Referral Specialty Diagnoses / Procedures Referred By Contac t Referred To Contact Audiology Diagnoses Hearing loss, unspecified hearing loss type, unspecified laterality Ervin Anderson MD [address] [place], [place] [id number] [facility] [address] [place] [address] Referral ID Status Reason Start Date Expiration Date Visits Re quested Visits Authorized [id number] Closed 06/22/2023 06/21/2024 1 1 Specialty Diagnoses / Procedures Referred By Kolton blancas Referred To Contact Otolaryngology Diagnoses Hearing loss, unspecified hearing loss type, unspecified laterality Shell Siddiqui MD [address] [place] [address] Ervin Anderson MD [address] [address] Referral ID Status Reason Start Date Expiration Date Visits Requested Visits Authorized [id number] Pending Review Specialty Services Required/Pat ient's Best Interest 3 05/10/2024 1 1 Additional Source Comments (unrecognized sect ion and content) No Status Records FoundNo Status Records FoundNo Status Records FoundNo Status Records FoundNo Status Records FoundNo Status Records FoundNo Status Records FoundNo Status Records Found INFORMATION SOURCE (unrecogn ized section and content) DATE CREATED AUTHOR 04/04/2018 [facility] DATE CREATED AUTHOR AUTHOR'S ORGANIZ ATION 04/28/2018 [facility] DATE CREATED AUTHOR AUTHOR'S ORGANIZ ATION 04/28/2018 [facility] DATE CREATED AUTHOR AUTHOR'S ORGANIZ ATION 06/09/2022 [facility] ([place]) DATE CREATED AUTHOR AUTHOR'S ORGANIZ ATION [facility] DATE CREATED AUTHOR AUTHOR'S ORGANIZ ATION 06/27/2023 [facility] DATE CREATED AUTHOR AUTHOR'S ORGANIZ ATION 05/16/2024 [facility] DATE CREATED AUTHOR AUTHOR'S ORGANIZ ATION 04/27/2025 [facility] Goals (unrecognized section and content) Goals may be documented in a n alternate sectionGoals may be documented in an alternate sectionGoals may be documented in an alternate sectionGoals may be documented in an alternate sectionGoals may be documented in an alternate sectionGoals may be documented in an alternate sectionGoals may be documented in an alternate sectionGoals may be documented in an alternate sectionGoals may be documented in an alternate section No data available for this section No data available for this sectionGoals may be documented in an alternate sectionGoals may be documented in an alternate sectionGoals may be documented in an alternate sectionGoals may be documented in an alternate sectionGoals may be documented in an alternate sectionGoals may be documented in an alternate sectionGoals may be documented in an alternate sectionGoals may be documented in an alternate sectionGoals may be documented in an alternate section Care Team (unrecognized sect ion and content) Care Team Personnel Name: BISI MARTINEZ DO Member Role: Primary Care Physician Address: Address: [address] [place] [address] [address] [place] [address]- Care Team Related Persons Name: AYESHA HODGES Address: Home [address] [place] [address] Care Team Personnel Name: BISI MARTINEZ DO Member Role: Primary Care Physician Address: Address: [address] [place] [address] [address] [place] [address]- Care Team Related Persons Name: AYESHA HODGES Address: Home [address] [place] [id number] Care Teams (unrecognized sec tion and content) Team Status: Active Member Role Status Dates Dr. Bisi Martinez DO Family Provider Active Dr. Bisi Martinez DO Primary Care Provider Active Team Status: Inactive Member Role Status Dates Dr. Bisi Martinez DO Primary Care Provider, Referr ing Provider Active Franchesca Moreira FILM PROJECTOR OPERATOR, FILM PROJECTOR OPERATOR-C Attending Provider Active Team Status: Active Member Role Status Dates Dr. Bisi Martinez DO Primary Care Provider Active Dr. Perez Smith MD Attending Provid er, Referring Provider, Other Provider Active Team Status: Active Member Role Status Dates Dr. Bisi Martinez DO Primary Care Provider Active Dr. Perez Smith MD Attending Provider, Referring Provider Active Team Status: Inactive Member Role Status Dates Dr. Bisi Martinez DO Primary Care Provider Active Dr. Perez Smith MD Attending Provider, Referring Provider Active Team Status: Inactive Member Role Status Dates Dr. Bisi Martinez DO Primary Care Provider Active SHERLY Hernandez Attending Provider, Referring Provide r Active Team Status: Inactive Member Role Status Dates Dr. Bisi Martinez DO Primary Care Provider Active Franchesca Moreira FILM PROJECTOR OPERATOR, FILM PROJECTOR OPERATOR-C Attending Provider, Referring P rovider Active Team Status: Inactive Member Role Status Dates Dr. Bisi Martinez DO Primary Care Provider Active Dr. Chava Lea MD Attending Provider Active Team Status: Active Member Role Status Dates Dr. Bisi Martinez DO Family Provider Active Dr. Shell Siddiqui MD Primary Care Provider Active Team Status: Inactive Member Role Status Dates Dr. Bisi Martinez DO Primary Care Provider, Referr ing Provider Active Dr. Shell Siddiqui MD Attending Provider Active Team Status: Inactive Member Role Status Dates Dr. Bisi Martinez DO Primary Care Pr ovider, Attending Provider, Referring Provider Active Team Status: Inactive Member Role Status Dates Dr. Shell Siddiqui MD Primary Care Pro vider, Attending Provider, Referring Provider Active Team Status: Inactive Member Role Status Dates Dr. Shell Siddiqui MD Primary Care Provider Active Franchesca Moreira NP, FILM PROJECTOR OPERATOR-C Attending Provider, Referring P rovider Active Team Status: Inactive Member Role Status Dates Dr. Shell Siddiqui MD Primary Care Provider Active Dr. Nando Chávez MD Attending Provider, Referring Provider Active Team Status: Inactive Member Role Status Dates Dr. Bisi Martinez DO Referring Provider Active Franchesca Moreira FILM PROJECTOR OPERATOR, FILM PROJECTOR OPERATOR-C Attending Provider Active Dr. Shell Siddiqui MD Primary Care Provider Active Team Status: Inactive Member Role Status Dates Dr. Shell Siddiqui MD Primary Care Provider Active Dr. Zi Richard MD Attending Provider, Referring Provider Active Field Irrigation Worker Relationship Specialty Start Date End Date Shell Siddiqui MD [address] [place] [address] PCP - General Internal Medicine 05/11/23 Team Status: Inactive Member Role Status Dates Dr. Shell Siddiqui MD Primary Care Provider Active Dr. Michael Matta MD Attending Provider Active Field Irrigation Worker Relationship Specialty Start Date End Date Shell Siddiqui MD [address] [place] [address] PCP - General Internal Medicine 05/11/23 Field Irrigation Worker Relationship Specialty Start Date End Date Shell Siddiqui MD [address] [place] [address] PCP - General Internal Medicine 05/11/23 Team Status: Inactive Member Role Status Dates Dr. Shell Siddiqui MD Primary Care Provider, Referri ng Provider Active Franchesca Moreira FILM PROJECTOR OPERATOR, FILM PROJECTOR OPERATOR-C Attending Provider Active Team Status: Inactive Member Role Status Dates Dr. Shell Siddiqui MD Primary Care Provider, Referri ng Provider Active Dr. Alexandr Hopkins MD Attending Provider Active Team Status: Active Member Role Status Dates Dr. Shell Siddiqui MD Primary Care Provider, Referri ng Provider Active Dr. Alexandr Hopkins MD Attending Provider, Other Provi hannah Active Team Status: Active Member Role Status Dates Dr. Shell Siddiqui MD Primary Care Provider Active Franchesca Moreira FILM PROJECTOR OPERATOR, FILM PROJECTOR OPERATOR-C Attending Provider, Referring Sindhu fritz Active Team Status: Active Member Role Status Dates Dr. Shell Siddiqui MD Primary Care Provider Active Franchesca Moreira FILM PROJECTOR OPERATOR, FILM PROJECTOR OPERATOR-C Referring Provider, Other Provi hannah Active Dr. Michael Matta MD Attending Provider Active Team Status: Active Member Role Status Dates Dr. Shell Siddiqui MD Primary Care Provider Active Franchesca Moreira FILM PROJECTOR OPERATOR, FILM PROJECTOR OPERATOR-C Attending Provider Active Field Irrigation Worker Relationship Specialty Start Date End Date Shell Siddiqui MD [address] [place] [address] PCP - General Internal Medicine 05/13/24 Mau Palencia MD Cardiology 04/24/16 Field Irrigation Worker Relationship Specialty Start Date End Date Shell Siddiqui MD [address] [place] [address] PCP - General Internal Medicine 05/13/24 Mau Palencia MD Cardiology 04/24/16 Field Irrigation Worker Relationship Specialty Start Date End Date Shell Siddiqui MD [address] [place] [address] PCP - General Internal Medicine 05/13/24 Mau Palencia MD Cardiology 04/24/16 Field Irrigation Worker Relationship Specialty Start Date End Date Shell Siddiqui MD [address] [place] [address] PCP - General Internal Medicine 05/13/24 Mau Palencia MD Cardiology 04/24/16 Team Status: Active Member Role Status Dates Dr. Shell Siddiqui MD Primary Care Provider Active Team Status: Inactive Member Role Status Dates Dr. Shell Siddiqui MD Primary Care Provider Active Start: May 09, 2024 End: May 09, 2024 FILM PROJECTOR OPERATOR. Juani Rivas Attending Provider Active Star t: May 09, 2024 End: May 09, 2024 FILM PROJECTOR OPERATOR. Juani Rivas Referring Provider Active Star t: May 09, 2024 End: May 09, 2024 Team Status: Inactive Member Role Status Dates Dr. Shell Siddqiui MD Primary Care Provider Active Start: June 09, 2024 End: June 09, 2024 Dr. Shell Siddiqui MD Referring Provider Active Start: June 09, 2024 End: June 09, 2024 Dr. Yandel Mccarthy MD Attending Provider Active Start: June 09, 2024 End: June 09, 2024 Team Status: Inactive Member Role Status Dates Dr. Shell Siddiqui MD Primary Care Provider Active Start: June 09, 2024 End: June 09, 2024 Dr. Michael Matta MD Attending Provider Active S tart: June 09, 2024 End: June 09, 2024 Team Status: Inactive Member Role Status Dates Dr. Shell Siddiqui MD Primary Care Provider Active Start: July 11, 2024 End: July 11, 2024 Dr. Yandel Mccarthy MD Attending Provider Active Start: July 11, 2024 End: July 11, 2024 Dr. Yandel Mccarthy MD Referring Provider Active Start: July 11, 2024 End: July 11, 2024 Team Status: Inactive Member Role Status Dates Dr. Shell Siddiqui MD Primary Care Provider Active Start: July 18, 2024 End: July 18, 2024 Dr. Shell Siddiqui MD Referring Provider Active Start: July 18, 2024 End: July 18, 2024 Dr. Yandel Mccarthy MD Attending Provider Active Start: July 18, 2024 End: July 18, 2024 Team Status: Inactive Member Role Status Dates Dr. Shell Siddiqui MD Primary Care Provider Active Start: August 17, 2024 End: August 17, 2024 Dr. Shell Siddiqui MD Referring Provider Active Start: August 17, 2024 End: August 17, 2024 Dr. Alexandr Lizarraga MD Attending Provider Active Start: August 17, 2024 End: August 17, 2024 Team Status: Inactive Member Role Status Dates Dr. Shell Siddiqui MD Primary Care Provider Active Start: August 24, 2024 End: August 24, 2024 Dr. Alexandr Lizarraga MD Attending Provider Active Start: August 24, 2024 End: August 24, 2024 Dr. Alexandr Lizarraga MD Referring Provider Active Start: August 24, 2024 End: August 24, 2024 Team Status: Active Member Role Status Dates Dr. Shell Siddiqui MD Primary Care Provider Active Start: August 24, 2024 Dr. Michael Matta MD Attending Provider Active S tart: August 24, 2024 Dr. Alexandr Lizarraga MD Referring Provider Active Start: August 24, 2024 Team Status: Active Member Role Status Dates Dr. Shell Siddiqui MD Primary Care Provider Active Start: September 01, 2024 Dr. Alexandr Lizarraga MD Attending Provider Active Start: September 01, 2024 Dr. Alexandr Lizarraga MD Referring Provider Active Start: September 01, 2024 Team Status: Inactive Member Role Status Dates Dr. Shell Siddiqui MD Primary Care Provider Active Start: September 01, 2024 End: September 01, 2024 Dr. Alexandr Lizarraga MD Attending Provider Active Start: September 01, 2024 End: September 01, 2024 Dr. Alexandr Lizarraga MD Referring Provider Active Start: September 01, 2024 End: September 01, 2024 Team Status: Inactive Member Role Status Dates Dr. Shell Siddiqui MD Primary Care Provider Active Start: October 02, 2024 End: October 02, 2024 Dr. Robby Garvin MD Attending Provider Active Start: October 02, 2024 End: October 02, 2024 Dr. Robby Garvin MD Referring Provider Active Start: October 02, 2024 End: October 02, 2024 Team Status: Inactive Member Role Status Dates Dr. Shell Siddiqui MD Primary Care Provider Active Start: October 06, 2024 End: October 06, 2024 Dr. Shell Siddiqui MD Referring Provider Active Start: October 06, 2024 End: October 06, 2024 Dr. Alexandr Lizarraga MD Attending Provider Active Start: October 06, 2024 End: October 06, 2024 Team Status: Inactive Member Role Status Dates Dr. Shell Siddiqui MD Primary Care Provider Active Start: October 30, 2024 End: October 30, 2024 Dr. Alexandr Lizarraga MD Attending Provider Active Start: October 30, 2024 End: October 30, 2024 Dr. Alexandr Lizarraga MD Referring Provider Active Start: October 30, 2024 End: October 30, 2024 Team Status: Active Member Role Status Dates Dr. Shell Siddiqui MD Primary Care Provider Active Start: October 30, 2024 Dr. Michael Matta MD Attending Provider Active S tart: October 30, 2024 Team Status: Active Member Role Status Dates Dr. Shell Siddiqui MD Primary Care Provider Active Start: October 30, 2024 Dr. Alexandr Lizarraga MD Referring Provider Active Start: October 30, 2024 Dr. Alexandr Lizarraga MD Other Provider Active St art: October 30, 2024 Dr. Michael Matta MD Attending Provider Active S tart: October 30, 2024 Team Status: Active Member Role/Relationship Status Dates Dr. Shell Siddiqui MD Primary Care Provider Active Team Status: Inactive Member Role/Relationship Status Dates Dr. Shell Siddiqui MD Primary Care Provider Active Start: October 02, 2024 End: October 02, 2024 Dr. Robby Garvin MD Attending Provider Active Start: October 02, 2024 End: October 02, 2024 Dr. Robby Garvin MD Referring Provider Active Start: October 02, 2024 End: October 02, 2024 Team Status: Inactive Member Role/Relationship Status Dates Dr. Shell Siddiqui MD Primary Care Provider Active Start: October 06, 2024 End: October 06, 2024 Dr. Shell Siddiqui MD Referring Provider Active Start: October 06, 2024 End: October 06, 2024 Dr. Alexandr Lizarraga MD Attending Provider Active Start: October 06, 2024 End: October 06, 2024 Team Status: Inactive Member Role/Relationship Status Dates Dr. Shell Siddiqui MD Primary Care Provider Active Start: October 30, 2024 End: October 30, 2024 Dr. Alexandr Lizarraga MD Attending Provider Active Start: October 30, 2024 End: October 30, 2024 Dr. Alexandr Lizarraga MD Referring Provider Active Start: October 30, 2024 End: October 30, 2024 Team Status: Active Member Role/Relationship Status Dates Dr. Shell Siddiqui MD Primary Care Provider Active Start: October 30, 2024 Dr. Michael Matta MD Attending Provider Active S tart: October 30, 2024 Team Status: Active Member Role/Relationship Status Dates Dr. Shell Siddiqui MD Primary Care Provider Active Start: October 30, 2024 Dr. Alexandr Lizarraga MD Referring Provider Active Start: October 30, 2024 Dr. Alexandr Lizarraga MD Other Provider Active St art: October 30, 2024 Dr. Michael Matta MD Attending Provider Active S tart: October 30, 2024 Team Status: Active Member Role/Relationship Status Dates Dr. Shell Siddiqui MD Primary Care Provider Active Start: January 24, 2025 Dr. Shell Siddiqui MD Referring Provider Active Start: January 24, 2025 SHERLY Bertrand Attending Provider Active Star t: January 24, 2025 Team Status: Inactive Member Role/Relationship Status Dates Dr. Shell Siddiqui MD Primary Care Provider Active Start: January 24, 2025 End: January 24, 2025 Dr. Michael Matta MD Attending Provider Active S tart: January 24, 2025 End: January 24, 2025 Team Status: Inactive Member Role/Relationship Status Dates Dr. Shell Siddiqui MD Primary Care Provider Active Start: January 24, 2025 End: January 24, 2025 Dr. Shell Siddiqui MD Referring Provider Active Start: January 24, 2025 End: January 24, 2025 SHERLY Bertrand Attending Provider Active Star t: January 24, 2025 End: January 24, 2025 Reason for Visit (unrecogniz ed section and content) Reason Comments Hearing Loss Hearing lossNew Pt Specialty Diagnoses / Procedures Referred By Contac t Referred To Contact Otolaryngology Diagnoses Hearing loss, unspecified hearing loss type, unspecified laterality Shell Siddiqui MD [address] [place] [address] Ervin Anderson MD [address] [address] Referral ID Status Reason Start Date Expiration Date Visits Requested Visits Authorized [id number] Pending Review Specialty Services Required/Pat ient's Best Interest 3 05/10/2024 1 1 Reason Comments Cough Congestion x 5 days Reason Comments Results Source Comments (unrecognize d section and content) In the event this informatio n is protected by the Federal Confidentiality of Alcohol and Drug Abuse Patient Records regulations: The Federal rules restrict any use of the information to criminally investigate or prosecute any alcohol or drug abuse patient.[facility] the event this information is protected by the Federal Confidentiality of Alcohol and Drug Abuse Patient Records regulations: The Federal rules restrict any use of the information to criminally investigate or prosecute any alcohol or drug abuse patient.[facility] the event this information is protected by the Federal Confidentiality of Alcohol and Drug Abuse Patient Records regulations: The Federal rules restrict any use of the information to criminally investigate or prosecute any alcohol or drug abuse patient.[facility] the event this information is protected by the Federal Confidentiality of Alcohol and Drug Abuse Patient Records regulations: The Federal rules restrict any use of the information to criminally investigate or prosecute any alcohol or drug abuse patient.[facility] FOR RECORDS PERTAINING TO PATIENTS WHO ARE OR HAVE BEEN ENROLLED IN A CHEMICAL DEPENDENCY/SUBSTANCEABUSE PROGRAM, SOME INFORMATION MAY BE OMITTED. This clinical summary was aggregated from multiple sources. Caution should be exercised in using it in the provision of clinical care. This summary normalizes information from multiple sources, and as a consequence, information in this document may materially change the coding, format and clinical context of patient data. In addition, data may be omitted in some cases. CLINICAL DECISIONS SHOULD BE BASED ON THE PRIMARY CLINICAL RECORDS. [facility] [employer] [facility]. provides no warranty or guarantee of the accuracy or completeness of information in this document.
[2025-05-14] MEDS: Lactated Ringers 1,000 ML 15 ML IV (06:12)
[2025-05-14] MEDS: Magnesium 1 GM over 15 mins IV (06:13)
--- NOTE | 2025-05-14 07:03 | PRE.ANES_ITS ---
ASA Classification* ASA Classification ASA Classification: 2 Assessment & Plan Anesthesia* Anesthesia Assessment Anesthesia Assessment: Discussed sedation and/or anesthesia options, risks, benefits, and alternatives with patient/parents/legal guardian/POA. Questions invited. The patient/parents/legal guardian/POA seems to understand and agrees to proceed with anesthesia plan. Reviewed the physical assessment, medical history, allergy history and patient home medications list prior to surgery/procedure/anesthetic and documented any changes. Performed airway and anesthesia risk assessments. Anesthesia Type Anesthesia Type: General History Source History Obtained from:: Patient and Chart Anesthesia Focused Assessment* Temperature: 97.6 F Pulse Rate: 57 Blood Pressure: 128/61 Respiratory Rate: 16 Pulse Ox: 99 Oxygen Delivery Method: Room Air Airway Assessment Mouth opens: >3 cm Mallampati Score: II Teeth Condition: Dentures Neck Range of motion (ROM): Full ROM Labs Anesthesia Preop lab: CBC WBC, (4.4-11.0) 9.4 K/mm3 05/01/25, 09:00 RBC, (4.6-6.2) 4.84 M/mm3 05/01/25, 09:00 Hgb, (13.0-16.5) 14.7 g/dL 05/01/25, 09:00 Hct, (40-54) 44.7 % 05/01/25, 09:00 Plt Count, (150-450) 240 K/mm3 05/01/25, 09:00 CHEMISTRY Potassium, (3.3-5.1) 4.3 mmol/L 05/01/25, 09:00 Sodium, (133-145) 140 mmol/L 05/01/25, 09:00 Magnesium, (1.5-2.2) 2.0 mg/dL 05/01/25, 09:00 Phosphorus, (2.5-4.9) 3.2 mg/dL 11/12/21, 06:41 BUN, (4-19) 17 mg/dL 05/01/25, 09:00 Creatinine, (0.70-1.20) 0.92 mg/dL 05/01/25, 09:00 Glucose, (70-99) 123 mg/dL H 05/01/25, 09:00 POC Glucose, (74-106) 165 mg/dL H Today, 05:59 TSH, (0.300-4.200) 1.670 uIU/mL 09/01/24, 10:44 COAG PT, (11.7-14.9) 13.4 SECONDS 07/11/24, 12:30 Pre-Assessment Diagnosis/Proposed Procedure Planned Operative Procedure(s): 360 lumbar fusion L4-5, revision posterior spine instrumented fusion L4-5 and L5-S1. 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 When Was Last Pacemaker Check QUESTION #4 FULL TEXT: You/Your Family Experience fever (hyperthermia) with Anesthesia Last Oral Intake Last Oral intake: Last Oral Intake NPO since 03:30 05/14/25 06:15 Meds taken in AM with sips of Yes 05/14/25 06:15 water? 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 Female No 04/30/25 08:32 HX of Motion Sickness No 04/30/25 08:32 HX of N/V After Surgery No 04/30/25 08:32 Non-Smoker Yes 04/30/25 08:32 Duration of Surgery greater Yes 04/30/25 08:32 than 60 minutes Number of Risk Factors 2 04/30/25 08:32 PONV Score Moderate Risk 04/30/25 08:32 Height & Weight Height & Weight: Anesthesia: Height & Weight Height 5 ft 10 in 05/14/25 06:15 Weight: 75.6 kg 05/14/25 06:15 Body Mass Index (BMI) 23.9 05/14/25 06:15 Respiratory Assessment Respiratory Assessment - street light mechanic: Respiratory Tract Infection Hx - street light mechanic Hx Respiratory Tract Infection No 04/30/25 08:32 STOP Sleep Apnea STOP Sleep Apnea - street light mechanic: STOP Sleep Apnea - street light mechanic Hx Hypertension Yes: CONTROLLED WITH MED 04/30/25 08:32 Hx Sleep Apnea No 04/30/25 08:32 CPAP No 04/30/25 08:32 BIPAP No 04/30/25 08:32 Do you snore loudly (louder No 04/30/25 08:32 than talking or can be heard Do you often feel tired/ No 04/30/25 08:32 fatigued/ sleepy during daytime? Has anyone observed you stop No 04/30/25 08:32 breathing during sleep? STOP Results Negative 04/30/25 08:32 QUESTION #5 FULL TEXT : Do you snore loudly (louder than talking or can be heard through closed doors)? 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 Specify any problems Hx of Preganancy in last 3 N/A 04/30/25 08:32 Months Nurse Filling Out Transfusion NBUCHER 04/30/25 08:32 & Questions: Date: 04/30/25 04/30/25 08:32 Time: 08:33 04/30/25 08:32 Patient unable to answer at this time (ie. confused, unrespo /Reproduction History /Reproductive History - street light mechanic: /Reproductive Hx- street light mechanic Hx Now No 04/30/25 08:32 Gestational Age (in weeks): EDC: Hx Hx Para Hx Section SAB No 04/30/25 08:32 Does the father of the baby or his family experience fever w Father of the baby Malignant Hypertension history comment Active Medications Active Medications: Current Medications Generic Name Dose Route Start Last Admin Trade Name Zhang PRN Reason Stop Dose Admin Acetaminophen 1,000 mg 05/14/25 07:30 05/14/25 06:13 Acetaminophen 500 Mg Tablet PO 05/14/25 07:31 1,000 mg PREOP ONE Administration Cefazolin Sodium 2 gm/ Sodium 110 mls @ 150 mls/hr 05/14/25 07:30 Chloride IV 05/14/25 08:13 INTRAOP ONE Tranexamic Acid 1,000 mg/ 110 mls @ 440 mls/hr 05/14/25 07:30 Sodium Chloride IV 05/14/25 07:44 INTRAOP ONE Tranexamic Acid 1,000 mg/ 110 mls @ 440 mls/hr 05/14/25 07:30 Sodium Chloride IV 05/14/25 07:44 INTRAOP ONE Magnesium Sulfate 1 gm/ 102 mls @ 408 mls/hr 05/14/25 07:30 05/14/25 06:13 Dextrose IV 05/14/25 07:44 408 mls/hr PREOP ONE Administration Lactated Ringer's 1,000 mls @ 15 mls/hr 05/14/25 05:45 05/14/25 06:12 IV 15 mls/hr .Q48H CRISTY Administration Insulin Human Lispro 1 - 6 unit 05/14/25 07:30 Insulin Lispro 100 Unit/Ml Insuln.Pen SC 05/14/25 18:00 Q4H PRN PRN BG>/= 180, SEE PROTOCOL Protocol PFSH Medical History Restless legs Back pain History of hiatal hernia Gastric reflux History of edema History of heart attack History of Holter monitoring Wears hearing aid Wears glasses Wears dentures Arthritis High cholesterol Dietary restriction Diverticulosis Former smoker History of pain when walking History of echocardiogram History of stress test Cardiology follow-up encounter History of irregular heartbeat NSVT (nonsustained ventricular tachycardia) Type 2 diabetes mellitus Essential hypertension Peripheral arterial disease History of non-ST elevation myocardial infarction (NSTEMI) 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 Lumbar stenosis Chronic back pain Overweight (BMI 25.0-29.9) Hyperlipidemia Hypertension Home Medications ?Medication ?Instructions ?Recorded ?Last Taken ?Type amlodipine 5 mg tablet 5 mg PO BID htn 04/16/1707/08 03:30 History fosinopril 20 mg tablet 20 mg PO DAILY htn 04/16/17 05/14/25 03:30 History multivitamin 1 tab PO DAILY VITAMIN 04/1605/13/25 History aspirin 81 mg tablet,delayed 81 mg PO QDAY heart healt h 01/06/18 05/10/25 History release (Adult Aspirin Regimen) rosuvastatin 10 mg tablet 10 mg PO DAILY CHOLESTEROL 0 10/17/21 05/13/25 History metoprolol tartrate 50 mg tablet 50 mg PO BID HEART #6 0 tabs 04/27/22 05/14/25 03:30 Rx fiber 1 tab PO DAILY constipation 09/29/24 05/13/25 History clopidogrel 75 mg tablet 75 mg PO DAILY blood thinner 04/30/25 05/06/25 History pantoprazole 20 mg tablet,delayed 20 mg PO QDAY GERD # 90 tabs 05/01/25 05/13/25 Rx release (Protonix) Allergy/AdvReac Type Severity Reaction Status Date / Time atorvastatin (From Lipitor) AdvReac Intermediate Myalgias Verified 05/14/25 05:59 Family History Father , of cancer Myocardial infarction, Onset Age: 70 Cancer kidney Mother , age 66 Bleeding in brain due to brain aneurysm Brother Myocardial infarction, Onset Age: 62 CAD (coronary artery disease) Surgical History History of wisdom tooth extraction History of colonoscopy History of cardiac catheterization History of esophagogastroduodenoscopy (EGD) H/O bilateral cataract extraction History of back surgery S/P femoral-femoral bypass surgery Stented coronary artery (~09/21/03) History of left heart catheterization (~04/02/22) Social History household members: spouse current occupational status: employed current occupation: [employer] (formerly [employer]) Smoking Status: Former smoker quit date: 06/14/01 pack-years: 20 Electronic Cigarette Use: not used how long ago did patient quit smokin alcohol intake: never substance use type: does not use do you feel safe at home: Yes Review of Systems (Anesthesia) ROS Narrative System reviewed and no additional complaints, except as documented.
--- NOTE | 2025-05-14 07:19 | PCM.HP.BLA ---
History and Physical Date of Admission: 05/14/25 MR#: [id number] Acct: [id number] Name: MERRICK BRYAN Rep #: [id number] : 1945 Provider: Dr. Yandel Mccarthy MD Age/Sex: 79/M [place] [facility] [place] Status: Signed Intake Vital Signs 01/25/2512:58 04/15/2511:20 05/04/2508:49 Height 5 ft 10 in 5 ft 10 in 5 ft 10 in Weight: 160 lb BMI 22.9 Intake Visit Reasons: lumbar spine Chief Complaint: Lumbar spine Pre op Accompanied by: Is patient in pain?: Yes Pain scale (1-10): 6 Allergies atorvastatin (From Lipitor) Adverse Reaction (Intermediate, Verified 05/04/25 08:53) Myalgias Medications ?Medication ?Instructions ?Recorded ?Confirmed ?Type amlodipine 5 mg tablet 5 mg PO BID htn 04/16/17 05/04/25 History fosinopril 20 mg tablet 20 mg PO DAILY htn 04/16/17 05/04/25 History multivitamin 1 tab PO DAILY VITAMIN 04/16/17 05/04/25 History aspirin 81 mg tablet,delayed 81 mg PO QDAY heart health 01/06/18 05/04/25 History release (Adult Aspirin Regimen) rosuvastatin 10 mg tablet 10 mg PO DAILY CHOLESTEROL 10/17/21 05/04/25 History metoprolol tartrate 50 mg tablet 50 mg PO BID HEART #60 tabs 04/27/22 05/04/25 Rx fiber 1 tab PO DAILY constipation 09/29/24 05/04/25 History clopidogrel 75 mg tablet 75 mg PO DAILY blood thinner 04/30/25 05/04/25 History pantoprazole 20 mg tablet,delayed 20 mg PO QDAY GERD #90 tabs 05/01/25 05/04/25 Rx release (Protonix) Have you fallen in the past year?: No PFSH Medical History Restless legs Back pain History of hiatal hernia Gastric reflux History of edema History of heart attack History of Holter monitoring Wears hearing aid Wears glasses Wears dentures Arthritis High cholesterol Dietary restriction Diverticulosis Former smoker History of pain when walking History of echocardiogram History of stress test Cardiology follow-up encounter History of irregular heartbeat NSVT (nonsustained ventricular tachycardia) Type 2 diabetes mellitus Essential hypertension Peripheral arterial disease History of non-ST elevation myocardial infarction (NSTEMI) 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 Lumbar stenosis Chronic back pain Overweight (BMI 25.0-29.9) Hyperlipidemia Hypertension Surgical History History of wisdom tooth extraction History of colonoscopy History of cardiac catheterization History of esophagogastroduodenoscopy (EGD) H/O bilateral cataract extraction History of back surgery S/P femoral-femoral bypass surgery Stented coronary artery (~09/21/03) History of left heart catheterization (~04/02/22) Family History Father , of cancer Myocardial infarction, Onset Age: 70 Cancer kidney Mother , age 66 Bleeding in brain due to brain aneurysm Brother Myocardial infarction, Onset Age: 62 CAD (coronary artery disease) Social History household members: spouse current occupational status: employed current occupation: [employer] Smoking Status: Former smoker quit date: 06/14/01 pack-years: 20 Electronic Cigarette Use: not used how long ago did patient quit smokin alcohol intake: never substance use type: does not use do you feel safe at home: Yes HPI lumbar spine Details: This documentation accurately reflects the service provided and the decisions made by me, Dr. Yandel Mccarthy MD 05/04/25 0849. Part of today?s visit was documented by Noble Begum MA, acting as scribe. MERRICK BRYAN is a 79 year old M here today for Pre op lumbar spine for L4-5 anterior posterior fusion, L4-S1 revision posterior spine instrumented fusion, removal of previous hardware Patient states that his pain is a 6 today. He would like to go over the surgery, and wants to know what is going to be done. The patient is a 79-year-old individual presenting with lumbar disc degeneration. The patient has been experiencing significant pain in the lower back, which has progressively worsened, now affecting the hips, particularly on the left side. The pain does not radiate down the legs but is exacerbated by walking and relieved by rest. The patient has a history of cardiovascular disease with a stent placed over 20 years ago. There have been no recent stent placements, and the patient is currently on Plavix, which needs to be stopped prior to surgery. The patient is prediabetic, as confirmed by the family doctor, and is not currently on any medication for diabetes management. The patient has a history of smoking but quit over 20 years ago, which positively impacts the patient's surgical risk profile. The patient previously had a spinal cord stimulator placed, which was later removed due to ineffectiveness, leaving residual wires that prevent MRI imaging. - Musculoskeletal: Reports significant lower back pain, worse on the left side, not radiating to legs - Cardiovascular: Denies recent stent placement, reports history of stent placement over 20 years ago - Endocrine: Reports being prediabetic, denies current diabetes medication Attestation: Documentation on this patient encounter was supported using ambient scribe technology/ voice AI technology. The patient consented to recording for the purpose of documenting the encounter. Provider reviewed content of the generated note prior to signature. 01/24/25: MERRICK BRYAN is a 79 year old M here today for lumbar spine. Patient states that his pain is a 5 today in the lower back. To recall the patient has a prior L5-S1 fusion done by Dr. Marcos at the [facility] around 2018. He states that the pain goes across the lower back, and the pain has been shooting up his spine. He denies any pain that goes into his legs.. The patient says that his pain has been worsening. The pain is a constant ache. When he starts to move around the pain gets worse. Walking increasing the pain to at least a 10. Says that he can only walk for about a quarter of a mile before he has to sit down due to the worsening pain. Leaning on a cart does help relieve his symptoms. Sitting also relieves his symptoms. He has worsening pain with standing or walking. Patient went to Dr. Real for injections in his lower back. He states that the injections lasted for a couple days. His last appointment with Dr. Garvin was back in September. Says that he had 2 days of relief at most from the injection before his pain came back. He states that he isn't doing any physical therapy, but he has been working a couple hours at work. 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 He sees Dr. Chávez in [place] for vascular and Dr. Lizarraga for cardiology in [place]. History of prediabetes, says that his last A1c was 5.7 done earlier this year. No smoking. History of a bilateral groin incision from bypass surgery no other abdominal scarring. Takes Plavix. HPI from Dr. Mccarthy 07/18/24: MERRICK BRYAN is a 78 year old M here today for a followup on his lumbar spine. He states that he continues to have pain and denies any changes. He denies any numbness, tingling or radiating pain. Patient notes that his pain is across his entire low back and then travels up on his right sided low back. Patient denies any recent injections. Patient takes tylenol and ibuprofen which is slightly helpful. He has his CT scan which is here for review. 06/09/24: MERRICK BRYAN is a 78 year old M here today for lumbar spine pain. Pt. advises he has been experiencing back pain for several years since his bypass surgery in 1998. He had been experiencing left leg pain since the bypass and has had 3 lumbar surgeries since then which were not helpful with his leg pain. He was seen by a vascular surgeon who cleaned out his femoral artery and he hasn't had left leg pain since. He continued to have low back pain and was seen by Dr. Savage who referred him Marino who recommended a spine stimulator. He had the spine stimulator for a year and a half but it was not helpful. He had the spine stimulator removed back in 2023 and had a lumbar spine steroid injection about 2 months ago which was helpful for a couple days. The leads from the stimulator were left behind but the battery pack was removed. He is unsure if he is able to have a MRI. He describes his pain as a constant dull pain with intermittent sharp twinges. The pain starts on the right side of his low back and moves across to the left the longer he is active. 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 He denies numbness, tingling or radiculopathy. Ortho Exam General General: Yes no acute distress Neurologic: Yes alert and Yes oriented x3 Psychologic: Yes reasonable and appropriate Spine SPINE TESTING CERVICAL THORACIC LUMBAR Musculoskeletal Strength 0=absent - 5=normal Details: Neurological exam of the lower extremities shows 5x5 power. Normal sensations across all dermatomes. No hyperreflexia. No clonus. No midline or paraspinal tenderness. Physical examination of the back shows 2 midline incisions well healed and a right transverse incision from stimulator placement. Coding Level of Care Code Off vis,est,level 4 Diagnoses Spinal stenosis of lumbar region with neurogenic claudication M48.062 Adjacent segment disease of lumbar spine with history of fusion procedure M51.369; Z98.1 History of lumbar fusion Z98.1 Additional Codes Intake - Is patient in pain?: Yes (1125F) Time Spent (min) 35 Assessment and Plan Assessment and Plan (1) Spinal stenosis of lumbar region with neurogenic claudication: Status: Acute (2) Adjacent segment disease of lumbar spine with history of fusion procedure: Status: Acute (3) History of lumbar fusion: Status: Acute Plan X-rays show a dextroscoliosis, a prior fusion at L5-S1 with hardware in good position, there is some multilevel disc height loss throughout the lumbar spine. Again reviewed previously done x-rays as well as recently done CT myelogram of the lumbar spine. MRI is contraindicated because of spinal cord stimulator paddle lead and wires left behind. X-ray shows subtle L4-5 grade 1 spondylolisthesis on flexion view which reduces in extension. CT myelogram from June 2024 shows bilateral lateral recess stenosis slightly worse on the left than the right at L4-5. Patient has developed adjacent segment degeneration and stenosis at the level above his previous fusion. There is significant facet arthrosis at this level. 1. Lumbar disc degeneration - The patient is scheduled for lumbar spine surgery to address the degeneration at L4-5, which is causing significant pain and mobility issues. - The plan includes stopping Plavix prior to surgery and ensuring cardiovascular clearance. 2. Cardiovascular disease - The patient has a history of stent placement and is currently on Plavix. - Cardiovascular clearance is required before proceeding with surgery, and Plavix needs to be stopped to minimize bleeding risk during the procedure. 3. Prediabetes - The patient is not on medication for prediabetes, and no immediate changes are planned. - Continued monitoring of blood glucose levels is advised. 4. History of spinal cord stimulator placement - The residual wires from the previous spinal cord stimulator prevent MRI imaging. - This will be considered in future imaging decisions. - Stop taking Plavix as advised by your doctor before the surgery. - Attend all scheduled appointments with your hat measurer and Dr. Chávez for clearance before surgery. - Monitor your blood glucose levels regularly as you are prediabetic. - Follow post-surgery instructions carefully, including physical therapy and activity restrictions. Explained imaging findings in detail. Patient is here for follow-up after exhausting nonsurgical treatment with more injections by pain management. His last injection was in September with Dr. Garvin which was not beneficial to him. Patient is ready to proceed with surgical intervention at this time. Explained that surgery would be an L4-5 fusion with revision of prior hardware. Explained the surgery in detail. Explained risks and benefits of the surgery. Patient's walking tolerance has continued to decrease with time and he is only able to walk about a quarter of a mile before he has to rest due to worsening pain. This worsening back pain with ambulation and standing has made it difficult for him to do what he wishes to do and has been decreasing his quality of life. I recommend L4-5 anterior posterior fusion with revision L4-S1 instrumentation. Discussed this procedure in detail and explained the risks, benefits and alternatives. The risks of surgery include but are not limited to infection, bleeding, injury to nerves or vessels, need for further surgery, ileus, vascular injury, visceral injury, DVT, pulmonary embolism, pneumonia, atelectasis, cardiopulmonary event, pseudoarthrosis, hardware failure, gait abnormality, adjacent segment degeneration. Discussed post-surgery restrictions in detail such as no bending, lifting, or twisting. Answered all questions to the patient?s satisfaction. Patient understands and agrees to proceed with surgery. Consent was signed. Follow up 2 weeks post operatively or sooner if pain, swelling, numbness or associated symptoms, or concerns develop. All questions answered. Patient in agreement of plan.
[2025-05-14] MEDS: Lidocaine 1% (5 ml sdv) 5 ML Vial 10 ML IV (07:49)
--- NOTE | 2025-05-14 08:10 | RAD_ITS ---
PROCEDURE: LUMBAR SPINE 2 OR 3 VIEWS 05/14/2025 REASON FOR EXAM: 360 LUMBAR FUSION L4-5, POSTERIOR FUSION L4-5 L5-S1 TECHNIQUE: Procedure Code: LANDRY Modality: DX Procedure: LUMBAR SPINE 2 OR 3 VIEWS COMPARISON: None FINDINGS: Fluoro time = 58 seconds, 28.21 mGy, 12 images. RAD/Lumbar Spine 2 or 3 Views IMPRESSION: Fluoro was provided. Reading Location: [facility]
[2025-05-14] MEDS: dexMEDEtomidine 200 MCG/2 ML ML 25.61 MCG IV (08:37)
[2025-05-14] MEDS: Lactated Ringers 2,000 ML 2000 ML IV (09:19)
[2025-05-14] MEDS: fentaNYL 100 MCG/2 ML Ampul 125 MCG IV (11:41)
[2025-05-14] MEDS: TRANEXAMIC ACID 1,000 MG/10 ML ML 2 MG IV (11:46)
[2025-05-14] MEDS: Cefazolin 1 GM/5 ML Vial 4 GM IV (11:53)
--- NOTE | 2025-05-14 12:27 | OP.PCM_ITS ---
Procedures Musculoskeletal 20xxx-29xxx: Other Procedure See Report Operative Report (Standard) Operative Information Date of Procedure: 05/14/25 Pre-Operative Diagnosis: L4-5 spondylolisthesis, stenosis with neurogenic claudication, prior L5-S1 fusion Post-Operative Diagnosis: Same Surgery/Procedure Performed: L4-5 oblique lumbar body fusion, anterior instrumentation fitness club manager: Yes Vp Celebrity Services: Connie Arce Tasks completed by first cook: Closing, Removing tissue, Implanting device, Hemostasis: Electrocautery and Retracting Type of Anesthesia: General RN Documented Start/Stop Times: Operation Date: 05/14/25 07:30 Case Time Into Pre-Op 05/14/25 05:41 Out of Pre-Op 05/14/25 07:37 Anesthesia Start 05/14/25 07:41 Into Room 05/14/25 07:41 Procedure Start 05/14/25 08:26 Procedure End 05/14/25 12:12 Anesthesia End 05/14/25 12:17 Out of Room 05/14/25 12:17 Procedure Start Time: 08:26 Procedure Stop Time: 12:12 Select all DRAINS/GRAFTS/IMPLANTS that apply: Graft Graft details: Allograft cancellous chips, autologous bone marrow aspirate from left iliac crest and Implanted device Implanted device details: DePuy cougar lateral lumbar interbody cage, 4 web 2 hole plate Estimated Blood Loss: 50 cc Specimen collected: No Description of surgery: Preoperative diagnosis: L4-5 spondylolisthesis, stenosis with neurogenic claudication, prior L5-S1 fusion Postoperative diagnosis: Same Name of procedures L4-5 oblique lumbar interbody fusion (OLIF), anterior instrumentation, minimally invasive left sided approach, lateral decubitus: ? L4-5 anterolateral spinal fusion ? L4-5 insertion of cage . L4-5 anterior instrumentation 07486 ? Bone graft aspirate left iliac crest separate incision ? Allograft cancellous chips Attending Surgeon: Dr. Yandel Mccarthy Estimated blood loss: 50 mL Anesthesia: General Complications: None Indications: Patient is a 79-year-old pleasant gentleman who has had a long history of low back pain and left worse than right lower extremity radiation, difficulty walking distances. Xrays revealed L4-5 grade 1 spondylolisthesis, prior L5-S1 fusion, CT myelogram showed L4-5 stenosis. After undergoing a prolonged period of nonoperative treatment, the patient elected to undergo surgical decompression & fusion. All surgical options were discussed with the patient including anterior and posterior approaches. All risks and benefits associated with the procedure were explained to the patient. The risks include but are not limited to infection, bleeding, injury to nerves and vessels including major vessels like IVC and aorta, persistent paresthesia, persistent pain, dural tear, need for further procedures, adjacent segment degeneration, pseudoarthrosis, hardware failure, retrograde ejaculation, paralytic ileus, etc. Procedure: The patient was identified in the preoperative holding suite using Unique patient identifiers. Skin was marked, consent was reviewed, and all questions were answered. The patient was then brought back to the operative room. A surgical timeout was performed to make sure correct procedure was being done on the correct patient and all operative room staff were on the same page. General endotracheal anesthesia was then given to the patient. Olivares catheter was inserted. The patient was then carefully positioned in right lateral decubitus position with the left side up on a regular OR table. Axillary roll was placed and all bony prominences were well- padded. Hip positioners were placed in the posterior buttocks and anterior sternal area. The surgical area was prepped and draped in usual fashion. Preoperative antibiotic was injected IV as preoperative antibiotic. A final timeout was then again done just before starting the procedure. A 2 inch incision oblique was taken in the left lower quadrant of the abdomen 2 fingerbreadths away from the iliac crest and the lower ribs. Sharp dissection with Bovie was carried out up to the fascia covering the external oblique. The external oblique, internal oblique and transversus abdominis muscles were split along the muscle fibers and retroperitoneal space was entered. Sponge sticks were utilized to move the bowel and peritoneum wgy-[id number]-way and psoas muscle was exposed staying within the retroperitoneal plane. [employer] retractor system was positioned and the retractor blade was applied onto the psoas. The interval between psoas and midline structures was developed and appropriate retractors were placed. Once adequate interval was cleared, a disc space was identified and a marker x-ray was taken. This identified the L4-5 disc level. The prepsoas interval was then traced inferiorly. Annulotomy was done with a long handled knife. Pituitary was used to remove disc material. Curettes were used to prepare the endplates. Disc space spreaders were utilized to distract and increase the disc height. Near complete discectomy was performed. Smaller disc distractors were also used to bluntly perform a contralateral annulotomy. Trials of serially increasing sizes were used. A Jamshidi needle was used to aspirate bone marrow from the left anterior iliac crest through a separate incision and this aspirate was mixed with the allograft bone chips. A Depuy [place] cage of size of the 18 x 50 x 14 mm with 15 degrees lordosis was packed with corticocancellous allograft bone chips mixed with bone marrow aspirate. This was inserted into the L4-5 disc space. AP and lateral C-arm pictures were taken to confirm good position of the cage. Some bone chips were also packed around the cages. The L4-5 segment was found to be significantly unstable and a decision was made to perform anterior instrumentation. A 2 hole 4 web plate was applied over the L4-5 interspace covering the cage, but separate from the cage. 40 mm screws were then inserted through the 2 hole plate into the L4 and L5 bodies. C-arm showed good positioning. Hemostasis was confirmed. The retractor blades were removed. Closure was done in layers with a continuous strand of # 1 Vicryl in all muscle layers. 2-0 Vicryl was used for subcutaneous tissue and 4-0 for Monocryl for the skin. Steri-Strips were applied and 4 x 4 gauze and Tegaderm were applied. Home Mortgage Disclosure Act Specialist Connie Arce PA-C. My physician assistant track coach was a vital part of this case. They were important in appropriate retraction during the case, and protection of soft tissues during the procedure. Their intimate knowledge of the case and my steps aided in safe and expedient completion of the procedure as well as appropriate position of the patient during the surgery. They were also vital in assisting with closure under my direct supervision. Surgical Findings: See operative note Complications Complications: No
--- NOTE | 2025-05-14 12:32 | PCM.POST.ANE ---
Anesthesia: Postop Eval I Current Vital Signs Temperature: 97.5 F Pulse Rate: 81 Blood Pressure: 141/80 Respiratory Rate: 16 Pulse Ox: 98 Oxygen Delivery Method: Room Air Assessment Airway patent: Yes Spontaneous unlabored respirations: Yes Mental status: Awake and Calm nausea: No Vomiting: No Anesthesia Complication: No Fluid Hydration Crystalloid volume administer (ml): 1,900 Total IV fluid infused: 1,900 Progress Note Anesthesia document: Postop Eval 1 completed: Yes
--- NOTE | 2025-05-14 12:40 | PCM.OPRPT ---
Procedures Musculoskeletal 20xxx-29xxx: Other Procedure See Report Operative Report (Standard) Operative Information Date of Procedure: 05/14/25 Pre-Operative Diagnosis: L4-5 spondylolisthesis, stenosis with neurogenic claudication, prior L5-S1 fusion Post-Operative Diagnosis: Same Surgery/Procedure Performed: L4-5 posterior spinal instrumented fusion, removal of previous hardware at L5-S1 database administration manager: Yes Rn First Assistant: Connie Arce Tasks completed by anesthesiology physician assistant: Closing, Removing tissue, Implanting device, Hemostasis: Electrocautery and Retracting Type of Anesthesia: General RN Documented Start/Stop Times: Operation Date: 05/14/25 07:30 Case Time Into Pre-Op 05/14/25 05:41 Out of Pre-Op 05/14/25 07:37 Anesthesia Start 05/14/25 07:41 Into Room 05/14/25 07:41 Procedure Start 05/14/25 08:26 Procedure End 05/14/25 12:12 Anesthesia End 05/14/25 12:17 Out of Room 05/14/25 12:17 Procedure Start Time: 08:26 Procedure Stop Time: 12:12 Select all DRAINS/GRAFTS/IMPLANTS that apply: Graft Graft details: Allograft cancellous chips and Implanted device Implanted device details: DePuy [employer] prime pedicle screw instrumentation Estimated Blood Loss: 50 cc Specimen collected: No Description of surgery: Preoperative diagnosis: L4-5 spondylolisthesis, stenosis with neurogenic claudication, prior L5-S1 fusion Postoperative diagnosis: Same Name of procedures: L4-5 posterior percutaneous pedicle screw instrumented fusion, removal of previous L5-S1 hardware, exploration of fusion, prone: ? L4-5 posterior spinal fusion 04931 ? L4-5 posterior pedicle screw instrumentation 39901 . Removal of L5-S1 instrumentation 06266 . Exploration of previous L5-S1 fusion 68253 ? Allograft cancellous chips [id number] Attending Surgeon: Dr. Yandel Mccarthy Estimated blood loss: 50 mL (total for entire case) Anesthesia: General Complications: None Description of procedure: After the anterior procedure was complete, the patient was then turned supine. The patient was then transferred to Erick table in prone position. Back was prepped and draped in usual fashion. C-arm AP view was then taken. C-arm was positioned in a way that L4 was centralized and superior endplate of was parallel to the beam. Spinous process was centered between the pedicles. Midline was marked with skin marker and lateral borders of the pedicles were also marked. Skin marker was also utilized to cait transversely across the middle of the pedicles at L4. 2 transverse paramedian incisions of 1 inch were placed. The fascia was incised vertically. Finger dissection was utilized to palpate the transverse process and facet joint. Viper Prime screws with towers were inserted and docked onto the transverse processes. This was then slowly moved medially to reach the superior articular process of L4. This was then confirmed on C-arm and then a mallet was utilized to drive the trocar into the pedicle going up to the medial wall of the pedicle on AP view. This was performed both sides. C-arm lateral view confirmed that the tip of the trocar was in the vertebral body, and the screw was advanced into the pedicle and vertebral body. Screw sizes were 7 x 55 mm at [] on both sides. Serial dilators were then used through previous transverse scar on the right and vertical paramedian incision on the left to expose the previous L5 and S1 instrumentation. Setscrews were removed. Osteotome was used to remove soft tissue and callus from the cain. Cain was then removed. L5 and S1 pedicle screws were then removed using appropriate removal instrumentation. Adequate purchase was felt, no loosening. L5-S1 interspace in the facet area was exposed to explore the fusion and adequate fusion was noticed. Decision was made to perform only L4-5 instrumentation. Through the pedicle hole at L5, 7 x 50 on the right and 7 x 45 on the left pedicle screws were placed. 55 mm precontoured titanium 5.5 mm lordotic cain on the right and 50 mm on the left were then passed through the screw extensions and reduced down to the screws with the help of Loopd Via instrumentation system on both sides. AP and lateral view of the C-arm showed good positioning of the screws and cages. Final tightening with the torque screwdriver was then completed. Luna was utilized to roughen the facet joint at L4-5 on the right side. Cancellous allograft bone chips mixed with bone marrow aspirate were then placed over this decorticated area. Hemostasis was achieved. Closure was done in layers with 0 Vicryls for the fascia, 2-0 Vicryls for the subcutaneous tissue, and Monocryl for the skin. Dermabond was applied. Dressings were applied covered with Tegaderm. The patient was then turned supine onto a hospital bed. The patient was extubated and taken to PACU in stable condition. The patient tolerated the procedure well and no complications occurred. Depuy [place] cage & Viper Prime minimally invasive pedicle screw instrumentation system was utilized in this case. No dural tear was identified intraoperatively. I was present for the entirety of the case and performed the surgery. Termite Exterminator Helper Connie Arce PA-C. My physician recycling assistant was a vital part of this case. They were important in appropriate retraction during the case, and protection of soft tissues during the procedure. Their intimate knowledge of the case and my steps aided in safe and expedient completion of the procedure as well as appropriate position of the patient during the surgery. They were also vital in assisting with closure under my direct supervision. Surgical Findings: See operative note Complications Complications: No
--- NOTE | 2025-05-14 13:49 | POSTOPAN2_ITS ---
Anesthesia Postop Eval I Sum Postop Eval Completion status Anesthesia document: Postop Eval 1 completed: Yes Anesthesia Postop Eval I Summary Anesthesia Postop Eval I Summary: Anesthesia Postop Eval I: Assessment Summary Airway patent Yes 05/14/25 12:33 ACCOUNTS [email or web address].[email or web address] Spontaneous unlabored Yes 05/14/25 12:33 ACCOUNTS SPECIALIST.[email or web address] respirations Mental status Awake,Calm 05/14/25 12:33 ACCOUNTS SPECIALIST.SJAN nausea No 05/14/25 12:33 ACCOUNTS SPECIALIST.SJAN Vomiting No 05/14/25 12:33 ACCOUNTS SPECIALIST.[email or web address] Anesthesia Postop Eval I: Fluid Summary Crystalloid volume administer 1,900 05/14/25 12:33 ACCOUNTS SPECIALIST.SJAN (ml) Colloids volume administered ( ml) Blood Product volume administered (ml) Total IV fluid infused 1,900 05/14/25 12:33 ACCOUNTS SPECIALIST.TARA Anesthesia Postop Eval I: Summary Notes Anesthesia Complication No 05/14/25 12:33 ACCOUNTS SPECIALIST.TARA Anesthesia Complication Comment: Post-operative progress note Anesthesia: Postop Eval II Evaluation Mental status: Awake and Calm Pain Level: 1 nausea: No Vomiting: No Complications Anesthesia Complication: No
--- NOTE | 2025-05-14 13:49 | PCM.POSTANE2 ---
Anesthesia Postop Eval I Sum Postop Eval Completion status Anesthesia document: Postop Eval 1 completed: Yes Anesthesia Postop Eval I Summary Anesthesia Postop Eval I Summary: Anesthesia Postop Eval I: Assessment Summary Airway patent Yes 05/14/25 12:33 PROCESSING ASSOCIATE.SJAN Spontaneous unlabored Yes 05/14/25 12:33 PROCESSING ASSOCIATE.[email or web address] respirations Mental status Awake,Calm 05/14/25 12:33 PROCESSING ASSOCIATE.SJAN nausea No 05/14/25 12:33 PROCESSING ASSOCIATE.SJAN Vomiting No 05/14/25 12:33 PROCESSING ASSOCIATE.[email or web address] Anesthesia Postop Eval I: Fluid Summary Crystalloid volume administer 1,900 05/14/25 12:33 PROCESSING ASSOCIATE.SJAN (ml) Colloids volume administered ( ml) Blood Product volume administered (ml) Total IV fluid infused 1,900 05/14/25 12:33 PROCESSING ASSOCIATE.TARA Anesthesia Postop Eval I: Summary Notes Anesthesia Complication No 05/14/25 12:33 PROCESSING ASSOCIATE.TARA Anesthesia Complication Comment: Post-operative progress note Anesthesia: Postop Eval II Evaluation Mental status: Awake and Calm Pain Level: 1 nausea: No Vomiting: No Complications Anesthesia Complication: No
--- NOTE | 2025-05-14 15:11 | PCM.PN.HOSP ---
Subjective Subjective Consult requested by Dr. Mccarthy for post-operative medical management. Feeling slightyl groggy post-op, but denies other complaints. Objective Data Objective Data Vital Signs: Vital Signs Temp Pulse Resp BP Pulse Ox O2 Del Method O2 Flow Rate 36.3 C L 84 18 146/65 H 90 Room Air 4 05/14/25 14:42 05/14/25 14:42 05/14/25 14:42 05/14/25 14:42 05/14/25 14:42 05/14/25 14:42 05/14/25 13:45 Oxygen Flow Rate (L/min) 4 Oxygen Delivery Method Room Air Weight: 78.4 kg Body Mass Index (BMI) 24.7 Intake & Output: Intake and Output for Last 24 Hours 05/12/25 05/13/25 05/14/25 23:59 23:59 23:59 Intake Total 2102 / 2102 Output Total 500 / 500 Balance 1602 / 1602 Lab / Micro Data 05/01/25 09:00 05/01/25 09:00 Labs: Laboratory Results - last 24 hr 05/14/25 05:59: POC Glucose 165 H 05/14/25 12:58: POC Glucose 171 H Micro: Microbiology 05/01/25 09:00 Swab (Method) Nasal Screen MRSA/MSSA - Final Radiography Diagnostic Testing: Radiology Impression Lumbar Spine X-Ray 05/14/25 08:10 IMPRESSION: Fluoro was provided. Reading [facility] Physical Exam Const alert and no apparent distress Constitutional Narrative: up in bed. non-toxic. afebrile. HEENT head/scalp atraumatic and moist oral mucous membranes Resp normal respiratory effort, no retractions, no use of accessory muscles and clear to auscultation bilaterally Cardio regular rate, regular rhythm, S1 normal heart sound and S2 normal heart sound GI normal to inspection, nondistended, normoactive bowel sounds, soft to palpation, non-tender and non-distended Extremity normal to inspection and no clubbing, cyanosis or edema Assessment & Plan Assessment/Plan (1) Chronic back pain: QUALIFIERS: Back pain location: low back pain Back pain laterality: midline Sciatica presence: without sciatica Qualified Code(s): M54.50 - Low back pain, unspecified; G89.29 - Other chronic pain PLAN: s/p fusion with removal of previous hardware. Mgmt per orthopaedics. PLAN: Plan CAD: remote stent to ostium in 2003. Resume clopidogrel when ok with orthopaedics. PAD: s/p bypass and stent. Follow up with vascular surgery per routine Pre-diabetes: a1c 5.9. Had weaned himself off medications in the past. Glucose here 165 to 171. Start glucose checks with sliding scale. I do not anticipate any change to his homegoing regimen. HTN: continue amlodipine and metoprolol HLP: continue statin. VTE prophylaxis: per orthopaedics. Thank you for the consult. The hospitalist service will follow along with you. Charges/Coding Visit Charges Inpatient E&M: 27928 Subs Hosp L2
[2025-05-14] MEDS: Ensure Surgery 237 ML LIQUID PO (16:22)
[2025-05-14] MEDS: 0.9% Saline Lock 10 ML Syringe IV ×2 (20:13→23:54)
[2025-05-14] MEDS: 0.9% Normal Saline (250mL Bag) 250 ML 15 ML IV (20:14)
[2025-05-14] MEDS: Cefazolin 2 GM in 0.9% Normal Saline (100mL Bag) 100 ML IV (20:16)
--- NOTE | 2025-05-14 20:31 | NURSING ---
pt walked in the ibrahim. tolerated well
[2025-05-14] MEDS: Senna/Docusate Sodium 1 Tablet 2 TABLET PO (21:59)
[2025-05-15 03:36] VITALS: BP 155/68; PULSE 80; RESP 16; TEMP 36.9; O2SAT 97
[2025-05-15] MEDS: Cefazolin 2 GM in 0.9% Normal Saline (100mL Bag) 100 ML IV (03:39)
[2025-05-15] MEDS: 0.9% Saline Lock 10 ML Syringe IV (06:08)
[2025-05-15 06:15] LABS: Hematocrit 40.4 % (40-54); Hemoglobin 13.6 g/dL (13.0-16.5); Immature Granulocytes Count 0.070 X10^3/uL (0.0-0.0); Mean Corp Hgb Conc 33.7 g/dL (32-36); Mean Corpuscular Volume 91.6 fL (80-94); Mean Platelet Vol. 9.4 fl (6.2-12.0); NRBC Flagged by Analyzer 0 % (0-5); POSITIVE DIFFERENTIAL YES; Platelet Count 222 K/mm3 (150-450); RBC Distribution Width CV 13.5 % (11.6-14.6); RBC Distribution Width SD 45.7 fl (35.1-43.9); Red Blood Count 4.41 M/mm3 (4.6-6.2); White Blood Count 17.7 K/mm3 (4.4-11.0)
[2025-05-15 06:21] LABS: Differential Indicated SCAN CRITERIA MET
[2025-05-15 06:36] LABS: Anion Gap 15 (5-15); BUN 16 mg/dL (4-19); BUN/Creat Ratio 15.6 RATIO (10-20); Calcium,Total 9.1 mg/dL (7.6-11.0); Carbon Dioxide 21.9 mmol/L (21.0-32.0); Chloride 104 mmol/L (98-108); Estimated Creatinine Clearance 61.03 ml/min (50-250); Glucose 122 mg/dL (70-99); Potassium 4.0 mmol/L (3.3-5.1)
--- NOTE | 2025-05-15 07:00 | RAD_ITS ---
PROCEDURE: LUMBAR SPINE 2 OR 3 VIEWS 05/15/2025 REASON FOR EXAM: S/P LUMBAR FUSION TECHNIQUE: Procedure Code: RADSPLL Modality: DX Procedure: LUMBAR SPINE 2 OR 3 VIEWS COMPARISON: None FINDINGS: Lumbar spine two views. There is fusion hardware at L4-5 which appears intact. Degenerative disc disease is present from T12-L3 and at L5-S1. Stimulator wires are visible in the posterior soft tissues. Vascular calcifications are noted. RAD/Lumbar Spine 2 or 3 Views IMPRESSION: Hardware in position. Reading Location: [facility]
[2025-05-15 08:46] VITALS: BP 145/65; PULSE 77; RESP 16; TEMP 37.1; O2SAT 94
[2025-05-15] MEDS: Senna/Docusate Sodium 1 Tablet 2 TABLET PO (08:49)
[2025-05-15 08:50] VITALS: BP 145/65; PULSE 77
--- NOTE | 2025-05-15 10:40 | PCM.PROGNOTE ---
Subjective Subjective Patient seen and examined with his nurse by his bedside. His was by his bedside and he was working with PT/OT. He had no active complaints. Pain is well controlled. Review of systems is otherwise negative. Objective Data Objective Data Vital Signs: Vital Signs Temp Pulse Resp BP Pulse Ox O2 Del Method O2 Flow Rate 98.8 F 77 16 145/65 H 94 Room Air 4 05/15/25 08:46 05/15/25 08:50 05/15/25 08:46 05/15/25 08:50 05/15/25 08:46 05/15/25 08:50 05/14/25 13:45 Oxygen Flow Rate (L/min) 4 Oxygen Delivery Method Room Air Weight: 172 lb 13.478 oz Body Mass Index (BMI) 24.7 Intake & Output: Intake and Output for Last 24 Hours 05/13/25 05/14/25 05/15/25 23:59 23:59 23:59 Intake Total 3452.75 / 3452.75 110 / 110 Output Total 500 / 500 Balance 2952.75 / 2952.75 110 / 110 Lab / Micro Data 05/15/25 05:55 05/15/25 05:55 Labs: Laboratory Results - last 24 hr 05/14/25 12:58: POC Glucose 171 H 05/14/25 16:24: POC Glucose 181 H 05/14/25 21:56: POC Glucose 190 H 05/15/25 05:55: WBC 17.7 H, RBC 4.41 L, Hgb 13.6, Hct 40.4, MCV 91.6, MCH 30.8, MCHC 33.7, RDW Std Deviation 45.7 H, RDW Coeff of Alphonso 13.5, Plt Count 222, MPV 9.4, Immature Gran % (Auto) 0.400, Neut % (Auto) 81.7 H, Lymph % (Auto) 8.7 L, [place] % (Auto) 9.0, Eos % (Auto) 0.1, Baso % (Auto) 0.1, Absolute Neuts (auto) 14.5 H, Absolute Lymphs (auto) 1.54, Nucleated RBC % 0, Sodium 141, Potassium 4.0, Chloride 104, Carbon Dioxide 21.9, Anion Gap 15, BUN 16, Creatinine 1.03, Estim Creat Clear Calc 61.03, Est GFR (MDRD) Non-Af 74, BUN/Creatinine Ratio 15.6, Glucose 122 H, Calcium 9.1 05/15/25 06:06: POC Glucose 132 H Micro: Microbiology 05/01/25 09:00 Swab (Method) Nasal Screen MRSA/MSSA - Final Radiography Diagnostic Testing: Radiology Impression Lumbar Spine X-Ray 05/14/25 08:10 IMPRESSION: Fluoro was provided. Reading Location: [facility] Physical Exam Const alert, oriented x3 and no apparent distress General Appearance: cooperative HEENT normocephalic, head/scalp atraumatic, moist oral mucous membranes and oropharynx normal Eyes PERRL Neck supple Lymph Lymphatic: no lymphedema noted Cardio regular rate, regular rhythm, S1 normal heart sound, S2 normal heart sound and no murmurs GI normal to inspection, nondistended, normoactive bowel sounds, soft to palpation and non-tender Extremity normal capillary refill and no calf tenderness General Extremity: no tenderness to palpation of joints or extremities Skin Skin Narrative: intact dressing over lower back. Neuro no focal motor deficits Motor Exam: general weakness Psych thought process normal and cooperative Appearance: appropriate Assessment & Plan Assessment/Plan (1) History of lumbar fusion: (2) Spinal stenosis of lumbar region with neurogenic claudication: (3) Frequent PVCs: (4) ASCVD (arteriosclerotic cardiovascular disease): PLAN: Plan #Severe spinal stenosis s/p L4-5 oblique lumbar body fusion and anterior instrumentation today is POD 1 management as per primary service spine surgery PT/OT on board. Fall precautions incentive spirometry #CAD s/p stents: on aspirin and plavix as well as high intensity statin #Glucose intolerance A1C is 5.9. Not on any meds. On ISS. Accuchecks ACHS #Hypertension: on amlodipine and metoprolol as well as lisinopril #Hyperlipidemia: on statin DVT prophylaxis: as per primary service orthopedics. Charges/Coding Visit Charges Inpatient E&M: 56666 Subs Hosp L2
--- NOTE | 2025-05-15 11:25 | CASEMGMT ---
Addendum entered by Nancy Infante 05/15/25 11:56: Dx:360 lumbar fusion LACE:2 6-Clicks:24 Medical record reviewed and patient evaluated for identification of discharge planning needs. Based on this review, at this time criteria are not present to indicate a need for discharge planning. Will remain available to assist with discharge planning needs as identified or requested. Original Note: RN CM into pt room, pt sitting up in chair dressed with at bedside. Pt states he has been ambulating without a device but he does have 2 walkers at home as well as a w/c. Pt is able to assist pt as needed. Pt denies any homegoing needs at this time.
--- NOTE | 2025-05-15 12:27 | DCINST_ITS ---
Discharge Instructions DC O2, CPAP, BIPAP needs Home O2 Discharge instructions: No Follow Up Care Test Results: Test results from this visit will be discussed in further detail at your follow- up appointment, if applicable. Discharge Plan Admission Admit Date/Time: 05/14/25 05:24 Attending Provider: Yandel Mccarthy Primary Care Provider: Raquel Siddiqui Consulting Providers: Bridgett Washington Instructions Patient Instructions: Lumbar Fusion Dc Additional Instructions / Restrictions: Keep Tegaderm and gauze clean and dry. If Tegaderm is intact, okay to shower. After 5 days remove Tegaderm and gauze and cover with a Band-Aid. Replace Band- Aid daily thereafter. No bending lifting or twisting. Follow-up in clinic in 2 weeks. Discharge Orders/Prescriptions Prescriptions: New acetaminophen 500 mg Tablet 1,000 mg PO Q8 Qty: 30 0RF methocarbamol 500 mg Tablet 750 mg PO TID PRN (Reason: pain/spasms) Qty: 30 0RF oxycodone 5 mg Tablet 2.5 - 5 mg PO Q6H PRN (Reason: pain) 7 Days Qty: 28 0RF sennosides-docusate sodium [Stimulant Laxative Plus] 8.6-50 mg Tablet 2 tab PO BID PRN (Reason: constipation) Qty: 30 0RF Continued amlodipine 5 MG tablet 5 mg PO BID Patient Comments: BLOOD PRESSURE multivitamin 1 EACH tablet 1 tab PO DAILY fosinopril 20 MG tablet 20 mg PO DAILY Patient Comments: BLOOD PRESSURE rosuvastatin 10 mg tablet 10 mg PO DAILY fiber Tablet,Chewable 1 tab PO DAILY metoprolol tartrate 50 mg tablet 50 mg PO BID Qty: 60 12RF pantoprazole [Protonix] 20 mg tablet,delayed release (DR/EC) 20 mg PO QDAY Qty: 90 3RF Held aspirin [Adult Aspirin Regimen] 81 mg tablet,delayed release (DR/EC) 81 mg PO QDAY Hold Instructions: Resume on 05/17/25. clopidogrel 75 mg tablet 75 mg PO DAILY Hold Instructions: Resume on 05/17/25. Other Ambulatory Orders: 12 Lead EKG (Routine) Location: None Selected Ordered By: Dr. Yandel Mccarthy Referrals / Follow Up: Raquel Siddiqui MD [Primary Care Provider, Internal Medicine] Disposition Disposition (needs filled in before D/C Order can be placed): Home, Self Care
[2025-05-15 13:01] VITALS: BP 158/67; PULSE 77; RESP 16; TEMP 36.9; O2SAT 96
== END 2025-05-15 13:27 | disposition home or self-care (01) | DRG 402 ==
LOC: ACINP 05:29 → MS3 12:36
PROVIDERS: Student in an Organized Health Care Education/Training Program; Admitting Provider Orthopaedic Surgery Orthopaedic Surgery of the Spine; PCP Internal Medicine; Referring Provider Orthopaedic Surgery Orthopaedic Surgery of the Spine; Visit Provider Orthopaedic Surgery Orthopaedic Surgery of the Spine
PROC: 0SG00A0 Fusion of Lumbar Vertebral Joint with Interbody Fusion Device, Anterior Approach, Anterior Column, Open Approach (ICD-10-PCS; principal; 2025-05-14 07:00)
DX: M48.062 Spinal stenosis, lumbar region with neurogenic claudication (principal); E78.00 Pure hypercholesterolemia, unspecified; I10 Essential (primary) hypertension; I73.9 Peripheral vascular disease, unspecified; M41.9 Scoliosis, unspecified; M43.16 Spondylolisthesis, lumbar region; I25.10 Atherosclerotic heart disease of native coronary artery without angina pectoris; K21.9 Gastro-esophageal reflux disease without esophagitis; R73.03 Prediabetes; G89.29 Other chronic pain; Z95.5 Presence of coronary angioplasty implant and graft; Z87.891 Personal history of nicotine dependence; M51.369 Other intervertebral disc degeneration, lumbar region without mention of lumbar back pain or lower extremity pain; M51.360 Other intervertebral disc degeneration, lumbar region with discogenic back pain only; I49.3 Ventricular premature depolarization; Z79.82 Long term (current) use of aspirin; Z79.899 Other long term (current) drug therapy; Z79.02 Long term (current) use of antithrombotics/antiplatelets; Z98.1 Arthrodesis status
CPT/HCPCS: 36415; 72100; 76000; 80048; 80053; 82248; 82962; 83036; 83735; 85025; 86850; 86900; 86901; 87081; 93005; 97162; 97165; C1713; A4216; J2405; J3475